=== PATIENT | female | born 1955 | race Caucasian/White ===

== ENCOUNTER → 2017-06-26 15:21 | Outpatient (CLI) | payer OTHER, SELFPAY ==
--- NOTE | 2017-06-26 15:24 | HPBI_ITS ---
MAMMOGRAPHY - BILATERAL SCREENING REASON FOR EXAM: Female, 61 years old. Routine annual screening examination. PERTINENT HISTORY: Non-contributory. TECHNIQUE: Digital bilateral breast jacklyn (3D mammographic acquisition) in the CC and MLO projections. 2-D mediolateral oblique (MLO) and craniocaudad (CC) views of both breasts were obtained. CAD: Full Field Digital Mammography with Computer Added Detection was performed. COMPARISON: Comparison is made with prior study dated June 08, 2016 and May 19, 2015. FINDINGS: Breast Composition: There are scattered areas of fibroglandular density. There are no dominant masses or suspicious calcifications. No other significant abnormalities are identified. There has been no significant change since the prior study. HPBI/SCREENING MAMM (CAD), BILAT IMPRESSION: Stable bilateral screening mammogram. Yearly follow-up mammogram recommended. (A) ASSESSMENT CATEGORY: BIRADS Category 1: Negative. A letter regarding these results will be sent to the patient by the facility within 30 days. Approximately 10% of breast cancers are not detected by mammography. A normal mammogram should not delay biopsy of a clinically suspicious abnormality. [id number] Electronically Signed: Jalen Montgomery MD at 8:07 EST Tel [phone], Service support ,
== END ==
PROVIDERS: Visit Provider Obstetrics & Gynecology
DX: Z12.31 Encounter for screening mammogram for malignant neoplasm of breast (principal)
CPT/HCPCS: 77063; 77067

== ENCOUNTER → 2017-06-29 11:59 | Outpatient (CLI) | payer OTHER, SELFPAY ==
--- NOTE | 2017-06-29 12:02 | RAD_ITS ---
STUDY: X-RAY - UNILATERAL RIBS ( RIGHT ) WITH CHEST REASON FOR EXAM: Female, 61 years old. Right lower anterior rib pain following a fall. TECHNIQUE - RIBS: 4 view(s) of the ribs. TECHNIQUE - CHEST: Single PA view of the chest. COMPARISON: Comparison is made with prior chest radiograph dated October 31, 2014. FINDINGS - RIBS: Normal visualized ribs without a demonstrated fracture. FINDINGS - CHEST: The lungs are clear and expanded. There is no demonstrated pleural abnormality. Normal size heart. Normal mediastinum and lizzy. Normal visualized pulmonary arteries. Normal visualized aortic arch and descending thoracic aorta. Normal visualized thoracic spine. Normal visualized ribs, clavicles, and shoulders. There is no demonstrated abnormality of the visualized soft tissue structures of the upper abdomen. RAD/Ribs Uni Min 3V w/PA Chest IMPRESSION: RIBS: Normal x-ray examination of the ribs. CHEST: Normal x-ray examination of the chest. Electronically Signed: Jalen Montgomery MD at 12:41 EST Tel [phone], Service support ,
--- NOTE | 2017-06-29 12:02 | RAD_ITS ---
STUDY: X-RAY - LEFT TIBIA AND FIBULA REASON FOR EXAM: Female, 61 years old. Pain following a fall. TECHNIQUE: AP and lateral view(s) of the tibia and fibula were obtained. COMPARISON: None. FINDINGS: Normal visualized tibia. Normal visualized fibula. The soft tissue structures are unremarkable. RAD/Tibia & Fibula 2 Views IMPRESSION: Normal x-ray examination of the tibia and fibula. Electronically Signed: Jalen Montgomery MD at 12:40 EST Tel [phone], Service support ,
--- NOTE | 2017-06-29 12:02 | RAD_ITS ---
STUDY: X-RAY - LEFT KNEE REASON FOR EXAM: Female, 61 years old. Pain following a fall. TECHNIQUE: 3 view(s) of the knee. COMPARISON: None. FINDINGS: Normal visualized distal femur. Normal visualized proximal tibia and fibula. Normal proximal tibiofibular articulation. Normal medial femorotibial compartment. Normal lateral femorotibial compartment. Normal patellofemoral articulation. The soft tissue structures are unremarkable. RAD/Knee 3 Views IMPRESSION: Normal x-ray examination of the knee. Electronically Signed: Jalen Montgomery MD at 12:39 EST Tel [phone], Service support ,
== END ==
PROVIDERS: Visit Provider Physician Assistant
DX: S80.02XA Contusion of left knee, initial encounter (principal); S20.211A Contusion of right front wall of thorax, initial encounter; S80.12XA Contusion of left lower leg, initial encounter
CPT/HCPCS: 71101; 73562; 73590

== ENCOUNTER 2017-07-06 06:38 | Emergency (ER) | payer OTHER, SELFPAY ==
[2017-07-06 06:38] VITALS: BP 161/110; PULSE 78; RESP 20; TEMP 36.6; O2SAT 96; BMI 28.0
[2017-07-06] MEDS: Ondansetron 4 MG/2 ML Vial IV (06:57)
--- NOTE | 2017-07-06 06:57 | ED.DCSUM_ITS ---
- ER Visit Summary Date of Service: 07/06/17 Chief Complaint: Pain that she localizes to the right costal margin near the epigastrium that awoke her from sleep at 0100 History of Present Illness: The patient is a 61 F who presents with pain that is localized to the right upper quadrant. It somewhat radiates to the back. She apparently had pork chops last evening. The pain awoke her at 0100. She states that took her breath away. She has no history of PE or DVT. She has no risk factors. She denies any leg pain, swelling discoloration. She does complain of nausea without vomiting diarrhea. She denies fever or chills. She denies cough or dyspnea on exertion. On June 29Monday, she fell forward landing on her outstretched upper extremities and abdomen. This occurred at work. [facility] and had x-rays, which she was told were negative for fracture or any abnormality. She was told every 10 minutes she should rest and she did that for 2 days. She continued to have pain. She now presents because acute severe pain that awoke her from sleep. There is no history of any recent or recurrent trauma. Past medical history of GERD, hypercholesterolemia and depression based on review of records. Past surgical history is remarkable for back ?3 in carpal tunnel. Physical Examination: Patient appears uncomfortable. Blood pressure is 161/ 110. The remainder of her vital signs are markable. She is afebrile. HEENT exam is unremarkable. Heart is regular without murmur, gallop or rub. S1 and S2 are normal. Lungs are clear to auscultation with good movement of air bilaterally. There is no crepitus or subcutaneous air noted. There is no discomfort with AP pressure to the sternum. There is significant tenderness in right upper quadrant with a clinical Stewart sign. There is no CVA tenderness noted. There is no outward signs of trauma i.e. contusion, hematoma, ecchymosis. Nose abdominal surgical scars were noted. There is no asymmetry, swelling, discoloration, leg vein distention, palpable cords or tenderness along the distribution of the deep venous system. Test Results: Pending at the time of this dictation Emergency Department Course and Treatment: IV was established and she was medicated with 4 mg of morphine and 4 mg of Zofran IV push. With history of having pork chops etc. for dinner and the fact that she was awakened at 0100 with severe right upper quadrant pain with radiation towards her back concerned this may represent biliary colic/cholecystitis. Clinically there is no evidence of rib fracture. I.e. crepitus discomfort with AP pressure sternum subcutaneous air etc. Furthermore there is no point rib tenderness to palpation. Will obtain an ultrasound of the right upper quadrant which can evaluate for hepatic injury i.e. laceration hematoma and cholelithiasis. Recent ultrasound was chosen accuracy for cholelithiasis is 95% versus CAT scan which is 75%. And is as accurate/sensitive for hepatic injury. Treatment Plan: The results of laboratory bodies and ultrasound right upper quadrant Disposition: To be determined by oncoming physician, Dr. Justino Tapia Impression: 1. Acute right upper quadrant abdominal pain 2. Recent history of fall and blunt trauma This note was generated with [employer] dictation software. It may contain incorrect words, spelling, and punctuation that were not noted in review of the chart prior to signing ED Disposition - Plan for ED Patient: Chief Complaint: Fall Referrals: Dennis Alvarenga [Primary Care Provider] -
--- NOTE | 2017-07-06 07:01 | US_ITS ---
STUDY: ABDOMINAL ULTRASOUND - RIGHT UPPER QUADRANT REASON FOR VISIT: Female, 61 years old. Right upper quadrant pain. TECHNIQUE: Ultrasound evaluation of the right upper quadrant was performed with real-time and static benítez-scale imaging. TECHNICAL QUALITY: Adequate. COMPARISON: Comparison is made with prior ultrasound of the abdomen dated May 30, 2013. FINDINGS: Liver: The liver measures 16.2 cm. There is increased echogenicity consistent with fatty infiltration. The bile ducts are within normal limits. There is hepatic color flow. The direction of portal flow is hepatopetal. There is no demonstrated mass lesion. Gallbladder: Normal distended gallbladder. The gallbladder wall measures 2.4 mm. There is a negative sonographic Stewart's sign. There is no pericholecystic fluid. There are no gallstones. Common Bile Duct (C.B.D.): The common bile duct is moderately dilated and measures 7.7 mm. Pancreas: Normal size of the head, body of the pancreas. The tail portion is obscured due to overlying bowel gas. There is normal echogenicity of the pancreas. There is no demonstrated pancreatic mass or cyst. Right Kidney: Normal size of the right kidney. The right kidney measures 9.7 cm x 4.9 cm x 6.2 cm. Normal renal cortex. The right cortex measures 1.7 cm. There is no demonstrated renal mass or cyst. There is no right hydronephrosis. US/Gallbladder IMPRESSION: Fatty infiltration of the liver. Minimally dilated common bile duct. Electronically Signed: Jalen Montgomery MD at 8:40 EST Tel [phone], Service support ,
[2017-07-06 07:02] LABS: Absolute Lymphocyte Count 1.77 X10^3/ul (0.83-4.51); Absolute Neutrophil Count 4.3 X10^3/uL (2.0-7.7); Basophil# 0.03 X10^3/uL; Basophil% 0.4 % (0-1); Eosinophil# 0.35 X10^3/uL; Eosinophils% 5.1 % (0-5); Hemoglobin 12.6 g/dl (12.0-15.0); Lymphocyte # 1.77 X10^3/ul (4.0); Lymphocyte % 25.7 % (19-41); Mean Corp Hgb Conc 32.3 g/gl (32-36); Mean Corpuscular Hgb 29.8 pg (27.0-32.0); Mean Corpuscular Volume 92.2 fL (81-99); Monocyte# 0.45 X10^3/uL; Monocyte% 6.5 % (0-10); Neutrophil # 4.29 X10^3/uL (2.7-7.7); Neutrophil % 62.2 % (47-70); Platelet Count 292 K/mm3 (150-450); RBC Distribution Width SD 43.5 fl (35.1-43.9); Red Blood Count 4.23 M/mm3 (4.2-5.4); White Blood Count 6.9 K/mm3 (4.4-11.0)
[2017-07-06 07:03] LABS: POSITIVE COUNT NO; POSITIVE DIFFERENTIAL NO; POSITIVE MORPHOLOGY NO
[2017-07-06 07:18] LABS: AST(SGOT) 21 U/L (15-37); Alanine Aminotransfer ALT/SGPT 21 U/L (13-56); Albumin, Serum 3.3 g/dL (3.2-5.0); Alkaline Phosphatase 119 U/L (45-117); Anion Gap 9 (5-15); BUN 16 mg/dL (7-18); BUN/Creat Ratio 23.3 RATIO (10-20); Bilirubin, Direct 0.11 mg/dL (0.00-0.30); Calcium,Total 8.3 mg/dL (8.5-10.1); Chloride 105 mmol/L (98-107); Creatinine, Serum 0.69 mg/dL (0.55-1.02); EST Glomerular Filtration Rate 92 mL/min (>60); Est Glom Filt Rate - Afr Amer 112 mL/min (>60); Estimated Creatinine Clearance 80.15 ml/min; Glucose 98 mg/dL (74-106); Lipase 176 U/L (73-393); Protein, Total 7.3 g/dL (6.4-8.2); Sodium Level 141 mmol/L (136-145)
[2017-07-06 08:21] VITALS: BP 126/76; PULSE 70; RESP 18; O2SAT 98
--- NOTE | 2017-07-06 08:56 | CT_ITS ---
STUDY: CTA CHEST REASON FOR EXAM: Female, 61 years old. Right-sided chest pain following a recent fall. RADIATION DOSAGE (If Supplied By Facility): CTDIvol = ( 15.35 ) mGy, DLP = ( 851.58 ) mGycm TECHNIQUE: The examination was performed with the intravenous administration of 75CC ml of Isovue 370 contrast material. Post-processing of the angiographic images was performed, with multiplanar reformation and 3D reconstruction. Individualized dose optimization techniques were used for this CT. COMPARISON: None. FINDINGS: Normal enhancement of the main pulmonary artery and right and left pulmonary arteries. Normal enhancement of the bilateral peripheral pulmonary arteries. There is no demonstrated pulmonary embolism. Normal thoracic aorta and visualized great vessels. There is no demonstrated aortic dissection. Normal heart and pericardium. Normal mediastinum. Normal hilar regions. Normal visualized trachea and bronchi. The lungs are well expanded. There is evidence of diffuse emphysematous changes with multiple bullous formation in both lungs. There is evidence of increased markings at the lung bases with evidence of bibasilar coalescence as well as in the posterior aspect of the lingular segment of the left upper lobe suggestive of atelectasis. There is a 5.5 mm noncalcified nodule in the peripheral aspect of the right middle lobe. This is seen on axial image #55. Normal pleura. Normal chest wall structures. There are degenerative changes of thoracic spine. Normal visualized upper abdomen. CT/CTA Chest W/WO Contrast IMPRESSION: Bibasilar atelectasis. Emphysematous changes. 5.5 mm noncalcified nodule in the peripheral aspect of the right middle lobe. Electronically Signed: Jalen Montgomery MD at 9:48 EST Tel [phone], Service support ,
[2017-07-06 08:58] VITALS: O2SAT 96
--- NOTE | 2017-07-06 10:07 | ED.VISSUMM ---
- ER Visit Summary Date of Service: 07/06/17 Chief Complaint: [Addendum to initial dictation by Dr. Flores] History of Present Illness: The patient is a 61 F whose care was turned over to me in the morning awaiting lab results and gallbladder ultrasound results. Patient apparently woke up at 1 AM with discomfort in the upper abdomen and pain that radiated through to her back. Patient tells me that her pain seemed to be worse with breathing and did not hurt as bad if she took small shallow breaths. She denied any nausea or vomiting to me and she denied any fevers. Patient states that she did eat pork chops yesterday for dinner. She is never had problems with her gallbladder. Patient denies any urinary symptoms. She denies recent travel or surgery. Patient does give a history of a fall about a week ago landing on her right ribs. Patient was evaluated with x-rays of her chest and ribs as well as her knees which were unremarkable at that time.] Physical Examination: [HEENT-PERRLA, EOMI. Cranial nerves II through XII grossly intact. TMs clear. Mucous membranes moist. No adenopathy. Cardiovascular-regular rate and rhythm without murmur or ectopy Lungs-clear to auscultation, chest wall stable without crepitus or subcu emphysema. Patient did have some tenderness over the right lower anterior chest wall into the mid axillary line that seems to reproduce most of her pain. Abdomen-normoactive bowel sounds. Patient has minimal tenderness to the right upper quadrant or epigastric area. There is no rebound, rigidity, or perineal signs. Extremities-intact ?4, normal range of motion, normal pulses, atraumatic] Test Results: [CBC with differential was normal. Chemistries unremarkable. LFTs were normal. Lipase was normal. Gallbladder ultrasound showed no evidence of kidney stones she had a minimally dilated common bile duct a 7.7 mm.] CT chest obtained showed no evidence of PE, showed emphysematous changes, nothing else acute. Patient was also incidentally noted to have a 5 mm right middle lobe nodule which patient was made aware of and advised to have it followed up with primary care physician. Emergency Department Course and Treatment: [Patient initially was medicated for pain with by Dr. Flores and on repeat exam her pain is now only about a 2 out of 10.] Treatment Plan: [This point patient will be given a prescription for [place] for pain and advised to follow-up with her primary care physician within the next 3-5 days.] Disposition: [Discharged to home in stable condition] Impression: [Abdominal pain-etiology uncertain Chest wall pain] This note was generated with [employer] dictation software. It may contain incorrect words, spelling, and punctuation that were not noted in review of the chart prior to signing ED Disposition - Plan for ED Patient: Chief Complaint: Fall Referrals: Dennis Alvarenga [Primary Care Provider] -
--- NOTE | 2017-07-06 10:11 | ED.DCSUM_ITS ---
- ER Visit Summary Date of Service: 07/06/17 Chief Complaint: [Addendum to initial dictation by Dr. Flores] History of Present Illness: The patient is a 61 F whose care was turned over to me in the morning awaiting lab results and gallbladder ultrasound results. Patient apparently woke up at 1 AM with discomfort in the upper abdomen and pain that radiated through to her back. Patient tells me that her pain seemed to be worse with breathing and did not hurt as bad if she took small shallow breaths. She denied any nausea or vomiting to me and she denied any fevers. Patient states that she did eat pork chops yesterday for dinner. She is never had problems with her gallbladder. Patient denies any urinary symptoms. She denies recent travel or surgery. Patient does give a history of a fall about a week ago landing on her right ribs. Patient was evaluated with x-rays of her chest and ribs as well as her knees which were unremarkable at that time.] Physical Examination: [HEENT-PERRLA, EOMI. Cranial nerves II through XII grossly intact. TMs clear. Mucous membranes moist. No adenopathy. Cardiovascular-regular rate and rhythm without murmur or ectopy Lungs-clear to auscultation, chest wall stable without crepitus or subcu emphysema. Patient did have some tenderness over the right lower anterior chest wall into the mid axillary line that seems to reproduce most of her pain. Abdomen-normoactive bowel sounds. Patient has minimal tenderness to the right upper quadrant or epigastric area. There is no rebound, rigidity, or perineal signs. Extremities-intact ?4, normal range of motion, normal pulses, atraumatic] Test Results: [CBC with differential was normal. Chemistries unremarkable. LFTs were normal. Lipase was normal. Gallbladder ultrasound showed no evidence of kidney stones she had a minimally dilated common bile duct a 7.7 mm. ] CT chest obtained showed no evidence of PE, showed emphysematous changes, nothing else acute. Patient was also incidentally noted to have a 5 mm right middle lobe nodule which patient was made aware of and advised to have it followed up with primary care physician. Emergency Department Course and Treatment: [Patient initially was medicated for pain with by Dr. Flores and on repeat exam her pain is now only about a 2 out of 10.] Treatment Plan: [This point patient will be given a prescription for [place] for pain and advised to follow-up with her primary care physician within the next 3- 5 days.] Disposition: [Discharged to home in stable condition] Impression: [Abdominal pain-etiology uncertain Chest wall pain] This note was generated with [employer] dictation software. It may contain incorrect words, spelling, and punctuation that were not noted in review of the chart prior to signing ED Disposition - Plan for ED Patient: Chief Complaint: Fall Referrals: Dennis Alvarenga [Primary Care Provider] -
--- NOTE | 2017-07-06 10:11 | ED.DEP ---
ED Disposition - Plan for ED Patient: Chief Complaint: Fall Instructions: ED Abdominal Pain Unkn Cause, ED Chest Pain Costochondritis Prescriptions: Hydrocodone Bitart/Apap 5-325 [[place] 5/325] 1 - 2 tab PO Q4H PRN PRN 3 Days #12 tab PRN Reason: Pain Referrals: Dennis Alvarenga [Primary Care Provider] - 3-5 Days
--- NOTE | 2017-07-06 10:14 | DCINST.ED_ITS ---
ED Disposition - Plan for ED Patient: Chief Complaint: Fall Instructions: ED Abdominal Pain Unkn Cause, ED Chest Pain Costochondritis Prescriptions: Hydrocodone Bitart/Apap 5-325 [[place] 5/325] 1 - 2 tab PO Q4H PRN PRN 3 Days #12 tab PRN Reason: Pain Referrals: Dennis Alvarenga [Primary Care Provider] - 3-5 Days
[2017-07-06 10:16] VITALS: BP 126/85; PULSE 67; RESP 20; O2SAT 97
== END 2017-07-06 10:29 | disposition home or self-care (01) ==
PROVIDERS: Emergency Provider Emergency Medicine
DX: R10.9 Unspecified abdominal pain (principal); R07.89 Other chest pain; R11.0 Nausea; K21.9 Gastro-esophageal reflux disease without esophagitis; E78.00 Pure hypercholesterolemia, unspecified; R91.1 Solitary pulmonary nodule; F32.9 Major depressive disorder, single episode, unspecified; Z87.891 Personal history of nicotine dependence
CPT/HCPCS: 71275; 76705; 80048; 80076; 83690; 85025; 96374; 96375; 99285; Q9967; A4216; J2405

== ENCOUNTER → 2017-08-10 15:46 | Outpatient (CLI) | payer OTHER, SELFPAY ==
--- NOTE | 2017-08-10 15:47 | BD_ITS ---
STUDY: DUAL ENERGY X-RAY ABSORPTIOMETRY / DXA REASON FOR EXAM: Female, 61 years old. Early menopause. Loss of height. TECHNIQUE: Bone Mineral Density (BMD) measurements of lumbar spine and bilateral hips were obtained. COMPARISON: Comparison is made with prior study dated May 19, 2015. FINDINGS: Lumbar Spine (L1-L4): g/cm2 (1.033) / T-score (-1.4) / Z-score (-0.1) Findings are suggestive of osteopenia with a moderate fracture risk. Left Femur Total: g/cm2 (0.842) / T-score (-1.3) / Z-score (-0.3) Left Femoral Neck: g/cm2 (0.814) / T-score (-1.6) / Z-score (-0.3) Right Femur Total: g/cm2 (0.741) / T-score (-2.1) / Z-score (-1.1) Right Femoral Neck: g/cm2 (0.722) / T-score (-2.3) / Z-score (-1.0) The T-Scores on the most recent prior examination were: Lumbar Spine (L1-L4): There has been improvement of bone density since the previous examination. Left Femur Total: which represents an improvement of 3.6%. Right Femur Total: which represents a worsening of 1.1%. BD/Dexa Bone Density Study IMPRESSION: The patient is considered osteopenic as outlined below according to World Naldo Organization (WHO) criteria with a moderate fracture risk. There has been improvement of bone density since the previous examination. Reference Information: The T-score is the number of standard deviations above or below the standard which is normal for young adults at their peak bone mineral density. The World Health Organization (WHO) interprets the T-scores as follows: Above -1 Normal bone density Between -1 and -2.5 Osteopenia Equal to / or below -2.5 Osteoporosis As a practical clinical guideline, osteopenia may be graded as follows: Mild -1 through -1.5 Moderate -1.6 through -2.0 Severe -2.1 through -2.4 The Z-score is the number of standard deviations above or below age-matched controls. A Z-score of less than -1.5 would be considered abnormal. References: 1. NIH Osteoporosis and Related Bone Diseases http://www.osteo.org 2. International Society for Clinical Densitometry http://www.iscd.org 3. National Osteoporosis Foundation http://www.nof.org Electronically Signed: Jalen Montgomery MD at 14:39 EDT Tel [phone], Service support ,
== END ==
DX: M81.0 Age-related osteoporosis without current pathological fracture (principal)
CPT/HCPCS: 77080

== ENCOUNTER → 2017-10-19 07:25 | Outpatient (CLI) | payer OTHER, SELFPAY ==
[2017-10-19 10:32] LABS: ALB/GLOB Ratio 0.8 RATIO (0.9-2.4); AST(SGOT) 20 U/L (15-37); Alanine Aminotransfer ALT/SGPT 28 U/L (13-56); Albumin, Serum 3.4 g/dL (3.2-5.0); Alkaline Phosphatase 111 U/L (45-117); Anion Gap 5 (5-15); BUN 13 mg/dL (7-18); BUN/Creat Ratio 21.1 RATIO (10-20); Calcium,Total 8.6 mg/dL (8.5-10.1); Chloride 107 mmol/L (98-107); Cholesterol 161 mg/dL (200); Creatinine, Serum 0.62 mg/dL (0.55-1.02); EST Glomerular Filtration Rate 104 mL/min (>60); Est Glom Filt Rate - Afr Amer 126 mL/min (>60); Globulin 4.1 g/dL (2.2-4.2); Glucose 83 mg/dL (74-106); High Density Lipoprotein 49 mg/dL; Potassium 3.9 mmol/L (3.5-5.1); Protein, Total 7.5 g/dL (6.4-8.2); Sodium Level 143 mmol/L (136-145); Triglycerides 119 mg/dL; Very Low Density Lipoprotein 24 mg/dL (5-40)
[2017-10-20 08:22] LABS: Vitamin D,25 Hydroxy 70.6 ng/mL (29.95-100.01)
== END ==
PROVIDERS: Visit Provider Family Medicine
DX: E78.00 Pure hypercholesterolemia, unspecified (principal); K21.9 Gastro-esophageal reflux disease without esophagitis; E55.9 Vitamin D deficiency, unspecified
CPT/HCPCS: 36415; 80053; 80061; 82306

== ENCOUNTER → 2018-01-09 13:41 | Outpatient (CLI) | payer OTHER, SELFPAY | PROVIDERS: Visit Provider Internal Medicine Pulmonary Disease | DX: R91.1 Solitary pulmonary nodule (principal) | CPT/HCPCS: 71250 ==

== ENCOUNTER → 2018-05-22 15:20 | Outpatient (CLI) | payer OTHER, SELFPAY ==
[2018-05-25 09:41] LABS: HPV Reflexed? NOT INDICATED
== END ==
PROVIDERS: Visit Provider Obstetrics & Gynecology
DX: Z12.4 Encounter for screening for malignant neoplasm of cervix (principal)
CPT/HCPCS: 88175; G0145

== ENCOUNTER 2018-10-30 10:07 | Emergency (ER) | payer OTHER, SELFPAY ==
[2018-10-30 09:54] VITALS: BMI 28.0
[2018-10-30 10:08] VITALS: BP 136/90; PULSE 93; RESP 16; TEMP 36.5; O2SAT 98; BMI 30.4
[2018-10-30] MEDS: Ondansetron 4 MG/2 ML Vial IV (10:40)
[2018-10-30] MEDS: 0.9% Normal Saline 1,000 ML 150 ML IV (10:40)
[2018-10-30] MEDS: Morphine 4 MG/ML Syringe IV (10:40)
[2018-10-30 10:42] VITALS: BP 150/93; PULSE 72; RESP 16; TEMP 36.8; O2SAT 95
[2018-10-30 10:59] LABS: Absolute Lymphocyte Count 1.74 X10^3/ul (0.83-4.51); Absolute Neutrophil Count 4.6 X10^3/uL (2.0-7.7); Basophil# 0.01 X10^3/uL; Basophil% 0.1 % (0-1); Eosinophil# 0.32 X10^3/uL; Eosinophils% 4.5 % (0-5); Hematocrit 41.4 % (37-47); Hemoglobin 13.7 g/dl (12.0-15.0); Lymphocyte # 1.74 X10^3/ul (4.0); Lymphocyte % 24.5 % (19-41); Mean Corp Hgb Conc 33.1 g/gl (32-36); Mean Corpuscular Hgb 29.7 pg (27.0-32.0); Mean Corpuscular Volume 89.6 fL (81-99); Monocyte# 0.39 X10^3/uL; Monocyte% 5.5 % (0-10); Neutrophil # 4.64 X10^3/uL (2.7-7.7); Neutrophil % 65.3 % (47-70); Platelet Count 280 K/mm3 (150-450); RBC Distribution Width CV 13.7 % (11.6-14.6); Red Blood Count 4.62 M/mm3 (4.2-5.4); White Blood Count 7.1 K/mm3 (4.4-11.0)
[2018-10-30 11:00] LABS: POSITIVE COUNT NO; POSITIVE DIFFERENTIAL NO; POSITIVE MORPHOLOGY NO
[2018-10-30 11:14] LABS: AST(SGOT) 19 U/L (15-37); Alanine Aminotransfer ALT/SGPT 24 U/L (13-56); Albumin, Serum 3.4 g/dL (3.2-5.0); Alkaline Phosphatase 120 U/L (45-117); Anion Gap 5 (5-15); BUN 9 mg/dL (7-18); BUN/Creat Ratio 13.2 RATIO (10-20); Bilirubin, Direct 0.11 mg/dL (0.00-0.30); Calcium,Total 9.5 mg/dL (8.5-10.1); Chloride 106 mmol/L (98-107); Creatinine, Serum 0.68 mg/dL (0.55-1.02); EST Glomerular Filtration Rate 93 mL/min (>60); Est Glom Filt Rate - Afr Amer 112 mL/min (>60); Estimated Creatinine Clearance 79.27 ml/min; Glucose 98 mg/dL (74-106); Lipase 82 U/L (73-393); Potassium 3.5 mmol/L (3.5-5.1); Protein, Total 7.4 g/dL (6.4-8.2); Sodium Level 141 mmol/L (136-145)
[2018-10-30 11:24] LABS: Lactic Acid 0.6 mmol/L (0.4-2.0)
[2018-10-30 12:35] LABS: Mucous, Urine 0 SEEN /hpf (<or=2+); Red Blood Cells-Urine 0 SEEN /hpf (0-5)
[2018-10-30 12:39] LABS: Color, Urine Yellow (Yellow); Glucose, Dipstick Normal (Normal); Ketone-Dipstick Negative (Negative); Leukocyte Esterase-Dipstick 500 /ul (Negative); Nitrite-Dipstick Negative (Negative); Occult Blood-Urine Negative /ul (Negative); Protein-Dipstick Negative (Negative); Urine Bilirubin Dipstick Negative (Negative); Urine Clarity Sl. Cloudy (Clear); Urine Urobilinogen Normal (Normal)
[2018-10-30 12:51] LABS: Bacteria RARE /hpf (None Seen); Squamous Epithelial Cells - UA 0-5 SEEN /hpf (5-10); White Blood Cells 0-5 SEEN /hpf (0-5)
--- NOTE | 2018-10-30 12:53 | CT_ITS ---
STUDY: CT ABDOMEN AND PELVIS WITH CONTRAST REASON FOR EXAM: Female, 63 years old. Diffuse abdominal pain RADIATION DOSAGE (If Supplied By Facility): CTDIvol = ( 16.49 ) mGy, DLP = ( 992.28 ) mGycm TECHNIQUE: Transaxial images were obtained from the dome of the diaphragm to the symphysis pubis without oral contrast. 100mL IV/Oral Isovue 300 was administered. Sagittal and coronal images were reconstructed. Individualized dose optimization techniques were used for this CT. COMPARISON: Chest CTA 07/06/2017. FINDINGS: 4 mm right middle lobe nodule on series 2 image 10, unchanged since July 2017. The visualized portions of the heart are within normal limits. Normal liver. Normal gallbladder and extrahepatic biliary system. There is mild splenomegaly measuring up to 13 cm. Normal pancreas. There is an indeterminate 1.5 cm left adrenal gland nodule in the lateral and a indeterminate 1.7 x 1.3 cm medial limb nodule. Normal right adrenal gland. There are bilateral renal hypodense lesions too small to characterize. No hydronephrosis. Normal visualized stomach. Normal small intestine. There is wall thickening and mild pericolonic stranding of the mid and distal descending colon and proximal sigmoid colon. Remaining bowel loops are unremarkable. No bowel obstruction.. There is non-visualization of the appendix. There is diffuse atherosclerotic calcification of the abdominal aorta, without a demonstrated aneurysm. Normal inferior vena cava. Normal retroperitoneum. There are a few shotty mesenteric lymph nodes and mild mesenteric stranding, likely reactive. The urinary bladder is underdistended. Normal abdominal wall. There is posterior fusion of the L4 and L5 vertebral bodies. Grade 1 anterolisthesis of L4 on L5. There is mild collapse of the T12 superior endplate of uncertain chronicity. Multilevel degenerative disc disease. Thoracolumbar scoliosis. CT/Abdomen/Pelvis WITH Contrast IMPRESSION: 1. Wall thickening and mild pericolonic stranding of the mid and distal descending colon and proximal sigmoid colon in keeping with colitis. No bowel obstruction. 2. Few shotty mesenteric lymph nodes are likely reactive. 3. There are indeterminate left adrenal gland nodules. Multiphase CT or MRI with adrenal protocol can be obtained for further characterization. 4. Stable 4 mm right middle lobe nodule. If High risk for developing pulmonary malignancy continued annual chest CT is recommended. If low risk, no follow-up is recommended. 5. There is mild collapse of the T12 superior endplate of uncertain chronicity. 6. Remaining chronic findings are described above. Electronically Signed: Beba Daniels, at 13:32 EDT Tel , Service support ,
[2018-10-30 13:20] VITALS: BP 133/89; PULSE 65; RESP 16; O2SAT 98
[2018-10-30 13:23] VITALS: TEMP 36.5
--- NOTE | 2018-10-30 14:48 | ED.DCSUM_ITS ---
- ER Visit Summary Date of Service: 10/30/18 Chief Complaint: Abdominal pain History of Present Illness: The patient is a 63 F whose had intermittent sharp abdominal pain for the past 2 days. She reports having diarrhea once on the . She passed some blood and mucus yesterday. She denies fever. She does report a history of IBS but has very rare flareups. Physical Examination: Vital signs unremarkable. She is afebrile. Patient is in no acute distress and is nontoxic appearing. Head and neck examination is normal. Heart is regular rate and rhythm. Palpable pulses are noted throughout. Lungs are clear with good air movement throughout. Abdomen is soft with mid abdominal tenderness. No guarding or rebound. Hypoactive bowel sounds are noted. Extremity examination is unremarkable with full range of motion. Neurologic examination reveals no focal deficits. Test Results: CBC and chemistry studies normal. Urinalysis shows no acute infection. LFTs revealed alk phos of [address] abdomen pelvis with contrast reveals wall thickening and mild pericolonic stranding of the mid to distal descending and sigmoid colon. Emergency Department Course and Treatment: Patient was initially given morphine and Zofran for pain along with IV fluids. Test results were discussed with the patient. She will be treated with a course of Cipro and Flagyl. Treatment Plan: [] Disposition: Discharge Impression: Colitis This note was generated with [employer]PT. dictation software. It may contain incorrect words, spelling, and punctuation that were not noted in review of the chart prior to signing ED Disposition - Plan for ED Patient: Disposition: Home or Assisted Living Prescriptions: Ciprofloxacin [Cipro] 500 mg PO BID #14 tablet metroNIDAZOLE [Flagyl] 500 mg PO Q6H #40 tablet Referrals: Dennis Alvarenga MD [Primary Care Provider] - 1 Week Additional Instructions: Your CT scan reveals signs of colitis, or inflammation and swelling of the intestine. Complete the full course of antibiotics. Return for worsening pain, fever, or if you have any other concerns.
[2018-10-30] MEDS: metroNIDAZOLE 500 MG Tablet PO (14:53)
[2018-10-30] MEDS: Ciprofloxacin 500 MG Tablet PO (14:53)
[2018-10-30 14:59] VITALS: BP 121/74; PULSE 62; RESP 15; O2SAT 98
== END 2018-10-30 15:00 | disposition home or self-care (01) ==
PROVIDERS: Emergency Provider Emergency Medicine; Family Provider Family Medicine; PCP Family Medicine
DX: K52.9 Noninfective gastroenteritis and colitis, unspecified (principal); Z87.891 Personal history of nicotine dependence
CPT/HCPCS: 74177; 80048; 80076; 81001; 83605; 83690; 85025; 96361; 96374; 96375; 99284; J7030; Q9967; A4216; J2405

== ENCOUNTER → 2018-11-16 14:15 | Outpatient (CLI) | payer OTHER, SELFPAY ==
[2018-10-30 10:08] VITALS: BMI 30.4
--- NOTE | 2018-11-16 14:19 | RAD_ITS ---
STUDY: X-RAY - PELVIS REASON FOR EXAM: Female, 63 years old. Polyarthropathy TECHNIQUE: One view of the pelvis was obtained. COMPARISON: None. FINDINGS: There is a non-specific bowel gas pattern. Normal visualized soft tissue structures. There is a spinal fusion at L4-L5 with laminectomy. Normal bilateral iliac wings, sacroiliac joints and visualized sacrum. Normal visualized bilateral superior and inferior pubic rami. There are degenerative changes of the pubic symphysis with articular narrowing and sclerosis. Normal ischial tuberosities. Normal visualized right femoral head. Normal right acetabulum. Normal right hip joint. Normal visualized left femoral head. Normal left acetabulum. Normal left hip joint. There is minimal calcific density at the level of the greater trochanter suggesting ligamentous calcification. RAD/Pelvis 1 or 2 Views IMPRESSION: Spinal fusion L4-L5 laminectomy. Minimal degenerative change. Electronically Signed: Katrina Hedrick MD at 17:27 EDT Tel , Service support ,
[2018-11-16 15:47] LABS: Absolute Lymphocyte Count 2.08 X10^3/ul (0.83-4.51); Basophil# 0.03 X10^3/uL; Basophil% 0.4 % (0-1); Eosinophil# 0.39 X10^3/uL; Eosinophils% 5.6 % (0-5); Hemoglobin 12.9 g/dl (12.0-15.0); Lymphocyte # 2.08 X10^3/ul (4.0); Lymphocyte % 29.7 % (19-41); Mean Corp Hgb Conc 32.3 g/gl (32-36); Mean Corpuscular Volume 89.9 fL (81-99); Mean Platelet Vol. 10.5 fl (6.2-12.0); Monocyte# 0.47 X10^3/uL; Monocyte% 6.7 % (0-10); Neutrophil # 4.02 X10^3/uL (2.7-7.7); Neutrophil % 57.5 % (47-70); Platelet Count 310 K/mm3 (150-450); RBC Distribution Width CV 13.8 % (11.6-14.6); Red Blood Count 4.45 M/mm3 (4.2-5.4)
[2018-11-16 15:53] LABS: POSITIVE COUNT NO; POSITIVE DIFFERENTIAL NO; POSITIVE MORPHOLOGY NO
[2018-11-16 16:13] LABS: ALB/GLOB Ratio 0.8 RATIO (0.9-2.4); AST(SGOT) 18 U/L (15-37); Alanine Aminotransfer ALT/SGPT 24 U/L (13-56); Albumin, Serum 3.4 g/dL (3.2-5.0); Alkaline Phosphatase 114 U/L (45-117); Anion Gap 5 (5-15); BUN 14 mg/dL (7-18); BUN/Creat Ratio 21.1 RATIO (10-20); CRP 8.35 mg/L (0.0-3.0); Calcium,Total 8.9 mg/dL (8.5-10.1); Chloride 106 mmol/L (98-107); Creatinine, Serum 0.66 mg/dL (0.55-1.02); EST Glomerular Filtration Rate 96 mL/min (>60); Est Glom Filt Rate - Afr Amer 116 mL/min (>60); Globulin 4.3 g/dL (2.2-4.2); Glucose 80 mg/dL (74-106); Protein, Total 7.7 g/dL (6.4-8.2); Rheumatoid Factor < 10.0 IU/mL (<15); Sodium Level 141 mmol/L (136-145)
[2018-11-16 16:18] LABS: Erythrocyte Sedimentation Rate 12 mm/hr (0-30)
[2018-11-19 09:51] LABS: Hepatitis B Surface Antibody Non-Reactive; Hepatitis B Surface Antigen Non-Reactive (Nonreactive); Hepatitis C Antibody Non-Reactive (Nonreactive)
[2018-11-20 12:20] LABS: ANTINUCLEAR ANTIBODIES DIRECT Negative (Negative)
[2018-11-22 11:32] LABS: CCP IgG Antibodies 7 units (0-19); HLA B27 Negative (.); Hepatitis B Core AB IgM Negative (Negative)
== END ==
PROVIDERS: Family Provider Family Medicine; PCP Family Medicine; Referring Provider Internal Medicine Rheumatology; Visit Provider Internal Medicine Rheumatology
DX: M06.4 Inflammatory polyarthropathy (principal); M15.9 Polyosteoarthritis, unspecified; K21.9 Gastro-esophageal reflux disease without esophagitis; J44.9 Chronic obstructive pulmonary disease, unspecified; M81.0 Age-related osteoporosis without current pathological fracture; K52.839 Microscopic colitis, unspecified; E78.5 Hyperlipidemia, unspecified
CPT/HCPCS: 36415; 72170; 80053; 81374; 85025; 85652; 86038; 86140; 86200; 86431; 86705; 86706; 86803; 87340

== ENCOUNTER → 2019-01-09 12:46 | Outpatient (CLI) | payer OTHER, SELFPAY ==
[2019-01-03 15:06] VITALS: BMI 30.4
--- NOTE | 2019-01-09 12:54 | CT_ITS ---
STUDY: CT CHEST/THORAX WITHOUT CONTRAST REASON FOR EXAM: Female, 63 years old. Lung nodule. RADIATION DOSAGE (If Supplied By Facility): CTDIvol = ( 13.17 ) mGy, DLP = ( 371.92 ) mGycm TECHNIQUE: Transaxial imaging was performed without the administration of intravenous contrast material. Multiplanar coronal and sagittal images were reformatted. Individualized dose optimization techniques were used for this CT. COMPARISON: CT chest without contrast January 09, 2018. FINDINGS: 4.5 mm noncalcified nodule in the inferolateral periphery of the right middle lobe on series 4 image 64, series 602 image 114 is unchanged. Intralobular emphysematous changes again seen predominantly in the apices. Stable calcified granuloma or perivascular calcification in the anterior inferolateral left lower lobe on series 4 image 67, series 602 image 127. No new infiltrate. There is no demonstrated pleural abnormality. Normal heart and pericardium. 1.75 x 1.3 x 1.15 cm right precarinal lymph node is increased in size, but also roughly maintains a fatty hilum, suggesting this is reactive. There is a stable 1 cm lymph node in the posterior aorticopulmonary window. No new adenopathy Normal hilar regions. Normal unenhanced pulmonary arteries. Stable calcification of the aortic valve annulus. There is stable mild atherosclerotic calcification of the aortic arch. There are stable multi-level degenerative changes of the thoracic spine. There is stable mild left lateral wedging at T9 and a 22 degree dextroscoliosis at that level. Stable fracture deformity at the superior T12 vertebral endplate, including a well-corticated, rounded right-sided endplate invagination that may be a benign Schmorl's node. There are stable degenerative changes at the bilateral glenohumeral articulations. There is stable 1.95 x 1.2 cm ovoid fullness of the posterior limb of the left adrenal gland, possibly an adenoma CT/Chest without Contrast IMPRESSION: 1. Stable sub-6 mm mm noncalcified nodule in the right middle lobe. Per Fleischner criteria, this does not require any further radiographic follow-up. 2. Emphysematous changes again seen as well. 3. 1.75 cm right precarinal lymph node is increased in size, but maintains some benign character and may be reactive. No other new adenopathy. 4. Stable left lateral wedging of T9 and patient's scoliosis at that level. There is also stable fracture deformity of the superior T12 vertebral endplate. Degenerative changes of the glenohumeral joint also again noted. 5. Stable 1.95 cm fullness of the posterior limb of the left adrenal gland. Electronically Signed: Bernard Castro MD at 16:38 EDT , Service support ,
== END ==
PROVIDERS: Family Provider Family Medicine; PCP Family Medicine; Referring Provider Internal Medicine Pulmonary Disease; Visit Provider Internal Medicine Pulmonary Disease
DX: R91.1 Solitary pulmonary nodule (principal)
CPT/HCPCS: 71250

== ENCOUNTER → 2019-02-05 15:26 | Outpatient (CLI) | payer OTHER, SELFPAY ==
[2019-01-03 15:06] VITALS: BMI 30.4
[2019-02-05 17:53] LABS: Absolute Lymphocyte Count 2.99 X10^3/uL (0.83-4.51); Basophil# 0.04 X10^3/uL; Basophil% 0.4 % (0-1); Eosinophil# 0.17 X10^3/uL; Eosinophils% 1.8 % (0-5); Hematocrit 41.8 % (37-47); Hemoglobin 13.2 g/dL (12.0-15.0); Lymphocyte # 2.99 X10^3/ul (4.0); Lymphocyte % 30.8 % (19-41); Mean Corp Hgb Conc 31.6 g/dL (32-36); Mean Corpuscular Hgb 29.7 pg (27.0-32.0); Mean Corpuscular Volume 94.1 fL (81-99); Mean Platelet Vol. 10.3 fl (6.2-12.0); Monocyte# 0.47 X10^3/uL; Monocyte% 4.8 % (0-10); NRBC Flagged by Analyzer 0 % (0-5); Neutrophil # 5.98 X10^3/uL (2.7-7.7); Neutrophil % 61.7 % (47-70); Platelet Count 301 K/mm3 (150-450); RBC Distribution Width CV 14.6 % (11.6-14.6); Red Blood Count 4.44 M/mm3 (4.2-5.4); White Blood Count 9.7 K/mm3 (4.4-11.0)
[2019-02-05 17:57] LABS: AST(SGOT) 14 U/L (15-37); Alanine Aminotransfer ALT/SGPT 26 U/L (13-56); Albumin, Serum 3.6 g/dL (3.2-5.0); Alkaline Phosphatase 94 U/L (45-117); Anion Gap 9 (5-15); BUN 26 mg/dL (7-18); BUN/Creat Ratio 31.3 RATIO (10-20); Calcium,Total 9.4 mg/dL (8.5-10.1); Chloride 101 mmol/L (98-107); Creatinine, Serum 0.83 mg/dL (0.55-1.02); EST Glomerular Filtration Rate 74 mL/min (>60); Est Glom Filt Rate - Afr Amer 89 mL/min (>60); Globulin 3.6 g/dL (2.2-4.2); Glucose 96 mg/dL (74-106); Potassium 4.3 mmol/L (3.5-5.1); Protein, Total 7.2 g/dL (6.4-8.2); Sodium Level 140 mmol/L (136-145)
== END ==
PROVIDERS: Family Provider Family Medicine; PCP Family Medicine; Referring Provider Internal Medicine Rheumatology; Visit Provider Internal Medicine Rheumatology
DX: M06.4 Inflammatory polyarthropathy (principal); Z79.899 Other long term (current) drug therapy; K21.9 Gastro-esophageal reflux disease without esophagitis; M15.9 Polyosteoarthritis, unspecified; J44.9 Chronic obstructive pulmonary disease, unspecified; M81.0 Age-related osteoporosis without current pathological fracture; K52.839 Microscopic colitis, unspecified; E78.5 Hyperlipidemia, unspecified
CPT/HCPCS: 36415; 80053; 85025

== ENCOUNTER → 2019-03-18 15:30 | Outpatient (CLI) | payer OTHER, SELFPAY ==
[2019-01-03 15:06] VITALS: BMI 30.4
--- NOTE | 2019-03-18 15:32 | BI_ITS ---
MAMMOGRAPHY - BILATERAL SCREENING REASON FOR EXAM: Female, 63 years old. Routine annual screening examination. PERTINENT HISTORY: Non-contributory. TECHNIQUE: Digital bilateral breast obie (3D mammographic acquisition) in the CC and MLO projections. 2-D mediolateral oblique (MLO) and craniocaudad (CC) views of both breasts were obtained. CAD: Full Field Digital Mammography with Computer Added Detection was performed. COMPARISON: Comparison is made with prior examination dated June 26, 2017 and June 08, 2016. FINDINGS: Breast Composition: There are scattered areas of fibroglandular density. There are no dominant masses or suspicious calcifications. Stable small benign-appearing bilateral axillary lymph nodes. No other significant abnormalities are identified. There has been no significant change since the prior study. BI/SCREEN MAMM (CAD) W/OBIE BILAT IMPRESSION: Stable bilateral screening mammogram. Yearly follow-up mammogram recommended. (A) ASSESSMENT CATEGORY: BIRADS Category 2: Benign. A letter regarding these results will be sent to the patient by the facility within 30 days. Approximately 10% of breast cancers are not detected by mammography. A normal mammogram should not delay biopsy of a clinically suspicious abnormality. [id number] Electronically Signed: Jalen Montgomery, at 8:30 EST , Service support ,
== END ==
PROVIDERS: Family Provider Family Medicine; PCP Family Medicine; Referring Provider Obstetrics & Gynecology; Visit Provider Obstetrics & Gynecology
DX: Z12.31 Encounter for screening mammogram for malignant neoplasm of breast (principal)
CPT/HCPCS: 77063; 77067

== ENCOUNTER → 2019-04-24 16:53 | Outpatient (CLI) | payer OTHER, SELFPAY ==
[2019-01-03 15:06] VITALS: BMI 30.4
--- NOTE | 2019-04-24 16:59 | CT_ITS ---
STUDY: CT BRAIN WITHOUT CONTRAST REASON FOR EXAM: Female, 63 years old. Right facial palsy RADIATION DOSAGE (If Supplied By Facility): CTDIvol = ( 60.81 ) mGy, DLP = ( 998.67 ) mGycm TECHNIQUE: Transaxial CT imaging of the brain was performed without administration of intravenous contrast material. Individualized dose optimization techniques were used for this CT. COMPARISON: No relevant priors. FINDINGS: Normal soft tissue structures. Normal calvarium. Normal size ventricles and extra-axial spaces for the patient''s age. Mild periventricular white matter ischemic changes. Normal basal ganglia and thalami. Normal brainstem. Normal cerebellum. There is no intracranial hemorrhage. There are no findings of an acute ischemic infarction. Normal visualized paranasal sinuses. CT/Brain/Head without Contrast IMPRESSION: Mild periventricular white matter ischemic changes. No evidence for acute bleed. If concern for acute infarct MRI recommended Electronically Signed: Sohan Cope MD at 20:04 EST , Service support ,
== END ==
PROVIDERS: Family Provider Family Medicine; PCP Family Medicine; Referring Provider Family Medicine; Visit Provider Family Medicine
DX: G51.0 Bell's palsy (principal)
CPT/HCPCS: 70450

== ENCOUNTER → 2019-05-06 15:23 | Outpatient (CLI) | payer OTHER, SELFPAY ==
[2019-04-30 12:30] VITALS: BMI 30.4
[2019-05-06 18:04] LABS: Absolute Lymphocyte Count 2.42 X10^3/uL (0.83-4.51); Absolute Neutrophil Count 3.8 X10^3/uL (2.0-7.7); Basophil# 0.04 X10^3/uL; Basophil% 0.6 % (0-1); Eosinophil# 0.27 X10^3/uL; Eosinophils% 3.9 % (0-5); Hematocrit 39.3 % (37-47); Hemoglobin 12.7 g/dL (12.0-15.0); Lymphocyte # 2.42 X10^3/ul (4.0); Lymphocyte % 34.6 % (19-41); Mean Corp Hgb Conc 32.3 g/dL (32-36); Mean Corpuscular Hgb 30.1 pg (27.0-32.0); Mean Corpuscular Volume 93.1 fL (81-99); Mean Platelet Vol. 10.1 fl (6.2-12.0); Monocyte# 0.47 X10^3/uL; Monocyte% 6.7 % (0-10); NRBC Flagged by Analyzer 0 % (0-5); Neutrophil # 3.75 X10^3/uL (2.7-7.7); Neutrophil % 53.6 % (47-70); Platelet Count 330 K/mm3 (150-450); RBC Distribution Width CV 13.9 % (11.6-14.6); RBC Distribution Width SD 47.5 fl (35.1-43.9); Red Blood Count 4.22 M/mm3 (4.2-5.4)
[2019-05-06 18:12] LABS: AST(SGOT) 14 U/L (15-37); Alanine Aminotransfer ALT/SGPT 25 U/L (13-56); Albumin, Serum 3.8 g/dL (3.2-5.0); Alkaline Phosphatase 118 U/L (45-117); Anion Gap 6 (5-15); BUN 16 mg/dL (7-18); Calcium,Total 9.1 mg/dL (8.5-10.1); Chloride 104 mmol/L (98-107); Creatinine, Serum 0.76 mg/dL (0.55-1.02); EST Glomerular Filtration Rate 81 mL/min (>60); Est Glom Filt Rate - Afr Amer 98 mL/min (>60); Globulin 3.7 g/dL (2.2-4.2); Glucose 78 mg/dL (74-106); Potassium 3.8 mmol/L (3.5-5.1); Protein, Total 7.5 g/dL (6.4-8.2); Sodium Level 139 mmol/L (136-145)
== END ==
PROVIDERS: Family Provider Family Medicine; PCP Family Medicine; Referring Provider Internal Medicine Rheumatology; Visit Provider Internal Medicine Rheumatology
DX: M06.4 Inflammatory polyarthropathy (principal); M15.9 Polyosteoarthritis, unspecified; K21.9 Gastro-esophageal reflux disease without esophagitis; J44.9 Chronic obstructive pulmonary disease, unspecified; M81.0 Age-related osteoporosis without current pathological fracture; K52.839 Microscopic colitis, unspecified; E78.5 Hyperlipidemia, unspecified; Z79.899 Other long term (current) drug therapy
CPT/HCPCS: 36415; 80053; 85025

== ENCOUNTER → 2019-06-21 08:22 | Outpatient (CLI) | payer OTHER, SELFPAY ==
[2019-04-30 12:30] VITALS: BMI 30.4
[2019-06-21 10:06] LABS: Absolute Neutrophil Count 2.8 X10^3/uL (2.0-7.7); Basophil# 0.04 X10^3/uL; Basophil% 0.7 % (0-1); Eosinophil# 0.42 X10^3/uL; Eosinophils% 7.7 % (0-5); Hematocrit 43.1 % (37-47); Hemoglobin 13.3 g/dL (12.0-15.0); Lymphocyte % 32.8 % (19-41); Mean Corp Hgb Conc 30.9 g/dL (32-36); Mean Corpuscular Hgb 28.9 pg (27.0-32.0); Mean Corpuscular Volume 93.5 fL (81-99); Mean Platelet Vol. 10.5 fl (6.2-12.0); Monocyte# 0.41 X10^3/uL; Monocyte% 7.5 % (0-10); NRBC Flagged by Analyzer 0 % (0-5); Neutrophil % 51.1 % (47-70); Platelet Count 313 K/mm3 (150-450); RBC Distribution Width CV 13.9 % (11.6-14.6); RBC Distribution Width SD 47.6 fl (35.1-43.9); Red Blood Count 4.61 M/mm3 (4.2-5.4); White Blood Count 5.5 K/mm3 (4.4-11.0)
[2019-06-21 10:13] LABS: Color, Urine Yellow (Yellow); Glucose, Dipstick Normal (Normal); Ketone-Dipstick Negative (Negative); Leukocyte Esterase-Dipstick 500 /ul (Negative); Nitrite-Dipstick Negative (Negative); Occult Blood-Urine Negative /ul (Negative); Protein-Dipstick Negative (Negative); Specific Gravity, Urine 1.005 (1.002-1.030); Urine Bilirubin Dipstick Negative (Negative); Urine Clarity Clear (Clear); Urine Urobilinogen Normal (Normal)
[2019-06-21 10:26] LABS: ALB/GLOB Ratio 0.8 RATIO (0.9-2.4); AST(SGOT) 22 U/L (15-37); Alanine Aminotransfer ALT/SGPT 26 U/L (13-56); Albumin, Serum 3.6 g/dL (3.2-5.0); Alkaline Phosphatase 106 U/L (45-117); Anion Gap 5 (5-15); BUN 11 mg/dL (7-18); BUN/Creat Ratio 16.9 RATIO (10-20); Calcium,Total 9.3 mg/dL (8.5-10.1); Chloride 106 mmol/L (98-107); Cholesterol 175 mg/dL (200); Creatinine, Serum 0.65 mg/dL (0.55-1.02); EST Glomerular Filtration Rate 98 mL/min (>60); Est Glom Filt Rate - Afr Amer 118 mL/min (>60); Globulin 4.3 g/dL (2.2-4.2); Glucose 89 mg/dL (74-106); High Density Lipoprotein 55 mg/dL; Potassium 4.1 mmol/L (3.5-5.1); Protein, Total 7.9 g/dL (6.4-8.2); Sodium Level 140 mmol/L (136-145); Triglycerides 127 mg/dL; Very Low Density Lipoprotein 25 mg/dL (5-40)
[2019-06-21 10:31] LABS: Vitamin D,25 Hydroxy 33.4 ng/mL (29.95-100.01)
== END ==
PROVIDERS: PCP Family Medicine; Referring Provider Family Medicine; Visit Provider Family Medicine
DX: Z00.00 Encounter for general adult medical examination without abnormal findings (principal); E78.00 Pure hypercholesterolemia, unspecified; E55.9 Vitamin D deficiency, unspecified
CPT/HCPCS: 36415; 80053; 80061; 81002; 82306; 85025

== ENCOUNTER → 2019-10-25 | Outpatient (CLI) | payer OTHER, SELFPAY ==
[2019-04-30 12:30] VITALS: BMI 30.4
[2019-10-25 10:41] LABS: AST(SGOT) 19 U/L (15-37); Alanine Aminotransfer ALT/SGPT 22 U/L (13-56); Albumin, Serum 3.6 g/dL (3.2-5.0); Alkaline Phosphatase 128 U/L (45-117); Bilirubin, Direct 0.13 mg/dL (0.00-0.30); Cholesterol 174 mg/dL (200); Globulin 4.3 g/dL (2.2-4.2); High Density Lipoprotein 56 mg/dL; Protein, Total 7.9 g/dL (6.4-8.2); Triglycerides 130 mg/dL; Very Low Density Lipoprotein 26 mg/dL (5-40)
== END | disposition home or self-care (01) ==
LOC: MTLAB 08:42
PROVIDERS: PCP Family Medicine; Referring Provider Family Medicine; Visit Provider Family Medicine
DX: E78.00 Pure hypercholesterolemia, unspecified (principal)
CPT/HCPCS: 36415; 80061; 80076

== ENCOUNTER → 2020-01-10 12:52 | Outpatient (CLI) | payer OTHER, SELFPAY ==
[2019-04-30 12:30] VITALS: BMI 30.4
--- NOTE | 2020-01-10 12:57 | CT_ITS ---
STUDY: CT CHEST WITHOUT CONTRAST REASON FOR EXAM: Female, 64 years old. NODULE F/U. RADIATION DOSAGE (If Supplied By Facility): CTDIvol = ( 11.85 ) mGy, DLP = ( 376.08 ) mGycm TECHNIQUE: Transaxial imaging was performed without the administration of intravenous contrast material. Multiplanar coronal and sagittal images were reformatted. Individualized dose optimization techniques were used for this CT. COMPARISON: Comparison is made with prior study dated 01/09/2019. FINDINGS: Stable 7.6 mm calcified nodule in the midportion of the right lobe of the thyroid. Stable small benign-appearing bilateral axillary lymph nodes. Mild degree of emphysematous changes in both upper lobes. There is a new 1.1 cm nodule in the peripheral lateral aspect of the right lower lobe adjacent to the pleural surface and anterior aspect of the right lobe of the liver. This is seen on axial image #62. There is no demonstrated pleural abnormality. There are calcifications of the coronary arteries. There is a 1.8 cm lymph node in the right precarinal space. This is unchanged. Stable 1 cm lymph node in the posterior aspect of the aortopulmonary window. Normal hilar regions. Normal unenhanced pulmonary arteries. There is atherosclerotic calcification of the aortic arch . There are degenerative changes of the thoracic spine. Stable 1.2 cm x 1.9 cm left adrenal adenoma. CT/Chest without Contrast IMPRESSION: There is a new 1.1 cm nodule in the lateral aspect of the right lower lobe adjacent to the anterior aspect of the right lobe of the liver as seen on axial image #62. Correlation with a PET scan is recommended. Electronically Signed: Jalen Montgomery, at 13:45 EDT , Service support ,
== END ==
PROVIDERS: Family Provider Family Medicine; PCP Family Medicine; Referring Provider Internal Medicine Pulmonary Disease; Visit Provider Internal Medicine Pulmonary Disease
DX: R91.1 Solitary pulmonary nodule (principal)
CPT/HCPCS: 71250

== ENCOUNTER → 2020-02-04 15:32 | Outpatient (CLI) | payer OTHER, SELFPAY ==
[2019-04-30 12:30] VITALS: BMI 30.4
--- NOTE | 2020-02-04 15:30 | PET_ITS ---
EXAMINATION: FDG PET CT INDICATIONS: A 64-year-old female with reported history of pulmonary nodularity. COMPARISON EXAMINATION: CT of the chest report dated 01/10/20. INDEX LESION SIZE SUV INTERPRETATION Right lower lateral lung-right lower lobe 14.2 mm (frame 148) 2.9 Fulfills quantitative criteria for viable neoplasm, histopathologic analysis recommended Mediastinum, right thoracic perihilum 20.7 mm largest (frame 173) 3.2 (max) Fulfills borderline quantitative criteria for viable neoplasm TECHNIQUE: Following the intravenous administration of 13.9 mCi of F-18 deoxyglucose via the left antecubital fossa, multiplanar image acquisitions of the neck, chest, abdomen and pelvis to level of mid thigh, obtained at one hour post radiopharmaceutical administration contemporaneously interpreted with the current CT of the neck, chest, abdomen and pelvis to level of mid thigh, dated 01/26/[address] of the chest report dated 01/10/20 reveal: SERUM GLUCOSE LEVEL: 84 mg/dl. HEIGHT: 64 inches. WEIGHT: 197 lbs. FINDINGS: 1. Focal increased glucose metabolism is defined in the right lower lateral lung-right lower lobe rendering a calculated maximum standard uptake value of 2.9. The maximal axial diameter of corresponding parenchymal density on review of CT of the chest dated 02/04/20 is 14.2 mm (AP). 2. Multifocal increased glucose metabolism extends from the superior to carinal level mediastinum-right thoracic perihilum registering a calculated maximum standard uptake value of 3.2. The maximal axial diameter of the largest individual metabolic, morphologic abnormality is 20.7 mm. 3. Normal physiologic distribution of the radiopharmaceutical is apparent in the hepatic (3.2) and splenic parenchyma, both renal units, bladder and visualized intestinal tract. Diffuse intestinal tract activity is noted throughout all four quadrants of the abdominal-pelvic retroperitoneum and mesentery consistent with normal physiologic distribution of the radiopharmaceutical. Pertinent CT findings are as follows. CHEST: Atherosclerotic calcification is defined in the thoracic aorta without evidence of dilatation, aneurysm formation. Bilateral axillary soft tissue densities with fatty hilus are non-glucose avid. There are no additional parenchymal densities-nodules defined in the right and left hemithorax with discernible increased FDG concentration. ABDOMEN AND PELVIS: Atherosclerotic calcification is defined in the abdominal aorta without evidence of dilatation, aneurysm formation. Pelvic arterial calcification is demonstrated. Right and left inguinal soft tissue densities with fatty hilus are ametabolic. A small fat-containing periumbilical hernia is noted. Calcifications are defined in the bilateral lower hemipelvis. SKELETAL: Orthopedic hardware placement is defined in the lower lumbar spine commensurate with spinal fusion operative intervention. Degenerative changes defined in the cervical, thoracic and lumbar spine demonstrate no evidence of glucose hypermetabolism. Diffuse demineralization is defined. PET/PET/CT Tumor Base -Thigh Init IMPRESSION: 1. Increased FDG distribution identified in the right lower lateral lung-right lower lobe fulfills quantitative criteria for viable neoplasm. Histopathologic analysis is recommended. (Rojo et al, Annals of Internal Medicine, 138:724, 2003). 2. The mediastinal and right thoracic perihilar increase in tracer uptake fulfills borderline quantitative criteria for malignant transformation. Histopathologic analysis may be indicated. 3. No other quantitatively significant hypermetabolic abnormalities are noted. There is no definitive scintigraphic evidence of distant metastatic disease. Electronic Signature Justino Calhoun D.O. Accurate Quantification of SUVs for this report are calculated using the exclusive [employer]. Exclusive [place]. Patent [employer]? Technology ([place].S. Patent No. [phone] [id number]). Electronically Signed: Justino Calhoun DO at 23:22 EDT Tel , Service support ,
== END ==
PROVIDERS: PCP Family Medicine; Referring Provider Nurse Practitioner Family; Visit Provider Nurse Practitioner Family
DX: R91.1 Solitary pulmonary nodule (principal)
CPT/HCPCS: 78815; A9552

== ENCOUNTER → 2020-02-20 11:51 | Outpatient (CLI) | payer OTHER, SELFPAY ==
[2019-04-30 12:30] VITALS: BMI 30.4
[2020-02-23 03:06] LABS: QNTFERON TB Mitogen Value > 10.00 IU/mL (.); QNTFERON TB Nil Value 0.03 IU/mL (.); QNTFERON TB1+ Ag Value 0.03 IU/mL (.); QNTFERON TB2+ Ag Value 0.03 IU/mL (.)
[2020-02-24 11:32] LABS: QNTIFERON TB Positive Criteria Negative (Negative)
== END ==
PROVIDERS: PCP Family Medicine; Referring Provider Internal Medicine Pulmonary Disease; Visit Provider Internal Medicine Pulmonary Disease
DX: R91.1 Solitary pulmonary nodule (principal)
CPT/HCPCS: 36415; 86480

== ENCOUNTER 2020-05-25 17:02 | Inpatient (IN) | payer OTHER, SELFPAY ==
[2019-04-30 12:30] VITALS: BMI 30.4
[2020-05-25 17:02] VITALS: BP 109/68; PULSE 92; RESP 20; TEMP 36.8; O2SAT 100; BMI 29.0
--- NOTE | 2020-05-25 17:41 | EKG12_ITS ---
Test Reason : Blood Pressure : / mmHG Vent. Rate : 098 BPM Atrial Rate : 098 BPM P-R Int : 194 ms QRS Dur : 076 ms QT Int : 346 ms P-R-T Axes : 046 014 042 degrees QTc Int : 441 ms Normal sinus rhythm Normal ECG Confirmed by HEMANTH DE LOS SANTOS, ANATOLY ([id number]), photo editor JANETH HOLDER ([id number]) on 05/27/2020 7:55:57 AM Referred By: CRISTINA Confirmed By:ANATOLY SAXENA MD
--- NOTE | 2020-05-25 17:43 | ED.DCSUM_ITS ---
History of Present Illness Chief Complaint: Shortness of Breath Detail of Chief Complaint: Palpitations, shortness of breath Informant: Patient Onset: Weeks Context: Gradual Onset Current Severity: Mild Maximum Severity: Mild Narrative: Patient presents Dr. Sandoval's office secondary to new onset atrial fibrillation. Patient is currently undergoing chemotherapy and radiation for non-small cell lung cancer. Patient states she just finished a cycle of chemo and radiation and is awaiting repeat imaging. She reports shortness of breath since the onset of her treatment. Over the past week she has had palpitations. She denies chest pain. In Dr. Sandoval's office patient's heart rate was noted to be between 130 and 150 with atrial fibrillation. Patient denies history of cardiac disease. No known history of arrhythmia. - Past Medical History (1) Non-small cell lung cancer Status: Chronic (2) High cholesterol Status: Chronic Past Medical History - Allergies and Home Meds Allergies/Adverse Reactions: Allergies No Known Allergies Allergy (Verified 05/25/20 17:04) Primary Care Physician: Dennis Alvarenga MD [Primary Care Provider] - Prior records reviewed: Yes Smoking Status: Former smoker Review of Systems General: Denies: Chills, Fever Eyes: Denies: Visual changes - bilaterally ENT: Denies: Bilateral ear pain Cardiovascular: Reports: Palpitations, Heart racing. Denies: Chest pain Respiratory: Reports: Dyspnea Gastrointestinal: Denies: Abdominal pain, Vomiting, Diarrhea Musculoskeletal: Denies: Swelling, Extremity Pain Skin: Denies: Rash Hematologic: Denies: Easy bruising, Easy bleeding Allergy: Denies: Uticaria Physical Exam Vital Signs/Narrative: Vital Signs Temp Pulse Resp BP Pulse Ox 05/25/20 17:02 98.3 F 92 20 H 109/68 100 Inital Vital Signs reviewed: Yes General: Well nourished, Well developed Head: Normocephalic Neck: Supple Cardiovascular: Irregular, Tachycardia Respiratory: No distress, CTA bilaterally Abdomen: Soft, Nontender, Normal bowel sounds Extremities: Nontender Skin: Pallor Neurological: Alert, Oriented x3 Psychological: Normal affect Diagnostic/Tx/Re-eval Chest X-Ray - ED: 1 View, Read by ED Physician, Normal, Heart, Lungs, Mediastinum - EKG Initial EKG Interpretation: Sinus Rhythm - Sinus at 98 with no acute ischemia. - Medical Decision Making Present in the room examining the patient heart rate was between 130 and 157 with atrial fibrillation. By the time EKG was performed patient had converted back to a sinus rhythm. She has remained in sinus rhythm during her ED stay. Blood work is significant for pancytopenia in light of her recent chemotherapy. Troponin and TSH are normal. I did speak with Dr. Gibbs, for cardiology. He stated that the patient would need to be evaluated to determine if she needs to be on a rate controlling agent and what her blood pressure could tolerate. He also felt the patient should be discussed with oncology prior to initiation of any anticoagulants to determine where her masses are and if she is at risk for bleeding. At this time patient would feel more comfort with observation overnight. I do feel this is appropriate to see if she is flipping back and forth from sinus to A. fib as she has had ongoing symptoms for the past week. I will speak with hospitalist for admission. ED Disposition - Plan for ED Patient: Disposition: Acute Care [facility] Diagnosis: Atrial fibrillation Referrals: Dennis Alvarenga MD [Primary Care Provider] -
[2020-05-25] MEDS: 0.9% Normal Saline 1,000 ML 150 ML IV (18:14)
[2020-05-25 18:16] VITALS: PULSE 96; RESP 19; O2SAT 100
--- NOTE | 2020-05-25 18:18 | RAD_ITS ---
STUDY: X-RAY CHEST REASON FOR EXAM: Female, 64 years old. Worsening shortness of breath x1 week TECHNIQUE: Single AP portable view of the chest. COMPARISON: 2017 FINDINGS: EKG leads overlie the chest The lungs are clear and expanded. There is no demonstrated pleural abnormality. Normal size heart. Normal mediastinum and lizzy. Normal visualized pulmonary arteries. Normal visualized aortic arch and descending thoracic aorta. There is a dextroscoliosis of the thoracic spine. Normal visualized ribs, clavicles, and shoulders. There is no demonstrated abnormality of the visualized soft tissue structures of the upper abdomen. RAD/Chest 1 View (Portable) IMPRESSION: No acute pulmonary process Electronically Signed: Bernard Steven MD at 18:42 EST , Service support ,
[2020-05-25 18:26] LABS: Anion Gap 6 (5-15); BUN 22 mg/dL (7-18); BUN/Creat Ratio 15.7 RATIO (10-20); Calcium,Total 8.9 mg/dL (8.5-10.1); Chloride 102 mmol/L (98-107); EST Glomerular Filtration Rate 40 mL/min (>60); Est Glom Filt Rate - Afr Amer 49 mL/min (>60); Glucose 82 mg/dL (74-106); Potassium 3.8 mmol/L (3.5-5.1); Prothrombin Time (Protime)PT. 12.5 SECONDS (11.7-14.9); Sodium Level 138 mmol/L (136-145)
[2020-05-25 18:27] LABS: Partial Thromboplast Time 25.3 Seconds (24.1-36.2)
[2020-05-25 18:45] LABS: Absolute Lymphocyte Count 0.67 X10^3/uL (0.83-4.51); Absolute Neutrophil Count 0.6 X10^3/uL (2.0-7.7); Differential Indicated SCAN CRITERIA MET; Eosinophil# 0.04 X10^3/uL; Eosinophils% 2.2 % (0-5); Hematocrit 21.3 % (37-47); Hemoglobin 7.5 g/dL (12.0-15.0); Lymphocyte # 0.67 X10^3/ul (4.0); Lymphocyte % 37.6 % (19-41); Mean Corp Hgb Conc 35.2 g/dL (32-36); Mean Corpuscular Hgb 29.8 pg (27.0-32.0); Mean Corpuscular Volume 84.5 fL (81-99); Mean Platelet Vol. 9.6 fl (6.2-12.0); Monocyte# 0.42 X10^3/uL; Monocyte% 23.6 % (0-10); NRBC Flagged by Analyzer 1.1 % (0-5); Neutrophil # 0.58 X10^3/uL (2.7-7.7); Neutrophil % 32.7 % (47-70); POSITIVE COUNT YES; POSITIVE DIFFERENTIAL YES; Platelet Count 72 K/mm3 (150-450); RBC Distribution Width CV 11.8 % (11.6-14.6); RBC Distribution Width SD 35.9 fl (35.1-43.9); Red Blood Count 2.52 M/mm3 (4.2-5.4); White Blood Count 1.8 K/mm3 (4.4-11.0)
--- NOTE | 2020-05-25 20:04 | PCM.HP.STD ---
Problem List (1) Non-small cell lung cancer Status: Chronic (2) High cholesterol Status: Chronic (3) Atrial fibrillation Status: Acute History of Present Illness Date of Admission: 05/25/20 Chief Complaint: rapid heart rate The patient is a 64 year old female patient with a past medical history of non-small cell carcinoma of the lung for which she is currently undergoing chemotherapy and planned resection in June. The patient presented to outpatient curriculum and instruction specialist who diagnosed her with atrial fibrillation and rapid ventricular response. The patient had been experiencing symptoms of rapid heart rate since her last chemotherapy dose over the past week. She denies chest pain shortness of breath or lightheadedness at present. She will be admitted for further observation of her atrial fibrillation and management of heart rate. She did spontaneously convert to sinus rhythm just prior to my evaluation without medication in the emergency room. Cardiology was notified and wanted the patient observed and will decide upon anticoagulation after discussing with oncology in the morning. Past Medical History Past Medical History (Chronic Problems): Chronic Problems (Last Reviewed 04/30/19 @ 12:30 by Jericho Kee) Non-small cell lung cancer (Chronic) High cholesterol (Chronic) Medical History: Medical History (Last Reviewed 04/30/19 @ 12:30 by Jericho Kee) Back pain M54.9 Difficulty balancing R29.818 Hemorrhoid K64.9 Allergies No Known Allergies Allergy (Verified 05/25/20 17:04) Home Medications: Ambulatory Orders Medication Instructions Recorded Simvastatin [Zocor] 20 mg PO QHS 01/26/14 traMADol [Ultram (G)] 50 mg PO Q6H PRN PRN #20 tab 01/26/14 denosumab 60 mg/mL subcutaneous 60 mg SC 10/30/18 syringe duloxetine 30 mg capsule,delayed 60 mg PO DAILY 10/30/18 release meloxicam 15 mg tablet 15 mg PO DAILY 10/30/18 Calcium (Elemental) [Os-Marlo 500] 500 mg PO DAILY@0800 05/25/20 Magnesium Oxide [Magnesium] 400 mg PO DAILY 05/25/20 Pantoprazole Sodium [Protonix] 40 mg PO DAILY 05/25/20 Potassium Chloride [Klor-Con M20] 20 meq PO DAILY 05/25/20 Surgical History: Surgical History (Last Reviewed 04/30/19 @ 12:30 by Jericho Kee) History of back surgery Z98.890 History of carpal tunnel repair Z98.890 History of foot surgery Z98.890 Smoking Status: Former smoker Review of Systems Constitutional: Denies: Chills, Fever, Weight Change HEENT: Denies: Head Aches, Sinus Congestion, Sinus Drainage Cardiovascular: Reports: Palpitations. Denies: Chest Pain Respiratory: Denies: Cough, Shortness of breath at rest, Sputum production Gastrointestinal: Denies: Abdominal Pain, Nausea, Vomiting Genitourinary: Denies: Dysuria Musculoskeletal: Denies: Joint Pain, Joint Tenderness Skin: Denies: Rash, Wounds Neurological: Denies: Numbness, Tingling, Focal weakness Psychiatric: Denies: Anxiety, Depression, Homicidal Ideations, Suicidal Ideations Hematologic/ Lymphatic: Denies: Easy Bruising, Easy Bleeding VTE Information - Inpt Only VTE Present on Admission: No VTE Mechan Device Prophylaxis: SCD's VTE Pharm Prophylaxis ordered?: No Patient Problems: Active and Suspected Problems (Last Reviewed 04/30/19 @ 12:30 by Jericho Kee) Atrial fibrillation (Acute) - Physical Exam Vitals/I&O's: Vital Signs Temp Pulse Resp BP Pulse Ox 98.3 F 96 19 H 109/68 100 05/25/20 17:02 05/25/20 18:16 05/25/20 18:16 05/25/20 17:02 05/25/20 18:16 Oxygen Delivery Method Room Air Weight: 180 lb Body Mass Index (BMI) 29.0 General: Alert, Oriented x3, Cooperative HEENT: Atraumatic, Normocephalic Neck: Supple Lungs: Clear to auscultation, Normal air movement Cardiovascular: Regular rate, Normal S1, Normal S2, No murmurs, Tachycardic Abdomen: Bowel Sounds Present, Soft, Non Tender Extremities: No edema Skin: No rashes Musculoskeletal: No Tenderness to Palpation of Joints or Extremities Neurological: Neuro grossly intact Psych/Mental Status: Normal Affect, Appropriate Laboratory Results 05/25/20 17:50: WBC 1.8 L, RBC 2.52 L, Hgb 7.5 L, Hct 21.3 L, MCV 84.5, MCH 29.8, MCHC 35.2, RDW Std Deviation 35.9, RDW Coeff of Sancho 11.8, Plt Count 72 L, MPV 9.6, Immature Gran % (Auto) 3.900 H, Neut % (Auto) 32.7 L, Lymph % (Auto) 37.6, [place] % (Auto) 23.6 H, Eos % (Auto) 2.2, Baso % (Auto) 0.0, Absolute Neuts (auto) 0.6 L, Absolute Lymphs (auto) 0.67 L, Nucleated RBC % 1.1 05/25/20 17:50: PT 12.5, INR 1.0, APTT 25.3 05/25/20 17:50: Sodium 138, Potassium 3.8, Chloride 102, Carbon Dioxide 30.0, Anion Gap 6, BUN 22 H, Creatinine 1.40 H, Estim Creat Clear Calc 38.00, Est GFR (MDRD) Af Amer 49 L, Est GFR (MDRD) Non-Af 40 L, BUN/Creatinine Ratio 15.7, Glucose 82, Calcium 8.9, Troponin I < 0.015, TSH 1.00 Current Medications Sodium Chloride () 1,000 mls @ 150 mls/hr IV .[id number] ZHANNA Last Admin: 05/25/20 18:14 Dose: 150 mls/hr Documented by: Assessment/Plan All Active Problems (Last Reviewed 04/30/19 @ 12:30 by Jericho Kee) Atrial fibrillation (Acute) Acute bronchitis (Acute) Sinusitis (Acute) Abdominal pain (Acute) Hematochezia (Acute) Contusion of left knee and lower leg (Acute) Contusion of right chest wall (Acute) Chronic Problems (Last Reviewed 04/30/19 @ 12:30 by Jericho Kee) Non-small cell lung cancer (Chronic) High cholesterol (Chronic) Plan 1. Atrial fibrillation with RVR that is paroxysmal?admit patient to progressive care unit continue cardiac monitoring. Consult Dr. Gibbs for a.m. evaluation to decide upon anticoagulation after he discusses the case with her oncologist. 2. Non-small cell cancer?patient is status post chemotherapy dose and has ongoing evaluation for possible resection in June. 3. Hyperlipidemia?continue statin medication 4. DVT prophylaxis?will use SCDs for now due to concern of risk if the metastatic lung lesions pose any risk to bleeding
[2020-05-25 20:22] VITALS: BP 114/100; PULSE 79; PULSE 84; RESP 20; TEMP 36.6; O2SAT 100; O2SAT 99
[2020-05-25 20:47] VITALS: PULSE 87; BMI 28.5; BMI 28.6
[2020-05-25 20:55] VITALS: BP 107/63; PULSE 86; RESP 16; TEMP 36.8; O2SAT 100
[2020-05-25] MEDS: 0.9% Normal Saline 1,000 ML 75 ML IV (22:30)
[2020-05-25] MEDS: Atorvastatin Calcium 10 MG Tablet PO (22:32)
[2020-05-25 22:42] VITALS: O2SAT 100
[2020-05-26] VITALS (14 sets, daily range): BP systolic 95–154; BP diastolic 57–94; PULSE 77–97; RESP 14–16; TEMP 36.7–37.1; O2SAT 96–100; BMI 28.5
[2020-05-26 06:38] LABS: Absolute Lymphocyte Count 0.52 X10^3/uL (0.83-4.51); Absolute Neutrophil Count 0.6 X10^3/uL (2.0-7.7); Basophil# 0.01 X10^3/uL; Basophil% 0.7 % (0-1); Eosinophil# 0.03 X10^3/uL; Eosinophils% 2.1 % (0-5); Hematocrit 19.8 % (37-47); Hemoglobin 6.6 g/dL (12.0-15.0); Lymphocyte # 0.52 X10^3/ul (4.0); Lymphocyte % 36.4 % (19-41); Mean Corp Hgb Conc 33.3 g/dL (32-36); Mean Corpuscular Hgb 28.9 pg (27.0-32.0); Mean Corpuscular Volume 86.8 fL (81-99); Mean Platelet Vol. 9.3 fl (6.2-12.0); Monocyte# 0.27 X10^3/uL; Monocyte% 18.9 % (0-10); NRBC Flagged by Analyzer 0 % (0-5); Neutrophil # 0.55 X10^3/uL (2.7-7.7); Neutrophil % 38.4 % (47-70); POSITIVE COUNT YES; POSITIVE DIFFERENTIAL YES; Platelet Count 69 K/mm3 (150-450); RBC Distribution Width CV 11.9 % (11.6-14.6); RBC Distribution Width SD 36.6 fl (35.1-43.9); Red Blood Count 2.28 M/mm3 (4.2-5.4)
[2020-05-26 06:41] LABS: Differential Indicated SCAN CRITERIA MET
[2020-05-26 06:42] LABS: White Blood Count 1.4 K/mm3 (4.4-11.0)
[2020-05-26 06:58] LABS: Anion Gap 6 (5-15); BUN 17 mg/dL (7-18); BUN/Creat Ratio 14.8 RATIO (10-20); Calcium,Total 8.4 mg/dL (8.5-10.1); Chloride 108 mmol/L (98-107); Creatinine, Serum 1.15 mg/dL (0.55-1.02); EST Glomerular Filtration Rate 50 mL/min (>60); Est Glom Filt Rate - Afr Amer 61 mL/min (>60); Estimated Creatinine Clearance 46.27 ml/min; Glucose 82 mg/dL (74-106); Sodium Level 142 mmol/L (136-145)
--- NOTE | 2020-05-26 07:23 | ECHOD_ITS ---
Reason For Study: Afib/Flutter Procedure This was a 2D Doppler, Color Flow transthoracic echocardiogram. Myocardial strain analysis was performed in this exam to aid in the assessment of cardiac function. The exam was of adequate technical quality. Exam performed portable in patient room. Left Ventricle Normal LV size. Left ventricular systolic function is normal. The estimated ejection fraction is 65 %. The global longitudinal strain = -22 % (normal). No evidence for diastolic dysfunction. No regional wall motion abnormalities noted. Right Ventricle Normal RV size. Normal systolic function. Atria The left atrium is mildly enlarged. Normal right atrium. No doppler evidence for ASD. Mitral Valve There is no mitral annular calcification. Mild diffuse mitral valve thickening. Trivial mitral valve insufficiency. Tricuspid Valve Normal tricuspid valve. Mild tricuspid valve insufficiency. Right ventricular systolic pressure estimated to be 24 mmHg. Aortic Valve Trisinus/trileaflet aortic valve. Normal aortic valve. Pulmonic Valve The pulmonic valve is not well visualized. Trivial pulmonic valve insufficiency. Great Vessels Normal sized aortic root. Pericardium/Pleural No pericardial effusion. MMode/2D Measurements & Calculations LVIDd: 4.1 cm IVSd: 1.4 cm Ao root diam: 3.4 cm LVIDs: 2.8 cm LVPWd: 1.0 cm LA dimension: 3.7 cm RVDd: 3.6 cm FS: 31.6 % LAV(MOD-bp): 48.7 ml LA A4 area: 20.3 cm2 RA A4 area: 14.7 cm2 LAV(MOD-bp) Indexed: 25.6 ml/m2 LAV(MOD-sp2): 38.6 ml LAV(MOD-sp4): 57.7 ml Time Measurements MV dec time: 0.25 sec Doppler Measurements & Calculations MV E max bogdan: 71.2 cm/sec Lat Peak E' Bogdan: 10.8 cm/sec Med Peak E' Bogdan: 7.3 cm/sec MV A max bogdan: 96.7 cm/sec E/E' lat: 6.6 E/E' med: 9.8 MV E/A: 0.74 MV V2 max: 105.2 cm/sec MV P1/2t max bogdan: 78.2 cm/sec Ao V2 max: 143.8 cm/sec MV max P.4 mmHg MV P1/2t: 88.7 msec Ao max P.3 mmHg MV V2 mean: 60.0 cm/sec MV dec slope: 258.2 cm/sec2 MV mean P.7 mmHg MVA(P1/2t): 2.5 cm2 MV V2 VTI: 22.9 cm LV V1 max: 97.4 cm/sec PA V2 max: 116.5 cm/sec TR max bogdan: 229.9 cm/sec LV V1 max P.8 mmHg TR max P.1 mmHg Interpretation Summary Left ventricular systolic function is normal. The estimated ejection fraction is 65 %. The global longitudinal strain = -22 % (normal). The left atrium is mildly enlarged. Mild diffuse mitral valve thickening. Trivial mitral valve insufficiency. Mild tricuspid valve insufficiency. Trivial pulmonic valve insufficiency. Right ventricular systolic pressure estimated to be 24 mmHg. No evidence for diastolic dysfunction. Ordering Physician: Adrianne Whitney Referring Physician: Dennis Alvarenga Performed By: Jaya Franco RCS
--- NOTE | 2020-05-26 08:18 | PCM.PROGNOTE ---
Patient Problems: Active and Suspected Problems (Last Reviewed 04/30/19 @ 12:30 by Jericho Kee) Pancytopenia (Acute) New onset A. fib with RVR (Acute) Subjective: Chief complaint: Follow-up after admission for new onset A. fib with RVR and pancytopenia. Patient seen and examined. No acute events overnight. Today, she feels better, denies any complaints. Denied palpitation, dizziness or lightheadedness. Denied chest pain or shortness of breath. Denied cough or sputum production. Denied fever or chills. She converted back to sinus rhythm, vital signs has been stable. - Physical Exam Vitals/I&O's: Vital Signs Temp Pulse Resp BP Pulse Ox 98.3 F 95 16 95/62 96 05/26/20 06:15 05/26/20 07:00 05/26/20 06:15 05/26/20 06:15 05/26/20 07:26 Oxygen Delivery Method Room Air Weight: 177 lb 4.026 oz Body Mass Index (BMI) 28.5 Intake and Output for Last 24 Hours 05/24/20 05/25/20 05/26/20 23:59 23:59 23:59 Intake Total 476.25 / 716.25 480 / 480 Balance 476.25 / 716.25 480 / 480 General: Alert, Oriented x3, Cooperative, No apparent distress HEENT: Atraumatic, PERRLA, EOMI, Normocephalic Oral: Moist Mucosa, No Gingival or Mucosal Lesions/ Ulcerations Neck: Supple, No JVD, Negative Carotid Bruits, Trachea Midline, Thyroid Normal Size and Texture Lungs: Clear to auscultation, Normal air movement, No rhonchi, No wheeze, No rales Cardiovascular: Regular rate, Regular Rhythm, Normal S1, Normal S2, PMI Normal Abdomen: Bowel Sounds Present, Soft, Non Tender, Non-Distended, No Hepato-splenomegaly Extremities: No clubbing, No cyanosis, No edema Skin: No rashes, No breakdown Lymphatic: No Cervical, Supraclavicular, or Inguinal Adenopathy Neurological: Cranial nerves II-XII grossly intact, Motor Exam 5/5 strength throughout Psych/Mental Status: Normal Affect, Appropriate, Alert and oriented to time, place, person, mood and affect Laboratory Results 05/25/20 17:50: WBC 1.8 L, RBC 2.52 L, Hgb 7.5 L, Hct 21.3 L, MCV 84.5, MCH 29.8, MCHC 35.2, RDW Std Deviation 35.9, RDW Coeff of Sancho 11.8, Plt Count 72 L, MPV 9.6, Immature Gran % (Auto) 3.900 H, Neut % (Auto) 32.7 L, Lymph % (Auto) 37.6, [place] % (Auto) 23.6 H, Eos % (Auto) 2.2, Baso % (Auto) 0.0, Absolute Neuts (auto) 0.6 L, Absolute Lymphs (auto) 0.67 L, Nucleated RBC % 1.1 05/25/20 17:50: PT 12.5, INR 1.0, APTT 25.3 05/25/20 17:50: Sodium 138, Potassium 3.8, Chloride 102, Carbon Dioxide 30.0, Anion Gap 6, BUN 22 H, Creatinine 1.40 H, Estim Creat Clear Calc 38.00, Est GFR (MDRD) Af Amer 49 L, Est GFR (MDRD) Non-Af 40 L, BUN/Creatinine Ratio 15.7, Glucose 82, Calcium 8.9, Troponin I < 0.015, TSH 1.00 05/25/20 21:20: Troponin I < 0.015 05/26/20 00:10: Troponin I < 0.015 05/26/20 06:10: WBC 1.4 L*, RBC 2.28 L, Hgb 6.6 L, Hct 19.8 L, MCV 86.8, MCH 28.9, MCHC 33.3 D, RDW Std Deviation 36.6, RDW Coeff of Sancho 11.9, Plt Count 69 L, MPV 9.3, Immature Gran % (Auto) 3.500 H, Neut % (Auto) 38.4 L, Lymph % (Auto) 36.4, [place] % (Auto) 18.9 H, Eos % (Auto) 2.1, Baso % (Auto) 0.7, Absolute Neuts (auto) 0.6 L, Absolute Lymphs (auto) 0.52 L, Nucleated RBC % 0, Diff Path Review September05/26/20 06:10: Sodium 142, Potassium 4.0, Chloride 108 H, Carbon Dioxide 28.0, Anion Gap 6, BUN 17, Creatinine 1.15 H, Estim Creat Clear Calc 46.27, Est GFR (MDRD) Af Amer 61, Est GFR (MDRD) Non-Af 50 L, BUN/Creatinine Ratio 14.8, Glucose 82, Calcium 8.4 L Current Medications Atorvastatin Calcium (Atorvastatin Calcium 10 Mg Tablet) 10 mg PO QHS ZHANNA Last Admin: 05/25/20 22:32 Dose: 10 mg Documented by: Duloxetine HCl (Duloxetine Hcl 60 Mg Capsule) 60 mg PO DAILY ZHANNA Sodium Chloride () 1,000 mls @ 75 mls/hr IV .[id number] ZHANNA Last Infusion: 05/25/20 23:59 Dose: 75 mls/hr Documented by: Sodium Chloride () 250 mls @ 15 mls/hr IV .[id number] PRN PRN Reason: Saline Flush Sodium Chloride () 250 mls @ 15 mls/hr IV .[id number] PRN PRN Reason: Additional IVPB Infusion Meloxicam (Meloxicam 15 Mg Tablet) 15 mg PO DAILY ZHANNA Ondansetron HCl (Ondansetron 4 Mg/2 Ml Vial) 4 mg IV Q8H PRN PRN PRN Reason: NAUSEA/VOMITING Pantoprazole Sodium (Pantoprazole Sodium 40 Mg Tablet) 40 mg PO DAILY ZHANNA Potassium Chloride (Potassium Chloride 20 Meq Tablet) 20 meq PO DAILYCM ZHANNA Sodium Chloride (0.9% Saline Lock 10 Ml Syringe) 10 - 40 ml IV UD PRN PRN Reason: SALINE FLUSH Tramadol HCl (Tramadol 50 Mg Tablet) 50 mg PO Q6H PRN PRN PRN Reason: Pain Score 1-10 Medical Necessity - Tobacco Use Smoking Status: Former smoker Assessment/Plan All Active Problems (Last Reviewed 04/30/19 @ 12:30 by Jericho Kee) Pancytopenia (Acute) New onset A. fib with RVR (Acute) This is a 64 years old female patient was sent from Dr. Sandoval's office because of new onset atrial fibrillation, found to have pancytopenia and she was admitted for evaluation and treatment. #1 new onset paroxysmal atrial fibrillation with RVR: Converted back to sinus rhythm in the ED yesterday before admission. She has been in sinus rhythm since then.. EKG reviewed, revealed normal sinus rhythm, no acute segment changes. Troponin was negative x3. Serum potassium as well as TSH is normal. Magnesium is low. 2D echocardiogram done, awaiting the report. Cardiology consulted and she was started on p.o. amiodarone. At this time, I do not think she is a candidate for anticoagulation because of severe thrombocytopenia and anemia. Plan: Continue same treatment, repeat CBC and BMP tomorrow morning, replace magnesium. #2 pancytopenia/neutropenia without fever: Secondary to chemotherapy. Patient is leukopenic, anemic and thrombocytopenic and she does have neutropenia. Absolute neutrophil count is 600, no fever. Hemoglobin is 6.6 g/dL. No active bleeding. Platelet count is 69,000, pro time and INR were normal.. Plan: Start Granix injections, neutropenic precautions, transfused unit of packed RBCs, repeat CBC tomorrow morning. #3 elevated D-dimer: Patient is not tachycardic, not hypoxic but she is a cancer patient. Plan to do CTA chest to rule out PE. #4 acute kidney injury: Probably secondary to dehydration and poor oral intake, chemotherapy. Baseline kidney function is normal. She has been on IV fluids. Admission creatinine was 1.4, came down to 1.15 today. Improving. Continue IV fluids, repeat BMP tomorrow morning. #5 non-small cell lung cancer: Currently on chemotherapy and radiation, last chemotherapy received was on May 12, 2020. #6 hyperlipidemia: Continue statins. #7 depression: Continue Cymbalta. #8 DVT prophylaxis: SCDs, no chemical prophylaxis because of thrombocytopenia. This note was generated with [employer] dictation software. It may contain incorrect words, spelling, and punctuation that were not noted in checking the note before signing. Inpatient E&M: [id number] Subs Hosp L2
[2020-05-26 08:45] LABS: Magnesium 1.2 mg/dL (1.6-2.6)
--- NOTE | 2020-05-26 09:17 | PCM.CONS.C ---
Problem List (1) New onset A. fib with RVR Status: Acute (2) Hyperlipidemia Status: Chronic (3) Non-small cell lung cancer Status: Chronic (4) Pancytopenia Status: Acute Reason for Consult Date of Consultation: 05/26/20 History of Present Illness: The patient is a 64 year old white female who presents for evaluation of atrial fibrillation with RVR superimposed upon a history of hyperlipidemia, non-small cell lung carcinoma, and pancytopenia. The patient was being evaluated by her wood barker yesterday for concerns of underlying reactive airway disease when she was noted to have a fast irregular heart rhythm. She was recommended to present to the [facility] ED for further evaluation. She did and she was found to be in atrial fibrillation with RVR. She was noted to subsequently spontaneously returned to sinus rhythm. She states when her heart rate was fast she could tell the difference. She states she does not believe it has recurred since she was noted to have return to sinus rhythm. She does not recall having any other associated chest discomfort. She does have chronic shortness of breath and dyspnea. There has been no orthopnea or PND or peripheral pitting edema. There has been no near syncope or syncope. She states she did have a cardiovascular evaluation at the [facility] [place] in the fall 2019 prior to underlying pulmonary procedures/mediastinoscopy. She believes this included a stress nuclear imaging study which was apparently unremarkable as she stated she required no further cardiac evaluation. She states she has underlying non-small cell lung carcinoma. She notes that involves, to the best of her knowledge, both lungs and her lymph nodes. She states she has been undergoing chemotherapy and radiation therapy in the hopes of shrinking her carcinoma. She states based upon upcoming noninvasive studies such as repeat CT scans she may be a candidate for some form of surgical resection next month. [] Past Medical History Allergies/Adverse Reactions: Allergies No Known Allergies Allergy (Verified 05/25/20 17:04) Home Medications: Ambulatory Orders Medication Instructions Recorded Simvastatin [Zocor] 20 mg PO QHS 01/26/14 traMADol [Ultram (G)] 50 mg PO Q6H PRN PRN #20 tab 01/26/14 denosumab 60 mg/mL subcutaneous 60 mg SC .[id number] 10/30/18 syringe duloxetine 30 mg capsule,delayed 60 mg PO DAILY 10/30/18 release meloxicam 15 mg tablet 15 mg PO DAILY 10/30/18 Calcium (Elemental) [Os-Marlo 500] 500 mg PO DAILY@0800 05/25/20 Magnesium Oxide [Magnesium] 400 mg PO DAILY 05/25/20 Pantoprazole Sodium [Protonix] 40 mg PO DAILY 05/25/20 Potassium Chloride [Klor-Con M20] 20 meq PO DAILY 05/25/20 Past Medical History (Chronic Problems): Chronic Problems (Last Reviewed 04/30/19 @ 12:30 by Jericho Kee) Hyperlipidemia (Chronic) Non-small cell lung cancer (Chronic) Smoking Status: Former smoker Alcohol: None Drugs: None Review of Systems - Review of Systems General: Denies: Fever, Night Sweats, Fatigue Cardiovascular: Reports: Shortness of Breath, Palpitations. Denies: Chest Discomfort, Orthopnea, PND, Peripheral Edema, Lightheadedness, Dizziness, Near Syncope, Syncope Respiratory: Reports: Shortness of Breath. Denies: Cough, Sputum Production, Hemoptysis Gastrointestinal: Denies: Hematemesis, Hematochezia, Melena Genitourinary: Denies: Dysuria, Hematuria Skin: Denies: Rash Subjectve: This is a 64-year-old white female who appears to be resting comfortably at the moment in no acute distress. Objective: Vital Signs Temp Pulse Resp BP Pulse Ox 98.3 F 95 16 95/62 96 05/26/20 06:15 05/26/20 07:00 05/26/20 06:15 05/26/20 06:15 05/26/20 07:26 Oxygen Delivery Method Room Air Weight: 177 lb 4.026 oz Body Mass Index (BMI) 28.5 Intake and Output for Last 24 Hours 05/24/20 05/25/20 05/26/20 23:59 23:59 23:59 Intake Total 476.25 / 716.25 480 / 480 Balance 476.25 / 716.25 480 / 480 General: Awake, Alert, Oriented x 3, Cooperative, No Acute Distress HEENT: Atraumatic, Normocephalic, PERRL, EOMI, Sclera Non Icteric Neck: Supple, Good ROM, No JVD Lungs: Clear to auscultation Cardiovascular: Regular Rhythm, Normal S1, Normal S2 Vascular: No Carotid Bruits Abdomen: Bowel Sounds Present, Soft Extremities: No edema Neurological: No Focal Motor or Sensory Deficit Psych/Mental Status: Appropriate 05/25/20 17:50: WBC 1.8 L, RBC 2.52 L, Hgb 7.5 L, Hct 21.3 L, MCV 84.5, MCH 29.8, MCHC 35.2, Plt Count 72 L, MPV 9.6, Immature Gran % (Auto) 3.900 H, Neut % (Auto) 32.7 L, Lymph % (Auto) 37.6, [place] % (Auto) 23.6 H, Eos % (Auto) 2.2, Baso % (Auto) 0.0, Absolute Neuts (auto) 0.6 L, Nucleated RBC % 1.1 05/25/20 17:50: PT 12.5, INR 1.0, APTT 25.3 05/25/20 17:50: Sodium 138, Potassium 3.8, Chloride 102, Carbon Dioxide 30.0, Anion Gap 6, BUN 22 H, Creatinine 1.40 H, Est GFR (MDRD) Af Amer 49 L, Est GFR (MDRD) Non-Af 40 L, BUN/Creatinine Ratio 15.7, Glucose 82, Calcium 8.9, Troponin I < 0.015 05/25/20 21:20: Troponin I < 0.015 05/26/20 00:10: Troponin I < 0.015 05/26/20 06:10: WBC 1.4 L*, RBC 2.28 L, Hgb 6.6 L, Hct 19.8 L, MCV 86.8, MCH 28.9, MCHC 33.3 D, Plt Count 69 L, MPV 9.3, Immature Gran % (Auto) 3.500 H, Neut % (Auto) 38.4 L, Lymph % (Auto) 36.4, [place] % (Auto) 18.9 H, Eos % (Auto) 2.1, Baso % (Auto) 0.7, Absolute Neuts (auto) 0.6 L, Nucleated RBC % 0 05/26/20 06:10: Sodium 142, Potassium 4.0, Chloride 108 H, Carbon Dioxide 28.0, Anion Gap 6, BUN 17, Creatinine 1.15 H, Est GFR (MDRD) Af Amer 61, Est GFR (MDRD) Non-Af 50 L, BUN/Creatinine Ratio 14.8, Glucose 82, Calcium 8.4 L 05/26/20 06:10: Magnesium 1.2 L Rhythm: Sinus rhythm EKG: Sinus rhythm ECHO: Pending Stress Test: [facility]: Unavailable for review CXR: Reported by radiology as no acute cardiopulmonary disease process: Please see official report Assessment/Plan 1. Atrial fibrillation with RVR: Paroxysmal The patient appears to have a had an episode of paroxysmal atrial fibrillation with RVR. The etiology may be a combination of factors including her age, her underlying pulmonary condition, etc. She is not known to have other cardiovascular concerns. She has not been known to have other issues, secondary to her carcinoma, such as thromboembolic disease although this could be a concern. She is not known to have other metabolic related issues. It would not be unreasonable to further evaluate her for any obvious thromboembolic disease. This could include a D-dimer and potentially a chest CT scan. In the interim she is being monitored. Based upon concerns of her lower blood pressure agents such as beta-blockers and calcium channel antagonist have been on hold at this time. She may need rate control therapy, depending upon her blood pressure, with agents such as digitalis. In the interim it may not be unreasonable to place her on amiodarone therapy in attempt to assist with rate and rhythm control. Ideally she may be a candidate for anticoagulant therapy however there is concern about pancytopenia with anemia requiring PRBCs. Thus anticoagulant therapy would have to be assessed by her global mobility specialist oncologist as to whether she is a candidate for such. 2. Hyperlipidemia She should continue lipid-lowering therapy. 3. Non-small cell lung carcinoma She continues evaluation care per [facility] hematology/oncology. 4. Pancytopenia She does have evidence of pancytopenia. This may be secondary to her chemotherapy, etc. According to the [facility] nursing staff she is being considered for PRBC transfusion. As noted above input from her global mobility specialist/oncologist would be beneficial with respect whether or not she is a candidate for any form of anticoagulant therapy going forward if need be. Comment: The patient's case has been discussed and reviewed with patient and previously with Dr. Polanco of the [facility] emergency department staff. This note was generated using a voice recognition system and there may be incorrect words, spelling or punctuation that were not noted when reviewing the office note prior to saving.
[2020-05-26 10:14] LABS: D-Dimer Quantitative (DVT/PE) 3.01 FEU/ug/m (0.27-0.49)
--- NOTE | 2020-05-26 10:19 | CT_ITS ---
STUDY: CTA CHEST REASON FOR EXAM: Female, 64 years old. NEW ONSET A-FIB, H/O LUNG CA- ON CHEMO AND RAD. ELEVATED D-DIMER RADIATION DOSAGE (If Supplied By Facility): CTDIvol = ( 10.415 ) mGy, DLP = ( 445.62 ) mGycm TECHNIQUE: The examination was performed with the intravenous administration of IV 100mL Isovue-370. Post-processing of the angiographic images was performed, with multiplanar reformation and 3D reconstruction. Individualized dose optimization techniques were used for this CT. COMPARISON: 01/09/2019 FINDINGS: Normal enhancement of the main pulmonary artery and right and left pulmonary arteries. Normal enhancement of the bilateral peripheral pulmonary arteries. There is no demonstrated pulmonary embolism. Normal thoracic aorta and visualized great vessels. There is no demonstrated aortic dissection. Normal heart and pericardium. Normal mediastinum. Normal hilar regions. Normal visualized trachea and bronchi. The lungs are well expanded. There is underlying emphysema with bleb formation throughout both lung tarango. A previously described nodule in the right middle lobe has increased in size since the previous study. On the previous study measured approximately 3.7 mm, on current study has approximately doubled in size at 7.4 mm. Normal pleura. Normal chest wall structures. There are degenerative changes of thoracic spine. Normal visualized upper abdomen. CT/CTA Chest W/WO Contrast IMPRESSION: No demonstrated PE, or thoracic aortic aneurysm or dissection Previously described right middle lobe nodule has doubled in size since the previous study, on the previous study measured approximately 3.7 mm, on current study it measures 7.4 mm No superimposed infiltrate or groundglass opacifications Degenerative bony changes Electronically Signed: Bernard Steven MD at 11:51 EST , Service support ,
[2020-05-26] MEDS: DULoxetine Hcl 60 MG Capsule PO (10:35)
[2020-05-26] MEDS: Meloxicam 15 MG Tablet PO (10:35)
[2020-05-26] MEDS: Pantoprazole Sodium 40 MG Tablet PO (10:36)
[2020-05-26] MEDS: Amiodarone 200 MG Tablet PO ×3 (10:37→20:26)
[2020-05-26] MEDS: TBO-FILGRASTIM 300 MCG/0.5 ML ML SC (10:38)
[2020-05-26 14:21] LABS: Pathologist Review Reviewed
--- NOTE | 2020-05-26 14:45 | CASEMGMT ---
VANDANA PATEL assessment: Face to Face with patient for initial transition planning/care coordination assessment. RN AMANDA introduced self and role at [facility], pt voices understanding and consents to assessment at this time. Pt is sitting up on side of bed in no distress at this time. Pt is A/Ox4 at this time and answers all questions appropriately at this time. Care providers, pharmacy, and demographics verified at this time. Presentation: SOB x1week, elev HR since she had chemo/radiation Admitting dx: Afib RVR PCP: Lyle Specialists: NATALIE Toscano surgeon; didier Sandoval; Janette and Rubin, oncologist/radiation Preferred Pharmacy: [facility] Insurance: MMO Prescription Benefit: MMO Living Will/HPOA: Pt states is in the process of completing LW/HPOA and states 'We just need to get it back to the solutions developer to finalize.' LNOK: Ryan Moreau Jr; Living Arrangements: Pt states lives with in 1 story home and states no concerns at home at this time. Pt states is independent with ADL's. Transportation: Pt states drives self and states no transportation concerns at this time. DME/HHC: Pt states no current DME or need for any at this time. Pt states no hx of HHC but has been to [facility] in the past s/p back surgery. Pt states no concerns with going home at time of discharge. 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 Pt states does not smoke cigarettes or drink ETOH. Pt states no further concerns/needs at this time. CM to follow for any further discharge planning/needs. Advised pt to ask for CM if any further questions/concerns/needs arise, voices understanding. Pt Goal: Home Plan: [place] VANDANA PATEL
[2020-05-26] MEDS: 0.9% Normal Saline 1,000 ML 75 ML IV (15:01)
[2020-05-26] MEDS: Magnesium Sulfate 4gm/100mL 4 GM/100 ML IV.SOLN. IV (15:02)
[2020-05-26] MEDS: traMADol 50 MG Tablet PO (15:05)
--- NOTE | 2020-05-26 15:13 | NT.THERAPY_ITS ---
Nutrition Therapy Report - History Nutrition Services has been consulted to:: Manage nutrient details of diet order Current diet / nutrition support order:: regular - Anthropometric Measurements Height:: 5 ft 6 in Weight:: 80.4 kg Body Mass Index (BMI):: 28.5 - Relevant Labs Relevant Labs:: WBC 1.4 K/mm3 (4.4-11.0) L* 05/26/20 06:10 RBC 2.28 M/mm3 (4.2-5.4) L 05/26/20 06:10 Hgb 6.6 g/dL (12.0-15.0) L 05/26/20 06:10 Hct 19.8 % (37-47) L 05/26/20 06:10 Plt Count 69 K/mm3 (150-450) L 05/26/20 06:10 Immature Gran % (Auto) 3.500 % (0.0-0.9) H 05/26/20 06:10 Neut % (Auto) 38.4 % (47-70) L 05/26/20 06:10 Rowan % (Auto) 18.9 % (0-10) H 05/26/20 06:10 Absolute Neuts (auto) 0.6 X10^3/uL (2.0-7.7) L 05/26/20 06:10 Absolute Lymphs (auto) 0.52 X10^3/uL (0.83-4.51) L 05/26/20 06:10 D-Dimer Quant (PE/DVT) 3.01 FEU/ug/m (0.27-0.49) H* 05/26/20 09:44 Chloride 108 mmol/L (98-107) H 05/26/20 06:10 BUN 22 mg/dL (7-18) H 05/25/20 17:50 Creatinine 1.15 mg/dL (0.55-1.02) H 05/26/20 06:10 Est GFR (MDRD) Af Amer 49 mL/min (>60) L 05/25/20 17:50 Est GFR (MDRD) Non-Af 50 mL/min (>60) L 05/26/20 06:10 Calcium 8.4 mg/dL (8.5-10.1) L 05/26/20 06:10 Magnesium 1.2 mg/dL (1.6-2.6) L 05/26/20 06:10 - Assessment Food / Nutrition-Related History:: 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 States food does not taste good. Currently undergoing chemotherapy. Believes wt 1 month ago was 189#. CBW 177.4#-11.6#/6.1% wt loss x 1 month, significant for malnutrition. Denies chewing issues, states sometimes it feels like she has a lump in her throat but it is not r/t swallowing. Describes lump as irritating. - Nutrition Diagnosis Problem / Etiology / Signs & Symptoms (PES):: Pt w/ chronic, severe malnutrition related to increased energy needs w/ lung cancer as evidenced by wt loss of 11.6#/6.1% x 1 month, estimated PO intake meeting less than 75% of estimated nutritional needs >1 month. Evidence of Malnutrition Exists:: Yes Severe PCM:: Chronic Illness - Nutrition Intervention Nutrition Prescription:: 3440-9308 calories, 80-100 g protein/day - Food / Nutrient Delivery Interventions Summary of nutrition intervention:: Discussed ONS w/ pt- pt states she has not tried previously. Agreeable to trying ensure enlive w/ medpass. Nutrition support ordered as / adjusted to:: regular diet; 120mL ensure enlive 4x/day Nutrition education provided?: Yes - MNT Monitoring Further MNT monitoring and evaluation required?: Yes MNT Follow-up in:: 3-5 days
[2020-05-26] MEDS: Zolpidem Tartrate 5 MG Tablet PO (20:26)
[2020-05-26] MEDS: Atorvastatin Calcium 10 MG Tablet PO (20:27)
[2020-05-26] MEDS: Acetylcysteine (Mucomyst Oral) 20% SOLN 1200 MG PO (20:27)
[2020-05-27] VITALS (8 sets, daily range): BP systolic 101–112; BP diastolic 56–70; PULSE 72–91; RESP 16–18; TEMP 36.7–36.8; O2SAT 93–100
[2020-05-27] MEDS: 0.9% Normal Saline 1,000 ML 75 ML IV (05:37)
[2020-05-27] MEDS: Amiodarone 200 MG Tablet PO (05:40)
[2020-05-27 05:55] LABS: Absolute Neutrophil Count 3.8 X10^3/uL (2.0-7.7); Basophil# 0.02 X10^3/uL; Basophil% 0.4 % (0-1); Eosinophil# 0.04 X10^3/uL; Eosinophils% 0.8 % (0-5); Hematocrit 21.6 % (37-47); Hemoglobin 7.6 g/dL (12.0-15.0); Lymphocyte % 12.1 % (19-41); Mean Corp Hgb Conc 35.2 g/dL (32-36); Mean Corpuscular Hgb 29.7 pg (27.0-32.0); Mean Corpuscular Volume 84.4 fL (81-99); Mean Platelet Vol. 9.1 fl (6.2-12.0); Monocyte# 0.44 X10^3/uL; Monocyte% 8.9 % (0-10); NRBC Flagged by Analyzer 0.4 % (0-5); Neutrophil % 76.4 % (47-70); POSITIVE COUNT YES; POSITIVE DIFFERENTIAL YES; POSITIVE MORPHOLOGY YES; Platelet Count 83 K/mm3 (150-450); RBC Distribution Width SD 36.3 fl (35.1-43.9); Red Blood Count 2.56 M/mm3 (4.2-5.4)
[2020-05-27 05:57] LABS: Differential Indicated SCAN CRITERIA MET
[2020-05-27 06:11] LABS: Anion Gap 4 (5-15); BUN 14 mg/dL (7-18); BUN/Creat Ratio 12.3 RATIO (10-20); Calcium,Total 8.5 mg/dL (8.5-10.1); Chloride 107 mmol/L (98-107); Creatinine, Serum 1.14 mg/dL (0.55-1.02); EST Glomerular Filtration Rate 51 mL/min (>60); Est Glom Filt Rate - Afr Amer 62 mL/min (>60); Estimated Creatinine Clearance 46.67 ml/min; Glucose 82 mg/dL (74-106); Sodium Level 139 mmol/L (136-145)
[2020-05-27 06:33] LABS: Differential Comment SCANNED
[2020-05-27 06:34] LABS: Platelet Estimate MOD DEC (ADEQ)
--- NOTE | 2020-05-27 06:58 | PCS.PANDOC ---
PANDEMIC DOCUMENTATION INITIATED: Date: 05/25/2020 Time: 2039
[2020-05-27] MEDS: DULoxetine Hcl 60 MG Capsule PO (08:57)
[2020-05-27] MEDS: Acetylcysteine (Mucomyst Oral) 20% SOLN 1200 MG PO (08:57)
[2020-05-27] MEDS: TBO-FILGRASTIM 300 MCG/0.5 ML ML SC (08:57)
[2020-05-27] MEDS: Pantoprazole Sodium 40 MG Tablet PO (08:57)
[2020-05-27] MEDS: Meloxicam 15 MG Tablet PO (08:57)
--- NOTE | 2020-05-27 09:10 | PCM.PN.CARD ---
Subjectve: The patient is awake and alert. She has had no recurrence of her symptoms of palpitations or heart rate. She has had no other concerning chest discomfort or acute shortness of breath/dyspnea. Objective: Vital Signs Temp Pulse Resp BP Pulse Ox 98.1 F 91 18 112/70 98 05/27/20 09:05 05/27/20 09:05 05/27/20 09:05 05/27/20 09:05 05/27/20 09:05 Oxygen Delivery Method Room Air Weight: 177 lb 4.026 oz Body Mass Index (BMI) 28.5 Intake and Output for Last 24 Hours 05/25/20 05/26/20 05/27/20 23:59 23:59 23:59 Intake Total 476.25 / 716.25 1382.5 / 1502.5 1320 / 1320 Balance 476.25 / 716.25 1382.5 / 1502.5 1320 / 1320 General: Awake, Alert, Oriented x 3, Cooperative, No Acute Distress HEENT: Atraumatic, Normocephalic, PERRL, EOMI, Sclera Non Icteric Neck: Supple, Good ROM, No JVD Lungs: Clear to auscultation Cardiovascular: Regular Rhythm, Normal S1, Normal S2 Vascular: No Carotid Bruits Abdomen: Bowel Sounds Present, Soft Extremities: No edema Neurological: No Focal Motor or Sensory Deficit Psych/Mental Status: Appropriate 05/26/20 09:44: D-Dimer Quant (PE/DVT) 3.01 H* 05/27/20 05:38: WBC 5.0, RBC 2.56 L, Hgb 7.6 L, Hct 21.6 L, MCV 84.4, MCH 29.7, MCHC 35.2 D, Plt Count 83 L, MPV 9.1, Immature Gran % (Auto) 1.400 H, Neut % (Auto) 76.4 H, Lymph % (Auto) 12.1 L, [place] % (Auto) 8.9, Eos % (Auto) 0.8, Baso % (Auto) 0.4, Absolute Neuts (auto) 3.8, Nucleated RBC % 0.4 05/27/20 05:38: Sodium 139, Potassium 4.0, Chloride 107, Carbon Dioxide 28.0, Anion Gap 4 L, BUN 14, Creatinine 1.14 H, Est GFR (MDRD) Af Amer 62, Est GFR (MDRD) Non-Af 51 L, BUN/Creatinine Ratio 12.3, Glucose 82, Calcium 8.5 Rhythm: Sinus rhythm Medical Necessity - Tobacco Use Smoking Status: Former smoker Assessment/Plan 1. Atrial fibrillation with RVR: Paroxysmal The patient appears to have a had an episode of paroxysmal atrial fibrillation with RVR. The etiology may be a combination of factors including her age, her underlying pulmonary condition, etc. She is not known to have other cardiovascular concerns. She did undergo evaluation with a D-dimer. It was elevated. She had a chest CT scan performed. There was no evidence of pulmonary emboli or great vessel disease. It did raise concerns about progression of her underlying carcinoma which will need to be reviewed by her special events director oncologist. She was not immediately placed on rate control therapy secondary to concerns of her hypotension. As her blood pressure improves it may be reasonable to attempt additional medical therapy such as a low-dose beta-babak. In the meantime she continues on amiodarone with a subsequent amiodarone taper. Ideally she may be a candidate for anticoagulant therapy however there is concern about pancytopenia with anemia requiring PRBCs. Thus anticoagulant therapy would have to be assessed by her special events director oncologist as to whether she is a candidate for such. 2. Hyperlipidemia She should continue lipid-lowering therapy. 3. Non-small cell lung carcinoma She continues evaluation care per [facility] hematology/oncology. Given her CT scan does raise some concerns about an increase in size of her tumor burden. This will need to be reviewed by hematology/oncology. 4. Pancytopenia She does have evidence of pancytopenia. This may be secondary to her chemotherapy, etc. Did receive PRBCs. As noted above input from her special events director/oncologist would be beneficial with respect whether or not she is a candidate for any form of anticoagulant therapy going forward if need be. Overall from a cardiac standpoint she will continue medical therapy with rate control therapy as tolerated, antiarrhythmic therapy, and if able from a hematology/oncology standpoint consideration for anticoagulant therapy. She will be asked to have future outpatient cardiovascular follow-up. This note was generated using a voice recognition system and there may be incorrect words, spelling or punctuation that were not noted when reviewing the office note prior to saving.
[2020-05-27] MEDS: Metoprolol Tartrate 25 MG Tablet 12.5 MG PO (09:59)
--- NOTE | 2020-05-27 10:02 | DCINST_ITS ---
- Discharge Diagnoses Current Active Problems: Current Active and Chronic Problems (Last Reviewed 04/30/19 @ 12:30 by Jericho Kee) Pancytopenia (Acute) New onset A. fib with RVR (Acute) Hyperlipidemia (Chronic) Non-small cell lung cancer (Chronic) You will use the following diet at home:: Regular Your food should be the consistency of: Regular Discharge Activity: Return to Normal Activity Weight Bearing Status: Weight bearing as tolerated Call your doctor if you observe: Fever of 101 or Higher, Shortness of breath, Dizziness, Fainting spells, Chest pain, Increased palpitations (irregular heartbeat), Uncontrolled pain Allergies/Adverse Reactions: Allergies No Known Allergies Allergy (Verified 05/25/20 17:04) Medications to take at Discharge Simvastatin [Zocor] 20 mg PO QHS 01/26/14 traMADol [Ultram] 50 mg PO Q6H PRN PRN #20 tab 01/26/14 denosumab 60 mg/mL subcutaneous syringe 60 mg SC .[id number] 10/30/18 duloxetine 30 mg capsule,delayed release 60 mg PO DAILY 10/30/18 meloxicam 15 mg tablet 15 mg PO DAILY 10/30/18 Calcium (Elemental) [Os-Marlo 500] 500 mg PO DAILY@0800 05/25/20 Magnesium Oxide [Magnesium] 400 mg PO DAILY 05/25/20 Pantoprazole Sodium [Protonix] 40 mg PO DAILY 05/25/20 Potassium Chloride [Klor-Con M20] 20 meq PO DAILY 05/25/20 Amiodarone HCl [Cordarone] 200 mg PO TID #90 tab 05/27/20 Metoprolol Tartrate [Lopressor (beta babak)] 12.5 mg PO BID #90 tab 05/27/20 The following prescriptions were given: Amiodarone HCl [Cordarone] 200 mg PO TID #90 tab Transmission Status: Pending to [id number] Metoprolol Tartrate [Lopressor (beta babak)] 12.5 mg PO BID #90 tab Transmission Status: Pending to [id number] Primary Care Physician: Dennis Alvarenga MD [Primary Care Provider] - Please follow up with your Primary Care Physician in: 2 weeks. Test Results: Test results from this visit will be discussed in further detail at your follow- up appointment, if applicable. Please Follow Up With: Eric Savage MD When: as scheduled. Please Follow Up With: Adrian Gibbs MD When: 2-3 weeks.
--- NOTE | 2020-05-27 10:34 | PHA.DC.MC ---
Pharmacy Service has performed discharge medication reconciliation and counseling for this patient. 1. AMIODARONE 200MG PO TID X 1 WEEK (THRU 06/01), THEN 200MG PO BID (06/02-06/15), THEN 200MG PO DAILY THEREAFTER 2. METOPROLOL TARTRATE 12.5MG PO BID Per Cardiology note, pt will discuss anticoagulation with oncologist. The patient's discharge medication list was reviewed for discrepancies and discrepancies were resolved. Home Medications Simvastatin [Zocor] 20 mg PO QHS 01/26/14 traMADol [Ultram] 50 mg PO Q6H PRN PRN #20 tab 01/26/14 denosumab 60 mg/mL subcutaneous syringe 60 mg SC .[id number] 10/30/18 duloxetine 30 mg capsule,delayed release 60 mg PO DAILY 10/30/18 meloxicam 15 mg tablet 15 mg PO DAILY 10/30/18 Calcium (Elemental) [Os-Marlo 500] 500 mg PO DAILY@0800 05/25/20 Magnesium Oxide [Magnesium] 400 mg PO DAILY 05/25/20 Pantoprazole Sodium [Protonix] 40 mg PO DAILY 05/25/20 Potassium Chloride [Klor-Con M20] 20 meq PO DAILY 05/25/20 Amiodarone HCl [Cordarone] 200 mg PO TID #90 tab 05/27/20 Metoprolol Tartrate [Lopressor (beta babak)] 12.5 mg PO BID #90 tab 05/27/20 The patient was counseled on the following discharge medications and changes in medications for homegoing were reviewed. The Reason for Use, instructions for use, and potential side effects were reviewed for all new medications. The patient's questions regarding all of their medications were answered. The patient was able to verbally demonstrate an understanding of their discharge medications. Patient counseled by pharmacy informatics managerBen.
--- NOTE | 2020-05-27 10:58 | PCM.DC.SUM ---
Discharge Date and Diagnosis - Problem List Patient Problems: Active and Suspected Problems (Last Reviewed 04/30/19 @ 12:30 by Jericho Kee) Pancytopenia (Acute) New onset A. fib with RVR (Acute) Date of Admission: 05/25/20 Date of Discharge: 05/27/20 - Primary Discharge Diagnosis Acute Problems: Active Problems (Last Reviewed 04/30/19 @ 12:30 by Jericho Kee) #1 new onset paroxysmal atrial fibrillation with RVR. #2 pancytopenia/neutropenia without fever. #3 acute anemia, due to chemotherapy . No evidence of blood loss. - Secondary Discharge Diagnosis Chronic Problems: Chronic Problems (Last Reviewed 04/30/19 @ 12:30 by Jericho Kee) Hyperlipidemia (Chronic) Non-small cell lung cancer (Chronic) Hospital Course and Treatment Imaging Results: Clinical Impression(s) from Imaging Studies Chest X-Ray 05/25/20 18:18 IMPRESSION: No acute pulmonary process Electronically Signed: Bernard Steven MD at 18:42 EST , Service support , Chest CTA 05/26/20 10:19 IMPRESSION: No demonstrated PE, or thoracic aortic aneurysm or dissection Previously described right middle lobe nodule has doubled in size since the previous study, on the previous study measured approximately 3.7 mm, on current study it measures 7.4 mm No superimposed infiltrate or groundglass opacifications Degenerative bony changes Electronically Signed: Bernard Steven MD at 11:51 EST , Service support , Dr. Gibbs, cardiology. Operations: None Procedures: 2-D Echocardiogram, Blood transfusion, EKG Summary of Care Provided: Patient seen and examined on the day of discharge and appeared to be stable to be discharged home. She has no complaints. Her vital signs were stable. She remained in sinus rhythm and heart rate has been controlled. This is a 64 years old female patient was sent from Dr. Sandoval's office because of new onset atrial fibrillation, found to have pancytopenia and acute anemia and she was admitted for evaluation and treatment. #1 new onset paroxysmal atrial fibrillation with RVR: Patient converted back to sinus rhythm in the ED and she remained in sinus rhythm throughout admission. EKG reviewed, revealed normal sinus rhythm, no acute segment changes. Troponin was negative x3. Serum potassium as well as TSH is normal. Magnesium is low which was replaced and corrected. 2D echocardiogram revealed normal LV size and function, ejection fraction was 65%, RVSP of 24. Cardiology consulted and patient was started on tapering amiodarone as well as metoprolol. Patient was not a candidate for anticoagulation because of thrombocytopenia and anemia. Patient was discharged on metoprolol and amiodarone for rate control, no anticoagulation prescribed upon discharge. #2 pancytopenia/neutropenia without fever: Secondary to chemotherapy. She was started on Granix injections and also received blood transfusion. WBC was 1400 which improved to 5000, platelet count improved from 69,000 up to 82,000 and hemoglobin went up from 6.6 g/dL to 7.6 g/dL after transfusion 1 unit of packed RBCs. There was no evidence of active bleeding. All 3 cell lines improved after Granix and blood transfusion, absolute neutrophil count returned back to normal, it was 3800 upon discharge which is normal. Patient had no fever throughout admission. #3 elevated D-dimer: CTA chest showed no PE or dissection. No infiltrate or consolidation. #4 acute kidney injury: Probably secondary to dehydration and poor oral intake, chemotherapy. Treated with IV fluids. Admission creatinine was 1.4, came down to 1.14 upon discharge. #5 non-small cell lung cancer: Currently on chemotherapy and radiation, last chemotherapy received was on May 12, 2020. Plan to follow-up with oncology as outpatient. Patient discharged home in a stable medical condition, discharged on amiodarone 200 mg p.o. 3 times daily for 1 week then 200 mg p.o. twice daily for 2 weeks and then 200 mg p.o. daily, discharged on metoprolol 12.5 mg p.o. twice daily, no anticoagulation given upon discharge, continued on her other previous home medications without any changes, plan to follow-up with cardiology in 2 to 3 weeks, follow-up with oncology as scheduled and recommended follow-up with PCP in 2 weeks. This note was generated with [employer]ation software. It may contain incorrect words, spelling, and punctuation that were not noted in checking the note before signing. Patient Problems: Active and Suspected Problems (Last Reviewed 04/30/19 @ 12:30 by Jericho Kee) Pancytopenia (Acute) New onset A. fib with RVR (Acute) - Physical Exam Vitals/I&O's: Vital Signs Temp Pulse Resp BP Pulse Ox 98.1 F 91 18 112/70 98 05/27/20 09:05 05/27/20 09:59 05/27/20 09:05 05/27/20 09:59 05/27/20 09:05 Oxygen Delivery Method Room Air Weight: 177 lb 4.026 oz Body Mass Index (BMI) 28.5 Intake and Output for Last 24 Hours 05/25/20 05/26/20 05/27/20 23:59 23:59 23:59 Intake Total 476.25 / 716.25 1382.5 / 1502.5 1320 / 1320 Balance 476.25 / 716.25 1382.5 / 1502.5 1320 / 1320 General: Alert, Oriented x3, Cooperative, No apparent distress HEENT: Atraumatic, PERRLA, EOMI, Normocephalic Oral: Moist Mucosa, No Gingival or Mucosal Lesions/ Ulcerations Neck: Supple, No JVD, Negative Carotid Bruits, Trachea Midline, Thyroid Normal Size and Texture Lungs: Clear to auscultation, Normal air movement, No rhonchi, No wheeze, No rales Cardiovascular: Regular rate, Regular Rhythm, Normal S1, Normal S2, PMI Normal Abdomen: Bowel Sounds Present, Soft, Non Tender, Non-Distended, No Hepato-splenomegaly Extremities: No clubbing, No cyanosis, No edema Skin: No rashes, No breakdown Lymphatic: No Cervical, Supraclavicular, or Inguinal Adenopathy Neurological: Cranial nerves II-XII grossly intact, Neuro grossly intact Psych/Mental Status: Normal Affect, Appropriate Laboratory Results 05/26/20 06:10: Diff Path Review Reviewed 05/26/20 08:30: Blood Type O POSITIVE, Antibody Screen NEGATIVE, Crossmatch See Detail 05/27/20 05:38: WBC 5.0, RBC 2.56 L, Hgb 7.6 L, Hct 21.6 L, MCV 84.4, MCH 29.7, MCHC 35.2 D, RDW Std Deviation 36.3, RDW Coeff of Sancho 12.0, Plt Count 83 L, MPV 9.1, Immature Gran % (Auto) 1.400 H, Neut % (Auto) 76.4 H, Lymph % (Auto) 12.1 L, [place] % (Auto) 8.9, Eos % (Auto) 0.8, Baso % (Auto) 0.4, Absolute Neuts (auto) 3.8, Absolute Lymphs (auto) 0.60 L, Nucleated RBC % 0.4, Differential Comment SCANNED, Platelet Estimate MOD 05/27/20 05:38: Sodium 139, Potassium 4.0, Chloride 107, Carbon Dioxide 28.0, Anion Gap 4 L, BUN 14, Creatinine 1.14 H, Estim Creat Clear Calc 46.67, Est GFR (MDRD) Af Amer 62, Est GFR (MDRD) Non-Af 51 L, BUN/Creatinine Ratio 12.3, Glucose 82, Calcium 8.5 Current Medications Acetylcysteine (Acetylcysteine (Mucomyst Oral) 20% Soln) 1,200 mg PO BID [facility] Last Admin: 05/27/20 08:57 Dose: 1,200 mg Documented by: Amiodarone HCl (Amiodarone 200 Mg Tablet) 200 mg PO TID [facility] Stop: 06/01/20 22:01 Last Admin: 05/27/20 05:40 Dose: 200 mg Documented by: Amiodarone HCl (Amiodarone 200 Mg Tablet) 200 mg PO BID [facility] Stop: 06/15/20 22:01 Amiodarone HCl (Amiodarone 200 Mg Tablet) 200 mg PO DAILY [facility] Atorvastatin Calcium (Atorvastatin Calcium 10 Mg Tablet) 10 mg PO QHS [facility] Last Admin: 05/26/20 20:27 Dose: 10 mg Documented by: Duloxetine HCl (Duloxetine Hcl 60 Mg Capsule) 60 mg PO DAILY [facility] Last Admin: 05/27/20 08:57 Dose: 60 mg Documented by: Sodium Chloride () 1,000 mls @ 75 mls/hr IV .[id number] [facility] Last Admin: 05/27/20 05:37 Dose: 75 mls/hr Documented by: Sodium Chloride () 250 mls @ 15 mls/hr IV .[id number] PRN PRN Reason: Saline Flush Sodium Chloride () 250 mls @ 15 mls/hr IV .[id number] PRN PRN Reason: Additional IVPB Infusion Meloxicam (Meloxicam 15 Mg Tablet) 15 mg PO DAILY [facility] Last Admin: 05/27/20 08:57 Dose: 15 mg Documented by: Metoprolol Tartrate (Metoprolol Tartrate 25 Mg Tablet) 12.5 mg PO BID [facility] Last Admin: 05/27/20 09:59 Dose: 12.5 mg Documented by: Nutritional Formula (Lactose Free) (Ensure Enlive 120 Ml Liquid) 120 ml PO 4X/DAY [facility] Last Admin: 05/27/20 08:57 Dose: Not Given Documented by: Ondansetron HCl (Ondansetron 4 Mg/2 Ml Vial) 4 mg IV Q8H PRN PRN PRN Reason: NAUSEA/VOMITING Pantoprazole Sodium (Pantoprazole Sodium 40 Mg Tablet) 40 mg PO DAILY [facility] Last Admin: 05/27/20 08:57 Dose: 40 mg Documented by: Potassium Chloride (Potassium Chloride 20 Meq Tablet) 20 meq PO DAILYCM [facility] Last Admin: 05/27/20 08:57 Dose: 20 meq Documented by: Sodium Chloride (0.9% Saline Lock 10 Ml Syringe) 10 - 40 ml IV UD PRN PRN Reason: SALINE FLUSH Tbo-Filgrastim (Tbo-Filgrastim 300 Mcg/0.5 Ml Ml) 300 mcg SC DAILY [facility] Last Admin: 05/27/20 08:57 Dose: 300 mcg Documented by: Tramadol HCl (Tramadol 50 Mg Tablet) 50 mg PO Q6H PRN PRN PRN Reason: Pain Score 1-10 Last Admin: 05/26/20 15:05 Dose: 50 mg Documented by: Zolpidem Tartrate (Zolpidem Tartrate 5 Mg Tablet) 5 mg PO QHS PRN PRN PRN Reason: SLEEP Last Admin: 05/26/20 20:26 Dose: 5 mg Documented by: Discharge Activity: Return to Normal Activity Weight Bearing Status: Weight bearing as tolerated Call your doctor if you observe: Fever of 101 or Higher, Shortness of breath, Dizziness, Fainting spells, Chest pain, Increased palpitations (irregular heartbeat), Uncontrolled pain Home Medications: Medications to take at Discharge Simvastatin [Zocor] 20 mg PO QHS 01/26/14 traMADol [Ultram] 50 mg PO Q6H PRN PRN #20 tab 09/21/14 denosumab 60 mg/mL subcutaneous syringe 60 mg SC .[id number] 10/30/18 duloxetine 30 mg capsule,delayed release 60 mg PO DAILY 10/30/18 meloxicam 15 mg tablet 15 mg PO DAILY 10/30/18 Calcium (Elemental) [Os-Marlo 500] 500 mg PO DAILY@0800 05/25/20 Magnesium Oxide [Magnesium] 400 mg PO DAILY 05/25/20 Pantoprazole Sodium [Protonix] 40 mg PO DAILY 05/25/20 Potassium Chloride [Klor-Con M20] 20 meq PO DAILY 05/25/20 Amiodarone HCl [Cordarone] 200 mg PO TID #90 tab 05/27/20 Metoprolol Tartrate [Lopressor (beta babak)] 12.5 mg PO BID #90 tab 05/27/20 Following Prescriptions Were Given to Patient: Amiodarone HCl [Cordarone] 200 mg PO TID #90 tab Transmission Status: Received by [id number] Metoprolol Tartrate [Lopressor (beta babak)] 12.5 mg PO BID #90 tab Transmission Status: Received by [id number] Primary Care Physician: Dennis Alvarenga MD [Primary Care Provider] - Please follow up with your Primary Care Physician in: 2 weeks. Please Follow Up With: Eric Savage MD When: as scheduled. Please Follow Up With: Adrian Gibbs MD When: 2-3 weeks. Disposition: Home Minutes spent on discharge:: 32 Patient Condition:: Stable Medical Necessity - Tobacco Use Smoking Status: Former smoker Meaningful Use Info Meaningful Use Diagnoses (Choose all that apply): None applicable Inpatient E&M: [id number] [facility]
== END 2020-05-27 12:40 | disposition home or self-care (01) | DRG 309 ==
LOC: ED 19:39 → PCU 20:31
PROVIDERS: Internal Medicine Cardiovascular Disease; Admitting Provider Family Medicine; Emergency Provider Emergency Medicine; PCP Family Medicine; Visit Provider Hospitalist
DX: I48.0 Paroxysmal atrial fibrillation (principal); C34.90 Malignant neoplasm of unspecified part of unspecified bronchus or lung; D61.818 Other pancytopenia; N17.9 Acute kidney failure, unspecified; E78.00 Pure hypercholesterolemia, unspecified; D64.81 Anemia due to antineoplastic chemotherapy; T45.1X5A Adverse effect of antineoplastic and immunosuppressive drugs, initial encounter; E86.0 Dehydration; E78.5 Hyperlipidemia, unspecified; F32.9 Major depressive disorder, single episode, unspecified; Z87.891 Personal history of nicotine dependence; Z85.118 Personal history of other malignant neoplasm of bronchus and lung
CPT/HCPCS: 36415; 71045; 71275; 80048; 83735; 84443; 84484; 85025; 85379; 85610; 85730; 86850; 86900; 86901; 86920; 86922; 93005; 93306; 97802; 99284; J7030; J7040; P9040; Q9957; Q9967; A4216; J1447

== ENCOUNTER → 2020-09-02 08:00 | Outpatient (CLI) | payer OTHER, SELFPAY ==
[2020-09-02 10:28] LABS: Absolute Lymphocyte Count 0.81 X10^3/uL (0.83-4.51); Absolute Neutrophil Count 3.2 X10^3/uL (2.0-7.7); Basophil# 0.03 X10^3/uL; Basophil% 0.6 % (0-1); Eosinophil# 0.27 X10^3/uL; Eosinophils% 5.8 % (0-5); Hematocrit 35.7 % (37-47); Hemoglobin 11.1 g/dL (12.0-15.0); Lymphocyte # 0.81 X10^3/ul (0.83-4.51); Lymphocyte % 17.5 % (19-41); Mean Corp Hgb Conc 31.1 g/dL (32-36); Mean Corpuscular Hgb 30.8 pg (27.0-32.0); Mean Corpuscular Volume 99.2 fL (81-99); Mean Platelet Vol. 9.5 fl (6.2-12.0); Monocyte# 0.31 X10^3/uL; Monocyte% 6.7 % (0-10); NRBC Flagged by Analyzer 0 % (0-5); Neutrophil # 3.19 X10^3/uL (2.7-7.7); Platelet Count 252 K/mm3 (150-450); RBC Distribution Width CV 11.9 % (11.6-14.6); RBC Distribution Width SD 43.2 fl (35.1-43.9); White Blood Count 4.6 K/mm3 (4.4-11.0)
[2020-09-02 10:40] LABS: Vitamin D,25 Hydroxy 35.7 ng/mL
[2020-09-02 10:41] LABS: ALB/GLOB Ratio 0.8 RATIO (0.9-2.4); AST(SGOT) 22 U/L (15-37); Alanine Aminotransfer ALT/SGPT 25 U/L (13-56); Albumin, Serum 3.4 g/dL (3.2-5.0); Alkaline Phosphatase 176 U/L (45-117); Anion Gap 2 (5-15); BUN 17 mg/dL (7-18); BUN/Creat Ratio 14.3 RATIO (10-20); Calcium,Total 8.7 mg/dL (8.5-10.1); Chloride 108 mmol/L (98-107); Cholesterol 189 mg/dL (200); Creatinine, Serum 1.19 mg/dL (0.55-1.02); EST Glomerular Filtration Rate 48 mL/min (>60); Est Glom Filt Rate - Afr Amer 59 mL/min (>60); Globulin 4.2 g/dL (2.2-4.2); Glucose 77 mg/dL (74-106); High Density Lipoprotein 57 mg/dL; Potassium 3.8 mmol/L (3.5-5.1); Protein, Total 7.6 g/dL (6.4-8.2); Sodium Level 140 mmol/L (136-145); Triglycerides 133 mg/dL; Very Low Density Lipoprotein 27 mg/dL (5-40)
== END ==
PROVIDERS: PCP Family Medicine; Referring Provider Family Medicine; Visit Provider Family Medicine
DX: Z00.00 Encounter for general adult medical examination without abnormal findings (principal); I48.91 Unspecified atrial fibrillation; E78.00 Pure hypercholesterolemia, unspecified; E55.9 Vitamin D deficiency, unspecified
CPT/HCPCS: 36415; 80053; 80061; 82306; 85025

== ENCOUNTER 2020-09-14 12:57 | Emergency (ER) | payer OTHER, SELFPAY ==
[2020-09-14 12:57] VITALS: BP 157/90; BP 89/69; PULSE 80; PULSE 82; RESP 18; RESP 20; TEMP 36.6; O2SAT 93
--- NOTE | 2020-09-14 13:13 | EKG12_ITS ---
Test Reason : SOB Blood Pressure : / mmHG Vent. Rate : 080 BPM Atrial Rate : 080 BPM P-R Int : 238 ms QRS Dur : 094 ms QT Int : 400 ms P-R-T Axes : 050 007 042 degrees QTc Int : 461 ms Sinus rhythm with 1st degree A-V block Possible Left atrial enlargement Borderline ECG Confirmed by HEMANTH DE LOS SANTOS, ANATOLY ([id number]), map editor ZAHIRA JANE ([id number]) on 09/16/2020 8:23:43 AM Referred By: Confirmed By:ANATOLY SAXENA MD
--- NOTE | 2020-09-14 13:19 | ED.RN ---
dr mendoza dc'ed covid precautions
[2020-09-14 13:28] VITALS: O2SAT 94
--- NOTE | 2020-09-14 13:30 | RAD_ITS ---
STUDY: X-RAY CHEST REASON FOR EXAM: Female, 64 years old. Dyspnea, dyspnea on exertion, Hx COPD and lung CA TECHNIQUE: PA and lateral views of the chest. COMPARISON: Comparison is made with prior study of May 2020. FINDINGS: EKG electrodes are seen. Since prior study, the patient underwent partial right lung resection with radiation therapy. There now is evidence of elevation of the right hemidiaphragm with increased markings in the right thyroid hilar region suggestive of postradiation fibrosis and/or pneumonitis. The left lung is clear. Normal size heart. Normal mediastinum and lizzy. Normal visualized pulmonary arteries. Normal visualized aortic arch and descending thoracic aorta. There is a mild dextroscoliosis of the thoracic spine. Prior fusion in the upper lumbar spine. There is no demonstrated abnormality of the visualized soft tissue structures of the upper abdomen. RAD/Chest PA and Lateral IMPRESSION: Status post right lung surgery with the increased markings in the right perihilar region suggestive of postradiation fibrosis and/or pneumonitis. Electronically Signed: Jalen Montgomery MD at 13:58 EDT , Service support ,
[2020-09-14 13:39] LABS: Absolute Lymphocyte Count 1.05 X10^3/uL (0.83-4.51); Absolute Neutrophil Count 4.1 X10^3/uL (2.0-7.7); Basophil# 0.02 X10^3/uL; Basophil% 0.3 % (0-1); Eosinophil# 0.27 X10^3/uL; Eosinophils% 4.6 % (0-5); Hemoglobin 12.3 g/dL (12.0-15.0); Lymphocyte # 1.05 X10^3/ul (0.83-4.51); Lymphocyte % 17.9 % (19-41); Mean Corp Hgb Conc 33.2 g/dL (32-36); Mean Corpuscular Hgb 31.9 pg (27.0-32.0); Mean Corpuscular Volume 95.9 fL (81-99); Monocyte# 0.41 X10^3/uL; NRBC Flagged by Analyzer 0 % (0-5); Neutrophil # 4.08 X10^3/uL (2.7-7.7); Neutrophil % 69.7 % (47-70); Platelet Count 257 K/mm3 (150-450); RBC Distribution Width CV 12.2 % (11.6-14.6); RBC Distribution Width SD 42.4 fl (35.1-43.9); Red Blood Count 3.86 M/mm3 (4.2-5.4); White Blood Count 5.9 K/mm3 (4.4-11.0)
[2020-09-14 13:52] LABS: Anion Gap 4 (5-15); BUN 23 mg/dL (7-18); BUN/Creat Ratio 16.7 RATIO (10-20); Calcium,Total 8.9 mg/dL (8.5-10.1); Chloride 106 mmol/L (98-107); Creatinine, Serum 1.38 mg/dL (0.55-1.02); EST Glomerular Filtration Rate 41 mL/min (>60); Est Glom Filt Rate - Afr Amer 49 mL/min (>60); Estimated Creatinine Clearance 38.55 ml/min; Glucose 117 mg/dL (74-106); Potassium 4.9 mmol/L (3.5-5.1); Sodium Level 135 mmol/L (136-145)
--- NOTE | 2020-09-14 13:54 | EDS_ITS ---
HPI History of Present Illness Chief Complaint: Shortness of Breath Informant: patient Onset/Context/Timing Onset: Days Context: gradual, activity on onset, rest and light activity Timing: Continuous and Waxes and wanes Quality: Positive for Dyspnea on exertion; Negative for Orthopnea, PND and Wheezing Current Severity: Mild Maximum Severity: Severe Worsened by: Exertion Relieved by: Nothing Associated Symptoms cough and sweats; Negative for rhinorrhea, post nasal drip, ear pain, fever, sore throat, subjective, chills, clear sputum, white sputum, yellow sputum or green sputum Chest Pain: Positive for None Narrative Narrative: Patient is a 64-year-old woman with stage III lung cancer diagnosed l year. Last radiation treatment May of this year last chemo end of August. She is status post resection on the right. She also has had back surgery. She contacted her oncologist. Dr. Adrian Ann was electronics technician apprentice for Dr. Savage. He recommended she come to the emergency department. She denies any contact with anyone that is been ill. She denies any infectious symptoms. She denies history of PE or DVT. She denies leg pain, swelling discoloration. She denies GI or symptoms. She has no other complaints. PE Risk Factors: Positive for Cancer Prior similar symptoms: No Recent Illness/Hospitalization: Yes [facility] Medical History (Updated 09/14/20 @ 14:[address] Lukasz Flores MD) Back pain Difficulty balancing Hemorrhoid Hyperlipidemia Non-small cell lung cancer PAF (paroxysmal atrial fibrillation) Home Medications simvastatin 20 mg PO QHS 01/26/14 [History Last Taken 05/24/20] tramadol 50 mg PO Q6H PRN PRN #20 tab 01/26/14 [Rx Last Taken Unknown] denosumab 60 mg/mL subcutaneous syringe 60 mg SC .[id number] 10/30/18 [History Last Taken 7 Months Ago ~10/24/19] duloxetine 30 mg capsule,delayed release 60 mg PO DAILY 10/30/18 [History Last Taken 05/24/20] meloxicam 15 mg tablet 15 mg PO DAILY 10/30/18 [History Last Taken 05/25/20] calcium carbonate 500 mg PO DAILY@0800 05/25/20 [History Last Taken 05/25/20] magnesium oxide 400 mg PO DAILY 05/25/20 [History Last Taken 05/24/20] pantoprazole 40 mg PO DAILY 05/25/20 [History Last Taken 05/25/20] potassium chloride 20 meq PO DAILY 05/25/20 [History Last Taken 05/24/20] amiodarone 200 mg tablet 200 mg PO DAILY #90 tab 07/03/20 [Rx Last Taken Unknown] metoprolol tartrate 25 mg tablet 12.5 mg PO BID #90 tab 07/03/20 [Rx Last Taken Unknown] Allergy/AdvReac Type Severity Reaction Status Date / Time No Known Allergies Allergy Verified 09/14/20 12:59 Family History Other Cancer Heart disease Surgical History History of back surgery History of carpal tunnel repair History of foot surgery Social History (Updated 09/14/20 @ 13:[address] Lukasz Flores MD) Smoking Status: Former smoker alcohol intake: never substance use type: does not use ROS ROS ED Constitutional Constitutional ED: Reports sweats and weight loss; Denies chills or fever(s) Eyes Eyes: Denies blurry vision or change in vision ENT ENT ED: Denies ear pain, rhinorrhea or sore throat Cardiovascular Cardiovascular: Denies chest pain, orthopnea, palpitations, paroxysmal nocturnal dyspnea or racing heartbeat Respiratory/Chest Respiratory/Chest: Reports cough, dyspnea and dyspnea on exertion; Denies orthopnea, paroxysmal nocturnal dyspnea or sputum Gastrointestinal Gastrointestinal: Denies abdominal pain, constipation, diarrhea, melena, nausea, vomiting or other Genitourinary Genitourinary ED: Denies dysuria, hematuria or urinary frequency Musculoskeletal Musculoskeletal: Denies arthralgias, back pain, myalgias or neck pain Integumentary Denies rash Neurologic Neurologic: Denies headache(s) or weakness Psychiatric Psychiatric: Denies depression Endocrine Endocrinology: Denies polydipsia, polyphagia or polyuria EXAM Physical Exam Const Vital Signs: 09/14/20 12:57 09/14/20 13:28 09/14/20 14:31 Temperature 97.9 F Temperature Source Temporal Pulse Rate 80 68 Respiratory Rate 18 18 Respiratory Effort Normal Respiratory Depth Normal Respiratory Pattern Normal Blood Pressure 89/69 L 125/70 H Blood Pressure Mean 75 88 Pulse Ox 93 96 Oxygen Delivery Method Room Air Room Air Room Air Positive well nourished, well developed and obese General Appearance ED: well developed and other Patient does appear tachypneic. Nutritional Appearance: obese HEENT Reports TM's clear and moist mucous membranes atraumatic Tympanic Membrane ED: Yes TM's clear Eyes PERRL and EOMs intact bilaterally General Eye ED: Yes pale conjunctiva; Negative for scleral icterus Neck no lymphadenopathy, supple, no meningeal signs and no JVD Neck Narrative: Trachea is midline. There is no inspiratory expiratory stridor. General: Negative for tenderness Resp normal respiratory effort and clear to auscultation bilaterally Auscultation: diminished lung sounds right lower Cardio regular rate, regular rhythm, S1 normal heart sound, S2 normal heart sound and no murmurs GI non-tender, non-distended and no masses Auscultation: normoactive bowel sounds Palpation: soft Back/Spine no CVA tenderness and normal to inspection Extremity normal to inspection Extremity Narrative: There is no asymmetry, swelling, discoloration, leg vein distention, palpable cords or tenderness along the distribution of the deep venous system. General Extremety ED: Negative for tenderness Neuro oriented x3, CN's II-XII intact bilaterally and no sensory deficits noted Sensorium / Orientation: alert and oriented to person Motor Exam: strength 5/5 throughout Psych mental status grossly normal Thought Process: normal thought process Skin no wounds Lesions: no lesions Rashes: no rashes MDM MDM Lab Data Attestation: I reviewed the patient's lab results. Lab results narrative: With history of cancer, dyspnea and slight cough will obtain chest x-ray to assess for pleural effusion since she has decreased breath sounds, pneumonia. If chest x-ray does not explain patient's symptoms will obtain CTA to evaluate for pulmonary embolus since she is at high risk. CBC was obtained to assess white count H&H to rule out anemia and elevated white count. Patient mental panel to assess renal function in the event that a CTA as needed. Since Dr. Ann inform me that her pulse ox dropped to 80% at home with ambulation amatory pulse ox was obtained. She went from 99 to 98%. Plan is discharged home. Patient was made aware of results. Labs: Laboratory Results - last 24 hr 09/14/20 09/14/20 13:23 13:23 WBC 5.9 RBC 3.86 L Hgb 12.3 Hct 37.0 MCV 95.9 MCH 31.9 MCHC 33.2 RDW Std Deviation 42.4 RDW Coeff of Sancho 12.2 Plt Count 257 MPV 9.0 Immature Gran % (Auto) 0.500 Neut % (Auto) 69.7 Lymph % (Auto) 17.9 L Clare % (Auto) 7.0 Eos % (Auto) 4.6 Baso % (Auto) 0.3 Absolute Neuts (auto) 4.1 Absolute Lymphs (auto) 1.05 Nucleated RBC % 0 Sodium 135 L Potassium 4.9 Chloride 106 Carbon Dioxide 25.0 Anion Gap 4 L BUN 23 H Creatinine 1.38 H Estim Creat Clear Calc 38.55 Est GFR (MDRD) Af Amer 49 L Est GFR (MDRD) Non-Af 41 L BUN/Creatinine Ratio 16.7 Glucose 117 H Calcium 8.9 Radiography Chest X-Ray - ED: 2 View, Read by ED Physician, Heart, Bony Structures and - (There is volume loss on the right side with elevation of the right hemidiaphragm. The right hilum is abnormal. This was compared to x-ray obtained May 25, 2020. These changes are new and significant.) Diagnostic Testing: Radiology Impression Chest X-Ray 09/14/20 13:30 IMPRESSION: Status post right lung surgery with the increased markings in the right perihilar region suggestive of postradiation fibrosis and/or pneumonitis. Electronically Signed: Jalen Montgomery MD at 13:58 EDT , Service support , Chest CTA 09/14/20 14:02 IMPRESSION: Status post resection of the nodular density in the peripheral lateral aspect of the right middle lobe with the resultant postoperative changes and volume loss in the right hemithorax. Findings suggestive of a postradiation pneumonitis/fibrosis involving the medial aspect of the right upper and right lower lobes. Stable 1.9 cm well-defined hypodense nodule in the left adrenal gland. Electronically Signed: Jalen Montgomery MD at 14:33 EDT , Service support , Reviewed CTA and read radiologist interpretation. Suspect patient's dyspnea which has been gradual over the past several months is due to radiation pneumonitis/fibrosis. Plan is to discharge to home to follow-up with oncologist. EKG Initial EKG: Attestation: I personally reviewed and interpreted this EKG as follows: Interpretation: Sinus Rhythm Comments: Sinus rhythm with a ventricular rate of 80 and first-degree AV block. DC interval 238 ms. Castration 94 ms. QT duration 400 ms. [place] is normal. There is significant artifact noted in the precordial leads. 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, Chronic renal insufficiency, stage II (mild) Instructions: ED Dyspnea Prescriptions: No Action amiodarone 200 mg tablet 200 mg PO DAILY Qty: 90 RF: 3 metoprolol tartrate 25 mg tablet 12.5 mg PO BID Qty: 90 RF: 3 simvastatin 20 MG tablet 20 mg PO QHS RF: 0 tramadol 50 MG tablet 50 mg PO Q6H PRN PRN (Reason: Pain) Qty: 20 RF: 0 duloxetine 30 mg capsule,delayed release(DR/EC) 60 mg PO DAILY RF: 0 meloxicam 15 mg tablet 15 mg PO DAILY RF: 0 denosumab 60 mg/mL syringe 60 mg SC .[id number] RF: 0 potassium chloride 20 MEQ tablet,ER particles/crystals 20 meq PO DAILY RF: 0 calcium carbonate 500 MG tablet 500 mg PO DAILY@0800 RF: 0 pantoprazole 40 MG tablet 40 mg PO DAILY RF: 0 magnesium oxide 400 MG tablet 400 mg PO DAILY RF: 0 Primary Care Provider: Dennis Alvarenga Referrals: Eric Savage MD [STAFF PHYSICIAN] - Dennis Alvarenga MD [Primary Care Provider] - Disposition Disposition: Home, self care
--- NOTE | 2020-09-14 14:02 | CT_ITS ---
STUDY: CTA CHEST REASON FOR EXAM: Female, 64 years old. Dyspnea, dyspnea on exertion stage III lung cancer. Comparison is made with prior examination dated 11/23/2020. RADIATION DOSAGE (If Supplied By Facility): CTDIvol = ( 13.16 ) mGy, DLP = ( 391.88 ) mGycm TECHNIQUE: The examination was performed with the intravenous administration of IV 100mL Isovue-370. Post-processing of the angiographic images was performed, with multiplanar reformation and 3D reconstruction. Individualized dose optimization techniques were used for this CT. COMPARISON: None. FINDINGS: Normal enhancement of the main pulmonary artery and right and left pulmonary arteries. Normal enhancement of the bilateral peripheral pulmonary arteries. There is no demonstrated pulmonary embolism. Normal thoracic aorta and visualized great vessels. There is no demonstrated aortic dissection. Normal heart and pericardium. Normal mediastinum. Normal hilar regions. Since prior study, the patient underwent partial resection of the right lung and resection of the peripheral based nodule in the lateral aspect of the right middle lobe abutting the major fissure. There now is evidence of volume loss in the right hemithorax with evidence of bronchiectasis and air bronchograms in the medial aspect of the right upper lobe and right lower lobes. 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 There is evidence of thickening of the right major fissure. Increased markings are also seen in the right lower lobe. Normal pleura. Normal chest wall structures. There are degenerative changes of thoracic spine. There is a 1.6 cm well-defined hypodense nodule in the left adrenal gland. This is essentially unchanged and most likely represents an adenoma. Increased densities are seen along the dependent portion of the gallbladder suggestive of either small gallstones are sludge. CT/CTA Chest W/WO Contrast IMPRESSION: Status post resection of the nodular density in the peripheral lateral aspect of the right middle lobe with the resultant postoperative changes and volume loss in the right hemithorax. Findings suggestive of a postradiation pneumonitis/fibrosis involving the medial aspect of the right upper and right lower lobes. Stable 1.9 cm well-defined hypodense nodule in the left adrenal gland. Electronically Signed: Jalen Montgomery MD at 14:33 EDT , Service support ,
[2020-09-14 14:31] VITALS: BP 125/70; PULSE 68; RESP 18; O2SAT 96
[2020-09-14 15:09] VITALS: O2SAT 99
[2020-09-14 15:21] VITALS: BP 122/78; PULSE 87; RESP 18; O2SAT 96
== END 2020-09-14 15:22 | disposition home or self-care (01) ==
PROVIDERS: Emergency Provider Emergency Medicine; PCP Family Medicine
DX: J70.0 Acute pulmonary manifestations due to radiation (principal); I95.9 Hypotension, unspecified; C34.90 Malignant neoplasm of unspecified part of unspecified bronchus or lung; N18.2 Chronic kidney disease, stage 2 (mild); Z87.891 Personal history of nicotine dependence
CPT/HCPCS: 71046; 71275; 80048; 85025; 93005; 99284; J7030; Q9967; A4216

== ENCOUNTER → 2020-09-14 15:48 | Outpatient (CLI) | payer OTHER, SELFPAY ==
--- NOTE | 2020-09-14 15:52 | BI_ITS ---
MAMMOGRAPHY - BILATERAL SCREENING REASON FOR EXAM: Female, 64 years old. Routine annual screening examination. PERTINENT HISTORY: Non-contributory. History of lung cancer with chemotherapy and radiation therapy and surgery. TECHNIQUE: Digital bilateral breast obie (3D mammographic acquisition) in the CC and MLO projections. 2-D mediolateral oblique (MLO) and craniocaudad (CC) views of both breasts were obtained. CAD: Full Field Digital Mammography with Computer Added Detection was performed. COMPARISON: Comparison is made with prior study dated 03/18/2019 and 06/26/2017. FINDINGS: Breast Composition: There are scattered areas of fibroglandular density. There are no dominant masses or suspicious calcifications. Stable small benign appearing bilateral axillary lymph nodes. No other significant abnormalities are identified. There has been no significant change since the prior study. BI/SCRN MAMM (CAD)W/OBIE BILAT IMPRESSION: Stable bilateral screening mammogram. Yearly follow-up mammogram recommended. (A) ASSESSMENT CATEGORY: BIRADS Category 2: Benign. A letter regarding these results will be sent to the patient by the facility within 30 days. Approximately 10% of breast cancers are not detected by mammography. A normal mammogram should not delay biopsy of a clinically suspicious abnormality. [id number] Electronically Signed: Jalen Montgomery MD at 8:21 EDT , Service support ,
== END ==
PROVIDERS: PCP Family Medicine; Referring Provider Family Medicine; Visit Provider Family Medicine
DX: Z12.31 Encounter for screening mammogram for malignant neoplasm of breast (principal)
CPT/HCPCS: 77063; 77067

== ENCOUNTER 2020-11-12 14:20 | Emergency (ER) | payer OTHER, SELFPAY ==
[2020-09-25 14:59] VITALS: BMI 29.9
[2020-11-12 14:21] VITALS: BP 159/85; PULSE 99; RESP 16; TEMP 36.3; O2SAT 97; BMI 29.8
--- NOTE | 2020-11-12 14:49 | EX.ED.DYSGE1 ---
HPI History of Present Illness Chief Complaint: Diarrhea Informant: patient Narrative Narrative: Patient is a 65-year-old female with a past medical history of lung cancer currently undergoing immunotherapy who presents to the emergency department for diarrhea. She states that over the past 5 days she is been having this diarrhea. She typically gets after a treatment. She is supposed to be getting treatments every 2 weeks. She was sent in because they oncologist thought she was becoming dehydrated. She denies any nausea or vomiting. No fevers or chills. No significant abdominal pain. No blood in the stool. No urinary symptoms. She has been taking Imodium which has not been giving her significant relief. She denies any history of C. difficile in the past. She has been having around 4 episodes per day. [facility] Medical History (Updated 11/12/20 @ 16:[address] Shahzad Guzman DO) Back pain Difficulty balancing Hemorrhoid Hyperlipidemia Non-small cell lung cancer PAF (paroxysmal atrial fibrillation) Home Medications simvastatin 20 mg PO QHS 01/26/14 [History Last Taken 05/24/20] tramadol 50 mg PO Q6H PRN PRN #20 tab 01/26/14 [Rx Last Taken Unknown] denosumab 60 mg/mL subcutaneous syringe 60 mg SC .[id number] 10/30/18 [History Last Taken 7 Months Ago ~10/24/19] duloxetine 30 mg capsule,delayed release 60 mg PO DAILY 10/30/18 [History Last Taken 05/24/20] calcium carbonate 500 mg PO DAILY@0800 05/25/20 [History Last Taken 05/25/20] pantoprazole 40 mg PO DAILY 05/25/20 [History Last Taken 05/25/20] amiodarone 200 mg tablet 200 mg PO DAILY #90 tab 11/10/20 [Rx Last Taken Unknown] umeclidinium-vilanterol [Anoro Ellipta] 1 inh INHALATION DAILY 11/12/20 [History Last Taken Unknown] Allergy/AdvReac Type Severity Reaction Status Date / Time No Known Allergies Allergy Verified 11/12/20 14:24 Family History Other Cancer Heart disease Surgical History History of back surgery History of carpal tunnel repair History of foot surgery Social History Smoking Status: Former smoker alcohol intake: never substance use type: does not use ROS ROS ED Constitutional Constitutional ED: Denies chills or fever(s) Eyes Eyes: Denies change in vision ENT ENT ED: Denies epistaxis or rhinorrhea Cardiovascular Cardiovascular: Denies chest pain or palpitations Respiratory/Chest Respiratory/Chest: Denies cough, dyspnea or dyspnea on exertion Gastrointestinal Gastrointestinal: Reports diarrhea; Denies abdominal pain, melena, nausea or vomiting Genitourinary Genitourinary ED: Denies dysuria, hematuria or urinary frequency Musculoskeletal Musculoskeletal: Denies back pain or neck pain Integumentary Denies rash Neurologic Neurologic: Denies dizziness, headache(s) or weakness EXAM Physical Exam Const Vital Signs: 11/12/20 14:21 11/12/20 16:32 Temperature 97.3 F L Temperature Source Temporal Pulse Rate 99 78 Respiratory Rate 16 16 Blood Pressure 159/85 H 115/54 L Blood Pressure Mean 109 74 Pulse Ox 97 94 Oxygen Delivery Method Room Air Room Air Positive well nourished and well developed General Appearance ED: well developed and NAD HEENT Reports normocephalic, head/scalp atraumatic and dry mucous membranes Mouth ED: Yes dry mucous membranes Mouth: dry mucous membranes Eyes PERRL and EOMs intact bilaterally Neck supple Resp normal respiratory effort and clear to auscultation bilaterally Auscultation: Negative for rales, rhonchi or wheezes Cardio regular rate, regular rhythm and no murmurs GI normal to inspection, nondistended, normoactive bowel sounds and non-tender Palpation: soft; Negative for guarding or rebound tenderness present Back/Spine no CVA tenderness Extremity normal to inspection General Extremety ED: Negative for edema or tenderness General Extremity: Negative for edema Neuro CN's II-XII intact bilaterally and no sensory deficits noted Sensorium / Orientation: alert Motor Exam: strength 5/5 throughout Psych mental status grossly normal Skin no rashes or lesions noted MDM MDM MDM Narrative Medical decision making narrative: Patient presents to the emergency department for diarrhea after immunotherapy for lung cancer. On arrival she is borderline tachycardic but otherwise normal vital signs. She is not hypotensive. She does have dry mucous membranes. Will check basic lab work to evaluate electrolyte status and start IV fluids. She otherwise has a benign physical exam without any abdominal tenderness. Patient's lab work showed a mild leukopenia. She is mildly anemic at 10.2. Her electrolytes showed her to be mildly hypokalemic which will be replaced orally. Her creatinine is 1.41 which is only slightly up from previous lab draws. Patient is feeling better after IV fluids. She does feel comfortable going home. She is given diet precautions for diarrhea. She is to follow-up with her oncologist. Return precautions for which to come back to the ED are reviewed including any worsening symptoms, significant pain, bloody diarrhea or fevers. She understands and is agreeable with plan. Discharged home in stable condition. All questions were answered. Lab Data Labs: Laboratory Results - last 24 hr 11/12/20 11/12/20 15:00 15:00 WBC 3.6 L RBC 3.30 L Hgb 10.2 L Hct 30.9 L MCV 93.6 MCH 30.9 MCHC 33.0 RDW Std Deviation 49.6 H RDW Coeff of Sancho 14.5 Plt Count 237 MPV 8.9 Immature Gran % (Auto) 0.800 Neut % (Auto) 62.3 Lymph % (Auto) 22.5 [place] % (Auto) 11.9 H Eos % (Auto) 1.9 Baso % (Auto) 0.6 Absolute Neuts (auto) 2.2 Absolute Lymphs (auto) 0.81 L Nucleated RBC % 0 Sodium 134 L Potassium 3.2 L Chloride 104 Carbon Dioxide 23.0 Anion Gap 7 BUN 18 Creatinine 1.41 H Estim Creat Clear Calc 37.24 Est GFR (MDRD) Af Amer 48 L Est GFR (MDRD) Non-Af 40 L BUN/Creatinine Ratio 12.8 Glucose 88 Calcium 8.5 Total Bilirubin 0.40 AST 17 ALT 17 Alkaline Phosphatase 111 Total Protein 7.0 Albumin 3.3 Globulin 3.7 Albumin/Globulin Ratio 0.9 Discharge Plan Triage Chief Complaint: Diarrhea ED Provider: Shahzad Guzman Dx/Rx/DC Orders Clinical Impression: Diarrhea Instructions: Treating Diarrhea Prescriptions: No Action simvastatin 20 MG tablet 20 mg PO QHS RF: 0 tramadol 50 MG tablet 50 mg PO Q6H PRN PRN (Reason: Pain) Qty: 20 RF: 0 duloxetine 30 mg capsule,delayed release(DR/EC) 60 mg PO DAILY RF: 0 denosumab 60 mg/mL syringe 60 mg SC .[id number] RF: 0 calcium carbonate 500 MG tablet 500 mg PO DAILY@0800 RF: 0 pantoprazole 40 MG tablet 40 mg PO DAILY RF: 0 Anoro Ellipta 62.5-25 mcg/actuation blister with device 1 inh INHALATION DAILY RF: 0 amiodarone 200 mg tablet 200 mg PO DAILY Qty: 90 RF: 3 Primary Care Provider: Dennis Alvarenga Referrals: Dennis Alvarenga MD [Primary Care Provider] - 3-5 Days if not improving Disposition Disposition: Home, Self Care
[2020-11-12 15:19] LABS: Absolute Lymphocyte Count 0.81 X10^3/uL (0.83-4.51); Absolute Neutrophil Count 2.2 X10^3/uL (2.0-7.7); Basophil# 0.02 X10^3/uL; Basophil% 0.6 % (0-1); Eosinophil# 0.07 X10^3/uL; Eosinophils% 1.9 % (0-5); Hematocrit 30.9 % (37-47); Hemoglobin 10.2 g/dL (12.0-15.0); Lymphocyte # 0.81 X10^3/ul (0.83-4.51); Lymphocyte % 22.5 % (19-41); Mean Corpuscular Hgb 30.9 pg (27.0-32.0); Mean Corpuscular Volume 93.6 fL (81-99); Mean Platelet Vol. 8.9 fl (6.2-12.0); Monocyte# 0.43 X10^3/uL; Monocyte% 11.9 % (0-10); NRBC Flagged by Analyzer 0 % (0-5); Neutrophil # 2.24 X10^3/uL (2.7-7.7); Neutrophil % 62.3 % (47-70); Platelet Count 237 K/mm3 (150-450); RBC Distribution Width CV 14.5 % (11.6-14.6); RBC Distribution Width SD 49.6 fl (35.1-43.9); White Blood Count 3.6 K/mm3 (4.4-11.0)
[2020-11-12 15:37] LABS: ALB/GLOB Ratio 0.9 RATIO (0.9-2.4); AST(SGOT) 17 U/L (15-37); Alanine Aminotransfer ALT/SGPT 17 U/L (13-56); Albumin, Serum 3.3 g/dL (3.2-5.0); Alkaline Phosphatase 111 U/L (45-117); Anion Gap 7 (5-15); BUN 18 mg/dL (7-18); BUN/Creat Ratio 12.8 RATIO (10-20); Calcium,Total 8.5 mg/dL (8.5-10.1); Chloride 104 mmol/L (98-107); Creatinine, Serum 1.41 mg/dL (0.55-1.02); EST Glomerular Filtration Rate 40 mL/min (>60); Est Glom Filt Rate - Afr Amer 48 mL/min (>60); Estimated Creatinine Clearance 37.24 ml/min; Globulin 3.7 g/dL (2.2-4.2); Glucose 88 mg/dL (74-106); Potassium 3.2 mmol/L (3.5-5.1); Sodium Level 134 mmol/L (136-145)
[2020-11-12 16:32] VITALS: BP 115/54; PULSE 78; RESP 16; O2SAT 94
[2020-11-12] MEDS: Potassium Chloride Oral Tablet 20 MEQ 40 MEQ PO (16:35)
== END 2020-11-12 16:57 | disposition home or self-care (01) ==
PROVIDERS: Emergency Provider Emergency Medicine; PCP Family Medicine
DX: R19.7 Diarrhea, unspecified (principal); E78.5 Hyperlipidemia, unspecified; Z87.891 Personal history of nicotine dependence
CPT/HCPCS: 80053; 85025; 99284; J7030; A4216

== ENCOUNTER → 2021-02-09 15:51 | Outpatient (CLI) | payer OTHER, SELFPAY ==
[2021-02-12 21:12] LABS: HPV APTIMA, High Risk Negative (Negative)
== END ==
PROVIDERS: PCP Family Medicine; Visit Provider Student in an Organized Health Care Education/Training Program
DX: Z12.4 Encounter for screening for malignant neoplasm of cervix (principal)
CPT/HCPCS: 87624; 88175; G0145

== ENCOUNTER → 2021-03-02 08:36 | Outpatient (CLI) | payer OTHER, SELFPAY ==
[2021-03-02 10:05] LABS: AST(SGOT) 15 U/L (15-37); Alanine Aminotransfer ALT/SGPT 25 U/L (13-56); Albumin, Serum 3.2 g/dL (3.2-5.0); Alkaline Phosphatase 122 U/L (45-117); Bilirubin, Direct 0.11 mg/dL (0.00-0.30); Cholesterol 225 mg/dL (200); Globulin 4.1 g/dL (2.2-4.2); High Density Lipoprotein 72 mg/dL; Protein, Total 7.3 g/dL (6.4-8.2); Triglycerides 162 mg/dL; Very Low Density Lipoprotein 32 mg/dL (5-40)
[2021-03-02 10:20] LABS: Vitamin D,25 Hydroxy 26.7 ng/mL
== END ==
PROVIDERS: PCP Family Medicine; Referring Provider Family Medicine; Visit Provider Family Medicine
DX: I48.91 Unspecified atrial fibrillation (principal); E78.00 Pure hypercholesterolemia, unspecified; E55.9 Vitamin D deficiency, unspecified
CPT/HCPCS: 36415; 80061; 80076; 82306

== ENCOUNTER → 2021-04-20 16:29 | Outpatient (CLI) | payer OTHER, SELFPAY ==
[2021-04-20 18:17] LABS: T4 Free Direct 1.22 ng/dL (0.76-1.46); Thyroid Stim Hormone (TSH) 3.48 uIU/mL (0.358-3.74)
== END ==
PROVIDERS: PCP Family Medicine; Referring Provider Nurse Practitioner Gerontology; Visit Provider Nurse Practitioner Gerontology
DX: I48.0 Paroxysmal atrial fibrillation (principal)
CPT/HCPCS: 36415; 84439; 84443

== ENCOUNTER → 2021-10-07 | Outpatient (CLI) | payer MEDICARE, OTHER, SELFPAY | END | disposition home or self-care (01) | LOC: LAB.FUTURE 08:51 | PROVIDERS: PCP Family Medicine; Visit Provider Family Medicine | DX: Z00.00 Encounter for general adult medical examination without abnormal findings (principal); I48.91 Unspecified atrial fibrillation; E55.9 Vitamin D deficiency, unspecified; E78.00 Pure hypercholesterolemia, unspecified ==

== ENCOUNTER → 2022-08-30 | Outpatient (CLI) | payer MEDICARE, OTHER, SELFPAY ==
--- NOTE | 2022-08-30 | EMB_PTH ---
PATIENT: BELLA SERRANO LOC: [facility] U#:[id number] AGE/SX: 66/F ROOM: RE08/30/[address]: Dr. Marcelina Hernandez DO : 1955 BED: DIS: 08/30/2022 SPEC #: [id number] RECD: 08/30/22 14:04 STATUS: MICHELLE RELisa #: [id number] AUDIE: 08/30/22 00:[address]: Marcelina Hernandez DEPT: SURGICAL PATHOLOGY RECD BY: Kemi Almeida ENTERED: 08/31/22 08:14 SP TYPE: ENDOM BX/C MARYLOU DR: Dr. Dennis Alvarenga MD Tissues: Endometrium, NOS Procedures: Surgery Specimen Level IV HEADER OPERATION: Endometrial biopsy PRE-OP DIAGNOSIS: Postmenopausal bleeding TISSUE SUBMITTED: Endometrial biopsy MICROSCOPIC DIAGNOSIS Endometrium, biopsy: Scant strips of benign superficial glandular mucosa. AM:alivia 09/01/2022 MICROSCOPIC DESCRIPTION Slides are reviewed. GROSS DESCRIPTION Received in fixative is one container labeled with the patient's name and designated endometrial biopsy. The specimen consists of multiple minute fragments of light naranjo soft tissue that in aggregate measure 1.0 x 0.5 x <0.1 cm. The specimen is totally submitted in one cassette. / AM:alivia 08/31/2022 TC:5 CPT: 97085
== END | disposition home or self-care (01) ==
LOC: LABSPEC 13:44
PROVIDERS: PCP Family Medicine; Visit Provider Student in an Organized Health Care Education/Training Program
DX: N95.0 Postmenopausal bleeding (principal)
CPT/HCPCS: 88305

== ENCOUNTER → 2022-11-09 | Outpatient (CLI) | payer MEDICARE, OTHER, SELFPAY ==
[2022-11-09 13:00] LABS: Absolute Lymphocyte Count 1.11 X10^3/uL (0.83-4.51); Absolute Neutrophil Count 3.2 X10^3/uL (2.0-7.7); Basophil# 0.02 X10^3/uL; Basophil% 0.4 % (0-1); Eosinophil# 0.26 X10^3/uL; Eosinophils% 5.3 % (0-5); Hematocrit 36.6 % (37-47); Hemoglobin 11.5 g/dL (12.0-15.0); Lymphocyte # 1.11 X10^3/ul (0.83-4.51); Lymphocyte % 22.5 % (19-41); Mean Corp Hgb Conc 31.4 g/dL (32-36); Mean Corpuscular Hgb 29.8 pg (27.0-32.0); Mean Corpuscular Volume 94.8 fL (81-99); Mean Platelet Vol. 10.1 fl (6.2-12.0); Monocyte# 0.38 X10^3/uL; Monocyte% 7.7 % (0-10); NRBC Flagged by Analyzer 0 % (0-5); Neutrophil # 3.15 X10^3/uL (2.7-7.7); Neutrophil % 63.9 % (47-70); Platelet Count 316 K/mm3 (150-450); RBC Distribution Width CV 13.6 % (11.6-14.6); RBC Distribution Width SD 47.3 fl (35.1-43.9); Red Blood Count 3.86 M/mm3 (4.2-5.4); White Blood Count 4.9 K/mm3 (4.4-11.0)
[2022-11-09 13:21] LABS: ALB/GLOB Ratio 0.7 RATIO (0.9-2.4); AST(SGOT) 19 U/L (15-37); Alanine Aminotransfer ALT/SGPT 19 U/L (13-56); Albumin, Serum 3.4 g/dL (3.2-5.0); Alkaline Phosphatase 158 U/L (45-117); Anion Gap 5 (5-15); BUN 18 mg/dL (7-18); BUN/Creat Ratio 12.9 RATIO (10-20); Calcium,Total 9.5 mg/dL (8.5-10.1); Chloride 106 mmol/L (98-107); EST Glomerular Filtration Rate 40 mL/min (>60); Est Glom Filt Rate - Afr Amer 48 mL/min (>60); Globulin 4.7 g/dL (2.2-4.2); Glucose 77 mg/dL (74-106); Potassium 3.7 mmol/L (3.5-5.1); Protein, Total 8.1 g/dL (6.4-8.2); Sodium Level 139 mmol/L (136-145)
== END | disposition home or self-care (01) ==
PROVIDERS: PCP Family Medicine; Referring Provider Internal Medicine Rheumatology; Visit Provider Internal Medicine Rheumatology
DX: M06.4 Inflammatory polyarthropathy (principal)
CPT/HCPCS: 36415; 80053; 85025

== ENCOUNTER → 2023-06-08 | Outpatient (CLI) | payer MEDICARE, OTHER, SELFPAY ==
[2023-06-08 12:14] LABS: Absolute Lymphocyte Count 1.31 X10^3/uL (0.83-4.51); Absolute Neutrophil Count 3.7 X10^3/uL (2.0-7.7); Basophil# 0.05 X10^3/uL; Basophil% 0.9 % (0-1); Eosinophil# 0.19 X10^3/uL; Eosinophils% 3.3 % (0-5); Hematocrit 33.1 % (37-47); Hemoglobin 10.5 g/dL (12.0-15.0); Lymphocyte # 1.31 X10^3/ul (0.83-4.51); Lymphocyte % 23.1 % (19-41); Mean Corp Hgb Conc 31.7 g/dL (32-36); Mean Corpuscular Hgb 29.2 pg (27.0-32.0); Mean Corpuscular Volume 92.2 fL (81-99); Mean Platelet Vol. 9.8 fl (6.2-12.0); Monocyte# 0.43 X10^3/uL; Monocyte% 7.6 % (0-10); NRBC Flagged by Analyzer 0 % (0-5); Neutrophil # 3.68 X10^3/uL (2.7-7.7); Neutrophil % 64.7 % (47-70); Platelet Count 330 K/mm3 (150-450); RBC Distribution Width CV 12.5 % (11.6-14.6); RBC Distribution Width SD 42.4 fl (35.1-43.9); Red Blood Count 3.59 M/mm3 (4.2-5.4); White Blood Count 5.7 K/mm3 (4.4-11.0)
[2023-06-08 12:25] LABS: ALB/GLOB Ratio 0.6 RATIO (0.9-2.4); AST(SGOT) 19 U/L (15-37); Alanine Aminotransfer ALT/SGPT 22 U/L (13-56); Albumin, Serum 3.1 g/dL (3.2-5.0); Alkaline Phosphatase 169 U/L (45-117); Anion Gap 5 (5-15); BUN 17 mg/dL (7-18); BUN/Creat Ratio 13.4 RATIO (10-20); Calcium,Total 9.6 mg/dL (8.5-10.1); Chloride 106 mmol/L (98-107); Creatinine, Serum 1.27 mg/dL (0.55-1.02); EST Glomerular Filtration Rate 45 mL/min (>60); Est Glom Filt Rate - Afr Amer 54 mL/min (>60); Globulin 4.8 g/dL (2.2-4.2); Glucose 89 mg/dL (74-106); Potassium 3.8 mmol/L (3.5-5.1); Protein, Total 7.9 g/dL (6.4-8.2); Sodium Level 137 mmol/L (136-145)
== END | disposition home or self-care (01) ==
LOC: MTLAB 09:42
PROVIDERS: PCP Family Medicine; Referring Provider Internal Medicine Rheumatology; Visit Provider Internal Medicine Rheumatology
DX: M06.4 Inflammatory polyarthropathy (principal); M79.7 Fibromyalgia; Z79.899 Other long term (current) drug therapy
CPT/HCPCS: 36415; 80053; 85025

== ENCOUNTER → 2023-10-17 | Outpatient (CLI) | payer MEDICARE, OTHER, SELFPAY ==
[2023-10-17 10:01] LABS: Absolute Lymphocyte Count 1.34 X10^3/uL (0.83-4.51); Absolute Neutrophil Count 3.2 X10^3/uL (2.0-7.7); Basophil# 0.03 X10^3/uL; Basophil% 0.6 % (0-1); Eosinophil# 0.21 X10^3/uL; Eosinophils% 4.1 % (0-5); Hematocrit 37.5 % (37-47); Hemoglobin 11.9 g/dL (12.0-15.0); Lymphocyte # 1.34 X10^3/ul (0.83-4.51); Lymphocyte % 25.9 % (19-41); Mean Corp Hgb Conc 31.7 g/dL (32-36); Mean Corpuscular Hgb 30.4 pg (27.0-32.0); Mean Corpuscular Volume 95.7 fL (81-99); Monocyte# 0.38 X10^3/uL; Monocyte% 7.3 % (0-10); NRBC Flagged by Analyzer 0 % (0-5); Neutrophil % 61.7 % (47-70); Platelet Count 252 K/mm3 (150-450); RBC Distribution Width CV 13.2 % (11.6-14.6); RBC Distribution Width SD 46.9 fl (35.1-43.9); Red Blood Count 3.92 M/mm3 (4.2-5.4); White Blood Count 5.2 K/mm3 (4.4-11.0)
[2023-10-17 10:44] LABS: ALB/GLOB Ratio 0.8 RATIO (0.9-2.4); AST(SGOT) 20 U/L (15-37); Alanine Aminotransfer ALT/SGPT 18 U/L (13-56); Albumin, Serum 3.4 g/dL (3.2-5.0); Alkaline Phosphatase 109 U/L (45-117); Anion Gap 3 (5-15); BUN 18 mg/dL (7-18); BUN/Creat Ratio 14.8 RATIO (10-20); Calcium,Total 9.4 mg/dL (8.5-10.1); Chloride 108 mmol/L (98-107); Creatinine, Serum 1.22 mg/dL (0.55-1.02); EST Glomerular Filtration Rate 47 mL/min (>60); Est Glom Filt Rate - Afr Amer 56 mL/min (>60); Glucose 86 mg/dL (74-106); Potassium 3.8 mmol/L (3.5-5.1); Protein, Total 7.4 g/dL (6.4-8.2); Sodium Level 139 mmol/L (136-145)
== END | disposition home or self-care (01) ==
LOC: MTLAB 07:35
PROVIDERS: PCP Family Medicine; Referring Provider Internal Medicine Rheumatology; Visit Provider Internal Medicine Rheumatology
DX: M06.4 Inflammatory polyarthropathy (principal); Z79.899 Other long term (current) drug therapy; M79.7 Fibromyalgia; M19.041 Primary osteoarthritis, right hand
CPT/HCPCS: 36415; 80053; 85025

== ENCOUNTER → 2023-12-19 | Outpatient (CLI) | payer MEDICARE, OTHER, SELFPAY ==
--- NOTE | 2023-12-19 13:26 | RAD_ITS ---
STUDY: X-RAY CHEST REASON FOR EXAM: Female, 68 years old. BURROWS, Wheeze TECHNIQUE: PA and lateral views of the chest. COMPARISON: 09/14/2020 FINDINGS: The lungs are clear and expanded. Elevated right hemidiaphragm which is unchanged. Normal size heart. Normal mediastinum and lizzy. Normal visualized pulmonary arteries. Normal visualized aortic arch and descending thoracic aorta. There is a dextroscoliosis of the thoracic spine. Normal visualized ribs, clavicles, and shoulders. There is no demonstrated abnormality of the visualized soft tissue structures of the upper abdomen. RAD/Chest PA and Lateral IMPRESSION: No change from 09/14/2020. Electronically Signed: Justino Bullock MD at 11:19 EDT ,
[2023-12-19 14:39] LABS: Absolute Lymphocyte Count 1.24 X10^3/uL (0.83-4.51); Absolute Neutrophil Count 2.9 X10^3/uL (2.0-7.7); Basophil# 0.03 X10^3/uL; Basophil% 0.6 % (0-1); Eosinophils% 4.3 % (0-5); Hematocrit 36.8 % (37-47); Hemoglobin 11.5 g/dL (12.0-15.0); Lymphocyte # 1.24 X10^3/ul (0.83-4.51); Lymphocyte % 26.5 % (19-41); Mean Corp Hgb Conc 31.3 g/dL (32-36); Mean Corpuscular Hgb 30.2 pg (27.0-32.0); Mean Corpuscular Volume 96.6 fL (81-99); Mean Platelet Vol. 9.6 fl (6.2-12.0); Monocyte# 0.32 X10^3/uL; Monocyte% 6.8 % (0-10); NRBC Flagged by Analyzer 0 % (0-5); Neutrophil # 2.87 X10^3/uL (2.7-7.7); Neutrophil % 61.4 % (47-70); Platelet Count 240 K/mm3 (150-450); RBC Distribution Width CV 13.1 % (11.6-14.6); RBC Distribution Width SD 46.7 fl (35.1-43.9); Red Blood Count 3.81 M/mm3 (4.2-5.4); White Blood Count 4.7 K/mm3 (4.4-11.0)
[2023-12-19 14:49] LABS: Anion Gap 3 (5-15); BUN 22 mg/dL (7-18); BUN/Creat Ratio 17.2 RATIO (10-20); Calcium,Total 9.5 mg/dL (8.5-10.1); Chloride 106 mmol/L (98-107); Creatinine, Serum 1.28 mg/dL (0.55-1.02); EST Glomerular Filtration Rate 44 mL/min (>60); Est Glom Filt Rate - Afr Amer 53 mL/min (>60); Glucose 105 mg/dL (74-106); Potassium 3.9 mmol/L (3.5-5.1); Sodium Level 139 mmol/L (136-145)
== END | disposition home or self-care (01) ==
PROVIDERS: PCP Family Medicine; Referring Provider Nurse Practitioner Gerontology; Visit Provider Nurse Practitioner Gerontology
DX: R06.00 Dyspnea, unspecified (principal); R53.83 Other fatigue
CPT/HCPCS: 36415; 71046; 80048; 84443; 85025

== ENCOUNTER → 2024-05-13 | Outpatient (CLI) | payer MEDICARE, OTHER, SELFPAY ==
[2024-05-13 10:48] LABS: Absolute Lymphocyte Count 1.13 X10^3/uL (0.83-4.51); Absolute Neutrophil Count 5.3 X10^3/uL (2.0-7.7); Basophil# 0.02 X10^3/uL; Basophil% 0.3 % (0-1); Eosinophil# 0.02 X10^3/uL; Eosinophils% 0.3 % (0-5); Hematocrit 37.1 % (37-47); Hemoglobin 11.5 g/dL (12.0-15.0); Lymphocyte # 1.13 X10^3/ul (0.83-4.51); Lymphocyte % 16.5 % (19-41); Mean Corpuscular Hgb 30.1 pg (27.0-32.0); Mean Corpuscular Volume 97.1 fL (81-99); Mean Platelet Vol. 9.9 fl (6.2-12.0); Monocyte# 0.35 X10^3/uL; Monocyte% 5.1 % (0-10); NRBC Flagged by Analyzer 0 % (0-5); Neutrophil # 5.28 X10^3/uL (2.7-7.7); Neutrophil % 77.2 % (47-70); Platelet Count 283 K/mm3 (150-450); RBC Distribution Width CV 13.6 % (11.6-14.6); RBC Distribution Width SD 48.4 fl (35.1-43.9); Red Blood Count 3.82 M/mm3 (4.2-5.4); White Blood Count 6.8 K/mm3 (4.4-11.0)
[2024-05-13 11:42] LABS: ALB/GLOB Ratio 0.9 RATIO (0.9-2.4); AST(SGOT) 14 U/L (15-37); Alanine Aminotransfer ALT/SGPT 19 U/L (13-56); Albumin, Serum 3.4 g/dL (3.2-5.0); Alkaline Phosphatase 126 U/L (45-117); Anion Gap 2 (5-15); BUN 20 mg/dL (7-18); BUN/Creat Ratio 15.9 RATIO (10-20); Calcium,Total 9.4 mg/dL (8.5-10.1); Chloride 106 mmol/L (98-107); Creatinine, Serum 1.26 mg/dL (0.55-1.02); EST Glomerular Filtration Rate 45 mL/min (>60); Est Glom Filt Rate - Afr Amer 54 mL/min (>60); Globulin 3.8 g/dL (2.2-4.2); Glucose 86 mg/dL (74-106); Protein, Total 7.2 g/dL (6.4-8.2); Sodium Level 139 mmol/L (136-145)
== END | disposition home or self-care (01) ==
LOC: MTLAB 07:17
PROVIDERS: PCP Family Medicine; Referring Provider Internal Medicine Rheumatology; Visit Provider Internal Medicine Rheumatology
DX: M06.4 Inflammatory polyarthropathy (principal); M79.7 Fibromyalgia; Z79.899 Other long term (current) drug therapy
CPT/HCPCS: 36415; 80053; 85025

== ENCOUNTER 2024-06-08 15:09 | Emergency (ER) | payer MEDICARE, OTHER, SELFPAY ==
[2024-06-08 15:10] VITALS: BP 118/72; PULSE 79; RESP 18; TEMP 36.2; O2SAT 100; BMI 32.1
--- NOTE | 2024-06-08 15:13 | ED.RN ---
PT HAS R FACIAL DROOP, AND PT STATED THIS IS NORMAL AND NOT FOR REASON FOR VISIT. DENIES NUMBNESS/ TINGLING. NIH 0. TRIAGED FOR SHOULDER PAIN. PRIMARY RN Ana POLLARD NOTIFIED OF PT FACIAL DROOP BEING BASELINE.
[2024-06-08] MEDS: morphine 8 MG/ML Syringe 6 MG IM (16:06)
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
[2024-06-08] MEDS: oxyCODONE 5 MG Tablet PO (17:39)
[2024-06-08] MEDS: predniSONE 20 MG Tablet 60 MG PO (17:39)
[2024-06-08 17:42] VITALS: BP 110/74; PULSE 71; RESP 16; TEMP 36.6; O2SAT 99
== END 2024-06-08 17:44 | disposition home or self-care (01) ==
PROVIDERS: Emergency Provider Emergency Medicine; PCP Family Medicine; Visit Provider Emergency Medicine
DX: M25.511 Pain in right shoulder (principal); I48.0 Paroxysmal atrial fibrillation; Z87.891 Personal history of nicotine dependence; G89.29 Other chronic pain; E78.5 Hyperlipidemia, unspecified; Z79.891 Long term (current) use of opiate analgesic; M54.9 Dorsalgia, unspecified; Z79.01 Long term (current) use of anticoagulants; R20.2 Paresthesia of skin
CPT/HCPCS: 96372; 99283

== ENCOUNTER → 2024-07-22 | Outpatient (CLI) | payer MEDICARE, OTHER, SELFPAY ==
[2024-07-22 10:49] LABS: Absolute Lymphocyte Count 2.13 X10^3/uL (0.83-4.51); Absolute Neutrophil Count 3.8 X10^3/uL (2.0-7.7); Basophil# 0.02 X10^3/uL; Basophil% 0.3 % (0-1); Eosinophil# 0.12 X10^3/uL; Eosinophils% 1.8 % (0-5); Hematocrit 33.6 % (37-47); Hemoglobin 10.7 g/dL (12.0-15.0); Lymphocyte # 2.13 X10^3/ul (0.83-4.51); Lymphocyte % 32.4 % (19-41); Mean Corp Hgb Conc 31.8 g/dL (32-36); Mean Corpuscular Hgb 30.4 pg (27.0-32.0); Mean Corpuscular Volume 95.5 fL (81-99); Monocyte# 0.53 X10^3/uL; Monocyte% 8.1 % (0-10); NRBC Flagged by Analyzer 0 % (0-5); Neutrophil # 3.75 X10^3/uL (2.7-7.7); Neutrophil % 56.9 % (47-70); Platelet Count 296 K/mm3 (150-450); RBC Distribution Width CV 13.6 % (11.6-14.6); RBC Distribution Width SD 47.4 fl (35.1-43.9); Red Blood Count 3.52 M/mm3 (4.2-5.4); White Blood Count 6.6 K/mm3 (4.4-11.0)
[2024-07-22 12:55] LABS: Albumin, Serum 3.7 g/dL (3.4-4.8); BUN 29 mg/dL (4-19); BUN/Creat Ratio 21.9 RATIO (10-20); Creatinine, Serum 1.32 mg/dL (0.70-1.20); EST Glomerular Filtration Rate 44 (>60); Glucose 73 mg/dL (70-99); Protein, Total 6.7 g/dL (5.9-8.4)
[2024-07-22 12:56] LABS: ALB/GLOB Ratio 1.3 RATIO (0.9-2.4); AST(SGOT) 18 U/L (<=31); Alanine Aminotransfer ALT/SGPT 13 U/L (<=34); Alkaline Phosphatase 98 U/L (35-104); Anion Gap 10 (5-15); Calcium,Total 9.6 mg/dL (7.6-11.0); Carbon Dioxide 25.9 mmol/L (21.0-32.0); Chloride 104 mmol/L (98-108); Globulin 2.9 g/dL (2.2-4.2); Potassium 3.7 mmol/L (3.3-5.1); Sodium Level 140 mmol/L (133-145); Total Bilirubin 0.18 mg/dL (0.00-1.30)
== END | disposition home or self-care (01) ==
LOC: MTLAB 07:07
PROVIDERS: PCP Family Medicine; Referring Provider Internal Medicine Rheumatology; Visit Provider Internal Medicine Rheumatology
DX: M06.4 Inflammatory polyarthropathy (principal); Z79.899 Other long term (current) drug therapy; M79.7 Fibromyalgia; M19.041 Primary osteoarthritis, right hand
CPT/HCPCS: 36415; 80053; 85025

== ENCOUNTER → 2024-08-29 | Outpatient (CLI) | payer MEDICARE, OTHER, SELFPAY ==
[2024-08-29 12:49] LABS: Absolute Lymphocyte Count 0.81 X10^3/uL (0.83-4.51); Absolute Neutrophil Count 2.8 X10^3/uL (2.0-7.7); Basophil# 0.04 X10^3/uL; Basophil% 0.9 % (0-1); Eosinophils% 4.6 % (0-5); Hematocrit 34.7 % (37-47); Hemoglobin 11.1 g/dL (12.0-15.0); Lymphocyte # 0.81 X10^3/ul (0.83-4.51); Lymphocyte % 18.7 % (19-41); Mean Corpuscular Hgb 30.8 pg (27.0-32.0); Mean Corpuscular Volume 96.4 fL (81-99); Monocyte# 0.43 X10^3/uL; Monocyte% 9.9 % (0-10); NRBC Flagged by Analyzer 0 % (0-5); Neutrophil # 2.84 X10^3/uL (2.7-7.7); Neutrophil % 65.4 % (47-70); Platelet Count 273 K/mm3 (150-450); RBC Distribution Width CV 13.9 % (11.6-14.6); White Blood Count 4.3 K/mm3 (4.4-11.0)
[2024-08-29 13:26] LABS: ALB/GLOB Ratio 1.2 RATIO (0.9-2.4); AST(SGOT) 25 U/L (<=31); Alanine Aminotransfer ALT/SGPT 15 U/L (<=34); Albumin, Serum 3.9 g/dL (3.4-4.8); Alkaline Phosphatase 110 U/L (35-104); Anion Gap 11 (5-15); BUN 16 mg/dL (4-19); BUN/Creat Ratio 13.3 RATIO (10-20); Calcium,Total 9.5 mg/dL (7.6-11.0); Carbon Dioxide 25.6 mmol/L (21.0-32.0); Chloride 104 mmol/L (98-108); Creatinine, Serum 1.22 mg/dL (0.70-1.20); EST Glomerular Filtration Rate 48 (>60); Globulin 3.2 g/dL (2.2-4.2); Glucose 84 mg/dL (70-99); Protein, Total 7.1 g/dL (5.9-8.4); Sodium Level 141 mmol/L (133-145); Total Bilirubin 0.34 mg/dL (0.00-1.30)
== END | disposition home or self-care (01) ==
LOC: MTLAB 09:08
PROVIDERS: PCP Family Medicine; Referring Provider Internal Medicine Rheumatology; Visit Provider Internal Medicine Rheumatology
DX: M06.4 Inflammatory polyarthropathy (principal); M79.7 Fibromyalgia; Z79.899 Other long term (current) drug therapy
CPT/HCPCS: 36415; 80053; 85025

== ENCOUNTER → 2024-10-21 | Outpatient (CLI) | payer MEDICARE, OTHER, SELFPAY ==
--- OUTSIDE RECORDS SUMMARY | 2024-10-21 07:16 | XMS RPT_ITS | CCD ---
Author Organization [facility] Inform ion Partnership [facility] Care Team Providers Care Quality Technician Fiberglass Name Role Phone Dennis Marcial MD Primary Care Provider Iftikhar Nieto Unavailable Rubin DE LOS SANTOS MD, Natacha Unavailable Anjel RN, Ira Unavailable Unavailable Uli ROSS, Charley Unavailable Fast DO, Nikki A Unavailable Knapic DO , Dr. Jacky Feliz S Unavailab le Romeo DE LOS SANTOS, Gene Nelson Unavailable [phone] Fast DO, Nikki A Unavailable Terry DE LOS SANTOS, Rene Griffith Unavailable Lesley Fritz Unavailable Unavailable Unavailable Unavailable Charley Mcnally RN Unavailable Dr. Dennis Marcial Primary Care Provider Dr. Dennis Marcial Referring Provider Tacho OCC THERAPY ASST, RAGHU Jeffery Attending Provider Augusta Quinones Unavailable Unavailable Augusta Roberts RN Unavailable Unavailable Dennis Marcial MD Primary Care Provider Iftikhar Nieto Unavailable Rubin DE LOS SANTOS MD, Natacha Unavailable Charley Mcnally RN Unavailable Carolina Lambert MD Unavailable Dennis Marcial MD Primary Care Provider Charley Mcnally RN Unavailable Dennis Marcial MD Primary Care Provider Dennis Marcial MD Primary Care Provider Iftikhar Nieto Unavailable Rubin DE LOS SANTOS MD, Natacha Unavailable Uli ROSS, Charley Unavailable Armando ROSS, Augusta Unavailable Unavailable Carolina Lambert MD Unavailable Carolina Lambert MD Unavailable Dr. Dennis Marcial Primary Care Provider Dr. Dennis Marcial Referring Provider Tacho OCC THERAPY ASST, RAGHU Jeffery Attending Provider Dennis Marcial MD Primary Care Provider Shane Steward MD Unavailable Shane Steward MD Unavailable Uli ROSS, Charley Unavailable Kenney Holder Unavailable Alexandra Baker Unavailable Oscar Mireles MD Unavailable Leyla BALES, Lesley L Unavailable Armando ROSS, Augusta Unavailable Unavailable Shane Steward MD Unavailable Dennis Marcial MD Primary Care Provider Carolina Lambert MD Unavailable Rubin DE LOS SANTOS, Natacha Unavailable Hunter Posadas Attending Unavailable JAYNE WOODS Referring Unavailable DENNIS MARCIAL Primary Care Unavailab Dennis Espinoza MD Primary Care Provider DENNIS MARCIAL Attending Unavailab DENNIS Espinoza Primary Care Unavailab DENNIS Espinoza Attending Unavailab DENNIS Espinoza Primary Care Unavailab DENNIS Espinoza Referring Unavailab DENNIS Espinoza Primary Care Unavailab le AGGIEDENNIS Attending Unavailab le AGGIE, DENNIS REY Primary Care Unavailab le AGGIEDENNIS Attending Unavailab le AGGIE, DENNIS KRISSY Primary Care Unavailab le AGGIE, DENNIS REY Attending Unavailab le AGGIE, DENNIS KRISSY Primary Care Unavailab le Aggie , Dr. Collins Primary Care Provider Samuel DE LOS SANTOS, Dr. Morris Attending Provider Samuel DE LOS SANTOS, Dr. Morris Referring Provider Dr. Indu Anderson DO Attending Provider [phone] Dr. Indu Anderson DO Emergency Provider Tacho OCC THERAPY ASST, Latia Attending Unavailable Tacho OCC THERAPY ASST, Latia Referring Unavailable Aggie, Dennis Primary Care Unavailable Tacho OCC THERAPY ASST, Latia Attending Unavailable Aggie, Dennis Primary Care Unavailable Aggie, Dennis Referring Unavailable Jacky Garcias Attending Unavailable Aggie, Dennis Primary Care Unavailable Aggie, Dennis Referring Unavailable Aggie, Dennis Referring Unavailable Aggie, Dennis Primary Care Unavailable Iwona Maza Attending Unavailable Tacho OCC THERAPY ASST, Latia Attending Unavailable Aggie, Dennis Referring Unavailable Aggie, Dennis Primary Care Unavailable Samuel, Alexandra Referring Unavailable Aggie, Dennis Primary Care Unavailable Alexandra Baker Attending Unavailable Aggie, Dennis Primary Care Unavailable Alexandra Baker Attending Unavailable Samuel, Alexandra Referring Unavailable Alexandra Baker Attending Unavailable Aggie, Dennis Primary Care Unavailable Samuel, Alexandra Referring Unavailable Aggie, Dennis Primary Care Unavailable Indu Anderson Attending Unavailable Bogdanlanki, Alexandra Referring Unavailable Aggie, Dennis Primary Care Unavailable Alexandra Baker Attending Unavailable AGGIE, DENNIS KRISSY Primary Care Unavailab le AGGIE, DENNIS KRISSY Primary Care Unavailab le AGGIE, DENNIS REY Referring Unavailab le AGGIE, DENNIS KRISSY Primary Care Unavailab le AGGIE, DENNISWELLINGTON YOUNGBL[facility]ODORY Referring Unavailab le AGGIE, DENNIS KRISSY Primary Care Unavailab SHANE Bonilla Referring Unavailable RONALD GARRIDO Attending Unavailable AGGIE, DENNIS KRISSY Primary Care Unavailab SHANE Bonilla Referring Unavailable AGGIE, DENNIS KRISSY Primary Care Unavailab le CLICK, RONALD Nelson Referring Unavailable CLICK, RONALD Nelson Attending Unavailable AGGIE, DENNIS REY Primary Care Unavailab le CLICK, RONALD Nelson Referring Unavailable AGGIE, DENNIS REY Primary Care Unavailab le CLICK, RONALD Nelson Referring Unavailable AGGIE, DENNIS REY Primary Care Unavailab le AGGIE, DENNIS REY Primary Care Unavailab le RENE, TIMA Referring Unavailable RADHA SAGASTUME Attending Unavailable AGGIE, DENNIS REY Primary Care Unavailab le AGGIE, DENNIS REY Referring Unavailab le AGGIE, DENNIS REY Primary Care Unavailab le CLICK, RONALD Nelson Attending Unavailable AGGIE, DENNIS REY Primary Care Unavailab le AGGIE, DENNIS REY Primary Care Unavailab le ABRAMOVICHSHANE Referring Unavailable AGGIE, DENNIS REY Primary Care Unavailab le AGGIE, DENNIS REY Referring Unavailab le AGGIE, DENNIS REY Primary Care Unavailab le RENE, TIMA Referring Unavailable AGGIE, DENNIS REY Primary Care Unavailab le CLICK, RONALD Nelson Referring Unavailable AGGIE, DENNIS REY Primary Care Unavailab le AGGIE, DENNIS REY Primary Care Unavailab le AGGIE, DENNIS REY Primary Care Unavailab OSCAR Ruiz Attending Unavailable AGGIE, DENNIS REY Primary Care Unavailab le ABRAMOVICH, SHANE Referring Unavailable ROYER FORD Attending Unavailable AGGIE, DENNIS REY Primary Care Unavailab le MICHAEL BABIN Referring Unavailable AGGIE, DENNIS REY Primary Care Unavailab le ABRAMOVICH, SHANE Referring Unavailable ABRAMOVICH, SHANE Attending Unavailable AGGIE, DENNIS REY Primary Care Unavailab le ABRAMOVICH, SHANE Referring Unavailable Allergies Allergy Classification Reported Allergen(s) Allergy Type Date of Onset Reaction(s) Facility (1 source) Raloxifene; Translations: [[facility] *ENDOCRINE AND METABOLIC AGENTS - [facility]] Drug Allergy [facility] Work Phone: Comment on above: Vomiting Medications Current Medications Medication Drug Class(es) Dates Sig (Normalized) Sig (Original) acetaminophen 325 mg / oxyCODONE hydrochloride 5 mg oral tablet (1 source) Opioid Agonist Start: 06-08-2024 take 1 tablet by mouth every six hours as needed for pain Oxycodone-Acetami nophen 5-325 mg tablet Active 1 {tbl} PO EVERY 6 HOURS NEEDED as needed for Pain 12 3 June 08, 2024 [id number] 200 actuat albuterol 0.09 mg/actuat metered dose inhaler (20 sources) beta2-Adrenergic Agonist Start: 11-11-2022 Albuterol Sulfate 90 mcg/actuation HFA aerosol inhaler Active 2 NMA INHALATION EVERY 6 HOURS as needed November 11, 2022 12:00am Start: 11-11-2022 take 1 puff(s) by in halation every six hours Albuterol Sulfate Active 2 PUFF INHALATION EVERY 6 HOURS November 10, 2022 11:00pm Start: 05-27-2021 End: 11-24-2022 take 2 puff(s) by inhalation every four hours as needed for wheezing albuterol HFA (PROVENTIL HFA, VENTOLIN HFA) 90 mcg/actuation inhaler Inhale 2 Puffs as instructed every 4 hours as needed for wheezing/shortness of breath. 1 Each 3 11/24/2022 Active Comment on above: Inhale 2 Puffs as in structed every 4 hours as needed for wheezing/shortness of breath. alendronic acid 70 mg oral tablet (20 sources) Bisphosphonate Start: 023 End: 025 take 1 tablet by mouth every week in the morning alendronate (FOSAMAX) 70 mg tablet Take 1 tablet by mouth one time a week. In am with glass of water, on a empty stomach, nothing by mouth or lying down for 30 minutes 12 tablet 3 02/12/2024 02/11/2025 Active Comment on above: Take 1 tablet by bradley th one time a week. In am with glass of water, on a empty stomach, nothing by mouth or lying down for 30 minutes amitriptyline hydrochloride 50 mg oral tablet (20 sources) Tricyclic Antidepressant Start: 021 End: 024 take 1 tablet by mouth once daily at bedtime amitriptyline (ELAVIL) 50 mg tablet Take 1 tablet by mouth daily at bedtime. 90 tablet 3 02/12/2024 Active Comment on above: Take 50 mg by mouth daily at bedtime. Take 1 tablet by bradley th daily at bedtime. amoxicillin 875 mg / clavulanate 125 mg oral tablet (2 sources) Penicillin-class Antibacterial Start: 025 End: take 1 tablet by mouth twice daily amoxicillin-clavula kyle potassium (AUGMENTIN) 875-125 mg per tablet Take 1 tablet by mouth two times a day for 5 days. 10 tablet 06/20/2024 06/25/2024 Active Start: 06-07-2010 End: 06-17-2010 take 1 tablet by mouth twice daily AUGMENTIN, 875-125MG (Oral Tablet) 1 (one) Tablet BID for 10 days Quantity: 20 {Tablet} Refills: 0 Ordered: 07-Jun-2010 Fast DO, Nikki A Fast DO, Nikki A Start : 07-Jun-2010 End : 17-Jun-2010 Inactive calcium carbonate 1250 mg oral tablet (5 sources) Start: 05-25-2020 take 1 tablet by mouth once daily Calcium Carbonate 500 MG tablet Active 500 mg PO DAILY@0800 May 25, 2020 1:00am cephalexin 500 mg oral capsule (9 sources) Cephalosporin Antibacterial Start: 01-20-2024 End: 01-27-2024 take 1 capsule by mouth three times daily cephALEXin (KEFLEX) 500 mg capsule Indications: Acute cystitis with hematuria Take 1 capsule by mouth three times a day for 7 days. 21 capsule 01/20/2024 01/27/2024 Active Start: 04-30-2019 End: 05-10-2019 take 1 capsule by mouth every twelve hours Cephalexin 500 mg capsule Discontinued 500 mg PO Q12H 20 April 30, 2019 1:00am May 09, 2019 1:00am May 10, 2019 1:08am cholecalciferol 0.05 mg oral capsule (5 sources) Vitamin D Start: 12-19-2023 take 1 capsule by mouth twice daily Cholecalciferol (Vitamin D3) 50 mcg (2,000 unit) capsule Active 50 ug PO TWICE A DAY December 19, 2023 1:14pm Start: 01-31-2022 End: 12-19-2023 take 1 capsule by mouth once daily Cholecalciferol (Vitamin D3) 50 mcg (2,000 unit) capsule Discontinued 50 ug PO DAILY January 31, 2022 12:00am December 19, 2023 1:15pm cholecalciferol, vitamin D3, (VITAMIN D3 ORAL) (20 sources) take 1 tablet by mouth once daily cholecalciferol, vitamin D3, (VITAMIN D3 ORAL) Take 1 tablet by mouth once daily. Active take 1 tablet by mouth once floyd y cholecalciferol, vitamin D3, (VITAMIN D3 ORAL) Take 1 tablet by mouth once daily. 0 Active Comment on above: Take 1 tablet by bradley once daily. dicyclomine hydrochloride 10 mg oral capsule (20 sources) Anticholinergic Start: 01-03-20 End: 07-24-19 24 take 1 capsule by mouth at bedtime dicyclomine (BENTYL) 10 mg capsule TAKE 1 CAPSULE BY MOUTH BEFORE MEALS AND AT BEDTIME. 120 capsule 5 01/25/2023 07/24/2023 Active Comment on above: Take 1 capsule by mo [facility] before meals and at bedtime. doxycycline hyclate 100 mg oral capsule (6 sources) Tetracycline-class Drug Start: 07-18-19 End: 07-28-19 take 1 capsule by mouth twice daily doxycycline hyclate (VIBRAMYCIN) 100 mg capsule Take 1 capsule by mouth two times a day for 10 days. 20 capsule 07/17/2024 07/27/2024 Active Start: 06-26-2024 End: 07-01-2024 take 1 capsule by mouth twice daily doxycycline hyclate (VIBRAMYCIN) 100 mg capsule Take 1 capsule by mouth two times a day for 5 days. 10 capsule 06/26/2024 07/01/2024 Active Start: 06-20-2024 End: 06-25-2024 take 1 tablet by mouth twice daily doxycycline monohydrate 100 mg tablet Take 1 tablet by mouth two times a day for 5 days. 10 tablet 06/20/2024 06/25/2024 Active hydroxychloroquine sulfate 200 mg oral tablet (20 sources) Antimalarial, Antirheumatic Agent Start: 12-19-2023 take 1 tablet by mouth twice daily Hydroxychloroquine (Plaquenil) 200 mg tablet Active 200 mg PO TWICE A DAY December 19, 2023 1:14pm Start: 12-19-2023 End: 12-19-2023 take 1 tablet by mouth once daily Hydroxychloroquine (Plaquenil) 200 mg tablet Discontinued 200 mg PO DAILY December 19, 2023 12:00am December 19, 2023 1:15pm Comment on above: Take 200 mg by mouth twice daily. Lactobacillus acidophilus (20 sources) take 1 tablet by mouth once daily Lactobacillus acidophilus (PROBIOTIC ORAL) Take 1 tablet by mouth once daily. Active take 1 tablet by mouth once floyd y Lactobacillus acidophilus (PROBIOTIC ORAL) Take 1 tablet by mouth once daily. 0 Active Comment on above: Take 1 tablet by bradley once daily. leflunomide 10 mg oral tablet (2 sources) Antirheumatic Agent Start: 2024 take 0.5 tablet by mouth once daily leflunomide (ARAVA) 10 mg tablet Take 0.5 tablets by mouth once daily. 07/31/2024 Active methylPREDNISolone (1 source) Corticosteroid Start: 2024 End: 2024 methylPREDNISolone (MEDROL, STARR,) 4 mg Dose-Pack Take as directed 21 tablet 05/10/2024 05/16/2024 Active metoprolol tartrate 25 mg oral tablet (20 sources) beta-Adrenergic Myah Start: 2022 End: 2023 take 0.5 tablet by mouth twice daily metoprolol tartrate, short acting, (LOPRESSOR) 25 mg tablet Take 0.5 tablets by mouth two times a day. 90 tablet 3 02/12/2024 Active Start: 07-28-2021 End: 01-31-2022 Metoprolol Tartrate 25 mg ta blet Discontinued 0 .ROUTE .COMPLEX November 22, 2021 4:37pm January 31, 2022 9:46am TAKE ONE-HALF (1/2) TABLET TWICE A DAY Start: 02-17-2021 End: 12-05-2022 Metoprolol Tartrate 25 mg ta blet Active 12.5 mg PO TWICE A DAY December 05, 2022 9:18am Start: 02-17-2021 End: 12-05-2022 take 12.5 mg by mouth twice daily Metoprolol Tartrate Active 12.5 MG PO TWICE A DAY December 05, 2022 8:18am Start: 02-17-2021 End: 02-17-2021 take 1 tablet by mouth twice daily Metoprolol Tartrate 25 mg tablet Discontinued 25 mg PO TWICE A DAY February 17, 2021 12:00am February 17, 2021 4:05pm Start: 05-27-2020 End: 07-03-2020 Metoprolol Tartrate 25 MG ta blet Discontinued 12.5 mg PO TWICE A DAY May 27, 2020 1:00am July 03, 2020 12:53pm Start: 05-27-2020 End: 07-03-2020 take 12.5 mg by mouth twice daily Metoprolol Tartrate Discontinued 12.5 MG PO TWICE A DAY May 27, 2020 12:00am July 03, 2020 11:53am Comment on above: Take 12.5 mg by mout h twice daily. Take 0.5 tablets by mouth twice daily. miconazole nitrate 40 mg/ml vaginal cream (2 sources) Azole Antifungal Start: End: Miconazole Nitrate (MONISTAT 3) 200 mg/5 gram (4 %) crea Indications: Vaginal itching Use 1 Applicator vaginally once daily for 3 days. 25 g 0 01/25/2023 01/28/2023 Active Comment on above: Use 1 Applicator vag inally once daily for 3 days. 24 hr mirabegron 50 mg extended release oral tablet (20 sources) beta3-Adrenergic Agonist Start: take 50 mg by mouth once daily MYRBETRIQ 50 mg Tb24 Take 50 mg by mouth once daily. 01/29/2024 Active molnupiravir 200 mg capsule (3 sources) Start: End: take 4 capsules by mouth twice daily molnupiravir 200 mg capsule Take 4 capsules by mouth twice daily for 5 days. 40 capsule 0 10/20/2021 10/25/2021 Active Comment on above: Take 4 capsules by m outh twice daily for 5 days. nitrofurantoin, macrocrystals 25 mg / nitrofurantoin, monohydrate 75 mg oral capsule (2 sources) Nitrofuran Antibacterial Start: 023 End: take 1 capsule by mouth twice daily nitrofurantoin monohydrate and macrocrystal (MACROBID) 100 mg capsule Indications: Burning with urination Take 1 capsule by mouth twice daily for 5 days. 10 capsule 0 01/25/2023 01/30/2023 Active Comment on above: Take 1 capsule by [facility] twice daily for 5 days. OXYGEN, HOME THERAPY, (20 sources) OXYGEN, HOME THE RAPY, Inhale 3 L/min as instructed as directed. Active OXYGEN, HOME THE RAPY, Inhale as instructed as directed. Active OXYGEN, HOME THE RAPY, Inhale as instructed as directed. 0 Active Comment on above: Inhale as instructed as directed. pantoprazole 40 mg delayed release oral tablet (20 sources) Proton Pump Inhibitor Start: 05-25-19 End: 02-12-20 take 1 tablet by mouth once daily pantoprazole DR (PROTONIX) 40 mg tablet Indications: Gastroesophageal reflux disease, unspecified whether esophagitis present Take 1 tablet by mouth once daily. 90 tablet 3 02/12/2024 Active Start: 01-26-2014 End: 2018 take 1 tablet by mouth once daily Pantoprazole 40 MG tablet Discontinued 40 mg PO DAILY January 26, 2014 12:00am 2018 9:53am Comment on above: Take 1 tablet by [facility] once daily. generic ok predniSONE 20 mg oral tablet (20 sources) Start: 07-17-2024 take 3 tablets by mouth once daily, then take 2 tablets by mouth once daily, then take 1 tablet by mouth once daily, then take 0.5 tablet by mouth once daily predniSONE (DELTASONE) 20 mg tablet Take 3 tablets by mouth once daily. X3d then 2 po every day, x3d,then 1 po every day x3d, then 1/2 po every day x4d. 21 tablet 07/17/2024 Active Start: 06-08-2024 take 2 tablets by [facility] once daily Prednisone 20 mg tablet Active 40 mg PO DAILY June 08, 2024 1:00am Start: 12-26-2023 End: 02-12-2024 predniSONE (DELTASONE) 20 mg tablet Take two daily for 5 days. 10 tablet 12/26/2023 02/12/2024 Discontinued Start: 11-25-2023 End: 12-04-2023 predniSONE (DELTASONE) 10 mg tablet Indications: Rash Take 4 tabs daily for 3 days, then 2 tabs daily for 3 days, then 1 tab daily for 3 days with food. 21 tablet 0 11/25/2023 12/04/2023 Active Start: 12-09-2022 End: 01-02-2023 predniSONE (DELTASONE) 10 mg tablet Take 4 daily for three days, then 3 daily for three days, then 2 daily for three days, then one daily for three days. 30 tablet 0 12/09/2022 01/02/2023 Discontinued End: 01-02-2023 predniSONE (DELTASONE) 1 mg tablet Take 10 mg by mouth as needed. Take for 3-5 for flare up 0 01/02/2023 Discontinued take 1 tablet by bradley th once daily predniSONE (DELTASONE) 1 mg tablet Take by mouth once daily. Patient unsure of dose 0 Active Comment on above: Take by mouth once d aily. Patient unsure of dose Take 10 mg by mouth as needed. Take for 3-5 for flare up Take 4 daily for thr ee days, then 3 daily for three days, then 2 daily for three days, then one daily for three days. rivaroxaban 20 mg oral tablet (20 sources) Factor Xa Inhibitor Start: 04-28-2021 End: 04-22-2024 take 1 tablet by mouth once daily XARELTO 20 mg tablet Take 1 tablet by mouth once daily. 11/12/2023 Active Comment on above: Take 20 mg by mouth once daily. Take 1 tablet by bradley once daily. rOPINIRole 1 mg oral tablet (20 sources) Nonergot Dopamine Agonist Start: 02-12-2024 End: 03-27-2025 take 1 tablet by mouth once daily at bedtime rOPINIRole (REQUIP) 1 mg tablet Take 1 tablet by mouth daily at bedtime. 90 tablet 3 04/01/2024 03/27/2025 Active sertraline 100 mg oral tablet (20 sources) Serotonin Reuptake Inhibitor Start: 12-19-2023 take 1 tablet by mouth twice daily Sertraline (Zoloft) 50 mg tablet Active 50 mg PO TWICE A DAY December 19, 2023 1:15pm Start: 12-19-2023 End: 12-19-2023 take 1 tablet by mouth once daily Sertraline (Zoloft) 50 mg tablet Discontinued 50 mg PO DAILY December 19, 2023 12:00am December 19, 2023 1:15pm Start: 08-23-2023 End: 04-22-2025 take 1 tablet by mouth once daily sertraline (ZOLOFT) 100 mg tablet Take 1 tablet by mouth once daily. 90 tablet 3 04/22/2024 04/22/2025 Active Start: 12-05-2022 End: 08-23-2023 take 1 tablet by mouth twice daily sertraline (ZOLOFT) 50 mg tablet Take 1 tablet by mouth two times a day. 180 tablet 3 08/23/2023 08/23/2023 Discontinued Start: 06-07-2010 End: 11-19-2010 take 2 tablets by mouth once daily ZOLOFT, 50MG (Oral Tablet) 2 (two) Tablet QD for 0 days Quantity: 60 {Tablet} Refills: 3 Ordered: 10-Aug-2010 Maranda Roberts RN Start : 07-Jun-2010 End : 19-Nov-2010 Discontinued Comment on above: Take 1 tablet by bradley th twice daily. Take 1 tablet by bradley th once daily. Take 1 tablet by bradley th two times a day. simvastatin 20 mg oral tablet (20 sources) HMG-CoA Reductase Inhibitor Start: 4 End: take 1 tablet by mouth once daily at bedtime simvastatin (ZOCOR) 20 mg tablet Indications: Pure hypercholesterolemi a, unspecified Take 1 tablet by mouth daily at bedtime. 90 tablet 3 09/05/2023 Active Comment on above: Take 20 mg by mouth daily at bedtime. Take 1 tablet by bradley th daily at bedtime. 30 actuat umeclidinium 0.0625 mg/actuat / vilanterol 0.025 mg/actuat dry powder inhaler (20 sources) Anticholinergic, beta2-Adrenergic Agonist Start: 2 End: take 1 dose by inhalation once daily umeclidinium-vilant debby (ANORO ELLIPTA) 62.5-25 mcg/actuation inhaler Inhale 1 Inhalation as instructed once daily. 3 Each 3 02/12/2024 Active Start: 11-12-2020 Umeclidinium-V ilanterol (Anoro Ellipta) 62.5-25 mcg/actuation blister with device Active 1 NMA INHALATION DAILY November 12, 2020 12:00am Start: 11-12-2020 Umeclidinium-V ilanterol (Anoro Ellipta) 62.5-25 mcg/actuation blister with device Active 1 INH INHALATION DAILY November 11, 2020 11:00pm Start: 09-30-2020 take 1 dose by inhal ation once daily umeclidinium-vilanterol (ANORO ELLIPTA) 62.5-25 mcg/actuation inhaler Inhale 1 Inhalation as instructed once daily. 1 Each 2 09/30/2020 Active Comment on above: Inhale 1 Inhalation as instructed once daily. Completed/Discontinued Medications Medication Drug Class(es) Dates Sig (Normalized) Sig (Original) acetaminophen 325 mg / HYDROcodone bitartrate 5 mg oral tablet (7 sources) Opioid Agonist Start: 07-06-2017 End: 2018 Hydrocodone-Acetami nophen 1 TABLET tablet Discontinued 1 - 2 {tbl} PO EVERY 4 HOURS NEEDED as needed for Pain 12 3 July 06, 2017 1:00am 2018 9:53am Start: 07-06-2017 End: 2018 take 1 tablet by mouth every four hours as needed Hydrocodone-Acetaminophen Discontinued 1 - 2 TABLET PO EVERY 4 HOURS NEEDED 12 3 July 06, 2017 12:00am 2018 8:53am Start: 01-19-2009 End: 03-17-2010 take 1 tablet by mouth once daily at lunch VICODIN, 5-500MG (Oral Tablet) 1 Tablet qd for 0 days Refills: 0 Ordered: 17-Mar-2010 Lesley Fritz Start : 19-Jan-2009 End : 17-Mar-2010 Inactive Comments: 750mg TID per pt. prescribed by Dr. perrin End: 07-17-2013 take 1 tablet by mouth three times daily as needed VICODIN ES, 750-7.5MG (PO Tab) 1 tab tid , prn for 0 days Refills: 0 Ordered: 17-Jul-2013 Lesley Fritz End : 17-Jul-2013 Discontinued Comments: This order discontinued per [facility]. Comment on above: 750mg TID per pt. pr escribed by Dr. perrin This order discontin ued per [facility]. albuterol 0.833 mg/ml / ipratropium bromide 0.167 mg/ml inhalation solution (4 sources) Anticholinergic, beta2-Adrenergic Agonist Start: 06-20-2024 End: 06-20-2024 ipratropium-albuterol 3 mL nebulizer solution (DUONEB) Start: 06-20-2024 End: 06-20-2024 take 1 dose by inhalation once 3 mL, INHALATION, ONCE, 1 dose, On [facility] 06/20/24 at 1230, PROTECT FROM LIGHT. The unit-dose vial should remain stored in the protective foil pouch until time of use. ALPRAZolam 0.25 mg oral tablet (1 source) Benzodiazepine Start: 03-20-2013 End: 03-20-2013 take 1 tablet by mouth twice daily as needed XANAX, 0.25MG (Oral Tablet) 1 (one) Tablet bid prn for 30 days Quantity: 60 {Tablet} Refills: 1 Ordered: 20-Mar-2013 Fast DO, Nikki A Fast DO, Nikki A Start : 20-Mar-2013 End : 20-Mar-2013 Discontinued Comments: sixty Comment on above: sixty amiodarone hydrochloride 200 mg oral tablet (20 sources) Antiarrhythmic Start: 07-03-2020 End: 04-28-2021 take 1 tablet by mouth once daily Amiodarone 200 mg tablet Discontinued 200 mg PO DAILY November 10, 2020 11:48am April 28, 2021 1:55pm Start: 05-27-2020 End: 07-03-2020 take 1 tablet by mouth three times daily, then take 1 tablet by mouth twice daily, then take 1 tablet by mouth once daily Amiodarone 200 MG tablet Discontinued 200 mg PO THREE TIMES A DAY May 27, 2020 1:00am July 03, 2020 12:53pm Take 200 mg 3 times a day for 1 week, then take 200 mg twice a day for 2 weeks, then take 200 mg daily and stay on this dose. amoxicillin 500 mg oral capsule (5 sources) Penicillin-class Antibacterial Start: 12-17-2018 End: 12-29-2018 take 2 capsules by mouth twice daily Amoxicillin 500 mg capsule Discontinued 1000 mg PO TWICE A DAY 40 December 17, 2018 12:00am December 26, 2018 12:00am December 29, 2018 12:08am Start: 12-17-2018 End: 12-29-2018 take 1000 mg by mouth twice daily Amoxicillin Discontinued 1000 MG PO TWICE A DAY 40 December 16, 2018 11:00pm December 28, 2018 11:08pm apixaban 5 mg oral tablet (17 sources) Factor Xa Inhibitor End: 02-12-2024 take 1 tablet by mouth twice daily apixaban (ELIQUIS) 5 mg tab(s) Take 5 mg by mouth two times a day. 02/12/2024 Discontinued Comment on above: Take 5 mg by mouth t wo times a day. 24 hr budesonide 9 mg extended release oral tablet (11 sources) Corticosteroid Start: 04-20-2021 End: 01-31-2022 take 1 tablet by mouth once daily Budesonide (Uceris) 9 mg tablet,delayed and ext.release Discontinued 9 mg PO DAILY April 20, 2021 1:00am January 31, 2022 9:39am End: 10-12-2021 take 1 capsule by mouth once daily, then take 1 capsule by mouth every twenty-four hours budesonide, enteric coated (ENTOCORT EC) 3 mg 24 hr capsule Take 3 mg by mouth once daily. 0 10/12/2021 Discontinued Comment on above: Take 3 mg by mouth o nce daily. 24 hr buPROPion hydrochloride 150 mg extended release oral tablet (1 source) Aminoketone End: take 1 tablet by mouth twice daily WELLBUTRIN XL, 150MG (Oral Tablet Extended Release 24 Hour) 1 bid for 0 days Refills: 0 Ordered: 19-Jan-2009 Radhika Dooley End : 19-Jan-2009 Inactive Calcium Carbonate / vitamin D3 (20 sources) End: take 1 tablet by mouth once daily calcium carbonate/vitamin D3 (OS-TESSY 500 + D3 ORAL) Take 1 tablet by mouth once daily. 06/26/2024 Discontinued take 1 tablet by mouth once floyd y calcium carbonate/vitamin D3 (OS-TESSY 500 + D3 ORAL) Take 1 tablet by mouth once daily. Active take 1 tablet by mouth once floyd y calcium carbonate/vitamin D3 (OS-TESSY 500 + D3 ORAL) Take 1 tablet by mouth once daily. 0 Active Comment on above: Take 1 tablet by bradley th once daily. calcium phosphate dibas/vit D3 (VITAMIN D, WITH CALCIUM, ORAL) (20 sources) End: 03-06-2023 take 250 mg by mouth once daily calcium phosphate dibas/vit D3 (VITAMIN D, WITH CALCIUM, ORAL) Take 250 mg by mouth once daily. 03/06/2023 Discontinued End: 03-06-2023 take 250 mg by mouth once daily calcium phosphate dibas/vit D3 (VITAMIN D, WITH CALCIUM, ORAL) Take 250 mg by mouth once daily. 0 03/06/2023 Discontinued take 250 mg by mouth once daily calcium phosphate dibas/vit D3 (VITAMIN D, WITH CALCIUM, ORAL) Take 250 mg by mouth once daily. 0 Active Comment on above: Take 250 mg by mouth once daily. cefadroxil 500 mg oral capsule (1 source) Cephalosporin Antibacterial Start: 01-01-20 14 End: 01-08-20 14 take 2 capsules by mouth every twelve hours at mealtime CEFADROXIL, 500MG (Oral Capsule) 2 (two) Capsule q12 hrs for 7 days Quantity: 28 {Capsule} Refills: 0 Ordered: 31-Dec-2013 Yudelka Hale Start : 31-Dec-2013 End : 07-Jan-2014 Inactive Comments: with food Comment on above: with food ciprofloxacin 500 mg oral tablet (6 sources) Quinolone Antimicrobial Start: 10-31-19 19 End: 04-30-20 19 take 1 tablet by mouth twice daily Ciprofloxacin Hcl 500 MG tablet Discontinued 500 mg PO TWICE A DAY 2018 12:00am April 30, 2019 2:18pm Start: 02-27-2013 End: 03-06-2013 take 1 tablet by mouth twice daily CIPRO, 500MG (Oral Tablet) 1 Tablet bid for 7 days Quantity: 14 {Tablet} Refills: 0 Ordered: 27-Feb-2013 Yudelka Hale Start : 27-Feb-2013 End : 06-Mar-2013 Inactive clonazePAM 0.5 mg oral tablet (20 sources) Benzodiazepine Start: 11-28-2022 End: 08-23-2023 take 1 tablet by mouth every twelve hours as needed for anxiety and anxiety clonazePAM (KLONOPIN) 0.5 mg tablet Indications: Anxiety Take 1 tablet by mouth twice daily as needed for up to 90 days. 60 tablet 2 01/02/2023 08/23/2023 Discontinued Comment on above: Take 1 tablet by bradley th twice daily as needed for up to 30 days. Take 1 tablet by bradley th twice daily as needed for up to 90 days. clotrimazole 10 mg oral lozenge (5 sources) Azole Antifungal Start: 12-21-2020 End: 01-04-2021 Clotrimazole 10 mg lauri Discontinued 10 mg MUCOUS MEM THREE TIMES A DAY 42 14 December 21, 2020 12:00am January 03, 2021 12:00am January 04, 2021 12:01am cyclobenzaprine hydrochloride 10 mg oral tablet (1 source) Muscle Relaxant Start: 03-04-2008 End: 10-14-2008 take 1 tablet by mouth three times daily as needed FLEXERIL, 10MG (Oral Tablet) 1 (one) Tablet tid prn for 0 days Quantity: 30 {Tablet} Refills: 0 Ordered: 04-Mar-2008 Lesley Fritz Start : 04-Mar-2008 End : 14-Oct-2008 Inactive 1 ml denosumab 60 mg/ml prefilled syringe (20 sources) RANK Ligand Inhibitor Start: 02-09-2022 End: 02-09-2022 denosumab 60 mg injection (PROLIA) Start: 2018 End: 11-11-2022 Denosumab Discontinued 60 MG SC [id number] 2018 8:52am November 11, 2022 9:21am twice a year Start: 07-06-2017 End: 11-11-2022 denosumab (PROLIA) 60 mg/mL Inject 1 mL subcutaneously once every 6 months. 1 mL 1 02/09/2022 02/09/2022 Discontinued (Course of therapy completed) Start: 07-06-2017 End: 2018 Denosumab Discontinued 60 MG SQ July 06, 2017 12:00am 2018 8:53am End: 02-09-2022 DENOSUMAB (PROLIA SUBCUTANEO US) Inject subcutaneously once every 6 months. 0 02/09/2022 Discontinued PROLIA, 60MG/ML (Subcutaneous Solution) q 6mo (60 MG/ML) Active DENOSUMAB (PROLI A SUBCUTANEOUS) Inject subcutaneously once every 6 months. 0 Active Comment on above: Inject subcutaneousl y once every 6 months. Inject 1 mL subcutan eously once every 6 months. desloratadine 5 mg oral tablet (1 source) Histamine-1 Receptor Antagonist Start: 09-29-19 End: 10-15-19 take 1 tablet by mouth once daily CLARINEX, 5MG (Oral Tablet) Tablet Daily for 0 days Refills: 0 Ordered: 28-Sep-2006 Lesley Fritz Start : 28-Sep-2006 End : 14-Oct-2008 Inactive desoximetasone 2.5 mg/ml topical cream (1 source) Corticosteroid Start: 10-15-19 09 End: 03-17-20 10 TOPICORT, 0.25% (External Cream) 1 (one) Cream bid prn for 0 days Quantity: 60 {Cream} Refills: 1 Ordered: 17-Mar-2010 Lesley Fritz Start : 14-Oct-2008 End : 17-Mar-2010 Inactive DULoxetine 60 mg delayed release oral capsule (20 sources) Serotonin and Norepinephrine Reuptake Inhibitor Start: 12-06-19 End: 03-06-20 23 DULoxetine (CYMBALTA) 60 mg capsule TAKE 1 CAPSULE ONCE DAILY. 90 capsule 3 12/06/2021 11/08/2022 Discontinued Start: 04-27-2015 CYMBALTA, 60MG (Oral Capsule Delayed Release Particles) 1 (one) Capsule DR Part qd for 90 days Quantity: 90 {Capsule} Refills: 3 Ordered: 27-Apr-2015 Fast DO, Nikki A Fast DO, Nikki A Start : 27-Apr-2015 Active Start: 01-26-2014 End: 12-19-2023 take 2 capsules by mouth once daily Duloxetine 30 mg capsule,delayed release(DR/EC) Discontinued 60 mg PO DAILY 2018 9:52am December 19, 2023 1:00pm Start: 01-26-2014 End: 2018 take 60 mg by mouth once daily Duloxetine Active 60 MG PO DAILY 2018 8:52am End: 12-03-2021 take 1 capsule by mouth once daily DULoxetine (CYMBALTA) 60 mg capsule Take 60 mg by mouth once daily. 0 12/03/2021 Discontinued Comment on above: Take 60 mg by mouth once daily. Take 1 capsule by [facility] once daily. TAKE 1 CAPSULE ONCE DAILY. TAKE 1 CAPSULE ONCE DAILY ergocalciferol 1.25 mg oral capsule (2 sources) Provitamin D2 Compound Start: 6 take 1 capsule by mouth every week VITAMIN D (ERGOCALCIFEROL) , [id number] (Oral Capsule) 1 (one) Capsule once a week for 90 days Quantity: 12 {Capsule} Refills: 0 Ordered: 02-Sep-2015 Fast DO, Nikki A Fast DO, Nikki A Start : 02-Sep-2015 Active Start: 11-19-2008 End: 03-17-2010 take 1 capsule by mouth every week ERGOCALCIFEROL, [id number] (Oral Capsule) 1 (one) Capsule qweek for 0 days Quantity: 12 {Capsule} Refills: 0 Ordered: 17-Mar-2010 Alyssia Fritznifer Start : 19-Nov-2008 End : 17-Mar-2010 Inactive 72 hr fentaNYL 0.025 mg/hr transdermal system (1 source) Opioid Agonist End: 02-03-2014 FENTANYL, 25MCG/HR (Transdermal Patch 72 Hour) 1 patch q 72hrs (25 MCG/HR) End : 03-Feb-2014 Discontinued ferrous sulfate 325 mg delayed release oral tablet (20 sources) Start: 01-31-2022 End: 12-19-2023 take 1 tablet by mouth once daily Ferrous Sulfate 325 mg (65 mg iron) tablet,delayed release (DR/EC) Discontinued 325 mg PO DAILY January 31, 2022 12:00am December 19, 2023 1:00pm End: 06-26-2024 take 2 tablets by mouth once daily ferrous sulfate (IRON ORAL) Take 2 tablets by mouth once daily. 06/26/2024 Discontinued take 2 tablets by mo uth once daily ferrous sulfate (IRON ORAL) Take 2 tablets by mouth once daily. Active take 65 mg by mouth once daily f errous sulfate (IRON ORAL) Take 65 mg by mouth once daily. 0 Active take 65 mg by mouth twice daily ferrous sulfate (IRON ORAL) Take 65 mg by mouth twice daily. 0 Active ferrous sulfate (IRON ORAL) Take 65 mg by mouth. 0 Active Comment on above: Take 65 mg by mouth. Take 65 mg by mouth twice daily. Take 65 mg by mouth once daily. ibandronic acid 150 mg oral tablet (1 source) Bisphosphonate Start: End: take 1 tablet by mouth every month BONIVA, 150MG (Oral Tablet) 1 Tablet monthly for 30 days Quantity: 1 {Tablet} Refills: 6 Ordered: 04-Sep-2012 Fast DO, Nikki A Fast DO, Nikki A Start : 04-Sep-2012 End : 04-Sep-2012 Discontinued Comments: Called to BMT at 1pm, 03/25/2011 Comment on above: Called to BMT at 1pm , 03/25/2011 ibuprofen 400 mg oral tablet (5 sources) Nonsteroidal Anti-inflammatory Drug Start: 014 End: take 1 tablet by mouth every six hours as needed for pain Ibuprofen 400 MG tablet Discontinued 400 mg PO EVERY 6 HOURS as needed for Pain January 26, 2014 10:36am June 29, 2017 12:50pm LORazepam 0.5 mg oral tablet (1 source) Benzodiazepine Start: 015 End: take 1 tablet by mouth once at bedtime as needed LORAZEPAM, 0.5MG (Oral Tablet) 1 (one) Tablet Tablet q hs, prn for 10 days Quantity: 10 {Tablet} Refills: 0 Ordered: 31-Oct-2014 Misty Gonzales LPN Start : 29-May-2014 End : 31-Oct-2014 Discontinued magnesium oxide 400 mg oral tablet (5 sources) Start: 021 End: take 1 tablet by mouth once daily Magnesium Oxide 400 MG tablet Discontinued 400 mg PO DAILY May 25, 2020 1:00am September 25, 2020 3:01pm meloxicam 15 mg oral tablet (20 sources) Nonsteroidal Anti-inflammatory Drug Start: 014 End: 023 take 1 tablet by mouth once daily Meloxicam 15 mg tablet Discontinued 15 mg PO DAILY January 31, 2022 12:00am November 11, 2022 10:21am Comment on above: Take 15 mg by mouth once daily. mesalamine 1200 mg delayed release oral tablet (1 source) Aminosalicylate Start: 013 End: take 2 tablets by mouth once daily LIALDA, 1.2GM (Oral Tablet Delayed Release) 2 (two) Tablet DR daily for 999 days Quantity: 60 {Tablet_DR} Refills: 6 Ordered: 04-Sep-2012 Fast DO, Nikki A Fast DO, Nikki A Start : 04-Sep-2012 End : 04-Sep-2012 Discontinued nabumetone 500 mg oral tablet (1 source) Nonsteroidal Anti-inflammatory Drug Start: 009 End: 010 NABUMETONE, 500MG (Oral Tablet) 1 tab Tablet bid, prn for 0 days Refills: 0 Ordered: 17-Mar-2010 Lesley Fritz Start : 19-Jan-2009 End : 17-Mar-2010 Inactive omeprazole 20 mg delayed release oral capsule (1 source) Proton Pump Inhibitor Start: End: OMEPRAZOLE, 20MG (Oral Capsule Delayed Release) [address] qd for 0 days Quantity: 30 {Capsule_DR} Refills: 5 Ordered: 04-Sep-2012 Fast DO, Nikki A Fast DO, Nikki A Start : 04-Sep-2012 End : 04-Sep-2012 Discontinued Comments: doesnt work as well as the protonix Comment on above: doesnt work as well as the protonix microencapsulated potassium chloride 20 meq extended release oral tablet (5 sources) Start: End: take 1 tablet by mouth once daily Potassium Chloride 20 MEQ tablet,ER particles/crystals Discontinued 20 meq PO DAILY May 25, 2020 1:00am September 25, 2020 3:01pm pramipexole dihydrochloride 0.125 mg oral tablet (1 source) Nonergot Dopamine Agonist Start: 014 End: 015 take 1-2 tablets by mouth once daily at bedtime as needed PRAMIPEXOLE DIHYDROCHLORIDE, 0.125MG (Oral Tablet) 1-2 Tablet Tablet qhs prn for 0 days Quantity: 60 {Tablet} Refills: 0 Ordered: 31-Oct-2014 Misty Gonzales LPN Start : 04-Dec-2013 End : 31-Oct-2014 Discontinued Risedronate (13 sources) Start: 023 End: 024 take 4 [oz_av] by mouth every week in the morning Risedronate 35 mg tablet,delayed release (DR/EC) Discontinued 35 mg PO EVERY WEEK November 11, 2022 12:00am December 19, 2023 1:01pm administer in the morning immediately following breakfast with at least 4 oz of plain water Start: 11-11-2022 take 4 [oz_av] by mo ut every week in the morning Risedronate Active 35 MG PO EVERY WEEK November 10, 2022 11:00pm administer in the morning immediately following breakfast with at least 4 oz of plain water Start: 08-29-2022 End: 08-29-2023 take 1 tablet by mouth every week in the morning risedronate (ACTONEL) 35 mg tablet TAKE 1 TABLET BY MOUTH ONCE WEEKLY, IN THE AM WITH A GLASS OF WATER, ON AN EMPTY STOMACH, NOTHING BY MOUTH OR LYING DOWN FOR 30 MINUTES 4 tablet 11 09/19/2022 10/12/2022 Discontinued (Side Effects) Start: 03-03-2011 End: 03-03-2011 take 1 tablet by mouth every week ATELVIA, 35MG (Oral Tablet Delayed Release) [address] q week for 0 days Quantity: 12 {Tablet_DR} Refills: 3 Ordered: 03-Mar-2011 ADELAIDA Carey LPN Start : 03-Mar-2011 End : 03-Mar-2011 Inactive Comments: diarrhea, joint pains Comment on above: diarrhea, joint pain s Take 1 tablet by bradley th one time a week. In am with glass of water, on a empty stomach, nothing by mouth or lying down for 30 minutes TAKE 1 TABLET BY BRADLEY TH ONCE WEEKLY, IN THE AM WITH A GLASS OF WATER, ON AN EMPTY STOMACH, NOTHING BY MOUTH OR LYING DOWN FOR 30 MINUTES tinidazole 500 mg oral tablet (13 sources) Nitroimidazole Antimicrobial Start: 01-04-20 End: 03-06-20 take 4 tablets by mouth once daily at breakfast tinidazole (TINDAMAX) 500 mg tablet Take 4 tablets by mouth daily with breakfast. 4 tablet 0 01/03/2023 03/06/2023 Discontinued Comment on above: Take 4 tablets by mo [facility] daily with breakfast. tiZANidine 2 mg oral capsule (20 sources) Central alpha-2 Adrenergic Agonist Start: 02-01-20 End: 11-12-19 take 1 capsule by mouth twice daily Tizanidine 2 mg capsule Discontinued 2 mg PO TWICE A DAY January 31, 2022 12:00am November 11, 2022 10:21am Start: 11-05-2021 End: 11-28-2022 take 1 tablet by mouth twice daily tiZANidine (ZANAFLEX) 2 mg tablet Take 1 tablet by mouth twice daily. 90 tablet 1 11/05/2021 11/28/2022 Discontinued Start: 09-28-2021 End: 11-03-2021 tiZANidine (ZANAFLEX) 2 mg t ablet 1 tablet twice daily. 0 09/28/2021 11/03/2021 Discontinued Comment on above: 1 tablet twice daily . Take 1 tablet by bradley th twice daily. 24 hr tolterodine tartrate 4 mg extended release oral capsule (1 source) Cholinergic Muscarinic Antagonist Start: 01-20-20 09 End: 03-17-20 10 take 1 capsule by mouth once daily DETROL LA, 4MG (Oral Capsule Extended Release 24 Hour) 1 (one) Capsule ER 24HR daily for 0 days Refills: 0 Ordered: 17-Mar-2010 Lesley Fritz Start : 19-Jan-2009 End : 17-Mar-2010 Inactive traMADol hydrochloride 50 mg oral tablet (20 sources) Opioid Agonist Start: 07-12-19 End: 09-22-19 24 take 1 tablet by mouth every eight hours as needed for pain traMADol (ULTRAM) 50 mg tablet Indications: Degeneration of lumbar or lumbosacral intervertebral disc Take 1 tablet by mouth every 8 hours as needed for pain for up to 30 days. 90 tablet 0 08/23/2023 09/22/2023 Active Start: 08-31-2015 take 1 tablet by bradley th three times daily TRAMADOL HCL, 50MG (Oral Tablet) 1 (one) Tablet tid for 30 days Quantity: 90 {Tablet} Refills: 1 Ordered: 31-Aug-2015 Fast DO, Nikki A Fast DO, Nikki A Start : 31-Aug-2015 Active Comments: Ninety Start: 01-26-2014 End: 12-07-2024 take 1 tablet by mouth every six hours as needed for pain traMADol (ULTRAM) 50 mg tablet Indications: Primary cancer of right lower lobe of lung (HCC) Take 1 tablet by mouth every 6 hours as needed for pain for up to 90 days. 90 tablet 06/13/2024 09/06/2024 Discontinued Comment on above: Take 50 mg by mouth every 6 hours as needed. Ninety Take 1 tablet by bradley th every 6 hours as needed. TAKE 1 TABLET BY BRADLEY TH EVERY 6 HOURS NEEDED Take 1 tablet by bradley th every 8 hours as needed for pain for up to 30 days. Take 50 mg by mouth every 6 hours as needed for pain. Take 1 tablet by bradley th every 6 hours as needed for pain for up to 90 days. Take 50 mg by mouth every 8 hours as needed for pain. vancomycin 125 mg oral capsule (19 sources) Glycopeptide Antibacterial Start: 02-20-2023 End: 06-21-2023 vancomycin (VANCOCIN) 125 mg capsule take 1 capsule by mouth three times a day for 10 days then 1 caps... (REFER TO PRESCRIPTION NOTES). 0 02/20/2023 06/21/2023 Discontinued (Course of therapy completed) Start: 02-09-2023 End: 02-19-2023 take 1 capsule by mouth four times daily vancomycin (VANCOCIN) 125 mg capsule Indications: C. difficile diarrhea Take 1 capsule by mouth four times daily for 10 days. 40 capsule 0 02/09/2023 02/19/2023 Active Start: 01-15-2023 End: 01-29-2023 take 1 capsule by mouth four times daily vancomycin (VANCOCIN) 125 mg capsule Indications: C. difficile diarrhea Take 1 capsule by mouth four times daily for 14 days. 56 capsule 0 01/15/2023 01/29/2023 Active Comment on above: Take 1 capsule by mo uth four times daily for 14 days. Take 1 capsule by mo uth four times daily for 10 days. take 1 capsule by mo uth three times a day for 10 days then 1 caps... (REFER TO PRESCRIPTION NOTES). vitamin B12 (1 source) Vitamin B12 take 500 mg under the tongue once daily Vitamin B12 500mg qd Active Comments: sublingual Comment on above: sublingual zinc acetate 50 mg oral capsule (3 sources) Start: 3 End: 4 take 1 capsule by mouth once daily Zinc Acetate 50 mg (zinc) capsule Discontinued 50 mg PO DAILY November 11, 2022 12:00am December 19, 2023 1:01pm Problems Active Problems Problem Classification Problem Date Documented Da te Episodic/Chronic Abdominal pain (5 sources) Abdominal pain; Translations: [Unspecified abdominal pain] 05-26-2020 Episodic Adjustment disorders (1 source) Grief finding; Translations: [Grieving] 08-31-2015 Chronic Comment on above: doesnt want to alvarez e meds Allergic reactions (2 sources) Dermatitis Resolved: 9 11-19-2008 Episodic Anxiety disorders (1 source) Anxiety; Translations: [Anxiety disorder, unspecified] 01-02-2023 Chronic Cancer of bronchus; lung (20 sources) Malignant neoplasm of middle lobe, bronchus or lung; Translations: [Malignant neoplasm of middle lobe, bronchus or lung] Onset: 0 Resolved: 3 Chronic Cancer; other respiratory and intrathoracic (1 source) Malignant neoplasm of lower respiratory tract 06-27-2024 Chronic Cardiac dysrhythmias (20 sources) Paroxysmal atrial fibrillation; Translations: [Paroxysmal atrial fibrillation] Onset: 1 06-27-2020 Chronic Chronic kidney disease (20 sources) Chronic kidney disease stage 2; Translations: [Chronic kidney disease, stage 2 (mild)] 10-12-2021 Chronic Chronic kidney disease (3 sources) Chronic kidney disease; Translations: [Stage 3 chronic kidney disease, unspecified whether stage 3a or 3b CKD (HCC)] Onset: 3 Chronic obstructive pulmonary disease and bronchiectasis (20 sources) Centriacinar emphysema; Translations: [Centrilobular emphysema] Onset: 2 Chronic Chronic obstructive pulmonary disease and bronchiectasis (2 sources) Bronchitis; Translations: [Bronchitis, not specified as acute or chronic] Onset: 5 07-17-2024 Episodic Conditions associated with dizziness or vertigo (3 sources) Vertigo; Translations: [Vertigo] Onset: 1 08-31-2015 Episodic Comment on above: will take calritin, do vertigo exercises, sleep inrecliner, use bonine, clean inner ear. told to call if diplopia, bad headache, syncope, unilateral weakness or paresthesia, gait or speech change. not molly next week call. check ortho Deficiency and other anemia (2 sources) Anemia of chronic disease; Translations: [Anemia in other chronic diseases classified elsewhere] Chronic Deficiency and other anemia (20 sources) Pancytopenia; Translations: [Other pancytopenia] Onset: 3 07-08-2022 Chronic Deficiency and other anemia (1 source) Other pancytopenia; Translations: [Pancytopenia (HCC)] Onset: 3 Chronic Disorders of lipid metabolism (20 sources) Mixed hyperlipidemia; Translations: [Mixed hyperlipidemia] Onset: 1 08-31-2015 Chronic Comment on above: improved Esophageal disorders (20 sources) Gastroesophageal reflux disease; Translations: [Gastro-esophageal reflux disease without esophagitis] Onset: 6 05-31-2005 Chronic Comment on above: chronic stable-syeda nue present regimen Esophageal disorders (2 sources) Esophageal disorders Essential hypertension (20 sources) Essential hypertension; Translations: [Essential (primary) hypertension] Onset: 2 Chronic Fracture of upper limb (1 source) Fracture of distal end of radius; Translations: [Distal radius fracture, left] 08-31-2015 Episodic Gastrointestinal hemorrhage (7 sources) Hematochezia; Translations: [Melena] Episodic Genitourinary symptoms and ill-defined conditions (4 sources) Increased frequency of urination; Translations: [Urinary frequency] Resolved: 0 02-10-2015 Episodic Immunizations and screening for infectious disease (2 sources) Needs influenza immunization; Translations: [Need for prophylactic vaccination and inoculation against influenza] Resolved: 2 02-10-2015 Episodic Intestinal obstruction without hernia (2 sources) Intussusception of intestine; Translations: [Intussusception] Episodic Lung disease due to external agents (4 sources) 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; 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] Onset: 5 12-26-2023 Chronic Malaise and fatigue (20 sources) Malaise and fatigue; Translations: [Other malaise] Onset: 4 05-31-2005 Episodic Menopausal disorders (2 sources) Menopausal and postmenopausal disorders; Translations: [Unspecified menopausal and perimenopausal disorder] Resolved: 0 04-17-2015 Chronic Mood disorders (20 sources) Recurrent major depression in remission; Translations: [Major depressive disorder, recurrent, in remission, unspecified] Onset: 7 06-27-2020 Chronic Comment on above: try changing it to h s andif not better and mood stillissue will achange meds and she dosnt wish to do counseling Mycoses (5 sources) Candidiasis of mouth; Translations: [Candidal stomatitis] 12-21-2020 Episodic Noninfectious gastroenteritis (20 sources) Microscopic colitis; Translations: [Microscopic colitis, unspecified] 04-22-2010 Chronic Nonspecific chest pain (20 sources) Chest pain; Translations: [Chest pain, unspecified] Resolved: 0 05-31-2005 Episodic Nutritional deficiencies (20 sources) Vitamin D deficiency; Translations: [Vitamin D deficiency, unspecified] Onset: 7 08-31-2015 Chronic Osteoarthritis (20 sources) Osteoarthritis; Translations: [Unspecified osteoarthritis, unspecified site] Onset: 7 07-08-2022 Chronic Osteoporosis (20 sources) Osteoporosis; Translations: [Osteoporosis] Onset: 7 08-31-2015 Chronic Other aftercare (5 sources) Drug therapy finding; Translations: [Other mcc (current) drug therapy] 07-11-2021 Episodic Other aftercare (1 source) History of malignant neoplasm of thoracic cavity structure; Translations: [Encounter for follow-up examination after completed treatment for malignant neoplasm] 06-27-2024 Episodic Other connective tissue disease (2 sources) Foot pain; Translations: [Foot pain] Resolved: 0 03-17-2010 Episodic Other connective tissue disease (2 sources) Swelling of limb; Translations: [Swelling of limb] Resolved: 1 08-10-2010 Episodic Comment on above: watch salt and suppo rt hose-has varicose veins Other connective tissue disease (1 source) Pain in right foot; Translations: [Pain in right foot] 05-10-2024 Episodic Other connective tissue disease (1 source) Pain in right arm; Translations: [Pain in right arm] 06-08-2024 Episodic Other connective tissue disease (1 source) Swelling of lower limb; Translations: [Other specified soft tissue disorders] 07-10-2024 Episodic Other diseases of kidney and ureters (1 source) Renal impairment; Translations: [Disorder of kidney and ureter, unspecified] Episodic Other ear and sense organ disorders (6 sources) Impacted cerumen; Translations: [Cerumen impaction] Resolved: 1 02-10-2015 Episodic Other endocrine disorders (20 sources) Adrenal cortical hypofunction; Translations: [Unspecified adrenocortical insufficiency] Onset: 3 Chronic Other endocrine disorders (1 source) Unspecified adrenocortical insufficiency; Translations: [ACI (adrenal cortical insufficiency) (HCC)] Onset: 3 Chronic Other female genital disorders (1 source) Pruritus of vagina; Translations: [Other specified noninflammatory disorders of vagina] 01-25-2023 Episodic Other fractures (3 sources) Fracture of rib; Translations: [Fracture of rib] 08-31-2015 Episodic Comment on above: better Other gastrointestinal disorders (20 sources) Irritable bowel syndrome; Translations: [Irritable bowel syndrome]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 Office Visit (PULMWS ) KATRINA SERRANO ([id number]) 1955 F Date Time Provider Department 08/07/24 10:30 AM RONALD GARRIDO PULMWS During your visit today, we recorded the following information about you: Pulse Respiration Blood pressure Weight 68/minute 18/minute 108/68 89.4 kg Ronald Garrido APRN.[employer] 08/07/2024 12:32 PM Signed Pulmonary Medicine Patients name: Katrina Henson PCP: Dennis Marcial MD CC: follow-up COPD HPI: Katrina Serrano is a 68 year old female former [id number] smoker, quitting in 1999 with PMH significant for COPD, nocturnal oxygen need, GERD, AF, CKD, history of lung cancer and radiation fibrosis. 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 Was on Durvalumab for 4 doses but discontinued due to severe colitis. 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 Current inhaled therapy consists of Anoro Ellipta with as needed albuterol. She presents today for testing and follow-up. [facility] 06/28/[address] suggesting Pneumonia. Was treated by her PCP with Augmentin and Doxycycline with the doxycycline coarse extended at her [place]. Follow-up chest xray with no new concerns. She was seen by her PCP on 07/17 and required another course of Doxycycline and Prednisone taper for sinus and chest congestion with a productive cough. Finished treatment last week and overall feeling well. Today, patient reports cough, occasionally productive with white sputum. No hemoptysis. Denies wheezing, chest tightness or shortness of breath. No fevers, chills, or night sweats. 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 If you have any questions, ask your nurse or doctor. CONTINUE taking these medications albuterol HFA 90 mcg/actuation inhaler Commonly known as: PROVENTIL HFA, VENTOLIN HFA Inhale 2 Puffs as instructed every 4 hours as needed for wheezing/shortness of breath. alendronate 70 mg tablet Commonly known as: FOSAMAX Take 1 tablet by mouth one time a week. In am with glass of water, on a empty stomach, nothing by mouth or lying down for 30 minutes amitriptyline 50 mg tablet Commonly known as: ELAVIL Take 1 tablet by mouth daily at bedtime. ANORO ELLIPTA 62.5-25 mcg/actuation inhaler Generic drug: umeclidinium-vilantero l Inhale 1 Inhalation as instructed once daily. hydrOXYchloroQUINE 200 mg tablet Commonly known as: PLAQUENIL metoprolol tartrate (short acting) 25 mg tablet Commonly known as: LOPRESSOR Take 0.5 tablets by mouth two times a day. MYRBETRIQ 50 mg Tb24 Generic drug: mirabegron OXYGEN (HOME THERAPY) pantoprazole DR 40 mg tablet Commonly known as: PROTONIX Take 1 tablet by mouth once daily. predniSONE 20 mg tablet Commonly known as: DELTASONE Take 3 tablets by mouth once daily. X3d then 2 po every day, x3d,then 1 po every day x3d, then 1/2 po every day x4d. PROBIOTIC ORAL rOPINIRole 1 mg tablet Commonly known as: REQUIP Take 1 tablet by mouth daily at bedtime. sertraline 100 mg tablet Commonly known as: ZOLOFT Take 1 tablet by mouth once daily. simvastatin 20 mg tablet Commonly known as: ZOCOR Take 1 tablet by mouth daily at bedtime. traMADol 50 mg tablet Commonly known as: ULTRAM Take 1 tablet by mouth every 6 hours as needed for pain for up to 90 days. VITAMIN D3 ORAL XARELTO 20 mg tablet Generic drug: rivaroxaban DATA: I personally reviewed and analyzed all labs, radiographs and available pulmonary function testing PFT: 08/07/202404/2021 Spirometry shows no obstruction.The reduced FVC suggests restriction. Lung volumes indicate restriction The presence of a reduced lung diffusion capacity - that normalizes when measured independent of alveolar volume (kCO) is consistent with a nonparenchymal disorder but does not rule out parenchymal or pulmonary vascular disorder. CXR: Last XR Chest - Impression Only XR CHEST 2V FRONTAL/LAT Exam End: 07/05/2024 1 (more content not included)... 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 No contraindications or sensitivities were noted. Meds taken: Anoro 1 hours before testing. Current ATS/ERS acceptability and repeatability standards for spirometry met. Start of test and EOFE criteria met. Current ATS/ERS acceptability and repeatability standards for lung volumes met. Current ATS/ERS acceptability and repeatability standards for DLCO met with 2 acceptable maneuvers. DLCO is hemoglobin corrected. Hemoglobin obtained from [facility] on 07-22-24. IMPRESSION: Spirometry indicates no obstruction. The reduced FVC could indicate restriction, recommend lung volumes for definitive determination. Decrease in TLC indicates restriction. The diffusing capacity (corrected for hemoglobin) is reduced. The reduced kCO (DLCO/VA) reflects an alteration of the normal transfer/diffusion of CO from the alveolar regions to the blood. Clinical correlation recommended. Electronically Signed On 08-08-2024 16:12:32 EDT by Oscar Mireles MD ID: [id number] Name: KATRINA SERRANO Race: White Ht: 64.53 in Wt: 197.00 lbs Age: 68 Gender: Female : 1955 Dx: Chronic obstructive pulmonary disease, unspecified Smoking Hx: Non-smoker Doctor: RONALD GARRIDO Test Date: 08/07/2024 Site: Tech: Dee Dee Escoto PRE-BRONCH POST-BRONCH Dave LLN Pred ULN %Pred ZScore Dave %Pred %Chg ZScore SPIROMETRY FVC 2.25 2.02 2.84 3.69 79 -1.18 FEV1 1.74 1.55 2.21 2.84 78 -1.20 FEV1/FVC 0.77 0.66 0.79 0.89 98 -0.21 FEFMax 6.48 4.08 5.82 7.56 111 0.63 FEF50 2.32 1.57 3.17 4.78 73 -0.87 FIF50 2.49 FEF50/FIF50 0.93 90-100 FIVC 2.20 CIS52-55 1.50 0.91 1.94 3.39 77 -0.62 ExpiredTime 7.14 TimeToFEFMax 0.08 RACHEL 0.10 VolExtrap% 4 LUNG VOLUMES FRC(Pleth) 1.57 2.07 2.93 3.79 53 -2.61 ERV 0.39 0.95 40 RV(Pleth) 1.23 1.56 2.19 2.82 56 -2.51 SVC 2.34 2.02 2.84 3.69 82 -0.99 IC 1.90 1.89 100 TLC(Pleth) 3.45 4.25 5.13 6.01 67 -3.14 RV/TLC(Pleth) 36 34 43 52 83 -1.31 LUNG DIFFUSION DLCOunc 10.40 14.70 20.87 27.04 49 -2.79 DLCOStdPB 10.20 14.70 20.87 27.04 48 -2.85 DLCORefHb 10.20 18.90 53 VA 3.38 4.05 5.15 6.25 65 -2.65 Kco 3.02 3.16 4.13 5.23 73 -1.90 Hgb 10.70 12-18 Comments: Medications and Allergies were reviewed for possible drug interactions per policy. No contraindications or sensitivities were noted. Meds taken: Anoro 1 hours before testing. Current ATS/ERS acceptability and repeatability standards for spirometry met. Start of test and EOFE criteria met. Current ATS/ERS acceptability and repeatability standards for lung volumes met. Current ATS/ERS acceptability and repeatability standards for DLCO met with 2 acceptable maneuvers. DLCO is hemoglobin corrected. Hemoglobin obtained from [facility] on 07-22-24. Normal [facility] LUNG VOLUMESon 08-07-2024 LUNG VOLUMES [facility] [address] [facility], [place] [address] Test Date: 2024-08-07 Pat Name: KATRINA SERRANO Department: Room: Gender: Female Strip Polisher: : 1955 Requested By: Order Number: [id number] Reading MD: Oscar Mireles MD Interpretive Statements Medications and Allergies were reviewed for possible drug interactions per policy. No contraindications or sensitivities were noted. Meds taken: Anoro 1 hours before testing. Current ATS/ERS acceptability and repeatability standards for spirometry met. Start of test and EOFE criteria met. Current ATS/ERS acceptability and repeatability standards for lung volumes met. Current ATS/ERS acceptability and repeatability standards for DLCO met with 2 acceptable maneuvers. DLCO is hemoglobin corrected. Hemoglobin obtained from [facility] on 07-22-24. IMPRESSION: Spirometry indicates no obstruction. The reduced FVC could indicate restriction, recommend lung volumes for definitive determination. Decrease in TLC indicates restriction. The diffusing capacity (corrected for hemoglobin) is reduced. The reduced kCO (DLCO/VA) reflects an alteration of the normal transfer/diffusion of CO from the alveolar regions to the blood. Clinical correlation recommended. Electronically Signed On 08-08-2024 16:12:32 EDT by Oscar Mireles MD ID: [id number] Name: KATRINA SERRANO Race: White Ht: 64.53 in Wt: 197.00 lbs Age: 68 Gender: Female : 1955 Dx: Chronic obstructive pulmonary disease, unspecified Smoking Hx: Non-smoker Doctor: RONALD GARRIDO Test Date: 08/07/2024 Site: B[facility] Tech: Dee Dee Escoto PRE-BRONCH POST-BRONCH Dave LLN Pred ULN %Pred ZScore Dave %Pred %Chg ZScore SPIROMETRY FVC 2.25 2.02 2.84 3.69 79 -1.18 FEV1 1.74 1.55 2.21 2.84 78 -1.20 FEV1/FVC 0.77 0.66 0.79 0.89 98 -0.21 FEFMax 6.48 4.08 5.82 7.56 111 0.63 FEF50 2.32 1.57 3.17 4.78 73 -0.87 FIF50 2.49 FEF50/FIF50 0.93 90-100 FIVC 2.20 PGB26-16 1.50 0.91 1.94 3.39 77 -0.62 ExpiredTime 7.14 TimeToFEFMax 0.08 RACHEL 0.10 VolExtrap% 4 LUNG VOLUMES FRC(Pleth) 1.57 2.07 2.93 3.79 53 -2.61 ERV 0.39 0.95 40 RV(Pleth) 1.23 1.56 2.19 2.82 56 -2.51 SVC 2.34 2.02 2.84 3.69 82 -0.99 IC 1.90 1.89 100 TLC(Pleth) 3.45 4.25 5.13 6.01 67 -3.14 RV/TLC(Pleth) 36 34 43 52 83 -1.31 LUNG DIFFUSION DLCOunc 10.40 14.70 20.87 27.04 49 -2.79 DLCOStdPB 10.20 14.70 20.87 27.04 48 -2.85 DLCORefHb 10.20 18.90 53 VA 3.38 4.05 5.15 6.25 65 -2.65 Kco 3.02 3.16 4.13 5.23 73 -1.90 Hgb 10.70 12-18 Comments: Medications and Allergies were reviewed for possible drug interactions per policy. No contraindications or sensitivities were noted. Meds taken: Anoro 1 hours before testing. Current ATS/ERS acceptability and repeatability standards for spirometry met. Start of test and EOFE criteria met. Current ATS/ERS acceptability and repeatability standards for lung volumes met. Current ATS/ERS acceptability and repeatability standards for DLCO met with 2 acceptable maneuvers. DLCO is hemoglobin corrected. Hemoglobin obtained from [facility] on 07-22-24. Normal [facility] SPIROMETRY WITH DILATOR IF O BSTRUCTEDon 08-07-2024 SPIROMETRY WITH DILATOR IF OBSTRUCTED [place] [id number] [facility] [place] [address] Test Date: 2024-08-07 Pat Name: KATRINA SERRANO Department: Room: Gender: Female Strip Polisher: : 1955 Requested By: Order Number: [id number] Reading MD: Oscar Mireles MD Interpretive Statements Medications and Allergies were reviewed for possible drug interactions per policy. No contraindications or sensitivities were noted. Meds taken: Anoro 1 hours before testing. Current ATS/ERS acceptability and repeatability standards for spirometry met. Start of test and EOFE criteria met. Current ATS/ERS acceptability and repeatability standards for lung volumes met. Current ATS/ERS acceptability and repeatability standards for DLCO met with 2 acceptable maneuvers. DLCO is hemoglobin corrected. Hemoglobin obtained from [facility] on 07-22-24. IMPRESSION: Spirometry indicates no obstruction. The reduced FVC could indicate restriction, recommend lung volumes for definitive determination. Decrease in TLC indicates restriction. The diffusing capacity (corrected for hemoglobin) is reduced. The reduced kCO (DLCO/VA) reflects an alteration of the normal transfer/diffusion of CO from the alveolar regions to the blood. Clinical correlation recommended. Electronically Signed On 08-08-2024 16:12:32 EDT by Oscar Mireles MD ID: [id number] Name: KATRINA SERRANO Race: White Ht: 64.53 in Wt: 197.00 lbs Age: 68 Gender: Female : 1955 Dx: Chronic obstructive pulmonary disease, unspecified Smoking Hx: Non-smoker Doctor: RONALD GARRIDO Test Date: 08/07/2024 Site: Tech: Dee Dee Escoto PRE-BRONCH POST-BRONCH Dave LLN Pred ULN %Pred ZScore Dave %Pred %Chg ZScore SPIROMETRY FVC 2.25 2.02 2.84 3.69 79 -1.18 FEV1 1.74 1.55 2.21 2.84 78 -1.20 FEV1/FVC 0.77 0.66 0.79 0.89 98 -0.21 FEFMax 6.48 4.08 5.82 7.56 111 0.63 FEF50 2.32 1.57 3.17 4.78 73 -0.87 FIF50 2.49 FEF50/FIF50 0.93 90-100 FIVC 2.20 NKM84-23 1.50 0.91 1.94 3.39 77 -0.62 ExpiredTime 7.14 TimeToFEFMax 0.08 RACHEL 0.10 VolExtrap% 4 LUNG VOLUMES FRC(Pleth) 1.57 2.07 2.93 3.79 53 -2.61 ERV 0.39 0.95 40 RV(Pleth) 1.23 1.56 2.19 2.82 56 -2.51 SVC 2.34 2.02 2.84 3.69 82 -0.99 IC 1.90 1.89 100 TLC(Pleth) 3.45 4.25 5.13 6.01 67 -3.14 RV/TLC(Pleth) 36 34 43 52 83 -1.31 LUNG DIFFUSION DLCOunc 10.40 14.70 20.87 27.04 49 -2.79 DLCOStdPB 10.20 14.70 20.87 27.04 48 -2.85 DLCORefHb 10.20 18.90 53 VA 3.38 4.05 5.15 6.25 65 -2.65 Kco 3.02 3.16 4.13 5.23 73 -1.90 Hgb 10.70 12-18 Comments: Medications and Allergies were reviewed for possible drug interactions per policy. No contraindications or sensitivities were noted. Meds taken: Anoro 1 hours before testing. Current ATS/ERS acceptability and repeatability standards for spirometry met. Start of test and EOFE criteria met. Current ATS/ERS acceptability and repeatability standards for lung volumes met. Current ATS/ERS acceptability and repeatability standards for DLCO met with 2 acceptable maneuvers. DLCO is hemoglobin corrected. Hemoglobin obtained from [facility] on 07-22-24. FVC_PRE (L) : 2.25 L FVC_PRED (L) : 2.84 L FVC_LLN (L) : 2.02 L FVC_ULN (L) : 3.69 L FEV1_PRE (L) : 1.74 L FEV1_PRED (L) : 2.21 L FEV1_LLN (L) : 1.55 L FEV1_ULN (L) : 2.84 L FEV1/FVC_PRE (%) : 77 % FEV1/FVC_PRED (%) : 79 % FEV1/FVC_LLN (%) : 66 % PSJ11_KWC (L/S) : 6.37 L/S IHD61_HDB (L/S) : 0.38 L/S LKG75_CKLG (L/S) : 0.49 L/S TTT66_TNF (L/S) : 0.18 L/S XXD55_ENC (L/S) : 1.26 L/S ZPN00-66%_PRE (L/S) : 1.50 L/S JUU26-06%_PRED (L/S) : 1.94 L/S YBF98-14%_LLN (L/S) : 0.91 L/S PEF_PRE (L/S) : 6.48 L/S PEFMAX_LLN (L/S) : 4.08 L/S PEFMAX_ULN (L/S) : 7.56 L/S VC BOX (L) : 2.34 L SVC_PRED (L) : 2.84 L/S SVC_LLN (L) : 2.02 L/S SVC_ULN (L/S) : 3.69 L/S IC BOX (L) : 1.90 L IC_PRED (L) : 1.89 L/S ERV BOX (L) : 0.39 L ERV_PREDICTED (L) : 0.95 L/S DLCO (ML/MIN/MMHG) : 10.40 ml/min/mmHg DLCO_PRED (ML/MIN/MMHG) : 20.87 ml/min/mmHg DLCO_LLN(ML/MIN/MMHG) : 14.70 ml/min/mmHg DLCO_ULN (ML/MIN/MMHG) : 27.04 ml/min/mmHg FET_PRE (S) : 7.14 S FRC BOX (L) : 1.57 L RV BOX (L) : 1.19 L RV_PLETH_PRED (L) : 2.19 L TLC BOX (L) : 3.47 L TLC_PLETH_PRED (L) : 5.13 L RV/TLC BOX (%) : 34 % RV_TLC_PLETH_PRED (%) : 43 % VA (L) : 3.38 L VA_PRD (L) : 5.15 L DLCO/VA (ML/MIN/MMHG/L) : 0.03 ml/min/mmHg/L DLCO_VA_PRED (L) : 0.04 ml/min/mmHg/L DLCOCOR (ML/MIN/MMHG) : 10.20 ml/min/mmHg DLCOCOR_PRED (ML/MIN/MMHG) : 18.90 ml/min/mmHg DLCO/VACOR (ML/MIN/MMHG/L) : 0.03 ml/min/mmHg/L Normal [facility] Absolute lymphocyte counton 07-22-2024 Lymphocytes (Bld) [#/Vol] 2.13 10*3/uL 0.83-4.51 [facility] Absolute neutrophil countOrd ered By: Alexandra Baker on 07-22-2024 Neutrophils (Bld) [#/Vol] 3.8 10*3/uL 2.0-7.7 [facility] Anion gap in Serum or Plasma Ordered By: Alexandra Baker on 07-22-2024 Anion gap [Moles/Vol] 10 mmol/L 5-15 [facility] Automated blood erythrocyte counton 07-22-2024 RBC (Bld) [#/Vol] 3.52 10*6/uL Low 4.2-5.4 [facility] Comment on above: Performed By: #### L 100.0100, L500.4050 #### [facility] [address] [place], [address] Automated blood hematocrit ( percentage)on 07-22-2024 Hematocrit (Bld) [Volume fraction] 33.6 % Low 37-47 [facility] Comment on above: Performed By: #### L 100.0100, L500.4050 #### [facility] [address] [place], [address] Automated lymphocyte count a s percentage of total leukocyteson 07-22-2024 Lymphocytes/100 WBC (Bld) 32.4 % Normal 19-41 [facility] Comment on above: Performed By: #### L 100.0100, L500.4050 #### [facility] [address] [place], [address] BUN/creatinine ratioon 07-22 Urea nitrogen/Creatinine [Mass ratio] 21.9 mg/mg High 10-20 [facility] Basophil percentageon 2024 Basophils/100 WBC (Bld) 0.3 % Normal 0-1 [facility] Comment on above: Performed By: #### L 100.0100, L500.4050 #### [facility] [address] [place], [address] Bilirubin, totalOrdered By: Alexandra Baker on 07-22-2024 Bilirubin [Mass/Vol] 0.18 mg/dL 0.00-1.30 [facility] CBC W Auto Differential pane l (Bld)on 07-22-2024 Immature Gran % 0.5 % [facility] MCHC 31.8 % Abnormal 32 - 36 % [facility] NEUT ABS 3.8 K/uL 1.9 - 8 K/uL [facility] Platelet mean volume (Bld) [Entitic vol] 10 % 7.3 - 11.1 % [facility] RDW-SD 47.4 [facility] Scanned in chart fro m outside source [facility] CBC W/Diff, Automatedon 07-06 Absolute Lymph 2.13 X10 3/uL Normal 0.83-4.51 [facility] Comment on above: Performed By: #### L 100.0100, L500.4050 #### [facility] [address] [place], [address] Absolute Neut 3.8 X10 3/uL Normal 2.0-7.7 [facility] Comment on above: Performed By: #### L 100.0100, L500.4050 #### [facility] [address] [place], [address] IG% 0.500 Normal 0.0-0.9 [facility] Comment on above: Result Comment: IG% - Immature Granulocytes (promyelocytes, myelocytes and metamyelocytes) > 1% indicates that a LEFT SHIFT is Present. Performed By: #### L 100.0100, L500.4050 #### [facility] [address] [place], [address] MCHC (RBC) [Mass/Vol] 31.8 g/dL Low 32-36 [facility] Comment on above: Performed By: #### L 100.0100, L500.4050 #### [facility] [address] [place], [address] Nucleated RBC (Bld) [#/Vol] 0 10*3/uL Normal 0-5 [facility] Comment on above: Performed By: #### L 100.0100, L500.4050 #### [facility] [address] [place], [address] Platelet mean volume (Bld) [Entitic vol] 10.0 fL Normal 6.2-12.0 [facility] Comment on above: Performed By: #### L 100.0100, L500.4050 #### [facility] [address] [place], [address] RDW SD 47.4 fl High 35.1-43.9 [facility] Comment on above: Performed By: #### L 100.0100, L500.4050 #### [facility] [address] [place], [address] CMP (EXTERNAL)on 07-22-2024 Alk Phos Total 98 U/L 45 - 117 U/L [facility] Bili Total 0.18 mg/dL Abnormal 0.2 - 1 mg/dL [facility] GFR 44 mL/MIN [facility] Scanned into chart from outside source [facility] Carbon dioxide, total [Moles /volume] in Central venous bloodon 07-22-2024 CO2 [Moles/Vol] 25.9 mmol/L Normal 21.0-32.0 [facility] Comment on above: Performed By: #### L 100.0100, L500.4050 #### [facility] [address] [place], [address] Chloride assayon 07-22-2024 Chloride [Moles/Vol] 104 mmol/L Normal 98-108 [facility] Comment on above: Performed By: #### L 100.0100, L500.4050 #### [facility] [address] [place], [address] Comprehensive Metabolic Prof ilon 07-22-2024 ALK PHOS 98 U/L Normal 35-104 [facility] Comment on above: Performed By: #### L 100.0100, L500.4050 #### [facility] [address] [place], [address] Bilirubin [Mass/Vol] 0.18 mg/dL Normal 0.00-1.30 [facility] Comment on above: Performed By: #### L 100.0100, L500.4050 #### [facility] [address] [place], [address] GAP 10 Normal 5-15 [facility] Comment on above: Performed By: #### L 100.0100, L500.4050 #### [facility] [address] [place], [address] Globulin (S) [Mass/Vol] 2.9 g/dL Normal 2.2-4.2 [facility] Comment on above: Performed By: #### L 100.0100, L500.4050 #### [facility] [address] [place], [address] BUN/CRE 21.9 RATIO High 10-20 [facility] Comment on above: Performed By: #### L 100.0100, L500.4050 #### [facility] [address] [place], [address] GFR/1.73 sq M.predicted among non-blacks MDRD (S/P/Bld) [Vol rate/Area] 44 mL/min/{1.73_m2} Low >60 [facility] Comment on above: Result Comment: mL/m in/1.73m2 CKD-EPI Creatinine Equation (2020) Performed By: #### L 100.0100, L500.4050 #### [facility] [address] [place], [address] T PROT 6.7 g/dL Normal 5.9-8.4 [facility] Comment on above: Performed By: #### L 100.0100, L500.4050 #### [facility] [address] [place], [address] AST [Catalytic activity/Vol] 18 U/L Normal <=31 [facility] Comment on above: Performed By: #### L 100.0100, L500.4050 #### [facility] [address] [place], [address] Eosinophil percentageon 07-06 Eosinophils/100 WBC (Bld) 1.8 % Normal 0-5 [facility] Comment on above: Performed By: #### L 100.0100, L500.4050 #### [facility] [address] [place], [address] Erythrocyte distribution wid th ratioon 07-22-2024 Erythrocyte distribution width (RBC) [Ratio] 13.6 % Normal 11.6-14.6 [facility] Comment on above: Performed By: #### L 100.0100, L500.4050 #### [facility] [address] [place], [address] Erythrocyte distribution wid th standard deviationOrdered By: Alexandra Baker on 07-22-2024 Erythrocyte distribution width (RBC) [Entitic vol] 47.4 fL High 35.1-43.9 [facility] GFR/1.73 sq M.predicted maria luisa g non-blacks MDRD (S/P/Bld) [Vol rate/Area]Ordered By: Alexandra Baker on 07-22-2024 Estimated GFR (MDRD) Non-Af Amer 44 Low >60 [facility] Comment on above: mL/min/1.73m2 CKD-EP I Creatinine Equation (2020) Hemoglobin measurementon Hemoglobin (Bld) [Mass/Vol] 10.7 g/dL Low 12.0-15.0 [facility] Comment on above: Performed By: #### L 100.0100, L500.4050 #### [facility] [address] [place], [address] Immature granulocytes/100 WB C Auto (Bld)Ordered By: Alexandra Baker on 07-22-2024 Immature granulocytes/100 WBC (Bld) 0.500 % 0.0-0.9 [facility] Comment on above: IG% - Immature Granu locytes (promyelocytes, myelocytes and metamyelocytes) > 1% indicates that a LEFT SHIFT is Present. MCV (mean corpuscular volume ) determinationon 07-22-2024 MCV (RBC) [Entitic vol] 95.5 fL Normal 81-99 [facility] Comment on above: Performed By: #### L 100.0100, L500.4050 #### [facility] [address] [place], [address] Mean corpuscular hemoglobin (MCH) determinationon 07-22-2024 MCH (RBC) [Entitic mass] 30.4 pG Normal 27.0-32.0 [facility] Comment on above: Performed By: #### L 100.0100, L500.4050 #### [facility] [address] [place], [address] Mean corpuscular hemoglobin concentration (MCHC) determinationOrdered By: Alexandra Baker on 07-22-2024 MCHC (RBC) [Mass/Vol] 31.8 g/dL Low 32-36 [facility] Mean platelet volume determi nationOrdered By: Alexandra Baker on 07-22-2024 Platelet mean volume (Bld) [Entitic vol] 10.0 fL 6.2-12.0 [facility] Monocyte percentageon 2024 Monocytes/100 WBC (Bld) 8.1 % Normal 0-10 [facility] Comment on above: Performed By: #### L 100.0100, L500.4050 #### [facility] [address] [place], [address] Neutrophil percentageon 07-06 Neutrophils/100 WBC (Bld) 56.9 % Normal 47-70 [facility] Comment on above: Performed By: #### L 100.0100, L500.4050 #### [facility] [address] [place], [address] No Panel Informationon 07-22 Interpretation and review of laboratory results Abnormal [facility] Nucleated red blood cell per centageOrdered By: Alexandra Baker on 07-22-2024 Nucleated RBC/100 WBC (Bld) [Ratio] 0 % 0-5 [facility] Platelet counton 07-22-2024 Platelets (Bld) [#/Vol] 296 10*3/uL Normal 150-450 [facility] Comment on above: Performed By: #### L 100.0100, L500.4050 #### [facility] [address] [place], [address] Potassium measurement (mass/ volume)on 07-22-2024 Potassium [Moles/Vol] 3.7 mmol/L Normal 3.3-5.1 [facility] Comment on above: Performed By: #### L 100.0100, L500.4050 #### [facility] [address] [place], [address] Serum creatinine measurement (mass/volume)on 07-22-2024 Creatinine [Mass/Vol] 1.32 mg/dL High 0.70-1.20 [facility] Comment on above: Performed By: #### L 100.0100, L500.4050 #### [facility] [address] [place], [address] Serum globulin measurementOr dered By: Alexandra Baker on 07-22-2024 Globulin (S) [Mass/Vol] 2.9 g/dL 2.2-4.2 [facility] Serum glucose measurement (m ass/volume)on 07-22-2024 Glucose [Mass/Vol] 73 mg/dL Normal 70-99 [facility] Comment on above: Performed By: #### L 100.0100, L500.4050 #### [facility] [address] [place], [address] Serum or plasma alanine coffey otransferase (ALT) measurementon 07-22-2024 ALT [Catalytic activity/Vol] 13 U/L Normal <=34 [facility] Comment on above: Performed By: #### L 100.0100, L500.4050 #### [facility] [address] [place], [address] Serum or plasma albumin dave urement (mass/volume)on 07-22-2024 Albumin [Mass/Vol] 3.7 g/dL Normal 3.4-4.8 [facility] Comment on above: Performed By: #### L 100.0100, L500.4050 #### [facility] [address] [place], [address] Serum or plasma albumin/glob ulin mass ratioon 07-22-2024 Albumin/Globulin [Mass ratio] 1.3 {ratio} Normal 0.9-2.4 [facility] Comment on above: Performed By: #### L 100.0100, L500.4050 #### [facility] [address] [place], [address] Serum or plasma alkaline tim sphatase measurementOrdered By: Alexandra Baker on 07-22-2024 ALP [Catalytic activity/Vol] 98 U/L 35-104 [facility] Serum or plasma calcium dave urement (mass/volume)on 07-22-2024 Calcium [Mass/Vol] 9.6 mg/dL Normal 7.6-11.0 [facility] Comment on above: Performed By: #### L 100.0100, L500.4050 #### [facility] [address] [place], [address] Serum or plasma urea nitroge n measurement (mass/volume)on 07-22-2024 Urea nitrogen [Mass/Vol] 29 mg/dL High 4-19 [facility] Comment on above: Performed By: #### L 100.0100, L500.4050 #### [facility] [address] [place], [address] Sodium levelon 07-22-2024 Sodium [Moles/Vol] 140 mmol/L Normal 133-145 [facility] Comment on above: Performed By: #### L 100.0100, L500.4050 #### [facility] [address] [place], [address] Total proteinon 07-22-2024 Protein [Mass/Vol] 6.7 g/dL 5.9-8.4 [facility] White blood cell (WBC) count on 07-22-2024 WBC (Bld) [#/Vol] 6.6 10*3/uL Normal 4.4-11.0 [facility] Comment on above: Performed By: #### L 100.0100, L500.4050 #### [facility] [address] [place], [address] CNOVon 07-17-2024 CNOV Office Visit (FAMMAS ) MAGGIEKATRINA Sanket ([id number]) 1955 F Date Time Provider Department 07/17/24 3:30 PM DENNIS MARCIAL During your visit today, we recorded the following information about you: Temperature Pulse Respiration Blood pressure 97.6 degrees 66/minute 18/minute 110/84 Weight Height 88 kg 1.676 m Elvira Mcintosh LPN 07/17/2024 4:51 PM Signed Patient is in office with complaint of sinus congestion and productive cough. Patient states that symptoms started about 3 days ago. Patient is experiencing cold chills and sweats as well. No refills needed Elvira Mcintosh LPN July 17, 2024 3:26 PM Dennis Marcial MD 07/17/2024 4:51 PM Signed Subjective Katrina Sanket Maggie is a 68 year old female. Patient is in office with complaint of sinus congestion and productive cough. Patient states that symptoms started about 3 days ago. Patient is experiencing cold chills and sweats as well. Review of Systems Constitutional: Negative. HENT: Negative. Eyes: Negative. Respiratory: Negative. Cardiovascular: Negative. Gastrointestinal: Negative. Endocrine: Negative. Genitourinary: Negative. Musculoskeletal: Negative. Skin: Negative. Allergic/Immunologic: Negative. Neurological: Negative. Hematological: Negative. Psychiatric/Behavioral : Negative. PAST SURGICAL HISTORY Procedure Laterality Date BACK SURGERY HX x 3 COLONOSCOPY FLX DX W/COLLJ SPEC WHEN PFRMD 02/04/2021 COLSC FLX W/RMVL OF TUMOR POLYP LESION SNARE TQ 08/07/2008 EGD TRANSORAL BIOPSY SINGLE/MULTIPLE 06/16/2010 EGD W/O BRSH SPEC VARICIES INJ 11/17/2021 EXC NEUROMA HAND/FOOT XCP DIGITAL NERVE HERNIA REPAIR HX NEUROPLASTY AND/TRANSPOS MEDIAN NRV CARPAL TUNNE Bilateral Carpal tunnel decomp PAST SURGICAL HISTORY OF 03/13/2020 MEDIASTINOSCOPY W/LYMPH NODE BIOPSY REPR DURAL/CSF LEAK W LAMINECTOMY RMVL LUNG OTHER THAN PNEUMONECTOMY 1 LOBE LOBECT Right 06/22/2020 Thoracotomy, right middle lobectomy, mediastinal lymph node dissection for lung cancer SIGMOIDOSCOPY FLX DX W/COLLJ SPEC BR/WA IF PFRMD 1998 Sigmoidoscopy TONSILLECTOMY PRIMARY/SECONDARY Tonsillectomy 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 Microscopic colitis Other malaise and fatigue Paroxysmal atrial fibrillation (HCC) Shortness of breath Unspecified constipation FAMILY HISTORY Problem Relation Age of Onset other (throat cancer) Mother Heart Father Skin Cancer Brother COPD Brother Skin Cancer Brother Diabetes Son Colon Cancer No Family History Social History Tobacco Use Smoking status: Former Current packs/day: 0.00 Average packs/day: 1 pack/day for 30.0 years (30.0 ttl pk-yrs) Types: Cigarettes Start date: 03/24/1970 Quit date: 03/24/2000 Years since quittin.3 Smokeless tobacco: Never Vaping Use Vaping status: Never Used Substance Use Topics Alcohol use: No Drug use: Never ALLERGIES No Known Allergies MEDICATIONS: traMADol (ULTRAM) 50 mg tablet Take 1 tablet by mouth every 6 hours as needed for pain for up to 90 days. sertraline (ZOLOFT) 100 mg tablet Take 1 tablet by mouth once daily. rOPINIRole (REQUIP) 1 mg tablet Take 1 tablet by mouth daily at bedtime. MYRBETRIQ 50 mg Tb24 Take 50 mg by mouth once daily. alendronate (FOSAMAX) 70 mg tablet Take 1 tablet by mouth one time a week. In am with glass of water, on a empty stomach, nothing by mouth or lying down for 30 minutes metoprolol tartrate, short acting, (LOPRESSOR) 25 mg tablet Take 0.5 tablets by mouth two times a day. pantoprazole DR (PROTONIX) 40 mg tablet Take 1 tablet by mouth once daily. umeclidinium-vilantero l (ANORO ELLIPTA) 62.5-25 mcg/actuation inhaler Inhale 1 Inhalation as instructed once daily. amitriptyline (ELAVIL) 50 mg tablet Take 1 tablet by mouth daily at bedtime. XARELTO 20 mg tablet Take 1 tablet by mouth once daily. simvastatin (ZOCOR) 20 mg tablet Take 1 tablet by mouth daily at bedtime. OXYGEN, HOME THERAPY, Inhale 3 L/min as instructed as directed. hydrOXYchloroQUINE (PLAQUENIL) 200 mg tablet Take 200 mg by mouth twice daily. albuterol HFA (PROVENTIL HFA, VENTOLIN HFA) 90 mcg/actuation inhaler Inhale 2 Puffs as instructed every 4 hours as needed for wheezing/shortness of breath. Lactobacillus acidophilus (PROBIOTIC ORAL) Take 1 tablet by mouth once daily. cholecalciferol, vitamin D3, (VITAMI (more content not included)... [facility] JOSEFAOVon 07-10-2024 [facility] Office Visit (UCWSTR ) MAGGIEKATRINA ([id number]) 1955 F Date Time Provider Department 07/10/24 4:45 PM KAEL NUNEZ During your visit today, we recorded the following information about you: Kael Nunez APRN.AMAIRANI 07/10/2024 5:40 PM Signed Patient triaged at [facility]. Here today with new bilat lower leg swelling. Denies cp/sob/leg pain. I will refer to pcp, will make appointment jonathan. Urgent f/u for worsening or severe s/s. Allergies As of Date: 07/10/2024 (No Known Allergies) Date Reviewed: 06/28/2024 Reviewed by: Ronald Garrido APRN.AMAIRANI - Fully Assessed Primary Visit Diagnosis:Leg swelling [M79.89] Prescriptions as of 07/10/2024 - traMADol (ULTRAM) 50 mg tablet Take 1 tablet by mouth every 6 hours as needed for pain for up to 90 days. - sertraline (ZOLOFT) 100 mg tablet Take 1 tablet by mouth once daily. - rOPINIRole (REQUIP) 1 mg tablet Take 1 tablet by mouth daily at bedtime. - MYRBETRIQ 50 mg Tb24 Take 50 mg by mouth once daily. - alendronate (FOSAMAX) 70 mg tablet Take 1 tablet by mouth one time a week. In am with glass of water, on a empty stomach, nothing by mouth or lying down for 30 minutes - metoprolol tartrate, short acting, (LOPRESSOR) 25 mg tablet Take 0.5 tablets by mouth two times a day. - pantoprazole DR (PROTONIX) 40 mg tablet Take 1 tablet by mouth once daily. - umeclidinium-vilantero l (ANORO ELLIPTA) 62.5-25 mcg/actuation inhaler Inhale 1 Inhalation as instructed once daily. - amitriptyline (ELAVIL) 50 mg tablet Take 1 tablet by mouth daily at bedtime. - XARELTO 20 mg tablet Take 1 tablet by mouth once daily. - simvastatin (ZOCOR) 20 mg tablet Take 1 tablet by mouth daily at bedtime. - OXYGEN, HOME THERAPY, Inhale 3 L/min as instructed as directed. - hydrOXYchloroQUINE (PLAQUENIL) 200 mg tablet Take 200 mg by mouth twice daily. - albuterol HFA (PROVENTIL HFA, VENTOLIN HFA) 90 mcg/actuation inhaler Inhale 2 Puffs as instructed every 4 hours as needed for wheezing/shortness of breath. - Lactobacillus acidophilus (PROBIOTIC ORAL) Take 1 tablet by mouth once daily. - cholecalciferol, vitamin D3, (VITAMIN D3 ORAL) Take 1 tablet by mouth once daily. Problem List As Of Date 07/10/2024 Noted Resolved Dysphagia [R13.10] CHEST PAIN NOS [R07.9] SHORTNESS OF BREATH [R06.02] MALAISE AND FATIGUE NEC [R53.81, R53.83] Tobacco use disorder [F17.200] 09/12/2022 Recurrent major depressive disorder, in remissi* LUMB/LUMBOSAC DISC DEGEN [M51.379] ESOPHAGEAL REFLUX [K21.9] LUMBAGO [M54.50] BENIGN NEOPLASM LG BOWEL [D12.6] 08/07/2008 CONSTIPATION NOS [K59.00] 08/07/2008 Diarrhea [R19.7] 04/06/2009 02/04/2021 Microscopic colitis [K52.839] Acute gastritis without mention of hemorrhage [*06/16/2010 Lung nodule [R91.1] 03/13/2020 Lymphadenopathy, mediastinal [R59.0] 03/13/2020 Former smoker [Z87.891] 03/13/2020 Primary cancer of right lower lobe of lung (HCC*03/24/2020 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 Hypomagnesemia [E83.42] 05/11/2020 Paroxysmal atrial fibrillation (HCC) [I48.0] 06/22/2020 Pain, postoperative, acute [G89.18] 06/22/2020 Discharge planning issues [Z75.8] 06/22/2020 NSCLC of right lung (HCC) [C34.91] 06/22/2020 SERENA (acute kidney injury) (HCC) [N17.9] 06/23/2020 Infected tooth [K04.7] 06/23/2020 Malignant neoplasm of unspecified part of unspe*08/21/2020 09/10/2021 Centrilobular emphysema (HCC) [J43.2] 09/10/2021 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] 09/10/2021 Iron deficiency anemia secondary to inadequate *10/12/2021 Stage 3b chronic kidney disease (HCC) [N18.32] Malignant neoplasm of lung (HCC) [C34.90] 05/25/2020 09/12/2022 Osteoarthrosis [M19.90] 03/08/2017 Osteoporosis [M81.0] 03/08/2017 Irritable bowel syndrome [K58.9] 07/08/2022 Insomnia [G47.00] 05/25/2020 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] 04/16/2019 Hypertension, essential [I10] 02/02/2022 Depression [F32.A] 03/08/2017 Degeneration of intervertebral disc [FYK0981] 07/08/2022 Contusion of knee and lower leg [S80.00XA, S80.*07/08/2022 Atherosclerosis of aorta (HCC) [I70.0] 07/08/2022 Restless leg syndrome [G25.81] 07/08/2022 Steatosis of liver [K76.0] 07/08/2022 Pancytopenia (HCC) [D61.818] 07/08/2022 Pure hypercholesterolemia, unspecified [E78.00] 03/30/2021 Radiation pneumonitis (HCC) [J70.0] 07/08/2022 Rib pain [R07.81] 07/08/2022 Sinusitis [J32.9] 07/08/2022 Stage III squamous cell carcinoma of lung (HCC)*07/08/2022 Transient hypotension [I95.9] 07/08/2022 Vitamin D deficiency [E55.9] 03/08/2017 ACI (adrenal cortical insufficiency) (HCC) [E27*08/29/2022 Polyarthritis [M13.0] 08/29/2022 detention current use of anticoagulant therapy *05/14/2023 Preop examination [Z01.818] 06/19/2023 C. difficile diarrhea [A04.72] 06/19/2023 Elevated fecal calprotectin [R19.5] 06/19/2023 Iron deficiency anemia [D50.9] 06/19/2023 (more content not included)... Normal [facility] XR CHEST 2V FRONTAL/LATon XR CHEST 2V FRONTAL/LAT * * *Final Report* * * DATE OF EXAM: Jul 05 2024 11:05AM [id number] - XR CHEST 2V FRONTAL/LAT / PROCEDURE REASON: Bacterial pneumonia * * * * Physician Interpretation * * * * EXAMINATION: CHEST RADIOGRAPH (2 VIEW FRONTAL and LATERAL) CLINICAL HISTORY: Bacterial pneumonia . Lung carcinoma MQ: XC2_6 EXAM DATE/TIME: 07/05/2024 11:05 AM COMPARISON: 06/20/2024 CT 06/20/2024 RESULT: Lines, tubes, and devices: None. Lungs and pleura: Stable posttreatment appearance of the right lung. Right suprahilar traction bronchiectasis and consolidation. No new consolidation. No lung mass. No pleural effusion. No pneumothorax. Partial eventration of the right hemidiaphragm Cardiomediastinal silhouette: Normal cardiomediastinal silhouette. Bones and soft tissues: Multilevel degenerative change and scoliosis. IMPRESSION: Stable chest. No developing abnormality Executive Vp: [facility] Transcribe Date/Time: Jul 05 2024 4:24P Dictated by : ZOE PISANO MD This examination was interpreted and the report reviewed and electronically signed by: ZOE PISANO MD on Jul 05 2024 4:28PM EST [id number] Normal [facility] XR Chest PA and Lateralon IMPRESSION: Stable chest. No developing abnormality Executive Vp: [facility] Transcribe Date/Time: Jul 05 2024 4:24P Dictated by : ZOE PISANO MD This examination was interpreted and the report reviewed and electronically signed by: ZOE PISANO MD on Jul 05 2024 4:28PM EST DIVISION OF RADIOLOGY * * *Final Report* * * DATE OF EXAM: Jul 05 2024 11:05AM [id number] - XR CHEST 2V FRONTAL/LAT / PROCEDURE REASON: Bacterial pneumonia * * * * Physician Interpretation * * * * EXAMINATION: CHEST RADIOGRAPH (2 VIEW FRONTAL & LATERAL) CLINICAL HISTORY: Bacterial pneumonia . Lung carcinoma MQ: XC2_6 EXAM DATE/TIME: 07/05/2024 11:05 AM COMPARISON: 06/20/2024 CT 06/20/2024 RESULT: Lines, tubes, and devices: None. Lungs and pleura: Stable posttreatment appearance of the right lung. Right suprahilar traction bronchiectasis and consolidation. No new consolidation. No lung mass. No pleural effusion. No pneumothorax. Partial eventration of the right hemidiaphragm Cardiomediastinal silhouette: Normal cardiomediastinal silhouette. Bones and soft tissues: Multilevel degenerative change and scoliosis. DIVISION OF RADIOLOGY Provider, Kan B[place] [facility] - 07/05/2024 * * *Final Report* * * DATE OF EXAM: Jul 05 2024 11:05AM [id number] - XR CHEST 2V FRONTAL/LAT / PROCEDURE REASON: Bacterial pneumonia * * * * Physician Interpretation * * * * EXAMINATION: CHEST RADIOGRAPH (2 VIEW FRONTAL & LATERAL) CLINICAL HISTORY: Bacterial pneumonia . Lung carcinoma MQ: XC2_6 EXAM DATE/TIME: 07/05/2024 11:05 AM COMPARISON: 06/20/2024 CT 06/20/2024 RESULT: Lines, tubes, and devices: None. Lungs and pleura: Stable posttreatment appearance of the right lung. Right suprahilar traction bronchiectasis and consolidation. No new consolidation. No lung mass. No pleural effusion. No pneumothorax. Partial eventration of the right hemidiaphragm Cardiomediastinal silhouette: Normal cardiomediastinal silhouette. Bones and soft tissues: Multilevel degenerative change and scoliosis. IMPRESSION IMPRESSION: Stable chest. No developing abnormality Executive Vp: [facility] Transcribe Date/Time: Jul 05 2024 4:24P Dictated by : ZOE PISANO MD This examination was interpreted and the report reviewed and electronically signed by: ZOE PISANO MD on Jul 05 2024 4:28PM EST [facility] Radiology Study observation (narrative) [facility] XR Chest PA and LateralOrder ed By: [facility] Provider on 07-05-2024 [facility] CNOVon 06-28-2024 CNOV Office Visit (PULMWS ) KATRINA SERRANO ([id number]) 1955 F Date Time Provider Department 06/28/24 10:30 AM RONALD GARRIDO PULMWS During your visit today, we recorded the following information about you: Pulse Respiration Blood pressure Weight 68/minute 18/minute 106/72 90.3 kg Ronald Garrido APRN.[employer] 06/28/2024 5:20 PM Signed Pulmonary Medicine Patients name: Katrina Henson PCP: Dennis Marcial MD CC: follow-up HPI: Katrina Serrano is a 68 year old female former [id number] smoker, quitting in 1999 with PMH significant for COPD, nocturnal oxygen need, GERD, AF, CKD, history of lung cancer and radiation fibrosis. 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 Was on Durvalumab for 4 doses but discontinued due to severe colitis. 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 Current inhaled therapy consists of Anoro Ellipta with as needed albuterol. She presents today for follow-up. CASTILLO 12/2023. Was treated for acute bronchitis with persistent productive cough. Overall has felt worsening exertional dyspnea since her last visit which interferes with her daily tasks. Also has hx of Afib and sees [facility]. Does not recall when she was last seen or when her last echo was. She was seen by [facility] 06/20 with head cold symptoms x5 days. Worsened with cough and fever. FLU/COVID/RSV negative. Chest xray with patchy airspace opacities in the left lung. Subsequently had chest CT scheduled that day which did suggest Pneumonia. Treated with Augmentin and doxycycline. Had follow-up with her PCP on 06/26 and given additional course of Doxycycline with plan for repeat chest xray later next week. Today, patient reports fatigue. Occasional cough with white sputum (was green at the start). No wheezing. No dyspnea at rest. No current fevers or chills. Denies nocturnal symptoms. Albuterol use is rare. DME: Sharron 3L nocturnal O2 Modified [employer] Solomon Dyspnea Scale (MMRC) I stop for breath after walking about 100 yards or after a few minutes on level ground 3 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 If you have any questions, ask your nurse or doctor. CONTINUE taking these medications albuterol HFA 90 mcg/actuation inhaler Commonly known as: PROVENTIL HFA, VENTOLIN HFA Inhale 2 Puffs as instructed every 4 hours as needed for wheezing/shortness of breath. alendronate 70 mg tablet Commonly known as: FOSAMAX Take 1 tablet by mouth one time a week. In am with glass of water, on a empty stomach, nothing by mouth or lying down for 30 minutes amitriptyline 50 mg tablet Commonly known as: ELAVIL Take 1 tablet by mouth daily at bedtime. ANORO ELLIPTA 62.5-25 mcg/actuation inhaler Generic drug: umeclidinium-vilantero l Inhale 1 Inhalation as instructed once daily. hydrOXYchloroQUINE 200 mg tablet Commonly known as: PLAQUENIL IRON ORAL metoprolol tartrate (short acting) 25 mg tablet Commonly known as: LOPRESSOR Take 0.5 tablets by mouth two times a day. MYRBETRIQ 50 mg Tb24 Generic drug: mirabegron OS-TESSY 500 + D3 ORAL OXYGEN (HOME THERAPY) pantoprazole DR 40 mg tablet Commonly known as: PROTONIX Take 1 tablet by mouth once daily. PROBIOTIC ORAL rOPINIRole 1 mg tablet Commonly known as: REQUIP Take 1 tablet by mouth daily at bedtime. sertraline 100 mg tablet Commonly known as: ZOLOFT Take 1 tablet by mouth once daily. simvastatin 20 mg tablet Commonly known as: ZOCOR Take 1 tablet by mouth daily at bedtime. traMADol 50 mg tablet Commonly known as: ULTRAM Take 1 tablet by mouth every 6 hours as needed for pain for up to 90 days. VITAMIN D3 ORAL XARELTO 20 mg tablet Generic drug: rivaroxaban DATA: I personally reviewed and analyzed all labs, radiographs and available pulmonary function testing PFT: 04/2021 Spirometry shows no obstruction.The reduced FVC suggests restriction. Lung volumes indicate re (more content not included)... Normal [facility] CNOVSPon 06-27-2024 CNOVSP Visit (SP) Office ([place]) KATRINA SERRANO ([id number]) 1955 F Date Time Provider Department 06/27/24 10:00 AM ROYER FORD During your visit today, we recorded the following information about you: Temperature Pulse Blood pressure Weight 97.8 degrees 77/minute 105/71 90.3 kg Royer Ford 06/27/2024 12:15 PM Signed Katrina Serrano 1955 06/27/2024 HISTORY OF PRESENT ILLNESS: Katrina Serrano is a 67 year old female here for follow up. 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 She had a PET CT scan for evaluation of lung nodule on 02/04/2020. PET scan showed increased activity in the lateral right lower lobe lesion SUV 2.9. There was also increased activity in the precarinal level, mediastinum right thoracic prehilum area. SUV 3.2. No other evidence of metastatic disease. She saw Dr. Kira Toscano on 03/12/2020 for mediastinoscopy on 03/13/20 and possible robotic right lower lobe resection Her pathology unfortunately revealed metastatic adenocarcinoma at level 2 mediastinal lymph node. Treatment history: Neoadjuvant 4500 cGy in 25 fractions treating to the 00JXN76.4% isodose line with 6 MV and 7 tarango. IGRT with daily CBCTs. Concurrent chemotherapy with Cisplatin/Etoposide x 2 cycles ( 04/06/20 to 05/12/20 ) SURGICAL HX: 03/13/2020: Mediastinoscopy positive LN, PDL positive 100% 06/22/2020: Right thoracotomy, right middle lobectomy with mediastinal and hilar lymph node dissection, and vascularized pedicle tissue buttress of bronchial stump. [id number] Previous treatment: Durvalumab maintenance x 4 doses ( 09/03/20 - 11/05/20); discontinued because of colitis and diarrhea. Took months to resolve. Doing well. Reviewed anemia, she has renal insufficiency. Reviewed surveillance scan. Interval Hx: Ms. Serrano presents today for follow up and CT review. Unfortunately, CT read pending. Reviewed with Dr. Steward, appears stable but will await final read. Pt notes URI over the last week or so. Symptoms are improving. No fevers, chills. Productive cough, improving. Started on doxy last night. No constipation or diarrhea. Appetite is good. No unintentional weight loss. Denies SOB, CP, palpitations. No bleeding or bruising. CLINICAL IMPRESSION: History of adenocarcinoma lung neoadjuvant chemoRT, resection, then durvalumab x 2, DIMITRIS RECOMMENDATION/PLAN: 1. Follow expectantly, re scan in 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 Microscopic colitis Other malaise and fatigue Paroxysmal atrial fibrillation (HCC) Shortness of breath Unspecified constipation PAST SURGICAL HISTORY Procedure Laterality Date BACK SURGERY HX x 3 COLONOSCOPY FLX DX W/COLLJ SPEC WHEN PFRMD 02/04/2021 COLSC FLX W/RMVL OF TUMOR POLYP LESION SNARE TQ 08/07/2008 EGD TRANSORAL BIOPSY SINGLE/MULTIPLE 06/16/2010 EGD W/O BRSH SPEC VARICIES INJ 11/17/2021 EXC NEUROMA HAND/FOOT XCP DIGITAL NERVE HERNIA REPAIR HX NEUROPLASTY AND/TRANSPOS MEDIAN NRV CARPAL TUNNE Bilateral Carpal tunnel decomp PAST SURGICAL HISTORY OF 03/13/2020 MEDIASTINOSCOPY W/LYMPH NODE BIOPSY REPR DURAL/CSF LEAK W LAMINECTOMY RMVL LUNG OTHER THAN PNEUMONECTOMY 1 LOBE LOBECT Right 06/22/2020 Thoracotomy, right middle lobectomy, mediastinal lymph node dissection for lung cancer SIGMOIDOSCOPY FLX DX W/COLLJ SPEC BR/WA IF PFRMD 1998 Sigmoidoscopy TONSILLECTOMY PRIMARY/SECONDARY Tonsillectomy FAMILY HISTORY Problem Relation Age of Onset other (throat cancer) Mother Heart Father Skin Cancer Brother COPD Brother Skin Cancer Brother Diabetes Son Colon Cancer No Family History Social History Tobacco Use Smoking status: Former Current packs/day: 0.00 Average packs/day: 1 pack/day for 30.0 years (30.0 ttl pk-yrs) Types: Cigarettes Start date: 03/24/1970 Quit date: 03/24/2000 Years since quittin.2 Smokeless tobacco: Never Vaping Use Vaping status: Never Used Substance Use Topics Alcohol use: No Drug use: Never ALLERGIES: ALLERGIES No (more content not included)... Normal [facility] CNOVon 06-26-2024 CNOV Office Visit ([place] ) KATRINA SERRANO ([id number]) 1955 F Date Time Provider Department 06/26/24 4:20 PM DENNIS MARCIAL During your visit today, we recorded the following information about you: Temperature Pulse Respiration Blood pressure 96.9 degrees 70/minute 18/minute 122/82 Weight Height 89.4 kg 1.676 m Elvira Mcintosh LPN 06/29/2024 2:43 PM Signed Patient is in office for Urgent Care follow up for pneumonia. Patient was evaluated and treated at Urgent Care on 06-21-2024. ASSESSMENT/PLAN: 1. Acute cough - ICD9: 786.2, ICD10: R05.1 (primary diagnosis) 2. Centrilobular emphysema (HCC) - ICD9: 492.8, ICD10: J43.2 3. Community acquired pneumonia of left lung, unspecified part of lung - ICD9: 486, ICD10: J18.9 - XR CHEST 2V FRONTAL/LAT IMPRESSION: Patchy airspace opacities of the left lung better appreciated on same-day CT and compatible with an infectious/inflammator y process. Stable posttreatment volume loss of the right lung. - IPRATROPIUM 0.5 MG-ALBUTEROL 3 MG (2.5 MG BASE)/3 ML NEBULIZATION SOLN - INFLUENZA AANDB MOLECULAR (POC) - negative. - COVID AND INFLUENZA A/B AND RSV PCR, ROUTINE - probably beyond the therapeutic window for antiviral. - suspect viral URI, differential includes COVID-19. Dual antibiotic therapy with doxycycline and augmentin for comorbidities. Patient states she continues to feel tired. No refills needed Elvira Mcintosh LPN June 26, 2024 4:03 PM Dennis Marcial MD 06/29/2024 2:43 PM Signed Subjective Katrina Serrano is a 68 year old female. Patient is in office for Urgent Care follow up for pneumonia. Patient was evaluated and treated at Urgent Care on 06-21-2024. ASSESSMENT/PLAN: 1. Acute cough - ICD9: 786.2, ICD10: R05.1 (primary diagnosis) 2. Centrilobular emphysema (HCC) - ICD9: 492.8, ICD10: J43.2 3. Community acquired pneumonia of left lung, unspecified part of lung - ICD9: 486, ICD10: J18.9 - XR CHEST 2V FRONTAL/LAT IMPRESSION: Patchy airspace opacities of the left lung better appreciated on same-day CT and compatible with an infectious/inflammator y process. Stable posttreatment volume loss of the right lung. - IPRATROPIUM 0.5 MG-ALBUTEROL 3 MG (2.5 MG BASE)/3 ML NEBULIZATION SOLN - INFLUENZA AANDB MOLECULAR (POC) - negative. - COVID AND INFLUENZA A/B AND RSV PCR, ROUTINE - probably beyond the therapeutic window for antiviral. - suspect viral URI, differential includes COVID-19. Dual antibiotic therapy with doxycycline and augmentin for comorbidities. Patient states she continues to feel tired. Review of Systems Constitutional: Negative. HENT: Negative. Eyes: Negative. Respiratory: Negative. Cardiovascular: Negative. Gastrointestinal: Negative. Endocrine: Negative. Genitourinary: Negative. Musculoskeletal: Negative. Skin: Negative. Allergic/Immunologic: Negative. Neurological: Negative. Hematological: Negative. Psychiatric/Behavioral : Negative. PAST SURGICAL HISTORY Procedure Laterality Date BACK SURGERY HX x 3 COLONOSCOPY FLX DX W/COLLJ SPEC WHEN PFRMD 02/04/2021 COLSC FLX W/RMVL OF TUMOR POLYP LESION SNARE TQ 08/07/2008 EGD TRANSORAL BIOPSY SINGLE/MULTIPLE 06/16/2010 EGD W/O BRSH SPEC VARICIES INJ 11/17/2021 EXC NEUROMA HAND/FOOT XCP DIGITAL NERVE HERNIA REPAIR HX NEUROPLASTY AND/TRANSPOS MEDIAN NRV CARPAL TUNNE Bilateral Carpal tunnel decomp PAST SURGICAL HISTORY OF 03/13/2020 MEDIASTINOSCOPY W/LYMPH NODE BIOPSY REPR DURAL/CSF LEAK W LAMINECTOMY RMVL LUNG OTHER THAN PNEUMONECTOMY 1 LOBE LOBECT Right 06/22/2020 Thoracotomy, right middle lobectomy, mediastinal lymph node dissection for lung cancer SIGMOIDOSCOPY FLX DX W/COLLJ SPEC BR/WA IF PFRMD 1998 Sigmoidoscopy TONSILLECTOMY PRIMARY/SECONDARY Tonsillectomy 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 Normal [facility] CBC W Auto Differential pane l (Bld)on 06-20-2024 Basophils (Bld) [#/Vol] 10*3/uL Normal <0.11 [facility] Comment on above: Order Comment: Speci men Type: BLOOD SPECIMENOrdering Facility: [facility] Address: [address] [place] [address] Performed By: #### 5 7021-8 ####[facility] [id number] [place] [address] [place] Basophils/100 WBC (Bld) 0.3 % Normal [facility] Comment on above: Order Comment: Speci men Type: BLOOD SPECIMENOrdering Facility: [facility] Address: [address] [place] [address] Performed By: #### 5 7021-8 ####[facility] [id number] [place] [address] [place] Differential cell count method Nom (Bld) Auto Normal [facility] Comment on above: Order Comment: Speci men Type: BLOOD SPECIMENOrdering Facility: [facility] Address: [address] [place] [address] Performed By: #### 5 7021-8 ####[facility] [id number] [place] [address] [place] Eosinophils (Bld) [#/Vol] 0.23 10*3/uL Normal <0.46 [facility] Comment on above: Order Comment: Speci men Type: BLOOD SPECIMENOrdering Facility: [facility] Address: [address] [place] [address] Performed By: #### 5 7021-8 ####[facility] MILLWNCLIA [id number] [place] [address] [place] Eosinophils/100 WBC (Bld) 3.6 % Normal [facility] Comment on above: Order Comment: Speci men Type: BLOOD SPECIMENOrdering Facility: [facility] Address: [address] [place] [address] Performed By: #### 5 7021-8 ####[facility] ERLASHAUNLIA [id number] [place] [address] [place] Erythrocyte distribution width (RBC) [Ratio] 13.3 % Normal 11.5-15.0 [facility] Comment on above: Order Comment: Speci men Type: BLOOD SPECIMENOrdering Facility: [facility] Address: [address] [place] [address] Performed By: #### 5 7021-8 ####[facility] ERWILLIAMSA [id number] [place] [address] [place] Hematocrit (Bld) [Volume fraction] 37.9 % Normal 36.0-46.0 [facility] Comment on above: Order Comment: Speci men Type: BLOOD SPECIMENOrdering Facility: [facility] Address: [address] [place] [address] Performed By: #### 5 7021-8 ####[facility] ERLASHAUNLIA [id number] [place] [address] [place] Hemoglobin (Bld) [Mass/Vol] 12.1 g/dL Normal 11.5-15.5 [facility] Comment on above: Order Comment: Speci men Type: BLOOD SPECIMENOrdering Facility: [facility] Address: [address] [place], [place] [address] Performed By: #### 5 7021-8 ####[facility] ERNCLIA [id number] [place] [address] [place] Immature granulocytes (Bld) [#/Vol] 0.05 10*3/uL Normal <0.10 [facility] Comment on above: Order Comment: Speci men Type: BLOOD SPECIMENOrdering Facility: [facility] Address: [address] [place] [address] Performed By: #### 5 7021-8 ####[facility] [id number] [place] [address] [place] Immature granulocytes/100 WBC (Bld) 0.8 % Normal [facility] Comment on above: Order Comment: Speci men Type: BLOOD SPECIMENOrdering Facility: [facility] Address: [address] [place] [address] Performed By: #### 5 7021-8 ####[facility] ERNCCENTR[facility] [id number] [place] [address] [place] Lymphocytes (Bld) [#/Vol] 1.35 10*3/uL Normal 1.00-4.00 [facility] Comment on above: Order Comment: Speci men Type: BLOOD SPECIMENOrdering Facility: [facility] Address: [address] [place] [address] Performed By: #### 5 7021-8 ####[facility] [id number] [place] [address] [place] Lymphocytes/100 WBC (Bld) 20.9 % Normal [facility] Comment on above: Order Comment: Speci men Type: BLOOD SPECIMENOrdering Facility: [facility] Address: [address] [place] [address] Performed By: #### 5 7021-8 ####[facility] [id number] [place] [address] [place] MCH (RBC) [Entitic mass] 30.3 pg Normal 26.0-34.0 [facility] Comment on above: Order Comment: Speci men Type: BLOOD SPECIMENOrdering Facility: [facility] Address: [address] [place] [address] Performed By: #### 5 7021-8 ####[facility] HECTORWILLIAMSAmara [id number] [place] [address] [place] MCHC (RBC) [Mass/Vol] 31.9 g/dL Normal 30.5-36.0 [facility] Comment on above: Order Comment: Speci men Type: BLOOD SPECIMENOrdering Facility: [facility] Address: [address] [place] [address] Performed By: #### 5 7021-8 ####[facility] ERANGÉLICA [id number] [place] [address] [place] MCV (RBC) [Entitic vol] 95.0 fL Normal 80.0-100.0 [facility] Comment on above: Order Comment: Speci men Type: BLOOD SPECIMENOrdering Facility: [facility] Address: [address] [place] [address] Performed By: #### 5 7021-8 ####[facility] ERANGÉLICA [id number] [place] [address] [place] Monocytes (Bld) [#/Vol] 0.46 10*3/uL Normal <0.87 [facility] Comment on above: Order Comment: Speci men Type: BLOOD SPECIMENOrdering Facility: [facility] Address: [address] [place] [address] Performed By: #### 5 7021-8 ####[facility] ERANGÉLICA [id number] [place] [address] [place] Monocytes/100 WBC (Bld) 7.1 % Normal [facility] Comment on above: Order Comment: Speci men Type: BLOOD SPECIMENOrdering Facility: [facility] Address: [address] [place] [address] Performed By: #### 5 7021-8 ####[facility] MILLWNCLIA [id number] [place] [address] [place] Neutrophils (Bld) [#/Vol] 4.35 10*3/uL Normal 1.45-7.50 [facility] Comment on above: Order Comment: Speci men Type: BLOOD SPECIMENOrdering Facility: [facility] Address: [address] [place] [address] Performed By: #### 5 7021-8 ####[facility] HOSPITALLIA [id number] [place] [address] [place] Neutrophils/100 WBC (Bld) 67.3 % Normal [facility] Comment on above: Order Comment: Speci men Type: BLOOD SPECIMENOrdering Facility: [facility] Address: [address] [place] [address] Performed By: #### 5 7021-8 ####[facility] HOSPITALL[facility] [id number] [place] [address] [place] Nucleated RBC (Bld) [#/Vol] 10*3/uL Normal <0.01 [facility] Comment on above: Order Comment: Speci men Type: BLOOD SPECIMENOrdering Facility: [facility] Address: [address] [place] [address] Performed By: #### 5 7021-8 ####[facility] HOS[facility]IT[facility] [id number] [place] [address] [place] Nucleated RBC/100 WBC (Bld) [Ratio] 0.0 /100 WBC Normal [facility] Comment on above: Order Comment: Speci men Type: BLOOD SPECIMENOrdering Facility: [facility] Address: [address] [place] [address] Performed By: #### 5 7021-8 ####[facility] ERNCLIA [id number] [place] [address] [place] Platelet mean volume (Bld) [Entitic vol] 9.0 fL Normal 9.0-12.7 [facility] Comment on above: Order Comment: Speci men Type: BLOOD SPECIMENOrdering Facility: [facility] Address: [address] [place] [address] Performed By: #### 5 7021-8 ####[facility] ERNCJESSICAA [id number] [place] [address] [place] Platelets (Bld) [#/Vol] 201 10*3/uL Normal 150-400 [facility] Comment on above: Order Comment: Speci men Type: BLOOD SPECIMENOrdering Facility: [facility] Address: [address] [place] [address] Performed By: #### 5 7021-8 ####[facility]NCCENTR[facility] [id number] [place] [address] [place] RBC (Bld) [#/Vol] 3.99 10*6/uL Normal 3.90-5.20 [facility] Comment on above: Order Comment: Speci men Type: BLOOD SPECIMENOrdering Facility: [facility] Address: [address] [place] [address] Performed By: #### 5 7021-8 ####[facility] ERNCLIA [id number] [place] [address] [place] WBC (Bld) [#/Vol] 6.46 10*3/uL Normal 3.70-11.00 [facility] Comment on above: Order Comment: Speci men Type: BLOOD SPECIMENOrdering Facility: [facility] Address: [address] [place] [address] Performed By: #### 5 7021-8 ####[facility] ERNCLIA [id number] [place] [address] [place] CNOVon 06-20-2024 [facility] KATRINA SERRANO ([id number]) 1955 F Date Time Provider Department 06/20/24 11:45 AM MICHAEL BABIN [facility] During your visit today, we recorded the following information about you: Temperature Pulse Respiration Blood pressure 99.9 degrees 87/minute 24/minute 117/80 Weight 88 kg Michael Babin MD 06/20/2024 2:12 PM Signed Patient presents with: Cough: Chest congestion, tightness, burning in chest, Wheeze, SOB, fever, fatigue, body aches x 36 hours HPI: Feeling sick with head cold symptoms 5 days ago. She was feeling better 2 days ago. 1 1/2 days ago she developed cough and fever. Positive symptoms: Cough, Shortness of breath, Wheezing, Chest tightness, Fever, Body Aches, Fatigue, Improved: Sore throat, Sinus pressure, Nasal Congestion, Rhinorrhea, Post nasal drainage, Negative symptoms: Nausea, Vomiting, Diarrhea, OTC: Mucinex, Tylenol MEDICATIONS: Current Outpatient Medications Medication Sig traMADol (ULTRAM) 50 mg tablet Take 1 tablet by mouth every 6 hours as needed for pain for up to 90 days. sertraline (ZOLOFT) 100 mg tablet Take 1 tablet by mouth once daily. rOPINIRole (REQUIP) 1 mg tablet Take 1 tablet by mouth daily at bedtime. MYRBETRIQ 50 mg Tb24 Take 50 mg by mouth once daily. alendronate (FOSAMAX) 70 mg tablet Take 1 tablet by mouth one time a week. In am with glass of water, on a empty stomach, nothing by mouth or lying down for 30 minutes metoprolol tartrate, short acting, (LOPRESSOR) 25 mg tablet Take 0.5 tablets by mouth two times a day. pantoprazole DR (PROTONIX) 40 mg tablet Take 1 tablet by mouth once daily. umeclidinium-vilantero l (ANORO ELLIPTA) 62.5-25 mcg/actuation inhaler Inhale 1 Inhalation as instructed once daily. amitriptyline (ELAVIL) 50 mg tablet Take 1 tablet by mouth daily at bedtime. XARELTO 20 mg tablet Take 1 tablet by mouth once daily. simvastatin (ZOCOR) 20 mg tablet Take 1 tablet by mouth daily at bedtime. OXYGEN, HOME THERAPY, Inhale 3 L/min as instructed as directed. hydrOXYchloroQUINE (PLAQUENIL) 200 mg tablet Take 200 mg by mouth twice daily. albuterol HFA (PROVENTIL HFA, VENTOLIN HFA) 90 mcg/actuation inhaler Inhale 2 Puffs as instructed every 4 hours as needed for wheezing/shortness of breath. ferrous sulfate (IRON ORAL) Take 2 tablets by mouth once daily. Lactobacillus acidophilus (PROBIOTIC ORAL) Take 1 tablet by mouth once daily. cholecalciferol, vitamin D3, (VITAMIN D3 ORAL) Take 1 tablet by mouth once daily. calcium carbonate/vitamin D3 (OS-TESSY 500 + D3 ORAL) Take 1 tablet by mouth once daily. No current facility-administered medications for this visit. ALLERGIES: ALLERGIES No Known Allergies VITALS: BP 117/80 Pulse 87 Temp 37.7 ?C (99.9 ?F) Resp 24 Wt 88 kg (194 lb 0.1 oz) SpO2 94% BMI 31.31 kg/m? PHYSICAL EXAM: GEN: mildly ill appearing HEENT: PERRL, EOMI, conjunctiva clear Ears: TMs without erythema, bulge, or effusion Sinuses: non-tender frontal sinus, non-tender maxillary sinuses Throat: moist mucous membranes, mild erythema, no exudate Neck: supple, no thyromegaly, no lymphadenopathy HEART: regular rate, regular rhythm, no murmurs LUNGS: bilateral coarse wheezes and crackles, no increased WOB ASSESSMENT/PLAN: 1. Acute cough - ICD9: 786.2, ICD10: R05.1 (primary diagnosis) 2. Centrilobular emphysema (HCC) - ICD9: 492.8, ICD10: J43.2 3. Community acquired pneumonia of left lung, unspecified part of lung - ICD9: 486, ICD10: J18.9 - XR CHEST 2V FRONTAL/LAT IMPRESSION: Patchy airspace opacities of the left lung better appreciated on same-day CT and compatible with an infectious/inflammator y process. Stable posttreatment volume loss of the right lung. - IPRATROPIUM 0.5 MG-ALBUTEROL 3 MG (2.5 MG BASE)/3 ML NEBULIZATION SOLN - INFLUENZA AANDB MOLECULAR (POC) - negative. - COVID AND INFLUENZA A/B AND RSV PCR, ROUTINE - probably beyond the therapeutic window for antiviral. - suspect viral URI, differential includes COVID-19. Dual antibiotic therapy with doxycycline and augmentin for comorbidities. - Discussed supportive care treatment with rest, cold medicine, and analgesia. - Red flags to seek further treatment include chest pain, shortness of breath, and lethargy; in the ER if severe. Follow up with PCP next week. MD Dk Burger Brandi, LPN 06/20/2024 2:12 PM Signed 2.5 solution aerosol treatment given per provider's orders. Prior to treatment O2 sat is 94%. Treatment completed. O2 sat is 94%. Tolerated well. Nereida Cisneros LPN Referring Provider: SHANE STEWARD [[id number]] Allergies As of Date: 06/20/2024 (No Known Allergies) Date Reviewed: 06/20/2024 Reviewed by: Nereida Cisneros LPN - Fully Assessed Reason for Visit: Cough [28] Cmt: Chest congestion, tightness, burning in chest, Wheeze, SOB, fever, fatigue, body aches x 36 hours Pr (more content not included)... Normal [facility] CT CHEST WO IVCONon 06-20-[address] CHEST WO IVCON * * *Final Report* * * DATE OF EXAM: Jun 20 2024 10:09AM [id number] IV[facility] / PROCEDURE REASON: Malignant neoplasm of unspecified part of unspecified bronchus or lung (HCC) * * * * Physician Interpretation * * * * EXAMINATION: CHEST CT WITHOUT CONTRAST CLINICAL HISTORY: Neoplasm Technique: Spiral CT acquisition of the chest from the thoracic inlet to the upper abdomen without contrast. MQ: [id number] CT Radiation dose: Integrated Dose-length product (DLP) for this visit = 214 mGy*cm CT Dose Reduction Employed: Automated exposure control(AEC) and iterative recon Comparison: CT chest on 12/18/2023 RESULT: Limitations: None. Lines, tubes, and devices: None. Lung parenchyma and airways: Status post right middle lobectomy. Otherwise the central airways are patent. Postradiation changes including opacities and traction bronchiectasis/bronchi olectasis again noted in the medial right lung. A few parenchymal bands seen in the right lung, presumably representing atelectases/scarring. There are multiple new centrilobular nodules in the left upper lobe/lingula and left lower lobes. A triangular density visualized in the lingula, presumably representing atelectasis. Pleural space: No pleural effusions or pneumothorax. Lower neck, lymph nodes, and mediastinum: There is a focal calcification in the right thyroid lobe. No supraclavicular or axillary lymphadenopathy. Right paratracheal lymphadenopathy versus fluid collection is again demonstrated. No hilar lymphadenopathy on this noncontrast exam. Heart, pericardium, and thoracic vessels: Stable cardiac chambers, thoracic aorta and central pulmonary arteries. There is common origin of the brachiocephalic and left common carotid arteries, a normal anatomic variant. No pericardial effusion/thickening. Bones and soft tissues: The spine shows degenerative changes. T12 vertebral body compression deformities/wedge shaped deformity is noted however unchanged. No destructive bone lesion. Stable chest wall soft tissue. Upper abdomen: Limited study through the upper abdomen demonstrates no interval changes. Left adrenal nodule is again demonstrated. Localizer images: No additional findings. IMPRESSION: Status post right middle lobectomy. Postradiation changes/fibrosis/pneum onitis again noted in the medial right lung. Interval development of numerous centrilobular nodules in the left lung, presumably representing inflammatory/infectiou s process. Consider follow-up to document resolution. Stable right paratracheal lymphadenopathy versus fluid collection. [facility] Transcribe Date/Time: Jun 27 2024 8:54A Dictated by : KEYLA SOLIS MD This examination was interpreted and the report reviewed and electronically signed by: KEYLA SOLIS MD on Jun 28 2024 1:54PM EST [id number] Normal [facility] Comprehensive metabolic 2000 panelon 06-20-2024 Albumin [Mass/Vol] 4.2 g/dL Normal 3.9-4.9 [facility] Comment on above: Order Comment: Speci men Type: BLOOD SPECIMENOrdering Facility: [facility] Address: [address] [place] [address] [place] [address] Performed By: #### 2 4323-8 ####[facility] MILLTOWNCLIA [id number] [place] [address] [place] ALP [Catalytic activity/Vol] 157 U/L High 34-123 [facility] Comment on above: Order Comment: Speci men Type: BLOOD SPECIMENOrdering Facility: [facility] Address: [address] [place] [address] Performed By: #### 2 4323-8 ####[facility]ITALWNCLIA [id number] [place] [address] [place] ALT [Catalytic activity/Vol] 19 U/L Normal 7-38 [facility] Comment on above: Order Comment: Speci men Type: BLOOD SPECIMENOrdering Facility: [facility] Address: [address] [place] [address] Performed By: #### 2 4323-8 ####[facility] HOSPITALLIA [id number] [place] [address] [place] Anion gap [Moles/Vol] 9 mmol/L Normal 8-15 [facility] Comment on above: Order Comment: Speci men Type: BLOOD SPECIMENOrdering Facility: [facility] Address: [address] [place] [address] Performed By: #### 2 4323-8 ####[facility] HOS[facility]ITALWNCLIA [id number] [place] [address] [place] AST [Catalytic activity/Vol] 26 U/L Normal 13-35 [facility] Comment on above: Order Comment: Speci men Type: BLOOD SPECIMENOrdering Facility: [facility] Address: [address] [place] [address] Performed By: #### 2 4323-8 ####[facility] ERNCLIA [id number] [place] [address] [place] Bilirubin [Mass/Vol] 0.3 mg/dL Normal 0.2-1.3 [facility] Comment on above: Order Comment: Speci men Type: BLOOD SPECIMENOrdering Facility: [facility] Address: [address] [place] [address] Performed By: #### 2 4323-8 ####[facility] ERNCCEN[facility] [id number] [place] [address] [place] Calcium [Mass/Vol] 9.9 mg/dL Normal 8.5-10.2 [facility] Comment on above: Order Comment: Speci men Type: BLOOD SPECIMENOrdering Facility: [facility] Address: [address] [place] [address] Performed By: #### 2 4323-8 ####[facility] [id number] [place] [address] [place] Chloride [Moles/Vol] 101 mmol/L Normal 98-107 [facility] Comment on above: Order Comment: Speci men Type: BLOOD SPECIMENOrdering Facility: [facility] Address: [address] [place] [address] Performed By: #### 2 4323-8 ####[facility] [id number] [place] [address] [place] CO2 [Moles/Vol] 29 mmol/L Normal 22-30 [facility] Comment on above: Order Comment: Speci men Type: BLOOD SPECIMENOrdering Facility: [facility] Address: [address] [place] [address] Performed By: #### 2 4323-8 ####[facility] [id number] [place] [address] [place] Creatinine [Mass/Vol] 1.28 mg/dL High 0.58-0.96 [facility] Comment on above: Order Comment: Speci men Type: BLOOD SPECIMENOrdering Facility: [facility] Address: [address] [place] [address] Performed By: #### 2 4323-8 ####[facility] [id number] [place] [address] [place] Creatinine and Glomerular filtration rate.predicted panel (S/P/Bld) 46 mL/min/1.73m??? Low >=60 [facility] Comment on above: Order Comment: Suma cho Type: BLOOD SPECIMENOrdering Facility: [facility] Address: [address] [place] [address] Result Comment: Gracia mated Glomerular Filtration Rate (eGFR) is calculated using the 2020 CKD-EPI creatinine equation. This equation utilizes serum creatinine, sex, and age as parameters. The creatinine assay has traceable calibration to isotope dilution-mass spectrometry. Refer to KDIGO guidelines for clinical interpretation. In patients with unstable renal function, e.g. those with acute kidney injury, the eGFR may not accurately reflect actual GFR. Performed By: #### 2 4323-8 ####[facility] [id number] [place] [address] [place] Glucose [Mass/Vol] 87 mg/dL Normal 74-99 [facility] Comment on above: Order Comment: Suma cho Type: BLOOD SPECIMENOrdering Facility: [facility] Address: [address] [place] [address] Result Comment: The [place] Diabetes Association (ADA) provides guidance for cutoff values for fasting glucose and random glucose. The ADA defines fasting as no caloric intake for at least 8 hours. Fasting plasma glucose results between 100 to 125 mg/dL indicate increased risk for diabetes (prediabetes). Fasting plasma glucose results greater than or equal to 126 mg/dL meet the criteria for diagnosis of diabetes. In the absence of unequivocal hyperglycemia, results should be confirmed by repeat testing. In a patient with classic symptoms of hyperglycemia or hyperglycemic crisis, random plasma glucose results greater than or equal to 200 mg/dL meet the criteria for diagnosis of diabetes. Reference: Standards of Medical Care in Diabetes 2016, [place] Diabetes Association. Diabetes Care. 2016.39(Suppl 1). Performed By: #### 2 4323-8 ####[facility] MILLTOWNCLIA [id number] [place] [address] [place] Potassium [Moles/Vol] 3.8 mmol/L Normal 3.7-5.1 [facility] Comment on above: Order Comment: Speci men Type: BLOOD SPECIMENOrdering Facility: [facility] Address: [address] [place] [address] Performed By: #### 2 4323-8 ####[facility] MILLTOWNCLIA [id number] [place] [address] [place] Protein [Mass/Vol] 7.4 g/dL Normal 6.3-8.0 [facility] Comment on above: Order Comment: Speci men Type: BLOOD SPECIMENOrdering Facility: [facility] Address: [address] [place] [address] Performed By: #### 2 4323-8 ####[facility] ERNCLIA [id number] [place] [address] [place] Sodium [Moles/Vol] 139 mmol/L Normal 136-144 [facility] Comment on above: Order Comment: Speci men Type: BLOOD SPECIMENOrdering Facility: [facility] Address: [address] [place] [address] Performed By: #### 2 4323-8 ####[facility] MILLWNCLIA [id number] [place] [address] [place] Urea nitrogen [Mass/Vol] 23 mg/dL High 7-21 [facility] Comment on above: Order Comment: Speci men Type: BLOOD SPECIMENOrdering Facility: [facility] Address: [address] [place] [address] Performed By: #### 2 4323-8 ####[facility] ERNCLIA [id number] [place] [address] [place] Ferritin SerPl-mCncon 2024 Ferritin [Mass/Vol] 94.4 ng/mL Normal 14.7-205.1 [facility] Comment on above: Order Comment: Speci men Type: BLOOD SPECIMENOrdering Facility: [facility] Address: [address] [place] [address] Performed By: #### 2 276-4, 83014-2 ####[facility]ATORYCLIA [id number] [address] STATES [place]#### 13625-6 ####[facility] LABORATORYCLIA [id number] [place] [id number] [place] STATES OF [facility] [id number] [address] [place] INFLUENZA A&B MOLECULAR (POC )on 06-20-2024 Flu A (POCT) Negative Negative [facility] Flu B (POCT) Negative Negative [facility] Procedural Control Valid [facility] Location:[address], [address] [place] [address] POINT OF CARE [facility] Iron and Iron binding capaci ty panelon 06-20-2024 Iron [Mass/Vol] 70 ug/dL Normal 41-186 [facility] Comment on above: Order Comment: Speci men Type: BLOOD SPECIMENOrdering Facility: [facility] Address: [address] [place] [address] Performed By: #### 2 276-4, 00092-0 ####[facility]ORATORYCLIA [id number] [place] [address] [place]#### 56879-6 ####[facility]ORATORYCLIA [id number] [place] [address] [place] [facility]ICAN[facility] [id number] [place] [address] [place] Iron binding capacity [Mass/Vol] 285 ug/dL Normal 232-386 [facility] Comment on above: Order Comment: Speci men Type: BLOOD SPECIMENOrdering Facility: [facility] Address: [address] [place], [place] [address] Performed By: #### 2 276-4, 68148-3 ####[facility]ATORYCLIA [id number] [address] [place]#### 59164-2 ####[facility]ORATORYCLIA [id number] [address] [id number] [place] [address] Iron saturation [Mass fraction] 24.6 % Normal 15.0-57.0 [facility] Comment on above: Order Comment: Speci men Type: BLOOD SPECIMENOrdering Facility: [facility] Address: [address] [place] [address] Performed By: #### 2 276-4, 91280-5 ####[facility]ORATORYCLIA [id number] [address] OF [place]#### 27128-6 ####[facility]ORATORYCLIA [id number] [place] [id number] [place] [address] Lipid 1996 panelon 5 Cholesterol [Mass/Vol] 176 mg/dL Normal <200 [facility] Comment on above: Order Comment: Speci men Type: BLOOD SPECIMENOrdering Facility: [facility] Address: [address] [place] [address] Result Comment: <200 mg/dL, Desirable 200-239 mg/dL, Borderline high >239 mg/dL, High Performed By: #### 2 276-4, 81992-9 ####[facility] [facility]ATORYCLIA [id number] [address] [place]#### 54872-8 ####[facility] [facility]ATORYCLIA [id number] [address] OF [facility] [id number] [place] [address] [place] Cholesterol in HDL [Mass/Vol] 48 mg/dL Normal >39 [facility] Comment on above: Order Comment: Speci men Type: BLOOD SPECIMENOrdering Facility: [facility] Address: [address] [place] [address] Result Comment: 40-5 9 mg/dL, Acceptable >59 mg/dL, High: Negative risk factor for coronary heart disease <40 mg/dL, Low: Positive risk factor for coronary heart disease Performed By: #### 2 276-4, 56787-5 ####[facility] [facility]ATORYCLIA [id number] [address] [place]#### 06773-6 ####[facility]ORATORYCLIA [id number] [address] [id number] [place] [address] STATES [facility] Cholesterol in LDL [Mass/Vol] 100 mg/dL High <100 [facility] Comment on above: Order Comment: Speci men Type: BLOOD SPECIMENOrdering Facility: [facility] Address: [address] [place] [address] Result Comment: <100 mg/dL, Optimal 100-129 mg/dL, Near optimal/above optimal 130-159 mg/dL, Borderline high 160-189 mg/dL, High >189 mg/dL, Very high Secondary prevention optimal LDL Cholesterol levels are recommended to be < 70 mg/dL Performed By: #### 2 276-4, 49221-6 ####[facility] [facility]ATORYCLIA [id number] [address] [place]#### 01548-8 ####[facility]ORATORYCLIA [id number] [address] STATES OF [facility] [id number] [address] [place] Cholesterol in LDL/Cholesterol in HDL [Mass ratio] 2.08 {ratio} Normal <2.54 [facility] Comment on above: Order Comment: Speci men Type: BLOOD SPECIMENOrdering Facility: [facility] Address: [address] [place] [address] Result Comment: Kyler kam: 1. National Cholesterol Education Program ATP III Guideline At-A-Glance Quick Desk Reference: National Heart, Lung, and Blood [place]. National Institutes of Health. 2001: NIH Publication No. 01-3305. 2. An International Atherosclerosis Society position paper: global recommendations for the management of dyslipidemia: executive summary, Atherosclerosis. 2014: 232(2):410-413. Performed By: #### 2 276-4, 19347-2 ####[facility] [facility]ATORYCLIA [id number] [address]#### 58277-6 ####[facility]ORATORYCLIA [id number] [address] [id number] [place] [address] [place] Cholesterol in VLDL [Mass/Vol] 28 mg/dL Normal <30 [facility] Comment on above: Order Comment: Speci men Type: BLOOD SPECIMENOrdering Facility: [facility] Address: [address] [place] [address] Performed By: #### 2 276-4, 45590-1 ####[facility] [facility]ORATORYCLIA [id number] [address]#### 35262-9 ####[facility]ORATORYCLIA [id number] [address] [id number] [address] Cholesterol non HDL [Mass/Vol] 128 mg/dL Normal <130 [facility] Comment on above: Order Comment: Speci men Type: BLOOD SPECIMENOrdering Facility: [facility] Address: [address], [place] [address] Result Comment: <130 mg/dL, Optimal 130-159 mg/dL, Near optimal/above optimal 160-189 mg/dL, Borderline high 190-219 mg/dL, High >219 mg/dL, Very high Secondary prevention optimal non HDL Cholesterol levels are recommended to be <100 mg/dL Performed By: #### 2 276-4, 35498-7 ####[facility]ORATORYCLIA [id number] [address] OF [place]#### 27655-7 ####[facility]ORATORYCLIA [id number] [place] [id number] [place] [address] Cholesterol.total/Chol esterol in HDL [Mass ratio] 3.67 {ratio} Normal <5.10 [facility] Comment on above: Order Comment: Speci men Type: BLOOD SPECIMENOrdering Facility: [facility] Address: [address] [place] [address] Performed By: #### 2 276-, ####[facility]ORATORYCLIA [id number] [address] OF [place]#### 82668-3 ####[facility]ORATORYCLIA [id number] [place] [id number] [place] [address] FASTING TIME 12 hrs Normal [facility] Comment on above: Order Comment: Speci men Type: BLOOD SPECIMENOrdering Facility: [facility] Address: [address] [place] [address] Performed By: #### 2 276-4, ####[facility] [facility]ATORYCLIA [id number] [address] OF [place]#### 15791-4 ####[facility] [facility]ORATORYCLIA [id number] [place] [address] [facility]ITALNCC[facility] [id number] [address] Triglyceride [Mass/Vol] 140 mg/dL Normal <150 [facility] Comment on above: Order Comment: Speci men Type: BLOOD SPECIMENOrdering Facility: [facility] Address: [address] [place] [address] Result Comment: <150 mg/dL, Normal 150-199 mg/dL, Borderline high 200-499 mg/dL, High >499 mg/dL, Very high Performed By: #### 2 276-4, 68365-2 ####[facility] LABORATORYCLIA [id number] [address]#### 00031-6 ####[facility] LABORATORYCLIA [id number] [address] [id number] [address] OF [facility] XR CHEST 2V FRONTAL/LATon XR CHEST 2V FRONTAL/LAT * * *Final Report* * * DATE OF EXAM: Jun 20 2024 12:27PM WOX [id number] - XR CHEST 2V FRONTAL/LAT / PROCEDURE REASON: multiple diagnoses * * * * Physician Interpretation * * * * EXAMINATION: CHEST RADIOGRAPH (2 VIEW FRONTAL and LATERAL) CLINICAL HISTORY: Acute cough Centrilobular emphysema (HCC) MQ: XC2_6 EXAM DATE/TIME: 06/20/2024 12:27 PM COMPARISON: Radiograph 04/26/2022. Same day CT RESULT: Lines, tubes, and devices: None. Lungs and pleura: Similar scarring in the medial right lung with associated elevation right hemidiaphragm. Patchy tree-in-bud opacities in the left lung are better appreciated on the same day CT. Cardiomediastinal silhouette: Normal cardiomediastinal silhouette. Bones and soft tissues: Degenerative changes are present within the thoracic spine. Widening of the right acromioclavicular interval, possibly positional. IMPRESSION: Patchy airspace opacities of the left lung better appreciated on same-day CT and compatible with an infectious/inflammator y process. Stable posttreatment volume loss of the right lung. Executive Vp: PSCDior Transcribe Date/Time: Jun 20 2024 12:34P Dictated by : JADA ENGLISH MD This examination was interpreted and the report reviewed and electronically signed by: JADA ENGLISH MD on Jun 20 2024 12:37PM EST [id number] Normal [facility] XR Chest PA and Lateralon IMPRESSION: Patchy airspace opacities of the left lung better appreciated on same-day CT and compatible with an infectious/inflammator y process. Stable posttreatment volume loss of the right lung. Executive Vp: PSCDior Transcribe Date/Time: Jun 20 2024 12:34P Dictated by : JADA ENGLISH MD This examination was interpreted and the report reviewed and electronically signed by: JADA ENGLISH MD on Jun 20 2024 12:37PM EST DIVISION OF RADIOLOGY * * *Final Report* * * DATE OF EXAM: Jun 20 2024 12:27PM WOX 5291 - XR CHEST 2V FRONTAL/LAT / PROCEDURE REASON: multiple diagnoses * * * * Physician Interpretation * * * * EXAMINATION: CHEST RADIOGRAPH (2 VIEW FRONTAL & LATERAL) CLINICAL HISTORY: Acute cough Centrilobular emphysema (HCC) MQ: XC2_6 EXAM DATE/TIME: 06/20/2024 12:27 PM COMPARISON: Radiograph 04/26/2022. Same day CT RESULT: Lines, tubes, and devices: None. Lungs and pleura: Similar scarring in the medial right lung with associated elevation right hemidiaphragm. Patchy tree-in-bud opacities in the left lung are better appreciated on the same day CT. Cardiomediastinal silhouette: Normal cardiomediastinal silhouette. Bones and soft tissues: Degenerative changes are present within the thoracic spine. Widening of the right acromioclavicular interval, possibly positional. DIVISION OF RADIOLOGY [facility], [facility] * * *Final Report* * * DATE OF EXAM: Jun 20 2024 12:27PM WOX 5291 - XR CHEST 2V FRONTAL/LAT / PROCEDURE REASON: multiple diagnoses * * * * Physician Interpretation * * * * EXAMINATION: CHEST RADIOGRAPH (2 VIEW FRONTAL & LATERAL) CLINICAL HISTORY: Acute cough Centrilobular emphysema (HCC) MQ: XC2_6 EXAM DATE/TIME: 06/20/2024 12:27 PM COMPARISON: Radiograph 04/26/2022. Same day CT RESULT: Lines, tubes, and devices: None. Lungs and pleura: Similar scarring in the medial right lung with associated elevation right hemidiaphragm. Patchy tree-in-bud opacities in the left lung are better appreciated on the same day CT. Cardiomediastinal silhouette: Normal cardiomediastinal silhouette. Bones and soft tissues: Degenerative changes are present within the thoracic spine. Widening of the right acromioclavicular interval, possibly positional. IMPRESSION IMPRESSION: Patchy airspace opacities of the left lung better appreciated on same-day CT and compatible with an infectious/inflammator y process. Stable posttreatment volume loss of the right lung. Executive Vp: PSCDior Transcribe Date/Time: Jun 20 2024 12:34P Dictated by : JADA ENGLISH MD This examination was interpreted and the report reviewed and electronically signed by: JADA ENGLISH MD on Jun 20 2024 12:37PM EST [facility] Radiology Study observation (narrative) [facility] XR Chest PA and LateralOrder ed By: [facility] Provider on 06-20-2024 [facility] BD DXA - AXIAL SKELETONon BD DXA - AXIAL SKELETON * * *Final Report* * * DATE OF EXAM: Jun 13 2024 12:41PM [facility] 0804 - BD DXA - AXIAL SKELETON / PROCEDURE REASON: * * * * Physician Interpretation * * * * EXAMINATION: DXA BONE DENSITOMETRY BD DXA - AXIAL SKELETON PATIENT DEMOGRAPHICS: Age: 68 years, Gender: Female SCANNER INFORMATION: DXA Model: [employer] C 28906 Date Scanned: 06/13/2024 12:41 PM CLINICAL HISTORY: DIAGNOSTIC . RISK FACTORS FOR OSTEOPOROSIS AND ASSOCIATED FRACTURES REPORTED BY THIS PATIENT: Please refer to Bone Health Questionnaire in the EMR CURRENT THERAPY: Please refer to Bone Health Questionnaire in the EMR TECHNICAL LIMITATIONS: spine surgery RESULTS: Right Femoral Neck: 0.571 g/cm2, T-score -2.5, Z-score -0.8 Right Femoral Neck: 2020: 0.653 g/cm2 Statistically significant decrease Right Total Hip: 0.706 g/cm2, T-score -1.9, Z-score -0.5 Right Total Hip: 2020: 0.762 g/cm2 Statistically significant decrease Left Femoral Neck: 0.647 g/cm2, T-score -1.8, Z-score -0.1 Left Femoral Neck: 2020: 0.702 g/cm2 Statistically significant decrease Left Total Hip: 0.793 g/cm2, T-score -1.2, Z-score 0.2 Left Total Hip: 2020: 0.841 g/cm2 Statistically significant decrease CHANGE IS STATISTICALLY SIGNIFICANT IN THE SPINE OR HIP IF GREATER THAN OR EQUAL TO 0.04 g/cm2 IMPRESSION: THE LOWEST T-SCORE IS -2.5 IN THE RIGHT HIP 1) DIAGNOSIS (based on BMD alone): OSTEOPOROSIS Caution: Medical conditions other than osteoporosis may cause low bone density, such as osteomalacia or renal osteodystrophy. Clinical correlation is necessary. 2) FRACTURE RISK (based on FRAX): 10-year absolute fracture risk: - major osteoporotic fracture = 13 % - hip fracture = 2.9 % - A diagnosis of Osteoporosis, a 10 year probability of hip fracture greater than or equal to 3% or a 10 year probability of any major osteoporosis-related fracture greater than or equal to 20% should be considered for treatment. - DXA scanner generated FRAX calculations may slightly differ from online FRAX calculations due to differences in software versions. - All recommendations and calculations are to be considered as guidelines and should not replace sound clinical judgement - Caution: Fracture risk may be increased independent of BMD in patients with corticosteroid use, age greater than 65 years, or a history of prior fragility fracture. RECOMMENDATIONS: Follow-up in 2 years or as clinically indicated. Patients that are taking corticosteroids, are transplant recipients or have hyperparathyroidism should have annual follow-up. Follow-up scans should always be done on the same machine for accurate comparison. FOR MORE INFORMATION ABOUT DIAGNOSIS AND TREATMENT: [facility]:? www.ccf.org/arthritis/ osteo National Osteoporosis Foundation:? www.nof.org International Society of Clinical Densitometry www.iscd.org Executive Vp: LISA Transcribe Date/Time: Jun 17 2024 5:49A Dictated by : MICHAEL SHANE MD This examination was interpreted and the report reviewed and electronically signed by: MICHAEL SHANE MD on Jun 17 2024 5:52AM EST [id number] -2.5 Normal [facility] DBT Breast - bilateral karstene shin 06-13-2024 IMPRESSION: There is no mammographic evidence of malignancy in either breast. Routine screening mammogram is recommended. Annual mammogram will be due in 1 year. BI-RADS Category 1: Negative RISK: Based on the Tyrer-Cuzick (TC) risk assessment model, this patient has a 4.3% lifetime risk of developing breast cancer, meaning they are at average risk for developing breast cancer. However, this is only an estimate based on available history provided on the patient's questionnaire. We encourage all patients to talk with their providers about these results, further recommendations for managing breast health, and appropriate supplemental screening options if the patient has dense breast tissue. Interpreting Radiologist: Elvira Holder M.D. Electronically signed on: 06/13/2024 Executive Vp: TIAGO Transcribe Date/Time: Jun 13 2024 12:39P Dictated by: ELVIRA HOLDER MD This examination was interpreted and the report reviewed and electronically signed by: ELVIRA HOLDER MD on Jun 13 2024 2:09PM [facility] DIVISION OF RADIOLOGY * * *Final Report* * * DATE OF EXAM: Jun 13 2024 12:49PM [facility] 0582 - JERALD SCREENING W OBIE / PROCEDURE REASON: Encounter for screening mammogram for breast cancer * * * * Physician Interpretation * * * * RESULT: [place] [address] #[id number] - [facility] SCREENING W OBIE HISTORY: 68 year-old patient seen for screening and is asymptomatic in both breasts. Patient states no personal history of breast cancer. Patient states no personal history of other cancers. COMPARISON STUDIES: The present examination has been compared to prior imaging studies dated 09/14/2020 (mammogram) and 10/14/2021 (mammogram). MAMMOGRAM TECHNIQUE: The study was acquired using full field digital technology and interpreted from soft copy. Digital Breast Tomosynthesis (DBT) images were obtained and used to assist in the interpretation of this examination. MAMMOGRAM FINDINGS: The breasts are almost entirely fatty. No suspicious masses, calcifications or other abnormalities are seen in either breast. There are no significant interval changes. DIVISION OF RADIOLOGY Provider, [facility] * * *Final Report* * * DATE OF EXAM: Jun 13 2024 12:49PM [facility] 0582 - [facility] SCREENING W OBIE / PROCEDURE REASON: Encounter for screening mammogram for breast cancer * * * * Physician Interpretation * * * * RESULT: [address] [address] [place] [address] #[id number] - [facility] SCREENING W OIBE HISTORY: 68 year-old patient seen for screening and is asymptomatic in both breasts. Patient states no personal history of breast cancer. Patient states no personal history of other cancers. COMPARISON STUDIES: The present examination has been compared to prior imaging studies dated 09/14/2020 (mammogram) and 10/14/2021 (mammogram). MAMMOGRAM TECHNIQUE: The study was acquired using full field digital technology and interpreted from soft copy. Digital Breast Tomosynthesis (DBT) images were obtained and used to assist in the interpretation of this examination. MAMMOGRAM FINDINGS: The breasts are almost entirely fatty. No suspicious masses, calcifications or other abnormalities are seen in either breast. There are no significant interval changes. IMPRESSION IMPRESSION: There is no mammographic evidence of malignancy in either breast. Routine screening mammogram is recommended. Annual mammogram will be due in 1 year. BI-RADS Category 1: Negative RISK: Based on the Tyrer-Cuzick (TC) risk assessment model, this patient has a 4.3% lifetime risk of developing breast cancer, meaning they are at average risk for developing breast cancer. However, this is only an estimate based on available history provided on the patient's questionnaire. We encourage all patients to talk with their providers about these results, further recommendations for managing breast health, and appropriate supplemental screening options if the patient has dense breast tissue. Interpreting Radiologist: Elvira Holder M.D. Electronically signed on: 06/13/2024 Executive Vp: TIAGO Transcribe Date/Time: Jun 13 2024 12:39P Dictated by: ELVIRA HOLDER MD This examination was interpreted and the report reviewed and electronically signed by: ELVIRA HOLDER MD on Jun 13 2024 2:09PM EST [facility] Radiology Study observation (narrative) [facility] DBT Breast - bilateral scree ningOrdered By: [facility] Provider on 06-13-2024 [facility] JERALD SCREENING W TOMOon 06-13 JERALD SCREENING W OBIE * * *Final Report* * * DATE OF EXAM: Jun 13 2024 12:49PM [facility] 0582 - JERALD SCREENING W OBIE / PROCEDURE REASON: Encounter for screening mammogram for breast cancer * * * * Physician Interpretation * * * * RESULT: [place] [address] #[id number] - JERALD SCREENING W OBIE HISTORY: 68 year-old patient seen for screening and is asymptomatic in both breasts. Patient states no personal history of breast cancer. Patient states no personal history of other cancers. COMPARISON STUDIES: The present examination has been compared to prior imaging studies dated 09/14/2020 (mammogram) and 10/14/2021 (mammogram). MAMMOGRAM TECHNIQUE: The study was acquired using full field digital technology and interpreted from soft copy. Digital Breast Tomosynthesis (DBT) images were obtained and used to assist in the interpretation of this examination. MAMMOGRAM FINDINGS: The breasts are almost entirely fatty. No suspicious masses, calcifications or other abnormalities are seen in either breast. There are no significant interval changes. IMPRESSION: There is no mammographic evidence of malignancy in either breast. Routine screening mammogram is recommended. Annual mammogram will be due in 1 year. BI-RADS Category 1: Negative RISK: Based on the Tyrer-Cuzick (TC) risk assessment model, this patient has a 4.3% lifetime risk of developing breast cancer, meaning they are at average risk for developing breast cancer. However, this is only an estimate based on available history provided on the patient's questionnaire. We encourage all patients to talk with their providers about these results, further recommendations for managing breast health, and appropriate supplemental screening options if the patient has dense breast tissue. Interpreting Radiologist: Elvira Holder M.D. Electronically signed on: 06/13/2024 Executive Vp: TIAGO Espinozarikaylee Date/Time: Jun 13 2024 12:39P Dictated by: ELVIRA HOLDER MD This examination was interpreted and the report reviewed and electronically signed by: ELVIRA HOLDER MD on Jun 13 2024 2:09PM EST [id number] Normal [facility] CNOVon 06-08-2024 CNOV Office Visit (UCWSTR ) KATRINA SERRANO ([id number]) 1955 F Date Time Provider Department 06/08/24 3:00 PM MICHAEL BABIN [facility] During your visit today, we recorded the following information about you: Michael Babin MD 06/08/2024 3:07 PM Signed Express Care Triage Note: Patient presents to the express care with complaint of severe right arm pain that started today; no known injury. She has had this pain previously and gotten injections. She feels the pain all the way down to her fingers and her fingers feel cold. She is uncomfortable holding her arm down at her side. She would like to cancel her appointment here since we do not provide shoulder injections and plans to go to the ER with imaging and pain medicine are available. Allergies As of Date: 06/08/2024 (No Known Allergies) Date Reviewed: 05/10/2024 Reviewed by: Nimco Galindo LPN - Fully Assessed Primary Visit Diagnosis:Right arm pain [M79.601] Prescriptions as of 06/08/2024 - sertraline (ZOLOFT) 100 mg tablet Take 1 tablet by mouth once daily. - traMADol (ULTRAM) 50 mg tablet Take 1 tablet by mouth every 6 hours as needed for pain for up to 90 days. - rOPINIRole (REQUIP) 1 mg tablet Take 1 tablet by mouth daily at bedtime. - MYRBETRIQ 50 mg Tb24 Take 50 mg by mouth once daily. - alendronate (FOSAMAX) 70 mg tablet Take 1 tablet by mouth one time a week. In am with glass of water, on a empty stomach, nothing by mouth or lying down for 30 minutes - metoprolol tartrate, short acting, (LOPRESSOR) 25 mg tablet Take 0.5 tablets by mouth two times a day. - pantoprazole DR (PROTONIX) 40 mg tablet Take 1 tablet by mouth once daily. - umeclidinium-vilantero l (ANORO ELLIPTA) 62.5-25 mcg/actuation inhaler Inhale 1 Inhalation as instructed once daily. - amitriptyline (ELAVIL) 50 mg tablet Take 1 tablet by mouth daily at bedtime. - XARELTO 20 mg tablet Take 1 tablet by mouth once daily. - simvastatin (ZOCOR) 20 mg tablet Take 1 tablet by mouth daily at bedtime. - OXYGEN, HOME THERAPY, Inhale 3 L/min as instructed as directed. - hydrOXYchloroQUINE (PLAQUENIL) 200 mg tablet Take 200 mg by mouth twice daily. - albuterol HFA (PROVENTIL HFA, VENTOLIN HFA) 90 mcg/actuation inhaler Inhale 2 Puffs as instructed every 4 hours as needed for wheezing/shortness of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 decomp PAST SURGICAL HISTORY OF 03/13/2020 MEDIASTINOSCOPY W/LYMPH NODE BIOPSY REPR DURAL/CSF LEAK W LAMINECTOMY RMVL LUNG OTHER THAN PNEUMONECTOMY 1 LOBE LOBECT Right 06/22/2020 Thoracotomy, right middle lobectomy, mediastinal lymph node dissection for lung cancer SIGMOIDOSCOPY FLX (more content not included)... Normal [facility] CNOVon 05-09-2024 CNOV Office Visit (UCWSTR ) KATRINA SERRANO ([id number]) 1955 F Date Time Provider Department 05/09/24 10:45 AM TIMA LÓPEZ [facility] During your visit today, we recorded the following information about you: Temperature Pulse Respiration Blood pressure 97.2 degrees 75/minute 22/minute 98/64 Weight 88.3 kg Tima López, SANJAY[employer] 05/09/2024 11:44 AM Signed Subjective Female with complaints of a weeklong of right foot pain. Patient says it hurts to the bottom onto the top. Patient does not recall any injuries but does have a history of osteoporosis. Patient says it does not seem to be getting any better. Patient says that walking on it makes it hurt worse and bending it inward makes it hurt worse. Tingling numbness. The history is provided by the patient. No math tutor was used. Pain (foot) Review of Systems Constitutional: Negative. Skin: Negative. Objective Physical Exam Constitutional: Appearance: Normal appearance. Pulmonary: Effort: Pulmonary effort is normal. Musculoskeletal: Feet: Feet: Comments: Patient is having pain in the area marked above. Does not create pain when palpating. No signs of swelling or discoloration. Circulation intact. Sensation intact. Strength intact. Range of motion intact. Neurological: Mental Status: She is alert. 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 Microscopic colitis Other malaise and fatigue Paroxysmal atrial fibrillation (HCC) Shortness of breath Unspecified constipation PAST SURGICAL HISTORY Procedure Laterality Date BACK SURGERY HX x 3 COLONOSCOPY FLX DX W/COLLJ SPEC WHEN PFRMD 02/04/2021 COLSC FLX W/RMVL OF TUMOR POLYP LESION SNARE TQ 08/07/2008 EGD TRANSORAL BIOPSY SINGLE/MULTIPLE 06/16/2010 EGD W/O [facility] SPEC VARICIES INJ 11/17/2021 EXC NEUROMA HAND/FOOT XCP DIGITAL NERVE HERNIA REPAIR HX NEUROPLASTY AND/TRANSPOS MEDIAN NRV CARPAL TUNNE Bilateral Carpal tunnel decomp PAST SURGICAL HISTORY OF 03/13/2020 MEDIASTINOSCOPY W/LYMPH NODE BIOPSY REPR DURAL/CSF LEAK W LAMINECTOMY RMVL LUNG OTHER THAN PNEUMONECTOMY 1 LOBE LOBECT Right 06/22/2020 Thoracotomy, right middle lobectomy, mediastinal lymph node dissection for lung cancer SIGMOIDOSCOPY FLX DX W/COLLJ SPEC BR/WA IF PFRMD 1998 Sigmoidoscopy TONSILLECTOMY PRIMARY/SECONDARY Tonsillectomy ALLERGIES Patient has no known allergies. MEDICATIONS sertraline (ZOLOFT) 100 mg tablet Take 1 tablet by mouth once daily. traMADol (ULTRAM) 50 mg tablet Take 1 tablet by mouth every 6 hours as needed for pain for up to 90 days. rOPINIRole (REQUIP) 1 mg tablet Take 1 tablet by mouth daily at bedtime. MYRBETRIQ 50 mg Tb24 Take 50 mg by mouth once daily. alendronate (FOSAMAX) 70 mg tablet Take 1 tablet by mouth one time a week. In am with glass of water, on a empty stomach, nothing by mouth or lying down for 30 minutes metoprolol tartrate, short acting, (LOPRESSOR) 25 mg tablet Take 0.5 tablets by mouth two times a day. pantoprazole DR (PROTONIX) 40 mg tablet Take 1 tablet by mouth once daily. umeclidinium-vilantero l (ANORO ELLIPTA) 62.5-25 mcg/actuation inhaler Inhale 1 Inhalation as instructed once daily. amitriptyline (ELAVIL) 50 mg tablet Take 1 tablet by mouth daily at bedtime. XARELTO 20 mg tablet Take 1 tablet by mouth once daily. simvastatin (ZOCOR) 20 mg tablet Take 1 tablet by mouth daily at bedtime. OXYGEN, HOME THERAPY, Inhale 3 L/min as instructed as directed. hydrOXYchloroQUINE (PLAQUENIL) 200 mg tablet Take 200 mg by mouth twice daily. albuterol HFA (PROVENTIL HFA, VENTOLIN HFA) 90 mcg/actuation inhaler Inhale 2 Puffs as instructed every 4 hours as needed for wheezing/shortness of breath. ferrous sulfate (IRON ORAL) Take 2 tablets by mouth once daily. Lactobacillus acidophilus (PROBIOTIC ORAL) Take 1 tablet by mouth once daily. cholecalciferol, vitamin D3, (VITAMIN D3 ORAL) Take 1 tablet by mouth once daily. calcium carbonate/vitamin D3 (OS-TESSY 500 + D3 ORAL) Take 1 tablet by mouth once daily. FAMILY HISTORY Problem Relation Age of Onset other (throat cancer) Mother Heart Father Skin Cancer Brother COPD Brother Skin Cancer Brother Diabetes Son Colon Cancer No Family History Social History Tobacco Use Smoking status: Former Current packs/day: 0.00 Average packs/day: 1 pack/day for 30.0 years (30.0 ttl pk-yrs) Type (more content not included)... Normal [facility] XR FOOT 3V AP/LAT/OBL RTon 0 05-09-2024 XR FOOT 3V AP/LAT/OBL RT * * *Final Report* * * DATE OF EXAM: May 09 2024 11:09AM WOX [id number] - XR FOOT 3V AP/LAT/OBL RT / PROCEDURE REASON: Pain * * * * Physician Interpretation * * * * EXAM: XR FOOT 3V AP/LAT/OBL RT PATIENT HISTORY: Pain around dorsal lateral forefoot for one week TECHNIQUE: AP, oblique, and lateral radiograph of the right foot COMPARISON: No relevant prior available FINDINGS: No acute fracture or dislocation. Lisfranc joint appears grossly intact. No soft tissue swelling. No radiopaque foreign body. IMPRESSION: Negative for acute fracture or malalignment of the right foot. Executive Vp: LISA Transcribe Date/Time: May 09 2024 11:22A Dictated by : JADA ENGLISH MD This examination was interpreted and the report reviewed and electronically signed by: JADA ENGLISH MD on May 09 2024 11:24AM EST [id number] Normal [facility] XR Foot - right AP and Later al and obliqueon 05-09-2024 IMPRESSION: Negative for acute fracture or malalignment of the right foot. Executive Vp: LISA Transcribe Date/Time: May 09 2024 11:22A Dictated by : JADA ENGLISH MD This examination was interpreted and the report reviewed and electronically signed by: JADA ENGLISH MD on May 09 2024 11:24AM EST DIVISION OF RADIOLOGY * * *Final Report* * * DATE OF EXAM: May 09 2024 11:09AM WOX [id number] - XR FOOT 3V AP/LAT/OBL RT / PROCEDURE REASON: Pain * * * * Physician Interpretation * * * * EXAM: XR FOOT 3V AP/LAT/OBL RT PATIENT HISTORY: Pain around dorsal lateral forefoot for one week TECHNIQUE: AP, oblique, and lateral radiograph of the right foot COMPARISON: No relevant prior available FINDINGS: No acute fracture or dislocation. Lisfranc joint appears grossly intact. No soft tissue swelling. No radiopaque foreign body. DIVISION OF RADIOLOGY Provider, [facility] - 05/09/2024 * * *Final Report* * * DATE OF EXAM: May 09 2024 11:09AM WOX [id number] - XR FOOT 3V AP/LAT/OBL RT / PROCEDURE REASON: Pain * * * * Physician Interpretation * * * * EXAM: XR FOOT 3V AP/LAT/OBL RT PATIENT HISTORY: Pain around dorsal lateral forefoot for one week TECHNIQUE: AP, oblique, and lateral radiograph of the right foot COMPARISON: No relevant prior available FINDINGS: No acute fracture or dislocation. Lisfranc joint appears grossly intact. No soft tissue swelling. No radiopaque foreign body. IMPRESSION IMPRESSION: Negative for acute fracture or malalignment of the right foot. Executive Vp: LISA Transcribe Date/Time: May 09 2024 11:22A Dictated by : JADA ENGLISH MD This examination was interpreted and the report reviewed and electronically signed by: JADA ENGLISH MD on May 09 2024 11:24AM EST [facility] Radiology Study observation (narrative) [facility] XR Foot - right AP and Later al and obliqueOrdered By: [facility] Provider on 05-09-2024 [facility] CNOVon 04-17-2024 CNOV Office Visit (FAMMAS ) KATRINA SERRANO ([id number]) 1955 F Date Time Provider Department 04/17/24 3:50 PM DENNIS MARCIAL During your visit today, we recorded the following information about you: Temperature Pulse Respiration Blood pressure 98 degrees 76/minute 18/minute 124/78 Weight Height 87.1 kg 1.676 m Stephane Ibrahim LPN 04/17/2024 4:15 PM Signed Due health maintenance DTaP,Tdap,Td Vaccine(1 - Tdap) declined Alpha-1 Antitrypsin Deficiency Screening declined Mammogram Screening ordered Bone Density Screening ordered Need presurgical clearance for surgery. Patient has no current complaints or concerns. Declined sensitive Stephane Ibrahim LPN April 17, 2024 3:17 PM Dennis Marcial MD 04/17/2024 4:15 PM Signed Subjective Katrina Serrano is a 68 year old female. Katrina presents today for her Medicare wellness visit. Additionally she follows up for multiple medical problems. See list. Her chronic medical problems are stable. She is followed by oncology for her history of lung cancer. This has been stable as well per patient. Blood pressure is under good control on her current regimen. She denies any racing heart rates associated with her history of A-fib. Cholesterols been well-controlled on current medication. She continues to take iron for treatment of her deficiency anemia. Most recent iron level has been normal. Continues to require tramadol for treatment of her low back pain. Review of Systems PAST SURGICAL HISTORY Procedure Laterality Date BACK SURGERY HX x 3 COLONOSCOPY FLX DX W/COLLJ SPEC WHEN PFRMD 02/04/2021 COLSC FLX W/RMVL OF TUMOR POLYP LESION SNARE TQ 08/07/2008 EGD TRANSORAL BIOPSY SINGLE/MULTIPLE 06/16/2010 EGD W/O [facility] SPEC VARICIES INJ 11/17/2021 EXC NEUROMA HAND/FOOT XCP DIGITAL NERVE HERNIA REPAIR HX NEUROPLASTY AND/TRANSPOS MEDIAN NRV CARPAL TUNNE Bilateral Carpal tunnel decomp PAST SURGICAL HISTORY OF 03/13/2020 MEDIASTINOSCOPY W/LYMPH NODE BIOPSY REPR DURAL/CSF LEAK W LAMINECTOMY RMVL LUNG OTHER THAN PNEUMONECTOMY 1 LOBE LOBECT Right 06/22/2020 Thoracotomy, right middle lobectomy, mediastinal lymph node dissection for lung cancer SIGMOIDOSCOPY FLX DX W/COLLJ SPEC BR/WA IF PFRMD 1998 Sigmoidoscopy TONSILLECTOMY PRIMARY/SECONDARY Tonsillectomy 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 Microscopic colitis Other malaise and fatigue Paroxysmal atrial fibrillation (HCC) Shortness of breath Unspecified constipation FAMILY HISTORY Problem Relation Age of Onset other (throat cancer) Mother Heart Father Skin Cancer Brother COPD Brother Skin Cancer Brother Diabetes Son Colon Cancer No Family History Social History Tobacco Use Smoking status: Former Current packs/day: 0.00 Average packs/day: 1 pack/day for 30.0 years (30.0 ttl pk-yrs) Types: Cigarettes Start date: 03/24/1970 Quit date: 03/24/2000 Years since quittin.0 Smokeless tobacco: Never Vaping Use Vaping status: Never Used Substance Use Topics Alcohol use: No Drug use: Never ALLERGIES No Known Allergies MEDICATIONS: rOPINIRole (REQUIP) 1 mg tablet Take 1 tablet by mouth daily at bedtime. MYRBETRIQ 50 mg Tb24 Take 50 mg by mouth once daily. alendronate (FOSAMAX) 70 mg tablet Take 1 tablet by mouth one time a week. In am with glass of water, on a empty stomach, nothing by mouth or lying down for 30 minutes metoprolol tartrate, short acting, (LOPRESSOR) 25 mg tablet Take 0.5 tablets by mouth two times a day. pantoprazole DR (PROTONIX) 40 mg tablet Take 1 tablet by mouth once daily. umeclidinium-vilantero l (ANORO ELLIPTA) 62.5-25 mcg/actuation inhaler Inhale 1 Inhalation as instructed once daily. amitriptyline (ELAVIL) 50 mg tablet Take 1 tablet by mouth daily at bedtime. sertraline (ZOLOFT) 100 mg tablet Take 1 tablet by mouth once daily. XARELTO 20 mg tablet Take 1 tablet by mouth once daily. simvastatin (ZOCOR) 20 mg tablet Take 1 tablet by mouth daily at bedtime. OXYGEN, HOME THERAPY, Inhale 3 L/min as instructed as directed. hydrOXYchloroQUINE (PLAQUENIL) 200 mg tablet Take 200 mg by mouth twice daily. albuterol HFA (PROVENTIL HFA, VENTOLIN HFA) 90 mcg/actuation inhaler Inhale 2 Puffs as instructed every 4 hours as needed for wheezing/shortness of breath. ferrous sulfate (IRON ORAL) Take 2 tablets by mouth (more content not included)... [facility] 02-13-2024 [facility] Telephone (MARCOTXS) KATRINA SERRANO ([id number]) 1955 F Date Time Provider Department 02/13/24 DENNIS MARCIAL During your visit today, we recorded the following information about you: Ana Soto LPN 02/13/2024 9:[address] Marcial regarding patient's recent test results: CBC and iron much improved. I attempted to call patient Piotr. No answer. I left a voice mail message for patient to return call to office. Ana Soto LPN February 13, 2024 9:13 AM Ana Soto LPN 02/14/2024 11:45 AM Signed I attempted to call patient Piotr. No answer. I left a voice mail message for patient to return call to office. Ana Soto LPN February 14, 2024 11:45 AM Ana Soto LPN 02/22/2024 1:34 PM Signed I spoke to patient Piotr and advised her per Dr Marcial's notes. Patient did voice understanding and she is very thankful. Ana Soto LPN February 22, 2024 1:34 PM Allergies As of Date: 02/13/2024 (No Known Allergies) Date Reviewed: 02/12/2024 Reviewed by: Elvira Mcintosh LPN - Fully Assessed Reason for Visit: Results [95] Prescriptions as of 02/22/2024 - MYRBETRIQ 50 mg Tb24 Take 50 mg by mouth once daily. - alendronate (FOSAMAX) 70 mg tablet Take 1 tablet by mouth one time a week. In am with glass of water, on a empty stomach, nothing by mouth or lying down for 30 minutes - metoprolol tartrate, short acting, (LOPRESSOR) 25 mg tablet Take 0.5 tablets by mouth two times a day. - pantoprazole DR (PROTONIX) 40 mg tablet Take 1 tablet by mouth once daily. - umeclidinium-vilantero l (ANORO ELLIPTA) 62.5-25 mcg/actuation inhaler Inhale 1 Inhalation as instructed once daily. - rOPINIRole (REQUIP) 1 mg tablet Take 1 tablet by mouth daily at bedtime. - amitriptyline (ELAVIL) 50 mg tablet Take 1 tablet by mouth daily at bedtime. - sertraline (ZOLOFT) 100 mg tablet Take 1 tablet by mouth once daily. - XARELTO 20 mg tablet Take 1 tablet by mouth once daily. - traMADol (ULTRAM) 50 mg tablet Take 1 tablet by mouth every 6 hours as needed for pain for up to 90 days. - simvastatin (ZOCOR) 20 mg tablet Take 1 tablet by mouth daily at bedtime. - OXYGEN, HOME THERAPY, Inhale 3 L/min as instructed as directed. - hydrOXYchloroQUINE (PLAQUENIL) 200 mg tablet Take 200 mg by mouth twice daily. - albuterol HFA (PROVENTIL HFA, VENTOLIN HFA) 90 mcg/actuation inhaler Inhale 2 Puffs as instructed every 4 hours as needed for wheezing/shortness of breath. - ferrous sulfate (IRON ORAL) Take 2 tablets by mouth once daily. - Lactobacillus acidophilus (PROBIOTIC ORAL) Take 1 tablet by mouth once daily. - cholecalciferol, vitamin D3, (VITAMIN D3 ORAL) Take 1 tablet by mouth once daily. - calcium carbonate/vitamin D3 (OS-TESSY 500 + D3 ORAL) Take 1 tablet by mouth once daily. Problem List As Of Date 02/13/2024 Noted Resolved Dysphagia [R13.10] CHEST PAIN NOS [R07.9] SHORTNESS OF BREATH [R06.02] MALAISE AND FATIGUE NEC [R53.81, R53.83] Tobacco use disorder [F17.200] 09/12/2022 Recurrent major depressive disorder, in remissi* LUMB/LUMBOSAC DISC DEGEN [M51.379] ESOPHAGEAL REFLUX [K21.9] LUMBAGO [M54.50] BENIGN NEOPLASM LG BOWEL [D12.6] 08/07/2008 CONSTIPATION NOS [K59.00] 08/07/2008 Diarrhea [R19.7] 04/06/2009 02/04/2021 Microscopic colitis [K52.839] Acute gastritis without mention of hemorrhage [*06/16/2010 Lung nodule [R91.1] 03/13/2020 Lymphadenopathy, mediastinal [R59.0] 03/13/2020 Former smoker [Z87.891] 03/13/2020 Primary cancer of right lower lobe of lung (HCC*03/24/2020 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 Hypomagnesemia [E83.42] 05/11/2020 Paroxysmal atrial fibrillation (HCC) [I48.0] 06/22/2020 Pain, postoperative, acute [G89.18] 06/22/2020 Discharge planning issues [Z75.8] 06/22/2020 NSCLC of right lung (HCC) [C34.91] 06/22/2020 SERENA (acute kidney injury) (HCC) [N17.9] 06/23/2020 Infected tooth [K04.7] 06/23/2020 Malignant neoplasm of unspecified part of unspe*08/21/2020 09/10/2021 Centrilobular emphysema (HCC) [J43.2] 09/10/2021 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] 09/10/2021 Iron deficiency anemia secondary to inadequate *10/12/2021 Stage 3b chronic kidney disease (HCC) [N18.32] Malignant neoplasm of lung (HCC) [C34.90] 05/25/2020 09/12/2022 Osteoarthrosis [M19.90] 03/08/2017 Osteoporosis [M81.0] 03/08/2017 Irritable bowel syndrome [K58.9] 07/08/2022 Insomnia [G47.00] 05/25/2020 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 Normal [facility] CBC W Auto Differential pane l (Bld)Ordered By: Oly Bonds on 02-12-2024 Basophils (Bld) [#/Vol] 0.03 10*3/uL [facility] Basophils/100 WBC (Bld) 0.7 % [facility] Differential cell count method Nom (Bld) Auto [facility] Eosinophils (Bld) [#/Vol] 0.20 10*3/uL [facility] Eosinophils/100 WBC (Bld) 4.9 % [facility] Erythrocyte distribution width (RBC) [Ratio] 13.9 % 11.5 - 15.0 % [facility] Hematocrit (Bld) [Volume fraction] 36.0 % 36.0 - 46.0 % [facility] Hemoglobin (Bld) [Mass/Vol] 11.3 g/dL Low 11.5 - 15.5 g/dL [facility] Immature granulocytes (Bld) [#/Vol] NINF [facility] Immature granulocytes/100 WBC (Bld) 0.0 % [facility] Interpretation and review of laboratory results Abnormal [facility] Lymphocytes (Bld) [#/Vol] 1.22 10*3/uL [facility] Lymphocytes/100 WBC (Bld) 29.8 % [facility] MCH (RBC) [Entitic mass] 30.5 pg 26.0 - 34.0 pg [facility] MCHC (RBC) [Mass/Vol] 31.4 g/dL 30.5 - 36.0 g/dL [facility] MCV (RBC) [Entitic vol] 97.0 fL 80.0 - 100.0 fL [facility] Monocytes (Bld) [#/Vol] 0.39 10*3/uL [facility] Monocytes/100 WBC (Bld) 9.5 % [facility] Neutrophils (Bld) [#/Vol] 2.26 10*3/uL [facility] Neutrophils/100 WBC (Bld) 55.1 % [facility] Platelet mean volume (Bld) [Entitic vol] 9.4 fL 9.0 - 12.7 fL [facility] Platelets (Bld) [#/Vol] 236 10*3/uL [facility] RBC (Bld) [#/Vol] 3.71 10*6/uL Low 3.90 - 5.2 0 m/uL [facility] WBC (Bld) [#/Vol] 4.10 10*3/uL [facility] CBC W Auto Differential pane l (Bld)on 02-12-2024 Basophils (Bld) [#/Vol] 0.03 10*3/uL Normal <0.11 [facility] Comment on above: Order Comment: Speci men Type: BLOOD SPECIMEN Ordering Facility: [facility] Address: [address] [place] [address] Performed By: #### 5 7021-8 #### [facility] CLIA [id number] [address] [place] [address] [place] Basophils/100 WBC (Bld) 0.7 % Normal [facility] Comment on above: Order Comment: Speci men Type: BLOOD SPECIMEN Ordering Facility: [facility] Address: [address] [place] [address] Performed By: #### 5 7021-8 #### [facility] CLIA [id number] [address] [place] [address] [place] Differential cell count method Nom (Bld) Auto Normal [facility] Comment on above: Order Comment: Speci men Type: BLOOD SPECIMEN Ordering Facility: [facility] Address: [address] [place] [address] Performed By: #### 5 7021-8 #### [facility] CLIA [id number] [address] [place] [address] [place] Eosinophils (Bld) [#/Vol] 0.20 10*3/uL Normal <0.46 [facility] Comment on above: Order Comment: Speci men Type: BLOOD SPECIMEN Ordering Facility: [facility] Address: [address] [place] [address] Performed By: #### 5 7021-8 #### [facility] CLIA [id number] [address] [place] [address] Eosinophils/100 WBC (Bld) 4.9 % Normal [facility] Comment on above: Order Comment: Speci men Type: BLOOD SPECIMEN Ordering Facility: [facility] Address: [address] [place] [address] Performed By: #### 5 7021-8 #### [facility] CLIA [id number] [address] [place] [address] [place] Erythrocyte distribution width (RBC) [Ratio] 13.9 % Normal 11.5-15.0 [facility] Comment on above: Order Comment: Speci men Type: BLOOD SPECIMEN Ordering Facility: [facility] Address: [address] [place] [address] Performed By: #### 5 7021-8 #### [facility] CLIA [id number] [address] [place] [address] [place] Hematocrit (Bld) [Volume fraction] 36.0 % Normal 36.0-46.0 [facility] Comment on above: Order Comment: Speci men Type: BLOOD SPECIMEN Ordering Facility: [facility] Address: [address] [place] [address] Performed By: #### 5 7021-8 #### [facility] CLIA [id number] [address] [place] [address] [place] Hemoglobin (Bld) [Mass/Vol] 11.3 g/dL Low 11.5-15.5 [facility] Comment on above: Order Comment: Speci men Type: BLOOD SPECIMEN Ordering Facility: [facility] Address: [address] [place] [address] Performed By: #### 5 7021-8 #### [facility] CLIA [id number] [address] [place] [address] [place] Immature granulocytes (Bld) [#/Vol] 10*3/uL Normal <0.10 [facility] Comment on above: Order Comment: Speci men Type: BLOOD SPECIMEN Ordering Facility: [facility] Address: [address] [place] [address] Performed By: #### 5 7021-8 #### [facility] CLIA [id number] [address] [place] [address] [place] Immature granulocytes/100 WBC (Bld) 0.0 % Normal [facility] Comment on above: Order Comment: Speci men Type: BLOOD SPECIMEN Ordering Facility: [facility] Address: [address] [place] [address] Performed By: #### 5 7021-8 #### [facility] CLIA [id number] [address] [place], [place] [address] [place] Lymphocytes (Bld) [#/Vol] 1.22 10*3/uL Normal 1.00-4.00 [facility] Comment on above: Order Comment: Speci men Type: BLOOD SPECIMEN Ordering Facility: [facility] Address: [address] [place] [address] Performed By: #### 5 7021-8 #### [facility] CLIA [id number] [address] [place], [place] [address] [place] [facility] Lymphocytes/100 WBC (Bld) 29.8 % Normal [facility] Comment on above: Order Comment: Speci men Type: BLOOD SPECIMEN Ordering Facility: [facility] Address: [address] [place] [address] Performed By: #### 5 7021-8 #### [facility] CLIA [id number] [address] [place], [place] [address] [facility] MCH (RBC) [Entitic mass] 30.5 pg Normal 26.0-34.0 [facility] Comment on above: Order Comment: Speci men Type: BLOOD SPECIMEN Ordering Facility: [facility] Address: [address] [place] [address] Performed By: #### 5 7021-8 #### [facility] CLIA [id number] [address] [place] [address] OF [facility] MCHC (RBC) [Mass/Vol] 31.4 g/dL Normal 30.5-36.0 [facility] Comment on above: Order Comment: Speci men Type: BLOOD SPECIMEN Ordering Facility: [facility] Address: [address] [place] [address] Performed By: #### 5 7021-8 #### [facility] CLIA [id number] [address] [place] [address] [place] MCV (RBC) [Entitic vol] 97.0 fL Normal 80.0-100.0 [facility] Comment on above: Order Comment: Speci men Type: BLOOD SPECIMEN Ordering Facility: [facility] Address: [address] [place] [address] Performed By: #### 5 7021-8 #### [facility] CLIA [id number] [address] [place], [place] [address] [facility] Monocytes (Bld) [#/Vol] 0.39 10*3/uL Normal <0.87 [facility] Comment on above: Order Comment: Speci men Type: BLOOD SPECIMEN Ordering Facility: [facility] Address: [address] [place] [address] Performed By: #### 5 7021-8 #### [facility] CLIA [id number] [address] [place] [address] [place] Monocytes/100 WBC (Bld) 9.5 % Normal [facility] Comment on above: Order Comment: Speci men Type: BLOOD SPECIMEN Ordering Facility: [facility] Address: [address] [place] [address] Performed By: #### 5 7021-8 #### [facility] CLIA [id number] [address] [place] [address] [place] Neutrophils (Bld) [#/Vol] 2.26 10*3/uL Normal 1.45-7.50 [facility] Comment on above: Order Comment: Speci men Type: BLOOD SPECIMEN Ordering Facility: [facility] Address: [address] [place] [address] Performed By: #### 5 7021-8 #### [facility] CLIA [id number] [address] [place], [place] [address] [place] Neutrophils/100 WBC (Bld) 55.1 % Normal [facility] Comment on above: Order Comment: Speci men Type: BLOOD SPECIMEN Ordering Facility: [facility] Address: [address] [place] [address] Performed By: #### 5 7021-8 #### [facility] CLIA [id number] [address] [place] [address] [place] Platelet mean volume (Bld) [Entitic vol] 9.4 fL Normal 9.0-12.7 [facility] Comment on above: Order Comment: Speci men Type: BLOOD SPECIMEN Ordering Facility: [facility] Address: [address] [place] [address] Performed By: #### 5 7021-8 #### [facility] CLIA [id number] [address] [place] [address] [place] Platelets (Bld) [#/Vol] 236 10*3/uL Normal 150-400 [facility] Comment on above: Order Comment: Speci men Type: BLOOD SPECIMEN Ordering Facility: [facility] Address: [address] [place] [address] Performed By: #### 5 7021-8 #### [facility] CLIA [id number] [address] [place] [address] [facility] [place] RBC (Bld) [#/Vol] 3.71 10*6/uL Low 3.90-5.20 [facility] Comment on above: Order Comment: Speci men Type: BLOOD SPECIMEN Ordering Facility: [facility] Address: [address] [place] [address] Performed By: #### 5 7021-8 #### [facility] CLIA [id number] [address] [place] [address] [facility] WBC (Bld) [#/Vol] 4.10 10*3/uL Normal 3.70-11.00 [facility] Comment on above: Order Comment: Speci men Type: BLOOD SPECIMEN Ordering Facility: [facility] Address: [address] [place] [address] Performed By: #### 5 7021-8 #### [facility] CLIA [id number] [address] [place], [place] [address] [facility] CNOVon 02-12-2024 CNOV Office Visit (FAMMAS ) KATRINA SERRANO ([id number]) 1955 F Date Time Provider Department 02/12/24 11:10 AM DENNIS MARCIAL During your visit today, we recorded the following information about you: Temperature Pulse Respiration Blood pressure 97 degrees 86/minute 18/minute 112/74 Weight Height 87.5 kg 1.676 m Elvira Mcintosh LPN 02/12/2024 1:00 PM Signed Patient is in office for follow up for chronic medical conditions Patient is suffering from restless leg syndrome, and also states her Amitriptyline is no long effective for sleep Elvira Mcintosh LPN February 12, 2024 11:22 AM Dennis Marcial MD 02/12/2024 1:00 PM Signed Subjective Katrina Serrano is a 68 year old female.The patient presents today for follow-up for multiple medical problems. See list. Her chronic medical problems have been stable. Her blood pressure is under good control. She has been having increased restless leg syndrome symptoms. She has been taking amitriptyline for sleep this has been somewhat helpful for sleep but not for her RLS symptoms. Review of Systems Constitutional: Negative. HENT: Negative. Eyes: Negative. Respiratory: Negative. Cardiovascular: Negative. Gastrointestinal: Negative. Endocrine: Negative. Genitourinary: Negative. Musculoskeletal: Negative. Skin: Negative. Allergic/Immunologic: Negative. Neurological: Negative. Hematological: Negative. Psychiatric/Behavioral : Negative. PAST SURGICAL HISTORY Procedure Laterality Date BACK SURGERY HX x 3 COLONOSCOPY FLX DX W/COLLJ SPEC WHEN PFRMD 02/04/2021 COLSC FLX W/RMVL OF TUMOR POLYP LESION SNARE TQ 08/07/2008 EGD TRANSORAL BIOPSY SINGLE/MULTIPLE 06/16/2010 EGD W/O BRSH SPEC VARICIES INJ 11/17/2021 EXC NEUROMA HAND/FOOT XCP DIGITAL NERVE HERNIA REPAIR HX NEUROPLASTY AND/TRANSPOS MEDIAN NRV CARPAL TUNNE Bilateral Carpal tunnel decomp PAST SURGICAL HISTORY OF 03/13/2020 MEDIASTINOSCOPY W/LYMPH NODE BIOPSY REPR DURAL/CSF LEAK W LAMINECTOMY RMVL LUNG OTHER THAN PNEUMONECTOMY 1 LOBE LOBECT Right 06/22/2020 Thoracotomy, right middle lobectomy, mediastinal lymph node dissection for lung cancer SIGMOIDOSCOPY FLX DX W/COLLJ SPEC BR/WA IF PFRMD 1998 Sigmoidoscopy TONSILLECTOMY PRIMARY/SECONDARY Tonsillectomy 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 Microscopic colitis Other malaise and fatigue Paroxysmal atrial fibrillation (HCC) Shortness of breath Unspecified constipation FAMILY HISTORY Problem Relation Age of Onset other (throat cancer) Mother Heart Father Skin Cancer Brother COPD Brother Skin Cancer Brother Diabetes Son Colon Cancer No Family History Social History Tobacco Use Smoking status: Former Current packs/day: 0.00 Average packs/day: 1 pack/day for 30.0 years (30.0 ttl pk-yrs) Types: Cigarettes Start date: 03/24/1970 Quit date: 03/24/2000 Years since quittin.9 Smokeless tobacco: Never Vaping Use Vaping status: Never Used Substance Use Topics Alcohol use: No Drug use: Never ALLERGIES No Known Allergies MEDICATIONS: MYRBETRIQ 50 mg Tb24 Take 50 mg by mouth once daily. sertraline (ZOLOFT) 100 mg tablet Take 1 tablet by mouth once daily. XARELTO 20 mg tablet Take 1 tablet by mouth once daily. traMADol (ULTRAM) 50 mg tablet Take 1 tablet by mouth every 6 hours as needed for pain for up to 90 days. simvastatin (ZOCOR) 20 mg tablet Take 1 tablet by mouth daily at bedtime. OXYGEN, HOME THERAPY, Inhale 3 L/min as instructed as directed. hydrOXYchloroQUINE (PLAQUENIL) 200 mg tablet Take 200 mg by mouth twice daily. albuterol HFA (PROVENTIL HFA, VENTOLIN HFA) 90 mcg/actuation inhaler Inhale 2 Puffs as instructed every 4 hours as needed for wheezing/shortness of breath. ferrous sulfate (IRON ORAL) Take 2 tablets by mouth once daily. Lactobacillus acidophilus (PROBIOTIC ORAL) Take 1 tablet by mouth once daily. cholecalciferol, vitamin D3, (VITAMIN D3 ORAL) Take 1 tablet by mouth once daily. calcium carbonate/vitamin D3 (OS-TESSY 500 + D3 ORAL) Take 1 tablet by mouth once daily. alendronate (FOSAMAX) 70 mg tablet Take 1 tablet by mouth one time a week. In am with glass of water, on a empty stomach, nothing by mouth or lying down for 30 minutes metoprolol tartrate, short acting, (LOPRESSOR) 25 mg tablet Take 0.5 tablets by mouth two times a day. pantopra (more content not included)... Normal [facility] Iron and Iron binding capaci ty panelon 02-12-2024 Iron [Mass/Vol] 87 ug/dL 50 - 170 ug/dL [facility] Comment on above: Patients treated wit h metal-binding drugs (e.g.deferoxamine) may have depressed iron values, as chelated iron may not properly react in the Siemens iron assay. Iron binding capacity [Mass/Vol] 304 ug/dL 221 - 481 ug/dL [facility] Iron/TIBC [Molar ratio] 28.6 % 22.0 - 44.0 % [facility] Iron [Mass/Vol] 87 ug/dL Normal 50-170 [facility] Comment on above: Order Comment: Suma cho Type: BLOOD SPECIMENOrdering Facility: [facility] Address: [address] [place] [address] Result Comment: Rose ents treated with metal-binding drugs (e.g.deferoxamine) may have depressed iron values, as chelated iron may not properly react in the Siemens iron assay. Performed By: #### 1 9123-9, 53316-8 ####[facility] LABORATORYCLIA [id number] [place] [address] [place] Iron binding capacity [Mass/Vol] 304 ug/dL Normal 221-481 [facility] Comment on above: Order Comment: Suma cho Type: BLOOD SPECIMENOrdering Facility: [facility] Address: [address] [place] [address] Performed By: #### 1 9123-9, 28117-4 ####[facility] LABORATORYCLIA [id number] [address] STATES OF [facility] Iron/TIBC [Molar ratio] 28.6 % Normal 22.0-44.0 [facility] Comment on above: Order Comment: Suma cho Type: BLOOD SPECIMENOrdering Facility: [facility] Address: [address] [facility] [address] Performed By: #### 1 9123-9, 85339-9 ####[facility] LABORATORYCLIA [id number] [place] [address] [place] MAGNESIUMon 02-12-2024 Magnesium [Mass/Vol] 1.8 mg/dL 1.6 - 2 .6 mg/dL [facility] Magnesium SerPl-mCncon 02-11 Magnesium [Mass/Vol] 1.8 mg/dL Normal 1.6-2.6 [facility] Comment on above: Order Comment: Speci men Type: BLOOD SPECIMENOrdering Facility: [facility] Address: [address] [place], [place] [address] [address] Performed By: #### 1 9123-9, 38175-4 ####[facility] LABORATORYCLIA [id number] [place] [address] [place] No Panel Informationon 02-11 Interpretation and review of laboratory results Normal [facility] CNPNon 02-08-2024 CNPN Telephone (PULMWS) KATRINA SERRANO ([id number]) 1955 F Date Time Provider Department 02/08/24 OSCAR MIRELES PULMWS During your visit today, we recorded the following information about you: Eden Juan MA 02/08/2024 11:52 AM Signed Pt calling to inquire about getting pulmonary surgical clearance for insertion of stimulator implant for pain. [facility]. Does pt need appt to be cleared? Any additional testing? CASTILLO 12/2023 Last Oximetry with ambulation 12/2022 Please review and advise. NEYDA Matta Kathleen, LPN 02/08/2024 12:07 PM Signed Surgical clearance form from [facility] currently in provider's mailbox for review. SKYE Garcia Kathleen, LPN 02/12/2024 9:59 AM Signed Faxed Maki Mackay LPN Allergies As of Date: 02/08/2024 (No Known Allergies) Date Reviewed: 01/20/2024 Reviewed by: Marycarmen Yates MA - Fully Assessed Reason for Visit: Patient Question [1477] Prescriptions as of 02/12/2024 - sertraline (ZOLOFT) 100 mg tablet Take 1 tablet by mouth once daily. - XARELTO 20 mg tablet Take 1 tablet by mouth once daily. - traMADol (ULTRAM) 50 mg tablet Take 1 tablet by mouth every 6 hours as needed for pain for up to 90 days. - traMADol (ULTRAM) 50 mg tablet Take 50 mg by mouth every 6 hours as needed for pain. - predniSONE (DELTASONE) 20 mg tablet Take two daily for 5 days. - simvastatin (ZOCOR) 20 mg tablet Take 1 tablet by mouth daily at bedtime. - apixaban (ELIQUIS) 5 mg tab(s) Take 5 mg by mouth two times a day. - umeclidinium-vilantero l (ANORO ELLIPTA) 62.5-25 mcg/actuation inhaler Inhale 1 Inhalation as instructed once daily. - OXYGEN, HOME THERAPY, Inhale 3 L/min as instructed as directed. - alendronate (FOSAMAX) 70 mg tablet Take 1 tablet by mouth one time a week. In am with glass of water, on a empty stomach, nothing by mouth or lying down for 30 minutes - pantoprazole DR (PROTONIX) 40 mg tablet Take 1 tablet by mouth once daily. - hydrOXYchloroQUINE (PLAQUENIL) 200 mg tablet Take 200 mg by mouth twice daily. - amitriptyline (ELAVIL) 50 mg tablet Take 1 tablet by mouth daily at bedtime. - metoprolol tartrate, short acting, (LOPRESSOR) 25 mg tablet Take 0.5 tablets by mouth twice daily. - albuterol HFA (PROVENTIL HFA, VENTOLIN HFA) 90 mcg/actuation inhaler Inhale 2 Puffs as instructed every 4 hours as needed for wheezing/shortness of breath. - ferrous sulfate (IRON ORAL) Take 2 tablets by mouth once daily. - Lactobacillus acidophilus (PROBIOTIC ORAL) Take 1 tablet by mouth once daily. - cholecalciferol, vitamin D3, (VITAMIN D3 ORAL) Take 1 tablet by mouth once daily. - calcium carbonate/vitamin D3 (OS-TESSY 500 + D3 ORAL) Take 1 tablet by mouth once daily. Problem List As Of Date 02/08/2024 Noted Resolved Dysphagia [R13.10] CHEST PAIN NOS [R07.9] SHORTNESS OF BREATH [R06.02] MALAISE AND FATIGUE NEC [R53.81, R53.83] Tobacco use disorder [F17.200] 09/12/2022 Recurrent major depressive disorder, in remissi* LUMB/LUMBOSAC DISC DEGEN [M51.379] ESOPHAGEAL REFLUX [K21.9] LUMBAGO [M54.50] BENIGN NEOPLASM LG BOWEL [D12.6] 08/07/2008 CONSTIPATION NOS [K59.00] 08/07/2008 Diarrhea [R19.7] 04/06/2009 02/04/2021 Microscopic colitis [K52.839] Acute gastritis without mention of hemorrhage [*06/16/2010 Lung nodule [R91.1] 03/13/2020 Lymphadenopathy, mediastinal [R59.0] 03/13/2020 Former smoker [Z87.891] 03/13/2020 Primary cancer of right lower lobe of lung (HCC*03/24/2020 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 Hypomagnesemia [E83.42] 05/11/2020 Paroxysmal atrial fibrillation (HCC) [I48.0] 06/22/2020 Pain, postoperative, acute [G89.18] 06/22/2020 Discharge planning issues [Z75.8] 06/22/2020 NSCLC of right lung (HCC) [C34.91] 06/22/2020 SERENA (acute kidney injury) (HCC) [N17.9] 06/23/2020 Infected tooth [K04.7] 06/23/2020 Malignant neoplasm of unspecified part of unspe*08/21/2020 09/10/2021 Centrilobular emphysema (HCC) [J43.2] 09/10/2021 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] 09/10/2021 Iron deficiency anemia secondary to inadequate *10/12/2021 Stage 3b chronic kidney disease (HCC) [N18.32] Malignant neoplasm of lung (HCC) [C34.90] 05/25/2020 09/12/2022 Osteoarthrosis [M19.90] 03/08/2017 Osteoporosis [M81.0] 03/08/2017 Irritable bowel syndrome [K58.9] 07/08/2022 Insomnia [G47.00] 05/25/2020 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 Normal [facility] KATR[facility] SERR[facility]O ([id number]) 1955 F Date Time Provider Department 01/25/24 DENNIS MARCIAL During your visit today, we recorded the following information about you: Nayla Barber 01/25/2024 3:24 PM Signed Patient is requesting a return call regarding her Zoloft, states it was not sent in correctly to [facility] and she is about to run out. Elvira Mcintosh LPN 01/26/2024 9:11 AM Signed Patient phoned office again in regards to a problem with her Zoloft. Patient states that medication was increased at last visit and now she does not have enough medication In last chart note it is stated that patient went from taking 50 mg BID to 100 mg daily. Patient stated that she has been taking 100 mg BID and has now run out of medication Patient then asked if she should stop taking medication, this nurse advised patient not to stop medication, to wait to see what Dr. Marcial would like her to do. Please advise on dosage patient should be taking Elvira Mcintosh LPN January 26, 2024 9:09 AM Elvira Mcintosh LPN 01/29/2024 4:55 PM Signed Patient notified Elvira Mcintosh LPN January 29, 2024 4:55 PM Allergies As of Date: 01/25/2024 (No Known Allergies) Date Reviewed: 01/20/2024 Reviewed by: Marycarmen Yates MA - Fully Assessed Reason for Visit: Medication Problem [65] Order(s):sertraline (ZOLOFT) 100 mg tabletTake 1 tablet by mouth once daily.Disp: 90 tabletRfl: 3 Prescriptions as of 01/29/2024 - sertraline (ZOLOFT) 100 mg tablet Take 1 tablet by mouth once daily. - XARELTO 20 mg tablet Take 1 tablet by mouth once daily. - traMADol (ULTRAM) 50 mg tablet Take 1 tablet by mouth every 6 hours as needed for pain for up to 90 days. - traMADol (ULTRAM) 50 mg tablet Take 50 mg by mouth every 6 hours as needed for pain. - predniSONE (DELTASONE) 20 mg tablet Take two daily for 5 days. - simvastatin (ZOCOR) 20 mg tablet Take 1 tablet by mouth daily at bedtime. - apixaban (ELIQUIS) 5 mg tab(s) Take 5 mg by mouth two times a day. - umeclidinium-vilantero l (ANORO ELLIPTA) 62.5-25 mcg/actuation inhaler Inhale 1 Inhalation as instructed once daily. - OXYGEN, HOME THERAPY, Inhale 3 L/min as instructed as directed. - alendronate (FOSAMAX) 70 mg tablet Take 1 tablet by mouth one time a week. In am with glass of water, on a empty stomach, nothing by mouth or lying down for 30 minutes - pantoprazole DR (PROTONIX) 40 mg tablet Take 1 tablet by mouth once daily. - hydrOXYchloroQUINE (PLAQUENIL) 200 mg tablet Take 200 mg by mouth twice daily. - amitriptyline (ELAVIL) 50 mg tablet Take 1 tablet by mouth daily at bedtime. - metoprolol tartrate, short acting, (LOPRESSOR) 25 mg tablet Take 0.5 tablets by mouth twice daily. - albuterol HFA (PROVENTIL HFA, VENTOLIN HFA) 90 mcg/actuation inhaler Inhale 2 Puffs as instructed every 4 hours as needed for wheezing/shortness of breath. - ferrous sulfate (IRON ORAL) Take 2 tablets by mouth once daily. - Lactobacillus acidophilus (PROBIOTIC ORAL) Take 1 tablet by mouth once daily. - cholecalciferol, vitamin D3, (VITAMIN D3 ORAL) Take 1 tablet by mouth once daily. - calcium carbonate/vitamin D3 (OS-TESSY 500 + D3 ORAL) Take 1 tablet by mouth once daily. Problem List As Of Date 01/25/2024 Noted Resolved Dysphagia [R13.10] CHEST PAIN NOS [R07.9] SHORTNESS OF BREATH [R06.02] MALAISE AND FATIGUE NEC [R53.81, R53.83] Tobacco use disorder [F17.200] 09/12/2022 Recurrent major depressive disorder, in remissi* LUMB/LUMBOSAC DISC DEGEN [M51.37] ESOPHAGEAL REFLUX [K21.9] LUMBAGO [M54.50] BENIGN NEOPLASM LG BOWEL [D12.6] 08/07/2008 CONSTIPATION NOS [K59.00] 08/07/2008 Diarrhea [R19.7] 04/06/2009 02/04/2021 Microscopic colitis [K52.839] Acute gastritis without mention of hemorrhage [*06/16/2010 Lung nodule [R91.1] 03/13/2020 Lymphadenopathy, mediastinal [R59.0] 03/13/2020 Former smoker [Z87.891] 03/13/2020 Primary cancer of right lower lobe of lung (HCC*03/24/2020 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 Hypomagnesemia [E83.42] 05/11/2020 Paroxysmal atrial fibrillation (HCC) [I48.0] 06/22/2020 Pain, postoperative, acute [G89.18] 06/22/2020 Discharge planning issues [Z75.8] 06/22/2020 NSCLC of right lung (HCC) [C34.91] 06/22/2020 SERENA (acute kidney injury) (HCC) [N17.9] 06/23/2020 Infected tooth [K04.7] 06/23/2020 Malignant neoplasm of unspecified part of unspe*08/21/2020 09/10/2021 Centrilobular emphysema (HCC) [J43.2] 09/10/2021 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 [facility] CNPN Telephone (INTMWS) KATRINA SERRANO ([id number]) 1955 F Date Time Provider Department 01/25/24 DENNIS MARCIAL INTMWS During your visit today, we recorded the following information about you: Omar Cruz, VANDANA 01/25/2024 10:11 AM Signed Patient phoned for urine cx results and given to patient. Patient was prescribed cephalexin AB and reports her s/s have improved. Allergies As of Date: 01/25/2024 (No Known Allergies) Date Reviewed: 01/20/2024 Reviewed by: Marycarmen Yates MA - Fully Assessed Reason for Visit: Results [95] Prescriptions as of 01/25/2024 - XARELTO 20 mg tablet Take 1 tablet by mouth once daily. - cephALEXin (KEFLEX) 500 mg capsule Take 1 capsule by mouth three times a day for 7 days. - traMADol (ULTRAM) 50 mg tablet Take 1 tablet by mouth every 6 hours as needed for pain for up to 90 days. - traMADol (ULTRAM) 50 mg tablet Take 50 mg by mouth every 6 hours as needed for pain. - predniSONE (DELTASONE) 20 mg tablet Take two daily for 5 days. - simvastatin (ZOCOR) 20 mg tablet Take 1 tablet by mouth daily at bedtime. - apixaban (ELIQUIS) 5 mg tab(s) Take 5 mg by mouth two times a day. - sertraline (ZOLOFT) 100 mg tablet Take 1 tablet by mouth once daily. - umeclidinium-vilantero l (ANORO ELLIPTA) 62.5-25 mcg/actuation inhaler Inhale 1 Inhalation as instructed once daily. - OXYGEN, HOME THERAPY, Inhale 3 L/min as instructed as directed. - alendronate (FOSAMAX) 70 mg tablet Take 1 tablet by mouth one time a week. In am with glass of water, on a empty stomach, nothing by mouth or lying down for 30 minutes - pantoprazole DR (PROTONIX) 40 mg tablet Take 1 tablet by mouth once daily. - hydrOXYchloroQUINE (PLAQUENIL) 200 mg tablet Take 200 mg by mouth twice daily. - amitriptyline (ELAVIL) 50 mg tablet Take 1 tablet by mouth daily at bedtime. - metoprolol tartrate, short acting, (LOPRESSOR) 25 mg tablet Take 0.5 tablets by mouth twice daily. - albuterol HFA (PROVENTIL HFA, VENTOLIN HFA) 90 mcg/actuation inhaler Inhale 2 Puffs as instructed every 4 hours as needed for wheezing/shortness of breath. - ferrous sulfate (IRON ORAL) Take 2 tablets by mouth once daily. - Lactobacillus acidophilus (PROBIOTIC ORAL) Take 1 tablet by mouth once daily. - cholecalciferol, vitamin D3, (VITAMIN D3 ORAL) Take 1 tablet by mouth once daily. - calcium carbonate/vitamin D3 (OS-TESSY 500 + D3 ORAL) Take 1 tablet by mouth once daily. Problem List As Of Date 01/25/2024 Noted Resolved Dysphagia [R13.10] CHEST PAIN NOS [R07.9] SHORTNESS OF BREATH [R06.02] MALAISE AND FATIGUE NEC [R53.81, R53.83] Tobacco use disorder [F17.200] 09/12/2022 Recurrent major depressive disorder, in remissi* LUMB/LUMBOSAC DISC DEGEN [M51.37] ESOPHAGEAL REFLUX [K21.9] LUMBAGO [M54.50] BENIGN NEOPLASM LG BOWEL [D12.6] 08/07/2008 CONSTIPATION NOS [K59.00] 08/07/2008 Diarrhea [R19.7] 04/06/2009 02/04/2021 Microscopic colitis [K52.839] Acute gastritis without mention of hemorrhage [*06/16/2010 Lung nodule [R91.1] 03/13/2020 Lymphadenopathy, mediastinal [R59.0] 03/13/2020 Former smoker [Z87.891] 03/13/2020 Primary cancer of right lower lobe of lung (HCC*03/24/2020 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 Hypomagnesemia [E83.42] 05/11/2020 Paroxysmal atrial fibrillation (HCC) [I48.0] 06/22/2020 Pain, postoperative, acute [G89.18] 06/22/2020 Discharge planning issues [Z75.8] 06/22/2020 NSCLC of right lung (HCC) [C34.91] 06/22/2020 SERENA (acute kidney injury) (HCC) [N17.9] 06/23/2020 Infected tooth [K04.7] 06/23/2020 Malignant neoplasm of unspecified part of unspe*08/21/2020 09/10/2021 Centrilobular emphysema (HCC) [J43.2] 09/10/2021 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] 09/10/2021 Iron deficiency anemia secondary to inadequate *10/12/2021 Stage 3b chronic kidney disease (HCC) [N18.32] Malignant neoplasm of lung (HCC) [C34.90] 05/25/2020 09/12/2022 Osteoarthrosis [M19.90] 03/08/2017 Osteoporosis [M81.0] 03/08/2017 Irritable bowel syndrome [K58.9] 07/08/2022 Insomnia [G47.00] 05/25/2020 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] 04/16/2019 Hypertension, essential [I10] 02/02/2022 Depression [F32.A] 03/08/2017 Degeneration of intervertebral disc [BUS0159] 07/08/2022 Contusion of knee and lower leg [S80.00XA, S80.*07/08/2022 Atherosclerosis of aorta (HCC) [I70.0] 07/08/2022 Restless leg syndrome [G25.81] 07/08/2022 Steatosis of liver [K76.0] 07/08/2022 Pancytopenia (HCC) [D61.818] 07/08/2022 Pure hypercholesterolemia, unspecified [E78.00] 03/30/2021 Radiation pneumonitis (HCC) [J70.0] 07/08/2022 Rib pain [R07.81] 07/08/2022 Sinusitis [J32.9] 07/08/2022 Stage III squamous cell carcinoma of lung (HCC)*07/08/2022 Transient hypotension [I95.9] 07/08/2022 Vitamin D deficiency [E55.9] 03/08/2017 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 [facility] KATRINA SERRANO ([id number]) 1955 F Date Time Provider Department 01/22/24 DENNIS MARCIAL During your visit today, we recorded the following information about you: Lamar Olivera LPN 01/22/2024 6:18 PM Signed Attempted to contact to verify Zoloft dose but I could not hear because she was in the car wash. Patient was agreeable to me calling her tomorrow at 330pm. Call ended. Lamar OliveraSKYE January 22, 2024 6:17 PM Allergies As of Date: 01/22/2024 (No Known Allergies) Date Reviewed: 01/20/2024 Reviewed by: Marycarmen Yates MA - Fully Assessed Reason for Visit: Orders [681] Cmt: Zoloft Clarification Prescriptions as of 01/22/2024 - XARELTO 20 mg tablet Take 1 tablet by mouth once daily. - cephALEXin (KEFLEX) 500 mg capsule Take 1 capsule by mouth three times a day for 7 days. - traMADol (ULTRAM) 50 mg tablet Take 1 tablet by mouth every 6 hours as needed for pain for up to 90 days. - traMADol (ULTRAM) 50 mg tablet Take 50 mg by mouth every 6 hours as needed for pain. - predniSONE (DELTASONE) 20 mg tablet Take two daily for 5 days. - simvastatin (ZOCOR) 20 mg tablet Take 1 tablet by mouth daily at bedtime. - apixaban (ELIQUIS) 5 mg tab(s) Take 5 mg by mouth two times a day. - sertraline (ZOLOFT) 100 mg tablet Take 1 tablet by mouth once daily. - umeclidinium-vilantero l (ANORO ELLIPTA) 62.5-25 mcg/actuation inhaler Inhale 1 Inhalation as instructed once daily. - OXYGEN, HOME THERAPY, Inhale 3 L/min as instructed as directed. - alendronate (FOSAMAX) 70 mg tablet Take 1 tablet by mouth one time a week. In am with glass of water, on a empty stomach, nothing by mouth or lying down for 30 minutes - pantoprazole DR (PROTONIX) 40 mg tablet Take 1 tablet by mouth once daily. - hydrOXYchloroQUINE (PLAQUENIL) 200 mg tablet Take 200 mg by mouth twice daily. - amitriptyline (ELAVIL) 50 mg tablet Take 1 tablet by mouth daily at bedtime. - metoprolol tartrate, short acting, (LOPRESSOR) 25 mg tablet Take 0.5 tablets by mouth twice daily. - albuterol HFA (PROVENTIL HFA, VENTOLIN HFA) 90 mcg/actuation inhaler Inhale 2 Puffs as instructed every 4 hours as needed for wheezing/shortness of breath. - ferrous sulfate (IRON ORAL) Take 2 tablets by mouth once daily. - Lactobacillus acidophilus (PROBIOTIC ORAL) Take 1 tablet by mouth once daily. - cholecalciferol, vitamin D3, (VITAMIN D3 ORAL) Take 1 tablet by mouth once daily. - calcium carbonate/vitamin D3 (OS-TESSY 500 + D3 ORAL) Take 1 tablet by mouth once daily. Problem List As Of Date 01/22/2024 Noted Resolved Dysphagia [R13.10] CHEST PAIN NOS [R07.9] SHORTNESS OF BREATH [R06.02] MALAISE AND FATIGUE NEC [R53.81, R53.83] Tobacco use disorder [F17.200] 09/12/2022 Recurrent major depressive disorder, in remissi* LUMB/LUMBOSAC DISC DEGEN [M51.37] ESOPHAGEAL REFLUX [K21.9] LUMBAGO [M54.50] BENIGN NEOPLASM LG BOWEL [D12.6] 08/07/2008 CONSTIPATION NOS [K59.00] 08/07/2008 Diarrhea [R19.7] 04/06/2009 02/04/2021 Microscopic colitis [K52.839] Acute gastritis without mention of hemorrhage [*06/16/2010 Lung nodule [R91.1] 03/13/2020 Lymphadenopathy, mediastinal [R59.0] 03/13/2020 Former smoker [Z87.891] 03/13/2020 Primary cancer of right lower lobe of lung (HCC*03/24/2020 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 Hypomagnesemia [E83.42] 05/11/2020 Paroxysmal atrial fibrillation (HCC) [I48.0] 06/22/2020 Pain, postoperative, acute [G89.18] 06/22/2020 Discharge planning issues [Z75.8] 06/22/2020 NSCLC of right lung (HCC) [C34.91] 06/22/2020 SERENA (acute kidney injury) (HCC) [N17.9] 06/23/2020 Infected tooth [K04.7] 06/23/2020 Malignant neoplasm of unspecified part of unspe*08/21/2020 09/10/2021 Centrilobular emphysema (HCC) [J43.2] 09/10/2021 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] 09/10/2021 Iron deficiency anemia secondary to inadequate *10/12/2021 Stage 3b chronic kidney disease (HCC) [N18.32] Malignant neoplasm of lung (HCC) [C34.90] 05/25/2020 09/12/2022 Osteoarthrosis [M19.90] 03/08/2017 Osteoporosis [M81.0] 03/08/2017 Irritable bowel syndrome [K58.9] 07/08/2022 Insomnia [G47.00] 05/25/2020 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] 04/16/2019 Hypertension, essential [I10] 02/02/2022 Depression [F32.A] 03/08/2017 Degeneration of intervertebral disc [LZQ4833] 07/08/2022 Contusion of knee and lower leg [S80.00XA, S80.*07/08/2022 Atherosclerosis of aorta (HCC) [I70.0] 07/08/2022 Restless leg syndrome [G25.81] 07/08/2022 Steatosis of liver [K76.0] 07/08/2022 Pancytopenia (HCC) [D61.818] 07/08/2022 Pure hypercholesterolemia, unspecified [E78.00] 03/30/2021 Radiation pneumonitis (HCC) [J70.0] 07/08/2022 Rib pain [R07.81] 07/08/2022 Sinusitis [J32.9] 07/08/2022 Stage III squamous cell carcinoma of lung (HCC)*07/08/2022 Transient hypotension [I95.9] 07/08/2022 Vitamin (more content not included)... Normal [facility] Bacteria Ur Culton 4 Bacteria identified Cx Nom (U) CULTURE, URINE: Mixed microbiota, including predominantly: ORGANISM ID: 1 50,000-<100,000 CFU/ml Escherichia coli ORGANISM ID: 1 (ESCHERICHIA COLI) -- ANTIBIOTIC INTERPRETATION JEANMARIE STATUS REFERENCE RANGE -- Ampicillin S 4 F Susceptible <=8 , Intermediate >8 , Resistant >16 Cefazolin S <=4 F Susceptible 0-16 , Intermediate <0 or >16 , Resistant >16 For uncomplicated urinary tract infections, cefazolin results can be used to predict susceptibility or resistance to cephalexin. Ceftriaxone S <=1 F Susceptible <=1 , Intermediate >1 , Resistant >=4 Cefepime S <=1 F Susceptible <=2 , Susceptible-Dose Dependent >2 , Resistant >=16 Ertapenem S <=0.5 F Susceptible <=0.5 , Intermediate >.5 , Resistant >1 Meropenem S <=0.25 F Susceptible <=1 , Intermediate >1 , Resistant >2 Ampicillin/Sulbact S <=2 F Susceptible <=8 , Intermediate >8 , Resistant >16 Piperacillin/Tazobac S <=4 F Susceptible <16 , Susceptible-Dose Dependent >=16 , Resistant >=32 Gentamicin S <=1 F Susceptible <=2 , Intermediate >2 , Resistant >=8 Tobramycin S <=1 F Susceptible <4 , Intermediate >=4 , Resistant >=8 Trimeth sulfameth S <=20 F Susceptible <=40 , Resistant >40 Ciprofloxacin S <=0.25 F Susceptible <0.5 , Intermediate >=.5 , Resistant >=1 Nitrofurantoin S <=16 F Susceptible <=32 , Intermediate >32 , Resistant >64 Abnormal [facility] Comment on above: Performed By: #### 6 30-[address] ####[facility] [id number] [address] [place] CNOVon 01-20-2024 CNOV Office Visit (UCWSTR ) KATRINA SERRANO ([id number]) 1955 F Date Time Provider Department 01/20/24 10:00 AM JASPREET CURTIS [facility] During your visit today, we recorded the following information about you: Temperature Pulse Respiration Blood pressure 96.6 degrees 78/minute 16/minute 112/64 Weight 87.2 kg Jaspreet Curtis, [email or web address] 01/20/2024 10:50 AM Signed Subjective HPI Katrinajoni Serrano is a 68 year old female who presents with bladder pressure and urgency for the past 3 days. She states it feels like she has to urinate then nothing comes out. She was able to urinate overnight. She denies fever, chills, nausea or vomiting. She complains of pelvic pressure. She has not taken any medication for her symptoms today. Review of Systems Constitutional: Negative for chills and fever. Respiratory: Negative. Cardiovascular: Negative. Gastrointestinal: Positive for abdominal pain (pelvic pressure). Negative for nausea and vomiting. Genitourinary: Positive for dysuria, frequency and urgency. Negative for hematuria. Musculoskeletal: Negative for back pain. BP 112/64 Pulse 78 Temp (!) 35.9 ?C (96.6 ?F) (Left Tympanic) Resp 16 Wt 87.2 kg (192 lb 3.9 oz) SpO2 96% BMI 31.03 kg/m? 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 Microscopic colitis Other malaise and fatigue Paroxysmal atrial fibrillation (HCC) Shortness of breath Unspecified constipation PAST SURGICAL HISTORY Procedure Laterality Date BACK SURGERY HX x 3 COLONOSCOPY FLX DX W/COLLJ SPEC WHEN PFRMD 02/04/2021 COLSC FLX W/RMVL OF TUMOR POLYP LESION SNARE TQ 08/07/2008 EGD TRANSORAL BIOPSY SINGLE/MULTIPLE 06/16/2010 EGD W/O BRSH SPEC VARICIES INJ 11/17/2021 EXC NEUROMA HAND/FOOT XCP DIGITAL NERVE HERNIA REPAIR HX NEUROPLASTY AND/TRANSPOS MEDIAN NRV CARPAL TUNNE Bilateral Carpal tunnel decomp PAST SURGICAL HISTORY OF 03/13/2020 MEDIASTINOSCOPY W/LYMPH NODE BIOPSY REPR DURAL/CSF LEAK W LAMINECTOMY RMVL LUNG OTHER THAN PNEUMONECTOMY 1 LOBE LOBECT Right 06/22/2020 Thoracotomy, right middle lobectomy, mediastinal lymph node dissection for lung cancer SIGMOIDOSCOPY FLX DX W/COLLJ SPEC BR/WA IF PFRMD 1998 Sigmoidoscopy TONSILLECTOMY PRIMARY/SECONDARY Tonsillectomy ALLERGIES Patient has no known allergies. MEDICATIONS XARELTO 20 mg tablet Take 1 tablet by mouth once daily. traMADol (ULTRAM) 50 mg tablet Take 1 tablet by mouth every 6 hours as needed for pain for up to 90 days. predniSONE (DELTASONE) 20 mg tablet Take two daily for 5 days. simvastatin (ZOCOR) 20 mg tablet Take 1 tablet by mouth daily at bedtime. sertraline (ZOLOFT) 100 mg tablet Take 1 tablet by mouth once daily. umeclidinium-vilantero l (ANORO ELLIPTA) 62.5-25 mcg/actuation inhaler Inhale 1 Inhalation as instructed once daily. OXYGEN, HOME THERAPY, Inhale 3 L/min as instructed as directed. alendronate (FOSAMAX) 70 mg tablet Take 1 tablet by mouth one time a week. In am with glass of water, on a empty stomach, nothing by mouth or lying down for [address] (PROTONIX) 40 mg tablet Take 1 tablet by mouth once daily. hydrOXYchloroQUINE (PLAQUENIL) 200 mg tablet Take 200 mg by mouth twice daily. amitriptyline (ELAVIL) 50 mg tablet Take 1 tablet by mouth daily at bedtime. metoprolol tartrate, short acting, (LOPRESSOR) 25 mg tablet Take 0.5 tablets by mouth twice daily. albuterol HFA (PROVENTIL HFA, VENTOLIN HFA) 90 mcg/actuation inhaler Inhale 2 Puffs as instructed every 4 hours as needed for wheezing/shortness of breath. ferrous sulfate (IRON ORAL) Take 2 tablets by mouth once daily. Lactobacillus acidophilus (PROBIOTIC ORAL) Take 1 tablet by mouth once daily. cholecalciferol, vitamin D3, (VITAMIN D3 ORAL) Take 1 tablet by mouth once daily. calcium carbonate/vitamin D3 (OS-TESSY 500 + D3 ORAL) Take 1 tablet by mouth once daily. cephALEXin (KEFLEX) 500 mg capsule Take 1 capsule by mouth three times a day for 7 days. traMADol (ULTRAM) 50 mg tablet Take 50 mg by mouth every 6 hours as needed for pain. apixaban (ELIQUIS) 5 mg tab(s) Take 5 mg by mouth two times a day. (Patient not taking: Reported on 01/20/2024) FAMILY HISTORY Problem Relation Age of Onset other (throat cancer) Mother Heart Father Skin Cancer Brother COPD Brother Skin Cancer Brother Diabetes Son Colon Cancer No Family History Socia (more content not included)... Normal [facility] UA DIP B/Oon 01-20-2024 Bilirubin Ql (U) Negative Neg [facility] Color/Appearance Yellow/Clear comment: [facility] Glucose Ql (U) Negative Neg mg/dL [facility] Hemoglobin Ql (U) Large Abnormal Neg [facility] Interpretation and review of laboratory results Abnormal [facility] Ketones Ql (U) Negative Neg [facility] Leukocytes Moderate Abnormal Neg [facility] Nitrite Ql (U) Negative Neg [facility] pH (U) 6.0 [pH] 4.5 - 8.0 [facility] Protein.monoclonal (U) [Mass/Vol] Negative Neg mg/dL [facility] Specific [place], Ur 1.0 Abnormal 1.005 - 1.030 [facility] Urobilinogen, Urine Negative Normal (<1.1) EU [facility] CNOVon 12-26-2023 CNOV Office Visit (PULMWS ) KATRINA SERRANO ([id number]) 1955 F Date Time Provider Department 12/26/23 10:30 AM OSCAR MIRELES PULMWS During your visit today, we recorded the following information about you: Pulse Respiration Blood pressure Weight 73/minute 16/minute 107/68 89.4 kg Maki Mackay LPN 12/26/2023 10:18 AM Signed Intake information documented in the prior visit with Dr. Steward today. Oscar Mireles MD 12/26/2023 1:32 PM Signed . Respiratory [place] Note Patient name: Katrina Serrano PCP: Dennis Marcial MD CC: cough/follow-up COPD HPI: Katrina Serrano 68 year old female former [id number] smoker, quitting in 1999 with PMH significant for COPD, nocturnal oxygen need, GERD, AF, CKD, and history of lung cancer. 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 Was on Durvalumab for 4 doses but discontinued due to severe colitis. Unfortunately surgery complicated by paralysis of right hemidiaphragm, required 3 L oxygen at night. Current inhaled therapy consists of Anoro Ellipta with as needed albuterol. Most recent chest CT shows radiation fibrosis and no evidence of cancer recurrence. Since CASTILLO she has had recent bronchitis with cough productive of large volumes of yellow phlegm and wheezing. No fevers, chills, chest pain or hemoptysis. She did not seek medical care and took efkh-cfw-oxrmrub Mucinex with some improvement in her symptoms however she has persistent coughing. Cough does not interfere with her sleep. Some persistent sputum production but not as severe as it was several weeks ago. DME: [employer] 3 L nocturnal DATA: Labs: Component Ref Range AND Units 2 mo ago (10/17/23) WBC 3.9 - 11 K/uL 5.2 RBC 4 - 6 M/uL 3.92 Abnormal HGB 14 - 16.5 g/dL 11.9 Abnormal HCT 39 - 55 % 37.5 Abnormal MCV 79 - 98 fL 95.7 MCH 25.4 - 34.6 pg 30.4 MCHC 30 - 36 g/dL 31.7 PLT 140 - 440 K/uL 252 MPV 7.4 - 10.4 fL 10.0 NEUT % 40 - 74 % 61.7 LYMPH % 20 - 30 % 25.9 MONO % 2 - 8 % 7.3 EOS % 1 - 3 % 4.1 Abnormal BASO % 0 - 1.5 % 0.6 NEUT ABS 1.9 - 8 K/uL 3.2 LYMPH ABS 1.2 - 4 K/uL 1.34 RDW-CV 11.7 - 15.0 % 13.2 RDW-SD 46.9 Immature Gran % % 0.400 Imaging / Diagnostic Studies: DATE OF EXAM: Dec 18 2023 10:55AM [facility] 0541 - CT CHEST WO IVCON / 1. Unchanged postsurgical and postradiation changes detailed above. No new or suspicious pulmonary nodules. No lymphadenopathy. I personally reviewed images which shows stable radiation fibrosis and no suspicious lesions PAST MEDICAL HISTORY No date: Acute gastritis without mention of hemorrhage No date: Arthritis No date: Benign neoplasm of colon No date: Centrilobular emphysema (HCC) No date: Chest pain, unspecified No date: CKD (chronic kidney disease) 10/20/2021: COVID No date: Degeneration of lumbar or lumbosacral intervertebral disc No date: Depression No date: Diaphragm paralysis No date: Dysphagia No date: Esophageal reflux No date: History of transfusion No date: Hypercholesterolemia 05/11/2020: Hypomagnesemia No date: Irritable bowel syndrome No date: Lumbago 03/24/2020: Metastasis to mediastinal lymph node (HCC) No date: Microscopic colitis No date: Other malaise and fatigue No date: Paroxysmal atrial fibrillation (HCC) 03/24/2020: Primary cancer of right lower lobe of lung (HCC) No date: Shortness of breath No date: Unspecified constipation ALLERGIES No Known Allergies traMADol (ULTRAM) 50 mg tablet Take 50 mg by mouth every 6 hours as needed for pain. predniSONE (DELTASONE) 20 mg tablet Take two daily for 5 days. simvastatin (ZOCOR) 20 mg tablet Take 1 tablet by mouth daily at bedtime. apixaban (ELIQUIS) 5 mg tab(s) Take 5 mg by mouth two times a day. sertraline (ZOLOFT) 100 mg tablet Take 1 tablet by mouth once daily. umeclidinium-vilantero l (ANORO ELLIPTA) 62.5-25 mcg/actuation inhaler Inhale 1 Inhalation as instructed once daily. OXYGEN, HOME THERAPY, Inhale as instructed as directed. alendronate (FOSAMAX) 70 mg tablet Take 1 tablet by mouth one time a week. In am with glass of water, on a empty stomach, nothing by mouth or lying down for [address] (PROTONIX) 40 mg tablet Take 1 tablet by mouth once daily. hydrOXYchloroQUINE (PLAQUENIL) 200 mg tablet Take 200 mg by mouth twice daily. amitriptyline (ELAVIL) 50 mg tablet Take 1 tablet by mouth daily at bedtime. metoprolol tartrate, short acting, (LOPRESSOR) 25 mg tablet Take 0.5 tablets by mouth twice daily. albuterol HFA (PROVENTIL HFA, VENTOLIN HFA) 90 mcg/actuation inhaler Inhale 2 Puffs as instructed every 4 hours as needed for wheezing/shortness of breath. ferrous sulfate (more content not included)... Normal [facility] CNOVSPon 12-26-2023 OVS Visit (SP) Office ([place]) KATRINA SERRANO ([id number]) 1955 F Date Time Provider Department 12/26/23 10:00 AM SHANE STEWARD During your visit today, we recorded the following information about you: Temperature Pulse Blood pressure Weight 97.6 degrees 73/minute 107/68 89.4 kg Shane Steward MD 12/26/2023 10:29 AM Signed (Elements copied from my note datedFebruary 2023 , have been reviewed and updated where appropriate, and all reflect current assessment and medical decision making from today's encounter, December 26, 2023) HISTORY OF PRESENT ILLNESS: Katrina Serrano is a 67 year old female here for follow up. 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 She had a PET CT scan for evaluation of lung nodule on 02/04/2020. PET scan showed increased activity in the lateral right lower lobe lesion SUV 2.9. There was also increased activity in the precarinal level, mediastinum right thoracic prehilum area. SUV 3.2. No other evidence of metastatic disease. She saw Dr. Kira Toscano on 03/12/2020 for mediastinoscopy on 03/13/20 and possible robotic right lower lobe resection Her pathology unfortunately revealed metastatic adenocarcinoma at level 2 mediastinal lymph node. Treatment history: Neoadjuvant 4500 cGy in 25 fractions treating to the 44SBX21.4% isodose line with 6 MV and 7 tarango. IGRT with daily CBCTs. Concurrent chemotherapy with Cisplatin/Etoposide x 2 cycles ( 04/06/20 to 05/12/20 ) SURGICAL HX: 03/13/2020: Mediastinoscopy positive LN, PDL positive 100% 06/22/2020: Right thoracotomy, right middle lobectomy with mediastinal and hilar lymph node dissection, and vascularized pedicle tissue buttress of bronchial stump. [id number] Previous treatment: Durvalumab maintenance x 4 doses ( 09/03/20 - 11/05/20 ); discontinued because of colitis and diarrhea. Took months to resolve. Doing well. Reviewed anemia, she has renal insufficiency. Reviewed surveillance scan. CLINICAL IMPRESSION: History of adenocarcinoma lung neoadjuvant chemoRT, resection, then durvalumab x 2, DIMITRIS RECOMMENDATION/PLAN: 1. Follow expectantly, re scan in [address] chest every 6 months through Jun 2025, then yearly, or as clinically indicated Written and verbal health teaching given to patient, patient verbalizes understanding and agrees with treatment plan. PAST MEDICAL HISTORY No date: Acute gastritis without mention of hemorrhage No date: Arthritis No date: Benign neoplasm of colon No date: Centrilobular emphysema (HCC) No date: Chest pain, unspecified No date: CKD (chronic kidney disease) 10/20/2021: COVID No date: Degeneration of lumbar or lumbosacral intervertebral disc No date: Depression No date: Diaphragm paralysis No date: Dysphagia No date: Esophageal reflux No date: History of transfusion No date: Hypercholesterolemia 05/11/2020: Hypomagnesemia No date: Irritable bowel syndrome No date: Lumbago 03/24/2020: Metastasis to mediastinal lymph node (HCC) No date: Microscopic colitis No date: Other malaise and fatigue No date: Paroxysmal atrial fibrillation (HCC) 03/24/2020: Primary cancer of right lower lobe of lung (HCC) No date: Shortness of breath No date: Unspecified constipation PAST SURGICAL HISTORY No date: BACK SURGERY HX Comment: x 3 02/04/2021: COLONOSCOPY FLX DX W/COLLJ SPEC WHEN PFRMD 08/07/2008: COLSC FLX W/RMVL OF TUMOR POLYP LESION SNARE TQ 06/16/2010: EGD TRANSORAL BIOPSY SINGLE/MULTIPLE 11/17/2021: EGD W/O BRSH SPEC VARICIES INJ No date: EXC NEUROMA HAND/FOOT XCP DIGITAL NERVE No date: HERNIA REPAIR HX No date: NEUROPLASTY AND/TRANSPOS MEDIAN NRV CARPAL TUNNE; Bilateral Comment: Carpal tunnel decomp 03/13/2020: PAST SURGICAL HISTORY OF Comment: MEDIASTINOSCOPY W/LYMPH NODE BIOPSY No date: REPR DURAL/CSF LEAK W LAMINECTOMY 06/22/2020: RMVL LUNG OTHER THAN PNEUMONECTOMY 1 LOBE LOBECT; Right Comment: Thoracotomy, right middle lobectomy, mediastinal lymph node dissection for lung cancer 1998: SIGMOIDOSCOPY FLX DX W/COLLJ SPEC BR/WA IF PFRMD Comment: Sigmoidoscopy No date: TONSILLECTOMY HX No date: TONSILLECTOMY PRIMARY/SECONDARY Comment: Tonsillectomy FAMILY HISTORY Problem Relation Age of Onset other (throat cancer) Mother Heart Father Skin Cancer Brother COPD Brother Skin Cancer Brother Diabetes Son Colon Cancer No Family History Social History Tobacco Use Smoking status: Former Current packs/day: 0.00 Average packs/day: 1 pack/day for 30.0 years (30.0 ttl pk-yrs) Types: Cigarettes Start date: 03/24/1970 Quit date: 03/24/2000 Years since quittin.7 S (more content not included)... Normal [facility] Basic Metabolic Profile (BMP )on 12-19-2023 BUN/CRE 17.2 RATIO Normal 10-20 [facility] Comment on above: Performed By: #### L 100.0100, L500.4050 #### [facility] [address] [place], [address] CA,Total 9.5 mg/dL Normal 8.5-10.1 [facility] Comment on above: Performed By: #### L 100.0100, L500.4050 #### [facility] [address] [place], [address] Chloride [Moles/Vol] 106 mmol/L Normal 98-107 [facility] Comment on above: Performed By: #### L 100.0100, L500.4050 #### [facility] [address] [place], [address] CO2 [Moles/Vol] 30.0 mmol/L Normal 21.0-32.0 [facility] Comment on above: Performed By: #### L 100.0100, L500.4050 #### [facility] [address] [place], [address] Creatinine [Mass/Vol] 1.28 mg/dL High 0.55-1.02 [facility] Comment on above: Result Comment: The validity of the calculated GFR GFRAA in patients over 70 years has not been determined. Clinical correlation is essential. Performed By: #### L 100.0100, L500.4050 #### [facility] [address] [place], [address] EST GFR - AA 53 mL/min Low >60 [facility] Comment on above: Result Comment: Afri can [place] GFR Calc Performed By: #### L 100.0100, L500.4050 #### [facility] [address] [place], [address] GAP 3 Low 5-15 [facility] Comment on above: Performed By: #### L 100.0100, L500.4050 #### [facility] [address] [place], [address] GFR/1.73 sq M.predicted among non-blacks MDRD (S/P/Bld) [Vol rate/Area] 44 mL/min/{1.73_m2} Low >60 [facility] Comment on above: Result Comment: Non- GFR Calc Performed By: #### L 100.0100, L500.4050 #### [facility] [address] [place], [address] Glucose [Mass/Vol] 105 mg/dL Normal 74-106 [facility] Comment on above: Result Comment: Fast ing Glucose result from 100 to 125 mg/dL suggests IMPAIRED HOMEOSTASIS per A.D.A. criteria. Performed By: #### L 100.0100, L500.4050 #### [facility] [address] [place], [address] Potassium [Moles/Vol] 3.9 mmol/L Normal 3.5-5.1 [facility] Comment on above: Performed By: #### L 100.0100, L500.4050 #### [facility] [address] [place], [address] Sodium [Moles/Vol] 139 mmol/L Normal 136-145 [facility] Comment on above: Performed By: #### L 100.0100, L500.4050 #### [facility] [address] [place], [address] Urea nitrogen [Mass/Vol] 22 mg/dL High 7-18 [facility] Comment on above: Performed By: #### L 100.0100, L500.4050 #### [facility] [address] [place], [address] CBC W/Diff, Automatedon 12-06 Absolute Lymph 1.24 X10 3/uL Normal 0.83-4.51 [facility] Comment on above: Performed By: #### L 100.0100, L500.2500, L501.9520 #### [facility] [address] [place], [address] Absolute Neut 2.9 X10 3/uL Normal 2.0-7.7 [facility] Comment on above: Performed By: #### L 100.0100, L500.2500, L501.9520 #### [facility] [address] [place], [address] Basophils/100 WBC (Bld) 0.6 % Normal 0-1 [facility] Comment on above: Performed By: #### L 100.0100, L500.2500, L501.9520 #### [facility] [address] [place], [address] Eosinophils/100 WBC (Bld) 4.3 % Normal 0-5 [facility] Comment on above: Performed By: #### L 100.0100, L500.2500, L501.9520 #### [facility] [address] [place], [address] Erythrocyte distribution width (RBC) [Ratio] 13.1 % Normal 11.6-14.6 [facility] Comment on above: Performed By: #### L 100.0100, L500.2500, L501.9520 #### [facility] [address] [place], [address] Hematocrit (Bld) [Volume fraction] 36.8 % Low 37-47 [facility] Comment on above: Performed By: #### L 100.0100, L500.2500, L501.9520 #### [facility] [address] [place], [address] Hemoglobin (Bld) [Mass/Vol] 11.5 g/dL Low 12.0-15.0 [facility] Comment on above: Performed By: #### L 100.0100, L500.2500, L501.9520 #### [facility] [address] [place], [address] IG% 0.400 Normal 0.0-0.9 [facility] Comment on above: Result Comment: IG% - Immature Granulocytes (promyelocytes, myelocytes and metamyelocytes) > 1% indicates that a LEFT SHIFT is Present. Performed By: #### L 100.0100, L500.2500, L501.9520 #### [facility] [address] [place], [address] Lymphocytes/100 WBC (Bld) 26.5 % Normal 19-41 [facility] Comment on above: Performed By: #### L 100.0100, L500.2500, L501.9520 #### [facility] [address] [place], [address] MCH (RBC) [Entitic mass] 30.2 pg Normal 27.0-32.0 [facility] Comment on above: Performed By: #### L 100.0100, L500.2500, L501.9520 #### [facility] [address] [place], [address] MCHC (RBC) [Mass/Vol] 31.3 g/dL Low 32-36 [facility] Comment on above: Performed By: #### L 100.0100, L500.2500, L501.9520 #### [facility] [address] [place], [address] MCV (RBC) [Entitic vol] 96.6 fL Normal 81-99 [facility] Comment on above: Performed By: #### L 100.0100, L500.2500, L501.9520 #### [facility] [address] [place], [address] Monocytes/100 WBC (Bld) 6.8 % Normal 0-10 [facility] Comment on above: Performed By: #### L 100.0100, L500.2500, L501.9520 #### [facility] [address] [place], [address] Neutrophils/100 WBC (Bld) 61.4 % Normal 47-70 [facility] Comment on above: Performed By: #### L 100.0100, L500.2500, L501.9520 ####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 PAIN NOS [R07.9] SHORTNESS OF BREATH [R06.02] MALAISE AND FATIGUE NEC [R53.81, R53.83] Tobacco use disorder [F17.200] 09/12/2022 Recurrent major depressive disorder, in remissi* LUMB/LUMBOSAC DISC DEGEN [M51.37] ESOPHAGEAL REFLUX [K21.9] LUMBAGO [M54.50] BENIGN NEOPLASM LG BOWEL [D12.6] 08/07/2008 CONSTIPATION NOS [K59.00] 08/07/2008 Diarrhea [R19.7] 04/06/2009 02/04/2021 Microscopic colitis [K52.839] Acute gastritis without mention of hemorrhage [*06/16/2010 Lung nodule [R91.1] 03/13/2020 Lymphadenopathy, mediastinal [R59.0] 03/13/2020 Former smoker [Z87.891] 03/13/2020 Primary cancer of right lower lobe of lung (HCC*03/24/2020 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 Hypomagnesemia [E83.42] 05/11/2020 Paroxysmal atrial fibrillation (HCC) [I48.0] 06/22/2020 Pain, postoperative, acute [G89.18] 06/22/2020 Discharge planning issues [Z75.8] 06/22/2020 NSCLC of right lung (HCC) [C34.91] 06/22/2020 SERENA (acute kidney injury) (HCC) [N17.9] 06/23/2020 Infected tooth [K04.7] 06/23/2020 Malignant neoplasm of unspecified part of unspe*08/21/2020 09/10/2021 Centrilobular emphysema (HCC) [J43.2] 09/10/2021 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] 09/10/2021 Iron deficiency anemia secondary to inadequate *10/12/2021 Stage 3b chronic kidney disease (HCC) [N18.32] Malignant neoplasm of lung (HCC) [C34.90] 05/25/2020 09/12/2022 Osteoarthrosis [M19.90] 03/08/2017 Osteoporosis [M81.0] 03/08/2017 Irritable bowel syndrome [K58.9] 07/08/2022 Insomnia [G47.00] 05/25/2020 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 [facility] CNOVon 08-23-2023 CNOV Office Visit (FAMMAS ) KATRINA SERRANO ([id number]) 1955 F Date Time Provider Department 08/23/23 10:30 AM DENNIS MARCIAL During your visit today, we recorded the following information about you: Temperature Pulse Respiration Blood pressure 98 degrees 82/minute 18/minute 128/84 Weight Height 87.5 kg 1.676 m Elvira Mcintosh LPN 08/23/2023 1:07 PM Signed Patient is in office for 6 month exam. Patient has been experiencing increased short term memory loss for approximately 4 months. Folstein: (Result scanned into chart) Elvira Mcintosh LPN August 23, 2023 11:02 AM Dennis Marcial MD 08/23/2023 1:07 PM Signed This note was created using [employer]. Subjective Katrina Serrano is a 67 year old female.The patient presents today for follow-up for multiple medical problems. See list. Her chronic medical problems have been stable. Her blood pressure is under good control. She is feeling increased stress. She is more anxious. She would like to increase her Zoloft. Still having some occasional irritable bowel symptoms.. She continues to have pain in her lower back. Review of Systems Constitutional: Negative. HENT: Negative. Eyes: Negative. Respiratory: Negative. Cardiovascular: Negative. Gastrointestinal: Negative. Endocrine: Negative. Genitourinary: Negative. Musculoskeletal: Negative. Skin: Negative. Allergic/Immunologic: Negative. Neurological: Negative. Hematological: Negative. Psychiatric/Behavioral : Negative. Objective BP 128/84 (BP Site: Left Arm, BP Position: Sitting, BP Cuff Size: Regular Adult) Pulse 82 Temp 36.7 ?C (98 ?F) (Temporal) Resp 18 Ht 167.6 cm (5' 6) Wt 87.5 kg (192 lb 12.8 oz) SpO2 96% BMI 31.12 kg/m? Physical Exam Vitals reviewed. Constitutional: Appearance: Normal appearance. HENT: Head: Normocephalic and atraumatic. Nose: Nose normal. Eyes: Extraocular Movements: Extraocular movements intact. Pupils: Pupils are equal, round, and reactive to light. Cardiovascular: Rate and Rhythm: Normal rate and regular rhythm. Pulmonary: Effort: Pulmonary effort is normal. Breath sounds: Normal breath sounds. Abdominal: General: Bowel sounds are normal. Palpations: Abdomen is soft. Musculoskeletal: General: Normal range of motion. Cervical back: Normal range of motion and neck supple. Skin: General: Skin is warm and dry. Capillary Refill: Capillary refill takes less than 2 seconds. Neurological: General: No focal deficit present. Mental Status: She is alert and oriented to person, place, and time. Mental status is at baseline. Psychiatric: Mood and Affect: Mood normal. Behavior: Behavior normal. Assessment and Plan Encounter Diagnosis ICD-10-CM 1. Hypertension, essential I10 COMPREHENSIVE METABOLIC PANEL 2. Degeneration of lumbar or lumbosacral intervertebral disc M51.37 traMADol (ULTRAM) 50 mg tablet 3. Pure hypercholesterolemia E78.00 LIPID PANEL BASIC COMPREHENSIVE METABOLIC PANEL 4. 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 Pancytopenia ([facility]) D61.818 6. Recurrent major depressive disorder, in remission ([facility]) F33.40 7. Paroxysmal atrial fibrillation ([facility]) I48.0 8. Atherosclerosis of aorta ([facility]) I70.0 9. ACI (adrenal cortical insufficiency) ([facility]) E27.40 10. Stage 3b chronic kidney disease ([facility]) N18.32 11. Stage 3 chronic kidney disease, unspecified whether stage 3a or 3b CKD ([facility]) N18.30 12. Iron deficiency anemia, unspecified iron deficiency anemia type D50.9 IRON AND TIBC COMPLETE BLOOD COUNT AND DIFFERENTIAL 13. Pure hypercholesterolemia, unspecified E78.00 14. Irritable bowel syndrome with diarrhea K58.0 Continue present medications. Check labs as above. Monitor blood pressure regularly. Exercise as tolerated. Maintain good diet. Follow-up in 6 months. 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] Pancytopenia (HCC) [D61.818] Recurrent major depressive disorder, in remission (HCC) [F33.40] Paroxysmal atrial fibrillation (HCC) [I48.0] Atherosclerosis of aorta (HCC) [I70.0] ACI (adrenal cortical insufficiency) (HCC) [E27.40] Stage 3b chronic kidney disease (HCC) [N18.32] Stage 3 chronic kidney disease, unspecified whether stage 3a or 3b CKD (HCC) [N18.30] Iron deficiency anemia, unspecified iron deficiency anemia type [D50.9] Pure hypercholesterolemia, unspecified [E78.00] Irritable bowel syndrome with diarrhea [K58.0] Order(s):traMADol (ULTRAM) 50 mg tabletTake 1 tablet (more content not included)... Normal [facility] CBC W Auto Differential pane l (Bld)on 06-21-2023 Basophils (Bld) [#/Vol] 0.05 10*3/uL <0.11 k/uL [facility] Basophils/100 WBC (Bld) 0.7 % [facility] Differential cell count method Nom (Bld) Auto [facility] Eosinophils (Bld) [#/Vol] 0.14 10*3/uL <0.46 k/uL [facility] Eosinophils/100 WBC (Bld) 2.0 % [facility] Erythrocyte distribution width (RBC) [Ratio] 12.7 % 11.5 - 15.0 % [facility] Hematocrit (Bld) [Volume fraction] 36.9 % 36.0 - 46.0 % [facility] Hemoglobin (Bld) [Mass/Vol] 12.0 g/dL 11.5 - 15.5 g/dL [facility] Immature granulocytes (Bld) [#/Vol] <0.10 k/uL [facility] Immature granulocytes/100 WBC (Bld) 0.3 % [facility] Lymphocytes (Bld) [#/Vol] 1.45 10*3/uL 1.00 - 4.00 k/uL [facility] Lymphocytes/100 WBC (Bld) 21.0 % [facility] MCH (RBC) [Entitic mass] 29.9 pg 26.0 - 34.0 pg [facility] MCHC (RBC) [Mass/Vol] 32.5 g/dL 30.5 - 36.0 g/dL [facility] MCV (RBC) [Entitic vol] 91.8 fL 80.0 - 100.0 fL [facility] Monocytes (Bld) [#/Vol] 0.57 10*3/uL <0.87 k/uL [facility] Monocytes/100 WBC (Bld) 8.2 % [facility] Neutrophils (Bld) [#/Vol] 4.69 10*3/uL 1.45 - 7.50 k/uL [facility] Neutrophils/100 WBC (Bld) 67.8 % [facility] Nucleated RBC (Bld) [#/Vol] <0.01 k/uL [facility] Nucleated RBC/100 WBC (Bld) [Ratio] 0.0 /100 WBC [facility] Platelet mean volume (Bld) [Entitic vol] 9.7 fL 9.0 - 12.7 fL [facility] Platelets (Bld) [#/Vol] 290 10*3/uL 150 - 400 k/uL [facility] RBC (Bld) [#/Vol] 4.02 10*6/uL 3.90 - 5.2 0 m/uL [facility] WBC (Bld) [#/Vol] 6.92 10*3/uL 3.70 - 11.00 k/uL [facility] FERRITIN BLDon 06-21-2023 Ferritin [Mass/Vol] 48.7 ng/mL 14.7 - 205.1 ng/mL [facility] Iron and Iron binding capaci ty panelon 06-21-2023 Iron [Mass/Vol] 104 ug/dL 41 - 186 ug/dL [facility] Iron binding capacity [Mass/Vol] 347 ug/dL 232 - 386 ug/dL [facility] Iron/TIBC [Molar ratio] 30.0 % 15.0 - 57.0 % [facility] VITAMIN B12 BLOODon 06-21-19 Cobalamin (Vitamin B12) [Mass/Vol] 293 pg/mL 232 - 1,245 pg/mL [facility] ANES POSTPROC EVALon 024 ANES POSTPROC EVAL HNO ID: [id number] Author: PHANI HOLDRE DO Service: Anesthesiology Author Type: Physician Type: Anesthesia Postprocedure Evaluation Filed: 06/19/2023 11:45 Note Text: POST ANESTHESIA EVALUATION NOTE : 1955 Procedure Summary Date: 06/19/23 Room / Location: [facility] Anesthesia Start: 957 Anesthesia Stop: 1022 Procedure: COLONOSCOPY DIAGNOSTIC Diagnosis: C. difficile diarrhea Iron deficiency anemia, unspecified iron deficiency anemia type Elevated fecal calprotectin (Chronic diarrhea) Scheduled Providers: Hunter Posadas MD Responsible Provider: Phani Holder DO Anesthesia Type: MAC ASA Status: 3 Anesthesia Type: MAC Last Vitals Vitals Value Taken Time BP 102/70 06/19/23 1116 Temp 36.7 ?C (98 ?F) 06/19/23 1023 Pulse 68 06/19/23 1116 Resp 14 06/19/23 1116 SpO2 98 % 06/19/23 1116 Post Anesthesia Patient Status Anticipated Disposition: phase 2 then home. Neurological Status: aware and responsive. Pulmonary Status: breathing comfortably on room air Airway Control: returned to baseline unsupported. Cardiovascular Status: stable. Pain Management: clinically adequate - multimodal analgesia pain management approach Postoperative Hydration: acceptable. Intraoperative Events: no significant anesthesia events Post Operative Nausea/Vomiting Status: no significant post operative nausea or vomiting Recommendation: continue current plan of care. Anesthesia Observations No Documentation SIGNATURE: Phani Holder DO PATIENT NAME: Katrina Serrano DATE: June 19, 2023 TIME: 11:45 AM CSN: [id number] [facility] ANES PRE-OPon 06-19-2023 ANES PRE-OP HNO ID: [id number] Author: PHANI HOLDER DO Service: Anesthesiology Author Type: Physician Type: Anesthesia Preprocedure Evaluation Filed: 06/19/2023 09:55 Note Text: ANESTHESIOLOGY DAY OF SURGERY NOTE : 1955 Procedure Information Date/Time: 06/19/23 0945 Scheduled providers: Hunter Posadas MD Procedure: COLONOSCOPY DIAGNOSTIC Location: [facility] Estimated body mass index is 29.86 kg/m? as calculated from the following: Height as of this encounter: 167.6 cm (5' 6). Weight as of this encounter: 83.9 kg (185 lb). Most recent hematocrit and potassium results: Hematocrit 37.2 01/30/2023 Potassium 4.2 01/30/2023 Relevant Problems CARDIO (+) Atherosclerosis of aorta (HCC) (+) Hypertension, essential (+) Paroxysmal atrial fibrillation (HCC) GI (+) Esophageal reflux -RENAL (+) SERENA (acute kidney injury) (HCC) (+) Stage 3 chronic kidney disease (HCC) (+) Steatosis of liver PULMONARY (+) Centrilobular emphysema (HCC) (+) NSCLC of right lung (HCC) (+) Shortness of breath Other (+) Lymphadenopathy, mediastinal (+) Metastasis to mediastinal lymph node (HCC) I - PHYSICAL EVALUATION AIRWAY Patient intubated: No. Tracheostomy tube not present Mallampati: II. TM distance: >3 FB. Neck ROM: full ROM without neurological symptoms. Mouth opening: adequate. Short neck: no. Thick neck: no DENTAL Dental findings: teeth intact. Additional exam findings: yes. CARDIOVASCULAR Normal cardiovascular observations. PULMONARY Normal pulmonary observations. II - ANESTHESIA PLAN ASA Score: 3 Anesthetic Plan: MAC NPO Status: adequate Anesthetic plan additional comments: randi held since 06/14. Beta Myah Monitoring Plan Monitoring plan: standard ASA. Post Procedure Analgesic Plan Postoperative analgesic plan: multimodal analgesia. Informed Consent Anesthetic risks, benefits, alternatives, personnel and consent discussed: yes. Patient / Responsible Libertarian agrees to proceed: yes Patient / Surrogate agrees to blood products: blood products not planned Significant changes in the patient condition since the History and Physical, not otherwise documented in primary service progress note: no. Vitals Value Taken Time BP 103/91 06/19/23 0849 Pulse 65 06/19/23 0849 Resp 16 06/19/23 0849 Temp 36.3 ?C (97.3 ?F) 06/19/23 0849 SpO2 94 % 06/19/23 0849 Outpatient Medications as of 06/19/2023 Medication Sig - traMADol (ULTRAM) 50 mg tablet Take 1 tablet by mouth every 6 hours as needed for pain for up to 90 days. - simvastatin (ZOCOR) 20 mg tablet Take 1 tablet by mouth daily at bedtime. - umeclidinium-vilantero l (ANORO ELLIPTA) 62.5-25 mcg/actuation inhaler Inhale 1 Inhalation as instructed once daily. - OXYGEN, HOME THERAPY, Inhale as instructed as directed. - alendronate (FOSAMAX) 70 mg tablet Take 1 tablet by mouth one time a week. In am with glass of water, on a empty stomach, nothing by mouth or lying down for 30 minutes - clonazePAM (KLONOPIN) 0.5 mg tablet Take 1 tablet by mouth twice daily as needed for up to 90 days. - pantoprazole DR (PROTONIX) 40 mg tablet Take 1 tablet by mouth once daily. - sertraline (ZOLOFT) 50 mg tablet Take 1 tablet by mouth twice daily. - hydrOXYchloroQUINE (PLAQUENIL) 200 mg tablet Take 200 mg by mouth twice daily. - metoprolol tartrate, short acting, (LOPRESSOR) 25 mg tablet Take 0.5 tablets by mouth twice daily. - albuterol HFA (PROVENTIL HFA, VENTOLIN HFA) 90 mcg/actuation inhaler Inhale 2 Puffs as instructed every 4 hours as needed for wheezing/shortness of breath. - ferrous sulfate (IRON ORAL) Take 65 mg by mouth once daily. - Lactobacillus acidophilus (PROBIOTIC ORAL) Take 1 tablet by mouth once daily. - cholecalciferol, vitamin D3, (VITAMIN D3 ORAL) Take 1 tablet by mouth once daily. - calcium carbonate/vitamin D3 (OS-TESSY 500 + D3 ORAL) Take 1 tablet by mouth once daily. - vancomycin (VANCOCIN) 125 mg capsule take 1 capsule by mouth three times a day for 10 days then 1 caps... (REFER TO PRESCRIPTION NOTES). (Patient not taking: Reported on 06/19/2023) - dicyclomine (BENTYL) 10 mg capsule TAKE 1 CAPSULE BY MOUTH BEFORE MEALS AND AT BEDTIME. (Patient not taking: Reported on 06/19/2023) - rivaroxaban (XARELTO) 20 mg tablet Take 1 tablet by mouth once daily. - amitriptyline (ELAVIL) 50 mg tablet Take 1 tablet by mouth daily at bedtime. Facility-Administered Medications as of 06/19/2023 Medication Dose Route Frequency - lactated ringers iv infusion 5-30 mL/hr INTRAVENOUS CONTINUOUS I have interviewed and examined the patient. I have reviewed the medical record and/or the pre-anesthesia evaluation, pertinent labs, and test results. This contains updated information obtained within 48 hours of Surgery/Procedure. SIGNATURE: Phani Holder DO PATIENT NAME: Katrina Serrano DATE: June 19, 2023 TIME: 9:53 AM CSN: [id number] [facility] Colonoscopyon 06-19-2023 Colonoscopy [facility] Gastrointestinal Endoscopy Patient Name: Katrina Serrano Procedure Date: 06/19/2023 9:52 AM Date of : 1955 Admit Type: Outpatient Room: [place] [address] Gender: Female Note Status: Finalized Attending MD: Hunter Posadas MD, [id number] Procedure: Colonoscopy Indications: Chronic diarrhea Providers: Hunter Posadas MD Patient Profile: Refer to note in patient chart for documentation of history and physical. Last Colonoscopy: 2020. Referring Physician: Jayne Mello (Referring MD) Medicines: Monitored Anesthesia Care Complications: No immediate complications. Procedure: Pre-Anesthesia Assessment: - Prior to the procedure, a History and Physical was performed, and patient medications and allergies were reviewed. The patient's tolerance of previous anesthesia was also reviewed. The risks and benefits of the procedure and the sedation options and risks were discussed with the patient. All questions were answered, and informed consent was obtained. Prior Anticoagulants: The patient has taken no anticoagulant or antiplatelet agents. ASA Grade Assessment: See anesthesia record. After reviewing the risks and benefits, the patient was deemed in satisfactory condition to undergo the procedure. After I obtained informed consent, the scope was passed under direct vision. Throughout the procedure, the patient's blood pressure, pulse, and oxygen saturations were monitored continuously. The Colonoscope was introduced through the anus and advanced to the cecum, identified by appendiceal orifice and ileocecal valve. I was present and participated during the entire procedure, including non-melgar portions, and during the administration and monitoring of Moderate Sedation. The colonoscopy was performed without difficulty. The patient tolerated the procedure well. The quality of the bowel preparation was good. The ileocecal valve, appendiceal orifice, and rectum were photographed. Scope Withdrawal Time: 0 hours 7 minutes 7 seconds Moderate Sedation: Exam was performed under monitored anesthesia care (MAC) Findings: The perianal and digital rectal examinations were normal. A single small angioectasia without bleeding was found in the ascending colon. Non-bleeding internal hemorrhoids were found during retroflexion. The hemorrhoids were small. The exam was otherwise normal throughout the examined colon. Estimated Blood Loss: Estimated blood loss: none. Impression: - Non-bleeding internal hemorrhoids. - No specimens collected. Recommendation: - Patient has a contact number available for emergencies. The signs and symptoms of potential delayed complications were discussed with the patient. Return to normal activities tomorrow. Written discharge instructions were provided to the patient. - Resume previous diet. - Continue present medications. - Repeat colonoscopy in 10 years for screening purposes. - Return to referring physician as previously scheduled. - Resume anticoagulant medication at prior dose today. Procedure Code(s): --- Professional --- 97089, Colonoscopy, flexible; diagnostic, including collection of specimen(s) by brushing or washing, when performed (separate procedure) --- Technical --- 95882, Colonoscopy, flexible; diagnostic, including collection of specimen(s) by brushing or washing, when performed (separate procedure) Diagnosis Code(s): --- Professional --- K64.8, Other hemorrhoids K52.9, Noninfective gastroenteritis and colitis, unspecified --- Technical --- K64.8, Other hemorrhoids K52.9, Noninfective gastroenteritis and colitis, unspecified CPT copyright 2020 [employer]. All rights reserved. The codes documented in this report are preliminary and upon soil specialist review may be revised to meet current compliance requirements. Attending Participation: I personally performed the entire procedure. Scope In: 10:04:03 AM Scope Out: 10:16:07 AM MD Hunter Sweet MD 06/19/2023 10:19:32 AM This report has been signed electronically by Hunter Posadas MD Number of Addenda: 0 Note Initiated On: 06/19/2023 9:52 AM [facility] Flexible sigmoidoscopy study on 06-19-2023 [facility] HISTORY PHYSICALon HISTORY PHYSICAL HNO ID: [id number] Author: HUNTER POSADAS MD Service: Gastroenterology Author Type: Physician Type: H&P Filed: 06/19/2023 09:54 Note Text: Endoscopy pre-operative HANDP HANDP completed prior to the start time of the procedure. IMPRESSION AND PLAN HPI: This is a 67 year old female. For colonoscopy for chronic diarrhea, C diff was +ve then treated, tested negative. Diarrhea is now resolved.. Pertinent Review of Systems: GI: See HPI All other reviewed and negative other than HPI. 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 Microscopic colitis Other malaise and fatigue Paroxysmal atrial fibrillation (HCC) Primary cancer of right lower lobe of lung (HCC) 03/24/2020 Shortness of breath Unspecified constipation PAST SURGICAL HISTORY: PAST SURGICAL HISTORY Procedure Laterality Date BACK SURGERY HX x 3 COLONOSCOPY FLX DX W/COLLJ SPEC WHEN PFRMD 02/04/2021 COLSC FLX W/RMVL OF TUMOR POLYP LESION SNARE TQ 08/07/2008 EGD TRANSORAL BIOPSY SINGLE/MULTIPLE 06/16/2010 EGD W/O [facility] SPEC VARICIES INJ 11/17/2021 EXC NEUROMA HAND/FOOT XCP DIGITAL NERVE HERNIA REPAIR HX NEUROPLASTY AND/TRANSPOS MEDIAN NRV CARPAL TUNNE Bilateral Carpal tunnel decomp PAST SURGICAL HISTORY OF 03/13/2020 MEDIASTINOSCOPY W/LYMPH NODE BIOPSY REPR DURAL/CSF LEAK W LAMINECTOMY RMVL LUNG OTHER THAN PNEUMONECTOMY 1 LOBE LOBECT Right 06/22/2020 Thoracotomy, right middle lobectomy, mediastinal lymph node dissection for lung cancer SIGMOIDOSCOPY FLX DX W/COLLJ SPEC BR/WA IF PFRMD 1998 Sigmoidoscopy TONSILLECTOMY HX TONSILLECTOMY PRIMARY/SECONDARY Tonsillectomy OBJECTIVE: PHYSICAL EXAM: VITALS: BP 103/91 Pulse 65 Temp 36.3 ?C (97.3 ?F) (Temporal) Resp 16 Ht 167.6 cm (5' 6) Wt 83.9 kg (185 lb) SpO2 94% BMI 29.86 kg/m? General appearance: AANDOx3 Respiratory: Normal chest expansion. No audible wheezes. CVS: No shortness of breath, no extremity edema. Regular pulse. Plan: OK to proceed with endoscopy. SIGNATURE: Huntre Posadas MD PATIENT NAME: Katrina Serrano [facility] HISTORY PHYSICAL HNO ID: [id number] Author: ANAMIKA RICHARDSON APRN.[employer] WORK[employer] Service: ? Author Type: Nurse Practitioner Type: H&P Filed: 06/19/2023 09:09 Note Text: HISTORY AND PHYSICAL EXAMINATION SERVICE DATE: 06/19/2023 SERVICE TIME: 8:38 AM PRIMARY CARE PHYSICIAN: Dennis Marcial MD REASON FOR VISIT: Katrina Serrano is a 67 year old female who is scheduled for colonoscopy at the request of Dr. Posadas for routine HANDP. The reason for this visit is to perform a comprehensive review of the patient's past medical history, assess their current health status and obtain any additional testing required based on anesthesia guidelines. We will also identify any potential anesthesia problems or contraindications to the planned procedure. The patient has the following: ACTIVE PROBLEM LIST Dysphagia Chest Pain, Unspecified Shortness of Breath Other Malaise and Fatigue Recurrent Major Depressive Disorder, in Remission (Hcc) Degeneration of Lumbar Or Lumbosacral Intervertebral Disc Esophageal Reflux Lumbago Benign Neoplasm of Colon Unspecified Constipation Microscopic Colitis Acute Gastritis Without Mention of Hemorrhage Lung Nodule Lymphadenopathy, Mediastinal Former Smoker Primary Cancer of Right Lower Lobe of Lung (Hcc) Metastasis to Mediastinal Lymph Node (Hcc) Hypomagnesemia Paroxysmal Atrial Fibrillation (Hcc) Pain, Postoperative, Acute Discharge Planning Issues Nsclc of Right Lung (Hcc) Serena (Acute Kidney Injury) (Hcc) Infected Tooth Centrilobular Emphysema (Hcc) Paralyzed Hemidiaphragm Iron Deficiency Anemia Secondary to Inadequate Dietary Iron Intake Stage 3 Chronic Kidney Disease (Hcc) Osteoarthrosis Osteoporosis Irritable Bowel Syndrome Insomnia Facial Nerve Palsy Hypertension, Essential Depression Degeneration of Intervertebral Disc Contusion of Knee and Lower Leg Atherosclerosis of Aorta (Hcc) Restless Leg Syndrome Steatosis of Liver Pancytopenia (Hcc) Pure Hypercholesterolemia, Unspecified Radiation Pneumonitis (Hcc) Rib Pain Sinusitis Stage Iii Squamous Cell Carcinoma of Lung (Hcc) Transient Hypotension Vitamin D Deficiency Aci (Adrenal Cortical Insufficiency) (Hcc) Polyarthritis 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 difficile diarrhea Iron deficiency anemia, unspecified iron deficiency anemia type Elevated fecal calprotectin HPI: Patient is a 67 year old female who presents to endo for the above procedure. Pt has been treated for C diff 4 months ago. She also has ONESIMO. Denies abdominal pain, Nausea, vomiting, constipation, hemtochezia at this time. Patient agrees to proceed with procedure. 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 Microscopic colitis Other malaise and fatigue Paroxysmal atrial fibrillation (HCC) Primary cancer of right lower lobe of lung (HCC) 03/24/2020 Shortness of breath Unspecified constipation PAST SURGICAL HISTORY Procedure Laterality Date BACK SURGERY HX x 3 COLONOSCOPY FLX DX W/COLLJ SPEC WHEN PFRMD 02/04/2021 COLSC FLX W/RMVL OF TUMOR POLYP LESION SNARE TQ 08/07/2008 EGD TRANSORAL BIOPSY SINGLE/MULTIPLE 06/16/2010 EGD W/O [facility] SPEC VARICIES INJ 11/17/2021 EXC NEUROMA HAND/FOOT XCP DIGITAL NERVE HERNIA REPAIR HX NEUROPLASTY AND/TRANSPOS MEDIAN NRV CARPAL TUNNE Bilateral Carpal tunnel decomp PAST SURGICAL HISTORY OF 03/13/2020 MEDIASTINOSCOPY W/LYMPH NODE BIOPSY REPR DURAL/CSF LEAK W LAMINECTOMY RMVL LUNG OTHER THAN PNEUMONECTOMY 1 LOBE LOBECT Right 06/22/2020 Thoracotomy, right middle lobectomy, mediastinal lymph node dissection for lung cancer SIGMOIDOSCOPY FLX DX W/COLLJ SPEC BR/WA IF PFRMD 1998 Sigmoidoscopy TONSILLECTOMY HX TONSILLECTOMY PRIMARY/SECONDARY Tonsillectomy FAMILY HISTORY Problem Relation Age of Onset other (throat cancer) Mother Heart Father Skin Cancer Brother COPD Brother Skin Cancer Brother Diabetes Son Colon Cancer No Family History SOCIAL HISTORY: Social History Tobacco Use Smoking status: Former Packs/day: 1.00 Years: 30.00 Additional pack years: 0.00 Total pack years: 30.00 Types: Cigarettes Quit date: 03/24/2000 Years since quittin.2 Smokeless tobacco: Never Vaping Use Vaping Use: Never used Substance Use Topics Alcohol use: No Drug use: Never Prior to Admission medications as of 05/10/23 1626 Medication Sig Last Dose Taking traMADol (ULTRAM) 50 mg tablet Take 1 (more content not included)... [facility] NURSING PROGon 06-19-2023 NURSING PROG HNO ID: [id number] Author: LAURA HELM RN Service: Nursing Author Type: Registered Nurse Type: Nursing Progress Note Filed: 06/19/2023 11:53 Note Text: Patient continues to have intermittent cramping abdominal pain, but states she feels well enough to go home. States pain has lessened since she first came out of procedure. [facility] CT CHEST WO IVCONon 06-12-19 [facility] Absolute lymphocyte countOrd ered By: Alexandra Baker on 06-08-2023 Lymphocytes Auto (Unsp spec) [#/Vol] 1.31 10*3/uL 0.83-4.51 [facility] Automated lymphocyte count a s percentage of total leukocytesOrdered By: Alexandra Baker on 06-08-2023 Lymphocytes/100 WBC Auto (Unsp spec) 23.1 % 19-41 [facility] Basophil percentageOrdered B y: Alexandra Baker on 06-08-2023 Basophils/100 WBC (Bld) 0.9 % 0-1 [facility] Bilirubin [Mass/Vol] 0.30 mg/dL 0.20-1.00 [facility] Comment on above: For patients on eltr ombopag therapy, use of Dimension [place] TBIL is not recommended. Chloride [Moles/Vol] 106 mmol/L 98-107 [facility] Eosinophils/100 WBC (Bld) 3.3 % 0-5 [facility] Glucose [Mass/Vol] 89 mg/dL 74-106 [facility] Hemoglobin (Bld) [Mass/Vol] 10.5 g/dL 12.0-15.0 [facility] Monocytes/100 WBC (Bld) 7.6 % 0-10 [facility] Neutrophils (Bld) [#/Vol] 3.7 10*3/uL 2.0-7.7 [facility] Neutrophils/100 WBC (Bld) 64.7 % 47-70 [facility] Potassium [Moles/Vol] 3.8 mmol/L 3.5-5.1 [facility] Comment on above: Slight Hemolysis, Re sult may be falsely increased. Protein [Mass/Vol] 7.9 g/dL 6.4-8.2 [facility] Sodium [Moles/Vol] 137 mmol/L 136-145 [facility] WBC (Bld) [#/Vol] 5.7 10*3/uL 4.4-11.0 [facility] Determination of erythrocyte mean corpuscular volume (MCV)Ordered By: Alexandra Baker on 06-08-2023 MCV (RBC) [Entitic vol] 92.2 fL 81-99 [facility] Erythrocyte distribution wid th ratioOrdered By: [facility] Erythrocyte distribution width (RBC) [Ratio] 12.5 % 11.6-14.6 [facility] Erythrocyte distribution wid th standard deviationOrdered By: [facility] on 06-08-2023 Erythrocyte distribution width (RBC) [Entitic vol] 42.4 fL 35.1-43.9 [facility] Hematocrit Auto (Bld) [Volum e fraction]Ordered By: [facility] Samuel on 06-08-2023 Hematocrit (Bld) [Volume fraction] 33.1 % 37-47 [facility] Immature granulocytes/100 WB C Auto (Bld)Ordered By: Alexandra Baker on 06-08-2023 Immature granulocytes/100 WBC (Bld) 0.400 % 0.0-0.9 [facility] Comment on above: IG% - Immature Granu locytes (promyelocytes, myelocytes and metamyelocytes) > 1% indicates that a LEFT SHIFT is Present. Laboratory - Chemistry and C hemistry - challengeOrdered By: Alexandra Baker on 06-08-2023 Albumin/Globulin [Mass ratio] 0.6 {ratio} 0.9-2.4 [facility] ALP [Catalytic activity/Vol] 169 U/L 45-117 [facility] ALT [Catalytic activity/Vol] 22 U/L 13-56 [facility] CO2 [Moles/Vol] 26.0 mmol/L 21.0-32.0 [facility] Globulin (S) [Mass/Vol] 4.8 g/dL 2.2-4.2 [facility] Urea nitrogen/Creatinine [Mass ratio] 13.4 mg/mg 10-20 [facility] Laboratory - Hematology and Cell countsOrdered By: Alexandra Baker on 06-08-2023 MCH (RBC) [Entitic mass] 29.2 pg 27.0-32.0 [facility] MCHC (RBC) [Mass/Vol] 31.7 g/dL 32-36 [facility] Nucleated RBC/100 WBC (Bld) [Ratio] 0 % 0-5 [facility] Platelets (Bld) [#/Vol] 330 10*3/uL 150-450 [facility] No Panel InformationOrdered By: Alexandra Baker on 06-08-2023 Estimated GFR (MDRD) Amer 54 mL/min >60 [facility] Comment on above: GFR Calc Estimated GFR (MDRD) Non-Af Amer 45 mL/min >60 [facility] Comment on above: Non- GFR Calc Platelet mean volume Sunil-Ec ker (Bld) [Entitic vol]Ordered By: Alexandra Baker on 06-08-2023 Platelet mean volume (Bld) [Entitic vol] 9.8 fL 6.2-12.0 [facility] RBC Auto (Bld) [#/Vol]Ordere d By: Alexandra Baker on 06-08-2023 RBC (Bld) [#/Vol] 3.59 10*6/uL 4.2-5.4 [facility] Serum or plasma calcium dave urement (mass/volume)Ordered By: Alexandra Baker on 06-08-2023 Calcium [Mass/Vol] 9.6 mg/dL 8.5-10.1 [facility] Serum or plasma creatinine m easurement (mass/volume)Ordered By: Alexandra Baker on 06-08-2023 Creatinine [Mass/Vol] 1.27 mg/dL 0.55-1.02 [facility] Comment on above: The validity of the calculated GFR & GFRAA in patients over 70 years has not been determined. Clinical correlation is essential. Serum or plasma urea nitroge n measurement (mass/volume)Ordered By: Alexandra Baker on 06-08-2023 Urea nitrogen [Mass/Vol] 17 mg/dL 7-18 [facility] Thin prep Papanicolaou smear with manual screeningOrdered By: Alexandra Baker on 06-08-2023 Thin prep Papanicolaou smear with manual screening 3.1 g/dL 3.2-5.0 [facility] Thin prep Papanicolaou smear with manual screening 19 U/L 15-37 [facility] Comment on above: Slight Hemolysis, Re sult may be falsely increased. Thin prep Papanicolaou smear with manual screening 5 5-15 [facility] UA DIP, URINE (POC)on 2022 BILIRUBIN UA (POCT) Negative Negative [facility] CLARITY UA (POCT) Clear [facility] COLOR UA (POCT) Yellow [facility] GLUCOSE UA (POCT) Negative Negative mg/dL [facility] Hemoglobin Ql (U) Negative Negative [facility] KETONE UA (POCT) Negative Negative mg/dL [facility] LEUKOCYTES UA (POCT) Small Abnormal Negative [facility] NITRITE UA (POCT) Negative Negative [facility] PH UA (POCT) 7.0 4.5 - 8.0 [facility] Protein Ql (U) 100 mg/dL Abnormal Negative mg/dL [facility] SPECIFIC GRAVITY UA (POCT) 1.025 1.005 - 1.030 [facility] UROBILINOGEN UA (POCT) 0.2 E.U./dL Shaneka l E.U./dL [facility] No Panel Informationon 12-07 [facility] Absolute lymphocyte countOrd ered By: Alexandra Baker on 11-09-2022 Lymphocytes Auto (Unsp spec) [#/Vol] 1.11 10*3/uL 0.83-4.51 [facility] Basophil percentageOrdered B y: Alexandra Baker on 11-09-2022 Basophils/100 WBC (Bld) 0.4 % 0-1 [facility] Bilirubin [Mass/Vol] 0.30 mg/dL 0.20-1.00 [facility] Comment on above: For patients on eltr ombopag therapy, use of Dimension [place] TBIL is not recommended. Chloride [Moles/Vol] 106 mmol/L 98-107 [facility] Eosinophils/100 WBC (Bld) 5.3 % 0-5 [facility] Glucose [Mass/Vol] 77 mg/dL 74-106 [facility] Neutrophils (Bld) [#/Vol] 3.2 10*3/uL 2.0-7.7 [facility] Neutrophils/100 WBC (Bld) 63.9 % 47-70 [facility] Potassium [Moles/Vol] 3.7 mmol/L 3.5-5.1 [facility] Protein [Mass/Vol] 8.1 g/dL 6.4-8.2 [facility] Sodium [Moles/Vol] 139 mmol/L 136-145 [facility] WBC (Bld) [#/Vol] 4.9 10*3/uL 4.4-11.0 [facility] Blood erythrocytes count (nu mber/volume)Ordered By: Alexandra Baker on 11-09-2022 RBC (Bld) [#/Vol] 3.86 10*6/uL 4.2-5.4 [facility] Blood hemoglobin measurement (mass/volume)Ordered By: Alexandra Baker on 11-09-2022 Hemoglobin (Bld) [Mass/Vol] 11.5 g/dL 12.0-15.0 [facility] Blood lymphocytes/100 leukoc ytesOrdered By: Alexandra Baker on 11-09-2022 Lymphocytes/100 WBC (Bld) 22.5 % 19-41 [facility] Blood monocytes/100 leukocyt esOrdered By: Alexandra Baker on 11-09-2022 Monocytes/100 WBC (Bld) 7.7 % 0-10 [facility] Blood platelet mean volumeOr dered By: Alexandra Baker on 11-09-2022 Platelet mean volume (Bld) [Entitic vol] 10.1 fL 6.2-12.0 [facility] Determination of erythrocyte mean corpuscular volume (MCV)Ordered By: Alexandra Baker on 11-09-2022 MCV (RBC) [Entitic vol] 94.8 fL 81-99 [facility] Hematocrit Auto (Bld) [Volum e fraction]Ordered By: Alexandra Baker on 11-09-2022 Hematocrit (Bld) [Volume fraction] 36.6 % 37-47 [facility] Laboratory - Chemistry and C hemistry - challengeOrdered By: Alexandra Baker on 11-09-2022 ALP [Catalytic activity/Vol] 158 U/L 45-117 [facility] ALT [Catalytic activity/Vol] 19 U/L 13-56 [facility] CO2 [Moles/Vol] 28.0 mmol/L 21.0-32.0 [facility] Globulin (S) [Mass/Vol] 4.7 g/dL 2.2-4.2 [facility] Urea nitrogen/Creatinine [Mass ratio] 12.9 mg/mg 10-20 [facility] Laboratory - Hematology and Cell countsOrdered By: Alexandra Baker on 11-09-2022 Erythrocyte distribution width (RBC) [Entitic vol] 47.3 fL 35.1-43.9 [facility] Erythrocyte distribution width (RBC) [Ratio] 13.6 % 11.6-14.6 [facility] Immature granulocytes/100 WBC (Bld) 0.200 % 0.0-0.9 [facility] Comment on above: IG% - Immature Granu locytes (promyelocytes, myelocytes and metamyelocytes) > 1% indicates that a LEFT SHIFT is Present. MCH (RBC) [Entitic mass] 29.8 pg 27.0-32.0 [facility] Nucleated RBC/100 WBC (Bld) [Ratio] 0 % 0-5 [facility] MCHC Auto (RBC) [Mass/Vol]Or dered By: Alexandra Baker on 11-09-2022 MCHC (RBC) [Mass/Vol] 31.4 g/dL 32-36 [facility] No Panel InformationOrdered By: Alexandra Baker on 11-09-2022 Estimated GFR (MDRD) Amer 48 mL/min >60 [facility] Comment on above: GFR Calc Estimated GFR (MDRD) Non-Af Amer 40 mL/min >60 [facility] Comment on above: Non- GFR Calc Platelets bldOrdered By: Daniel Baker on 11-09-2022 Platelets (Bld) [#/Vol] 316 10*3/uL 150-450 [facility] Serum or plasma albumin dave urement (mass/volume)Ordered By: Alexandra Baker on 11-09-2022 Albumin [Mass/Vol] 3.4 g/dL 3.2-5.0 [facility] Serum or plasma albumin/glob ulin mass ratioOrdered By: Alexandra Baker on 11-09-2022 Albumin/Globulin [Mass ratio] 0.7 {ratio} 0.9-2.4 [facility] Serum or plasma calcium dave urement (mass/volume)Ordered By: Alexandra Baker on 11-09-2022 Calcium [Mass/Vol] 9.5 mg/dL 8.5-10.1 [facility] Serum or plasma creatinine m easurement (mass/volume)Ordered By: Alexandra Baker on 11-09-2022 Creatinine [Mass/Vol] 1.40 mg/dL 0.55-1.02 [facility] Comment on above: The validity of the calculated GFR & GFRAA in patients over 70 years has not been determined. Clinical correlation is essential. Serum or plasma urea nitroge n measurement (mass/volume)Ordered By: Alexandra Baker on 11-09-2022 Urea nitrogen [Mass/Vol] 18 mg/dL 7-18 [facility] Thin prep Papanicolaou smear with manual screeningOrdered By: Alexandra Baker on 11-09-2022 Thin prep Papanicolaou smear with manual screening 19 U/L 15-37 [facility] Thin prep Papanicolaou smear with manual screening 5 5-15 [facility] XR Pelvis APon 10-13-2022 IMPRESSION: No acute osseous abnormality Executive Vp: PSCB Transcribe Date/Time: Oct 13 2022 2:40P Dictated by : DESTINI FLOREZ MD This examination was interpreted and the report reviewed and electronically signed by: DESTINI FLOREZ MD on Oct 13 2022 2:42PM [facility] DIVISION OF RADIOLOGY * * *Final Report* * * DATE OF EXAM: Oct 07 2022 11:07AM WOX 5239 - XR PELVIS 1V AP / PROCEDURE REASON: M06.4 M79.7 M81.0 * * * * Physician Interpretation * * * * EXAMINATION: XR PELVIS 1V AP CLINICAL HISTORY: Joint pain Technique: XR PELVIS 1V AP -- NOT APPLICABLE with 1 views on 1 images Comparison: None RESULT: No acute fracture or dislocation. Joint spaces are maintained. No periarticular erosions. Hardware in the lower lumbar spine. DIVISION OF RADIOLOGY Provider, [facility] - 10/13/2022 * * *Final Report* * * DATE OF EXAM: Oct 07 2022 11:07AM WOX 5239 - XR PELVIS 1V AP / PROCEDURE REASON: M06.4 M79.7 M81.0 * * * * Physician Interpretation * * * * EXAMINATION: XR PELVIS 1V AP CLINICAL HISTORY: Joint pain Technique: XR PELVIS 1V AP -- NOT APPLICABLE with 1 views on 1 images Comparison: None RESULT: No acute fracture or dislocation. Joint spaces are maintained. No periarticular erosions. Hardware in the lower lumbar spine. IMPRESSION IMPRESSION: No acute osseous abnormality Executive Vp: [facility] Transcribe Date/Time: Oct 13 2022 2:40P Dictated by : DESTINI FLOREZ MD This examination was interpreted and the report reviewed and electronically signed by: DESTINI FLOREZ MD on Oct 13 2022 2:42PM EST [facility] XR Pelvis APOrdered By: [facility] Provider on 10-13-[address] [facility] [address] CHEST WO IVCONon 10-11-19 [facility] XR Pelvis APon 10-07-2022 Radiology Study observation (narrative) [facility] CBC W Auto Differential pane l (Bld)on 08-23-2022 Basophils (Bld) [#/Vol] <0.11 k/uL [facility] Basophils/100 WBC (Bld) 0.4 % [facility] Differential cell count method Nom (Bld) Auto [facility] Eosinophils (Bld) [#/Vol] 0.27 10*3/uL <0.46 k/uL [facility] Eosinophils/100 WBC (Bld) 4.9 % [facility] Erythrocyte distribution width (RBC) [Ratio] 13.3 % 11.5 - 15.0 % [facility] Hematocrit (Bld) [Volume fraction] 34.5 % Low 36.0 - 46.0 % [facility] Hemoglobin (Bld) [Mass/Vol] 11.2 g/dL Low 11.5 - 15.5 g/dL [facility] Immature granulocytes (Bld) [#/Vol] <0.10 k/uL [facility] Immature granulocytes/100 WBC (Bld) 0.4 % [facility] Lymphocytes (Bld) [#/Vol] 1.43 10*3/uL 1.00 - 4.00 k/uL [facility] Lymphocytes/100 WBC (Bld) 26.0 % [facility] MCH (RBC) [Entitic mass] 30.4 pg 26.0 - 34.0 pg [facility] MCHC (RBC) [Mass/Vol] 32.5 g/dL 30.5 - 36.0 g/dL [facility] MCV (RBC) [Entitic vol] 93.8 fL 80.0 - 100.0 fL [facility] Monocytes (Bld) [#/Vol] 0.50 10*3/uL <0.87 k/uL [facility] Monocytes/100 WBC (Bld) 9.1 % [facility] Neutrophils (Bld) [#/Vol] 3.27 10*3/uL 1.45 - 7.50 k/uL [facility] Neutrophils/100 WBC (Bld) 59.2 % [facility] Nucleated RBC (Bld) [#/Vol] <0.01 k/uL [facility] Nucleated RBC/100 WBC (Bld) [Ratio] 0.0 /100 WBC [facility] Platelet mean volume (Bld) [Entitic vol] 9.6 fL 9.0 - 12.7 fL [facility] Platelets (Bld) [#/Vol] 243 10*3/uL 150 - 400 k/uL [facility] RBC (Bld) [#/Vol] 3.68 10*6/uL Low 3.90 - 5.2 0 m/uL [facility] WBC (Bld) [#/Vol] 5.51 10*3/uL 3.70 - 11.00 k/uL [facility] FERRITIN BLDon 08-23-2022 Ferritin [Mass/Vol] 113.0 ng/mL 14.7 - 205.1 ng/mL [facility] Iron and Iron binding capaci ty panelon 08-23-2022 Iron [Mass/Vol] 58 ug/dL 41 - 186 ug/dL [facility] Iron binding capacity [Mass/Vol] [facility] Iron/TIBC [Molar ratio] [facility] XR Chest PA and Lateralon IMPRESSION: Stable radiographic appearance of the chest Executive Vp: LISA Transcribe Date/Time: Apr 27 2022 4:37P Dictated by : MICHAEL SHANE MD This examination was interpreted and the report reviewed and electronically signed by: MICHAEL SHANE MD on Apr 27 2022 4:39PM [facility] DIVISION OF RADIOLOGY * * *Final Report* * * DATE OF EXAM: Apr 26 2022 10:15AM WOX 5291 - XR CHEST 2V FRONTAL/LAT / PROCEDURE REASON: NSCLC of right lung (HCC) * * * * Physician Interpretation * * * * EXAMINATION: CHEST RADIOGRAPH (2 VIEW FRONTAL & LATERAL) CLINICAL HISTORY: NSCLC of right lung (HCC) MQ: XC2_6 EXAM DATE/TIME: 04/26/2022 10:15 AM COMPARISON: Chest x-ray dated March 01, 2021 RESULT: Lines, tubes, and devices: None. Lungs and pleura: Stable volume loss in the right hemithorax related to prior right lobectomy and stable postradiation treatment related changes in the right perihilar region. Stable elevation of the right hemidiaphragm. No radiographic evidence of new airspace consolidation. No discernible pleural effusion or pneumothorax. Cardiomediastinal silhouette: Stable cardiomediastinal silhouette. Bones and soft tissues: Stable mild superior endplate compression deformity of T12. Postsurgical changes in the lumbar spine. [facility] DIVISION OF RADIOLOGY Provider, Destiney Zachery [facility] - 04/27/2022 * * *Final Report* * * DATE OF EXAM: Apr 26 2022 10:15AM WOX 5291 - XR CHEST 2V FRONTAL/LAT / PROCEDURE REASON: NSCLC of right lung (HCC) * * * * Physician Interpretation * * * * EXAMINATION: CHEST RADIOGRAPH (2 VIEW FRONTAL & LATERAL) CLINICAL HISTORY: NSCLC of right lung (HCC) MQ: XC2_6 EXAM DATE/TIME: 04/26/2022 10:15 AM COMPARISON: Chest x-ray dated March 01, 2021 RESULT: Lines, tubes, and devices: None. Lungs and pleura: Stable volume loss in the right hemithorax related to prior right lobectomy and stable postradiation treatment related changes in the right perihilar region. Stable elevation of the right hemidiaphragm. No radiographic evidence of new airspace consolidation. No discernible pleural effusion or pneumothorax. Cardiomediastinal silhouette: Stable cardiomediastinal silhouette. Bones and soft tissues: Stable mild superior endplate compression deformity of T12. Postsurgical changes in the lumbar spine. The visualized IMPRESSION IMPRESSION: Stable radiographic appearance of the chest Executive Vp: PSCDior Transcribe Date/Time: Apr 27 2022 4:37P Dictated by : MICHAEL SHANE MD This examination was interpreted and the report reviewed and electronically signed by: MICHAEL SHANE MD on Apr 27 2022 4:39PM EST [facility] XR Chest PA and LateralOrder ed By: [facility] Provider on 04-27-2022 [facility] XR Chest PA and Lateralon Radiology Study observation (narrative) [facility] ANES POSTPROC EVALon 022 ANES POSTPROC EVAL HNO ID: [id number] Author: Jose Cruz Mendes MD Service: Anesthesiology Author Type: Anesthesiologist Type: Anesthesia Postprocedure Evaluation Filed: 11/17/2021 1:28 PM Note Text: POST ANESTHESIA EVALUATION NOTE : 1955 Procedure Summary Date: 11/17/21 Room / Location: [facility] Anesthesia Start: 1046 Anesthesia Stop: 1105 Procedure: EGD DIAGNOSTIC Diagnosis: Other iron deficiency anemia (Suspected upper GI bleeding) Scheduled Providers: Johnathan Guillermo MD; Mena Vargas APRN.[employer]BLE [employer]TER HELPER Responsible Provider: Minnie Brady MD Anesthesia Type: MAC ASA Status: 3 Anesthesia Type: MAC Last Vitals Vitals Value Taken Time BP 95/56 11/17/21 1115 Temp 36.1 ?C (97 ?F) 11/17/21 1105 Pulse 57 11/17/21 1127 Resp 11 11/17/21 1127 SpO2 96 % 11/17/21 1127 Vitals shown include unvalidated device data. Post Anesthesia Patient Status Patient Evaluation: bedside. Anticipated Disposition: phase 2 then home. Neurological Status: aware and responsive. Pulmonary Status: breathing comfortably on room air Airway Control: returned to baseline unsupported. Cardiovascular Status: stable. Pain Management: clinically adequate Postoperative Hydration: acceptable. Intraoperative Events: no significant anesthesia events Post Operative Nausea/Vomiting Status: no significant post operative nausea or vomiting Anesthetic Observations: Recommendation: continue current plan of care. Anesthesia Observations No Documentation SIGNATURE: Jose Cruz Mendes MD PATIENT NAME: Katrina Serrano DATE: November 17, 2021 TIME: 1:28 PM CSN: [id number] Normal [facility] ANES PRE-OPon 11-17-2021 ANES PRE-OP HNO ID: [id number] Author: Minnie Brady MD Service: Anesthesiology Author Type: Anesthesiologist Type: Anesthesia Preprocedure Evaluation Filed: 11/17/2021 10:29 AM Note Text: ANESTHESIOLOGY DAY OF SURGERY NOTE : 1955 Procedure Information Date/Time: 11/17/21 1130 Scheduled providers: Johnathan Guillermo MD; Mena Vargas APRN.[employer] Procedure: EGD DIAGNOSTIC Location: [facility] Estimated body mass index is 32.95 kg/m? as calculated from the following: Height as of this encounter: 165.1 cm (5' 5). Weight as of this encounter: 89.8 kg (198 lb). Most recent hematocrit and potassium results: Hematocrit 27.8 10/14/2021 Potassium 4.2 10/08/2021 Relevant Problems CARDIO (+) Paroxysmal atrial fibrillation (HCC) GI (+) Esophageal reflux -RENAL (+) SERENA (acute kidney injury) (HCC) (+) CKD (chronic kidney disease) PULMONARY (+) Centrilobular emphysema (HCC) (+) Shortness of breath Other (+) Lymphadenopathy, mediastinal (+) Metastasis to mediastinal lymph node (HCC) I - PHYSICAL EVALUATION AIRWAY Patient intubated: No. Tracheostomy tube not present Mallampati: II. TM distance: >3 FB. Neck ROM: full ROM without neurological symptoms. Mouth opening: adequate. Short neck: no. Thick neck: no DENTAL Dental findings: poor dentition. Additional exam findings: no II - ANESTHESIA PLAN ASA Score: 3 Anesthetic Plan: MAC The patient is not a current smoker. Monitoring plan: standard ASA. Postoperative analgesic plan: multimodal analgesia. Patient / Surrogate agrees to blood products: blood products not planned DNR status not reviewed with patient and/or family prior to surgery. Significant changes in the patient condition since the History and Physical, not otherwise documented in primary service progress note: no. Potential Anesthesia issues that may suggest increased risk of complications or contraindication to planned procedure: none. Vitals Value Taken Time BP 106/56 11/17/21 1019 Pulse Resp 16 11/17/21 1019 Temp 36.2 ?C (97.2 ?F) 11/17/21 1019 SpO2 98 % 11/17/21 1019 Outpatient Medications as of 11/17/2021 Medication Sig - traMADol (ULTRAM) 50 mg tablet Take 1 tablet by mouth every 6 hours as needed. - simvastatin (ZOCOR) 20 mg tablet Take 1 tablet by mouth daily at bedtime. - tiZANidine (ZANAFLEX) 2 mg tablet Take 1 tablet by mouth twice daily. - ferrous sulfate (IRON ORAL) Take 65 mg by mouth. - Lactobacillus acidophilus (PROBIOTIC ORAL) Take 1 tablet by mouth once daily. - cholecalciferol, vitamin D3, (VITAMIN D3 ORAL) Take 1 tablet by mouth once daily. - calcium phosphate dibas/vit D3 (VITAMIN D, WITH CALCIUM, ORAL) Take 250 mg by mouth once daily. - rivaroxaban (XARELTO) 20 mg tablet Take 20 mg by mouth once daily. - albuterol HFA (PROVENTIL HFA, VENTOLIN HFA) 90 mcg/actuation inhaler Inhale 2 Puffs as instructed every 4 hours as needed for wheezing/shortness of breath. - meloxicam (MOBIC) 15 mg tablet Take 15 mg by mouth once daily. - DULoxetine (CYMBALTA) 60 mg capsule Take 60 mg by mouth once daily. - pantoprazole DR (PROTONIX) 40 mg tablet Take 1 tablet by mouth once daily. - umeclidinium-vilantero l (ANORO ELLIPTA) 62.5-25 mcg/actuation inhaler Inhale 1 Inhalation as instructed once daily. - calcium carbonate/vitamin D3 (OS-TESSY 500 + D3 ORAL) Take 1 tablet by mouth once daily. - metoprolol tartrate, short acting, (LOPRESSOR) 25 mg tablet Take 12.5 mg by mouth twice daily. - amitriptyline (ELAVIL) 50 mg tablet Take 50 mg by mouth daily at bedtime. - DENOSUMAB (PROLIA SUBCUTANEOUS) Inject subcutaneously once every 6 months. Facility-Administered Medications as of 11/17/2021 Medication Dose Route Frequency - lactated ringers iv infusion 30 mL/hr INTRAVENOUS CONTINUOUS I have interviewed and examined the patient. I have reviewed the medical record and/or the pre-anesthesia evaluation, pertinent labs, and test results. This contains updated information obtained within 48 hours of Surgery/Procedure. SIGNATURE: Minnie Brady MD PATIENT NAME: Katrina Serrano DATE: November 17, 2021 TIME: 10:28 AM CSN: [id number] Normal [facility] EGD DIAGNOSTICon 11-17-2021 [facility] HISTORY PHYSICALon HISTORY PHYSICAL HNO ID: [id number] Author: Johnathan Guillermo MD Service: General Surgery Author Type: Physician Type: HANDP Filed: 11/17/2021 10:43 AM Note Text: HISTORY AND PHYSICAL ? Katrina Coles Maggie 1955 ? REFERRING PHYSICIAN: Carolina Lambert MD ? CHIEF COMPLAINT: Consult (EGD) ? HPI: The patient is a 66 year old female referred for endoscopy. Patient was actually recently seen in gastroenterology on 10/12/21, notes reviewed. Patient had been referred to GI by hem/onc for evaluation of anemia. She had a recent EGD in January 2021 without concerning findings. ? Katrina notes no colon complaints. Patient denies any change in bowel habits, weight changes, blood in stools, black tarry stools or abdominal pain. ? The patient notes a long-term history of acid reflux for which she is maintained on Protonix. Has not had prior EGD. ? Patient's past medical history is significant for NSCLC of right lung, atrial fibrillation, emphysema, chronic kidney disease, diaphragm paralysis. In the interim since her GI visit, patient also had COVID. She states those symptoms have fully resolved. ? Patient was initially scheduled to have EGD with Dr. Reyna, but due to her pulmonary issues was felt not to be a candidate for that facility. She is now referred to have this performed in [place] by one of the general surgeons. ? ? PAST MEDICAL HISTORY PAST MEDICAL HISTORY Diagnosis Date - Acute gastritis without mention of hemorrhage ? - Arthritis ? - Benign neoplasm of colon ? - Centrilobular emphysema (HCC) ? - Chest pain, unspecified ? - CKD (chronic kidney disease) ? - COVID 10/20/2021 - Degeneration of lumbar or lumbosacral intervertebral disc ? - Depression ? - Diaphragm paralysis ? - Dysphagia ? - Esophageal reflux ? - History of transfusion ? - Hypercholesterolemia ? - Hypomagnesemia 05/11/2020 - Irritable bowel syndrome ? - Lumbago ? 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 - Other malaise and fatigue ? - Paroxysmal atrial fibrillation (HCC) ? - Primary cancer of right lower lobe of lung (HCC) 03/24/2020 - Shortness of breath ? - Unspecified constipation ? ? ? PAST SURGICAL HISTORY PAST SURGICAL HISTORY Procedure Laterality Date - BACK SURGERY HX ? ? ? x 3 - COLONOSCOPY FLX DX W/COLLJ SPEC WHEN PFRMD ? 02/04/2021 - COLSC FLX W/RMVL OF TUMOR POLYP LESION SNARE TQ ? 08/07/2008 - EGD TRANSORAL BIOPSY SINGLE/MULTIPLE ? 06/16/2010 - EXC NEUROMA HAND/FOOT XCP DIGITAL NERVE ? ? - HERNIA REPAIR HX ? ? - NEUROPLASTY AND/TRANSPOS MEDIAN NRV CARPAL TUNNE Bilateral ? ? Carpal tunnel decomp - PAST SURGICAL HISTORY OF ? 03/13/2020 ? MEDIASTINOSCOPY W/LYMPH NODE BIOPSY - REPR DURAL/CSF LEAK W LAMINECTOMY ? ? - RMVL LUNG OTHER THAN PNEUMONECTOMY 1 LOBE LOBECT Right 06/22/2020 ? Thoracotomy, right middle lobectomy, mediastinal lymph node dissection for lung cancer - SIGMOIDOSCOPY FLX DX W/COLLJ SPEC BR/WA IF PFRMD ? 1998 ? Sigmoidoscopy - TONSILLECTOMY HX ? ? - TONSILLECTOMY PRIMARY/SECONDARY ? Tonsillectomy ? ? ? CURRENT MEDICATIONS Current Outpatient Medications Medication Sig - ferrous sulfate (IRON ORAL) Take 65 mg by mouth. - tiZANidine (ZANAFLEX) 2 mg tablet 1 tablet twice daily. - Lactobacillus acidophilus (PROBIOTIC ORAL) Take 1 tablet by mouth once daily. - cholecalciferol, vitamin D3, (VITAMIN D3 ORAL) Take 1 tablet by mouth once daily. - calcium phosphate dibas/vit D3 (VITAMIN D, WITH CALCIUM, ORAL) Take 250 mg by mouth once daily. - rivaroxaban (XARELTO) 20 mg tablet Take 20 mg by mouth once daily. - albuterol HFA (PROVENTIL HFA, VENTOLIN HFA) 90 mcg/actuation inhaler Inhale 2 Puffs as instructed every 4 hours as needed for wheezing/shortness of breath. - meloxicam (MOBIC) 15 mg tablet Take 15 mg by mouth once daily. - DULoxetine (CYMBALTA) 60 mg capsule Take 60 mg by mouth once daily. - pantoprazole DR (PROTONIX) 40 mg tablet Take 1 tablet by mouth once daily. - simvastatin (ZOCOR) 20 mg tablet Take 20 mg by mouth daily at bedtime. ? - umeclidinium-vilantero l (ANORO ELLIPTA) 62.5-25 mcg/actuation inhaler Inhale 1 Inhalation as instructed once daily. - amitriptyline (ELAVIL) 50 mg tablet Take 50 mg by mouth daily at bedtime. - traMADol (ULTRAM) 50 mg tablet Take 50 mg by mouth every 6 hours as needed. - calcium carbonate/vitamin D3 (OS-TESSY 500 + D3 ORAL) Take 1 tablet by mouth once daily. - metoprolol tartrate, short acting, (LOPRESSOR) 25 mg tablet Take 12.5 mg by mouth twice daily. ? - DENOSUMAB (PROLIA SUBCUTANEOUS) Inject subcutaneously once every 6 months. ? No current facility-administered medications for this visit. ? ? ALLERGIES: Patient has no known allergies. ? PERSONAL HISTORY: SOCIAL HISTORY Social History ? Tobacco Use - Smoking status: Former Smoker ? ? Packs/day: 1.00 ? ? Years: 30.00 ? ? Pack years: 30.00 ? ? (more content not included)... Normal [facility] SURGICAL PATHOLOGYon 022 CASE REPORT [facility] Comment on above: Order Comment: Speci men Type: TISSUE SPECIMEN Ordering Facility: [facility] Address: [address] [place] [id number] Result Comment: Surg [facility] Pathology Report Case: [id number] Authorizing Provider: Johnathan Guillermo MD Collected: 11/17/2021 10:56 AM Ordering Location: [facility] Endoscopy Received: 11/17/2021 01:09 PM Pathologist: Johnathan Titus MD Specimens: A) - STOMACH BIOPSY, Gastritis; R/O H. Pylori B) - ESOPHAGUS LOWER BIOPSY, R/O Chang's Performed By: #### S #### [facility] CLIA [id number] [address] [place] [address] FINAL DIAGNOSIS [facility] Comment on above: Order Comment: Speci men Type: TISSUE SPECIMEN Ordering Facility: [facility] Address: [address] [place] [address] Result Comment: A. S tomach, biopsy: - Gastric mucosa with no significant pathologic abnormality. B. Distal esophagus, biopsy: - Squamous mucosa with no significant pathologic abnormality. Performed By: #### S #### [facility] CLIA [id number] [address] [place] [address] FINAL PERFORMING LAB Normal [facility] Comment on above: Order Comment: Speci men Type: TISSUE SPECIMEN Ordering Facility: [facility] Address: [address] [place] [address] Result Comment: Diag nostic interpretation performed at [facility], [address] [place] [address] CLIA# [id number] Electroplater Helper: Jared Casillas M.D. Performed By: #### S #### [facility] CLIA [id number] [address] [place] [address] GROSS DESCRIPTION Normal [facility] Comment on above: Order Comment: Speci men Type: TISSUE SPECIMEN Ordering Facility: [facility] Address: [address] [place] [address] Result Comment: A. S TOMACH BIOPSY. Received in formalin is one piece of naranjo, soft tissue measuring 0.4 x 0.3 x 0.2 cm. Totally submitted in one cassette. B. ESOPHAGUS LOWER BIOPSY. Received in formalin is one piece of naranjo, soft tissue measuring 0.4 x 0.2 x 0.2 cm. Totally submitted in one cassette. Gross examination performed at [facility], [address] [place] [address] FFS 11/17/2021 8:14 PM Performed By: #### S #### [facility] CLIA [id number] [address] [place] [address] [place] Upper GI endoscopyon 11-17-2 022 Upper GI endoscopy [facility] Gastrointestinal Endoscopy Patient Name: Katrina Serrano Procedure Date: 11/17/2021 10:40 AM Date of : 1955 Admit Type: Outpatient Age: 66 Room: [facility] Gender: Female Note Status: Finalized Attending MD: Johnathan Guillermo MD Procedure: Upper GI endoscopy Indications: Suspected upper gastrointestinal bleeding Providers: Johnathan Guillermo MD Patient Profile: This is a 66 year old female. Refer to note in patient chart for documentation of history and physical. Referring Physician: Jhonathan Reyna MD (Referring MD) Medicines: See the Anesthesia note for documentation of the administered medications Complications: No immediate complications. Estimated blood loss: Minimal. Requesting Provider: Procedure: Pre-Anesthesia Assessment: - Prior to the procedure, a History and Physical was performed, and patient medications and allergies were reviewed. The patient's tolerance of previous anesthesia was also reviewed. The risks and benefits of the procedure and the sedation options and risks were discussed with the patient. All questions were answered, and informed consent was obtained. Prior Anticoagulants: The patient has taken Xarelto (rivaroxaban), last dose was 1 day prior to procedure. ASA Grade Assessment: III - A patient with severe systemic disease. After reviewing the risks and benefits, the patient was deemed in satisfactory condition to undergo the procedure. After obtaining informed consent, the endoscope was passed under direct vision. Throughout the procedure, the patient's blood pressure, pulse, and oxygen saturations were monitored continuously. The Endoscope was introduced through the mouth, and advanced to the second part of duodenum. The upper GI endoscopy was accomplished without difficulty. The patient tolerated the procedure well. Moderate Sedation: MAC anesthesia was administered by the anesthesia team. Total Procedure Duration: 0 hours 4 minutes 45 seconds Findings: The examined esophagus was normal. Biopsies were taken with a cold forceps for histology. The Z-line was regular and was found 38 cm from the incisors. Localized minimal inflammation characterized by erythema was found in the prepyloric region of the stomach. Biopsies were taken with a cold forceps for Helicobacter pylori testing. The examined duodenum was normal. No biopsies or other specimens were collected for this exam. Impression: - Normal esophagus. Biopsied. - Z-line regular, 38 cm from the incisors. - Gastritis. Biopsied. - Normal examined duodenum. No specimens collected. Recommendation: - Patient has a contact number available for emergencies. The signs and symptoms of potential delayed complications were discussed with the patient. Return to normal activities tomorrow. Written discharge instructions were provided to the patient. - Resume previous diet. - Continue present medications. - Await pathology results. - Repeat upper endoscopy PRN for surveillance. - Return to physician microbiology lab assistant in 1 week. Procedure Code(s): --- Professional --- 60887, Esophagogastroduodenos copy, flexible, transoral; with biopsy, single or multiple Diagnosis Code(s): --- Professional --- K29.70, Gastritis, unspecified, without bleeding CPT copyright 2019 [employer]. All rights reserved. The codes documented in this report are preliminary and upon soil specialist review may be revised to meet current compliance requirements. Attending Participation: I personally performed the entire procedure. Scope In: 10:55:06 AM Scope Out: 10:59:51 AM MD Johnathan Suggs MD 11/17/2021 11:03:11 AM This report has been signed electronically by Johnathan Guillermo MD Number of Addenda: 0 Note Initiated On: 11/17/2021 10:40 AM Estimated Blood Loss: Estimated blood loss was minimal. Normal [facility] JERALD SCREENINGon 10-14-[address] [facility] [address] CHEST WO IVCONon 10-09-19 [facility] RETIC COUNTon 10-08-2021 Reticulocytes (Bld) [#/Vol] 0.32484 10*3/uL 0.018 - 0.100 M/uL [facility] Reticulocytes (Bld) [#/Vol]o n 10-08-2021 Reticulocytes/100 RBC (Bld) 1.9 % 0.4 - 2.0 % [facility] GI FLUORO CHEST SNIFF TESTon 04-28-2021 GI FLUORO CHEST SNIFF TEST * * *Final Report* * * DATE OF EXAM: Apr 28 2021 11:35AM MDX 5536 - GI FLUORO CHEST SNIFF TEST / PROCEDURE REASON: J98.6-Elevated diaphragm * * * * Physician Interpretation * * * * GI FLUORO CHEST SNIFF TEST HISTORY: Indication: Elevated diaphragm SHORTNESS OF BREATH, POSSIBLE PARALYZED DIAPHRAGM TECHNIQUE: Fluoroscopic Radiation Summary: Plane A, Air Kerma: 30.2 mGy Dose Area Product (DAP): 0.0 mGy*cm^2 Fluoro time: 1:20 min:sec Images obtained: Spot film images/cine fluoroscopy images under fluoroscopic guidance. Images were stored in a permanent archive. Comparison: Chest x-ray 04/07/2021 RESULT: Findings: The LEFT hemidiaphragm is in a normal fashion radiation and expiration. RIGHT hemidiaphragm is elevated and shows very little if any motion on inspiration. Also shows some paradoxical motion with inspiration See procedural note in Epic for further discussion. IMPRESSION: RIGHT hemidiaphragm is elevated and does not appear to show normal movement as discussed. Executive Vp: LISA Transcribe Date/Time: Apr 28 2021 11:38A Dictated by : ALFREDO JUAN DO This examination was interpreted and the report reviewed and electronically signed by: ALFREDO JUAN DO on Apr 28 2021 11:56AM EST [id number] Normal [facility] [id number] (821 05)Ordered By: Certified Orthotist Practice Manager on 06-11-2015 AFP.tumor marker [Mass/Vol] 4.2 ng/mL Normal 0.0-8.3 [facility]; [facility] Work Phone: Comment on above: Christina ECLIA methodol ogy PATIENT WAS FASTINGP ERFORMED BY: [employer]6370 [facility] [id number] CBC W/AUTO DIFF WBC (02075)O rdered By: Certified Orthotist Practice Manager on 06-11-2015 Basophils (Bld) [#/Vol] 0.0 10*3/uL Normal 0.0-0.2 [facility]; [facility] Work Phone: Comment on above: PATIENT WAS FASTINGP ERFORMED BY: Curious Senselin6370 [facility] [id number] Information: [id number] Basophils/100 WBC (Bld) 1 % Normal [facility]; [facility] Work Phone: Comment on above: PATIENT WAS FASTINGP ERFORMED BY: [place] [id number] [facility] [id number] Information: [id number] Eosinophils (Bld) [#/Vol] 0.4 10*3/uL Normal 0.0-0.4 [facility]; [facility] Work Phone: Comment on above: PATIENT WAS FASTINGP ERFORMED BY: [address] [id number] Information: [id number] Eosinophils/100 WBC (Bld) 8 % Normal [facility]; [facility] Work Phone: Comment on above: PATIENT WAS FASTINGP ERFORMED BY: [address] [id number] Information: [id number],[id number] Erythrocyte distribution width (RBC) [Ratio] 14.8 % Normal 12.3-15.4 [facility]; [facility] Work Phone: Comment on above: PATIENT WAS FASTINGP ERFORMED BY: [address] [id number] Information: [id number],[id number] Hematocrit (Bld) [Volume fraction] 41.6 % Normal 34.0-46.6 [facility]; [facility] Work Phone: Comment on above: PATIENT WAS FASTINGP ERFORMED BY: [address] [id number] Information: [id number] Hemoglobin (Bld) [Mass/Vol] 13.5 g/dL Normal 11.1-15.9 [facility]; [facility] Work Phone: Comment on above: PATIENT WAS FASTINGP ERFORMED BY: [place] [id number] [facility] [id number] Information: [id number] Immature granulocytes (Bld) [#/Vol] 0.0 10*3/uL Normal 0.0-0.1 [facility]; [facility] Work Phone: Comment on above: PATIENT WAS FASTINGP ERFORMED BY: [facility] Tristan6370 [facility] [id number] Information: 199510,M11838 Immature granulocytes/100 WBC (Bld) 0 % Normal [facility]; [facility] Work Phone: Comment on above: PATIENT WAS FASTINGP ERFORMED BY: [address] [id number] Information: [id number],[id number] Lymphocytes (Bld) [#/Vol] 1.7 10*3/uL Normal 0.7-3.1 [facility]; [facility] Work Phone: Comment on above: PATIENT WAS FASTINGP ERFORMED BY: [facility] Capo[address] [id number] Information: [id number],[id number] Lymphocytes/100 WBC (Bld) 35 % Normal [facility]; [facility] Work Phone: Comment on above: PATIENT WAS FASTINGP ERFORMED BY: [facility] Vinayak Uyfbzp[address] [id number] Information: [id number],[id number] MCH (RBC) [Entitic mass] 29.2 pg Normal 26.6-33.0 [facility]; [facility] Work Phone: Comment on above: PATIENT WAS FASTINGP ERFORMED BY: [address] [id number] Information: 311373,[id number] MCHC (RBC) [Mass/Vol] 32.5 g/dL Normal 31.5-35.7 [facility] prehensive Internal Medicine; [facility] Work Phone: Comment on above: PATIENT WAS FASTINGP ERFORMED BY: [address] [id number] Information: 443601,S02365 MCV (RBC) [Entitic vol] 90 fL Normal 79-97 [facility]; [facility] Work Phone: Comment on above: PATIENT WAS FASTINGP ERFORMED BY: [facility] Tristan6370 [facility] [id number] Information: [id number],[id number] Monocytes (Bld) [#/Vol] 0.3 10*3/uL Normal 0.1-0.9 [facility]; [facility] Work Phone: Comment on above: PATIENT WAS FASTINGP ERFORMED BY: [facility] Fknuqj2884 [facility] [id number] Information: 009908,C24530 Monocytes/100 WBC (Bld) 6 % Normal [facility]; [facility] Work Phone: Comment on above: PATIENT WAS FASTINGP ERFORMED BY: [facility] Jjbmye5312 [facility] [id number] Information: [id number] Neutrophils (Bld) [#/Vol] 2.4 10*3/uL Normal 1.4-7.0 [facility]; [facility] Work Phone: Comment on above: PATIENT WAS FASTINGP ERFORMED BY: [facility] Vinayak Uyauag4300 [facility] [id number] Information: [id number],[id number] Neutrophils/100 WBC (Bld) 50 % Normal [facility]; [facility] Work Phone: Comment on above: PATIENT WAS FASTINGP ERFORMED BY: [facility] Ghppfr4141 [facility] [id number] Information: [id number] Platelets (Bld) [#/Vol] 265 10*3/uL Normal 150-379 [facility]; [facility] Work Phone: Comment on above: PATIENT WAS FASTINGP ERFORMED BY: [facility] Pgglwt1674 [facility] [id number] Information: [id number] RBC (Bld) [#/Vol] 4.62 10*6/uL Normal 3.77-5.28 [facility] Internal [facility]; [facility] Work Phone: Comment on above: PATIENT WAS FASTINGP ERFORMED BY: [facility] Tristan6370 [place] [id number] Information: [id number] WBC (Bld) [#/Vol] 4.8 10*3/uL Normal 3.4-10.8 [facility]; [facility] Work Phone: Comment on above: PATIENT WAS FASTINGP ERFORMED BY: [facility] Tristan6[address] [place] [facility] [id number] Information: [id number] LIPID PANEL ([id number])Ordered B y: Certified Orthotist Practice Manager on 06-11-2015 Cholesterol [Mass/Vol] 129 mg/dL Normal 100-199 [facility] Internal [facility]; [facility] Work Phone: Comment on above: PATIENT WAS FASTINGP ERFORMED BY: [facility] Tristan6370 [facility] [place] [id number] Cholesterol in HDL [Mass/Vol] 46 mg/dL Normal [facility]; [facility] Work Phone: Comment on above: According to ATP-III Guidelines, HDL-C >59 mg/dL is considered anegative risk factor for CHD. PATIENT WAS FASTINGP ERFORMED BY: [facility] LabTriny VazquezHkawka7082 [facility] [place] [id number] Cholesterol in LDL [Mass/Vol] 68 mg/dL Normal 0-99 [facility]; [facility] Work Phone: Comment on above: PATIENT WAS FASTINGP ERFORMED BY: [facility] LabTriny VazquezUclsrl6534 [facility] [place] [id number] Cholesterol in LDL/Cholesterol in HDL [Mass ratio] 1.5 {ratio_units} Normal 0.0-3.2 [facility]; [facility] Work Phone: Comment on above: LDL/HDL Ratio Men Wo men 1/2 Avg.Risk 1.0 1.5 Avg.Risk 3.6 3.2 2X Avg.Risk 6.2 5.0 3X Avg.Risk 8.0 6.1 PATIENT WAS FASTINGP ERFORMED BY: [facility] LabDoloressourav Hybyrc5951 [facility] [id number] Cholesterol in VLDL [Mass/Vol] 15 mg/dL Normal 5-40 [facility]; [facility] Work Phone: Comment on above: PATIENT WAS FASTINGP ERFORMED BY: [facility] Fwcmey6805 [facility] [id number] Triglyceride [Mass/Vol] 75 mg/dL Normal 0-149 [facility]; [facility] Work Phone: Comment on above: PATIENT WAS FASTINGP ERFORMED BY: [facility] Pyofjb1919 [facility] [id number] METABOLIC PANEL, COMPREHENSI VE ([id number])Ordered By: Certified Orthotist Practice Manager on 06-11-2015 Albumin [Mass/Vol] 4.1 g/dL Normal 3.5-5.5 [facility]; [facility] Work Phone: Comment on above: PATIENT WAS FASTINGP ERFORMED BY: [facility] Nzzyip7884 [facility] [id number] Albumin/Globulin [Mass ratio] 1.6 {ratio} Normal 1.1-2.5 [facility]; [facility] Work Phone: Comment on above: PATIENT WAS FASTINGP ERFORMED BY: [facility] Tuvbus5923 [facility] [id number] ALP [Catalytic activity/Vol] 62 U/L Normal 39-117 [facility]; [facility] Work Phone: Comment on above: PATIENT WAS FASTINGP ERFORMED BY: [facility] Ibzuss3988 [facility] [id number] ALT [Catalytic activity/Vol] 17 U/L Normal 0-32 [facility]; [facility] Work Phone: Comment on above: PATIENT WAS FASTINGP ERFORMED BY: [facility] Licea Qrbyvj7333 [address] [facility] [place] [id number] AST [Catalytic activity/Vol] 24 U/L Normal 0-40 [facility]; [facility] Work Phone: Comment on above: PATIENT WAS FASTINGP ERFORMED BY: [facility] Tristan6[address] [place] [facility] [place] [id number] Bilirubin [Mass/Vol] 0.4 mg/dL Normal 0.0-1.2 [facility] rehensive Internal Medicine; [facility] Work Phone: Comment on above: PATIENT WAS FASTINGP ERFORMED BY: [facility] Licea Smvjxw9104 [place] [facility] [id number] Calcium [Mass/Vol] 9.0 mg/dL Normal 8.7-10.2 [facility]; [facility] Work Phone: Comment on above: PATIENT WAS FASTINGP ERFORMED BY: Vinayak Kljmfg2014 [place] [facility] [id number] Chloride [Moles/Vol] 104 mmol/L Normal 97-108 Comp rehensive Internal Medicine; [facility] Work Phone: Comment on above: PATIENT WAS FASTINGP ERFORMED BY: [facility] Licea Nyijro3840 [place] [facility] [id number] CO2 [Moles/Vol] 23 mmol/L Normal 18-29 [facility]; [facility] Work Phone: Comment on above: PATIENT WAS FASTINGP ERFORMED BY: LabDolores Pkmgey2328 [place] [facility] [id number] Creatinine [Mass/Vol] 0.66 mg/dL Normal 0.57-1.00 [facility]; [facility] Work Phone: Comment on above: PATIENT WAS FASTINGP ERFORMED BY: [facility] LabDolores Kwngtl6274 [place] [facility] [id number] GFR/1.73 sq M.predicted among blacks CKD-EPI (S/P/Bld) [Vol rate/Area] 112 mL/min/1.73 Normal [facility]; [facility] Work Phone: Comment on above: PATIENT WAS FASTINGP ERFORMED BY: [facility] LabCo Stugma0789 [address] RoadDublin [place] [id number] GFR/1.73 sq M.predicted among non-blacks CKD-EPI (S/P/Bld) [Vol rate/Area] 97 mL/min/1.73 Normal [facility]; [facility] Work Phone: Comment on above: PATIENT WAS FASTINGP ERFORMED BY: [facility] LabCo Ruyaof6134 [address] RoadDublin [place] [id number] Globulin (S) [Mass/Vol] 2.5 g/dL Normal 1.5-4.5 [facility]; [facility] Work Phone: Comment on above: PATIENT WAS FASTINGP ERFORMED BY: [facility] LabCo Qtdxdk3723 [address] RoadDublin [place] [id number] Glucose [Mass/Vol] 78 mg/dL Normal 65-99 [facility] Internal Medicine; Comprehensive Internal Medicine Work Phone: Comment on above: PATIENT WAS FASTINGP ERFORMED BY: [facility] Lab[facility] Rhlkmd8846 Ga RoadDublin [place] [id number] Potassium [Moles/Vol] 4.7 mmol/L Normal 3.5-5.2 [facility] prehensive Internal Medicine; [facility] Work Phone: Comment on above: PATIENT WAS FASTINGP ERFORMED BY: [facility] Hfbxgt9728 Ga RoadDublin [place] [id number] Protein [Mass/Vol] 6.6 g/dL Normal 6.0-8.5 [facility] Internal Medicine; [facility] Work Phone: Comment on above: PATIENT WAS FASTINGP ERFORMED BY: CB [facility] Ebrxug9928 Ga RoadDublin [place] [id number] Sodium [Moles/Vol] 141 mmol/L Normal 134-144 [facility] Internal Medicine; [facility] Work Phone: Comment on above: PATIENT WAS FASTINGP ERFORMED BY: [facility] Ywwqxb6411 Ga RoadDublin [place] [id number] Urea nitrogen [Mass/Vol] 7 mg/dL Normal 6-24 [facility]; [facility] Work Phone: Comment on above: PATIENT WAS FASTINGP ERFORMED BY: [facility] Tristan[address] RoadStevenblin [place] [id number] Urea nitrogen/Creatinine [Mass ratio] 11 mg/mg Normal 9-23 [facility]; [facility] Work Phone: Comment on above: PATIENT WAS FASTINGP ERFORMED BY: CB [facility] Dqicon6150 [address] RoadDublin [place] [id number] VITAMIN B-12 (CYANOCOBALAMIN ) (66229)Ordered By: Certified Orthotist Practice Manager on 06-11-2015 Cobalamin (Vitamin B12) [Mass/Vol] 699 pg/mL Normal 211-946 [facility]; [facility] Work Phone: Comment on above: PATIENT WAS FASTINGP ERFORMED BY: [facility] Sbkfdl4131 Ga [facility] AlpenaDublin [place] [id number] Vitamin D Hydroxy (17353)Ord ered By: Certified Orthotist Practice Manager on 06-11-2015 25-hydroxyvitamin D [Mass/Vol] 62.4 ng/mL Normal 30.0-100.0 [facility]; [facility] Work Phone: Comment on above: Vitamin D deficiency has been defined by the [place] of[place] and an Endocrine Society practice guideline as alevel of serum 25-OH vitamin D less than 20 ng/mL (1,2).The Endocrine Society went on to further define vitamin Dinsufficiency as a level between 21 and 29 ng/mL (2).1. IOM ([place] of Medicine). 2010. Dietary reference intakes for calcium and D. [place]: The National Academies Press.2. Marcos MF, Hemalatha [place], Amado GUTIERREZ, et al. Evaluation, treatment, and prevention of vitamin D deficiency: an Endocrine Society clinical practice guideline. JCEM. 2010; 96(7):1911-30. PATIENT WAS FASTINGP ERFORMED BY: CB [facility] Chchau2536 Ga RoadDublin [place] [id number] HEPATIC FUNCTION PANEL (8007 6)Ordered By: Certified Orthotist Practice Manager on 12-04-2013 Albumin [Mass/Vol] 4.0 g/dL Normal 3.5-5.5 [facility] Internal Medicine; [facility] Work Phone: Comment on above: PATIENT NOT FASTINGP ERFORMED BY: [facility] Tristna[address] RoadDublin [place] [id number] Information: [id number] ALP [Catalytic activity/Vol] 132 U/L Abnormal 39-117 [facility]; [facility] Work Phone: Comment on above: PATIENT NOT FASTINGP ERFORMED BY: CB [facility] Ryyclx8817 [address] RoadDublin [place] [id number] Information: [id number] ALT [Catalytic activity/Vol] 14 U/L Normal 0-32 [facility]; [facility] Work Phone: Comment on above: PATIENT NOT FASTINGP ERFORMED BY: CB [facility] Mcktyt6358 Ga RoadCrawley Memorial Hospitalin [place] [id number] Information: [id number] AST [Catalytic activity/Vol] 20 U/L Normal 0-40 [facility]; [facility] Work Phone: Comment on above: PATIENT NOT FASTINGP ERFORMED BY: [facility] LabCosourav Wpalzo5993 Ga [facility] Centerbl[facility] [place] [id number] Information: [id number] Bilirubin [Mass/Vol] 0.2 mg/dL Normal 0.0-1.2 [facility] Internal Medicine; [facility] Work Phone: Comment on above: PATIENT NOT FASTINGP ERFORMED BY: CB [facility] Zkxglo5257 Ga RoadCrawley Memorial Hospitalin [place] [id number] Information: [id number],S89137 Bilirubin.direct [Mass/Vol] 0.07 mg/dL Normal 0.00-0.40 [facility]; [facility] Work Phone: Comment on above: PATIENT NOT FASTINGP ERFORMED BY: CB [facility] Pnnrmi0419 Ga Roadblin [place] [id number] Information: [id number] Protein [Mass/Vol] 6.4 g/dL Normal 6.0-8.5 [facility] Internal Medicine; [facility] Work Phone: Comment on above: PATIENT NOT FASTINGP ERFORMED BY: [facility] LabCosourav VazquezUtracz9389 Ga RoadCrawley Memorial Hospitalin [place] [id number] Information: [id number] HEPATIC FUNCTION PANEL (8007 6)Ordered By: Certified Orthotist Practice Manager on 07-22-2013 Albumin [Mass/Vol] 4.3 g/dL Normal 3.5-5.5 [facility] Internal Medicine; [facility] Work Phone: Comment on above: PATIENT NOT FASTINGP ERFORMED BY: [facility] Gzffhn1778 Ga [facility] [id number] Information: [id number], [id number] ALP [Catalytic activity/Vol] 122 U/L Abnormal 39-117 [facility]; [facility] Work Phone: Comment on above: PATIENT NOT FASTINGP ERFORMED BY: CB [facility] Htbpqj5084 [address] [facility] [id number] Information: [id number], [id number] ALT [Catalytic activity/Vol] 17 U/L Normal 0-32 [facility]; [facility] Work Phone: Comment on above: PATIENT NOT FASTINGP ERFORMED BY: [facility] Kqqdnr6883 [address] [facility] [id number] Information: [id number], [id number] AST [Catalytic activity/Vol] 20 U/L Normal 0-40 [facility]; [facility] Work Phone: Comment on above: PATIENT NOT FASTINGP ERFORMED BY: CB [facility] Fkyqdp9246 Ga [facility] [place] [id number] Information: [id number], [id number] Bilirubin [Mass/Vol] 0.3 mg/dL Normal 0.0-1.2 [facility] Internal Medicine; [facility] Work Phone: Comment on above: PATIENT NOT FASTINGP ERFORMED BY: CB [facility] Wonomy9423 [facility] [id number] Information: [id number], [id number] Bilirubin.direct [Mass/Vol] 0.10 mg/dL Normal 0.00-0.40 [facility]; [facility] Work Phone: Comment on above: PATIENT NOT FASTINGP ERFORMED BY: [facility] Sfufbi8639 [facility] [id number] Information: [id number], 138529 Protein [Mass/Vol] 6.9 g/dL Normal 6.0-8.5 [facility] Internal Medicine; [facility] Work Phone: Comment on above: PATIENT NOT FASTINGP ERFORMED BY: [facility] Licea Kuostu3003 [facility] [id number] Information: [id number], 073108 Vitamin D Hydroxy (89442)Ord ered By: Certified Orthotist Practice Manager on 07-22-2013 25-hydroxyvitamin D [Mass/Vol] 44.0 ng/mL Normal 30.0-100.0 [facility]; [facility] Work Phone: Comment on above: Vitamin D deficiency has been defined by the [place] of[place] and an Endocrine Society practice guideline as alevel of serum 25-OH vitamin D less than 20 ng/mL (1,2).The Endocrine Society went on to further define vitamin Dinsufficiency as a level between 21 and 29 ng/mL (2).1. IOM ([place] of [place]). 2010. Dietary reference intakes for calcium and D. [place]: The National Academies Press.2. Marcos MF, Hemalatha WILKS, Amado GUTIERREZ, et al. Evaluation, treatment, and prevention of vitamin D deficiency: an Endocrine Society clinical practice guideline. JCEM. 2010; 96(7):1911-30. PATIENT NOT FASTINGP ERFORMED BY: [facility] ScanlonN[facility] Cmalsl0610 [facility] [id number] ALKALINE PHOSPHATASE (05027) Ordered By: Certified Orthotist Practice Manager on 05-15-2013 ALP [Catalytic activity/Vol] 126 U/L Abnormal 39-117 [facility]; [facility] Work Phone: Comment on above: PATIENT NOT FASTINGP ERFORMED BY: [facility] Ejjgre4196 [address] [facility]in [place] [id number] Information: 570753,V68179 Alkaline Phosphatase (02930) Ordered By: Certified Orthotist Practice Manager on 03-20-2013 ALP [Catalytic activity/Vol] 125 U/L Abnormal 39-117 [facility]; [facility] Work Phone: Comment on above: PATIENT NOT FASTINGP ERFORMED BY: CB [facility] Cfcpac7889 Ga Roadblin [place] [id number] Information: [id number] GGT (Gamma Glutamyl Transfer ase) (52709)Ordered By: Certified Orthotist Practice Manager on 03-20-2013 Gamma glutamyl transferase [Catalytic activity/Vol] 34 U/L Normal 0-60 [facility]; [facility] Work Phone: Comment on above: PATIENT NOT FASTINGP ERFORMED BY: [facility] Weypqz[address] [facility] [id number] URINE LIMA CULTURE-TRAY COL C OUNT (96353)Ordered By: Certified Orthotist Practice Manager on 02-28-2013 Bacteria identified Cx Nom (U) Final report Normal [facility]; [facility] Work Phone: Comment on above: PATIENT NOT FASTINGP ERFORMED BY: [facility] Cqptgn4012 [address] [facility]in [place] [id number] Information: SRC:UR [id number] Bacteria identified Cx Nom (U) Escherichia coli Normal [facility]; [facility] Work Phone: Comment on above: Greater than 100,000 colony forming units per mL PATIENT NOT FASTINGP ERFORMED BY: CB [facility] Dbcgno0358 Ga [facility]in [place] [id number] Information: SRC:UR G04863 Other Antibiotic [Susc] MIHEAD Normal [facility]; [facility] Work Phone: Comment on above: S = Susceptibl e; I = Intermediate; R = Resistant P = Positive; N = Negative MICS are expressed in micrograms per mL Antibiotic RSLT#1 RSLT#2 RSLT#3 RSLT#4Amoxicillin/Clavulanic Acid SAmpicillin SCefepime SCeftriaxone SCefuroxime SCephalothin ICiprofloxacin SErtapenem SGentamicin SImipenem SLevofloxacin SNitrofurantoin SPiperacillin STetracycline STobramycin STrimethoprim/Sulfa S PATIENT NOT FASTINGP ERFORMED BY: [facility] Jmpucx1613 Ga RoadWakeMed [facility] [id number] Information: SRC:UR O65014 Urinalysis, Office (22696)Or dered By: Dee Dee Jimenez on 02-27-2013 Bilirubin Ql (U) Negative Normal Comprehe nsive Internal Medicine; [facility] Work Phone: Glucose Test strip (U) [Mass/Vol] Negative Normal [facility]; [facility] Work Phone: Hemoglobin Ql (U) Non Hemolyzed Moderate Normal [facility]; [facility] Work Phone: Ketones Ql (U) Negative Normal [facility] [place] Internal Medicine; [facility] Work Phone: Leukocyte esterase Test strip Ql (U) Moderate Normal [facility]; [facility] Work Phone: Nitrite Ql (U) Negative Normal [facility] [facility]; [facility] Work Phone: pH (U) 6.0 [pH] Normal [facility]; [facility] Work Phone: Protein Ql (U) 30 mg/dL Normal Comprehens [facility] Internal [facility]; [facility] Work Phone: Specific gravity (U) [Rel density] 1.025 1 Normal [facility]; [facility] Work Phone: Urobilinogen (24H U) [Mass/Time] Normal Normal [facility]; [facility] Work Phone: CBC WITH MANUAL DIFF (69996) Ordered By: Certified Orthotist Practice Manager on 02-07-2013 Basophils (Bld) [#/Vol] 0.0 10*3/uL Normal 0.0-0.2 [facility]; [facility] Work Phone: Comment on above: PATIENT WAS FASTINGP ERFORMED BY: [facility] Coykws9246 [facility] [id number] Information: [id number],P44770 Basophils/100 WBC (Bld) 1 % Normal 0-3 [facility]; [facility] Work Phone: Comment on above: PATIENT WAS FASTINGP ERFORMED BY: [place] 7385270 [facility] [id number] Information: 776094,[id number] Eosinophils (Bld) [#/Vol] 0.3 10*3/uL Normal 0.0-0.4 [facility]; [facility] Work Phone: Comment on above: PATIENT WAS FASTINGP ERFORMED BY: [place] 7385270 [facility] [id number] Information: 712718,L87523 Eosinophils/100 WBC (Bld) 5 % Normal 0-5 [facility]; [facility] Work Phone: Comment on above: PATIENT WAS FASTINGP ERFORMED BY: [address] [id number] Information: 664625,D03349 Erythrocyte distribution width (RBC) [Ratio] 14.3 % Normal 12.3-15.4 [facility]; [facility] Work Phone: Comment on above: PATIENT WAS FASTINGP ERFORMED BY: [place] 7385270 [facility] [id number] Information: 582160,L05919 Hematocrit (Bld) [Volume fraction] 39.4 % Normal 34.0-46.6 [facility]; [facility] Work Phone: Comment on above: PATIENT WAS FASTINGP ERFORMED BY: [facility]6370 [facility] [id number] Information: 593934,L87417 Hemoglobin (Bld) [Mass/Vol] 12.9 g/dL Normal 11.1-15.9 [facility]; [facility] Work Phone: Comment on above: PATIENT WAS FASTINGP ERFORMED BY: [facility] Tristan6370 [facility] [id number] Information: 472976,P28547 Immature granulocytes (Bld) [#/Vol] 0.0 10*3/uL Normal 0.0-0.1 [facility]; [facility] Work Phone: Comment on above: PATIENT WAS FASTINGP ERFORMED BY: [facility] Scanlon[address] [id number] Information: [id number],Y71285 Immature granulocytes/100 WBC (Bld) 0 % Normal 0-2 [facility]; [facility] Work Phone: Comment on above: PATIENT WAS FASTINGP ERFORMED BY: [facility] Tlxohr[address] [id number] Information: 158290,I35954 Lymphocytes (Bld) [#/Vol] 2.0 10*3/uL Normal 0.7-3.1 [facility]; [facility] Work Phone: Comment on above: PATIENT WAS FASTINGP ERFORMED BY: [facility] Licea Vnekiv4857 [facility] [id number] Information: 149868,X73736 Lymphocytes/100 WBC (Bld) 35 % Normal 14-46 [facility]; [facility] Work Phone: Comment on above: PATIENT WAS FASTINGP ERFORMED BY: [place] [id number] [facility] [id number] Information: [id number],Q18850 MCH (RBC) [Entitic mass] 30.3 pg Normal 26.6-33.0 [facility]; [facility] Work Phone: Comment on above: PATIENT WAS FASTINGP ERFORMED BY: [place] 7385270 [facility] [id number] Information: 463950,[id number] MCHC (RBC) [Mass/Vol] 32.7 g/dL Normal 31.5-35.7 [facility] prehensive Internal Medicine; [facility] Work Phone: Comment on above: PATIENT WAS FASTINGP ERFORMED BY: [facility] Tristan6370 [facility] [id number] Information: 676132,I02819 MCV (RBC) [Entitic vol] 93 fL Normal 79-97 [facility]; [facility] Work Phone: Comment on above: PATIENT WAS FASTINGP ERFORMED BY: [facility] ScanlonN[facility] Mbxysr4123 [facility] [id number] Information: [id number] Monocytes (Bld) [#/Vol] 0.4 10*3/uL Normal 0.1-0.9 [facility]; [facility] Work Phone: Comment on above: PATIENT WAS FASTINGP ERFORMED BY: [facility] Licea Ucxpuh[address] [id number] Information: [id number],J31677 Monocytes/100 WBC (Bld) 6 % Normal 4-12 [facility]; [facility] Work Phone: Comment on above: PATIENT WAS FASTINGP ERFORMED BY: [facility] Vazquezlin6370 [facility] [id number] Information: 620080,M20131 Neutrophils (Bld) [#/Vol] 3.1 10*3/uL Normal 1.4-7.0 [facility]; [facility] Work Phone: Comment on above: PATIENT WAS FASTINGP ERFORMED BY: [facility] LabH[facility]6370 [facility] [id number] Information: [id number],H13430 Neutrophils/100 WBC (Bld) 53 % Normal 40-74 [facility]; [facility] Work Phone: Comment on above: PATIENT WAS FASTINGP ERFORMED BY: [place] 7385270 [facility] [id number] Information: [id number],Z65723 Platelets (Bld) [#/Vol] 292 10*3/uL Normal 155-379 [facility]; [facility] Work Phone: Comment on above: PATIENT WAS FASTINGP ERFORMED BY: [facility] Jessica Tristan6370 [facility] [id number] Information: 127169,G65848 RBC (Bld) [#/Vol] 4.26 10*6/uL Normal 3.77-5.28 [facility] Internal Medicine; [facility] Work Phone: Comment on above: PATIENT WAS FASTINGP ERFORMED BY: [facility] Hmdywh5663 [facility] [id number] Information: [id number] WBC (Bld) [#/Vol] 5.8 10*3/uL Normal 3.4-10.8 [facility] Internal Medicine; [facility] Work Phone: Comment on above: PATIENT WAS FASTINGP ERFORMED BY: [facility] Wqgaco3415 [facility] [id number] Information: [id number],[id number] LIPID PANEL (63110)Ordered B y: Certified Orthotist Practice Manager on 02-07-2013 Cholesterol [Mass/Vol] 170 mg/dL Normal 100-199 [facility] Internal Medicine; [facility] Work Phone: Comment on above: PATIENT WAS FASTINGP ERFORMED BY: [facility] Dprdhd1899 [facility] [id number] Cholesterol in HDL [Mass/Vol] 48 mg/dL Normal [facility]; [facility] Work Phone: Comment on above: According to ATP-III Guidelines, HDL-C >59 mg/dL is considered anegative risk factor for CHD. PATIENT WAS FASTINGP ERFORMED BY: [facility] LabN[facility] Gapbem7648 [facility] [id number] Cholesterol in LDL [Mass/Vol] 101 mg/dL Abnormal 0-99 [facility]; [facility] Work Phone: Comment on above: PATIENT WAS FASTINGP ERFORMED BY: CB [facility] Jshioc9111 [address] RoadDublin [place] [id number] Cholesterol in LDL/Cholesterol in HDL [Mass ratio] 2.1 {ratio_units} Normal 0.0-3.2 [facility]; [facility] Work Phone: Comment on above: PATIENT WAS FASTINGP ERFORMED BY: CB [facility] Jndsfg3438 [address] RoadDublin [place] [id number] Cholesterol in VLDL [Mass/Vol] 21 mg/dL Normal 5-40 [facility]; [facility] Work Phone: Comment on above: PATIENT WAS FASTINGP ERFORMED BY: CB [facility] Ngktmu1715 [address] RoadDublin [place] [id number] Triglyceride [Mass/Vol] 103 mg/dL Normal 0-149 [facility]; [facility] Work Phone: Comment on above: PATIENT WAS FASTINGP ERFORMED BY: CB [facility] Mmsiud3693 [address] RoadDublin [place] [id number] METABOLIC PANEL, COMPREHENSI VE (05507)Ordered By: Certified Orthotist Practice Manager on 02-07-2013 Albumin [Mass/Vol] 4.2 g/dL Normal 3.5-5.5 [facility] Internal Medicine; [facility] Work Phone: Comment on above: PATIENT WAS FASTINGP ERFORMED BY: [facility] Gniuna9541 [address] RoadDublin [place] [id number] Albumin/Globulin [Mass ratio] 1.6 {ratio} Normal 1.1-2.5 [facility]; [facility] Work Phone: Comment on above: PATIENT WAS FASTINGP ERFORMED BY: [facility] Klohpb0115 [address] RoadDublin [place] [id number] ALP [Catalytic activity/Vol] 130 U/L Abnormal 42-107 [facility]; [facility] Work Phone: Comment on above: PATIENT WAS FASTINGP ERFORMED BY: CB [facility] Sqrapv5279 [address] RoadDublin [place] [id number] ALT [Catalytic activity/Vol] 19 U/L Normal 0-32 [facility]; [facility] Work Phone: Comment on above: PATIENT WAS FASTINGP ERFORMED BY: CB [facility] Mbzgxa9702 [address] RoadDublin [place] [id number] AST [Catalytic activity/Vol] 21 U/L Normal 0-40 [facility]; [facility] Work Phone: Comment on above: PATIENT WAS FASTINGP ERFORMED BY: CB [facility] Ofymts5961 [address] RoadDublin [place] [id number] Bilirubin [Mass/Vol] 0.3 mg/dL Normal 0.0-1.2 Comp rehensive Internal Medicine; [facility] Work Phone: Comment on above: PATIENT WAS FASTINGP ERFORMED BY: [facility] Ltdkrq4975 Ga RoadDublin [place] [id number] Calcium [Mass/Vol] 9.7 mg/dL Normal 8.7-10.2 [facility] Internal Medicine; [facility] Work Phone: Comment on above: PATIENT WAS FASTINGP ERFORMED BY: CB [facility] Nkayou5211 [address] RoadDublin [place] [id number] Chloride [Moles/Vol] 107 mmol/L Normal 97-108 Comp rehensive Internal Medicine; [facility] Work Phone: Comment on above: PATIENT WAS FASTINGP ERFORMED BY: CB [facility] Fchpis9042 [address] RoadDublin [place] [id number] CO2 [Moles/Vol] 24 mmol/L Normal 19-28 [facility] Internal Medicine; [facility] Work Phone: Comment on above: PATIENT WAS FASTINGP ERFORMED BY: CB [facility] Tlszrr1887 [address] RoadDublin [place] [id number] Creatinine [Mass/Vol] 0.62 mg/dL Normal 0.57-1.00 [facility]; [facility] Work Phone: Comment on above: PATIENT WAS FASTINGP ERFORMED BY: CB [facility] Dqkkvw0101 [address] RoadDublin [place] [id number] GFR/1.73 sq M.predicted among blacks CKD-EPI (S/P/Bld) [Vol rate/Area] 116 mL/min/1.73 Normal [facility]; [facility] Work Phone: Comment on above: PATIENT WAS FASTINGP ERFORMED BY: [facility] Ygcgwe3042 [address] [facility]bl[facility] [place] [id number] GFR/1.73 sq M.predicted among non-blacks CKD-EPI (S/P/Bld) [Vol rate/Area] 100 mL/min/1.73 Normal [facility]; [facility] Work Phone: Comment on above: PATIENT WAS FASTINGP ERFORMED BY: [facility]6370 [facility] [place] [id number] Globulin (S) [Mass/Vol] 2.6 g/dL Normal 1.5-4.5 [facility]; [facility] Work Phone: Comment on above: PATIENT WAS FASTINGP ERFORMED BY: [facility]6370 [facility] [id number] Glucose [Mass/Vol] 95 mg/dL Normal 65-99 [facility] healthive Internal [facility]; [facility] Work Phone: Comment on above: PATIENT WAS FASTINGP ERFORMED BY: [facility]6370 [facility] [id number] Potassium [Moles/Vol] 4.5 mmol/L Normal 3.5-5.2 [facility] prehensive Internal Medicine; [facility] Work Phone: Comment on above: PATIENT WAS FASTINGP ERFORMED BY: [facility] Zgbuem9316 [facility] [id number] Protein [Mass/Vol] 6.8 g/dL Normal 6.0-8.5 [facility]; [facility] Work Phone: Comment on above: PATIENT WAS FASTINGP ERFORMED BY: [facility] [id number] [facility] [place] [id number] Sodium [Moles/Vol] 144 mmol/L Normal 134-144 [facility]; [facility] Work Phone: Comment on above: PATIENT WAS FASTINGP ERFORMED BY: CB [facility] [id number] RoadDublin [place] [id number] Urea nitrogen [Mass/Vol] 10 mg/dL Normal 6-24 [facility]; [facility] Work Phone: Comment on above: PATIENT WAS FASTINGP ERFORMED BY: CB [facility] [id number] RoadDublin [place] [id number] Urea nitrogen/Creatinine [Mass ratio] 16 mg/mg Normal 9-23 [facility]; [facility] Work Phone: Comment on above: PATIENT WAS FASTINGP ERFORMED BY: CB [facility] [id number] RoadDublin [place] [id number] TSH ([id number])Ordered By: Syste m Radial Drill Press Operator on 02-07-2013 TSH Qn 0.660 {uIU/mL} Normal 0.450-4.500 [facility] Internal Medicine; [facility] Work Phone: Comment on above: PATIENT WAS FASTINGP ERFORMED BY: CB [facility] [id number]Dublin [place] [id number] Vitamin D Hydroxy ([id number])Ord ered By: Certified Orthotist Practice Manager on 02-07-2013 25-hydroxyvitamin D [Mass/Vol] 55.8 ng/mL Normal 30.0-100.0 [facility]; [facility] Work Phone: Comment on above: Vitamin D deficiency has been defined by the [place] [employer] and an Endocrine Society practice guideline as alevel of serum 25-OH vitamin D less than 20 ng/mL (1,2).The Endocrine Society went on to further define vitamin Dinsufficiency as a level between 21 and 29 ng/mL (2).1. IOM ([place] of [employer]). 2010. Dietary reference intakes for calcium and D. [place]: The National Academies Press.2. Marcos MF, Hemalatha WILKS, Amado GUTIERREZ, et al. Evaluation, treatment, and prevention of vitamin D deficiency: an Endocrine Society clinical practice guideline. JCEM. 2010; 96(7):1911-30. PATIENT WAS FASTINGP ERFORMED BY: CB [facility] [id number] RoadDublin [place] [id number] URINE LIMA CULTURE-TRAY COL C OUNT ([id number])Ordered By: Yudelka Hale on 01-20-2009 Bacteria identified Cx Nom (U) Final report Normal [facility]; [facility] Work Phone: Comment on above: PATIENT NOT FASTINGC linical Information: SRC:UR ADD [id number] PERFORMED BY: [employer] [facility]per6[address] [employer].comformerly [facility] [id number] Bacteria identified Cx Nom (U) NG36 Normal [facility]; [facility] Work Phone: Comment on above: No growth in 36 - 48 hours. PATIENT NOT FASTINGC linical Information: SRC:UR ADD [id number] PERFORMED BY: [employer] [facility] [facility] [id number] Urinalysis, Office ([id number])Or dered By: Radhika Dooley on 01-19-2009 Bilirubin Ql (U) Negative Normal Comprehe nsive Internal Medicine; [facility] Work Phone: Glucose Test strip (U) [Mass/Vol] Negative Normal [facility]; [facility] Work Phone: Hemoglobin Ql (U) Negative Normal Compreh ensive Internal Medicine; [facility] Work Phone: Ketones Ql (U) Negative Normal [facility] [place] [facility]; [facility] Work Phone: Leukocyte esterase Test strip Ql (U) Trace Normal [facility]; [facility] Work Phone: Nitrite Ql (U) Negative Normal [facility] [place] [facility]; [facility] Work Phone: pH (U) 6.0 [pH] Normal [facility]; [facility] Work Phone: Protein Ql (U) Negative Normal [facility]; [facility] Work Phone: Specific gravity (U) [Rel density] 1.005 1 Normal [facility]; [facility] Work Phone: Urobilinogen (24H U) [Mass/Time] 2 mg/dL Normal [facility]; [facility] Work Phone: Vital Signs Date Time Vital Sign Value Performing Clinician Facility 08-07-2024 10:11-0400 Body mass index (BMI) [Ratio] 33.26 kg/m2 Ronald Click MACHINIST JOB SETTER.DRY YARD WORKER Work Phone: [facility] 08-07-2024 10:11-0400 Body weight 89.36 kg Ronald Click MACHINIST JOB SETTER.DRY YARD WORKER Work Phone: [facility] 08-07-2024 10:11-0400 Diastolic blood pressure 68 mm[Hg] Ronald Click MACHINIST JOB SETTER.DRY YARD WORKER Work Phone: [facility] 08-07-2024 10:11-0400 Heart rate 68 /min Ronald Click MACHINIST JOB SETTER.DRY YARD WORKER Work Phone: [facility] 08-07-2024 10:11-0400 Respiratory rate 18 /min Ronald Click MACHINIST JOB SETTER.DRY YARD WORKER Work Phone: [facility] 08-07-2024 10:11-0400 SaO2% (BldA) [Mass fraction] 97 % Ronald Click MACHINIST JOB SETTER.DRY YARD WORKER Work Phone: [facility] 08-07-2024 10:11-0400 Systolic blood pressure 108 mm[Hg] Ronald Click MACHINIST JOB SETTER.DRY YARD WORKER Work Phone: [facility] 08-07-2024 10:04-0400 Body height 163.9 cm Pulm Wstr Work Phone: [facility] 08-07-2024 10:04-0400 Body mass index (BMI) [Ratio] 33.26 kg/m2 Pulm Wstr Work Phone: [facility] 08-07-2024 10:04-0400 Body weight 89.36 kg Pulm Wstr Work Phone: [facility] 08-07-2024 10:04-0400 Respiratory rate 18 /min Pulm Wstr Work Phone: [facility] 07-17-2024 15:26-0400 Body height 167.6 cm Dennis Marcial MD Work Phone: [facility] 07-17-2024 15:26-0400 Body mass index (BMI) [Ratio] 31.31 kg/m2 Dennis Marcial MD Work Phone: [facility] 07-17-2024 15:26-0400 Body temperature 97.59 [degF] Dennis Marcial MD Work Phone: [facility] 07-17-2024 15:26-0400 Body weight 88 kg Dennis Marcial MD Work Phone: [facility] 07-17-2024 15:26-0400 Diastolic blood pressure 84 mm[Hg] Dennis Marcial MD Work Phone: [facility] 07-17-2024 15:26-0400 Heart rate 66 /min Dennis Marcial MD Work Phone: [facility] 07-17-2024 15:26-0400 Respiratory rate 18 /min Dennis Marcial MD Work Phone: [facility] 07-17-2024 15:26-0400 SaO2% (BldA) [Mass fraction] 97 % Dennis Marcial MD Work Phone: [facility] 07-17-2024 15:26-0400 Systolic blood pressure 110 mm[Hg] Dennis Marcial MD Work Phone: [facility] 06-28-2024 10:14-0500 Body mass index (BMI) [Ratio] 32.12 kg/m2 Ronald Click MACHINIST JOB SETTER.DRY YARD WORKER Work Phone: [facility] 06-28-2024 10:14-0500 Body weight 90.27 kg Ronald Click MACHINIST JOB SETTER.DRY YARD WORKER Work Phone: [facility] 06-28-2024 10:14-0500 Diastolic blood pressure 72 mm[Hg] Ronald Click MACHINIST JOB SETTER.DRY YARD WORKER Work Phone: [facility] 06-28-2024 10:14-0500 Heart rate 68 /min Ronald Click MACHINIST JOB SETTER.DRY YARD WORKER Work Phone: [facility] 06-28-2024 10:14-0500 Respiratory rate 18 /min Ronald Click MACHINIST JOB SETTER.DRY YARD WORKER Work Phone: [facility] 06-28-2024 10:14-0500 SaO2% (BldA) [Mass fraction] 93 % Ronald Click MACHINIST JOB SETTER.DRY YARD WORKER Work Phone: [facility] 06-28-2024 10:14-0500 Systolic blood pressure 106 mm[Hg] Ronald Click MACHINIST JOB SETTER.DRY YARD WORKER Work Phone: [facility] 06-27-2024 09:36-0500 Body mass index (BMI) [Ratio] 32.12 kg/m2 Royer Ford Work Phone: [facility] 06-27-2024 09:36-0500 Body temperature 97.81 [degF] Royer Ford Work Phone: [facility] 06-27-2024 09:36-0500 Body weight 90.27 kg Royer Ford Work Phone: [facility] 06-27-2024 09:36-0500 Diastolic blood pressure 71 mm[Hg] Royer Ford Work Phone: [facility] 06-27-2024 09:36-0500 Heart rate 77 /min Royer Ford Work Phone: [facility] 06-27-2024 09:36-0500 SaO2% (BldA) [Mass fraction] 100 % Royer Ford Work Phone: [facility] 06-27-2024 09:36-0500 Systolic blood pressure 105 mm[Hg] Royer Ford Work Phone: [facility] 06-26-2024 16:03-0500 Body height 167.6 cm Dennsi Marcial MD Work Phone: [facility] 06-26-2024 16:03-0500 Body mass index (BMI) [Ratio] 31.8 kg/m2 Dennis Marcial MD Work Phone: [facility] 06-26-2024 16:03-0500 Body temperature 96.91 [degF] Dennis Marcial MD Work Phone: [facility] 06-26-2024 16:03-0500 Body weight 89.36 kg Dennis Marcial MD Work Phone: [facility] 06-26-2024 16:03-0500 Diastolic blood pressure 82 mm[Hg] Dennis Marcial MD Work Phone: [facility] 06-26-2024 16:03-0500 Heart rate 70 /min Dennis Marcial MD Work Phone: [facility] 06-26-2024 16:03-0500 Respiratory rate 18 /min Dennis Marcial MD Work Phone: [facility] 06-26-2024 16:03-0500 SaO2% (BldA) [Mass fraction] 95 % Dennis Marcial MD Work Phone: [facility] 06-26-2024 16:03-0500 Systolic blood pressure 122 mm[Hg] Dennis Marcial MD Work Phone: [facility] 06-20-2024 11:54-0500 Body mass index (BMI) [Ratio] 31.31 kg/m2 Michael Babin MD Work Phone: [facility] 06-20-2024 11:54-0500 Body temperature 99.9 [degF] Michael Babin MD Work Phone: [facility] 06-20-2024 11:54-0500 Body weight 88 kg Michael Babin MD Work Phone: [facility] 06-20-2024 11:54-0500 Diastolic blood pressure 80 mm[Hg] Michael Babin MD Work Phone: [facility] 06-20-2024 11:54-0500 Heart rate 87 /min Michael Babin MD Work Phone: [facility] 06-20-2024 11:54-0500 Respiratory rate 24 /min Michael Babin MD Work Phone: [facility] 06-20-2024 11:54-0500 SaO2% (BldA) [Mass fraction] 94 % Michael Babin MD Work Phone: [facility] 06-20-2024 11:54-0500 Systolic blood pressure 117 mm[Hg] Michael Babin MD Work Phone: [facility] 06-08-2024 17:42-0500 Body temperature 97.9 [degF] Dr. Dennis Marcial MD Work Phone: [facility] 06-08-2024 17:42-0500 Diastolic blood pressure 74 mm[Hg] Dr. Dennis Marcial MD Work Phone: [facility] 06-08-2024 17:42-0500 Heart rate 71 /min Dr. Dennis Marcial MD Work Phone: [facility] 06-08-2024 17:42-0500 Respiratory rate 16 /min Dr. Dennis Marcial MD Work Phone: [facility] 06-08-2024 17:42-0500 SaO2% (BldA) [Mass fraction] 99 % Dr. Dennis Marcial MD Work Phone: [facility] 06-08-2024 17:42-0500 Systolic blood pressure 110 mm[Hg] Dr. Dennis Marcial MD Work Phone: [facility] 06-08-2024 15:10-0500 Body height 167.[address] Dennis Marcial MD Work Phone: [facility] 06-08-2024 15:10-0500 Body mass index (BMI) [Ratio] 32.1 kg/m2 Dr. Dennis Marcial MD Work Phone: [facility] 06-08-2024 15:10-0500 Body weight 90.[address] Dennis Marcial MD Work Phone: [facility] 05-09-2024 10:41-0500 Body mass index (BMI) [Ratio] 31.42 kg/m2 Tima López APRN.CNP Work Phone: [facility] 05-09-2024 10:41-0500 Body temperature 97.2 [degF] Tima López APRN.DRY YARD WORKER Work Phone: [facility] 05-09-2024 10:41-0500 Body weight 88.3 kg Tima López APRN.DRY YARD WORKER Work Phone: [facility] 05-09-2024 10:41-0500 Diastolic blood pressure 64 mm[Hg] Tima López APRN.DRY YARD WORKER Work Phone: [facility] 05-09-2024 10:41-0500 Heart rate 75 /min Tima López APRN.DRY YARD WORKER Work Phone: [facility] 05-09-2024 10:41-0500 Respiratory rate 22 /min Tima López APRN.DRY YARD WORKER Work Phone: [facility] 05-09-2024 10:41-0500 SaO2% (BldA) [Mass fraction] 96 % Tima López APRN.DRY YARD WORKER Work Phone: [facility] 05-09-2024 10:41-0500 Systolic blood pressure 98 mm[Hg] Tima López APRN.DRY YARD WORKER Work Phone: [facility] 04-17-2024 15:12-0500 Body height 167.6 cm Dennis Marcial MD Work Phone: [facility] 04-17-2024 15:12-0500 Body mass index (BMI) [Ratio] 30.99 kg/m2 Dennis Marcial MD Work Phone: [facility] 04-17-2024 15:12-0500 Body temperature 98.01 [degF] Dennis Marcial MD Work Phone: [facility] 04-17-2024 15:12-0500 Body weight 87.09 kg Dennis Marcial MD Work Phone: [facility] 04-17-2024 15:12-0500 Diastolic blood pressure 78 mm[Hg] Dennis Marcial MD Work Phone: [facility] 04-17-2024 15:12-0500 Heart rate 76 /min Dennis Marcial MD Work Phone: [facility] 04-17-2024 15:12-0500 Respiratory rate 18 /min Dennis Marcial MD Work Phone: [facility] 04-17-2024 15:12-0500 SaO2% (BldA) [Mass fraction] 94 % Dennis Marcial MD Work Phone: [facility] 04-17-2024 15:12-0500 Systolic blood pressure 124 mm[Hg] Dennis Marcial MD Work Phone: [facility] 02-12-2024 11:20-0400 Body height 167.6 cm Dennis Marcial MD Work Phone: [facility] 02-12-2024 11:20-0400 Body mass index (BMI) [Ratio] 31.15 kg/m2 Dennis Marcial MD Work Phone: [facility] 02-12-2024 11:20-0400 Body temperature 97 [degF] Dennis Marcial MD Work Phone: [facility] 02-12-2024 11:20-0400 Body weight 87.54 kg Dennis Marcial MD Work Phone: [facility] 02-12-2024 11:20-0400 Diastolic blood pressure 74 mm[Hg] Dennis Marcial MD Work Phone: [facility] 02-12-2024 11:20-0400 Heart rate 86 /min Dennis Marcial MD Work Phone: [facility] 02-12-2024 11:20-0400 Respiratory rate 18 /min Dennis Marcial MD Work Phone: [facility] 02-12-2024 11:20-0400 SaO2% (BldA) [Mass fraction] 96 % Dennis Marcial MD Work Phone: [facility] 02-12-2024 11:20-0400 Systolic blood pressure 112 mm[Hg] Dennis Marcial MD Work Phone: [facility] 01-20-2024 10:07-0400 Body mass index (BMI) [Ratio] 31.03 kg/m2 Jaspreet Praisler-Wood MACHINIST JOB SETTER.DRY YARD WORKER Work Phone: [facility] 01-20-2024 10:07-0400 Body temperature 96.6 [degF] Jaspreet Praisler-Wood MACHINIST JOB SETTER.DRY YARD WORKER Work Phone: [facility] 01-20-2024 10:07-0400 Body weight 87.2 kg Jaspreet Praisler-Wood MACHINIST JOB SETTER.DRY YARD WORKER Work Phone: [facility] 01-20-2024 10:07-0400 Diastolic blood pressure 64 mm[Hg] Jaspreet Praisler-Wood MACHINIST JOB SETTER.DRY YARD WORKER Work Phone: [facility] 01-20-2024 10:07-0400 Heart rate 78 /min Jaspreet Praisler-Wood MACHINIST JOB SETTER.DRY YARD WORKER Work Phone: [facility] 01-20-2024 10:07-0400 Respiratory rate 16 /min Jaspreet Praisler-Wood MACHINIST JOB SETTER.DRY YARD WORKER Work Phone: [facility] 01-20-2024 10:07-0400 SaO2% (BldA) [Mass fraction] 96 % Jaspreet Praisler-Wood MACHINIST JOB SETTER.DRY YARD WORKER Work Phone: [facility] 01-20-2024 10:07-0400 Systolic blood pressure 112 mm[Hg] Jsapreet Praisler-Wood MACHINIST JOB SETTER.DRY YARD WORKER Work Phone: [facility] 12-26-2023 10:17-0400 Body mass index (BMI) [Ratio] 31.8 kg/m2 Oscar Mireles MD Work Phone: [facility] 12-26-2023 10:17-0400 Body weight 89.36 kg Oscar Mireles MD Work Phone: [facility] 12-26-2023 10:17-0400 Diastolic blood pressure 68 mm[Hg] Oscar Mireles MD Work Phone: [facility] 08-20-2024 10:17-0400 Heart rate 73 /min Oscar Mireles MD Work Phone: [facility] 12-26-2023 10:17-0400 Respiratory rate 16 /min Oscar Mireles MD Work Phone: [facility] 12-26-2023 10:17-0400 SaO2% (BldA) [Mass fraction] 95 % Oscar Mireles MD Work Phone: [facility] 12-26-2023 10:17-0400 Systolic blood pressure 107 mm[Hg] Oscar Mireles MD Work Phone: [facility] 12-26-2023 10:08-0400 Body mass index (BMI) [Ratio] 31.8 kg/m2 Shane Steward MD Work Phone: [facility] 12-26-2023 10:08-0400 Body temperature 97.59 [degF] Shane Steward MD Work Phone: [facility] 12-26-2023 10:08-0400 Body weight 89.36 kg Shane Steward MD Work Phone: [facility] 12-26-2023 10:08-0400 Diastolic blood pressure 68 mm[Hg] Shane Steward MD Work Phone: [facility] 12-26-2023 10:08-0400 Heart rate 73 /min Shane Steward MD Work Phone: [facility] 12-26-2023 10:08-0400 SaO2% (BldA) [Mass fraction] 95 % Shane Steward MD Work Phone: [facility] 12-26-2023 10:08-0400 Systolic blood pressure 107 mm[Hg] Shane Steward MD Work Phone: [facility] 11-25-2023 10:14-0400 Body mass index (BMI) [Ratio] 31.35 kg/m2 Tima López APRN.CNP Work Phone: [facility] 11-25-2023 10:14-0400 Body temperature 97 [degF] Tima López APRN.DRY YARD WORKER Work Phone: [facility] 11-25-2023 10:140400 Body weight 88.1 kg Tima López APRN.DRY YARD WORKER Work Phone: [facility] 11-25-2023 10:14-0400 Diastolic blood pressure 68 mm[Hg] Tima López APRN.DRY YARD WORKER Work Phone: [facility] 11-25-2023 10:14-0400 Heart rate 78 /min Tima López APRN.DRY YARD WORKER Work Phone: [facility] 11-25-2023 10:140400 Respiratory rate 16 /min Tima López APRN.DRY YARD WORKER Work Phone: [facility] 11-25-2023 10:14-0400 SaO2% (BldA) [Mass fraction] 97 % Tima López APRN.DRY YARD WORKER Work Phone: [facility] 11-25-2023 10:14-0400 Systolic blood pressure 124 mm[Hg] Tima López APRN.DRY YARD WORKER Work Phone: [facility] 08-23-2023 11:03-0400 Body height 167.6 cm Dennis Marcial MD Work Phone: [facility] 08-23-2023 11:03-0400 Body temperature 98.01 [degF] Dennis Marcial MD Work Phone: [facility] 08-23-2023 11:03-0400 Body weight 87.45 kg Dennis Marcial MD Work Phone: [facility] 08-23-2023 11:03-0400 Diastolic blood pressure 84 mm[Hg] Dennis Marcial MD Work Phone: [facility] 08-23-2023 11:03-0400 Heart rate 82 /min Dennis Marcial MD Work Phone: [facility] 08-23-2023 11:03-0400 Respiratory rate 18 /min Dennis Marcial MD Work Phone: [facility] 08-23-2023 11:03-0400 SaO2% (BldA) [Mass fraction] 96 % Dennis Marcial MD Work Phone: [facility] 08-23-2023 11:03-0400 Systolic blood pressure 128 mm[Hg] Dennis Marcial MD Work Phone: [facility] 06-21-2023 08:27-0500 Body temperature 97.11 [degF] Shane Steward MD Work Phone: [facility] 06-21-2023 08:27-0500 Body weight 83.69 kg Shane Steward MD Work Phone: [facility] 06-21-2023 08:27-0500 Diastolic blood pressure 67 mm[Hg] Shane Steward MD Work Phone: [facility] 06-21-2023 08:27-0500 Heart rate 77 /min Shane Steward MD Work Phone: [facility] 06-21-2023 08:27-0500 SaO2% (BldA) [Mass fraction] 99 % Shane Steward MD Work Phone: [facility] 06-21-2023 08:27-0500 Systolic blood pressure 107 mm[Hg] Shane Steward MD Work Phone: [facility] 06-19-2023 11:50-0500 Diastolic blood pressure 65 mm[Hg] Hunter Posadas MD Work Phone: [facility] 06-19-2023 11:50-0500 Heart rate 72 /min Hunter Posadas MD Work Phone: [facility] 06-19-2023 11:50-0500 Respiratory rate 18 /min Hunter Posadas MD Work Phone: [facility] 06-19-2023 11:50-0500 SaO2% (BldA) [Mass fraction] 98 % Hunter Posadas MD Work Phone: [facility] 06-19-2023 11:50-0500 Systolic blood pressure 108 mm[Hg] Hunter Posadas MD Work Phone: [facility] 06-19-2023 10:23-0500 Body temperature 98.01 [degF] Hunter Posadas MD Work Phone: [facility] 06-19-2023 08:49-0500 Body height 167.6 cm Hunter Posadas MD Work Phone: [facility] 06-19-2023 08:49-0500 Body weight 83.92 kg Hunter Posadas MD Work Phone: [facility] 05-10-2023 16:26-0500 Body height 162.6 cm Dennis Marcial MD Work Phone: [facility] 05-10-2023 16:26-0500 Body temperature 97.81 [degF] Dennis Marcial MD Work Phone: [facility] 05-10-2023 16:26-0500 Body weight 84.94 kg Dennis Marcial MD Work Phone: [facility] 05-10-2023 16:26-0500 Diastolic blood pressure 74 mm[Hg] Dennis Marcial MD Work Phone: [facility] 05-10-2023 16:26-0500 Heart rate 81 /min Dennis Marcial MD Work Phone: [facility] 05-10-2023 16:26-0500 Respiratory rate 16 /min Dennis Marcial MD Work Phone: [facility] 05-10-2023 16:26-0500 Systolic blood pressure 110 mm[Hg] Dennis Marcial MD Work Phone: [facility] 03-06-2023 08:23-0400 Body height 162.6 cm Jayne Woods PA-C Work Phone: [facility] 03-06-2023 08:23-0400 Body weight 85.32 kg Jayne Woods PA-C Work Phone: [facility] 03-06-2023 08:23-0400 Diastolic blood pressure 70 mm[Hg] Jayne Crawleyon PA-C Work Phone: [facility] 03-06-2023 08:23-0400 Heart rate 71 /min Jayne Crawleyon PA-C Work Phone: [facility] 03-06-2023 08:23-0400 Systolic blood pressure 108 mm[Hg] Jayne Crawleyon PA-C Work Phone: [facility] 02-09-2023 09:14-0400 Body temperature 97.3 [degF] Kael Enrique MACHINIST JOB SETTER.DRY YARD WORKER Work Phone: [facility] 02-09-2023 09:14-0400 Body weight 87.09 kg Kael Nunez MACHINIST JOB SETTER.DRY YARD WORKER Work Phone: [facility] 02-09-2023 09:14-0400 Diastolic blood pressure 67 mm[Hg] Kael Enrique MACHINIST JOB SETTER.DRY YARD WORKER Work Phone: [facility] 02-09-2023 09:14-0400 Heart rate 73 /min Kael Enrique MACHINIST JOB SETTER.DRY YARD WORKER Work Phone: [facility] 02-09-2023 09:14-0400 Respiratory rate 20 /min Kael Enrique MACHINIST JOB SETTER.DRY YARD WORKER Work Phone: [facility] 02-09-2023 09:14-0400 SaO2% (BldA) [Mass fraction] 97 % Kael Nunez MACHINIST JOB SETTER.DRY YARD WORKER Work Phone: [facility] 02-09-2023 09:14-0400 Systolic blood pressure 96 mm[Hg] Kael Nunez MACHINIST JOB SETTER.DRY YARD WORKER Work Phone: [facility] 01-25-2023 11:57-0400 Body temperature 97.9 [degF] Tima López MACHINIST JOB SETTER.DRY YARD WORKER Work Phone: [facility] 01-25-2023 11:57-0400 Body weight 87.54 kg Tima López MACHINIST JOB SETTER.DRY YARD WORKER Work Phone: [facility] 01-25-2023 11:57-0400 Diastolic blood pressure 82 mm[Hg] Tima López MACHINIST JOB SETTER.DRY YARD WORKER Work Phone: [facility] 01-25-2023 11:57-0400 Heart rate 81 /min Tima López MACHINIST JOB SETTER.DRY YARD WORKER Work Phone: [facility] 01-25-2023 11:57-0400 Respiratory rate 22 /min Tima López MACHINIST JOB SETTER.DRY YARD WORKER Work Phone: [facility] 01-25-2023 11:57-0400 SaO2% (BldA) [Mass fraction] 96 % Tima López MACHINIST JOB SETTER.DRY YARD WORKER Work Phone: [facility] 01-25-2023 11:57-0400 Systolic blood pressure 116 mm[Hg] Tima Rene MACHINIST JOB SETTER.DRY YARD WORKER Work Phone: [facility] 01-07-2023 12:03-0400 Body temperature 97.81 [degF] Jaspreet Praisler-Wood MACHINIST JOB SETTER.DRY YARD WORKER Work Phone: [facility] 01-07-2023 12:03-0400 Body weight 88.63 kg Jaspreet Praisler-Wood MACHINIST JOB SETTER.DRY YARD WORKER Work Phone: [facility] 01-07-2023 12:03-0400 Diastolic blood pressure 66 mm[Hg] Jaspreet Praisler-Wood MACHINIST JOB SETTER.DRY YARD WORKER Work Phone: [facility] 01-07-2023 12:03-0400 Heart rate 85 /min Jaspreet Praisler-Wood MACHINIST JOB SETTER.DRY YARD WORKER Work Phone: [facility] 01-07-2023 12:03-0400 Respiratory rate 18 /min Jaspreet Praisler-Wood MACHINIST JOB SETTER.DRY YARD WORKER Work Phone: [facility] 01-07-2023 12:03-0400 SaO2% (BldA) [Mass fraction] 96 % Jaspreet Praisler-Wood MACHINIST JOB SETTER.DRY YARD WORKER Work Phone: [facility] 01-07-2023 12:03-0400 Systolic blood pressure 128 mm[Hg] Jaspreet Praisler-Wood MACHINIST JOB SETTER.DRY YARD WORKER Work Phone: [facility] 01-02-2023 10:45-0400 Body height 162.6 cm Dennis Marcial MD Work Phone: [facility] 01-02-2023 10:45-0400 Body temperature 97 [degF] Dennis Marcial MD Work Phone: [facility] 01-02-2023 10:45-0400 Body weight 86.73 kg Dennis Marcial MD Work Phone: [facility] 01-02-2023 10:45-0400 Diastolic blood pressure 72 mm[Hg] Dennis Marcial MD Work Phone: [facility] 01-02-2023 10:45-0400 Heart rate 74 /min Dennis Marcial MD Work Phone: [facility] 01-02-2023 10:45-0400 Respiratory rate 18 /min Dennis Marcial MD Work Phone: [facility] 01-02-2023 10:45-0400 SaO2% (BldA) [Mass fraction] 97 % Dennis Marcial MD Work Phone: [facility] 01-02-2023 10:45-0400 Systolic blood pressure 138 mm[Hg] Dennis Marcial MD Work Phone: [facility] 12-27-2022 13:33-0400 Body temperature 98.2 [degF] Tima López APRN.DRY YARD WORKER Work Phone: [facility] 12-27-2022 13:33-0400 Body weight 87.09 kg Tima López APRN.DRY YARD WORKER Work Phone: [facility] 12-27-2022 13:33-0400 Diastolic blood pressure 70 mm[Hg] Tima López APRN.DRY YARD WORKER Work Phone: [facility] 12-27-2022 13:33-0400 Heart rate 72 /min Tima López APRN.DRY YARD WORKER Work Phone: [facility] 12-27-2022 13:33-0400 Respiratory rate 20 /min Tima López APRN.DRY YARD WORKER Work Phone: [facility] 12-27-2022 13:33-0400 SaO2% (BldA) [Mass fraction] 99 % Timairon López APRN.DRY YARD WORKER Work Phone: [facility] 12-27-2022 13:33-0400 Systolic blood pressure 110 mm[Hg] Tima López APRN.DRY YARD WORKER Work Phone: [facility] 12-09-2022 14:38-0400 Body weight 88 kg Oscar Mireles MD Work Phone: [facility] 12-07-2022 13:50-0400 Body weight 88 kg Pulomar Wstr Work Phone: [facility] 12-07-2022 12:59-0400 Body height 163 cm Shane Steward MD Work Phone: [facility] 12-07-2022 12:59-0400 Body temperature 98.01 [degF] Shane Steward MD Work Phone: [facility] 12-07-2022 12:59-0400 Body weight 87.77 kg Shane Steward MD Work Phone: [facility] 12-07-2022 12:59-0400 Diastolic blood pressure 80 mm[Hg] Shane Steward MD Work Phone: [facility] 12-07-2022 12:59-0400 Heart rate 77 /min Shane Steward MD Work Phone: [facility] 12-07-2022 12:59-0400 SaO2% (BldA) [Mass fraction] 96 % Shane Steward MD Work Phone: [facility] 12-07-2022 12:59-0400 Systolic blood pressure 119 mm[Hg] Shane Steward MD Work Phone: [facility] 11-11-2022 10:23-0400 Body height 167.[address] Dennis Marcial Work Phone: [facility] 11-11-2022 10:23-0400 Body mass index (BMI) [Ratio] 30.8 kg/m2 Dr. Dennis Marcial Work Phone: [facility] 11-11-2022 10:23-0400 Body weight 86.[address] Dennis Marcial Work Phone: [facility] 11-11-2022 10:23-0400 Diastolic blood pressure 75 mm[Hg] Dr. Dennis Marcial Work Phone: [facility] 11-11-2022 10:23-0400 Heart rate 80 /min Dr. Dennis Marcial Work Phone: [facility] 11-11-2022 10:23-0400 Respiratory rate 16 /min Dr. Dennis Marcial Work Phone: [facility] 11-11-2022 10:23-0400 SaO2% (BldA) [Mass fraction] 94 % Dr. Dennis Marcial Work Phone: [facility] 11-11-2022 10:23-0400 Systolic blood pressure 111 mm[Hg] Dr. Dennis Marcial Work Phone: [facility] 09-12-2022 14:00-0400 Body weight 89.36 kg Oscar Mireles MD Work Phone: [facility] 08-29-2022 08:11-0400 Body height 167.6 cm Dennis Marcial MD Work Phone: [facility] 08-29-2022 08:11-0400 Body temperature 97.7 [degF] Dennis Marcial MD Work Phone: [facility] 08-29-2022 08:11-0400 Body weight 88 kg Dennis Marcial MD Work Phone: [facility] 08-29-2022 08:11-0400 Diastolic blood pressure 78 mm[Hg] Dennis Marcial MD Work Phone: [facility] 04-24-2023 08:11-0400 Heart rate 76 /min Dennis Marcial MD Work Phone: [facility] 08-29-2022 08:11-0400 Respiratory rate 18 /min Dennis Marcial MD Work Phone: [facility] 08-29-2022 08:11-0400 SaO2% (BldA) [Mass fraction] 99 % Dennis Marcial MD Work Phone: [facility] 08-29-2022 08:11-0400 Systolic blood pressure 108 mm[Hg] Dennis Marcial MD Work Phone: [facility] 02-02-2022 09:50-0400 Body height 167.6 cm Dennis Marcial MD Work Phone: [facility] 02-02-2022 09:50-0400 Body temperature 96.8 [degF] Dennis Marcial MD Work Phone: [facility] 02-02-2022 09:50-0400 Body weight 89.81 kg Dennis Marcial MD Work Phone: [facility] 02-02-2022 09:50-0400 Diastolic blood pressure 62 mm[Hg] Dennis Marcial MD Work Phone: [facility] 02-02-2022 09:50-0400 Respiratory rate 16 /min Dennis Marcial MD Work Phone: [facility] 02-02-2022 09:50-0400 SaO2% (BldA) [Mass fraction] 95 % Dennis Marcial MD Work Phone: [facility] 02-02-2022 09:50-0400 Systolic blood pressure 106 mm[Hg] Dennis Marcial MD Work Phone: [facility] 01-04-2022 10:42-0400 Body temperature 97.3 [degF] Carolina Lambert MD Work Phone: [facility] 01-04-2022 10:42-0400 Body weight 89.13 kg Carolina Lambert MD Work Phone: [facility] 01-04-2022 10:42-0400 Diastolic blood pressure 68 mm[Hg] Carolina Lambert MD Work Phone: [facility] 01-04-2022 10:42-0400 Heart rate 80 /min Carolina Lambert MD Work Phone: [facility] 01-04-2022 10:42-0400 SaO2% (BldA) [Mass fraction] 99 % Carolina Lambert MD Work Phone: [facility] 01-04-2022 10:42-0400 Systolic blood pressure 108 mm[Hg] Carolina Lambert MD Work Phone: [facility] 11-26-2021 08:00-0400 Body temperature 98.71 [degF] Johnathan Guillermo MD Work Phone: [facility] 11-26-2021 08:00-0400 Body weight 89.99 kg Johnathan Guillermo MD Work Phone: [facility] 11-26-2021 08:00-0400 Heart rate 89 /min Johnathan Guillermo MD Work Phone: [facility] 11-26-2021 08:00-0400 SaO2% (BldA) [Mass fraction] 98 % Johnathan Guillermo MD Work Phone: [facility] 11-17-2021 11:15-0400 Diastolic blood pressure 56 mm[Hg] Johnathan Guillermo MD Work Phone: [facility] 11-17-2021 11:15-0400 Heart rate 58 /min Johnathan Guillermo MD Work Phone: [facility] 11-17-2021 11:15-0400 Respiratory rate 13 /min Johnathan Guillermo MD Work Phone: [facility] 11-17-2021 11:15-0400 SaO2% (BldA) [Mass fraction] 100 % Johnathan Guillermo MD Work Phone: [facility] 11-17-2021 11:15-0400 Systolic blood pressure 95 mm[Hg] Johnathan Guillermo MD Work Phone: [facility] 11-17-2021 11:05-0400 Body temperature 97 [degF] Johnathan Guillermo MD Work Phone: [facility] 11-17-2021 10:19-0400 Body height 165.1 cm Johnathan Guillermo MD Work Phone: [facility] 11-17-2021 10:19-0400 Body weight 89.81 kg Johnathan Guillermo MD Work Phone: [facility] 11-15-2021 09:59-0400 Body temperature 97.3 [degF] Treatment Wstr Work Phone: [facility] 11-15-2021 09:59-0400 Diastolic blood pressure 77 mm[Hg] Treatment Wstr Work Phone: [facility] 11-15-2021 09:59-0400 Heart rate 60 /min Treatment Wstr Work Phone: [facility] 11-15-2021 09:59-0400 Systolic blood pressure 118 mm[Hg] Treatment Wstr Work Phone: [facility] 11-12-2021 09:18-0400 Body temperature 98.29 [degF] Treatment Wstr Work Phone: [facility] 11-12-2021 09:18-0400 Diastolic blood pressure 73 mm[Hg] Treatment Wstr Work Phone: [facility] 11-12-2021 09:18-0400 Heart rate 74 /min Treatment Wstr Work Phone: [facility] 11-12-2021 09:18-0400 Systolic blood pressure 119 mm[Hg] Treatment Wstr Work Phone: [facility] 11-10-2021 09:25-0400 Body temperature 97.59 [degF] Treatment Wstr Work Phone: [facility] 11-10-2021 09:25-0400 Diastolic blood pressure 70 mm[Hg] Treatment Wstr Work Phone: [facility] 11-10-2021 09:25-0400 Heart rate 85 /min Treatment Wstr Work Phone: [facility] 11-10-2021 09:25-0400 Systolic blood pressure 115 mm[Hg] Treatment Wstr Work Phone: [facility] 11-02-2021 15:35-0400 Body temperature 97.7 [degF] Treatment Wstr Work Phone: [facility] 11-02-2021 15:35-0400 Diastolic blood pressure 49 mm[Hg] Treatment Wstr Work Phone: [facility] 11-02-2021 15:35-0400 Heart rate 79 /min Treatment Wstr Work Phone: [facility] 11-02-2021 15:35-0400 Systolic blood pressure 121 mm[Hg] Treatment Wstr Work Phone: [facility] 11-02-2021 09:07-0400 Body height 165.1 cm Kamilla [facility] PA-C Work Phone: [facility] 11-02-2021 09:07-0400 Body temperature 98.2 [degF] Kamilla Kirk PA-C Work Phone: [facility] 11-02-2021 09:07-0400 Body weight 90.17 kg Kamilla Kirk PA-C Work Phone: [facility] 11-02-2021 09:07-0400 Diastolic blood pressure 72 mm[Hg] Kamilla Kirk PA-C Work Phone: [facility] 11-02-2021 09:07-0400 Heart rate 89 /min [facility] PA-C Work Phone: [facility] 11-02-2021 09:07-0400 SaO2% (BldA) [Mass fraction] 95 % Kamilla Kirk PA-C Work Phone: [facility] 11-02-2021 09:07-0400 Systolic blood pressure 110 mm[Hg] Kamilla Kirk PA-C Work Phone: [facility] 10-14-2021 13:39-0400 Body temperature 97.81 [degF] Treatment Wstr Work Phone: [facility] 10-14-2021 13:39-0400 Body weight 90.72 kg Treatment Wstr Work Phone: [facility] 10-14-2021 13:39-0400 Diastolic blood pressure 79 mm[Hg] Treatment Wstr Work Phone: [facility] 10-14-2021 13:39-0400 Heart rate 55 /min Treatment Wstr Work Phone: [facility] 10-14-2021 13:39-0400 SaO2% (BldA) [Mass fraction] 98 % Treatment Wstr Work Phone: [facility] 10-14-2021 13:39-0400 Systolic blood pressure 100 mm[Hg] Treatment Wstr Work Phone: [facility] 10-12-2021 10:10-0400 Body height 165.1 cm Jhonathan Reyna MD Work Phone: [facility] 10-12-2021 10:10-0400 Body weight 90.72 kg Jhonathan Reyna MD Work Phone: [facility] 10-12-2021 10:10-0400 Diastolic blood pressure 70 mm[Hg] Jhonathan Reyna MD Work Phone: [facility] 10-12-2021 10:10-0400 Heart rate 70 /min Jhonathan Reyna MD Work Phone: [facility] 10-12-2021 10:10-0400 Systolic blood pressure 100 mm[Hg] Jhonathan Reyna MD Work Phone: [facility] 10-11-2021 09:08-0400 Body temperature 97.2 [degF] Carolina Lambert MD Work Phone: [facility] 10-11-2021 09:08-0400 Body weight 90.72 kg Carolina Lambert MD Work Phone: [facility] 10-11-2021 09:08-0400 Diastolic blood pressure 66 mm[Hg] Carolina Lambert MD Work Phone: [facility] 10-11-2021 09:08-0400 Heart rate 77 /min Carolina Lambert MD Work Phone: [facility] 10-11-2021 09:08-0400 SaO2% (BldA) [Mass fraction] 95 % Carolina Lambert MD Work Phone: [facility] 10-11-2021 09:08-0400 Systolic blood pressure 106 mm[Hg] Carolina Lambert MD Work Phone: [facility] 09-10-2021 09:37-0400 Body weight 89.81 kg Oscar Mireles MD Work Phone: [facility] 09-10-2021 09:37-0400 Diastolic blood pressure 78 mm[Hg] Oscar Mireles MD Work Phone: [facility] 09-10-2021 09:37-0400 Heart rate 93 /min Oscar Mireles MD Work Phone: [facility] 09-10-2021 09:37-0400 Respiratory rate 16 /min Oscar Mireles MD Work Phone: [facility] 09-10-2021 09:37-0400 SaO2% (BldA) [Mass fraction] 96 % Oscar Mireles MD Work Phone: [facility] 09-10-2021 09:37-0400 Systolic blood pressure 114 mm[Hg] Oscar Mireles MD Work Phone: [facility] 07-09-2021 11:51-0500 Body height 167.[address] Dennis Marcial Work Phone: [facility] Work Phone: 07-09-2021 11:51-0500 Body weight 91.[address] Dennis Marcial Work Phone: [facility] Work Phone: 07-09-2021 11:51-0500 Diastolic blood pressure 75 mm[Hg] Dr. Dennis Marcial Work Phone: [facility] Work Phone: 07-09-2021 11:51-0500 Heart rate 83 /min Dr. Dennis Marcial Work Phone: [facility] Work Phone: 07-09-2021 11:51-0500 Respiratory rate 20 /min Dr. Dennis Marcial Work Phone: [facility] Work Phone: 07-09-2021 11:51-0500 SaO2% (BldA) [Mass fraction] 96 % Dr. Dennis Marcial Work Phone: [facility] Work Phone: 07-09-2021 11:51-0500 Systolic blood pressure 108 mm[Hg] Dr. Dennis Marcial Work Phone: [facility] Work Phone: 09-25-2020 14:59-0400 Body mass index (BMI) [Ratio] 29.9 kg/m2 Dr. Dennis Marcial Work Phone: [facility] Work Phone: 08-31-2015 16:19-0400 Body height 164.47 cm Lesley Pe[facility]; [facility] Work Phone: 08-31-2015 16:19-0400 Body mass index (BMI) [Ratio] 30.69 kg/m2 Lesley [facility]; [facility] Work Phone: 08-31-2015 16:19-0400 Body surface area Derived from formula 1.9 m2 Lesley [facility]; [facility] Work Phone: 08-31-2015 16:19-0400 Body temperature 97.4 [degF] Lesley Pe[facility]; [facility] Work Phone: Comment on above: Method: Temporal 08-31-2015 16:19-0400 Body weight 83.01 kg Lesley Catrina Pe[facility]; [facility] Work Phone: 08-31-2015 16:19-0400 Diastolic blood pressure 70 mm[Hg] Lesley Friendjo ann [facility]; [facility] Work Phone: Comment on above: Patient Position: Sitting; Cuff Location : Left Arm; Cuff Size: Standard 08-31-2015 16:19-0400 Heart rate 74 /min Lesley Catrina [facility]; [facility] Work Phone: Comment on above: Pattern: Regular 08-31-2015 16:19-0400 Respiratory rate 15 /min Lesley Catrina [facility]; [facility] Work Phone: Comment on above: Pattern: Unlabored 08-31-2015 16:19-0400 Systolic blood pressure 102 mm[Hg] Lesley Friendjo ann [facility]; [facility] Work Phone: Comment on above: Patient Position: Sitting; Cuff Location : Left Arm; Cuff Size: Standard 04-27-2015 17:34-0500 Body height 164.47 cm Lesley Friendjo ann Pe[facility]; [facility] Work Phone: 04-27-2015 17:34-0500 Body mass index (BMI) [Ratio] 32.87 kg/m2 Lesley Catrina [facility]; [facility] Work Phone: 04-27-2015 17:34-0500 Body surface area Derived from formula 1.96 m2 Lesley Fritz [facility]; [facility] Work Phone: 04-27-2015 17:34-0500 Body temperature 98 [degF] Lesley Catrina [facility]; [facility] Work Phone: Comment on above: Method: Temporal 04-27-2015 17:34-0500 Body weight 88.91 kg Lesley Friendjo ann [facility]; [facility] Work Phone: 04-27-2015 17:34-0500 Diastolic blood pressure 70 mm[Hg] Lesley Fritz [facility]; [facility] Work Phone: Comment on above: Patient Position: Sitting; Cuff Location : Left Arm; Cuff Size: Standard 04-27-2015 17:34-0500 Heart rate 72 /min Lesley Peña [facility]; [facility] Work Phone: Comment on above: Pattern: Regular 04-27-2015 17:34-0500 Respiratory rate 17 /min Lesley Pe[facility]; [facility] Work Phone: Comment on above: Pattern: Unlabored 04-27-2015 17:34-0500 SaO2% (BldA) [Mass fraction] 95 % Lesley Peña [facility]; [facility] Work Phone: Comment on above: Room air 04-27-2015 17:34-0500 Systolic blood pressure 92 mm[Hg] Lesley Fritz [facility]; [facility] Work Phone: Comment on above: Patient Position: Sitting; Cuff Location : Left Arm; Cuff Size: Standard 12-15-2014 16:05-0400 Body height 164.47 cm Lesley Peña [facility]; [facility] Work Phone: 12-15-2014 16:05-0400 Body mass index (BMI) [Ratio] 32.2 kg/m2 Lesley Pe[facility]; [facility] Work Phone: 12-15-2014 16:05-0400 Body surface area Derived from formula 1.94 m2 Lesley Peña [facility]; [facility] Work Phone: 12-15-2014 16:05-0400 Body temperature 97.8 [degF] Lesley Fritz [facility]; [facility] Work Phone: Comment on above: Method: Oral 12-15-2014 16:05-0400 Body weight 87.09 kg Lesley Peña [facility]; [facility] Work Phone: 12-15-2014 16:05-0400 Diastolic blood pressure 66 mm[Hg] Lesley Peña [facility]; [facility] Work Phone: Comment on above: Patient Position: Sitting; Cuff Location : Left Arm; Cuff Size: Large 12-15-2014 16:05-0400 Heart rate 74 /min Lesley Catrina [facility]; [facility] Work Phone: Comment on above: Pattern: Regular 12-15-2014 16:05-0400 Respiratory rate 16 /min Lesley Catrina [facility]; [facility] Work Phone: Comment on above: Pattern: Unlabored 12-15-2014 16:05-0400 Systolic blood pressure 94 mm[Hg] Lesley Catrina [facility]; [facility] Work Phone: Comment on above: Patient Position: Sitting; Cuff Location : Left Arm; Cuff Size: Large 10-31-2014 11:01-0400 Body height 164.47 cm Misty Gonzales LPN [facility]; [facility] Work Phone: 10-31-2014 11:01-0400 Body mass index (BMI) [Ratio] 32.07 kg/m2 Misty Slarb SKYE [facility]; [facility] Work Phone: 10-31-2014 11:01-0400 Body surface area Derived from formula 1.94 m2 Misty Slarb SALES RECEPTIONIST [facility]; [facility] Work Phone: 10-31-2014 11:01-0400 Body temperature 97.3 [degF] Misty Slarb SALES RECEPTIONIST [facility]; [facility] Work Phone: 10-31-2014 11:01-0400 Body weight 86.75 kg Misty Slarb SALES RECEPTIONIST [facility]; [facility] Work Phone: 10-31-2014 11:01-0400 Diastolic blood pressure 70 mm[Hg] Misty Slarb SALES RECEPTIONIST [facility]; [facility] Work Phone: Comment on above: Patient Position: Sitting; Cuff Location : Left Arm; Cuff Size: Standard 10-31-2014 11:01-0400 Heart rate 74 /min Misty Slarb SALES RECEPTIONIST [facility]; [facility] Work Phone: Comment on above: Pattern: Regular 10-31-2014 11:01-0400 Respiratory rate 18 /min Mistyamara Gonzales SKYE [facility]; [facility] Work Phone: Comment on above: Pattern: Unlabored 10-31-2014 11:01-0400 SaO2% (BldA) [Mass fraction] 97 % Misty Gonzales SALES RECEPTIONIST [facility]; [facility] Work Phone: Comment on above: Room air 10-31-2014 11:01-0400 Systolic blood pressure 116 mm[Hg] Misty Gonzales SALES RECEPTIONIST [facility]; [facility] Work Phone: Comment on above: Patient Position: Sitting; Cuff Location : Left Arm; Cuff Size: Standard 08-11-2014 15:44-0400 Body height 164.47 cm Lesley Fritz [facility]; [facility] Work Phone: 08-11-2014 15:44-0400 Body mass index (BMI) [Ratio] 30.69 kg/m2 Lesley Fritz [facility]; [facility] Work Phone: 08-11-2014 15:44-0400 Body surface area Derived from formula 1.9 m2 Lesley Fritz [facility]; [facility] Work Phone: 08-11-2014 15:44-0400 Body temperature 97.2 [degF] Lesley Fritz [facility]; [facility] Work Phone: 08-11-2014 15:44-0400 Body weight 83.01 kg Lesley Fritz [facility]; [facility] Work Phone: 08-11-2014 15:44-0400 Diastolic blood pressure 72 mm[Hg] Lesley Fritz [facility]; [facility] Work Phone: Comment on above: Patient Position: Sitting; Cuff Location : Left Arm; Cuff Size: Large 08-11-2014 15:44-0400 Heart rate 76 /min Lesley Fritz [facility]; [facility] Work Phone: Comment on above: Pattern: Regular 08-11-2014 15:44-0400 Respiratory rate 16 /min Lesley Friendjo ann [facility]; [facility] Work Phone: Comment on above: Pattern: Unlabored 08-11-2014 15:44-0400 Systolic blood pressure 102 mm[Hg] Lesley Friendjo ann [facility]; [facility] Work Phone: Comment on above: Patient Position: Sitting; Cuff Location : Left Arm; Cuff Size: Large 06-16-2014 16:05-0500 Body height 164.47 cm Dee Dee [employer] [facility] Work Phone: 06-16-2014 16:05-0500 Body mass index (BMI) [Ratio] 29.51 kg/m2 Dee Dee [employer] [facility] Work Phone: 06-16-2014 16:05-0500 Body surface area Derived from formula 1.87 m2 Dee Dee [employer] [facility] Work Phone: 06-16-2014 16:05-0500 Body temperature 99.1 [degF] Dee Dee [employer] [facility] Work Phone: Comment on above: Method: Oral 06-16-2014 16:05-0500 Body weight 79.83 kg Dee Dee [employer] [facility] Work Phone: 06-16-2014 16:05-0500 Diastolic blood pressure 68 mm[Hg] Dee Dee [employer] [facility] Work Phone: Comment on above: Patient Position: Sitting; Cuff Location : Left Arm; Cuff Size: Standard 06-16-2014 16:05-0500 Heart rate 85 /min Dee Dee [employer] [facility] Work Phone: Comment on above: Pattern: Regular 06-16-2014 16:05-0500 Respiratory rate 16 /min Dee Dee [employer] [facility] Work Phone: Comment on above: Pattern: Unlabored 06-16-2014 16:05-0500 Systolic blood pressure 102 mm[Hg] Dee Dee Jimenez MARYCRUZ [facility]; [facility] Work Phone: Comment on above: Patient Position: Sitting; Cuff Location : Left Arm; Cuff Size: Standard 05-23-2014 09:31-0500 Body height 164.47 cm Lesley Fritz [facility]; [facility] Work Phone: 05-23-2014 09:31-0500 Body mass index (BMI) [Ratio] 29.85 kg/m2 Lesley Fritz [facility]; [facility] Work Phone: 05-23-2014 09:31-0500 Body surface area Derived from formula 1.88 m2 Lesley Fritz [facility]; [facility] Work Phone: 05-23-2014 09:31-0500 Body temperature 97.6 [degF] Lesley Fritz [facility]; [facility] Work Phone: 05-23-2014 09:31-0500 Body weight 80.74 kg Lesley Fritz [facility]; [facility] Work Phone: 05-23-2014 09:31-0500 Diastolic blood pressure 70 mm[Hg] Lesley Fritz [facility]; [facility] Work Phone: Comment on above: Patient Position: Sitting; Cuff Location : Left Arm; Cuff Size: Large 05-23-2014 09:31-0500 Heart rate 125 /min Lesley Fritz [facility]; [facility] Work Phone: Comment on above: Pattern: Regular 05-23-2014 09:31-0500 Respiratory rate 18 /min Lesley Fritz [facility]; [facility] Work Phone: Comment on above: Pattern: Unlabored 05-23-2014 09:31-0500 Systolic blood pressure 108 mm[Hg] Lesley Fritz [facility]; [facility] Work Phone: Comment on above: Patient Position: Sitting; Cuff Location : Left Arm; Cuff Size: Large 02-03-2014 08:58-0400 Body height 164.47 cm Lesley Fritz [facility]; [facility] Work Phone: 02-03-2014 08:58-0400 Body mass index (BMI) [Ratio] 29.85 kg/m2 Lesley Fritz [facility]; [facility] Work Phone: 02-03-2014 08:58-0400 Body surface area Derived from formula 1.88 m2 Lesley Fritz [facility]; [facility] Work Phone: 02-03-2014 08:58-0400 Body temperature 98.1 [degF] Lesley Fritz [facility]; [facility] Work Phone: 02-03-2014 08:58-0400 Body weight 80.74 kg Lesley Fritz [facility]; [facility] Work Phone: 02-03-2014 08:58-0400 Diastolic blood pressure 70 mm[Hg] Lesley Fritz [facility]; [facility] Work Phone: Comment on above: Patient Position: Sitting; Cuff Location : Right Arm; Cuff Size: Large 02-03-2014 08:58-0400 Heart rate 78 /min Lesley Fritz [facility]; [facility] Work Phone: Comment on above: Pattern: Regular 02-03-2014 08:58-0400 Respiratory rate 16 /min Lesley Fritz [facility]; [facility] Work Phone: Comment on above: Pattern: Unlabored 02-03-2014 08:58-0400 Systolic blood pressure 92 mm[Hg] Lesley Fritz [facility]; [facility] Work Phone: Comment on above: Patient Position: Sitting; Cuff Location : Right Arm; Cuff Size: Large 12-31-2013 11:58-0400 Body height 164.47 cm Karen Grimm LPN [facility]; [facility] Work Phone: 12-31-2013 11:58-0400 Body mass index (BMI) [Ratio] 31.86 kg/m2 Karen Grimm LPN [facility]; [facility] Work Phone: 12-31-2013 11:58-0400 Body surface area Derived from formula 1.93 m2 Karen Grimm LPN [facility]; [facility] Work Phone: 12-31-2013 11:58-0400 Body temperature 97.9 [degF] Karen Grimm LPN [facility]; [facility] Work Phone: Comment on above: Method: Oral 12-31-2013 11:58-0400 Body weight 86.18 kg Karen Grimm LPN [facility]; [facility] Work Phone: 12-31-2013 11:58-0400 Diastolic blood pressure 68 mm[Hg] Karen Grimm SKYE [facility]; [facility] Work Phone: Comment on above: Patient Position: Sitting; Cuff Location : Left Arm; Cuff Size: Standard 12-31-2013 11:58-0400 Heart rate 94 /min Karen Grimm SKYE [facility]; [facility] Work Phone: Comment on above: Pattern: Regular 12-31-2013 11:58-0400 Respiratory rate 16 /min Karen Grimm LPN [facility]; [facility] Work Phone: 12-31-2013 11:58-0400 SaO2% (BldA) [Mass fraction] 98 % Karen Grimm LPN [facility]; [facility] Work Phone: Comment on above: Room air 12-31-2013 11:58-0400 Systolic blood pressure 102 mm[Hg] Karen Grimm LPN [facility]; [facility] Work Phone: Comment on above: Patient Position: Sitting; Cuff Location : Left Arm; Cuff Size: Standard 12-04-2013 15:16-0400 Body height 164.47 cm Lesley Fritz [facility]; [facility] Work Phone: 12-04-2013 15:16-0400 Body mass index (BMI) [Ratio] 31.86 kg/m2 Lesley Friendjo ann [facility]; [facility] Work Phone: 12-04-2013 15:16-0400 Body surface area Derived from formula 1.93 m2 Lesley Friendjo ann [facility]; [facility] Work Phone: 12-04-2013 15:16-0400 Body temperature 97.5 [degF] Lesley Friendjo ann [facility]; [facility] Work Phone: 12-04-2013 15:16-0400 Body weight 86.18 kg Lesley Friendjo ann [facility]; [facility] Work Phone: 12-04-2013 15:16-0400 Diastolic blood pressure 72 mm[Hg] Lesley Friendjo ann [facility]; [facility] Work Phone: Comment on above: Patient Position: Sitting; Cuff Location : Left Arm; Cuff Size: Large 12-04-2013 15:16-0400 Heart rate 68 /min Lesley Friendjo ann [facility]; [facility] Work Phone: Comment on above: Pattern: Regular 12-04-2013 15:16-0400 Respiratory rate 16 /min Lesley Friendjo ann [facility]; [facility] Work Phone: Comment on above: Pattern: Unlabored 12-04-2013 15:16-0400 Systolic blood pressure 106 mm[Hg] Lesley Friendjo ann [facility]; [facility] Work Phone: Comment on above: Patient Position: Sitting; Cuff Location : Left Arm; Cuff Size: Large 07-17-2013 15:44-0400 Body height 164.47 cm Lesley Friendjo ann [facility]; [facility] Work Phone: 07-17-2013 15:44-0400 Body mass index (BMI) [Ratio] 32.37 kg/m2 Lesley Catrina [facility]; [facility] Work Phone: 07-17-2013 15:44-0400 Body surface area Derived from formula 1.94 m2 Lesley Catrina [facility]; [facility] Work Phone: 07-17-2013 15:44-0400 Body temperature 98.2 [degF] Lesely Catrina [facility]; [facility] Work Phone: 07-17-2013 15:44-0400 Body weight 87.54 kg Lesley Catrina [facility]; [facility] Work Phone: 07-17-2013 15:44-0400 Diastolic blood pressure 70 mm[Hg] Lesley Catrina [facility]; [facility] Work Phone: Comment on above: Patient Position: Sitting; Cuff Location : Left Arm; Cuff Size: Large 07-17-2013 15:44-0400 Heart rate 68 /min Lesley Catrina [facility]; [facility] Work Phone: Comment on above: Pattern: Regular 07-17-2013 15:44-0400 Respiratory rate 16 /min Lesley Catrina [facility]; [facility] Work Phone: Comment on above: Pattern: Unlabored 07-17-2013 15:44-0400 Systolic blood pressure 106 mm[Hg] Lesley Catrina [facility]; [facility] Work Phone: Comment on above: Patient Position: Sitting; Cuff Location : Left Arm; Cuff Size: Large 03-20-2013 15:29-0500 Body height 164.47 cm Lesley Fritz [facility]; [facility] Work Phone: 03-20-2013 15:29-0500 Body mass index (BMI) [Ratio] 31.86 kg/m2 Lesley Fritz [facility]; [facility] Work Phone: 03-20-2013 15:29-0500 Body surface area Derived from formula 1.93 m2 Lesley Fritz [facility]; [facility] Work Phone: 03-20-2013 15:29-0500 Body temperature 98.4 [degF] Lesley Fritz [facility]; [facility] Work Phone: 03-20-2013 15:29-0500 Body weight 86.18 kg Lesley Fritz [facility]; [facility] Work Phone: 03-20-2013 15:29-0500 Diastolic blood pressure 70 mm[Hg] Lesley Fritz [facility]; [facility] Work Phone: Comment on above: Patient Position: Sitting; Cuff Location : Left Arm; Cuff Size: Large 03-20-2013 15:29-0500 Heart rate 96 /min Lesley Friendjo ann [facility]; [facility] Work Phone: Comment on above: Pattern: Regular 03-20-2013 15:29-0500 Respiratory rate 18 /min Lesley Friendjo ann [facility]; [facility] Work Phone: Comment on above: Pattern: Unlabored 03-20-2013 15:29-0500 Systolic blood pressure 100 mm[Hg] Lesley Freedamado [facility]; [facility] Work Phone: Comment on above: Patient Position: Sitting; Cuff Location : Left Arm; Cuff Size: Large 02-27-2013 14:49-0400 Body height 164.47 cm Karen Grimm LPN [facility]; [facility] Work Phone: 02-27-2013 14:49-0400 Body mass index (BMI) [Ratio] 30.69 kg/m2 Karen Grimm LPN [facility]; [facility] Work Phone: 02-27-2013 14:49-0400 Body surface area Derived from formula 1.9 m2 Karen Grimm LPN [facility]; [facility] Work Phone: 02-27-2013 14:49-0400 Body temperature 98.7 [degF] Karen Grimm LPN [facility]; [facility] Work Phone: Comment on above: Method: Oral 02-27-2013 14:49-0400 Body weight 83.01 kg Karen Grimm LPN [facility]; [facility] Work Phone: 02-27-2013 14:49-0400 Diastolic blood pressure 74 mm[Hg] Karen Grimm LPN [facility]; [facility] Work Phone: Comment on above: Patient Position: Sitting; Cuff Location : Left Arm; Cuff Size: Standard 02-27-2013 14:49-0400 Heart rate 76 /min Karen Grimm LPN [facility]; [facility] Work Phone: Comment on above: Pattern: Regular 02-27-2013 14:49-0400 Respiratory rate 16 /min Karen Grimm LPN [facility]; [facility] Work Phone: 02-27-2013 14:49-0400 SaO2% (BldA) [Mass fraction] 98 % Karen Grimm LPN [facility]; [facility] Work Phone: Comment on above: Room air 02-27-2013 14:49-0400 Systolic blood pressure 112 mm[Hg] Karen Grimm LPN [facility]; [facility] Work Phone: Comment on above: Patient Position: Sitting; Cuff Location : Left Arm; Cuff Size: Standard 09-04-2012 15:44-0400 Body height 164.47 cm Lesley Fritz [facility]; [facility] Work Phone: 09-04-2012 15:44-0400 Body mass index (BMI) [Ratio] 30.69 kg/m2 Lesley Fritz [facility]; [facility] Work Phone: 09-04-2012 15:44-0400 Body surface area Derived from formula 1.9 m2 Lesley Fritz [facility]; [facility] Work Phone: 09-04-2012 15:44-0400 Body temperature 98.5 [degF] Lesley Fritz [facility]; [facility] Work Phone: 09-04-2012 15:44-0400 Body weight 83.01 kg Lesley Peña [facility]; [facility] Work Phone: 09-04-2012 15:44-0400 Diastolic blood pressure 70 mm[Hg] Lesley Friendjo ann [facility]; [facility] Work Phone: Comment on above: Patient Position: Sitting; Cuff Location : Left Arm; Cuff Size: Standard 09-04-2012 15:44-0400 Heart rate 64 /min Lesley Catrina [facility]; [facility] Work Phone: Comment on above: Pattern: Regular 09-04-2012 15:44-0400 Respiratory rate 16 /min Lesley Friendjo ann [facility]; [facility] Work Phone: Comment on above: Pattern: Unlabored 09-04-2012 15:44-0400 Systolic blood pressure 104 mm[Hg] Lesley Friendjo ann [facility]; [facility] Work Phone: Comment on above: Patient Position: Sitting; Cuff Location : Left Arm; Cuff Size: Standard 08-02-2011 16:01-0400 Body height 164.47 cm Lesley Catrina [facility]; [facility] Work Phone: 08-02-2011 16:01-0400 Body mass index (BMI) [Ratio] 30.18 kg/m2 Lesley Catrina [facility]; [facility] Work Phone: 08-02-2011 16:01-0400 Body surface area Derived from formula 1.89 m2 Lesley Fritz [facility]; [facility] Work Phone: 08-02-2011 16:01-0400 Body temperature 97.7 [degF] Lesley Catrina [facility]; [facility] Work Phone: 08-02-2011 16:01-0400 Body weight 81.65 kg Lesley Catrina [facility]; [facility] Work Phone: 08-02-2011 16:01-0400 Diastolic blood pressure 70 mm[Hg] Lesley Fritz [facility]; [facility] Work Phone: Comment on above: Patient Position: Sitting; Cuff Location : Left Arm; Cuff Size: Large 08-02-2011 16:01-0400 Heart rate 76 /min Lesley Catrina [facility]; [facility] Work Phone: Comment on above: Pattern: Regular 08-02-2011 16:01-0400 Respiratory rate 16 /min Lesley Friendjo ann [facility]; [facility] Work Phone: Comment on above: Pattern: Unlabored 08-02-2011 16:01-0400 Systolic blood pressure 110 mm[Hg] Lesley Catrina [facility]; [facility] Work Phone: Comment on above: Patient Position: Sitting; Cuff Location : Left Arm; Cuff Size: Large 01-31-2011 15:24-0400 Body height 164.47 cm Lesley Catrina [facility]; [facility] Work Phone: 01-31-2011 15:24-0400 Body mass index (BMI) [Ratio] 30.18 kg/m2 Lesley Catrina [facility]; [facility] Work Phone: 01-31-2011 15:24-0400 Body surface area Derived from formula 1.89 m2 Lesley Catrina [facility]; [facility] Work Phone: 01-31-2011 15:24-0400 Body temperature 98.1 [degF] Lesley Catrina [facility]; [facility] Work Phone: 01-31-2011 15:24-0400 Body weight 81.65 kg Lesley Catrina [facility]; [facility] Work Phone: 01-31-2011 15:24-0400 Diastolic blood pressure 82 mm[Hg] Lesley Catrina [facility]; [facility] Work Phone: Comment on above: Patient Position: Sitting; Cuff Location : Left Arm; Cuff Size: Large 01-31-2011 15:24-0400 Heart rate 68 /min Lesley Catrina [facility]; [facility] Work Phone: Comment on above: Pattern: Regular 01-31-2011 15:24-0400 Respiratory rate 16 /min Lesley Fritz [facility]; [facility] Work Phone: Comment on above: Pattern: Unlabored 01-31-2011 15:24-0400 Systolic blood pressure 114 mm[Hg] Lesley Catrina [facility]; [facility] Work Phone: Comment on above: Patient Position: Sitting; Cuff Location : Left Arm; Cuff Size: Large 11-19-2010 07:43-0400 Diastolic blood pressure 60 mm[Hg] Maranda Roberts RN [facility]; [facility] Work Phone: Comment on above: Patient Position: Standing; Cuff Locatio n: Left Arm; Cuff Size: Large 11-19-2010 07:43-0400 Heart rate 74 /min Maranda Roberts RN [facility]; [facility] Work Phone: Comment on above: Pattern: Regular 11-19-2010 07:43-0400 Systolic blood pressure 110 mm[Hg] Maranda Roberts RN [facility]; [facility] Work Phone: Comment on above: Patient Position: Standing; Cuff Locatio n: Left Arm; Cuff Size: Large 11-19-2010 07:40-0400 Diastolic blood pressure 62 mm[Hg] Maranda Mast RN [facility]; [facility] Work Phone: Comment on above: Patient Position: Sitting; Cuff Location : Left Arm; Cuff Size: Large 11-19-2010 07:40-0400 Heart rate 72 /min Maranda Roberts RN [facility]; [facility] Work Phone: Comment on above: Pattern: Regular 11-19-2010 07:40-0400 Systolic blood pressure 112 mm[Hg] Maranda Mast RN [facility]; [facility] Work Phone: Comment on above: Patient Position: Sitting; Cuff Location : Left Arm; Cuff Size: Large 11-19-2010 07:34-0400 Diastolic blood pressure 60 mm[Hg] Maranda Mast RN [facility]; [facility] Work Phone: Comment on above: Patient Position: Supine; Cuff Location: Left Arm; Cuff Size: Large 11-19-2010 07:34-0400 Heart rate 60 /min Maranda Roberts RN [facility]; [facility] Work Phone: Comment on above: Pattern: Regular 11-19-2010 07:34-0400 Systolic blood pressure 120 mm[Hg] Maranda Roberts RN [facility]; [facility] Work Phone: Comment on above: Patient Position: Supine; Cuff Location: Left Arm; Cuff Size: Large 11-19-2010 07:10-0400 Body height 165.1 cm Maranda Roberts RN [facility]; [facility] Work Phone: 11-19-2010 07:10-0400 Body mass index (BMI) [Ratio] 29.12 kg/m2 Maranda Roberts RN [facility]; [facility] Work Phone: 11-19-2010 07:10-0400 Body surface area Derived from formula 1.87 m2 Maranda Roberts RN [facility]; [facility] Work Phone: 11-19-2010 07:10-0400 Body temperature 98 [degF] Maranda Roberts RN [facility]; [facility] Work Phone: Comment on above: Method: Oral 11-19-2010 07:10-0400 Body weight 79.38 kg Maranda Roberts RN [facility]; [facility] Work Phone: 11-19-2010 07:10-0400 Diastolic blood pressure 60 mm[Hg] Maranda Roberts RN [facility]; [facility] Work Phone: Comment on above: Patient Position: Sitting; Cuff Location : Left Arm; Cuff Size: Large 11-19-2010 07:10-0400 Heart rate 68 /min Maranda Roberts RN [facility]; [facility] Work Phone: Comment on above: Pattern: Regular 11-19-2010 07:10-0400 Respiratory rate 16 /min Maranda Roberts RN [facility]; [facility] Work Phone: Comment on above: Pattern: Unlabored 11-19-2010 07:10-0400 Systolic blood pressure 120 mm[Hg] Maranda Roberts RN [facility]; [facility] Work Phone: Comment on above: Patient Position: Sitting; Cuff Location : Left Arm; Cuff Size: Large 08-10-2010 15:50-0400 Body height 165.1 cm Lesley Catrina [facility]; [facility] Work Phone: 08-10-2010 15:50-0400 Body mass index (BMI) [Ratio] 30.29 kg/m2 Lesley Fritz [facility]; [facility] Work Phone: 08-10-2010 15:50-0400 Body surface area Derived from formula 1.9 m2 Lesley Fritz [facility]; [facility] Work Phone: 08-10-2010 15:50-0400 Body temperature 97.7 [degF] Lesley Fritz [facility]; [facility] Work Phone: 08-10-2010 15:50-0400 Body weight 82.56 kg Lesley Fritz [facility]; [facility] Work Phone: 08-10-2010 15:50-0400 Diastolic blood pressure 70 mm[Hg] Lesley Fritz [facility]; [facility] Work Phone: Comment on above: Patient Position: Sitting; Cuff Location : Left Arm; Cuff Size: Standard 08-10-2010 15:50-0400 Heart rate 76 /min Lesley Fritz [facility]; [facility] Work Phone: Comment on above: Pattern: Regular 08-10-2010 15:50-0400 Respiratory rate 16 /min Lesley Fritz [facility]; [facility] Work Phone: Comment on above: Pattern: Unlabored 08-10-2010 15:50-0400 Systolic blood pressure 94 mm[Hg] Lesley Fritz [facility]; [facility] Work Phone: Comment on above: Patient Position: Sitting; Cuff Location : Left Arm; Cuff Size: Standard 06-07-2010 15:31-0500 Body temperature 98.2 [degF] Lesley Fritz [facility]; [facility] Work Phone: 06-07-2010 15:31-0500 Body weight 86.18 kg Lesley Catrina [facility]; [facility] Work Phone: 06-07-2010 15:31-0500 Diastolic blood pressure 72 mm[Hg] Lesley Catrina [facility]; [facility] Work Phone: Comment on above: Patient Position: Sitting; Cuff Location : Left Arm; Cuff Size: Large 06-07-2010 15:31-0500 Heart rate 76 /min Lesley Catrina [facility]; [facility] Work Phone: Comment on above: Pattern: Regular 06-07-2010 15:31-0500 Respiratory rate 16 /min Lesley Catrina [facility]; [facility] Work Phone: Comment on above: Pattern: Unlabored 06-07-2010 15:31-0500 Systolic blood pressure 110 mm[Hg] Lesley Catrina [facility]; [facility] Work Phone: Comment on above: Patient Position: Sitting; Cuff Location : Left Arm; Cuff Size: Large 03-17-2010 16:02-0500 Body height 164.47 cm Lesley Catrina [facility]; [facility] Work Phone: 03-17-2010 16:02-0500 Body mass index (BMI) [Ratio] 31.19 kg/m2 Lesley Fritz [facility]; [facility] Work Phone: 03-17-2010 16:02-0500 Body surface area Derived from formula 1.91 m2 Lesley Fritz [facility]; [facility] Work Phone: 03-17-2010 16:02-0500 Body temperature 98.2 [degF] Lesley Fritz [facility]; [facility] Work Phone: 03-17-2010 16:02-0500 Body weight 84.37 kg Lesley Fritz [facility]; [facility] Work Phone: 03-17-2010 16:02-0500 Diastolic blood pressure 62 mm[Hg] Lesley Catrina [facility]; [facility] Work Phone: Comment on above: Patient Position: Sitting; Cuff Location : Left Arm; Cuff Size: Standard 03-17-2010 16:02-0500 Heart rate 72 /min Lesley Friendjo ann [facility]; [facility] Work Phone: Comment on above: Pattern: Regular 03-17-2010 16:02-0500 Respiratory rate 18 /min Lesley Catrina [facility]; [facility] Work Phone: Comment on above: Pattern: Unlabored 03-17-2010 16:02-0500 Systolic blood pressure 96 mm[Hg] Lesley Catrina [facility]; [facility] Work Phone: Comment on above: Patient Position: Sitting; Cuff Location : Left Arm; Cuff Size: Standard 03-17-2009 14:50-0500 Body height 0 cm Lesley Fritz [facility]; [facility] Work Phone: 03-17-2009 14:50-0500 Body temperature 98.6 [degF] Lesley Catrina [facility]; [facility] Work Phone: Comment on above: Method: Undefined 03-17-2009 14:50-0500 Body weight 0 kg Lesley Catrina [facility]; [facility] Work Phone: 03-17-2009 14:50-0500 Diastolic blood pressure 66 mm[Hg] Lesley Catrina [facility]; [facility] Work Phone: Comment on above: Patient Position: Sitting; Cuff Location : Left Arm; Cuff Size: Large 03-17-2009 14:50-0500 Head Occipital-frontal circumference 0 cm Lesley Fritz [facility]; [facility] Work Phone: 03-17-2009 14:50-0500 Heart rate 76 /min Lesley Fritz [facility]; [facility] Work Phone: Comment on above: Pattern: Regular 03-17-2009 14:50-0500 Respiratory rate 16 /min Lesley Fritz [facility]; [facility] Work Phone: Comment on above: Pattern: Undefined 03-17-2009 14:50-0500 Systolic blood pressure 100 mm[Hg] Lesley Fritz [facility]; [facility] Work Phone: Comment on above: Patient Position: Sitting; Cuff Location : Left Arm; Cuff Size: Large 02-16-2009 13:54-0400 Body height 0 cm Lesley Fritz [facility]; [facility] Work Phone: 02-16-2009 13:54-0400 Body temperature 98.1 [degF] Lesley Fritz [facility]; [facility] Work Phone: Comment on above: Method: Undefined 02-16-2009 13:54-0400 Body weight 0 kg Lesley Fritz [facility]; [facility] Work Phone: 02-16-2009 13:54-0400 Diastolic blood pressure 72 mm[Hg] Lesley Fritz [facility]; [facility] Work Phone: Comment on above: Patient Position: Sitting; Cuff Location : Left Arm; Cuff Size: Standard 02-16-2009 13:54-0400 Head Occipital-frontal circumference 0 cm Lesley Fritz [facility]; [facility] Work Phone: 02-16-2009 13:54-0400 Heart rate 76 /min Lesley Fritz [facility]; [facility] Work Phone: Comment on above: Pattern: Regular 02-16-2009 13:54-0400 Respiratory rate 18 /min Lesley Fritz [facility]; [facility] Work Phone: Comment on above: Pattern: Undefined 02-16-2009 13:54-0400 Systolic blood pressure 104 mm[Hg] Lesley Fritz [facility]; [facility] Work Phone: Comment on above: Patient Position: Sitting; Cuff Location : Left Arm; Cuff Size: Standard 01-19-2009 15:48-0400 Body height 165.1 cm Radhika Dooley [facility]; [facility] Work Phone: 01-19-2009 15:48-0400 Body mass index (BMI) [Ratio] 31.62 kg/m2 Radhika Dooley [facility]; [facility] Work Phone: 01-19-2009 15:48-0400 Body surface area Derived from formula 1.94 m2 Radhika Dooley [facility]; [facility] Work Phone: 01-19-2009 15:48-0400 Body temperature 98 [degF] Radhika Dooley [facility]; [facility] Work Phone: Comment on above: Method: Oral 01-19-2009 15:48-0400 Body weight 86.18 kg Radhika Dooley [facility]; [facility] Work Phone: 01-19-2009 15:48-0400 Diastolic blood pressure 70 mm[Hg] Radhika Dooley [facility]; [facility] Work Phone: Comment on above: Patient Position: Supine; Cuff Location: Left Arm; Cuff Size: Large 01-19-2009 15:48-0400 Head Occipital-frontal circumference 0 cm Radhika Dooley [facility]; [facility] Work Phone: 01-19-2009 15:48-0400 Heart rate 71 /min Radhika Dooley [facility]; [facility] Work Phone: Comment on above: Pattern: Regular 01-19-2009 15:48-0400 Respiratory rate 16 /min Radhika Dooley [facility]; [facility] Work Phone: Comment on above: Pattern: Unlabored 01-19-2009 15:48-0400 SaO2% (BldA) [Mass fraction] 96 % Radhika Dooley [facility]; [facility] Work Phone: Comment on above: Room air 01-19-2009 15:48-0400 Systolic blood pressure 100 mm[Hg] Radhika Dooley [facility]; [facility] Work Phone: Comment on above: Patient Position: Supine; Cuff Location: Left Arm; Cuff Size: Large 11-19-2008 15:57-0400 Body height 165.1 cm Radhika Dooley [facility]; [facility] Work Phone: 11-19-2008 15:57-0400 Body mass index (BMI) [Ratio] 31.78 kg/m2 Radhika Dooley [facility]; [facility] Work Phone: 11-19-2008 15:57-0400 Body surface area Derived from formula 1.94 m2 Radhika Dooley [facility]; [facility] Work Phone: 11-19-2008 15:57-0400 Body weight 86.64 kg Radhika Dooley [facility]; [facility] Work Phone: 11-19-2008 15:57-0400 Diastolic blood pressure 70 mm[Hg] Radhika Dooley [facility]; [facility] Work Phone: Comment on above: Patient Position: Supine; Cuff Location: Left Arm; Cuff Size: Standard 11-19-2008 15:57-0400 Head Occipital-frontal circumference 0 cm Radhika Dooley [facility]; [facility] Work Phone: 11-19-2008 15:57-0400 Heart rate 72 /min Radhika Dooley [facility]; [facility] Work Phone: Comment on above: Pattern: Regular 11-19-2008 15:57-0400 Respiratory rate 16 /min Radhika Dooley [facility]; [facility] Work Phone: Comment on above: Pattern: Unlabored 11-19-2008 15:57-0400 Systolic blood pressure 108 mm[Hg] Radhika Dooley [facility]; [facility] Work Phone: Comment on above: Patient Position: Supine; Cuff Location: Left Arm; Cuff Size: Standard 10-14-2008 15:37-0400 Body height 165.1 cm Lesley Fritz [facility]; [facility] Work Phone: 10-14-2008 15:37-0400 Body mass index (BMI) [Ratio] 31.78 kg/m2 Lesley Fritz [facility]; [facility] Work Phone: 10-14-2008 15:37-0400 Body surface area Derived from formula 1.94 m2 Lesley Fritz [facility]; [facility] Work Phone: 10-14-2008 15:37-0400 Body temperature 98.2 [degF] Lesley Fritz [facility]; [facility] Work Phone: Comment on above: Method: Undefined 10-14-2008 15:37-0400 Body weight 86.64 kg Lesley Fritz [facility]; [facility] Work Phone: 10-14-2008 15:37-0400 Diastolic blood pressure 68 mm[Hg] Lesley Fritz [facility]; [facility] Work Phone: Comment on above: Patient Position: Sitting; Cuff Location : Right Arm; Cuff Size: Standard 10-14-2008 15:37-0400 Head Occipital-frontal circumference 0 cm Lesley Friendcharlesamado [facility]; [facility] Work Phone: 10-14-2008 15:37-0400 Heart rate 68 /min Lesley Fritz [facility]; [facility] Work Phone: Comment on above: Pattern: Regular 10-14-2008 15:37-0400 Respiratory rate 18 /min Lesley Fritz [facility]; [facility] Work Phone: Comment on above: Pattern: Undefined 10-14-2008 15:37-0400 Systolic blood pressure 100 mm[Hg] Lesley Fritz [facility]; [facility] Work Phone: Comment on above: Patient Position: Sitting; Cuff Location : Right Arm; Cuff Size: Standard 03-04-2008 16:30-0400 Body height 0 cm Lesley Friendcharlesamado [facility]; [facility] Work Phone: 03-04-2008 16:30-0400 Body temperature 97 [degF] Lesley Fritz [facility]; [facility] Work Phone: Comment on above: Method: Undefined 03-04-2008 16:30-0400 Body weight 0 kg Lesley Friendjo ann [facility]; [facility] Work Phone: 03-04-2008 16:30-0400 Diastolic blood pressure 70 mm[Hg] Lesley Friendcharlesamado [facility]; [facility] Work Phone: Comment on above: Patient Position: Sitting; Cuff Location : Right Arm; Cuff Size: Standard 03-04-2008 16:30-0400 Head Occipital-frontal circumference 0 cm Lesley Catrina [facility]; [facility] Work Phone: 03-04-2008 16:30-0400 Heart rate 72 /min Lesley Friendjo ann [facility]; [facility] Work Phone: Comment on above: Pattern: Regular 03-04-2008 16:30-0400 Respiratory rate 18 /min Lesley Friendjo ann [facility]; [facility] Work Phone: Comment on above: Pattern: Undefined 03-04-2008 16:30-0400 Systolic blood pressure 102 mm[Hg] Lesley Friendjo ann [facility]; [facility] Work Phone: Comment on above: Patient Position: Sitting; Cuff Location : Right Arm; Cuff Size: Standard 07-20-2007 11:55-0400 Body height 0 cm ADELAIDA Carey LPN [facility]; [facility] Work Phone: 07-20-2007 11:55-0400 Body weight 0 kg ADELAIDA Carey LPN [facility]; [facility] Work Phone: 07-20-2007 11:55-0400 Diastolic blood pressure 78 mm[Hg] ADELAIDA Carey LPN [facility]; [facility] Work Phone: Comment on above: Patient Position: Standing; Cuff Locatio n: Left Arm; Cuff Size: Standard 07-20-2007 11:55-0400 Head Occipital-frontal circumference 0 cm ADELAIDA Carey LPN [facility]; [facility] Work Phone: 07-20-2007 11:55-0400 Heart rate 84 /min ADELAIDA Carey LPN [facility]; [facility] Work Phone: Comment on above: Pattern: Regular 07-20-2007 11:55-0400 Systolic blood pressure 102 mm[Hg] ADELAIDA Carey SALES RECEPTIONIST [facility]; [facility] Work Phone: Comment on above: Patient Position: Standing; Cuff Locatio n: Left Arm; Cuff Size: Standard 07-20-2007 11:54-0400 Body height 0 cm ADELAIDA Carey SKYE [facility]; [facility] Work Phone: 07-20-2007 11:54-0400 Body weight 0 kg ADELAIDA Carey SALES RECEPTIONIST [facility]; [facility] Work Phone: 07-20-2007 11:54-0400 Diastolic blood pressure 80 mm[Hg] ADELAIDA Carey SALES RECEPTIONIST [facility]; [facility] Work Phone: Comment on above: Patient Position: Sitting; Cuff Location : Left Arm; Cuff Size: Standard 07-20-2007 11:54-0400 Head Occipital-frontal circumference 0 cm ADELAIDA Carey SKYE [facility]; [facility] Work Phone: 07-20-2007 11:54-0400 Heart rate 80 /min ADELAIDA Carey SALES RECEPTIONIST [facility]; [facility] Work Phone: Comment on above: Pattern: Regular 07-20-2007 11:54-0400 Systolic blood pressure 106 mm[Hg] ADELAIDA Carey SALES RECEPTIONIST [facility]; [facility] Work Phone: Comment on above: Patient Position: Sitting; Cuff Location : Left Arm; Cuff Size: Standard 07-20-2007 11:52-0400 Body height 0 cm ADELAIDA Carey SALES RECEPTIONIST [facility]; [facility] Work Phone: 07-20-2007 11:52-0400 Body temperature 97.6 [degF] ADELAIDA Carey SALES RECEPTIONIST [facility]; [facility] Work Phone: Comment on above: Method: Oral 07-20-2007 11:52-0400 Body weight 0 kg ADELAIDA Carey SKYE [facility]; [facility] Work Phone: 07-20-2007 11:52-0400 Diastolic blood pressure 74 mm[Hg] ADELAIDA Carey SKYE [facility]; [facility] Work Phone: Comment on above: Patient Position: Supine; Cuff Location: Left Arm; Cuff Size: Standard 07-20-2007 11:52-0400 Head Occipital-frontal circumference 0 cm ADELAIDA Carey SALES RECEPTIONIST [facility]; [facility] Work Phone: 07-20-2007 11:52-0400 Heart rate 78 /min ADELAIDA Carey SKYE [facility]; [facility] Work Phone: Comment on above: Pattern: Regular 07-20-2007 11:52-0400 Respiratory rate 18 /min ADELAIDA Carey SALES RECEPTIONIST [facility]; [facility] Work Phone: Comment on above: Pattern: Unlabored 07-20-2007 11:52-0400 Systolic blood pressure 104 mm[Hg] ADELAIDA Carey SKYE [facility]; [facility] Work Phone: Comment on above: Patient Position: Supine; Cuff Location: Left Arm; Cuff Size: Standard 09-28-2006 08:09-0400 Body height 0 cm Nikki Fast DO Work Phone: [facility]; [facility] Work Phone: 09-28-2006 08:09-0400 Body temperature 98.6 [degF] Nikki Fast DO Work Phone: [facility]; [facility] Work Phone: Comment on above: Method: Oral 09-28-2006 08:09-0400 Body weight 0 kg Nikki Fast DO Work Phone: [facility]; [facility] Work Phone: 09-28-2006 08:09-0400 Diastolic blood pressure 80 mm[Hg] Nikki Fast DO Work Phone: [facility]; [facility] Work Phone: Comment on above: Patient Position: Sitting; Cuff Location : Left Arm; Cuff Size: Standard 09-28-2006 08:09-0400 Head Occipital-frontal circumference 0 cm Nikki Fast DO Work Phone: [facility]; [facility] Work Phone: 09-28-2006 08:09-0400 Heart rate 78 /min Nikki Fast DO Work Phone: [facility]; [facility] Work Phone: Comment on above: Pattern: Regular 09-28-2006 08:09-0400 Respiratory rate 16 /min Nikki Fast DO Work Phone: [facility]; [facility] Work Phone: Comment on above: Pattern: Unlabored 09-28-2006 08:09-0400 Systolic blood pressure 110 mm[Hg] Nikki Fast DO Work Phone: [facility]; [facility] Work Phone: Comment on above: Patient Position: Sitting; Cuff Location : Left Arm; Cuff Size: Standard Encounters Encounter Date Encounter Type Care Provider Facility Start: 10-08-2024 End: 10-08-2024 ambulatory DENNIS MARCIAL Facility:[facility] Start: 09-06-2024 End: 09-08-2024 Refill Dennis Marcial MD Work Phone: [facility] [place] Comment on above: Refill Request Start: 08-29-2024 End: 08-29-2024 [facility] Facility[facility] Start: 08-07-2024 End: 08-07-2024 Office outpatient visit 10 minutes Ronald Garrido APRN.CNP Work Phone: Pulmonary Medicine Comment on above: 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); Nocturnal hypoxemia; 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); Radiation fibrosis of lung (HCC) Start: 08-07-2024 End: 08-07-2024 ambulatory [facility] Work Phone: [facility] Comment on above: Spirometry Start: 08-07-2024 End: 08-07-2024 Patient encounter procedure [facility] Work Phone: [facility] Start: 07-25-2024 End: 07-25-2024 Chart abstracting Dennis Marcial MD Work Phone: [facility] Start: 07-22-2024 End: 07-22-[address] Dennis Marcial MD Work Phone: [facility] Work Phone: Start: 07-22-2024 End: 07-22-[address] Alexandra Baker MD -Laboratory, [place] Work Phone: Start: 07-22-2024 End: 07-22-2024 ambulatory Dennis Marcial Facility:[facility] Start: 07-17-2024 End: 07-17-2024 Office outpatient visit 15 minutes [facility] Comment on above: Bronchitis (Primary Dx) Start: 07-17-2024 End: 07-17-2024 ambulatory DENNIS MARCIAL Facility:[id number] Start: 07-10-2024 End: 07-10-2024 Patient encounter procedure Kael Nunez APRN.DRY YARD WORKER Work Phone: [facility] Comment on above: Leg swelling (Primar y Dx) Start: 07-10-2024 End: 07-10-2024 ambulatory DENNIS KRISSY MARCIAL Facility:[facility] Start: 07-08-2024 End: 07-08-2024 Follow-up encounter Stephane Ibrahim LPN [facility] Start: 07-05-2024 End: 07-05-2024 ambulatory DENNIS MARCIAL Facility:[facility] Start: 07-05-2024 End: 07-05-2024 Subsequent hospital visit by physician Xr [facility] Work Phone: Radiology Comment on above: Bacterial pneumonia [J15.9] Start: 06-28-2024 End: 06-28-2024 ambulatory DENNIS MARCIAL Facility:[facility] Start: 06-28-2024 End: 06-28-2024 Office outpatient visit 25 minutes Ronald M Click MACHINIST JOB SETTER.[employer] YARD WORKER Work Phone: Pulmonary Medicine Comment on above: 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); Bacterial pneumonia; 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); Radiation fibrosis of lung (HCC); Exertional dyspnea Start: 06-27-2024 End: 06-27-2024 ambulatory DENNIS MARCIAL Facility:[facility] Start: 06-27-2024 End: 06-27-2024 Follow-up encounter Royer Ford Work Phone: Hematology/Oncology Comment on above: Encounter for follow -up surveillance of lung cancer (Primary Dx); Malignant neoplasm of unspecified part of unspecified bronchus or lung (HCC) Start: 06-27-2024 End: 06-27-2024 Patient encounter procedure Royer Ford Work Phone: Hematology/Oncology Start: 06-26-2024 End: 06-26-2024 Office outpatient visit 15 minutes Dennis Marcial MD Work Phone: [facility] [place] Comment on above: Bacterial pneumonia (Primary Dx) Start: 06-26-2024 End: 06-26-2024 ambulatory DENNIS MARCIAL Facility:[id number] Start: 06-21-2024 End: 08-21-2024 Follow-up encounter Rocky Gonzales APRN.CNP Work Phone: [facility] Start: 06-20-2024 End: 06-20-2024 Subsequent hospital visit by physician [facility] Work Phone: Radiology Comment on above: Acute cough [R05.1] Start: 06-20-2024 End: 06-20-2024 ambulatory DENNIS MARCIAL Facility:[facility] Start: 06-20-2024 End: 06-20-2024 Patient encounter procedure Michael Babin MD Work Phone: [facility] Comment on above: Acute cough (Primary Dx); Centrilobular emphysema (HCC); Community acquired pneumonia of left lung, unspecified part of lung Start: 06-20-2024 End: 06-20-2024 ambulatory DENNIS MARCIAL Facility:[facility] Start: 06-20-2024 End: 06-20-2024 Subsequent hospital visit by physician Xena [facility] ([facility]) Work Phone: Cat Scan Comment on above: Malignant neoplasm o f unspecified part of unspecified bronchus or lung (HCC) [C34.90] Start: 06-17-2024 End: 06-17-2024 Follow-up encounter Stephane Ibrahim LPN [facility] Start: 06-13-2024 End: 06-13-2024 Refill Dennis Marcial MD Work Phone: [facility] Comment on above: Refill Request Encounter for screen ing mammogram for breast cancer [Z12.31] Start: 06-08-2024 End: 06-08-2024 Emergency department patient visit Dr. Indu Anderson DO -Emergency Department Work Phone: Start: 06-08-2024 End: 06-08-2024 ambulatory DENNIS MARCIAL Facility:[facility] Start: 06-08-2024 End: 06-10-2024 Patient encounter procedure Michael Babin MD Work Phone: [facility] Comment on above: Right arm pain (Prim anthony Dx) Start: 06-03-2024 End: 06-03-2024 Refill Dennis Marcial MD Work Phone: [facility] Comment on above: Refill Request Start: 05-13-2024 End: 05-13-[address] Alexandra Baker MD -Laboratory, [place] Work Phone: Start: 05-13-2024 End: 05-13-2024 ambulatory Alexandra Baker Facility:[facility] Start: 05-10-2024 End: 05-10-2024 ambulatory DENNIS MARCIAL Facility:[facility] Start: 05-10-2024 End: 05-10-2024 Patient encounter procedure Radha Sagastume Work Phone: Podiatry Comment on above: Right foot pain (Kaitlynn yudelka Dx); Pain Start: 05-09-2024 End: 05-09-2024 Subsequent hospital visit by physician Sheela [facility] Work Phone: Radiology Comment on above: Pain [R52] Start: 05-09-2024 End: 05-09-2024 ambulatory DENNIS MARCIAL Facility:[facility] Start: 05-09-2024 End: 05-09-2024 Patient encounter procedure Tima López SANJAY.DRY YARD WORKER Work Phone: [facility] Comment on above: Pain (Primary Dx) Start: 04-22-2024 End: 04-22-2024 Refill Dennis Marcial MD Work Phone: [facility] Comment on above: Refill Request Start: 04-17-2024 End: 04-17-2024 Patient encounter procedure Dennis Marcial MD Work Phone: [facility] Comment on above: Hypertension, essent ial (Primary Dx); Encounter for screening examination for other mental health and behavioral disorders; Encounter for screening mammogram for breast cancer; Primary cancer of right lower lobe of lung (HCC); Paroxysmal atrial fibrillation (HCC); Pure hypercholesterolemia, unspecified; Iron deficiency anemia, unspecified iron deficiency anemia type; Centrilobular emphysema (HCC); Former smoker; Medicare annual wellness visit, subsequent Start: 04-17-2024 End: 04-17-2024 ambulatory DENNIS MARCIAL Facility:[id number] Start: 04-01-2024 End: 04-01-2024 Refill Dennis Marcial MD Work Phone: [facility] Comment on above: Refill Request Start: 02-13-2024 End: 02-22-2024 Telephone encounter Dennis Marcial MD Work Phone: [facility] Comment on above: Results Start: 02-12-2024 End: 02-12-2024 ambulatory DENNIS BRANTLEYON Facility:[id number] Start: 02-12-2024 End: 02-12-2024 Office outpatient visit 15 minutes Dennis Marcial MD Work Phone: [facility] Comment on above: RLS (restless legs s yndrome) (Primary Dx); Gastroesophageal reflux disease, unspecified whether esophagitis present; Iron deficiency anemia, unspecified iron deficiency anemia type; Paroxysmal atrial fibrillation (HCC) Start: 02-08-2024 End: 02-12-2024 Telephone encounter Oscar Mireles MD Work Phone: Pulmonary Medicine Comment on above: Patient Question Start: 01-29-2024 End: 01-30-2024 Patient encounter procedure [facility] Provider [facility] Start: 01-25-2024 End: 01-27-2024 Telephone encounter Dennis Marcial MD Work Phone: [facility] Comment on above: Results Medication Problem Start: 01-22-2024 End: 01-22-2024 Telephone encounter Dennis Marcial MD Work Phone: [facility] Comment on above: Orders (Zoloft Rosalinda fication) Start: 01-20-2024 End: 01-20-2024 ambulatory DENNIS MARCIAL Facility:[facility] Start: 01-20-2024 End: 01-20-2024 Patient encounter procedure Jaspreet Curtis APRN.CNP [facility] Comment on above: Dysuria (Primary Dx) ; Acute cystitis with hematuria Start: 01-10-2024 End: 01-11-2024 Refill Dennis Marcial MD Work Phone: [facility] Comment on above: Refill Request Start: 12-26-2023 End: 12-26-2023 ambulatory Shane Steward MD Work Phone: Hematology/Oncology Comment on above: Malignant neoplasm o f unspecified part of unspecified bronchus or lung (HCC) (Primary Dx) Start: 12-26-2023 End: 12-26-2023 Patient encounter procedure Shane Steward MD Work Phone: Hematology/Oncology Comment on above: Other cough (Primary Dx); Moderate COPD (chronic obstructive pulmonary disease) (HCC); Radiation fibrosis of lung (HCC); 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); Former cigarette smoker Start: 12-20-2023 ambulatory Dennis Marcial Facility: [facility] Start: 12-19-2023 End: 12-19-2023 ambulatory Latia Titus NP Facility:[facility] Start: 12-18-2023 End: 12-19-2023 ambulatory Latia Titus NP Facility:[facility] Start: 12-18-2023 End: 12-18-2023 Subsequent hospital visit by physician [facility] (I-Stat) Work Phone: Cat Scan Comment on above: Malignant neoplasm o f unspecified part of unspecified bronchus or lung (HCC) [C34.90] Start: 11-25-2023 End: 11-25-2023 ambulatory DENNIS MARCIAL Facility:[facility] Start: 11-25-2023 End: 11-25-2023 Patient encounter procedure Tima Rene QUINTANADRY YARD WORKER Work Phone: [facility] Comment on above: Rash (Primary Dx); Itching Start: 10-27-2023 Chart abstracting Dennis Marcial MD Work Phone: [facility] Start: 10-23-2023 ambulatory Latia Titus NP Facili ty:[facility] Start: 10-16-2023 End: 10-17-20[facility] Start: 09-11-2023 Telephone encounter Dennis Marcial MD Work Phone: [facility] Comment on above: Results Start: 09-05-2023 Refill Dennis Meek MD Work Phone: [facility] Comment on above: Refill Request Start: 09-02-2023 Refill Dennis Meek MD Work Phone: [facility] Comment on above: Refill Request Start: 08-23-2023 End: 08-23-2023 Office outpatient visit 25 minutes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 September 27, 2010. FINDINGS: Breast Composition: The breasts are almost entirely fatty. There are no dominant masses or suspicious calcifications. Stable well-defined 4 mm nodule in the axillary region of the right breast most likely representing a small lymph node. No other significant abnormalities are identified. There has been no significant change since the prior study. IMPRESSION: Stable bilateral screening mammogram. Yearly follow-up mammogram recommended. (A) ASSESSMENT CATEGORY: BIRADS Category 2: Benign. A letter regarding these results will be sent to the patient by the facility within 30 days. Approximately 10% of breast cancers are not detected by mammography. A normal mammogram should not delay biopsy of a clinically suspicious abnormality. [id number] Electronically Signed: Jalen Montgomery MD at 7:50 EST Tel [phone], Service support [phone], CC: Nikki Hall DO Executive Vp: Signed Nikki Hall DO Work Phone: Start: 05-19-2015 End: 05-19-2015 Dexa Bone Density Study (HP) Comments: See Note; NOTES: [facility] Imaging Services [address] [place] [address] Verdana 4d Dexa Bone Density Study (HP) MR#: [id number] Acct: [id number] Name: PIOTR SERRANO Rep #: [id number] : 1955 F 59 From: Jalen Montgomery MD PCP: Nikki Hall DO Status: [facility] CLI Study: Dexa Bone Density Study (HP) Date of Exam: 05/19/15 Exam# [id number] Ordering Dr: Nikki Hall DO STUDY: DUAL ENERGY X-RAY ABSORPTIOMETRY / DXA REASON FOR EXAM: Female, 59 years old. Early menopause. Loss of height. TECHNIQUE: Bone Mineral Density (BMD) measurements of lumbar spine and bilateral hips were obtained. COMPARISON: Comparison is made with prior study dated April 16, 2013. FINDINGS: Lumbar Spine (L1-L4): g/cm2 (0.928) / T-score (-2.1) / Z-score (-1.0) Findings are suggestive of osteopenia with a moderate fracture risk. Left Femur Total: g/cm2 (0.813) / T-score (-1.5) / Z-score (-0.7) Left Femoral Neck: g/cm2 (0.819) / T-score (-1.6) / Z-score (-0.4) Right Femur Total: g/cm2 (0.749) / T-score (-2.1) / Z-score (-1.2) Right Femoral Neck: g/cm2 (0.752) / T-score (-2.1) / Z-score (-0.8) The T-Scores on the most recent prior examination were: Lumbar Spine (L1-L4): There has been worsening of bone density since the previous examination. Left Femur Total: which represents an improvement of 2.7%. Right Femur Total: which represents an improvement of 6.2%. IMPRESSION: The patient is considered osteopenic as outlined below according to World Stephane Organization (WHO) criteria with a moderate fracture risk. There has been improvement of bone density since the previous examination. Reference Information: The T-score is the number of standard deviations above or below the standard which is normal for young adults at their peak bone mineral density. The World Health Organization (WHO) interprets the T-scores as follows: Above -1 Normal bone density Between -1 and -2.5 Osteopenia Equal to / or below -2.5 Osteoporosis As a practical clinical guideline, osteopenia may be graded as follows: Mild -1 through -1.5 Moderate -1.6 through -2.0 Severe -2.1 through -2.4 The Z-score is the number of standard deviations above or below age-matched controls. A Z-score of less than -1.5 would be considered abnormal. References: 1. NIH Osteoporosis and Related Bone Diseases http://www.osteo.org 2. International Society for Clinical Densitometry http://www.iscd.org 3. National Osteoporosis Foundation http://www.nof.org Electronically Signed: Jalen Montgomery MD at 15:41 EST Tel [phone], Service support [phone], CC: Nikki Hall DO Executive Vp: Signed Nikki Hall DO Work Phone: Start: 10-31-2014 End: 10-31-2014 Chest PA and Lateral Comments: See Note; NOTES: [facility] Imaging Services [address] [place] [address] Radiology Report MR#: [id number] Acct: [id number] Name: PIOTR SERRANO Rep #: [id number] : 1955 F 59 From: Jalen Montgomery MD PCP: Nikki Hall DO Status: REG CLI Study: Chest PA and Lateral Date of Exam: 10/31/14 Exam# [id number] Ordering Dr: Yudelka Hale STUDY: X-RAY CHEST REASON FOR EXAM: Female, 59 years old. Left anterior chest pain. History of rib fracture. TECHNIQUE: PA and lateral views of the chest. COMPARISON: None. FINDINGS: Mild degree of increased linear markings at the lung bases suggestive of a linear bibasilar atelectasis. There is no demonstrated pleural abnormality. Normal size heart. Normal mediastinum and lizzy. Normal visualized pulmonary arteries. There is atherosclerotic tortuosity of the aortic arch and descending thoracic aorta. There is a dextroscoliosis of the thoracic spine. Normal visualized ribs, clavicles, and shoulders. There is no demonstrated abnormality of the visualized soft tissue structures of the upper abdomen. IMPRESSION: Findings in keeping with mild degree of linear bibasilar atelectasis. Electronically Signed: Jalen Montgomery MD at 11:55 EDT Tel [phone], Service support [phone], RAD/Chest PA and Lateral IMPRESSION: Findings in keeping with mild degree of linear bibasilar atelectasis. Electronically Signed: Jalen Montgomery MD at 11:55 EDT Tel [phone], Service support [phone], CC: Yudelka Hale; Nikki Hall DO Executive Vp: Signed Yudelka Hale Work Phone: Start: 02-03-2014 End: 02-03-2014 Forearm 2 Views Comments: See Note; NOTES: [facility] Imaging Services [address] [place] [address] Radiology Report MR#: [id number] Acct: [id number] Name: PIOTR SERRANO Rep #: [id number] : 1955 F 58 From: Jalen Montgomery MD PCP: Nikki Hall DO Status: REG CLI Study: Forearm 2 Views Date of Exam: 02/03/14 Exam# [id number] Ordering Dr: Nikki Hall DO STUDY: X-RAY - LEFT RADIUS AND ULNA REASON FOR EXAM: Female, 58 years old. Followup for fracture. TECHNIQUE: 2 view(s) of the forearm were obtained in a cast. COMPARISON: Comparison is made with prior study dated January 26, 2014. FINDINGS: There is no demonstrated soft tissue swelling. No definite distal radial fracture is seen. Normal visualized ulna. IMPRESSION: No definite distal radial fracture is seen. Electronically Signed: Jalen Montgomery MD at 11:06 EDT Tel [phone], Service support [phone], CC: Nikki Hall DO Executive Vp: Signed Nikki Hall DO Work Phone: Start: 12-06-2013 End: 12-09-2013 Aorta Comments: See Note; NOTES: [facility] Imaging Services [address] [place] [address] Ultrasound Report MR#: [id number] Acct: [id number] Name: PIOTR SERRANO Rep #: [id number] : 1955 F 58 From: Jalen Montgomery MD PCP: Status: REG CLI Study: Aorta Date of Exam: 12/06/13 Exam# [id number] Ordering Dr: Nikki Hall DO PROCEDURES: ULTRASOUND AORTA REASON FOR EXAM: Female, 58 years old. Screening for abdominal aortic aneurysm. TECHNIQUE: Ultrasound evaluation of the aorta was performed with real-time and static benítez-scale imaging. COMPARISON: None. FINDINGS: There is atherosclerotic plaque formation of the abdominal aorta. Aorta measures: Proximal 2.6 cm. Middle 1.7 cm. Distal 3.4 cm. Aorta measure transversely: Proximal 1.7 cm. Middle 2.1 cm. Distal 1.6 cm. Right iliac artery measures: 0.8 cm. Right iliac artery measure transversely: 1.1 cm. Left iliac artery measures: 0.9 cm. Left iliac artery measure transversely: 1.3 cm. There is no demonstrated aneurysm.. IMPRESSION: There is no evidence of abdominal aortic aneurysm. There is evidence of atherosclerotic plaque. Electronically Signed: Jalen Montgomery MD at 9:09 EDT Tel [phone], Service support [phone], CC: Nikki Hall DO Executive Vp: Signed Nikki Hall DO Work Phone: Start: 05-30-2013 End: 05-30-2013 Liver Comments: See Note; NOTES: [facility] Imaging Services [address] [place] [address] Ultrasound Report MR#: [id number] Acct: [id number] Name: PIOTR SERRANO Rep #: [id number] : 1955 F 57 From: Jalen Montgomery MD PCP: Status: REG CLI Study: Liver Date of Exam: 05/30/13 Exam# [id number] Ordering Dr: Nikki Hall DO STUDY: ABDOMINAL ULTRASOUND - RIGHT UPPER QUADRANT REASON FOR VISIT: Female, 57 years old. Elevated liver enzymes. TECHNIQUE: Ultrasound evaluation of the right upper quadrant was performed with real-time and static benítez-scale imaging. TECHNICAL QUALITY: Adequate. COMPARISON: None. FINDINGS: Liver: The liver measures 15.3 cm. There is increased echogenicity consistent with fatty infiltration. The bile ducts are within normal limits. There is hepatic color flow. The direction of portal flow is hepatopetal. There is no demonstrated mass lesion. Gallbladder: Normal distended gallbladder. The gallbladder wall measures 2.3 mm. There is a negative sonographic Stewart's sign. There is no pericholecystic fluid. There are no gallstones. Common Bile Duct (C.B.D.): The common bile duct measures 5.4 mm. Pancreas: There is nonvisualization of the pancreas. Right Kidney: Normal size of the right kidney. The right kidney measures 10.0 cm. Normal renal cortex. The right cortex measures 0.9 cm. There is no demonstrated renal mass or cyst. There is no right hydronephrosis. IMPRESSION: Fatty infiltration of the liver. Electronically Signed: Jalen Montgomery M.D. at 10:31 EST , Service support [phone], CC: Nikki Hall DO Executive Vp: Signed Nikki Hall DO Work Phone: Start: 04-16-2013 End: 04-17-2013 Dexa Bone Density Study (HP) Comments: See Note; NOTES: [facility] Imaging Services [address] [place] [address] Bone Density Report MR#: [id number] Acct: [id number] Name: PIOTR SERRANO Rep #: [id number] : 1955 F 57 From: Jalen Montgomery MD PCP: Status: [facility] CLI Study: Dexa Bone Density Study (HP) Date of Exam: 04/16/13 Exam# [id number] Ordering Dr: Nikki Hall DO STUDY: DUAL ENERGY X-RAY ABSORPTIOMETRY / DXA REASON FOR EXAM: Female, 57 years old. Early menopause. TECHNIQUE: Bone Mineral Density (BMD) measurements of lumbar spine and bilateral hips were obtained. COMPARISON: Comparison is made with prior examination dated December 02, 2010. FINDINGS: Lumbar Spine (L1-L4): g/cm2 (0.935) / T-score (-2.0) / Z-score (-1.1) Findings are suggestive of osteopenia with a moderate fracture risk. Left Femur Total: g/cm2 (.792) / T-score (-1.7) / Z-score (-0.9) Left Femoral Neck: g/cm2 (0.728) / T-score (-2.2) / Z-score (-1.1) Right Femur Total: g/cm2 (0.705) / T-score (-2.4) / Z-score (-1.8) Right Femoral Neck: g/cm2 (0.683) / T-score (-2.6) / Z-score (-1.4) The T-Scores on the most recent prior examination were: Lumbar Spine (L1-L4): There has been improvement of bone density since the previous examination. Left Femur Total: which represents a worsening of 7.7%. Right Femur Total: which represents a worsening of 6.6%. IMPRESSION: The patient is considered osteopenic as outlined below according to World Stephane Organization (WHO) criteria with a moderate fracture risk. There has been worsening of bone density since the previous examination. Reference Information: The T-score is the number of standard deviations above or below the standard which is normal for young adults at their peak bone mineral density. The World Health Organization (WHO) interprets the T-scores as follows: Above -1 Normal bone density Between -1 and -2.5 Osteopenia Equal to / or below -2.5 Osteoporosis As a practical clinical guideline, osteopenia may be graded as follows: Mild -1 through -1.5 Moderate -1.6 through -2.0 Severe -2.1 through -2.4 The Z-score is the number of standard deviations above or below age-matched controls. A Z-score of less than -1.5 would be considered abnormal. References: 1. NIH Osteoporosis and Related Bone Diseases http://www.osteo.org 2. International Society for Clinical Densitometry http://www.iscd.org 3. National Osteoporosis Foundation http://www.nof.org Electronically Signed: Jalen Montgomery M.D. at 10:56 EST , Service support [phone], CC: Nikki Hall DO Executive Vp: Signed Nikki Hall DO Work Phone: End: 08-10-2010 Tonsillectomy Tonsillectomy Lesley Fritz Plan of Treatment Date Care Activity Detail Author Start: 06-19-2033 Screening for malignant neoplasm of colon [facility] Start: 11-09-2032 Colonoscopy Colonoscopy [facility] Start: 11-09-2032 Colorectal Cancer Screening Colorectal Cancer Screening [facility] Start: 11-09-2032 Screening for malignant neoplasm of colon [facility] Start: 02-04-2031 Colonoscopy COLONOSCOPY [facility] Start: 02-04-2031 COLORECTAL CANCER SCREENING COLORECTAL CANCER SCREENING [facility] Start: 02-04-2031 Screening for malignant neoplasm of colon [facility] Start: 06-20-2029 Lipid panel Lipid Screening [facility] Start: 09-04-2028 Lipid panel Lipid Screening [facility] Start: 01-31-2028 Lipid 1996 panel - Serum or Plasma Lipid Screening [facility] Start: 01-31-2028 Lipid panel Lipid Screening [facility] Start: 08-31-2027 Lipid 1996 panel - Serum or Plasma Lipid Screening [facility] Start: 08-31-2027 LIPID SCREEN LIPID SCREEN [facility] Start: 07-23-2027 Diabetes Screening Diabetes Screening [facility] Start: 06-20-2027 Diabetes Screening Diabetes Screening [facility] Start: 02-04-2027 LIPID SCREEN LIPID SCREEN [facility] Start: 10-14-2026 LIPID SCREEN LIPID SCREEN [facility] Start: 09-04-2026 Diabetes Screening Diabetes Screening [facility] Start: 06-13-2026 Screening for osteoporosis Bone Density Screening [facility] Start: 01-30-2026 Diabetes Screening Diabetes Screening [facility] Start: 10-07-2025 DIABETES SCREEN DIABETES SCREEN [facility] Start: 10-07-2025 Diabetes Screening Diabetes Screening [facility] Start: 08-30-2025 DIABETES SCREEN DIABETES SCREEN [facility] Start: 08-07-2025 BP Controlled (<130/80) BP Controlled (<130/80) [facility] Start: 07-22-2025 Complete blood count Hemoglobin/Hematocrit [facility] Start: 07-17-2025 Annual PCP Team Chronic Disease Visit Annual PCP Team Chronic Disease Visit [facility] Start: 07-13-2025 DIABETES SCREEN DIABETES SCREEN [facility] Start: 06-28-2025 BP Controlled (<130/80) BP Controlled (<130/80) [facility] Start: 06-27-2025 BP Controlled (<130/80) BP Controlled (<130/80) [facility] Start: 06-26-2025 Annual PCP Team Chronic Disease Visit Annual PCP Team Chronic Disease Visit [facility] Start: 06-20-2025 Complete blood count Hemoglobin/Hematocrit [facility] Start: 06-20-2025 Creatinine measurement Serum Creatinine [facility] Start: 06-13-2025 Screening for malignant neoplasm of breast Mammogram Screening [facility] Start: 05-09-2025 BP Controlled (<130/80) BP Controlled (<130/80) [facility] Start: 04-26-2025 DIABETES SCREEN DIABETES SCREEN [facility] Start: 04-17-2025 Annual PCP Team Chronic Disease Visit Annual PCP Team Chronic Disease Visit [facility] Start: 04-17-2025 Anxiety Screening Anxiety Screening [facility] Start: 04-17-2025 BP Controlled (<130/80) BP Controlled (<130/80) [facility] Start: 02-11-2025 Annual PCP Team Chronic Disease Visit Annual PCP Team Chronic Disease Visit [facility] Start: 02-11-2025 BP Controlled (<130/80) BP Controlled (<130/80) [facility] Start: 02-11-2025 Complete blood count Hemoglobin/Hematocrit [facility] Start: 02-04-2025 DIABETES SCREEN DIABETES SCREEN [facility] Start: 01-19-2025 BP Controlled (<130/80) BP Controlled (<130/80) [facility] Start: 01-02-2025 End: 01-02-2025 ambulatory 01/02/2025 9:00 AM EDT Visit (SP) Office Hematology/Oncology [address] [place] [id number] [place] [address] [place] [address] OV/LAB & CT 12/26* Hematology/Oncology Comment on above: OV/LAB & CT 12/26* Start: 12-26-2024 End: 12-26-2024 Patient encounter procedure 12/26/2024 9:00 AM EDT Appointment Cat Scan [address] [place] [address] Dx: Malignant neoplasm of unspecified part of unspecified bronchus or lung (HCC) [C34.90] Cat Scan Comment on above: Dx: Malignant neoplasm of unspecified pa rt of unspecified bronchus or lung (HCC) [C34.90] Start: 12-26-2024 End: 12-26-2024 ambulatory 12/26/2024 8:45 AM EDT Results Only [facility] [address] [place] [address] LABS [facility] Comment on above: LABS Start: 12-25-2024 BP Controlled (<130/80) BP Controlled (<130/80) [facility] in Start: 12-25-2024 End: 07-27-2025 CT Chest WO contrast CT CHEST WO IVCON Radiology Routine Malignant neoplasm of unspecified part of unspecified bronchus or lung (HCC) Expected: 12/25/2024 (Approximate), Expires: 07/27/2025 [facility] Work Phone: Comment on above: Expected: 12/25/2024 (Approximate), Expi res: 07/27/2025 Start: 11-24-2024 BP Controlled (<130/80) BP Controlled (<130/80) [facility] Start: 10-21-2024 End: 10-21-2024 Patient encounter procedure 10/21/2024 10:00 AM EDT [facility] [address] [place] [phone] Dennis Marcial MD [address] [place] [address] 6 Month Follow Up [facility] Comment on above: 6 Month Follow Up Start: 10-16-2024 Complete blood count Hemoglobin/Hematocrit [facility] Start: 10-08-2024 DIABETES SCREEN DIABETES SCREEN [facility] Start: 09-04-2024 Complete blood count Hemoglobin/Hematocrit [facility] Start: 09-04-2024 Creatinine measurement Serum Creatinine [facility] Start: 08-22-2024 Annual PCP Team Chronic Disease Visit Annual PCP Team Chronic Disease Visit [facility] Start: 08-07-2024 End: 08-07-2024 Patient encounter procedure 08/07/2024 10:30 AM EDT Office Visit Pulmonary Medicine [address] [place] [address] Ronald Garrido APRN.DRY YARD WORKER [address] [place] [address] 6 wk f/u Pulmonary Medicine Comment on above: 6 wk f/u Start: 08-07-2024 End: 08-07-2024 ambulatory PULM LAB [facility] Comment on above: Moderate COPD (chronic obstructive pulmo nary disease) ([facility]) [J44.9] Start: 07-17-2024 End: 07-17-2024 Patient encounter procedure 07/17/2024 3:30 PM EDT Office Visit [facility] [address] [place] [phone] Dennis Marcial MD [address] [place] [address] Bilateral ankle swelling X 2 days [facility] Comment on above: Bilateral ankle swelling X 2 days Start: 07-06-2024 Covid-19 Vaccine ( season) Covid-19 Vaccine ( season) [facility] Start: 07-06-2024 Covid-19 Vaccine (7 - Pfizer risk season) Covid-19 Vaccine (7 - Pfizer risk ) [facility] Start: 07-05-2024 DIABETES SCREEN DIABETES SCREEN [facility] Start: 06-28-2024 End: 06-28-2024 Patient encounter procedure 06/28/2024 10:30 AM EST Office Visit Pulmonary Medicine [address] [place] [address] Ronald Garrido APRN.DRY YARD WORKER [address] [place] [address] 6 mo follow up Pulmonary Medicine Comment on above: 6 mo follow up Start: 06-27-2024 End: 06-27-2024 Patient encounter procedure 06/27/2024 10:30 AM EST Office Visit Pulmonary Medicine [address] [place] [address] Oscar Mireles MD [address] [place] [address] 6 mo follow up Pulmonary Medicine Comment on above: 6 mo follow up Start: 06-27-2024 End: 06-27-2024 ambulatory 06/27/2024 10:00 AM EST Visit (SP) Office Hematology/Oncology [address] [place], [place] [phone] [place] [address] [place] [address] 6 MO OV/CT 06/20* Hematology/Oncology Comment on above: 6 MO OV/CT 06/20* Start: 06-26-2024 End: 06-26-2024 Patient encounter procedure 06/26/2024 4:20 PM EST Office Visit [facility] [address] [place] [phone] Dennis Marcial MD [address] [place], [place] [address] Urgent Care Follow Up- Pneumonia [facility] Comment on above: Urgent Care Follow Up- Pneumonia Start: 06-21-2024 BP Controlled (<130/80) BP Controlled (<130/80) [facility] [facility] Start: 06-21-2024 Complete blood count Hemoglobin/Hematocrit [facility] Start: 06-20-2024 End: 06-20-2024 Patient encounter procedure 06/20/2024 10:00 AM EST Appointment Cat Scan [address] [place], [place] [id number] Malignant neoplasm of unspecified part of unspecified bronchus or lung (HCC) [C34.90] Cat Scan Comment on above: Malignant neoplasm of unspecified part o f unspecified bronchus or lung (HCC) [C34.90] Start: 06-20-2024 End: 06-20-2024 ambulatory 06/20/2024 9:30 AM EST Results Only [facility] Draw Station [address] [place] [address] Labs [facility] Draw Station Comment on above: Labs Start: 06-13-2024 End: 06-13-2024 Patient encounter procedure Radiology Comment on above: DXA-AXIAL SKELETON Encounter for screen ing mammogram for breast cancer Start: 06-13-2024 End: 06-13-2024 Patient encounter procedure 06/13/2024 10:15 AM EST Office Visit Podiatry [address] [place] [address] Radha Sagastume [address] [id number] Right foot follow up Podiatry Comment on above: Right foot follow up Start: 06-08-2024 [facility] Start: 05-10-2024 Annual PCP Team Chronic Disease Visit Annual PCP Team Chronic Disease Visit [facility] Start: 05-10-2024 BP Controlled (<130/80) BP Controlled (<130/80) [facility] Start: 05-10-2024 End: 05-10-2024 Patient encounter procedure 05/10/2024 9:00 AM EST Office Visit Podiatry [address] [place] [address] Radha Sagastume [address] [id number] Pain [R52] Podiatry Comment on above: Pain [R52] Start: 05-08-2024 Advance Directive Discussion Advance Directive Discussion [facility] Start: 04-17-2024 End: 04-17-2024 Patient encounter procedure 04/17/2024 3:50 PM EST [facility] [address] [place] [phone] Dennis Marcial MD [address] [place] [address] medicare wellness [facility] Comment on above: medicare wellness Start: 04-17-2024 End: 07-17-2024 CBC W Auto Differential panel - Blood COMPLETE BLOOD COUNT AND DIFFERENTIAL Lab Routine Iron deficiency anemia, unspecified iron deficiency anemia type Expected: 04/17/2024, Expires: 07/17/2024 [facility] Comment on above: Expected: 04/17/2024, Expires: Start: 04-17-2024 End: 07-17-2024 Comprehensive metabolic 2000 panel - Serum or Plasma COMPREHENSIVE METABOLIC PANEL Lab Routine Hypertension, essential Pure hypercholesterolemia, unspecified Expected: 04/17/2024, Expires: 07/17/2024 [facility] Comment on above: Expected: 04/17/2024, Expires: Start: 04-17-2024 End: 07-17-2024 Ferritin [Mass/volume] in Serum or Plasma FERRITIN Lab Routine Iron deficiency anemia, unspecified iron deficiency anemia type Expected: 04/17/2024, Expires: 07/17/2024 [facility] Comment on above: Expected: 04/17/2024, Expires: Start: 04-17-2024 End: 07-17-2024 Iron and Iron binding capacity panel - Serum or Plasma IRON AND TIBC Lab Routine Iron deficiency anemia, unspecified iron deficiency anemia type Expected: 04/17/2024, Expires: 07/17/2024 [facility] Comment on above: Expected: 04/17/2024, Expires: Start: 04-17-2024 End: 07-17-2024 Lipid 1996 panel - Serum or Plasma LIPID PANEL BASIC Lab Routine Pure hypercholesterolemia, unspecified Expected: 04/17/2024, Expires: 07/17/2024 [facility] Comment on above: Expected: 04/17/2024, Expires: Start: 03-06-2024 BP Controlled (<130/80) BP Controlled (<130/80) [facility] Start: 02-28-2024 End: 02-28-2024 Patient encounter procedure 02/28/2024 8:50 AM EDT Office Visit [facility] [address] [place] [phone] Dennis Marcial MD [address] [place] [address] Annual Medicare Wellness Exam [facility] Comment on above: Annual Medicare Wellness Exam Start: 02-10-2024 BP Controlled (<130/80) BP Controlled (<130/80) [facility] Start: 01-31-2024 Annual PCP Team Chronic Disease Visit Annual PCP Team Chronic Disease Visit [facility] Start: 01-31-2024 Complete blood count Hemoglobin/Hematocrit [facility] Start: 01-31-2024 Creatinine measurement Serum Creatinine [facility] Start: 01-31-2024 Hemoglobin/Hematocrit Hemoglobin/Hematocrit [facility] Start: 01-31-2024 Serum Creatinine Serum Creatinine [facility] Start: 01-08-2024 BP CONTROLLED (<130/80) BP CONTROLLED (<130/80) [facility] Start: 01-07-2024 Covid-19 Vaccine ( season) Covid-19 Vaccine ( season) [facility] Start: 01-07-2024 Influenza vaccination [facility] Start: 01-03-2024 ANNUAL PCP TEAM CHRONIC DISEASE VISIT ANNUAL PCP TEAM CHRONIC DISEASE VISIT [facility] Start: 12-28-2023 BP CONTROLLED (<130/80) BP CONTROLLED (<130/80) [facility] Start: 12-26-2023 End: 12-26-2023 Patient encounter procedure 12/26/2023 10:30 AM EDT Office Visit Pulmonary Medicine [address] [place] [address] Oscar Mireles MD [address] [place] [address] 6 month follow up Pulmonary Medicine Comment on above: 6 month follow up Start: 12-26-2023 End: 12-26-2023 ambulatory 12/26/2023 10:00 AM EDT Visit (SP) Office Hematology/Oncology [address] [place] [address] [place] [address] [place] [address] 6 MO OV/CT 12/18/23* Hematology/Oncology Comment on above: 6 MO OV/CT 12/18/23* Start: 12-18-2023 End: 12-18-2023 Patient encounter procedure 12/18/2023 10:00 AM EDT Appointment Cat Scan [address] [place] [address] Cat Scan Comment on above: chest ct Start: 11-29-2023 ANNUAL PCP TEAM CHRONIC DISEASE VISIT ANNUAL PCP TEAM CHRONIC DISEASE VISIT [facility] Start: 11-29-2023 BP CONTROLLED (<130/80) BP CONTROLLED (<130/80) [facility] Start: 11-14-2023 End: 11-14-2023 Patient encounter procedure 11/14/2023 3:00 PM EDT Office Visit Podiatry [address] [place] [address] Radha Sagastume [address] [place] [address] left foot ingrown toenail 2nd toe Podiatry Comment on above: left foot ingrown toenail 2nd toe Start: 10-08-2023 HEMOGLOBIN/HEMATOCRIT HEMOGLOBIN/HEMATOCRIT [facility] Start: 10-08-2023 SERUM CREATININE SERUM CREATININE [facility] Start: 09-13-2023 BP CONTROLLED (<130/80) BP CONTROLLED (<130/80) [facility] Start: 08-31-2023 SERUM CREATININE SERUM CREATININE [facility] Start: 08-30-2023 ANNUAL PCP TEAM CHRONIC DISEASE VISIT ANNUAL PCP TEAM CHRONIC DISEASE VISIT [facility] Start: 08-30-2023 BP CONTROLLED (<130/80) BP CONTROLLED (<130/80) [facility] Start: 08-24-2023 HEMOGLOBIN/HEMATOCRIT HEMOGLOBIN/HEMATOCRIT [facility] Start: 08-23-2023 End: 11-22-2023 CBC W Auto Differential panel - Blood COMPLETE BLOOD COUNT AND DIFFERENTIAL Lab Routine Iron deficiency anemia, unspecified iron deficiency anemia type Expected: 08/23/2023, Expires: 11/22/2023 [facility] Work Phone: Comment on above: Expected: 08/23/2023, Expires: Start: 08-23-2023 End: 11-22-2023 Comprehensive metabolic 2000 panel - Serum or Plasma COMPREHENSIVE METABOLIC PANEL Lab Routine Hypertension, essential Pure hypercholesterolemia Expected: 08/23/2023, Expires: 11/22/2023 [facility] Work Phone: Comment on above: Expected: 08/23/2023, Expires: Start: 08-23-2023 End: 11-22-2023 Iron and Iron binding capacity panel - Serum or Plasma IRON AND TIBC Lab Routine Iron deficiency anemia, unspecified iron deficiency anemia type Expected: 08/23/2023, Expires: 11/22/2023 [facility] Work Phone: Comment on above: Expected: 08/23/2023, Expires: Start: 08-23-2023 End: 11-22-2023 Lipid 1996 panel - Serum or Plasma LIPID PANEL BASIC Lab Routine Pure hypercholesterolemia Expected: 08/23/2023, Expires: 11/22/2023 [facility] Work Phone: Comment on above: Expected: 08/23/2023, Expires: Start: 07-28-2023 Covid-19 Vaccine () Covid-19 Vaccine () [facility] Start: 07-14-2023 SERUM CREATININE SERUM CREATININE [facility] Start: 06-02-2023 End: 01-06-2024 Ct thorax w/o contrast material CT CHEST WO IVCON Radiology Routine Malignant neoplasm of unspecified part of unspecified bronchus or lung (HCC) Expected: 06/02/2023, Expires: 01/06/2024 [facility] Work Phone: Comment on above: Expected: 06/02/2023, Expires: Start: 05-08-2023 Advance Directive Discussion Advance Directive Discussion [facility] Start: 04-26-2023 HEMOGLOBIN/HEMATOCRIT HEMOGLOBIN/HEMATOCRIT [facility] Start: 04-26-2023 SERUM CREATININE SERUM CREATININE [facility] Start: 04-19-2023 Screening for osteoporosis Bone Density Screening [facility] Start: 02-04-2023 SERUM CREATININE SERUM CREATININE [facility] Start: 02-02-2023 ANNUAL PCP TEAM CHRONIC DISEASE VISIT ANNUAL PCP TEAM CHRONIC DISEASE VISIT [facility] Start: 02-02-2023 BP CONTROLLED (<130/80) BP CONTROLLED (<130/80) [facility] Start: 01-06-2023 Covid-19 Vaccine () Covid-19 Vaccine () [facility] Start: 01-06-2023 Influenza vaccination [facility] Start: 01-04-2023 HEMOGLOBIN/HEMATOCRIT HEMOGLOBIN/HEMATOCRIT [facility] Start: 10-14-2022 HEMOGLOBIN/HEMATOCRIT HEMOGLOBIN/HEMATOCRIT [facility] Start: 10-14-2022 Mammography [facility] Start: 10-14-2022 Screening for malignant neoplasm of breast Mammogram Screening [facility] Start: 10-08-2022 HEMOGLOBIN/HEMATOCRIT HEMOGLOBIN/HEMATOCRIT [facility] Start: 10-08-2022 SERUM CREATININE SERUM CREATININE [facility] Start: 08-29-2022 End: 10-29-2022 Comprehensive metabolic 2000 panel - Serum or Plasma COMP METABOLIC PANEL Lab Routine Pure hypercholesterolemia Hypertension, essential Expected: 08/29/2022, Expires: 10/29/2022 [facility] Work Phone: Comment on above: Expected: 08/29/2022, Expires: 3 Start: 08-29-2022 End: 10-29-2022 Erythrocyte sedimentation rate SED RATE WESTERGREN Lab Routine Polyarthritis Expected: 08/29/2022, Expires: 10/29/2022 [facility] Work Phone: Comment on above: Expected: 08/29/2022, Expires: 3 Start: 08-29-2022 End: 10-29-2022 Lipid 1996 panel - Serum or Plasma LIPID PANEL BASIC Lab Routine Pure hypercholesterolemia Expected: 08/29/2022, Expires: 10/29/2022 [facility] Work Phone: Comment on above: Expected: 08/29/2022, Expires: 3 Start: 08-29-2022 End: 10-29-2022 Nuclear Ab [Presence] in Serum by Immunoassay STAN BLOOD Lab Routine Polyarthritis Expected: 08/29/2022, Expires: 10/29/2022 [facility] Work Phone: Comment on above: Expected: 08/29/2022, Expires: 3 Start: 08-29-2022 End: 10-29-2022 Rheumatoid factor [Units/volume] in Serum or Plasma RHEUMATOID FACTOR BL Lab Routine Polyarthritis Expected: 08/29/2022, Expires: 10/29/2022 [facility] Work Phone: Comment on above: Expected: 08/29/2022, Expires: 3 Start: 08-26-2022 End: 10-26-2022 Iron and Iron binding capacity panel - Serum or Plasma IRON + TIBC Lab Routine Iron deficiency anemia secondary to inadequate dietary iron intake Expected: 08/26/2022, Expires: 10/26/2022 [facility] Work Phone: Comment on above: Expected: 08/26/2022, Expires: 3 Start: 06-05-2022 COVID-19 VACCINE (5 - Pfizer series) COVID-19 VACCINE (5 - Pfizer series) [facility] Start: 05-08-2022 ADVANCE DIRECTIVE DISCUSSION ADVANCE DIRECTIVE DISCUSSION [facility] Start: 04-06-2022 End: 02-03-2023 Ct thorax w/o contrast material CT CHEST WO IVCON Radiology Routine Malignant neoplasm of unspecified part of unspecified bronchus or lung (HCC) Expected: 04/06/2022, Expires: 02/03/2023 [facility] Work Phone: Comment on above: Expected: 04/06/2022, Expires: 3 Start: 03-21-2022 End: 05-21-2022 CBC W Auto Differential panel - Blood CBC + DIFF Lab Routine NSCLC of right lung (HCC) Iron deficiency anemia secondary to inadequate dietary iron intake Expected: 03/21/2022, Expires: 05/21/2022 [facility] Work Phone: Comment on above: Expected: 03/21/2022, Expires: 3 Start: 03-21-2022 End: 05-21-2022 Comprehensive metabolic 2000 panel - Serum or Plasma COMP METABOLIC PANEL Lab Routine NSCLC of right lung (HCC) Iron deficiency anemia secondary to inadequate dietary iron intake Expected: 03/21/2022, Expires: 05/21/2022 [facility] Work Phone: Comment on above: Expected: 03/21/2022, Expires: 3 Start: 03-21-2022 End: 05-21-2022 Ferritin [Mass/volume] in Serum or Plasma FERRITIN BLD Lab Routine NSCLC of right lung (HCC) Iron deficiency anemia secondary to inadequate dietary iron intake Expected: 03/21/2022, Expires: 05/21/2022 [facility] Work Phone: Comment on above: Expected: 03/21/2022, Expires: 3 Start: 03-21-2022 End: 05-21-2022 Iron and Iron binding capacity panel - Serum or Plasma IRON + TIBC Lab Routine NSCLC of right lung (HCC) Iron deficiency anemia secondary to inadequate dietary iron intake Expected: 03/21/2022, Expires: 05/21/2022 [facility] Work Phone: Comment on above: Expected: 03/21/2022, Expires: 3 Start: 03-08-2022 PNEUMOCOCCAL: 65+ (2 - PPSV23 if available, else PCV20) PNEUMOCOCCAL: 65+ (2 - PPSV23 if available, else PCV20) [facility] Start: 03-08-2022 PNEUMOCOCCAL: 65+ (2 - PPSV23 or PCV20) PNEUMOCOCCAL: 65+ (2 - PPSV23 or PCV20) [facility] Start: 02-02-2022 End: 04-04-2022 Comprehensive metabolic 2000 panel - Serum or Plasma COMP METABOLIC PANEL Lab Routine Primary hypertension Pure hypercholesterolemia Expected: 02/02/2022, Expires: 04/04/2022 [facility] Work Phone: Comment on above: Expected: 02/02/2022, Expires: 2 Start: 02-02-2022 End: 04-04-2022 Lipid 1996 panel - Serum or Plasma LIPID PANEL BASIC Lab Routine Pure hypercholesterolemia Expected: 02/02/2022, Expires: 04/04/2022 [facility] Work Phone: Comment on above: Expected: 02/02/2022, Expires: 2 Start: 01-06-2022 Influenza vaccination INFLUENZA (#1) [facility] Start: 10-27-2021 End: 12-27-2021 OCCULT BLD EXAM-DIAG OCCULT BLD EXAM-DIAG Microbiology Routine Anemia in other chronic diseases classified elsewhere Expected: 10/27/2021, Expires: 12/27/2021 [facility] Work Phone: Comment on above: Expected: 10/27/2021, Expires: 2 Start: 10-26-2021 End: 12-26-2021 OCCULT BLD EXAM-DIAG OCCULT BLD EXAM-DIAG Microbiology Routine Anemia in other chronic diseases classified elsewhere Expected: 10/26/2021, Expires: 12/26/2021 [facility] Work Phone: Comment on above: Expected: 10/26/2021, Expires: 2 Start: 10-25-2021 End: 12-25-2021 OCCULT BLD EXAM-DIAG OCCULT BLD EXAM-DIAG Microbiology Routine Anemia in other chronic diseases classified elsewhere Expected: 10/25/2021, Expires: 12/25/2021 [facility] Work Phone: Comment on above: Expected: 10/25/2021, Expires: 2 Start: 10-19-2021 End: 11-02-2021 Influenza virus A and B RNA and SARS-CoV-2 (COVID-19) N gene panel - Respiratory specimen by STEVE with probe detection [facility] Work Phone: Comment on above: Expected: 10/19/2021, Expires: 2 Start: 10-19-2021 End: 11-02-2021 SARS-CoV-2 (COVID-19) RNA [Presence] in Respiratory specimen by STEVE with probe detection 2019 CORONAVIRUS Microbiology Routine NSCLC of right lung (HCC) Shortness of breath Centrilobular emphysema (HCC) Paralyzed hemidiaphragm Expected: 10/19/2021, Expires: 11/02/2021 [facility] Work Phone: Comment on above: Expected: 10/19/2021, Expires: 2 Start: 10-08-2021 End: 12-08-2021 FERRITIN BLD [facility] Work Phone: Comment on above: Expected: 10/08/2021, Expires: 2 Start: 10-08-2021 End: 12-08-2021 Folate [Mass/volume] in Serum or Plasma [facility] Work Phone: Comment on above: Expected: 10/08/2021, Expires: 2 Start: 10-08-2021 End: 12-08-2021 IRON + TIBC [facility] Work Phone: Comment on above: Expected: 10/08/2021, Expires: 2 Start: 10-08-2021 End: 12-08-2021 VITAMIN B12 BLOOD [facility] Work Phone: Comment on above: Expected: 10/08/2021, Expires: 2 Start: 07-06-2021 COVID-19 VACCINE (4 - Booster for Pfizer series) COVID-19 VACCINE (4 - Booster for Pfizer series) [facility] Start: 05-08-2021 ADVANCE DIRECTIVE DISCUSSION ADVANCE DIRECTIVE DISCUSSION [facility] Start: 05-03-2021 COVID-19 VACCINE (4 - Booster for Pfizer series) COVID-19 VACCINE (4 - Booster for Pfizer series) [facility] Start: 05-03-2021 PNEUMOCOCCAL: 65+ (2 - PPSV23 if available, else PCV20) PNEUMOCOCCAL: 65+ (2 - PPSV23 if available, else PCV20) [facility] Start: 05-03-2021 PNEUMOCOCCAL: 65+ (2 - PPSV23 or PCV20) PNEUMOCOCCAL: 65+ (2 - PPSV23 or PCV20) [facility] Start: 04-16-2021 LIPID SCREEN LIPID SCREEN [facility] Start: 10-29-2020 PNEUMOVAX AGE 65 AND OVER WITH 5YR LOOKBACK (#1) PNEUMOVAX AGE 65 AND OVER WITH 5YR LOOKBACK (#1) [facility] Start: 2015 RSV Vaccine (1 - 1-dose 60+ series) RSV Vaccine (1 - 1-dose 60+ series) [facility] Start: 08-31-2015 Blood count complete auto&auto difrntl wbc CBC W/AUTO DIFF WBC (92481) [facility] Work Phone: Start: 08-31-2015 Assay of thyroid stimulating hormone tsh TSH (54759) [facility]; [facility] Work Phone: Start: 08-31-2015 Comprehensive metabolic panel METABOLIC PANEL, COMPREHENSIVE (00059) [facility]; [facility] Work Phone: Start: 08-31-2015 Lipid panel LIPID PANEL (28443) [facility]; [facility] Work Phone: Start: 08-31-2015 25 hydroxy includes fractions if performed Vitamin D Hydroxy (09050) [facility]; [facility] Work Phone: Start: 08-31-2015 Alpha-fetoprotein serum [id number] (64715) [facility]; [facility] Work Phone: Start: 08-31-2015 Procedure Education Eprescribed prescriptions (G8553) [facility]; [facility] Work Phone: Start: 04-27-2015 Procedure Education Eprescribed prescriptions (G8553) [facility]; [facility] Work Phone: Start: 12-22-2014 Cyanocobalamin vitamin b-12 VITAMIN B-12 (CYANOCOBALAMIN) (33326) [facility]; [facility] Work Phone: Comment on above: recheck in 6 weeks Start: 12-15-2014 Lipid panel LIPID PANEL (24599) [facility]; [facility] Work Phone: Start: 12-15-2014 Alpha-fetoprotein serum [id number] (12858) [facility]; [facility] Work Phone: Start: 12-15-2014 Cyanocobalamin vitamin b-12 VITAMIN B-12 (CYANOCOBALAMIN) (56287) [facility]; [facility] Work Phone: Start: 12-15-2014 Blood count complete auto&auto difrntl wbc CBC W/AUTO DIFF WBC (63983) [facility]; [facility] Work Phone: Start: 12-15-2014 Urnls dip stick/tablet reagent auto microscopy URINALYSIS, W/ MICRO (42543) [facility]; [facility] Work Phone: Start: 12-15-2014 Comprehensive metabolic panel METABOLIC PANEL, COMPREHENSIVE (64029) [facility]; [facility] Work Phone: Start: 12-15-2014 Assay of thyroid stimulating hormone tsh TSH (66360) [facility]; [facility] Work Phone: Start: 12-15-2014 25 hydroxy includes fractions if performed Vitamin D Hydroxy (15497) [facility]; [facility] Work Phone: Start: 12-15-2014 Procedure Education Eprescribed prescriptions (G8553) [facility]; [facility] Work Phone: Start: 10-31-2014 Provider Instructions for Treatment Follow up if no improvement or if symptoms worsen [facility]; [facility] Work Phone: Start: 08-11-2014 25 hydroxy includes fractions if performed Vitamin D Hydroxy (04066) [facility]; [facility] Work Phone: Start: 08-11-2014 Comprehensive metabolic panel METABOLIC PANEL, COMPREHENSIVE (85543) [facility]; [facility] Work Phone: Start: 08-11-2014 Lipid panel LIPID PANEL (93999) [facility]; [facility] Work Phone: Start: 08-11-2014 Procedure Education Eprescribed prescriptions (G8553) [facility]; [facility] Work Phone: Start: 06-16-2014 Blood count manual cell count each CBC with auto diff (31208) [facility]; [facility] Work Phone: Start: 06-16-2014 Alpha-fetoprotein serum [id number] (33805) [facility]; [facility] Work Phone: Start: 06-16-2014 Comprehensive metabolic panel METABOLIC PANEL, COMPREHENSIVE (08573) [facility]; [facility] Work Phone: Start: 06-16-2014 Lipid panel LIPID PANEL (06425) [facility]; [facility] Work Phone: Start: 06-16-2014 25 hydroxy includes fractions if performed Vitamin D Hydroxy (24798) [facility]; [facility] Work Phone: Start: 06-16-2014 Assay of phosphorus inorganic PHOSPHORUS (11248) [facility]; [facility] Work Phone: Start: 06-16-2014 Assay of parathormone PARATHORMONE (29063) [facility]; [facility] Work Phone: Start: 06-16-2014 Protein electrophoretic fractj&quantj serum [facility]; [facility] Work Phone: Start: 06-16-2014 Assay of thyroid stimulating hormone tsh TSH (80630) [facility]; [facility] Work Phone: Start: 06-16-2014 Calcium urine quantitative timed specimen URINE CALCIUM TRAY TIMED 24 Hour (75751) [facility]; [facility] Work Phone: Start: 06-16-2014 Procedure Education Eprescribed prescriptions (G8553) [facility]; [facility] Work Phone: Start: 05-23-2014 Procedure Education Eprescribed prescriptions (G8553) [facility]; [facility] Work Phone: Start: 12-31-2013 Cul bact xcpt urine blood/stool aerobic isol LIMA CULTURE-OTHER (77377) [facility]; [facility] Work Phone: Comment on above: back incision Start: 12-31-2013 Iadna s aureus methicillin resist amp probe tq MRSA Culture (87254) [facility]; [facility] Work Phone: Comment on above: nose Start: 12-06-2013 Thromboplastin time partial plasma/whole blood PTT (Activated Partial Thromboplastin Time) (15722) [facility]; [facility] Work Phone: Start: 12-06-2013 Alpha-fetoprotein serum [id number] (24267) [facility]; [facility] Work Phone: Start: 12-06-2013 Prothrombin time PT (Prothrobim Time) (84420) [facility]; [facility] Work Phone: Start: 12-06-2013 Comprehensive metabolic panel METABOLIC PANEL, COMPREHENSIVE (53985) [facility]; [facility] Work Phone: Start: 12-06-2013 Comprehensive metabolic panel METABOLIC PANEL, COMPREHENSIVE (74153) [facility]; [facility] Work Phone: Start: 12-06-2013 Lipid panel LIPID PANEL (60725) [facility] Work Phone: Start: 12-04-2013 Procedure Education Eprescribed prescriptions (G8553) [facility] Work Phone: Start: 11-05-2013 Lipid panel LIPID PANEL (94212) [facility] Work Phone: Start: 07-06-2013 Lipid panel LIPID PANEL (04629) [facility] Work Phone: Start: 07-06-2013 Comprehensive metabolic panel METABOLIC PANEL, COMPREHENSIVE (96475) [facility] Work Phone: Start: 07-06-2013 25 hydroxy includes fractions if performed Vitamin D Hydroxy (20849) [facility] Work Phone: Start: 03-20-2013 Provider Instructions for Treatment Diet, Exercise, and Wt loss [facility] Work Phone: Start: 02-27-2013 Patient Education Water in diet, brief version [facility]; [facility] Work Phone: Start: 02-27-2013 Provider Instructions for Treatment [facility] Work Phone: Start: 09-04-2012 Provider Instructions for Treatment *Cholesterol - Medication Side Effects [facility] Work Phone: Start: 08-02-2011 Blood count manual cell count each CBC WITH MANUAL DIFF (31223) [facility]; [facility] Work Phone: Start: 08-02-2011 Comprehensive metabolic panel METABOLIC PANEL, COMPREHENSIVE (42175) [facility]; [facility] Work Phone: Start: 08-02-2011 Assay of thyroid stimulating hormone tsh TSH (45616) [facility]; [facility] Work Phone: Start: 08-02-2011 Lipid panel LIPID PANEL (71598) [facility]; [facility] Work Phone: Start: 08-02-2011 25 hydroxy includes fractions if performed Vitamin D Hydroxy (83490) [facility]; [facility] Work Phone: Start: 08-02-2011 Provider Instructions for Treatment *Bisphosphonate Education [facility]; [facility] Work Phone: Start: 01-31-2011 Blood count manual cell count each CBC WITH MANUAL DIFF (34468) [facility]; [facility] Work Phone: Start: 01-31-2011 Comprehensive metabolic panel METABOLIC PANEL, COMPREHENSIVE (44841) [facility]; [facility] Work Phone: Start: 01-31-2011 Assay of parathormone PARATHORMONE (50996) [facility]; [facility] Work Phone: Start: 01-31-2011 25 hydroxy includes fractions if performed Vitamin D Hydroxy (56064) [facility]; [facility] Work Phone: Start: 01-31-2011 Lipid panel LIPID PANEL (85628) [facility]; [facility] Work Phone: Start: 01-31-2011 Provider Instructions for Treatment *Bisphosphonate Education [facility]; [facility] Work Phone: Start: 08-10-2010 Comprehensive metabolic panel METABOLIC PANEL, COMPREHENSIVE (32676) [facility]; [facility] Work Phone: Start: 08-10-2010 Lipid panel LIPID PANEL (74312) [facility]; [facility] Work Phone: Start: 08-10-2010 1 25 dihydroxy includes fractions if performed VITAMIN D, 1, 25-DIHYDROXY (82828) [facility]; [facility] Work Phone: Start: 08-10-2010 Provider Instructions for Treatment Diet, Exercise, and Wt loss [facility]; [facility] Work Phone: Start: 06-07-2010 25 hydroxy includes fractions if performed Vitamin D Hydroxy (39796) [facility]; [facility] Work Phone: Start: 06-07-2010 Provider Instructions for Treatment *Antibiotic Usage Education - Female [facility]; [facility] Work Phone: Start: 03-17-2010 Lipid panel LIPID PANEL (79356) [facility]; [facility] Work Phone: Start: 03-17-2010 Comprehensive metabolic panel METABOLIC PANEL, COMPREHENSIVE (73430) [facility]; [facility] Work Phone: Start: 03-17-2010 Blood count manual cell count each CBC WITH MANUAL DIFF (50345) [facility]; [facility] Work Phone: Start: 03-17-2010 25 hydroxy includes fractions if performed Vitamin D Hydroxy (41370) [facility]; [facility] Work Phone: Start: 03-17-2010 Assay of thyroid stimulating hormone tsh TSH (32461) [facility]; [facility] Work Phone: Start: 03-17-2009 Assay of thyroid stimulating hormone tsh TSH (45188) [facility]; [facility] Work Phone: Start: 03-17-2009 Sedimentation rate rbc non-automated SED RATE ERYTHROCYTE (70655) [facility]; [facility] Work Phone: Start: 03-17-2009 C-reactive protein C-REACTIVE PROTEIN (75712) [facility]; [facility] Work Phone: Start: 03-17-2009 Comprehensive metabolic panel METABOLIC PANEL, COMPREHENSIVE (13138) [facility]; [facility] Work Phone: Start: 03-17-2009 Blood count manual cell count each CBC WITH MANUAL DIFF (28122) [facility]; [facility] Work Phone: Start: 03-17-2009 Blood occult peroxidase actv qual feces 1 deter OCCULT BLOOD FECES SCREEN (15169) [facility]; [facility] Work Phone: Start: 03-17-2009 Culture bacterial any source anaerobic iso&id C-DIFFICILE, STOOL (97406) [facility]; [facility] Work Phone: Start: 03-17-2009 Leukocyte assmt fecal qual/semiquantitative LEUKOCYTE COUNT, FECAL (91952) [facility]; [facility] Work Phone: Start: 03-17-2009 Ova&parasites direct smears concentration & id OVA & PARASITE DIR SMEAR (59453) [facility]; [facility] Work Phone: Start: 03-17-2009 Cul bact stool aerobic isol salmonella&shigell LIMA CULTURE-STOOL (91050) [facility]; [facility] Work Phone: Start: 03-17-2009 Provider Instructions for Treatment [facility]; [facility] Work Phone: Start: 01-19-2009 Provider Instructions for Treatment FOLLOW UP IN 3 WEEKS [facility]; [facility] Work Phone: Start: 11-19-2008 25 hydroxy includes fractions if performed Vitamin D Hydroxy (53598) [facility]; [facility] Work Phone: Start: 10-14-2008 25 hydroxy includes fractions if performed Vitamin D Hydroxy (63960) [facility]; [facility] Work Phone: Start: 10-14-2008 Cyanocobalamin vitamin b-12 VITAMIN B-12 (CYANOCOBALAMIN) (25760) [facility]; [facility] Work Phone: Start: 07-20-2007 Provider Instructions for Treatment FOLLOW UP IN 2 WEEKS [facility]; [facility] Work Phone: Start: 09-28-2006 Provider Instructions for Treatment URI treament [facility]; [facility] Work Phone: Start: 09-28-2006 Iaadiadoo streptococcus group a Rapid Strep Test, Office (22976) [facility]; [facility] Work Phone: Start: 09-28-2006 Cul bact xcpt urine blood/stool aerobic isol LIMA CULTURE-OTHER (36943) [facility]; [facility] Work Phone: Start: 09-28-2006 Culture bacterial any source anaerobic iso&id BACT CULTURE ANY-ANAEROBIC (52410) [facility]; [facility] Work Phone: Start: 10-29-2005 SHINGRIX VACCINE (1 of 2) SHINGRIX VACCINE (1 of 2) [facility] Start: 10-29-2000 COLOGUARD (FIT-DNA) COLOGUARD (FIT-DNA) [facility] Start: 10-29-[address] COLONOGRAPHY [facility] Start: 10-29-2000 FECAL OCCULT BLOOD FECAL OCCULT BLOOD [facility] Start: 10-29-2000 Screening for malignant neoplasm of colon [facility] Start: 10-29-2000 SIGMOIDOSCOPY SIGMOIDOSCOPY [facility] Start: 1995 Mammography MAMMOGRAM [facility] Start: 10-29-1985 Zoledronic acid therapy ALPHA-1 ANTITRYPSIN DEFICIENCY SCREENING [facility] Start: 10-29-1974 SHINGRIX VACCINE (1 of 2) SHINGRIX VACCINE (1 of 2) [facility] Start: 10-29-1974 Urine microalbumin profile [facility] Start: 10-29-1973 ANNUAL PCP TEAM CHRONIC DISEASE VISIT ANNUAL PCP TEAM CHRONIC DISEASE VISIT [facility] Start: 10-29-1973 Anxiety Screening Anxiety Screening [facility] Start: 10-29-1973 BP CONTROLLED (<130/80) BP CONTROLLED (<130/80) [facility] Start: 10-29-1973 HEPATITIS C SCREENING HEPATITIS C SCREENING [facility] Start: 10-29-1973 HIV SCREENING HIV SCREENING [facility] Start: 10-29-1966 Screening for malignant neoplasm of cervix Cervical Cancer Screening [facility] Bacteria identified in Urine by Culture URINE CULTURE Microbiology Routine Burning with urination 01/25/2023 12:31 PM EDT [facility] Work Phone: Bacteria identified in Urine by Culture URINE CULTURE Microbiology Routine Dysuria Ordered: 01/20/2024 [facility] Comment on above: Ordered: 01/20/2024 Calprotectin [Mass/mass] in Stool CALPROTECTIN,FECAL Lab Routine C. difficile diarrhea Ordered: 03/06/2023 [facility] Work Phone: Comment on above: Ordered: 03/06/2023 Clostridioides difficile toxin genes [Presence] in Stool by STEVE with probe detection C. DIFFICILE PCR Lab Routine Diarrhea, unspecified type Ordered: 12/27/2022 [facility] Work Phone: Comment on above: Ordered: 12/27/2022 Clostridioides difficile toxin genes [Presence] in Stool by STEVE with probe detection C. DIFFICILE PCR Lab Routine Diarrhea, unspecified type Ordered: 01/07/2023 [facility] Work Phone: Comment on above: Ordered: 01/07/2023 Clostridioides difficile toxin genes [Presence] in Stool by STEVE with probe detection C. DIFFICILE PCR Lab Routine C. difficile diarrhea Ordered: 03/06/2023 [facility] Work Phone: Comment on above: Ordered: 03/06/2023 COVID & INFLUENZA A/ B & RSV PCR, ROUTINE COVID & INFLUENZA A/B & RSV PCR, ROUTINE Microbiology Routine Acute cough 06/20/2024 1:03 PM EST [facility] Work Phone: End: 07-20-2024 CT Chest WO contrast CT CHEST WO IVCON Radiology Routine Malignant neoplasm of unspecified part of unspecified bronchus or lung (HCC) 1 Occurrences starting 06/21/2023 until 07/20/2024 [facility] Work Phone: Comment on above: 1 Occurrences starting 06/21/2023 until 07/20/2024 CT Chest WO contrast CT CHEST WO IVCON Radiology Routine Malignant neoplasm of unspecified part of unspecified bronchus or lung (HCC) 12/18/2023 10:55 AM EDT [facility] Work Phone: End: 01-24-2025 CT Chest WO contrast CT CHEST WO IVCON Radiology Routine Malignant neoplasm of unspecified part of unspecified bronchus or lung (HCC) 1 Occurrences starting 12/26/2023 until 01/24/2025 [facility] Work Phone: Comment on above: 1 Occurrences starting 12/26/2023 until 01/24/2025 CT Chest WO contrast CT CHEST WO IVCON Radiology Routine Malignant neoplasm of unspecified part of unspecified bronchus or lung (HCC) 06/20/2024 10:09 AM EST [facility] Work Phone: End: 05-17-2025 DBT Breast - bilateral screening JERALD SCREENING W OBIE Radiology Routine Encounter for screening mammogram for breast cancer 1 Occurrences starting 04/17/2024 until 05/17/2025 [facility] Work Phone: Comment on above: 1 Occurrences starting 04/17/2024 until 05/17/2025 End: 05-17-2025 DXA Skeletal system.axial Views for bone density DXA-AXIAL SKELETON Radiology Routine 1 Occurrences starting 04/17/2024 until 05/17/2025 [facility] Comment on above: 1 Occurrences starting 04/17/2024 until 05/17/2025 DXA Skeletal system.axial Views for bone density DXA-AXIAL SKELETON Radiology Routine 06/13/2024 12:41 PM EST [facility] Work Phone: End: 10-12-2022 EGD DIAGNOSTIC EGD DIAGNOSTIC Endoscopy Routine Other iron deficiency anemia 1 Occurrences starting 10/12/2021 until 10/12/2022 [facility] Work Phone: Comment on above: 1 Occurrences starting 10/12/2021 until 10/12/2022 End: 10-18-2022 EGD DIAGNOSTIC EGD DIAGNOSTIC Endoscopy Routine Other iron deficiency anemia 1 Occurrences starting 10/18/2021 until 10/18/2022 [facility] Work Phone: Comment on above: 1 Occurrences starting 10/18/2021 until 10/18/2022 ENTERIC BACTERIAL PA VIKRAM BY PCR ENTERIC BACTERIAL PANEL BY PCR Lab Routine Diarrhea, unspecified type Ordered: 12/27/2022 [facility] Work Phone: Comment on above: Ordered: 12/27/2022 ENTERIC BACTERIAL PA VIKRAM BY PCR ENTERIC BACTERIAL PANEL BY PCR Lab Routine Diarrhea, unspecified type Ordered: 01/07/2023 [facility] Work Phone: Comment on above: Ordered: 01/07/2023 End: 11-29-2022 Gi imag intraluminal esophagus-ileum w/i&r CAPSULE ENDOSCOPY SMALL BOWEL Endoscopy Routine Gastrointestinal hemorrhage, unspecified gastrointestinal hemorrhage type Intussusception (HCC) 1 Occurrences starting 11/29/2021 until 11/29/2022 [facility] Work Phone: Comment on above: 1 Occurrences starting 11/29/2021 until 11/29/2022 Lipid 1996 panel - Serum or Plasma [facility] End: 07-28-2025 LUNG DIFFUSION CAPACITY (DLCO) LUNG DIFFUSION CAPACITY (DLCO) PFT Routine Moderate COPD (chronic obstructive pulmonary disease) (HCC) 1 Occurrences starting 06/28/2024 until 07/28/2025 [facility] Comment on above: 1 Occurrences starting 06/28/2024 until 07/28/2025 LUNG DIFFUSION CAPAC ITY (DLCO) LUNG DIFFUSION CAPACITY (DLCO) PFT Routine Moderate COPD (chronic obstructive pulmonary disease) (HCC) 08/07/2024 9:36 AM EDT [facility] Work Phone: End: 07-28-2025 LUNG VOLUMES LUNG VOLUMES PFT Routine Moderate COPD (chronic obstructive pulmonary disease) (HCC) 1 Occurrences starting 06/28/2024 until 07/28/2025 [facility] Comment on above: 1 Occurrences starting 06/28/2024 until 07/28/2025 LUNG VOLUMES LUNG VOLUMES PFT Routine Moderate COPD (chronic obstructive pulmonary disease) (HCC) 08/07/2024 9:36 AM EDT [facility] Work Phone: Ova and parasites identified in Unspecified specimen by Light microscopy OVA + PARA MICROSCOPIC Microbiology Routine Diarrhea, unspecified type Ordered: 12/27/2022 [facility] Work Phone: Comment on above: Ordered: 12/27/2022 Ova and parasites identified in Unspecified specimen by Light microscopy OVA + PARA MICROSCOPIC Microbiology Routine Diarrhea, unspecified type Ordered: 01/07/2023 [facility] Work Phone: Comment on above: Ordered: 01/07/2023 OXIMETRY - NOCTURNAL OXIMETRY - NOCTURNAL Procedures Routine Centrilobular emphysema (HCC) Ordered: 09/10/2021 [facility] Work Phone: Comment on above: Ordered: 09/10/2021 OXIMETRY - NOCTURNAL OXIMETRY - NOCTURNAL Procedures Routine Malignant neoplasm of right lung, unspecified part of lung (HCC) Moderate COPD (chronic obstructive pulmonary disease) (HCC) Ordered: 09/12/2022 [facility] Work Phone: Comment on above: Ordered: 09/12/2022 Patient Education ED Shoulder Pa in, Uncertain Cause [facility] Work Phone: Patient referral [facility] Work Phone: End: 04-20-2023 Radiologic exam chest 2 views XR CHEST 2V FRONTAL/LAT Radiology Routine NSCLC of right lung (HCC) 1 Occurrences starting 03/21/2022 until 04/20/2023 [facility] Work Phone: Comment on above: 1 Occurrences starting 03/21/2022 until 04/20/2023 End: 07-28-2025 SPIROMETRY WITH DILATOR IF OBSTRUCTED SPIROMETRY WITH DILATOR IF OBSTRUCTED PFT Routine Moderate COPD (chronic obstructive pulmonary disease) (HCC) 1 Occurrences starting 06/28/2024 until 07/28/2025 [facility] Work Phone: Comment on above: 1 Occurrences starting 06/28/2024 until 07/28/2025 SPIROMETRY WITH DILA TOR IF OBSTRUCTED SPIROMETRY WITH DILATOR IF OBSTRUCTED PFT Routine Moderate COPD (chronic obstructive pulmonary disease) (HCC) 08/07/2024 9:36 AM EDT [facility] Work Phone: SURGICAL PATHOLOGY [facility] Work Phone: Comment on above: Release Upon Ordering for 1 Occurrences starting 11/17/2021, 1 completed UA DIP, URINE (POC) UA DIP, URIN E (POC) Lab Routine Dysuria Ordered: 01/20/2024 [facility] Work Phone: Comment on above: Ordered: 01/20/2024 End: 07-26-2025 XR Chest PA and Lateral XR CHEST 2V FRONTAL/LAT Radiology Routine Bacterial pneumonia 1 Occurrences starting 06/26/2024 until 07/26/2025 [facility] Work Phone: Comment on above: 1 Occurrences starting 06/26/2024 until 07/26/2025 [facility] Work Phone: [facility] Work Phone: [facility] Work Phone: [facility] Work Phone: [facility] Work Phone: [facility] Work Phone: [facility] Work Phone: [facility] Work Phone: [facility] Work Phone: [facility] Work Phone: [facility] Work Phone: [facility] Work Phone: [facility] Work Phone: [facility] Work Phone: [facility] Work Phone: [facility] Work Phone: [facility] Work Phone: [facility] Work Phone: [facility] Work Phone: [facility] Work Phone: [facility] Work Phone: [facility] Work Phone: [facility] Immunizations Immunization Date Immunization Notes Care Provider [facility] 01-07-2024 influenza, high dose seasonal, preservative-free Dennis Marcial MD Work Phone: [facility] 05-11-2023 respiratory syncytia l virus (RSV) vaccine, adjuvanted (AREXVY) Shane Steward MD Work Phone: [facility] Work Phone: 03-29-2023 influenza (aIIV4) vaccine, age 65+ yr, quadrivalent, PF (FLUAD QUAD) Shane Steward MD Work Phone: [facility] Work Phone: 03-29-2023 influenza virus vaccine, unspecified formulation Tima López APRN.[facility] Work Phone: [facility] 08-09-2022 zoster vaccine recombinant Dennis Marcial MD Work Phone: [facility] 05-14-2022 pneumococcal (PCV20) vaccine, 20 valent (PREVNAR 20) Dennis Marcial MD Work Phone: [facility] 05-14-2022 zoster vaccine recombinant Dennis Marcial MD Work Phone: [facility] 02-09-2022 influenza, high-dose , quadrivalent vaccine (FLUZONE HIGH DOSE QUADRIVALENT) Oscar Mireles MD Work Phone: [facility] 02-09-2022 influenza virus vaccine, unspecified formulation Dennis Marcial MD Work Phone: [facility] 03-22-2021 influenza nasal, unspecified formulation Dennis Marcial MD Work Phone: [facility] 03-08-2021 COVID-19 vaccine, ag e 12+ yr (PFIZER-BIONTECH - PURPLE TOP) Oscar Mireles MD Work Phone: [facility] 03-08-2021 pneumococcal conjuga te vaccine, 13 valent Oscar Mireles MD Work Phone: [facility] 02-10-2021 influenza (aIIV4) vaccine, age 65+ yr, quadrivalent, PF (FLUAD QUADRIVALENT) Dennis Marcial MD Work Phone: [facility] 08-16-2020 COVID-19 vaccine, ag e 12+ yr (PFIZER-BIONTECH - PURPLE TOP) Oscar Mireles MD Work Phone: [facility] 07-26-2020 COVID-19 vaccine, ag e 12+ yr (PFIZER-BIONTECH - PURPLE TOP) Oscar Mireles MD Work Phone: [facility] 02-20-2020 influenza, injectabl e, quadrivalent, preservative free [facility] 02-20-2020 influenza, seasonal, injectable Dr. Dennis Marcial Work Phone: [facility] 02-07-2020 Seasonal, quadrivalent, recombinant, injectable influenza vaccine, preservative free Dennis Marcial MD Work Phone: [facility] 02-14-2019 Influenza, injectabl e, Madin Darlene Canine Kidney, preservative free, quadrivalent Dennis Marcial MD Work Phone: [facility] 02-14-2018 influenza nasal, unspecified formulation Dennis Marcial MD Work Phone: [facility] 02-11-2018 influenza, injectabl e, quadrivalent, preservative free Dennis Marcial MD Work Phone: [facility] Payers Date Payer Category Payer Self-pay [id number] 2021 Medicare [id number] 2021 Private Health Insurance [facility] AARP SUPPLEMENT [id number] 2021-Present [phone] [address] [place] [address] Indemnity [id number] 2021 Private Health Insurance [id number] 2021 Unknown [id number] 2021 Medicare [id number] 2020 Medicare [id number] 2015 Unknown [id number] Unknown [facility] Unknown [id number] Unknown [id number] Unknown [id number] Unknown [id number] Unknown [id number] Unknown [id number] Unknown [id number] Unknown [id number] Unknown [id number] Unknown [id number] Social History Date Type Detail Facility Start: 03-24-2020 End: 01-20-2024 Tobacco smoking status NVIS Ex-smoker [facility] Work Phone: Start: 03-24-1970 End: 03-24-2000 History of tobacco use Current smoker [facility] Work Phone: Start: 03-24-1970 End: 03-24-2000 History of tobacco use Cigarette Smoker [facility] Work Phone: Start: 09-10-2021 End: 08-07-2024 Alcohol intake Current non-drinker of alcohol (finding) [facility] Start: 1955 Sex Assigned At Female [facility] Start: 08-31-2021 End: 02-09-2022 Exposure to SARS-CoV-2 (event) Not sure [facility] Work Phone: Start: 03-24-2020 End: 09-12-2022 Alcohol Use Alcohol Use [facility] [facility]; [facility] Work Phone: Comment on above: Occasional alcohol u se 4 Glasses per day Full-time, [employer] In[employer] , Lives with spouse 1 pack for 30 years, Recently quit tobacco use Tobacco use: Tobacco use: [facility]; [facility] Work Phone: Start: 07-09-2021 End: 11-11-2022 Tobacco smoking status NHIS Unknown if ever smoked [facility] Start: 05-26-2020 None [facility] Start: 09-14-2020 Non-smoker [facility] Start: 10-12-2021 End: 10-22-2021 Exposure to SARS-CoV-2 (event) Yes [facility] Start: 03-24-2020 End: 01-20-2024 Tobacco use and exposure Smokeless tobacco non-user [facility] Start: 02-02-2022 History SDOH Alcohol Frequency 1 [facility] Start: 02-02-2022 History SDOH Alcohol Std Drinks 0 [facility] Start: 02-02-2022 History SDOH Social Connections Phone 2 [facility] Start: 02-02-2022 History SDOH Social Connections Living 3 [facility] Start: 02-02-2022 History SDOH Financial 5 [facility] Start: 02-02-2022 End: 09-12-2022 Social connection and isolation panel [facility] Do you belong to any clubs or organizations such as hinduism groups, unions, fraternal or athletic groups, or school groups? No [facility] Are you now , , , , never or living with a partner? [facility] How often to you hav e a drink containing alcohol? Never [facility] How many standard drinks containing alcohol do you have on a typical day? Patient does not drink [facility] Do you feel stress - tense, restless, nervous, or anxious, or unable to sleep at night because your mind is troubled all the time - these days [OSQ] Only a little [facility] (I/We) worried wheth er (my/our) food would run out before (I/we) got money to buy more. Never true [facility] Start: 03-30-2020 Gender identity Identifies as female gender (finding) [facility] Start: 03-30-2020 Sexual orientation Heterosexual (audrey tapia) [facility] Start: 07-31-2024 Sex Female (finding) [facility] Functional Status Date Assessment Result Facility 06-27-2020 Are you deaf, or do you have serious difficulty hearing No 06/27/2020 1:34 PM Bentley Rodríguez RN No [facility] 06-27-2020 Are you blind, or do you have serious difficulty seeing, even when wearing glasses No 06/27/2020 1:34 PM Bentley Rodríguez, VANDANA No [facility] 06-27-2020 Do you have serious difficulty walking or climbing stairs No 06/27/2020 1:34 PM Bentley Rodríguez RN No [facility] 06-27-2020 Do you have difficul ty dressing or bathing No 06/27/2020 1:34 PM Bentley Rodríguez RN No [facility] 06-27-2020 Because of a physica l, mental, or emotional condition, do you have difficulty doing errands alone such as visiting a physician's office or shopping No 06/27/2020 1:34 PM Bentley Rodríguez RN No [facility] Mental Status Date Assessment Result Facility 06-27-2020 Because of a physica l, mental, or emotional condition, do you have serious difficulty concentrating, remembering, or making decisions No 06/27/2020 1:34 PM Bentley Rodríguez RN No [facility] Clinical Notes 08-21-2020 to 10-08-2024 Telephone Encounter - Elvira Mcintosh LPN - 09/06/2024 11:14 AM EDTTelephone Encounter - Elvira Mcintosh LPN - 09/06/2024 11:14 AM Ronald Perdomo APRN.CNP - 08/07/2024 10:30 AM EDT Note Date & Type Note Facility 10-08-2024 Note HNO ID: [id number] Author: RONALD GARRIDO APRN.CNP Service: ? Author Type: Nurse Practitioner Type: Progress Notes Filed: 10/08/2024 14:55 Note Text: Pulmonary Medicine Patients name: Katrina Henson PCP: Dennis Marcial MD Recording using [employer] software for draft documentation of the visit was discussed with the patient/authorized publications sales representative; all questions welcomed and answered. Patient/authorized publications sales representative agreed to proceed CC: cough HPI: Katrina Serrano is a 68 year old female former [id number] smoker, quitting in 1999 with PMH significant for COPD, nocturnal oxygen need, GERD, AF, CKD, history of lung cancer and radiation fibrosis. 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 Was on Durvalumab for 4 doses but discontinued due to severe colitis. 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 Current inhaled therapy consists of Anoro Ellipta with as needed albuterol. She presents today for persistent cough. She reports a persistent cough since June, following a diagnosis of pneumonia. She was evaluated in early August, at which time the cough was mild and improving. However, the cough has persisted without significant improvement and is described as a sensation in the chest with minimal production of yellowish sputum. She denies wheezing, chest tightness, or worsening dyspnea. She has not experienced fevers, myalgias, or other sick symptoms. Compliant with Anoro. She has not tried an inhaled steroid. She recently completed a course of Doxycycline for skin cancer, which did not affect the cough. She reports possible postnasal drainage but denies significant allergy symptoms. She has not used Mucinex or nasal sprays like Flonase. The cough does not vary with time of day or position. She denies dizziness or lightheadedness. 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 If you have any questions, ask your nurse or doctor. CONTINUE taking these medications albuterol HFA 90 mcg/actuation inhaler Commonly known as: PROVENTIL HFA, VENTOLIN HFA Inhale 2 Puffs as instructed every 4 hours as needed for wheezing/shortness of breath. alendronate 70 mg tablet Commonly known as: FOSAMAX Take 1 tablet by mouth one time a week. In am with glass of water, on a empty stomach, nothing by mouth or lying down for 30 minutes amitriptyline 50 mg tablet Commonly known as: ELAVIL Take 1 tablet by mouth daily at bedtime. ANORO ELLIPTA 62.5-25 mcg/actuation inhaler Generic drug: umeclidinium-vilanterol Inhale 1 Inhalation as instructed once daily. hydrOXYchloroQUINE 200 mg tablet Commonly known as: PLAQUENIL leflunomide 10 mg tablet Commonly known as: ARAVA metoprolol tartrate (short acting) 25 mg tablet Commonly known as: LOPRESSOR Take 0.5 tablets by mouth two times a day. MYRBETRIQ 50 mg Tb24 Generic drug: mirabegron OXYGEN (HOME THERAPY) pantoprazole DR 40 mg tablet Commonly known as: PROTONIX Take 1 tablet by mouth once daily. predniSONE 20 mg tablet Commonly known as: DELTASONE Take 3 tablets by mouth once daily. X3d then 2 po every day, x3d,then 1 po every day x3d, then 1/2 po every day x4d. PROBIOTIC ORAL rOPINIRole 1 mg tablet Commonly known as: REQUIP Take 1 tablet by mouth daily at bedtime. sertraline 100 mg tablet Commonly known as: ZOLOFT Take 1 tablet by mouth once daily. simvastatin 20 mg tablet Commonly known as: ZOCOR Take 1 tablet by mouth daily at bedtime. traMADol 50 mg tablet Commonly known as: ULTRAM Take 1 tablet by mouth every 6 hours as needed for pain for up to 90 days. VITAMIN D3 ORAL XARELTO 20 mg tablet Generic drug: rivaroxaban DATA: I personally reviewed and analyzed all labs, radiographs and available pulmonary function testing PFT: 08/07/2024 Spirometry indicates no obstruction. The reduced FVC could indicate restriction. Decrease in TLC indicates restriction. The diffusing capacity (corrected for hemoglobin) is reduced. CXR: (more content not included)... [facility] 09-06-2024 Telephone encounter Note Last Office Visit: 07-17-2024 Next Scheduled Office Visit: 10-21-2024 Requested Prescriptions Pending Prescriptions Disp Refills traMADol (ULTRAM) 50 mg tablet 90 tablet 0 Sig: Take 1 tablet by mouth every 6 hours as needed for pain for up to 90 days. Elvira Mcintosh LPN September 06, 2024 11:17 AM [facility] 09-06-2024 Miscellaneous Notes Last Office Visit: 07-17-2024 Next Scheduled Office Visit: 10-21-2024 Requested Prescriptions Pending Prescriptions Disp Refills traMADol (ULTRAM) 50 mg tablet 90 tablet 0 Sig: Take 1 tablet by mouth every 6 hours as needed for pain for up to 90 days. Elvira Mcintosh LPN September 06, 2024 11:17 AM documented in this encounter [facility] 08-07-2024 History of Present illness Narrative Images from the original note were not included. Pulmonary Medicine Patients name: Katrina Henson PCP: Dennis Marcial MD CC: follow-up COPD HPI: Katrina Serrano is a 68 year old female former [id number] smoker, quitting in 1999 with PMH significant for COPD, nocturnal oxygen need, GERD, AF, CKD, history of lung cancer and radiation fibrosis. 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 Was on Durvalumab for 4 doses but discontinued due to severe colitis. 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 Current inhaled therapy consists of Anoro Ellipta with as needed albuterol. She presents today for testing and follow-up. [facility] 06/28/[address] suggesting Pneumonia. Was treated by her PCP with Augmentin and Doxycycline with the doxycycline coarse extended at her [facility]. Follow-up chest xray with no new concerns. She was seen by her PCP on 07/17 and required another course of Doxycycline and Prednisone taper for sinus and chest congestion with a productive cough. Finished treatment last week and overall feeling well. Today, patient reports cough, occasionally productive with white sputum. No hemoptysis. Denies wheezing, chest tightness or shortness of breath. No fevers, chills, or night sweats. 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 If you have any questions, ask your nurse or doctor. CONTINUE taking these medications albuterol HFA 90 mcg/actuation inhaler Commonly known as: PROVENTIL HFA, VENTOLIN HFA Inhale 2 Puffs as instructed every 4 hours as needed for wheezing/shortness of breath. alendronate 70 mg tablet Commonly known as: FOSAMAX Take 1 tablet by mouth one time a week. In am with glass of water, on a empty stomach, nothing by mouth or lying down for 30 minutes amitriptyline 50 mg tablet Commonly known as: ELAVIL Take 1 tablet by mouth daily at bedtime. ANORO ELLIPTA 62.5-25 mcg/actuation inhaler Generic drug: umeclidinium-vilanterol Inhale 1 Inhalation as instructed once daily. hydrOXYchloroQUINE 200 mg tablet Commonly known as: PLAQUENIL metoprolol tartrate (short acting) 25 mg tablet Commonly known as: LOPRESSOR Take 0.5 tablets by mouth two times a day. MYRBETRIQ 50 mg Tb24 Generic drug: mirabegron OXYGEN (HOME THERAPY) pantoprazole DR 40 mg tablet Commonly known as: PROTONIX Take 1 tablet by mouth once daily. predniSONE 20 mg tablet Commonly known as: DELTASONE Take 3 tablets by mouth once daily. X3d then 2 po every day, x3d,then 1 po every day x3d, then 1/2 po every day x4d. PROBIOTIC ORAL rOPINIRole 1 mg tablet Commonly known as: REQUIP Take 1 tablet by mouth daily at bedtime. sertraline 100 mg tablet Commonly known as: ZOLOFT Take 1 tablet by mouth once daily. simvastatin 20 mg tablet Commonly known as: ZOCOR Take 1 tablet by mouth daily at bedtime. traMADol 50 mg tablet Commonly known as: ULTRAM Take 1 tablet by mouth every 6 hours as needed for pain for up to 90 days. VITAMIN D3 ORAL XARELTO 20 mg tablet Generic drug: rivaroxaban DATA: I personally reviewed and analyzed all labs, radiographs and available pulmonary function testing PFT: 08/07/202404/2021 Spirometry shows no obstruction.The reduced FVC suggests restriction. Lung volumes indicate restriction The presence of a reduced lung diffusion capacity - that normalizes when measured independent of alveolar volume (kCO) is consistent with a nonparenchymal disorder but does not rule out parenchymal or pulmonary vascular disorder. CXR: Last XR Chest - Impression Only XR CHEST 2V FRONTAL/LAT Exam End: 07/05/2024 11:05 AM (Final result) Impression: IMPRESSION: Stable chest. No developing abnormality ... CT Chest: 06/2024 IMPRESSION: Status post right middle lobectomy. Postradiation changes/fibrosis/pneumonitis again noted in the medial right lung. Interval development of numerous centrilobular nodules in the left lung, presumably representing inflammatory/infectious process. Consider follow-up to document resolution. Stable right paratracheal lymphadenopathy versus fluid collection. Executive Vp: LISA Transcribe Date/Time: Jun 27 2024 8:54A Dictated by : KEYLA SOLIS MD This examination was interpreted and the report reviewed and electronically signed by: KEYLA SOLIS MD on Jun 28 2024 1:54PM EST Results-Findings * * *Final Report* * * DATE OF EXAM: Jun 20 2024 10:09AM [facility] [id number] - CT CHEST WO IVCON / PROCEDURE REASON: Malignant neoplasm of unspecified part of unspecified bronchus or lung (HCC) * * * * Physician Interpretation * * * * EXAMINATION: CHEST CT WITHOUT CONTRAST CLINICAL HISTORY: Neoplasm Technique: Spiral CT acquisition of the chest from the thoracic inlet to the upper abdomen without contrast. MQ: [id number] CT Radiation dose: Integrated Dose-length product (DLP) for this visit = 214 mGy*cm CT Dose Reduction Employed: Automated exposure control(AEC) and iterative recon Comparison: CT chest on 12/18/2023 RESULT: Limitations: None. Lines, tubes, and devices: None. Lung parenchyma and airways: Status post right middle lobectomy. Otherwise the central airways are patent. Postradiation changes including opacities and traction bronchiectasis/bronchiolectasis again noted in the medial right lung. A few parenchymal bands seen in the right lung, presumably representing atelectases/scarring. There are multiple new centrilobular nodules in the left upper lobe/lingula and left lower lobes. A triangular density visualized in the lingula, presumably representing atelectasis. Pleural space: No pleural effusions or pneumothorax. Lower neck, lymph nodes, and mediastinum: There is a focal calcification in the right thyroid lobe. No supraclavicular or axillary lymphadenopathy. Right paratracheal lymphadenopathy versus fluid collection is again demonstrated. No hilar lymphadenopathy on this noncontrast exam. Heart, pericardium, and thoracic vessels: Stable cardiac chambers, thoracic aorta and central pulmonary arteries. There is common origin of the brachiocephalic and left common carotid arteries, a normal anatomic variant. No pericardial effusion/thickening. Bones and soft tissues: The spine shows degenerative changes. T12 vertebral body compression deformities/wedge shaped deformity is noted however unchanged. No destructive bone lesion. Stable chest wall soft tissue. Upper abdomen: Limited study through the upper abdomen demonstrates no interval changes. Left adrenal nodule is again demonstrated. Localizer images: No additional findings. IMMUNIZATIONS Prevnar - xx Pneumovax 23 - xx Influenza - xx COVID-19 - xx RSV- xx Review of Systems Constitutional: Negative for activity change, appetite change, fatigue and unexpected weight change. HENT: Negative for congestion, mouth sores, postnasal drip and sinus pain. Respiratory: Positive for cough. Negative for chest tightness, shortness of breath and wheezing. Cardiovascular: Negative for chest pain, palpitations and leg swelling. Neurological: Negative for dizziness, weakness and light-headedness. BP 108/68 Pulse 68 Resp 18 Wt 89.4 kg (197 lb) SpO2 97% BMI 33.26 kg/m Physical Exam Vitals reviewed. Constitutional: General: She is not in acute distress. Appearance: Normal appearance. She is not ill-appearing. HENT: Head: Normocephalic. Nose: No rhinorrhea. Mouth/Throat: Mouth: Mucous membranes are moist. Pharynx: No oropharyngeal exudate. Cardiovascular: Rate and Rhythm: Normal rate and regular rhythm. Heart sounds: Normal heart sounds. Pulmonary: Effort: Pulmonary effort is normal. No respiratory distress. Breath sounds: No wheezing or rhonchi. Musculoskeletal: Right lower leg: No edema. Left lower leg: No edema. Skin: General: Skin is warm and dry. Capillary Refill: Capillary refill takes less than 2 seconds. Neurological: General: No focal deficit present. Mental Status: She is alert. ASSESSMENT/PLAN: 1. Moderate COPD (chronic obstructive pulmonary disease) (HCC) - ICD9: 496, ICD10: J44.9 (primary diagnosis) - currently with controlled symptoms s/p doxycycline and prednisone for acute bronchitis nearly 3 weeks ago. Feels Anoro is providing good control of COPD symptoms, rarely requires Albuterol. - PFT today without worsening obstruction. - Continue Anoro and PRN Albuterol 2. Nocturnal hypoxemia - ICD9: 327.24, ICD10: G47.34 - continues to benefit and be compliant with supplemental O2 3. 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) - ICD9: 162.4, ICD10: C34.2 - follows with oncology 4. Radiation fibrosis of lung (HCC) - ICD9: 508.1, E926.9, ICD10: J70.1 - stable on 06/2024 CT F/u 6 months Portions of this documentation were copied and pasted from previous office visit notes in order to provide a cohesive continuity of the history. The note has been reviewed and edited and updated as necessary. Ronald Garrido APRN.CNP I spent a total of 18 minutes on the date of the service which included preparing to see the patient, [id number] patient care, completing clinical documentation, performing a medically appropriate examination, and counseling and educating the patient/family/caregiver. documented in this encounter [facility] 08-07-2024 Note HNO ID: [id number] Author: RONALD GARRIDO APRN.CNP Service: ? Author Type: Nurse Practitioner Type: Progress Notes Filed: 08/07/2024 12:32 Note Text: Pulmonary Medicine Patients name: Katrina Henson PCP: Dennis Marcial MD CC: follow-up COPD HPI: Katrina Serrano is a 68 year old female former [id number]-zvou smoker, quitting in 1999 with PMH significant for COPD, nocturnal oxygen need, GERD, AF, CKD, history of lung cancer and radiation fibrosis. 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 Was on Durvalumab for 4 doses but discontinued due to severe colitis. 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 Current inhaled therapy consists of Anoro Ellipta with as needed albuterol. She presents today for testing and follow-up. [facility] 06/28/[address] suggesting Pneumonia. Was treated by her PCP with Augmentin and Doxycycline with the doxycycline coarse extended at her [facility]. Follow-up chest xray with no new concerns. She was seen by her PCP on 07/17 and required another course of Doxycycline and Prednisone taper for sinus and chest congestion with a productive cough. Finished treatment last week and overall feeling well. Today, patient reports cough, occasionally productive with white sputum. No hemoptysis. Denies wheezing, chest tightness or shortness of breath. No fevers, chills, or night sweats. 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 If you have any questions, ask your nurse or doctor. CONTINUE taking these medications albuterol HFA 90 mcg/actuation inhaler Commonly known as: PROVENTIL HFA, VENTOLIN HFA Inhale 2 Puffs as instructed every 4 hours as needed for wheezing/shortness of breath. alendronate 70 mg tablet Commonly known as: FOSAMAX Take 1 tablet by mouth one time a week. In am with glass of water, on a empty stomach, nothing by mouth or lying down for 30 minutes amitriptyline 50 mg tablet Commonly known as: ELAVIL Take 1 tablet by mouth daily at bedtime. ANORO ELLIPTA 62.5-25 mcg/actuation inhaler Generic drug: umeclidinium-vilanterol Inhale 1 Inhalation as instructed once daily. hydrOXYchloroQUINE 200 mg tablet Commonly known as: PLAQUENIL metoprolol tartrate (short acting) 25 mg tablet Commonly known as: LOPRESSOR Take 0.5 tablets by mouth two times a day. MYRBETRIQ 50 mg Tb24 Generic drug: mirabegron OXYGEN (HOME THERAPY) pantoprazole DR 40 mg tablet Commonly known as: PROTONIX Take 1 tablet by mouth once daily. predniSONE 20 mg tablet Commonly known as: DELTASONE Take 3 tablets by mouth once daily. X3d then 2 po every day, x3d,then 1 po every day x3d, then 1/2 po every day x4d. PROBIOTIC ORAL rOPINIRole 1 mg tablet Commonly known as: REQUIP Take 1 tablet by mouth daily at bedtime. sertraline 100 mg tablet Commonly known as: ZOLOFT Take 1 tablet by mouth once daily. simvastatin 20 mg tablet Commonly known as: ZOCOR Take 1 tablet by mouth daily at bedtime. traMADol 50 mg tablet Commonly known as: ULTRAM Take 1 tablet by mouth every 6 hours as needed for pain for up to 90 days. VITAMIN D3 ORAL XARELTO 20 mg tablet Generic drug: rivaroxaban DATA: I personally reviewed and analyzed all labs, radiographs and available pulmonary function testing PFT: 08/07/202404/2021 Spirometry shows no obstruction.The reduced FVC suggests restriction. Lung volumes indicate restriction The presence of a reduced lung diffusion capacity - that normalizes when measured independent of alveolar volume (kCO) is consistent with a nonparenchymal disorder but does not rule out parenchymal or pulmonary vascular disorder. CXR: Last XR Chest - Impression Only XR CHEST 2V FRONTAL/LAT Exam End: 07/05/2024 11:05 AM (Final result) Impression: IMPRESSION: Stable chest. No developing abnormality ... CT Chest: 06/2024 IMPRESSION: Status post right middle lobectomy. Postradiation changes/fibrosis/pneumonitis again noted in the medial right lung. Interval deve (more content not included)... [facility] 07-17-2024 Note HNO ID: [id number] Author: DENNIS MARCIAL MD Service: ? Author Type: Physician Type: Progress Notes Filed: 07/17/2024 16:51 Note Text: Subjective Katrina Serrano is a 68 year old female. Patient is in office with complaint of sinus congestion and productive cough. Patient states that symptoms started about 3 days ago. Patient is experiencing cold chills and sweats as well. Review of Systems Constitutional: Negative. HENT: Negative. Eyes: Negative. Respiratory: Negative. Cardiovascular: Negative. Gastrointestinal: Negative. Endocrine: Negative. Genitourinary: Negative. Musculoskeletal: Negative. Skin: Negative. Allergic/Immunologic: Negative. Neurological: Negative. Hematological: Negative. Psychiatric/Behavioral: Negative. PAST SURGICAL HISTORY Procedure Laterality Date BACK SURGERY HX x 3 COLONOSCOPY FLX DX W/COLLJ SPEC WHEN PFRMD 02/04/2021 COLSC FLX W/RMVL OF TUMOR POLYP LESION SNARE TQ 08/07/2008 EGD TRANSORAL BIOPSY SINGLE/MULTIPLE 06/16/2010 EGD W/O [facility] SPEC VARICIES INJ 11/17/2021 EXC NEUROMA HAND/FOOT XCP DIGITAL NERVE HERNIA REPAIR HX NEUROPLASTY AND/TRANSPOS MEDIAN NRV CARPAL TUNNE Bilateral Carpal tunnel decomp PAST SURGICAL HISTORY OF 03/13/2020 MEDIASTINOSCOPY W/LYMPH NODE BIOPSY REPR DURAL/CSF LEAK W LAMINECTOMY RMVL LUNG OTHER THAN PNEUMONECTOMY 1 LOBE LOBECT Right 06/22/2020 Thoracotomy, right middle lobectomy, mediastinal lymph node dissection for lung cancer SIGMOIDOSCOPY FLX DX W/COLLJ SPEC BR/WA IF PFRMD 1998 Sigmoidoscopy TONSILLECTOMY PRIMARY/SECONDARY Tonsillectomy 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 Microscopic colitis Other malaise and fatigue Paroxysmal atrial fibrillation (HCC) Shortness of breath Unspecified constipation FAMILY HISTORY Problem Relation Age of Onset other (throat cancer) Mother Heart Father Skin Cancer Brother COPD Brother Skin Cancer Brother Diabetes Son Colon Cancer No Family History Social History Tobacco Use Smoking status: Former Current packs/day: 0.00 Average packs/day: 1 pack/day for 30.0 years (30.0 ttl pk-yrs) Types: Cigarettes Start date: 03/24/1970 Quit date: 03/24/2000 Years since quittin.3 Smokeless tobacco: Never Vaping Use Vaping status: Never Used Substance Use Topics Alcohol use: No Drug use: Never ALLERGIES No Known Allergies MEDICATIONS: traMADol (ULTRAM) 50 mg tablet Take 1 tablet by mouth every 6 hours as needed for pain for up to 90 days. sertraline (ZOLOFT) 100 mg tablet Take 1 tablet by mouth once daily. rOPINIRole (REQUIP) 1 mg tablet Take 1 tablet by mouth daily at bedtime. MYRBETRIQ 50 mg Tb24 Take 50 mg by mouth once daily. alendronate (FOSAMAX) 70 mg tablet Take 1 tablet by mouth one time a week. In am with glass of water, on a empty stomach, nothing by mouth or lying down for 30 minutes metoprolol tartrate, short acting, (LOPRESSOR) 25 mg tablet Take 0.5 tablets by mouth two times a day. pantoprazole DR (PROTONIX) 40 mg tablet Take 1 tablet by mouth once daily. umeclidinium-vilanterol (ANORO ELLIPTA) 62.5-25 mcg/actuation inhaler Inhale 1 Inhalation as instructed once daily. amitriptyline (ELAVIL) 50 mg tablet Take 1 tablet by mouth daily at bedtime. XARELTO 20 mg tablet Take 1 tablet by mouth once daily. simvastatin (ZOCOR) 20 mg tablet Take 1 tablet by mouth daily at bedtime. OXYGEN, HOME THERAPY, Inhale 3 L/min as instructed as directed. hydrOXYchloroQUINE (PLAQUENIL) 200 mg tablet Take 200 mg by mouth twice daily. albuterol HFA (PROVENTIL HFA, VENTOLIN HFA) 90 mcg/actuation inhaler Inhale 2 Puffs as instructed every 4 hours as needed for wheezing/shortness of breath. Lactobacillus acidophilus (PROBIOTIC ORAL) Take 1 tablet by mouth once daily. cholecalciferol, vitamin D3, (VITAMIN D3 ORAL) Take 1 tablet by mouth once daily. predniSONE (DELTASONE) 20 mg tablet Take 3 tablets by mouth once daily. X3d then 2 po every day, x3d,then 1 po every day x3d, then 1/2 po every day x4d. doxycycline hyclate (VIBRAMYCIN) 100 mg capsule Take 1 capsule by mouth two times a day for 10 days. Allergies, past surgical history, family history and past medical history were reviewed per this encounter. Medications were reviewed and verified. 06/28/2024 07/17/2024 INTAKE PAIN ASSESSMENT Are you having pain associated with your visit today? No No If pain assessment is 0, no action needed. If pain asses (more content not included)... [facility] 07-17-2024 History of Present illness Narrative Subjective Katrina Serrano is a 68 year old female. Patient is in office with complaint of sinus congestion and productive cough. Patient states that symptoms started about 3 days ago. Patient is experiencing cold chills and sweats as well. Review of Systems Constitutional: Negative. HENT: Negative. Eyes: Negative. Respiratory: Negative. Cardiovascular: Negative. Gastrointestinal: Negative. Endocrine: Negative. Genitourinary: Negative. Musculoskeletal: Negative. Skin: Negative. Allergic/Immunologic: Negative. Neurological: Negative. Hematological: Negative. Psychiatric/Behavioral: Negative. PAST SURGICAL HISTORY Procedure Laterality Date BACK SURGERY HX x 3 COLONOSCOPY FLX DX W/COLLJ SPEC WHEN PFRMD 02/04/2021 COLSC FLX W/RMVL OF TUMOR POLYP LESION SNARE TQ 08/07/2008 EGD TRANSORAL BIOPSY SINGLE/MULTIPLE 06/16/2010 EGD W/O [facility] SPEC VARICIES INJ 11/17/2021 EXC NEUROMA HAND/FOOT XCP DIGITAL NERVE HERNIA REPAIR HX NEUROPLASTY &/TRANSPOS MEDIAN NRV CARPAL TUNNE Bilateral Carpal tunnel decomp PAST SURGICAL HISTORY OF 03/13/2020 MEDIASTINOSCOPY W/LYMPH NODE BIOPSY REPR DURAL/CSF LEAK W LAMINECTOMY RMVL LUNG OTHER THAN PNEUMONECTOMY 1 LOBE LOBECT Right 06/22/2020 Thoracotomy, right middle lobectomy, mediastinal lymph node dissection for lung cancer SIGMOIDOSCOPY FLX DX W/COLLJ SPEC BR/WA IF PFRMD 1998 Sigmoidoscopy TONSILLECTOMY PRIMARY/SECONDARY <AGE 12 Tonsillectomy 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 Microscopic colitis Other malaise and fatigue Paroxysmal atrial fibrillation (HCC) Shortness of breath Unspecified constipation FAMILY HISTORY Problem Relation Age of Onset other (throat cancer) Mother Heart Father Skin Cancer Brother COPD Brother Skin Cancer Brother Diabetes Son Colon Cancer No Family History Social History Tobacco Use Smoking status: Former Current packs/day: 0.00 Average packs/day: 1 pack/day for 30.0 years (30.0 ttl pk-yrs) Types: Cigarettes Start date: 03/24/1970 Quit date: 03/24/2000 Years since quittin.3 Smokeless tobacco: Never Vaping Use Vaping status: Never Used Substance Use Topics Alcohol use: No Drug use: Never ALLERGIES No Known Allergies MEDICATIONS: traMADol (ULTRAM) 50 mg tablet Take 1 tablet by mouth every 6 hours as needed for pain for up to 90 days. sertraline (ZOLOFT) 100 mg tablet Take 1 tablet by mouth once daily. rOPINIRole (REQUIP) 1 mg tablet Take 1 tablet by mouth daily at bedtime. MYRBETRIQ 50 mg Tb24 Take 50 mg by mouth once daily. alendronate (FOSAMAX) 70 mg tablet Take 1 tablet by mouth one time a week. In am with glass of water, on a empty stomach, nothing by mouth or lying down for 30 minutes metoprolol tartrate, short acting, (LOPRESSOR) 25 mg tablet Take 0.5 tablets by mouth two times a day. pantoprazole DR (PROTONIX) 40 mg tablet Take 1 tablet by mouth once daily. umeclidinium-vilanterol (ANORO ELLIPTA) 62.5-25 mcg/actuation inhaler Inhale 1 Inhalation as instructed once daily. amitriptyline (ELAVIL) 50 mg tablet Take 1 tablet by mouth daily at bedtime. XARELTO 20 mg tablet Take 1 tablet by mouth once daily. simvastatin (ZOCOR) 20 mg tablet Take 1 tablet by mouth daily at bedtime. OXYGEN, HOME THERAPY, Inhale 3 L/min as instructed as directed. hydrOXYchloroQUINE (PLAQUENIL) 200 mg tablet Take 200 mg by mouth twice daily. albuterol HFA (PROVENTIL HFA, VENTOLIN HFA) 90 mcg/actuation inhaler Inhale 2 Puffs as instructed every 4 hours as needed for wheezing/shortness of breath. Lactobacillus acidophilus (PROBIOTIC ORAL) Take 1 tablet by mouth once daily. cholecalciferol, vitamin D3, (VITAMIN D3 ORAL) Take 1 tablet by mouth once daily. predniSONE (DELTASONE) 20 mg tablet Take 3 tablets by mouth once daily. X3d then 2 po every day, x3d,then 1 po every day x3d, then 1/2 po every day x4d. doxycycline hyclate (VIBRAMYCIN) 100 mg capsule Take 1 capsule by mouth two times a day for 10 days. Allergies, past surgical history, family history and past medical history were reviewed per this encounter. Medications were reviewed and verified. 06/28/2024 07/17/2024 INTAKE PAIN ASSESSMENT Are you having pain associated with your visit today? No No If pain assessment is 0, no action needed. If pain assessment is positive, please see assessment and plain. Objective BP 110/84 (BP Site: Left Arm, BP Position: Sitting, BP Cuff Size: Regular Adult) Pulse 66 Temp 36.4 C (97.6 F) (Temporal) Resp 18 Ht 167.6 cm (5' 6) Wt 88 kg (194 lb) SpO2 97% BMI 31.31 kg/m Physical Exam Vitals reviewed. Constitutional: Appearance: Normal appearance. HENT: Head: Normocephalic and atraumatic. Nose: Nose normal. Eyes: Extraocular Movements: Extraocular movements intact. Pupils: Pupils are equal, round, and reactive to light. Cardiovascular: Rate and Rhythm: Normal rate and regular rhythm. Pulmonary: Effort: Pulmonary effort is normal. Breath sounds: Normal breath sounds. Abdominal: General: Bowel sounds are normal. Palpations: Abdomen is soft. Musculoskeletal: General: Normal range of motion. Cervical back: Normal range of motion and neck supple. Skin: General: Skin is warm and dry. Capillary Refill: Capillary refill takes less than 2 seconds. Neurological: General: No focal deficit present. Mental Status: She is alert and oriented to person, place, and time. Mental status is at baseline. Psychiatric: Mood and Affect: Mood normal. Behavior: Behavior normal. Procedures Assessment and Plan Encounter Diagnosis ICD-10-CM 1. Bronchitis J40 Treat with doxycycline and prednisone taper. Continue inhalers. To ER if symptoms worsen. Rest. Push fluids. Dennis Marcial MD July 17, 2024 07/17/2024 Patient is in office with complaint of sinus congestion and productive cough. Patient states that symptoms started about 3 days ago. Patient is experiencing cold chills and sweats as well. No refills needed Elvira Mcintosh LPN July 17, 2024 3:26 PM documented in this encounter [facility] 07-17-2024 Note HNO ID: [id number] Author: ELVIRA MCINTOSH LPN Service: ? Author Type: LICENSED NURSE Type: Progress Notes Filed: 07/17/2024 16:51 Note Text: Patient is in office with complaint of sinus congestion and productive cough. Patient states that symptoms started about 3 days ago. Patient is experiencing cold chills and sweats as well. No refills needed Elvira Mcintosh LPN July 17, 2024 3:26 PM [facility] 07-10-2024 Note HNO ID: [id number] Author: KAEL NUNEZ APRN.[employer] Service: ? Author Type: Nurse Practitioner Type: Progress Notes Filed: 07/10/2024 17:40 Note Text: Patient triaged at [facility]. Here today with new bilat lower leg swelling. Denies cp/sob/leg pain. I will refer to pcp, will make appointment jonathan. Urgent f/u for worsening or severe s/s. [facility] 07-10-2024 History of Present illness Narrative Patient triaged at [facility]. Here today with new bilat lower leg swelling. Denies cp/sob/leg pain. I will refer to pcp, will make appointment jonathan. Urgent f/u for worsening or severe s/s. documented in this encounter [facility] 07-08-2024 Telephone encounter Note Message left for patient to phone office at earliest convenience in regards to results. Stephane Ibrahim LPN July 08, 2024 10:17 AM [facility] 07-08-2024 Telephone encounter Note ----- Message from Dennis Marcial MD sent at 07/07/2024 4:06 PM EST ----- Stable chest. No new abnormality [facility] 07-08-2024 Miscellaneous Notes Message left for patient to phone office at earliest convenience in regards to results. Stephane Ibrahim LPN July 08, 2024 10:17 AM ----- Message from Dennis Marcial MD sent at 07/07/2024 4:06 PM EST ----- Stable chest. No new abnormality documented in this encounter [facility] 07-05-2024 History of Present illness Narrative Radiology Service Progress Note PATIENT NAME: Katrina Serrano DATE OF SERVICE: July 05, 2024 TIME: 10:58 AM PATIENT IDENTITY VERIFICATION COMPLETED USING TWO (2) IDENTIFIERS: Name and Date of confirmed by patient verbally. FALL SCREENING: Has the patient had 2 falls in the last year or 1 fall with injury or currently using an Ambulatory Assistive Device (Walker, Cane, Wheelchair, Crutches, etc.)? No PATIENT GENDER DATA: Assigned female at . status: : No status: NO. PATIENT RELEVANT IMPLANT DATA REVIEWED: Yes PATIENT PRESENTS WITH AN IMPLANTABLE OR ATTACHED PLANT SCIENCES PROFESSOR: No RADIOLOGY DEPARTMENT: General X-ray: Exam(s) Completed: Chest X-Ray PERIPHERAL IV DATA: Not applicable SIGNED BY: RT Stef(R) July 05, 2024 10:58 AM documented in this encounter [facility] 07-05-2024 Note HNO ID: [id number] Author: SONDRA RICHARDS RT(R) Service: ? Author Type: Strip Polisher Type: Progress Notes Filed: 07/05/2024 11:05 Note Text: Radiology Service Progress Note PATIENT NAME: Katrina Serrano DATE OF SERVICE: July 05, 2024 TIME: 10:58 AM PATIENT IDENTITY VERIFICATION COMPLETED USING TWO (2) IDENTIFIERS: Name and Date of confirmed by patient verbally. FALL SCREENING: Has the patient had 2 falls in the last year or 1 fall with injury or currently using an Ambulatory Assistive Device (Walker, Cane, Wheelchair, Crutches, etc.)? No PATIENT GENDER DATA: Assigned female at . status: : No status: NO. PATIENT RELEVANT IMPLANT DATA REVIEWED: Yes PATIENT PRESENTS WITH AN IMPLANTABLE OR ATTACHED PLANT SCIENCES PROFESSOR: No RADIOLOGY DEPARTMENT: General X-ray: Exam(s) Completed: Chest X-Ray PERIPHERAL IV DATA: Not applicable SIGNED BY: RT Stef(R) July 05, 2024 10:58 AM [facility] 06-29-2024 Note HNO ID: [id number] Author: DENNIS MARCIAL MD Service: ? Author Type: Physician Type: Progress Notes Filed: 06/29/2024 14:43 Note Text: Subjective Katrina Serrano is a 68 year old female. Patient is in office for Urgent Care follow up for pneumonia. Patient was evaluated and treated at Urgent Care on 06-21-2024. ASSESSMENT/PLAN: 1. Acute cough - ICD9: 786.2, ICD10: R05.1 (primary diagnosis) 2. Centrilobular emphysema (HCC) - ICD9: 492.8, ICD10: J43.2 3. Community acquired pneumonia of left lung, unspecified part of lung - ICD9: 486, ICD10: J18.9 - XR CHEST 2V FRONTAL/LAT IMPRESSION: Patchy airspace opacities of the left lung better appreciated on same-day CT and compatible with an infectious/inflammatory process. Stable posttreatment volume loss of the right lung. - IPRATROPIUM 0.5 MG-ALBUTEROL 3 MG (2.5 MG BASE)/3 ML NEBULIZATION SOLN - INFLUENZA AANDB MOLECULAR (POC) - negative. - COVID AND INFLUENZA A/B AND RSV PCR, ROUTINE - probably beyond the therapeutic window for antiviral. - suspect viral URI, differential includes COVID-19. Dual antibiotic therapy with doxycycline and augmentin for comorbidities. Patient states she continues to feel tired. Review of Systems Constitutional: Negative. HENT: Negative. Eyes: Negative. Respiratory: Negative. Cardiovascular: Negative. Gastrointestinal: Negative. Endocrine: Negative. Genitourinary: Negative. Musculoskeletal: Negative. Skin: Negative. Allergic/Immunologic: Negative. Neurological: Negative. Hematological: Negative. Psychiatric/Behavioral: Negative. PAST SURGICAL HISTORY Procedure Laterality Date BACK SURGERY HX x 3 COLONOSCOPY FLX DX W/COLLJ SPEC WHEN PFRMD 02/04/2021 COLSC FLX W/RMVL OF TUMOR POLYP LESION SNARE TQ 08/07/2008 EGD TRANSORAL BIOPSY SINGLE/MULTIPLE 06/16/2010 EGD W/O [facility] SPEC VARICIES INJ 11/17/2021 EXC NEUROMA HAND/FOOT XCP DIGITAL NERVE HERNIA REPAIR HX NEUROPLASTY AND/TRANSPOS MEDIAN NRV CARPAL TUNNE Bilateral Carpal tunnel decomp PAST SURGICAL HISTORY OF 03/13/2020 MEDIASTINOSCOPY W/LYMPH NODE BIOPSY REPR DURAL/CSF LEAK W LAMINECTOMY RMVL LUNG OTHER THAN PNEUMONECTOMY 1 LOBE LOBECT Right 06/22/2020 Thoracotomy, right middle lobectomy, mediastinal lymph node dissection for lung cancer SIGMOIDOSCOPY FLX DX W/COLLJ SPEC BR/WA IF PFRMD 1998 Sigmoidoscopy TONSILLECTOMY PRIMARY/SECONDARY Tonsillectomy 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 Microscopic colitis Other malaise and fatigue Paroxysmal atrial fibrillation (HCC) Shortness of breath Unspecified constipation FAMILY HISTORY Problem Relation Age of Onset other (throat cancer) Mother Heart Father Skin Cancer Brother COPD Brother Skin Cancer Brother Diabetes Son Colon Cancer No Family History Social History Tobacco Use Smoking status: Former Current packs/day: 0.00 Average packs/day: 1 pack/day for 30.0 years (30.0 ttl pk-yrs) Types: Cigarettes Start date: 03/24/1970 Quit date: 03/24/2000 Years since quittin.2 Smokeless tobacco: Never Vaping Use Vaping status: Never Used Substance Use Topics Alcohol use: No Drug use: Never ALLERGIES No Known Allergies MEDICATIONS: traMADol (ULTRAM) 50 mg tablet Take 1 tablet by mouth every 6 hours as needed for pain for up to 90 days. sertraline (ZOLOFT) 100 mg tablet Take 1 tablet by mouth once daily. rOPINIRole (REQUIP) 1 mg tablet Take 1 tablet by mouth daily at bedtime. MYRBETRIQ 50 mg Tb24 Take 50 mg by mouth once daily. alendronate (FOSAMAX) 70 mg tablet Take 1 tablet by mouth one time a week. In am with glass of water, on a empty stomach, nothing by mouth or lying down for 30 minutes metoprolol tartrate, short acting, (LOPRESSOR) 25 mg tablet Take 0.5 tablets by mouth two times a day. pantoprazole DR (PROTONIX) 40 mg tablet Take 1 tablet by mouth once daily. umeclidinium-vilanterol (ANORO ELLIPTA) 62.5-25 mcg/actuation inhaler Inhale 1 Inhalation as instructed once daily. amitriptyline (ELAVIL) 50 mg tablet Take 1 tablet by mouth daily at bedtime. XARELTO 20 mg tablet Take 1 tablet by mouth once daily. simvastatin (ZOCOR) 20 mg tablet Take 1 tablet by mouth daily at bedtime. OXYGEN, HOME THERAPY, Inhale 3 L/min as instructed as directed. hydrOXYchloroQUINE (PLAQUENIL) 200 mg tablet Take 200 mg by mouth twice daily. albuterol HFA (PROVENTIL HFA, VENTOLIN HFA) 90 mcg/actuation inhaler Inhale 2 Puffs a (more content not included)... [facility] 06-29-2024 History of Present illness Narrative Sherry Serrano is a 68 year old female. Patient is in office for Urgent Care follow up for pneumonia. Patient was evaluated and treated at Urgent Care on 06-21-2024. ASSESSMENT/PLAN: 1. Acute cough - ICD9: 786.2, ICD10: R05.1 (primary diagnosis) 2. Centrilobular emphysema (HCC) - ICD9: 492.8, ICD10: J43.2 3. Community acquired pneumonia of left lung, unspecified part of lung - ICD9: 486, ICD10: J18.9 - XR CHEST 2V FRONTAL/LAT IMPRESSION: Patchy airspace opacities of the left lung better appreciated on same-day CT and compatible with an infectious/inflammatory process. Stable posttreatment volume loss of the right lung. - IPRATROPIUM 0.5 MG-ALBUTEROL 3 MG (2.5 MG BASE)/3 ML NEBULIZATION SOLN - INFLUENZA A&B MOLECULAR (POC) - negative. - COVID & INFLUENZA A/B & RSV PCR, ROUTINE - probably beyond the therapeutic window for antiviral. - suspect viral URI, differential includes COVID-19. Dual antibiotic therapy with doxycycline and augmentin for comorbidities. Patient states she continues to feel tired. Review of Systems Constitutional: Negative. HENT: Negative. Eyes: Negative. Respiratory: Negative. Cardiovascular: Negative. Gastrointestinal: Negative. Endocrine: Negative. Genitourinary: Negative. Musculoskeletal: Negative. Skin: Negative. Allergic/Immunologic: Negative. Neurological: Negative. Hematological: Negative. Psychiatric/Behavioral: Negative. PAST SURGICAL HISTORY Procedure Laterality Date BACK SURGERY HX x 3 COLONOSCOPY FLX DX W/COLLJ SPEC WHEN PFRMD 02/04/2021 COLSC FLX W/RMVL OF TUMOR POLYP LESION SNARE TQ 08/07/2008 EGD TRANSORAL BIOPSY SINGLE/MULTIPLE 06/16/2010 EGD W/O [facility] SPEC VARICIES INJ 11/17/2021 EXC NEUROMA HAND/FOOT XCP DIGITAL NERVE HERNIA REPAIR HX NEUROPLASTY &/TRANSPOS MEDIAN NRV CARPAL TUNNE Bilateral Carpal tunnel decomp PAST SURGICAL HISTORY OF 03/13/2020 MEDIASTINOSCOPY W/LYMPH NODE BIOPSY REPR DURAL/CSF LEAK W LAMINECTOMY RMVL LUNG OTHER THAN PNEUMONECTOMY 1 LOBE LOBECT Right 06/22/2020 Thoracotomy, right middle lobectomy, mediastinal lymph node dissection for lung cancer SIGMOIDOSCOPY FLX DX W/COLLJ SPEC BR/WA IF PFRMD 1998 Sigmoidoscopy TONSILLECTOMY PRIMARY/SECONDARY <AGE 12 Tonsillectomy 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 Microscopic colitis Other malaise and fatigue Paroxysmal atrial fibrillation (HCC) Shortness of breath Unspecified constipation FAMILY HISTORY Problem Relation Age of Onset other (throat cancer) Mother Heart Father Skin Cancer Brother COPD Brother Skin Cancer Brother Diabetes Son Colon Cancer No Family History Social History Tobacco Use Smoking status: Former Current packs/day: 0.00 Average packs/day: 1 pack/day for 30.0 years (30.0 ttl pk-yrs) Types: Cigarettes Start date: 03/24/1970 Quit date: 03/24/2000 Years since quittin.2 Smokeless tobacco: Never Vaping Use Vaping status: Never Used Substance Use Topics Alcohol use: No Drug use: Never ALLERGIES No Known Allergies MEDICATIONS: traMADol (ULTRAM) 50 mg tablet Take 1 tablet by mouth every 6 hours as needed for pain for up to 90 days. sertraline (ZOLOFT) 100 mg tablet Take 1 tablet by mouth once daily. rOPINIRole (REQUIP) 1 mg tablet Take 1 tablet by mouth daily at bedtime. MYRBETRIQ 50 mg Tb24 Take 50 mg by mouth once daily. alendronate (FOSAMAX) 70 mg tablet Take 1 tablet by mouth one time a week. In am with glass of water, on a empty stomach, nothing by mouth or lying down for 30 minutes metoprolol tartrate, short acting, (LOPRESSOR) 25 mg tablet Take 0.5 tablets by mouth two times a day. pantoprazole DR (PROTONIX) 40 mg tablet Take 1 tablet by mouth once daily. umeclidinium-vilanterol (ANORO ELLIPTA) 62.5-25 mcg/actuation inhaler Inhale 1 Inhalation as instructed once daily. amitriptyline (ELAVIL) 50 mg tablet Take 1 tablet by mouth daily at bedtime. XARELTO 20 mg tablet Take 1 tablet by mouth once daily. simvastatin (ZOCOR) 20 mg tablet Take 1 tablet by mouth daily at bedtime. OXYGEN, HOME THERAPY, Inhale 3 L/min as instructed as directed. hydrOXYchloroQUINE (PLAQUENIL) 200 mg tablet Take 200 mg by mouth twice daily. albuterol HFA (PROVENTIL HFA, VENTOLIN HFA) 90 mcg/actuation inhaler Inhale 2 Puffs as instructed every 4 hours as needed for wheezing/shortness of breath. Lactobacillus acidophilus (PROBIOTIC ORAL) Take 1 tablet by mouth once daily. cholecalciferol, vitamin D3, (VITAMIN D3 ORAL) Take 1 tablet by mouth once daily. doxycycline hyclate (VIBRAMYCIN) 100 mg capsule Take 1 capsule by mouth two times a day for 5 days. Allergies, past surgical history, family history and past medical history were reviewed per this encounter. Medications were reviewed and verified. 06/27/2024 06/28/2024 INTAKE PAIN ASSESSMENT Are you having pain associated with your visit today? No No If pain assessment is 0, no action needed. If pain assessment is positive, please see assessment and plain. Objective BP 122/82 (BP Site: Left Arm, BP Position: Sitting, BP Cuff Size: Regular Adult) Pulse 70 Temp 36.1 C (96.9 F) (Temporal) Resp 18 Ht 167.6 cm (5' 6) Wt 89.4 kg (197 lb) SpO2 95% BMI 31.80 kg/m Physical Exam Vitals reviewed. Constitutional: Appearance: Normal appearance. HENT: Head: Normocephalic and atraumatic. Nose: Nose normal. Eyes: Extraocular Movements: Extraocular movements intact. Pupils: Pupils are equal, round, and reactive to light. Cardiovascular: Rate and Rhythm: Normal rate and regular rhythm. Pulmonary: Effort: Pulmonary effort is normal. Breath sounds: Normal breath sounds. Abdominal: General: Bowel sounds are normal. Palpations: Abdomen is soft. Musculoskeletal: General: Normal range of motion. Cervical back: Normal range of motion and neck supple. Skin: General: Skin is warm and dry. Capillary Refill: Capillary refill takes less than 2 seconds. Neurological: General: No focal deficit present. Mental Status: She is alert and oriented to person, place, and time. Mental status is at baseline. Psychiatric: Mood and Affect: Mood normal. Behavior: Behavior normal. Procedures Assessment and Plan Encounter Diagnosis ICD-10-CM 1. Bacterial pneumonia J15.9 XR CHEST 2V FRONTAL/LAT She was only treated for 5 days with doxycycline. She is having some continued symptoms. Treat for an additional 5 days with doxycycline. Repeat chest x-ray and 2 weeks. Follow-up as needed. She may continue [id number] cold medicines Dennis Marcial MD June 29, 2024 06/26/2024 Patient is in office for Urgent Care follow up for pneumonia. Patient was evaluated and treated at Urgent Care on 06-21-2024. ASSESSMENT/PLAN: 1. Acute cough - ICD9: 786.2, ICD10: R05.1 (primary diagnosis) 2. Centrilobular emphysema (HCC) - ICD9: 492.8, ICD10: J43.2 3. Community acquired pneumonia of left lung, unspecified part of lung - ICD9: 486, ICD10: J18.9 - XR CHEST 2V FRONTAL/LAT IMPRESSION: Patchy airspace opacities of the left lung better appreciated on same-day CT and compatible with an infectious/inflammatory process. Stable posttreatment volume loss of the right lung. - IPRATROPIUM 0.5 MG-ALBUTEROL 3 MG (2.5 MG BASE)/3 ML NEBULIZATION SOLN - INFLUENZA A&B MOLECULAR (POC) - negative. - COVID & INFLUENZA A/B & RSV PCR, ROUTINE - probably beyond the therapeutic window for antiviral. - suspect viral URI, differential includes COVID-19. Dual antibiotic therapy with doxycycline and augmentin for comorbidities. Patient states she continues to feel tired. No refills needed Elvira Mcintosh LPN June 26, 2024 4:03 PM documented in this encounter [facility] 06-28-2024 Instructions Ronald Garrido APRN.AMAIRANI - 06/28/2024 10:59 AM EST Continue Anoro and Albuterol as needed. Finish course of Doxycycline prescribed by Dr. Marcial. Agree with chest xray later next week to make sure the Pneumonia has resolved. If you notice symptoms start to worsen after coming off the antibiotics, please reach out to either Dr Marcial or myself. Plan for lung function testing and follow-up in 4-6 weeks. Make sure your symptoms have resolved before undergoing lung function testing. Follow-up with your kidney trimmer in regards to worsening shortness of breath as well. documented in this encounter [facility] 06-28-2024 History of Present illness Narrative Images from the original note were not included. Pulmonary Medicine Patients name: Katrina Henson PCP: Dennis Marcial MD CC: follow-up HPI: Katrina Serrano is a 68 year old female former [id number] smoker, quitting in 1999 with PMH significant for COPD, nocturnal oxygen need, GERD, AF, CKD, history of lung cancer and radiation fibrosis. 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 Was on Durvalumab for 4 doses but discontinued due to severe colitis. 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 Current inhaled therapy consists of Anoro Ellipta with as needed albuterol. She presents today for follow-up. [facility] 12/2023. Was treated for acute bronchitis with persistent productive cough. Overall has felt worsening exertional dyspnea since her last visit which interferes with her daily tasks. Also has hx of Afib and sees [facility]. Does not recall when she was last seen or when her last echo was. She was seen by [facility] 06/20 with head cold symptoms x5 days. Worsened with cough and fever. FLU/COVID/RSV negative. Chest xray with patchy airspace opacities in the left lung. Subsequently had chest CT scheduled that day which did suggest Pneumonia. Treated with Augmentin and doxycycline. Had follow-up with her PCP on 06/26 and given additional course of Doxycycline with plan for repeat chest xray later next week. Today, patient reports fatigue. Occasional cough with white sputum (was green at the start). No wheezing. No dyspnea at rest. No current fevers or chills. Denies nocturnal symptoms. Albuterol use is rare. DME: [facility] 3L nocturnal O2 Modified Medical [employer] Solomon Dyspnea Scale (MMRC) I stop for breath after walking about 100 yards or after a few minutes on level ground 3 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 If you have any questions, ask your nurse or doctor. CONTINUE taking these medications albuterol HFA 90 mcg/actuation inhaler Commonly known as: PROVENTIL HFA, VENTOLIN HFA Inhale 2 Puffs as instructed every 4 hours as needed for wheezing/shortness of breath. alendronate 70 mg tablet Commonly known as: FOSAMAX Take 1 tablet by mouth one time a week. In am with glass of water, on a empty stomach, nothing by mouth or lying down for 30 minutes amitriptyline 50 mg tablet Commonly known as: ELAVIL Take 1 tablet by mouth daily at bedtime. ANORO ELLIPTA 62.5-25 mcg/actuation inhaler Generic drug: umeclidinium-vilanterol Inhale 1 Inhalation as instructed once daily. hydrOXYchloroQUINE 200 mg tablet Commonly known as: PLAQUENIL IRON ORAL metoprolol tartrate (short acting) 25 mg tablet Commonly known as: LOPRESSOR Take 0.5 tablets by mouth two times a day. MYRBETRIQ 50 mg Tb24 Generic drug: mirabegron OS-TESSY 500 + D3 ORAL OXYGEN (HOME THERAPY) pantoprazole DR 40 mg tablet Commonly known as: PROTONIX Take 1 tablet by mouth once daily. PROBIOTIC ORAL rOPINIRole 1 mg tablet Commonly known as: REQUIP Take 1 tablet by mouth daily at bedtime. sertraline 100 mg tablet Commonly known as: ZOLOFT Take 1 tablet by mouth once daily. simvastatin 20 mg tablet Commonly known as: ZOCOR Take 1 tablet by mouth daily at bedtime. traMADol 50 mg tablet Commonly known as: ULTRAM Take 1 tablet by mouth every 6 hours as needed for pain for up to 90 days. VITAMIN D3 ORAL XARELTO 20 mg tablet Generic drug: rivaroxaban DATA: I personally reviewed and analyzed all labs, radiographs and available pulmonary function testing PFT: 04/2021 Spirometry shows no obstruction.The reduced FVC suggests restriction. Lung volumes indicate restriction The presence of a reduced lung diffusion capacity - that normalizes when measured independent of alveolar volume (kCO) is consistent with a nonparenchymal disorder but does not rule out parenchymal or pulmonary vascular disorder. CXR: Last XR Chest - Impression Only XR CHEST 2V FRONTAL/LAT Exam End: 06/20/2024 12:27 PM (Final result) Impression: IMPRESSION: Patchy airspace opacities of the left lung better appreciated on same-day CT and compatible with an infectious/inflammatory process. Stable posttreatment volume loss of the right lung. ... CT Chest: pending from 06/20/2024 at time of visit 12/2023 IMPRESSION: 1. Unchanged postsurgical and postradiation changes detailed above. No new or suspicious pulmonary nodules. No lymphadenopathy. Executive Vp: PSCB Transcribe Date/Time: Dec 21 2023 5:17P Dictated by : YEYO PENA MD This examination was interpreted and the report reviewed and electronically signed by: YEYO PENA MD on Dec 21 2023 5:20PM EST Results-Findings * * *Final Report* * * DATE OF EXAM: Dec 18 2023 10:55AM [facility] [id number] - CT CHEST WO IVCON / PROCEDURE REASON: Malignant neoplasm of unspecified part of unspecified bronchus or lung (HCC) * * * * Physician Interpretation * * * * EXAMINATION: CHEST CT WITHOUT CONTRAST CLINICAL HISTORY: History of lung cancer with chemotherapy and radiation and RIGHT lower lobectomy. Technique: Spiral CT acquisition of the chest from the thoracic inlet to the upper abdomen without contrast. MQ: [id number] CT Radiation dose: Integrated Dose-length product (DLP) for this visit = 207 mGy*cm CT Dose Reduction Employed: Automated exposure control(AEC) and iterative recon Comparison: 06/12/2023 RESULT: Limitations: None. Lines, tubes, and devices: None. Lung parenchyma and airways: Postsurgical changes of RIGHT lower lobectomy. Stable bronchiectasis with bandlike consolidation and volume loss in the perihilar RIGHT upper lobe favoring prior radiation therapy. No new or suspicious pulmonary nodules. Mild centrilobular emphysema. Pleural space: No pleural effusion. No pleural thickening. Lower neck, lymph nodes, and mediastinum: Small calcified RIGHT thyroid nodule is unchanged. No lymphadenopathy in the supraclavicular, axillary, mediastinal, or hilar regions. Fluid attenuating structure adjacent the RIGHT trachea on series 5 image 34 is unchanged from multiple prior exams and favored to be a superior pericardial recess. Heart, pericardium, and thoracic vessels: The thoracic aorta and main pulmonary artery are normal in caliber. The cardiac chambers are normal in size. No coronary artery atherosclerotic calcifications are noted, although the study is not optimized for coronary assessment. No pericardial effusion or thickening. Bones and soft tissues: No destructive bone lesion. Chronic T12 compression fracture. Upper abdomen: No abnormality in the imaged upper abdomen. Localizer images: No additional findings. Labs: WBC Date Value 06/20/2024 6.46 k/uL 10/17/2023 5.2 K/uL 04/07/2021 5.39 k/uL RBC Date Value 06/20/2024 3.99 m/uL 10/17/2023 3.92 M/uL 04/07/2021 3.48 m/uL Hemoglobin (g/dL) Date Value 06/20/2024 12.1 04/07/2021 11.3 Hematocrit (%) Date Value 06/20/2024 37.9 04/07/2021 34.5 HCT (%) Date Value 10/17/2023 37.5 Platelet Count (k/uL) Date Value 06/20/2024 201 04/07/2021 296 PLT (K/uL) Date Value 10/17/2023 252 MPV (fL) Date Value 06/20/2024 9.0 10/17/2023 10.0 04/07/2021 9.2 Neut% (%) Date Value 04/07/2021 67.9 Neutrophils % (%) Date Value 06/20/2024 67.3 Eosin% (%) Date Value 04/07/2021 3.0 Eosinophils % (%) Date Value 06/20/2024 3.6 Baso% (%) Date Value 04/07/2021 0.9 Basophils % (%) Date Value 06/20/2024 0.3 Abs Neut (ANC) (k/uL) Date Value 04/07/2021 3.64 Abs Neut (k/uL) Date Value 06/20/2024 4.35 Abs [place] (k/uL) Date Value 06/20/2024 0.46 04/07/2021 0.50 Abs Eosin (k/uL) Date Value 06/20/2024 0.23 04/07/2021 0.16 Abs Baso (k/uL) Date Value 06/20/2024 <0.03 04/07/2021 0.05 Review of Systems Constitutional: Positive for fatigue. Negative for activity change, appetite change, fever and unexpected weight change. HENT: Positive for congestion and postnasal drip. Negative for mouth sores and sinus pressure. Respiratory: Positive for cough and shortness of breath. Negative for chest tightness and wheezing. Cardiovascular: Negative for chest pain, palpitations and leg swelling. Neurological: Negative for dizziness, weakness and light-headedness. BP 106/72 Pulse 68 Resp 18 Wt 90.3 kg (199 lb) SpO2 93% BMI 32.12 kg/m Physical Exam Vitals reviewed. Constitutional: General: She is not in acute distress. Appearance: Normal appearance. She is not ill-appearing. HENT: Head: Normocephalic. Nose: No congestion. Cardiovascular: Rate and Rhythm: Normal rate and regular rhythm. Heart sounds: Normal heart sounds. Pulmonary: Effort: Pulmonary effort is normal. No respiratory distress. Breath sounds: No wheezing. Comments: LLL crackles Musculoskeletal: Right lower leg: No edema. Left lower leg: No edema. Lymphadenopathy: Cervical: No cervical adenopathy. Skin: General: Skin is warm and dry. Capillary Refill: Capillary refill takes less than 2 seconds. Neurological: General: No focal deficit present. Mental Status: She is alert. ASSESSMENT/PLAN: 1. Moderate COPD (chronic obstructive pulmonary disease) (HCC) - ICD9: 496, ICD10: J44.9 (primary diagnosis) - see #5 - continue Anoro and PRN Albuterol until follow-up with updated PFT - may benefit from triple therapy - SPIROMETRY WITH DILATOR IF OBSTRUCTED - LUNG DIFFUSION CAPACITY (DLCO) - LUNG VOLUMES 2. Bacterial pneumonia - ICD9: 482.9, ICD10: J15.9 - s/p course of Doxycycline and Augmentin with continued symptoms - currently on extended course of Doxycycline per PCP with improvement in symptoms. - repeat chest xray next week per PCP 3. 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) - ICD9: 162.4, ICD10: C34.2 - follows with oncology 4. Radiation fibrosis of lung (HCC) - ICD9: 508.1, E926.9, ICD10: J70.1 - previously stable on December CT - CT pending from 06/20 5. Exertional dyspnea - ICD9: 786.09, ICD10: R06.09 - dyspnea proceeded current illness - awaiting updated chest CT - plan for updated PFT after acute illness - needs to follow-up with cardiology, make sure echo is up to date. F/u 6 weeks with PFT Portions of this documentation were copied and pasted from previous office visit notes in order to provide a cohesive continuity of the history. The note has been reviewed and edited and updated as necessary. Ronald Garrido APRN.AMAIRANI I spent a total of 31 minutes on the date of the service which included preparing to see the patient, [id number] patient care, completing clinical documentation, performing a medically appropriate examination, counseling and educating the patient/family/caregiver, and ordering medications, tests, or procedures. documented in this encounter [facility] 06-28-2024 Note HNO ID: [id number] Author: RONALD GARRIDO APRN.DR[employer]ARD WORKER Service: ? Author Type: Nurse Practitioner Type: Progress Notes Filed: 06/28/2024 17:20 Note Text: Pulmonary Medicine Patients name: Katrina Henson PCP: Dennis Marcial MD CC: follow-up HPI: Katrina Serrano is a 68 year old female former [id number] smoker, quitting in 1999 with PMH significant for COPD, nocturnal oxygen need, GERD, AF, CKD, history of lung cancer and radiation fibrosis. 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 Was on Durvalumab for 4 doses but discontinued due to severe colitis. 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 Current inhaled therapy consists of Anoro Ellipta with as needed albuterol. She presents today for follow-up. [facility] 12/2023. Was treated for acute bronchitis with persistent productive cough. Overall has felt worsening exertional dyspnea since her last visit which interferes with her daily tasks. Also has hx of Afib and sees [facility]. Does not recall when she was last seen or when her last echo was. She was seen by [facility] 06/20 with head cold symptoms x5 days. Worsened with cough and fever. FLU/COVID/RSV negative. Chest xray with patchy airspace opacities in the left lung. Subsequently had chest CT scheduled that day which did suggest Pneumonia. Treated with Augmentin and doxycycline. Had follow-up with her PCP on 06/26 and given additional course of Doxycycline with plan for repeat chest xray later next week. Today, patient reports fatigue. Occasional cough with white sputum (was green at the start). No wheezing. No dyspnea at rest. No current fevers or chills. Denies nocturnal symptoms. Albuterol use is rare. DME: [employer] 3L nocturnal O2 Modified Medical [employer] Solomon Dyspnea Scale (MMRC) I stop for breath after walking about 100 yards or after a few minutes on level ground 3 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 If you have any questions, ask your nurse or doctor. CONTINUE taking these medications albuterol HFA 90 mcg/actuation inhaler Commonly known as: PROVENTIL HFA, VENTOLIN HFA Inhale 2 Puffs as instructed every 4 hours as needed for wheezing/shortness of breath. alendronate 70 mg tablet Commonly known as: FOSAMAX Take 1 tablet by mouth one time a week. In am with glass of water, on a empty stomach, nothing by mouth or lying down for 30 minutes amitriptyline 50 mg tablet Commonly known as: ELAVIL Take 1 tablet by mouth daily at bedtime. ANORO ELLIPTA 62.5-25 mcg/actuation inhaler Generic drug: umeclidinium-vilanterol Inhale 1 Inhalation as instructed once daily. hydrOXYchloroQUINE 200 mg tablet Commonly known as: PLAQUENIL IRON ORAL metoprolol tartrate (short acting) 25 mg tablet Commonly known as: LOPRESSOR Take 0.5 tablets by mouth two times a day. MYRBETRIQ 50 mg Tb24 Generic drug: mirabegron OS-TESSY 500 + D3 ORAL OXYGEN (HOME THERAPY) pantoprazole DR 40 mg tablet Commonly known as: PROTONIX Take 1 tablet by mouth once daily. PROBIOTIC ORAL rOPINIRole 1 mg tablet Commonly known as: REQUIP Take 1 tablet by mouth daily at bedtime. sertraline 100 mg tablet Commonly known as: ZOLOFT Take 1 tablet by mouth once daily. simvastatin 20 mg tablet Commonly known as: ZOCOR Take 1 tablet by mouth daily at bedtime. traMADol 50 mg tablet Commonly known as: ULTRAM Take 1 tablet by mouth every 6 hours as needed for pain for up to 90 days. VITAMIN D3 ORAL XARELTO 20 mg tablet Generic drug: rivaroxaban DATA: I personally reviewed and analyzed all labs, radiographs and available pulmonary function testing PFT: 04/2021 Spirometry shows no obstruction.The reduced FVC suggests restriction. Lung volumes indicate restriction The presence of a reduced lung diffusion capacity - that normalizes when measured independent of alveolar volume (kCO) is consistent with a nonparenchymal disorder but does not rule out parenchymal or pulmonary vascular disorder. CXR: Last XR Ch (more content not included)... [facility] 06-27-2024 Note HNO ID: [id number] Author: ROYER FORD, ? Service: ? Author Type: Nurse Practitioner Type: Progress Notes Filed: 06/27/2024 12:15 Note Text: Katrina Serrano 1955 06/27/2024 HISTORY OF PRESENT ILLNESS: Katrina Serrano is a 67 year old female here for follow up. Per Dr Lambert: DIAGNOSIS: Lung cancer (cT1-2, N2M0) [id number]/ stage IIIA adenocarcinoma of the right middle lobe of lung -Iron deficiency anemia HPI: 66-year-old lady with history of 30 pounds pack smoking quit 20 years ago, hypertension, osteopenia who presented with stage III lung cancer last year. She had a PET CT scan for evaluation of lung nodule on 02/04/2020. PET scan showed increased activity in the lateral right lower lobe lesion SUV 2.9. There was also increased activity in the precarinal level, mediastinum right thoracic prehilum area. SUV 3.2. No other evidence of metastatic disease. She saw Dr. Kiar Toscano on 03/12/2020 for mediastinoscopy on 03/13/20 and possible robotic right lower lobe resection Her pathology unfortunately revealed metastatic adenocarcinoma at level 2 mediastinal lymph node. Treatment history: Neoadjuvant 4500 cGy in 25 fractions treating to the 40KHO18.4% isodose line with 6 MV and 7 tarango. IGRT with daily CBCTs. Concurrent chemotherapy with Cisplatin/Etoposide x 2 cycles ( 04/06/20 to 05/12/20 ) SURGICAL HX: 03/13/2020: Mediastinoscopy positive LN, PDL positive 100% 06/22/2020: Right thoracotomy, right middle lobectomy with mediastinal and hilar lymph node dissection, and vascularized pedicle tissue buttress of bronchial stump. [id number] Previous treatment: Durvalumab maintenance x 4 doses ( 09/03/20 - 07/1/21); discontinued because of colitis and diarrhea. Took months to resolve. Doing well. Reviewed anemia, she has renal insufficiency. Reviewed surveillance scan. Interval Hx: Ms. Serrano presents today for follow up and CT review. Unfortunately, CT read pending. Reviewed with Dr. Steward, appears stable but will await final read. Pt notes URI over the last week or so. Symptoms are improving. No fevers, chills. Productive cough, improving. Started on doxy last night. No constipation or diarrhea. Appetite is good. No unintentional weight loss. Denies SOB, CP, palpitations. No bleeding or bruising. CLINICAL IMPRESSION: History of adenocarcinoma lung neoadjuvant chemoRT, resection, then durvalumab x 2, DIMITRIS RECOMMENDATION/PLAN: 1. Follow expectantly, re scan in 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 Microscopic colitis Other malaise and fatigue Paroxysmal atrial fibrillation (HCC) Shortness of breath Unspecified constipation PAST SURGICAL HISTORY Procedure Laterality Date BACK SURGERY HX x 3 COLONOSCOPY FLX DX W/COLLJ SPEC WHEN PFRMD 02/04/2021 COLSC FLX W/RMVL OF TUMOR POLYP LESION SNARE TQ 08/07/2008 EGD TRANSORAL BIOPSY SINGLE/MULTIPLE 06/16/2010 EGD W/O BRSH SPEC VARICIES INJ 11/17/2021 EXC NEUROMA HAND/FOOT XCP DIGITAL NERVE HERNIA REPAIR HX NEUROPLASTY AND/TRANSPOS MEDIAN NRV CARPAL TUNNE Bilateral Carpal tunnel decomp PAST SURGICAL HISTORY OF 03/13/2020 MEDIASTINOSCOPY W/LYMPH NODE BIOPSY REPR DURAL/CSF [facility]AK W LAMINECTOMY RMVL LUNG OTHER THAN PNEUMONECTOMY 1 LOBE LOBECT Right 06/22/2020 Thoracotomy, right middle lobectomy, mediastinal lymph node dissection for lung cancer SIGMOIDOSCOPY FLX DX W/COLLJ SPEC BR/WA IF PFRMD 1998 Sigmoidoscopy TONSILLECTOMY PRIMARY/SECONDARY Tonsillectomy FAMILY HISTORY Problem Relation Age of Onset other (throat cancer) Mother Heart Father Skin Cancer Brother COPD Brother Skin Cancer Brother Diabetes Son Colon Cancer No Family History Social History Tobacco Use Smoking status: Former Current packs/day: 0.00 Average packs/day: 1 pack/day for 30.0 years (30.0 ttl pk-yrs) Types: Cigarettes Start date: 03/24/1970 Quit date: 03/24/2000 Years since quittin.2 Smokeless tobacco: Never Vaping Use Vaping status: Never Used Substance Use Topics Alcohol use: No Drug use: Never ALLERGIES: ALLERGIES No Known Allergies CURRENT OUTPATIENT MEDICATIONS: doxycycline hyclate (VIBRAMYCIN) 100 mg capsule Take 1 capsule by mouth two times a day for 5 days. traMADol (ULTRAM) 50 mg tablet Take 1 tablet by mouth every 6 hours as needed for pain for up to 90 days. sertr (more content not included)... [facility] 06-27-2024 History of Present illness Narrative Katrina Serrano 1955 06/27/2024 HISTORY OF PRESENT ILLNESS: Katrina Serrano is a 67 year old female here for follow up. 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 She had a PET CT scan for evaluation of lung nodule on 02/04/2020. PET scan showed increased activity in the lateral right lower lobe lesion SUV 2.9. There was also increased activity in the precarinal level, mediastinum right thoracic prehilum area. SUV 3.2. No other evidence of metastatic disease. She saw Dr. Kira Toscano on 03/12/2020 for mediastinoscopy on 03/13/20 and possible robotic right lower lobe resection Her pathology unfortunately revealed metastatic adenocarcinoma at level 2 mediastinal lymph node. Treatment history: Neoadjuvant 4500 cGy in 25 fractions treating to the 97&99.4% isodose line with 6 MV and 7 tarango. IGRT with daily CBCTs. Concurrent chemotherapy with Cisplatin/Etoposide x 2 cycles ( 04/06/20 to 05/12/20 ) SURGICAL HX: 03/13/2020: Mediastinoscopy positive LN, PDL positive 100% 06/22/2020: Right thoracotomy, right middle lobectomy with mediastinal and hilar lymph node dissection, and vascularized pedicle tissue buttress of bronchial stump. [id number] Previous treatment: Durvalumab maintenance x 4 doses ( 09/03/20 - 11/05/20); discontinued because of colitis and diarrhea. Took months to resolve. Doing well. Reviewed anemia, she has renal insufficiency. Reviewed surveillance scan. Interval Hx: Ms. Serrano presents today for follow up and CT review. Unfortunately, CT read pending. Reviewed with Dr. Steward, appears stable but will await final read. Pt notes URI over the last week or so. Symptoms are improving. No fevers, chills. Productive cough, improving. Started on doxy last night. No constipation or diarrhea. Appetite is good. No unintentional weight loss. Denies SOB, CP, palpitations. No bleeding or bruising. CLINICAL IMPRESSION: History of adenocarcinoma lung neoadjuvant chemoRT, resection, then durvalumab x 2, DIMITRIS RECOMMENDATION/PLAN: 1. Follow expectantly, re scan in 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 Microscopic colitis Other malaise and fatigue Paroxysmal atrial fibrillation (HCC) Shortness of breath Unspecified constipation PAST SURGICAL HISTORY Procedure Laterality Date BACK SURGERY HX x 3 COLONOSCOPY FLX DX W/COLLJ SPEC WHEN PFRMD 02/04/2021 COLSC FLX W/RMVL OF TUMOR POLYP LESION SNARE TQ 08/07/2008 EGD TRANSORAL BIOPSY SINGLE/MULTIPLE 06/16/2010 EGD W/O BRSH SPEC VARICIES INJ 11/17/2021 EXC NEUROMA HAND/FOOT XCP DIGITAL NERVE HERNIA REPAIR HX NEUROPLASTY &/TRANSPOS MEDIAN NRV CARPAL TUNNE Bilateral Carpal tunnel decomp PAST SURGICAL HISTORY OF 03/13/2020 MEDIASTINOSCOPY W/LYMPH NODE BIOPSY REPR DURAL/CSF LEAK W LAMINECTOMY RMVL LUNG OTHER THAN PNEUMONECTOMY 1 LOBE LOBECT Right 06/22/2020 Thoracotomy, right middle lobectomy, mediastinal lymph node dissection for lung cancer SIGMOIDOSCOPY FLX DX W/COLLJ SPEC BR/WA IF PFRMD 1998 Sigmoidoscopy TONSILLECTOMY PRIMARY/SECONDARY <AGE 12 Tonsillectomy FAMILY HISTORY Problem Relation Age of Onset other (throat cancer) Mother Heart Father Skin Cancer Brother COPD Brother Skin Cancer Brother Diabetes Son Colon Cancer No Family History Social History Tobacco Use Smoking status: Former Current packs/day: 0.00 Average packs/day: 1 pack/day for 30.0 years (30.0 ttl pk-yrs) Types: Cigarettes Start date: 03/24/1970 Quit date: 03/24/2000 Years since quittin.2 Smokeless tobacco: Never Vaping Use Vaping status: Never Used Substance Use Topics Alcohol use: No Drug use: Never ALLERGIES: ALLERGIES No Known Allergies CURRENT OUTPATIENT MEDICATIONS: doxycycline hyclate (VIBRAMYCIN) 100 mg capsule Take 1 capsule by mouth two times a day for 5 days. traMADol (ULTRAM) 50 mg tablet Take 1 tablet by mouth every 6 hours as needed for pain for up to 90 days. sertraline (ZOLOFT) 100 mg tablet Take 1 tablet by mouth once daily. rOPINIRole (REQUIP) 1 mg tablet Take 1 tablet by mouth daily at bedtime. MYRBETRIQ 50 mg Tb24 Take 50 mg by mouth once daily. alendronate (FOSAMAX) 70 mg tablet Take 1 tablet by mouth one time a week. In am with glass of water, on a empty stomach, nothing by mouth or lying down for 30 minutes metoprolol tartrate, short acting, (LOPRESSOR) 25 mg tablet Take 0.5 tablets by mouth two times a day. pantoprazole DR (PROTONIX) 40 mg tablet Take 1 tablet by mouth once daily. umeclidinium-vilanterol (ANORO ELLIPTA) 62.5-25 mcg/actuation inhaler Inhale 1 Inhalation as instructed once daily. amitriptyline (ELAVIL) 50 mg tablet Take 1 tablet by mouth daily at bedtime. XARELTO 20 mg tablet Take 1 tablet by mouth once daily. simvastatin (ZOCOR) 20 mg tablet Take 1 tablet by mouth daily at bedtime. OXYGEN, HOME THERAPY, Inhale 3 L/min as instructed as directed. hydrOXYchloroQUINE (PLAQUENIL) 200 mg tablet Take 200 mg by mouth twice daily. albuterol HFA (PROVENTIL HFA, VENTOLIN HFA) 90 mcg/actuation inhaler Inhale 2 Puffs as instructed every 4 hours as needed for wheezing/shortness of breath. Lactobacillus acidophilus (PROBIOTIC ORAL) Take 1 tablet by mouth once daily. cholecalciferol, vitamin D3, (VITAMIN D3 ORAL) Take 1 tablet by mouth once daily. REVIEW OF SYSTEMS: GENERAL: No fever, night sweats, weight loss or malaise. All other reviewed and negative other than HPI. All systems reviewed on 06/27/2024 with pertinent positives and negatives as outlined in the interval history. PHYSICAL EXAMINATION: VITAL SIGNS: BP 105/71 Pulse 77 Temp (Src) 97.8 (Temporal) Wt 199 lb (90.3kg) SpO2 100% GENERAL APPEARANCE: Well appearing, in no acute distress, alert and oriented x3, well-hydrated, well nourished. HEENT: Normocephalic, no sclera icterus, external ears normal Neck: Supple, no JVD. Chest: Clear bilaterally, no wheezes, not labored. Heart: Normal S1 and S2, no abnormal sounds Abdomen: Soft, nontender, nondistended Extremities: No edema Neurological: Grossly intact Skin: Warm and dry with no rashes or ulcerations. Hematologic: no bruising or petechiae. I have performed the physical exam today (06/27/2024) and have edited the note to correlate with current findings. Royer Ford APRN.[employer] I spent a total of 20 minutes on the date of the service which included preparing to see the patient, [id number] patient care, completing clinical documentation, obtaining and/or reviewing separately obtained history, and counseling and educating the patient/family/caregiver. Portions of this note including HPI, ROS, impression/plan may have been copied forward as to provide important historical information essential in contributing to medical decision making. Documentation has been reviewed and edited as necessary to support clinical decision making for today's visit and to reflect my own independent evaluation of this patient. documented in this encounter [facility] 06-26-2024 Note HNO ID: [id number] Author: ELVIRA MCINTOSH LPN Service: ? Author Type: LICENSED NURSE Type: Progress Notes Filed: 06/29/2024 14:43 Note Text: Patient is in office for Urgent Care follow up for pneumonia. Patient was evaluated and treated at Urgent Care on 06-21-2024. ASSESSMENT/PLAN: 1. Acute cough - ICD9: 786.2, ICD10: R05.1 (primary diagnosis) 2. Centrilobular emphysema (HCC) - ICD9: 492.8, ICD10: J43.2 3. Community acquired pneumonia of left lung, unspecified part of lung - ICD9: 486, ICD10: J18.9 - XR CHEST 2V FRONTAL/LAT IMPRESSION: Patchy airspace opacities of the left lung better appreciated on same-day CT and compatible with an infectious/inflammatory process. Stable posttreatment volume loss of the right lung. - IPRATROPIUM 0.5 MG-ALBUTEROL 3 MG (2.5 MG BASE)/3 ML NEBULIZATION SOLN - INFLUENZA AANDB MOLECULAR (POC) - negative. - COVID AND INFLUENZA A/B AND RSV PCR, ROUTINE - probably beyond the therapeutic window for antiviral. - suspect viral URI, differential includes COVID-19. Dual antibiotic therapy with doxycycline and augmentin for comorbidities. Patient states she continues to feel tired. No refills needed Elvira Mcintosh LPN June 26, 2024 4:03 PM [facility] 06-20-2024 Note HNO ID: [id number] Author: NEREIDA CISNEROS LPN Service: ? Author Type: LICENSED NURSE Type: Progress Notes Filed: 06/20/2024 14:12 Note Text: 2.5 solution aerosol treatment given per provider's orders. Prior to treatment O2 sat is 94%. Treatment completed. O2 sat is 94%. Tolerated well. Nereida Cisneros LPN [facility] 06-20-2024 History of Present illness Narrative 2.5 solution aerosol treatment given per provider's orders. Prior to treatment O2 sat is 94%. Treatment completed. O2 sat is 94%. Tolerated well. Nereida Cisneros LPN Patient presents with: Cough: Chest congestion, tightness, burning in chest, Wheeze, SOB, fever, fatigue, body aches x 36 hours HPI: Feeling sick with head cold symptoms 5 days ago. She was feeling better 2 days ago. 1 1/2 days ago she developed cough and fever. Positive symptoms: Cough, Shortness of breath, Wheezing, Chest tightness, Fever, Body Aches, Fatigue, Improved: Sore throat, Sinus pressure, Nasal Congestion, Rhinorrhea, Post nasal drainage, Negative symptoms: Nausea, Vomiting, Diarrhea, OTC: Mucinex, Tylenol MEDICATIONS: Current Outpatient Medications Medication Sig traMADol (ULTRAM) 50 mg tablet Take 1 tablet by mouth every 6 hours as needed for pain for up to 90 days. sertraline (ZOLOFT) 100 mg tablet Take 1 tablet by mouth once daily. rOPINIRole (REQUIP) 1 mg tablet Take 1 tablet by mouth daily at bedtime. MYRBETRIQ 50 mg Tb24 Take 50 mg by mouth once daily. alendronate (FOSAMAX) 70 mg tablet Take 1 tablet by mouth one time a week. In am with glass of water, on a empty stomach, nothing by mouth or lying down for 30 minutes metoprolol tartrate, short acting, (LOPRESSOR) 25 mg tablet Take 0.5 tablets by mouth two times a day. pantoprazole DR (PROTONIX) 40 mg tablet Take 1 tablet by mouth once daily. umeclidinium-vilanterol (ANORO ELLIPTA) 62.5-25 mcg/actuation inhaler Inhale 1 Inhalation as instructed once daily. amitriptyline (ELAVIL) 50 mg tablet Take 1 tablet by mouth daily at bedtime. XARELTO 20 mg tablet Take 1 tablet by mouth once daily. simvastatin (ZOCOR) 20 mg tablet Take 1 tablet by mouth daily at bedtime. OXYGEN, HOME THERAPY, Inhale 3 L/min as instructed as directed. hydrOXYchloroQUINE (PLAQUENIL) 200 mg tablet Take 200 mg by mouth twice daily. albuterol HFA (PROVENTIL HFA, VENTOLIN HFA) 90 mcg/actuation inhaler Inhale 2 Puffs as instructed every 4 hours as needed for wheezing/shortness of breath. ferrous sulfate (IRON ORAL) Take 2 tablets by mouth once daily. Lactobacillus acidophilus (PROBIOTIC ORAL) Take 1 tablet by mouth once daily. cholecalciferol, vitamin D3, (VITAMIN D3 ORAL) Take 1 tablet by mouth once daily. calcium carbonate/vitamin D3 (OS-TESSY 500 + D3 ORAL) Take 1 tablet by mouth once daily. No current facility-administered medications for this visit. ALLERGIES: ALLERGIES No Known Allergies VITALS: BP 117/80 Pulse 87 Temp 37.7 C (99.9 F) Resp 24 Wt 88 kg (194 lb 0.1 oz) SpO2 94% BMI 31.31 kg/m PHYSICAL EXAM: GEN: mildly ill appearing HEENT: PERRL, EOMI, conjunctiva clear Ears: TMs without erythema, bulge, or effusion Sinuses: non-tender frontal sinus, non-tender maxillary sinuses Throat: moist mucous membranes, mild erythema, no exudate Neck: supple, no thyromegaly, no lymphadenopathy HEART: regular rate, regular rhythm, no murmurs LUNGS: bilateral coarse wheezes and crackles, no increased WOB ASSESSMENT/PLAN: 1. Acute cough - ICD9: 786.2, ICD10: R05.1 (primary diagnosis) 2. Centrilobular emphysema (HCC) - ICD9: 492.8, ICD10: J43.2 3. Community acquired pneumonia of left lung, unspecified part of lung - ICD9: 486, ICD10: J18.9 - XR CHEST 2V FRONTAL/LAT IMPRESSION: Patchy airspace opacities of the left lung better appreciated on same-day CT and compatible with an infectious/inflammatory process. Stable posttreatment volume loss of the right lung. - IPRATROPIUM 0.5 MG-ALBUTEROL 3 MG (2.5 MG BASE)/3 ML NEBULIZATION SOLN - INFLUENZA A&B MOLECULAR (POC) - negative. - COVID & INFLUENZA A/B & RSV PCR, ROUTINE - probably beyond the therapeutic window for antiviral. - suspect viral URI, differential includes COVID-19. Dual antibiotic therapy with doxycycline and augmentin for comorbidities. - Discussed supportive care treatment with rest, cold medicine, and analgesia. - Red flags to seek further treatment include chest pain, shortness of breath, and lethargy; in the ER if severe. Follow up with PCP next week. Michael Babin MD documented in this encounter [facility] 06-20-2024 Note SARS-COV-2 (AGENT OF COVID-19) RNA: Not detected INFLUENZA A RNA: Not detected INFLUENZA B RNA: Not detected RESPIRATORY SYNCYTIAL VIRUS (RSV) RNA: Not detected [facility] Comment on above: Performed By: #### [id number] ####[facility] [id number] [address] 06-20-2024 History of Present illness Narrative Radiology Service Progress Note PATIENT NAME: Katrina Serrano DATE OF SERVICE: June 20, 2024 TIME: 12:20 PM PATIENT IDENTITY VERIFICATION COMPLETED USING TWO (2) IDENTIFIERS: Name and Date of confirmed by patient verbally. FALL SCREENING: Has the patient had 2 falls in the last year or 1 fall with injury or currently using an Ambulatory Assistive Device (Walker, Cane, Wheelchair, Crutches, etc.)? No PATIENT GENDER DATA: Assigned female at . status: : No status: NO. PATIENT RELEVANT IMPLANT DATA REVIEWED: Yes PATIENT PRESENTS WITH AN IMPLANTABLE OR ATTACHED PLANT SCIENCES PROFESSOR: No RADIOLOGY DEPARTMENT: General X-ray: Exam(s) Completed: Chest X-Ray PERIPHERAL IV DATA: Not applicable SIGNED BY: RT Stef(R) June 20, 2024 12:20 PM documented in this encounter [facility] 06-20-2024 Note HNO ID: [id number] Author: SONDRA RICHARDS RT(Henri) Service: ? Author Type: Strip Polisher Type: Progress Notes Filed: 06/20/2024 12:26 Note Text: Radiology Service Progress Note PATIENT NAME: Katrina Serrano DATE OF SERVICE: June 20, 2024 TIME: 12:20 PM PATIENT IDENTITY VERIFICATION COMPLETED USING TWO (2) IDENTIFIERS: Name and Date of confirmed by patient verbally. FALL SCREENING: Has the patient had 2 falls in the last year or 1 fall with injury or currently using an Ambulatory Assistive Device (Walker, Cane, Wheelchair, Crutches, etc.)? No PATIENT GENDER DATA: Assigned female at . status: : No status: NO. PATIENT RELEVANT IMPLANT DATA REVIEWED: Yes PATIENT PRESENTS WITH AN IMPLANTABLE OR ATTACHED PLANT SCIENCES PROFESSOR: No RADIOLOGY DEPARTMENT: General X-ray: Exam(s) Completed: Chest X-Ray PERIPHERAL IV DATA: Not applicable SIGNED BY: Sondra Richards, (R) June 20, 2024 12:20 PM [facility] 06-20-2024 Note HNO ID: [id number] Author: MICHAEL BABIN MD Service: ? Author Type: Physician Type: Progress Notes Filed: 06/20/2024 14:12 Note Text: Patient presents with: Cough: Chest congestion, tightness, burning in chest, Wheeze, SOB, fever, fatigue, body aches x 36 hours HPI: Feeling sick with head cold symptoms 5 days ago. She was feeling better 2 days ago. 1 1/2 days ago she developed cough and fever. Positive symptoms: Cough, Shortness of breath, Wheezing, Chest tightness, Fever, Body Aches, Fatigue, Improved: Sore throat, Sinus pressure, Nasal Congestion, Rhinorrhea, Post nasal drainage, Negative symptoms: Nausea, Vomiting, Diarrhea, OTC: Mucinex, Tylenol MEDICATIONS: Current Outpatient Medications Medication Sig traMADol (ULTRAM) 50 mg tablet Take 1 tablet by mouth every 6 hours as needed for pain for up to 90 days. sertraline (ZOLOFT) 100 mg tablet Take 1 tablet by mouth once daily. rOPINIRole (REQUIP) 1 mg tablet Take 1 tablet by mouth daily at bedtime. MYRBETRIQ 50 mg Tb24 Take 50 mg by mouth once daily. alendronate (FOSAMAX) 70 mg tablet Take 1 tablet by mouth one time a week. In am with glass of water, on a empty stomach, nothing by mouth or lying down for 30 minutes metoprolol tartrate, short acting, (LOPRESSOR) 25 mg tablet Take 0.5 tablets by mouth two times a day. pantoprazole DR (PROTONIX) 40 mg tablet Take 1 tablet by mouth once daily. umeclidinium-vilanterol (ANORO ELLIPTA) 62.5-25 mcg/actuation inhaler Inhale 1 Inhalation as instructed once daily. amitriptyline (ELAVIL) 50 mg tablet Take 1 tablet by mouth daily at bedtime. XARELTO 20 mg tablet Take 1 tablet by mouth once daily. simvastatin (ZOCOR) 20 mg tablet Take 1 tablet by mouth daily at bedtime. OXYGEN, HOME THERAPY, Inhale 3 L/min as instructed as directed. hydrOXYchloroQUINE (PLAQUENIL) 200 mg tablet Take 200 mg by mouth twice daily. albuterol HFA (PROVENTIL HFA, VENTOLIN HFA) 90 mcg/actuation inhaler Inhale 2 Puffs as instructed every 4 hours as needed for wheezing/shortness of breath. ferrous sulfate (IRON ORAL) Take 2 tablets by mouth once daily. Lactobacillus acidophilus (PROBIOTIC ORAL) Take 1 tablet by mouth once daily. cholecalciferol, vitamin D3, (VITAMIN D3 ORAL) Take 1 tablet by mouth once daily. calcium carbonate/vitamin D3 (OS-TESSY 500 + D3 ORAL) Take 1 tablet by mouth once daily. No current facility-administered medications for this visit. ALLERGIES: ALLERGIES No Known Allergies VITALS: BP 117/80 Pulse 87 Temp 37.7 ?C (99.9 ?F) Resp 24 Wt 88 kg (194 lb 0.1 oz) SpO2 94% BMI 31.31 kg/m? PHYSICAL EXAM: GEN: mildly ill appearing HEENT: PERRL, EOMI, conjunctiva clear Ears: TMs without erythema, bulge, or effusion Sinuses: non-tender frontal sinus, non-tender maxillary sinuses Throat: moist mucous membranes, mild erythema, no exudate Neck: supple, no thyromegaly, no lymphadenopathy HEART: regular rate, regular rhythm, no murmurs LUNGS: bilateral coarse wheezes and crackles, no increased WOB ASSESSMENT/PLAN: 1. Acute cough - ICD9: 786.2, ICD10: R05.1 (primary diagnosis) 2. Centrilobular emphysema (HCC) - ICD9: 492.8, ICD10: J43.2 3. Community acquired pneumonia of left lung, unspecified part of lung - ICD9: 486, ICD10: J18.9 - XR CHEST 2V FRONTAL/LAT IMPRESSION: Patchy airspace opacities of the left lung better appreciated on same-day CT and compatible with an infectious/inflammatory process. Stable posttreatment volume loss of the right lung. - IPRATROPIUM 0.5 MG-ALBUTEROL 3 MG (2.5 MG BASE)/3 ML NEBULIZATION SOLN - INFLUENZA AANDB MOLECULAR (POC) - negative. - COVID AND INFLUENZA A/B AND RSV PCR, ROUTINE - probably beyond the therapeutic window for antiviral. - suspect viral URI, differential includes COVID-19. Dual antibiotic therapy with doxycycline and augmentin for comorbidities. - Discussed supportive care treatment with rest, cold medicine, and analgesia. - Red flags to seek further treatment include chest pain, shortness of breath, and lethargy; in the ER if severe. Follow up with PCP next week. Michael Babin MD [facility] 06-20-2024 History of Present illness Narrative Radiology Service Progress Note PATIENT NAME: Katrina Serrano DATE OF SERVICE: June 20, 2024 TIME: 12:45 PM PATIENT IDENTITY VERIFICATION COMPLETED USING TWO (2) IDENTIFIERS: Name and Date of confirmed by patient verbally. FALL SCREENING: Has the patient had 2 falls in the last year or 1 fall with injury or currently using an Ambulatory Assistive Device (Walker, Cane, Wheelchair, Crutches, etc.)? No PATIENT GENDER DATA: Assigned female at . status: : No status: NO. PATIENT RELEVANT IMPLANT DATA REVIEWED: Yes PATIENT PRESENTS WITH AN IMPLANTABLE OR ATTACHED PLANT SCIENCES PROFESSOR: No RADIOLOGY DEPARTMENT: CT; Exam(s) Completed: Chest PERIPHERAL IV DATA: Not applicable SIGNED BY: RT Mili(Henri) June 20, 2024 12:45 PM documented in this encounter [facility] 06-20-2024 Note HNO ID: [id number] Author: OLY MALONE RT(R) Service: ? Author Type: Strip Polisher Type: Progress Notes Filed: 06/20/2024 12:46 Note Text: Radiology Service Progress Note PATIENT NAME: Katrina Serrano DATE OF SERVICE: June 20, 2024 TIME: 12:45 PM PATIENT IDENTITY VERIFICATION COMPLETED USING TWO (2) IDENTIFIERS: Name and Date of confirmed by patient verbally. FALL SCREENING: Has the patient had 2 falls in the last year or 1 fall with injury or currently using an Ambulatory Assistive Device (Walker, Cane, Wheelchair, Crutches, etc.)? No PATIENT GENDER DATA: Assigned female at . status: : No status: NO. PATIENT RELEVANT IMPLANT DATA REVIEWED: Yes PATIENT PRESENTS WITH AN IMPLANTABLE OR ATTACHED PLANT SCIENCES PROFESSOR: No RADIOLOGY DEPARTMENT: CT; Exam(s) Completed: Chest PERIPHERAL IV DATA: Not applicable SIGNED BY: RT Mili(R) June 20, 2024 12:45 PM [facility] 06-17-2024 Telephone encounter Note Patient notified of information, verbalized understanding. No questions, comments, or concerns at this time. Stephane Ibrahim LPN June 17, 2024 8:40 AM [facility] 06-17-2024 Telephone encounter Note ----- Message from Dennis Marcial MD sent at 06/17/2024 8:20 AM EST ----- Osteoporosis. Continue fosamax.. [facility] 06-17-2024 Miscellaneous Notes Patient notified of information, verbalized understanding. No questions, comments, or concerns at this time. Stephane Ibrahim LPN June 17, 2024 8:40 AM ----- Message from Dennis Marcial MD sent at 06/17/2024 8:20 AM EST ----- Osteoporosis. Continue fosamax.. documented in this encounter [facility] 06-13-2024 Telephone encounter Note Patient called requesting the following refill. Requested Prescriptions Pending Prescriptions Disp Refills traMADol (ULTRAM) 50 mg tablet 90 tablet 0 Sig: Take 1 tablet by mouth every 6 hours as needed for pain for up to 90 days. Patient last appointment: 04/17/2024 Next appointment 10/21/2024 Patient Phone numbers: [phone] (home) Request is for script(s) to be escript to mail order [facility]. Ana Soto LPN [facility] 06-13-2024 Miscellaneous Notes Patient called requesting the following refill. Requested Prescriptions Pending Prescriptions Disp Refills traMADol (ULTRAM) 50 mg tablet 90 tablet 0 Sig: Take 1 tablet by mouth every 6 hours as needed for pain for up to 90 days. Patient last appointment: 04/17/2024 Next appointment 10/21/2024 Patient Phone numbers: [phone] (home) Request is for script(s) to be escript to mail order [facility]. Ana Soto LPN documented in this encounter [facility] [facility] 06-13-2024 History of Present illness Narrative Radiology Service Progress Note PATIENT NAME: Katrina Serrano DATE OF SERVICE: June 13, 2024 TIME: 1:02 PM PATIENT IDENTITY VERIFICATION COMPLETED USING TWO (2) IDENTIFIERS: Name and Date of confirmed by patient verbally. FALL SCREENING: Has the patient had 2 falls in the last year or 1 fall with injury or currently using an Ambulatory Assistive Device (Walker, Cane, Wheelchair, Crutches, etc.)? No PATIENT GENDER DATA: Assigned female at . status: : No status: NO. PATIENT RELEVANT IMPLANT DATA REVIEWED: Not Applicable PATIENT PRESENTS WITH AN IMPLANTABLE OR ATTACHED PLANT SCIENCES PROFESSOR: No RADIOLOGY DEPARTMENT: Mammography PERIPHERAL IV DATA: Not applicable SIGNED BY: Trent Delvalle Billy June 13, 2024 1:02 PM documented in this encounter [facility] 06-13-2024 Miscellaneous Notes Encounter addended by: Daniela Parks Mammo Billy on: 06/13/2024 1:02 PM Actions taken: Clinical Note Signed documented in this encounter [facility] 06-13-2024 Note Encounter addended b y: Daniela Parks Mammo Billy on: 06/13/2024 1:02 PM Actions taken: Clinical Note Signed [facility] 06-13-2024 Note HNO ID: [id number] Author: DANIELA PARKS Mammo Tech Service: ? Author Type: Strip Polisher Type: Progress Notes Filed: 06/13/2024 13:02 Note Text: Radiology Service Progress Note PATIENT NAME: Katrina Serrano DATE OF SERVICE: June 13, 2024 TIME: 1:02 PM PATIENT IDENTITY VERIFICATION COMPLETED USING TWO (2) IDENTIFIERS: Name and Date of confirmed by patient verbally. FALL SCREENING: Has the patient had 2 falls in the last year or 1 fall with injury or currently using an Ambulatory Assistive Device (Walker, Cane, Wheelchair, Crutches, etc.)? No PATIENT GENDER DATA: Assigned female at . status: : No status: NO. PATIENT RELEVANT IMPLANT DATA REVIEWED: Not Applicable PATIENT PRESENTS WITH AN IMPLANTABLE OR ATTACHED PLANT SCIENCES PROFESSOR: No RADIOLOGY DEPARTMENT: Mammography PERIPHERAL IV DATA: Not applicable SIGNED BY: Trent Delvalle June 13, 2024 1:02 PM [facility] 06-13-2024 History of Present illness Narrative Radiology Service Progress Note PATIENT NAME: Katrina Serrano DATE OF SERVICE: June 13, 2024 TIME: 12:24 PM PATIENT IDENTITY VERIFICATION COMPLETED USING TWO (2) IDENTIFIERS: Name and Date of confirmed by patient verbally. FALL SCREENING: Has the patient had 2 falls in the last year or 1 fall with injury or currently using an Ambulatory Assistive Device (Walker, Cane, Wheelchair, Crutches, etc.)? No PATIENT GENDER DATA: Assigned female at . status: : No status: NO. PATIENT RELEVANT IMPLANT DATA REVIEWED: Not Applicable PATIENT PRESENTS WITH AN IMPLANTABLE OR ATTACHED PLANT SCIENCES PROFESSOR: No RADIOLOGY DEPARTMENT: Bone Density PERIPHERAL IV DATA: Not applicable SIGNED BY: ESTEPHANIA Gardner) June 13, 2024 12:24 PM documented in this encounter [facility] 06-13-2024 Note HNO ID: [id number] Author: BALDEMAR HERNDON RT(R) Service: ? Author Type: Technologist Type: Progress Notes Filed: 06/13/2024 12:41 Note Text: Radiology Service Progress Note PATIENT NAME: Katrina Serrano DATE OF SERVICE: June 13, 2024 TIME: 12:24 PM PATIENT IDENTITY VERIFICATION COMPLETED USING TWO (2) IDENTIFIERS: Name and Date of confirmed by patient verbally. FALL SCREENING: Has the patient had 2 falls in the last year or 1 fall with injury or currently using an Ambulatory Assistive Device (Walker, Cane, Wheelchair, Crutches, etc.)? No PATIENT GENDER DATA: Assigned female at . status: : No status: NO. PATIENT RELEVANT IMPLANT DATA REVIEWED: Not Applicable PATIENT PRESENTS WITH AN IMPLANTABLE OR ATTACHED PLANT SCIENCES PROFESSOR: No RADIOLOGY DEPARTMENT: Bone Density PERIPHERAL IV DATA: Not applicable SIGNED BY: RT Jj(R) June 13, 2024 12:24 PM [facility] 06-08-2024 Note HNO ID: [id number] Author: MICHAEL BABIN MD Service: ? Author Type: Physician Type: Progress Notes Filed: 06/08/2024 15:07 Note Text: Express Care Triage Note: Patient presents to the express care with complaint of severe right arm pain that started today; no known injury. She has had this pain previously and gotten injections. She feels the pain all the way down to her fingers and her fingers feel cold. She is uncomfortable holding her arm down at her side. She would like to cancel her appointment here since we do not provide shoulder injections and plans to go to the ER with imaging and pain medicine are available. [facility] 06-08-2024 History of Present illness Narrative [facility] Triage Note: Patient presents to the [facility] with complaint of severe right arm pain that started today; no known injury. She has had this pain previously and gotten injections. She feels the pain all the way down to her fingers and her fingers feel cold. She is uncomfortable holding her arm down at her side. She would like to cancel her appointment here since we do not provide shoulder injections and plans to go to the ER with imaging and pain medicine are available. documented in this encounter [facility] 05-10-2024 Note HNO ID: [id number] Author: NIMCO GALINDO LPN Service: ? Author Type: LICENSED NURSE Type: Progress Notes Filed: 05/10/2024 09:24 Note Text: Per Katrina Goode was provided with powerstep gel inserts, size 10, and instructed/educated in its application, wear, and care. All questions were answered, and patient was able to demonstrate competence with the necessary skills to utilize the above equipment. Nimco Galindo LPN [facility] 05-10-2024 History of Present illness Narrative Per Katrina Goode was provided with powerstep gel inserts, size 10, and instructed/educated in its application, wear, and care. All questions were answered, and patient was able to demonstrate competence with the necessary skills to utilize the above equipment. Nimco Galindo LPN Consultation requested by Dr. López for an opinion regarding right foot pain. My final recommendations will be communicated back to the requesting physician by way of shared Medical record or letter to requesting physician via US mail. Initial Podiatric Office Visit: Chief Complaint: This 68 year old female who presents with chief complaint:right foot pain x 1.5 weeks HPI Patient presents to clinic for evaluation of right foot. Complains of pain to the dorsal lateral aspect of right foot x 1.5 weeks. She states when she walks and goes to step off her foot, she experiences pain along the base of the 4th and 5th metatarsal. She presented to the urgent care yesterday and was subsequently referred here. Patient takes tylenol for the pain but that does not help. PAIN EVALUATION 05/10/2024 0852 Pain Level: 8 Pain Location: Foot-Right Description: Sore Duration Amount of Time: 1 Duration Units: Weeks Frequency: Intermittent Intervention/Comfort measure: Reposition;Relaxation No results found for: HBA1C PCP: Dennis Mracial MD 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 traMADol (ULTRAM) 50 mg tablet Take 1 tablet by mouth every 6 hours as needed for pain for up to 90 days. rOPINIRole (REQUIP) 1 mg tablet Take 1 tablet by mouth daily at bedtime. MYRBETRIQ 50 mg Tb24 Take 50 mg by mouth once daily. alendronate (FOSAMAX) 70 mg tablet Take 1 tablet by mouth one time a week. In am with glass of water, on a empty stomach, nothing by mouth or lying down for 30 minutes metoprolol tartrate, short acting, (LOPRESSOR) 25 mg tablet Take 0.5 tablets by mouth two times a day. pantoprazole DR (PROTONIX) 40 mg tablet Take 1 tablet by mouth once daily. umeclidinium-vilanterol (ANORO ELLIPTA) 62.5-25 mcg/actuation inhaler Inhale 1 Inhalation as instructed once daily. amitriptyline (ELAVIL) 50 mg tablet Take 1 tablet by mouth daily at bedtime. XARELTO 20 mg tablet Take 1 tablet by mouth once daily. simvastatin (ZOCOR) 20 mg tablet Take 1 tablet by mouth daily at bedtime. OXYGEN, HOME THERAPY, Inhale 3 L/min as instructed as directed. hydrOXYchloroQUINE (PLAQUENIL) 200 mg tablet Take 200 mg by mouth twice daily. albuterol HFA (PROVENTIL HFA, VENTOLIN HFA) 90 mcg/actuation inhaler Inhale 2 Puffs as instructed every 4 hours as needed for wheezing/shortness of breath. ferrous sulfate (IRON ORAL) Take 2 tablets by mouth once daily. Lactobacillus acidophilus (PROBIOTIC ORAL) Take 1 tablet by mouth once daily. cholecalciferol, vitamin D3, (VITAMIN D3 ORAL) Take 1 tablet by mouth once daily. calcium carbonate/vitamin D3 (OS-TESSY 500 + D3 ORAL) Take 1 tablet by mouth once daily. No current facility-administered medications for this visit. ALLERGIES No Known Allergies PAST SURGICAL HISTORY Procedure Laterality Date BACK SURGERY HX x 3 COLONOSCOPY FLX DX W/COLLJ SPEC WHEN PFRMD 02/04/2021 COLSC FLX W/RMVL OF TUMOR POLYP LESION SNARE TQ 08/07/2008 EGD TRANSORAL BIOPSY SINGLE/MULTIPLE 06/16/2010 EGD W/O [facility] SPEC VARICIES INJ 11/17/2021 EXC NEUROMA HAND/FOOT XCP DIGITAL NERVE HERNIA REPAIR HX NEUROPLASTY &/TRANSPOS MEDIAN NRV CARPAL TUNNE Bilateral Carpal tunnel decomp PAST SURGICAL HISTORY OF 03/13/2020 MEDIASTINOSCOPY W/LYMPH NODE BIOPSY REPR DURAL/CSF LEAK W LAMINECTOMY RMVL LUNG OTHER THAN PNEUMONECTOMY 1 LOBE LOBECT Right 06/22/2020 Thoracotomy, right middle lobectomy, mediastinal lymph node dissection for lung cancer SIGMOIDOSCOPY FLX DX W/COLLJ SPEC BR/WA IF PFRMD 1998 Sigmoidoscopy TONSILLECTOMY PRIMARY/SECONDARY <AGE 12 Tonsillectomy FAMILY HISTORY Problem Relation Age of Onset other (throat cancer) Mother Heart Father Skin Cancer Brother COPD Brother Skin Cancer Brother Diabetes Son Colon Cancer No Family History Social History Tobacco Use Smoking status: Former Current packs/day: 0.00 Average packs/day: 1 pack/day for 30.0 years (30.0 ttl pk-yrs) Types: Cigarettes Start date: 03/24/1970 Quit date: 03/24/2000 Years since quittin.1 Smokeless tobacco: Never Vaping Use Vaping status: Never Used Substance Use Topics Alcohol use: No Drug use: Never REVIEW OF SYSTEMS GENERAL: Negative for Malaise, significant weight loss, fever RESPIRATORY: Negative for cough, wheezing and shortness of breath CARDIOVASCULAR: Negative for chest pain, leg swelling and palpitations GI: Negative for abdominal discomfort, blood in stools or black stools and change in bowel habits : Negative for dysuria, frequency and incontinence MUSCULOSKELETAL: Negative for joint pain or swelling, back pain, and muscle pain. SKIN: Negative for lesions, rash, and itching. HEMATOLOGY/LYMPHOLOGY Negative for prolonged bleeding, bruising easily, and swollen nodes. ENDOCRINE: Negative for cold or heat intolerance, polyuria, polydipsia and goiter. NEURO: negative Physical Exam: Constitutional: Pt is a well developed 68 year old female who is alert, oriented and cooperative Eyes: Following during examination. No redness or drainage. Respiratory: RR normal and nonlabored. Even breathing. No evidence of distress or shortness of breath. Psychology: Patient is engaged during conversation. Normal affect and mood. Does not appear depressed or anxious during encounter. Vascular: Dorsalis pedis and posterior tibial pulses palpable right Capillary Fill time < 5 seconds to digits 1-5 right Skin temperature warm to warm proximal to distal right Hair growth present to digits Neurological: intact light touch/epicritic sensation intact protective sensation no significant neurological deficits Dermatological: Nails 1-5 right appear normal. Webspaces clean and dry 1-4 right. Skin appears well hydrated and supple. good color, texture, turgor. No open lesions present. No callosities present. Musculoskeletal/Orthopaedic: Patient has pain to palpation of right 4th and 5th tarsal metatarsal joint Foot type is neutral structurally AJ ROM is full with knee extended and flexed 1st MPJ is full when loaded and no pain or crepitus are noted with ROM. MTJ, STJ are full and free of pain and crepitus. +5/5 muscle strength dorsiflexion, plantarflexion, inversion, eversion b/l Radiographs: 3 views right foot reviewed May 10, 2024: I have personally reviewed and interpreted these XR myself: no acute fracture ASSESSMENT: (M79.671) Right foot pain (primary encounter diagnosis) (R52) Pain PLAN: 1. History and physical examination performed. 2. XR reviewed with patient and interpreted today 3. Discussed right foot pain. Will provide patient with powerstep gel insert. Will order oral steroid. 4. If pain fails to improve, call for follow-up and perhaps will place patient in pneumatic boot Radha Sagastume DPM Podiatry [address] [facility] [address] Dept: [phone] Dept AMB ROOMING INTAKE FLOWSHEET DATA Pain Pain Level: 8 Pain Location: Foot-Right Description: Sore Duration Amount of Time: 1 Duration Units: Weeks Frequency: Intermittent Intervention/Comfort measure: Reposition, Relaxation Patient presents with: Right Foot - Numbness, New, Pain Nimco Galindo LPN documented in this encounter [facility] 05-10-2024 Instructions Radha Sagastume - 05/10/2024 9:19 AM EST Powerstep Original Full length. Can purchase at [employer] and boots,shoes and more here in [place], [employer] in [place] or [place]. Also can find in [place] in [facility]. Powersteps can also be purchased online, starting around $45.00 If you have a metatarsal or dancer pad for your feet apply the pad directly to the insole so you can interchange between your shoes. Find a shoe with a removable insole and take this out and replace with your powerstep insole. Always bring powersteps with you when shopping for shoes so that you can make sure that everything fits well together documented in this encounter [facility] 05-10-2024 Note HNO ID: [id number] Author: RADHA SAGASTUME, ? Service: ? Author Type: Physician Type: Progress Notes Filed: 05/10/2024 09:24 Note Text: Consultation requested by Dr. López for an opinion regarding right foot pain. My final recommendations will be communicated back to the requesting physician by way of shared Medical record or letter to requesting physician via [place] mail. Initial Podiatric Office Visit: Chief Complaint: This 68 year old female who presents with chief complaint:right foot pain x 1.5 weeks HPI Patient presents to clinic for evaluation of right foot. Complains of pain to the dorsal lateral aspect of right foot x 1.5 weeks. She states when she walks and goes to step off her foot, she experiences pain along the base of the 4th and 5th metatarsal. She presented to the urgent care yesterday and was subsequently referred here. Patient takes tylenol for the pain but that does not help. PAIN EVALUATION 05/10/2024 0852 Pain Level: 8 Pain Location: Foot-Right Description: Sore Duration Amount of Time: 1 Duration Units: Weeks Frequency: Intermittent Intervention/Comfort measure: Reposition;Relaxation No results found for: HBA1C PCP: Dennis Marcial MD 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 traMADol (ULTRAM) 50 mg tablet Take 1 tablet by mouth every 6 hours as needed for pain for up to 90 days. rOPINIRole (REQUIP) 1 mg tablet Take 1 tablet by mouth daily at bedtime. MYRBETRIQ 50 mg Tb24 Take 50 mg by mouth once daily. alendronate (FOSAMAX) 70 mg tablet Take 1 tablet by mouth one time a week. In am with glass of water, on a empty stomach, nothing by mouth or lying down for 30 minutes metoprolol tartrate, short acting, (LOPRESSOR) 25 mg tablet Take 0.5 tablets by mouth two times a day. pantoprazole DR (PROTONIX) 40 mg tablet Take 1 tablet by mouth once daily. umeclidinium-vilanterol (ANORO ELLIPTA) 62.5-25 mcg/actuation inhaler Inhale 1 Inhalation as instructed once daily. amitriptyline (ELAVIL) 50 mg tablet Take 1 tablet by mouth daily at bedtime. XARELTO 20 mg tablet Take 1 tablet by mouth once daily. simvastatin (ZOCOR) 20 mg tablet Take 1 tablet by mouth daily at bedtime. OXYGEN, HOME THERAPY, Inhale 3 L/min as instructed as directed. hydrOXYchloroQUINE (PLAQUENIL) 200 mg tablet Take 200 mg by mouth twice daily. albuterol HFA (PROVENTIL HFA, VENTOLIN HFA) 90 mcg/actuation inhaler Inhale 2 Puffs as instructed every 4 hours as needed for wheezing/shortness of breath. ferrous sulfate (IRON ORAL) Take 2 tablets by mouth once daily. Lactobacillus acidophilus (PROBIOTIC ORAL) Take 1 tablet by mouth once daily. cholecalciferol, vitamin D3, (VITAMIN D3 ORAL) Take 1 tablet by mouth once daily. calcium carbonate/vitamin D3 (OS-TESSY 500 + D3 ORAL) Take 1 tablet by mouth once daily. No current facility-administered medications for this visit. ALLERGIES No Known Allergies PAST SURGICAL HISTORY Procedure Laterality Date BACK SURGERY HX x 3 COLONOSCOPY FLX DX W/COLLJ SPEC WHEN PFRMD 02/04/2021 COLSC FLX W/RMVL OF TUMOR POLYP LESION SNARE TQ 08/07/2008 EGD TRANSORAL BIOPSY SINGLE/MULTIPLE 06/16/2010 EGD W/O [facility] SPEC VARICIES INJ 11/17/2021 EXC NEUROMA HAND/FOOT XCP DIGITAL NERVE HERNIA REPAIR HX NEUROPLASTY AND/TRANSPOS MEDIAN NRV CARPAL TUNNE Bilateral Carpal tunnel decomp PAST SURGICAL HISTORY OF 03/13/2020 MEDIASTINOSCOPY W/LYMPH NODE BIOPSY REPR DURAL/CSF LEAK W LAMINECTOMY RMVL LUNG OTHER THAN PNEUMONECTOMY 1 LOBE LOBECT Right 06/22/2020 Thoracotomy, right middle lobectomy, mediastinal lymph node dissection for lung cancer SIGMOIDOSCOPY FLX DX W/COLLJ SPEC BR/WA IF PFRMD 1998 Sigmoidoscopy TONSILLECTOMY PRIMARY/SECONDARY Tonsillectomy FAMILY HISTORY Problem Relation Age of Onset other (throat cancer) Mother Heart Father Skin Cancer Brother COPD Brother Skin Cancer Brother Diabetes Son Colon Cancer No Family History Social History Tobacco Use Smoking status: Former Current packs/day: 0.00 Average packs/day: 1 pack/day for 30.0 years (30.0 ttl pk-yrs) Types: Cigarettes Start date: 03/24/1970 Quit date: 03/24/2000 Years since quittin.1 Smoke (more content not included)... [facility] 05-10-2024 Note HNO ID: [id number] Author: NIMCO GALINDO LPN Service: ? Author Type: LICENSED NURSE Type: Progress Notes Filed: 05/10/2024 09:24 Note Text: AMB ROOMING INTAKE FLOWSHEET DATA Pain Pain Level: 8 Pain Location: Foot-Right Description: Sore Duration Amount of Time: 1 Duration Units: Weeks Frequency: Intermittent Intervention/Comfort measure: Reposition, Relaxation Patient presents with: Right Foot - Numbness, New, Pain Nimco Galindo LPN [facility] 05-09-2024 History of Present illness Narrative Radiology Service Progress Note PATIENT NAME: Katrina Serrano DATE OF SERVICE: May 09, 2024 TIME: 11:02 AM PATIENT IDENTITY VERIFICATION COMPLETED USING TWO (2) IDENTIFIERS: Name and Date of confirmed by patient verbally. FALL SCREENING: Has the patient had 2 falls in the last year or 1 fall with injury or currently using an Ambulatory Assistive Device (Walker, Cane, Wheelchair, Crutches, etc.)? No PATIENT GENDER DATA: Female. status: : No status: NO. PATIENT RELEVANT IMPLANT DATA REVIEWED: Not Applicable PATIENT PRESENTS WITH AN IMPLANTABLE OR ATTACHED PLANT SCIENCES PROFESSOR: No RADIOLOGY DEPARTMENT: General X-ray: Exam(s) Completed: Lower Extremity X-Ray(s): Foot, Right and Wt. Bearing PERIPHERAL IV DATA: Not applicable SIGNED BY: RT Quique(R) May 09, 2024 11:02 AM documented in this encounter [facility] 05-09-2024 Note HNO ID: [id number] Author: MG PENA RT(R) Service: Radiology Author Type: Technologist Type: Progress Notes Filed: 05/09/2024 11:09 Note Text: Radiology Service Progress Note PATIENT NAME: Katrina Serrano DATE OF SERVICE: May 09, 2024 TIME: 11:02 AM PATIENT IDENTITY VERIFICATION COMPLETED USING TWO (2) IDENTIFIERS: Name and Date of confirmed by patient verbally. FALL SCREENING: Has the patient had 2 falls in the last year or 1 fall with injury or currently using an Ambulatory Assistive Device (Walker, Cane, Wheelchair, Crutches, etc.)? No PATIENT GENDER DATA: Female. status: : No status: NO. PATIENT RELEVANT IMPLANT DATA REVIEWED: Not Applicable PATIENT PRESENTS WITH AN IMPLANTABLE OR ATTACHED PLANT SCIENCES PROFESSOR: No RADIOLOGY DEPARTMENT: General X-ray: Exam(s) Completed: Lower Extremity X-Ray(s): Foot, Right and Wt. Bearing PERIPHERAL IV DATA: Not applicable SIGNED BY: RT Quique(R) May 09, 2024 11:02 AM [facility] 05-09-2024 Note HNO ID: [id number] Author: TIMA LÓPEZ APRN.[employer] WORK[employer] Service: ? Author Type: Nurse Practitioner Type: Progress Notes Filed: 05/09/2024 11:44 Note Text: Subjective Female with complaints of a weeklong of right foot pain. Patient says it hurts to the bottom onto the top. Patient does not recall any injuries but does have a history of osteoporosis. Patient says it does not seem to be getting any better. Patient says that walking on it makes it hurt worse and bending it inward makes it hurt worse. Tingling numbness. The history is provided by the patient. No math tutor was used. Pain (foot) Review of Systems Constitutional: Negative. Skin: Negative. Objective Physical Exam Constitutional: Appearance: Normal appearance. Pulmonary: Effort: Pulmonary effort is normal. Musculoskeletal: Feet: Feet: Comments: Patient is having pain in the area marked above. Does not create pain when palpating. No signs of swelling or discoloration. Circulation intact. Sensation intact. Strength intact. Range of motion intact. Neurological: Mental Status: She is alert. 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 Microscopic colitis Other malaise and fatigue Paroxysmal atrial fibrillation (HCC) Shortness of breath Unspecified constipation PAST SURGICAL HISTORY Procedure Laterality Date BACK SURGERY HX x 3 COLONOSCOPY FLX DX W/COLLJ SPEC WHEN PFRMD 02/04/2021 COLSC FLX W/RMVL OF TUMOR POLYP LESION SNARE TQ 08/07/2008 EGD TRANSORAL BIOPSY SINGLE/MULTIPLE 06/16/2010 EGD W/O [facility] SPEC VARICIES INJ 11/17/2021 EXC NEUROMA HAND/FOOT XCP DIGITAL NERVE HERNIA REPAIR HX NEUROPLASTY AND/TRANSPOS MEDIAN NRV CARPAL TUNNE Bilateral Carpal tunnel decomp PAST SURGICAL HISTORY OF 03/13/2020 MEDIASTINOSCOPY W/LYMPH NODE BIOPSY REPR DURAL/CSF LEAK W LAMINECTOMY RMVL LUNG OTHER THAN PNEUMONECTOMY 1 LOBE LOBECT Right 06/22/2020 Thoracotomy, right middle lobectomy, mediastinal lymph node dissection for lung cancer SIGMOIDOSCOPY FLX DX W/COLLJ SPEC BR/WA IF PFRMD 1998 Sigmoidoscopy TONSILLECTOMY PRIMARY/SECONDARY Tonsillectomy ALLERGIES Patient has no known allergies. MEDICATIONS sertraline (ZOLOFT) 100 mg tablet Take 1 tablet by mouth once daily. traMADol (ULTRAM) 50 mg tablet Take 1 tablet by mouth every 6 hours as needed for pain for up to 90 days. rOPINIRole (REQUIP) 1 mg tablet Take 1 tablet by mouth daily at bedtime. MYRBETRIQ 50 mg Tb24 Take 50 mg by mouth once daily. alendronate (FOSAMAX) 70 mg tablet Take 1 tablet by mouth one time a week. In am with glass of water, on a empty stomach, nothing by mouth or lying down for 30 minutes metoprolol tartrate, short acting, (LOPRESSOR) 25 mg tablet Take 0.5 tablets by mouth two times a day. pantoprazole DR (PROTONIX) 40 mg tablet Take 1 tablet by mouth once daily. umeclidinium-vilanterol (ANORO ELLIPTA) 62.5-25 mcg/actuation inhaler Inhale 1 Inhalation as instructed once daily. amitriptyline (ELAVIL) 50 mg tablet Take 1 tablet by mouth daily at bedtime. XARELTO 20 mg tablet Take 1 tablet by mouth once daily. simvastatin (ZOCOR) 20 mg tablet Take 1 tablet by mouth daily at bedtime. OXYGEN, HOME THERAPY, Inhale 3 L/min as instructed as directed. hydrOXYchloroQUINE (PLAQUENIL) 200 mg tablet Take 200 mg by mouth twice daily. albuterol HFA (PROVENTIL HFA, VENTOLIN HFA) 90 mcg/actuation inhaler Inhale 2 Puffs as instructed every 4 hours as needed for wheezing/shortness of breath. ferrous sulfate (IRON ORAL) Take 2 tablets by mouth once daily. Lactobacillus acidophilus (PROBIOTIC ORAL) Take 1 tablet by mouth once daily. cholecalciferol, vitamin D3, (VITAMIN D3 ORAL) Take 1 tablet by mouth once daily. calcium carbonate/vitamin D3 (OS-TESSY 500 + D3 ORAL) Take 1 tablet by mouth once daily. FAMILY HISTORY Problem Relation Age of Onset other (throat cancer) Mother Heart Father Skin Cancer Brother COPD Brother Skin Cancer Brother Diabetes Son Colon Cancer No Family History Social History Tobacco Use Smoking status: Former Current packs/day: 0.00 Average packs/day: 1 pack/day for 30.0 years (30.0 ttl pk-yrs) Types: Cigarettes Start date: 03/24/1970 Quit date: 03/24/2000 Years since quittin.1 Smokeless tobacco: Never Vaping Use Vaping status: Never Used Substance Use Topics Alcohol use: No Drug use: Never ASSESSMENT/PLAN: 1. Pain - ICD9: 780.96, ICD10: R52 - XR FOOT GENER (more content not included)... [facility] 05-09-2024 History of Present illness Narrative Images from the original note were not included. Subjective Female with complaints of a weeklong of right foot pain. Patient says it hurts to the bottom onto the top. Patient does not recall any injuries but does have a history of osteoporosis. Patient says it does not seem to be getting any better. Patient says that walking on it makes it hurt worse and bending it inward makes it hurt worse. Tingling numbness. The history is provided by the patient. No math tutor was used. Pain (foot) Review of Systems Constitutional: Negative. Skin: Negative. Objective Physical Exam Constitutional: Appearance: Normal appearance. Pulmonary: Effort: Pulmonary effort is normal. Musculoskeletal: Feet: Feet: Comments: Patient is having pain in the area marked above. Does not create pain when palpating. No signs of swelling or discoloration. Circulation intact. Sensation intact. Strength intact. Range of motion intact. Neurological: Mental Status: She is alert. 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 Microscopic colitis Other malaise and fatigue Paroxysmal atrial fibrillation (HCC) Shortness of breath Unspecified constipation PAST SURGICAL HISTORY Procedure Laterality Date BACK SURGERY HX x 3 COLONOSCOPY FLX DX W/COLLJ SPEC WHEN PFRMD 02/04/2021 COLSC FLX W/RMVL OF TUMOR POLYP LESION SNARE TQ 08/07/2008 EGD TRANSORAL BIOPSY SINGLE/MULTIPLE 06/16/2010 EGD W/O [facility] SPEC VARICIES INJ 11/17/2021 EXC NEUROMA HAND/FOOT XCP DIGITAL NERVE HERNIA REPAIR HX NEUROPLASTY &/TRANSPOS MEDIAN NRV CARPAL TUNNE Bilateral Carpal tunnel decomp PAST SURGICAL HISTORY OF 03/13/2020 MEDIASTINOSCOPY W/LYMPH NODE BIOPSY REPR DURAL/CSF LEAK W LAMINECTOMY RMVL LUNG OTHER THAN PNEUMONECTOMY 1 LOBE LOBECT Right 06/22/2020 Thoracotomy, right middle lobectomy, mediastinal lymph node dissection for lung cancer SIGMOIDOSCOPY FLX DX W/COLLJ SPEC BR/WA IF PFRMD 1998 Sigmoidoscopy TONSILLECTOMY PRIMARY/SECONDARY <AGE 12 Tonsillectomy ALLERGIES Patient has no known allergies. MEDICATIONS sertraline (ZOLOFT) 100 mg tablet Take 1 tablet by mouth once daily. traMADol (ULTRAM) 50 mg tablet Take 1 tablet by mouth every 6 hours as needed for pain for up to 90 days. rOPINIRole (REQUIP) 1 mg tablet Take 1 tablet by mouth daily at bedtime. MYRBETRIQ 50 mg Tb24 Take 50 mg by mouth once daily. alendronate (FOSAMAX) 70 mg tablet Take 1 tablet by mouth one time a week. In am with glass of water, on a empty stomach, nothing by mouth or lying down for 30 minutes metoprolol tartrate, short acting, (LOPRESSOR) 25 mg tablet Take 0.5 tablets by mouth two times a day. pantoprazole DR (PROTONIX) 40 mg tablet Take 1 tablet by mouth once daily. umeclidinium-vilanterol (ANORO ELLIPTA) 62.5-25 mcg/actuation inhaler Inhale 1 Inhalation as instructed once daily. amitriptyline (ELAVIL) 50 mg tablet Take 1 tablet by mouth daily at bedtime. XARELTO 20 mg tablet Take 1 tablet by mouth once daily. simvastatin (ZOCOR) 20 mg tablet Take 1 tablet by mouth daily at bedtime. OXYGEN, HOME THERAPY, Inhale 3 L/min as instructed as directed. hydrOXYchloroQUINE (PLAQUENIL) 200 mg tablet Take 200 mg by mouth twice daily. albuterol HFA (PROVENTIL HFA, VENTOLIN HFA) 90 mcg/actuation inhaler Inhale 2 Puffs as instructed every 4 hours as needed for wheezing/shortness of breath. ferrous sulfate (IRON ORAL) Take 2 tablets by mouth once daily. Lactobacillus acidophilus (PROBIOTIC ORAL) Take 1 tablet by mouth once daily. cholecalciferol, vitamin D3, (VITAMIN D3 ORAL) Take 1 tablet by mouth once daily. calcium carbonate/vitamin D3 (OS-TESSY 500 + D3 ORAL) Take 1 tablet by mouth once daily. FAMILY HISTORY Problem Relation Age of Onset other (throat cancer) Mother Heart Father Skin Cancer Brother COPD Brother Skin Cancer Brother Diabetes Son Colon Cancer No Family History Social History Tobacco Use Smoking status: Former Current packs/day: 0.00 Average packs/day: 1 pack/day for 30.0 years (30.0 ttl pk-yrs) Types: Cigarettes Start date: 03/24/1970 Quit date: 03/24/2000 Years since quittin.1 Smokeless tobacco: Never Vaping Use Vaping status: Never Used Substance Use Topics Alcohol use: No Drug use: Never ASSESSMENT/PLAN: 1. Pain - ICD9: 780.96, ICD10: R52 - XR FOOT GENERAL 3V AP/LAT/OBL RIGHT * * * * Physician Interpretation * * * * EXAM: XR FOOT 3V AP/LAT/OBL RT PATIENT HISTORY: Pain around dorsal lateral forefoot for one week TECHNIQUE: AP, oblique, and lateral radiograph of the right foot COMPARISON: No relevant prior available FINDINGS: No acute fracture or dislocation. Lisfranc joint appears grossly intact. No soft tissue swelling. No radiopaque foreign body. IMPRESSION IMPRESSION: Negative for acute fracture or malalignment of the right foot. Executive Vp: LISA Transcribe Date/Time: May 09 2024 11:22A Dictated by : JADA ENGLISH MD - CONSULT TO PODIATRY - patient to make appt before leaving today. Instructed to take tylenol and ice and rest for a few days. Will see podiatry if pain persists for further testing. Strain vs contusion. Patient agreeable with this care plan. Tima López APRN.[employer] documented in this encounter [facility] 04-22-2024 Telephone encounter Note Patient called requesting the following refill. Requested Prescriptions Pending Prescriptions Disp Refills sertraline (ZOLOFT) 100 mg tablet 90 tablet 3 Sig: Take 1 tablet by mouth once daily. Patient last appointment: 04/17/2024 Next appointment 10/21/2024 Patient Phone numbers: [phone] (home) Request is for script(s) to be escript to mail order [facility]. Ana Soto LPN [facility] 04-22-2024 Miscellaneous Notes Patient called requesting the following refill. Requested Prescriptions Pending Prescriptions Disp Refills sertraline (ZOLOFT) 100 mg tablet 90 tablet 3 Sig: Take 1 tablet by mouth once daily. Patient last appointment: 04/17/2024 Next appointment 10/21/2024 Patient Phone numbers: [phone] (home) Request is for script(s) to be escript to mail order [facility]. Ana oSto LPN documented in this encounter [facility] 04-17-2024 Instructions Dennis Marcial MD - 04/17/2024 4:14 PM EST Screening schedule The following prevention plan is recommended: DTaP,Tdap,Td Vaccine(1 - Tdap) Never done Alpha-1 Antitrypsin Deficiency Screening Never done Mammogram Screening due on 10/14/2022 Bone Density Screening due on 04/19/2023 WHAT YOU CAN DO TO PREVENT FALLS Many falls can be prevented. By making some changes, you can lower your chances of falling. Four things YOU can do to prevent falls for you* and your caregiver 1. Begin a regular exercise program Exercise is one of the most important ways to lower your chances of falling. It makes you stronger and helps you feel better. Exercises that improve balance and coordination (like Joo Chi) are the most helpful. Lack of exercise leads to weakness and increases your chances of falling. Ask your doctor or health care provider about the best type of exercise program for you. 2. Have your health care provider review your medicines Have your doctor or pharmacist review all the medicines you take, even [id number] medicines. As you get older, the way medicines work in your body can change. Some medicines, or combinations of medicines, can make you sleepy or dizzy and can cause you to fall. 3. Have your vision checked Have your eyes checked by an eye doctor at least once a year. You may be wearing the wrong glasses or have a condition like glaucoma or cataracts that limits your vision. Poor vision can increase your chances of falling. 4. Make your home safer About half of all falls happen at home. To make your home safer: Remove things you can trip over (like papers, books, clothes, and shoes) from stairs and places where you walk. Remove small throw rugs or use double-sided tape to keep the rugs from slipping. Keep items you use often in cabinets you can reach easily without using a step stool. Have grab bars put in next to your toilet and in the tub or shower. Use non-slip mats in the bathtub and on shower floors. Improve the lighting in your home. As you get older, you need brighter lights to see well. Hang light-weight curtains or shades to reduce glare. Have handrails and lights put in on all staircases. Wear shoes both inside and outside the house. Avoid going barefoot or wearing slippers. For more information, contact: Centers for Disease Control and Prevention www.cdc.gov/injury * This information may not apply if you have certain medical conditions. documented in this encounter [facility] 04-17-2024 Note HNO ID: [id number] Author: DENNIS MARCIAL MD Service: ? Author Type: Physician Type: Progress Notes Filed: 04/17/2024 16:15 Note Text: Subjective Katrina Serrano is a 68 year old female. Katrina presents today for her Medicare wellness visit. Additionally she follows up for multiple medical problems. See list. Her chronic medical problems are stable. She is followed by oncology for her history of lung cancer. This has been stable as well per patient. Blood pressure is under good control on her current regimen. She denies any racing heart rates associated with her history of A-fib. Cholesterols been well-controlled on current medication. She continues to take iron for treatment of her deficiency anemia. Most recent iron level has been normal. Continues to require tramadol for treatment of her low back pain. Review of Systems PAST SURGICAL HISTORY Procedure Laterality Date BACK SURGERY HX x 3 COLONOSCOPY FLX DX W/COLLJ SPEC WHEN PFRMD 02/04/2021 COLSC FLX W/RMVL OF TUMOR POLYP LESION SNARE TQ 08/07/2008 EGD TRANSORAL BIOPSY SINGLE/MULTIPLE 06/16/2010 EGD W/O [facility] SPEC VARICIES INJ 11/17/2021 EXC NEUROMA HAND/FOOT XCP DIGITAL NERVE HERNIA REPAIR HX NEUROPLASTY AND/TRANSPOS MEDIAN NRV CARPAL TUNNE Bilateral Carpal tunnel decomp PAST SURGICAL HISTORY OF 03/13/2020 MEDIASTINOSCOPY W/LYMPH NODE BIOPSY REPR DURAL/CSF LEAK W LAMINECTOMY RMVL LUNG OTHER THAN PNEUMONECTOMY 1 LOBE LOBECT Right 06/22/2020 Thoracotomy, right middle lobectomy, mediastinal lymph node dissection for lung cancer SIGMOIDOSCOPY FLX DX W/COLLJ SPEC BR/WA IF PFRMD 1998 Sigmoidoscopy TONSILLECTOMY PRIMARY/SECONDARY Tonsillectomy 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 Microscopic colitis Other malaise and fatigue Paroxysmal atrial fibrillation (HCC) Shortness of breath Unspecified constipation FAMILY HISTORY Problem Relation Age of Onset other (throat cancer) Mother Heart Father Skin Cancer Brother COPD Brother Skin Cancer Brother Diabetes Son Colon Cancer No Family History Social History Tobacco Use Smoking status: Former Current packs/day: 0.00 Average packs/day: 1 pack/day for 30.0 years (30.0 ttl pk-yrs) Types: Cigarettes Start date: 03/24/1970 Quit date: 03/24/2000 Years since quittin.0 Smokeless tobacco: Never Vaping Use Vaping status: Never Used Substance Use Topics Alcohol use: No Drug use: Never ALLERGIES No Known Allergies MEDICATIONS: rOPINIRole (REQUIP) 1 mg tablet Take 1 tablet by mouth daily at bedtime. MYRBETRIQ 50 mg Tb24 Take 50 mg by mouth once daily. alendronate (FOSAMAX) 70 mg tablet Take 1 tablet by mouth one time a week. In am with glass of water, on a empty stomach, nothing by mouth or lying down for 30 minutes metoprolol tartrate, short acting, (LOPRESSOR) 25 mg tablet Take 0.5 tablets by mouth two times a day. pantoprazole DR (PROTONIX) 40 mg tablet Take 1 tablet by mouth once daily. umeclidinium-vilanterol (ANORO ELLIPTA) 62.5-25 mcg/actuation inhaler Inhale 1 Inhalation as instructed once daily. amitriptyline (ELAVIL) 50 mg tablet Take 1 tablet by mouth daily at bedtime. sertraline (ZOLOFT) 100 mg tablet Take 1 tablet by mouth once daily. XARELTO 20 mg tablet Take 1 tablet by mouth once daily. simvastatin (ZOCOR) 20 mg tablet Take 1 tablet by mouth daily at bedtime. OXYGEN, HOME THERAPY, Inhale 3 L/min as instructed as directed. hydrOXYchloroQUINE (PLAQUENIL) 200 mg tablet Take 200 mg by mouth twice daily. albuterol HFA (PROVENTIL HFA, VENTOLIN HFA) 90 mcg/actuation inhaler Inhale 2 Puffs as instructed every 4 hours as needed for wheezing/shortness of breath. ferrous sulfate (IRON ORAL) Take 2 tablets by mouth once daily. Lactobacillus acidophilus (PROBIOTIC ORAL) Take 1 tablet by mouth once daily. cholecalciferol, vitamin D3, (VITAMIN D3 ORAL) Take 1 tablet by mouth once daily. calcium carbonate/vitamin D3 (OS-TESSY 500 + D3 ORAL) Take 1 tablet by mouth once daily. traMADol (ULTRAM) 50 mg tablet Take 1 tablet by mouth every 6 hours as needed for pain for up to 90 days. Allergies, past surgical history, family history and past medical history were reviewed per this encounter. Medications were reviewed and verified. 02/12/2024 04/17/2024 INTAKE PAIN ASSESSMENT Are you having pain associated with your visit today? No No If pain assessment is 0, no action needed. If pain assessment is positive, (more content not included)... [facility] 04-17-2024 History of Present illness Narrative Images from the original note were not included. Subjective Katrina Serrano is a 68 year old female. Katrina presents today for her Medicare wellness visit. Additionally she follows up for multiple medical problems. See list. Her chronic medical problems are stable. She is followed by oncology for her history of lung cancer. This has been stable as well per patient. Blood pressure is under good control on her current regimen. She denies any racing heart rates associated with her history of A-fib. Cholesterols been well-controlled on current medication. She continues to take iron for treatment of her deficiency anemia. Most recent iron level has been normal. Continues to require tramadol for treatment of her low back pain. Review of Systems PAST SURGICAL HISTORY Procedure Laterality Date BACK SURGERY HX x 3 COLONOSCOPY FLX DX W/COLLJ SPEC WHEN PFRMD 02/04/2021 COLSC FLX W/RMVL OF TUMOR POLYP LESION SNARE TQ 08/07/2008 EGD TRANSORAL BIOPSY SINGLE/MULTIPLE 06/16/2010 EGD W/O [facility] SPEC VARICIES INJ 11/17/2021 EXC NEUROMA HAND/FOOT XCP DIGITAL NERVE HERNIA REPAIR HX NEUROPLASTY &/TRANSPOS MEDIAN NRV CARPAL TUNNE Bilateral Carpal tunnel decomp PAST SURGICAL HISTORY OF 03/13/2020 MEDIASTINOSCOPY W/LYMPH NODE BIOPSY REPR DURAL/CSF LEAK W LAMINECTOMY RMVL LUNG OTHER THAN PNEUMONECTOMY 1 LOBE LOBECT Right 06/22/2020 Thoracotomy, right middle lobectomy, mediastinal lymph node dissection for lung cancer SIGMOIDOSCOPY FLX DX W/COLLJ SPEC BR/WA IF PFRMD 1998 Sigmoidoscopy TONSILLECTOMY PRIMARY/SECONDARY <AGE 12 Tonsillectomy 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 Microscopic colitis Other malaise and fatigue Paroxysmal atrial fibrillation (HCC) Shortness of breath Unspecified constipation FAMILY HISTORY Problem Relation Age of Onset other (throat cancer) Mother Heart Father Skin Cancer Brother COPD Brother Skin Cancer Brother Diabetes Son Colon Cancer No Family History Social History Tobacco Use Smoking status: Former Current packs/day: 0.00 Average packs/day: 1 pack/day for 30.0 years (30.0 ttl pk-yrs) Types: Cigarettes Start date: 03/24/1970 Quit date: 03/24/2000 Years since quittin.0 Smokeless tobacco: Never Vaping Use Vaping status: Never Used Substance Use Topics Alcohol use: No Drug use: Never ALLERGIES No Known Allergies MEDICATIONS: rOPINIRole (REQUIP) 1 mg tablet Take 1 tablet by mouth daily at bedtime. MYRBETRIQ 50 mg Tb24 Take 50 mg by mouth once daily. alendronate (FOSAMAX) 70 mg tablet Take 1 tablet by mouth one time a week. In am with glass of water, on a empty stomach, nothing by mouth or lying down for 30 minutes metoprolol tartrate, short acting, (LOPRESSOR) 25 mg tablet Take 0.5 tablets by mouth two times a day. pantoprazole DR (PROTONIX) 40 mg tablet Take 1 tablet by mouth once daily. umeclidinium-vilanterol (ANORO ELLIPTA) 62.5-25 mcg/actuation inhaler Inhale 1 Inhalation as instructed once daily. amitriptyline (ELAVIL) 50 mg tablet Take 1 tablet by mouth daily at bedtime. sertraline (ZOLOFT) 100 mg tablet Take 1 tablet by mouth once daily. XARELTO 20 mg tablet Take 1 tablet by mouth once daily. simvastatin (ZOCOR) 20 mg tablet Take 1 tablet by mouth daily at bedtime. OXYGEN, HOME THERAPY, Inhale 3 L/min as instructed as directed. hydrOXYchloroQUINE (PLAQUENIL) 200 mg tablet Take 200 mg by mouth twice daily. albuterol HFA (PROVENTIL HFA, VENTOLIN HFA) 90 mcg/actuation inhaler Inhale 2 Puffs as instructed every 4 hours as needed for wheezing/shortness of breath. ferrous sulfate (IRON ORAL) Take 2 tablets by mouth once daily. Lactobacillus acidophilus (PROBIOTIC ORAL) Take 1 tablet by mouth once daily. cholecalciferol, vitamin D3, (VITAMIN D3 ORAL) Take 1 tablet by mouth once daily. calcium carbonate/vitamin D3 (OS-TESSY 500 + D3 ORAL) Take 1 tablet by mouth once daily. traMADol (ULTRAM) 50 mg tablet Take 1 tablet by mouth every 6 hours as needed for pain for up to 90 days. Allergies, past surgical history, family history and past medical history were reviewed per this encounter. Medications were reviewed and verified. 02/12/2024 04/17/2024 INTAKE PAIN ASSESSMENT Are you having pain associated with your visit today? No No If pain assessment is 0, no action needed. If pain assessment is positive, please see assessment and plain. Objective BP 124/78 (BP Site: Left Arm, BP Position: Sitting, BP Cuff Size: Large Adult) Pulse 76 Temp 36.7 C (98 F) (Temporal) Resp 18 Ht 167.6 cm (5' 6) Wt 87.1 kg (192 lb) SpO2 94% BMI 30.99 kg/m Physical Exam Procedures Assessment and Plan Encounter Diagnosis ICD-10-CM 1. Hypertension, essential I10 COMPREHENSIVE METABOLIC PANEL Well-controlled on current medication 2. Encounter for screening examination for other mental health and behavioral disorders Z13.39 ANXIETY SCREENING 3. Encounter for screening mammogram for breast cancer Z12.31 JERALD SCREENING W OBIE 4. Primary cancer of right lower lobe of lung (HCC) C34.31 traMADol (ULTRAM) 50 mg tablet Stable. Followed by oncology 5. Paroxysmal atrial fibrillation (HCC) I48.0 Stable without RVR 6. Pure hypercholesterolemia, unspecified E78.00 COMPREHENSIVE METABOLIC PANEL LIPID PANEL BASIC Improved on current medication 7. Iron deficiency anemia, unspecified iron deficiency anemia type D50.9 COMPLETE BLOOD COUNT AND DIFFERENTIAL IRON AND TIBC FERRITIN Recheck CBC and iron levels. Currently taking 2 iron tablets daily. 8. Centrilobular emphysema (HCC) J43.2 Stable 9. Former smoker Z87.891 Stable Continue present medications. Check labs as above. Monitor blood pressure regularly. Exercise as tolerated. Maintain good diet. Follow-up in 6 months. Medicare Health Risk Assessment General Health Very good Exercise: Minutes/Day 0 min Exercise: Days/Week 0 days Alcohol: Daily Use Never Alcohol: Drinks/Day Patient does not drink Alcohol: 6 or more drinks Never Feel off balance No Concerns: Teeth/Dentures No Concerns: Sexual function No Troubled by feelings None of the above Frequency: Eating healthy diet Several days ADLs requiring help Safety precautions in home/vehicle No Smoke, vape, chews tobacco No Difficulty hearing No Difficulty seeing No Current Providers Specialists: I have reviewed specialist-related care of the patient in the medical record. Medical/Family history review Reviewed and updated problem list, medical/surgical/family/social history, medications, and allergies. Opioid use review Opioid Medications (last 90 days) 02/12/2024 23:59 Opioid Medications tramadol HCl 50 mg q 6 H PRN ORAL (50 mg tab) -Discontinued tramadol HCl 50 mg q 6 H PRN ORAL Details Outpatient prescription Patient-reported medication Prescribed tramadol HCl (last 90 days) Does patient have risk factors for opioid abuse? No Pain overview Current pain concerns and treatment plan reviewed. Patient stable on current treatment plan. Anxiety/Depression screening PHQ-2 Score: 0 (Lower risk for depression) JUAN DIEGO-2 Score: 0 (Lower risk for anxiety) Recommendation: no further intervention at this time Cognitive screening Mini Cog Score: 4 Cognitive screening reviewed and No further action needed (score 3-5). Functional Observation Was the patient's Timed Up & Go test unsteady or >= 12 seconds? No Advance Care Planning Surrogate decision maker documented and/or advance directives scanned in chart Measurements BP 124/78 (BP Site: Left Arm, BP Position: Sitting, BP Cuff Size: Large Adult) Pulse 76 Temp 36.7 C (98 F) (Temporal) Resp 18 Ht 167.6 cm (5' 6) Wt 87.1 kg (192 lb) SpO2 94% BMI 30.99 kg/m Vision Screening: Follows with optometry/ophthalmology Assessment/Plan Medicare annual wellness visit, subsequent (Z00.00) - Counseled on healthy diet and regular exercise - Fall avoidance information provided Due health maintenance DTaP,Tdap,Td Vaccine(1 - Tdap) declined Alpha-1 Antitrypsin Deficiency Screening declined Mammogram Screening ordered Bone Density Screening ordered Need presurgical clearance for surgery. Patient has no current complaints or concerns. Declined sensitive Stephane Ibrahim LPN April 17, 2024 3:17 PM documented in this encounter [facility] 04-17-2024 Note HNO ID: [id number] Author: STEPHANE IBRAHIM LPN Service: ? Author Type: LICENSED NURSE Type: Progress Notes Filed: 04/17/2024 16:15 Note Text: Due health maintenance DTaP,Tdap,Td Vaccine(1 - Tdap) declined Alpha-1 Antitrypsin Deficiency Screening declined Mammogram Screening ordered Bone Density Screening ordered Need presurgical clearance for surgery. Patient has no current complaints or concerns. Declined sensitive Stephane Ibrahim LPN April 17, 2024 3:17 PM [facility] 04-01-2024 Telephone encounter Note Patient called requesting the following refill. Requested Prescriptions Pending Prescriptions Disp Refills rOPINIRole (REQUIP) 1 mg tablet 90 tablet 3 Sig: Take 1 tablet by mouth daily at bedtime. Patient last appointment: 02/12/2024 Next appointment 04/17/2024 Patient Phone numbers: [phone] (home) Request is for script(s) to be escript to mail order [facility]. Ana Soto LPN [facility] 04-01-2024 Miscellaneous Notes Patient called requesting the following refill. Requested Prescriptions Pending Prescriptions Disp Refills rOPINIRole (REQUIP) 1 mg tablet 90 tablet 3 Sig: Take 1 tablet by mouth daily at bedtime. Patient last appointment: 02/12/2024 Next appointment 04/17/2024 Patient Phone numbers: [phone] (home) Request is for script(s) to be escript to mail order [facility]. Ana Soto LPN documented in this encounter [facility] 02-22-2024 Telephone encounter Note I spoke to patient Piotr and advised her per Dr Marcial's notes. Patient did voice understanding and she is very thankful. Ana Soto LPN February 22, 2024 1:34 PM [facility] 02-22-2024 Miscellaneous Notes I spoke to patient Piotr and advised her per Dr Marcial's notes. Patient did voice understanding and she is very thankful. Ana Soto LPN February 22, 2024 1:34 PM I attempted to call patient Piotr. No answer. I left a voice mail message for patient to return call to office. Ana Soto LPN February 14, 2024 11:[address] Marcial regarding patient's recent test results: CBC and iron much improved. I attempted to call patient Piotr. No answer. I left a voice mail message for patient to return call to office. Ana Soto LPN February 13, 2024 9:13 AM documented in this encounter [facility] 02-14-2024 Telephone encounter Note I attempted to call patient Piotr. No answer. I left a voice mail message for patient to return call to office. Ana Soto LPN February 14, 2024 11:45 AM [facility] 02-13-2024 Telephone encounter Note Per Dr Marcial regarding patient's recent test results: CBC and iron much improved. I attempted to call patient Piotr. No answer. I left a voice mail message for patient to return call to office. Ana Soto LPN February 13, 2024 9:13 AM [facility] 02-12-2024 Note HNO ID: [id number] Author: DENNIS MARCIAL MD Service: ? Author Type: Physician Type: Progress Notes Filed: 02/12/2024 13:00 Note Text: Sherry Serrano is a 68 year old female.The patient presents today for follow-up for multiple medical problems. See list. Her chronic medical problems have been stable. Her blood pressure is under good control. She has been having increased restless leg syndrome symptoms. She has been taking amitriptyline for sleep this has been somewhat helpful for sleep but not for her RLS symptoms. Review of Systems Constitutional: Negative. HENT: Negative. Eyes: Negative. Respiratory: Negative. Cardiovascular: Negative. Gastrointestinal: Negative. Endocrine: Negative. Genitourinary: Negative. Musculoskeletal: Negative. Skin: Negative. Allergic/Immunologic: Negative. Neurological: Negative. Hematological: Negative. Psychiatric/Behavioral: Negative. PAST SURGICAL HISTORY Procedure Laterality Date BACK SURGERY HX x 3 COLONOSCOPY FLX DX W/COLLJ SPEC WHEN PFRMD 02/04/2021 COLSC FLX W/RMVL OF TUMOR POLYP LESION SNARE TQ 08/07/2008 EGD TRANSORAL BIOPSY SINGLE/MULTIPLE 06/16/2010 EGD W/O [facility] SPEC VARICIES INJ 11/17/2021 EXC NEUROMA HAND/FOOT XCP DIGITAL NERVE HERNIA REPAIR HX NEUROPLASTY AND/TRANSPOS MEDIAN NRV CARPAL TUNNE Bilateral Carpal tunnel decomp PAST SURGICAL HISTORY OF 03/13/2020 MEDIASTINOSCOPY W/LYMPH NODE BIOPSY REPR DURAL/CSF LEAK W LAMINECTOMY RMVL LUNG OTHER THAN PNEUMONECTOMY 1 LOBE LOBECT Right 06/22/2020 Thoracotomy, right middle lobectomy, mediastinal lymph node dissection for lung cancer SIGMOIDOSCOPY FLX DX W/COLLJ SPEC BR/WA IF PFRMD 1998 Sigmoidoscopy TONSILLECTOMY PRIMARY/SECONDARY Tonsillectomy 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 Microscopic colitis Other malaise and fatigue Paroxysmal atrial fibrillation (HCC) Shortness of breath Unspecified constipation FAMILY HISTORY Problem Relation Age of Onset other (throat cancer) Mother Heart Father Skin Cancer Brother COPD Brother Skin Cancer Brother Diabetes Son Colon Cancer No Family History Social History Tobacco Use Smoking status: Former Current packs/day: 0.00 Average packs/day: 1 pack/day for 30.0 years (30.0 ttl pk-yrs) Types: Cigarettes Start date: 03/24/1970 Quit date: 03/24/2000 Years since quittin.9 Smokeless tobacco: Never Vaping Use Vaping status: Never Used Substance Use Topics Alcohol use: No Drug use: Never ALLERGIES No Known Allergies MEDICATIONS: MYRBETRIQ 50 mg Tb24 Take 50 mg by mouth once daily. sertraline (ZOLOFT) 100 mg tablet Take 1 tablet by mouth once daily. XARELTO 20 mg tablet Take 1 tablet by mouth once daily. traMADol (ULTRAM) 50 mg tablet Take 1 tablet by mouth every 6 hours as needed for pain for up to 90 days. simvastatin (ZOCOR) 20 mg tablet Take 1 tablet by mouth daily at bedtime. OXYGEN, HOME THERAPY, Inhale 3 L/min as instructed as directed. hydrOXYchloroQUINE (PLAQUENIL) 200 mg tablet Take 200 mg by mouth twice daily. albuterol HFA (PROVENTIL HFA, VENTOLIN HFA) 90 mcg/actuation inhaler Inhale 2 Puffs as instructed every 4 hours as needed for wheezing/shortness of breath. ferrous sulfate (IRON ORAL) Take 2 tablets by mouth once daily. Lactobacillus acidophilus (PROBIOTIC ORAL) Take 1 tablet by mouth once daily. cholecalciferol, vitamin D3, (VITAMIN D3 ORAL) Take 1 tablet by mouth once daily. calcium carbonate/vitamin D3 (OS-TESSY 500 + D3 ORAL) Take 1 tablet by mouth once daily. alendronate (FOSAMAX) 70 mg tablet Take 1 tablet by mouth one time a week. In am with glass of water, on a empty stomach, nothing by mouth or lying down for 30 minutes metoprolol tartrate, short acting, (LOPRESSOR) 25 mg tablet Take 0.5 tablets by mouth two times a day. pantoprazole DR (PROTONIX) 40 mg tablet Take 1 tablet by mouth once daily. umeclidinium-vilanterol (ANORO ELLIPTA) 62.5-25 mcg/actuation inhaler Inhale 1 Inhalation as instructed once daily. rOPINIRole (REQUIP) 1 mg tablet Take 1 tablet by mouth daily at bedtime. amitriptyline (ELAVIL) 50 mg tablet Take 1 tablet by mouth daily at bedtime. Allergies, past surgical history, family history and past medical history were reviewed per this encounter. Medications were reviewed and verified. 01/20/2024 02/12/2024 INTAKE PAIN ASSESSMENT Are you having pain associated with your visit today? Yes, Provid (more content not included)... [facility] 02-12-2024 History of Present illness Narrative Subjective Katrina Serrano is a 68 year old female.The patient presents today for follow-up for multiple medical problems. See list. Her chronic medical problems have been stable. Her blood pressure is under good control. She has been having increased restless leg syndrome symptoms. She has been taking amitriptyline for sleep this has been somewhat helpful for sleep but not for her RLS symptoms. Review of Systems Constitutional: Negative. HENT: Negative. Eyes: Negative. Respiratory: Negative. Cardiovascular: Negative. Gastrointestinal: Negative. Endocrine: Negative. Genitourinary: Negative. Musculoskeletal: Negative. Skin: Negative. Allergic/Immunologic: Negative. Neurological: Negative. Hematological: Negative. Psychiatric/Behavioral: Negative. PAST SURGICAL HISTORY Procedure Laterality Date BACK SURGERY HX x 3 COLONOSCOPY FLX DX W/COLLJ SPEC WHEN PFRMD 02/04/2021 COLSC FLX W/RMVL OF TUMOR POLYP LESION SNARE TQ 08/07/2008 EGD TRANSORAL BIOPSY SINGLE/MULTIPLE 06/16/2010 EGD W/O [facility] SPEC VARICIES INJ 11/17/2021 EXC NEUROMA HAND/FOOT XCP DIGITAL NERVE HERNIA REPAIR HX NEUROPLASTY &/TRANSPOS MEDIAN NRV CARPAL TUNNE Bilateral Carpal tunnel decomp PAST SURGICAL HISTORY OF 03/13/2020 MEDIASTINOSCOPY W/LYMPH NODE BIOPSY REPR DURAL/CSF LEAK W LAMINECTOMY RMVL LUNG OTHER THAN PNEUMONECTOMY 1 LOBE LOBECT Right 06/22/2020 Thoracotomy, right middle lobectomy, mediastinal lymph node dissection for lung cancer SIGMOIDOSCOPY FLX DX W/COLLJ SPEC BR/WA IF PFRMD 1998 Sigmoidoscopy TONSILLECTOMY PRIMARY/SECONDARY <AGE 12 Tonsillectomy 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 Microscopic colitis Other malaise and fatigue Paroxysmal atrial fibrillation (HCC) Shortness of breath Unspecified constipation FAMILY HISTORY Problem Relation Age of Onset other (throat cancer) Mother Heart Father Skin Cancer Brother COPD Brother Skin Cancer Brother Diabetes Son Colon Cancer No Family History Social History Tobacco Use Smoking status: Former Current packs/day: 0.00 Average packs/day: 1 pack/day for 30.0 years (30.0 ttl pk-yrs) Types: Cigarettes Start date: 03/24/1970 Quit date: 03/24/2000 Years since quittin.9 Smokeless tobacco: Never Vaping Use Vaping status: Never Used Substance Use Topics Alcohol use: No Drug use: Never ALLERGIES No Known Allergies MEDICATIONS: MYRBETRIQ 50 mg Tb24 Take 50 mg by mouth once daily. sertraline (ZOLOFT) 100 mg tablet Take 1 tablet by mouth once daily. XARELTO 20 mg tablet Take 1 tablet by mouth once daily. traMADol (ULTRAM) 50 mg tablet Take 1 tablet by mouth every 6 hours as needed for pain for up to 90 days. simvastatin (ZOCOR) 20 mg tablet Take 1 tablet by mouth daily at bedtime. OXYGEN, HOME THERAPY, Inhale 3 L/min as instructed as directed. hydrOXYchloroQUINE (PLAQUENIL) 200 mg tablet Take 200 mg by mouth twice daily. albuterol HFA (PROVENTIL HFA, VENTOLIN HFA) 90 mcg/actuation inhaler Inhale 2 Puffs as instructed every 4 hours as needed for wheezing/shortness of breath. ferrous sulfate (IRON ORAL) Take 2 tablets by mouth once daily. Lactobacillus acidophilus (PROBIOTIC ORAL) Take 1 tablet by mouth once daily. cholecalciferol, vitamin D3, (VITAMIN D3 ORAL) Take 1 tablet by mouth once daily. calcium carbonate/vitamin D3 (OS-TESSY 500 + D3 ORAL) Take 1 tablet by mouth once daily. alendronate (FOSAMAX) 70 mg tablet Take 1 tablet by mouth one time a week. In am with glass of water, on a empty stomach, nothing by mouth or lying down for 30 minutes metoprolol tartrate, short acting, (LOPRESSOR) 25 mg tablet Take 0.5 tablets by mouth two times a day. pantoprazole DR (PROTONIX) 40 mg tablet Take 1 tablet by mouth once daily. umeclidinium-vilanterol (ANORO ELLIPTA) 62.5-25 mcg/actuation inhaler Inhale 1 Inhalation as instructed once daily. rOPINIRole (REQUIP) 1 mg tablet Take 1 tablet by mouth daily at bedtime. amitriptyline (ELAVIL) 50 mg tablet Take 1 tablet by mouth daily at bedtime. Allergies, past surgical history, family history and past medical history were reviewed per this encounter. Medications were reviewed and verified. 01/20/2024 02/12/2024 INTAKE PAIN ASSESSMENT Are you having pain associated with your visit today? Yes, Provider notified No Pain Scales Verbal (Numeric Rating or Visual Analog Scale) Pain Location Abdomen-Mid Lower Description Pressure Duration Amount of Time 3 Duration Units Days Frequency Continuous Intervention/Comfort measure Declined If pain assessment is 0, no action needed. If pain assessment is positive, please see assessment and plain. Objective BP 112/74 (BP Site: Left Arm, BP Position: Sitting, BP Cuff Size: Regular Adult) Pulse 86 Temp 36.1 C (97 F) (Temporal) Resp 18 Ht 167.6 cm (5' 6) Wt 87.5 kg (193 lb) SpO2 96% BMI 31.15 kg/m Physical Exam Vitals reviewed. Constitutional: Appearance: Normal appearance. HENT: Head: Normocephalic and atraumatic. Nose: Nose normal. Eyes: Extraocular Movements: Extraocular movements intact. Pupils: Pupils are equal, round, and reactive to light. Cardiovascular: Rate and Rhythm: Normal rate and regular rhythm. Pulmonary: Effort: Pulmonary effort is normal. Breath sounds: Normal breath sounds. Abdominal: General: Bowel sounds are normal. Palpations: Abdomen is soft. Musculoskeletal: General: Normal range of motion. Cervical back: Normal range of motion and neck supple. Skin: General: Skin is warm and dry. Capillary Refill: Capillary refill takes less than 2 seconds. Neurological: General: No focal deficit present. Mental Status: She is alert and oriented to person, place, and time. Mental status is at baseline. Psychiatric: Mood and Affect: Mood normal. Behavior: Behavior normal. Assessment and Plan Encounter Diagnosis ICD-10-CM 1. RLS (restless legs syndrome) G25.81 MAGNESIUM Symptoms increased. Add Requip 1 mg at bedtime. Monitor for improvement of symptoms. 2. Gastroesophageal reflux disease, unspecified whether esophagitis present K21.[address] (PROTONIX) 40 mg tablet Stable on current medication 3. Iron deficiency anemia, unspecified iron deficiency anemia type D50.9 COMPLETE BLOOD COUNT AND DIFFERENTIAL IRON AND TIBC Recheck CBC and iron. Continue iron supplement. 4. Paroxysmal atrial fibrillation (HCC) I48.0 Stable on current medication. Add Requip 1 mg at bedtime. Otherwise continue present medications. Monitor blood pressure regularly. Exercise as tolerated. Maintain good diet. Follow-up in 6 months. Dennis Marcial MD February 12, 2024 February 12, 2024 Patient is in office for follow up for chronic medical conditions Patient is suffering from restless leg syndrome, and also states her Amitriptyline is no long effective for sleep Elvira Mcintosh LPN February 12, 2024 11:22 AM documented in this encounter [facility] 02-12-2024 Note HNO ID: [id number] Author: ELVIRA MCINTOSH LPN Service: ? Author Type: LICENSED NURSE Type: Progress Notes Filed: 02/12/2024 13:00 Note Text: Patient is in office for follow up for chronic medical conditions Patient is suffering from restless leg syndrome, and also states her Amitriptyline is no long effective for sleep Elvira Mcintosh LPN February 12, 2024 11:22 AM [facility] 02-12-2024 Telephone encounter Note Faxed Maki Mackay LPN [facility] 02-12-2024 Miscellaneous Notes Faxed Maki Mackay LPN Surgical clearance form from [facility] currently in provider's mailbox for review. Maki Mackay LPN Pt calling to inquire about getting pulmonary surgical clearance for insertion of stimulator implant for pain. [facility]. Does pt need appt to be cleared? Any additional testing? [place] 12/2023 Last Oximetry with ambulation 12/2022 Please review and advise. Eden Juan MA documented in this encounter [facility] 02-08-2024 Telephone encounter Note Surgical clearance form from [facility] currently in provider's mailbox for review. Maki Mackay LPN [facility] 02-08-2024 Telephone encounter Note Pt calling to inquire about getting pulmonary surgical clearance for insertion of stimulator implant for pain. [facility]. Does pt need appt to be cleared? Any additional testing? [place]O 12/2023 Last Oximetry with ambulation 12/2022 Please review and advise. Eden Juan MA [facility] 01-26-2024 Telephone encounter Note Patient phoned office again in regards to a problem with her Zoloft. Patient states that medication was increased at last visit and now she does not have enough medication In last chart note it is stated that patient went from taking 50 mg BID to 100 mg daily. Patient stated that she has been taking 100 mg BID and has now run out of medication Patient then asked if she should stop taking medication, this nurse advised patient not to stop medication, to wait to see what Dr. Marcial would like her to do. Please advise on dosage patient should be taking Elvira Mcintosh LPN January 26, 2024 9:09 AM [facility] 01-26-2024 Miscellaneous Notes Patient phoned office again in regards to a problem with her Zoloft. Patient states that medication was increased at last visit and now she does not have enough medication In last chart note it is stated that patient went from taking 50 mg BID to 100 mg daily. Patient stated that she has been taking 100 mg BID and has now run out of medication Patient then asked if she should stop taking medication, this nurse advised patient not to stop medication, to wait to see what Dr. Marcial would like her to do. Please advise on dosage patient should be taking Elvira Mcintosh LPN January 26, 2024 9:09 AM Summary: Regarding Zoloft Patient is requesting a return call regarding her Zoloft, states it was not sent in correctly to [facility] and she is about to run out. documented in this encounter [facility] 01-25-2024 Telephone encounter Note Summary: Regarding Zoloft Patient is requesting a return call regarding her Zoloft, states it was not sent in correctly to [facility] and she is about to run out. [facility] 01-25-2024 Telephone encounter Note Patient phoned for urine cx results and given to patient. Patient was prescribed cephalexin AB and reports her s/s have improved. [facility] 01-25-2024 Miscellaneous Notes Patient phoned for urine cx results and given to patient. Patient was prescribed cephalexin AB and reports her s/s have improved. documented in this encounter [facility] 01-22-2024 Telephone encounter Note Attempted to contact to verify Zoloft dose but I could not hear because she was in the car wash. Patient was agreeable to me calling her tomorrow at 330pm. Call ended. Lamar Olivera LPN January 22, 2024 6:17 PM [facility] 01-22-2024 Miscellaneous Notes Attempted to contact to verify Zoloft dose but I could not hear because she was in the car wash. Patient was agreeable to me calling her tomorrow at 330pm. Call ended. Lamar Olivera LPN January 22, 2024 6:17 PM documented in this encounter [facility] 01-20-2024 Instructions Jaspreet Curtis APRN.[employer] - 01/20/2024 10:46 AM EDT ASSESSMENT/PLAN: 1. Dysuria - ICD9: 788.1, ICD10: R30.0 (primary diagnosis) acute - UA positive for raul esterase and hematuria - Send urine for culture - Begin treatment with cephalexin for 7 days - UA DIP, URINE (POC) - URINE CULTURE 2. Acute cystitis with hematuria - ICD9: 595.0, ICD10: N30.01 - CEPHALEXIN 500 MG CAPSULE - Follow-up with your PCP in 3-5 days if symptoms have not improved or sooner if symptoms worsen - Discussed red flags and need for immediate medical evaluation if any occur. - Discussed supportive care treatment with fluids, rest and analgesia. - Discussed expected course of illness Jaspreet Curtis APRN.[employer] [facility] PATIENT INFO BLADDER INFECTION OVERVIEW Bladder infections are one of the most common infections, causing symptoms of burning with urination and needing to urinate frequently. A bladder infection is a type of urinary tract infection (UTI). Bladder infections are more common is women than men. Most women have an uncomplicated bladder infection that is easily treated with a short course of antibiotics. In men, bladder infections may also affect the prostate gland, and a longer course of treatment may be needed. BLADDER INFECTION CAUSES The urinary tract includes the kidneys (which filter urine), ureters (the tube that carries urine from the kidneys to the bladder), the bladder (which stores urine), and urethra (the tube that carries urine out of the bladder). Bacteria do not normally live in these areas. However, bacteria normally live close to the urethra in women and men who are not circumcised. Bladder infections occur when bacteria travel up the urethra into the bladder. Factors that increase the risk of developing a bladder infection include: Vaginal sex Use of spermicides History of past bladder infections Diabetes In men, not being circumcised or having anal sex increase the risk of bladder infections. BLADDER INFECTION SYMPTOMS The typical symptoms of a bladder infection include: Pain or burning when urinating Frequent need to urinate Urgent need to urinate Blood in the urine Fever, back pain, nausea, or vomiting are not common symptoms of a bladder infection, but can occur in people with a kidney infection (pyelonephritis). If you have these symptoms, you should call your doctor or nurse immediately. Is it a bladder infection or something else? -- Burning with urination can also occur in people with vaginitis (eg, yeast infection) or urethritis (inflammation of the urethra). For this reason, it is important to call your healthcare provider before assuming you have a bladder infection. BLADDER INFECTION DIAGNOSIS Simple bladder infections are usually diagnosed based upon your symptoms alone. However, most patients, especially those who have bladder infection symptoms for the first time, should see a healthcare provider for urine testing. Urine culture -- A urine culture is a test that uses a sample of urine to try and grow bacteria in a laboratory. It usually requires about 48 hours to get results. However, a urine culture is not always required to diagnose a bladder infection. Urine culture is often recommended if: You have never had a bladder infection before You have symptoms that are not typical for bladder infection You have had resistant bladder infections before You have frequent bladder infections You do not begin to feel better within 24 to 48 hours after starting antibiotics You are BLADDER INFECTION TREATMENT Bladder infection -- In young, healthy adolescents and adults with a bladder infection, the usual treatment includes a three to seven day course of antibiotics. The typical drugs chosen are: trimethoprim-sulfamethoxazole (Bactrim ), nitrofurantoin (Macrobid ), ciprofloxacin (Cipro ) or levofloxacin (Levaquin ). In men, the infection may involve your prostate gland and treatment is usually given for at least 7 days. Your symptoms should begin to resolve within one day after starting treatment. It is important to take the full course of antibiotics to completely eliminate the infection. If your symptoms persist for more than two or three days after starting treatment, call your healthcare provider. If needed, you can take a prescription medication that numbs the bladder and urethra (phenazopyridine [Pyridium ]) to reduce the burning pain of some UTIs. A similar medication is available without a prescription (eg, Uristat). Both medications change the color of the urine (usually blue or orange) and can interfere with laboratory testing. You should not take these medications for more than 48 hours due to the risk of side effects. These medications do not treat the infection and must be taken along with an antibiotic. Some providers recommend drinking more fluids while treating bladder infections to help flush bacteria from the bladder. Others believe that drinking more fluids may dilute the antibiotic in the bladder and make the medication less effective. No studies have been performed to address this issue. There are also no good studies on the effectiveness of cranberry juice for treating a bladder infection; we do not recommend using cranberry juice to treat bladder infections. Follow-up care -- Follow-up testing is not needed in healthy, young men or women with a bladder infection if symptoms resolve. women are usually asked to have a repeat urine culture one to two weeks after treatment has ended to make sure the bacteria are no longer in the urine. RECURRENT BLADDER INFECTIONS Bladder infections versus other causes -- Some adults, especially women, develop bladder infections frequently. In this case, it is important to confirm that your symptoms (eg, pain or burning, frequency, and urgency) are caused by a bladder infection. Symptoms are usually similar from one infection to another. The best way to confirm an infection is to have a urine culture. If your urine culture is negative for infection, other causes of pain, burning, and frequency should be investigated. There is no reason to take antibiotics if your urine culture is negative. Need for further testing -- If you continue to develop bladder infections, you may require further testing. If you continue to notice blood in your urine after your bladder infection has cleared, you should have further testing. Preventing recurrent UTIs -- Women with recurrent urinary tract infections may be advised to take steps to prevent bladder infections, including one or more of the following: Changes in control -- Women who develop frequent bladder infections and use spermicides, particularly those who also use a diaphragm, may be encouraged to use an alternate method of control. Cranberry products -- Taking cranberry juice or cranberry tablets has been promoted as one way to help prevent frequent bladder infections. However, this has not been proven. Drinking more fluid and urinating after intercourse -- Although studies have not proven that drinking more fluids or urinating soon after intercourse can prevent infection, some healthcare providers recommend these measures since they are not harmful. Drinking more fluid may help to wash out bacteria that enter the bladder. Postmenopausal women -- Postmenopausal women who develop recurrent bladder infections may benefit from using vaginal estrogen. Vaginal estrogen is available in a flexible ring that is worn in the vagina for three months (eg, Estring ), a small tablet (Vagifem ), or a cream (eg, Premarin or Estrace ). Vaginal estrogen is discussed in more detail in a separate topic review. Antibiotics -- A preventive antibiotic treatment may be recommended if you repeatedly develop bladder infections and have not responded to other preventive measures. Antibiotics are highly effective in preventing recurrent bladder infections and can be taken in several different ways. Preventive antibiotic -- You can take a low dose of an antibiotic once per day or three times per week for six months to several years. Antibiotics following intercourse -- In women who develop urinary tract infections after sex, taking a single low dose antibiotic after intercourse can help to prevent bladder infections. Self-treatment -- A plan to begin antibiotics at the first sign of a bladder infection may be recommended in some situations. Before starting this regimen, it is important that you have had testing (urine cultures) to confirm that your symptoms are caused by a bladder infection; some people have symptoms of a bladder infection but do not actually have an infection. documented in this encounter [facility] 01-20-2024 Note HNO ID: [id number] Author: JASPREET CURTIS APRN.[employer] Service: ? Author Type: Nurse Practitioner Type: Progress Notes Filed: 01/20/2024 10:50 Note Text: Subjective HPI Katrina Serrano is a 68 year old female who presents with bladder pressure and urgency for the past 3 days. She states it feels like she has to urinate then nothing comes out. She was able to urinate overnight. She denies fever, chills, nausea or vomiting. She complains of pelvic pressure. She has not taken any medication for her symptoms today. Review of Systems Constitutional: Negative for chills and fever. Respiratory: Negative. Cardiovascular: Negative. Gastrointestinal: Positive for abdominal pain (pelvic pressure). Negative for nausea and vomiting. Genitourinary: Positive for dysuria, frequency and urgency. Negative for hematuria. Musculoskeletal: Negative for back pain. BP 112/64 Pulse 78 Temp (!) 35.9 ?C (96.6 ?F) (Left Tympanic) Resp 16 Wt 87.2 kg (192 lb 3.9 oz) SpO2 96% BMI 31.03 kg/m? 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 Microscopic colitis Other malaise and fatigue Paroxysmal atrial fibrillation (HCC) Shortness of breath Unspecified constipation PAST SURGICAL HISTORY Procedure Laterality Date BACK SURGERY HX x 3 COLONOSCOPY FLX DX W/COLLJ SPEC WHEN PFRMD 02/04/2021 COLSC FLX W/RMVL OF TUMOR POLYP LESION SNARE TQ 08/07/2008 EGD TRANSORAL BIOPSY SINGLE/MULTIPLE 06/16/2010 EGD W/O [facility] SPEC VARICIES INJ 11/17/2021 EXC NEUROMA HAND/FOOT XCP DIGITAL NERVE HERNIA REPAIR HX NEUROPLASTY AND/TRANSPOS MEDIAN NRV CARPAL TUNNE Bilateral Carpal tunnel decomp PAST SURGICAL HISTORY OF 03/13/2020 MEDIASTINOSCOPY W/LYMPH NODE BIOPSY REPR DURAL/CSF LEAK W LAMINECTOMY RMVL LUNG OTHER THAN PNEUMONECTOMY 1 LOBE LOBECT Right 06/22/2020 Thoracotomy, right middle lobectomy, mediastinal lymph node dissection for lung cancer SIGMOIDOSCOPY FLX DX W/COLLJ SPEC BR/WA IF PFRMD 1998 Sigmoidoscopy TONSILLECTOMY PRIMARY/SECONDARY Tonsillectomy ALLERGIES Patient has no known allergies. MEDICATIONS XARELTO 20 mg tablet Take 1 tablet by mouth once daily. traMADol (ULTRAM) 50 mg tablet Take 1 tablet by mouth every 6 hours as needed for pain for up to 90 days. predniSONE (DELTASONE) 20 mg tablet Take two daily for 5 days. simvastatin (ZOCOR) 20 mg tablet Take 1 tablet by mouth daily at bedtime. sertraline (ZOLOFT) 100 mg tablet Take 1 tablet by mouth once daily. umeclidinium-vilanterol (ANORO ELLIPTA) 62.5-25 mcg/actuation inhaler Inhale 1 Inhalation as instructed once daily. OXYGEN, HOME THERAPY, Inhale 3 L/min as instructed as directed. alendronate (FOSAMAX) 70 mg tablet Take 1 tablet by mouth one time a week. In am with glass of water, on a empty stomach, nothing by mouth or lying down for [address] (PROTONIX) 40 mg tablet Take 1 tablet by mouth once daily. hydrOXYchloroQUINE (PLAQUENIL) 200 mg tablet Take 200 mg by mouth twice daily. amitriptyline (ELAVIL) 50 mg tablet Take 1 tablet by mouth daily at bedtime. metoprolol tartrate, short acting, (LOPRESSOR) 25 mg tablet Take 0.5 tablets by mouth twice daily. albuterol HFA (PROVENTIL HFA, VENTOLIN HFA) 90 mcg/actuation inhaler Inhale 2 Puffs as instructed every 4 hours as needed for wheezing/shortness of breath. ferrous sulfate (IRON ORAL) Take 2 tablets by mouth once daily. Lactobacillus acidophilus (PROBIOTIC ORAL) Take 1 tablet by mouth once daily. cholecalciferol, vitamin D3, (VITAMIN D3 ORAL) Take 1 tablet by mouth once daily. calcium carbonate/vitamin D3 (OS-TESSY 500 + D3 ORAL) Take 1 tablet by mouth once daily. cephALEXin (KEFLEX) 500 mg capsule Take 1 capsule by mouth three times a day for 7 days. traMADol (ULTRAM) 50 mg tablet Take 50 mg by mouth every 6 hours as needed for pain. apixaban (ELIQUIS) 5 mg tab(s) Take 5 mg by mouth two times a day. (Patient not taking: Reported on 01/20/2024) FAMILY HISTORY Problem Relation Age of Onset other (throat cancer) Mother Heart Father Skin Cancer Brother COPD Brother Skin Cancer Brother Diabetes Son Colon Cancer No Family History Social History Tobacco Use Smoking status: Former Current packs/day: 0.00 Average packs/day: 1 pack/day for 30.0 years (30.0 ttl pk-yrs) Types: Cigarettes Start date: 03/24/1970 Quit date: 03/24/2000 Years since quittin.8 Smokeless tobacco: Never Vaping Use Vaping status: Sue (more content not included)... [facility] 01-20-2024 History of Present illness Narrative Subjective HPI Katrina Serrano is a 68 year old female who presents with bladder pressure and urgency for the past 3 days. She states it feels like she has to urinate then nothing comes out. She was able to urinate overnight. She denies fever, chills, nausea or vomiting. She complains of pelvic pressure. She has not taken any medication for her symptoms today. Review of Systems Constitutional: Negative for chills and fever. Respiratory: Negative. Cardiovascular: Negative. Gastrointestinal: Positive for abdominal pain (pelvic pressure). Negative for nausea and vomiting. Genitourinary: Positive for dysuria, frequency and urgency. Negative for hematuria. Musculoskeletal: Negative for back pain. 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 Microscopic colitis Other malaise and fatigue Paroxysmal atrial fibrillation (HCC) Shortness of breath Unspecified constipation PAST SURGICAL HISTORY Procedure Laterality Date BACK SURGERY HX x 3 COLONOSCOPY FLX DX W/COLLJ SPEC WHEN PFRMD 02/04/2021 COLSC FLX W/RMVL OF TUMOR POLYP LESION SNARE TQ 08/07/2008 EGD TRANSORAL BIOPSY SINGLE/MULTIPLE 06/16/2010 EGD W/O [facility] SPEC VARICIES INJ 11/17/2021 EXC NEUROMA HAND/FOOT XCP DIGITAL NERVE HERNIA REPAIR HX NEUROPLASTY &/TRANSPOS MEDIAN NRV CARPAL TUNNE Bilateral Carpal tunnel decomp PAST SURGICAL HISTORY OF 03/13/2020 MEDIASTINOSCOPY W/LYMPH NODE BIOPSY REPR DURAL/CSF LEAK W LAMINECTOMY RMVL LUNG OTHER THAN PNEUMONECTOMY 1 LOBE LOBECT Right 06/22/2020 Thoracotomy, right middle lobectomy, mediastinal lymph node dissection for lung cancer SIGMOIDOSCOPY FLX DX W/COLLJ SPEC BR/WA IF PFRMD 1998 Sigmoidoscopy TONSILLECTOMY PRIMARY/SECONDARY <AGE 12 Tonsillectomy ALLERGIES Patient has no known allergies. MEDICATIONS XARELTO 20 mg tablet Take 1 tablet by mouth once daily. traMADol (ULTRAM) 50 mg tablet Take 1 tablet by mouth every 6 hours as needed for pain for up to 90 days. predniSONE (DELTASONE) 20 mg tablet Take two daily for 5 days. simvastatin (ZOCOR) 20 mg tablet Take 1 tablet by mouth daily at bedtime. sertraline (ZOLOFT) 100 mg tablet Take 1 tablet by mouth once daily. umeclidinium-vilanterol (ANORO ELLIPTA) 62.5-25 mcg/actuation inhaler Inhale 1 Inhalation as instructed once daily. OXYGEN, HOME THERAPY, Inhale 3 L/min as instructed as directed. alendronate (FOSAMAX) 70 mg tablet Take 1 tablet by mouth one time a week. In am with glass of water, on a empty stomach, nothing by mouth or lying down for [address] (PROTONIX) 40 mg tablet Take 1 tablet by mouth once daily. hydrOXYchloroQUINE (PLAQUENIL) 200 mg tablet Take 200 mg by mouth twice daily. amitriptyline (ELAVIL) 50 mg tablet Take 1 tablet by mouth daily at bedtime. metoprolol tartrate, short acting, (LOPRESSOR) 25 mg tablet Take 0.5 tablets by mouth twice daily. albuterol HFA (PROVENTIL HFA, VENTOLIN HFA) 90 mcg/actuation inhaler Inhale 2 Puffs as instructed every 4 hours as needed for wheezing/shortness of breath. ferrous sulfate (IRON ORAL) Take 2 tablets by mouth once daily. Lactobacillus acidophilus (PROBIOTIC ORAL) Take 1 tablet by mouth once daily. cholecalciferol, vitamin D3, (VITAMIN D3 ORAL) Take 1 tablet by mouth once daily. calcium carbonate/vitamin D3 (OS-TESSY 500 + D3 ORAL) Take 1 tablet by mouth once daily. cephALEXin (KEFLEX) 500 mg capsule Take 1 capsule by mouth three times a day for 7 days. traMADol (ULTRAM) 50 mg tablet Take 50 mg by mouth every 6 hours as needed for pain. apixaban (ELIQUIS) 5 mg tab(s) Take 5 mg by mouth two times a day. (Patient not taking: Reported on 01/20/2024) FAMILY HISTORY Problem Relation Age of Onset other (throat cancer) Mother Heart Father Skin Cancer Brother COPD Brother Skin Cancer Brother Diabetes Son Colon Cancer No Family History Social History Tobacco Use Smoking status: Former Current packs/day: 0.00 Average packs/day: 1 pack/day for 30.0 years (30.0 ttl pk-yrs) Types: Cigarettes Start date: 03/24/1970 Quit date: 03/24/2000 Years since quittin.8 Smokeless tobacco: Never Vaping Use Vaping status: Never Used Substance Use Topics Alcohol use: No Drug use: Never Objective Physical Exam Vitals and nursing note reviewed. Constitutional: General: She is not in acute distress. Appearance: Normal appearance. She is not ill-appearing. Cardiovascular: Rate and Rhythm: Normal rate and regular rhythm. Heart sounds: Normal heart sounds. Pulmonary: Effort: Pulmonary effort is normal. No respiratory distress. Breath sounds: Normal breath sounds. No wheezing or rales. Abdominal: General: There is no distension. Palpations: Abdomen is soft. There is no mass. Tenderness: There is abdominal tenderness in the suprapubic area. There is no right CVA tenderness, left CVA tenderness or guarding. Skin: General: Skin is warm and dry. Neurological: Mental Status: She is alert. Last labs for kidney function: Latest Ref Rng 09/05/2023 Protein, Total 6.3 - 8.0 g/dL 7.0 Albumin 3.9 - 4.9 g/dL 3.9 Calcium 8.5 - 10.2 mg/dL 9.7 Bilirubin, Total 0.2 - 1.3 mg/dL 0.2 Alkaline Phosphatase 34 - 123 U/L 101 AST 13 - 35 U/L 21 ALT 7 - 38 U/L 13 Glucose 74 - 99 mg/dL 79 BUN 7 - 21 mg/dL 17 Creatinine 0.58 - 0.96 mg/dL 1.29 (H) Sodium 136 - 144 mmol/L 143 Potassium 3.7 - 5.1 mmol/L 4.1 Chloride 97 - 105 mmol/L 106 (H) CO2 22 - 30 mmol/L 26 Anion Gap 9 - 18 mmol/L 11 eGFR >=60 mL/min/1.73m 46 (L) Legend: (H) High (L) Low Creatinine clearance calculated at 57 mL/min ASSESSMENT/PLAN: 1. Dysuria - ICD9: 788.1, ICD10: R30.0 (primary diagnosis) acute - UA positive for raul esterase and hematuria - Send urine for culture - Begin treatment with cephalexin for 7 days - UA DIP, URINE (POC) - URINE CULTURE 2. Acute cystitis with hematuria - ICD9: 595.0, ICD10: N30.01 - CEPHALEXIN 500 MG CAPSULE - Follow-up with your PCP in 3-5 days if symptoms have not improved or sooner if symptoms worsen - Discussed red flags and need for immediate medical evaluation if any occur. - Discussed supportive care treatment with fluids, rest and analgesia. - Discussed expected course of illness Jaspreet Curtis APRN.[employer] documented in this encounter [facility] 01-11-2024 Telephone encounter Note No , can not do that for narcotic. [facility] 01-11-2024 Miscellaneous Notes No , can not do that for narcotic. Patient called requesting the following refill. Requested Prescriptions Pending Prescriptions Disp Refills traMADol (ULTRAM) 50 mg tablet 270 tablet 0 Sig: Take 1 tablet by mouth every 6 hours as needed for pain for up to 90 days. Patient last appointment: 08/23/2023 Next appointment 02/28/2024 Patient is asking for a 90 day supply like she use to get so she doesn't have to call as often and less trips to the pharmacy Patient Phone numbers: [phone] (home) Request is for script(s) to be escript to [facility] pharmacy. Aan Soto LPN documented in this encounter [facility] 01-10-2024 Telephone encounter Note Patient called requesting the following refill. Requested Prescriptions Pending Prescriptions Disp Refills traMADol (ULTRAM) 50 mg tablet 270 tablet 0 Sig: Take 1 tablet by mouth every 6 hours as needed for pain for up to 90 days. Patient last appointment: 08/23/2023 Next appointment 02/28/2024 Patient is asking for a 90 day supply like she use to get so she doesn't have to call as often and less trips to the pharmacy Patient Phone numbers: [phone] (home) Request is for script(s) to be escript to [facility] pharmacy. Ana Soto LPN [facility] 12-26-2023 History of Present illness Narrative Images from the original note were not included. . [facility] [place] Note Patient name: Katrina Serrano PCP: Dennis Marcial MD CC: cough/follow-up COPD HPI: Katrina Serrano 68 year old female former [id number] smoker, quitting in 1999 with PMH significant for COPD, nocturnal oxygen need, GERD, AF, CKD, and history of lung cancer. 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 Was on Durvalumab for 4 doses but discontinued due to severe colitis. Unfortunately surgery complicated by paralysis of right hemidiaphragm, required 3 L oxygen at night. Current inhaled therapy consists of Anoro Ellipta with as needed albuterol. Most recent chest CT shows radiation fibrosis and no evidence of cancer recurrence. Since [place] she has had recent bronchitis with cough productive of large volumes of yellow phlegm and wheezing. No fevers, chills, chest pain or hemoptysis. She did not seek medical care and took [id number] Mucinex with some improvement in her symptoms however she has persistent coughing. Cough does not interfere with her sleep. Some persistent sputum production but not as severe as it was several weeks ago. DME: [employer] 3 L nocturnal DATA: Labs: Component Ref Range & Units 2 mo ago (10/17/23) WBC 3.9 - 11 K/uL 5.2 RBC 4 - 6 M/uL 3.92 Abnormal HGB 14 - 16.5 g/dL 11.9 Abnormal HCT 39 - 55 % 37.5 Abnormal MCV 79 - 98 fL 95.7 MCH 25.4 - 34.6 pg 30.4 MCHC 30 - 36 g/dL 31.7 PLT 140 - 440 K/uL 252 MPV 7.4 - 10.4 fL 10.0 NEUT % 40 - 74 % 61.7 LYMPH % 20 - 30 % 25.9 MONO % 2 - 8 % 7.3 EOS % 1 - 3 % 4.1 Abnormal BASO % 0 - 1.5 % 0.6 NEUT ABS 1.9 - 8 K/uL 3.2 LYMPH ABS 1.2 - 4 K/uL 1.34 RDW-CV 11.7 - 15.0 % 13.2 RDW-SD 46.9 Immature Gran % % 0.400 Imaging / Diagnostic Studies: DATE OF EXAM: Dec 18 2023 10:55AM [facility] [id number] - CT CHEST WO IVCON / 1. Unchanged postsurgical and postradiation changes detailed above. No new or suspicious pulmonary nodules. No lymphadenopathy. I personally reviewed images which shows stable radiation fibrosis and no suspicious lesions PAST MEDICAL HISTORY No date: Acute gastritis without mention of hemorrhage No date: Arthritis No date: Benign neoplasm of colon No date: Centrilobular emphysema (HCC) No date: Chest pain, unspecified No date: CKD (chronic kidney disease) 10/20/2021: COVID No date: Degeneration of lumbar or lumbosacral intervertebral disc No date: Depression No date: Diaphragm paralysis No date: Dysphagia No date: Esophageal reflux No date: History of transfusion No date: Hypercholesterolemia 05/11/2020: Hypomagnesemia No date: Irritable bowel syndrome No date: Lumbago 03/24/2020: Metastasis to mediastinal lymph node (HCC) No date: Microscopic colitis No date: Other malaise and fatigue No date: Paroxysmal atrial fibrillation (HCC) 03/24/2020: Primary cancer of right lower lobe of lung (HCC) No date: Shortness of breath No date: Unspecified constipation ALLERGIES No Known Allergies traMADol (ULTRAM) 50 mg tablet Take 50 mg by mouth every 6 hours as needed for pain. predniSONE (DELTASONE) 20 mg tablet Take two daily for 5 days. simvastatin (ZOCOR) 20 mg tablet Take 1 tablet by mouth daily at bedtime. apixaban (ELIQUIS) 5 mg tab(s) Take 5 mg by mouth two times a day. sertraline (ZOLOFT) 100 mg tablet Take 1 tablet by mouth once daily. umeclidinium-vilanterol (ANORO ELLIPTA) 62.5-25 mcg/actuation inhaler Inhale 1 Inhalation as instructed once daily. OXYGEN, HOME THERAPY, Inhale as instructed as directed. alendronate (FOSAMAX) 70 mg tablet Take 1 tablet by mouth one time a week. In am with glass of water, on a empty stomach, nothing by mouth or lying down for [address] (PROTONIX) 40 mg tablet Take 1 tablet by mouth once daily. hydrOXYchloroQUINE (PLAQUENIL) 200 mg tablet Take 200 mg by mouth twice daily. amitriptyline (ELAVIL) 50 mg tablet Take 1 tablet by mouth daily at bedtime. metoprolol tartrate, short acting, (LOPRESSOR) 25 mg tablet Take 0.5 tablets by mouth twice daily. albuterol HFA (PROVENTIL HFA, VENTOLIN HFA) 90 mcg/actuation inhaler Inhale 2 Puffs as instructed every 4 hours as needed for wheezing/shortness of breath. ferrous sulfate (IRON ORAL) Take 2 tablets by mouth once daily. Lactobacillus acidophilus (PROBIOTIC ORAL) Take 1 tablet by mouth once daily. cholecalciferol, vitamin D3, (VITAMIN D3 ORAL) Take 1 tablet by mouth once daily. calcium carbonate/vitamin D3 (OS-TESSY 500 + D3 ORAL) Take 1 tablet by mouth once daily. Social History Tobacco Use Smoking status: Former Current packs/day: 0.00 Average packs/day: 1 pack/day for 30.0 years (30.0 ttl pk-yrs) Types: Cigarettes Start date: 03/24/1970 Quit date: 03/24/2000 Years since quittin.7 Smokeless tobacco: Never Vaping Use Vaping status: Never Used Substance Use Topics Alcohol use: No Drug use: Never FAMILY HISTORY Problem Relation Age of Onset other (throat cancer) Mother Heart Father Skin Cancer Brother COPD Brother Skin Cancer Brother Diabetes Son Colon Cancer No Family History PAST SURGICAL HISTORY No date: BACK SURGERY HX Comment: x 3 02/04/2021: COLONOSCOPY FLX DX W/COLLJ SPEC WHEN PFRMD 08/07/2008: COLSC FLX W/RMVL OF TUMOR POLYP LESION SNARE TQ 06/16/2010: EGD TRANSORAL BIOPSY SINGLE/MULTIPLE 11/17/2021: EGD W/O [facility] SPEC VARICIES INJ No date: EXC NEUROMA HAND/FOOT XCP DIGITAL NERVE No date: HERNIA REPAIR HX No date: NEUROPLASTY &/TRANSPOS MEDIAN NRV CARPAL TUNNE; Bilateral Comment: Carpal tunnel decomp 03/13/2020: PAST SURGICAL HISTORY OF Comment: MEDIASTINOSCOPY W/LYMPH NODE BIOPSY No date: REPR DURAL/CSF LEAK W LAMINECTOMY 06/22/2020: RMVL LUNG OTHER THAN PNEUMONECTOMY 1 LOBE LOBECT; Right Comment: Thoracotomy, right middle lobectomy, mediastinal lymph node dissection for lung cancer 1998: SIGMOIDOSCOPY FLX DX W/COLLJ SPEC BR/WA IF PFRMD Comment: Sigmoidoscopy No date: TONSILLECTOMY HX No date: TONSILLECTOMY PRIMARY/SECONDARY <AGE 12 Comment: Tonsillectomy PMH, Social history, family history and surgical history reviewed and updated in EMR REVIEW OF SYSTEMS: CONSTITUTIONAL: No fevers, chills, nightsweats, unintended weight loss HEENT: Denies nasal congestion/sinus symptoms, postnasal drip CARDIOVASCULAR: No chest pain, dyspnea, palpitations, edema. PULM: See HPI GI: No dysphagia/odynophagia, problematic reflux NEURO: No new balance problems, peripheral weakness/paresthesias or numbness of concern. INTEGUMENTARY: No new skin changes PHYSICAL EXAMINATION: BP 107/68 Pulse 73 Resp 16 Wt 197 lb (89.4kg) SpO2 95% General Appearance: Age-appropriate female, NAD. Skin: Skin color, texture, turgor normal, no suspicious rashes or lesions. Head: Normocephalic, no masses, lesions, tenderness or abnormalities. Eyes: Sclera, conjunctiva normal. Oropharynx: No oral lesions, no thrush. Neck: No JVD no adenopathy. Lungs: Not labored, normal to percussion, few crackles on left, no rhonchi or wheezing. Heart: Regular rate rhythm, no murmurs or gallops. Extremities: No edema or clubbing. Assessment/Plan: 1. Postinfectious cough -Clinical history most consistent with postinfectious cough -Sent in prescription for oral course of prednisone 2. Moderate COPD -COPD is clinically stable. She will continue on current inhaled therapy 3. Radiation fibrosis of the lung -Stable radiation fibrosis -No intervention required 4. Malignant neoplasm right middle lobe/lung cancer -No current evidence of disease -Follows with oncology 5. Former cigarette smoker -Former smoker with sequelae of COPD and lung cancer -Continue abstinence Oscar Mireles MD [facility] [place] documented in this encounter [facility] 12-26-2023 Note HNO ID: [id number] Author: OSCAR MIRELES MD Service: ? Author Type: Physician Type: Progress Notes Filed: 12/26/2023 13:32 Note Text: . [facility] [place] Note Patient name: Katrina Serrano PCP: Dennis Marcial MD CC: cough/follow-up COPD HPI: Katrina Serrano 68 year old female former [id number] smoker, quitting in 1999 with PMH significant for COPD, nocturnal oxygen need, GERD, AF, CKD, and history of lung cancer. 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 Was on Durvalumab for 4 doses but discontinued due to severe colitis. Unfortunately surgery complicated by paralysis of right hemidiaphragm, required 3 L oxygen at night. Current inhaled therapy consists of Anoro Ellipta with as needed albuterol. Most recent chest CT shows radiation fibrosis and no evidence of cancer recurrence. Since [place] she has had recent bronchitis with cough productive of large volumes of yellow phlegm and wheezing. No fevers, chills, chest pain or hemoptysis. She did not seek medical care and took [id number] Mucinex with some improvement in her symptoms however she has persistent coughing. Cough does not interfere with her sleep. Some persistent sputum production but not as severe as it was several weeks ago. DME: [employer] 3 L nocturnal DATA: Labs: Component Ref Range AND Units 2 mo ago (10/17/23) WBC 3.9 - 11 K/uL 5.2 RBC 4 - 6 M/uL 3.92 Abnormal HGB 14 - 16.5 g/dL 11.9 Abnormal HCT 39 - 55 % 37.5 Abnormal MCV 79 - 98 fL 95.7 MCH 25.4 - 34.6 pg 30.4 MCHC 30 - 36 g/dL 31.7 PLT 140 - 440 K/uL 252 MPV 7.4 - 10.4 fL 10.0 NEUT % 40 - 74 % 61.7 LYMPH % 20 - 30 % 25.9 MONO % 2 - 8 % 7.3 EOS % 1 - 3 % 4.1 Abnormal BASO % 0 - 1.5 % 0.6 NEUT ABS 1.9 - 8 K/uL 3.2 LYMPH ABS 1.2 - 4 K/uL 1.34 RDW-CV 11.7 - 15.0 % 13.2 RDW-SD 46.9 Immature Gran % % 0.400 Imaging / Diagnostic Studies: DATE OF EXAM: Dec 18 2023 10:55AM [facility] 0541 - CT CHEST WO IVCON / 1. Unchanged postsurgical and postradiation changes detailed above. No new or suspicious pulmonary nodules. No lymphadenopathy. I personally reviewed images which shows stable radiation fibrosis and no suspicious lesions PAST MEDICAL HISTORY No date: Acute gastritis without mention of hemorrhage No date: Arthritis No date: Benign neoplasm of colon No date: Centrilobular emphysema (HCC) No date: Chest pain, unspecified No date: CKD (chronic kidney disease) 10/20/2021: COVID No date: Degeneration of lumbar or lumbosacral intervertebral disc No date: Depression No date: Diaphragm paralysis No date: Dysphagia No date: Esophageal reflux No date: History of transfusion No date: Hypercholesterolemia 05/11/2020: Hypomagnesemia No date: Irritable bowel syndrome No date: Lumbago 03/24/2020: Metastasis to mediastinal lymph node (HCC) No date: Microscopic colitis No date: Other malaise and fatigue No date: Paroxysmal atrial fibrillation (HCC) 03/24/2020: Primary cancer of right lower lobe of lung (HCC) No date: Shortness of breath No date: Unspecified constipation ALLERGIES No Known Allergies traMADol (ULTRAM) 50 mg tablet Take 50 mg by mouth every 6 hours as needed for pain. predniSONE (DELTASONE) 20 mg tablet Take two daily for 5 days. simvastatin (ZOCOR) 20 mg tablet Take 1 tablet by mouth daily at bedtime. apixaban (ELIQUIS) 5 mg tab(s) Take 5 mg by mouth two times a day. sertraline (ZOLOFT) 100 mg tablet Take 1 tablet by mouth once daily. umeclidinium-vilanterol (ANORO ELLIPTA) 62.5-25 mcg/actuation inhaler Inhale 1 Inhalation as instructed once daily. OXYGEN, HOME THERAPY, Inhale as instructed as directed. alendronate (FOSAMAX) 70 mg tablet Take 1 tablet by mouth one time a week. In am with glass of water, on a empty stomach, nothing by mouth or lying down for [address] (PROTONIX) 40 mg tablet Take 1 tablet by mouth once daily. hydrOXYchloroQUINE (PLAQUENIL) 200 mg tablet Take 200 mg by mouth twice daily. amitriptyline (ELAVIL) 50 mg tablet Take 1 tablet by mouth daily at bedtime. metoprolol tartrate, short acting, (LOPRESSOR) 25 mg tablet Take 0.5 tablets by mouth twice daily. albuterol HFA (PROVENTIL HFA, VENTOLIN HFA) 90 mcg/actuation inhaler Inhale 2 Puffs as instructed every 4 hours as needed for wheezing/shortness of breath. ferrous sulfate (IRON ORAL) Take 2 tablets by mouth once daily. Lactobacillus acidophilus (PROBIOTIC ORAL) Take 1 tablet by mouth once daily. cholecalciferol, vitamin D3, (VITAMIN D3 ORAL) Take 1 tablet by mouth once daily. calcium carbonate/vitamin D3 (OS-TESSY 500 + D3 ORAL) Take 1 tablet by mouth once daily. Social History Tobacco Use Smoking status: Former Current packs/day: 0.00 Average packs/day: 1 p (more content not included)... [facility] 12-26-2023 Nurse Note Intake information documented in the prior visit with Dr. Steward today. [facility] 12-26-2023 Nurse Note Intake information documented in the prior visit with Dr. Steward today. documented in this encounter [facility] 12-26-2023 Note HNO ID: [id number] Author: SHANE STEWARD MD Service: ? Author Type: Physician Type: Progress Notes Filed: 12/26/2023 10:29 Note Text: (Elements copied from my note datedFebruary 2023 , have been reviewed and updated where appropriate, and all reflect current assessment and medical decision making from today's encounter, December 26, 2023) HISTORY OF PRESENT ILLNESS: Katrina Serrano is a 67 year old female here for follow up. Per Dr Lambert: DIAGNOSIS: Lung cancer (cT1-2, N2M0) [id number]/ stage IIIA adenocarcinoma of the right middle lobe of lung -Iron deficiency anemia HPI: 66-year-old lady with history of 30 pounds pack smoking quit 20 years ago, hypertension, osteopenia who presented with stage III lung cancer last year. She had a PET CT scan for evaluation of lung nodule on 02/04/2020. PET scan showed increased activity in the lateral right lower lobe lesion SUV 2.9. There was also increased activity in the precarinal level, mediastinum right thoracic prehilum area. SUV 3.2. No other evidence of metastatic disease. She saw Dr. Kira Toscano on 03/12/2020 for mediastinoscopy on 03/13/20 and possible robotic right lower lobe resection Her pathology unfortunately revealed metastatic adenocarcinoma at level 2 mediastinal lymph node. Treatment history: Neoadjuvant 4500 cGy in 25 fractions treating to the 49KGC48.4% isodose line with 6 MV and 7 tarango. IGRT with daily CBCTs. Concurrent chemotherapy with Cisplatin/Etoposide x 2 cycles ( 04/06/20 to 05/12/20 ) SURGICAL HX: 03/13/2020: Mediastinoscopy positive LN, PDL positive 100% 06/22/2020: Right thoracotomy, right middle lobectomy with mediastinal and hilar lymph node dissection, and vascularized pedicle tissue buttress of bronchial stump. [id number] Previous treatment: Durvalumab maintenance x 4 doses ( 09/03/20 - 11/05/20 ); discontinued because of colitis and diarrhea. Took months to resolve. Doing well. Reviewed anemia, she has renal insufficiency. Reviewed surveillance scan. CLINICAL IMPRESSION: History of adenocarcinoma lung neoadjuvant chemoRT, resection, then durvalumab x 2, DIMITRIS RECOMMENDATION/PLAN: 1. Follow expectantly, re scan in [address] chest every 6 months through Jun 2025, then yearly, or as clinically indicated Written and verbal health teaching given to patient, patient verbalizes understanding and agrees with treatment plan. PAST MEDICAL HISTORY No date: Acute gastritis without mention of hemorrhage No date: Arthritis No date: Benign neoplasm of colon No date: Centrilobular emphysema (HCC) No date: Chest pain, unspecified No date: CKD (chronic kidney disease) 10/20/2021: COVID No date: Degeneration of lumbar or lumbosacral intervertebral disc No date: Depression No date: Diaphragm paralysis No date: Dysphagia No date: Esophageal reflux No date: History of transfusion No date: Hypercholesterolemia 05/11/2020: Hypomagnesemia No date: Irritable bowel syndrome No date: Lumbago 03/24/2020: Metastasis to mediastinal lymph node (HCC) No date: Microscopic colitis No date: Other malaise and fatigue No date: Paroxysmal atrial fibrillation (HCC) 03/24/2020: Primary cancer of right lower lobe of lung (HCC) No date: Shortness of breath No date: Unspecified constipation PAST SURGICAL HISTORY No date: BACK SURGERY HX Comment: x 3 02/04/2021: COLONOSCOPY FLX DX W/COLLJ SPEC WHEN PFRMD 08/07/2008: COLSC FLX W/RMVL OF TUMOR POLYP LESION SNARE TQ 06/16/2010: EGD TRANSORAL BIOPSY SINGLE/MULTIPLE 11/17/2021: EGD W/O [facility] SPEC VARICIES INJ No date: EXC NEUROMA HAND/FOOT XCP DIGITAL NERVE No date: HERNIA REPAIR HX No date: NEUROPLASTY AND/TRANSPOS MEDIAN NRV CARPAL TUNNE; Bilateral Comment: Carpal tunnel decomp 03/13/2020: PAST SURGICAL HISTORY OF Comment: MEDIASTINOSCOPY W/LYMPH NODE BIOPSY No date: REPR DURAL/CSF LEAK W LAMINECTOMY 06/22/2020: RMVL LUNG OTHER THAN PNEUMONECTOMY 1 LOBE LOBECT; Right Comment: Thoracotomy, right middle lobectomy, mediastinal lymph node dissection for lung cancer 1998: SIGMOIDOSCOPY FLX DX W/COLLJ SPEC BR/WA IF PFRMD Comment: Sigmoidoscopy No date: TONSILLECTOMY HX No date: TONSILLECTOMY PRIMARY/SECONDARY Comment: Tonsillectomy FAMILY HISTORY Problem Relation Age of Onset other (throat cancer) Mother Heart Father Skin Cancer Brother COPD Brother Skin Cancer Brother Diabetes Son Colon Cancer No Family History Social History Tobacco Use Smoking status: Former Current packs/day: 0.00 Average packs/day: 1 pack/day for 30.0 years (30.0 ttl pk-yrs) Types: Cigarettes Start date: 03/24/1970 Quit date: 03/24/2000 Years since quittin.7 Smokeless tobacco: Never Vaping Use Vaping status: Never Used Substance Use Topics Alcohol use: No Drug use: Never ALLERGIES: ALLERGIES No Known Allergies CURRENT OUTPATIENT MEDICATIONS: traMADol (ULTRAM) 50 mg tablet Take 50 mg by mouth every 6 hours as needed fo (more content not included)... [facility] 12-26-2023 History of Present illness Narrative (Elements copied from my note datedFebruary 2023 , have been reviewed and updated where appropriate, and all reflect current assessment and medical decision making from today's encounter, December 26, 2023) HISTORY OF PRESENT ILLNESS: Katrina Serrano is a 67 year old female here for follow up. Per Dr Lambert: DIAGNOSIS: Lung cancer (cT1-2, N2M0) [id number]/ stage IIIA adenocarcinoma of the right middle lobe of lung -Iron deficiency anemia HPI: 66-year-old lady with history of 30 pounds pack smoking quit 20 years ago, hypertension, osteopenia who presented with stage III lung cancer last year. She had a PET CT scan for evaluation of lung nodule on 02/04/2020. PET scan showed increased activity in the lateral right lower lobe lesion SUV 2.9. There was also increased activity in the precarinal level, mediastinum right thoracic prehilum area. SUV 3.2. No other evidence of metastatic disease. She saw Dr. Kira Toscano on 03/12/2020 for mediastinoscopy on 03/13/20 and possible robotic right lower lobe resection Her pathology unfortunately revealed metastatic adenocarcinoma at level 2 mediastinal lymph node. Treatment history: Neoadjuvant 4500 cGy in 25 fractions treating to the 97&99.4% isodose line with 6 MV and 7 tarango. IGRT with daily CBCTs. Concurrent chemotherapy with Cisplatin/Etoposide x 2 cycles ( 04/06/20 to 05/12/20 ) SURGICAL HX: 03/13/2020: Mediastinoscopy positive LN, PDL positive 100% 06/22/2020: Right thoracotomy, right middle lobectomy with mediastinal and hilar lymph node dissection, and vascularized pedicle tissue buttress of bronchial stump. [id number] Previous treatment: Durvalumab maintenance x 4 doses ( 09/03/20 - 11/05/20 ); discontinued because of colitis and diarrhea. Took months to resolve. Doing well. Reviewed anemia, she has renal insufficiency. Reviewed surveillance scan. CLINICAL IMPRESSION: History of adenocarcinoma lung neoadjuvant chemoRT, resection, then durvalumab x 2, DIMITRIS RECOMMENDATION/PLAN: 1. Follow expectantly, re scan in [address] chest every 6 months through Jun 2025, then yearly, or as clinically indicated Written and verbal health teaching given to patient, patient verbalizes understanding and agrees with treatment plan. PAST MEDICAL HISTORY No date: Acute gastritis without mention of hemorrhage No date: Arthritis No date: Benign neoplasm of colon No date: Centrilobular emphysema (HCC) No date: Chest pain, unspecified No date: CKD (chronic kidney disease) 10/20/2021: COVID No date: Degeneration of lumbar or lumbosacral intervertebral disc No date: Depression No date: Diaphragm paralysis No date: Dysphagia No date: Esophageal reflux No date: History of transfusion No date: Hypercholesterolemia 05/11/2020: Hypomagnesemia No date: Irritable bowel syndrome No date: Lumbago 03/24/2020: Metastasis to mediastinal lymph node (HCC) No date: Microscopic colitis No date: Other malaise and fatigue No date: Paroxysmal atrial fibrillation (HCC) 03/24/2020: Primary cancer of right lower lobe of lung (HCC) No date: Shortness of breath No date: Unspecified constipation PAST SURGICAL HISTORY No date: BACK SURGERY HX Comment: x 3 02/04/2021: COLONOSCOPY FLX DX W/COLLJ SPEC WHEN PFRMD 08/07/2008: COLSC FLX W/RMVL OF TUMOR POLYP LESION SNARE TQ 06/16/2010: EGD TRANSORAL BIOPSY SINGLE/MULTIPLE 11/17/2021: EGD W/O [facility] SPEC VARICIES INJ No date: EXC NEUROMA HAND/FOOT XCP DIGITAL NERVE No date: HERNIA REPAIR HX No date: NEUROPLASTY &/TRANSPOS MEDIAN NRV CARPAL TUNNE; Bilateral Comment: Carpal tunnel decomp 03/13/2020: PAST SURGICAL HISTORY OF Comment: MEDIASTINOSCOPY W/LYMPH NODE BIOPSY No date: REPR DURAL/CSF LEAK W LAMINECTOMY 06/22/2020: RMVL LUNG OTHER THAN PNEUMONECTOMY 1 LOBE LOBECT; Right Comment: Thoracotomy, right middle lobectomy, mediastinal lymph node dissection for lung cancer 1998: SIGMOIDOSCOPY FLX DX W/COLLJ SPEC BR/WA IF PFRMD Comment: Sigmoidoscopy No date: TONSILLECTOMY HX No date: TONSILLECTOMY PRIMARY/SECONDARY <AGE 12 Comment: Tonsillectomy FAMILY HISTORY Problem Relation Age of Onset other (throat cancer) Mother Heart Father Skin Cancer Brother COPD Brother Skin Cancer Brother Diabetes Son Colon Cancer No Family History Social History Tobacco Use Smoking status: Former Current packs/day: 0.00 Average packs/day: 1 pack/day for 30.0 years (30.0 ttl pk-yrs) Types: Cigarettes Start date: 03/24/1970 Quit date: 03/24/2000 Years since quittin.7 Smokeless tobacco: Never Vaping Use Vaping status: Never Used Substance Use Topics Alcohol use: No Drug use: Never ALLERGIES: ALLERGIES No Known Allergies CURRENT OUTPATIENT MEDICATIONS: traMADol (ULTRAM) 50 mg tablet Take 50 mg by mouth every 6 hours as needed for pain. simvastatin (ZOCOR) 20 mg tablet Take 1 tablet by mouth daily at bedtime. apixaban (ELIQUIS) 5 mg tab(s) Take 5 mg by mouth two times a day. sertraline (ZOLOFT) 100 mg tablet Take 1 tablet by mouth once daily. umeclidinium-vilanterol (ANORO ELLIPTA) 62.5-25 mcg/actuation inhaler Inhale 1 Inhalation as instructed once daily. OXYGEN, HOME THERAPY, Inhale as instructed as directed. alendronate (FOSAMAX) 70 mg tablet Take 1 tablet by mouth one time a week. In am with glass of water, on a empty stomach, nothing by mouth or lying down for [address] (PROTONIX) 40 mg tablet Take 1 tablet by mouth once daily. hydrOXYchloroQUINE (PLAQUENIL) 200 mg tablet Take 200 mg by mouth twice daily. amitriptyline (ELAVIL) 50 mg tablet Take 1 tablet by mouth daily at bedtime. metoprolol tartrate, short acting, (LOPRESSOR) 25 mg tablet Take 0.5 tablets by mouth twice daily. albuterol HFA (PROVENTIL HFA, VENTOLIN HFA) 90 mcg/actuation inhaler Inhale 2 Puffs as instructed every 4 hours as needed for wheezing/shortness of breath. ferrous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 simvastatin (ZOCOR) 20 mg tablet Take 1 tablet by mouth daily at bedtime. umeclidinium-vilanterol (ANORO ELLIPTA) 62.5-25 mcg/actuation inhaler Inhale 1 Inhalation as instructed once daily. vancomycin (VANCOCIN) 125 mg capsule take 1 capsule by mouth three times a day for 10 days then 1 caps... (REFER TO PRESCRIPTION NOTES). (Patient not taking: Reported on 06/21/2023) OXYGEN, HOME THERAPY, Inhale as instructed as directed. alendronate (FOSAMAX) 70 mg tablet Take 1 tablet by mouth one time a week. In am with glass of water, on a empty stomach, nothing by mouth or lying down for 30 minutes dicyclomine (BENTYL) 10 mg capsule TAKE 1 CAPSULE BY MOUTH BEFORE MEALS AND AT BEDTIME. clonazePAM (KLONOPIN) 0.5 mg tablet Take 1 tablet by mouth twice daily as needed for up to [address] (PROTONIX) 40 mg tablet Take 1 tablet by mouth once daily. sertraline (ZOLOFT) 50 mg tablet Take 1 tablet by mouth twice daily. hydrOXYchloroQUINE (PLAQUENIL) 200 mg tablet Take 200 mg by mouth twice daily. rivaroxaban (XARELTO) 20 mg tablet Take 1 tablet by mouth once daily. amitriptyline (ELAVIL) 50 mg tablet Take 1 tablet by mouth daily at bedtime. metoprolol tartrate, short acting, (LOPRESSOR) 25 mg tablet Take 0.5 tablets by mouth twice daily. albuterol HFA (PROVENTIL HFA, VENTOLIN HFA) 90 mcg/actuation inhaler Inhale 2 Puffs as instructed every 4 hours as needed for wheezing/shortness of breath. ferrous sulfate (IRON ORAL) Take 65 mg by mouth once daily. Lactobacillus acidophilus (PROBIOTIC ORAL) Take 1 tablet by mouth once daily. cholecalciferol, vitamin D3, (VITAMIN D3 ORAL) Take 1 tablet by mouth once daily. calcium carbonate/vitamin D3 (OS-TESSY 500 + D3 ORAL) Take 1 tablet by mouth once daily. Social History Tobacco Use Smoking status: Former Packs/day: 1.00 Years: 30.00 Additional pack years: 0.00 Total pack years: 30.00 Types: Cigarettes Quit date: 03/24/2000 Years since quittin.2 Smokeless tobacco: Never Vaping Use Vaping Use: Never used Substance Use Topics Alcohol use: No Drug use: Never Family History Problem Relation Age of Onset other (throat cancer) Mother Heart Father Skin Cancer Brother COPD Brother Skin Cancer Brother Diabetes Son Colon Cancer No Family History PAST SURGICAL HISTORY Procedure Laterality Date BACK SURGERY HX x 3 COLONOSCOPY FLX DX W/COLLJ SPEC WHEN PFRMD 02/04/2021 COLSC FLX W/RMVL OF TUMOR POLYP LESION SNARE TQ 08/07/2008 EGD TRANSORAL BIOPSY SINGLE/MULTIPLE 06/16/2010 EGD W/O BRSH SPEC VARICIES INJ 11/17/2021 EXC NEUROMA HAND/FOOT XCP DIGITAL NERVE HERNIA REPAIR HX NEUROPLASTY &/TRANSPOS MEDIAN NRV CARPAL TUNNE Bilateral Carpal tunnel decomp PAST SURGICAL HISTORY OF 03/13/2020 MEDIASTINOSCOPY W/LYMPH NODE BIOPSY REPR DURAL/CSF LEAK W LAMINECTOMY RMVL LUNG OTHER THAN PNEUMONECTOMY 1 LOBE LOBECT Right 06/22/2020 Thoracotomy, right middle lobectomy, mediastinal lymph node dissection for lung cancer SIGMOIDOSCOPY FLX DX W/COLLJ SPEC BR/WA IF PFRMD 1998 Sigmoidoscopy TONSILLECTOMY HX TONSILLECTOMY PRIMARY/SECONDARY <AGE 12 Tonsillectomy I reviewed the past medical history, family history, social history and surgical history with changes noted above and updated in EMR. IMMUNIZATIONS Prevnar - 2022 Pneumovax 23 - xx Influenza - 2022 COVID-19 - most recent 03/2023 RSV - 2023 ROS: General: No fevers, chills or night sweats. No unintended weight loss. Fatigue. Eyes, Ears, nose, throat: No post nasal drip, rhinorrhea, purulent nasal discharge, epistaxis. No hoarseness. Vision stable. Cardiac: No angina, edema, orthopnea, chest pain, palpitations. Resp: See HPI. GI: No heartburn, dysphagia. Musculoskeletal: Chronic back pain. Neuro: No headache, focal weakness, tremor. Skin: No skin changes or rash. Otherwise negative. PHYSICAL EXAMINATION: BP (P) 107/67 Pulse (P) 77 Wt (P) 83.5 kg (184 lb) SpO2 (P) 99% BMI (P) 29.70 kg/m Gen: No acute distress. Cooperative with examination. HEENT: Normocephalic. Sclera, conjunctiva clear. Oral hygeine and dentition good. No thrush. Resp: No stridor, accessory respiratory muscle use, supra-sternal or intercostal retractions. No wheezes, crackles. CV: Regular rythm. Heart tones normal. Radial pulses normal. MSK: No kyphoscoliosis. Ext: Warm and well perfused. No clubbing, cyanosis, edema. Skin: No rash, ecchymoses. Neuro: Mental status normal. Affect normal. No tremor. DATA: CT chest, 06/12/2023 IMPRESSION: No CT evidence of acute abnormality. No new suspicious pulmonary nodules. No thoracic lymphadenopathy. Comparison: CT chest 10/10/2022 RESULT: Limitations: None. Lines, tubes, and devices: None. Lung parenchyma and airways: Postoperative changes from a right lower lobectomy. Stable consolidation with fibrosis and bronchiectasis in the right perihilar region consistent with prior radiation therapy. No new suspicious pulmonary nodule. The central airways are patent. Pleural space: No pleural effusion. No pleural thickening. Lower neck, lymph nodes, and mediastinum: The imaged thyroid gland is normal. No lymphadenopathy in the supraclavicular, axillary, mediastinal, or hilar regions. Heart, pericardium, and thoracic vessels: The thoracic aorta and main pulmonary artery are normal in caliber. The cardiac chambers are normal in size. Mild coronary artery atherosclerotic calcifications are noted, although the study is not optimized for coronary assessment. No pericardial effusion or thickening. Bones and soft tissues: No destructive bone lesion. Degenerative disease of the thoracic spine. Stable compression fracture of the vertebral body of T12. Chest wall is unremarkable. Upper abdomen: No abnormality in the imaged upper abdomen. Electro Mechanical Technologist (topogram) images: No additional findings. ASSESSMENT/PLAN: 1. Moderate COPD (chronic obstructive pulmonary disease) (HCC) - ICD9: 496, ICD10: J44.9 (primary diagnosis) Continue Anoro with as needed Albuterol. Up to date on annual influenza, pneumococcal, RSV, and Covid 19 vaccines. 2. Paralyzed hemidiaphragm - ICD9: 519.4, ICD10: J98.6 3. Nocturnal hypoxemia - ICD9: 327.24, ICD10: G47.34 Patient is compliant and benefits from supplemental oxygen. 4. Malignant neoplasm of right lung, unspecified part of lung (HCC) - ICD9: 162.9, ICD10: C34.91 No sign of recurrence. Next CT chest in December 2023. Follow up with oncology as directed. 5. Former cigarette smoker - ICD9: V15.82, ICD10: Z87.891 Continued abstinence. Portions of this documentation were copied and pasted from previous office visit notes in order to provide a cohesive continuity of the history. The note has been reviewed and edited and updated as necessary. Lesley Boucher PA-C documented in this encounter [facility] 06-21-2023 Nurse Note Intake information documente.d in the prior visit with Dr. Steward today. documented in this encounter [facility] 06-21-2023 History of Present illness Narrative HISTORY OF PRESENT ILLNESS: Katrina Serrano is a 67 year old female here for follow up. 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 She had a PET CT scan for evaluation of lung nodule on 02/04/2020. PET scan showed increased activity in the lateral right lower lobe lesion SUV 2.9. There was also increased activity in the precarinal level, mediastinum right thoracic prehilum area. SUV 3.2. No other evidence of metastatic disease. She saw Dr. Kira Toscano on 03/12/2020 for mediastinoscopy on 03/13/20 and possible robotic right lower lobe resection Her pathology unfortunately revealed metastatic adenocarcinoma at level 2 mediastinal lymph node. Treatment history: Neoadjuvant 4500 cGy in 25 fractions treating to the 97&99.4% isodose line with 6 MV and 7 tarango. IGRT with daily CBCTs. Concurrent chemotherapy with Cisplatin/Etoposide x 2 cycles ( 04/06/20 to 05/12/20 ) SURGICAL HX: 03/13/2020: Mediastinoscopy positive LN, PDL positive 100% 06/22/2020: Right thoracotomy, right middle lobectomy with mediastinal and hilar lymph node dissection, and vascularized pedicle tissue buttress of bronchial stump. [id number] Previous treatment: Durvalumab maintenance x 4 doses ( 09/03/20 - 11/05/20 ); discontinued because of colitis and diarrhea. Took months to resolve. Doing well. Reviewed anemia, she has renal insufficiency. Reviewed surveillance scan. CLINICAL IMPRESSION: History of adenocarcinoma lung as above, DIMITRIS RECOMMENDATION/PLAN: 1. Follow expectantly, re scan in [address] chest every 6 months through Jun 2025, then yearly, or as clinically indicated Written and verbal health teaching given to patient, patient verbalizes understanding and agrees with treatment plan. 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 Microscopic colitis Other malaise and fatigue Paroxysmal atrial fibrillation (HCC) Primary cancer of right lower lobe of lung (HCC) 03/24/2020 Shortness of breath Unspecified constipation PAST SURGICAL HISTORY Procedure Laterality Date BACK SURGERY HX x 3 COLONOSCOPY FLX DX W/COLLJ SPEC WHEN PFRMD 02/04/2021 COLSC FLX W/RMVL OF TUMOR POLYP LESION SNARE TQ 08/07/2008 EGD TRANSORAL BIOPSY SINGLE/MULTIPLE 06/16/2010 EGD W/O BRSH SPEC VARICIES INJ 11/17/2021 EXC NEUROMA HAND/FOOT XCP DIGITAL NERVE HERNIA REPAIR HX NEUROPLASTY &/TRANSPOS MEDIAN NRV CARPAL TUNNE Bilateral Carpal tunnel decomp PAST SURGICAL HISTORY OF 03/13/2020 MEDIASTINOSCOPY W/LYMPH NODE BIOPSY REPR DURAL/CSF LEAK W LAMINECTOMY RMVL LUNG OTHER THAN PNEUMONECTOMY 1 LOBE LOBECT Right 06/22/2020 Thoracotomy, right middle lobectomy, mediastinal lymph node dissection for lung cancer SIGMOIDOSCOPY FLX DX W/COLLJ SPEC BR/WA IF PFRMD 1998 Sigmoidoscopy TONSILLECTOMY HX TONSILLECTOMY PRIMARY/SECONDARY <AGE 12 Tonsillectomy FAMILY HISTORY Problem Relation Age of Onset other (throat cancer) Mother Heart Father Skin Cancer Brother COPD Brother Skin Cancer Brother Diabetes Son Colon Cancer No Family History Social History Tobacco Use Smoking status: Former Packs/day: 1.00 Years: 30.00 Additional pack years: 0.00 Total pack years: 30.00 Types: Cigarettes Quit date: 03/24/2000 Years since quittin.2 Smokeless tobacco: Never Vaping Use Vaping Use: Never used Substance Use Topics Alcohol use: No Drug use: Never ALLERGIES: ALLERGIES No Known Allergies CURRENT OUTPATIENT MEDICATIONS: traMADol (ULTRAM) 50 mg tablet Take 1 tablet by mouth every 6 hours as needed for pain for up to 90 days. simvastatin (ZOCOR) 20 mg tablet Take 1 tablet by mouth daily at bedtime. umeclidinium-vilanterol (ANORO ELLIPTA) 62.5-25 mcg/actuation inhaler Inhale 1 Inhalation as instructed once daily. OXYGEN, HOME THERAPY, Inhale as instructed as directed. alendronate (FOSAMAX) 70 mg tablet Take 1 tablet by mouth one time a week. In am with glass of water, on a empty stomach, nothing by mouth or lying down for 30 minutes dicyclomine (BENTYL) 10 mg capsule TAKE 1 CAPSULE BY MOUTH BEFORE MEALS AND AT BEDTIME. clonazePAM (KLONOPIN) 0.5 mg tablet Take 1 tablet by mouth twice daily as needed for up to [address] (PROTONIX) 40 mg tablet Take 1 tablet by mouth once daily. sertraline (ZOLOFT) 50 mg tablet Take 1 tablet by mouth twice daily. hydrOXYchloroQUINE (PLAQUENIL) 200 mg tablet Take 200 mg by mouth twice daily. rivaroxaban (XARELTO) 20 mg tablet Take 1 tablet by mouth once daily. amitriptyline (ELAVIL) 50 mg tablet Take 1 tablet by mouth daily at bedtime. metoprolol tartrate, short acting, (LOPRESSOR) 25 mg tablet Take 0.5 tablets by mouth twice daily. albuterol HFA (PROVENTIL HFA, VENTOLIN HFA) 90 mcg/actuation inhaler Inhale 2 Puffs as instructed every 4 hours as needed for wheezing/shortness of breath. ferrous sulfate (IRON ORAL) Take 65 mg by mouth once daily. Lactobacillus acidophilus (PROBIOTIC ORAL) Take 1 tablet by mouth once daily. cholecalciferol, vitamin D3, (VITAMIN D3 ORAL) Take 1 tablet by mouth once daily. calcium carbonate/vitamin D3 (OS-TESSY 500 + D3 ORAL) Take 1 tablet by mouth once daily. vancomycin (VANCOCIN) 125 mg capsule take 1 capsule by mouth three times a day for 10 days then 1 caps... (REFER TO PRESCRIPTION NOTES). (Patient not taking: Reported on 06/21/2023) REVIEW OF SYSTEMS: GENERAL: No fever, night sweats, weight loss or malaise. All other reviewed and negative other than HPI. PHYSICAL EXAMINATION: VITAL SIGNS: BP 107/67 Pulse 77 Temp (Src) 97.1 (Temporal) Wt 184 lb 8 oz (83.7kg) SpO2 99% GENERAL APPEARANCE: Well appearing, in no acute distress, alert and oriented x3, well-hydrated, well nourished. I spent a total of 30 minutes on the date of the service which included preparing to see the patient, [id number] patient care, completing clinical documentation, obtaining and/or reviewing separately obtained history, counseling and educating the patient/family/caregiver, ordering medications, tests, or procedures, independently interpreting results (not separately reported), and communicating results to the patient/family/caregiver. Electronically Signed: Shane Steward MD June 21, 2023 documented in this encounter [facility] 06-19-2023 Nurse Note Patient continues to have intermittent cramping abdominal pain, but states she feels well enough to go home. States pain has lessened since she first came out of procedure. documented in this encounter [facility] 06-19-2023 History and physical note HISTORY AND PHYSICAL EXAMINATION SERVICE DATE: 06/19/2023 SERVICE TIME: 8:38 AM PRIMARY CARE PHYSICIAN: Dennis Marcial MD REASON FOR VISIT: Katrina Serrano is a 67 year old female who is scheduled for colonoscopy at the request of Dr. Posadas for routine H&P. The reason for this visit is to perform a comprehensive review of the patient's past medical history, assess their current health status and obtain any additional testing required based on anesthesia guidelines. We will also identify any potential anesthesia problems or contraindications to the planned procedure. The patient has the following: ACTIVE PROBLEM LIST Dysphagia Chest Pain, Unspecified Shortness of Breath Other Malaise and Fatigue Recurrent Major Depressive Disorder, in Remission (Hcc) Degeneration of Lumbar Or Lumbosacral Intervertebral Disc Esophageal Reflux Lumbago Benign Neoplasm of Colon Unspecified Constipation Microscopic Colitis Acute Gastritis Without Mention of Hemorrhage Lung Nodule Lymphadenopathy, Mediastinal Former Smoker Primary Cancer of Right Lower Lobe of Lung (Hcc) Metastasis to Mediastinal Lymph Node (Hcc) Hypomagnesemia Paroxysmal Atrial Fibrillation (Hcc) Pain, Postoperative, Acute Discharge Planning Issues Nsclc of Right Lung (Hcc) Serena (Acute Kidney Injury) (Hcc) Infected Tooth Centrilobular Emphysema (Hcc) Paralyzed Hemidiaphragm Iron Deficiency Anemia Secondary to Inadequate Dietary Iron Intake Stage 3 Chronic Kidney Disease (Hcc) Osteoarthrosis Osteoporosis Irritable Bowel Syndrome Insomnia Facial Nerve Palsy Hypertension, Essential Depression Degeneration of Intervertebral Disc Contusion of Knee and Lower Leg Atherosclerosis of Aorta (Hcc) Restless Leg Syndrome Steatosis of Liver Pancytopenia (Hcc) Pure Hypercholesterolemia, Unspecified Radiation Pneumonitis (Hcc) Rib Pain Sinusitis Stage Iii Squamous Cell Carcinoma of Lung (Hcc) Transient Hypotension Vitamin D Deficiency Aci (Adrenal Cortical Insufficiency) (Hcc) Polyarthritis 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 difficile diarrhea Iron deficiency anemia, unspecified iron deficiency anemia type Elevated fecal calprotectin HPI: Patient is a 67 year old female who presents to endo for the above procedure. Pt has been treated for C diff 4 months ago. She also has ONESIMO. Denies abdominal pain, Nausea, vomiting, constipation, hemtochezia at this time. Patient agrees to proceed with procedure. 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 Microscopic colitis Other malaise and fatigue Paroxysmal atrial fibrillation (HCC) Primary cancer of right lower lobe of lung (HCC) 03/24/2020 Shortness of breath Unspecified constipation PAST SURGICAL HISTORY Procedure Laterality Date BACK SURGERY HX x 3 COLONOSCOPY FLX DX W/COLLJ SPEC WHEN PFRMD 02/04/2021 COLSC FLX W/RMVL OF TUMOR POLYP LESION SNARE TQ 08/07/2008 EGD TRANSORAL BIOPSY SINGLE/MULTIPLE 06/16/2010 EGD W/O BRSH SPEC VARICIES INJ 11/17/2021 EXC NEUROMA HAND/FOOT XCP DIGITAL NERVE HERNIA REPAIR HX NEUROPLASTY &/TRANSPOS MEDIAN NRV CARPAL TUNNE Bilateral Carpal tunnel decomp PAST SURGICAL HISTORY OF 03/13/2020 MEDIASTINOSCOPY W/LYMPH NODE BIOPSY REPR DURAL/CSF LEAK W LAMINECTOMY RMVL LUNG OTHER THAN PNEUMONECTOMY 1 LOBE LOBECT Right 06/22/2020 Thoracotomy, right middle lobectomy, mediastinal lymph node dissection for lung cancer SIGMOIDOSCOPY FLX DX W/COLLJ SPEC BR/WA IF PFRMD 1998 Sigmoidoscopy TONSILLECTOMY HX TONSILLECTOMY PRIMARY/SECONDARY <AGE 12 Tonsillectomy FAMILY HISTORY Problem Relation Age of Onset other (throat cancer) Mother Heart Father Skin Cancer Brother COPD Brother Skin Cancer Brother Diabetes Son Colon Cancer No Family History SOCIAL HISTORY: Social History Tobacco Use Smoking status: Former Packs/day: 1.00 Years: 30.00 Additional pack years: 0.00 Total pack years: 30.00 Types: Cigarettes Quit date: 03/24/2000 Years since quittin.2 Smokeless tobacco: Never Vaping Use Vaping Use: Never used Substance Use Topics Alcohol use: No Drug use: Never Prior to Admission medications as of 05/10/23 1626 Medication Sig Last Dose Taking traMADol (ULTRAM) 50 mg tablet Take 1 tablet by mouth every 6 hours as needed for pain for up to 90 days. 06/18/2023 Yes simvastatin (ZOCOR) 20 mg tablet Take 1 tablet by mouth daily at bedtime. 06/19/2023 Yes umeclidinium-vilanterol (ANORO ELLIPTA) 62.5-25 mcg/actuation inhaler Inhale 1 Inhalation as instructed once daily. 06/19/2023 Yes OXYGEN, HOME THERAPY, Inhale as instructed as directed. 06/18/2023 Yes alendronate (FOSAMAX) 70 mg tablet Take 1 tablet by mouth one time a week. In am with glass of water, on a empty stomach, nothing by mouth or lying down for 30 minutes Past Week Yes clonazePAM (KLONOPIN) 0.5 mg tablet Take 1 tablet by mouth twice daily as needed for up to 90 days. 06/18/[address] (PROTONIX) 40 mg tablet Take 1 tablet by mouth once daily. 06/19/2023 Yes sertraline (ZOLOFT) 50 mg tablet Take 1 tablet by mouth twice daily. 06/18/2023 Yes hydrOXYchloroQUINE (PLAQUENIL) 200 mg tablet Take 200 mg by mouth twice daily. 06/18/2023 Yes metoprolol tartrate, short acting, (LOPRESSOR) 25 mg tablet Take 0.5 tablets by mouth twice daily. 06/19/2023 Yes albuterol HFA (PROVENTIL HFA, VENTOLIN HFA) 90 mcg/actuation inhaler Inhale 2 Puffs as instructed every 4 hours as needed for wheezing/shortness of breath. Past Week Yes ferrous sulfate (IRON ORAL) Take 65 mg by mouth once daily. Past Week Yes Lactobacillus acidophilus (PROBIOTIC ORAL) Take 1 tablet by mouth once daily. 06/18/2023 Yes cholecalciferol, vitamin D3, (VITAMIN D3 ORAL) Take 1 tablet by mouth once daily. 06/18/2023 Yes calcium carbonate/vitamin D3 (OS-TESSY 500 + D3 ORAL) Take 1 tablet by mouth once daily. 06/18/2023 Yes vancomycin (VANCOCIN) 125 mg capsule take 1 capsule by mouth three times a day for 10 days then 1 caps... (REFER TO PRESCRIPTION NOTES). Patient not taking: Reported on 06/19/2023 Not Taking dicyclomine (BENTYL) 10 mg capsule TAKE 1 CAPSULE BY MOUTH BEFORE MEALS AND AT BEDTIME. Patient not taking: Reported on 06/19/2023 Not Taking rivaroxaban (XARELTO) 20 mg tablet Take 1 tablet by mouth once daily. 06/14/2023 amitriptyline (ELAVIL) 50 mg tablet Take 1 tablet by mouth daily at bedtime. Unknown No medication comments found. ALLERGIES No Known Allergies REVIEW OF SYSTEMS: PAIN ASSESSMENT: Pain Pain Level: 0 Pain Assessment: Assessment Tool: Verbal (Numeric Rating or Visual Analog Scale) General: Denies fever, chills, and unexpected weight change. Neuro: Denies dizziness and headaches. Respiratory: Denies SOB or productive cough. +COPD Cardiovascular: Denies CP and palpitations. +HLD, +Afib, +HTN GI: see HPI : Denies dysuria. +CKD Endocrine: No history of diabetes or thyroid conditions. Hematology: Denies history of bleeding or clotting disorder. No known autoimmune disorders +anemia Musculoskeletal: +fibromyalgia Skin: Denies open sores and rashes. Objective PHYSICAL EXAM: VITALS: BP 103/91 Pulse 65 Temp (Src) 97.3 (Temporal) Resp 16 Ht 5' 6 (1.68m) Wt 185 lb (83.9kg) SpO2 94% BMI 29.87 kg/(m^2). O2 Therapy: Room Air General: NAD. Cooperative. Skin: Skin is warm, no rashes, and no open sores. HEENT: Normocephalic. Cardiovascular: Normal S1 & S2. RRR, No murmur. Lungs: CTA Bilaterally. No respiratory distress. Abdomen: Soft, nontender, non-distended. Bowel sounds normal in all four quadrants. Extremities: No edema. Neurological: Alert and oriented to person, place, and time. Pulses: radial pulses +2 Diagnostic tests reviewed for today's visit: Lab Value Units Date High Low HB 11.8 g/dL 01/30/2023 15.5 11.5 HCT 37.2 % 01/30/2023 46.0 36.0 WBC 6.80 k/uL 01/30/2023 11.00 3.70 PLT 315 k/uL 01/30/2023 400 150 NA 140 mmol/L 01/30/2023 145 136 K 4.2 mmol/L 01/30/2023 5.1 3.5 GLUC 88 mg/dL 01/30/2023 100 70 BUN 17 mg/dL 01/30/2023 26 7 CREAT 1.56 mg/dL 01/30/2023 0.95 0.51 PTSEC No results within date range. INR No results within date range. APTT No results within date range. ALT 13 U/L 01/30/2023 61 13 AST 24 U/L 01/30/2023 34 8 TBILI 0.3 mg/dL 01/30/2023 1.0 0.2 TSH No results within date range. Lab Value Units Date High Low HCGQT No results within date range. UHCG No results within date range. HCG, BODY* No results within date range. Lab Value Units Date High Low ABORHD No results within date range. ABSCREEN No results within date range. Assessment/Plan ANESTHESIA FINDINGS: Significant Anesthesia Considerations: None Patient has the following medical conditions which may affect trcai-operative course Problem List Items Addressed This Visit Cardiovascular Paroxysmal atrial fibrillation (HCC) Overview History: During evaluation with pulmonology 05/25/20, found to have fast, irregular heart rhythm, prompted to go to local ED for evaluation, found to be new atrial fibrillation with RVR, spontaneously converted to SR. Ultimately admitted to [facility] 05/26/20 where cardiology evaluated her added amiodarone. Anticoagulation deferred due to thrombocytopenia and anemia. Prior to admission was on amiodarone 400 mg daily and metoprolol 12.5 mg daily. Assessment: SR rate in the 80s Plan: -Rate control: continue home amiodarone 400 mg daily and metoprolol 12.5 mg BID -Monitor cardiac rhythm -Correct electrolytes to keep K over 4 and MG over 2 Current Assessment & Plan Rate controlled with metoprolol Anticoagulated with xarelto Hypertension, essential Current Assessment & Plan Controlled with metoprolol Pure hypercholesterolemia, unspecified Overview Comment on above: improved Current Assessment & Plan Statin, continue as prescribed Pulmonary Centrilobular emphysema (HCC) Current Assessment & Plan Controlled with Anoro and albuterol. Uses rescue inhaler rarely. Managed by pulm. Denies hospitalization or pneumonia in the last 6 months Gastrointestinal Esophageal reflux Current Assessment & Plan Controlled with pantoprazole Nephrology Stage 3 chronic kidney disease (HCC) Current Assessment & Plan Creatinine Date Value Ref Range Status 01/30/2023 1.56 (H) 0.51 - 0.95 mg/dL Final Comment: Patients receiving either N-Acetylcysteine (NAC) or Metamizole prior to venipuncture, may have falsely depressed results. 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 Other Visit Diagnoses C. difficile diarrhea Relevant Orders COLONOSCOPY DIAGNOSTIC Iron deficiency anemia, unspecified iron deficiency anemia type Relevant Orders COLONOSCOPY DIAGNOSTIC Elevated fecal calprotectin Relevant Orders COLONOSCOPY DIAGNOSTIC PLAN Procedure Diagnosis: C. difficile diarrhea [A04.72] Iron deficiency anemia, unspecified iron deficiency anemia type [D50.9] Elevated fecal calprotectin [R19.5] Planned Procedure: colonoscopy Planned Anesthetic: JAMIL I spent a total of 20 minutes on the date of the service which included preparing to see the patient, [id number] patient care, completing clinical documentation, obtaining and/or reviewing separately obtained history, and performing a medically appropriate examination. SIGNATURE: Anamika Richardson APRN.CNP PATIENT NAME: Katrina Serrano DATE: June 19, 2023 TIME: 8:38 AM PAGER/CONTACT #: Endoscopy pre-operative H&P H&P completed prior to the start time of the procedure. IMPRESSION AND PLAN HPI: This is a 67 year old female. For colonoscopy for chronic diarrhea, C diff was +ve then treated, tested negative. Diarrhea is now resolved.. Pertinent Review of Systems: GI: See HPI All other reviewed and negative other than HPI. 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 Microscopic colitis Other malaise and fatigue Paroxysmal atrial fibrillation (HCC) Primary cancer of right lower lobe of lung (HCC) 03/24/2020 Shortness of breath Unspecified constipation PAST SURGICAL HISTORY: PAST SURGICAL HISTORY Procedure Laterality Date BACK SURGERY HX x 3 COLONOSCOPY FLX DX W/COLLJ SPEC WHEN PFRMD 02/04/2021 COLSC FLX W/RMVL OF TUMOR POLYP LESION SNARE TQ 08/07/2008 EGD TRANSORAL BIOPSY SINGLE/MULTIPLE 06/16/2010 EGD W/O BRSH SPEC VARICIES INJ 11/17/2021 EXC NEUROMA HAND/FOOT XCP DIGITAL NERVE HERNIA REPAIR HX NEUROPLASTY &/TRANSPOS MEDIAN NRV CARPAL TUNNE Bilateral Carpal tunnel decomp PAST SURGICAL HISTORY OF 03/13/2020 MEDIASTINOSCOPY W/LYMPH NODE BIOPSY REPR DURAL/CSF LEAK W LAMINECTOMY RMVL LUNG OTHER THAN PNEUMONECTOMY 1 LOBE LOBECT Right 06/22/2020 Thoracotomy, right middle lobectomy, mediastinal lymph node dissection for lung cancer SIGMOIDOSCOPY FLX DX W/COLLJ SPEC BR/WA IF PFRMD 1998 Sigmoidoscopy TONSILLECTOMY HX TONSILLECTOMY PRIMARY/SECONDARY <AGE 12 Tonsillectomy OBJECTIVE: PHYSICAL EXAM: VITALS: BP 103/91 Pulse 65 Temp 36.3 C (97.3 F) (Temporal) Resp 16 Ht 167.6 cm (5' 6) Wt 83.9 kg (185 lb) SpO2 94% BMI 29.86 kg/m General appearance: A&Ox3 Respiratory: Normal chest expansion. No audible wheezes. CVS: No shortness of breath, no extremity edema. Regular pulse. Plan: OK to proceed with endoscopy. SIGNATURE: Hunter Posadas MD PATIENT NAME: Katrina Serrano documented in this encounter [facility] 06-12-2023 History of Present illness Narrative Radiology Service Progress Note PATIENT NAME: Katrina Serrano DATE OF SERVICE: June 12, 2023 TIME: 3:20 PM PATIENT IDENTITY VERIFICATION COMPLETED USING TWO (2) IDENTIFIERS: Name and Date of confirmed by patient verbally. FALL SCREENING: Has the patient had 2 falls in the last year or 1 fall with injury or currently using an Ambulatory Assistive Device (Walker, Cane, Wheelchair, Crutches, etc.)? No PATIENT GENDER DATA: Female. status: : No status: NO. PATIENT RELEVANT IMPLANT DATA REVIEWED: Yes PATIENT PRESENTS WITH AN IMPLANTABLE OR ATTACHED PLANT SCIENCES PROFESSOR: No RADIOLOGY DEPARTMENT: CT; Exam(s) Completed: Chest PERIPHERAL IV DATA: Not applicable SIGNED BY: RT Mili(R) June 12, 2023 3:20 PM documented in this encounter [facility] 05-14-2023 History of Present illness Narrative This note was created using Archiver's. Subjective Katrina Serrano is a 67 year old female. Patient presents today for in regards to upcoming injection. She was on anticoagulation. She needs clearance for injection. Review of Systems Constitutional: Negative. HENT: Negative. Eyes: Negative. Respiratory: Negative. Cardiovascular: Negative. Gastrointestinal: Negative. Endocrine: Negative. Genitourinary: Negative. Musculoskeletal: Negative. Skin: Negative. Allergic/Immunologic: Negative. Neurological: Negative. Hematological: Negative. Psychiatric/Behavioral: Negative. Objective BP 110/74 (BP Site: Left Arm, BP Position: Sitting, BP Cuff Size: Large Adult) Pulse 81 Temp 36.6 C (97.8 F) (Temporal) Resp 16 Ht 162.6 cm (5' 4) Wt 84.9 kg (187 lb 4 oz) BMI 32.14 kg/m Physical Exam Vitals reviewed. Constitutional: Appearance: Normal appearance. HENT: Head: Normocephalic and atraumatic. Nose: Nose normal. Eyes: Extraocular Movements: Extraocular movements intact. Pupils: Pupils are equal, round, and reactive to light. Cardiovascular: Rate and Rhythm: Normal rate and regular rhythm. Pulmonary: Effort: Pulmonary effort is normal. Breath sounds: Normal breath sounds. Abdominal: General: Bowel sounds are normal. Palpations: Abdomen is soft. Musculoskeletal: General: Normal range of motion. Cervical back: Normal range of motion and neck supple. Skin: General: Skin is warm and dry. Capillary Refill: Capillary refill takes less than 2 seconds. Neurological: General: No focal deficit present. Mental Status: She is alert and oriented to person, place, and time. Mental status is at baseline. Psychiatric: Mood and Affect: Mood normal. Behavior: Behavior normal. Assessment and Plan Encounter Diagnosis ICD-10-CM 1. detention current use of anticoagulant therapy Z79.01 2. Degeneration of lumbar or lumbosacral intervertebral disc M51.37 3. Primary cancer of right lower lobe of lung (HCC) C34.31 traMADol (ULTRAM) 50 mg tablet 4. Rib pain R07.81 traMADol (ULTRAM) 50 mg tablet Hold Xarelto for 5 days prior to injection. Begin next day after injection. She is cleared for procedure. Dennis Marcial MD Patient is in office for pre procedure clearance for upcoming cortisone injection. Form in office and once completed will fax back to Trini Orantes. Patient denies any concerns with upcoming procedure. Refill entered. Lamar Olivera LPN May 10, 2023 4:30 PM documented in this encounter [facility] 04-25-2023 Miscellaneous Notes Airway checked in office by Paula Peralta. Patient must be scoped at a hospital setting. documented in this encounter [facility] 04-13-2023 Miscellaneous Notes Patient phones requesting refills as follows: Requested Prescriptions Pending Prescriptions Disp Refills umeclidinium-vilanterol (ANORO ELLIPTA) 62.5-25 mcg/actuation inhaler 3 Each 3 Sig: Inhale 1 Inhalation as instructed once daily. Please review and advise. Ladonna Lebron RN documented in this encounter [facility] 03-06-2023 Miscellaneous Notes Pt states her ID is Shahla Milner [phone] Valentine Edgar Ma documented in this encounter [facility] 03-06-2023 History of Present illness Narrative CHIEF COMPLAINT: Patient presents with: Diarrhea: Stomach pain/cramping HPI Katrina Serrano is a 67 year old female here today for Diarrhea (Stomach pain/cramping ) Patient wit C diff, seeing infectious disease. Currently on Vancomycin taper by Infectious disease. Notes that she is supposed to finish this in the middle of the month. Notes that she is supposed to get an infusion after treatment. Notes diarrhea is still ongoing, has already went three times a day. No form. Getting some cramping prior to a BM. Notes her stool is dark, no rectal bleeding. Seems gritty in nature. Component Latest Ref Rng & Units 01/13/2023 C. difficile PCR Negative for C. difficile toxin by PCR Positive for C. difficile toxin by PCR (A) Component Latest Ref Rng & Units 01/30/2023 WBC 3.70 - 11.00 k/uL 6.80 RBC 3.90 - 5.20 m/uL 4.01 Hemoglobin 11.5 - 15.5 g/dL 11.8 Hematocrit 36.0 - 46.0 % 37.2 MCV 80.0 - 100.0 fL 92.8 MCH 26.0 - 34.0 pg 29.4 MCHC 30.5 - 36.0 g/dL 31.7 RDW-CV 11.5 - 15.0 % 13.0 Platelet Count 150 - 400 k/uL 315 MPV 9.0 - 12.7 fL 9.7 Neut% % 70.9 Abs Neut (ANC) 1.45 - 7.50 k/uL 4.82 Lymph% % 17.6 Abs Lymph 1.00 - 4.00 k/uL 1.20 [place]% % 8.4 Abs [place] <0.87 k/uL 0.57 Eosin% % 2.4 Abs Eosin <0.46 k/uL 0.16 Baso% % 0.4 Abs Baso <0.11 k/uL 0.03 Immature Gran % % 0.3 IMMATURE GRANS (ABS) <0.10 k/uL <0.03 NRBC /100 WBC 0.0 Absolute nRBC <0.01 k/uL <0.01 DTYPE Auto Protein, Total 6.0 - 8.5 g/dL 7.6 Albumin 3.2 - 5.0 g/dL 4.0 Calcium 8.5 - 10.5 mg/dL 10.4 Bilirubin, Total 0.2 - 1.0 mg/dL 0.3 Alkaline Phosphatase 45 - 117 U/L 119 (H) AST 8 - 34 U/L 24 ALT 13 - 61 U/L 13 Glucose 70 - 100 mg/dL 88 BUN 7 - 26 mg/dL 17 Creatinine 0.51 - 0.95 mg/dL 1.56 (H) Sodium 136 - 145 mmol/L 140 Potassium 3.5 - 5.1 mmol/L 4.2 Chloride 98 - 107 mmol/L 104 CO2 21 - 32 mmol/L 30 Anion Gap 5 - 16 mmol/L 6 eGFR >=60 mL/min/1.73m 36 (L) Cholesterol, Total 0 - 199 mg/dL 166 Triglyceride 30 - 149 mg/dL 186 (H) HDL Cholesterol >40 mg/dL 46 Non HDL Cholesterol <130 mg/dL 120 Fasting Time hrs 3 VLDL Cholesterol <30 mg/dL 37 (H) TC:HDL Ratio <5.10 3.61 LDL Cholesterol 0 - 129 mg/dL 83 LDL:HDL Ratio <2.54 1.80 Iron 50 - 170 ug/dL 50 TIBC 221 - 481 ug/dL 372 Transferrin Saturation 22.0 - 44.0 % 13.4 (L) Vitamin D 25 Hydroxy 30.0 - 100.0 ng/mL 82.3 Current Outpatient Medications Medication Sig vancomycin (VANCOCIN) 125 mg capsule take 1 capsule by mouth three times a day for 10 days then 1 caps... (REFER TO PRESCRIPTION NOTES). OXYGEN, HOME THERAPY, Inhale as instructed as directed. dicyclomine (BENTYL) 10 mg capsule TAKE 1 CAPSULE BY MOUTH BEFORE MEALS AND AT BEDTIME. pantoprazole DR (PROTONIX) 40 mg tablet Take 1 tablet by mouth once daily. sertraline (ZOLOFT) 50 mg tablet Take 1 tablet by mouth twice daily. hydrOXYchloroQUINE (PLAQUENIL) 200 mg tablet Take 200 mg by mouth twice daily. simvastatin (ZOCOR) 20 mg tablet Take 1 tablet by mouth daily at bedtime. rivaroxaban (XARELTO) 20 mg tablet Take 1 tablet by mouth once daily. metoprolol tartrate, short acting, (LOPRESSOR) 25 mg tablet Take 0.5 tablets by mouth twice daily. umeclidinium-vilanterol (ANORO ELLIPTA) 62.5-25 mcg/actuation inhaler Inhale 1 Inhalation as instructed once daily. albuterol HFA (PROVENTIL HFA, VENTOLIN HFA) 90 mcg/actuation inhaler Inhale 2 Puffs as instructed every 4 hours as needed for wheezing/shortness of breath. ferrous sulfate (IRON ORAL) Take 65 mg by mouth once daily. Lactobacillus acidophilus (PROBIOTIC ORAL) Take 1 tablet by mouth once daily. cholecalciferol, vitamin D3, (VITAMIN D3 ORAL) Take 1 tablet by mouth once daily. calcium carbonate/vitamin D3 (OS-TESSY 500 + D3 ORAL) Take 1 tablet by mouth once daily. alendronate (FOSAMAX) 70 mg tablet Take 1 tablet by mouth one time a week. In am with glass of water, on a empty stomach, nothing by mouth or lying down for 30 minutes (Patient not taking: Reported on 03/06/2023) clonazePAM (KLONOPIN) 0.5 mg tablet Take 1 tablet by mouth twice daily as needed for up to 90 days. (Patient not taking: Reported on 03/06/2023) amitriptyline (ELAVIL) 50 mg tablet Take 1 tablet by mouth daily at bedtime. (Patient not taking: Reported on 03/06/2023) No current facility-administered medications for this visit. ALLERGIES No Known Allergies Social History Tobacco Use Smoking status: Former Packs/day: 1.00 Years: 30.00 Additional pack years: 0.00 Total pack years: 30.00 Types: Cigarettes Quit date: 03/24/2000 Years since quittin.9 Smokeless tobacco: Never Vaping Use Vaping Use: Never used Substance Use Topics Alcohol use: No Drug use: Never 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 Microscopic colitis Other malaise and fatigue Paroxysmal atrial fibrillation (HCC) Primary cancer of right lower lobe of lung (HCC) 03/24/2020 Shortness of breath Unspecified constipation PAST SURGICAL HISTORY Procedure Laterality Date BACK SURGERY HX x 3 COLONOSCOPY FLX DX W/COLLJ SPEC WHEN PFRMD 02/04/2021 COLSC FLX W/RMVL OF TUMOR POLYP LESION SNARE TQ 08/07/2008 EGD TRANSORAL BIOPSY SINGLE/MULTIPLE 06/16/2010 EGD W/O BRSH SPEC VARICIES INJ 11/17/2021 EXC NEUROMA HAND/FOOT XCP DIGITAL NERVE HERNIA REPAIR HX NEUROPLASTY &/TRANSPOS MEDIAN NRV CARPAL TUNNE Bilateral Carpal tunnel decomp PAST SURGICAL HISTORY OF 03/13/2020 MEDIASTINOSCOPY W/LYMPH NODE BIOPSY REPR DURAL/CSF LEAK W LAMINECTOMY RMVL LUNG OTHER THAN PNEUMONECTOMY 1 LOBE LOBECT Right 06/22/2020 Thoracotomy, right middle lobectomy, mediastinal lymph node dissection for lung cancer SIGMOIDOSCOPY FLX DX W/COLLJ SPEC BR/WA IF PFRMD 1998 Sigmoidoscopy TONSILLECTOMY HX TONSILLECTOMY PRIMARY/SECONDARY <AGE 12 Tonsillectomy FAMILY HISTORY Problem Relation Age of Onset other (throat cancer) Mother Heart Father Skin Cancer Brother COPD Brother Skin Cancer Brother Diabetes Son Colon Cancer No Family History REVIEW OF SYSTEMS Review of Systems Constitutional: Positive for fatigue. Gastrointestinal: Positive for diarrhea. Gas All other systems reviewed and are negative. PHYSICAL EXAM BP 108/70 Pulse 71 Ht 5' 4 (1.63m) Wt 188 lb 1.6 oz (85.3kg) BMI 32.27 kg/(m^2). Physical Exam Constitutional: Appearance: Normal appearance. HENT: Head: Normocephalic and atraumatic. Eyes: General: No scleral icterus. Extraocular Movements: Extraocular movements intact. Conjunctiva/sclera: Conjunctivae normal. Pupils: Pupils are equal, round, and reactive to light. Cardiovascular: Rate and Rhythm: Normal rate and regular rhythm. Pulses: Normal pulses. Heart sounds: Normal heart sounds. Pulmonary: Effort: Pulmonary effort is normal. Breath sounds: Normal breath sounds. Abdominal: General: Abdomen is flat. Bowel sounds are normal. Palpations: Abdomen is soft. Tenderness: There is no abdominal tenderness. Musculoskeletal: General: Normal range of motion. Cervical back: Normal range of motion and neck supple. Skin: General: Skin is warm and dry. Neurological: General: No focal deficit present. Mental Status: She is alert and oriented to person, place, and time. Psychiatric: Mood and Affect: Mood normal. Behavior: Behavior normal. Thought Content: Thought content normal. Judgment: Judgment normal. Assessment/Plan (A04.72) C. difficile diarrhea (primary encounter diagnosis) 1. C. difficile diarrhea -- Patient with suspected C diff diarrhea, going numerous times a day. Currently on Vanco taper by ID. She is unsure who her ID is but will call back with an update. -- Will check C diff stool test and calprotectin - C. DIFFICILE PCR - CALPROTECTIN,FECAL Follow up in office PRN. Recommended to please call office/go to ER if fever, chills, chest pain, SOB, diarrhea, nausea, emesis, worsening abdominal pain, dehydration occurs I spent a total of 20 minutes on the date of the service which included preparing to see the patient, [id number] patient care, completing clinical documentation, obtaining and/or reviewing separately obtained history, performing a medically appropriate examination, counseling and educating the patient/family/caregiver, and ordering medications, tests, or procedures. Jayne Woods PA-C March 06, 2023 8:52 AM documented in this encounter [facility] 02-09-2023 History of Present illness Narrative Subjective HPI HPI Katrina Serrano is a 67 year old female who presents today for CC of diarrhea. Diagnosed 01/07 with [facility] with vanco for 14 days, s/s improved during that time but did not fully resolve, now worsening. Denies abdominal pain. Has f/u with ID and GI scheduled. 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 Microscopic colitis Other malaise and fatigue Paroxysmal atrial fibrillation (HCC) Primary cancer of right lower lobe of lung (HCC) 03/24/2020 Shortness of breath Unspecified constipation PAST SURGICAL HISTORY Procedure Laterality Date BACK SURGERY HX x 3 COLONOSCOPY FLX DX W/COLLJ SPEC WHEN PFRMD 02/04/2021 COLSC FLX W/RMVL OF TUMOR POLYP LESION SNARE TQ 08/07/2008 EGD TRANSORAL BIOPSY SINGLE/MULTIPLE 06/16/2010 EGD W/O BRSH SPEC VARICIES INJ 11/17/2021 EXC NEUROMA HAND/FOOT XCP DIGITAL NERVE HERNIA REPAIR HX NEUROPLASTY &/TRANSPOS MEDIAN NRV CARPAL TUNNE Bilateral Carpal tunnel decomp PAST SURGICAL HISTORY OF 03/13/2020 MEDIASTINOSCOPY W/LYMPH NODE BIOPSY REPR DURAL/CSF LEAK W LAMINECTOMY RMVL LUNG OTHER THAN PNEUMONECTOMY 1 LOBE LOBECT Right 06/22/2020 Thoracotomy, right middle lobectomy, mediastinal lymph node dissection for lung cancer SIGMOIDOSCOPY FLX DX W/COLLJ SPEC BR/WA IF PFRMD 1998 Sigmoidoscopy TONSILLECTOMY HX TONSILLECTOMY PRIMARY/SECONDARY <AGE 12 Tonsillectomy ALLERGIES Patient has no known allergies. MEDICATIONS alendronate (FOSAMAX) 70 mg tablet Take 1 tablet by mouth one time a week. In am with glass of water, on a empty stomach, nothing by mouth or lying down for 30 minutes dicyclomine (BENTYL) 10 mg capsule TAKE 1 CAPSULE BY MOUTH BEFORE MEALS AND AT BEDTIME. tinidazole (TINDAMAX) 500 mg tablet Take 4 tablets by mouth daily with breakfast. clonazePAM (KLONOPIN) 0.5 mg tablet Take 1 tablet by mouth twice daily as needed for up to [address] (PROTONIX) 40 mg tablet Take 1 tablet by mouth once daily. sertraline (ZOLOFT) 50 mg tablet Take 1 tablet by mouth twice daily. hydrOXYchloroQUINE (PLAQUENIL) 200 mg tablet Take 200 mg by mouth twice daily. simvastatin (ZOCOR) 20 mg tablet Take 1 tablet by mouth daily at bedtime. rivaroxaban (XARELTO) 20 mg tablet Take 1 tablet by mouth once daily. amitriptyline (ELAVIL) 50 mg tablet Take 1 tablet by mouth daily at bedtime. metoprolol tartrate, short acting, (LOPRESSOR) 25 mg tablet Take 0.5 tablets by mouth twice daily. traMADol (ULTRAM) 50 mg tablet Take 1 tablet by mouth every 6 hours as needed for pain for up to 90 days. umeclidinium-vilanterol (ANORO ELLIPTA) 62.5-25 mcg/actuation inhaler Inhale 1 Inhalation as instructed once daily. albuterol HFA (PROVENTIL HFA, VENTOLIN HFA) 90 mcg/actuation inhaler Inhale 2 Puffs as instructed every 4 hours as needed for wheezing/shortness of breath. ferrous sulfate (IRON ORAL) Take 65 mg by mouth once daily. cholecalciferol, vitamin D3, (VITAMIN D3 ORAL) Take 1 tablet by mouth once daily. calcium phosphate dibas/vit D3 (VITAMIN D, WITH CALCIUM, ORAL) Take 250 mg by mouth once daily. calcium carbonate/vitamin D3 (OS-TESSY 500 + D3 ORAL) Take 1 tablet by mouth once daily. vancomycin (VANCOCIN) 125 mg capsule Take 1 capsule by mouth four times daily for 10 days. DULoxetine (CYMBALTA) 60 mg capsule Take 1 capsule by mouth once daily. (Patient not taking: Reported on 02/09/2023) Lactobacillus acidophilus (PROBIOTIC ORAL) Take 1 tablet by mouth once daily. (Patient not taking: Reported on 02/09/2023) FAMILY HISTORY Problem Relation Age of Onset other (throat cancer) Mother Heart Father Skin Cancer Brother COPD Brother Skin Cancer Brother Diabetes Son Colon Cancer No Family History Social History Tobacco Use Smoking status: Former Packs/day: 1.00 Years: 30.00 Additional pack years: 0.00 Total pack years: 30.00 Types: Cigarettes Quit date: 03/24/2000 Years since quittin.8 Smokeless tobacco: Never Vaping Use Vaping Use: Never used Substance Use Topics Alcohol use: No Drug use: Never ROS Objective Blood pressure 96/67, pulse 73, temperature 36.3 C (97.3 F), resp. rate 20, weight 87.1 kg (192 lb), SpO2 97 %. Physical Exam Constitutional: General: She is not in acute distress. Appearance: Normal appearance. She is not toxic-appearing. Cardiovascular: Rate and Rhythm: Normal rate and regular rhythm. Heart sounds: Normal heart sounds. Pulmonary: Effort: Pulmonary effort is normal. Breath sounds: Normal breath sounds. Abdominal: General: Bowel sounds are normal. Palpations: Abdomen is soft. Tenderness: There is no abdominal tenderness. Skin: General: Skin is warm and dry. ASSESSMENT/PLAN: 1. C. difficile diarrhea - ICD9: 008.45, ICD10: A04.72 -use medication as prescribed -follow up if symptoms persist, worsen, change Keep ID appointment next week. - VANCOMYCIN 125 MG CAPSULE Kael Nunez APRN.[employer] documented in this encounter [facility] 01-27-2023 Miscellaneous Notes Patient notified of results, verbalized understanding of instructions given. Crystal Lorenz MA Unable to reach patient. Number incorrect. Please try again later. Nereida Cisneros LPN Urine culture did not show a clear infection. Finish antibiotic and follow up with PCP, urology, or [employer] if symptoms persist. documented in this encounter [facility] 01-25-2023 History of Present illness Narrative CC: Patient presents with: Urinary Problem: Itching burning x 1 day HPI Katrina Serrano is a 67 year old female who presents with complaint of possible UTI. These symptoms have been present for 1 days. Associated symptoms: burning, frequency, and vaginal itching Denies: fever, chills, sweats, abdominal pain, and flank pain Treatments: nothing The ROS was otherwise negative. PMH, Medications, labs, allergies, and recent past visits with PCP were reviewed and updated as able. PHYSICAL EXAM: Wt 87.5 kg (193 lb) BMI 33.13 kg/m General: Well appearing and alert CV: Regular rate and rhythm without obvious murmur Lungs: clear to auscultation bilaterally Back: straight and symmetric Abdomen: soft, nontender, nondistended 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 Microscopic colitis Other malaise and fatigue Paroxysmal atrial fibrillation (HCC) Primary cancer of right lower lobe of lung (HCC) 03/24/2020 Shortness of breath Unspecified constipation PAST SURGICAL HISTORY Procedure Laterality Date BACK SURGERY HX x 3 COLONOSCOPY FLX DX W/COLLJ SPEC WHEN PFRMD 02/04/2021 COLSC FLX W/RMVL OF TUMOR POLYP LESION SNARE TQ 08/07/2008 EGD TRANSORAL BIOPSY SINGLE/MULTIPLE 06/16/2010 EGD W/O BRSH SPEC VARICIES INJ 11/17/2021 EXC NEUROMA HAND/FOOT XCP DIGITAL NERVE HERNIA REPAIR HX NEUROPLASTY &/TRANSPOS MEDIAN NRV CARPAL TUNNE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 consolidation. No discernible pleural effusion or pneumothorax. Cardiomediastinal silhouette: Stable cardiomediastinal silhouette. Bones and soft tissues: Stable mild superior endplate compression deformity of T12. Postsurgical changes in the lumbar spine. 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 risedronate (ACTONEL) 35 mg tablet Take 1 tablet by mouth one time a week. In am with glass of water, on a empty stomach, nothing by mouth or lying down for 30 minutes DULoxetine (CYMBALTA) 60 mg capsule TAKE 1 CAPSULE ONCE DAILY. umeclidinium-vilanterol (ANORO ELLIPTA) 62.5-25 mcg/actuation inhaler Inhale 1 Inhalation as instructed once daily. simvastatin (ZOCOR) 20 mg tablet Take 1 tablet by mouth daily at bedtime. tiZANidine (ZANAFLEX) 2 mg tablet Take 1 tablet by mouth twice daily. ferrous sulfate (IRON ORAL) Take 65 mg by mouth twice daily. Lactobacillus acidophilus (PROBIOTIC ORAL) Take 1 tablet by mouth once daily. cholecalciferol, vitamin D3, (VITAMIN D3 ORAL) Take 1 tablet by mouth once daily. calcium phosphate dibas/vit D3 (VITAMIN D, WITH CALCIUM, ORAL) Take 250 mg by mouth once daily. rivaroxaban (XARELTO) 20 mg tablet Take 20 mg by mouth once daily. albuterol HFA (PROVENTIL HFA, VENTOLIN HFA) 90 mcg/actuation inhaler Inhale 2 Puffs as instructed every 4 hours as needed for wheezing/shortness of breath. (Patient not taking: Reported on 09/12/2022) amitriptyline (ELAVIL) 50 mg tablet Take 50 mg by mouth daily at bedtime. calcium carbonate/vitamin D3 (OS-TESSY 500 + D3 ORAL) Take 1 tablet by mouth once daily. metoprolol tartrate, short acting, (LOPRESSOR) 25 mg tablet Take 12.5 mg by mouth twice daily. Social History Tobacco Use Smoking status: Former Packs/day: 1.00 Years: 30.00 Pack years: 30.00 Types: Cigarettes Quit date: 03/24/2000 Years since quittin.4 Smokeless tobacco: Never Vaping Use Vaping Use: Never used Substance Use Topics Alcohol use: No Drug use: Never PMH, Social history, family history and surgical history reviewed and updated in EMR REVIEW OF SYSTEMS: CONSTITUTIONAL: No fevers, chills, nightsweats, unintended weight loss. Extreme fatigue HEENT: Denies frequent or severe heaches, nasal congestion/sinus symptoms, problematic allergy problems. EYES: No diplopia or blurry vision. CARDIOVASCULAR: No chest pain, dyspnea, palpitations, orthopnea, PND, edema. PULM: See HPI NEURO: No new balance problems, peripheral weakness/paresthesias or numbness of concern. MUSC-SKEL: No new joint pain, swelling, or erythema. PSY: No concerns regarding depression, anxiety INTEGUMENTARY: No new skin changes or rashes PHYSICAL EXAMINATION: Wt 197 lb (89.4kg) 96/62, RR 83, RR 17, Sat 98% General Appearance: Age appropriate, NAD. Skin: Skin color, texture, turgor normal, no suspicious rashes or lesions. Head: Normocephalic, no masses, lesions, tenderness or abnormalities. Eyes: Sclera, conjunctiva normal Oropharynx: No oral lesions or thrush Neck: No JVD, no masses, no adenopathy. Lungs: Not labored, dullness to percussion in right base, no wheezes or crackles. Heart: RRR, no murmur. 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 Fax confirmation received Elvira Mcintosh LPN September 06, 2022 1:59 PM ----- Message from Dennis Marcial MD sent at 09/02/2022 4:25 PM EDT ----- Sed rate is elevated. STAN and rheumatoid factor are negative. Copy to rheumatology in advance of her consult. documented in this encounter [facility] 09-02-2022 Miscellaneous Notes Letter sent to patient to inform her of referral being sent to: [facility] [address] [place] [address] [phone] Fax confirmation received Elvira Mcintosh LPN September 02, 2022 11:30 AM documented in this encounter [facility] 09-02-2022 Miscellaneous Notes Relayed message to patient. Can let her know iron is normal. [place] Ann DO documented in this encounter [facility] 08-29-2022 History of Present illness Narrative This note was created using [employer]. Subjective Katrina Serrano is a 66 year old female. W presents today for follow-up for multiple medical problems. See list. Her chronic medical problems been stable. She is followed by oncology for her lung cancer. She reports she has been doing okay with this. Additionally mood and anxiety are improved with the Cymbalta. Breathing is improved with Anoro. She continues to take simvastatin for her cholesterol. Blood pressure is well controlled. She would like something instead of Prolia as it is costing her $700 per injection. Previously she took was fosamax but did not tolerate it. She had vomiting with it Review of Systems Constitutional: Negative. HENT: Negative. Eyes: Negative. Respiratory: Negative. Cardiovascular: Negative. Gastrointestinal: Negative. Endocrine: Negative. Genitourinary: Negative. Musculoskeletal: Negative. Skin: Negative. Allergic/Immunologic: Negative. Neurological: Negative. Hematological: Negative. Psychiatric/Behavioral: Negative. Objective BP 108/78 (BP Site: Left Arm, BP Position: Sitting, BP Cuff Size: Regular Adult) Pulse 76 Temp 36.5 C (97.7 F) (Temporal) Resp 18 Ht 167.6 cm (5' 6) Wt 88 kg (194 lb) SpO2 99% BMI 31.31 kg/m Physical Exam Vitals reviewed. Constitutional: Appearance: Normal appearance. HENT: Head: Normocephalic and atraumatic. Nose: Nose normal. Eyes: Extraocular Movements: Extraocular movements intact. Pupils: Pupils are equal, round, and reactive to light. Cardiovascular: Rate and Rhythm: Normal rate and regular rhythm. Pulmonary: Effort: Pulmonary effort is normal. Breath sounds: Normal breath sounds. Abdominal: General: Bowel sounds are normal. Palpations: Abdomen is soft. Musculoskeletal: General: Normal range of motion. Cervical back: Normal range of motion and neck supple. Skin: General: Skin is warm and dry. Capillary Refill: Capillary refill takes less than 2 seconds. Neurological: General: No focal deficit present. Mental Status: She is alert and oriented to person, place, and time. Mental status is at baseline. Psychiatric: Mood and Affect: Mood normal. Behavior: Behavior normal. Assessment and Plan Encounter Diagnosis ICD-10-CM 1. Polyarthritis M13.0 CONSULT TO RHEUM/IMMUN DISEASE STAN BLOOD SED RATE WESTERGREN RHEUMATOID FACTOR BL 2. Esophageal dysphagia R13.[address] (PROTONIX) 40 mg tablet 3. Primary cancer of right lower lobe of lung (HCC) C34.[address] (PROTONIX) 40 mg tablet 4. Metastasis to mediastinal lymph node (HCC) C77.[address] (PROTONIX) 40 mg tablet 5. Pure hypercholesterolemia E78.00 LIPID PANEL BASIC COMP METABOLIC PANEL 6. Hypertension, essential I10 COMP METABOLIC PANEL 7. Atherosclerosis of aorta ([facility]) I70.0 8. Centrilobular emphysema ([facility]) J43.2 9. Stage 3 chronic kidney disease, unspecified whether stage 3a or 3b CKD ([facility]) N18.30 10. ACI (adrenal cortical insufficiency) ([facility]) E27.40 11. Pancytopenia ([facility]) D61.818 12. Recurrent major depressive disorder, in remission ([facility]) F33.40 13. Paroxysmal atrial fibrillation ([facility]) I48.0 Begin trial of Actonel. Use explained to the patient. Continue other medications. Follow-up in 6 months. Dennis Marcial MD Patient is in office today for 6 month exam. 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 Elvira Mcintosh LPN August 29, 2022 8:09 AM documented in this encounter [facility] 07-11-2022 Miscellaneous Notes Received form from patient's dentist in [place] asking for instructions on holding Xarelto for procedure. We do not prescribe this medication. Patient takes Xarelto for Afib and this is prescribed by her kidney trimmer. I faxed the for to Latia Titus CNP, of [facility]. Patient notified. Regina Cook LPN Pt called wanting to speak to nurse. Would not disclose why. Please call pt when able. documented in this encounter [facility] 07-08-2022 Miscellaneous Notes I called [facility] ph#[phone] and ordered patient's next refill for her Prolia Injection. She gets this injection every 6 months for Osteoporosis and she is due for her next injection in August. This was her last refill so, next time she will need a new Rx for this medication. [facility] will contact the patient for her co-pay payment (over $700) and approval to ship the medication to this office. Ana Soto LPN July 08, 2022 1:19 PM documented in this encounter [facility] 07-08-2022 Miscellaneous Notes Patient called requesting the following refill. Requested Prescriptions Pending Prescriptions Disp Refills traMADol (ULTRAM) 50 mg tablet 90 tablet 0 Sig: Take 1 tablet by mouth every 8 hours as needed for pain for up to 30 days. Patient last appointment: 02/02/2022 I spoke with Piotr. She is in [place] right now. She will be returning to [place] mid August. She said she will call and schedule an appointment with Dr Marcial for August, and she will be due for her Prolia shot at that time. I will contact her specialty pharmacy [facility] about Prolia. Thank you! Patient Phone numbers: [phone] (home) Request is for script(s) to be escript to [facility]. Ana Soot LPN documented in this encounter [facility] 04-26-2022 History of Present illness Narrative Radiology Service Progress Note PATIENT NAME: Katrina Serrano DATE OF SERVICE: April 26, 2022 TIME: 10:12 AM PATIENT IDENTITY VERIFICATION COMPLETED USING TWO (2) IDENTIFIERS: Name and Date of confirmed by patient verbally. FALL SCREENING: Has the patient had 2 falls in the last year or 1 fall with injury or currently using an Ambulatory Assistive Device (Walker, Cane, Wheelchair, Crutches, etc.)? No PATIENT GENDER DATA: Female. status: : No status: NO. PATIENT RELEVANT IMPLANT DATA REVIEWED: Not Applicable RADIOLOGY DEPARTMENT: General X-ray: Exam(s) Completed: Chest X-Ray PERIPHERAL IV DATA: Not applicable SIGNED BY: RT Quique(R) April 26, 2022 10:12 AM documented in this encounter [facility] 04-05-2022 Miscellaneous Notes Patient called requesting the following refill. Requested Prescriptions Pending Prescriptions Disp Refills traMADol (ULTRAM) 50 mg tablet 90 tablet 0 Sig: Take 1 tablet by mouth every 6 hours as needed. Patient last appointment: 02/09/2022 Patient Phone numbers: [phone] (home) Request is for script(s) to be escript to [facility] pharmacy. Ana Soto LPN documented in this encounter [facility] 03-21-2022 Miscellaneous Notes Pt scheduled as directed below at [facility] location Thank you! Griselda Ospina Spoke with pt. , PSS please put on schedule for labs and Chest x-ray 04/26@ 10 am. Orders are in and pt. Is aware. Danita Braga LPN Get labs and CXR in April Carolina Lambert MD please advise Last OV 01/04/22 PLAN: -Portable oxygen 2 liters continuous with activity for dyspnea. -She is leaving for [place] in February 2022 until August 2022. 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 Patient will be in [place] from 04/22 to 05/07. Patient is asking about lab draw and an office visit while she is in town. Please advise and call patient. documented in this encounter [facility] 02-09-2022 Miscellaneous Notes Spoke with [facility], they will coordinate transfer. Patient notified re: same. Maki Mackay LPN Patient called stating she is leaving for [place] tomorrow. Uses [facility] in [place] and in [place]. Needs CMN for current year to verify still on Oxygen. Fax number . Requested cell number to be primary- changed. Oly Rivera LPN documented in this encounter [facility] 02-09-2022 Nurse Note Pt is here today for a flu vaccine and a prolia inj documented in this encounter [facility] 02-07-2022 Miscellaneous Notes Referral to nephrology Patient stated they do not see nephrology Elvira Mcintosh LPN February 07, 2022 1:56 PM ----- Message from Dennis Marcial MD sent at 02/06/2022 8:57 PM EDT ----- Copy to nephrology documented in this encounter [facility] 02-02-2022 History of Present illness Narrative This note was created using Archiver's. Subjective Katrina Serrano is a 66 year old female. Patient presents today for follow-up for multiple medical problems. See list. Her chronic medical problems are improved and stable. Blood pressure is under good control on her current regimen. She is due for her Prolia shot. However, medication is not in clinic. Breathing has been stable on Anoro. Mood and anxiety improved. She has no new complaints today. Review of Systems Constitutional: Negative. HENT: Negative. Eyes: Negative. Respiratory: Negative. Cardiovascular: Negative. Gastrointestinal: Negative. Endocrine: Negative. Genitourinary: Negative. Musculoskeletal: Negative. Skin: Negative. Allergic/Immunologic: Negative. Neurological: Negative. Hematological: Negative. Psychiatric/Behavioral: Negative. Objective BP 106/62 (BP Site: Right Arm, BP Cuff Size: Large Adult) Temp 36 C (96.8 F) (Temporal) Resp 16 Ht 167.6 cm (5' 6) Wt 89.8 kg (198 lb) SpO2 95% BMI 31.96 kg/m Physical Exam Vitals reviewed. Constitutional: Appearance: Normal appearance. HENT: Head: Normocephalic and atraumatic. Nose: Nose normal. Eyes: Extraocular Movements: Extraocular movements intact. Pupils: Pupils are equal, round, and reactive to light. Cardiovascular: Rate and Rhythm: Normal rate and regular rhythm. Pulmonary: Effort: Pulmonary effort is normal. Breath sounds: Normal breath sounds. Abdominal: General: Bowel sounds are normal. Palpations: Abdomen is soft. Musculoskeletal: General: Normal range of motion. Cervical back: Normal range of motion and neck supple. Skin: General: Skin is warm and dry. Capillary Refill: Capillary refill takes less than 2 seconds. Neurological: General: No focal deficit present. Mental Status: She is alert and oriented to person, place, and time. Mental status is at baseline. Psychiatric: Mood and Affect: Mood normal. Behavior: Behavior normal. Assessment and Plan Katrina was seen today for 6 month exam. Diagnoses and all orders for this visit: Primary hypertension - COMP METABOLIC PANEL; Future Pure hypercholesterolemia - COMP METABOLIC PANEL; Future - LIPID PANEL BASIC; Future documented in this encounter [facility] 02-02-2022 Nurse Note Pt has complaints of productive cough with yellowish/greenish phlegm x 2 weeks denies fever has had fatigue documented in this encounter [facility] 01-17-2022 Miscellaneous Notes Summary: Regarding Prolia Patient said she has called twice regarding her appointment at the end of the month for her Prolia Injection, She is asking if she needs to order it, or has it already been ordered? documented in this encounter [facility] 01-04-2022 History of Present illness Narrative PATIENT NAME: Katrina Serrano. CLINIC NO: [id number]. ATTENDING PHYSICIAN: Carolina Lambert MD. DATE OF SERVICE: 01/04/2022. 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 She had a PET CT scan for evaluation of lung nodule on 02/04/2020. PET scan showed increased activity in the lateral right lower lobe lesion SUV 2.9. There was also increased activity in the precarinal level, mediastinum right thoracic prehilum area. SUV 3.2. No other evidence of metastatic disease. She saw Dr. Kira Toscano on 03/12/2020 for mediastinoscopy on 03/13/20 and possible robotic right lower lobe resection Her pathology unfortunately revealed metastatic adenocarcinoma at level 2 mediastinal lymph node. Treatment history: Neoadjuvant 4500 cGy in 25 fractions treating to the 97&99.4% isodose line with 6 MV and 7 tarango. IGRT with daily CBCTs. Concurrent chemotherapy with Cisplatin/Etoposide x 2 cycles ( 04/06/20 to 05/12/20 ) SURGICAL HX: 03/13/2020: Mediastinoscopy 06/22/2020: Right thoracotomy, right middle lobectomy with mediastinal and hilar lymph node dissection, and vascularized pedicle tissue buttress of bronchial stump. Surgical Pathology: FINAL DIAGNOSIS 03/13/2020 1. Lymph node, right level 3, right level 2, excision (A, D) - Metastatic adenocarcinoma. 2. Lymph nodes, level 7, level 4 left area, excision (B-C) - Lymph nodes; negative for neoplasm. FINAL DIAGNOSIS 06/22/2020 1. Lung, right middle lobe, lobectomy (A) - Adenocarcinoma (1 cm), solid predominant (90%) with additional acinar pattern (10%), with focal fibrosis consistent with prior chemoradiation (See synoptic template). - Greater than 90% tumor is viable. - Lymphatic invasion present. - Visceral pleural invasion present. - Margins negative. 2. Lymph node, level 11R, excision (B) - Negative for tumor (0/1). 3. Lymph node, level 10R, excision (C) - Metastatic adenocarcinoma (1/1). - Extranodal extension present. 4. Lymph nodes, levels 7 and 8 subcarinal, excision (D) - Two lymph nodes, negative for tumor (0/2). 5. Lymph node, level 4R, excision (E) - Metastatic adenocarcinoma (1/1). - Extranodal extension present. 6. Lymph nodes, levels 2R and 4R, excision (F) - Metastatic adenocarcinoma involving eight of ten lymph nodes (8/10), and fibrosis consistent with prior chemoradiation. - Extranodal extension present. SM/RB/whit 06/24/2020 SYNOPTIC REPORT OF MELGAR PATHOLOGIC FINDINGS RIGHT MIDDLE LOBE LUNG: LUNG RESECTION WORKSHEET Procedure: Lobectomy Specimen Laterality: Right Tumor Site: Middle lobe Tumor Size: Total tumor size (size of entire tumor) Greatest dimension: 1 cm Additional dimensions: 0.5 cm Additional dimensions: 0.5 cm Tumor Focality: Single focus Histologic Type: Invasive adenocarcinoma, solid predominant Other Subtypes Present (specify subtype(s), may also include percentages): acinar Histologic Grade: G3: Poorly differentiated Visceral Pleura Invasion: Present Direct Invasion of Adjacent Structures: No adjacent structures present Margins: All margins uninvolved by tumor Margins examined (specify): Bronchial,Vascular,Parenchymal Distance of invasive carcinoma from closest margin: 50 mm Specify closest margin: Parenchymal, vascular and bronchial Bronchial Margin: Uninvolved by invasive carcinoma Vascular Margin: Uninvolved by invasive carcinoma Parenchymal Margin: Uninvolved by invasive carcinoma Treatment Effect: Greater than 10% residual viable tumor Lymph-Vascular Invasion: Present Lymphatic Extranodal Extension: Present Pathologic Stage Classification (pTNM, AJCC 8th ed) TNM Descriptors: y (post-treatment) Primary Tumor (pT): pT2a: Tumor >3 cm but <=4 cm or <=3 cm having any of the following features: Involves the main bronchus regardless of distance to the ginger, but without involvement of the ginger; Invades visceral pleura (PL1 or PL2); or Associated with atelectasis or obstructive pneumonitis that extends to the hilar region, involving part or all of the lung. 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 She has no chest pain, cough or shortness of breath. She denies abdominal pain or jaundice. No nausea or vomiting or diarrhea. She is doing well on oxygen at home. She denies frequent headaches, dizziness or lightheadedness. She had EGD and capsule endoscopy study for evaluation of iron deficiency anemia since her last visit. Both EGD and small bowel capsule endoscopy were normal active bleeding or lesion with bleeding potential. FINAL DIAGNOSIS A. Stomach, biopsy: - Gastric mucosa with no significant pathologic abnormality. B. Distal esophagus, biopsy: - Squamous mucosa with no significant pathologic abnormality All medications & allergies updated and reviewed by me. REVIEW OF SYSTEMS: CONSTITUTIONAL: No fevers, chills, nightsweats, unintended weight loss HEENT: Denies frequent or severe heaches, nasal congestion/sinus symptoms, problematic allergy problems. EYES: No diplopia or blurry vision. CARDIOVASCULAR: No chest pain, dyspnea, palpitations, orthopnea, PND, ankle edema. PULM: No dyspnea, unexplained cough. GI: no problematic reflux, constipation, diarrhea, changes in stool habits, hematochezia, melena. : No new urinary complaints, including dysuria, gross hematuria or pyuria. NEURO: No new balance problems, peripheral weakness/paresthesias or numbness of concern. MUSC-SKEL: No new joint pain, swelling, or erythema. PSY: No concerns regarding depression, anxiety or panic. INTEGUMENTARY: No new skin changes (rash, new or changing mole, new growth) PHYSICAL EXAMINATION: 66-year-old well-nourished well-developed female in no acute distress Performance status 80% BP 108/68 Pulse 80 Temp (Src) 97.3 (Temporal) Wt 196 lb 8 oz (89.1kg) SpO2 99% HEENT: Head is normocephalic, atraumatic. Sclerae white, conjunctivae pink. PEERL. EOMs are intact. Oropharynx is benign. LYMPHATICS: There is no palpable adenopathy in the neck, supraclavicular region, axillae, or groin. LUNGS: Lungs are clear to percussion and auscultation. HEART: Heart is normal without murmurs, gallops, or rubs. ABDOMEN: Soft and nontender without organomegaly. No masses can be palpated. EXTREMITIES: Are without edema. NEUROLOGIC: Exam is physiologic LABORATORY DATA Component Latest Ref Rng & Units 01/04/2022 WBC 3.70 - 11.00 k/uL 4.86 RBC 3.90 - 5.20 m/uL 3.66 (L) Hemoglobin 11.5 - 15.5 g/dL 11.3 (L) Hematocrit 36.0 - 46.0 % 34.2 (L) MCV 80.0 - 100.0 fL 93.4 MCH 26.0 - 34.0 pg 30.9 MCHC 30.5 - 36.0 g/dL 33.0 RDW-CV 11.5 - 15.0 % 14.7 Platelet Count 150 - 400 k/uL 224 MPV 9.0 - 12.7 fL 9.4 Neut% % 63.0 Abs Neut (ANC) 1.45 - 7.50 k/uL 3.06 Lymph% % 22.8 Abs Lymph 1.00 - 4.00 k/uL 1.11 Bon[place]ville% % 7.2 Abs [place] <0.87 k/uL 0.35 Eosin% % 5.8 Abs Eosin <0.46 k/uL 0.28 Baso% % 0.8 Abs Baso <0.11 k/uL 0.04 Immature Gran % % 0.4 IMMATURE GRANS (ABS) <0.10 k/uL <0.03 NRBC /100 WBC 0.0 Absolute nRBC <0.01 k/uL <0.01 DTYPE Auto Component Latest Ref Rng & Units 01/04/2022 Iron 41 - 186 ug/dL 68 TIBC 232 - 386 ug/dL 287 Transferrin Saturation 15.0 - 57.0 % 23.7 Ferritin 14.7 - 205.1 ng/mL 176.0 ASSESSMENT: 65 year-old lady with history of tobacco use who presented with a stage 3A, T2, N2 M0, non-small cell lung cancer, adenocarcinoma right lower lobe. (PD-L1 expression 100%). No targetable mutations on lung panel. Completed trimodality therapy about 1 year ago. 1) lung cancer -Status post Right thoracotomy, right middle lobectomy with mediastinal and hilar lymph node dissection. DIMITRIS - completed trimodality therapy 18 months ago. -Dyspnea secondary to combination of mild COPD and restrictive lung disease from radiation therapy and surgery. -Stable on oxygen supplement 2) anemia secondary to stage 3a chronic renal failure -Iron deficiency with a modest drop in her hemoglobin -EGD and capsule endoscopy were negative for pathology or active bleeding. PLAN: -Portable oxygen 2 liters continuous with activity for dyspnea. -She is leaving for [place] in February 2022 until August 2022. 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 Portions of this documentation were copied and pasted from previous office visit notes in order to provide a cohesive continuity of the history. The note has been reviewed and edited and updated as necessary. Carolina Lambert MD Cc: MD Dr. Natacha Cyr Dr. documented in this encounter [facility] 12-10-2021 Miscellaneous Notes Patient notified re: Stiolto. She will check with insurance and let us know. She no longer needs portability for O2, she owns her own POC and recently had it repaired. Maki Mackay LPN Images from the original note were not included. MD Oly Owen LPN 20 hours ago (4:16 PM) She can check on harris of [employer] which is the alternative. If she wants to change oxygen companies, she will likely need ambulation oximetry testing. Left message for patient to call. If she needs oxygen with exertion- she will need to complete an oximetry with ambulation test with [employer] to prove need to insurance as it has been greater than 30 days since she was last tested. Provider will need to place order. Maki Mackay LPN Patient called. Verified name and date of . Patient requesting O2 for portability with [facility]. She would also like to let Dr. Mireles know that she did not burr picker the Anora at [facility] due to cost of $110 a month and is asking if anything else more affordable can be ordered? Please review and advise. Oly Rivera LPN documented in this encounter [facility] 12-09-2021 Instructions Shannan Brown MA - 12/09/2021 8:12 AM EDT Capsule Endoscopy Post Ingestion Patient Information Do not eat or drink for two (2) hours after you have swallowed the capsule endoscope. Two (2) hours after you have swallowed the capsule endoscope you may drink clear liquids like coffee and tea (without cream), cola drinks, apple juice, broth, and eat Jell-O or popsicles. Please do not consume anything red in color. You may also return to taking your routine medications. Four (4) hours after you have swallowed the capsule endoscope, you may return to your usual diet. You may return to your normal activities after ingesting the capsule. Please avoid vigorous exercise. You may operate electrical equipment while undergoing your capsule endoscopy. It is not likely that any household or office equipment will interfere with this examination. You may use cell phones, computers, remote TV appliances, microwaves, Neutral [employer] players and digital cameras. Because the capsule endoscopy equipment is somewhat ominous in appearance, we recommend you avoid the airport, bank and [employer] buildings. Many [employer] use a similar technology for security, it is best to avoid these environments. Avoid other patients also undergoing capsule endoscopy. Although the transmission distance is limited, it is possible that your capsule images could be altered. You may not have an MRI (a test similar to an x-ray that uses magnets in the imaging process) while the capsule endoscope remains in your body. Do not schedule a capsule endoscope and an MRI for the same day. Should you require an MRI in the future and you have not seen the capsule evacuated in your stool, discuss this with your physician. An x-ray of your abdomen can show if the capsule has been evacuated. Remove your capsule endoscopy equipment at the time indicated by your procedure nurse. 1. Loosen the Velcro Belt (if you have adhesive patches on your abdomen-remove them). 2. The equipment will come off in one piece. 3. There is nothing to turn off or take apart. 4. Place all equipment in the bag provided. 5. Your nurse may ask you to return the equipment directly to the office. The capsule endoscope will pass naturally in your stool. It is not necessary to retrieve or return the capsule. The images are stored in the equipment you have worn on your belt. You may flush the used capsule down the bathroom toilet for disposal. In some instances, patients have passed the capsule endoscope during stooling while the capsule is still actively blinking . Do not be alarmed if this happens to you. You may dispose of the capsule in the same manner. If you stopped taking your oral Iron for this examination, you may resume taking it the day after your capsule examination. . Seek medical assistance if you develop extreme abdominal pain, bloating, fever, nausea and vomiting. These may be signs of obstruction and require medical intervention. During routine business hours you may call: After Business hours: [phone] have answering service contact your physician documented in this encounter [facility] 12-09-2021 History of Present illness Narrative Patient had a capsule endoscopy. Patient swallowed the capsule without any difficulty. Referring Provider: Reason for Capsule: Patient was given discharge instructions. Ingested capsule endoscope without difficulty at 8:11 AM on 12/09/2021. documented in this encounter [facility] 12-06-2021 Miscellaneous Notes Pharmacy faxed requesting the following refill. Pending Prescriptions Disp Refills DULOXETINE 60 MG CAPSULE,DELAYED RELEASE 90 capsule 3 Sig: TAKE 1 CAPSULE ONCE DAILY. BISHOP: Yes Patient last appointment: 12/03/2021 Patient Phone numbers: [phone] (home) Request is for script(s) to be escript to pharmacy. Serenity Schroeder LPN documented in this encounter [facility] 12-03-2021 Miscellaneous Notes Pending Prescriptions Disp Refills DULOXETINE 60 MG CAPSULE,DELAYED RELEASE 90 capsule 3 Sig: Take 1 capsule by mouth once daily. BISHOP: No Elvira Mcintosh LPN December 03, 2021 8:29 AM documented in this encounter [facility] 11-26-2021 Miscellaneous Notes Ankush Guillermo is recommending the capsule since her egd was nml Can I please get an order? Thank you so much Alyssia documented in this encounter [facility] 11-26-2021 History of Present illness Narrative Patient is status post an EGD performed on 11/17/2021. Biopsies of the stomach showed no abnormalities within the stomach biopsy or the distal esophagus. Patient states that she still occasionally feels like something gets stuck in her upper esophagus. Her EGD showed no signs of malignancy or ulcers or any source of GI bleeding. Objective:Pulse 89, temperature 37.1 C (98.7 F), weight 90 kg (198 lb 6.4 oz), SpO2 98 %. Abdomen is soft and nontender Assessment:Iron deficiency anemia, unspecified iron deficiency anemia type (primary encounter diagnosis) Plan: We are going to get her back to see . He stated that he would like her to have capsule endoscopy after her EGD. Since her EGD was negative capsule endoscopy would be appropriate for further evaluation of her anemia. If she has further symptoms of dysphagia then more than likely esophageal manometry should be obtained. documented in this encounter [facility] 11-17-2021 History and physical note Images from the original note were not included. HISTORY AND PHYSICAL Katrina Serrano 1955 REFERRING PHYSICIAN: Carolina Lambert MD CHIEF COMPLAINT: Consult (EGD) HPI: The patient is a 66 year old female referred for endoscopy. Patient was actually recently seen in gastroenterology on 10/12/21, notes reviewed. Patient had been referred to GI by hem/onc for evaluation of anemia. She had a recent EGD in January 2021 without concerning findings. Katrina notes no colon complaints. Patient denies any change in bowel habits, weight changes, blood in stools, black tarry stools or abdominal pain. The patient notes a long-term history of acid reflux for which she is maintained on Protonix. Has not had prior EGD. Patient's past medical history is significant for NSCLC of right lung, atrial fibrillation, emphysema, chronic kidney disease, diaphragm paralysis. In the interim since her GI visit, patient also had COVID. She states those symptoms have fully resolved. Patient was initially scheduled to have EGD with Dr. Reyna, but due to her pulmonary issues was felt not to be a candidate for that facility. She is now referred to have this performed in [place] by one of the general surgeons. 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 Microscopic colitis Other malaise and fatigue Paroxysmal atrial fibrillation (HCC) Primary cancer of right lower lobe of lung (HCC) 03/24/2020 Shortness of breath Unspecified constipation PAST SURGICAL HISTORY PAST SURGICAL HISTORY Procedure Laterality Date BACK SURGERY HX x 3 COLONOSCOPY FLX DX W/COLLJ SPEC WHEN PFRMD 02/04/2021 COLSC FLX W/RMVL OF TUMOR POLYP LESION SNARE TQ 08/07/2008 EGD TRANSORAL BIOPSY SINGLE/MULTIPLE 06/16/2010 EXC NEUROMA HAND/FOOT XCP DIGITAL NERVE HERNIA REPAIR HX NEUROPLASTY &/TRANSPOS MEDIAN NRV CARPAL TUNNE Bilateral Carpal tunnel decomp PAST SURGICAL HISTORY OF 03/13/2020 MEDIASTINOSCOPY W/LYMPH NODE BIOPSY REPR DURAL/CSF LEAK W LAMINECTOMY RMVL LUNG OTHER THAN PNEUMONECTOMY 1 LOBE LOBECT Right 06/22/2020 Thoracotomy, right middle lobectomy, mediastinal lymph node dissection for lung cancer SIGMOIDOSCOPY FLX DX W/COLLJ SPEC BR/WA IF PFRMD 1998 Sigmoidoscopy TONSILLECTOMY HX TONSILLECTOMY PRIMARY/SECONDARY <AGE 12 Tonsillectomy CURRENT MEDICATIONS Current Outpatient Medications Medication Sig ferrous sulfate (IRON ORAL) Take 65 mg by mouth. tiZANidine (ZANAFLEX) 2 mg tablet 1 tablet twice daily. Lactobacillus acidophilus (PROBIOTIC ORAL) Take 1 tablet by mouth once daily. cholecalciferol, vitamin D3, (VITAMIN D3 ORAL) Take 1 tablet by mouth once daily. calcium phosphate dibas/vit D3 (VITAMIN D, WITH CALCIUM, ORAL) Take 250 mg by mouth once daily. rivaroxaban (XARELTO) 20 mg tablet Take 20 mg by mouth once daily. albuterol HFA (PROVENTIL HFA, VENTOLIN HFA) 90 mcg/actuation inhaler Inhale 2 Puffs as instructed every 4 hours as needed for wheezing/shortness of breath. meloxicam (MOBIC) 15 mg tablet Take 15 mg by mouth once daily. DULoxetine (CYMBALTA) 60 mg capsule Take 60 mg by mouth once daily. pantoprazole DR (PROTONIX) 40 mg tablet Take 1 tablet by mouth once daily. simvastatin (ZOCOR) 20 mg tablet Take 20 mg by mouth daily at bedtime. umeclidinium-vilanterol (ANORO ELLIPTA) 62.5-25 mcg/actuation inhaler Inhale 1 Inhalation as instructed once daily. amitriptyline (ELAVIL) 50 mg tablet Take 50 mg by mouth daily at bedtime. traMADol (ULTRAM) 50 mg tablet Take 50 mg by mouth every 6 hours as needed. calcium carbonate/vitamin D3 (OS-TESSY 500 + D3 ORAL) Take 1 tablet by mouth once daily. metoprolol tartrate, short acting, (LOPRESSOR) 25 mg tablet Take 12.5 mg by mouth twice daily. DENOSUMAB (PROLIA SUBCUTANEOUS) Inject subcutaneously once every 6 months. No current facility-administered medications for this visit. ALLERGIES: Patient has no known allergies. PERSONAL HISTORY: SOCIAL HISTORY Social History Tobacco Use Smoking status: Former Smoker Packs/day: 1.00 Years: 30.00 Pack years: 30.00 Types: Cigarettes Quit date: 03/24/2000 Years since quittin.6 Smokeless tobacco: Never Used Vaping Use Vaping Use: Never used Substance Use Topics Alcohol use: No Drug use: Never FAMILY HISTORY: FAMILY HISTORY FAMILY HISTORY Problem Relation Age of Onset other (throat cancer) Mother Heart Father Skin Cancer Brother COPD Brother Skin Cancer Brother Diabetes Son Colon Cancer No Family History REVIEW OF SYMPTOMS: The review of systems data was entered by the nurse and reviewed by mt Nursing Notes: Makayla Emmanuel RN 11/02/2021 9:08 AM Signed REVIEW OF SYSTEMS: General: The patient NOTES fatigue, denies weight loss, denies weight gain, denies feeling hot, and denies feelings of cold. Eyes: The patient denies glaucoma, denies eye injury/surgery, wears glasses or contacts. Ear/Nose/Throat: The patient denies allergies, denies hayfever, denies ear infections, and denies bloody noses. Cardiovascular: The patient denies chest pain, denies heart disease, NOTES high blood pressure,denies cardiac stent, denies prior heart attack, NOTES irregular heart beat, NOTES high cholesterol, denies poor circulation, denies heart failure, other cardiac issues, denies claudication, denies cold feet, denies peripheral arterial stent. Respiratory: The patient denies tuberculosis, denies pneumonia, NOTES frequent cough, denies pulmonary embolism, NOTES shortness of breath, and denies coughing up blood. Gastrointestinal: The patient NOTES difficulty swallowing, NOTES acid reflux, denies ulcers, denies vomiting, denies jaundice/hepatitis, denies gallbladder problems, denies black or tarry stools, NOTES hemorrhoids, denies bleeding from rectum, NOTES diverticulitis, denies constipation, NOTES diarrhea, denies loss of stool control, and NOTES hernias. Kidney/Bladder: The patient denies kidney stones, denies urine infections, and denies bloody urine. Skin: The patient denies a history of skin cancer, denies bleeding/changing moles, and denies a history of skin rash. Neurologic: The patient denies a history of epilepsy/convulsions, NOTES headaches, denies head/spinal injuries, and denies stroke/TIA. Psychiatric: The patient denies psychiatric medications, denies depression, and denies voices, denies substance abuse. Endocrine: The patient denies thyroid disorders, denies diabetes, and denies hormonal problems. Hematologic: The patient denies a history of bruising, denies bleeding, and NOTES anemia, denies blood clots. Infections: The patient denies a history of measles and mumps, denies rheumatic fever, and denies sexually transmitted diseases. Musculoskeletal: The patient NOTES back pain/injury, NOTES back problems, denies sciatica, denies knee/foot trouble, NOTES arthritis, or denies gout. When was patient's last Mammogram screening? 2021 Last Colonoscopy: 2020 Makayla Emmanuel RN I have confirmed and edited as necessary, the PFSH and ROS obtained by others. Kamilla Bradley PA-C PHYSICAL EXAMINATION: General: The patient is 66 year old female, well nourished, well hydrated in no acute distress. The patient is oriented to time, place, and person. VITALS: Blood pressure 110/72, pulse 89, temperature 36.8 C (98.2 F), height 165.1 cm (5' 5), weight 90.2 kg (198 lb 12.8 oz), SpO2 95 %. Body mass index is 33.08 kg/m . HEENT: Normal cephalic, ataumatic, pupils are equally round, sclera are anicteric, mucous membranes are moist, oropharynx is clear. Neck has no masses, asymmetry or lymphadenopathy. Respiratory: Clear to auscultation and percussion. Normal respiratory excursion and pattern. Cardiac: Examination is regular rate and rhythm. Normal S1/S2 Abdominal exam: Soft, nontender, with no palpable masses. No hepatosplenomegaly. No palpable hernias. Extremities: no clubbing, cyanosis or edema. No adenopathy. LABORATORY VALUES: As Noted RADIOLOGIC STUDIES: As Noted Assessment IMPRESSION: anemia, GERD. NSCLC PLAN: I have reviewed my findings with Dr. Guillermo. Will plan for upper endoscopy. We discussed the risks and benefits of the planned endoscopy. I have informed the patient that complications can occur including failure to complete the endoscopy and perforation. The patient had the opportunity to ask questions concerning the planned endoscopy. My staff has also explained the procedure to the patient in understandable terms and has given the patient printed material concerning the procedure. The patient freely consents to surgery. The patient was offered a surgery/procedure at a [facility] facility. I have counseled the patient regarding the risk of exposure to and/or potential harm posed by the COVID-19 virus with having a surgery/procedure at this time versus the risk of delaying the surgery/procedure. It is not possible to know either the risk of delaying the surgery or procedure or chance of getting an infection with perfect accuracy, but a joint decision was made between the patient and myself to proceed at this time with endoscopy. The patient has medical comorbidities for which we will plan for the procedure to be performed under [facility]. Patient will require PACC review and clearance prior to endoscopy Diagnoses: (D50.9) Iron deficiency anemia, unspecified iron deficiency anemia type (primary encounter diagnosis) (R13.10) Dysphagia, unspecified type (K21.9) Gastroesophageal reflux disease, unspecified whether esophagitis present Consultation requested by Dr. Lambert for an opinion regarding . My final recommendations will be communicated back to the requesting physician by way of shared Medical record or letter to requesting physician via US mail. Kamilla Bradley PA-C UPDATED HISTORY AND PHYSICAL EXAMINATION SERVICE DATE: 11/17/2021 SERVICE TIME: 10:43 AM PHYSICAL EXAM MUST BE COMPLETED ON ADMISSION The History and Physical (completed in the past 30 days) has been reviewed and the patient has been examined. The contents accurately reflect the patient's condition with the following additions or revisions since the H&P was completed. Examination indicates no changes. This H&P can be found in the attached. SIGNATURE: Johnathan Guillermo III, MD PATIENT NAME: Katrina Serrano DATE: November 17, 2021 TIME: 10:42 AM documented in this encounter [facility] 11-12-2021 Miscellaneous Notes Patient has been identified by name and date of : Yes Pending Prescriptions Disp Refills TRAMADOL 50 MG TABLET 90 tablet 1 Sig: Take 1 tablet by mouth every 6 hours as needed. MICKI Class: C-IV BISHOP: No RX INSTRUCTIONS: Patient aware RX will be sent to pharmacy. No need to nofity patient. Controlled medication - must be call in. Kiera Ford LPN documented in this encounter [facility] 11-11-2021 Miscellaneous Notes Images from the original note were not included. MD Jericho Owen She is cleared. Please note that she has a paralyzed diaphragm and wears oxygen at night so she is likely to desaturate under anesthesia Patient scheduled with [facility] in [place] with [facility] 11/17. Per Kamilla wants this done with 2 weeks. As well as pulmonary clearance from Dr. Mireles within [facility]. Can we please get the clearance to proceed for EGD on 11/17 with [facility] in [place] Thank you Henrietta documented in this encounter [facility] 11-03-2021 Miscellaneous Notes Patient has been identified by name and date of : Yes Pending Prescriptions Disp Refills SIMVASTATIN 20 MG TABLET 90 tablet 3 Sig: Take 1 tablet by mouth daily at bedtime. BISHOP: No TIZANIDINE 2 MG TABLET 90 tablet 1 Sig: Take 1 tablet by mouth twice daily. BISHOP: No RX INSTRUCTIONS: Patient aware RX will be sent to pharmacy. No need to nofity patient. Controlled medication - must be call in. Kiera Ford LPN documented in this encounter [facility] 11-02-2021 Miscellaneous Notes Patient scheduled with [facility] in [place] [facility] 11/17. Per Kamilla mcdonald this done with 2 weeks. As well as pulmonary clearance from Dr. Mireles within [facility]. Can we please get the clearance to proceed for EGD on 11/17 with [facility] in [place] Thank you Henrietta EGD cancelled for right now Henrietta Spoke to patient, will come in for a consult with Kamilla Bradley on 11/02/21 regarding EGD with [facility]. Please cancel EGD scheduled for 11/04/21 in the [facility] with [facility]. Patient called concerned that has a EGD scheduled for 11/04/21 at the [facility] with Dr Guillermo, Patient states was to have done at hospital d/t health history and lung issues. No consults noted with General Surgery. Telephone note from 10/13/21 from Ronald ALBERTO asking for order to have procedure done at [facility]. Please advise. documented in this encounter [facility] 11-02-2021 History of Present illness Narrative HISTORY AND PHYSICAL Katrina Coles Maggie 1955 REFERRING PHYSICIAN: Carolina Lambert MD CHIEF COMPLAINT: Consult (EGD) HPI: The patient is a 66 year old female referred for endoscopy. Patient was actually recently seen in gastroenterology on 10/12/21, notes reviewed. Patient had been referred to GI by hem/onc for evaluation of anemia. She had a recent EGD in January 2021 without concerning findings. Katrina notes no colon complaints. Patient denies any change in bowel habits, weight changes, blood in stools, black tarry stools or abdominal pain. The patient notes a long-term history of acid reflux for which she is maintained on Protonix. Has not had prior EGD. Patient's past medical history is significant for NSCLC of right lung, atrial fibrillation, emphysema, chronic kidney disease, diaphragm paralysis. In the interim since her GI visit, patient also had COVID. She states those symptoms have fully resolved. Patient was initially scheduled to have EGD with Dr. Reyna, but due to her pulmonary issues was felt not to be a candidate for that facility. She is now referred to have this performed in [place] by one of the general surgeons. 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 Microscopic colitis Other malaise and fatigue Paroxysmal atrial fibrillation (HCC) Primary cancer of right lower lobe of lung (HCC) 03/24/2020 Shortness of breath Unspecified constipation PAST SURGICAL HISTORY Procedure Laterality Date BACK SURGERY HX x 3 COLONOSCOPY FLX DX W/COLLJ SPEC WHEN PFRMD 02/04/2021 COLSC FLX W/RMVL OF TUMOR POLYP LESION SNARE TQ 08/07/2008 EGD TRANSORAL BIOPSY SINGLE/MULTIPLE 06/16/2010 EXC NEUROMA HAND/FOOT XCP DIGITAL NERVE HERNIA REPAIR HX NEUROPLASTY &/TRANSPOS MEDIAN NRV CARPAL TUNNE Bilateral Carpal tunnel decomp PAST SURGICAL HISTORY OF 03/13/2020 MEDIASTINOSCOPY W/LYMPH NODE BIOPSY REPR DURAL/CSF LEAK W LAMINECTOMY RMVL LUNG OTHER THAN PNEUMONECTOMY 1 LOBE LOBECT Right 06/22/2020 Thoracotomy, right middle lobectomy, mediastinal lymph node dissection for lung cancer SIGMOIDOSCOPY FLX DX W/COLLJ SPEC BR/WA IF PFRMD 1998 Sigmoidoscopy TONSILLECTOMY HX TONSILLECTOMY PRIMARY/SECONDARY <AGE 12 Tonsillectomy Current Outpatient Medications Medication Sig ferrous sulfate (IRON ORAL) Take 65 mg by mouth. tiZANidine (ZANAFLEX) 2 mg tablet 1 tablet twice daily. Lactobacillus acidophilus (PROBIOTIC ORAL) Take 1 tablet by mouth once daily. cholecalciferol, vitamin D3, (VITAMIN D3 ORAL) Take 1 tablet by mouth once daily. calcium phosphate dibas/vit D3 (VITAMIN D, WITH CALCIUM, ORAL) Take 250 mg by mouth once daily. rivaroxaban (XARELTO) 20 mg tablet Take 20 mg by mouth once daily. albuterol HFA (PROVENTIL HFA, VENTOLIN HFA) 90 mcg/actuation inhaler Inhale 2 Puffs as instructed every 4 hours as needed for wheezing/shortness of breath. meloxicam (MOBIC) 15 mg tablet Take 15 mg by mouth once daily. DULoxetine (CYMBALTA) 60 mg capsule Take 60 mg by mouth once daily. pantoprazole DR (PROTONIX) 40 mg tablet Take 1 tablet by mouth once daily. simvastatin (ZOCOR) 20 mg tablet Take 20 mg by mouth daily at bedtime. umeclidinium-vilanterol (ANORO ELLIPTA) 62.5-25 mcg/actuation inhaler Inhale 1 Inhalation as instructed once daily. amitriptyline (ELAVIL) 50 mg tablet Take 50 mg by mouth daily at bedtime. traMADol (ULTRAM) 50 mg tablet Take 50 mg by mouth every 6 hours as needed. calcium carbonate/vitamin D3 (OS-TESSY 500 + D3 ORAL) Take 1 tablet by mouth once daily. metoprolol tartrate, short acting, (LOPRESSOR) 25 mg tablet Take 12.5 mg by mouth twice daily. DENOSUMAB (PROLIA SUBCUTANEOUS) Inject subcutaneously once every 6 months. No current facility-administered medications for this visit. ALLERGIES: Patient has no known allergies. PERSONAL HISTORY: Social History Tobacco Use Smoking status: Former Smoker Packs/day: 1.00 Years: 30.00 Pack years: 30.00 Types: Cigarettes Quit date: 03/24/2000 Years since quittin.6 Smokeless tobacco: Never Used Vaping Use Vaping Use: Never used Substance Use Topics Alcohol use: No Drug use: Never FAMILY HISTORY: FAMILY HISTORY Problem Relation Age of Onset other (throat cancer) Mother Heart Father Skin Cancer Brother COPD Brother Skin Cancer Brother Diabetes Son Colon Cancer No Family History REVIEW OF SYMPTOMS: The review of systems data was entered by the nurse and reviewed by mt Nursing Notes: Makayla Emmanuel RN 11/02/2021 9:08 AM Signed REVIEW OF SYSTEMS: General: The patient NOTES fatigue, denies weight loss, denies weight gain, denies feeling hot, and denies feelings of cold. Eyes: The patient denies glaucoma, denies eye injury/surgery, wears glasses or contacts. Ear/Nose/Throat: The patient denies allergies, denies hayfever, denies ear infections, and denies bloody noses. Cardiovascular: The patient denies chest pain, denies heart disease, NOTES high blood pressure,denies cardiac stent, denies prior heart attack, NOTES irregular heart beat, NOTES high cholesterol, denies poor circulation, denies heart failure, other cardiac issues, denies claudication, denies cold feet, denies peripheral arterial stent. Respiratory: The patient denies tuberculosis, denies pneumonia, NOTES frequent cough, denies pulmonary embolism, NOTES shortness of breath, and denies coughing up blood. Gastrointestinal: The patient NOTES difficulty swallowing, NOTES acid reflux, denies ulcers, denies vomiting, denies jaundice/hepatitis, denies gallbladder problems, denies black or tarry stools, NOTES hemorrhoids, denies bleeding from rectum, NOTES diverticulitis, denies constipation, NOTES diarrhea, denies loss of stool control, and NOTES hernias. Kidney/Bladder: The patient denies kidney stones, denies urine infections, and denies bloody urine. Skin: The patient denies a history of skin cancer, denies bleeding/changing moles, and denies a history of skin rash. Neurologic: The patient denies a history of epilepsy/convulsions, NOTES headaches, denies head/spinal injuries, and denies stroke/TIA. Psychiatric: The patient denies psychiatric medications, denies depression, and denies voices, denies substance abuse. Endocrine: The patient denies thyroid disorders, denies diabetes, and denies hormonal problems. Hematologic: The patient denies a history of bruising, denies bleeding, and NOTES anemia, denies blood clots. Infections: The patient denies a history of measles and mumps, denies rheumatic fever, and denies sexually transmitted diseases. Musculoskeletal: The patient NOTES back pain/injury, NOTES back problems, denies sciatica, denies knee/foot trouble, NOTES arthritis, or denies gout. When was patient's last Mammogram screening? 2021 Last Colonoscopy: 2020 Makayla Emmanuel RN I have confirmed and edited as necessary, the PFSH and ROS obtained by others. Kamilla Bradley PA-C PHYSICAL EXAMINATION: General: The patient is 66 year old female, well nourished, well hydrated in no acute distress. The patient is oriented to time, place, and person. VITALS: Blood pressure 110/72, pulse 89, temperature 36.8 C (98.2 F), height 165.1 cm (5' 5), weight 90.2 kg (198 lb 12.8 oz), SpO2 95 %. Body mass index is 33.08 kg/m . HEENT: Normal cephalic, ataumatic, pupils are equally round, sclera are anicteric, mucous membranes are moist, oropharynx is clear. Neck has no masses, asymmetry or lymphadenopathy. Respiratory: Clear to auscultation and percussion. Normal respiratory excursion and pattern. Cardiac: Examination is regular rate and rhythm. Normal S1/S2 Abdominal exam: Soft, nontender, with no palpable masses. No hepatosplenomegaly. No palpable hernias. Extremities: no clubbing, cyanosis or edema. No adenopathy. LABORATORY VALUES: As Noted RADIOLOGIC STUDIES: As Noted Assessment IMPRESSION: anemia, GERD. NSCLC PLAN: I have reviewed my findings with Dr. Guillermo. Will plan for upper endoscopy. We discussed the risks and benefits of the planned endoscopy. I have informed the patient that complications can occur including failure to complete the endoscopy and perforation. The patient had the opportunity to ask questions concerning the planned endoscopy. My staff has also explained the procedure to the patient in understandable terms and has given the patient printed material concerning the procedure. The patient freely consents to surgery. The patient was offered a surgery/procedure at a [facility] facility. I have counseled the patient regarding the risk of exposure to and/or potential harm posed by the COVID-19 virus with having a surgery/procedure at this time versus the risk of delaying the surgery/procedure. It is not possible to know either the risk of delaying the surgery or procedure or chance of getting an infection with perfect accuracy, but a joint decision was made between the patient and myself to proceed at this time with endoscopy. The patient has medical comorbidities for which we will plan for the procedure to be performed under [facility]. Patient will require PACC review and clearance prior to endoscopy Diagnoses: (D50.9) Iron deficiency anemia, unspecified iron deficiency anemia type (primary encounter diagnosis) (R13.10) Dysphagia, unspecified type (K21.9) Gastroesophageal reflux disease, unspecified whether esophagitis present Consultation requested by Dr. Lambert for an opinion regarding . My final recommendations will be communicated back to the requesting physician by way of shared Medical record or letter to requesting physician via US mail. Kamilla Bradley PA-C documented in this encounter [facility] 11-02-2021 Nurse Note REVIEW OF SYSTEMS: General: The patient NOTES fatigue, denies weight loss, denies weight gain, denies feeling hot, and denies feelings of cold. Eyes: The patient denies glaucoma, denies eye injury/surgery, wears glasses or contacts. Ear/Nose/Throat: The patient denies allergies, denies hayfever, denies ear infections, and denies bloody noses. Cardiovascular: The patient denies chest pain, denies heart disease, NOTES high blood pressure,denies cardiac stent, denies prior heart attack, NOTES irregular heart beat, NOTES high cholesterol, denies poor circulation, denies heart failure, other cardiac issues, denies claudication, denies cold feet, denies peripheral arterial stent. Respiratory: The patient denies tuberculosis, denies pneumonia, NOTES frequent cough, denies pulmonary embolism, NOTES shortness of breath, and denies coughing up blood. Gastrointestinal: The patient NOTES difficulty swallowing, NOTES acid reflux, denies ulcers, denies vomiting, denies jaundice/hepatitis, denies gallbladder problems, denies black or tarry stools, NOTES hemorrhoids, denies bleeding from rectum, NOTES diverticulitis, denies constipation, NOTES diarrhea, denies loss of stool control, and NOTES hernias. Kidney/Bladder: The patient denies kidney stones, denies urine infections, and denies bloody urine. Skin: The patient denies a history of skin cancer, denies bleeding/changing moles, and denies a history of skin rash. Neurologic: The patient denies a history of epilepsy/convulsions, NOTES headaches, denies head/spinal injuries, and denies stroke/TIA. Psychiatric: The patient denies psychiatric medications, denies depression, and denies voices, denies substance abuse. Endocrine: The patient denies thyroid disorders, denies diabetes, and denies hormonal problems. Hematologic: The patient denies a history of bruising, denies bleeding, and NOTES anemia, denies blood clots. Infections: The patient denies a history of measles and mumps, denies rheumatic fever, and denies sexually transmitted diseases. Musculoskeletal: The patient NOTES back pain/injury, NOTES back problems, denies sciatica, denies knee/foot trouble, NOTES arthritis, or denies gout. When was patient's last Mammogram screening? 2021 Last Colonoscopy: 2020 Makayla Emmanuel RN documented in this encounter [facility] 11-01-2021 Miscellaneous Notes Nocturnal Oximetry, 2L, 10/13/2021. Recording interval: 6:09:08 High pulse: 145 Low pulse: 66 Highest spO2: 97% Lowest spO2: 82% Time with spO2 < 88%: 2.5 minutes Recommendation: It appears that the current liter flow is not meeting patients needs. Recommend increasing to 3 LPM. I have received and reviewed the outside records noted above. Lesley Boucher PA-C [facility] [place] documented in this encounter [facility] 10-22-2021 Miscellaneous Notes Patient aware of instructions, listed below. Prema Gilmore Patient tested positive for Covid 10/18 at home and 10/19 at [facility]. She can come in next week to burr picker stool cards. Pr is to hold oral iron until stool cards are completed and returned. Regina Cook LPN Please file orders. Regina Cook LPN documented in this encounter [facility] 10-22-2021 Miscellaneous Notes Patient is rescheduled, aware of time and date, pt also aware of instructions below. Prema Gilmore Patient is to hold oral iron until she returns her stool test cards. Once completed, she may resume oral iron. Please reschedule iron infusion instead of EGD. Regina Cook LPN Could her iron infusion be moved? I feel like that might be easier than moving the EGD. Aydee Poole LPN Patient calling stating her EGD and her Iron treatment fall on same day, 11/04. Patient asking which should she attend? Also asking if she is to hold iron 7 days prior to treatments? Please advise and call patient. documented in this encounter [facility] 10-20-2021 Miscellaneous Notes Patient notified of all information and given medication and quarantine instructions. Patient verbalized understanding. Regina Cook LPN Her COVID test was positive confirmed by PCR. Start molnupiravir x 5 days and monitor oxygen saturation and temperature and follow-up with PCP. She should be quarantine for 1 week. Signed Prescriptions Disp Refills molnupiravir 200 mg capsule 40 capsule 0 Sig: Take 4 capsules by mouth twice daily for 5 days. BISHOP: No Authorizing Provider: CAROLINA LAMBERT Order entered - please phone pharmacy and notify patient. Carolina Lambert MD Molnupiravir Eligibility and Patient Discussion [facility] Formulary Restriction Criteria: Adult outpatients 18 years and older with ALL of the following: [x] Patient has positive SARS-COV-2 viral test (PCR or antigen test) during current illness [x] Patient has symptoms for 5 days or less [x] Not requiring hospitalization at any time for management of COVID-19 [x] Not requiring supplemental oxygen or a change in baseline supplemental oxygen[x] Not utilized for pre-exposure or post-exposure prophylaxis for prevention of COVID-19 [x] Patient is not or lactating [x] Meeting patient criteria as below: [x] Older age (age >/= 65 years) OR [] 18 years and older with at least one of the following: [] Obesity or being overweight (BMI > 30) [] Chronic kidney diseases (Stage 4 and 5) [] Diabetes [] Cardiovascular disease including hypertension [x] COPD/other chronic respiratory disease [] Sickle cell disease [] Neurodevelopmental disorder (e.g. cerebral palsy) or other conditions that confer medical complexity (e.g. genetic or metabolic syndromes and severe congenital abnormalities) [] Medical related technological dependence (e.g. tracheostomy, gastrostomy, or positive pressure ventilation (not related to COVID-19)) OR [] 18 years and older with immunosuppressive disease or immunosuppressive therapy defined as: [] Immune-mediated inflammatory disease (rheumatoid arthritis, psoriatic arthritis, ankylosing spondylitis, psoriasis, systemic lupus erythematous, idiopathic inflammatory myositis, systemic sclerosis, primary systemic vasculitis, Sjogren s syndrome, inflammatory bowel disease) AND receiving at least one of the following [] Prednisone (equivalent of > 10 mg daily at time of infusion) [] Rituximab [] 5-ASA derivatives (e.g., sulfasalazine, mesalamine) [] Solid Organ Transplant recipients [] Post-transplant AND on immunosuppression [] Cancer center patients AND at least one of the following: [] On treatment with anti-B cell monoclonal antibodies (e.g., Rituximab, Obinutuzumab, Ofatumumab) [] On treatment with high-intensity chemotherapy regimen [] Myeloablative hematopoietic stem cell transplant recipients within 6 months of transplant or on systemic therapy for amfkt-ifucsy-uhzj disease [] CAR T-cell/other cellular therapy recipients within 6 months of infusion [] Hypogammaglobulinemia due to cancer/hematologic disease or its treatment [] Primary immunodeficiency disorder (including common variable immunodeficiency disorder and selective antibody deficiency disorder) Criteria above are met: Yes Date of Positive Test: 10/19/2021 Date of Symptom Onset: 10/21/2021 Patient received COVID vaccine: Yes -Date(s) of vaccine: 03/08/2021 / status reviewed: Females: [x] Patient is not currently and there is no possibility the patient could be (select one of the following): [] test does not need to be confirmed in patients who have undergone permanent sterilization, are currently using an intrauterine system or contraceptive implant, or in whom is not possible. [] Patients not meeting conditions above: assess whether the patient is based on the first day of the last menstrual period in individuals who have regular menstrual cycles, is using reliable method of contraception correctly and consistently or have had a negative test [] A test is recommended if the individual has irregular menstrual cycles, is unsure of the first day of the last menstrual period or is not using effective contraception correctly and consistently [] Patient is not currently . is not recommended during treatment and for four days after final dose of molnupiravir. [] Females have been advised to use a reliable method of contraception correctly and consistently for the duration of treatment and for four days after the last dose of molnupiravir Males: [] Sexually active male with partner(s) of childbearing potential has been advised to use a reliable method of contraception correctly and consistently for intercourse for the duration of treatment and for three months after the last dose of molnupiravir I have discussed the use of the investigational therapeutic, molnupiravir, for the treatment of mild to moderate COVID-19 and its use under Emergency Use Authorization with the patient. The patient was informed that molnupiravir is not an FDA approved drug and that it is authorized for use under this Emergency Use Authorization. The patient was also informed of the significant known benefits and potential risks of molnupiravir, and the extent to which such potential risks and benefits are unknown. The patient was informed that there is mandatory reporting of all medication errors and serious adverse events potentially related to molnupiravir treatment within 7 calendar days from the onset of the event and that events up to 28 days after completion of therapy need to be reported. The discussion included alternatives to receiving molnupiravir, including clinical trials, and potential the risks and benefits of those alternatives. The patient was provided electronically with the Fact Sheet for Patients, Parents and Caregivers. The patient was also instructed that in addition to the treatment with molnupiravir, he/she should continue to self-isolate and use infection control measures (e.g., wear mask, isolate, social distance, avoid sharing personal items, clean and disinfect high touch surfaces, and frequent handwashing) according to CDC guidelines. The patient stated understanding and gave verbal consent to proceeding with molnupiravir treatment. Carolina Lambert MD October 20, 2021 7:40 AM documented in this encounter [facility] 10-20-2021 Instructions Carolina Lambert MD - 10/20/2021 7:45 AM EDT Fact Sheet for Patients And Caregivers Emergency Use Authorization (EUA) Of Molnupiravir For Coronavirus Disease 2019 (COVID-19) What is the most important information I should know about molnupiravir? Molnupiravir may cause serious side effects, including: Molnupiravir may cause harm to your unborn baby. It is not known if molnupiravir will harm your baby if you take molnupiravir during . Molnupiravir is not recommended for use in . Molnupiravir has not been studied in . Molnupiravir was studied in animals only. When molnupiravir was given to animals, molnupiravir caused harm to their unborn babies. You and your healthcare provider may decide that you should take molnupiravir during if there are no other COVID-19 treatment options authorized by the FDA that are accessible or clinically appropriate for you. If you and your healthcare provider decide that you should take molnupiravir during , you and your healthcare provider should discuss the known and potential benefits and the potential risks of taking molnupiravir during . For individuals who are able to become : You should use a reliable method of control (contraception) consistently and correctly during treatment with molnupiravir and for 4 days after the last dose of molnupiravir. Talk to your healthcare provider about reliable control methods. Before starting treatment with molnupiravir your healthcare provider may do a test to see if you are before starting treatment with molnupiravir. Tell your healthcare provider right away if you become or think you may be during treatment with molnupiravir. Surveillance Program: There is a surveillance program for individuals who take molnupiravir during . The purpose of this program is to collect information about the health of you and your baby. Talk to your healthcare provider about how to take part in this program. If you take molnupiravir during and you agree to participate in the surveillance program and allow your healthcare provider to share your information with [employer], then your healthcare provider will report your use of molnupiravir during to [employer]. by calling or [email or web address]. For individuals who are sexually active with partners who are able to become : It is not known if molnupiravir can affect sperm. While the risk is regarded as low, animal studies to fully assess the potential for molnupiravir to affect the babies of males treated with molnupiravir have not been completed. A reliable method of control (contraception) should be used consistently and correctly during treatment with molnupiravir and for at least 3 months after the last dose. The risk to sperm beyond 3 months is not known. Studies to understand the risk to sperm beyond 3 months are ongoing. Talk to your healthcare provider about reliable control methods. Talk to your healthcare provider if you have questions or concerns about how molnupiravir may affect sperm. You are being given this fact sheet because your healthcare provider believes it is necessary to provide you with molnupiravir for the treatment of adults with fare-zu-cfqezfgv coronavirus disease 2019 (COVID-19) with positive results of direct SARS-CoV-2 viral testing, and who are at high risk for progressing to severe COVID-19 including hospitalization or , and for whom other COVID-19 treatment options authorized by the FDA are not accessible or clinically appropriate. The [place].S. Food and Drug Administration (FDA) has issued an Emergency Use Authorization (EUA) to make molnupiravir available during the COVID-19 pandemic (for more details about an EUA please see What is an Emergency Use Authorization? at the end of this document). Molnupiravir is not an FDA-approved medicine in the [place]. Read this Fact Sheet for information about molnupiravir. Talk to your healthcare provider about your options if you have any questions. It is your choice to take molnupiravir. What is COVID-19? COVID-19 is caused by a virus called a coronavirus. You can get COVID-19 through close contact with another person who has the virus. COVID-19 illnesses have ranged from very uifu-jm-rnpwjs, including illness resulting in . While information so far suggests that most COVID-19 illness is mild, serious illness can happen and may cause some of your other medical conditions to become worse. Older people and people of all ages with severe, long lasting (chronic) medical conditions like heart disease, lung disease and diabetes, for example seem to be at higher risk of being hospitalized for COVID-19. What is molnupiravir? Molnupiravir is an investigational medicine used to treat ugqe-cw-emzojmdt COVID-19 in adults: with positive results of direct SARS-CoV-2 viral testing, and who are at high risk for progressing to severe COVID-19 including hospitalization or , and for whom other COVID-19 treatment options authorized by the FDA are not accessible or clinically appropriate. The FDA has authorized the emergency use of molnupiravir for the treatment of mild-tomoderate COVID-19 in adults under an EUA. For more information on EUA, see the What is an Emergency Use Authorization (EUA)? section at the end of this Fact Sheet. Molnupiravir is not authorized: for use in people less than 18 years of age. for prevention of COVID-19. for people needing hospitalization for COVID-19. for use for longer than 5 consecutive days. What should I tell my healthcare provider before I take molnupiravir? Tell your healthcare provider if you: Have any allergies Are or plan to breastfeed Have any serious illnesses Are taking any medicines (prescription, ahhs-igr-bwjcnpr, vitamins, or herbal products). How do I take molnupiravir? Take molnupiravir exactly as your healthcare provider tells you to take it. Take 4 capsules of molnupiravir every 12 hours (for example, at 8 am and at 8 pm) Take molnupiravir for 5 days. It is important that you complete the full 5 days of treatment with molnupiravir. Do not stop taking molnupiravir before you complete the full 5 days of treatment, even if you feel better. Take molnupiravir with or without food. You should stay in isolation for as long as your healthcare provider tells you to. Talk to your healthcare provider if you are not sure about how to properly isolate while you have COVID-19. Swallow molnupiravir capsules whole. Do not open, break, or crush the capsules. If you cannot swallow capsules whole, tell your healthcare provider. What to do if you miss a dose: If it has been less than 10 hours since the missed dose, take it as soon as you remember If it has been more than 10 hours since the missed dose, skip the missed dose and take your dose at the next scheduled time. Do not double the dose of molnupiravir to make up for a missed dose. What are the important possible side effects of molnupiravir? Possible side effects of molnupiravir are: See, What is the most important information I should know about molnupiravir? diarrhea nausea dizziness These are not all the possible side effects of molnupiravir. Not many people have taken molnupiravir. Serious and unexpected side effects may happen. This medicine is still being studied, so it is possible that all of the risks are not known at this time. What other treatment choices are there? Like molnupiravir, FDA may allow for the emergency use of other medicines to treat people with COVID-19. Go to https://www.fda.gov/emergency-prepa wawhmtl-tuk-oubvzwxx/mcm-legalregul bpguh-ehd-wfxsot-framework/emergenc c-nap-wmrdgbmstefxk for more information. It is your choice to be treated or not to be treated with molnupiravir. Should you decide not to take it, it will not change your standard medical care. What if I am ? is not recommended during treatment with molnupiravir and for 4 days after the last dose of molnupiravir. If you are or plan to breastfeed, talk to your healthcare provider about your options and specific situation before taking molnupiravir. How do I report side effects with molnupiravir? Contact your healthcare provider if you have any side effects that bother you or do not go away. Report side effects to FDA MedWatch at www.fda.gov/medwatch or call 9-366-ZMX-2662 ( ). How should I store molnupiravir? Store molnupiravir capsules at room temperature between 68 F to 77 F (20 C to 25 C). Keep molnupiravir and all medicines out of the reach of children and pets. How can I learn more about COVID-19? Ask your healthcare provider. Visit www.cdc.gov/COVID19 Contact your local or state public health department. Call [employer] at (toll free in the [place] Visit www.[email or web address] What Is an Emergency Use Authorization (EUA)? [facility] FDA has made molnupiravir available under an emergency access mechanism called an Emergency Use Authorization (EUA) The EUA is supported by a Yarding Supervisor of Health and Human Service (HHS) declaration that circumstances exist to justify emergency use of drugs and biological products during the COVID-19 pandemic. Molnupiravir for the treatment of eqmh-om-xknkovhj COVID-19 in adults with positive results of direct SARS-CoV-2 viral testing, who are at high risk for progression to severe COVID-19, including hospitalization or , and for whom alternative COVID-19 treatment options authorized by FDA are not accessible or clinically appropriate, has not undergone the same type of review as an FDA-approved product. In issuing an EUA under the COVID-19 public health emergency, the FDA has determined, among other things, that based on the total amount of scientific evidence available including data from adequate and well-controlled clinical trials, if available, it is reasonable to believe that the product may be effective for diagnosing, treating, or preventing COVID-19, or a serious or life-threatening disease or condition caused by COVID19; that the known and potential benefits of the product, when used to diagnose, treat, or prevent such disease or condition, outweigh the known and potential risks of such product; and that there are no adequate, approved, and available alternatives. All of these criteria must be met to allow for the product to be used in the treatment of patients during the COVID-19 pandemic. The EUA for molnupiravir is in effect for the duration of the COVID-19 declaration justifying emergency use of molnupiravir, unless terminated or revoked (after which molnupiravir may no longer be used under the EUA). For patent information: www.[employer].Figma/research/patent Copyright 2020 [employer] [place], [place] and its affiliates. All rights reserved. [id number] Issued: 04/29/2021 documented in this encounter [facility] 10-19-2021 Miscellaneous Notes Schedule updated, spouse notified of canceled appts. COVID and FLU tests in EPIC Carolina Lambert MD She probably should be on Monlupiavir instead because of Xarelto interacts with Paxlovid. Carolina Lambert MD Patient is coming in for a COVID test today at [facility]. Patient has a call into her PCP regarding Paxlovid. PSR'-s please contact patient to reschedule iron 10 days out, her symptoms started yesterday, 10/18/2021. Regina Cook LPN Patient called yesterday and she was tested positive for COVID 19 (HOME TEST) She presented with symptoms yesterday and was exposed to COVID 2 days ago. She probably should not come in this week for iron sucrose. Possibly starting her on antiviral, Monlupiravir because of her lung disease and lung cancer? However, she would have to have a positive PCR test at [facility] before we could prescribe treatment. Please update her PCP regarding follow-up. Carolina Lambert MD documented in this encounter [facility] 10-18-2021 Miscellaneous Notes October 18, 2021 PID: [id number] Katrina Serrano [address] [place] [address] Dear Ms. Serrano, Your prior imaging studies have arrived and been compared to your current study. We are pleased to inform you that the results of your recent breast imaging exam on 10/14/2021 are normal. Early detection of cancer is very important. We also understand recommendations regarding breast cancer screening are controversial. Please discuss with your primary care provider which strategy is best for you and whether a mammogram is right for you. Your imaging studies and report will be kept on file at [facility] as part of your permanent medical record and are available for your continuing care. Thank you for allowing us to help in meeting your health care needs. Sincerely, Dr. Duran Interpreting Radiologist [facility] (Normal Old [employer] compared) documented in this encounter [facility] 10-14-2021 Miscellaneous Notes October 14, 2021 PID: [id number] Katrina Serrano [facility] [place] [address] Dear Ms. Serrano, Your breast imaging exam 10/14/2021 showed a possible finding that may require additional imaging studies for a complete evaluation. However, we recognize you have prior imaging studies at facilities other than [facility], and would like the opportunity to compare your recent imaging with those studies to evaluate for any change. At this time, we have requested your prior studies. If/when your prior studies arrive, a final report will be sent to your healthcare provider and/or you. In addition, you will receive a new result letter and or phone call If you need additional imaging. If we do not receive prior studies within 30 days of your exam, you will receive a reminder letter and or phone call to schedule your diagnostic imaging. Your imaging studies and reports are kept on file at [facility] as part of your permanent medical record, and are available for your continuing care. If you have any questions or concerns, please call [phone]. Thank you for choosing [facility] for your imaging needs. Sincerely, Dr. Duran Interpreting Radiologist [facility] ([employer]) documented in this encounter [facility] 10-14-2021 History of Present illness Narrative Radiology Service Progress Note PATIENT NAME: Katrina Serrano DATE OF SERVICE: October 14, 2021 TIME: 11:34 AM PATIENT IDENTITY VERIFICATION COMPLETED USING TWO (2) IDENTIFIERS: Name and Date of confirmed by patient verbally. FALL SCREENING: Has the patient had 2 falls in the last year or 1 fall with injury or currently using an Ambulatory Assistive Device (Walker, Cane, Wheelchair, Crutches, etc.)? No PATIENT GENDER DATA: Female. status: : No status: NO. 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 Labs 10/08/21 This consult was requested by Carolina Lambert MD for an opinion regarding anemia. My final recommendations will be communicated to the requesting health care provider by way of the shared medical record for internal providers or letter via the [employer] for external providers. HPI: Katrina Serrano is a 65 year old female who presents for Anemia (H/O colitis. Labs 10/08/21). The patient denies any melena or hematochezia; colonoscopy was done 01/2021; was normal. Never had EGD; has had acid reflux for many years; taking Protonix. Going to receive intravenous iron infusion in near future. Record Review: [facility] / Outside records reviewed. 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 Microscopic colitis Other malaise and fatigue Paroxysmal atrial fibrillation (HCC) Primary cancer of right lower lobe of lung (HCC) 03/24/2020 Shortness of breath Unspecified constipation PAST SURGICAL HISTORY Procedure Laterality Date BACK SURGERY HX x 3 COLONOSCOPY FLX DX W/COLLJ SPEC WHEN PFRMD 02/04/2021 COLSC FLX W/RMVL OF TUMOR POLYP LESION SNARE TQ 08/07/2008 EGD TRANSORAL BIOPSY SINGLE/MULTIPLE 06/16/2010 EXC NEUROMA HAND/FOOT XCP DIGITAL NERVE HERNIA REPAIR HX NEUROPLASTY &/TRANSPOS MEDIAN NRV CARPAL TUNNE Bilateral Carpal tunnel decomp PAST SURGICAL HISTORY OF 03/13/2020 MEDIASTINOSCOPY W/LYMPH NODE BIOPSY REPR DURAL/CSF LEAK W LAMINECTOMY RMVL LUNG OTHER THAN PNEUMONECTOMY 1 LOBE LOBECT Right 06/22/2020 Thoracotomy, right middle lobectomy, mediastinal lymph node dissection for lung cancer SIGMOIDOSCOPY FLX DX W/COLLJ SPEC BR/WA IF PFRMD 1998 Sigmoidoscopy TONSILLECTOMY HX TONSILLECTOMY PRIMARY/SECONDARY <AGE 12 Tonsillectomy Allergies: ALLERGIES No Known Allergies Medications: tiZANidine (ZANAFLEX) 2 mg tablet 1 tablet twice daily. Lactobacillus acidophilus (PROBIOTIC ORAL) Take 1 tablet by mouth once daily. cholecalciferol, vitamin D3, (VITAMIN D3 ORAL) Take 1 tablet by mouth once daily. calcium phosphate dibas/vit D3 (VITAMIN D, WITH CALCIUM, ORAL) Take 250 mg by mouth once daily. rivaroxaban (XARELTO) 20 mg tablet Take 20 mg by mouth once daily. albuterol HFA (PROVENTIL HFA, VENTOLIN HFA) 90 mcg/actuation inhaler Inhale 2 Puffs as instructed every 4 hours as needed for wheezing/shortness of breath. meloxicam (MOBIC) 15 mg tablet Take 15 mg by mouth once daily. DULoxetine (CYMBALTA) 60 mg capsule Take 60 mg by mouth once daily. pantoprazole DR (PROTONIX) 40 mg tablet Take 1 tablet by mouth once daily. simvastatin (ZOCOR) 20 mg tablet Take 20 mg by mouth daily at bedtime. umeclidinium-vilanterol (ANORO ELLIPTA) 62.5-25 mcg/actuation inhaler Inhale 1 Inhalation as instructed once daily. amitriptyline (ELAVIL) 50 mg tablet Take 50 mg by mouth daily at bedtime. traMADol (ULTRAM) 50 mg tablet Take 50 mg by mouth every 6 hours as needed. calcium carbonate/vitamin D3 (OS-TESSY 500 + D3 ORAL) Take 1 tablet by mouth once daily. metoprolol tartrate, short acting, (LOPRESSOR) 25 mg tablet Take 12.5 mg by mouth twice daily. DENOSUMAB (PROLIA SUBCUTANEOUS) Inject subcutaneously once every 6 months. FAMILY HISTORY Problem Relation Age of Onset other (throat cancer) Mother Heart Father Skin Cancer Brother COPD Brother Skin Cancer Brother Diabetes Son Colon Cancer No Family History Employer And Job Title: [employer] (No job title specified); [employer] ([employer]) Years Of Education Completed: Not specified Marital Status: to Ryan with 1 child Social History Tobacco Use Smoking status: Former Smoker Packs/day: 1.00 Years: 30.00 Pack years: 30.00 Types: Cigarettes Quit date: 03/24/2000 Years since quittin.5 Smokeless tobacco: Never Used Vaping Use Vaping Use: Never used Substance Use Topics Alcohol use: No Drug use: Never Review of Systems: Review of Systems Constitutional: Positive for fatigue. HENT: Positive for mouth sores. Respiratory: Positive for cough and shortness of breath. All other systems reviewed and are negative. Are you taking any blood thinners? No Physical Examination: BP 100/70 Pulse 70 Ht 5' 5 (1.65m) Wt 200 lb (90.7kg) BMI 33.28 kg/(m^2). Physical Exam Vitals reviewed. Constitutional: Appearance: She is well-developed. HENT: Head: Normocephalic. Eyes: Conjunctiva/sclera: Conjunctivae normal. Pupils: Pupils are equal, round, and reactive to light. Cardiovascular: Rate and Rhythm: Normal rate and regular rhythm. Heart sounds: Normal heart sounds. Pulmonary: Effort: Pulmonary effort is normal. Breath sounds: Normal breath sounds. Abdominal: General: Bowel sounds are normal. Palpations: Abdomen is soft. Musculoskeletal: General: Normal range of motion. Cervical back: Normal range of motion and neck supple. Skin: General: Skin is warm and dry. Neurological: Mental Status: She is alert and oriented to person, place, and time. Deep Tendon Reflexes: Reflexes are normal and symmetric. Psychiatric: Behavior: Behavior normal. Thought Content: Thought content normal. Judgment: Judgment normal. ASSESSMENT: Other iron deficiency anemia PLAN: Office Visit on 10/12/21 EGD DIAGNOSTIC Capsule endoscopy if above test is negative I have confirmed and edited as necessary, the PFSH and ROS obtained by others. Return in about 3 months (around 01/12/2022). Jhonathan Reyna MD DATE: 10/12/21 TIME: 10:16 AM documented in this encounter [facility] 10-12-2021 Miscellaneous Notes SOCIAL WORK FOLLOW UP NOTE: [facility] Date of service: October 12, 2021 Katrina Serrano is being seen for a follow up social work visit. Today's visit includes: patient not present TOPICS ADDRESSED: Coping/support; SW called patient regarding distress assessment score and (+) #9. Patient unavailable, so SW left a message with direct call back number. SW will attempt to call again this afternoon if patient has not called back. PLAN: Continue follow up as needed F/U APPOINTMENT: PRN Assigned SW listed in Care Team tab: Yes JEANETTE Duran Unable To Reach Patient documented in this encounter [facility] 10-11-2021 Instructions Carolina Lambert MD - 10/11/2021 9:19 AM EDT After GI evaluation; you can take OTC iron supplement Slow FE 65 mg twice daily. documented in this encounter [facility] 10-11-2021 Nurse Note Est. Pt, discuss recent labs and CT results. Danita Braga LPN documented in this encounter [facility] 10-11-2021 History of Present illness Narrative PATIENT NAME: Katrina Serrano. CLINIC NO: [id number]. ATTENDING PHYSICIAN: Carolina Lambert MD. DATE OF SERVICE: 10/11/2021. 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 HPI: 65-year-old lady with history of 30 pounds pack smoking quit 20 years ago, hypertension, osteopenia who presented with stage III lung cancer last year. She had a PET CT scan for evaluation of lung nodule on 02/04/2020. PET scan showed increased activity in the lateral right lower lobe lesion SUV 2.9. There was also increased activity in the precarinal level, mediastinum right thoracic prehilum area. SUV 3.2. No other evidence of metastatic disease. She saw Dr. Kira Toscano on 03/12/2020 for mediastinoscopy on 03/13/20 and possible robotic right lower lobe resection Her pathology unfortunately revealed metastatic adenocarcinoma at level 2 mediastinal lymph node. Treatment history: Neoadjuvant 4500 cGy in 25 fractions treating to the 97&99.4% isodose line with 6 MV and 7 tarango. IGRT with daily CBCTs. Concurrent chemotherapy with Cisplatin/Etoposide x 2 cycles ( 04/06/20 to 05/12/20 ) SURGICAL HX: 03/13/2020: Mediastinoscopy 06/22/2020: Right thoracotomy, right middle lobectomy with mediastinal and hilar lymph node dissection, and vascularized pedicle tissue buttress of bronchial stump. Surgical Pathology: FINAL DIAGNOSIS 03/13/2020 1. Lymph node, right level 3, right level 2, excision (A, D) - Metastatic adenocarcinoma. 2. Lymph nodes, level 7, level 4 left area, excision (B-C) - Lymph nodes; negative for neoplasm. FINAL DIAGNOSIS 06/22/2020 1. Lung, right middle lobe, lobectomy (A) - Adenocarcinoma (1 cm), solid predominant (90%) with additional acinar pattern (10%), with focal fibrosis consistent with prior chemoradiation (See synoptic template). - Greater than 90% tumor is viable. - Lymphatic invasion present. - Visceral pleural invasion present. - Margins negative. 2. Lymph node, level 11R, excision (B) - Negative for tumor (0/1). 3. Lymph node, level 10R, excision (C) - Metastatic adenocarcinoma (1/1). - Extranodal extension present. 4. Lymph nodes, levels 7 and 8 subcarinal, excision (D) - Two lymph nodes, negative for tumor (0/2). 5. Lymph node, level 4R, excision (E) - Metastatic adenocarcinoma (1/). - Extranodal extension present. 6. Lymph nodes, levels 2R and 4R, excision (F) - Metastatic adenocarcinoma involving eight of ten lymph nodes (8/10), and fibrosis consistent with prior chemoradiation. - Extranodal extension present. Patric 06/24/2020 SYNOPTIC REPORT OF MELGAR PATHOLOGIC FINDINGS RIGHT MIDDLE LOBE LUNG: LUNG RESECTION WORKSHEET Procedure: Lobectomy Specimen Laterality: Right Tumor Site: Middle lobe Tumor Size: Total tumor size (size of entire tumor) Greatest dimension: 1 cm Additional dimensions: 0.5 cm Additional dimensions: 0.5 cm Tumor Focality: Single focus Histologic Type: Invasive adenocarcinoma, solid predominant Other Subtypes Present (specify subtype(s), may also include percentages): acinar Histologic Grade: G3: Poorly differentiated Visceral Pleura Invasion: Present Direct Invasion of Adjacent Structures: No adjacent structures present Margins: All margins uninvolved by tumor Margins examined (specify): Bronchial,Vascular,Parenchymal Distance of invasive carcinoma from closest margin: 50 mm Specify closest margin: Parenchymal, vascular and bronchial Bronchial Margin: Uninvolved by invasive carcinoma Vascular Margin: Uninvolved by invasive carcinoma Parenchymal Margin: Uninvolved by invasive carcinoma Treatment Effect: Greater than 10% residual viable tumor Lymph-Vascular Invasion: Present Lymphatic Extranodal Extension: Present Pathologic Stage Classification (pTNM, AJCC 8th ed) TNM Descriptors: y (post-treatment) Primary Tumor (pT): pT2a: Tumor >3 cm but <=4 cm or <=3 cm having any of the following features: Involves the main bronchus regardless of distance to the ginger, but without involvement of the ginger; Invades visceral pleura (PL1 or PL2); or Associated with atelectasis or obstructive pneumonitis that extends to the hilar region, involving part or all of the lung. 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 She currently has no diarrhea. She denied blood in her stool or black tarry stool. She denies abdominal pain or jaundice. No nausea or vomiting. She is doing well on oxygen at home. She did not use her required oxygen when she was down in [place]. She has no cough or shortness of breath. She denies frequent headaches, dizziness or lightheadedness. Although she complained of restless leg and pica. All medications & allergies updated and reviewed by me. REVIEW OF SYSTEMS: CONSTITUTIONAL: No fevers, chills, nightsweats, unintended weight loss HEENT: Denies frequent or severe heaches, nasal congestion/sinus symptoms, problematic allergy problems. EYES: No diplopia or blurry vision. CARDIOVASCULAR: No chest pain, dyspnea, palpitations, orthopnea, PND, ankle edema. PULM: No dyspnea, unexplained cough. GI: no problematic reflux, constipation, diarrhea, changes in stool habits, hematochezia, melena. : No new urinary complaints, including dysuria, gross hematuria or pyuria. NEURO: No new balance problems, peripheral weakness/paresthesias or numbness of concern. MUSC-SKEL: No new joint pain, swelling, or erythema. PSY: No concerns regarding depression, anxiety or panic. INTEGUMENTARY: No new skin changes (rash, new or changing mole, new growth) PHYSICAL EXAMINATION: 65-year-old well-nourished well-developed female in no acute distress Performance status 80% BP 106/66 Pulse 77 Temp 97.2 Wt 200 lb (90.7kg) SpO2 95[Oxygen @ 2 L/M]% HEENT: Head is normocephalic, atraumatic. Sclerae white, conjunctivae pink. PEERL. EOMs are intact. Oropharynx is benign. +pallor LYMPHATICS: There is no palpable adenopathy in the neck, supraclavicular region, axillae, or groin. LUNGS: Lungs are clear to percussion and auscultation. HEART: Heart is normal without murmurs, gallops, or rubs. ABDOMEN: Soft and nontender without organomegaly. No masses can be palpated. EXTREMITIES: Are without edema. NEUROLOGIC: Exam is physiologic LABORATORY DATA: Component Latest Ref Rng & Units 10/08/2021 WBC 3.70 - 11.00 k/uL 5.29 RBC 3.90 - 5.20 m/uL 3.17 (L) Hemoglobin 11.5 - 15.5 g/dL 9.1 (L) Hematocrit 36.0 - 46.0 % 28.9 (L) MCV 80.0 - 100.0 fL 91.2 MCH 26.0 - 34.0 pg 28.7 MCHC 30.5 - 36.0 g/dL 31.5 RDW-CV 11.5 - 15.0 % 14.0 Platelet Count 150 - 400 k/uL 286 MPV 9.0 - 12.7 fL 9.2 Neut% % 68.9 Abs Neut (ANC) 1.45 - 7.50 k/uL 3.65 Lymph% % 18.5 Abs Lymph 1.00 - 4.00 k/uL 0.98 (L) [place]% % 5.9 Abs [place] <0.87 k/uL 0.31 Eosin% % 5.3 Abs Eosin <0.46 k/uL 0.28 Baso% % 0.8 Abs Baso <0.11 k/uL 0.04 Immature Gran % % 0.6 IMMATURE GRANS (ABS) <0.10 k/uL 0.03 NRBC /100 WBC 0.0 Absolute nRBC <0.01 k/uL <0.01 DTYPE Auto Component Latest Ref Rng & Units 10/08/2021 Iron 41 - 186 ug/dL 31 (L) TIBC 232 - 386 ug/dL 379 Transferrin Saturation 15 - 57 % 8 (L) Retic % 0.4 - 2.0 % 1.9 Abs Retic 0.018 - 0.100 M/uL 0.060 Folate >4.7 ng/mL 14.2 Vitamin B12 232-1,245 pg/mL 290 Ferritin 14.7 - 205.1 ng/mL 11.3 (L) Component Latest Ref Rng & Units 10/08/2021 Protein, Total 6.3 - 8.0 g/dL 7.2 Albumin 3.9 - 4.9 g/dL 3.8 (L) Calcium 8.5 - 10.2 mg/dL 9.8 Bilirubin, Total 0.2 - 1.3 mg/dL 0.2 Alkaline Phosphatase 34 - 123 U/L 123 AST 13 - 35 U/L 17 ALT 7 - 38 U/L 9 Glucose 74 - 99 mg/dL 89 BUN 7 - 21 mg/dL 17 Creatinine 0.58 - 0.96 mg/dL 1.58 (H) Sodium 136 - 144 mmol/L 139 Potassium 3.7 - 5.1 mmol/L 4.2 Chloride 97 - 105 mmol/L 104 CO2 22 - 30 mmol/L 27 Anion Gap 9 - 18 mmol/L 8 (L) eGFR >=60 mL/min/1.73m 36 (L) CT CHEST:COMPARISON: Comparison is made to prior CT chest study dated June, 03/01/2021, 15 August 2020 and 24 August 2020. IMPRESSION: Stable CT scan of the chest. Postsurgical and post radiation treatment changes of the right lung with volume loss and right hilar/paramediastinal scarring and bronchiectasis. No interval developing suspicious pulmonary nodules or masses. ASSESSMENT: 65 year-old lady with history of tobacco use who presented with a stage 3A, T2, N2 M0, non-small cell lung cancer, adenocarcinoma right lower lobe. (PD-L1 expression 100%). No targetable mutations on lung panel. Completed trimodality therapy about 1 year ago. 1) lung cancer -Status post Right thoracotomy, right middle lobectomy with mediastinal and hilar lymph node dissection. DIMITRIS - completed trimodality therapy 16 months ago. -Dyspnea secondary to combination of mild COPD and restrictive lung disease from radiation therapy and surgery. -Stable on oxygen supplement 2) anemia secondary to stage 3a chronic renal failure -Iron deficiency with a modest drop in her hemoglobin since last year. 3) history of collagenous colitis and diarrhea secondary to duravalumab versus other causes. -Resolved after immunotherapy was discontinued. PLAN: -Portable oxygen 2 liters continuous with activity for dyspnea. -Replace iron sucrose 200 mg IV x 5. We discussed possibility of erythropoietin injection for treatment of anemia if this get worse or if she has symptomatic. -Follow up with GI for evaluation for iron deficiency anemia. -Repeat CBC & iron study and CXR OV in 3 months -CT chest without contrast in 6 months. I spent 30 minutes in the visit, with more than 50% of the total [id number] time of the visit in counseling / coordination of care. Portions of this documentation were copied and pasted from previous office visit notes in order to provide a cohesive continuity of the history. The note has been reviewed and edited and updated as necessary. Cc: MD Maylin Cyr, DRY YARD WORKER Dr. Oscar Mireles documented in this encounter [facility] 10-08-2021 Miscellaneous Notes Completed. Regina Cook LPN Add additional labs for anemia. documented in this encounter [facility] 10-08-2021 History of Present illness Narrative Radiology Service Progress Note PATIENT NAME: Katrina Serrano DATE OF SERVICE: October 08, 2021 TIME: 3:16 PM PATIENT IDENTITY VERIFICATION COMPLETED USING TWO (2) IDENTIFIERS: Name and Date of confirmed by patient verbally. FALL SCREENING: Has the patient had 2 falls in the last year or 1 fall with injury or currently using an Ambulatory Assistive Device (Walker, Cane, Wheelchair, Crutches, etc.)? No PATIENT GENDER DATA: Female. status: : No status: NO. PATIENT RELEVANT IMPLANT DATA REVIEWED: Not Applicable RADIOLOGY DEPARTMENT: CT; Exam(s) Completed: Chest PERIPHERAL IV DATA: Not applicable SIGNED BY: RT Mili(R) October 08, 2021 3:16 PM documented in this encounter [facility] 09-10-2021 Instructions Oscar Mireles MD - 09/10/2021 10:08 AM EDT Oxygen [employer] will send you an oximeter for testing Obtain nasal saline for moisture documented in this encounter [facility] 09-10-2021 History of Present illness Narrative Images from the original note were not included. . Respiratory [place] Note Patient name: Katrina Serrano PCP: Dennis Marcial MD Oncology: Carolina Lambert MD CC: Shortness of breath Note: Part of following note copied forward from [facility] 04/20/2021 HPI: Katrina Serrano 65 year old female former [id number] smoker with PMH significant for emphysema/COPD on oxygen, GERD, AF, CKD and lung cancer recently seen for evaluation of shortness of breath. Cancer history dates back to Jan 2020 when she presented with a PET avid right lung nodule. S/p mediastinoscopy with possible robotic lobectomy, found to have positive LN. Treatment consisted of neoadjuvant XRT/cisplatin/etoposide. Subsequent RML lobectomy and LN dissection 06/2020. 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 PFT showed restriction (TLC 3.37 L 64%) and chest CT is pertinent for markedly elevated right hemidiaphragm. 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 She has been on an oral Ellipta for her underlying COPD. She has been using 1 to 2 L of oxygen during the day. At the time of discharge from the hospital she had qualified for oxygen but did not like using her oxygen concentrator so she sent her equipment back. Her current oxygen is an [employer] POC that she purchased directly. Uses her oxygen as needed during the day for dyspnea. Most recent CT of her chest did not show any evidence of recurrence of her lung cancer. She has complaints mainly of persistent fatigue. She states that she does not sleep well and does not feel rested in the morning upon awakening. She feels some intermittent chest congestion but unable to expectorate any phlegm. No wheezing or chest pain. Last upper respiratory infection was in April when she traveled to [place]. Treated with antibiotics and steroids. She states that she felt so much better on oral steroids. DATA: Labs: Component Ref Range & Units 2 mo ago WBC 3.70 - 11.00 k/uL 4.56 RBC 3.90 - 5.20 m/uL 3.18 Low Hemoglobin 11.5 - 15.5 g/dL 9.7 Low Hematocrit 36.0 - 46.0 % 30.7 Low MCV 80.0 - 100.0 fL 96.5 MCH 26.0 - 34.0 pg 30.5 MCHC 30.5 - 36.0 g/dL 31.6 RDW-CV 11.5 - 15.0 % 14.7 Platelet Count 150 - 400 k/uL 227 MPV 9.0 - 12.7 fL 9.3 Neut% % 61.0 Abs Neut 1.45 - 7.50 k/uL 2.78 Lymph% % 23.7 Abs Lymph 1.00 - 4.00 k/uL 1.08 Bonneville% % 10.1 Abs [place] <0.87 k/uL 0.46 Eosin% % 4.4 Abs Eosin <0.46 k/uL 0.20 Baso% % 0.4 Abs Baso <0.11 k/uL <0.03 Immature Gran % % 0.4 Abs Immature Gran <0.10 k/uL <0.03 NRBC /100 WBC 0.0 Absolute nRBC <0.01 k/uL <0.01 Diff Type Auto Imaging / Diagnostic Studies: DATE OF EXAM: Jul 05 2021 12:19PM [facility] [id number] - CT CHEST WO IVCON / EXAMINATION: CHEST CT WITHOUT CONTRAST Comparison: CT chest dated March 01, 2021 RESULT: Limitations: None. Lines, tubes, and devices: None. Lung parenchyma and airways: Status post right middle lobectomy with stable postradiation/treatment related changes in the right hilar/paramediastinal region with bandlike opacity with associated traction bronchiectasis. Stable mild scarring at the right lung base. No new or enlarging pulmonary nodule identified. Pleural space: No pleural effusion. No pleural thickening. Lower neck, lymph nodes, and mediastinum: The imaged thyroid gland demonstrates a stable densely calcified right thyroid nodule.. No lymphadenopathy in the supraclavicular, axillary, mediastinal, or hilar regions. Heart, pericardium, and thoracic vessels: The thoracic aorta and main pulmonary artery are normal in caliber. The cardiac chambers are normal in size. No coronary artery atherosclerotic calcifications are noted, although the study is not optimized for coronary assessment. No pericardial effusion or thickening. Bones and soft tissues: Degenerative changes in the spine. Stable mild superior endplate compression deformity of T12. Upper abdomen: Stable 1.5 cm left adrenal nodule and stable left adrenal thickening. Electro Mechanical Technologist (topogram) images: Status post fusion of the lower lumbar spine. IMPRESSION: 1. Stable appearance of the chest with stable postsurgical/treatment related changes. 2. Stable left adrenal nodule. DATE OF EXAM: Apr 28 2021 11:35AM MDX [id number] - GI FLUORO CHEST SNIFF TEST / RESULT: Findings: The LEFT hemidiaphragm is in a normal fashion radiation and expiration. RIGHT hemidiaphragm is elevated and shows very little if any motion on inspiration. Also shows some paradoxical motion with inspiration IMPRESSION: RIGHT hemidiaphragm is elevated and does not appear to show normal movement as discussed. 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 umeclidinium-vilanterol (ANORO ELLIPTA) 62.5-25 mcg/actuation inhaler Inhale 1 Inhalation as instructed once daily. Lactobacillus acidophilus (PROBIOTIC ORAL) Take 1 tablet by mouth once daily. cholecalciferol, vitamin D3, (VITAMIN D3 ORAL) Take 1 tablet by mouth once daily. calcium phosphate dibas/vit D3 (VITAMIN D, WITH CALCIUM, ORAL) Take 250 mg by mouth once daily. rivaroxaban (XARELTO) 20 mg tablet Take 20 mg by mouth once daily. budesonide, enteric coated (ENTOCORT EC) 3 mg 24 hr capsule Take 3 mg by mouth once daily. meloxicam (MOBIC) 15 mg tablet Take 15 mg by mouth once daily. DULoxetine (CYMBALTA) 60 mg capsule Take 60 mg by mouth once daily. pantoprazole DR (PROTONIX) 40 mg tablet Take 1 tablet by mouth once daily. simvastatin (ZOCOR) 20 mg tablet Take 20 mg by mouth daily at bedtime. amitriptyline (ELAVIL) 50 mg tablet Take 50 mg by mouth daily at bedtime. traMADol (ULTRAM) 50 mg tablet Take 50 mg by mouth every 6 hours as needed. calcium carbonate/vitamin D3 (OS-TESSY 500 + D3 ORAL) Take 1 tablet by mouth once daily. metoprolol tartrate, short acting, (LOPRESSOR) 25 mg tablet Take 12.5 mg by mouth twice daily. DENOSUMAB (PROLIA SUBCUTANEOUS) Inject subcutaneously once every 6 months. Social History Tobacco Use Smoking status: Former Smoker Packs/day: 1.00 Years: 30.00 Pack years: 30.00 Types: Cigarettes Quit date: 03/24/2000 Years since quittin.4 Smokeless tobacco: Never Used Vaping Use Vaping Use: Never used Substance Use Topics Alcohol use: No Drug use: Never PMH, Social history, family history and surgical history reviewed and updated in EMR REVIEW OF SYSTEMS: CONSTITUTIONAL: No fevers, chills, nightsweats, unintended weight loss. Persistent fatigue, poor sleep HEENT: Denies headaches. Nasal dryness with occasional blood EYES: No diplopia or blurry vision. CARDIOVASCULAR: No chest pain, palpitations, orthopnea, PND, edema. PULM: See HPI GI: No dysphagia/odynophagia, problematic reflux, constipation. Intermittent diarrhea : No new urinary complaints, including dysuria, gross hematuria or pyuria. NEURO: No new balance problems, peripheral weakness/paresthesias or numbness of concern. MUSC-SKEL: No new joint pain, swelling, or erythema. PSY: No concerns regarding depression, anxiety. Some mood adjustment disorder. Having trouble excepting her diagnoses INTEGUMENTARY: No new skin changes or rash PHYSICAL EXAMINATION: BP 114/78 Pulse 93 Resp 16 Wt 198 lb (89.8kg) SpO2 96[2L]% General Appearance: Obese female no acute distress Skin: Skin color, texture, turgor normal, no suspicious rashes or lesions. Head: Normocephalic, no masses, lesions, tenderness or abnormalities. Eyes: Sclera, conjunctiva normal Oropharynx: Normal oral mucosa, no dryness, no oral lesions or thrush Neck: No jugular venous distention, no masses, palpable left anterior cervical lymph node Lungs: Not labored, dullness to percussion right base, no wheezes or crackles Heart: Regular rate and rhythm, no murmurs or gallops Extremities: No edema or clubbing Assessment/Plan: 1. Paralyzed hemidiaphragm -Persistent fatigue may be related to nocturnal hypoxemia in light of her underlying emphysema and her paralyzed hemidiaphragm -If no improvement after 4 years, changes will be permanent -Agreeable to repeat overnight oximetry testing and oxygen concentrator if needed 2. Centrilobular emphysema -Continue Anoro Ellipta with as needed albuterol 3. Lung cancer, right lower lobe -On current treatment plan per oncology -No evidence of recurrence on last CT 06/2021 4. Former cigarette smoker -Former 30-gjjh-hdfd smoker having quit in 1999 with sequelae of lung cancer and emphysema -Continued tobacco free state Oscar Mireles MD Res[facility] [place] documented in this encounter [facility] 04-28-2021 Note HNO ID: [id number] Author: XENA Lucero Service: Radiology Author Type: Technologist Type: Progress Notes Filed: 04/28/2021 11:55 AM Note Text: Radiology Service Progress Note PATIENT NAME: Katrina Serrano DATE OF SERVICE: April 28, 2021 TIME: 11:55 AM PATIENT IDENTITY VERIFICATION COMPLETED USING TWO (2) IDENTIFIERS: Name and Date of confirmed by patient verbally. FALL SCREENING: Has the patient had 2 falls in the last year or 1 fall with injury or currently using an Ambulatory Assistive Device (Walker, Cane, Wheelchair, Crutches, etc.)? No PATIENT GENDER DATA: Female. status: : No status: NO. PATIENT RELEVANT IMPLANT DATA REVIEWED: Not Applicable RADIOLOGY DEPARTMENT: General X-ray: Exam(s) Completed: GI/ Procedure(s): Chest airway fluoro PERIPHERAL IV DATA: Not applicable SIGNED BY: XENA Lucero April 28, 2021 11:55 AM [facility] 08-21-2020 History of Past i llness Narrative Problem Noted Date Resolved Date Malignant neoplasm of unspec ified part of unspecified bronchus or lung 08/21/2020 09/10/2021 Diarrhea 04/06/2009 02/04/2021 documented as of this encounter (statuses as of 09/10/2021) [address] History of Past illness Narrative* Problem Noted Date Resolved Date Malignant neoplasm of unspec ified part of unspecified bronchus or lung 08/21/2020 09/10/2021 Diarrhea 04/06/2009 02/04/2021 documented as of this encounter (statuses as of 10/08/2021) [address] History of Past illness Narrative* Problem Noted Date Resolved Date Malignant neoplasm of unspec ified part of unspecified bronchus or lung 08/21/2020 09/10/2021 Diarrhea 04/06/2009 02/04/2021 documented as of this encounter (statuses as of 10/09/2021) [address] History of Past illness Narrative* Problem Noted Date Resolved Date Malignant neoplasm of unspec ified part of unspecified bronchus or lung 08/21/2020 09/10/2021 Diarrhea 04/06/2009 02/04/2021 documented as of this encounter (statuses as of 10/12/2021) [address] History of Past illness Narrative* Problem Noted Date Resolved Date Malignant neoplasm of unspec ified part of unspecified bronchus or lung 08/21/2020 09/10/2021 Diarrhea 04/06/2009 02/04/2021 documented as of this encounter (statuses as of 10/12/2021) [address] History of Past illness Narrative* Problem Noted Date Resolved Date Malignant neoplasm of unspec ified part of unspecified bronchus or lung 08/21/2020 09/10/2021 Diarrhea 04/06/2009 02/04/2021 documented as of this encounter (statuses as of 10/12/2021) [address] History of Past illness Narrative* Problem Noted Date Resolved Date Malignant neoplasm of unspec ified part of unspecified bronchus or lung 08/21/2020 09/10/2021 Diarrhea 04/06/2009 02/04/2021 documented as of this encounter (statuses as of 10/14/2021) [place] [id number] History of Past illness Narrative* Problem Noted Date Resolved Date Malignant neoplasm of unspec ified part of unspecified bronchus or lung 08/21/2020 09/10/2021 Diarrhea 04/06/2009 02/04/2021 documented as of this encounter (statuses as of 10/15/2021) [address]21 History of Past illness Narrative* Problem Noted Date Resolved Date Malignant neoplasm of unspec ified part of unspecified bronchus or lung 08/21/2020 09/10/2021 Diarrhea 04/06/2009 02/04/2021 documented as of this encounter (statuses as of 10/16/2021) [address] History of Past illness Narrative* Problem Noted Date Resolved Date Malignant neoplasm of unspec ified part of unspecified bronchus or lung 08/21/2020 09/10/2021 Diarrhea 04/06/2009 02/04/2021 documented as of this encounter (statuses as of 10/18/2021) [address] History of Past illness Narrative* Problem Noted Date Resolved Date Malignant neoplasm of unspec ified part of unspecified bronchus or lung 08/21/2020 09/10/2021 Diarrhea 04/06/2009 02/04/2021 documented as of this encounter (statuses as of 10/19/2021) [address]21 History of Past illness Narrative* Problem Noted Date Resolved Date Malignant neoplasm of unspec ified part of unspecified bronchus or lung 08/21/2020 09/10/2021 Diarrhea 04/06/2009 02/04/2021 documented as of this encounter (statuses as of 10/20/2021) [address] History of Past illness Narrative* Problem Noted Date Resolved Date Malignant neoplasm of unspec ified part of unspecified bronchus or lung 08/21/2020 09/10/2021 Diarrhea 04/06/2009 02/04/2021 documented as of this encounter (statuses as of 10/20/2021) [address] History of Past illness Narrative* Problem Noted Date Resolved Date Malignant neoplasm of unspec ified part of unspecified bronchus or lung 08/21/2020 09/10/2021 Diarrhea 04/06/2009 02/04/2021 documented as of this encounter (statuses as of 10/22/2021) [address]21 History of Past illness Narrative* Problem Noted Date Resolved Date Malignant neoplasm of unspec ified part of unspecified bronchus or lung 08/21/2020 09/10/2021 Diarrhea 04/06/2009 02/04/2021 documented as of this encounter (statuses as of 11/01/2021) [address]21 History of Past illness Narrative* Problem Noted Date Resolved Date Malignant neoplasm of unspec ified part of unspecified bronchus or lung 08/21/2020 09/10/2021 Diarrhea 04/06/2009 02/04/2021 documented as of this encounter (statuses as of 11/02/2021) [address]21 History of Past illness Narrative* Problem Noted Date Resolved Date Malignant neoplasm of unspec ified part of unspecified bronchus or lung 08/21/2020 09/10/2021 Diarrhea 04/06/2009 02/04/2021 documented as of this encounter (statuses as of 11/02/2021) [address]21 History of Past illness Narrative* Problem Noted Date Resolved Date Malignant neoplasm of unspec ified part of unspecified bronchus or lung 08/21/2020 09/10/2021 Diarrhea 04/06/2009 02/04/2021 documented as of this encounter (statuses as of 11/05/2021) [address]21 History of Past illness Narrative* Problem Noted Date Resolved Date Malignant neoplasm of unspec ified part of unspecified bronchus or lung 08/21/2020 09/10/2021 Diarrhea 04/06/2009 02/04/2021 documented as of this encounter (statuses as of 11/09/2021) [address]21 History of Past illness Narrative* Problem Noted Date Resolved Date Malignant neoplasm of unspec ified part of unspecified bronchus or lung 08/21/2020 09/10/2021 Diarrhea 04/06/2009 02/04/2021 documented as of this encounter (statuses as of 11/10/2021) [address]21 History of Past illness Narrative* Problem Noted Date Resolved Date Malignant neoplasm of unspec ified part of unspecified bronchus or lung 08/21/2020 09/10/2021 Diarrhea 04/06/2009 02/04/2021 documented as of this encounter (statuses as of 11/12/2021) [address] History of Past illness Narrative* Problem Noted Date Resolved Date Malignant neoplasm of unspec ified part of unspecified bronchus or lung 08/21/2020 09/10/2021 Diarrhea 04/06/2009 02/04/2021 documented as of this encounter (statuses as of 11/12/2021) [address] History of Past illness Narrative* Problem Noted Date Resolved Date Malignant neoplasm of unspec ified part of unspecified bronchus or lung 08/21/2020 09/10/2021 Diarrhea 04/06/2009 02/04/2021 documented as of this encounter (statuses as of 11/15/2021) [address]21 History of Past illness Narrative* Problem Noted Date Resolved Date Malignant neoplasm of unspec ified part of unspecified bronchus or lung 08/21/2020 09/10/2021 Diarrhea 04/06/2009 02/04/2021 documented as of this encounter (statuses as of 11/18/2021) [address]21 History of Past illness Narrative* Problem Noted Date Resolved Date Malignant neoplasm of unspec ified part of unspecified bronchus or lung 08/21/2020 09/10/2021 Diarrhea 04/06/2009 02/04/2021 documented as of this encounter (statuses as of 11/26/2021) [address] History of Past illness Narrative* Problem Noted Date Resolved Date Malignant neoplasm of unspec ified part of unspecified bronchus or lung 08/21/2020 09/10/2021 Diarrhea 04/06/2009 02/04/2021 documented as of this encounter (statuses as of 11/29/2021) [address] History of Past illness Narrative* Problem Noted Date Resolved Date Malignant neoplasm of unspec ified part of unspecified bronchus or lung 08/21/2020 09/10/2021 Diarrhea 04/06/2009 02/04/2021 documented as of this encounter (statuses as of 11/29/2021) [place] [id number] History of Past illness Narrative* Problem Noted Date Resolved Date Malignant neoplasm of unspec ified part of unspecified bronchus or lung 08/21/2020 09/10/2021 Diarrhea 04/06/2009 02/04/2021 documented as of this encounter (statuses as of 12/05/2021) [address]21 History of Past illness Narrative* Problem Noted Date Resolved Date Malignant neoplasm of unspec ified part of unspecified bronchus or lung 08/21/2020 09/10/2021 Diarrhea 04/06/2009 02/04/2021 documented as of this encounter (statuses as of 12/06/2021) [address] History of Past illness Narrative* Problem Noted Date Resolved Date Malignant neoplasm of unspec ified part of unspecified bronchus or lung 08/21/2020 09/10/2021 Diarrhea 04/06/2009 02/04/2021 documented as of this encounter (statuses as of 12/09/2021) [address] History of Past illness Narrative* Problem Noted Date Resolved Date Malignant neoplasm of unspec ified part of unspecified bronchus or lung 08/21/2020 09/10/2021 Diarrhea 04/06/2009 02/04/2021 documented as of this encounter (statuses as of 12/09/2021) [address]21 History of Past illness Narrative* Problem Noted Date Resolved Date Malignant neoplasm of unspec ified part of unspecified bronchus or lung 08/21/2020 09/10/2021 Diarrhea 04/06/2009 02/04/2021 documented as of this encounter (statuses as of 12/10/2021) [address] History of Past illness Narrative* Problem Noted Date Resolved Date Malignant neoplasm of unspec ified part of unspecified bronchus or lung 08/21/2020 09/10/2021 Diarrhea 04/06/2009 02/04/2021 documented as of this encounter (statuses as of 12/13/2021) [address] History of Past illness Narrative* Problem Noted Date Resolved Date Malignant neoplasm of unspec ified part of unspecified bronchus or lung 08/21/2020 09/10/2021 Diarrhea 04/06/2009 02/04/2021 documented as of this encounter (statuses as of 01/05/2022) [address]21 History of Past illness Narrative* Problem Noted Date Resolved Date Malignant neoplasm of unspec ified part of unspecified bronchus or lung 08/21/2020 09/10/2021 Diarrhea 04/06/2009 02/04/2021 documented as of this encounter (statuses as of 01/24/2022) [address]21 History of Past illness Narrative* Problem Noted Date Resolved Date Malignant neoplasm of unspec ified part of unspecified bronchus or lung 08/21/2020 09/10/2021 Diarrhea 04/06/2009 02/04/2021 documented as of this encounter (statuses as of 02/02/2022) [address]21 History of Past illness Narrative* Problem Noted Date Resolved Date Malignant neoplasm of unspec ified part of unspecified bronchus or lung 08/21/2020 09/10/2021 Diarrhea 04/06/2009 02/04/2021 documented as of this encounter (statuses as of 02/07/2022) [address]21 History of Past illness Narrative* Problem Noted Date Resolved Date Malignant neoplasm of unspec ified part of unspecified bronchus or lung 08/21/2020 09/10/2021 Diarrhea 04/06/2009 02/04/2021 documented as of this encounter (statuses as of 02/09/2022) [address]21 History of Past illness Narrative* Problem Noted Date Resolved Date Malignant neoplasm of unspec ified part of unspecified bronchus or lung 08/21/2020 09/10/2021 Diarrhea 04/06/2009 02/04/2021 documented as of this encounter (statuses as of 02/18/2022) [address]21 History of Past illness Narrative* Problem Noted Date Resolved Date Malignant neoplasm of unspec ified part of unspecified bronchus or lung 08/21/2020 09/10/2021 Diarrhea 04/06/2009 02/04/2021 documented as of this encounter (statuses as of 04/11/2022) [address]21 History of Past illness Narrative* Problem Noted Date Resolved Date Malignant neoplasm of unspec ified part of unspecified bronchus or lung 08/21/2020 09/10/2021 Diarrhea 04/06/2009 02/04/2021 documented as of this encounter (statuses as of 04/19/2022) [address]21 History of Past illness Narrative* Problem Noted Date Resolved Date Malignant neoplasm of unspec ified part of unspecified bronchus or lung 08/21/2020 09/10/2021 Diarrhea 04/06/2009 02/04/2021 documented as of this encounter (statuses as of 06/07/2022) [address]21 History of Past illness Narrative* Problem Noted Date Resolved Date Malignant neoplasm of unspec ified part of unspecified bronchus or lung 08/21/2020 09/10/2021 Diarrhea 04/06/2009 02/04/2021 documented as of this encounter (statuses as of 07/08/2022) [address]21 History of Past illness Narrative* Problem Noted Date Resolved Date Malignant neoplasm of unspec ified part of unspecified bronchus or lung 08/21/2020 09/10/2021 Diarrhea 04/06/2009 02/04/2021 documented as of this encounter (statuses as of 07/11/2022) [address]21 History of Past illness Narrative* Problem Noted Date Resolved Date Malignant neoplasm of unspec ified part of unspecified bronchus or lung 08/21/2020 09/10/2021 Diarrhea 04/06/2009 02/04/2021 documented as of this encounter (statuses as of 07/11/2022) [address]21 History of Past illness Narrative* Problem Noted Date Resolved Date Malignant neoplasm of unspec ified part of unspecified bronchus or lung 08/21/2020 09/10/2021 Diarrhea 04/06/2009 02/04/2021 documented as of this encounter (statuses as of 08/26/2022) [address]21 History of Past illness Narrative* Problem Noted Date Resolved Date Malignant neoplasm of unspec ified part of unspecified bronchus or lung 08/21/2020 09/10/2021 Diarrhea 04/06/2009 02/04/2021 documented as of this encounter (statuses as of 08/29/2022) [address]-2021 History of Past illness Narrative* Problem Noted Date Resolved Date Malignant neoplasm of unspec ified part of unspecified bronchus or lung 08/21/2020 09/10/2021 Diarrhea 04/06/2009 02/04/2021 documented as of this encounter (statuses as of 09/02/2022) [address]-2021 History of Past illness Narrative* Problem Noted Date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 Pure hypercholesterolemia 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 Pancytopenia (HCC) Other pancytopenia Recurrent major depressive disorder, in remission (HCC) Paroxysmal atrial fibrillation (HCC) Atrial fibrillation Atherosclerosis of aorta (HCC) Atherosclerosis of aorta ACI (adrenal cortical insufficiency) (HCC) Glucocorticoid deficiency Stage 3b chronic kidney disease (HCC) Stage 3 chronic kidney disease, unspecified whether stage 3a or 3b CKD (HCC) Iron deficiency anemia, unspecified iron deficiency anemia type Pure hypercholesterolemia, unspecified Irritable bowel syndrome with diarrhea Irritable bowel syndrome [facility] Diagnosis Pure hypercholesterolemia, unspecified documented in this encounter [facility] note* Diagnosis Pure hypercholesterolemia, unspecified documented in this encounter [facility] note* Diagnosis Rash- Primary Rash and other nonspecific skin eruption Itching Unspecified pruritic disorder documented in this encounter [facility] note* Diagnosis Malignant neoplasm of unspecified part of unspecified bronchus or lung (HCC) [facility]* Diagnosis C. difficile diarrhea Intestinal infection due to clostridium difficile Iron deficiency anemia, unspecified iron deficiency anemia type Elevated fecal calprotectin Paroxysmal atrial fibrillation (HCC) Atrial fibrillation Gastroesophageal reflux disease without esophagitis Esophageal reflux Centrilobular emphysema (HCC) Other emphysema Iron deficiency anemia secondary to inadequate dietary iron intake Stage 3 chronic kidney disease, unspecified whether stage 3a or 3b CKD (HCC) Hypertension, essential Unspecified essential hypertension Pure hypercholesterolemia, unspecified Preop examination Preoperative examination, unspecified Malignant neoplasm of unspecified part of unspecified bronchus or lung (HCC)- Primary [facility]* Diagnosis C. difficile diarrhea Intestinal infection due to clostridium difficile Iron deficiency anemia, unspecified iron deficiency anemia type Elevated fecal calprotectin Paroxysmal atrial fibrillation (HCC) Atrial fibrillation Gastroesophageal reflux disease without esophagitis Esophageal reflux Centrilobular emphysema (HCC) Other emphysema Iron deficiency anemia secondary to inadequate dietary iron intake Stage 3 chronic kidney disease, unspecified whether stage 3a or 3b CKD (HCC) Hypertension, essential Unspecified essential hypertension Pure hypercholesterolemia, unspecified Preop examination Preoperative examination, unspecified Other cough- Primary Moderate COPD (chronic obstructive pulmonary disease) (HCC) Chronic airway obstruction, not elsewhere classified Radiation fibrosis of lung (HCC) Chronic and other pulmonary manifestations due to radiation 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) Former cigarette smoker Personal history of tobacco use, presenting hazards to health [facility]* Diagnosis C. difficile diarrhea Intestinal infection due to clostridium difficile Iron deficiency anemia, unspecified iron deficiency anemia type Elevated fecal calprotectin Paroxysmal atrial fibrillation (HCC) Atrial fibrillation Gastroesophageal reflux disease without esophagitis Esophageal reflux Centrilobular emphysema (HCC) Other emphysema Iron deficiency anemia secondary to inadequate dietary iron intake Stage 3 chronic kidney disease, unspecified whether stage 3a or 3b CKD (HCC) Hypertension, essential Unspecified essential hypertension Pure hypercholesterolemia, unspecified Preop examination Preoperative examination, unspecified Primary cancer of right lower lobe of lung (HCC) Rib pain Chest pain, unspecified [facility]* Diagnosis C. difficile diarrhea Intestinal infection due to clostridium difficile Iron deficiency anemia, unspecified iron deficiency anemia type Elevated fecal calprotectin Paroxysmal atrial fibrillation (HCC) Atrial fibrillation Gastroesophageal reflux disease without esophagitis Esophageal reflux Centrilobular emphysema (HCC) Other emphysema Iron deficiency anemia secondary to inadequate dietary iron intake Stage 3 chronic kidney disease, unspecified whether stage 3a or 3b CKD (HCC) Hypertension, essential Unspecified essential hypertension Pure hypercholesterolemia, unspecified Preop examination Preoperative examination, unspecified Dysuria- Primary Acute cystitis with hematuria Acute cystitis documented in this encounter [facility] note* Diagnosis NSCLC of right lung (HCC) C. difficile diarrhea Intestinal infection due to clostridium difficile Iron deficiency anemia, unspecified iron deficiency anemia type Elevated fecal calprotectin Paroxysmal atrial fibrillation (HCC) Atrial fibrillation Gastroesophageal reflux disease without esophagitis Esophageal reflux Centrilobular emphysema (HCC) Other emphysema Iron deficiency anemia secondary to inadequate dietary iron intake Stage 3 chronic kidney disease, unspecified whether stage 3a or 3b CKD (HCC) Hypertension, essential Unspecified essential hypertension Pure hypercholesterolemia, unspecified Preop examination Preoperative examination, unspecified [facility]* Diagnosis C. difficile diarrhea Intestinal infection due to clostridium difficile Iron deficiency anemia, unspecified iron deficiency anemia type Elevated fecal calprotectin Paroxysmal atrial fibrillation (HCC) Atrial fibrillation Gastroesophageal reflux disease without esophagitis Esophageal reflux Centrilobular emphysema (HCC) Other emphysema Iron deficiency anemia secondary to inadequate dietary iron intake Stage 3 chronic kidney disease, unspecified whether stage 3a or 3b CKD (HCC) Hypertension, essential Unspecified essential hypertension Pure hypercholesterolemia, unspecified Preop examination Preoperative examination, unspecified RLS (restless legs syndrome)- Primary Restless legs syndrome (RLS) Gastroesophageal reflux disease, unspecified whether esophagitis present Iron deficiency anemia, unspecified iron deficiency anemia type Paroxysmal atrial fibrillation (HCC) Atrial fibrillation documented in this encounter [facility] note* Diagnosis C. difficile diarrhea Intestinal infection due to clostridium difficile Iron deficiency anemia, unspecified iron deficiency anemia type Elevated fecal calprotectin Paroxysmal atrial fibrillation (HCC) Atrial fibrillation Gastroesophageal reflux disease without esophagitis Esophageal reflux Centrilobular emphysema (HCC) Other emphysema Iron deficiency anemia secondary to inadequate dietary iron intake Stage 3 chronic kidney disease, unspecified whether stage 3a or 3b CKD (HCC) Hypertension, essential Unspecified essential hypertension Pure hypercholesterolemia, unspecified Preop examination Preoperative examination, unspecified Hypertension, essential- Primary Unspecified essential hypertension Encounter for screening examination for other mental health and behavioral disorders Encounter for screening mammogram for breast cancer Primary cancer of right lower lobe of lung (HCC) Paroxysmal atrial fibrillation (HCC) Atrial fibrillation Pure hypercholesterolemia, unspecified Iron deficiency anemia, unspecified iron deficiency anemia type Centrilobular emphysema (HCC) Other emphysema Former smoker Personal history of tobacco use, presenting hazards to health Medicare annual wellness visit, subsequent Routine general medical examination at a health care facility [facility] Diagnosis C. difficile diarrhea Intestinal infection due to clostridium difficile Iron deficiency anemia, unspecified iron deficiency anemia type Elevated fecal calprotectin Paroxysmal atrial fibrillation (HCC) Atrial fibrillation Gastroesophageal reflux disease without esophagitis Esophageal reflux Centrilobular emphysema (HCC) Other emphysema Iron deficiency anemia secondary to inadequate dietary iron intake Stage 3 chronic kidney disease, unspecified whether stage 3a or 3b CKD (HCC) Hypertension, essential Unspecified essential hypertension Pure hypercholesterolemia, unspecified Preop examination Preoperative examination, unspecified Pain- Primary Generalized pain Pain Generalized pain [facility]* Diagnosis C. difficile diarrhea Intestinal infection due to clostridium difficile Iron deficiency anemia, unspecified iron deficiency anemia type Elevated fecal calprotectin Paroxysmal atrial fibrillation (HCC) Atrial fibrillation Gastroesophageal reflux disease without esophagitis Esophageal reflux Centrilobular emphysema (HCC) Other emphysema Iron deficiency anemia secondary to inadequate dietary iron intake Stage 3 chronic kidney disease, unspecified whether stage 3a or 3b CKD (HCC) Hypertension, essential Unspecified essential hypertension Pure hypercholesterolemia, unspecified Preop examination Preoperative examination, unspecified Pain Generalized pain [facility] Diagnosis C. difficile diarrhea Intestinal infection due to clostridium difficile Iron deficiency anemia, unspecified iron deficiency anemia type Elevated fecal calprotectin Paroxysmal atrial fibrillation (HCC) Atrial fibrillation Gastroesophageal reflux disease without esophagitis Esophageal reflux Centrilobular emphysema (HCC) Other emphysema Iron deficiency anemia secondary to inadequate dietary iron intake Stage 3 chronic kidney disease, unspecified whether stage 3a or 3b CKD (HCC) Hypertension, essential Unspecified essential hypertension Pure hypercholesterolemia, unspecified Preop examination Preoperative examination, unspecified Right foot pain- Primary Pain in limb Pain Generalized pain [facility]* Diagnosis C. difficile diarrhea Intestinal infection due to clostridium difficile Iron deficiency anemia, unspecified iron deficiency anemia type Elevated fecal calprotectin Paroxysmal atrial fibrillation (HCC) Atrial fibrillation Gastroesophageal reflux disease without esophagitis Esophageal reflux Centrilobular emphysema (HCC) Other emphysema Iron deficiency anemia secondary to inadequate dietary iron intake Stage 3 chronic kidney disease, unspecified whether stage 3a or 3b CKD (HCC) Hypertension, essential Unspecified essential hypertension Pure hypercholesterolemia, unspecified Preop examination Preoperative examination, unspecified Primary cancer of right lower lobe of lung (HCC) documented in this encounter [facility] note* Diagnosis C. difficile diarrhea Intestinal infection due to clostridium difficile Iron deficiency anemia, unspecified iron deficiency anemia type Elevated fecal calprotectin Paroxysmal atrial fibrillation (HCC) Atrial fibrillation Gastroesophageal reflux disease without esophagitis Esophageal reflux Centrilobular emphysema (HCC) Other emphysema Iron deficiency anemia secondary to inadequate dietary iron intake Stage 3 chronic kidney disease, unspecified whether stage 3a or 3b CKD (HCC) Hypertension, essential Unspecified essential hypertension Pure hypercholesterolemia, unspecified Preop examination Preoperative examination, unspecified Right arm pain- Primary Pain in limb documented in this encounter [facility] note* Diagnosis C. difficile diarrhea Intestinal infection due to clostridium difficile Iron deficiency anemia, unspecified iron deficiency anemia type Elevated fecal calprotectin Paroxysmal atrial fibrillation (HCC) Atrial fibrillation Gastroesophageal reflux disease without esophagitis Esophageal reflux Centrilobular emphysema (HCC) Other emphysema Iron deficiency anemia secondary to inadequate dietary iron intake Stage 3 chronic kidney disease, unspecified whether stage 3a or 3b CKD (HCC) Hypertension, essential Unspecified essential hypertension Pure hypercholesterolemia, unspecified Preop examination Preoperative examination, unspecified Primary cancer of right lower lobe of lung (HCC) [facility]* Diagnosis C. difficile diarrhea Intestinal infection due to clostridium difficile Iron deficiency anemia, unspecified iron deficiency anemia type Elevated fecal calprotectin Paroxysmal atrial fibrillation (HCC) Atrial fibrillation Gastroesophageal reflux disease without esophagitis Esophageal reflux Centrilobular emphysema (HCC) Other emphysema Iron deficiency anemia secondary to inadequate dietary iron intake Stage 3 chronic kidney disease, unspecified whether stage 3a or 3b CKD (HCC) Hypertension, essential Unspecified essential hypertension Pure hypercholesterolemia, unspecified Preop examination Preoperative examination, unspecified Encounter for screening mammogram for breast cancer documented [facility]* Diagnosis C. difficile diarrhea Intestinal infection due to clostridium difficile Iron deficiency anemia, unspecified iron deficiency anemia type Elevated fecal calprotectin Paroxysmal atrial fibrillation (HCC) Atrial fibrillation Gastroesophageal reflux disease without esophagitis Esophageal reflux Centrilobular emphysema (HCC) Other emphysema Iron deficiency anemia secondary to inadequate dietary iron intake Stage 3 chronic kidney disease, unspecified whether stage 3a or 3b CKD (HCC) Hypertension, essential Unspecified essential hypertension Pure hypercholesterolemia, unspecified Preop examination Preoperative examination, unspecified Acute cough- Primary Centrilobular emphysema (HCC) Other emphysema Community acquired pneumonia of left lung, unspecified part of lung Acute cough Centrilobular emphysema (HCC) Other emphysema [facility]* Diagnosis C. difficile diarrhea Intestinal infection due to clostridium difficile Iron deficiency anemia, unspecified iron deficiency anemia type Elevated fecal calprotectin Paroxysmal atrial fibrillation (HCC) Atrial fibrillation Gastroesophageal reflux disease without esophagitis Esophageal reflux Centrilobular emphysema (HCC) Other emphysema Iron deficiency anemia secondary to inadequate dietary iron intake Stage 3 chronic kidney disease, unspecified whether stage 3a or 3b CKD (HCC) Hypertension, essential Unspecified essential hypertension Pure hypercholesterolemia, unspecified Preop examination Preoperative examination, unspecified Malignant neoplasm of unspecified part of unspecified bronchus or lung (HCC) [facility]* Diagnosis C. difficile diarrhea Intestinal infection due to clostridium difficile Iron deficiency anemia, unspecified iron deficiency anemia type Elevated fecal calprotectin Paroxysmal atrial fibrillation (HCC) Atrial fibrillation Gastroesophageal reflux disease without esophagitis Esophageal reflux Centrilobular emphysema (HCC) Other emphysema Iron deficiency anemia secondary to inadequate dietary iron intake Stage 3 chronic kidney disease, unspecified whether stage 3a or 3b CKD (HCC) Hypertension, essential Unspecified essential hypertension Pure hypercholesterolemia, unspecified Preop examination Preoperative examination, unspecified Acute cough Centrilobular emphysema (HCC) Other emphysema [facility]* Diagnosis C. difficile diarrhea Intestinal infection due to clostridium difficile Iron deficiency anemia, unspecified iron deficiency anemia type Elevated fecal calprotectin Paroxysmal atrial fibrillation (HCC) Atrial fibrillation Gastroesophageal reflux disease without esophagitis Esophageal reflux Centrilobular emphysema (HCC) Other emphysema Iron deficiency anemia secondary to inadequate dietary iron intake Stage 3 chronic kidney disease, unspecified whether stage 3a or 3b CKD (HCC) Hypertension, essential Unspecified essential hypertension Pure hypercholesterolemia, unspecified Preop examination Preoperative examination, unspecified Encounter for follow-up surveillance of lung cancer- Primary Unspecified follow-up examination Malignant neoplasm of unspecified part of unspecified bronchus or lung (HCC) documented in this encounter [facility] note* Diagnosis C. difficile diarrhea Intestinal infection due to clostridium difficile Iron deficiency anemia, unspecified iron deficiency anemia type Elevated fecal calprotectin Paroxysmal atrial fibrillation (HCC) Atrial fibrillation Gastroesophageal reflux disease without esophagitis Esophageal reflux Centrilobular emphysema (HCC) Other emphysema Iron deficiency anemia secondary to inadequate dietary iron intake Stage 3 chronic kidney disease, unspecified whether stage 3a or 3b CKD (HCC) Hypertension, essential Unspecified essential hypertension Pure hypercholesterolemia, unspecified Preop examination Preoperative examination, unspecified Moderate COPD (chronic obstructive pulmonary disease) (HCC)- Primary Chronic airway obstruction, not elsewhere classified Bacterial pneumonia Bacterial pneumonia, unspecified 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) Radiation fibrosis of lung (HCC) Chronic and other pulmonary manifestations due to radiation Exertional dyspnea Other dyspnea and respiratory abnormality documented in this encounter [facility] note* Diagnosis C. difficile diarrhea Intestinal infection due to clostridium difficile Iron deficiency anemia, unspecified iron deficiency anemia type Elevated fecal calprotectin Paroxysmal atrial fibrillation (HCC) Atrial fibrillation Gastroesophageal reflux disease without esophagitis Esophageal reflux Centrilobular emphysema (HCC) Other emphysema Iron deficiency anemia secondary to inadequate dietary iron intake Stage 3 chronic kidney disease, unspecified whether stage 3a or 3b CKD (HCC) Hypertension, essential Unspecified essential hypertension Pure hypercholesterolemia, unspecified Preop examination Preoperative examination, unspecified Bacterial pneumonia- Primary Bacterial pneumonia, unspecified documented in this encounter [facility] note* Diagnosis C. difficile diarrhea Intestinal infection due to clostridium difficile Iron deficiency anemia, unspecified iron deficiency anemia type Elevated fecal calprotectin Paroxysmal atrial fibrillation (HCC) Atrial fibrillation Gastroesophageal reflux disease without esophagitis Esophageal reflux Centrilobular emphysema (HCC) Other emphysema Iron deficiency anemia secondary to inadequate dietary iron intake Stage 3 chronic kidney disease, unspecified whether stage 3a or 3b CKD (HCC) Hypertension, essential Unspecified essential hypertension Pure hypercholesterolemia, unspecified Preop examination Preoperative examination, unspecified Bacterial pneumonia Bacterial pneumonia, unspecified documented in this encounter [facility] note* Diagnosis C. difficile diarrhea Intestinal infection due to clostridium difficile Iron deficiency anemia, unspecified iron deficiency anemia type Elevated fecal calprotectin Paroxysmal atrial fibrillation (HCC) Atrial fibrillation Gastroesophageal reflux disease without esophagitis Esophageal reflux Centrilobular emphysema (HCC) Other emphysema Iron deficiency anemia secondary to inadequate dietary iron intake Stage 3 chronic kidney disease, unspecified whether stage 3a or 3b CKD (HCC) Hypertension, essential Unspecified essential hypertension Pure hypercholesterolemia, unspecified Preop examination Preoperative examination, unspecified Leg swelling- Primary Swelling of limb documented in this encounter [facility] note* Diagnosis C. difficile diarrhea Intestinal infection due to clostridium difficile Iron deficiency anemia, unspecified iron deficiency anemia type Elevated fecal calprotectin Paroxysmal atrial fibrillation (HCC) Atrial fibrillation Gastroesophageal reflux disease without esophagitis Esophageal reflux Centrilobular emphysema (HCC) Other emphysema Iron deficiency anemia secondary to inadequate dietary iron intake Stage 3 chronic kidney disease, unspecified whether stage 3a or 3b CKD (HCC) Hypertension, essential Unspecified essential hypertension Pure hypercholesterolemia, unspecified Preop examination Preoperative examination, unspecified Bronchitis- Primary Bronchitis, not specified as acute or chronic documented in this encounter [facility] note* Diagnosis C. difficile diarrhea Intestinal infection due to clostridium difficile Iron deficiency anemia, unspecified iron deficiency anemia type Elevated fecal calprotectin Paroxysmal atrial fibrillation (HCC) Atrial fibrillation Gastroesophageal reflux disease without esophagitis Esophageal reflux Centrilobular emphysema (HCC) Other emphysema Iron deficiency anemia secondary to inadequate dietary iron intake Stage 3 chronic kidney disease, unspecified whether stage 3a or 3b CKD (HCC) Hypertension, essential Unspecified essential hypertension Pure hypercholesterolemia, unspecified Preop examination Preoperative examination, unspecified Moderate COPD (chronic obstructive pulmonary disease) (HCC) Chronic airway obstruction, not elsewhere classified documented in this encounter [facility] note* Diagnosis C. difficile diarrhea Intestinal infection due to clostridium difficile Iron deficiency anemia, unspecified iron deficiency anemia type Elevated fecal calprotectin Paroxysmal atrial fibrillation (HCC) Atrial fibrillation Gastroesophageal reflux disease without esophagitis Esophageal reflux Centrilobular emphysema (HCC) Other emphysema Iron deficiency anemia secondary to inadequate dietary iron intake Stage 3 chronic kidney disease, unspecified whether stage 3a or 3b CKD (HCC) Hypertension, essential Unspecified essential hypertension Pure hypercholesterolemia, unspecified Preop examination Preoperative examination, unspecified Moderate COPD (chronic obstructive pulmonary disease) (HCC) Chronic airway obstruction, not elsewhere classified documented in this encounter [facility] note* Diagnosis C. difficile diarrhea Intestinal infection due to clostridium difficile Iron deficiency anemia, unspecified iron deficiency anemia type Elevated fecal calprotectin Paroxysmal atrial fibrillation (HCC) Atrial fibrillation Gastroesophageal reflux disease without esophagitis Esophageal reflux Centrilobular emphysema (HCC) Other emphysema Iron deficiency anemia secondary to inadequate dietary iron intake Stage 3 chronic kidney disease, unspecified whether stage 3a or 3b CKD (HCC) Hypertension, essential Unspecified essential hypertension Pure hypercholesterolemia, unspecified Preop examination Preoperative examination, unspecified Moderate COPD (chronic obstructive pulmonary disease) (HCC)- Primary Chronic airway obstruction, not elsewhere classified Nocturnal hypoxemia Hypoxemia 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) Radiation fibrosis of lung (HCC) Chronic and other pulmonary manifestations due to radiation [facility] Diagnosis C. difficile diarrhea Intestinal infection due to clostridium difficile Iron deficiency anemia, unspecified iron deficiency anemia type Elevated fecal calprotectin Paroxysmal atrial fibrillation (HCC) Atrial fibrillation Gastroesophageal reflux disease without esophagitis Esophageal reflux Centrilobular emphysema (HCC) Other emphysema Iron deficiency anemia secondary to inadequate dietary iron intake Stage 3 chronic kidney disease, unspecified whether stage 3a or 3b CKD (HCC) Hypertension, essential Unspecified essential hypertension Pure hypercholesterolemia, unspecified Preop examination Preoperative examination, unspecified Primary cancer of right lower lobe of lung (HCC) [facility] Name Dates Details How to access health informa tion online Indication:Mixed hyperlipidemia Start:31-Aug-2015 Instruction Type:Patient Education How to access health informa tion online - Detail Indication:Mixed hyperlipidemia Start:31-Aug-2015 Instruction Type:Patient Education Patient Instructions Indication:Mixed hyperlipidemia Start:31-Aug-2015 Instruction Type:Provider Instructions for Treatment How to access health informa tion online Indication:Mixed hyperlipidemia Start:27-Apr-2015 Instruction Type:Patient Education How to access health informa tion online - Detail Indication:Mixed hyperlipidemia Start:27-Apr-2015 Instruction Type:Patient Education Patient Instructions Indication:Mixed hyperlipidemia Start:27-Apr-2015 Instruction Type:Provider Instructions for Treatment How to access health informa tion online Indication:Fatigue Start:15-Dec-2014 Instruction Type:Patient Education How to access health informa tion online - Detail Indication:Fatigue Start:15-Dec-2014 Instruction Type:Patient Education Patient Instructions Indication:Fatigue Start:15-Dec-2014 Instruction Type:Provider Instructions for Treatment Patient Instructions Indication:Fracture of rib Start:31-Oct-2014 Instruction Type:Provider Instructions for Treatment Patient Instructions Indication:Dysthymic Start:11-Aug-2014 Instruction Type:Provider Instructions for Treatment How to access health informa tion online Indication:Grieving Start:16-Jun-2014 Instruction Type:Patient Education How to access health informa tion online - Detail Indication:Grieving Start:16-Jun-2014 Instruction Type:Patient Education Patient Instructions Indication:Grieving Start:16-Jun-2014 Instruction Type:Provider Instructions for Treatment Patient Instructions Indication:Grieving Start:23-May-2014 Instruction Type:Provider Instructions for Treatment Patient Instructions Indication:Distal radius fracture, left Start:03-Feb-2014 Instruction Type:Provider Instructions for Treatment How to access health informa tion online Indication:Elevated liver enzymes Start:04-Dec-2013 Instruction Type:Patient Education How to access health informa tion online - Detail Indication:Elevated liver enzymes Start:04-Dec-2013 Instruction Type:Patient Education Patient Instructions Indication:Pre-operative examination Start:04-Dec-2013 Instruction Type:Provider Instructions for Treatment Patient Instructions Indication:Mixed hyperlipidemia Start:17-Jul-2013 Instruction Type:Provider Instructions for Treatment Patient Instructions Indication:Mixed hyperlipidemia Start:20-Mar-2013 Instruction Type:Provider Instructions for Treatment Patient Instructions Indication:Gastroesophageal reflux disease without esophagitis Start:04-Sep-2012 Instruction Type:Provider Instructions for Treatment Sore throat: diagnosis and treatment Indication:Chronic pharyngitis Start:28-Sep-2006 Instruction Type:Patient Education [facility] Work Phone: reason for referral (narrative)* Outpatient Procedure (Routine) - Authorized Specialty Diagnoses / Procedures Referred By Lelia t Referred To [facility] Diagnoses Other iron deficiency anemia Procedures EGD DIAGNOSTIC ESOPHAGOGASTRODUODENOS COPY TRANSORAL DIAGNOSTIC Jhonathan Reyna MD [address] [place] [address] [facility] [address] [place] [address] Referral ID Status Reason Start Date Expiration Date Visits Requested Visits Authorized [id number] Authorized Auto-Generat ed Referral 10/12/2021 10/12/2022 1 1 [facility] for referral (narrative)* Outpatient Procedure (Routine) - Pending Review Specialty Diagnoses / Procedures Referred By Conttashia t Referred To Contact [facility] Diagnoses Other iron deficiency anemia Procedures EGD DIAGNOSTIC ESOPHAGOGASTRODUODENOS COPY TRANSORAL DIAGNOSTIC Jhonathan Reyna MD [address] [facility] [place] [address] [address] Referral ID Status Reason Start Date Expiration Date Visits Requested Visits Authorized [id number] Pending Review Auto-Generat ed Referral 10/18/2021 10/18/2022 1 1 [facility] for referral (narrative)* Outpatient Procedure (Routine) - Closed Specialty Diagnoses / Procedures Referred By Lelia weiss Referred To Contact [facility] Diagnoses Other iron deficiency anemia Procedures EGD DIAGNOSTIC ESOPHAGOGASTRODUODENOS COPY TRANSORAL DIAGNOSTIC Jhonathan Reyna MD [address] [facility] [place] [address] [address] Referral ID Status Reason Start Date Expiration Date V isits Requested Visits Authorized [id number] Closed Auto-Generate d Referral 10/18/2021 10/18/2022 1 1 [facility] for referral (narrative)* Outpatient Procedure (Routine) - Authorized Specialty Diagnoses / Procedures Referred By Contac t Referred To Contact [facility] Diagnoses Gastrointestinal hemorrhage, unspecified gastrointestinal hemorrhage type Intussusception (HCC) Procedures CAPSULE ENDOSCOPY SMALL BOWEL GI TRC IMG INTRALUMINAL ESOPHAGUS-ILEUM W/I&R Jhonathan Reyna MD [address] [place] [address] [address] Referral ID Status Reason Start Date Expiration Date Visits Requested Visits Authorized [id number] Authorized Auto-Generat ed Referral 11/29/2021 11/29/2022 1 1 [facility] for referral (narrative)* Outpatient Procedure (Routine) - Closed Specialty Diagnoses / Procedures Referred By Contac t Ref[facility] Diagnoses Moderate COPD (chronic obstructive pulmonary disease) (HCC) Diaphragm paralysis Procedures OXIMETRY WITH AMBULATION NONINVASIVE EAR/[place] [address] [place] [address] [facility] [address] [place] [address] Referral ID Status Reason Start Date Expiration Date V isits Requested Visits Authorized [id number] Closed Auto-Generate d Referral 12/06/2022 01/05/2024 1 1 [facility] for referral (narrative)* Outpatient Procedure (Routine) - Closed Specialty Diagnoses / Procedures Referred By Contac t Referred [facility] Diagnoses C. difficile diarrhea Iron deficiency anemia, unspecified iron deficiency anemia type Elevated fecal calprotectin Procedures COLONOSCOPY DIAGNOSTIC COLONOSCOPY DIAGNOSTIC COLONOSCOPY FLX DX W/COLLJ SPEC WHEN PFRMD Jayne Woods PA-C [address] [place] [address] [facility] [address] [place] [address] Referral ID Status Reason Start Date Expiration Date V isits Requested Visits Authorized [id number] Closed Auto-Generate d Referral 04/21/2023 04/21/2024 1 1 [facility] for referral (narrative)* Diagnostic Procedure Only (Routine) - New Request Specialty Diagnoses / Procedures Referred By Contac t Referred To Contact [facility] Diagnoses Asymptomatic menopause Procedures DXA-AXIAL SKELETON DXA BONE DENSITY STUDY / SITES AXIAL Dennis Bradford MD [address] [place] [address] [place] [address] Referral ID Status Reason Start Date Expiration Date Visits Requested Visits Authorized [id number] New Request Auto-Generat ed Referral 4 05/17/2025 1 1 * Diagnostic Procedure Only (Routine) - New Request Specialty Diagnoses / Procedures Referred By Contac t Referred To Contact [facility] Diagnoses Encounter for screening mammogram for breast cancer Procedures JERALD SCREENING W OBIE SCREENING DIGITAL BREAST TOMOSYNTHESIS BI SCREENING MAMMOGRAPHY BI 2-VIEW BREAST INC Dennis Hoang MD [address] [place] [address] [facility] [address] [place] [address] Referral ID Status Reason Start Date Expiration Date Visits Requested Visits Authorized [id number] New Request Auto-Generat ed Referral 4 05/17/2025 1 1 [facility] for referral (narrative)* Diagnostic Procedure Only (Urgent) - Closed Specialty Diagnoses / Procedures Referred By Contac t Referred To Contact [facility] Diagnoses Pain Procedures XR FOOT GENERAL 3V AP/LAT/OBL RIGHT RADEX FOOT COMPLETE MINIMUM 3 VIEWS Tima López APRN.CNP [address] [place] [address] [place] [address] Referral ID Status Reason Start Date Expiration Date V isits Requested Visits Authorized [id number] Closed Auto-Generate d Referral 05/09/2024 06/08/2025 1 1 [facility] for referral (narrative)* Diagnostic Procedure Only (Routine) - Closed Specialty Diagnoses / Procedures Referred By Lelia t Referred To Contact [facility] Diagnoses Encounter for screening mammogram for breast cancer Procedures JERALD SCREENING W OBIE SCREENING DIGITAL BREAST TOMOSYNTHESIS BI SCREENING MAMMOGRAPHY BI 2-VIEW BREAST INC Dennis Hoang MD [address] [place] [address] [facility] [address] [place] [address] Referral ID Status Reason Start Date Expiration Date V isits Requested Visits Authorized [id number] Closed Auto-Generate d Referral 04/17/2024 05/17/2025 1 1 [facility] for referral (narrative)No reason for referral information [facility] Work Phone: Reason for visit Narrative* Outpatient Procedure (Routine) - Closed Specialty Diagnoses / Procedures Referred By Contac t Referred [facility] Diagnoses Other iron deficiency anemia Procedures EGD DIAGNOSTIC ESOPHAGOGASTRODUODENOS COPY TRANSORAL DIAGNOSTIC Jhonathan Reyna MD [address] [place] [address] [facility] [address] [place] [address] Referral ID Status Reason Start Date Expiration Date V isits Requested Visits Authorized [id number] Closed Auto-Generate d Referral 10/18/2021 10/18/2022 1 1 [facility] for visit Narrative* Outpatient Procedure (Routine) - Closed Specialty Diagnoses / Procedures Referred By Contac t Referred [facility] Diagnoses C. difficile diarrhea Iron deficiency anemia, unspecified iron deficiency anemia type Elevated fecal calprotectin Procedures COLONOSCOPY DIAGNOSTIC COLONOSCOPY DIAGNOSTIC COLONOSCOPY FLX DX W/COLLJ SPEC WHEN PFRMD Jayne Woods PA-C [address] [place] [address] [facility] [address] [place] [address] Referral ID Status Reason Start Date Expiration Date V isits Requested Visits Authorized [id number] Closed Auto-Generate d Referral 04/21/2023 04/21/2024 1 1 [facility] for visit Narrative* Diagnostic Procedure Only (Urgent) - Closed Specialty Diagnoses / Procedures Referred By Contac t Referred To Contact [facility] Diagnoses Pain Procedures XR FOOT GENERAL 3V AP/LAT/OBL RIGHT RADEX FOOT COMPLETE MINIMUM 3 VIEWS Tima López APRN.DRY YARD WORKER [address] [place] [address] [place] [address] Referral ID Status Reason Start Date Expiration Date V isits Requested Visits Authorized [id number] Closed Auto-Generate d Referral 05/09/2024 06/08/2025 1 1 [facility] for visit Narrative* Diagnostic Procedure Only (Routine) - Closed Specialty Diagnoses / Procedures Referred By Contac t Referred To Contact [facility] Diagnoses Encounter for screening mammogram for breast cancer Procedures JERALD SCREENING W OBIE SCREENING DIGITAL BREAST TOMOSYNTHESIS BI SCREENING MAMMOGRAPHY BI 2-VIEW BREAST INC CAD Dennis Marcial MD [address] [place] [address] [facility] [address] [place] [address] Referral ID Status Reason Start Date Expiration Date V isits Requested Visits Authorized [id number] Closed Auto-Generate d Referral 04/17/2024 05/17/2025 1 1 [facility] for visit Narrative* Diagnostic Procedure Only (Routine) - Closed Specialty Diagnoses / Procedures Referred By Contac t Referred To Contact [facility] Diagnoses Asymptomatic menopause Procedures DXA-AXIAL SKELETON DXA BONE DENSITY STUDY / SITES AXIAL SKEL Dennis Marcial MD [address] [place] [address] [place] [address] Referral ID Status Reason Start Date Expiration Date V isits Requested Visits Authorized [id number] Closed Auto-Generate d Referral 04/17/2024 05/17/2025 1 1 [facility] Advance Directives No Advanced Directives Records FoundDocuments on File Type Date Recorded 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 Advance Directive(s) 02/04/2021 7:50 AM Advance Directive(s) 01/20/2021 10:03 AM Advance Directive(s) 06/18/2020 7:00 PM Advance Directive(s) 03/12/2020 10:57 AM Documents on File Type Date Recorded 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 Advance Directive(s) 02/04/2021 7:50 AM Advance Directive(s) 01/20/2021 10:03 AM Advance Directive(s) 06/18/2020 7:00 PM Advance Directive(s) 03/12/2020 10:57 AM Advance Directive Response Recorded Date/ Time Living Will Yes November 12, 2020 3 :06pm Power of Digital Forensics Examiner Yes November 12, 2020 3:06pm Documents on File Type Date Recorded 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 Advance Directive(s) 11/03/2021 10:13 AM Advance Directive(s) 02/04/2021 7:50 AM Advance Directive(s) 01/20/2021 10:03 AM Advance Directive(s) 06/18/2020 7:00 PM Advance Directive(s) 03/12/2020 10:57 AM Documents on File Type Date Recorded 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 Advance Directive(s) 11/17/2021 9:09 AM Advance Directive(s) 11/17/2021 9:54 AM Advance Directive(s) 11/03/2021 10:13 AM Advance Directive(s) 02/04/2021 7:50 AM Advance Directive(s) 01/20/2021 10:03 AM Advance Directive(s) 06/18/2020 7:00 PM Advance Directive(s) 03/12/2020 10:57 AM Documents on File Type Date Recorded 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 Yes June 08, 2024 4:10pm Name of Medical Power of Digital Forensics Examiner . June 08, 2024 4:10pm Reason for Referral Specialty Diagnoses / Procedures Referred By Lelia t Referred To Contact CT [facility] Diagnoses Malignant neoplasm of unspecified part of unspecified bronchus or lung (HCC) Procedures CT CHEST WO IVCON DIAGNOSTIC COMPUTED TOMOGRAPHY THORAX W/O CNTRST Carolina Lambert MD [address] [place] [address] Ct Imaging Referral ID Status Reason Start Date Expiration Date V isits Requested Visits Authorized [id number] Closed Auto-Generate d Referral 10/08/2021 08/07/2022 1 1 Referral ID Status Reason Start Date Expiration Date Visits Requested Visits Authorized [id number] Authorized Auto-Generat ed Referral 02/03/2023 1 1 Specialty Diagnoses / Procedures Referred By Lelia t Referred To Contact Nephrology Diagnoses Renal insufficiency Procedures CONSULT TO KIDNEY MEDICINE Dennis Marcial MD [address] [place] [address] [address] Referral ID Status Reason Start Date Expiration Date Visits Requested Visits Authorized [id number] Ref Not Required PCP Requested Referral 02/07/2022 02/07/2023 1 1 Specialty Diagnoses / Procedures Referred By Joanac t Referred To Contact Rheumatology Diagnoses Polyarthritis Procedures CONSULT TO RHEUM/IMMUN DISEASE OFFICE/OUTPATIENT [facility] 60-74 MINUTES Dennis Marcial MD [address] [place] [address] Referral ID Status Reason Start Date Expiration Date Visits Requested Visits Authorized [id number] Authorized PCP Requested Referral 08/29/2022 08/29/2023 1 1 Specialty Diagnoses / Procedures Referred By Contac t Referred To Contact Diagnoses Primary cancer of right lower lobe of lung (HCC) Rib pain Other chest pain Dennis Marcial MD [address] [place] [address] Referral ID Status Reason Start Date Expiration Date Visits Re quested Visits Authorized [id number] Closed 1 1 Specialty Diagnoses / Procedures Referred By Joanac t Referred To Contact CT IM[facility] Diagnoses Malignant neoplasm of unspecified part of unspecified bronchus or lung (HCC) Procedures CT CHEST WO IVCON DIAGNOSTIC COMPUTED TOMOGRAPHY THORAX W/[place] [address] [place] [address] Ct Imaging Referral ID Status Reason Start Date Expiration Date Visits Requested Visits Authorized [id number] Authorized Auto-Generat ed Referral 06/02/2022 01/06/2024 1 1 Specialty Diagnoses / Procedures Referred By Contac t Referred To Contact Gastroenterology Diagnoses Diarrhea, unspecified type Procedures CONSULT TO GASTROENTEROLOGY OFFICE/OUTPATIENT [facility] 60-74 MINUTES Jaspreet Curtis, SANJAY.DRY YARD WORKER [address] [place] [address] Referral ID Status Reason Start Date Expiration Date Visits Requested Visits Authorized [id number] Authorized PCP Requested Referral 01/07/2023 01/07/2024 1 1 Specialty Diagnoses / Procedures Referred By Contac t Referred To Contact CT IM[facility] Diagnoses Malignant neoplasm of unspecified part of unspecified bronchus or lung (HCC) Procedures CT CHEST WO IVCON DIAGNOSTIC COMPUTED TOMOGRAPHY THORAX W/O CNTRST Carolina Lambert MD [address] [place] [address] [place] [address] Referral ID Status Reason Start Date Expiration Date V isits Requested Visits Authorized [id number] Closed Auto-Generate d Referral 04/06/2022 02/03/2023 1 1 Specialty Diagnoses / Procedures Referred By Contac t Referred To Contact CT [facility] Diagnoses Malignant neoplasm of unspecified part of unspecified bronchus or lung (HCC) Procedures CT CHEST WO IVCON DIAGNOSTIC COMPUTED TOMOGRAPHY THORAX W/[place] [address] [place] [address] [place] [address] Referral ID Status Reason Start Date Expiration Date V isits Requested Visits Authorized [id number] Closed Auto-Generate d Referral 06/02/2022 01/06/2024 1 1 Referral ID Status Reason Start Date Expiration Date Visits Requested Visits Authorized [id number] Authorized Auto-Generat ed Referral 06/21/2023 07/20/2024 1 1 Referral ID Status Reason Start Date Expiration Date Visits Requested Visits Authorized [id number] Authorized Auto-Generat ed Referral 12/26/2023 01/24/2025 1 1 Specialty Diagnoses / Procedures Referred By Contac t Referred To Contact Podiatry Diagnoses Pain Procedures CONSULT TO PODIATRY OFFICE/OUTPATIENT [facility] MDM 60 MINUTES Tima López, SANJAY.DRY YARD WORKER [address] [place] [address] Referral ID Status Reason Start Date Expiration Date Visits Requested Visits Authorized [id number] Authorized PCP Requested Referral 05/09/2024 05/09/2025 1 1 Specialty Diagnoses / Procedures Referred By Contac t Referred To Contact XR IMAGING Diagnoses Pain Procedures XR FOOT GENERAL 3V AP/LAT/OBL RIGHT RADEX FOOT COMPLETE MINIMUM 3 VIEWS Tima López APRN.DRY YARD WORKER [address] [place] [address] [place] [address] Referral ID Status Reason Start Date Expiration Date V isits Requested Visits Authorized [id number] Closed Auto-Generate d Referral 05/09/2024 06/08/2025 1 1 Chief Complaint and Reason for Visit Chief Complaint 10M FU Reason for Visit Hyperlipidemia PAF (paroxysmal atrial fibrillation) Chief Complaint 1 Y FU Reason for Visit Hyperlipidemia PAF (paroxysmal atrial fibrillation) Chief Complaint PAIN- COPY PCP Chief Complaint Admit Date PAIN- COPY PCP May 13, 2024 7: 16am R [facility] PA[facility] June 08, 2024 3 :09pm PAIN- COPY PCP July 22, 2024 7:0 5am Family History No Family History Records Found Relationship Condition Age at Onset Recorded Date/T denise Not Specified Cardiac disease Unknown Malignant neoplasm Unknown Medications Administered Section Inactive Administered Medications - up to 3 most recent administrations Medication Order MAR Action Action Date Dose Rate Site iron sucrose 200 mg in NaCl 0.9% 100ml (VENOFER) 200 mg, INTRAVENOUS, at 400 mL/hr, Administer over 15 Minutes, ONCE, 1 dose, On Marilyn 10/14/21 at 1400, Please conduct a 30 minute post dose observation. New Bag/Syringe/Bottle 10/14/2021 1:55 PM EDT 200 mg 400 mL/hr Inactive Administered Medications - up to 3 most recent administrations Medication Order MAR Action Action Date Dose Rate Site iron sucrose 200 mg in NaCl 0.9% 100ml (VENOFER) 200 mg, INTRAVENOUS, at 400 mL/hr, Administer over 15 Minutes, ONCE, 1 dose, On Mon11/02/21 at 1530, Please conduct a 30 minute post dose observation. New Bag/Syringe/Bottle 11/02/2021 3:43 PM EDT 200 mg 400 mL/hr Inactive Administered Medications - up to 3 most recent administrations Medication Order MAR Action Action Date Dose Rate Site iron sucrose 200 mg in NaCl 0.9% 100ml (VENOFER) 200 mg, INTRAVENOUS, at 400 mL/hr, Administer over 15 Minutes, ONCE, 1 dose, On Mon11/10/21 at 0930, Please conduct a 30 minute post dose observation. New Bag/Syringe/Bottle 11/10/2021 9:39 AM EDT 200 mg 400 mL/hr Inactive Administered Medications - up to 3 most recent administrations Medication Order MAR Action Action Date Dose Rate Site iron sucrose 200 mg in NaCl 0.9% 100ml (VENOFER) 200 mg, INTRAVENOUS, at 400 mL/hr, Administer over 15 Minutes, ONCE, 1 dose, On Mon11/12/21 at 0930, Please conduct a 30 minute post dose observation. New Bag/Syringe/Bottle 11/12/2021 9:30 AM EDT 200 mg 400 mL/hr Inactive Administered Medications - up to 3 most recent administrations Medication Order MAR Action Action Date Dose Rate Site iron sucrose 200 mg in NaCl 0.9% 100ml (VENOFER) 200 mg, INTRAVENOUS, at 400 mL/hr, Administer over 15 Minutes, ONCE, 1 dose, On Mon11/15/21 at 1000, Please conduct a 30 minute post dose observation. New Bag/Syringe/Bottle 11/15/2021 10:07 AM EDT 200 mg 400 mL/hr Inactive Administered Medications - up to 3 most recent administrations Medication Order MAR Action Action Date Dose Rate Site benzocaine 20% 2 [place] (TOPEX) 2 [place], TOPICAL, ONCE, 1 dose, On Mon11/17/21 at 1100, Per LIP prior to start of procedure - Pharmaceutical Waste: Aerosol -, Preprocedure Given 11/17/2021 10:59 AM EDT 2 Sprays lactated ringers iv infusion 30 mL/hr, INTRAVENOUS, CONTINUOUS, Starting on Mon11/17/21 at 1030, Until Mon11/17/21 at 1105, Preprocedure New Bag/Syringe/Bottle 11/17/2021 10:30 AM EDT 30 mL/hr 30 mL/hr Inactive Administered Medications - up to 3 most recent administrations Medication Order MAR Action Action Date Dose Rate Site denosumab 60 mg injection (PROLIA) 60 mg, SUBCUTANEOUS, ONCE (UP TO 30 DAYS AMB), 1 dose, On Mon02/09/22 at 1000, Allow To Come To Room Temperature Before Administration. REFRIGERATE Given 02/09/2022 9:46 AM EDT 60 mg Arm, Right Health Concerns Infection Onset Date Last Indicated Resolved Time COVID-19 Rule-Out 10/19/2021 10/19/2021 Infection Onset Date Last Indicated Resolved Time COVID-19 Rule-Out 10/19/2021 10/19/2021 10/19/2021 10:19 PM EDT COVID-19 Confirmed 10/19/2021 10/19/2021 Infection Onset Date Last Indicated Resolved Time COVID-19 Confirmed 10/19/2021 10/19/2021 Infection Onset Date Last Indicated Resolved Time COVID-19 Confirmed 10/19/2021 10/19/2021 2 8:51 PM EDT Infection Onset Date Last Indicated Resolved Time COVID-19 Confirmed 10/19/2021 10/19/2021 2 8:51 PM EDT Infection Onset Date Last Indicated Resolved Time C. difficile 01/13/2023 01/13/2023 Infection Onset Date Last Indicated Resolved Time C. difficile 01/13/2023 01/13/2023 02/12/2023 8:51 PM EDT Summary Purpose Additional Source Comments Source Comments (unrecognize d section and content) In the event this informatio n is protected by the Federal Confidentiality of Alcohol and Drug Abuse Patient Records regulations: The Federal rules restrict any use of the information to criminally investigate or prosecute any alcohol or drug abuse patient.[facility] the event this information is protected by the Federal Confidentiality of Alcohol and Drug Abuse Patient Records regulations: The Federal rules restrict any use of the information to criminally investigate or prosecute any alcohol or drug abuse patient.[facility] the event this information is protected by the Federal Confidentiality of Alcohol and Drug Abuse Patient Records regulations: The Federal rules restrict any use of the information to criminally investigate or prosecute any alcohol or drug abuse patient.[facility] the event this information is protected by the Federal Confidentiality of Alcohol and Drug Abuse Patient Records regulations: The Federal rules restrict any use of the information to criminally investigate or prosecute any alcohol or drug abuse patient.[facility]In the event this information is protected by the Federal Confidentiality of Alcohol and Drug Abuse Patient Records regulations: The Federal rules restrict any use of the information to criminally investigate or prosecute any alcohol or drug abuse patient.[facility]In the event this information is protected by the Federal Confidentiality of Alcohol and Drug Abuse Patient Records regulations: The Federal rules restrict any use of the information to criminally investigate or prosecute any alcohol or drug abuse patient.[facility]In the event this information is protected by the Federal Confidentiality of Alcohol and Drug Abuse Patient Records regulations: The Federal rules restrict any use of the information to criminally investigate or prosecute any alcohol or drug abuse patient.[facility] HospitalIn the event this information is protected by the Federal Confidentiality of Alcohol and Drug Abuse Patient Records regulations: The Federal rules restrict any use of the information to criminally investigate or prosecute any alcohol or drug abuse patient.[facility]In the event this information is protected by the Federal Confidentiality of Alcohol and Drug Abuse Patient Records regulations: The Federal rules restrict any use of the information to criminally investigate or prosecute any alcohol or drug abuse patient.[facility]In the event this information is protected by the Federal Confidentiality of Alcohol and Drug Abuse Patient Records regulations: The Federal rules restrict any use of the information to criminally investigate or prosecute any alcohol or drug abuse patient.[facility] HospitalIn the event this information is protected by the Federal Confidentiality of Alcohol and Drug Abuse Patient Records regulations: The Federal rules restrict any use of the information to criminally investigate or prosecute any alcohol or drug abuse patient.[facility]In the event this information is protected by the Federal Confidentiality of Alcohol and Drug Abuse Patient Records regulations: The Federal rules restrict any use of the information to criminally investigate or prosecute any alcohol or drug abuse patient.[facility] HospitalIn the event this information is protected by the Federal Confidentiality of Alcohol and Drug Abuse Patient Records regulations: The Federal rules restrict any use of the information to criminally investigate or prosecute any alcohol or drug abuse patient.[facility] HospitalIn the event this information is protected by the Federal Confidentiality of Alcohol and Drug Abuse Patient Records regulations: The Federal rules restrict any use of the information to criminally investigate or prosecute any alcohol or drug abuse patient.[facility] HospitalIn the event this information is protected by the Federal Confidentiality of Alcohol and Drug Abuse Patient Records regulations: The Federal rules restrict any use of the information to criminally investigate or prosecute any alcohol or drug abuse patient.[facility] HospitalIn the event this information is protected by the Federal Confidentiality of Alcohol and Drug Abuse Patient Records regulations: The Federal rules restrict any use of the information to criminally investigate or prosecute any alcohol or drug abuse patient.[facility] HospitalIn the event this information is protected by the Federal Confidentiality of Alcohol and Drug Abuse Patient Records regulations: The Federal rules restrict any use of the information to criminally investigate or prosecute any alcohol or drug abuse patient.[facility] the event this information is protected by the Federal Confidentiality of Alcohol and Drug Abuse Patient Records regulations: The Federal rules restrict any use of the information to criminally investigate or prosecute any alcohol or drug abuse patient.[facility]In the event this information is protected by the Federal Confidentiality of Alcohol and Drug Abuse Patient Records regulations: The Federal rules restrict any use of the information to criminally investigate or prosecute any alcohol or drug abuse patient.[facility] HospitalIn the event this information is protected by the Federal Confidentiality of Alcohol and Drug Abuse Patient Records regulations: The Federal rules restrict any use of the information to criminally investigate or prosecute any alcohol or drug abuse patient.[facility] HospitalIn the event this information is protected by the Federal Confidentiality of Alcohol and Drug Abuse Patient Records regulations: The Federal rules restrict any use of the information to criminally investigate or prosecute any alcohol or drug abuse patient.[facility] HospitalIn the event this information is protected by the Federal Confidentiality of Alcohol and Drug Abuse Patient Records regulations: The Federal rules restrict any use of the information to criminally investigate or prosecute any alcohol or drug abuse patient.[facility] HospitalIn the event this information is protected by the Federal Confidentiality of Alcohol and Drug Abuse Patient Records regulations: The Federal rules restrict any use of the information to criminally investigate or prosecute any alcohol or drug abuse patient.[facility] HospitalIn the event this information is protected by the Federal Confidentiality of Alcohol and Drug Abuse Patient Records regulations: The Federal rules restrict any use of the information to criminally investigate or prosecute any alcohol or drug abuse patient.[facility]In the event this information is protected by the Federal Confidentiality of Alcohol and Drug Abuse Patient Records regulations: The Federal rules restrict any use of the information to criminally investigate or prosecute any alcohol or drug abuse patient.[facility] HospitalIn the event this information is protected by the Federal Confidentiality of Alcohol and Drug Abuse Patient Records regulations: The Federal rules restrict any use of the information to criminally investigate or prosecute any alcohol or drug abuse patient.[facility] HospitalIn the event this information is protected by the Federal Confidentiality of Alcohol and Drug Abuse Patient Records regulations: The Federal rules restrict any use of the information to criminally investigate or prosecute any alcohol or drug abuse patient.[facility] HospitalIn the event this information is protected by the Federal Confidentiality of Alcohol and Drug Abuse Patient Records regulations: The Federal rules restrict any use of the information to criminally investigate or prosecute any alcohol or drug abuse patient.[facility] HospitalIn the event this information is protected by the Federal Confidentiality of Alcohol and Drug Abuse Patient Records regulations: The Federal rules restrict any use of the information to criminally investigate or prosecute any alcohol or drug abuse patient.[facility]In the event this information is protected by the Federal Confidentiality of Alcohol and Drug Abuse Patient Records regulations: The Federal rules restrict any use of the information to criminally investigate or prosecute any alcohol or drug abuse patient.[facility] HospitalIn the event this information is protected by the Federal Confidentiality of Alcohol and Drug Abuse Patient Records regulations: The Federal rules restrict any use of the information to criminally investigate or prosecute any alcohol or drug abuse patient.[facility] HospitalIn the event this information is protected by the Federal Confidentiality of Alcohol and Drug Abuse Patient Records regulations: The Federal rules restrict any use of the information to criminally investigate or prosecute any alcohol or drug abuse patient.[facility] HospitalIn the event this information is protected by the Federal Confidentiality of Alcohol and Drug Abuse Patient Records regulations: The Federal rules restrict any use of the information to criminally investigate or prosecute any alcohol or drug abuse patient.[facility] HospitalIn the event this information is protected by the Federal Confidentiality of Alcohol and Drug Abuse Patient Records regulations: The Federal rules restrict any use of the information to criminally investigate or prosecute any alcohol or drug abuse patient.[facility]In the event this information is protected by the Federal Confidentiality of Alcohol and Drug Abuse Patient Records regulations: The Federal rules restrict any use of the information to criminally investigate or prosecute any alcohol or drug abuse patient.[facility]In the event this information is protected by the Federal Confidentiality of Alcohol and Drug Abuse Patient Records regulations: The Federal rules restrict any use of the information to criminally investigate or prosecute any alcohol or drug abuse patient.[facility]In the event this information is protected by the Federal Confidentiality of Alcohol and Drug Abuse Patient Records regulations: The Federal rules restrict any use of the information to criminally investigate or prosecute any alcohol or drug abuse patient.[facility]In the event this information is protected by the Federal Confidentiality of Alcohol and Drug Abuse Patient Records regulations: The Federal rules restrict any use of the information to criminally investigate or prosecute any alcohol or drug abuse patient.[facility] HospitalIn the event this information is protected by the Federal Confidentiality of Alcohol and Drug Abuse Patient Records regulations: The Federal rules restrict any use of the information to criminally investigate or prosecute any alcohol or drug abuse patient.[facility]In the event this information is protected by the Federal Confidentiality of Alcohol and Drug Abuse Patient Records regulations: The Federal rules restrict any use of the information to criminally investigate or prosecute any alcohol or drug abuse patient.[facility] HospitalIn the event this information is protected by the Federal Confidentiality of Alcohol and Drug Abuse Patient Records regulations: The Federal rules restrict any use of the information to criminally investigate or prosecute any alcohol or drug abuse patient.[facility]In the event this information is protected by the Federal Confidentiality of Alcohol and Drug Abuse Patient Records regulations: The Federal rules restrict any use of the information to criminally investigate or prosecute any alcohol or drug abuse patient.[facility]In the event this information is protected by the Federal Confidentiality of Alcohol and Drug Abuse Patient Records regulations: The Federal rules restrict any use of the information to criminally investigate or prosecute any alcohol or drug abuse patient.[facility]In the event this information is protected by the Federal Confidentiality of Alcohol and Drug Abuse Patient Records regulations: The Federal rules restrict any use of the information to criminally investigate or prosecute any alcohol or drug abuse patient.[facility] HospitalIn the event this information is protected by the Federal Confidentiality of Alcohol and Drug Abuse Patient Records regulations: The Federal rules restrict any use of the information to criminally investigate or prosecute any alcohol or drug abuse patient.[facility] HospitalIn the event this information is protected by the Federal Confidentiality of Alcohol and Drug Abuse Patient Records regulations: The Federal rules restrict any use of the information to criminally investigate or prosecute any alcohol or drug abuse patient.[facility]In the event this information is protected by the Federal Confidentiality of Alcohol and Drug Abuse Patient Records regulations: The Federal rules restrict any use of the information to criminally investigate or prosecute any alcohol or drug abuse patient.[facility]In the event this information is protected by the Federal Confidentiality of Alcohol and Drug Abuse Patient Records regulations: The Federal rules restrict any use of the information to criminally investigate or prosecute any alcohol or drug abuse patient.[facility]In the event this information is protected by the Federal Confidentiality of Alcohol and Drug Abuse Patient Records regulations: The Federal rules restrict any use of the information to criminally investigate or prosecute any alcohol or drug abuse patient.[facility]In the event this information is protected by the Federal Confidentiality of Alcohol and Drug Abuse Patient Records regulations: The Federal rules restrict any use of the information to criminally investigate or prosecute any alcohol or drug abuse patient.[facility]In the event this information is protected by the Federal Confidentiality of Alcohol and Drug Abuse Patient Records regulations: The Federal rules restrict any use of the information to criminally investigate or prosecute any alcohol or drug abuse patient.[facility]In the event this information is protected by the Federal Confidentiality of Alcohol and Drug Abuse Patient Records regulations: The Federal rules restrict any use of the information to criminally investigate or prosecute any alcohol or drug abuse patient.[facility]In the event this information is protected by the Federal Confidentiality of Alcohol and Drug Abuse Patient Records regulations: The Federal rules restrict any use of the information to criminally investigate or prosecute any alcohol or drug abuse patient.[facility]In the event this information is protected by the Federal Confidentiality of Alcohol and Drug Abuse Patient Records regulations: The Federal rules restrict any use of the information to criminally investigate or prosecute any alcohol or drug abuse patient.[facility]In the event this information is protected by the Federal Confidentiality of Alcohol and Drug Abuse Patient Records regulations: The Federal rules restrict any use of the information to criminally investigate or prosecute any alcohol or drug abuse patient.[facility]In the event this information is protected by the Federal Confidentiality of Alcohol and Drug Abuse Patient Records regulations: The Federal rules restrict any use of the information to criminally investigate or prosecute any alcohol or drug abuse patient.[facility]In the event this information is protected by the Federal Confidentiality of Alcohol and Drug Abuse Patient Records regulations: The Federal rules restrict any use of the information to criminally investigate or prosecute any alcohol or drug abuse patient.[facility]In the event this information is protected by the Federal Confidentiality of Alcohol and Drug Abuse Patient Records regulations: The Federal rules restrict any use of the information to criminally investigate or prosecute any alcohol or drug abuse patient.[facility]In the event this information is protected by the Federal Confidentiality of Alcohol and Drug Abuse Patient Records regulations: The Federal rules restrict any use of the information to criminally investigate or prosecute any alcohol or drug abuse patient.[facility]In the event this information is protected by the Federal Confidentiality of Alcohol and Drug Abuse Patient Records regulations: The Federal rules restrict any use of the information to criminally investigate or prosecute any alcohol or drug abuse patient.[facility]In the event this information is protected by the Federal Confidentiality of Alcohol and Drug Abuse Patient Records regulations: The Federal rules restrict any use of the information to criminally investigate or prosecute any alcohol or drug abuse patient.[facility]In the event this information is protected by the Federal Confidentiality of Alcohol and Drug Abuse Patient Records regulations: The Federal rules restrict any use of the information to criminally investigate or prosecute any alcohol or drug abuse patient.[facility]In the event this information is protected by the Federal Confidentiality of Alcohol and Drug Abuse Patient Records regulations: The Federal rules restrict any use of the information to criminally investigate or prosecute any alcohol or drug abuse patient.[facility]In the event this information is protected by the Federal Confidentiality of Alcohol and Drug Abuse Patient Records regulations: The Federal rules restrict any use of the information to criminally investigate or prosecute any alcohol or drug abuse patient.[facility]In the event this information is protected by the Federal Confidentiality of Alcohol and Drug Abuse Patient Records regulations: The Federal rules restrict any use of the information to criminally investigate or prosecute any alcohol or drug abuse patient.[facility]In the event this information is protected by the Federal Confidentiality of Alcohol and Drug Abuse Patient Records regulations: The Federal rules restrict any use of the information to criminally investigate or prosecute any alcohol or drug abuse patient.[facility] HospitalIn the event this information is protected by the Federal Confidentiality of Alcohol and Drug Abuse Patient Records regulations: The Federal rules restrict any use of the information to criminally investigate or prosecute any alcohol or drug abuse patient.[facility] the event this information is protected by the Federal Confidentiality of Alcohol and Drug Abuse Patient Records regulations: The Federal rules restrict any use of the information to criminally investigate or prosecute any alcohol or drug abuse patient.[facility]In the event this information is protected by the Federal Confidentiality of Alcohol and Drug Abuse Patient Records regulations: The Federal rules restrict any use of the information to criminally investigate or prosecute any alcohol or drug abuse patient.[facility]In the event this information is protected by the Federal Confidentiality of Alcohol and Drug Abuse Patient Records regulations: The Federal rules restrict any use of the information to criminally investigate or prosecute any alcohol or drug abuse patient.[facility]In the event this information is protected by the Federal Confidentiality of Alcohol and Drug Abuse Patient Records regulations: The Federal rules restrict any use of the information to criminally investigate or prosecute any alcohol or drug abuse patient.[facility] HospitalIn the event this information is protected by the Federal Confidentiality of Alcohol and Drug Abuse Patient Records regulations: The Federal rules restrict any use of the information to criminally investigate or prosecute any alcohol or drug abuse patient.[facility]In the event this information is protected by the Federal Confidentiality of Alcohol and Drug Abuse Patient Records regulations: The Federal rules restrict any use of the information to criminally investigate or prosecute any alcohol or drug abuse patient.[facility]In the event this information is protected by the Federal Confidentiality of Alcohol and Drug Abuse Patient Records regulations: The Federal rules restrict any use of the information to criminally investigate or prosecute any alcohol or drug abuse patient.[facility]In the event this information is protected by the Federal Confidentiality of Alcohol and Drug Abuse Patient Records regulations: The Federal rules restrict any use of the information to criminally investigate or prosecute any alcohol or drug abuse patient.[facility]In the event this information is protected by the Federal Confidentiality of Alcohol and Drug Abuse Patient Records regulations: The Federal rules restrict any use of the information to criminally investigate or prosecute any alcohol or drug abuse patient.[facility]In the event this information is protected by the Federal Confidentiality of Alcohol and Drug Abuse Patient Records regulations: The Federal rules restrict any use of the information to criminally investigate or prosecute any alcohol or drug abuse patient.[facility]In the event this information is protected by the Federal Confidentiality of Alcohol and Drug Abuse Patient Records regulations: The Federal rules restrict any use of the information to criminally investigate or prosecute any alcohol or drug abuse patient.[facility]In the event this information is protected by the Federal Confidentiality of Alcohol and Drug Abuse Patient Records regulations: The Federal rules restrict any use of the information to criminally investigate or prosecute any alcohol or drug abuse patient.[facility]In the event this information is protected by the Federal Confidentiality of Alcohol and Drug Abuse Patient Records regulations: The Federal rules restrict any use of the information to criminally investigate or prosecute any alcohol or drug abuse patient.[facility]In the event this information is protected by the Federal Confidentiality of Alcohol and Drug Abuse Patient Records regulations: The Federal rules restrict any use of the information to criminally investigate or prosecute any alcohol or drug abuse patient.[facility]In the event this information is protected by the Federal Confidentiality of Alcohol and Drug Abuse Patient Records regulations: The Federal rules restrict any use of the information to criminally investigate or prosecute any alcohol or drug abuse patient.[facility]In the event this information is protected by the Federal Confidentiality of Alcohol and Drug Abuse Patient Records regulations: The Federal rules restrict any use of the information to criminally investigate or prosecute any alcohol or drug abuse patient.[facility]In the event this information is protected by the Federal Confidentiality of Alcohol and Drug Abuse Patient Records regulations: The Federal rules restrict any use of the information to criminally investigate or prosecute any alcohol or drug abuse patient.[facility]In the event this information is protected by the Federal Confidentiality of Alcohol and Drug Abuse Patient Records regulations: The Federal rules restrict any use of the information to criminally investigate or prosecute any alcohol or drug abuse patient.[facility]In the event this information is protected by the Federal Confidentiality of Alcohol and Drug Abuse Patient Records regulations: The Federal rules restrict any use of the information to criminally investigate or prosecute any alcohol or drug abuse patient.[facility]In the event this information is protected by the Federal Confidentiality of Alcohol and Drug Abuse Patient Records regulations: The Federal rules restrict any use of the information to criminally investigate or prosecute any alcohol or drug abuse patient.[facility]In the event this information is protected by the Federal Confidentiality of Alcohol and Drug Abuse Patient Records regulations: The Federal rules restrict any use of the information to criminally investigate or prosecute any alcohol or drug abuse patient.[facility] HospitalIn the event this information is protected by the Federal Confidentiality of Alcohol and Drug Abuse Patient Records regulations: The Federal rules restrict any use of the information to criminally investigate or prosecute any alcohol or drug abuse patient.[facility] HospitalIn the event this information is protected by the Federal Confidentiality of Alcohol and Drug Abuse Patient Records regulations: The Federal rules restrict any use of the information to criminally investigate or prosecute any alcohol or drug abuse patient.[facility] HospitalIn the event this information is protected by the Federal Confidentiality of Alcohol and Drug Abuse Patient Records regulations: The Federal rules restrict any use of the information to criminally investigate or prosecute any alcohol or drug abuse patient.[facility] HospitalIn the event this information is protected by the Federal Confidentiality of Alcohol and Drug Abuse Patient Records regulations: The Federal rules restrict any use of the information to criminally investigate or prosecute any alcohol or drug abuse patient.[facility] HospitalIn the event this information is protected by the Federal Confidentiality of Alcohol and Drug Abuse Patient Records regulations: The Federal rules restrict any use of the information to criminally investigate or prosecute any alcohol or drug abuse patient.[facility] HospitalIn the event this information is protected by the Federal Confidentiality of Alcohol and Drug Abuse Patient Records regulations: The Federal rules restrict any use of the information to criminally investigate or prosecute any alcohol or drug abuse patient.[facility] HospitalIn the event this information is protected by the Federal Confidentiality of Alcohol and Drug Abuse Patient Records regulations: The Federal rules restrict any use of the information to criminally investigate or prosecute any alcohol or drug abuse patient.[facility] HospitalIn the event this information is protected by the Federal Confidentiality of Alcohol and Drug Abuse Patient Records regulations: The Federal rules restrict any use of the information to criminally investigate or prosecute any alcohol or drug abuse patient.[facility] HospitalIn the event this information is protected by the Federal Confidentiality of Alcohol and Drug Abuse Patient Records regulations: The Federal rules restrict any use of the information to criminally investigate or prosecute any alcohol or drug abuse patient.[facility] HospitalIn the event this information is protected by the Federal Confidentiality of Alcohol and Drug Abuse Patient Records regulations: The Federal rules restrict any use of the information to criminally investigate or prosecute any alcohol or drug abuse patient.[facility] HospitalIn the event this information is protected by the Federal Confidentiality of Alcohol and Drug Abuse Patient Records regulations: The Federal rules restrict any use of the information to criminally investigate or prosecute any alcohol or drug abuse patient.[facility] HospitalIn the event this information is protected by the Federal Confidentiality of Alcohol and Drug Abuse Patient Records regulations: The Federal rules restrict any use of the information to criminally investigate or prosecute any alcohol or drug abuse patient.[facility] HospitalIn the event this information is protected by the Federal Confidentiality of Alcohol and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 [address] [facility] [place] [address] PCP - General Family Practice 08/29/18 Iftikhar Sandoval V [address] [place] [address] Referring Internal Medicine 02/14/20 Natacha Conklin MD, [address] [place] [address] Physician Radiation Oncology 03/23/20 Charley Mcnally RN [address] [place] [address] Specialty Credit Rating Checker Hematology/Oncology 07/08/21 Augusta Roberts LISW Roller Embosser 10/12/21 Quality Technician Fiberglass Relationship Specialty Start Date End Date Dennis Marcial MD [address] [facility] [place] [address] PCP - General Family Practice 08/29/18 Iftikhar Sandoval V [address] [place] [address] Referring Internal Medicine 02/14/20 Natacha Conklin MD, [address] [place] [address] Physician Radiation Oncology 03/23/20 Charley Mcnally, VANDANA [address] [place] [address] Specialty Credit Rating Checker Hematology/Oncology 07/08/21 Augusta Roberts LISW Roller Embosser 10/12/21 Quality Technician Fiberglass Relationship Specialty Start Date End Date Dennis Marcial MD [address] [facility] [place] [address] PCP - General Family Practice 08/29/18 Iftikhar Sandoval V [address] [place] [address] Referring Internal Medicine 02/14/20 Natacha Conklin MD, [address] [place] [address] Physician Radiation Oncology 03/23/20 Charley Mcnally RN [address] [place] [address] Specialty Credit Rating Checker Hematology/Oncology 07/08/21 Augusta Roberts LISW Roller Embosser 10/12/21 Quality Technician Fiberglass Relationship Specialty Start Date End Date Dennis Marcial MD [address] [facility] [place] [address] PCP - General Family Practice 08/29/18 Iftikhar Sandoval V [address] [place] [address] Referring Internal Medicine 02/14/20 Natacha Conklin MD, [address] [place] [address] Physician Radiation Oncology 03/23/20 Charley Mcnally RN [address] [place] [address] Specialty Credit Rating Checker Hematology/Oncology 07/08/21 Augusta Roberts LISW Roller Embosser 10/12/21 Quality Technician Fiberglass Relationship Specialty Start Date End Date Dennis Marcial MD [address] [facility] [place] [address] PCP - General Family Practice 08/29/18 Iftikhar Sandoval, V [address] [place] [address] Referring Internal Medicine 02/14/20 Natacha Conklin MD, [address] [place] [address] Physician Radiation Oncology 03/23/20 Charley Mcnally, VANDANA [address] [place] [address] Specialty Credit Rating Checker Hematology/Oncology 07/08/21 Augusta Roberts LISW Roller Embosser 10/12/21 Quality Technician Fiberglass Relationship Specialty Start Date End Date Dennis Marcial MD [address] [facility] [place] [address] PCP - General Family Practice 08/29/18 Iftikhar Sandoval, V [address] [place] [address] Referring Internal Medicine 02/14/20 Natacha Conklin MD, [address] [place] [address] Physician Radiation Oncology 03/23/20 Charley Mcnally, VANDANA [address] [place] [address] Specialty Credit Rating Checker Hematology/Oncology 07/08/21 Augusta Roberts LISW Roller Embosser 10/12/21 Quality Technician Fiberglass Relationship Specialty Start Date End Date Dennis Marcial MD [address] [facility] [address] PCP - General Family Practice 08/29/18 Iftikhar Sandoval V [address] [place] [address] Referring Internal Medicine 02/14/20 Natacha Conklin MD, [address] [place] [address] Physician Radiation Oncology 03/23/20 Charley Mcnally, RN [address] [place] [address] Specialty Credit Rating Checker Hematology/Oncology 07/08/21 Augusta Roberts LISW Roller Embosser 10/12/21 Quality Technician Fiberglass Relationship Specialty Start Date End Date Dennis Marcial MD [address] [facility] [place] [address] PCP - General Family Practice 08/29/18 Iftikhar Sandoval V [address] [place] [address] Referring Internal Medicine 02/14/20 Natacha Conklin MD, [address] [place] [address] Physician Radiation Oncology 03/23/20 Charley Mcnally, RN [address] [place] [address] Specialty Credit Rating Checker Hematology/Oncology 07/08/21 Augusta Roberts LISW Roller Embosser 10/12/21 Quality Technician Fiberglass Relationship Specialty Start Date End Date Dennis Marcial MD [address] [facility] [place] [address] PCP - General Family Practice 08/29/18 Iftikhar Sandoval V [address] [place] [address] Referring Internal Medicine 02/14/20 Natacha Conklin MD, [address] [place] [address] Physician Radiation Oncology 03/23/20 Charley Mcnally, VANDANA [address] [place] [address] Specialty Credit Rating Checker Hematology/Oncology 07/08/21 Augusta Roberts LISW Roller Embosser 10/12/21 Quality Technician Fiberglass Relationship Specialty Start Date End Date Dennis Marcial MD [address] [facility] [place] [address] PCP - General Family Practice 08/29/18 Iftikhar Sandoval V [address] [place] [address] Referring Internal Medicine 02/14/20 Natacha Conklin MD, [address] [place] [address] Physician Radiation Oncology 03/23/20 Charley Mcnally, VANDANA [address] [place] [address] Specialty Credit Rating Checker Hematology/Oncology 07/08/21 Augusta Roberts LISW Roller Embosser 10/12/21 Quality Technician Fiberglass Relationship Specialty Start Date End Date Dennis Marcial MD [address] [facility] [place] [address] PCP - General Family Practice 08/29/18 Iftikhar Sandoval V [address] [place] [address] Referring Internal Medicine 02/14/20 Natacha Conklin MD, [address] [place] [address] Physician Radiation Oncology 03/23/20 Charley Mcnally, VANDANA [address] [place] [address] Specialty Credit Rating Checker Hematology/Oncology 07/08/21 Augusta Roberts LISW Roller Embosser 10/12/21 Quality Technician Fiberglass Relationship Specialty Start Date End Date Dennis Marcial MD [address] [facility] [place] [address] PCP - General Family Practice 08/29/18 Iftikhar Sandoval V [address] [place] [address] Referring Internal Medicine 02/14/20 Natacha Conklin MD, [address] [place] [address] Physician Radiation Oncology 03/23/20 Charley Mcnally, VANDANA [address] [place] [address] Specialty Credit Rating Checker Hematology/Oncology 07/08/21 Augusta Roberts LISW Roller Embosser 10/12/21 Quality Technician Fiberglass Relationship Specialty Start Date End Date Dennis Mracial MD [address] [facility] [place] [address] PCP - General Family Practice 08/29/18 Iftikhar Sandoval V [address] [place] [address] Referring Internal Medicine 02/14/20 Natacha Conklin MD, [address] [place] [address] Physician Radiation Oncology 03/23/20 Charley Mcnally, VANDANA [address] [place] [address] Specialty Credit Rating Checker Hematology/Oncology 07/08/21 Augusta Roberts LISW Roller Embosser 10/12/21 Quality Technician Fiberglass Relationship Specialty Start Date End Date Dennis Marcial MD [address] [facility] [place] [address] PCP - General Family Practice 08/29/18 Iftikhar Sandoval V [address] [place] [address] Referring Internal Medicine 02/14/20 Natacha Conklin MD, [address] [place] [address] Physician Radiation Oncology 03/23/20 Charley Mcnally, VANDANA [address] [place] [address] Specialty Credit Rating Checker Hematology/Oncology 07/08/21 Augusta Roberts LISW Roller Embosser 10/12/21 Quality Technician Fiberglass Relationship Specialty Start Date End Date Dennis Marcial MD [address] [place] [address] PCP - General Family Practice 08/29/18 Iftikhar Sandoval V [address] [place] [address] Referring Internal Medicine 02/14/20 Natacha Conklin MD, [address] [place] [address] Physician Radiation Oncology 03/23/20 Charley Mcnally RN [address] [place] [address] Specialty Credit Rating Checker Hematology/Oncology 07/08/21 Augusta Roberts LISW Roller Embosser 10/12/21 Quality Technician Fiberglass Relationship Specialty Start Date End Date Dennis Marcial MD [address] [facility] [place] [address] PCP - General Family Practice 08/29/18 Iftikhar Sandoval V [address] [place] [address] Referring Internal Medicine 02/14/20 Natacha Conklin MD, [address] [place] [address] Physician Radiation Oncology 03/23/20 Charley Mcnally, VANDANA [address] [place] [address] Specialty Credit Rating Checker Hematology/Oncology 07/08/21 Augusta Roberts RN Roller Embosser 10/12/21 Quality Technician Fiberglass Relationship Specialty Start Date End Date Dennis Marcial MD [address] [facility] [place] [address] PCP - General Family Practice 08/29/18 Iftikhar Sandoval V [address] [place] [address] Referring Internal Medicine 02/14/20 Natacha Conklin MD, [address] [place] [address] Physician Radiation Oncology 03/23/20 Charley Mcnally RN [address] [place] [address] Specialty Credit Rating Checker Hematology/Oncology 07/08/21 Augusta Roberts, RN Roller Embosser 10/12/21 Quality Technician Fiberglass Relationship Specialty Start Date End Date Dennis Marcial MD [address] [place] [address] PCP - General Family Practice 08/29/18 Iftikhar Sandoval V [address] [place] [address] Referring Internal Medicine 02/14/20 Natacha Conklin MD, [address] [place] [address] Physician Radiation Oncology 03/23/20 Charley Mcnally, VANDANA [address] [place] [address] Specialty Credit Rating Checker Hematology/Oncology 07/08/21 Augusta Roberts RN Roller Embosser 10/12/21 Quality Technician Fiberglass Relationship Specialty Start Date End Date Dennis Marcial MD [address] [place] [address] PCP - General Family Practice 08/29/18 Iftikhar Sandoval V [address] [place] [address] Referring Internal Medicine 02/14/20 Natacha Conklin MD, [address] [place] [address] Physician Radiation Oncology 03/23/20 Charley Mcnally, VANDANA [address] [place] [address] Specialty Credit Rating Checker Hematology/Oncology 07/08/21 Augusta Roberts RN Roller Embosser 10/12/21 Quality Technician Fiberglass Relationship Specialty Start Date End Date Dennis Marcial MD [address] [facility] [place] [address] PCP - General Family Practice 08/29/18 Iftikhar Sandoval, V [address] [place] [address] Referring Internal Medicine 02/14/20 Natacha Conklin MD, [address] [place] [address] Physician Radiation Oncology 03/23/20 Charley Mcnally, VANDANA [address] [place] [address] Specialty Credit Rating Checker Hematology/Oncology 07/08/21 Augusta Roberts RN Roller Embosser 10/12/21 Quality Technician Fiberglass Relationship Specialty Start Date End Date Dennis Marcial MD [address] [facility] [place] [address] PCP - General Family Practice 08/29/18 Iftikhar Sandoval, V [address] [place] [address] Referring Internal Medicine 02/14/20 Natacha Conklin MD, [address] [place] [address] Physician Radiation Oncology 03/23/20 Charley Mcnally, VANDANA [address] [place] [address] Specialty Credit Rating Checker Hematology/Oncology 07/08/21 Augusta Roberts, VANDANA Roller Embosser 10/12/21 Carolina Lambert MD [address] [place] [address] Hematology/Oncology 01/04/22 Quality Technician Fiberglass Relationship Specialty Start Date End Date Dennis Marcial MD [address] [place] [address] PCP - General Family Practice 08/29/18 Iftikhar Sandoval V [address] [place] [address] Referring Internal Medicine 02/14/20 Natacha Conklin MD, [address] [place] [address] Physician Radiation Oncology 03/23/20 Charley Mcnally, RN [address] [place] [address] Specialty Credit Rating Checker Hematology/Oncology 07/08/21 Augusta Roberts, RN Roller Embosser 10/12/21 Carolina Lambert MD [address] [place] [address] Hematology/Oncology 01/04/22 Quality Technician Fiberglass Relationship Specialty Start Date End Date Dennis Marcial MD [address] [facility] [place] [address] PCP - General Family Medicine 08/29/18 Iftikhar Sandoval V [address] [place] [address] Referring Internal Medicine 02/14/20 Natacha Conklin MD, [address] [place] [address] Physician Radiation Oncology 03/23/20 Charley Mcnally, RN [address] [place] [address] Specialty Credit Rating Checker Hematology/Oncology 07/08/21 Augusta Roberts, RN Roller Embosser 10/12/21 Carolina Lambert MD [address] [place] [address] Hematology/Oncology 01/04/22 Quality Technician Fiberglass Relationship Specialty Start Date End Date Dennis Marcial MD [address] [facility] [place] [address] PCP - General Family Medicine 08/29/18 Iftikhar Sandoval V [address] [place] [address] Referring Internal Medicine 02/14/20 Natacha Conklin MD, [address] [place] [address] Physician Radiation Oncology 03/23/20 Charley Mcnally, VANDANA [address] [place] [address] Specialty Credit Rating Checker Hematology/Oncology 07/08/21 Augusta Roberts, RN Roller Embosser 10/12/21 Carolina Lambert MD [address] [place] [address] Hematology/Oncology 01/04/22 Quality Technician Fiberglass Relationship Specialty Start Date End Date Dennis Marcial MD [address] [facility] [place] [address] PCP - General Family Medicine 08/29/18 Iftikhar Sandoval V [address] [place] [address] Referring Internal Medicine 02/14/20 Natacha Conlkin MD, [address] [place] [address] Physician Radiation Oncology 03/23/20 Charley Mcnally, VANDANA [address] [place] [address] Specialty Credit Rating Checker Hematology/Oncology 07/08/21 Augusta Roberts, RN Roller Embosser 10/12/21 Carolina Lambert MD [address] [place] [address] Hematology/Oncology 01/04/22 Quality Technician Fiberglass Relationship Specialty Start Date End Date Dennis Marcial MD [address] [facility] [place] [address] PCP - General Family Medicine 08/29/18 Iftikhar Sandoval V [address] [place] [place] [address] Referring Internal Medicine 02/14/20 Natacha Conklin MD, [address] [place] [address] Physician Radiation Oncology 03/23/20 Charley Mcnally, VANDANA [address] [place] [address] Specialty Credit Rating Checker Hematology/Oncology 07/08/21 Augusta Roberts, RN Roller Embosser 10/12/21 Carolina Lambert MD [address] [place] [address] Hematology/Oncology 01/04/22 Quality Technician Fiberglass Relationship Specialty Start Date End Date Dennis Marcial MD [address] [facility] [place] [address] PCP - General Family Medicine 08/29/18 Iftikhar Sandoval V [address] [place] [address] Referring Internal Medicine 02/14/20 Natacha Conklin MD, [address] [place] [address] Physician Radiation Oncology 03/23/20 Charley Mcnally RN [address] [place] [address] Specialty Credit Rating Checker Hematology/Oncology 07/08/21 Augusta Roberts, RN Roller Embosser 10/12/21 Carolina Lambert MD [address] [place] [address] Hematology/Oncology 01/04/22 Quality Technician Fiberglass Relationship Specialty Start Date End Date Dennis Marcial MD [address] [facility] [place] [address] PCP - General Family Medicine 08/29/18 Iftikhar Sandoval V [address] [place] [address] Referring Internal Medicine 02/14/20 Natacha Conklin MD, [address] [place] [address] Physician Radiation Oncology 03/23/20 Charley Mcnally RN [address] [place] [address] Specialty Credit Rating Checker Hematology/Oncology 07/08/21 Augusta Roberts, RN Roller Embosser 10/12/21 Carolina Lambert MD [address] [place] [address] Hematology/Oncology 01/04/22 Quality Technician Fiberglass Relationship Specialty Start Date End Date Dennis Marcial MD [address] [facility] [place] [address] PCP - General Family Medicine 08/29/18 Iftikhar Sandoval V [address] [place] [address] Referring Internal Medicine 02/14/20 Natacha Conklin MD, [address] [place] [address] Physician Radiation Oncology 03/23/20 Charley Mcnally, VANDANA [address] [place] [address] Specialty Credit Rating Checker Hematology/Oncology 07/08/21 Augusta Roberts, RN Roller Embosser 10/12/21 Carolina Lambert MD [address] [place] [address] Hematology/Oncology 01/04/22 Quality Technician Fiberglass Relationship Specialty Start Date End Date Dennis Marcial MD [address] [place] [address] PCP - General Family Medicine 08/29/18 Iftikhar Sandoval V [address] [place] [address] Referring Internal Medicine 02/14/20 Natacha Conklin MD, [address] [place] [address] Physician Radiation Oncology 03/23/20 Charley Mcnally, VANDANA [address] [place] [address] Specialty Credit Rating Checker Hematology/Oncology 07/08/21 Augusta Roberts, RN Roller Embosser 10/12/21 Carolina Lambert MD [address] [place] [address] Hematology/Oncology 01/04/22 Quality Technician Fiberglass Relationship Specialty Start Date End Date Dennis Marcial MD [address] [facility] [place] [address] PCP - General Family Medicine 08/29/18 Iftikhar Sandoval V [address] [place] [address] Referring Internal Medicine 02/14/20 Natacha Conklin MD, [address] [place] [address] Physician Radiation Oncology 03/23/20 Charley Mcnally, VANDANA [address] [place] [address] Specialty Credit Rating Checker Hematology/Oncology 07/08/21 Augusta Roberts, RN Roller Embosser 10/12/21 Carolina Lambert MD [address] [place] [address] Hematology/Oncology 01/04/22 Quality Technician Fiberglass Relationship Specialty Start Date End Date Dennis Marcial MD [address] [place] [address] PCP - General Family Medicine 08/29/18 Iftikhar Sandoval V [address] [place] [address] Referring Internal Medicine 02/14/20 Natacha Conklin MD, [address] [place] [address] Physician Radiation Oncology 03/23/20 Charley Mcnally, VANDANA [address] [place] [address] Specialty Credit Rating Checker Hematology/Oncology 07/08/21 Augusta Roberts, RN Roller Embosser 10/12/21 Carolina Lambert MD [address] [place] [address] Hematology/Oncology 01/04/22 Quality Technician Fiberglass Relationship Specialty Start Date End Date Dennis Marcial MD [address] [facility] [place] [address] PCP - General Family Medicine 08/29/18 Iftikhar Sandoval V [address] [place] [address] Referring Internal Medicine 02/14/20 Natacha Conklin MD, [address] [place] [address] Physician Radiation Oncology 03/23/20 Charley Mcnally RN [address] [place] [address] Specialty Credit Rating Checker Hematology/Oncology 07/08/21 Augusta Roberts, RN Roller Embosser 10/12/21 Carolina Lambert MD [address] [place] [address] Hematology/Oncology 01/04/22 Team Status: Active Member Role Status Dates Dr. Dennis Marcial MD Family Provider Active Dr. Dennis Marcial MD Primary Care Provider Active Team Status: Inactive Member Role Status Dates Dr. Dennis Marcial MD Primary Care Provider Active Dr. Marcelina Holder DO Attending Provider Active Quality Technician Fiberglass Relationship Specialty Start Date End Date Dennis Marcial MD [address] [facility] [place] [address] PCP - General Family Medicine 08/29/18 Iftikhar Sandoval V [address] [place] [address] Referring Internal Medicine 02/14/20 Natacha Conklin MD, [address] [place] [address] Physician Radiation Oncology 03/23/20 Charley Mcnally RN [address] [place] [address] Specialty Credit Rating Checker Hematology/Oncology 07/08/21 Augusta Roberts, RN Roller Embosser 10/12/21 Carolina Lambert MD [address] [place] [address] Hematology/Oncology 01/04/22 Quality Technician Fiberglass Relationship Specialty Start Date End Date Dennis Marcial MD [address] [place] [address] PCP - General Family Medicine 08/29/18 Iftikhar Sandoval V [address] [place] [address] Referring Internal Medicine 02/14/20 Natacha Conklin MD, [address] [place] [address] Physician Radiation Oncology 03/23/20 Charley Mcnally RN [address] [place] [address] Specialty Credit Rating Checker Hematology/Oncology 07/08/21 Augusta Roberts, RN Roller Embosser 10/12/21 Carolina Lambert MD Hematology/Oncology 01/04/22 Quality Technician Fiberglass Relationship Specialty Start Date End Date Dennis Marcial MD [address] [place] [address] PCP - General Family Medicine 08/29/18 Iftikhar Sandoval V [address] [place] [address] Referring Internal Medicine 02/14/20 Natacha Conklin MD, [address] [place] [address] Physician Radiation Oncology 03/23/20 Charley Mcnally, VANDANA [address] [place] [address] Specialty Credit Rating Checker Hematology/Oncology 07/08/21 Augusta Roberts, RN Roller Embosser 10/12/21 Carolina Lambert MD Hematology/Oncology 01/04/22 Quality Technician Fiberglass Relationship Specialty Start Date End Date Dennis Marcial MD [address] [place] [address] PCP - General Family Medicine 08/29/18 Iftikhar Sandoval V [address] [place] [address] Referring Internal Medicine 02/14/20 Natacha Conklin MD, [address] [place] [address] Physician Radiation Oncology 03/23/20 Charley Mcnally RN [address] [place] [address] Specialty Credit Rating Checker Hematology/Oncology 07/08/21 Augusta Roberts, RN Roller Embosser 10/12/21 Carolina Lambert MD Hematology/Oncology 01/04/22 Quality Technician Fiberglass Relationship Specialty Start Date End Date Dennis Marcial MD [address] [place], [place] [address] PCP - General Family Medicine 08/29/18 Iftikhar Sandoval V [address] [place] [address] Referring Internal Medicine 02/14/20 Natacha Conklin MD, [address] [place] [address] Physician Radiation Oncology 03/23/20 Charley Mcnally, VANDANA [address] [place] [address] Specialty Credit Rating Checker Hematology/Oncology 07/08/21 Augusta Roberts, VANDANA Roller Embosser 10/12/21 Carolina Lambret MD Hematology/Oncology 01/04/22 Team Status: Inactive Member Role Status Dates Dr. Dennis Marcial MD Primary Care Provider, Referrin g Provider Active Latia Titus NP, OCC THERAPY ASST-C Attending Provider Active Team Status: Inactive Member Role Status Dates Dr. Dennis Marcial MD Primary Care Provider Active Dr. Alexandra Baker MD Attending Provider, Referring Provider Active Quality Technician Fiberglass Relationship Specialty Start Date End Date Dennis Marcial MD [address] [facility] [place] [address] PCP - General Family Medicine 08/29/18 Iftikhar Sandoval V [address] [place] [address] Referring Internal Medicine 02/14/20 Natacha Conklin MD, [address] [place] [address] Physician Radiation Oncology 03/23/20 Charley Mcnally, VANDANA [address] [place] [address] Specialty Credit Rating Checker Hematology/Oncology 07/08/21 Augusta Roberts, RN Roller Embosser 10/12/21 [place] [address] [place] [address] Hematology/Oncology 11/15/22 Quality Technician Fiberglass Relationship Specialty Start Date End Date Dennis Marcial MD [address] [place] [address] PCP - General Family Medicine 08/29/18 Iftikhar Sandoval V [address] [place] [address] Referring Internal Medicine 02/14/20 Natacha Conklin MD, [address] [place] [address] Physician Radiation Oncology 03/23/20 Charley Mcnally, VANDANA [address] [place] [address] Specialty Credit Rating Checker Hematology/Oncology 07/08/21 Augusta Roberts, RN Roller Embosser 10/12/21 [place] [address] [place] [address] Hematology/Oncology 11/15/22 Quality Technician Fiberglass Relationship Specialty Start Date End Date Dennis Marcial MD [address] [place], [place] [address]54646 PCP - General Family Medicine 08/29/18 Iftikhar Sandoval V [address] [place] [address] Referring Internal Medicine 02/14/20 Natacha Conklin MD, [address] [place] [address] Physician Radiation Oncology 03/23/20 Charley Mcnally, VANDANA [address] [place] [address] Specialty Credit Rating Checker Hematology/Oncology 07/08/21 Augusta Roberts, RN Roller Embosser 10/12/21 [place] [address] [place], [place] [phone] Hematology/Oncology 11/15/22 Quality Technician Fiberglass Relationship Specialty Start Date End Date Dennis Marcial MD [address] [place] [address] PCP - General Family Medicine 08/29/18 Iftikhar Sandoval V [address] [place] [address] Referring Internal Medicine 02/14/20 Natacha Conklin MD, [address] [place] [address] Physician Radiation Oncology 03/23/20 Charley Mcnally, VANDANA [address] [place] [address] Specialty Credit Rating Checker Hematology/Oncology 07/08/21 Augusta Roberts, RN Roller Embosser 10/12/21 [place] [address] [place], [place] [address] Hematology/Oncology 11/15/22 Quality Technician Fiberglass Relationship Specialty Start Date End Date Dennis Marcial MD [address] [place], [place] 200496 PCP - General Family Medicine 08/29/18 Iftikhar Sandoval V [address] [place] [address] Referring Internal Medicine 02/14/20 Natacha Conklin MD, [address] [place] [address] Physician Radiation Oncology 03/23/20 Charley Mcnally RN [address] [place] [address] Specialty Credit Rating Checker Hematology/Oncology 07/08/21 Augusta Roberts, RN Roller Embosser 10/12/21 [place] [address] [place], [place] [phone] Hematology/Oncology 11/15/22 Quality Technician Fiberglass Relationship Specialty Start Date End Date Dennis Marcial MD [address] [place], [place] [address]3436 PCP - General Family Medicine 08/29/18 Iftikhar Sandoval V [address] [place] [address] Referring Internal Medicine 02/14/20 Natacha Conklin MD, [address] [place] [address] Physician Radiation Oncology 03/23/20 Charley Mcnally, RN [address] [place] [address] Specialty Credit Rating Checker Hematology/Oncology 07/08/21 Shane Steward MD [address] [place] [address] Hematology/Oncology 12/09/22 Quality Technician Fiberglass Relationship Specialty Start Date End Date Dennis Marcial MD [address] [facility] [place] [address] PCP - General Family Medicine 08/29/18 Iftikhar Sandoval V [address] [place] [address] Referring Internal Medicine 02/14/20 Natacha Conklin MD, [address] [place] [address] Physician Radiation Oncology 03/23/20 Charley Mcnally, VANDANA [address] [place] [address] Specialty Credit Rating Checker Hematology/Oncology 07/08/21 Shane Steward MD [address] [place] [address] Hematology/Oncology 12/09/22 Quality Technician Fiberglass Relationship Specialty Start Date End Date Dennis Marcial MD [address] [facility] [place] [address] PCP - General Family Medicine 08/29/18 Iftikhar Sandoval V [address] [place] [address] Referring Internal Medicine 02/14/20 Natacha Conklin MD, [address] [place] [address] Physician Radiation Oncology 03/23/20 Charley Mcnally, VANDANA [address] [place] [address] Specialty Credit Rating Checker Hematology/Oncology 07/08/21 Shane Steward MD [address] [place] [address] Hematology/Oncology 12/09/22 Quality Technician Fiberglass Relationship Specialty Start Date End Date Dennis Marcial MD [address] [facility] [place] [address] PCP - General Family Medicine 08/29/18 Iftikhar Sandoval V [address] [place] [address] Referring Internal Medicine 02/14/20 Natacha Conklin MD, [address] [place] [address] Physician Radiation Oncology 03/23/20 Charley Mcnally, VANDANA [address] [place] [address] Specialty Credit Rating Checker Hematology/Oncology 07/08/21 Shane Steward MD [address] [place] [address] Hematology/Oncology 12/09/22 Kenney Holder [address] [place] [address] Orthopedics 12/30/22 Alexandra Baker [address] [place] [address] Rheumatology 10/19/22 Quality Technician Fiberglass Relationship Specialty Start Date End Date Dennis Marcial MD [address] [place] [address] PCP - General Family Medicine 08/29/18 Iftikhar Sandoval V [address] [place] [address] Referring Internal Medicine 02/14/20 Natacha Conklin MD, [address] [place] [address] Physician Radiation Oncology 03/23/20 Charley Mcnally, VANDANA [address] [place] [address] Specialty Credit Rating Checker Hematology/Oncology 07/08/21 Shane Steward MD [address] [place] [address] Hematology/Oncology 12/09/22 Kenney Holder [address] [place] [address] Orthopedics 12/30/22 Alexandra Baker [address] [place] [address] Rheumatology 10/19/22 Quality Technician Fiberglass Relationship Specialty Start Date End Date Dennis Marcial MD [address] [place] [address] PCP - General Family Medicine 08/29/18 Iftikhar Sandoval V [address] [place] [address] Referring Internal Medicine 02/14/20 Natacha Conklin MD, [address] [place] [address] Physician Radiation Oncology 03/23/20 Charley Mcnally, RN [address] [place] [address] Specialty Credit Rating Checker Hematology/Oncology 07/08/21 Shane Steward MD [address] [place] [phone] Hematology/Oncology 12/09/22 Kenney Holder [address] [place] [address] Orthopedics 12/30/22 Alexandra Baker [address] [place] [address] Rheumatology 10/19/22 Quality Technician Fiberglass Relationship Specialty Start Date End Date Dennis Marcial MD [address] [facility] [place] [address] PCP - General Family Medicine 08/29/18 Iftikhar Sandoval V [address] [place] [address] Referring Internal Medicine 02/14/20 Natacha Conklin MD, [address] [place] [address] Physician Radiation Oncology 03/23/20 Charley Mcnally, RN [address] [place] [address] Specialty Credit Rating Checker Hematology/Oncology 07/08/21 Shane Steward MD [address] [place] [address] Hematology/Oncology 12/09/22 Kenney Holder [address] [place] [address] Orthopedics 12/30/22 Alexandra Baker [address] [place] [address] Rheumatology 10/19/22 Quality Technician Fiberglass Relationship Specialty Start Date End Date Dennis Marcial MD [address] [facility] [place] [address] PCP - General Family Medicine 08/29/18 Iftikhar Sandoval V [address] [facility] [place] [address] Referring Internal Medicine 02/14/20 Natacha Conklin MD, [address] [place] [address] Physician Radiation Oncology 03/23/20 Charley Mcnally RN [address] [place] [address] Specialty Credit Rating Checker Hematology/Oncology 07/08/21 Shane Steward MD [address] [place] [address] Hematology/Oncology 12/09/22 Kenney Holder [address] [facility] [address] [place] [address] Orthopedics 12/30/22 Alexandra Baker [address] [place] [address] Rheumatology 10/19/22 Quality Technician Fiberglass Relationship Specialty Start Date End Date Dennis Marcial MD [address] [place] [address] PCP - General Family Medicine 08/29/18 Iftikhar Sandoval V [address] [place] [address] Referring Internal Medicine 02/14/20 Natacha Conklin MD, [address] [place] [address] Physician Radiation Oncology 03/23/20 Charley Mcnally RN [address] [place] [address] Specialty Credit Rating Checker Hematology/Oncology 07/08/21 Shane Steward MD [address] [place] [address] Hematology/Oncology 12/09/22 Kenney Holder [address] [place] [address] Orthopedics 12/30/22 Alexandra Baker [address] [place] [address] Rheumatology 10/19/22 Quality Technician Fiberglass Relationship Specialty Start Date End Date Dennis Marcial MD [address] [place] [address] PCP - General Family Medicine 08/29/18 Iftikhar Sandoval V [address] [place] [address] Referring Internal Medicine 02/14/20 Natacha Conklin MD, [address] [place] [address] Physician Radiation Oncology 03/23/20 Charley Mcnally, VANDANA [address] [place] [address] Specialty Credit Rating Checker Hematology/Oncology 07/08/21 Shane Steward MD [address] [place] [address] Hematology/Oncology 12/09/22 Kenney Holder [address] [place] [address] Orthopedics 12/30/22 Alexandra Baker [address] [place] [address] Rheumatology 10/19/22 Quality Technician Fiberglass Relationship Specialty Start Date End Date Dennis Marcial MD [address] [place], [place] [address]176 PCP - General Family Medicine 08/29/18 Iftikhar Sandoval V [address] [facility] [place] [address] Referring Internal Medicine 02/14/20 Natacha Conklin MD, MD [address] [place] [address] Physician Radiation Oncology 03/23/20 Charley Mcnally, RN [address] [place] [address] Specialty Credit Rating Checker Hematology/Oncology 07/08/21 Shane Steward MD [address] [place] [address] Hematology/Oncology 12/09/22 Kenney Holder [address] [place] [address] Orthopedics 12/30/22 Alexandra Baker [address] [place] [address] Rheumatology 10/19/22 Quality Technician Fiberglass Relationship Specialty Start Date End Date Dennis Marcial MD [address] [place] [address] PCP - General Family Medicine 08/29/18 Iftikhar Sandoval V [address] [place] [address] Referring Internal Medicine 02/14/20 Natacha Conklin MD, [address] [place] [address] Physician Radiation Oncology 03/23/20 Charley Mcnally, VANDANA [address] [place] [address] Specialty Credit Rating Checker Hematology/Oncology 07/08/21 Shane Steward MD [address] [place] [address] Hematology/Oncology 12/09/22 Kenney Holdre [address] [place] [address] Orthopedics 12/30/22 Alexandra Baker [address] [place] [address] Rheumatology 10/19/22 Quality Technician Fiberglass Relationship Specialty Start Date End Date Dennis Marcial MD [address] [place] [address] PCP - General Family Medicine 08/29/18 Iftikhar Sandoval V [address] [place] [address] Referring Internal Medicine 02/14/20 Natacha Conklin MD, [address] [facility] [address] [place], [place] [address] Physician Radiation Oncology 03/23/20 Charley Mcnally, VANDANA [address] [place] [address] Specialty Credit Rating Checker Hematology/Oncology 07/08/21 Shane Steward MD [address] [facility] [address] [place], [place] [address] Hematology/Oncology 12/09/22 Kenney Holder [address] [place] [address] Orthopedics 12/30/22 Alexandra Baker [address] [place] [address] Rheumatology 10/19/22 Oscar Mireles MD [address] [facility] [place] [address] Pulmonary and Critical Care Medicine 01/27/23 Lesley Mayer, DRY YARD WORKER [address] [facility] [address] [place] [address] Director Biologics Nurse Practitioner 11/09/22 Quality Technician Fiberglass Relationship Specialty Start Date End Date Dennis Marcial MD [address] [place] [address] PCP - General Family Medicine 08/29/18 Iftikhar Sandoval V [address] [facility] [place] [address] Referring Internal Medicine 02/14/20 Natacha Conklin MD, [address] [facility] [address] [place], [place] [address] Physician Radiation Oncology 03/23/20 Charley Mcnally, VANDANA [address] [place], [place] [address] Specialty Credit Rating Checker Hematology/Oncology 07/08/21 Shane Steward MD [address] [place] [address] Hematology/Oncology 12/09/22 Kenney Holder [address] [place] [address] Orthopedics 12/30/22 Alexandra Baker [address] [place] [address] Rheumatology 10/19/22 Oscar Mireles MD [address] [place] [address] Pulmonary and Critical Care Medicine 01/27/23 Lesley Mayer, DRY YARD WORKER [address] [facility] [address] [place] [address] Director Biologics Nurse Practitioner 11/09/22 Quality Technician Fiberglass Relationship Specialty Start Date End Date Dennis Marcial MD [address] [place] [address] PCP - General Family Medicine 08/29/18 Iftikhar Sandoval V [address] [place] [address] Referring Internal Medicine 02/14/20 Natacha Conklin MD, [address] [place], [place] [address]81 Physician Radiation Oncology 03/23/20 Charley Mcnally, VANDANA [address] [place] [address]04951 Specialty Credit Rating Checker Hematology/Oncology 07/08/21 Augusta Roberts, VANDANA Roller Embosser 10/12/21 12/08/22 [place] [address] [place] [address] Hematology/Oncology 11/15/22 12/08/22 Shane Steward MD [address] [place] [address]561 Hematology/Oncology 12/09/22 Kenney Holder [address] [place] [address] Orthopedics 12/30/22 Alexandra Baker [address] [place] [address] Rheumatology 10/19/22 Oscar Mireles MD [address] [place] 4[address] Pulmonary and Critical Care Medicine 01/27/23 Lesley Mayer, DRY YARD WORKER [address] [place] [address] [place] [address] Director Biologics Nurse Practitioner 11/09/22 Quality Technician Fiberglass Relationship Specialty Start Date End Date Dennis Marcial MD [address] [place] [address] PCP - General Family Medicine 08/29/18 Iftikhar Sandoval V [address] [facility] [place] [address] Referring Internal Medicine 02/14/20 Natacha Conklin MD, [address] [address] Physician Radiation Oncology 03/23/20 Charley Mcnally, VANDANA [address] [place] [address] Specialty Credit Rating Checker Hematology/Oncology 07/08/21 Shane Steward MD [address] [address] Hematology/Oncology 12/09/22 Kenney Holder [address] [place] [address] Orthopedics 12/30/22 Alexandra Baker [address] [place] [address] Rheumatology 10/19/22 Oscar Mireles MD [address] [place] [address] Pulmonary and Critical Care Medicine 01/27/23 Lesley Mayer, DRY YARD WORKER [address] [place] [address] [place] [address] Director Biologics Nurse Practitioner 11/09/22 Quality Technician Fiberglass Relationship Specialty Start Date End Date Dennis Marcial MD [address] [place] [address] PCP - General Family Medicine 08/29/18 Iftikhar Sandoval V [address] [facility] [place] [address] Referring Internal Medicine 02/14/20 Natacha Conklin MD, [address] [place] [address] Physician Radiation Oncology 03/23/20 Charley Mcnally, RN [address] [place] [address] Specialty Credit Rating Checker Hematology/Oncology 07/08/21 Shane Steward MD [address] [place] [address] Hematology/Oncology 12/09/22 Kenney Holder [address] [place] [address] Orthopedics 12/30/22 Alexandra Baker [address] [place] [address] Rheumatology 10/19/22 Oscar Mireles MD [address] [place] [address] Pulmonary and Critical Care Medicine 01/27/23 Lesley Mayer, DRY YARD WORKER [address] [facility] [address] [place] [address] Director Biologics Nurse Practitioner 11/09/22 Quality Technician Fiberglass Relationship Specialty Start Date End Date Dennis Marcial MD [address] [place] [address] PCP - General Family Medicine 08/29/18 Iftikhar Sandoval V [address] [place] [address] Referring Internal Medicine 02/14/20 Natacha Conklin MD, [address] [place] [address] Physician Radiation Oncology 03/23/20 Charley Mcanlly, VANDANA [address] [place] [address] Specialty Credit Rating Checker Hematology/Oncology 07/08/21 Augusta Roberts, VANDANA Roller Embosser 10/12/21 12/08/22 Carolina Lambert MD Hematology/Oncology 01/04/22 11/14/22 Quality Technician Fiberglass Relationship Specialty Start Date End Date Dennis Marcial MD [address] [place] [address] PCP - General Family Medicine 08/29/18 Iftikhar Sandoval V [address] [place] [address] Referring Internal Medicine 02/14/20 Natacha Conklin MD, [address] [place] [address] Physician Radiation Oncology 03/23/20 Charley Mcnally, RN [address] [place] [address] Specialty Credit Rating Checker Hematology/Oncology 07/08/21 Shane Steward MD [address] [place] [address] Hematology/Oncology 12/09/22 Kenney Holder [address] [place] [address] Orthopedics 12/30/22 Alexandra Baker [address] [place] [address] Rheumatology 10/19/22 Oscar Mireles MD [address] [place] [address] Pulmonary and Critical Care Medicine 01/27/23 Lesley Mayer, DRY YARD WORKER [address] [place] [address] [place] [address] Director Biologics Nurse Practitioner 11/09/22 Quality Technician Fiberglass Relationship Specialty Start Date End Date Dennis Marcial MD [address] [place] [address] PCP - General Family Medicine 08/29/18 Iftikhar Sandoval V [address] [facility] [place] [address] Referring Internal Medicine 02/14/20 Natacha Conklin MD, MD [address] [facility] [place], [place] [address] Physician Radiation Oncology 03/23/20 Charley Mcnally, RN [address] [place] [address] Specialty Credit Rating Checker Hematology/Oncology 07/08/21 Shane Steward MD [address] [place], [place] [address] Hematology/Oncology 12/09/22 Kenney Holder [address] [facility] [address] [place] [address] Orthopedics 12/30/22 Alexandra Baker [address] [facility] [address] [place] [address] Rheumatology 10/19/22 Oscar Mireles MD [address] [place], [place] [phone] Pulmonary and Critical Care Medicine 01/27/23 Lesley Mayer, DRY YARD WORKER [address] [facility] [address] [place] [address] Director Biologics Nurse Practitioner 11/09/22 Quality Technician Fiberglass Relationship Specialty Start Date End Date Dennis Marcial MD [address] [place] [address] PCP - General Family Medicine 08/29/18 Iftikhar Sandoval V [address] [place] [address] Referring Internal Medicine 02/14/20 Natacha Conklin MD, [address] [address] [place], [place] [address] Physician Radiation Oncology 03/23/20 Charley Mcnally, VANDANA [address] [place] [address] Specialty Credit Rating Checker Hematology/Oncology 07/08/21 Shane Steward MD [address] [facility] [facility] [place] [address] Hematology/Oncology 12/09/22 Kenney Holder [address] [place] [address] Orthopedics 12/30/22 Alexandra Baker [address] [place] [address] Rheumatology 10/19/22 Oscar Mireles MD [address] [place], [place] [address] Pulmonary and Critical Care Medicine 01/27/23 Lesley Mayer, DRY YARD WORKER [address] [facility] [address] [place] [address] Director Biologics Nurse Practitioner 11/09/22 Quality Technician Fiberglass Relationship Specialty Start Date End Date Dennis Marcial MD [address] [place] [address] PCP - General Family Medicine 08/29/18 Iftikhar Sandoval V [address] [facility] [place] [address] Referring Internal Medicine 02/14/20 Natacha Conklin MD, [address] [place], [place] [address] Physician Radiation Oncology 03/23/20 Charley Mcnally, VANDANA [address] [place] [address] Specialty Credit Rating Checker Hematology/Oncology 07/08/21 Shane Steward MD [address] [place] [address] Hematology/Oncology 12/09/22 Kenney Holder [address] [place] [address] Orthopedics 12/30/22 Alexandra Baker [address] [place] [address] Rheumatology 10/19/22 Oscar Mireles MD [address] [place] [address] Pulmonary and Critical Care Medicine 01/27/23 Lesley Mayer, DRY YARD WORKER [address] [facility] [address] [place] [address] Director Biologics Nurse Practitioner 11/09/22 Quality Technician Fiberglass Relationship Specialty Start Date End Date Dennis Marcial MD [address] [place] [address] PCP - General Family Medicine 08/29/18 Iftikhar Sandoval V [address] [place] [address] Referring Internal Medicine 02/14/20 Natacha Conklin MD [address] [place] [phone] Physician Radiation Oncology 03/23/20 Charley Mcnally, VANDANA [address] [place], [place] [id number] Specialty Credit Rating Checker Hematology/Oncology 07/08/21 Shane Steward MD [address] [place] [address] Hematology/Oncology 12/09/22 Kenney Holder [address] [place] [address] Orthopedics 12/30/22 Alexandra Baker [address] [place] [address] Rheumatology 10/19/22 Oscar Mireles MD [address] [place] [address] Pulmonary and Critical Care Medicine 01/27/23 Lesley Mayer, DRY YARD WORKER [address]7599 [facility] [address] [place] [address] Director Biologics Nurse Practitioner 11/09/22 Quality Technician Fiberglass Relationship Specialty Start Date End Date Dennis Marcial MD [address] [place] [address] PCP - General Family Medicine 08/29/18 Iftikhar Sandoval V [address] [facility] [place] [address] Referring Internal Medicine 02/14/20 Natacha Conklin MD [address] [place] [address] Physician Radiation Oncology 03/23/20 Charley Mcnally, VANDANA [address] [place], [place] [address] Specialty Credit Rating Checker Hematology/Oncology 07/08/21 Shane Steward MD [address] [place] [address] Hematology/Oncology 12/09/22 Kenney Holder [address] [place] [address] Orthopedics 12/30/22 Alexandra Baker [address] [place] [address] Rheumatology 10/19/22 Oscar Mireles MD [address] [place] [address] Pulmonary and Critical Care Medicine 01/27/23 Lesley Mayer, DRY YARD WORKER [address]898 [facility] [address] [place] [address] Director Biologics Nurse Practitioner 11/09/22 Quality Technician Fiberglass Relationship Specialty Start Date End Date Dennis Marcial MD [address] [place] [address] PCP - General Family Medicine 08/29/18 Iftikhar Sandoval V [address] [facility] [place] [address] Referring Internal Medicine 02/14/20 Natacha Conklin MD [address] [facility] [place] [address] Physician Radiation Oncology 03/23/20 Charley Mcnally, VANDANA [address] [facility] [place] [address] Specialty Credit Rating Checker Hematology/Oncology 07/08/21 Shane Steward MD [address] [place] [address] Hematology/Oncology 12/09/22 Kenney Holder [address] [place] [address]08[address] Orthopedics 12/30/22 Alexandra Baker [address] [place] [address] Rheumatology 10/19/22 Oscar Mireles MD [address] [place] [address] Pulmonary and Critical Care Medicine 01/27/23 Lesley Mayer, DRY YARD WORKER 53223 [facility] [address] [place] [address] Director Biologics Nurse Practitioner 11/09/22 Quality Technician Fiberglass Relationship Specialty Start Date End Date Dennis Marcial MD [address] [place] [address] PCP - General Family Medicine 08/29/18 Iftikhar Sandoval V [address] [facility] [place] [address] Referring Internal Medicine 02/14/20 Natacha Conklin MD [address] [place] [address] [phone] Physician Radiation Oncology 03/23/20 Charley Mcnally, VANDANA [address] [address] Specialty Credit Rating Checker Hematology/Oncology 07/08/21 Shane Steward MD [address] [address] Hematology/Oncology 12/09/22 Kenney Holder [address] [place] [address] Orthopedics 12/30/22 Alexandra Baker [address] [place] [address] Rheumatology 10/19/22 Oscar Mireles MD [address] [facility] [place] [address] Pulmonary and Critical Care Medicine 01/27/23 Lesley Mayer, DRY YARD WORKER 63719 [facility] [address] [place] [address] Director Biologics Nurse Practitioner 11/09/22 Quality Technician Fiberglass Relationship Specialty Start Date End Date Dennis Marcial MD [address] [place] [address] PCP - General Family Medicine 08/29/18 Iftikhar Sandoval V [address] [place] [address] Referring Internal Medicine 02/14/20 Natacha Conklin MD [address] [place] [address] Physician Radiation Oncology 03/23/20 Charley Mcnally, VANDANA [address] [place] [address] Specialty Credit Rating Checker Hematology/Oncology 07/08/21 Shane Steward MD [address] [place] [address] Hematology/Oncology 12/09/22 Kenney Holder [address] [place] [address] Orthopedics 12/30/22 Alexandra Baker [address] [place] [address] Rheumatology 10/19/22 Oscar Mireles MD [address] [place] [address] Pulmonary and Critical Care Medicine 01/27/23 Lesley Mayer, DRY YARD WORKER 19296 [facility] [address] [place] [address] Director Biologics Nurse Practitioner 11/09/22 Quality Technician Fiberglass Relationship Specialty Start Date End Date Dennis Marcial MD [address] [place] [address] PCP - General Family Medicine 08/29/18 Iftikhar Sandoval V [address] [facility] [place] [address] Referring Internal Medicine 02/14/20 Natacha Conklin MD [address] [address] Physician Radiation Oncology 03/23/20 Charley Mcnally, VANDANA [address] [place] [address] Specialty Credit Rating Checker Hematology/Oncology 07/08/21 Shane Steward MD [address] [place] [address] Hematology/Oncology 12/09/22 Kenney Holder [address] [place] [address] Orthopedics 12/30/22 Alexandra Baker [address] [place] [address] Rheumatology 10/19/22 Oscar Mireles MD [address] [place] [address] Pulmonary and Critical Care Medicine 01/27/23 Lesley Mayer, DRY YARD WORKER [address] [place] [address] Director Biologics Nurse Practitioner 11/09/22 Quality Technician Fiberglass Relationship Specialty Start Date End Date Dennis Marcial MD [address] [place] [address] PCP - General Family Medicine 08/29/18 Iftikhar Sandoval V [address] [facility] [place] [address] Referring Internal Medicine 02/14/20 Natacha Conklin MD [address] [place] [address] Physician Radiation Oncology 03/23/20 Charley Mcnally, VANDANA [address] [place] [address] Specialty Credit Rating Checker Hematology/Oncology 07/08/21 Shane Steward MD [address] [place] [address] Hematology/Oncology 12/09/22 Kenney Holder [address] [place] [address] Orthopedics 12/30/22 Alexandra Baker [address] [place] [address] Rheumatology 10/19/22 Oscar Mireles MD [address] [place] [address] Pulmonary and Critical Care Medicine 01/27/23 Lesley Mayer, DRY YARD WORKER [address] [place] [address] Director Biologics Nurse Practitioner 11/09/22 Quality Technician Fiberglass Relationship Specialty Start Date End Date Dennis Marcial MD [address] [place] [address] PCP - General Family Medicine 08/29/18 Iftikhar Sandoval V [address] [place] [address] Referring Internal Medicine 02/14/20 Natacha Conlkin MD [address] [place] [address] Physician Radiation Oncology 03/23/20 Charley Mcnally, VANDANA [address] [place] [address] Specialty Credit Rating Checker Hematology/Oncology 07/08/21 Shane Steward MD [address] [place] [address] Hematology/Oncology 12/09/22 Kenney Holder [address] [place] [address] Orthopedics 12/30/22 Alexandra Baker [address] [place] [address] Rheumatology 10/19/22 Oscar Mireles MD [address] [place] [address] Pulmonary and Critical Care Medicine 01/27/23 Lesley Mayer, DRY YARD WORKER [address] [place] [address] Director Biologics Nurse Practitioner 11/09/22 Quality Technician Fiberglass Relationship Specialty Start Date End Date Dennis Marcial MD [address] [place] [address] PCP - General Family Medicine 08/29/18 Iftikhar Sandoval V [address] [facility] [place] [address] Referring Internal Medicine 02/14/20 Natacha Conklin MD [address] [place] [address] Physician Radiation Oncology 03/23/20 Charley Mcnally, RN [address] [place] [address] Specialty Credit Rating Checker Hematology/Oncology 07/08/21 Shane Steward MD [address] [place] [address] Hematology/Oncology 12/09/22 eKnney Holder [address] [place] [address] Orthopedics 12/30/22 Alexandra Baker [address] [place] [address] Rheumatology 10/19/22 Oscar Mireles MD [address] [place] [address] Pulmonary and Critical Care Medicine 01/27/23 Lesley Mayer, DRY YARD WORKER [address] [facility] [address] [place] [address] Director Biologics Nurse Practitioner 11/09/22 Quality Technician Fiberglass Relationship Specialty Start Date End Date Dennis Marcial MD [address] [place] [address] PCP - General Family Medicine 08/29/18 Iftikhar Sandoval V [address] [facility] [place] [address]3674[address]1248 Referring Internal Medicine 02/14/20 Natacha Conklin MD [address] [place] [address] Physician Radiation Oncology 03/23/20 Charley Mcnally, VANDANA [address] [place] [address] Specialty Credit Rating Checker Hematology/Oncology 07/08/21 Shane Steward MD [address] [place] [address] Hematology/Oncology 12/09/22 Kenney Holder [address] [place] [address] Orthopedics 12/30/22 Alexandra Baker [address] [place] [address] Rheumatology 10/19/22 Oscar Mireles MD [address] [place] [address] Pulmonary and Critical Care Medicine 01/27/23 Lesley Mayer, DRY YARD WORKER [address] [place] [address] Director Biologics Nurse Practitioner 11/09/22 Quality Technician Fiberglass Relationship Specialty Start Date End Date Dennis Marcial MD [address] [place] [address] PCP - General Family Medicine 08/29/18 Iftikhar Sandoval V [address] [facility] [place] [address] Referring Internal Medicine 02/14/20 Natacha Conklin MD [address] [place] [address] Physician Radiation Oncology 03/23/20 Charley Mcnally, VANDANA [address] [place] [address] Specialty Credit Rating Checker Hematology/Oncology 07/08/21 Shane Steward MD [address] [place] [address] Hematology/Oncology 12/09/22 Kenney Holder [address] [place] [address] Orthopedics 12/30/22 Alexandra Baker [address] [place] [address]4422691[address] Rheumatology 10/19/22 Oscar Mireles MD [address] [place] [address] Pulmonary and Critical Care Medicine 01/27/23 Lesley Mayer, DRY YARD WORKER [address] [place] [address] Director Biologics Nurse Practitioner 11/09/22 Quality Technician Fiberglass Relationship Specialty Start Date End Date Dennis Marcial MD [address] [place], [place] [address] PCP - General Family Medicine 08/29/18 Iftikhar Sandoval V [address] [place] [place] [address]-6515691[address]1248 Referring Internal Medicine 02/14/20 Natacha Conklin MD [address] [place] [address] Physician Radiation Oncology 03/23/20 Charley Mcnally, RN [address] [place] [address] Specialty Credit Rating Checker Hematology/Oncology 07/08/21 Shane Steward MD [address] [place] [address] Hematology/Oncology 12/09/22 Kenney Holder [address] [place] [address]56[address]691[address] Orthopedics 12/30/22 Alexandra Baker [address] [place] [address] Rheumatology 10/19/22 Oscar Mireles MD [address] [place] [address] Pulmonary and Critical Care Medicine 01/27/23 Lesley Mayer, DRY YARD WORKER 74115 [facility] [address] [place] [address] Director Biologics Nurse Practitioner 11/09/22 Quality Technician Fiberglass Relationship Specialty Start Date End Date Dennis Marcial MD [address] [place] [address] PCP - General Family Medicine 08/29/18 Iftikhar Sandoval V [address] [facility] [place] [address] Referring Internal Medicine 02/14/20 Natacha Conklin MD [address] [place] [address] Physician Radiation Oncology 03/23/20 Charley Mcnally, VANDANA [address] [facility] [place] [address] Specialty Credit Rating Checker Hematology/Oncology 07/08/21 Augusta Roberts, RN Roller Embosser 10/12/21 12/08/22 Carolina Lambert MD Hematology/Oncology 01/04/22 11/14/22 Quality Technician Fiberglass Relationship Specialty Start Date End Date Dennis Marcial MD [address] [place] [address] PCP - General Family Medicine 08/29/18 Iftikhar Sandoval V [address] [facility] [place] [address] Referring Internal Medicine 02/14/20 Natacha Conklin MD [address] [facility] [address] [place] [address] Physician Radiation Oncology 03/23/20 Charley Mcnally, VANDANA [address] [place] [address] Specialty Credit Rating Checker Hematology/Oncology 07/08/21 Shane Steward MD [address] [facility] [address] Hematology/Oncology 12/09/22 Kenney Holder [address] [place] [address] Orthopedics 12/30/22 Alexandra aBker [address] [place] [address] Rheumatology 10/19/22 Oscar Mireles MD [address] [facility] [place] [address] Pulmonary and Critical Care Medicine 01/27/23 Lesley Mayer, DRY YARD WORKER 18349 [facility] [address] [place] [address] Director Biologics Nurse Practitioner 11/09/22 Quality Technician Fiberglass Relationship Specialty Start Date End Date Dennis Marcial MD [address] [place] [address] PCP - General Family Medicine 08/29/18 Iftikhar Sandoval V [address] [place] [place] [address]2338691[address]1248 Referring Internal Medicine 02/14/20 Natacha Conklin MD [address] [place], [place] [address] Physician Radiation Oncology 03/23/20 Charley Mcnally, VANDANA [address] [place], [place] [address] Specialty Credit Rating Checker Hematology/Oncology 07/08/21 Shane Steward MD [address] [place] [address] Hematology/Oncology 12/09/22 Kenney Holder [address] [place] [address] Orthopedics 12/30/22 Alexandra Baker [address] [place] [address] Rheumatology 10/19/22 Oscar Mireles MD [address] [address] Pulmonary and Critical Care Medicine 01/27/23 Lesley Mayer, DRY YARD WORKER 26613 [facility] [address] [place] [address] Director Biologics Nurse Practitioner 11/09/22 Quality Technician Fiberglass Relationship Specialty Start Date End Date Dennis Marcial MD [address] [place] [address] PCP - General Family Medicine 08/29/18 Iftkihar Sandoval V [address] [place] [address] Referring Internal Medicine 02/14/20 Natacha Conklin MD [address] [place], [place] [address] Physician Radiation Oncology 03/23/20 Charley Mcnally, VANDANA [address] [place], [place] [address] Specialty Credit Rating Checker Hematology/Oncology 07/08/21 Shane Steward MD [address] [place] [address] Hematology/Oncology 12/09/22 Kenney Holder [address] [place] [address] Orthopedics 12/30/22 Alexandra Baker [address] [place] [address] Rheumatology 10/19/22 Oscar Mireles MD [address] [place] [address] Pulmonary and Critical Care Medicine 01/27/23 Lesley Mayer, DRY YARD WORKER 86601 [facility] [address] [place] [address] Director Biologics Nurse Practitioner 11/09/22 Quality Technician Fiberglass Relationship Specialty Start Date End Date Dennis Marcial MD [address] [place] [address] PCP - General Family Medicine 08/29/18 Iftikhar Sandoval V [address] [facility] [place] [address] Referring Internal Medicine 02/14/20 Natacha Conklin MD [address] [place] [address] Physician Radiation Oncology 03/23/20 Charley Mcnally, VANDANA [address] [place] [place] [address] Specialty Credit Rating Checker Hematology/Oncology 07/08/21 Shane Steward MD [address] [place] [address] Hematology/Oncology 12/09/22 Kenney Holder [address] [place] [address]6397[address] Orthopedics 12/30/22 Alexandra Baker [address] [place] [address] Rheumatology 10/19/22 Oscar Mireles MD [address] [place] [address] Pulmonary and Critical Care Medicine 01/27/23 Lesley Mayer, DRY YARD WORKER 69569 [facility] [address] [place] [address] Director Biologics Nurse Practitioner 11/09/22 Quality Technician Fiberglass Relationship Specialty Start Date End Date Dennis Marcial MD [address] [place] [address] PCP - General Family Medicine 08/29/18 Iftikhar Sandoval V [address] [facility] [place] [address] Referring Internal Medicine 02/14/20 Natacha Conklin MD [address] [facility] [place] [address] Physician Radiation Oncology 03/23/20 Charley Mcnally, VANDANA [address] [facility] [facility] [place] [address] Specialty Credit Rating Checker Hematology/Oncology 07/08/21 Shane Steward MD [address] [place] [address] Hematology/Oncology 12/09/22 Kenney Holder [address] [place] [address]78[address] Orthopedics 12/30/22 Alexandra Baker [address] [place] [address] Rheumatology 10/19/22 Oscar Mireles MD [address] [place] [address] Pulmonary and Critical Care Medicine 01/27/23 Lesley Mayer, DRY YARD WORKER 28249 [facility] [address] [place] [address] Director Biologics Nurse Practitioner 11/09/22 Quality Technician Fiberglass Relationship Specialty Start Date End Date Dennis Marcial MD [address] [place] [address] PCP - General Family Medicine 08/29/18 Iftikhar Sandoval V [address] [facility] [place] [address] Referring Internal Medicine 02/14/20 Natacha Conklin MD [address] [place] [address] [phone] Physician Radiation Oncology 03/23/20 Charley Mcnally, VANDANA [address] [address] Specialty Credit Rating Checker Hematology/Oncology 07/08/21 Shane Steward MD [address] [address] Hematology/Oncology 12/09/22 Kenney Holder [address] [place] [address] Orthopedics 12/30/22 Alexandra Baker [address] [place] [address] Rheumatology 10/19/22 Oscar Mireles MD [address] [facility] [address] Pulmonary and Critical Care Medicine 01/27/23 Lesley Mayer, DRY YARD WORKER 87400 [facility] [address] [place] [address] Director Biologics Nurse Practitioner 11/09/22 Quality Technician Fiberglass Relationship Specialty Start Date End Date Dennis Marcial MD [address] [place] [address] PCP - General Family Medicine 08/29/18 Iftikhar Sandoval V [address] [place] [address] Referring Internal Medicine 02/14/20 Natacha Conklin MD [address] [place] [address] Physician Radiation Oncology 03/23/20 Charley Mcnally, VANDANA [address] [place] [address] Specialty Credit Rating Checker Hematology/Oncology 07/08/21 Shane Steward MD [address] [place] [address] Hematology/Oncology 12/09/22 Kenney Holder [address] [place] [address] Orthopedics 12/30/22 Alexandra Baker [address] [place] [address] Rheumatology 10/19/22 Oscar Mireles MD [address] [place] [address] Pulmonary and Critical Care Medicine 01/27/23 Lesley Mayer, DRY YARD WORKER 99736 [facility] [address] [place] [address] Director Biologics Nurse Practitioner 11/09/22 Quality Technician Fiberglass Relationship Specialty Start Date End Date Dennis Marcial MD [address] [place] [address] PCP - General Family Medicine 08/29/18 Iftikhar Sandoval V [address] [facility] [place] [address] Referring Internal Medicine 02/14/20 Natacha Conklin MD [address] [place] [address] Physician Radiation Oncology 03/23/20 Charley Mcnally, VANDANA [address] [place] [address] Specialty Credit Rating Checker Hematology/Oncology 07/08/21 Shane Steward MD [address] [place] [address] Hematology/Oncology 12/09/22 Kenney Holder [address] [place] [address] Orthopedics 12/30/22 Alexandra Baker [address] [place] [address] Rheumatology 10/19/22 Oscar Mireles MD [address] [place] [address] Pulmonary and Critical Care Medicine 01/27/23 Lesley Mayer, DRY YARD WORKER [address] [place] [address] Director Biologics Nurse Practitioner 11/09/22 Quality Technician Fiberglass Relationship Specialty Start Date End Date Dennis Marcial MD [address] [place] [address] PCP - General Family Medicine 08/29/18 Iftikhar Sandoval V [address] [facility] [place] [address] Referring Internal Medicine 02/14/20 Natacha Conklin MD [address] [place] [address] Physician Radiation Oncology 03/23/20 Charley Mcnally, VANDANA [address] [place] [address] Specialty Credit Rating Checker Hematology/Oncology 07/08/21 Shane Steward MD [address] [place] [address] Hematology/Oncology 12/09/22 Kenney Holder [address] [place] [address] Orthopedics 12/30/22 Alexandra Baker [address] [place] [address] Rheumatology 10/19/22 Oscar Mireles MD [address] [place] [address] Pulmonary and Critical Care Medicine 01/27/23 Lesley Mayer, DRY YARD WORKER [address] [place] [address] Director Biologics Nurse Practitioner 11/09/22 Quality Technician Fiberglass Relationship Specialty Start Date End Date Dennis Marcial MD [address] [place] [address] PCP - General Family Medicine 08/29/18 Iftikhar Sandoval V [address] [place] [address]13[address]691[address]12[address] Referring Internal Medicine 02/14/20 Natacha Conklin MD [address] [place] [address] Physician Radiation Oncology 03/23/20 Charley Mcnally, VANDANA [address] [place] [address] Specialty Credit Rating Checker Hematology/Oncology 07/08/21 Shane Steward MD [address] [place] [address] Hematology/Oncology 12/09/22 Kenney Holder [address] [place] [address] Orthopedics 12/30/22 Alexandra Baker [address] [place] [address] Rheumatology 10/19/22 Oscar Mireles MD [address] [place] [address] Pulmonary and Critical Care Medicine 01/27/23 Lesley Mayer, DRY YARD WORKER [address] [place] [address] Director Biologics Nurse Practitioner 11/09/22 Quality Technician Fiberglass Relationship Specialty Start Date End Date Dennis Marcial MD [address] [place] [address] PCP - General Family Medicine 08/29/18 Iftikhar Sandoval V [address] [facility] [place] [address]12[address] Referring Internal Medicine 02/14/20 Natacha Conklin MD [address] [place] [address] Physician Radiation Oncology 03/23/20 Charley Mcnally, RN [address] [place] [address] Specialty Credit Rating Checker Hematology/Oncology 07/08/21 Shane Steward MD [address] [place] [address] Hematology/Oncology 12/09/22 Kenney Holder [address] [place] [address] Orthopedics 12/30/22 Alexandra Baker [address] [place] [address] Rheumatology 10/19/22 Oscar Mireles MD [address] [place] [address] Pulmonary and Critical Care Medicine 01/27/23 Lesley Mayer, DRY YARD WORKER [address] [facility] [address] [place] [address] Director Biologics Nurse Practitioner 11/09/22 Quality Technician Fiberglass Relationship Specialty Start Date End Date Dennis Marcial MD [address] [place] [address] PCP - General Family Medicine 08/29/18 Iftikhar Sandoval V [address] [place] [phone] Referring Internal Medicine 02/14/20 Natacha Conklin MD [address] [place] [address] Physician Radiation Oncology 03/23/20 Charley Mcnally, VANDANA [address] [place] [address] Specialty Credit Rating Checker Hematology/Oncology 07/08/21 Shane Steward MD [address] [place] [address] Hematology/Oncology 12/09/22 Kenney Holder [address] [place] [phone] Orthopedics 12/30/22 Alexandra Baker [address] [place] [phone] Rheumatology 10/19/22 Oscar Mireles MD [address] [place] [address] Pulmonary and Critical Care Medicine 01/27/23 Lesley Mayer, DRY YARD WORKER [address] [place] [address] [place] [address] Director Biologics Nurse Practitioner 11/09/22 Quality Technician Fiberglass Relationship Specialty Start Date End Date Dennis Marcial MD [address] [place] [address] PCP - General Family Medicine 08/29/18 Iftikhar Sandoval V [address] [facility] [place] [phone] Referring Internal Medicine 02/14/20 Natacha Conklin MD [address] [place] [address] Physician Radiation Oncology 03/23/20 Charley Mcnally, VANDANA [address] [place] [address] Specialty Credit Rating Checker Hematology/Oncology 07/08/21 Shane Steward MD [address] [place] [address] Hematology/Oncology 12/09/22 Kenney Holder [address] [place] [phone] Orthopedics 12/30/22 Alexandra Baker [address] [place] [phone] Rheumatology 10/19/22 Oscar Mireles MD [address] [place] [address] Pulmonary and Critical Care Medicine 01/27/23 Lesley Mayer, DRY YARD WORKER [address] [place] [address] [place] [address] Director Biologics Nurse Practitioner 11/09/22 Quality Technician Fiberglass Relationship Specialty Start Date End Date Dennis Marcial MD [address] [place], [place] [id number] PCP - General Family Medicine 08/29/18 Iftikhar Sandoval V [address] [place] [place] [phone] Referring Internal Medicine 02/14/20 Natacha Conklin MD [address] [place] [address] Physician Radiation Oncology 03/23/20 Charley Mcnally, RN [address] [place] [address] Specialty Credit Rating Checker Hematology/Oncology 07/08/21 Shane Steward MD [address] [place] [address] Hematology/Oncology 12/09/22 Kenney Holder [address] [place] [phone] Orthopedics 12/30/22 Alexandra Baker [address] [place] [address] Rheumatology 10/19/22 Oscar Mireles MD [address] [place], [place] [address] Pulmonary and Critical Care Medicine 01/27/23 Lesley Mayer, DRY YARD WORKER [address] [place] [address] [place] [address] Director Biologics Nurse Practitioner 11/09/22 Quality Technician Fiberglass Relationship Specialty Start Date End Date Dennis Marcial MD [address] [place] [address] PCP - General Family Medicine 08/29/18 Iftikhar Sandoval V [address] [facility] [place] [phone] Referring Internal Medicine 02/14/20 Natacha Conklin MD [address] [place] [address] Physician Radiation Oncology 03/23/20 Charley Mcnally, VANDANA [address] [place] [address] Specialty Credit Rating Checker Hematology/Oncology 07/08/21 Shane Steward MD [address] [place] [address] Hematology/Oncology 12/09/22 Kenney Holder [address] [place] [address] Orthopedics 12/30/22 Alexandra Baker [address] [place] [phone] Rheumatology 10/19/22 Oscar Mireles MD [address] [place] [address] Pulmonary and Critical Care Medicine 01/27/23 Lesley Mayer, DRY YARD WORKER [address] [place] [address] [place] [address] Director Biologics Nurse Practitioner 11/09/22 Quality Technician Fiberglass Relationship Specialty Start Date End Date Dennis Marcial MD [address] [place] [address] PCP - General Family Medicine 08/29/18 Iftikhar Sandoval V [address] [facility] [place] [phone] Referring Internal Medicine 02/14/20 Natacha Conklin MD [address] [place] [address] Physician Radiation Oncology 03/23/20 Charley Mcnally, RN [address] [place] [address] Specialty Credit Rating Checker Hematology/Oncology 07/08/21 Shane Steward MD [address] [place] [address] Hematology/Oncology 12/09/22 Kenney Holder [address] [facility] [address] [place] [phone] Orthopedics 12/30/22 Alexandra Baker [address] [facility] [address] [place] [phone] Rheumatology 10/19/22 Oscar Mireles MD [address] [place] [address] Pulmonary and Critical Care Medicine 01/27/23 Lesley Mayer, DRY YARD WORKER [address] [place] [address] [place] [address] Director Biologics Nurse Practitioner 11/09/22 Team Status: Active Member Role Status Dates Dr. Dennis Marcial MD Primary Care Provider Active Team Status: Inactive Member Role Status Dates Dr. Dennis Marcial MD Primary Care Provider Active Start: May 13, 2024 End: May 13, 2024 Dr. Alexandra Baker MD Attending Provider Active Start: May 13, 2024 End: May 13, 2024 Dr. Alexandra Baker MD Referring Provider Active Start: May 13, 2024 End: May 13, 2024 Team Status: Inactive Member Role Status Dates Dr. Dennis Marcial MD Primary Care Provider Active Start: June 08, 2024 End: June 08, 2024 Dr. Indu Anderson DO Attending Provider Active Start: June 08, 2024 End: June 08, 2024 Dr. Indu Anderson DO Emergency Provider Active Start: June 08, 2024 End: June 08, 2024 Team Status: Inactive Member Role Status Dates Dr. Dennis Marcial MD Primary Care Provider Active Start: July 22, 2024 End: July 22, 2024 Dr. Alexandra Baker MD Attending Provider Active Start: July 22, 2024 End: July 22, 2024 Dr. Alexandra Baker MD Referring Provider Active Start: July 22, 2024 End: July 22, 2024 Quality Technician Fiberglass Relationship Specialty Start Date End Date Dennis Marcial MD [address] [place] [address] PCP - General Family Medicine 08/29/18 Iftikhar Sandoval V [address] [place] [phone] Referring Internal Medicine 02/14/20 Natacha Conklin MD [address] [place], [place] [address] Physician Radiation Oncology 03/23/20 Charley Mcnally, VANDANA [address] [place], [place] [address] Specialty Credit Rating Checker Hematology/Oncology 07/08/21 Shane Steward MD [address] [place], [place] [id number] Hematology/Oncology 12/09/22 Kenney Holder [address] [place] [phone] Orthopedics 12/30/22 Alexandra Baker [address] [place] [address] Rheumatology 10/19/22 Oscar Mireles MD [address] [place] [address] Pulmonary and Critical Care Medicine 01/27/23 Lesley Mayer, DRY YARD WORKER [address] [facility] [address] [place] [address] Director Biologics Nurse Practitioner 11/09/22 Quality Technician Fiberglass Relationship Specialty Start Date End Date Dennis Marcial MD [address] [place] [address] PCP - General Family Medicine 08/29/18 Iftikhar Sandoval V [address] [address] Referring Internal Medicine 02/14/20 Natacha Conklin MD [address] [place] [address] Physician Radiation Oncology 03/23/20 Charley Mcnally, VANDANA [address] [place] [address] Specialty Credit Rating Checker Hematology/Oncology 07/08/21 Shane Steward MD [address] [place] [address] Hematology/Oncology 12/09/22 Kenney Holder [address] [place] [phone] Orthopedics 12/30/22 Alexandra Baker [address] [place] [address] Rheumatology 10/19/22 Oscar Mireles MD [address] [place] [address] Pulmonary and Critical Care Medicine 01/27/23 Lesley Mayer, DRY YARD WORKER [address] [facility] [address] [place] [address] Director Biologics Nurse Practitioner 11/09/22 Goals (unrecognized section and content) Goals may be documented in a n alternate sectionGoals may be documented in an alternate sectionGoals may be documented in an alternate sectionGoals may be documented in an alternate sectionGoals may be documented in an alternate section INFORMATION SOURCE (unrecogn ized section and content) DATE CREATED AUTHOR 11/23/2021 [facility] DATE CREATED AUTHOR AUTHOR'S ORGANIZ ATION 06/19/2023 [facility] DATE CREATED AUTHOR AUTHOR'S ORGANIZ ATION 07/20/2024 [facility] DATE CREATED AUTHOR AUTHOR'S ORGANIZ ATION 09/04/2024 [facility] DATE CREATED AUTHOR AUTHOR'S ORGANIZ ATION 10/09/2024 [facility] Inactive Administered Medications - up to 3 most recent administrations Administered Medications (un recognized section and content) Medication Order MAR Action Action Date Dose Rate Site fentaNYL 50 mcg/mL 25 mcg injection (SUBLIMAZE) 25 mcg, INTRAVENOUS, ONCE, 1 dose, On Mon06/19/23 at 1100 Given 06/19/2023 10:54 AM EST 25 mcg lactated ringers iv infusion 5-30 mL/hr, INTRAVENOUS, CONTINUOUS, Starting on Mon06/19/23 at 0900, Until Mon06/19/23 at 1021, Preprocedure Restarted 06/19/2023 9:58 AM EST New Bag/Syringe/Bottle 06/19/2023 8:54 AM EST 30 mL/hr 3 0 mL/hr FOR RECORDS PERTAINING TO PATIENTS WHO ARE OR HAVE BEEN ENROLLED IN A CHEMICAL DEPENDENCY/SUBSTANCEABUSE PROGRAM, SOME INFORMATION MAY BE OMITTED. This clinical summary was aggregated from multiple sources. Caution should be exercised in using it in the provision of clinical care. This summary normalizes information from multiple sources, and as a consequence, information in this document may materially change the coding, format and clinical context of patient data. In addition, data may be omitted in some cases. CLINICAL DECISIONS SHOULD BE BASED ON THE PRIMARY CLINICAL RECORDS. [employer] provides no warranty or guarantee of the accuracy or completeness of information in this document.
[2024-10-21 10:52] LABS: Absolute Neutrophil Count 2.2 X10^3/uL (2.0-7.7); Basophil# 0.04 X10^3/uL; Eosinophil# 0.22 X10^3/uL; Eosinophils% 5.2 % (0-5); Hematocrit 37.5 % (37-47); Hemoglobin 12.1 g/dL (12.0-15.0); Lymphocyte % 30.9 % (19-41); Mean Corp Hgb Conc 32.3 g/dL (32-36); Mean Corpuscular Hgb 30.5 pg (27.0-32.0); Mean Corpuscular Volume 94.5 fL (81-99); Mean Platelet Vol. 10.4 fl (6.2-12.0); Monocyte% 9.5 % (0-10); NRBC Flagged by Analyzer 0 % (0-5); Neutrophil # 2.24 X10^3/uL (2.7-7.7); Neutrophil % 53.2 % (47-70); Platelet Count 211 K/mm3 (150-450); RBC Distribution Width CV 13.1 % (11.6-14.6); RBC Distribution Width SD 45.9 fl (35.1-43.9); Red Blood Count 3.97 M/mm3 (4.2-5.4); White Blood Count 4.2 K/mm3 (4.4-11.0)
[2024-10-21 18:13] LABS: ALB/GLOB Ratio 1.3 RATIO (0.9-2.4); AST(SGOT) 32 U/L (<=31); Alanine Aminotransfer ALT/SGPT 15 U/L (<=34); Alkaline Phosphatase 126 U/L (35-104); Anion Gap 13 (5-15); BUN 21 mg/dL (4-19); BUN/Creat Ratio 18.4 RATIO (10-20); Calcium,Total 9.2 mg/dL (7.6-11.0); Carbon Dioxide 22.4 mmol/L (21.0-32.0); Chloride 105 mmol/L (98-108); Creatinine, Serum 1.13 mg/dL (0.70-1.20); EST Glomerular Filtration Rate 53 (>60); Globulin 3.1 g/dL (2.2-4.2); Glucose 78 mg/dL (70-99); Potassium 3.5 mmol/L (3.3-5.1); Sodium Level 140 mmol/L (133-145)
[2024-10-22 15:57] LABS: Total Bilirubin 0.24 mg/dL (0.00-1.30)
== END | disposition home or self-care (01) ==
LOC: MTLAB 07:03
PROVIDERS: PCP Family Medicine; Referring Provider Internal Medicine Rheumatology; Visit Provider Internal Medicine Rheumatology
DX: M06.4 Inflammatory polyarthropathy (principal); M79.7 Fibromyalgia; Z79.899 Other long term (current) drug therapy
CPT/HCPCS: 36415; 80053; 85025

== ENCOUNTER → 2025-01-15 | Outpatient (CLI) | payer MEDICARE, OTHER, SELFPAY ==
--- OUTSIDE RECORDS SUMMARY | 2025-01-15 07:14 | XMS RPT_ITS | CCD ---
Author Organization [facility] Care Team Providers Care Dam Attendant Name Role Phone Dennis Marcial MD Primary Care Provider Iftikhar Nieto Unavailable Rubin DE LOS SANTOS MD, Natacha Unavailable Anjel RN, Ira Unavailable Unavailable Uli ROSS, Charley Unavailable Fast DO, Nikki A Unavailable Knapic DO , Dr. Jacky Hernandez Unavailab le Romeo DE LOS SANTOS, Gene Nelson Unavailable [phone] Fast DO, Nikki A Unavailable Terry DE LOS SANTOS, Karson Griffith Unavailable Lesley Fritz Unavailable Unavailable Unavailable Unavailable Uli ROSS, Charley Unavailable Dr. Dennis Marcial Primary Care Provider Dr. Dennis Marcial Referring Provider Tacho LENS GENERATOR, LENS GENERATOR-C Latia Attending Provider Augusta Quinones Unavailable Unavailable Augusta Roberts RN Unavailable Unavailable Dennis Marcial MD Primary Care Provider Iftikhar Nieto Unavailable Rubin DE LOS SANTOS MD, Dagabby Unavailable Uli ROSS, Charley Unavailable Carolina Lambert MD Unavailable Dennis Marcial MD Primary Care Provider Charley Mcnally RN Unavailable Dennis Marcial MD Primary Care Provider Dennis Marcial MD Primary Care Provider Iftikhar Nieto Unavailable Rubin DE LOS SANTOS MD, Natacha Unavailable Charley Mcnally RN Unavailable Augusta Roberts RN Unavailable Unavailable Carolina Lambert MD Unavailable Carolina Lambert MD Unavailable Dr. Dennis Marcial Primary Care Provider Dr. Dennis Marcial Referring Provider Tacho LENS GENERATOR, LENS GENERATORJannyC Latia Attending Provider Dennis Marcial MD Primary Care Provider Shane Steward MD Unavailable Shane Steward MD Unavailable Uli ROSS, Charley Unavailable Kenney Holder Unavailable Alexandra Baker Unavailable Oscar Mireles MD Unavailable Leyla BALES, Lesley L Unavailable Augusta Roberts RN Unavailable Unavailable Shane Steward MD Unavailable Dennis Marcial MD Primary Care Provider Carolina Lambert MD Unavailable Rubin DE LOS SANTOS, Natacha Unavailable Hunter Posadas Attending Unavailable JAYNE WOODS Referring Unavailable DENNIS MARCIAL Primary Care Unavailab Dennis Dennis MD Primary Care Provider Dr. Dennis Marcial MD Primary Care Provider Dr. Alexandra Baker MD Attending Provider Dr. Alexandra Baker MD Referring Provider Dr. Indu Anderson DO Attending Provider [phone] Dr. Indu Anderson DO Emergency Provider Aggie DE LOS SANTOS, Dr. Collins Primary Care Provider Dr. Alexandra Baker MD Attending Provider Samuel DE LOS SANTOS, Dr. Morris Referring Provider DENNIS MARCIAL Attending Unavailab le AGGIE, DENNIS REY Primary Care Unavailab le AGGIE, DENNIS REY Referring Unavailab le AGGIE, DENNIS REY Primary Care Unavailab le AGGIE, DENNIS REY Attending Unavailab le AGGIE, DENNIS REY Primary Care Unavailab le AGGIE, DENNIS REY Attending Unavailab le AGGIE, DENNIS REY Primary Care Unavailab le AGGIE, DENNIS REY Attending Unavailab le AGGIE, DENNIS REY Primary Care Unavailab le AGGIE, DENNIS REY Attending Unavailab le AGGIE, DENNIS REY Primary Care Unavailab le Aggie Dr. Dennis DE LOS SANTOS Primary Care Provider Dr. Alexandra Baker MD Attending Provider Dr. Alexandra Baker MD Referring Provider Dr. Dennis Marcial MD Referring Provider Dr. Jacky Garcias MD Attending Provider Vellanclaudia, Alexandra Referring Unavailable Aggie, Dennis Primary Care Unavailable BogdanlanAlexandra taylor Attending Unavailable BogdanlanAlexandra taylor Referring Unavailable Alexandra Baker Attending Unavailable Aggie, Dennis Primary Care Unavailable Alexandra Baker Attending Unavailable BogdanlanAlexandra taylor Referring Unavailable Aggie, Dennis Primary Care Unavailable Jacky Garcias Attending Unavailable Aggie, Dennis Referring Unavailable Aggie, Dennis Primary Care Unavailable Tacho LENS GENERATOR, Latia Attending Unavailable Aggie, Dennis Primary Care Unavailable Aggie, Dennis Referring Unavailable Iwona Maza Attending Unavailable Aggie, Dennis Primary Care Unavailable Aggie, Dennis Referring Unavailable Tacho LENS GENERATOR, Latia Attending Unavailable Tacho LENS GENERATOR, Latia Referring Unavailable Aggie, Dennis Primary Care Unavailable Vellanki, Alexandra Attending Unavailable Vellanki, Alexandra Referring Unavailable Aggie, Dennis Primary Care Unavailable Aggie, Dennis Primary Care Unavailable Indu Anderson Attending Unavailable Jacky Garcias Unavailable [phone] DENNIS MARCIAL Primary Care Unavailab le AGGIE, DENNIS REY Primary Care Unavailab le FORDROYER WALLACE Referring Unavailable TIAM LÓPEZ Referring Unavailable AGGIE, DENNIS REY Primary Care Unavailab le AGGIE, DENNIS REY Primary Care Unavailab le AGGIE, DENNIS REY Referring Unavailab le AGGIE, DENNIS REY Primary Care Unavailab le AGGIE, DENNIS REY Primary Care Unavailab le CLICKRONALD Referring Unavailable RONALD GARRIDO Referring Unavailable AGGIE, DENNIS REY Primary Care Unavailab le CLICKRONALD Referring Unavailable HEMA, RONALD Nelson Attending Unavailable DENNIS MARCIAL Primary Care Unavailab le TIMA LÓPEZ Referring Unavailable AGGIE, DENNIS REY Primary Care Unavailab RADHA Geiger Attending Unavailable AGGIE, DENNIS ERY Primary Care Unavailab le CLICKRONALD Attending Unavailable DENNIS MARCIAL Primary Care Unavailab le AGGIE, DENNIS REY Referring Unavailab le AGGIE, DENNIS REY Primary Care Unavailab le AGGIE, DENNIS REY Primary Care Unavailab le CLICKRONALD Referring Unavailable AGGIE, DENNIS REY Primary Care Unavailab le AGGIE, DENNIS REY Primary Care Unavailab le CLICKRONALD Attending Unavailable SHANE STEWARD Referring Unavailable SHANE STEWARD Referring Unavailable AGGIE, DENNIS REY Primary Care Unavailab le FORDROYER Attending Unavailable DENNIS MARCIAL Referring Unavailab le AGGIE, DENNIS REY Primary Care Unavailab MICHAEL Colmenares Referring Unavailable AGGIE, DENNIS REY Primary Care Unavailab le AGGIE, DENNIS REY Primary Care Unavailab le FORDROYER Referring Unavailable SHANE STEWARD Referring Unavailable AGGIEDENNIS Primary Care Unavailab le ABRAMOVICHSHANE Referring Unavailable AGGIE, DENNIS REY Primary Care Unavailab le AGGIE, DENNIS REY Referring Unavailab le AGGIE, DENNIS REY Primary Care Unavailab le Allergies Allergy Classification Reported Allergen(s) Allergy Type Date of Onset Reaction(s) Facility (1 source) Raloxifene; Translations: [[facility] *ENDOCRINE AND METABOLIC AGENTS - MISC.*] Drug Allergy [facility] Work Phone: Comment on above: Vomiting Medications Current Medications Medication Drug Class(es) Dates Sig (Normalized) Sig (Original) [id number] 200 actuat albuterol 0.09 mg/actuat metered dose [...] (20 sources) Tricyclic Antidepressant Start: 021 End: 025 take 1 tablet by mouth once daily at bedtime amitriptyline (ELAVIL) 50 mg tablet Take 1 tablet by mouth daily at bedtime. 90 tablet 3 02/12/2024 Active Comment on above: Take 50 mg by mouth daily at bedtime. Take 1 tablet by bradley th daily at bedtime. amoxicillin 875 mg / clavulanate 125 mg oral tablet (2 sources) Penicillin-class Antibacterial Start: 025 End: 025 take 1 tablet by mouth twice daily [...] Inactive calcium carbonate 1250 mg oral tablet (13 sources) Start: 01-26-2014 take 1 tablet by mouth once daily calcium carbonate (OS-TESSY 500) 500 mg calcium (1,250 mg) tablet Take 1 tablet by mouth once daily. 01/26/2014 Active cephalexin 500 mg oral capsule (11 sources) Cephalosporin Antibacterial Start: 01-20-2024 End: 01-27-2024 [...] capsule Discontinued 500 mg PO Q12H 20 10 0 April 30, 2019 1:00am May 09, 2019 1:00am May 10, 2019 1:08am cholecalciferol 0.05 mg oral capsule (9 sources) Vitamin D Start: 12-19-2023 take 1 [...] on above: Take [address] [facility] before meals and at bedtime. doxycycline hyclate [...] 5 days. 10 tablet 06/20/2024 06/25/2024 Active ferrous sulfate 325 mg oral tablet (20 sources) Start: 11-26-2024 take 1 tablet by mouth once daily Ferrous Sulfate 325 mg (65 mg iron) tablet Active 325 mg PO daily November 26, 2024 12:00am Start: 01-31-2022 End: 12-19-2023 take 1 tablet by mouth once daily Ferrous Sulfate 325 mg (65 mg iron) tablet,delayed release (DR/EC) Discontinued 325 mg PO DAILY January 31, 2022 12:00am December 19, 2023 1:00pm End: 06-26-2024 take 2 tablets by mouth once daily ferrous sulfate (IRON ORAL) Take 2 tablets by mouth once daily. 06/26/2024 Discontinued take [address] [facility] once daily ferrous sulfate (IRON ORAL) Take [...] Take 65 mg by mouth once daily. gabapentin 300 mg oral capsule (7 sources) Anti-epileptic Agent Start: 2024 End: 2024 take 1 capsule by mouth twice daily gabapentin (NEURONTIN) 300 mg capsule Take 1 capsule by mouth two times a day for 180 days. 180 capsule 1 10/28/2024 04/26/2025 Active hydroxychloroquine sulfate 200 mg oral tablet (20 sources) Antimalarial, Antirheumatic Agent Start: 2023 take 1 tablet by mouth twice daily [...] once daily. leflunomide 10 mg oral tablet (10 sources) Antirheumatic Agent Start: 2024 take 0.5 [...] mg ta blet Discontinued 0 .ROUTE .COMPLEX 90 3 November 22, 2021 4:37pm January 31, 2022 9:46am TAKE ONE-HALF (1/2) TABLET TWICE A DAY Start: 02-17-2021 End: 12-05-2022 Metoprolol Tartrate 25 mg ta blet Discontinued 12.5 mg PO TWICE A DAY 90 3 November 06, 2022 8:20am December 05, 2022 9:18am Start: 02-17-2021 End: 12-05-2022 take 12.5 mg by mouth twice daily Metoprolol Tartrate Active 12.5 MG PO TWICE A DAY 90 December 05, 2022 8:18am Start: 02-17-2021 End: 02-17-2021 take 1 tablet by mouth twice daily Metoprolol Tartrate 25 mg tablet Discontinued 25 mg PO TWICE A DAY February 17, 2021 12:00am February 17, 2021 4:05pm Start: 05-27-2020 End: 07-03-2020 Metoprolol Tartrate 25 MG ta blet Discontinued 12.5 mg PO TWICE A DAY 90 0 May 27, 2020 1:00am July 03, 2020 [...] Comment on above: Take 4 capsules by [facility] twice daily for 5 days. nitrofurantoin, macrocrystals 25 mg / nitrofurantoin, monohydrate 75 mg oral capsule (2 sources) Nitrofuran Antibacterial Start: End: take 1 capsule by mouth twice daily nitrofurantoin monohydrate and macrocrystal (MACROBID) 100 mg capsule Indications: Burning with urination Take 1 capsule by mouth twice daily for 5 days. 10 capsule 0 01/25/2023 01/30/2023 Active Comment on above: Take 1 capsule by sc ut twice daily for 5 days. OXYGEN, HOME [...] Take 1 tablet by bradley once daily. generic ok predniSONE 20 mg oral tablet (20 sources) Start: 07-17-2024 End: 10-28-2024 take 3 tablets by mouth once daily, [...] po every day x4d. 21 tablet 07/17/2024 10/28/2024 Discontinued Start: 06-08-2024 End: 11-26-2024 take 2 tablets by mouth once daily as needed Prednisone 20 mg tablet Active 40 mg PO DAILY as needed November 26, 2024 2:05pm Start: 12-26-2023 End: 02-12-2024 predniSONE (DELTASONE) 20 [...] tablet (20 sources) Factor Xa Inhibitor Start: 1 End: take 1 tablet by mouth once daily XARELTO 20 mg tablet Take 1 tablet by mouth once daily. 11/12/2023 Active Comment on above: Take 20 mg by mouth once daily. Take 1 tablet by bradley th once daily. sertraline 100 mg oral tablet (20 sources) Serotonin Reuptake Inhibitor Start: 4 End: 5 take 1 tablet by mouth twice daily Sertraline (Zoloft) 50 mg tablet Discontinued 50 mg PO TWICE A DAY December 19, 2023 1:15pm November 26, 2024 2:04pm Start: 12-19-2023 End: 12-19-2023 take 1 tablet [...] sources) HMG-CoA Reductase Inhibitor Start: 4 End: 5 simvastatin (ZOCOR) 20 mg tablet Indications: Pure hypercholesterolemi a, unspecified TAKE 1 TABLET DAILY AT BEDTIME 90 tablet 3 11/17/2024 Active Comment on above: Take 20 mg by mouth daily at bedtime. Take 1 tablet by bradley th daily at bedtime. 30 actuat umeclidinium 0.0625 mg/actuat / vilanterol 0.025 mg/actuat dry powder inhaler (20 sources) Anticholinergic, beta2-Adrenergic Agonist Start: 2 End: 4 take 1 dose by inhalation once daily [...] / HYDROcodone bitartrate 5 mg oral tablet (9 sources) Opioid Agonist Start: 07-06-2017 End: 2018 Hydrocodone-Acetami nophen 1 TABLET tablet Discontinued 1 - 2 {tbl} PO EVERY 4 HOURS NEEDED as needed for Pain 12 3 0 July 06, 2017 1:00am 2018 9:53am Chest wall pain Other chest pain Start: 07-06-2017 End: 2018 take 1 tablet [...] 17-Jul-2013 Discontinued Comments: This order discontinued per [facility]. Comment on above: 750mg TID per pt. pr escribed by Dr. perrin This order discontin ued per [facility]. acetaminophen 325 mg / oxyCODONE hydrochloride 5 mg oral tablet (3 sources) Opioid Agonist Start: 06-08-2024 End: 11-26-2024 Oxycodone-Acetaminophen 5-325 mg tablet Discontinued 1 {tbl} PO EVERY 6 HOURS NEEDED as needed for Pain 12 3 0 June 08, 2024 November 26, 2024 2:06pm Acute pain of right shoulder Pain in right shoulder albuterol 0.833 mg/ml / ipratropium bromide 0.167 mg/ml inhalation solution (4 sources) Anticholinergic, beta2-Adrenergic Agonist Start: 06-20-2024 End: 06-20-2024 ipratropium-albuterol 3 mL nebulizer solution (DUONEB) Start: 06-20-2024 End: 06-20-2024 take 1 dose by inhalation once 3 mL, INHALATION, ONCE, 1 dose, On Marilyn 06/20/24 at 1230, PROTECT FROM LIGHT. The [...] mg tablet Discontinued 200 mg PO DAILY 90 November 10, 2020 11:48am April 28, 2021 1:55pm Pt is OUT of med, awaiting mail in RX Start: 05-27-2020 End: 07-03-2020 take 1 tablet by mouth three times daily, then take 1 tablet by mouth twice daily, then take 1 tablet by mouth once daily Amiodarone 200 MG tablet Discontinued 200 mg PO THREE TIMES A DAY 90 May 27, 2020 1:00am July 03, 2020 12:53pm Take 200 mg 3 times a day for 1 week, then take 200 mg twice a day for 2 weeks, then take 200 mg daily and stay on this dose. amoxicillin 500 mg oral capsule (7 sources) Penicillin-class Antibacterial Start: 12-17-2018 End: 12-29-2018 take 2 capsules by mouth twice daily Amoxicillin 500 mg capsule Discontinued 1000 mg PO TWICE A DAY 40 10 December 17, 2018 12:00am December 26, 2018 [...] budesonide 9 mg extended release oral tablet (13 sources) Corticosteroid Start: 04-20-2021 End: 01-31-2022 take [...] with food ciprofloxacin 500 mg oral tablet (8 sources) Quinolone Antimicrobial Start: 10-31-19 19 End: 04-30-20 19 take 1 tablet by mouth twice daily Ciprofloxacin Hcl 500 MG tablet Discontinued 500 mg PO TWICE A DAY 14 0 2018 12:00am April 30, 2019 2:18pm Start: [...] 90 days. clotrimazole 10 mg oral lozenge (7 sources) Azole Antifungal Start: 12-21-2020 End: 01-04-2021 Clotrimazole 10 mg lauri Discontinued 10 mg MUCOUS MEM THREE TIMES A DAY 42 14 0 December 21, 2020 12:00am January 03, 2021 [...] End: 11-11-2022 Denosumab Discontinued 60 MG SC .[id number] 2018 8:52am November 11, 2022 9:21am twice a year Start: 07-06-2017 End: 11-11-2022 Denosumab 60 mg/mL syringe D iscontinued 60 mg SC .[id number] 2018 9:52am November 11, 2022 10:21am bones twice a year Start: 07-06-2017 End: 2018 Denosumab Discontinued 60 [...] (1 source) Histamine-1 Receptor Antagonist Start: 09-29-19 07 End: 10-15-19 09 take 1 tablet by mouth once daily CLARINEX, 5MG (Oral Tablet) Tablet Daily for 0 days Refills: 0 Ordered: 28-Sep-2006 Lesley Fritz Start : 28-Sep-2006 End : 14-Oct-2008 Inactive desoximetasone 2.5 mg/ml topical cream (1 source) Corticosteroid Start: 10-15-19 End: 03-17-20 10 TOPICORT, 0.25% (External Cream) [...] DAILY 2018 9:52am December 19, 2023 1:00pm depression Start: 01-26-2014 End: 2018 take 60 mg by mouth once daily Duloxetine Active 60 MG PO DAILY 2018 8:52am End: 12-03-2021 take 1 capsule by mouth once daily DULoxetine (CYMBALTA) 60 mg capsule Take 60 mg by mouth once daily. 0 12/03/2021 Discontinued Comment on above: Take 60 mg by mouth once daily. Take 1 capsule by [facility] once daily. TAKE 1 CAPSULE ONCE DAILY. TAKE 1 CAPSULE ONCE DAILY ergocalciferol 1.25 mg oral capsule (2 sources) Provitamin D2 Compound Start: 6 take 1 capsule by mouth every week VITAMIN D (ERGOCALCIFEROL) , [id number] (Oral Capsule) 1 (one) Capsule once a week for 90 days Quantity: 12 {Capsule} Refills: 0 Ordered: 02-Sep-2015 Fast DO, Nikki A Fast DO, Nikki A Start : 02-Sep-2015 Active Start: 11-19-2008 End: 03-17-2010 take 1 capsule by mouth every week ERGOCALCIFEROL, [id number] (Oral Capsule) 1 (one) Capsule qweek for 0 days Quantity: 12 {Capsule} Refills: 0 Ordered: 17-Mar-2010 Lesley Fritz Start : 19-Nov-2008 End : 17-Mar-2010 Inactive 72 hr fentaNYL 0.025 mg/hr transdermal system (1 source) Opioid Agonist End: 02-03-2014 FENTANYL, 25MCG/HR (Transdermal Patch 72 Hour) 1 patch q 72hrs (25 MCG/HR) End : 03-Feb-2014 Discontinued ibandronic acid 150 mg oral tablet (1 source) Bisphosphonate Start: 09-04-2012 End: 09-04-2012 take 1 tablet by mouth every month BONIVA, 150MG (Oral Tablet) 1 Tablet monthly for 30 days Quantity: 1 {Tablet} Refills: 6 Ordered: 04-Sep-2012 Fast DO, Nikki A Fast DO, Nikki A Start : 04-Sep-2012 End : 04-Sep-2012 Discontinued Comments: Called to BMT at 1pm, 03/25/2011 Comment on above: Called to BMT at 1pm , 03/25/2011 ibuprofen 400 mg oral tablet (7 sources) Nonsteroidal Anti-inflammatory Drug Start: 01-26-2014 End: 06-29-2017 take 1 tablet by mouth every six hours as needed for pain Ibuprofen 400 MG tablet Discontinued 400 mg PO EVERY 6 HOURS as needed for Pain 30 0 January 26, 2014 10:36am June 29, 2017 12:50pm LORazepam 0.5 mg oral tablet (1 source) Benzodiazepine Start: 05-29-2014 End: 10-31-2014 take 1 tablet by mouth once at bedtime as needed LORAZEPAM, 0.5MG (Oral Tablet) 1 (one) Tablet Tablet q hs, prn for 10 days Quantity: 10 {Tablet} Refills: 0 Ordered: 31-Oct-2014 Misty Gonzales LPN Start : 29-May-2014 End : 31-Oct-2014 Discontinued magnesium oxide 400 mg oral tablet (7 sources) Start: 05-25-2020 End: 09-25-2020 take 1 tablet by mouth once daily Magnesium Oxide 400 MG tablet Discontinued 400 mg PO DAILY May 25, 2020 1:00am September 25, 2020 3:01pm supplement meloxicam 15 mg oral tablet (20 sources) Nonsteroidal Anti-inflammatory Drug Start: 01-26-2014 End: 11-11-2022 take 1 tablet by mouth once daily Meloxicam 15 mg tablet Discontinued 15 mg PO DAILY January 31, 2022 12:00am November 11, 2022 10:21am Comment on above: Take 15 mg by mouth once daily. mesalamine 1200 mg delayed release oral tablet (1 source) Aminosalicylate Start: 09-04-2012 End: 09-04-2012 take 2 tablets by mouth once daily LIALDA, 1.2GM (Oral Tablet Delayed Release) 2 (two) Tablet DR daily for 999 days Quantity: 60 {Tablet_DR} Refills: 6 Ordered: 04-Sep-2012 Fast DO, Nikki A Fast DO, Nikki A Start : 04-Sep-2012 End : 04-Sep-2012 Discontinued nabumetone 500 mg oral tablet (1 source) Nonsteroidal Anti-inflammatory Drug Start: 01-19-2009 End: 03-17-2010 NABUMETONE, 500MG (Oral Tablet) 1 tab Tablet bid, prn for 0 days Refills: 0 Ordered: 17-Mar-2010 Lesley Fritz Start : 19-Jan-2009 End : 17-Mar-2010 Inactive omeprazole 20 mg delayed release oral capsule (1 source) Proton Pump Inhibitor Start: 09-04-2012 End: 09-04-2012 OMEPRAZOLE, 20MG (Oral Capsule Delayed Release) [address] qd for 0 days Quantity: 30 {Capsule_DR} Refills: 5 Ordered: 04-Sep-2012 Fast DO, Nikki A Fast DO, Nikki A Start : 04-Sep-2012 End : 04-Sep-2012 Discontinued Comments: doesnt work as well as the protonix Comment on above: doesnt work as well as the protonix microencapsulated potassium chloride 20 meq extended release oral tablet (7 sources) Start: 05-25-2020 End: 09-25-2020 take 1 tablet by mouth once daily Potassium Chloride 20 MEQ tablet,ER particles/dipti ls Discontinued 20 meq PO DAILY May 25, 2020 1:00am September 25, 2020 3:01pm supplement pramipexole dihydrochloride 0.125 mg oral tablet (1 source) Nonergot Dopamine Agonist Start: 12-04-2013 End: 10-31-2014 take 1-2 tablets by mouth once daily at bedtime as needed PRAMIPEXOLE DIHYDROCHLORIDE, 0.125MG (Oral Tablet) 1-2 Tablet Tablet qhs prn for 0 days Quantity: 60 {Tablet} Refills: 0 Ordered: 31-Oct-2014 Misty Gonzales LPN Start : 04-Dec-2013 End : 31-Oct-2014 Discontinued Risedronate (15 sources) Start: 11-11-2022 End: 12-19-2023 take 4 [oz_av] by mouth every week in the morning Risedronate 35 mg tablet,delayed release (DR/EC) Discontinued 35 mg PO EVERY WEEK November 11, 2022 12:00am December 19, 2023 1:01pm administer in the morning immediately following breakfast with at least 4 oz of plain water Start: 11-11-2022 take 4 [oz_av] by mo uth every week in the morning Risedronate Active [...] LYING DOWN FOR 30 MINUTES 4 tablet 09/19/2022 10/12/2022 Discontinued (Side Effects) Start: 03-03-2011 [...] MOUTH OR LYING DOWN FOR 30 MINUTES rOPINIRole 1 mg oral tablet (20 sources) Nonergot Dopamine Agonist Start: 02-12-20 End: 03-27-20 25 take 1 tablet by mouth once daily at bedtime rOPINIRole (REQUIP) 1 mg tablet Take 1 tablet by mouth daily at bedtime. 90 tablet 3 04/01/2024 10/28/2024 Discontinued tinidazole 500 mg oral tablet (13 sources) Nitroimidazole Antimicrobial Start: 01-04-20 End: 03-06-20 take 4 tablets by mouth once daily at breakfast tinidazole (TINDAMAX) 500 mg tablet Take 4 tablets by mouth daily with breakfast. 4 tablet 0 01/03/2023 03/06/2023 Discontinued Comment on above: Take [address] [facility] daily with breakfast. tiZANidine 2 mg oral [...] twice daily . Take 1 tablet by [facility] twice daily. 24 hr tolterodine tartrate 4 mg extended release oral capsule (1 source) Cholinergic Muscarinic Antagonist Start: 01-20-20 End: 03-17-20 take 1 capsule by mouth once daily [...] 31-Aug-2015 Active Comments: Ninety Start: 01-26-2014 End: 02-04-2025 take 1 tablet by mouth every six hours as needed for pain traMADol (ULTRAM) 50 mg tablet Indications: Primary cancer of right lower lobe of lung (HCC) Take 1 tablet by mouth every 6 hours as needed for pain for up to 90 days. 90 tablet 10/28/2024 12/31/2024 Discontinued Comment on above: Take 50 mg [...] on above: Take 1 capsule by mo ut four times daily for 14 days. Take [...] sublingual zinc acetate 50 mg oral capsule (5 sources) Start: 3 End: 4 take 1 capsule by mouth once daily Zinc Acetate 50 mg (zinc) capsule Discontinued 50 mg PO DAILY November 11, 2022 12:00am December 19, 2023 1:01pm Problems Active Problems Problem Classification Problem Date Documented Da te Episodic/Chronic Abdominal pain (7 sources) Abdominal pain; Translations: [Unspecified abdominal pain] [...] 2 (mild)] 10-12-2021 Chronic Chronic kidney disease (1 source) Chronic kidney disease; Translations: [Stage 3 chronic kidney disease, unspecified whether stage 3a or 3b CKD (HCC)] Onset: 3 Chronic obstructive pulmonary disease and bronchiectasis (20 sources) Centriacinar emphysema; Translations: [Centrilobular emphysema] Onset: 2 Chronic Conditions associated with dizziness or vertigo (3 [...] Translations: [Other pancytopenia] Onset: 3 07-08-2022 Chronic Disorders of lipid metabolism (20 sources) [...] radius fracture, left] 08-31-2015 Episodic Gastrointestinal hemorrhage (9 sources) Hematochezia; Translations: [Melena] Episodic Genitourinary symptoms and ill-defined conditions (4 sources) Increased frequency of urination; Translations: [Urinary frequency] Resolved: 0 02-10-2015 Episodic Immunizations and screening for infectious disease (4 sources) Needs influenza immunization; Translations: [Need for prophylactic vaccination and inoculation against influenza] Onset: 5 Resolved: 2 02-10-2015 Episodic Intestinal obstruction without [...] and perimenopausal disorder] Resolved: 0 04-17-2015 Chronic Miscellaneous mental health disorders (1 source) Primary insomnia; Translations: [Primary insomnia] 10-29-2024 Chronic Mood disorders (20 sources) Recurrent major depression in remission; Translations: [Major depressive disorder, recurrent, in remission, unspecified] Onset: 7 06-27-2020 Chronic Comment on above: try changing it to h s andif not better and mood stillissue will achange meds and she dosnt wish to do counseling Mycoses (7 sources) Candidiasis of mouth; Translations: [Candidal stomatitis] [...] (5 sources) Drug therapy finding; Translations: [Other [employer] (current) drug therapy] 07-11-2021 Episodic Other aftercare (1 source) History of malignant neoplasm of thoracic cavity structure; Translations: [Encounter for follow-up examination after completed treatment for malignant neoplasm] 06-27-2024 Episodic Other aftercare (2 sources) Long-term current use of amiodarone; Translations: [Other superintendent [employer] (current) drug therapy] 07-11-2021 Episodic Other connective tissue disease (2 sources) [...] Episodic Other ear and sense organ disorders (8 sources) Impacted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 1.0 % Normal 0-1 [facility] Comment on above: Performed By: #### L 100.0100, L500.4050 #### [facility] [address] [place], [address] Eosinophils/100 WBC (Bld) 5.2 % High 0-5 [facility] Comment on above: Performed By: #### L 100.0100, L500.4050 #### [facility] [address] [place], [address] Erythrocyte distribution width (RBC) [Ratio] 13.1 % Normal 11.6-14.6 [facility] Comment on above: Performed By: #### L 100.0100, L500.4050 #### [facility] [address] [place], [address] Hematocrit (Bld) [Volume fraction] 37.5 % Normal 37-47 [facility] Comment on above: Performed By: #### L 100.0100, L500.4050 #### [facility] [address] [place], [address] Hemoglobin (Bld) [Mass/Vol] 12.1 g/dL Normal 12.0-15.0 [facility] Comment on above: Performed By: #### L 100.0100, L500.4050 #### [facility] [address] [place], [address] IG% 0.200 Normal 0.0-0.9 [facility] Comment on above: Result Comment: IG% - Immature Granulocytes (promyelocytes, myelocytes and metamyelocytes) > 1% indicates that a LEFT SHIFT is Present. Performed By: #### L 100.0100, L500.4050 #### [facility] [address] [place], [address] Lymphocytes/100 WBC (Bld) 30.9 % Normal 19-41 [facility] Comment on above: Performed By: #### L 100.0100, L500.4050 #### [facility] [address] [place], [address] MCH (RBC) [Entitic mass] 30.5 pg Normal 27.0-32.0 [facility] Comment on above: Performed By: #### L 100.0100, L500.4050 #### [facility] [address] [place], [address] MCHC (RBC) [Mass/Vol] 32.3 g/dL Normal 32-36 [facility] Comment on above: Performed By: #### L 100.0100, L500.4050 #### [facility] [address] [place], [address] MCV (RBC) [Entitic vol] 94.5 fL Normal 81-99 [facility] Comment on above: Performed By: #### L 100.0100, L500.4050 #### [facility] [address] [place], [address] Monocytes/100 WBC (Bld) 9.5 % Normal 0-10 [facility] Comment on above: Performed By: #### L 100.0100, L500.4050 #### [facility] [address] [place], [address] Neutrophils/100 WBC (Bld) 53.2 % Normal 47-70 [facility] Comment on above: Performed By: #### L 100.0100, L500.4050 #### [facility] [address] [place], [address] Nucleated RBC (Bld) [#/Vol] 0 10*3/uL Normal 0-5 [facility] Comment on above: Performed By: #### L 100.0100, L500.4050 #### [facility] [address] [place], [address] Platelet mean volume (Bld) [Entitic vol] 10.4 fL Normal 6.2-12.0 [facility] Comment on above: Performed By: #### L 100.0100, L500.4050 #### [facility] [address] [place], [address] Platelets (Bld) [#/Vol] 211 10*3/uL Normal 150-450 [facility] Comment on above: Performed By: #### L 100.0100, L500.4050 #### [facility] [address] [place], [address] RBC (Bld) [#/Vol] 3.97 10*6/uL Low 4.2-5.4 [facility] Comment on above: Performed By: #### L 100.0100, L500.4050 #### [facility] [address] [place], [address] RDW SD 45.9 fl High 35.1-43.9 [facility] Comment on above: Performed By: #### L 100.0100, L500.4050 #### [facility] [address] [place], [address] WBC (Bld) [#/Vol] 4.2 10*3/uL Low 4.4-11.0 [facility] Comment on above: Performed By: #### L 100.0100, L500.4050 #### [facility] [address] [place], [address] CMP (EXTERNAL)on 10-21-2024 Albumin [Mass/Vol] 4 g/dL [facility] Alk Phos Total 126 U/L Abnormal 45 - 117 U/L [facility] Bili Total 0.24 mg/dL 0.2 - 1 mg/dL [facility] GFR 53 mL/MIN [facility] GLOBULIN 3.1 [facility] Interpretation and review of laboratory results Abnormal [facility] Potassium [Moles/Vol] 3.5 mmol/L 3.5 - 5.1 mmol/L [facility] Protein [Mass/Vol] 7 g/dL [facility] Scanned into chart from outside source [facility] Carbon dioxide, total [Moles /volume] in Central venous bloodOrdered By: Alexandra Baker on 10-21-2024 CO2 [Moles/Vol] 22.4 mmol/L 21.0-32.0 [facility] Chloride assayOrdered By: Ryan Baker on 10-21-2024 Chloride [Moles/Vol] 105 mmol/L 98-108 [facility] Eosinophil percentageOrdered By: Alexandra Baker on 10-21-2024 Eosinophils/100 WBC (Bld) 5.2 % High 0-5 [facility] Erythrocyte distribution wid th ratioOrdered By: Alexandra Baker on 10-21-2024 Erythrocyte distribution width (RBC) [Ratio] 13.1 % 11.6-14.6 [facility] Erythrocyte distribution wid th standard deviationOrdered By: Alexandra Baker on 10-21-2024 Erythrocyte distribution width (RBC) [Ratio] 45.9 fl High 35.1-43.9 [facility] Glomerular filtration rate ( GFR) estimation/1.73 sq m using serum, plasma, or whole bOrdered By: Alexandra Baker on 10-21-2024 GFR/1.73 sq M.predicted among non-blacks MDRD (S/P/Bld) [Vol rate/Area] 53 mL/min/{1.73_m2} Low >60 [facility] Comment on above: mL/min/1.73m2 CKD-EP I Creatinine Equation (2020) Hematocrit Auto (Bld) [Volum e fraction]Ordered By: Alexandra Baker on 10-21-2024 Hematocrit (Bld) [Volume fraction] 37.5 % 37-47 [facility] Hemoglobin measurementOrdere d By: Alexandra Baker on 10-21-2024 Hemoglobin (Bld) [Mass/Vol] 12.1 g/dL 12.0-15.0 [facility] Immature granulocytes/100 WB C Auto (Bld)Ordered By: Alexandra Baker on 10-21-2024 Immature granulocytes/100 WBC (Bld) 0.200 % 0.0-0.9 [facility] Comment on above: IG% - Immature Granu locytes (promyelocytes, myelocytes and metamyelocytes) > 1% indicates that a LEFT SHIFT is Present. Laboratory - Chemistry and C hemistry - challengeOrdered By: Alexandra Baker on 10-21-2024 AST [Catalytic activity/Vol] 32 U/L <32 [facility] MCV (mean corpuscular volume ) determinationOrdered By: Alexandra Baker on 10-21-2024 MCV (RBC) [Entitic vol] 94.5 fL 81-99 [facility] Mean corpuscular hemoglobin (MCH) determinationOrdered By: Alexandra Baker on 10-21-2024 MCH (RBC) [Entitic mass] 30.5 pg 27.0-32.0 [facility] Mean corpuscular hemoglobin concentration (MCHC) determinationOrdered By: Alexandra Baker on 10-21-2024 MCHC (RBC) [Mass/Vol] 32.3 g/dL 32-36 [facility] Mean platelet volume determi nationOrdered By: Alexandra Baker on 10-21-2024 Platelet mean volume (Bld) [Entitic vol] 10.4 fL 6.2-12.0 [facility] Monocyte percentageOrdered B y: Alexandra Baker on 10-21-2024 Monocytes/100 WBC (Bld) 9.5 % 0-10 [facility] Neutrophil percentageOrdered By: Alexandra Baker on 10-21-2024 Neutrophils/100 WBC (Bld) 53.2 % 47-70 [facility] Nucleated red blood cell per centageOrdered By: Alexandra Baker on 10-21-2024 Nucleated RBC/100 WBC (Bld) [Ratio] 0 % 0-5 [facility] Platelet countOrdered By: Ryan Baker on 10-21-2024 Platelets (Bld) [#/Vol] 211 10*3/uL 150-450 [facility] Potassium measurement (mass/ volume)Ordered By: Alexandra Baker on 10-21-2024 Potassium (Unsp spec) [Mass/Vol] 3.5 mmol/L 3.3-5.1 [facility] RBC Auto (Bld) [#/Vol]Ordere d By: Alexandra Baker on 10-21-2024 RBC (Bld) [#/Vol] 3.97 10*6/uL Low 4.2-5.4 [facility] Serum creatinine measurement (mass/volume)Ordered By: Alexandra Baker on 10-21-2024 Creatinine [Mass/Vol] 1.13 mg/dL 0.70-1.20 [facility] Serum globulin measurementOr dered By: Alexandra Baker on 10-21-2024 Globulin (S) [Mass/Vol] 3.1 g/dL 2.2-4.2 [facility] Serum glucose measurement (m ass/volume)Ordered By: Alexandra Baker on 10-21-2024 Glucose [Mass/Vol] 78 mg/dL 70-99 [facility] Serum or plasma alanine coffey otransferase (ALT) measurementOrdered By: Alexandra Baker on 10-21-2024 ALT [Catalytic activity/Vol] 15 U/L <35 [facility] Serum or plasma albumin dave urement (mass/volume)Ordered By: Alexandra Baker on 10-21-2024 Albumin [Mass/Vol] 4.0 g/dL 3.4-4.8 [facility] Serum or plasma albumin/glob ulin mass ratioOrdered By: Alexandra Baker on 10-21-2024 Albumin/Globulin [Mass ratio] 1.3 {ratio} 0.9-2.4 [facility] Serum or plasma alkaline tim sphatase measurementOrdered By: Alexandra Baker on 10-21-2024 ALP [Catalytic activity/Vol] 126 U/L High 35-104 [facility] Serum or plasma calcium dave urement (mass/volume)Ordered By: Alexandra Baker on 10-21-2024 Calcium [Mass/Vol] 9.2 mg/dL 7.6-11.0 [facility] Serum or plasma urea nitroge n measurement (mass/volume)Ordered By: Alexandra Baker on 10-21-2024 Urea nitrogen [Mass/Vol] 21 mg/dL High 4-19 [facility] Sodium levelOrdered By: Sofia Baker on 10-21-2024 Sodium [Moles/Vol] 140 mmol/L 133-145 [facility] Total proteinOrdered By: Daniel Bkaer on 10-21-2024 Protein [Mass/Vol] 7.0 g/dL 5.9-8.4 [facility] White blood cell (WBC) count Ordered By: Alexandra Baker on 10-21-2024 WBC (Bld) [#/Vol] 4.2 10*3/uL Low 4.4-11.0 [facility] CNOVon 10-08-2024 CNOV Office Visit (PULMWS ) KATRINA SERRANO ([id number]) 1955 F Date Time Provider Department 10/08/24 10:30 AM RONALD GARRIDO PULMARIA C During your visit today, we recorded the following information about you: Pulse Blood pressure Weight 76/minute 100/64 89.8 kg Ronald Garrido, FACILITY EXAMINER.QUALITY ENGINEER MEDICAL DEVICE 10/08/2024 2:55 PM Addendum Pulmonary Medicine Patients name: Katrina Henson PCP: Dennis Marcial MD Recording using ambient [employer] software for draft documentation of the visit was discussed with the patient/authorized physician representative; all questions welcomed and answered. Patient/authorized physician representative agreed to proceed CC: cough HPI: Katrina Serrano is a 68 year old female former [id number] smoker, quitting in 1999 with PMH significant [...] and av (more content not included)... [facility] Absolute lymphocyte countOrd ered By: Alexandra Baker on 08-29-2024 Lymphocytes Auto (Unsp spec) [#/Vol] 0.81 10*3/uL Low 0.83-4.51 [facility] Absolute neutrophil countOrd ered By: Alexandra Baker on 08-29-2024 Neutrophils (Bld) [#/Vol] 2.8 10*3/uL 2.0-7.7 [facility] Anion gap in Serum or Plasma Ordered By: Alexandra Baker on 08-29-2024 Anion gap [Moles/Vol] 11 mmol/L 5-15 [facility] Automated lymphocyte count a s percentage of total leukocytesOrdered By: Alexandra Baker on 08-29-2024 Lymphocytes/100 WBC Auto (Unsp spec) 18.7 % Low 19-41 [facility] BUN/creatinine ratioOrdered By: [facility] Samuel on 08-29-2024 Urea nitrogen/Creatinine [Mass ratio] 13.3 mg/mg 10-20 [facility] Basophil percentageOrdered B y: Alexandra Baker on 08-29-2024 Basophils/100 WBC (Bld) 0.9 % 0-1 [facility] Bilirubin, totalOrdered By: Alexandrabelkis Baker on 08-29-2024 Bilirubin [Mass/Vol] 0.34 mg/dL 0.00-1.30 [facility] CBC W/Diff, Automatedon 08-07 Absolute Lymph 0.81 X10 3/uL Low 0.83-4.51 [facility] Comment on above: Performed By: #### L 500.4050, L100.0100 #### [facility] [address] [place], [address] Absolute Neut 2.8 X10 3/uL Normal 2.0-7.7 [facility] Comment on above: Performed By: #### L 500.4050, L100.0100 #### [facility] [address] [facility] [place], [address] Basophils/100 WBC (Bld) 0.9 % Normal 0-1 [facility] Comment on above: Performed By: #### L 500.4050, L100.0100 #### [facility] [address] [place], [address] Eosinophils/100 WBC (Bld) 4.6 % Normal 0-5 [facility] Comment on above: Performed By: #### L 500.4050, L100.0100 #### [facility] [address] [place], [address] Erythrocyte distribution width (RBC) [Ratio] 13.9 % Normal 11.6-14.6 [facility] Comment on above: Performed By: #### L 500.4050, L100.0100 #### [facility] [address] [place], [address] Hematocrit (Bld) [Volume fraction] 34.7 % Low 37-47 [facility] Comment on above: Performed By: #### L 500.4050, L100.0100 #### [facility] [address] [place], [address] Hemoglobin (Bld) [Mass/Vol] 11.1 g/dL Low 12.0-15.0 [facility] Comment on above: Performed By: #### L 500.4050, L100.0100 #### [facility] [address] [place], [address] IG% 0.500 Normal 0.0-0.9 [facility] Comment on above: Result Comment: IG% - Immature Granulocytes (promyelocytes, myelocytes and metamyelocytes) > 1% indicates that a LEFT SHIFT is Present. Performed By: #### L 500.4050, L100.0100 #### [facility] [address] [place], [address] Lymphocytes/100 WBC (Bld) 18.7 % Low 19-41 [facility] Comment on above: Performed By: #### L 500.4050, L100.0100 #### [facility] [address] [place], [address] MCH (RBC) [Entitic mass] 30.8 pg Normal 27.0-32.0 [facility] Comment on above: Performed By: #### L 500.4050, L100.0100 #### [facility] [address] [place], [address] MCHC (RBC) [Mass/Vol] 32.0 g/dL Normal 32-36 [facility] Comment on above: Performed By: #### L 500.4050, L100.0100 #### [facility] [address] [place], [address] MCV (RBC) [Entitic vol] 96.4 fL Normal 81-99 [facility] Comment on above: Performed By: #### L 500.4050, L100.0100 #### [facility] [address] [place], [address] Monocytes/100 WBC (Bld) 9.9 % Normal 0-10 [facility] Comment on above: Performed By: #### L 500.4050, L100.0100 #### [facility] [address] [place], [address] Neutrophils/100 WBC (Bld) 65.4 % Normal 47-70 [facility] Comment on above: Performed By: #### L 500.4050, L100.0100 #### [facility] [address] [place], [address] Nucleated RBC (Bld) [#/Vol] 0 10*3/uL Normal 0-5 [facility] Comment on above: Performed By: #### L 500.4050, L100.0100 #### [facility] [address] [place], [address] Platelet mean volume (Bld) [Entitic vol] 10.0 fL Normal 6.2-12.0 [facility] Comment on above: Performed By: #### L 500.4050, L100.0100 #### [facility] [address] [place], [address] Platelets (Bld) [#/Vol] 273 10*3/uL Normal 150-450 [facility] Comment on above: Performed By: #### L 500.4050, L100.0100 #### [facility] [address] [place], [address] RBC (Bld) [#/Vol] 3.60 10*6/uL Low 4.2-5.4 [facility] Comment on above: Performed By: #### L 500.4050, L100.0100 #### [facility] [address] [place], [address] RDW SD 49.0 fl High 35.1-43.9 [facility] Comment on above: Performed By: #### L 500.4050, L100.0100 #### [facility] [address] [place], [address] WBC (Bld) [#/Vol] 4.3 10*3/uL Low 4.4-11.0 [facility] Comment on above: Performed By: #### L 500.4050, L100.0100 #### [facility] [address] [place], [address] Carbon dioxide, total [Moles /volume] in Central venous bloodOrdered By: Alexandra Baker on 08-29-2024 CO2 [Moles/Vol] 25.6 mmol/L 21.0-32.0 [facility] Chloride assayOrdered By: Ryan Baker on 08-29-2024 Chloride [Moles/Vol] 104 mmol/L 98-108 [facility] Comprehensive Metabolic Prof ilon 08-29-2024 Albumin [Mass/Vol] 3.9 g/dL Normal 3.4-4.8 [facility] Comment on above: Performed By: #### L 500.4050, L100.0100 #### [facility] [address] [place], [address] Albumin/Globulin [Mass ratio] 1.2 {ratio} Normal 0.9-2.4 [facility] Comment on above: Performed By: #### L 500.4050, L100.0100 #### [facility] [address] [place], [address] ALK PHOS 110 U/L High 35-104 [facility] Comment on above: Performed By: #### L 500.4050, L100.0100 #### [facility] [address] [place], [address] ALT [Catalytic activity/Vol] 15 U/L Normal <=34 [facility] Comment on above: Performed By: #### L 500.4050, L100.0100 #### [facility] [address] [place], [address] AST [Catalytic activity/Vol] 25 U/L Normal <=31 [facility] Comment on above: Performed By: #### L 500.4050, L100.0100 #### [facility] [address] [place], [address] Bilirubin [Mass/Vol] 0.34 mg/dL Normal 0.00-1.30 [facility] Comment on above: Performed By: #### L 500.4050, L100.0100 #### [facility] [address] [place], [address] BUN/CRE 13.3 RATIO Normal 10-20 [facility] Comment on above: Performed By: #### L 500.4050, L100.0100 #### [facility] [address] [place], [address] Calcium [Mass/Vol] 9.5 mg/dL Normal 7.6-11.0 [facility] Comment on above: Performed By: #### L 500.4050, L100.0100 #### [facility] [address] [place], [address] Chloride [Moles/Vol] 104 mmol/L Normal 98-108 [facility] Comment on above: Performed By: #### L 500.4050, L100.0100 #### [facility] [address] [place], [address] CO2 [Moles/Vol] 25.6 mmol/L Normal 21.0-32.0 [facility] Comment on above: Performed By: #### L 500.4050, L100.0100 #### [facility] [address] [place], [address] Creatinine [Mass/Vol] 1.22 mg/dL High 0.70-1.20 [facility] Comment on above: Performed By: #### L 500.4050, L100.0100 #### [facility] [address] [place], [address] GAP 11 Normal 5-15 [facility] Comment on above: Performed By: #### L 500.4050, L100.0100 #### [facility] [address] [place], [address] GFR/1.73 sq M.predicted among non-blacks MDRD (S/P/Bld) [Vol rate/Area] 48 mL/min/{1.73_m2} Low >60 [facility] Comment on above: Result Comment: mL/m in/1.73m2 CKD-EPI Creatinine Equation (2020) Performed By: #### L 500.4050, L100.0100 #### [facility] [address] [place], [address] Globulin (S) [Mass/Vol] 3.2 g/dL Normal 2.2-4.2 [facility] Comment on above: Performed By: #### L 500.4050, L100.0100 #### [facility] [address] [place], [address] Glucose [Mass/Vol] 84 mg/dL Normal 70-99 [facility] Comment on above: Performed By: #### L 500.4050, L100.0100 #### [facility] [address] [place], [address] Potassium [Moles/Vol] 4.0 mmol/L Normal 3.3-5.1 [facility] Comment on above: Performed By: #### L 500.4050, L100.0100 #### [facility] [address] [place], [address] Sodium [Moles/Vol] 141 mmol/L Normal 133-145 [facility] Comment on above: Performed By: #### L 500.4050, L100.0100 #### [facility] [address] [place], [address] T PROT 7.1 g/dL Normal 5.9-8.4 [facility] Comment on above: Performed By: #### L 500.4050, L100.0100 #### [facility] [address] [place], [address] Urea nitrogen [Mass/Vol] 16 mg/dL Normal 4-19 [facility] Comment on above: Performed By: #### L 500.4050, L100.0100 #### [facility] [address] [place], [address] Eosinophil percentageOrdered By: Alexandra Baker on 08-29-2024 Eosinophils/100 WBC (Bld) 4.6 % 0-5 [facility] Erythrocyte distribution wid th ratioOrdered By: Alexandra Baker on 08-29-2024 Erythrocyte distribution width (RBC) [Ratio] 13.9 % 11.6-14.6 [facility] Erythrocyte distribution wid th standard deviationOrdered By: Alexandra Baker on 08-29-2024 Erythrocyte distribution width (RBC) [Ratio] 49.0 fl High 35.1-43.9 [facility] Glomerular filtration rate ( GFR) estimation/1.73 sq m using serum, plasma, or whole bOrdered By: Alexandra Baker on 08-29-2024 GFR/1.73 sq M.predicted among non-blacks MDRD (S/P/Bld) [Vol rate/Area] 48 mL/min/{1.73_m2} Low >60 [facility] Comment on above: mL/min/1.73m2 CKD-EP I Creatinine Equation (2020) Hematocrit Auto (Bld) [Volum e fraction]Ordered By: Alexandra Baker on 08-29-2024 Hematocrit (Bld) [Volume fraction] 34.7 % Low 37-47 [facility] Hemoglobin measurementOrdere d By: Alexandra Baker on 08-29-2024 Hemoglobin (Bld) [Mass/Vol] 11.1 g/dL Low 12.0-15.0 [facility] Immature granulocytes/100 WB C Auto (Bld)Ordered By: Alexandra Baker on 08-29-2024 Immature granulocytes/100 WBC (Bld) 0.500 % 0.0-0.9 [facility] Comment on above: IG% - Immature Granu locytes (promyelocytes, myelocytes and metamyelocytes) > 1% indicates that a LEFT SHIFT is Present. Laboratory - Chemistry and C hemistry - challengeOrdered By: Alexandra Baker on 08-29-2024 AST [Catalytic activity/Vol] 25 U/L <32 [facility] MCV (mean corpuscular volume ) determinationOrdered By: Alexandra Baker on 08-29-2024 MCV (RBC) [Entitic vol] 96.4 fL 81-99 [facility] Mean corpuscular hemoglobin (MCH) determinationOrdered By: Alexandra Baker on 08-29-2024 MCH (RBC) [Entitic mass] 30.8 pg 27.0-32.0 [facility] Mean corpuscular hemoglobin concentration (MCHC) determinationOrdered By: Alexandra Baker on 08-29-2024 MCHC (RBC) [Mass/Vol] 32.0 g/dL 32-36 [facility] Mean platelet volume determi nationOrdered By: Alexandra Baker on 08-29-2024 Platelet mean volume (Bld) [Entitic vol] 10.0 fL 6.2-12.0 [facility] Monocyte percentageOrdered B y: Alexandra Baker on 08-29-2024 Monocytes/100 WBC (Bld) 9.9 % 0-10 [facility] Neutrophil percentageOrdered By: Alexandra Baker on 08-29-2024 Neutrophils/100 WBC (Bld) 65.4 % 47-70 [facility] Nucleated red blood cell per centageOrdered By: Alexandra Baker on 08-29-2024 Nucleated RBC/100 WBC (Bld) [Ratio] 0 % 0-5 [facility] Platelet countOrdered By: Ryan Baker on 08-29-2024 Platelets (Bld) [#/Vol] 273 10*3/uL 150-450 [facility] Potassium measurement (mass/ volume)Ordered By: Alexandra Baker on 08-29-2024 Potassium (Unsp spec) [Mass/Vol] 4.0 mmol/L 3.3-5.1 [facility] RBC Auto (Bld) [#/Vol]Ordere d By: Alexandra Baker on 08-29-2024 RBC (Bld) [#/Vol] 3.60 10*6/uL Low 4.2-5.4 [facility] Serum creatinine measurement (mass/volume)Ordered By: Alexandra Baker on 08-29-2024 Creatinine [Mass/Vol] 1.22 mg/dL High 0.70-1.20 [facility] Serum globulin measurementOr dered By: Alexandra Baker on 08-29-2024 Globulin (S) [Mass/Vol] 3.2 g/dL 2.2-4.2 [facility] Serum glucose measurement (m ass/volume)Ordered By: Alexandra Baker on 08-29-2024 Glucose [Mass/Vol] 84 mg/dL 70-99 [facility] Serum or plasma alanine coffey otransferase (ALT) measurementOrdered By: Alexandra Baker on 08-29-2024 ALT [Catalytic activity/Vol] 15 U/L <35 [facility] Serum or plasma albumin dave urement (mass/volume)Ordered By: Alexandra Baker on 08-29-2024 Albumin [Mass/Vol] 3.9 g/dL 3.4-4.8 [facility] Serum or plasma albumin/glob ulin mass ratioOrdered By: Alexandra Baker on 08-29-2024 Albumin/Globulin [Mass ratio] 1.2 {ratio} 0.9-2.4 [facility] Serum or plasma alkaline tim sphatase measurementOrdered By: Alexandra Baker on 08-29-2024 ALP [Catalytic activity/Vol] 110 U/L High 35-104 [facility] Serum or plasma calcium dave urement (mass/volume)Ordered By: Alexandra Baker on 08-29-2024 Calcium [Mass/Vol] 9.5 mg/dL 7.6-11.0 [facility] Serum or plasma urea nitroge n measurement (mass/volume)Ordered By: Alexandra Baker on 08-29-2024 Urea nitrogen [Mass/Vol] 16 mg/dL 4-19 [facility] Sodium levelOrdered By: Sofia Baker on 08-29-2024 Sodium [Moles/Vol] 141 mmol/L 133-145 [facility] Total proteinOrdered By: Daniel Baker on 08-29-2024 Protein [Mass/Vol] 7.1 g/dL 5.9-8.4 [facility] White blood cell (WBC) count Ordered By: Alexandra Baker on 08-29-2024 WBC (Bld) [#/Vol] 4.3 10*3/uL Low 4.4-11.0 [facility] CNOVon 08-07-2024 CNOV Office Visit (PULMWS ) MAGGIEKATRINA Coles ([id number]) 1955 F Date Time Provider Department 08/07/24 10:30 AM RONALD GARRIDO PULMWS During your visit today, we recorded the following information about you: Pulse Respiration Blood pressure Weight 68/minute 18/minute 108/68 89.4 kg Ronald Garrido APRN.QUALITY ENGINEER MEDICAL DEVICE 08/07/2024 12:32 PM Signed Pulmonary Medicine Patients name: Katrina Henson PCP: Dennis Marcial MD CC: follow-up COPD HPI: Katrinacolin Serrano is a 68 year old female former 21-skbe-nvvn smoker, quitting in 1999 with PMH significant [...] She presents today for testing and follow-up. [facility] 06/28/[address] suggesting Pneumonia. Was treated by her PCP with Augmentin and Doxycycline with the doxycycline coarse extended at her [facility]. Follow-up chest xray with no new [...] 07/05/2024 1 (more content not included)... Normal [facility] LUNG DIFFUSION CAPACITY (SAUD O)on 08-07-2024 LUNG DIFFUSION CAPACITY (DLCO) [facility] [address] [place] [address] Test Date: 2024-08-07 Pat Name: KATRINA SERRANO Department: Room: Gender: Female Communication Center Operator: : 1955 Requested By: Order Number: [id number] Reading MD: Oscar Mireles MD Interpretive Statements [...] 16:12:32 EDT by Oscar Mireles MD ID: [id number] Name: KATRINA SERRANO Race: White Ht: 64.53 [...] FIF50 2.49 FEF50/FIF50 0.93 90-100 FIVC 2.20 VJN02-42 1.50 0.91 1.94 3.39 77 -0.62 ExpiredTime [...] obtained from [facility] on 07-22-24. Normal [facility] LUNG VOLUMESon 08-07-2024 LUNG VOLUMES [facility] [address] [facility], [place] [address] Test Date: 2024-08-07 Pat Name: KATRINA SERRANO Department: Room: Gender: Female Communication Center Operator: : 1955 Requested By: Order Number: [id number] Reading MD: Oscar Mireles MD Interpretive Statements [...] DLCO is hemoglobin corrected. Hemoglobin obtained from [facility] on 07-22-24. IMPRESSION: Spirometry indicates no [...] 16:12:32 EDT by Oscar Mireles MD ID: [id number] Name: KATRINA SERRANO Race: White Ht: 64.53 [...] FIF50 2.49 FEF50/FIF50 0.93 90-100 FIVC 2.20 WDK75-26 1.50 0.91 1.94 3.39 77 -0.62 ExpiredTime [...] obtained from [facility] on 07-22-24. 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: : 1955 Requested By: Order Number: [id number] Reading MD: Oscar Mireles MD Interpretive Statements [...] 16:12:32 EDT by Oscar Mireles MD ID: [id number] Name: KATRINA SERRANO Race: White Ht: 64.53 [...] FIF50 2.49 FEF50/FIF50 0.93 90-100 FIVC 2.20 DWW35-56 1.50 0.91 1.94 3.39 77 -0.62 ExpiredTime [...] 79 % FEV1/FVC_LLN (%) : 66 % ZHA85_KLH (L/S) : 6.37 L/S ODF22_VJC (L/S) : 0.38 L/S YIC75_LCEX (L/S) : 0.49 L/S RZE12_INB (L/S) : 0.18 L/S NYQ00_WZV (L/S) : 1.26 L/S DDS76-08%_PRE (L/S) : 1.50 L/S HVP85-18%_PRED (L/S) : 1.94 L/S BDJ79-25%_LLN (L/S) : 0.91 L/S PEF_PRE (L/S) : [...] ml/min/mmHg DLCO/VACOR (ML/MIN/MMHG/L) : 0.03 ml/min/mmHg/L Normal [facility] Absolute lymphocyte counton 07-22-2024 Lymphocytes (Bld) [#/Vol] 2.13 10*3/uL 0.83-4.51 [facility] Absolute lymphocyte countOrd ered By: Alexandra Baker on 07-22-2024 Lymphocytes Auto (Unsp spec) [#/Vol] 2.13 10*3/uL 0.83-4.51 [facility] Absolute neutrophil countOrd ered By: Alexandra Baker on 07-22-2024 Neutrophils (Bld) [#/Vol] 3.8 10*3/uL 2.0-7.7 [facility] Anion gap in Serum or Plasma Ordered By: Alexandra Baker on 07-22-2024 Anion gap [Moles/Vol] 10 mmol/L 5-15 [facility] Automated blood erythrocyte counton 07-22-2024 RBC (Bld) [#/Vol] 3.52 10*6/uL Low 4.2-5.4 [facility] Comment on above: Performed By: #### L 100.0100, L500.4050 ####[facility] [address] [place], [address] Automated blood hematocrit ( percentage)on 07-22-2024 Hematocrit (Bld) [Volume fraction] 33.6 % Low 37-47 [facility] Comment on above: Performed By: #### L 100.0100, L500.4050 ####[facility] [address] [place], [address] Automated lymphocyte count a s percentage of total leukocyteson 07-22-2024 Lymphocytes/100 WBC (Bld) 32.4 % Normal 19-41 [facility] Comment on above: Performed By: #### L 100.0100, L500.4050 ####[facility] [address] [place], [address] Automated lymphocyte count a s percentage of total leukocytesOrdered By: Alexandra Baker on 07-22-2024 Lymphocytes/100 WBC Auto (Unsp spec) 32.4 % - [facility] BUN/creatinine ratioon 07-22 Urea nitrogen/Creatinine [Mass ratio] 21.9 mg/mg High 10-20 [facility] Basophil percentageon 2024 Basophils/100 WBC (Bld) 0.3 % Normal 0-1 [facility] Comment on above: Performed By: #### L 100.0100, L500.4050 ####[facility] [address] [place], [address] Bilirubin, totalOrdered By: Alexandra Baker on 07-22-2024 Bilirubin [Mass/Vol] 0.18 mg/dL 0.00-1.30 [facility] CBC W Auto Differential pane l (Bld)on 07-22-2024 Immature Gran % 0.5 % [facility] MCHC 31.8 % Abnormal 32 - 36 % [facility] NEUT ABS 3.8 K/uL 1.9 - 8 K/uL [facility] Platelet mean volume (Bld) [Entitic vol] 10 % 7.3 - 11.1 % [facility] RDW-SD 47.4 [facility] Scanned in chart fro m outside source [facility] CBC W/Diff, Automatedon 07-06 Absolute Lymph 2.13 X10 3/uL Normal 0.83-4.51 [facility] Comment on above: Performed By: #### L 100.0100, L500.4050 ####[facility] [address] [place], [address] Absolute Neut 3.8 X10 3/uL Normal 2.0-7.7 [facility] Comment on above: Performed By: #### L 100.0100, L500.4050 ####[facility] [address] [place], [address] IG% 0.500 Normal 0.0-0.9 [facility] Comment on above: Result Comment: IG% - Immature Granulocytes (promyelocytes, myelocytes and metamyelocytes) > 1% indicates that a LEFT SHIFT is Present. Performed By: #### L 100.0100, L500.4050 ####[facility] [address] [place], [address] MCHC (RBC) [Mass/Vol] 31.8 g/dL Low 32-36 [facility] Comment on above: Performed By: #### L 100.0100, L500.4050 ####[facility] [address] [place], [address] Nucleated RBC (Bld) [#/Vol] 0 10*3/uL Normal 0-5 [facility] Comment on above: Performed By: #### L 100.0100, L500.4050 ####[facility] [address] [place], [address] Platelet mean volume (Bld) [Entitic vol] 10.0 fL Normal 6.2-12.0 [facility] Comment on above: Performed By: #### L 100.0100, L500.4050 ####[facility] [address] [place], [address] RDW SD 47.4 fl High 35.1-43.9 [facility] Comment on above: Performed By: #### L 100.0100, L500.4050 ####[facility] [address] [place], [address] CMP (EXTERNAL)on 07-22-2024 Alk Phos Total 98 U/L 45 - 117 U/L [facility] Bili Total 0.18 mg/dL Abnormal 0.2 - 1 mg/dL [facility] GFR 44 mL/MIN [facility] Scanned into chart from outside source [facility] Carbon dioxide, total [Moles /volume] in Central venous bloodon 07-22-2024 CO2 [Moles/Vol] 25.9 mmol/L Normal 21.0-32.0 [facility] Comment on above: Performed By: #### L 100.0100, L500.4050 ####[facility] [address] [place], [address] Chloride assayon 07-22-2024 Chloride [Moles/Vol] 104 mmol/L Normal 98-108 [facility] Comment on above: Performed By: #### L 100.0100, L500.4050 ####[facility] [address] [place], [address] Comprehensive Metabolic Prof ilon 07-22-2024 ALK PHOS 98 U/L Normal 35-104 [facility] Comment on above: Performed By: #### L 100.0100, L500.4050 ####[facility] [address] [place], [address] Bilirubin [Mass/Vol] 0.18 mg/dL Normal 0.00-1.30 [facility] Comment on above: Performed By: #### L 100.0100, L500.4050 ####[facility] [address] [place], [address] GAP 10 Normal 5-15 [facility] Comment on above: Performed By: #### L 100.0100, L500.4050 ####[facility] [address] [place], [address] Globulin (S) [Mass/Vol] 2.9 g/dL Normal 2.2-4.2 [facility] Comment on above: Performed By: #### L 100.0100, L500.4050 ####[facility] [address] [place], [address] BUN/CRE 21.9 RATIO High 10-20 [facility] Comment on above: Performed By: #### L 100.0100, L500.4050 ####[facility] [address] [place], [address] GFR/1.73 sq M.predicted among non-blacks MDRD (S/P/Bld) [Vol rate/Area] 44 mL/min/{1.73_m2} Low >60 [facility] Comment on above: Result Comment: mL/m in/1.73m2 CKD-EPI Creatinine Equation (2020) Performed By: #### L 100.0100, L500.4050 ####[facility] [address] [place], [address] T PROT 6.7 g/dL Normal 5.9-8.4 [facility] Comment on above: Performed By: #### L 100.0100, L500.4050 ####[facility] [address] [place], [address] AST [Catalytic activity/Vol] 18 U/L Normal <=31 [facility] Comment on above: Performed By: #### L 100.0100, L500.4050 ####[facility] [address] [place], [address] Eosinophil percentageon 07-06 Eosinophils/100 WBC (Bld) 1.8 % Normal 0-5 [facility] Comment on above: Performed By: #### L 100.0100, L500.4050 ####[facility] [address] [place], [address] Erythrocyte distribution wid th ratioon 07-22-2024 Erythrocyte distribution width (RBC) [Ratio] 13.6 % Normal 11.6-14.6 [facility] Comment on above: Performed By: #### L 100.0100, L500.4050 ####[facility] [address] [place], [address] Erythrocyte distribution wid th standard deviationOrdered By: Alexandra Baker on 07-22-2024 Erythrocyte distribution width (RBC) [Entitic vol] 47.4 fL High 35.1-43.9 [facility] Erythrocyte distribution width (RBC) [Ratio] 47.4 fl High 35.1-43.9 [facility] GFR/1.73 sq M.predicted maria luisa g non-blacks MDRD (S/P/Bld) [Vol rate/Area]Ordered By: Alexandra Baker on 07-22-2024 Estimated GFR (MDRD) Non-Af Amer 44 Low >60 [facility] Comment on above: mL/min/1.73m2 CKD-EP I Creatinine Equation (2020) Glomerular filtration rate ( GFR) estimation/1.73 sq m using serum, plasma, or whole bOrdered By: Alexandra Baker on 07-22-2024 GFR/1.73 sq M.predicted among non-blacks MDRD (S/P/Bld) [Vol rate/Area] 44 mL/min/{1.73_m2} Low >60 [facility] Comment on above: mL/min/1.73m2 CKD-EP I Creatinine Equation (2020) Hemoglobin measurementon Hemoglobin (Bld) [Mass/Vol] 10.7 g/dL Low 12.0-15.0 [facility] Comment on above: Performed By: #### L 100.0100, L500.4050 ####[facility] [address] [place], [address] Immature granulocytes/100 WB C Auto (Bld)Ordered By: Alexandra Baker on 07-22-2024 Immature granulocytes/100 WBC (Bld) 0.500 % 0.0-0.9 [facility] Comment on above: IG% - Immature Granu locytes (promyelocytes, myelocytes and metamyelocytes) > 1% indicates that a LEFT SHIFT is Present. MCV (mean corpuscular volume ) determinationon 07-22-2024 MCV (RBC) [Entitic vol] 95.5 fL Normal 81-99 [facility] Comment on above: Performed By: #### L 100.0100, L500.4050 ####[facility] [address] [place], [address] Mean corpuscular hemoglobin (MCH) determinationon 07-22-2024 MCH (RBC) [Entitic mass] 30.4 pG Normal 27.0-32.0 [facility] Comment on above: Performed By: #### L 100.0100, L500.4050 ####[facility] [address] [place], [address] Mean corpuscular hemoglobin concentration (MCHC) determinationOrdered By: Alexandra Baker on 07-22-2024 MCHC (RBC) [Mass/Vol] 31.8 g/dL Low 32-36 [facility] Mean platelet volume determi nationOrdered By: Alexandra Baker on 07-22-2024 Platelet mean volume (Bld) [Entitic vol] 10.0 fL 6.2-12.0 [facility] Monocyte percentageon 2024 Monocytes/100 WBC (Bld) 8.1 % Normal 0-10 [facility] Comment on above: Performed By: #### L 100.0100, L500.4050 ####[facility] [address] [place], [address] Neutrophil percentageon 07-06 Neutrophils/100 WBC (Bld) 56.9 % Normal 47-70 [facility] Comment on above: Performed By: #### L 100.0100, L500.4050 ####[facility] [address] [place], [address] No Panel Informationon 07-22 Interpretation and review of laboratory results Abnormal [facility] Nucleated red blood cell per centageOrdered By: Alexandra Baker on 07-22-2024 Nucleated RBC/100 WBC (Bld) [Ratio] 0 % 0-5 [facility] Platelet counton 07-22-2024 Platelets (Bld) [#/Vol] 296 10*3/uL Normal 150-450 [facility] Comment on above: Performed By: #### L 100.0100, L500.4050 ####[facility] [address] [place], [address] Potassium measurement (mass/ volume)Ordered By: Alexandra Baker on 07-22-2024 Potassium (Unsp spec) [Mass/Vol] 3.7 mmol/L 3.3-5.1 [facility] Potassium measurement (mass/ volume)on 07-22-2024 Potassium [Moles/Vol] 3.7 mmol/L Normal 3.3-5.1 [facility] Comment on above: Performed By: #### L 100.0100, L500.4050 ####[facility] [address] [place], [address] Serum creatinine measurement (mass/volume)on 07-22-2024 Creatinine [Mass/Vol] 1.32 mg/dL High 0.70-1.20 [facility] Comment on above: Performed By: #### L 100.0100, L500.4050 ####[facility] [address] [place], [address] Serum globulin measurementOr dered By: Alexandra Baker on 07-22-2024 Globulin (S) [Mass/Vol] 2.9 g/dL 2.2-4.2 [facility] Serum glucose measurement (m ass/volume)on 07-22-2024 Glucose [Mass/Vol] 73 mg/dL Normal 70-99 [facility] Comment on above: Performed By: #### L 100.0100, L500.4050 ####[facility] [address] [place], [address] Serum or plasma alanine coffey otransferase (ALT) measurementon 07-22-2024 ALT [Catalytic activity/Vol] 13 U/L Normal <=34 [facility] Comment on above: Performed By: #### L 100.0100, L500.4050 ####[facility] [address] [place], [address] Serum or plasma albumin dave urement (mass/volume)on 07-22-2024 Albumin [Mass/Vol] 3.7 g/dL Normal 3.4-4.8 [facility] Comment on above: Performed By: #### L 100.0100, L500.4050 ####[facility] [address] [place], [address] Serum or plasma albumin/glob ulin mass ratioon 07-22-2024 Albumin/Globulin [Mass ratio] 1.3 {ratio} Normal 0.9-2.4 [facility] Comment on above: Performed By: #### L 100.0100, L500.4050 ####[facility] [address] [place], [address] Serum or plasma alkaline tim sphatase measurementOrdered By: Alexandra Baker on 07-22-2024 ALP [Catalytic activity/Vol] 98 U/L 35-104 [facility] Serum or plasma calcium dave urement (mass/volume)on 07-22-2024 Calcium [Mass/Vol] 9.6 mg/dL Normal 7.6-11.0 [facility] Comment on above: Performed By: #### L 100.0100, L500.4050 ####[facility] [address] [place], [address] Serum or plasma urea nitroge n measurement (mass/volume)on 07-22-2024 Urea nitrogen [Mass/Vol] 29 mg/dL High 4-19 [facility] Comment on above: Performed By: #### L 100.0100, L500.4050 ####[facility] [address] [place], [address] Sodium levelon 07-22-2024 Sodium [Moles/Vol] 140 mmol/L Normal 133-145 [facility] Comment on above: Performed By: #### L 100.0100, L500.4050 ####[facility] [address] [place], [place], [id number] Total proteinon 07-22-2024 Protein [Mass/Vol] 6.7 g/dL 5.9-8.4 [facility] White blood cell (WBC) count on 07-22-2024 WBC (Bld) [#/Vol] 6.6 10*3/uL Normal 4.4-11.0 [facility] Comment on above: Performed By: #### L 100.0100, L500.4050 ####[facility] [address] [place], [place], [id number] CNOVon 07-17-2024 CNOV Office Visit (FAMMAS ) KATRINA SERRANO ([id number]) 1955 F Date Time Provider Department 07/17/24 [...] MD 07/17/2024 4:51 PM Signed Subjective Katrina Serrano is a [...] EGD TRANSORAL BIOPSY SINGLE/MULTIPLE 06/16/2010 EGD W/O [facility] SPEC VARICIES INJ 11/17/2021 EXC NEUROMA HAND/FOOT [...] vitamin D3, (VITAMI (more content not included)... [facility] CNOVon 07-10-2024 CN Office Visit (UCWSTR ) KATRINA SERRANO ([id number]) 1955 F Date Time Provider Department 07/10/24 4:45 PM KAEL NUNEZ KRISTEN During your visit today, we recorded the following information about you: Kael Nunez APRN.CNP 07/10/2024 5:40 PM Signed Patient triaged at [facility]. Here today with new bilat lower leg swelling. Denies cp/sob/leg pain. I will refer to pcp, will make appointment jonathan. Urgent f/u for worsening or severe s/s. 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 difficile diarrhea [A04.72] 06/19/2023 Elevated fecal calprotectin [R19.5] 06/19/2023 Iron deficiency anemia [D50.9] 06/19/2023 (more content not included)... Normal [facility] XR CHEST 2V FRONTAL/LATon XR CHEST 2V [...] scoliosis. IMPRESSION: Stable chest. No developing abnormality Hair Cutter: LISA Transcribe Date/Time: Jul 05 2024 4:24P Dictated by : ZOE PISANO MD This examination was interpreted and the report reviewed and electronically signed by: ZOE PISAON MD on Jul 05 2024 4:28PM EST [id number] Normal [facility] XR Chest PA and Lateralon IMPRESSION: Stable chest. No developing abnormality Hair Cutter: PSCDior Transcribe Date/Time: Jul 05 2024 4:24P Dictated [...] change and scoliosis. DIVISION OF RADIOLOGY Provider, [facility] - 07/05/2024 * * *Final Report* * [...] IMPRESSION IMPRESSION: Stable chest. No developing abnormality Hair Cutter: PSCB Transcribe Date/Time: Jul 05 2024 4:24P Dictated by : ZOE PISANO MD This examination was interpreted and the report reviewed and electronically signed by: ZOE PISANO MD on Jul 05 2024 4:28PM EST [facility] Radiology Study observation (narrative) [facility] XR Chest PA and LateralOrder ed By: Ccf Provider on 07-05-2024 [facility] CNOVon 06-28-2024 CNOV Office Visit (PULMWS ) KATRINA SERRANO ([id number]) 1955 F Date Time Provider Department 06/28/24 10:30 AM RONALD GARRIDO PULMWS During your visit today, we recorded the following information about you: Pulse Respiration Blood pressure Weight 68/minute 18/minute 106/72 90.3 kg Ronald Garrido, FACILITY EXAMINER.QUALITY ENGINEER MEDICAL DEVICE 06/28/2024 5:20 PM Signed Pulmonary Medicine Patients name: Katrina Henson PCP: Dennis Marcial MD CC: follow-up HPI: Katrina Serrano is a 68 year old female former [id number] smoker, quitting in 1999 with PMH significant [...] Also has hx of Afib and sees [facility]. Does not recall when she was last seen or when her last echo was. She was seen by [facility] 06/20 with head cold symptoms x5 days. [...] [employer] 3L nocturnal O2 Modified Medical Research [place] Dyspnea Scale (MMRC) I stop for breath [...] indicate re (more content not included)... Normal [facility] CNOVSPon 06-27-2024 CNOVSP Visit (SP) Office (ROBINSON) KATRINA SERRANO ([id number]) 1955 F Date Time Provider Department 06/27/24 [...] Dr Lambert: DIAGNOSIS: Lung cancer (cT1-2, N2M0) sgL5xV2/ stage IIIA adenocarcinoma of the right middle [...] cGy in 25 fractions treating to the 62KWS28.4% isodose line with 6 MV and 7 tarango. IGRT with daily CBCTs. Concurrent chemotherapy with Cisplatin/Etoposide x 2 cycles ( 04/06/20 to 05/12/20 ) SURGICAL HX: 03/13/2020: Mediastinoscopy positive LN, PDL positive 100% 06/22/2020: Right thoracotomy, right middle lobectomy with mediastinal and hilar lymph node dissection, and vascularized pedicle tissue buttress of bronchial stump. [id number] Previous treatment: Durvalumab maintenance x 4 doses [...] EGD TRANSORAL BIOPSY SINGLE/MULTIPLE 06/16/2010 EGD W/O [facility] SPEC VARICIES INJ 11/17/2021 EXC NEUROMA HAND/FOOT [...] ALLERGIES No (more content not included)... Normal [facility] CNOVon 06-26-2024 CNOV Office Visit (FAMMAS ) KATIRNA SERRANO ([id number]) 1955 F Date Time Provider Department 06/26/24 4:20 PM DENNIS MARCIALAZDavid During your visit today, we recorded the [...] 03/24/1970 Quit (more content not included)... Normal [facility] CBC W Auto Differential pane l (Bld)on 06-20-2024 Basophils (Bld) [#/Vol] 10*3/uL Normal <0.11 [facility] Comment on above: Order Comment: Suma cho Type: BLOOD SPECIMEN Ordering Facility: [facility] Address: [address] [place] [address] Performed By: #### 5 7021-8 #### [facility] CLIA [id number] [address] [place] [address] [place] Basophils/100 WBC (Bld) 0.3 % Normal [facility] Comment on above: Order Comment: Suma cho Type: BLOOD SPECIMEN Ordering Facility: [facility] Address: [address] [place] [address] Performed By: #### 5 7021-8 #### [facility] CLIA [id number] [address] [place] [address] [place] Differential cell count method Nom (Bld) Auto Normal [facility] Comment on above: Order Comment: Speci men Type: BLOOD SPECIMEN Ordering Facility: [facility] Address: [address] [place] [address] Performed By: #### 5 7021-8 #### [facility] CLIA [id number] [address] [place] [address] [place] Eosinophils (Bld) [#/Vol] 0.23 10*3/uL Normal <0.46 [facility] Comment on above: Order Comment: Speci men Type: BLOOD SPECIMEN Ordering Facility: [facility] Address: [address] [place] [address] Performed By: #### 5 7021-8 #### [facility] CLIA [id number] [address] [place] [address] [place] Eosinophils/100 WBC (Bld) 3.6 % Normal [facility] Comment on above: Order Comment: Speci men Type: BLOOD SPECIMEN Ordering Facility: [facility] Address: [address] [place] [address] Performed By: #### 5 7021-8 #### [facility] CLIA [id number] [address] [place] [address] [place] Erythrocyte distribution width (RBC) [Ratio] 13.3 % Normal 11.5-15.0 [facility] Comment on above: Order Comment: Speci men Type: BLOOD SPECIMEN Ordering Facility: [facility] Address: [address] [place] [address] Performed By: #### 5 7021-8 #### [facility] CLIA [id number] [address] [place] [address] [place] Hematocrit (Bld) [Volume fraction] 37.9 % Normal 36.0-46.0 [facility] Comment on above: Order Comment: Speci men Type: BLOOD SPECIMEN Ordering Facility: [facility] Address: [address] [place] [address] Performed By: #### 5 7021-8 #### [facility] CLIA [id number] [address] [place] [address] [place] Hemoglobin (Bld) [Mass/Vol] 12.1 g/dL Normal 11.5-15.5 [facility] Comment on above: Order Comment: Speci men Type: BLOOD SPECIMEN Ordering Facility: [facility] Address: [address] [place] [address] Performed By: #### 5 7021-8 #### [facility] CLIA [id number] [address] [place] [address] [place] Immature granulocytes (Bld) [#/Vol] 0.05 10*3/uL Normal <0.10 [facility] Comment on above: Order Comment: Speci men Type: BLOOD SPECIMEN Ordering Facility: [facility] Address: [address] [place] [address] Performed By: #### 5 7021-8 #### [facility] CLIA [id number] [address] [place] [address] [place] Immature granulocytes/100 WBC (Bld) 0.8 % Normal [facility] Comment on above: Order Comment: Speci men Type: BLOOD SPECIMEN Ordering Facility: [facility] Address: [address] [place] [address] Performed By: #### 5 7021-8 #### [facility] CLIA [id number] [address] [place] [address] [place] Lymphocytes (Bld) [#/Vol] 1.35 10*3/uL Normal 1.00-4.00 [facility] Comment on above: Order Comment: Speci men Type: BLOOD SPECIMEN Ordering Facility: [facility] Address: [address] [place] [address] Performed By: #### 5 7021-8 #### [facility] CLIA [id number] [address] [place] [address] [place] Lymphocytes/100 WBC (Bld) 20.9 % Normal [facility] Comment on above: Order Comment: Speci men Type: BLOOD SPECIMEN Ordering Facility: [facility] Address: [address] [place] [address] Performed By: #### 5 7021-8 #### [facility] CLIA [id number] [address] [place] [address] [place] MCH (RBC) [Entitic mass] 30.3 pg Normal 26.0-34.0 [facility] Comment on above: Order Comment: Speci men Type: BLOOD SPECIMEN Ordering Facility: [facility] Address: [address] [place] [address] Performed By: #### 5 7021-8 #### [facility] CLIA [id number] [address] [place] [address] [place] MCHC (RBC) [Mass/Vol] 31.9 g/dL Normal 30.5-36.0 [facility] Comment on above: Order Comment: Speci men Type: BLOOD SPECIMEN Ordering Facility: [facility] Address: [address] [place] [address] Performed By: #### 5 7021-8 #### [facility] CLIA [id number] [address] [place] [address] [place] MCV (RBC) [Entitic vol] 95.0 fL Normal 80.0-100.0 [facility] Comment on above: Order Comment: Speci men Type: BLOOD SPECIMEN Ordering Facility: [facility] Address: [address] [place] [address] Performed By: #### 5 7021-8 #### [facility] CLIA [id number] [address] [place] [address] [place] Monocytes (Bld) [#/Vol] 0.46 10*3/uL Normal <0.87 [facility] Comment on above: Order Comment: Speci men Type: BLOOD SPECIMEN Ordering Facility: [facility] Address: [address] [place] [address] Performed By: #### 5 7021-8 #### [facility] CLIA [id number] [address] [place] [address] [place] Monocytes/100 WBC (Bld) 7.1 % Normal [facility] Comment on above: Order Comment: Speci men Type: BLOOD SPECIMEN Ordering Facility: [facility] Address: [address] [place] [address] Performed By: #### 5 7021-8 #### [facility] CLIA [id number] [address] [place] [address] [place] Neutrophils (Bld) [#/Vol] 4.35 10*3/uL Normal 1.45-7.50 [facility] Comment on above: Order Comment: Speci men Type: BLOOD SPECIMEN Ordering Facility: [facility] Address: [address] [place] [address] Performed By: #### 5 7021-8 #### [facility] CLIA [id number] [address] [place] [address] [place] Neutrophils/100 WBC (Bld) 67.3 % Normal [facility] Comment on above: Order Comment: Speci men Type: BLOOD SPECIMEN Ordering Facility: [facility] Address: [address] [place] [address] Performed By: #### 5 7021-8 #### [facility] CLIA [id number] [address] [place] [address] [place] Nucleated RBC (Bld) [#/Vol] 10*3/uL Normal <0.01 [facility] Comment on above: Order Comment: Speci men Type: BLOOD SPECIMEN Ordering Facility: [facility] Address: [address] [place] [address] Performed By: #### 5 7021-8 #### [facility] CLIA [id number] [address] [place] [address] [place] Nucleated RBC/100 WBC (Bld) [Ratio] 0.0 /100 WBC Normal [facility] Comment on above: Order Comment: Speci men Type: BLOOD SPECIMEN Ordering Facility: [facility] Address: [address] [place] [address] Performed By: #### 5 7021-8 #### [facility] CLIA [id number] [address] [place] [address] [place] Platelet mean volume (Bld) [Entitic vol] 9.0 fL Normal 9.0-12.7 [facility] Comment on above: Order Comment: Speci men Type: BLOOD SPECIMEN Ordering Facility: [facility] Address: [address] [place] [address] Performed By: #### 5 7021-8 #### [facility] CLIA [id number] [address] [place] [address] [place] Platelets (Bld) [#/Vol] 201 10*3/uL Normal 150-400 [facility] Comment on above: Order Comment: Speci men Type: BLOOD SPECIMEN Ordering Facility: [facility] Address: [address] [place] [address] Performed By: #### 5 7021-8 #### [facility] CLIA [id number] [address] [place] [address] [place] RBC (Bld) [#/Vol] 3.99 10*6/uL Normal 3.90-5.20 [facility] Comment on above: Order Comment: Speci men Type: BLOOD SPECIMEN Ordering Facility: [facility] Address: [address] [place] [address] Performed By: #### 5 7021-8 #### [facility] CLIA [id number] [address] [place] [address] [place] WBC (Bld) [#/Vol] 6.46 10*3/uL Normal 3.70-11.00 [facility] Comment on above: Order Comment: Speci men Type: BLOOD SPECIMEN Ordering Facility: [facility] Address: [address] [place] [address] Performed By: #### 5 7021-8 #### [facility] CLIA [id number] [address] OF [facility] CNOVon 06-20-2024 CNOV Office Visit (UCWSTR ) KATRINA SERRANO ([id number]) 1955 F Date Time Provider Department 06/20/24 11:45 AM MICHAEL BABIN [facility] During your visit today, we recorded [...] Nereida Cisneros LPN Referring Provider: SHANE STEWARD [[id number]] Allergies As of Date: 06/20/2024 (No Known Allergies) Date Reviewed: 06/20/2024 Reviewed by: Nereida Cisneros LPN - Fully Assessed Reason for Visit: Cough [28] Cmt: Chest congestion, tightness, burning in chest, Wheeze, SOB, fever, fatigue, body aches x 36 hours Pr (more content not included)... Normal [facility] CT CHEST WO IVCONon 06-20-[address] CHEST WO IVCON * * *Final Report* * * DATE OF EXAM: Jun 20 2024 10:09AM [facility] 0541 - CT CHEST WO IVCON [...] Stable right paratracheal lymphadenopathy versus fluid collection. Hair Cutter: LISA Transcribe Date/Time: Jun 27 2024 8:54A Dictated by : KEYLA SOLIS MD This examination was interpreted and the report reviewed and electronically signed by: KEYLA SOLIS MD on Jun 28 2024 1:54PM EST [id number] Normal [facility] Comprehensive metabolic 2000 panelon 06-20-2024 Albumin [Mass/Vol] 4.2 g/dL Normal 3.9-4.9 [facility] Comment on above: Order Comment: Suma cho Type: BLOOD SPECIMEN Ordering Facility: [facility] Address: [address] [place] [address] Performed By: #### 2 276-4, 86529-0 #### [facility] CLIA [id number] [address] #### 85817-7 #### [facility] CLIA [id number] [address] CLIA [id number] [address] [place] [address] [place] [facility] ALP [Catalytic activity/Vol] 157 U/L High 34-123 [facility] Comment on above: Order Comment: Suma cho Type: BLOOD SPECIMEN Ordering Facility: [facility] Address: [address] [place] [address] Performed By: #### 2 276-4, 77213-4 #### [facility] CLIA [id number] [address] #### 15767-9 #### [facility] CLIA [id number] [address] STATES OF [facility] CLIA [id number] [address] [place] [address] [place] ALT [Catalytic activity/Vol] 19 U/L Normal 7-38 [facility] Comment on above: Order Comment: Speci men Type: BLOOD SPECIMEN Ordering Facility: [facility] Address: [address] [place] [address] Performed By: #### 2 276-4, 96603-1 #### [facility] CLIA [id number] [address] [place] #### 93640-6 #### [facility] CLIA [id number] [address] STATES OF [facility] CLIA [id number] [address] [place] [address] [place] Anion gap [Moles/Vol] 9 mmol/L Normal 8-15 [facility] Comment on above: Order Comment: Speci men Type: BLOOD SPECIMEN Ordering Facility: [facility] Address: [address] [place] [address] Performed By: #### 2 276-4, 82417-7 #### [facility] CLIA [id number] [address] [place] #### 33258-0 #### [facility] CLIA [id number] [address] STATES OF [facility] CLIA [id number] [address] [place] [address] [place] AST [Catalytic activity/Vol] 26 U/L Normal 13-35 [facility] Comment on above: Order Comment: Speci men Type: BLOOD SPECIMEN Ordering Facility: [facility] Address: [address] [place] [id number] Performed By: #### 2 276-4, 35732-7 #### [facility] CLIA [id number] [address] [place] #### 40812-9 #### [facility] CLIA [id number] [address] [place] [facility] CLIA [id number] [address] [place] [address] [place] Bilirubin [Mass/Vol] 0.3 mg/dL Normal 0.2-1.3 [facility] Comment on above: Order Comment: Speci men Type: BLOOD SPECIMEN Ordering Facility: [facility] Address: [address] [place] [address] Performed By: #### 2 276-4, 90297-5 #### [facility] CLIA [id number] [address] #### 78382-4 #### [facility] CLIA [id number] [address] STATES OF [facility] CLIA [id number] [address] [place] [address] [place] Calcium [Mass/Vol] 9.9 mg/dL Normal 8.5-10.2 [facility] Comment on above: Order Comment: Speci men Type: BLOOD SPECIMEN Ordering Facility: [facility] Address: [address] [place] [address] Performed By: #### 2 276-4, 21987-9 #### [facility] CLIA [id number] [address] [place] #### 64511-1 #### [facility] CLIA [id number] [address] STATES OF [facility] CLIA [id number] [address] [place] [address] [place] Chloride [Moles/Vol] 101 mmol/L Normal 98-107 [facility] Comment on above: Order Comment: Speci men Type: BLOOD SPECIMEN Ordering Facility: [facility] Address: [address] [place] [id number] Performed By: #### 2 276-4, 80870-5 #### [facility] CLIA [id number] [address] [place] #### 79373-3 #### [facility] CLIA [id number] [address] OF [facility] CLIA [id number] [address] [place] [address] [place] CO2 [Moles/Vol] 29 mmol/L Normal 22-30 [facility] Comment on above: Order Comment: Speci men Type: BLOOD SPECIMEN Ordering Facility: [facility] Address: [address] [place] [address] Performed By: #### 2 276-4, 75021-3 #### [facility] CLIA [id number] [address] STATES [place] #### 34841-1 #### [facility] CLIA [id number] [address] [place] [address] [place] [facility] CLIA [id number] [address] [place] [address] [place] Creatinine [Mass/Vol] 1.28 mg/dL High 0.58-0.96 [facility] Comment on above: Order Comment: Speci men Type: BLOOD SPECIMEN Ordering Facility: [facility] Address: [address] [place] [address] Performed By: #### 2 276-4, 15130-5 #### [facility] CLIA [id number] [address] [place] #### 13560-7 #### [facility] CLIA [id number] [address] [place] [address] [place] [facility] CLIA [id number] [address] [place] [address] [place] Creatinine and Glomerular filtration rate.predicted panel (S/P/Bld) 46 mL/min/1.73m??? Low >=60 [facility] Comment on above: Order Comment: Speci men Type: BLOOD SPECIMEN Ordering Facility: [facility] Address: [address] [place] [address] Result Comment: Gracia mated Glomerular Filtration Rate (eGFR) is calculated using the 2021 CKD-EPI creatinine equation. This equation utilizes serum creatinine, sex, and age as parameters. The creatinine assay has traceable calibration to isotope dilution-mass spectrometry. Refer to KDIGO guidelines for clinical interpretation. In patients with unstable renal function, e.g. those with acute kidney injury, the eGFR may not accurately reflect actual GFR. Performed By: #### 2 276-4, 10498-6 #### [facility] CLIA [id number] [address] #### 80845-8 #### [facility] CLIA [id number] [address] CLIA [id number] [address] [place] [address] Glucose [Mass/Vol] 87 mg/dL Normal 74-99 [facility] Comment on above: Order Comment: Speci men Type: BLOOD SPECIMEN Ordering Facility: [facility] Address: [address] [place] [address] Result Comment: The [place] Diabetes Association (ADA) provides guidance for cutoff [...] Standards of Medical Care in Diabetes 2016, [place] [employer] Association. Diabetes Care. 2016.39(Suppl 1). Performed By: #### 2 276-4, 03473-5 #### [facility] CLIA [id number] [address] #### 58570-5 #### [facility] CLIA [id number] [address] STATES [facility] CLIA [id number] [address] [place] [address] [place] Potassium [Moles/Vol] 3.8 mmol/L Normal 3.7-5.1 [facility] Comment on above: Order Comment: Speci men Type: BLOOD SPECIMEN Ordering Facility: [facility] Address: [address] [place] [address] Performed By: #### 2 276-4, 89380-1 #### [facility] CLIA [id number] [address] [place] #### 41051-7 #### [facility] CLIA [id number] [address] STATES OF [facility] CLIA [id number] [address] [place] [address] [place] Protein [Mass/Vol] 7.4 g/dL Normal 6.3-8.0 [facility] Comment on above: Order Comment: Speci men Type: BLOOD SPECIMEN Ordering Facility: [facility] Address: [address] [place] [address] Performed By: #### 2 276-4, 89799-0 #### [facility] CLIA [id number] [address] STATES [place] #### 31634-2 #### [facility] CLIA [id number] [address] [place] [facility] CLIA [id number] [address] [place] [address] [place] Sodium [Moles/Vol] 139 mmol/L Normal 136-144 [facility] Comment on above: Order Comment: Speci men Type: BLOOD SPECIMEN Ordering Facility: [facility] Address: [address] [place] [address] Performed By: #### 2 276-4, 95547-8 #### [facility] CLIA [id number] [address] [place] #### 62500-3 #### [facility] CLIA [id number] [address] [place] [address] [place] [facility] CLIA [id number] [address] [place] [address] [place] Urea nitrogen [Mass/Vol] 23 mg/dL High 7-21 [facility] Comment on above: Order Comment: Speci men Type: BLOOD SPECIMEN Ordering Facility: [facility] Address: [address] [place] [address] Performed By: #### 2 276-4, 62688-2 #### [facility] CLIA [id number] [address] [place] [address] [place] #### 03302-0 #### [facility] CLIA [id number] [address] [place] [address] [place] [facility] CLIA [id number] [address] [place] [address] [place] Ferritin SerPl-mCncon 2024 Ferritin [Mass/Vol] 94.4 ng/mL Normal 14.7-205.1 [facility] Comment on above: Order Comment: Speci men Type: BLOOD SPECIMEN Ordering Facility: [facility] Address: [address] [place] [address] Performed By: #### 2 276-4, 28124-3 #### [facility] CLIA [id number] 1 [place] [address] [place] #### 13922-7 #### [facility] CLIA [id number] 1 [place] [address] [place] [facility] CLIA [id number] [address] [place] [address] [place] INFLUENZA A&B MOLECULAR (POC )on 06-20-2024 Flu A (POCT) Negative Negative [facility] Flu B (POCT) Negative Negative [facility] Procedural Control Valid [facility] Location:[address] POINT OF CARE [facility] Iron and Iron binding capaci ty panelon 06-20-2024 Iron [Mass/Vol] 70 ug/dL Normal 41-186 [facility] Comment on above: Order Comment: Speci men Type: BLOOD SPECIMEN Ordering Facility: [facility] Address: [address] [place] [address] Performed By: #### 2 276-4, 55435-6 #### [facility] CLIA [id number] [address] #### 46778-2 #### [facility] CLIA [id number] [address] CLIA [id number] [place] [address] Iron binding capacity [Mass/Vol] 285 ug/dL Normal 232-386 [facility] Comment on above: Order Comment: Speci men Type: BLOOD SPECIMEN Ordering Facility: [facility] Address: [address] [place] [address] Performed By: #### 2 276-4, 23653-9 #### [facility] CLIA [id number] [address] #### 37608-3 #### [facility] CLIA [id number] [address] CLIA [id number] [address] [place] [address] Iron saturation [Mass fraction] 24.6 % Normal 15.0-57.0 [facility] Comment on above: Order Comment: Speci men Type: BLOOD SPECIMEN Ordering Facility: [facility] Address: [facility] [place] [address] Performed By: #### 2 276-4, 95200-0 #### [facility] CLIA [id number] [address] [place] #### 68414-4 #### [facility] CLIA [id number] [address] STATES OF [facility] CLIA [id number] [address] [place] [address] [place] Lipid 1996 panelon 5 Cholesterol [Mass/Vol] 176 mg/dL Normal <200 [facility] Comment on above: Order Comment: Speci men Type: BLOOD SPECIMEN Ordering Facility: [facility] Address: [address] [place] [address] Result Comment: <200 mg/dL, Desirable 200-239 mg/dL, Borderline high >239 mg/dL, High Performed By: #### 2 276-4, 25629-5 #### [facility] CLIA [id number] [address] [place] #### 39526-7 #### [facility] CLIA [id number] [address] STATES [facility] CLIA [id number] [address] [place] [address] STATES [facility] Cholesterol in HDL [Mass/Vol] 48 mg/dL Normal >39 [facility] Comment on above: Order Comment: Speci men Type: BLOOD SPECIMEN Ordering Facility: [facility] Address: [address] [place] [address] Result Comment: 40-5 9 mg/dL, Acceptable >59 mg/dL, High: Negative risk factor for coronary heart disease <40 mg/dL, Low: Positive risk factor for coronary heart disease Performed By: #### 2 276-4, 78832-8 #### [facility] CLIA [id number] [address] STATES [place] #### 88557-3 #### [facility] CLIA [id number] 1 [place] [address] [place] [facility] CLIA [id number] [address] [place] Cholesterol in LDL [Mass/Vol] 100 mg/dL High <100 [facility] Comment on above: Order Comment: Speci men Type: BLOOD SPECIMEN Ordering Facility: [facility] Address: [address] [place] [address] Result Comment: <100 mg/dL, Optimal 100-129 mg/dL, Near optimal/above optimal 130-159 mg/dL, Borderline high 160-189 mg/dL, High >189 mg/dL, Very high Secondary prevention optimal LDL Cholesterol levels are recommended to be < 70 mg/dL Performed By: #### 2 276-4, 62757-5 #### [facility] CLIA [id number] [address] #### 38299-3 #### [facility] CLIA [id number] [address] STATES [facility] CLIA [id number] [address] [place] [address] STATES [facility] Cholesterol in LDL/Cholesterol in HDL [Mass ratio] 2.08 {ratio} Normal <2.54 [facility] Comment on above: Order Comment: Speci men Type: BLOOD SPECIMEN Ordering Facility: [facility] Address: [address] [place], [place] [address] [address] Result Comment: Kyler kam: 1. National Cholesterol Education Program ATP III Guideline At-A-Glance Quick Desk Reference: National Heart, Lung, and Blood [place]. National Institutes of Health. 2001: NIH Publication No. 01-3305. 2. An International Atherosclerosis Society position paper: global recommendations for the management of dyslipidemia: executive summary, Atherosclerosis. 2014: 232(2):410-413. Performed By: #### 2 276-4, 77107-9 #### [facility] CLIA [id number] [address] #### 76814-8 #### [facility] CLIA [id number] [address] CLIA [id number] [address] [place] [address] Cholesterol in VLDL [Mass/Vol] 28 mg/dL Normal <30 [facility] Comment on above: Order Comment: Speci men Type: BLOOD SPECIMEN Ordering Facility: [facility] Address: [address] [place] [address] Performed By: #### 2 276-4, 28899-5 #### [facility] CLIA [id number] [address] #### 96750-4 #### [facility] CLIA [id number] [address] CLIA [id number] [address] [place] [address] OF [facility] Cholesterol non HDL [Mass/Vol] 128 mg/dL Normal <130 [facility] Comment on above: Order Comment: Speci men Type: BLOOD SPECIMEN Ordering Facility: [facility] Address: [address] [place] [address] Result Comment: <130 mg/dL, Optimal 130-159 mg/dL, Near optimal/above optimal 160-189 mg/dL, Borderline high 190-219 mg/dL, High >219 mg/dL, Very high Secondary prevention optimal non HDL Cholesterol levels are recommended to be <100 mg/dL Performed By: #### 2 276-4, 61569-8 #### [facility] CLIA [id number] [address] #### 47094-7 #### [facility] CLIA [id number] [address] CLIA [id number] [address] [place] [address] Cholesterol.total/Chol esterol in HDL [Mass ratio] 3.67 {ratio} Normal <5.10 [facility] Comment on above: Order Comment: Speci men Type: BLOOD SPECIMEN Ordering Facility: [facility] Address: [address] [place] [address] Performed By: #### 2 276-4, 19763-0 #### [facility] CLIA [id number] [address] OF [place] #### 62244-3 #### [facility] CLIA [id number] [address] OF [facility] CLIA [id number] [address] [place] [address] FASTING TIME 12 hrs Normal [facility] Comment on above: Order Comment: Speci men Type: BLOOD SPECIMEN Ordering Facility: [facility] Address: [address] [place] [address] Performed By: #### 2 276-4, 80301-0 #### [facility] CLIA [id number] [address] #### 60587-5 #### [facility] CLIA [id number] [address] STATES [facility] CLIA [id number] [address] [place] [address] STATES [facility] Triglyceride [Mass/Vol] 140 mg/dL Normal <150 [facility] Comment on above: Order Comment: Speci men Type: BLOOD SPECIMEN Ordering Facility: [facility] Address: [address] [place] [address] Result Comment: <150 mg/dL, Normal 150-199 mg/dL, Borderline high 200-499 mg/dL, High >499 mg/dL, Very high Performed By: #### 2 276-4, 72811-6 #### [facility] CLIA [id number] [address] [place] #### 17158-4 #### [facility] CLIA [id number] [address] STATES [facility] CLIA [id number] [address] [place] [address] [place] XR CHEST 2V FRONTAL/LATon XR CHEST 2V [...] posttreatment volume loss of the right lung. 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 Stable posttreatment volume loss of the right lung. 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 DIVISION OF RADIOLOGY Provider, [facility] - 06/20/2024 * * *Final Report* [...] posttreatment volume loss of the right lung. Hair Cutter: LISA Transcribe Date/Time: Jun 20 2024 12:34P Dictated by : JADA ENGLISH MD This examination was interpreted and the report reviewed and electronically signed by: JADA ENGLISH MD on Jun 20 2024 12:37PM EST [facility] Radiology Study observation (narrative) [facility] XR Chest PA and LateralOrder ed By: Ccf Provider on 06-20-2024 [facility] BD DXA - AXIAL SKELETONon BD DXA - AXIAL SKELETON * * *Final Report* * * DATE OF EXAM: Jun 13 2024 12:41PM GUANAKO Claudio - BD DXA - AXIAL SKELETON / PROCEDURE REASON: * * * * Physician Interpretation * * * * EXAMINATION: DXA BONE DENSITOMETRY BD DXA - AXIAL SKELETON PATIENT DEMOGRAPHICS: Age: 68 years, Gender: Female SCANNER INFORMATION: DXA Model: [employer] - [employer] C [address]5747 Date Scanned: 06/13/2024 12:41 PM CLINICAL HISTORY: [...] FOR MORE INFORMATION ABOUT DIAGNOSIS AND TREATMENT: [facility] Disease:? www.ccf.org/arthritis/ osteo National Osteoporosis Foundation:? www.nof.org International Society of Clinical Densitometry www.iscd.org Hair Cutter: LISA Transcribe Date/Time: Jun 17 2024 5:49A Dictated by : MICHAEL SHANE MD This examination was interpreted and the report reviewed and electronically signed by: MICHAEL SHANE MD on Jun 17 2024 5:52AM EST [id number] -2.5 Normal [facility] DBT Breast - bilateral scree shin 06-13-2024 IMPRESSION: There is no mammographic [...] Elvira Holder M.D. Electronically signed on: 06/13/2024 Hair Cutter: TIAGO Transcribe Date/Time: Jun 13 2024 12:39P Dictated by: ELVIRA HOLDER MD This examination was interpreted and the report reviewed and electronically signed by: ELVIRA HOLDER MD on Jun 13 2024 2:09PM [facility] DIVISION OF RADIOLOGY * * *Final Report* * * DATE OF EXAM: Jun 13 2024 12:49PM [facility] [place] SCREENING W OBIE / PROCEDURE REASON: Encounter for screening mammogram for breast cancer * * * * Physician Interpretation * * * * RESULT: [facility] [address] [id number] #[id number] - [place] SCREENING W OBIE HISTORY: 68 year-old patient [...] significant interval changes. DIVISION OF RADIOLOGY Provider, [facility] - 06/13/2024 * * *Final Report* * * DATE OF EXAM: Jun 13 2024 12:49PM [facility] [place] [facility] SCREENING W OBIE / PROCEDURE REASON: Encounter for screening mammogram for breast cancer * * * * Physician Interpretation * * * * RESULT: [facility] [address] [place] [address] #[id number] - [place] [facility] SCREENING W OBIE HISTORY: 68 year-old patient [...] Elvira Holder M.D. Electronically signed on: 06/13/2024 Hair Cutter: TIAGO Transcribe Date/Time: Jun 13 2024 12:39P Dictated by: ELVIRA HOLDER MD This examination was interpreted and the report reviewed and electronically signed by: ELVIRA HOLDER MD on Jun 13 2024 2:09PM EST [facility] Radiology Study observation (narrative) [facility] DBT Breast - bilateral scree ningOrdered By: Ccf Provider on 06-13-2024 [facility] JERALD SCREENING W TOMOon 06-13 JERAL[facility] SCREENING W OBIE * * *Final Report* * * DATE OF EXAM: Jun 13 2024 12:49PM [facility] - [place] SCREENING W OBIE / PROCEDURE REASON: Encounter for screening mammogram for breast cancer * * * * Physician Interpretation * * * * RESULT: [facility] [address] [id number] #[id number] - [place] SCREENING W OBIE HISTORY: 68 [...] Elvira Holder M.D. Electronically signed on: 06/13/2024 Hair Cutter: TIAGO Transcribe Date/Time: Jun 13 2024 12:39P Dictated by: ELVIRA HOLDER MD This examination was interpreted and the report reviewed and electronically signed by: ELVIRA HOLDER MD on Jun 13 2024 2:09PM EST [id number] Normal [facility] CNOVon 06-08-2024 CNOV Office Visit ([facility]WSTR ) KATRINA SERRANO ([id number]) 1955 F Date Time Provider Department 06/08/24 3:00 PM MICHAEL BABIN [facility] During your visit today, we recorded the following information about you: Michael Babin MD 06/08/2024 3:07 PM Signed [facility] Care Triage Note: Patient [facility] care with complaint of severe right arm [...] Depression [F32.A] 03/08/2017 Degeneration of intervertebral disc [[id number]] 07/08/2022 Contusion of knee and lower leg [S80.00XA, S80.*07/08/2022 Atherosclerosis of aorta (HCC) [I70.0] 07/08/2022 Restless leg syndrome [G25.81] 07/08/2022 Steatosis of liver [K76.0] 07/08/2022 Pancytopenia (HCC) [D61.818] 07/08/2022 Pure hypercholesterolemia, unspecified [E78.00] 03/30/2021 Radiation pneumonitis (HCC) [J70.0] 07/08/2022 Rib pain [R07.81] 07/08/2022 Sinusitis [J32.9] 07/08/2022 Stage III squamo (more content not included)... Normal [facility] Emergency Department Summary on 06-08-2024 Emergency Department Summary [facility] Medical Records Department [address] [place] [address] Emergency Department Summary 06/08/24 MR#: [id number] Acct: [id number] Name: KATRINA SERRANO Rep #: [id number] : 1955 68 From: Indu Anderson DO [...] Patient is on Xarelto for atrial fibrillation. 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 Normal [facility] Absolute neutrophil countOrd ered By: Alexandrabelkis Baker on 05-13-2024 Neutrophils (Bld) [#/Vol] 5.3 10*3/uL 2.0-7.7 [facility] Albumin to globulin ratioOrd ered By: Alexandrabelkis Baker on 05-13-2024 Albumin/Globulin [Mass ratio] 0.9 {ratio} 0.9-2.4 [facility] Basophil percentageOrdered B y: Alexandra Baker on 05-13-2024 Basophils/100 WBC (Bld) 0.3 % 0-1 [facility] Bilirubin, totalOrdered By: [facility] Samuel on 05-13-2024 Bilirubin [Mass/Vol] 0.20 mg/dL 0.20-1.00 [facility] Comment on above: For patients on eltr ombopag therapy, use of Dimension [place] TBIL is not recommended. Blood urea nitrogen (BUN)/cr eatinine ratioOrdered By: Alexandra Baker on 05-13-2024 Urea nitrogen/Creatinine [Mass ratio] 15.9 mg/mg 10-20 [facility] CBC W/Diff, Automatedon Absolute Lymph 1.13 X10 3/uL Normal 0.83-4.51 [facility] Comment on above: Performed By: #### L 500.4050, L100.0100 #### [facility] [address] [place], [address] Absolute Neut 5.3 X10 3/uL Normal 2.0-7.7 [facility] Comment on above: Performed By: #### L 500.4050, L100.0100 #### [facility] [address] [place], [address] Basophils/100 WBC (Bld) 0.3 % Normal 0-1 [facility] Comment on above: Performed By: #### L 500.4050, L100.0100 #### [facility] [address] [place], [address] Eosinophils/100 WBC (Bld) 0.3 % Normal 0-5 [facility] Comment on above: Performed By: #### L 500.4050, L100.0100 #### [facility] [address] [place], [address] Erythrocyte distribution width (RBC) [Ratio] 13.6 % Normal 11.6-14.6 [facility] Comment on above: Performed By: #### L 500.4050, L100.0100 #### [facility] [address] [place], [address] Hematocrit (Bld) [Volume fraction] 37.1 % Normal 37-47 [facility] Comment on above: Performed By: #### L 500.4050, L100.0100 #### [facility] [address] [place], [address] Hemoglobin (Bld) [Mass/Vol] 11.5 g/dL Low 12.0-15.0 [facility] Comment on above: Performed By: #### L 500.4050, L100.0100 #### [facility] [address] [place], [address] IG% 0.600 Normal 0.0-0.9 [facility] Comment on above: Result Comment: IG% - Immature Granulocytes (promyelocytes, myelocytes and metamyelocytes) > 1% indicates that a LEFT SHIFT is Present. Performed By: #### L 500.4050, L100.0100 #### [facility] [address] [place], [address] Lymphocytes/100 WBC (Bld) 16.5 % Low 19-41 [facility] Comment on above: Performed By: #### L 500.4050, L100.0100 #### [facility] [address] [place], [address] MCH (RBC) [Entitic mass] 30.1 pg Normal 27.0-32.0 [facility] Comment on above: Performed By: #### L 500.4050, L100.0100 #### [facility] [address] [place], [address] MCHC (RBC) [Mass/Vol] 31.0 g/dL Low 32-36 [facility] Comment on above: Performed By: #### L 500.4050, L100.0100 #### [facility] [address] [place], [address] MCV (RBC) [Entitic vol] 97.1 fL Normal 81-99 [facility] Comment on above: Performed By: #### L 500.4050, L100.0100 #### [facility] [address] [place], [address] Monocytes/100 WBC (Bld) 5.1 % Normal 0-10 [facility] Comment on above: Performed By: #### L 500.4050, L100.0100 #### [facility] [address] [place], [address] Neutrophils/100 WBC (Bld) 77.2 % High 47-70 [facility] Comment on above: Performed By: #### L 500.4050, L100.0100 #### [facility] [address] [place], [address] Nucleated RBC (Bld) [#/Vol] 0 10*3/uL Normal 0-5 [facility] Comment on above: Performed By: #### L 500.4050, L100.0100 #### [facility] [address] [place], [address] Platelet mean volume (Bld) [Entitic vol] 9.9 fL Normal 6.2-12.0 [facility] Comment on above: Performed By: #### L 500.4050, L100.0100 #### [facility] [address] [place], [address] Platelets (Bld) [#/Vol] 283 10*3/uL Normal 150-450 [facility] Comment on above: Performed By: #### L 500.4050, L100.0100 #### [facility] [address] [place], [address] RBC (Bld) [#/Vol] 3.82 10*6/uL Low 4.2-5.4 [facility] Comment on above: Performed By: #### L 500.4050, L100.0100 #### [facility] [address] [place], [address] RDW SD 48.4 fl High 35.1-43.9 [facility] Comment on above: Performed By: #### L 500.4050, L100.0100 #### [facility] [address] [place], [address] WBC (Bld) [#/Vol] 6.8 10*3/uL Normal 4.4-11.0 [facility] Comment on above: Performed By: #### L 500.4050, L100.0100 #### [facility] [address] [place], [address] Carbon dioxide measurementOr dered By: Alexandra Baker on 05-13-2024 CO2 [Moles/Vol] 30.0 mmol/L 21.0-32.0 [facility] Chloride measurementOrdered By: Alexandra Baker on 05-13-2024 Chloride [Moles/Vol] 106 mmol/L 98-107 [facility] Comprehensive Metabolic Prof ilon 05-13-2024 Albumin [Mass/Vol] 3.4 g/dL Normal 3.2-5.0 [facility] Comment on above: Performed By: #### L 500.4050, L100.0100 #### [facility] [address] [place], [address] Albumin/Globulin [Mass ratio] 0.9 {ratio} Normal 0.9-2.4 [facility] Comment on above: Performed By: #### L 500.4050, L100.0100 #### [facility] [address] [place], [address] ALK P 126 U/L High 45-117 [facility] Comment on above: Performed By: #### L 500.4050, L100.0100 #### [facility] [address] [place], [address] ALT [Catalytic activity/Vol] 19 U/L Normal 13-56 [facility] Comment on above: Performed By: #### L 500.4050, L100.0100 #### [facility] [address] [place], [address] AST [Catalytic activity/Vol] 14 U/L Low 15-37 [facility] Comment on above: Performed By: #### L 500.4050, L100.0100 #### [facility] [address] [place], [address] Bilirubin [Mass/Vol] 0.20 mg/dL Normal 0.20-1.00 [facility] Comment on above: Result Comment: For patients on eltrombopag therapy, use of Dimension [place] TBIL is not recommended. Performed By: #### L 500.4050, L100.0100 #### [facility] [address] [place], [address] BUN/CRE 15.9 RATIO Normal 10-20 [facility] Comment on above: Performed By: #### L 500.4050, L100.0100 #### [facility] [address] [place], [address] CA,Total 9.4 mg/dL Normal 8.5-10.1 [facility] Comment on above: Performed By: #### L 500.4050, L100.0100 #### [facility] [address] [place], [address] Chloride [Moles/Vol] 106 mmol/L Normal 98-107 [facility] Comment on above: Performed By: #### L 500.4050, L100.0100 #### [facility] [address] [place], [address] CO2 [Moles/Vol] 30.0 mmol/L Normal 21.0-32.0 [facility] Comment on above: Performed By: #### L 500.4050, L100.0100 #### [facility] [address] [place], [address] Creatinine [Mass/Vol] 1.26 mg/dL High 0.55-1.02 [facility] Comment on above: Result Comment: The validity of the calculated GFR GFRAA in patients over 70 years has not been determined. Clinical correlation is essential. Performed By: #### L 500.4050, L100.0100 #### [facility] [address] [place], [address] EST GFR - AA 54 mL/min Low >60 [facility] Comment on above: Result Comment: Afri can Peruvian GFR Calc Performed By: #### L 500.4050, L100.0100 #### [facility] [address] [place], [address] GAP 2 Low 5-15 [facility] Comment on above: Performed By: #### L 500.4050, L100.0100 #### [facility] [address] [place], [address] GFR/1.73 sq M.predicted among non-blacks MDRD (S/P/Bld) [Vol rate/Area] 45 mL/min/{1.73_m2} Low >60 [facility] Comment on above: Result Comment: Non- GFR Calc Performed By: #### L 500.4050, L100.0100 #### [facility] [address] [place], [address] Globulin (S) [Mass/Vol] 3.8 g/dL Normal 2.2-4.2 [facility] Comment on above: Performed By: #### L 500.4050, L100.0100 #### [facility] [address] [place], [address] Glucose [Mass/Vol] 86 mg/dL Normal 74-106 [facility] Comment on above: Performed By: #### L 500.4050, L100.0100 #### [facility] [address] [place], [address] Potassium [Moles/Vol] 4.0 mmol/L Normal 3.5-5.1 [facility] Comment on above: Performed By: #### L 500.4050, L100.0100 #### [facility] [address] [place], [address] Sodium [Moles/Vol] 139 mmol/L Normal 136-145 [facility] [facility] Comment on above: Performed By: #### L 500.4050, L100.0100 #### [facility] [address] [place], [address] T PROT 7.2 g/dL Normal 6.4-8.2 [facility] Comment on above: Performed By: #### L 500.4050, L100.0100 #### [facility] [address] [place], [address] Urea nitrogen [Mass/Vol] 20 mg/dL High 7-18 [facility] Comment on above: Performed By: #### L 500.4050, L100.0100 #### [facility] [address] [place], [address] Eosinophil percentageOrdered By: Alexandra Baker on 05-13-2024 Eosinophils/100 WBC (Bld) 0.3 % 0-5 [facility] Erythrocyte distribution wid th ratioOrdered By: Alexandra Baker on 05-13-2024 Erythrocyte distribution width (RBC) [Ratio] 13.6 % 11.6-14.6 [facility] Erythrocyte distribution wid th standard deviationOrdered By: Alexandra Baker on 05-13-2024 Erythrocyte distribution width (RBC) [Entitic vol] 48.4 fL High 35.1-43.9 [facility] Estimated glomerular filtrat ion rate (GFR) AmericanOrdered By: Alexandra Baker on 05-13-2024 Estimated GFR (MDRD) Amer 54 mL/min Low >60 [facility] Comment on above: GFR Calc Glomerular filtration rate ( GFR) estimationOrdered By: Alexandra Baker on 05-13-2024 Estimated GFR (MDRD) Non-Af Amer 45 mL/min Low >60 [facility] Comment on above: Non- GFR Calc Glucose measurementOrdered B y: Alexandra Baker on 05-13-2024 Glucose [Mass/Vol] 86 mg/dL 74-106 [facility] Hematocrit Auto (Bld) [Volum e fraction]Ordered By: Alexandra Baker on 05-13-2024 Hematocrit (Bld) [Volume fraction] 37.1 % 37-47 [facility] Hemoglobin measurementOrdere d By: Alexandra Baker on 05-13-2024 Hemoglobin (Bld) [Mass/Vol] 11.5 g/dL Low 12.0-15.0 [facility] Immature granulocytes/100 WB C Auto (Bld)Ordered By: Alexandra Baker on 05-13-2024 Immature granulocytes/100 WBC (Bld) 0.600 % 0.0-0.9 [facility] Comment on above: IG% - Immature Granu locytes (promyelocytes, myelocytes and metamyelocytes) > 1% indicates that a LEFT SHIFT is Present. Laboratory - Chemistry and C hemistry - challengeOrdered By: Alexandra Baker on 05-13-2024 AST [Catalytic activity/Vol] 14 U/L Low 15-37 [facility] Lymphocytes Auto (Unsp spec) [#/Vol]Ordered By: Alexandra Baker on 05-13-2024 Lymphocytes (Bld) [#/Vol] 1.13 10*3/uL 0.83-4.51 [facility] Lymphocytes/100 WBC Auto (Un sp spec)Ordered By: Alexandra Baker on 05-13-2024 Lymphocytes/100 WBC (Bld) 16.5 % Low 19-41 [facility] MCV (mean corpuscular volume ) determinationOrdered By: Alexandra Baker on 05-13-2024 MCV (RBC) [Entitic vol] 97.1 fL 81-99 [facility] Mean corpuscular hemoglobin (MCH) determinationOrdered By: Alexandra Baker on 05-13-2024 MCH (RBC) [Entitic mass] 30.1 pg 27.0-32.0 [facility] Mean corpuscular hemoglobin concentration (MCHC) determinationOrdered By: Alexandra Baker on 05-13-2024 MCHC (RBC) [Mass/Vol] 31.0 g/dL Low 32-36 [facility] Mean platelet volume determi nationOrdered By: Alexandra Baker on 05-13-2024 Platelet mean volume (Bld) [Entitic vol] 9.9 fL 6.2-12.0 [facility] Monocyte percentageOrdered B y: Alexandra Baker on 05-13-2024 Monocytes/100 WBC (Bld) 5.1 % 0-10 [facility] Neutrophil percentageOrdered By: Alexandra Baker on 05-13-2024 Neutrophils/100 WBC (Bld) 77.2 % High 47-70 [facility] Nucleated red blood cell per centageOrdered By: Alexandra Baker on 05-13-2024 Nucleated RBC/100 WBC (Bld) [Ratio] 0 % 0-5 [facility] Platelet countOrdered By: Ryan Baker on 05-13-2024 Platelets (Bld) [#/Vol] 283 10*3/uL 150-450 [facility] Potassium measurementOrdered By: Alexandra Baker on 05-13-2024 Potassium [Moles/Vol] 4.0 mmol/L 3.5-5.1 [facility] RBC Auto (Bld) [#/Vol]Ordere d By: Alexandra Baker on 05-13-2024 RBC (Bld) [#/Vol] 3.82 10*6/uL Low 4.2-5.4 [facility] Serum anion gap measurementO rdered By: Alexandra Baker on 05-13-2024 Anion gap [Moles/Vol] 2 mmol/L Low 5-15 [facility] Serum globulin measurementOr dered By: Alexandra Baker on 05-13-2024 Globulin (S) [Mass/Vol] 3.8 g/dL 2.2-4.2 [facility] Serum or plasma alanine coffey otransferase (ALT) measurementOrdered By: Alexandra Baker on 05-13-2024 ALT [Catalytic activity/Vol] 19 U/L 13-56 [facility] Serum or plasma albumin dave urement (mass/volume)Ordered By: Alexandra Baker on 05-13-2024 Albumin [Mass/Vol] 3.4 g/dL 3.2-5.0 [facility] Serum or plasma alkaline tim sphatase measurementOrdered By: Alexandra Baker on 05-13-2024 ALP [Catalytic activity/Vol] 126 U/L High 45-117 [facility] Serum or plasma calcium dave urement (mass/volume)Ordered By: Alexandra Baker on 05-13-2024 Calcium [Mass/Vol] 9.4 mg/dL 8.5-10.1 [facility] Serum or plasma creatinine m easurement (mass/volume)Ordered By: Alexandra Baker on 05-13-2024 Creatinine [Mass/Vol] 1.26 mg/dL High 0.55-1.02 [facility] Comment on above: The validity of the calculated GFR & GFRAA in patients over 70 years has not been determined. Clinical correlation is essential. Serum or plasma urea nitroge n measurement (mass/volume)Ordered By: Alexandra Baker on 05-13-2024 Urea nitrogen [Mass/Vol] 20 mg/dL High 7-18 [facility] Sodium levelOrdered By: Sofia Baker on 05-13-2024 Sodium [Moles/Vol] 139 mmol/L 136-145 [facility] Total proteinOrdered By: Daniel Baker on 05-13-2024 Protein [Mass/Vol] 7.2 g/dL 6.4-8.2 [facility] White blood cell (WBC) count Ordered By: Alexandra Manceraclaudia on 05-13-2024 WBC (Bld) [#/Vol] 6.8 10*3/uL 4.4-11.0 [facility] CNOVon 05-10-2024 CNOV Office Visit (PODIWS ) KATRINA SERRANO ([id number]) 1955 F Date Time Provider Department 05/10/24 [...] with: Right Foot - Numbness, New, Pain SKYE Aparicio Matthew 05/10/2024 9:24 AM Signed Consultation requested by [...] EGD TRANSORAL BIOPSY SINGLE/MULTIPLE 06/16/2010 EGD W/O [facility] SPEC VARICIES INJ 11/17/2021 EXC NEUROMA HAND/FOOT [...] SIGMOIDOSCOPY FLX (more content not included)... Normal [facility] CNOVon 05-09-2024 CNOV Office Visit (UCWSTR ) KATRINA SERRANO ([id number]) 1955 F Date Time Provider Department 05/09/24 10:45 AM TIMA LÓPEZ [facility] During your visit today, we recorded the following information about you: Temperature Pulse Respiration Blood pressure 97.2 degrees 75/minute 22/minute 98/64 Weight 88.3 kg Tima López, SANJAY.QUALITY ENGINEER [employer]ICAL [employer]ICE 05/09/2024 11:44 AM Signed Subjective Female with [...] history is provided by the patient. No american sign language teacher was used. Pain (foot) Review of Systems [...] EGD TRANSORAL BIOPSY SINGLE/MULTIPLE 06/16/2010 [facility] 11/17/2021 EXC NEUROMA HAND/FOOT [...] pk-yrs) Type (more content not included)... Normal [facility] XR FOOT 3V AP/LAT/OBL RTon 0 05-09-2024 [...] fracture or malalignment of the right foot. Hair Cutter: LISA Transcribe Date/Time: May 09 2024 11:22A Dictated by : JADA ENGLISH MD This examination was interpreted and the report reviewed and electronically signed by: JADA ENGLISH MD on May 09 2024 11:24AM EST [id number] Normal [facility] XR Foot - right AP and Later al and obliqueon 05-09-2024 IMPRESSION: Negative for acute fracture or malalignment of the right foot. Hair Cutter: [facility] Transcribe Date/Time: May 09 2024 11:22A Dictated [...] radiopaque foreign body. DIVISION OF RADIOLOGY Provider, [facility] - 05/09/2024 * * *Final Report* * [...] fracture or malalignment of the right foot. Hair Cutter: PSCB Transcribe Date/Time: May 09 2024 11:22A Dictated by : JADA ENGLISH MD This examination was interpreted and the report reviewed and electronically signed by: JADA ENGLISH MD on May 09 2024 11:24AM [facility] Radiology Study observation (narrative) [facility] XR Foot - right AP and Later al and obliqueOrdered By: Ccf Provider on 05-09-2024 [facility] CNOVon 04-17-2024 CNOV Office Visit (FAMMAS ) KATRINA SERRANO ([id number]) 1955 F Date Time Provider Department 04/17/24 3:50 PM DENNIS MARCIAL FAMAZS During your visit today, we recorded the [...] current complaints or concerns. Declined sensitive Stephane Ibrahim, CARDIOVASCULAR TECH April 17, 2024 3:17 PM Dennis Marcial [...] tablets by mouth (more content not included)... [facility] 02-13-2024 AMAIRANI Telephone (CausecastS) MAGGIEKATRINA ([id number]) 1955 F Date Time Provider Department 02/13/24 DENNIS MARCIAL During your visit today, we recorded the following information about you: Ana Julian LPN 02/13/2024 9:[address] Marcial regarding patient's recent test results: CBC and iron much improved. I attempted to call patient Piotr. No answer. I left a voice mail message for patient to return call to office. Ana Julian LPN February 13, 2024 9:13 AM Ana Julian LPN 02/14/2024 11:45 AM Signed I attempted to call patient Piotr. No answer. I left a voice mail message for patient to return call to office. Ana Julian LPN February 14, 2024 11:45 AM Ana Julian LPN 02/22/2024 1:34 PM Signed I spoke to patient Piotr and advised her per Dr Marcial's notes. Patient did voice understanding and she is very thankful. Ana Julian LPN February 22, 2024 1:34 PM Allergies [...] Depression [F32.A] 03/08/2017 Degeneration of intervertebral disc [YYG8903] 07/08/2022 Contusion of knee and lower leg [S80.00XA, S80.*07/08/2022 Atherosclerosis of aorta (HCC) [I70.0] 07/08/2022 Restless leg syndrome [G25.81] 07/08/2022 Steatosis of liver [K76.0] 07/08/2022 Pancytopenia (HCC) [D61.818] 07/08/2022 Pure hypercholesterolemia, u (more content not included)... Normal [facility] CBC W Auto Differential pane l (Bld)Ordered By: Oly Bonds on 02-12-2024 Basophils (Bld) [#/Vol] 0.03 10*3/uL [facility] Basophils/100 WBC (Bld) 0.7 % [facility] Differential cell count method Nom (Bld) Auto [facility] Eosinophils (Bld) [#/Vol] 0.20 10*3/uL [facility] Eosinophils/100 WBC (Bld) 4.9 % [facility] Erythrocyte distribution width (RBC) [Ratio] 13.9 % 11.5 - 15.0 % [facility] Hematocrit (Bld) [Volume fraction] 36.0 % 36.0 - 46.0 % [facility] Hemoglobin (Bld) [Mass/Vol] 11.3 g/dL Low 11.5 - 15.5 g/dL [facility] Immature granulocytes (Bld) [#/Vol] [facility] Immature granulocytes/100 WBC (Bld) 0.0 % [facility] Interpretation and review of laboratory results Abnormal [facility] Lymphocytes (Bld) [#/Vol] 1.22 10*3/uL [facility] Lymphocytes/100 WBC (Bld) 29.8 % [facility] MCH (RBC) [Entitic mass] 30.5 pg 26.0 - 34.0 pg [facility] MCHC (RBC) [Mass/Vol] 31.4 g/dL 30.5 - 36.0 g/dL [facility] MCV (RBC) [Entitic vol] 97.0 fL 80.0 - 100.0 fL [facility] Monocytes (Bld) [#/Vol] 0.39 10*3/uL [facility] Monocytes/100 WBC (Bld) 9.5 % [facility] Neutrophils (Bld) [#/Vol] 2.26 10*3/uL [facility] Neutrophils/100 WBC (Bld) 55.1 % [facility] Platelet mean volume (Bld) [Entitic vol] 9.4 fL 9.0 - 12.7 fL [facility] Platelets (Bld) [#/Vol] 236 10*3/uL [facility] RBC (Bld) [#/Vol] 3.71 10*6/uL Low 3.90 - 5.2 0 m/uL [facility] WBC (Bld) [#/Vol] 4.10 10*3/uL [facility] CBC W Auto Differential pane l (Bld)on 02-12-2024 Basophils (Bld) [#/Vol] 0.03 10*3/uL Normal <0.11 [facility] Comment on above: Order Comment: Speci men Type: BLOOD SPECIMEN Ordering Facility: [facility] Address: [address] [place] [address] Performed By: #### 5 7021-8 #### [facility] CLIA [id number] [address] [place] [address] [place] Basophils/100 WBC (Bld) 0.7 % Normal [facility] Comment on above: Order Comment: Speci men Type: BLOOD SPECIMEN Ordering Facility: [facility] Address: [address] [place] [address] Performed By: #### 5 7021-8 #### [facility] CLIA [id number] [address] [place] [address] [place] Differential cell count method Nom (Bld) Auto Normal [facility] Comment on above: Order Comment: Speci men Type: BLOOD SPECIMEN Ordering Facility: [facility] Address: [address] [place] [address] Performed By: #### 5 7021-8 #### [facility] CLIA [id number] [address] [place] [address] [place] Eosinophils (Bld) [#/Vol] 0.20 10*3/uL Normal <0.46 [facility] Comment on above: Order Comment: Speci men Type: BLOOD SPECIMEN Ordering Facility: [facility] Address: [address] [place] [address] Performed By: #### 5 7021-8 #### [facility] CLIA [id number] [address] [place], [place] [address] [place] Eosinophils/100 WBC (Bld) 4.9 % Normal [facility] Comment on above: Order Comment: Speci men Type: BLOOD SPECIMEN Ordering Facility: [facility] Address: [address] [place] [address] Performed By: #### 5 7021-8 #### [facility] CLIA [id number] [address] [place] [address] [place] Erythrocyte distribution width (RBC) [Ratio] 13.9 % Normal 11.5-15.0 [facility] Comment on above: Order Comment: Speci men Type: BLOOD SPECIMEN Ordering Facility: [facility] Address: [address] [place] [address] Performed By: #### 5 7021-8 #### [facility] CLIA [id number] [address] [place] [address] [place] Hematocrit (Bld) [Volume fraction] 36.0 % Normal 36.0-46.0 [facility] Comment on above: Order Comment: Speci men Type: BLOOD SPECIMEN Ordering Facility: [facility] Address: [address] [place] [address] Performed By: #### 5 7021-8 #### [facility] CLIA [id number] [address] [place] [address] [place] Hemoglobin (Bld) [Mass/Vol] 11.3 g/dL Low 11.5-15.5 [facility] Comment on above: Order Comment: Speci men Type: BLOOD SPECIMEN Ordering Facility: [facility] Address: [address] [place] [address] Performed By: #### 5 7021-8 #### [facility] CLIA [id number] [address] [place] [address] [place] Immature granulocytes (Bld) [#/Vol] 10*3/uL Normal <0.10 [facility] Comment on above: Order Comment: Speci men Type: BLOOD SPECIMEN Ordering Facility: [facility] Address: [address] [place] [address] Performed By: #### 5 7021-8 #### [facility] CLIA [id number] Replaced by [facility] STATES [facility] Immature granulocytes/100 WBC (Bld) 0.0 % Normal [facility] Comment on above: Order Comment: Speci men Type: BLOOD SPECIMEN Ordering Facility: [facility] Address: [address] [place] [address] Performed By: #### 5 7021-8 #### [facility] CLIA [id number] [address] [place] [address] [place] Lymphocytes (Bld) [#/Vol] 1.22 10*3/uL Normal 1.00-4.00 [facility] Comment on above: Order Comment: Speci men Type: BLOOD SPECIMEN Ordering Facility: [facility] Address: [address] [place] [address] Performed By: #### 5 7021-8 #### [facility] CLIA [id number] [address] [place] [address] [place] [facility] Lymphocytes/100 WBC (Bld) 29.8 % Normal [facility] Comment on above: Order Comment: Speci men Type: BLOOD SPECIMEN Ordering Facility: [facility] Address: [address] [place] [address] Performed By: #### 5 7021-8 #### [facility] CLIA [id number] [address] [place] [address] [place] MCH (RBC) [Entitic mass] 30.5 pg Normal 26.0-34.0 [facility] Comment on above: Order Comment: Speci men Type: BLOOD SPECIMEN Ordering Facility: [facility] Address: [address] [place] [address] Performed By: #### 5 7021-8 #### [facility] CLIA [id number] [address] [place] [address] STATES [facility] MCHC (RBC) [Mass/Vol] 31.4 g/dL Normal 30.5-36.0 [facility] Comment on above: Order Comment: Speci men Type: BLOOD SPECIMEN Ordering Facility: [facility] Address: [address] [place] [address] Performed By: #### 5 7021-8 #### [facility] CLIA [id number] [address] [place], [place] [address] [place] MCV (RBC) [Entitic vol] 97.0 fL Normal 80.0-100.0 [facility] Comment on above: Order Comment: Speci men Type: BLOOD SPECIMEN Ordering Facility: [facility] Address: [address] [place] [address] Performed By: #### 5 7021-8 #### [facility] CLIA [id number] [address] [place] [address] [place] Monocytes (Bld) [#/Vol] 0.39 10*3/uL Normal <0.87 [facility] Comment on above: Order Comment: Speci men Type: BLOOD SPECIMEN Ordering Facility: [facility] Address: [address] [place] [address] Performed By: #### 5 7021-8 #### [facility] CLIA [id number] [address] [place] [address] [place] Monocytes/100 WBC (Bld) 9.5 % Normal [facility] Comment on above: Order Comment: Speci men Type: BLOOD SPECIMEN Ordering Facility: [facility] Address: [address] [place] [address] Performed By: #### 5 7021-8 #### [facility] CLIA [id number] [address] [place] [address] [place] Neutrophils (Bld) [#/Vol] 2.26 10*3/uL Normal 1.45-7.50 [facility] Comment on above: Order Comment: Speci men Type: BLOOD SPECIMEN Ordering Facility: [facility] Address: [address] [place] [address] Performed By: #### 5 7021-8 #### [facility] CLIA [id number] [address] [place] [address] [place] Neutrophils/100 WBC (Bld) 55.1 % Normal [facility] Comment on above: Order Comment: Speci men Type: BLOOD SPECIMEN Ordering Facility: [facility] Address: [address] [place] [address] Performed By: #### 5 7021-8 #### [facility] CLIA [id number] [address] [place], [place] [address] [place] Platelet mean volume (Bld) [Entitic vol] 9.4 fL Normal 9.0-12.7 [facility] Comment on above: Order Comment: Speci men Type: BLOOD SPECIMEN Ordering Facility: [facility] Address: [address] [place] [address] Performed By: #### 5 7021-8 #### [facility] CLIA [id number] [address] [place] [address] [place] Platelets (Bld) [#/Vol] 236 10*3/uL Normal 150-400 [facility] Comment on above: Order Comment: Speci men Type: BLOOD SPECIMEN Ordering Facility: [facility] Address: [address] [place] [address] Performed By: #### 5 7021-8 #### [facility] CLIA [id number] [address] [place], [place] [address] [place] RBC (Bld) [#/Vol] 3.71 10*6/uL Low 3.90-5.20 [facility] Comment on above: Order Comment: Speci men Type: BLOOD SPECIMEN Ordering Facility: [facility] Address: [address] [place] [address] Performed By: #### 5 7021-8 #### [facility] CLIA [id number] [address] [place] [address] [place] WBC (Bld) [#/Vol] 4.10 10*3/uL Normal 3.70-11.00 [facility] Comment on above: Order Comment: Speci men Type: BLOOD SPECIMEN Ordering Facility: [facility] Address: [address], [place] [address] Performed By: #### 5 7021-8 #### [facility] CLIA [id number] [address] [place] [address] [facility] CNOVon 02-12-2024 CNOV Office Visit (FAMMAS ) KATRINA SERRANO ([id number]) 1955 F Date Time Provider Department 02/12/24 [...] MD 02/12/2024 1:00 PM Signed Subjective Katrina Sanket Maggie is a 68 year old female.The patient [...] day. pantopra (more content not included)... Normal [facility] Iron and Iron binding capaci ty panelon 02-12-2024 Iron [Mass/Vol] 87 ug/dL 50 - 170 ug/dL [facility] Comment on above: Patients treated wit h metal-binding drugs (e.g.deferoxamine) may have depressed iron values, as chelated iron may not properly react in the Siemens iron assay. Iron binding capacity [Mass/Vol] 304 ug/dL 221 - 481 ug/dL [facility] Iron/TIBC [Molar ratio] 28.6 % 22.0 - 44.0 % [facility] Iron [Mass/Vol] 87 ug/dL Normal 50-170 [facility] Comment on above: Order Comment: Speci men Type: BLOOD SPECIMEN Ordering Facility: [facility] Address: [address] [place] [address] Result Comment: Rose ents treated with metal-binding drugs (e.g.deferoxamine) may have depressed iron values, as chelated iron may not properly react in the Siemens iron assay. Performed By: #### 5 0190-8, 74533-3 #### [facility] CLIA [id number] [address] [place] [address] Iron binding capacity [Mass/Vol] 304 ug/dL Normal 221-481 [facility] Comment on above: Order Comment: Suma cho Type: BLOOD SPECIMEN Ordering Facility: [facility] Address: [address] [place] [address] Performed By: #### 5 0190-8, #### [facility] CLIA [id number] [address] [place] [address] Iron/TIBC [Molar ratio] 28.6 % Normal 22.0-44.0 [facility] Comment on above: Order Comment: Suma cho Type: BLOOD SPECIMEN Ordering Facility: [facility] Address: [address] [place] [address] Performed By: #### 5 0190-8, #### [facility] CLIA [id number] [address] [place] [address] [place] MAGNESIUMon 02-12-2024 Magnesium [Mass/Vol] 1.8 mg/dL 1.6 - 2 .6 mg/dL [facility] Magnesium SerPl-mCncon 02-11 Magnesium [Mass/Vol] 1.8 mg/dL Normal 1.6-2.6 [facility] Comment on above: Order Comment: Suma cho Type: BLOOD SPECIMEN Ordering Facility: [facility] Address: [address] [place] [address] Performed By: #### 5 0190-8, 66613-3 #### [facility] CLIA [id number] [address] [place] [address] [place] No Panel Informationon 02-11 Interpretation and review of laboratory results Normal [facility] CNPNon 02-08-2024 CNPN Telephone ([facility]) MAGGIEKATRINA ([id number]) 1955 F Date Time Provider Department 02/08/24 OSCAR MIRELES During your visit today, we recorded the following information about you: Eden Juan MA 02/08/2024 11:52 AM Signed Pt calling to inquire about getting pulmonary surgical clearance for insertion of stimulator implant for pain. [facility]. Does pt need appt to be cleared? Any additional testing? CASTILLO 12/2023 Last Oximetry with ambulation 12/2022 Please review and advise. BELKIS Matta Kathleen, LPN 02/08/2024 12:07 PM Signed Surgical clearance form from [facility] currently in provider's mailbox for review. SKYE Garcia Kathleen, LPN 02/12/2024 9:59 AM Signed Faxed Maki Mackay LPN Allergies As of Date: 02/08/2024 (No Known Allergies) Date Reviewed: 01/20/2024 Reviewed by: Marycarmen Yates MA - Fully Assessed Reason for Visit: Patient Question [8067] Prescriptions as of 02/12/2024 - sertraline (ZOLOFT) [...] Depression [F32.A] 03/08/2017 Degeneration of intervertebral disc [KBT3530] 07/08/2022 Contusion of knee and lower leg [S80.00XA, S80.*07/08/2022 Atherosclerosis of aorta (HCC) [I70.0] 07/08/2022 Restless leg syndrome [G25.81] 07/08/2022 Steatosis of liver [K76.0] 07/08/2022 Pancytopenia (HCC) [D61.818] 07/08/2022 Pure hypercholesterolemia, unspecified [E78.00] 03/30/2021 Radia (more content not included)... [facility] KATRINA SERRANO ([id number]) 1955 F Date Time Provider Department 01/25/24 DENNIS MARCIAL [facility] During your visit today, we recorded [...] 07/08/2022 Insomnia [G47.00] (more content not included)... 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 Normal [facility] CNPNon 01-22-2024 [facility] Telephone (FAMMAS) KATRINA SERRANO ([id number]) 1955 F Date Time Provider Department 01/22/24 [...] Olivera LPN January 22, 2024 6:17 PM Allergies As [...] Depression [F32.A] 03/08/2017 Degeneration of intervertebral disc [JOG8554] 07/08/2022 Contusion of knee and lower leg [S80.00XA, S80.*07/08/2022 Atherosclerosis of aorta (HCC) [I70.0] 07/08/2022 Restless leg syndrome [G25.81] 07/08/2022 Steatosis of liver [K76.0] 07/08/2022 Pancytopenia (HCC) [D61.818] 07/08/2022 Pure hypercholesterolemia, unspecified [E78.00] 03/30/2021 Radiation pneumonitis (HCC) [J70.0] 07/08/2022 Rib pain [R07.81] 07/08/2022 Sinusitis [J32.9] 07/08/2022 Stage III squamous cell carcinoma of lung (HCC)*07/08/2022 Transient hypotension [I95.9] 07/08/2022 Vitamin (more content not included)... [facility] Bacteria Ur Culton Bacteria identified Cx Nom (U) CULTURE, URINE: [...] , Intermediate >32 , Resistant >64 Abnormal [facility] Comment on above: Performed By: #### 6 30-4 ####[facility] LABCLIA [id number] [address] OF [facility] CNOVon 01-20-2024 CNOV Office Visit (UCWSTR ) BARRETT SERRANOH Sanket ([id number]) 1955 F Date Time Provider Department 01/20/24 10:00 AM JASPREET CURTIS [facility] During your visit today, we recorded the following information about you: Temperature Pulse Respiration Blood pressure 96.6 degrees 78/minute 16/minute 112/64 Weight 87.2 kg Jaspreet Curtis APRN.QUALITY ENGINEER MEDICAL DEVICE 01/20/2024 10:50 AM Signed Subjective HPI Katrina Sanket Maggie is a 68 year old female who [...] EGD TRANSORAL BIOPSY SINGLE/MULTIPLE 06/16/2010 EGD W/O [facility] SPEC VARICIES INJ 11/17/2021 EXC NEUROMA HAND/FOOT [...] History Socia (more content not included)... Normal [facility] DIP B/Oon 01-20-2024 Bilirubin Ql (U) Negative Neg [facility] Color/Appearance Yellow/Clear comment: [facility] Glucose Ql (U) Negative Neg mg/dL [facility] Hemoglobin Ql (U) Large Abnormal Neg [facility] Interpretation and review of laboratory results Abnormal [facility] Ketones Ql (U) Negative Neg [facility] Leukocytes Moderate Abnormal Neg [facility] Nitrite Ql (U) Negative Neg [facility] pH (U) 6.0 [pH] 4.5 - 8.0 [facility] Protein.monoclonal (U) [Mass/Vol] Negative Neg mg/dL [facility] Specific [place], Ur 1.0 Abnormal 1.005 - 1.030 [facility] Urobilinogen, Urine Negative Normal (<1.1) EU [facility] Basic Metabolic Profile (BMP )on 12-19-2023 BUN/CRE 17.2 RATIO Normal 10-20 [facility] Comment on above: Performed By: #### L 500.2500, L501.9520, L100.0100 ####[facility] [address] [place], [address] CA,Total 9.5 mg/dL Normal 8.5-10.1 [facility] Comment on above: Performed By: #### L 500.2500, L501.9520, L100.0100 ####[facility] [address] [place], [address] Chloride [Moles/Vol] 106 mmol/L Normal 98-107 [facility] Comment on above: Performed By: #### L 500.2500, L501.9520, L100.0100 ####[facility] [address] [place], [address] CO2 [Moles/Vol] 30.0 mmol/L Normal 21.0-32.0 [facility] Comment on above: Performed By: #### L 500.2500, L501.9520, L100.0100 ####[facility] [address] [place], [address] Creatinine [Mass/Vol] 1.28 mg/dL High 0.55-1.02 [facility] Comment on above: Result Comment: The validity of the calculated GFR GFRAA in patients over 70 years has not been determined. Clinical correlation is essential. Performed By: #### L 500.2500, L501.9520, L100.0100 ####[facility] [address] [place], [address] EST GFR - AA 53 mL/min Low >60 [facility] Comment on above: Result Comment: Afri can [place]uvian GFR Calc Performed By: #### L 500.2500, L501.9520, L100.0100 ####[facility] [address] [place], [address] GAP 3 Low 5-15 [facility] Comment on above: Performed By: #### L 500.2500, L501.9520, L100.0100 ####[facility] [address] [place], [address] GFR/1.73 sq M.predicted among non-blacks MDRD (S/P/Bld) [Vol rate/Area] 44 mL/min/{1.73_m2} Low >60 [facility] Comment on above: Result Comment: Non- GFR Calc Performed By: #### L 500.2500, L501.9520, L100.0100 ####[facility] [address] [place], [address] Glucose [Mass/Vol] 105 mg/dL Normal 74-106 [facility] Comment on above: Result Comment: Fast ing Glucose result from 100 to 125 mg/dL suggests IMPAIRED HOMEOSTASIS per A.D.A. criteria. Performed By: #### L 500.2500, L501.9520, L100.0100 ####[facility] [address] [place], [address] Potassium [Moles/Vol] 3.9 mmol/L Normal 3.5-5.1 [facility] Comment on above: Performed By: #### L 500.2500, L501.9520, L100.0100 ####[facility] [address] [place], [address] Sodium [Moles/Vol] 139 mmol/L Normal 136-145 [facility] Comment on above: Performed By: #### L 500.2500, L501.9520, L100.0100 ####[facility] [address] [place], [address] Urea nitrogen [Mass/Vol] 22 mg/dL High 7-18 [facility] Comment on above: Performed By: #### L 500.2500, L501.9520, L100.0100 ####[facility] [address] [place], [address] CBC W/Diff, Automatedon 08-05 10-2023 Absolute Lymph 1.24 X10 3/uL Normal 0.83-4.51 [facility] Comment on above: Performed By: #### L 500.2500, L501.9520, L100.0100 ####[facility] [address] [place], [address] Absolute Neut 2.9 X10 3/uL Normal 2.0-7.7 [facility] Comment on above: Performed By: #### L 500.2500, L501.9520, L100.0100 ####[facility] [address] [place], [address] Basophils/100 WBC (Bld) 0.6 % Normal 0-1 [facility] Comment on above: Performed By: #### L 500.2500, L501.9520, L100.0100 ####[facility] [address] [place], [address] Eosinophils/100 WBC (Bld) 4.3 % Normal 0-5 [facility] Comment on above: Performed By: #### L 500.2500, L501.9520, L100.0100 ####[facility] [address] [place], [address] Erythrocyte distribution width (RBC) [Ratio] 13.1 % Normal 11.6-14.6 [facility] Comment on above: Performed By: #### L 500.2500, L501.9520, L100.0100 ####[facility] [address] [place], [address] Hematocrit (Bld) [Volume fraction] 36.8 % Low 37-47 [facility] Comment on above: Performed By: #### L 500.2500, L501.9520, L100.0100 ####[facility] [address] [place], [address] Hemoglobin (Bld) [Mass/Vol] 11.5 g/dL Low 12.0-15.0 [facility] Comment on above: Performed By: #### L 500.2500, L501.9520, L100.0100 ####[facility] [address] [place], [address] IG% 0.400 Normal 0.0-0.9 [facility] Comment on above: Result Comment: IG% - Immature Granulocytes (promyelocytes, myelocytes and metamyelocytes) > 1% indicates that a LEFT SHIFT is Present. Performed By: #### L 500.2500, L501.9520, L100.0100 ####[facility] [address] [place], [address] Lymphocytes/100 WBC (Bld) 26.5 % Normal 19-41 [facility] Comment on above: Performed By: #### L 500.2500, L501.9520, L100.0100 ####[facility] [address] [place], [address] MCH (RBC) [Entitic mass] 30.2 pg Normal 27.0-32.0 [facility] Comment on above: Performed By: #### L 500.2500, L501.9520, L100.0100 ####[facility] [address] [place], [address] MCHC (RBC) [Mass/Vol] 31.3 g/dL Low 32-36 [facility] Comment on above: Performed By: #### L 500.2500, L501.9520, L100.0100 ####[facility] [address] [place], [address] MCV (RBC) [Entitic vol] 96.6 fL Normal 81-99 [facility] Comment on above: Performed By: #### L 500.2500, L501.9520, L100.0100 ####[facility] [address] [place], [address] Monocytes/100 WBC (Bld) 6.8 % Normal 0-10 [facility] Comment on above: Performed By: #### L 500.2500, L501.9520, L100.0100 ####[facility] [address] [place], [address] Neutrophils/100 WBC (Bld) 61.4 % Normal 47-70 [facility] Comment on above: Performed By: #### L 500.2500, L501.9520, L100.0100 ####[facility] [address] [place], [address] Nucleated RBC (Bld) [#/Vol] 0 10*3/uL Normal 0-5 [facility] Comment on above: Performed By: #### L 500.2500, L501.9520, L100.0100 ####[facility] [address] [place], [address] Platelet mean volume (Bld) [Entitic vol] 9.6 fL Normal 6.2-12.0 [facility] Comment on above: Performed By: #### L 500.2500, L501.9520, L100.0100 ####[facility] [address] [place], [address] Platelets (Bld) [#/Vol] 240 10*3/uL Normal 150-450 [facility] Comment on above: Performed By: #### L 500.2500, L501.9520, L100.0100 ####[facility] [address] [place], [address] RBC (Bld) [#/Vol] 3.81 10*6/uL Low 4.2-5.4 [facility] Comment on above: Performed By: #### L 500.2500, L501.9520, L100.0100 ####[facility] [address] [place], [address] RDW SD 46.7 fl High 35.1-43.9 [facility] Comment on above: Performed By: #### L 500.2500, L501.9520, L100.0100 ####[facility] [address] [place], [address] WBC (Bld) [#/Vol] 4.7 10*3/uL Normal 4.4-11.0 [facility] Comment on above: Performed By: #### L 500.2500, L501.9520, L100.0100 ####[facility] [address] [place], [address] Cardiology Visit Reporton Cardiology Visit Report [facility] 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 Normal [facility] Chest PA and Lateralon 12-18 Chest PA and Lateral [facility] Imaging Services [address] [place] [address] Chest PA and Lateral MR#: [id number] Acct: [id number] Name: KATRINA SERRANO Rep #: [id number] : 1955 F 68 From: Justino Bullock MD PCP: Dr. Dennis Marcial MD Status: [facility] CLI Study: Chest PA and Lateral Date of Exam: 12/19/23 Exam# [id number] Ordering Dr: Latia Titus LENS GENERATOR LENS GENERATOR- C [id number] STUDY: X-RAY CHEST REASON FOR EXAM: Female, [...] CC: RAGHU Titus; Dr. 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, [address] CBCDIF (EXTERNAL)on 10-17-19 24 Basophils/100 WBC (Bld) 0.6 % 0 - 1.5 % [facility] Eosinophils/100 WBC (Bld) 4.1 % Abnormal 1 - 3 % [facility] Erythrocyte distribution width (RBC) [Ratio] 13.2 % 11.7 - 15.0 % [facility] Hematocrit (Bld) [Volume fraction] 37.5 % Abnormal 39 - 55 % [facility] Hemoglobin (Bld) [Mass/Vol] 11.9 g/dL Abnormal 14 - 16.5 g/dL [facility] Immature Gran % 0.400 % [facility] Interpretation and review of laboratory results Abnormal [facility] Lymphocytes (Bld) [#/Vol] 1.34 10*3/uL 1.2 - 4 K/uL [facility] Lymphocytes/100 WBC (Bld) 25.9 % 20 - 30 % [facility] MCH (RBC) [Entitic mass] 30.4 pg 25.4 - 34.6 pg [facility] MCHC (RBC) [Mass/Vol] 31.7 g/dL 30 - 3 6 g/dL [facility] MCV (RBC) [Entitic vol] 95.7 fL 79 - 98 fL [facility] Monocytes/100 WBC (Bld) 7.3 % 2 - 8 % [facility] NEUT ABS 3.2 K/uL 1.9 - 8 K/uL [facility] Neutrophils/100 WBC (Bld) 61.7 % 40 - 74 % [facility] Platelet mean volume (Bld) [Entitic vol] 10.0 fL 7.4 - 10.4 fL [facility] Platelets (Bld) [#/Vol] 252 10*3/uL 140 - 440 K/uL [facility] RBC (Bld) [#/Vol] 3.92 10*6/uL Abnormal [facility] RDW-SD 46.9 [facility] WBC (Bld) [#/Vol] 5.2 10*3/uL 3.9 - 11 K/uL [facility] Scanned into chart from outside source [facility] CBC W Auto Differential pane l (Bld)on 06-21-2023 Basophils (Bld) [#/Vol] 0.05 10*3/uL <0.11 k/uL [facility] Basophils/100 WBC (Bld) 0.7 % [facility] Differential cell count method Nom (Bld) Auto [facility] Eosinophils (Bld) [#/Vol] 0.14 10*3/uL <0.46 k/uL [facility] Eosinophils/100 WBC (Bld) 2.0 % [facility] Erythrocyte distribution width (RBC) [Ratio] 12.7 % 11.5 - 15.0 % [facility] Hematocrit (Bld) [Volume fraction] 36.9 % 36.0 - 46.0 % [facility] Hemoglobin (Bld) [Mass/Vol] 12.0 g/dL 11.5 - 15.5 g/dL [facility] Immature granulocytes (Bld) [#/Vol] <0.10 k/uL [facility] Immature granulocytes/100 WBC (Bld) 0.3 % [facility] Lymphocytes (Bld) [#/Vol] 1.45 10*3/uL 1.00 - 4.00 k/uL [facility] Lymphocytes/100 WBC (Bld) 21.0 % [facility] MCH (RBC) [Entitic mass] 29.9 pg 26.0 - 34.0 pg [facility] MCHC (RBC) [Mass/Vol] 32.5 g/dL 30.5 - 36.0 g/dL [facility] MCV (RBC) [Entitic vol] 91.8 fL 80.0 - 100.0 fL [facility] Monocytes (Bld) [#/Vol] 0.57 10*3/uL <0.87 k/uL [facility] Monocytes/100 WBC (Bld) 8.2 % [facility] Neutrophils (Bld) [#/Vol] 4.69 10*3/uL 1.45 - 7.50 k/uL [facility] Neutrophils/100 WBC (Bld) 67.8 % [facility] Nucleated RBC (Bld) [#/Vol] <0.01 k/uL [facility] Nucleated RBC/100 WBC (Bld) [Ratio] 0.0 /100 WBC [facility] Platelet mean volume (Bld) [Entitic vol] 9.7 fL 9.0 - 12.7 fL [facility] Platelets (Bld) [#/Vol] 290 10*3/uL 150 - 400 k/uL [facility] RBC (Bld) [#/Vol] 4.02 10*6/uL 3.90 - 5.2 0 m/uL [facility] WBC (Bld) [#/Vol] 6.92 10*3/uL 3.70 - 11.00 k/uL [facility] FERRITIN BLDon 06-21-2023 Ferritin [Mass/Vol] 48.7 ng/mL 14.7 - 205.1 ng/mL [facility] Iron and Iron binding capaci ty panelon 06-21-2023 Iron [Mass/Vol] 104 ug/dL 41 - 186 ug/dL [facility] Iron binding capacity [Mass/Vol] 347 ug/dL 232 - 386 ug/dL [facility] Iron/TIBC [Molar ratio] 30.0 % 15.0 - 57.0 % [facility] VITAMIN B12 BLOODon 06-21-19 Cobalamin (Vitamin B12) [Mass/Vol] 293 pg/mL 232 - 1,245 pg/mL [facility] ANES POSTPROC EVALon 024 ANES POSTPROC EVAL HNO ID: [id number] Author: PHANI HOLDER DO Service: Anesthesiology Author Type: Physician Type: Anesthesia Postprocedure Evaluation Filed: 06/19/2023 11:45 Note Text: POST ANESTHESIA EVALUATION NOTE : 1955 Procedure Summary Date: 06/19/23 Room / Location: [facility] Anesthesia Start: 957 Anesthesia Stop: 1022 Procedure: [...] June 19, 2023 TIME: 11:45 AM CSN: [id number] Normal [facility] ANES PRE-OPon 06-19-2023 ANES PRE-OP HNO ID: [id number] Author: PHANI HOLDER DO Service: Anesthesiology Author Type: Physician Type: Anesthesia Preprocedure Evaluation Filed: 06/19/2023 09:55 Note Text: ANESTHESIOLOGY DAY OF SURGERY NOTE : 1955 Procedure Information Date/Time: 06/19/23 0945 Scheduled providers: Hunter Posadas MD Procedure: COLONOSCOPY DIAGNOSTIC Location: [facility] Estimated body mass index is 29.86 kg/m? [...] and consent discussed: yes. Patient / Responsible Alliance Party agrees to proceed: yes Patient / Surrogate [...] June 19, 2023 TIME: 9:53 AM CSN: [id number] Normal [facility] Colonoscopyon 06-19-2023 Colonoscopy [facility] Gastrointestinal Endoscopy Patient Name: Katrina Serrano Procedure Date: 06/19/2023 9:52 AM Date of : 1955 Admit Type: Outpatient Room: [place] [address] Gender: Female Note Status: Finalized Attending MD: Hunter Posadas MD, [id number] Procedure: Colonoscopy Indications: Chronic diarrhea Providers: Hunter [...] dose today. Procedure Code(s): --- Professional --- 69233, Colonoscopy, flexible; diagnostic, including collection of specimen(s) by brushing or washing, when performed (separate procedure) --- Technical --- 29629, Colonoscopy, flexible; diagnostic, including collection of specimen(s) by brushing or washing, when performed (separate procedure) Diagnosis Code(s): --- Professional --- K64.8, Other hemorrhoids K52.9, Noninfective gastroenteritis and colitis, unspecified --- Technical --- K64.8, Other hemorrhoids K52.9, Noninfective gastroenteritis and colitis, unspecified CPT copyright 2020 [employer]. All rights reserved. The codes documented in this report are preliminary and upon icd 9 coder review may be revised to meet current compliance requirements. Attending Participation: I personally performed the entire procedure. Scope In: 10:04:03 AM Scope Out: 10:16:07 AM MD Hunter Sweet MD 06/19/2023 10:19:32 AM This report has been signed electronically by Hunter Posadas MD Number of Addenda: 0 Note Initiated On: 06/19/2023 9:52 AM Normal [facility] Flexible sigmoidoscopy study on 06-19-2023 [facility] HISTORY PHYSICALon HISTORY PHYSICAL HNO ID: [id number] Author: HUNTER POSADAS MD Service: Gastroenterology Author [...] Hunter Posadas MD PATIENT NAME: Katrina Serrano Normal [facility] HISTORY PHYSICAL HNO ID: [id number] Author: ANAMIKA RICHARDSON APRN.AMAIRANI Service: ? Author Type: Nurse Practitioner Type: [...] Deficiency Aci (Adrenal Cortical Insufficiency) (Hcc) Polyarthritis Long-Term Current Use of Anticoagulant Therapy Preop Examination [...] Take 1 (more content not included)... Normal [facility] NURSING PROGon 06-19-2023 NURSING PROG HNO ID: [id number] Author: LAURA HELM RN Service: Nursing Author Type: Registered Nurse Type: Nursing Progress Note Filed: 06/19/2023 11:53 Note Text: Patient continues to have intermittent cramping abdominal pain, but states she feels well enough to go home. States pain has lessened since she first came out of procedure. Normal [facility] CT CHEST WO IVCONon 06-12-19 [facility] Absolute lymphocyte countOrd ered By: Alexandra Baker on 06-08-2023 Lymphocytes Auto (Unsp spec) [#/Vol] 1.31 10*3/uL 0.83-4.51 [facility] Automated lymphocyte count a s percentage of total leukocytesOrdered By: Alexandra Baker on 06-08-2023 Lymphocytes/100 WBC Auto (Unsp spec) 23.1 % 19-41 [facility] Basophil percentageOrdered B y: Alexandra Baker on 06-08-2023 Basophils/100 WBC (Bld) 0.9 % 0-1 [facility] Bilirubin [Mass/Vol] 0.30 mg/dL 0.20-1.00 [facility] Comment on above: For patients on eltr ombopag therapy, use of [employer] [place] TBIL is not recommended. Chloride [Moles/Vol] 106 mmol/L 98-107 [facility] Eosinophils/100 WBC (Bld) 3.3 % 0-5 [facility] Glucose [Mass/Vol] 89 mg/dL 74-106 [facility] Hemoglobin (Bld) [Mass/Vol] 10.5 g/dL 12.0-15.0 [facility] Monocytes/100 WBC (Bld) 7.6 % 0-10 [facility] Neutrophils (Bld) [#/Vol] 3.7 10*3/uL 2.0-7.7 [facility] Neutrophils/100 WBC (Bld) 64.7 % 47-70 [facility] Potassium [Moles/Vol] 3.8 mmol/L 3.5-5.1 [facility] Comment on above: Slight Hemolysis, Re sult may be falsely increased. Protein [Mass/Vol] 7.9 g/dL 6.4-8.2 [facility] Sodium [Moles/Vol] 137 mmol/L 136-145 [facility] [facility] WBC (Bld) [#/Vol] 5.7 10*3/uL 4.4-11.0 [facility] Determination of erythrocyte mean corpuscular volume (MCV)Ordered By: Alexandra Baker on 06-08-2023 MCV (RBC) [Entitic vol] 92.2 fL 81-99 [facility] Erythrocyte distribution wid th ratioOrdered By: [facility] Samuel on 06-08-2023 Erythrocyte distribution width (RBC) [Ratio] 12.5 % 11.6-14.6 [facility] Erythrocyte distribution wid th standard deviationOrdered By: Alexandra Baker on 06-08-2023 Erythrocyte distribution width (RBC) [Entitic vol] 42.4 fL 35.1-43.9 [facility] Hematocrit Auto (Bld) [Volum e fraction]Ordered By: Alexandra Baker on 06-08-2023 Hematocrit (Bld) [Volume fraction] 33.1 % 37-47 [facility] Immature granulocytes/100 WB C Auto (Bld)Ordered By: [facility] Samuel on 06-08-2023 Immature granulocytes/100 WBC (Bld) 0.400 % 0.0-0.9 [facility] Comment on above: IG% - Immature Granu locytes (promyelocytes, myelocytes and metamyelocytes) > 1% indicates that a LEFT SHIFT is Present. Laboratory - Chemistry and C hemistry - challengeOrdered By: [facility] Samuel on 06-08-2023 Albumin/Globulin [Mass ratio] 0.6 {ratio} 0.9-2.4 [facility] ALP [Catalytic activity/Vol] 169 U/L 45-117 [facility] ALT [Catalytic activity/Vol] 22 U/L 13-56 [facility] CO2 [Moles/Vol] 26.0 mmol/L 21.0-32.0 [facility] Globulin (S) [Mass/Vol] 4.8 g/dL 2.2-4.2 [facility] Urea nitrogen/Creatinine [Mass ratio] 13.4 mg/mg 10-20 [facility] Laboratory - Hematology and Cell countsOrdered By: Alexandra Baker on 06-08-2023 MCH (RBC) [Entitic mass] 29.2 pg 27.0-32.0 [facility] MCHC (RBC) [Mass/Vol] 31.7 g/dL 32-36 [facility] Nucleated RBC/100 WBC (Bld) [Ratio] 0 % 0-5 [facility] Platelets (Bld) [#/Vol] 330 10*3/uL 150-450 [facility] No Panel InformationOrdered By: Alexandra Baker on 06-08-2023 Estimated GFR (MDRD) Amer 54 mL/min >60 [facility] Comment on above: GFR Calc Estimated GFR (MDRD) Non-Af Amer 45 mL/min >60 [facility] Comment on above: Non- GFR Calc Platelet mean volume Sunil-Ec ker (Bld) [Entitic vol]Ordered By: Alexandra Baker on 06-08-2023 Platelet mean volume (Bld) [Entitic vol] 9.8 fL 6.2-12.0 [facility] RBC Auto (Bld) [#/Vol]Ordere d By: Alexandra Baker on 06-08-2023 RBC (Bld) [#/Vol] 3.59 10*6/uL 4.2-5.4 [facility] Serum or plasma calcium dave urement (mass/volume)Ordered By: Alexandra Baker on 06-08-2023 Calcium [Mass/Vol] 9.6 mg/dL 8.5-10.1 [facility] Serum or plasma creatinine m easurement (mass/volume)Ordered By: Alexandra Baker on 06-08-2023 Creatinine [Mass/Vol] 1.27 mg/dL 0.55-1.02 [facility] Comment on above: The validity of the calculated GFR & GFRAA in patients over 70 years has not been determined. Clinical correlation is essential. Serum or plasma urea nitroge n measurement (mass/volume)Ordered By: Alexandra Baker on 06-08-2023 Urea nitrogen [Mass/Vol] 17 mg/dL 7-18 [facility] Thin prep Papanicolaou smear with manual screeningOrdered By: Alexandra Baker on 06-08-2023 Thin prep Papanicolaou smear with manual screening 3.1 g/dL 3.2-5.0 [facility] Thin prep Papanicolaou smear with manual screening 19 U/L 15-37 [facility] Comment on above: Slight Hemolysis, Re sult may be falsely increased. Thin prep Papanicolaou smear with manual screening 5 5-15 [facility] UA DIP, URINE (POC)on 2022 BILIRUBIN UA (POCT) Negative Negative [facility] CLARITY UA (POCT) Clear [facility] COLOR UA (POCT) Yellow [facility] GLUCOSE UA (POCT) Negative Negative mg/dL [facility] Hemoglobin Ql (U) Negative Negative [facility] KETONE UA (POCT) Negative Negative mg/dL [facility] LEUKOCYTES UA (POCT) Small Abnormal Negative [facility] NITRITE UA (POCT) Negative Negative [facility] PH UA (POCT) 7.0 4.5 - 8.0 [facility] Protein Ql (U) 100 mg/dL Abnormal Negative mg/dL [facility] SPECIFIC GRAVITY UA (POCT) 1.025 1.005 - 1.030 [facility] UROBILINOGEN UA (POCT) 0.2 E.U./dL Shaneka l E.U./dL [facility] No Panel Informationon 12-07 [facility] Absolute lymphocyte countOrd ered By: Alexandra Baker on 11-09-2022 Lymphocytes Auto (Unsp spec) [#/Vol] 1.11 10*3/uL 0.83-4.51 [facility] Basophil percentageOrdered B y: Alexandra Baker on 11-09-2022 Basophils/100 WBC (Bld) 0.4 % 0-1 [facility] Bilirubin [Mass/Vol] 0.30 mg/dL 0.20-1.00 [facility] Comment on above: For patients on eltr ombopag therapy, use of [employer] [place] TBIL is not recommended. Chloride [Moles/Vol] 106 mmol/L 98-107 [facility] Eosinophils/100 WBC (Bld) 5.3 % 0-5 [facility] Glucose [Mass/Vol] 77 mg/dL 74-106 [facility] Neutrophils (Bld) [#/Vol] 3.2 10*3/uL 2.0-7.7 [facility] Neutrophils/100 WBC (Bld) 63.9 % 47-70 [facility] Potassium [Moles/Vol] 3.7 mmol/L 3.5-5.1 [facility] Protein [Mass/Vol] 8.1 g/dL 6.4-8.2 [facility] Sodium [Moles/Vol] 139 mmol/L 136-145 [facility] WBC (Bld) [#/Vol] 4.9 10*3/uL 4.4-11.0 [facility] Blood erythrocytes count (nu mber/volume)Ordered By: Alexandra Baker on 11-09-2022 RBC (Bld) [#/Vol] 3.86 10*6/uL 4.2-5.4 [facility] Blood hemoglobin measurement (mass/volume)Ordered By: Alexandra Baker on 11-09-2022 Hemoglobin (Bld) [Mass/Vol] 11.5 g/dL 12.0-15.0 [facility] Blood lymphocytes/100 leukoc ytesOrdered By: Alexandra Baker on 11-09-2022 Lymphocytes/100 WBC (Bld) 22.5 % 19-41 [facility] Blood monocytes/100 leukocyt esOrdered By: Alexandra Baker on 11-09-2022 Monocytes/100 WBC (Bld) 7.7 % 0-10 [facility] Blood platelet mean volumeOr dered By: Alexandra Baker on 11-09-2022 Platelet mean volume (Bld) [Entitic vol] 10.1 fL 6.2-12.0 [facility] Determination of erythrocyte mean corpuscular volume (MCV)Ordered By: Alexandra Baker on 11-09-2022 MCV (RBC) [Entitic vol] 94.8 fL 81-99 [facility] Hematocrit Auto (Bld) [Volum e fraction]Ordered By: Alexandra Baker on 11-09-2022 Hematocrit (Bld) [Volume fraction] 36.6 % 37-47 [facility] Laboratory - Chemistry and C hemistry - challengeOrdered By: Alexandra Baker on 11-09-2022 ALP [Catalytic activity/Vol] 158 U/L 45-117 [facility] ALT [Catalytic activity/Vol] 19 U/L 13-56 [facility] CO2 [Moles/Vol] 28.0 mmol/L 21.0-32.0 [facility] Globulin (S) [Mass/Vol] 4.7 g/dL 2.2-4.2 [facility] Urea nitrogen/Creatinine [Mass ratio] 12.9 mg/mg 10-20 [facility] Laboratory - Hematology and Cell countsOrdered By: Alexandra Baker on 11-09-2022 Erythrocyte distribution width (RBC) [Entitic vol] 47.3 fL 35.1-43.9 [facility] Erythrocyte distribution width (RBC) [Ratio] 13.6 % 11.6-14.6 [facility] Immature granulocytes/100 WBC (Bld) 0.200 % 0.0-0.9 [facility] Comment on above: IG% - Immature Granu locytes (promyelocytes, myelocytes and metamyelocytes) > 1% indicates that a LEFT SHIFT is Present. MCH (RBC) [Entitic mass] 29.8 pg 27.0-32.0 [facility] Nucleated RBC/100 WBC (Bld) [Ratio] 0 % 0-5 [facility] MCHC Auto (RBC) [Mass/Vol]Or dered By: Alexandra Baker on 11-09-2022 MCHC (RBC) [Mass/Vol] 31.4 g/dL 32-36 [facility] No Panel InformationOrdered By: Alexandra Baker on 11-09-2022 Estimated GFR (MDRD) Amer 48 mL/min >60 [facility] Comment on above: GFR Calc Estimated GFR (MDRD) Non-Af Amer 40 mL/min >60 [facility] Comment on above: Non- GFR Calc Platelets bldOrdered By: Daniel Baker on 11-09-2022 Platelets (Bld) [#/Vol] 316 10*3/uL 150-450 [facility] Serum or plasma albumin dave urement (mass/volume)Ordered By: Alexandra Baker on 11-09-2022 Albumin [Mass/Vol] 3.4 g/dL 3.2-5.0 [facility] Serum or plasma albumin/glob ulin mass ratioOrdered By: Alexandra Baker on 11-09-2022 Albumin/Globulin [Mass ratio] 0.7 {ratio} 0.9-2.4 [facility] Serum or plasma calcium dave urement (mass/volume)Ordered By: Alexandra Baker on 11-09-2022 Calcium [Mass/Vol] 9.5 mg/dL 8.5-10.1 [facility] Serum or plasma creatinine m easurement (mass/volume)Ordered By: Alexandra Baker on 11-09-2022 Creatinine [Mass/Vol] 1.40 mg/dL 0.55-1.02 [facility] Comment on above: The validity of the calculated GFR & GFRAA in patients over 70 years has not been determined. Clinical correlation is essential. Serum or plasma urea nitroge n measurement (mass/volume)Ordered By: Alexandra Baker on 11-09-2022 Urea nitrogen [Mass/Vol] 18 mg/dL 7-18 [facility] Thin prep Papanicolaou smear with manual screeningOrdered By: Alexandra Baker on 11-09-2022 Thin prep Papanicolaou smear with manual screening 19 U/L 15-37 [facility] Thin prep Papanicolaou smear with manual screening 5 5-15 [facility] XR Pelvis APon 10-13-2022 IMPRESSION: No acute osseous abnormality Hair Cutter: LISA Transcribe Date/Time: Oct 13 2022 2:40P Dictated by : DESTINI FLOREZ MD This examination was interpreted and the report reviewed and electronically signed by: DESTINI FLOREZ MD on Oct 13 2022 2:42PM [facility] DIVISION OF RADIOLOGY * * *Final Report* [...] lower lumbar spine. DIVISION OF RADIOLOGY Provider, [facility] - 10/13/2022 * * *Final Report* [...] spine. IMPRESSION IMPRESSION: No acute osseous abnormality Hair Cutter: PSCB Transcribe Date/Time: Oct 13 2022 2:40P Dictated by : DESTINI FLOREZ MD This examination was interpreted and the report reviewed and electronically signed by: DESTINI FLOREZ MD on Oct 13 2022 2:42PM EST [facility] XR Pelvis APOrdered By: Ccf Provider on 10-13-2022 [facility] CT CHEST WO IVCONon 10-11-19 23 [facility] XR Pelvis APon 10-07-2022 Radiology Study observation (narrative) [facility] CBC W Auto Differential pane l (Bld)on 08-23-2022 Basophils (Bld) [#/Vol] <0.11 k/uL [facility] Basophils/100 WBC (Bld) 0.4 % [facility] Differential cell count method Nom (Bld) Auto [facility] Eosinophils (Bld) [#/Vol] 0.27 10*3/uL <0.46 k/uL [facility] Eosinophils/100 WBC (Bld) 4.9 % [facility] Erythrocyte distribution width (RBC) [Ratio] 13.3 % 11.5 - 15.0 % [facility] Hematocrit (Bld) [Volume fraction] 34.5 % Low 36.0 - 46.0 % [facility] Hemoglobin (Bld) [Mass/Vol] 11.2 g/dL Low 11.5 - 15.5 g/dL [facility] Immature granulocytes (Bld) [#/Vol] <0.10 k/uL [facility] Immature granulocytes/100 WBC (Bld) 0.4 % [facility] Lymphocytes (Bld) [#/Vol] 1.43 10*3/uL 1.00 - 4.00 k/uL [facility] Lymphocytes/100 WBC (Bld) 26.0 % [facility] MCH (RBC) [Entitic mass] 30.4 pg 26.0 - 34.0 pg [facility] MCHC (RBC) [Mass/Vol] 32.5 g/dL 30.5 - 36.0 g/dL [facility] MCV (RBC) [Entitic vol] 93.8 fL 80.0 - 100.0 fL [facility] Monocytes (Bld) [#/Vol] 0.50 10*3/uL <0.87 k/uL [facility] Monocytes/100 WBC (Bld) 9.1 % [facility] Neutrophils (Bld) [#/Vol] 3.27 10*3/uL 1.45 - 7.50 k/uL [facility] Neutrophils/100 WBC (Bld) 59.2 % [facility] Nucleated RBC (Bld) [#/Vol] <0.01 k/uL [facility] Nucleated RBC/100 WBC (Bld) [Ratio] 0.0 /100 WBC [facility] Platelet mean volume (Bld) [Entitic vol] 9.6 fL 9.0 - 12.7 fL [facility] Platelets (Bld) [#/Vol] 243 10*3/uL 150 - 400 k/uL [facility] RBC (Bld) [#/Vol] 3.68 10*6/uL Low 3.90 - 5.2 0 m/uL [facility] WBC (Bld) [#/Vol] 5.51 10*3/uL 3.70 - 11.00 k/uL [facility] FERRITIN BLDon 08-23-2022 Ferritin [Mass/Vol] 113.0 ng/mL 14.7 - 205.1 ng/mL [facility] Iron and Iron binding capaci ty panelon 08-23-2022 Iron [Mass/Vol] 58 ug/dL 41 - 186 ug/dL [facility] Iron binding capacity [Mass/Vol] [facility] Iron/TIBC [Molar ratio] [facility] XR Chest PA and Lateralon IMPRESSION: Stable radiographic appearance of the chest Hair Cutter: LISA Transcribe Date/Time: Apr 27 2022 4:37P Dictated by : MICHAEL SHANE MD This examination was interpreted and the report reviewed and electronically signed by: MICHAEL SHANE MD on Apr 27 2022 4:39PM [facility] DIVISION OF RADIOLOGY * * *Final Report* [...] changes in the lumbar spine. The visualized DIVISION OF RADIOLOGY Provider, [facility] - 04/27/2022 * * *Final Report* * [...] IMPRESSION: Stable radiographic appearance of the chest Hair Cutter: LISA Transcribe Date/Time: Apr 27 2022 4:37P Dictated by : MICHAEL SHANE MD This examination was interpreted and the report reviewed and electronically signed by: MICHAEL SHANE MD on Apr 27 2022 4:39PM EST [facility] XR Chest PA and LateralOrder ed By: Ccf Provider on 04-27-2022 [facility] XR Chest PA and Lateralon Radiology Study observation (narrative) [facility] ANES POSTPROC EVALon 022 ANES POSTPROC EVAL HNO ID: [id number] Author: Jose Cruz Mendes MD Service: Anesthesiology Author Type: Anesthesiologist Type: Anesthesia Postprocedure Evaluation Filed: 11/17/2021 1:28 PM Note Text: POST ANESTHESIA EVALUATION NOTE : 1955 Procedure Summary Date: 11/17/21 Room / Location: [facility] Anesthesia Start: 1046 Anesthesia Stop: 1105 Procedure: EGD DIAGNOSTIC Diagnosis: Other iron deficiency anemia (Suspected upper GI bleeding) Scheduled Providers: Johnathan Guillermo MD; Mena Vargas APRN.SHELL MACHINE OPERATOR Responsible Provider: Minnie Brady MD Anesthesia Type: [...] November 17, 2021 TIME: 1:28 PM CSN: [id number] Normal [facility] ANES PRE-OPon 11-17-2021 ANES PRE-OP HNO ID: [id number] Author: Minnie Brady MD Service: Anesthesiology Author Type: Anesthesiologist Type: Anesthesia Preprocedure Evaluation Filed: 11/17/2021 10:29 AM Note Text: ANESTHESIOLOGY DAY OF SURGERY NOTE : 1955 Procedure Information Date/Time: 11/17/21 1130 Scheduled providers: Johnathan Guillermo MD; Mena Vargas APRN.SHELL MACHINE OPERATOR Procedure: EGD DIAGNOSTIC Location: [facility] Estimated body mass index is 32.95 [...] November 17, 2021 TIME: 10:28 AM CSN: [id number] Normal [facility] EGD DIAGNOSTICon 11-17-2021 [facility] HISTORY PHYSICALon 2 HISTORY PHYSICAL HNO ID: [id number] Author: Johnathan Guillermo MD Service: General Surgery Author Type: Physician Type: HANDP Filed: 11/17/2021 10:43 AM Note Text: HISTORY AND PHYSICAL ? Katrina Serrano 1955 ? REFERRING PHYSICIAN: Carolina Lambert MD [...] now referred to have this performed in [place] by one of the general surgeons. ? [...] ? ? (more content not included)... Normal [facility] SURGICAL PATHOLOGYon 022 CASE REPORT Normal [facility] Comment on above: Order Comment: Speci marquis Type: TISSUE SPECIMEN Ordering Facility: [facility] Address: [address] [place], [place] [id number] Result Comment: Surg ica Pathology Report Case: [id number] Authorizing Provider: Johnathan Guillermo MD Collected: 11/17/2021 10:56 AM Ordering Location: [facility] Received: 11/17/2021 01:09 PM Pathologist: Johnathan Titus MD Specimens: A) - STOMACH BIOPSY, Gastritis; R/O H. Pylori B) - ESOPHAGUS LOWER BIOPSY, R/O Chang's Performed By: #### S #### [facility] CLIA [id number] [address] [place] [address] STATES OF [facility] FINAL DIAGNOSIS Normal [facility] spital Comment on above: Order Comment: Suma cho Type: TISSUE SPECIMEN Ordering Facility: [facility] Address: [address] [place], [place] [id number] Result Comment: A. S tomach, biopsy: - Gastric mucosa with no significant pathologic abnormality. B. Distal esophagus, biopsy: - Squamous mucosa with no significant pathologic abnormality. Performed By: #### S #### [facility] CLIA [id number] [address] [place] [address] FINAL PERFORMING LAB Normal [facility] Comment on above: Order Comment: Speci men Type: TISSUE SPECIMEN Ordering Facility: [facility] Address: [address] [place] [address] Result Comment: Diag nostic interpretation performed at [facility], [address] [place] [address] CLIA# [id number] Director Supply Chain: Jared Casillas M.D. Performed By: #### S #### [facility] CLIA [id number] [address] [place] [address] GROSS DESCRIPTION Normal [facility] Comment on above: Order Comment: Speci men Type: TISSUE SPECIMEN Ordering Facility: [facility] Address: [address] [place] [address] Result Comment: A. S TOMACH BIOPSY. Received in formalin is one piece of naranjo, soft tissue measuring 0.4 x 0.3 x 0.2 cm. Totally submitted in one cassette. B. ESOPHAGUS LOWER BIOPSY. Received in formalin is one piece of naranjo, soft tissue measuring 0.4 x 0.2 x 0.2 cm. Totally submitted in one cassette. Gross examination performed at [facility], [address] [place] [address] FFS 11/17/2021 8:14 PM Performed By: #### S #### [facility] CLIA [id number] [address] [place] [address] OF RYAN Upper GI endoscopyon 022 Upper GI endoscopy [facility] Gastrointestinal Endoscopy Patient Name: Katrina Serrano Procedure Date: 11/17/2021 10:40 AM Date of : 1955 Admit Type: Outpatient Age: 66 Room: [facility] Gender: Female Note Status: Finalized Attending MD: [...] PRN for surveillance. - Return to physician horticultural nursery assistant in 1 week. Procedure Code(s): --- Professional --- 84596, Esophagogastroduodenos copy, flexible, transoral; with biopsy, single or multiple Diagnosis Code(s): --- Professional --- K29.70, Gastritis, unspecified, without bleeding CPT copyright 2019 [employer]. All rights reserved. The codes documented in this report are preliminary and upon icd 9 coder review may be revised to meet current compliance requirements. Attending Participation: I personally performed the entire procedure. Scope In: 10:55:06 AM Scope Out: 10:59:51 AM MD Johnathan Suggs MD 11/17/2021 11:03:11 AM This report has been signed electronically by Johnathan Guillermo MD Number of Addenda: 0 Note Initiated On: 11/17/2021 10:40 AM Estimated Blood Loss: Estimated blood loss was minimal. Normal [facility] JERALD SCREENINGon 10-14-2021 [facility] CT CHEST WO IVCONon 10-09-19 [facility] RETIC COUNTon 10-08-2021 Reticulocytes (Bld) [#/Vol] 0.34747 10*3/uL 0.018 - 0.100 M/uL [facility] Reticulocytes (Bld) [#/Vol]o n 10-08-2021 Reticulocytes/100 RBC (Bld) 1.9 % 0.4 - 2.0 % [facility] GI FLUORO CHEST SNIFF TESTon 04-28-2021 GI [...] appear to show normal movement as discussed. Hair Cutter: LISA Transcribe Date/Time: Apr 28 2021 11:38A Dictated by : ALFREDO JUAN DO This examination was interpreted and the report reviewed and electronically signed by: ALFREDO JUAN DO on Apr 28 2021 11:56AM EST [id number] Normal [facility] [id number] (821 05)Ordered By: Banding Machine Operator on 06-11-2015 AFP.tumor marker [Mass/Vol] 4.2 ng/mL Normal 0.0-8.3 [facility] Work Phone: Comment on above: Christina ECLIA methodol ogy PATIENT WAS FASTINGP ERFORMED BY: [employer] [id number] [facility] [id number] CBC W/AUTO DIFF WBC (01359)O rdered By: Banding Machine Operator on 06-11-2015 Basophils (Bld) [#/Vol] 0.0 10*3/uL Normal 0.0-0.2 [facility]; [facility] Work Phone: Comment on above: PATIENT WAS FASTINGP ERFORMED BY: [employer] [id number] [facility] [id number] Information: [id number] Basophils/100 WBC (Bld) 1 % Normal [facility]; [facility] Work Phone: Comment on above: PATIENT WAS FASTINGP ERFORMED BY: [facility] RiverKtonvh9500 [facility] [id number] Information: [id number] Eosinophils (Bld) [#/Vol] 0.4 10*3/uL Normal 0.0-0.4 [facility]; [facility] Work Phone: Comment on above: PATIENT WAS FASTINGP ERFORMED BY: [facility]PointUN[facility] Ting[facility] HospitalYofxua0453 [facility] [id number] Information: [id number] Eosinophils/100 WBC (Bld) 8 % Normal [facility]; [facility] Work Phone: Comment on above: PATIENT WAS FASTINGP ERFORMED BY: [facility] Aegicu1874 [facility] [id number] Information: [id number] Erythrocyte distribution width (RBC) [Ratio] 14.8 % Normal 12.3-15.4 [facility]; [facility] Work Phone: Comment on above: PATIENT WAS FASTINGP ERFORMED BY: [address] [id number] Information: [id number] Hematocrit (Bld) [Volume fraction] 41.6 % Normal 34.0-46.6 [facility]; [facility] Work Phone: Comment on above: PATIENT WAS FASTINGP ERFORMED BY: [address] [id number] Information: [id number] Hemoglobin (Bld) [Mass/Vol] 13.5 g/dL Normal 11.1-15.9 [facility]; [facility] Work Phone: Comment on above: PATIENT WAS FASTINGP ERFORMED BY: [place] [id number] [facility] [id number] Information: [id number] Immature granulocytes (Bld) [#/Vol] 0.0 10*3/uL Normal 0.0-0.1 [facility]; [facility] Work Phone: Comment on above: PATIENT WAS FASTINGP ERFORMED BY: [place] [id number] [facility] [id number] Information: [id number] Immature granulocytes/100 WBC (Bld) 0 % Normal [facility]; [facility] Work Phone: Comment on above: PATIENT WAS FASTINGP ERFORMED BY: [address]ox RoadDublin [place] [id number] Information: [id number] Lymphocytes (Bld) [#/Vol] 1.7 10*3/uL Normal 0.7-3.1 [facility]; [facility] Work Phone: Comment on above: PATIENT WAS FASTINGP ERFORMED BY: [facility] [address] [id number] Information: [id number] Lymphocytes/100 WBC (Bld) 35 % Normal [facility]; [facility] Work Phone: Comment on above: PATIENT WAS FASTINGP ERFORMED BY: [facility] Licea Lwlihm[address] [id number] Information: [id number] MCH (RBC) [Entitic mass] 29.2 pg Normal 26.6-33.0 [facility]; [facility] Work Phone: Comment on above: PATIENT WAS FASTINGP ERFORMED BY: [facility] Jsgsbz14[address] [id number] Information: [id number],[id number] MCHC (RBC) [Mass/Vol] 32.5 g/dL Normal 31.5-35.7 [facility] prehensive Internal Medicine; [facility] Work Phone: Comment on above: PATIENT WAS FASTINGP ERFORMED BY: [facility]6370 [facility] [id number] Information: [id number],[id number] MCV (RBC) [Entitic vol] 90 fL Normal 79-97 [facility]; [facility] Work Phone: Comment on above: PATIENT WAS FASTINGP ERFORMED BY: [facility] Scanlon[address] [id number] Information: 614113,[id number] Monocytes (Bld) [#/Vol] 0.3 10*3/uL Normal 0.1-0.9 [facility]; [facility] Work Phone: Comment on above: PATIENT WAS FASTINGP ERFORMED BY: [facility] Tristan6370 [facility] [id number] Information: [id number] Monocytes/100 WBC (Bld) 6 % Normal [facility]; [facility] Work Phone: Comment on above: PATIENT WAS FASTINGP ERFORMED BY: [facility] Tristan6370 [facility] [id number] Information: 167335,[id number] Neutrophils (Bld) [#/Vol] 2.4 10*3/uL Normal 1.4-7.0 [facility]; [facility] Work Phone: Comment on above: PATIENT WAS FASTINGP ERFORMED BY: [facility] Tristan6370 [facility] [id number] Information: [id number],[id number] Neutrophils/100 WBC (Bld) 50 % Normal [facility]; [facility] Work Phone: Comment on above: PATIENT WAS FASTINGP ERFORMED BY: [facility] Jessica Tristan6370 [facility] [id number] Information: [id number] Platelets (Bld) [#/Vol] 265 10*3/uL Normal 150-379 [facility]; [facility] Work Phone: Comment on above: PATIENT WAS FASTINGP ERFORMED BY: [facility] Jessica Tristan6370 [facility] [id number] Information: 655686,[id number] RBC (Bld) [#/Vol] 4.62 10*6/uL Normal 3.77-5.28 Compr ehensive Internal Medicine; [facility] Work Phone: Comment on above: PATIENT WAS FASTINGP ERFORMED BY: [facility] Vazquezlin6370 [facility] [id number] Information: [id number] WBC (Bld) [#/Vol] 4.8 10*3/uL Normal 3.4-10.8 Compre hensive Internal Medicine; [facility] Work Phone: Comment on above: PATIENT WAS FASTINGP ERFORMED BY: [facility] Jessica Tristan[address] [facility] [place] [id number] Information: 164384,H24815 LIPID PANEL (53138)Ordered B y: Banding Machine Operator on 06-11-2015 Cholesterol [Mass/Vol] 129 mg/dL Normal 100-199 [facility] Internal Medicine; [facility] Work Phone: Comment on above: PATIENT WAS FASTINGP ERFORMED BY: [facility] Jessica Vazquezlin6370 [address] [facility] [place] [id number] Cholesterol in HDL [Mass/Vol] 46 mg/dL Normal [facility]; [facility] Work Phone: Comment on above: According to ATP-III Guidelines, HDL-C >59 mg/dL is considered anegative risk factor for CHD. PATIENT WAS FASTINGP ERFORMED BY: [facility] Jessica Tristan6[address] Relav[facility] SoftwareMission Hospital [id number] Cholesterol in LDL [Mass/Vol] 68 mg/dL Normal 0-99 [facility]; [facility] Work Phone: Comment on above: PATIENT WAS FASTINGP ERFORMED BY: [facility] Vinayaksourav Cukame2720 [facility] [id number] Cholesterol in LDL/Cholesterol in HDL [Mass ratio] 1.5 {ratio_units} Normal 0.0-3.2 [facility]; [facility] Work Phone: Comment on above: LDL/HDL Ratio Men Wo men 1/2 Avg.Risk 1.0 1.5 Avg.Risk 3.6 3.2 2X Avg.Risk 6.2 5.0 3X Avg.Risk 8.0 6.1 PATIENT WAS FASTINGP ERFORMED BY: [facility] LabTriny VazquezDbjjub3944 [facility] [id number] Cholesterol in VLDL [Mass/Vol] 15 mg/dL Normal 5-40 [facility]; [facility] Work Phone: Comment on above: PATIENT WAS FASTINGP ERFORMED BY: [facility] LabCosourav Vbwyuh5416 [facility] [id number] Triglyceride [Mass/Vol] 75 mg/dL Normal 0-149 [facility]; [facility] Work Phone: Comment on above: PATIENT WAS FASTINGP ERFORMED BY: [facility] Jessica Tristan6370 [facility] [id number] METABOLIC PANEL, COMPREHENSI VE (44387)Ordered By: Banding Machine Operator on 06-11-2015 Albumin [Mass/Vol] 4.1 g/dL Normal 3.5-5.5 [facility] Internal Medicine; [facility] Work Phone: Comment on above: PATIENT WAS FASTINGP ERFORMED BY: [facility] Mivark5691 [facility] [id number] Albumin/Globulin [Mass ratio] 1.6 {ratio} Normal 1.1-2.5 [facility]; [facility] Work Phone: Comment on above: PATIENT WAS FASTINGP ERFORMED BY: [facility] Vinayak Agcbcx2895 [facility] [id number] ALP [Catalytic activity/Vol] 62 U/L Normal 39-117 [facility]; [facility] Work Phone: Comment on above: PATIENT WAS FASTINGP ERFORMED BY: [facility] Vinayaksourav Iamndf2553 [facility] [id number] ALT [Catalytic activity/Vol] 17 U/L Normal 0-32 [facility]; [facility] Work Phone: Comment on above: PATIENT WAS FASTINGP ERFORMED BY: [facility] Vinayak Hbfpns4375 [facility] [id number] AST [Catalytic activity/Vol] 24 U/L Normal 0-40 [facility]; [facility] Work Phone: Comment on above: PATIENT WAS FASTINGP ERFORMED BY: [facility] Vinayaksourav Pmlnqq4012 [facility] [id number] Bilirubin [Mass/Vol] 0.4 mg/dL Normal 0.0-1.2 Comp [facility]; [facility] Work Phone: Comment on above: PATIENT WAS FASTINGP ERFORMED BY: CB [facility] Vrgacx3485 Ga RoadDublin [place] [id number] Calcium [Mass/Vol] 9.0 mg/dL Normal 8.7-10.2 [facility] Internal Medicine; [facility] Work Phone: Comment on above: PATIENT WAS FASTINGP ERFORMED BY: CB [facility] Uzbzdx7096 Ga RoadDublin [place] [id number] Chloride [Moles/Vol] 104 mmol/L Normal 97-108 Comp rehensive Internal Medicine; [facility] Work Phone: Comment on above: PATIENT WAS FASTINGP ERFORMED BY: CB [facility] Dvqsbv2107 Ga RoadDublin [place] [id number] CO2 [Moles/Vol] 23 mmol/L Normal 18-29 [facility] Internal Medicine; [facility] Work Phone: Comment on above: PATIENT WAS FASTINGP ERFORMED BY: CB [facility] Isdckp4967 Ga RoadDublin [place] [id number] Creatinine [Mass/Vol] 0.66 mg/dL Normal 0.57-1.00 [facility]; [facility] Work Phone: Comment on above: PATIENT WAS FASTINGP ERFORMED BY: CB [facility] Hdzvru9271 Ga RoadDublin [place] [id number] GFR/1.73 sq M.predicted among blacks CKD-EPI (S/P/Bld) [Vol rate/Area] 112 mL/min/1.73 Normal [facility]; [facility] Work Phone: Comment on above: PATIENT WAS FASTINGP ERFORMED BY: CB [facility] Cbdhax5315 [address] RoadDublin [place] [id number] GFR/1.73 sq M.predicted among non-blacks CKD-EPI (S/P/Bld) [Vol rate/Area] 97 mL/min/1.73 Normal [facility]; [facility] Work Phone: Comment on above: PATIENT WAS FASTINGP ERFORMED BY: CB [facility] Dhgfck1430 Ga RoadDublin [place] [id number] Globulin (S) [Mass/Vol] 2.5 g/dL Normal 1.5-4.5 [facility] Internal Medicine; [facility] Work Phone: Comment on above: PATIENT WAS FASTINGP ERFORMED BY: [facility] LabTriny VazquezUceqvu3270 Ga RoadDublin [place] [id number] Glucose [Mass/Vol] 78 mg/dL Normal 65-99 [facility] Internal Medicine; [facility] Work Phone: Comment on above: PATIENT WAS FASTINGP ERFORMED BY: [facility] Smmkln0592 [address] RoadDublin [place] [id number] Potassium [Moles/Vol] 4.7 mmol/L Normal 3.5-5.2 [facility] Internal Medicine; [facility] Work Phone: Comment on above: PATIENT WAS FASTINGP ERFORMED BY: [facility] LabDolores Ockybu2658 [address] RoadDublin [place] [id number] Protein [Mass/Vol] 6.6 g/dL Normal 6.0-8.5 [facility] Internal Medicine; [facility] Work Phone: Comment on above: PATIENT WAS FASTINGP ERFORMED BY: [facility] LabCo Xnzojk5590 Ga RoadDublin [place] [id number] Sodium [Moles/Vol] 141 mmol/L Normal 134-144 [facility] Internal Medicine; [facility] Work Phone: Comment on above: PATIENT WAS FASTINGP ERFORMED BY: [facility] LabCo Zoiwfm6[address] RoadDublin [place] [id number] Urea nitrogen [Mass/Vol] 7 mg/dL Normal 6-24 [facility] Internal Medicine; [facility] Work Phone: Comment on above: PATIENT WAS FASTINGP ERFORMED BY: [facility] Efsvny8395 Ga RoadDublin [place] [id number] Urea nitrogen/Creatinine [Mass ratio] 11 mg/mg Normal 9-23 [facility]; [facility] Work Phone: Comment on above: PATIENT WAS FASTINGP ERFORMED BY: [facility] Biqfov8415 [address] RoadDublin [place] [id number] VITAMIN B-12 (CYANOCOBALAMIN ) (19478)Ordered By: Banding Machine Operator on 06-11-2015 Cobalamin (Vitamin B12) [Mass/Vol] 699 pg/mL Normal 211-946 [facility]; [facility] Work Phone: Comment on above: PATIENT WAS FASTINGP ERFORMED BY: Lime[employer]ray6370 HipSwapFormerly [facility] [id number] Vitamin D Hydroxy (44580)Ord ered By: Banding Machine Operator on 06-11-2015 25-hydroxyvitamin D [Mass/Vol] 62.4 ng/mL Normal 30.0-100.0 [facility]; [facility] Work Phone: Comment on above: Vitamin D deficiency has been defined by the [place] of[place]icine and an Endocrine Society practice guideline as alevel of serum 25-OH vitamin D less than 20 ng/mL (1,2).The Endocrine Society went on to further define vitamin Dinsufficiency as a level between 21 and 29 ng/mL (2).1. IOM ([place] of Medicine). 2010. Dietary reference intakes for calcium and D. [place]: The National Academies Press.2. Marcos MF, Hemalatha [place], Amado GUTIERREZ, et al. Evaluation, treatment, and prevention of vitamin D deficiency: an Endocrine Society clinical practice guideline. JCEM. 2010; 96(7):1911-30. PATIENT WAS FASTINGP ERFORMED BY: [employer] Zefqmh0436 [facility]Miss[facility] [id number] HEPATIC FUNCTION PANEL (8007 6)Ordered By: Banding Machine Operator on 12-04-2013 Albumin [Mass/Vol] 4.0 g/dL Normal 3.5-5.5 [facility] Internal Medicine; [facility] Work Phone: Comment on above: PATIENT NOT FASTINGP ERFORMED BY: Seeo Qmdjxo4730 [facility] [id number] Information: [id number] ALP [Catalytic activity/Vol] 132 U/L Abnormal 39-117 [facility]; [facility] Work Phone: Comment on above: PATIENT NOT FASTINGP ERFORMED BY: [facility] ScanlonCosourav TristanEeizyz7020 [address] [facility]in [place] [id number] Information: [id number],Q22585 ALT [Catalytic activity/Vol] 14 U/L Normal 0-32 [facility]; [facility] Work Phone: Comment on above: PATIENT NOT FASTINGP ERFORMED BY: [facility] LabCosourav VazquezAfelsp4044 Ga [facility] Hospital [id number] Information: 768503,[id number] AST [Catalytic activity/Vol] 20 U/L Normal 0-40 [facility]; [facility] Work Phone: Comment on above: PATIENT NOT FASTINGP ERFORMED BY: [facility] LabCosourav TristanHgshfh2406 Ga [facility] [id number] Information: 621336,X50957 Bilirubin [Mass/Vol] 0.2 mg/dL Normal 0.0-1.2 Comp [facility] Internal Medicine; [facility] Work Phone: Comment on above: PATIENT NOT FASTINGP ERFORMED BY: [facility] LabCo Reivqo3304 [facility] [id number] Information: 927348,O32519 Bilirubin.direct [Mass/Vol] 0.07 mg/dL Normal 0.00-0.40 [facility]; [facility] Work Phone: Comment on above: PATIENT NOT FASTINGP ERFORMED BY: [facility] LabCo Gmtken5411 [facility] [id number] Information: 022374,Z51215 Protein [Mass/Vol] 6.4 g/dL Normal 6.0-8.5 [facility] Internal [facility]; [facility] Work Phone: Comment on above: PATIENT NOT FASTINGP ERFORMED BY: [facility] LabCosourav VazquezZygwyc8166 GaJ.W[facility] Ruby [facility] Hospitalin [place] [id number] Information: 760298,N24684 HEPATIC FUNCTION PANEL (8007 6)Ordered By: Banding Machine Operator on 07-22-2013 Albumin [Mass/Vol] 4.3 g/dL Normal 3.5-5.5 Compre hensive Internal Medicine; [facility] Work Phone: Comment on above: PATIENT NOT FASTINGP ERFORMED BY: [facility] Tristan6370 [facility] [id number] Information: [id number], 952997 ALP [Catalytic activity/Vol] 122 U/L Abnormal 39-117 [facility]; [facility] Work Phone: Comment on above: PATIENT NOT FASTINGP ERFORMED BY: [facility] Tristan6370 [facility] [id number] Information: [id number], [id number] ALT [Catalytic activity/Vol] 17 U/L Normal 0-32 [facility]; [facility] Work Phone: Comment on above: PATIENT NOT FASTINGP ERFORMED BY: [facility] Vazquezlin6370 [facility] [id number] Information: [id number], [id number] AST [Catalytic activity/Vol] 20 U/L Normal 0-40 [facility]; [facility] Work Phone: Comment on above: PATIENT NOT FASTINGP ERFORMED BY: [facility] Tristan6370 [facility] [id number] Information: A97565, 817741 Bilirubin [Mass/Vol] 0.3 mg/dL Normal 0.0-1.2 [facility]; [facility] Work Phone: Comment on above: PATIENT NOT FASTINGP ERFORMED BY: [facility] ScanlonCo Ogoxzr6995 [facility] [id number] Information: Z97318, 285403 Bilirubin.direct [Mass/Vol] 0.10 mg/dL Normal 0.00-0.40 [facility]; [facility] Work Phone: Comment on above: PATIENT NOT FASTINGP ERFORMED BY: [facility] ScanlonCo Uaucia3622 [facility] [id number] Information: P86721, 522605 Protein [Mass/Vol] 6.9 g/dL Normal 6.0-8.5 [facility] Internal Medicine; [facility] Work Phone: Comment on above: PATIENT NOT FASTINGP ERFORMED BY: [facility] Ga [facility] HealthStevenblin [place] [id number] Information: F16177, 589062 Vitamin D Hydroxy (86638)Ord ered By: Banding Machine Operator on 07-22-2013 25-hydroxyvitamin D [Mass/Vol] 44.0 ng/mL Normal 30.0-100.0 [facility]; [facility] Work Phone: Comment on above: Vitamin D deficiency has been defined by the [place] ofOhio[facility] Hospitalcine and an Endocrine Society practice guideline as alevel of serum 25-OH vitamin D less than 20 ng/mL (1,2).The Endocrine Society went on to further define vitamin Dinsufficiency as a level between 21 and 29 ng/mL (2).1. IOM ([place] of Medicine). 2010. Dietary reference intakes for calcium and D. [place]: The National Academies Press.2. Marcos MF, Hemalatha WILKS, Amado GUTIERREZ, et al. Evaluation, treatment, and prevention of vitamin D deficiency: an Endocrine Society clinical practice guideline. JCEM. 2010; 96(7):1911-30. PATIENT NOT FASTINGP ERFORMED BY: [facility] Vazquezlin6370 Ga [facility] Centerbl[facility] [place] [id number] ALKALINE PHOSPHATASE (18077) Ordered By: Banding Machine Operator on 05-15-2013 ALP [Catalytic activity/Vol] 126 U/L Abnormal 39-117 [facility]; [facility] Work Phone: Comment on above: PATIENT NOT FASTINGP ERFORMED BY: [facility] Duuobh8912 Ga [facility] Centerbl[facility] [place] [id number] Information: 981437,Z55374 Alkaline Phosphatase (99057) Ordered By: Banding Machine Operator on 03-20-2013 ALP [Catalytic activity/Vol] 125 U/L Abnormal 39-117 [facility]; [facility] Work Phone: Comment on above: PATIENT NOT FASTINGP ERFORMED BY: [facility] Urzeub0141 [address] Rel[facility] SoftwareFormerly [facility] [id number] Information: 869481,I61903 GGT (Gamma Glutamyl Transfer ase) (91366)Ordered By: Banding Machine Operator on 03-20-2013 Gamma glutamyl transferase [Catalytic activity/Vol] 34 U/L Normal 0-60 [facility]; [facility] Work Phone: Comment on above: PATIENT NOT FASTINGP ERFORMED BY: [facility] Fsfqct2604 Ga [facility] [id number] URINE LIMA CULTURE-TRAY COL C OUNT (86260)Ordered By: Banding Machine Operator on 02-28-2013 Bacteria identified Cx Nom (U) Final report Normal [facility]; [facility] Work Phone: Comment on above: PATIENT NOT FASTINGP ERFORMED BY: [facility] Ihwzom9304 [facility] [id number] Information: SRC:UR S40327 Bacteria identified Cx Nom (U) Escherichia coli Normal [facility]; [facility] Work Phone: Comment on above: Greater than 100,000 colony forming units per mL PATIENT NOT FASTINGP ERFORMED BY: [facility] Jfulit3983 [facility] [id number] Information: SRC:UR C43760 Other Antibiotic [Susc] MIHEAD Normal [facility] [...] PATIENT NOT FASTINGP ERFORMED BY: [facility] Bhoyin8400 [facility] [id number] Information: SRC:UR T63936 Urinalysis, Office (12304)Or dered By: Dee Dee Jimenez on 02-27-2013 [...] Medicine Work Phone: CBC WITH MANUAL DIFF (98436) Ordered By: Banding Machine Operator on 02-07-2013 Basophils (Bld) [#/Vol] 0.0 10*3/uL Normal 0.0-0.2 [facility]; [facility] Work Phone: Comment on above: PATIENT WAS FASTINGP ERFORMED BY: [employer] LabCoElastic Intelligence70 HipSwapFormerly [facility] [id number] Information: 076301,M34492 Basophils/100 WBC (Bld) 1 % Normal 0-3 [facility]; [facility] Work Phone: Comment on above: PATIENT WAS FASTINGP ERFORMED BY: Shopperception6370 HipSwapFormerly [facility] [id number] Information: 327059,T29515 Eosinophils (Bld) [#/Vol] 0.3 10*3/uL Normal 0.0-0.4 [facility]; [facility] Work Phone: Comment on above: PATIENT WAS FASTINGP ERFORMED BY: [facility] Licea Qqthnh7799 [facility] [id number] Information: 169560,N56755 Eosinophils/100 WBC (Bld) 5 % Normal 0-5 [facility]; [facility] Work Phone: Comment on above: PATIENT WAS FASTINGP ERFORMED BY: [address] [id number] Information: 857660,H35136 Erythrocyte distribution width (RBC) [Ratio] 14.3 % Normal 12.3-15.4 [facility]; [facility] Work Phone: Comment on above: PATIENT WAS FASTINGP ERFORMED BY: [address] [id number] Information: 648099,F36984 Hematocrit (Bld) [Volume fraction] 39.4 % Normal 34.0-46.6 [facility]; [facility] Work Phone: Comment on above: PATIENT WAS FASTINGP ERFORMED BY: [address] [id number] Information: 296913,R74062 Hemoglobin (Bld) [Mass/Vol] 12.9 g/dL Normal 11.1-15.9 [facility]; [facility] Work Phone: Comment on above: PATIENT WAS FASTINGP ERFORMED BY: [place] 0282970 [facility] [id number] Information: 933596,B93831 Immature granulocytes (Bld) [#/Vol] 0.0 10*3/uL Normal 0.0-0.1 [facility]; [facility] Work Phone: Comment on above: PATIENT WAS FASTINGP ERFORMED BY: [address] [id number] Information: 242932,G04426 Immature granulocytes/100 WBC (Bld) 0 % Normal 0-2 [facility]; [facility] Work Phone: Comment on above: PATIENT WAS FASTINGP ERFORMED BY: [facility] [address] [id number] Information: 544361,I03456 Lymphocytes (Bld) [#/Vol] 2.0 10*3/uL Normal 0.7-3.1 [facility]; [facility] Work Phone: Comment on above: PATIENT WAS FASTINGP ERFORMED BY: [address] [id number] Information: 403136,P21317 Lymphocytes/100 WBC (Bld) 35 % Normal 14-46 [facility]; [facility] Work Phone: Comment on above: PATIENT WAS FASTINGP ERFORMED BY: [facility]6370 [facility] [id number] Information: 591321,N31338 MCH (RBC) [Entitic mass] 30.3 pg Normal 26.6-33.0 [facility] Internal Medicine; [facility] Work Phone: Comment on above: PATIENT WAS FASTINGP ERFORMED BY: [place] 0282970 [facility] [id number] Information: 676430,Z93848 MCHC (RBC) [Mass/Vol] 32.7 g/dL Normal 31.5-35.7 [facility] prehensive Internal Medicine; [facility] Work Phone: Comment on above: PATIENT WAS FASTINGP ERFORMED BY: [address] [id number] Information: 732463,G85820 MCV (RBC) [Entitic vol] 93 fL Normal 79-97 [facility]; [facility] Work Phone: Comment on above: PATIENT WAS FASTINGP ERFORMED BY: [place] [address] [facility] [facility] HealthStevenFormerly [facility] [id number] Information: [id number],I46114 Monocytes (Bld) [#/Vol] 0.4 10*3/uL Normal 0.1-0.9 [facility]; [facility] Work Phone: Comment on above: PATIENT WAS FASTINGP ERFORMED BY: [facility] Tristan6370 S[facility] [id number] Information: 237617,W39625 Monocytes/100 WBC (Bld) 6 % Normal 4-12 [facility]; [facility] Work Phone: Comment on above: PATIENT WAS FASTINGP ERFORMED BY: [facility] Tristan63Josué [facility]omoM[facility] Hospital [id number] Information: 519392,I89006 Neutrophils (Bld) [#/Vol] 3.1 10*3/uL Normal 1.4-7.0 [facility]; [facility] Work Phone: Comment on above: PATIENT WAS FASTINGP ERFORMED BY: [facility] Tristan6370 [facility] [id number] Information: 228929,N66217 Neutrophils/100 WBC (Bld) 53 % Normal 40-74 [facility]; [facility] Work Phone: Comment on above: PATIENT WAS FASTINGP ERFORMED BY: [facility] Tristan6370 [facility] [id number] Information: [id number],D85770 Platelets (Bld) [#/Vol] 292 10*3/uL Normal 155-379 [facility]; [facility] Work Phone: Comment on above: PATIENT WAS FASTINGP ERFORMED BY: [facility] Tristan6370 [facility] [id number] Information: [id number] RBC (Bld) [#/Vol] 4.26 10*6/uL Normal 3.77-5.28 [facility] Internal Medicine; [facility] Work Phone: Comment on above: PATIENT WAS FASTINGP ERFORMED BY: [facility] Vazquezlin6370 [facility] [id number] Information: [id number] WBC (Bld) [#/Vol] 5.8 10*3/uL Normal 3.4-10.8 [facility] Internal Medicine; [facility] Work Phone: Comment on above: PATIENT WAS FASTINGP ERFORMED BY: [facility] Vazquezlin6370 [facility] [id number] Information: [id number] LIPID PANEL ([id number])Ordered B y: Banding Machine Operator on 02-07-2013 Cholesterol [Mass/Vol] 170 mg/dL Normal 100-199 [facility] Internal Medicine; [facility] Work Phone: Comment on above: PATIENT WAS FASTINGP ERFORMED BY: [facility]AI Licea Pkidrd7497 [facility] [id number] Cholesterol in HDL [Mass/Vol] 48 mg/dL Normal [facility]; [facility] Work Phone: Comment on above: According to ATP-III Guidelines, HDL-C >59 mg/dL is considered anegative risk factor for CHD. PATIENT WAS FASTINGP ERFORMED BY: [facility] Vazquezlin6370 [facility] [id number] Cholesterol in LDL [Mass/Vol] 101 mg/dL Abnormal 0-99 [facility]; [facility] Work Phone: Comment on above: PATIENT WAS FASTINGP ERFORMED BY: [facility] Jlzarm0910 [facility] [id number] Cholesterol in LDL/Cholesterol in HDL [Mass ratio] 2.1 {ratio_units} Normal 0.0-3.2 [facility]; [facility] Work Phone: Comment on above: PATIENT WAS FASTINGP ERFORMED BY: [facility] Gthejb6733 [facility] [id number] Cholesterol in VLDL [Mass/Vol] 21 mg/dL Normal 5-40 [facility]; [facility] Work Phone: Comment on above: PATIENT WAS FASTINGP ERFORMED BY: CB [facility] Awteug[address] [place] [id number] Triglyceride [Mass/Vol] 103 mg/dL Normal 0-149 [facility]; [facility] Work Phone: Comment on above: PATIENT WAS FASTINGP ERFORMED BY: CB [facility] Vdrirn7178 [address] Road[address] [place] [id number] METABOLIC PANEL, COMPREHENSI VE ([id number])Ordered By: Banding Machine Operator on 02-07-2013 Albumin [Mass/Vol] 4.2 g/dL Normal 3.5-5.5 [facility] Internal Medicine; [facility] Work Phone: Comment on above: PATIENT WAS FASTINGP ERFORMED BY: CB [facility] [id number] RoadD[address] [place] [id number] Albumin/Globulin [Mass ratio] 1.6 {ratio} Normal 1.1-2.5 [facility]; [facility] Work Phone: Comment on above: PATIENT WAS FASTINGP ERFORMED BY: CB [facility] Fhdikf8[address] Road[address] [place] [id number] ALP [Catalytic activity/Vol] 130 U/L Abnormal 42-107 [facility]; [facility] Work Phone: Comment on above: PATIENT WAS FASTINGP ERFORMED BY: CB [facility] Sjnczz7760 [address] RoadD[address] [place] [id number] ALT [Catalytic activity/Vol] 19 U/L Normal 0-32 [facility]; [facility] Work Phone: Comment on above: PATIENT WAS FASTINGP ERFORMED BY: CB [facility] Bnglrq8184 [address] RoadD[address] [place] [id number] AST [Catalytic activity/Vol] 21 U/L Normal 0-40 [facility]; [facility] Work Phone: Comment on above: PATIENT WAS FASTINGP ERFORMED BY: CB [facility] Ghsobu5[address] [place] [id number] Bilirubin [Mass/Vol] 0.3 mg/dL Normal 0.0-1.2 [facility]; [facility] Work Phone: Comment on above: PATIENT WAS FASTINGP ERFORMED BY: CB [facility] Azxfiy1736 [address] RoadD[address] [place] [id number] Calcium [Mass/Vol] 9.7 mg/dL Normal 8.7-10.2 [facility]; [facility] Work Phone: Comment on above: PATIENT WAS FASTINGP ERFORMED BY: CB [facility] [id number] [address] RoadD[address] [place] [id number] Chloride [Moles/Vol] 107 mmol/L Normal 97-108 [facility]; [facility] Work Phone: Comment on above: PATIENT WAS FASTINGP ERFORMED BY: CB [facility] Ovkqna86[address] [place] [id number] CO2 [Moles/Vol] 24 mmol/L Normal 19-28 [facility]; [facility] Work Phone: Comment on above: PATIENT WAS FASTINGP ERFORMED BY: [facility] Yuxcgw6117 [address]Duin [place] [id number] Creatinine [Mass/Vol] 0.62 mg/dL Normal 0.57-1.00 [facility]; [facility] Work Phone: Comment on above: PATIENT WAS FASTINGP ERFORMED BY: [facility] Kppugy74[address] RoadDuin [place] [id number] GFR/1.73 sq M.predicted among blacks CKD-EPI (S/P/Bld) [Vol rate/Area] 116 mL/min/1.73 Normal [facility]; [facility] Work Phone: Comment on above: PATIENT WAS FASTINGP ERFORMED BY: [facility] Fswefp8385 [address] RoadD[address] [place] [id number] GFR/1.73 sq M.predicted among non-blacks CKD-EPI (S/P/Bld) [Vol rate/Area] 100 mL/min/1.73 Normal [facility]; [facility] Work Phone: Comment on above: PATIENT WAS FASTINGP ERFORMED BY: [facility] Hbkrzi6904 [address] RoadD[address] [place] [id number] Globulin (S) [Mass/Vol] 2.6 g/dL Normal 1.5-4.5 [facility]; [facility] Work Phone: Comment on above: PATIENT WAS FASTINGP ERFORMED BY: [facility] Zcfrlx9073 [address] RoadD[address] [place] [id number] Glucose [Mass/Vol] 95 mg/dL Normal 65-99 [facility]; [facility] Work Phone: Comment on above: PATIENT WAS FASTINGP ERFORMED BY: CB [facility] Lquyrs1637 [address] RoadD[address] [place] [id number] Potassium [Moles/Vol] 4.5 mmol/L Normal 3.5-5.2 [facility]; [facility] Work Phone: Comment on above: PATIENT WAS FASTINGP ERFORMED BY: [facility] Ylcsvj5808 [address]bl[address] [place] [id number] Protein [Mass/Vol] 6.8 g/dL Normal 6.0-8.5 [facility] Internal Medicine; [facility] Work Phone: Comment on above: PATIENT WAS FASTINGP ERFORMED BY: [facility] Hyfemq37[address] RoadD[address] [place] [id number] Sodium [Moles/Vol] 144 mmol/L Normal 134-144 [facility] Internal Medicine; [facility] Work Phone: Comment on above: PATIENT WAS FASTINGP ERFORMED BY: [facility] Ihlttx27[address] RoadD[address] [place] [id number] Urea nitrogen [Mass/Vol] 10 mg/dL Normal 6-24 [facility] Internal Medicine; [facility] Work Phone: Comment on above: PATIENT WAS FASTINGP ERFORMED BY: [facility] Yurdcu8935 [address] RoadD[address] [place] [id number] Urea nitrogen/Creatinine [Mass ratio] 16 mg/mg Normal 9-23 [facility]; [facility] Work Phone: Comment on above: PATIENT WAS FASTINGP ERFORMED BY: [facility] Uirnnx86[address] [facility] Center[facility] [place] [id number] TSH ([id number])Ordered By: Gabe m Tellers Supervisor on 02-07-2013 TSH Qn 0.660 {uIU/mL} Normal 0.450-4.500 [facility] Internal Medicine; [facility] Work Phone: Comment on above: PATIENT WAS FASTINGP ERFORMED BY: [facility] Drfsww5976 [facility] [id number] Vitamin D Hydroxy ([id number])Ord ered By: Banding Machine Operator on 02-07-2013 25-hydroxyvitamin D [Mass/Vol] 55.8 ng/mL Normal 30.0-100.0 [facility]; [facility] Work Phone: Comment on above: Vitamin D deficiency has been defined by the [place] of[facility] and an Endocrine Society practice guideline as alevel of serum 25-OH vitamin D less than 20 ng/mL (1,2).The Endocrine Society went on to further define vitamin Dinsufficiency as a level between 21 and 29 ng/mL (2).1. IOM ([place] of Medicine). 2010. Dietary reference intakes for calcium and D. [place]: The National Academies Press.2. Marcos MF, [place], Amado GUTIERREZ, et al. Evaluation, treatment, and prevention of vitamin D deficiency: an Endocrine Society clinical practice guideline. JCEM. 2010; 96(7):1911-30. PATIENT WAS FASTINGP ERFORMED BY: [facility] Gozvgv6953 [facility] [id number] URINE LIMA CULTURE-TRAY COL C OUNT ([id number])Ordered By: Yudelka Hale on 01-20-2009 Bacteria identified Cx Nom (U) Final report Normal [facility]; [facility] Work Phone: Comment on above: PATIENT NOT FASTINGC linical Information: SRC:MERLINE ELISE [id number] PERFORMED BY: [facility] Lqzbxb3970 [facility] [id number] Bacteria identified Cx Nom (U) [id number] Normal [facility]; [facility] Work Phone: Comment on above: No growth in 36 - 48 hours. PATIENT NOT FASTINGC linical Information: SRC:UR ADD [id number] PERFORMED BY: [facility]Co[facility] RiverQynnxg3706 [facility] [id number] Urinalysis, Office ([id number])Or dered By: Radhika Dooley on 01-19-2009 Bilirubin [...] Time Vital Sign Value Performing Clinician Facility 11-26-2024 14:01-0400 Body height 167.[address] Dennis Marcial MD Work Phone: [facility] 11-26-2024 14:01-0400 Body mass index (BMI) [Ratio] 31.1 kg/m2 Dr. Dennis Marcial MD Work Phone: [facility] 11-26-2024 14:01-0400 Body weight 87.[address] Dennis Marcial MD Work Phone: [facility] 11-26-2024 14:01-0400 Diastolic blood pressure 63 mm[Hg] Dr. Dennis Marcial MD Work Phone: [facility] 11-26-2024 14:01-0400 Heart rate 78 /min Dr. Dennis Marcial MD Work Phone: [facility] 11-26-2024 14:01-0400 Respiratory rate 18 /min Dr. Dennis Marcial MD Work Phone: [facility] 11-26-2024 14:01-0400 SaO2% (BldA) [Mass fraction] 92 % Dr. Dennis Marcial MD Work Phone: [facility] 11-26-2024 14:01-0400 Systolic blood pressure 107 mm[Hg] Dr. Dennis Marcial MD Work Phone: [facility] 10-28-2024 15:35-0400 Body height 163.8 cm Dennis Marcial MD Work Phone: [facility] 10-28-2024 15:35-0400 Body mass index (BMI) [Ratio] 33.12 kg/m2 Dennis Marcial MD Work Phone: [facility] 10-28-2024 15:35-0400 Body temperature 97.5 [degF] Dennis Marcial MD Work Phone: [facility] 10-28-2024 15:35-0400 Body weight 88.91 kg Dennis Marcial MD Work Phone: [facility] 10-28-2024 15:35-0400 Diastolic blood pressure 74 mm[Hg] Dennis Marcial MD Work Phone: [facility] 10-28-2024 15:35-0400 Heart rate 97 /min Dennis Marcial MD Work Phone: [facility] 10-28-2024 15:35-0400 Respiratory rate 16 /min Dennis Marcial MD Work Phone: [facility] 10-28-2024 15:35-0400 SaO2% (BldA) [Mass fraction] 96 % Dennis Marcial MD Work Phone: [facility] 10-28-2024 15:35-0400 Systolic blood pressure 124 mm[Hg] Dennis Marcial MD Work Phone: [facility] 10-08-2024 10:26-0400 Body mass index (BMI) [Ratio] 33.43 kg/m2 Ronald Click FACILITY EXAMINER.QUALITY ENGINEER MEDICAL DEVICE Work Phone: [facility] 10-08-2024 [id number] Body weight 89.81 kg Ronald Click FACILITY EXAMINER.QUALITY ENGINEER MEDICAL DEVICE Work Phone: [facility] 10-08-2024 10:26-0400 Diastolic blood pressure 64 mm[Hg] Ronald Click FACILITY EXAMINER.QUALITY ENGINEER MEDICAL DEVICE Work Phone: [facility] 10-08-2024 10:26-0400 Heart rate 76 /min Ronald Click FACILITY EXAMINER.QUALITY ENGINEER MEDICAL DEVICE Work Phone: [facility] 10-08-2024 10:26-0400 SaO2% (BldA) [Mass fraction] 96 % Ronald Click FACILITY EXAMINER.QUALITY ENGINEER MEDICAL DEVICE Work Phone: [facility] 10-08-2024 10:26-0400 Systolic blood pressure 100 mm[Hg] Ronald Click FACILITY EXAMINER.QUALITY ENGINEER MEDICAL DEVICE Work Phone: [facility] 08-07-2024 10:11-0400 Body mass index (BMI) [Ratio] 33.26 kg/m2 Ronald Click FACILITY EXAMINER.QUALITY ENGINEER MEDICAL DEVICE Work Phone: [facility] [id number] Body weight 89.36 kg Ronald Click FACILITY EXAMINER.QUALITY ENGINEER MEDICAL DEVICE Work Phone: [facility] 08-07-2024 10:11-0400 Diastolic blood pressure 68 mm[Hg] Ronald Click FACILITY EXAMINER.QUALITY ENGINEER MEDICAL DEVICE Work Phone: [facility] 08-07-2024 10:11-0400 Heart rate 68 /min Ronald Click FACILITY EXAMINER.QUALITY ENGINEER MEDICAL DEVICE Work Phone: [facility] 08-07-2024 10:11-0400 Respiratory rate 18 /min Ronald Click FACILITY EXAMINER.QUALITY ENGINEER MEDICAL DEVICE Work Phone: [facility] 08-07-2024 10:11-0400 SaO2% (BldA) [Mass fraction] 97 % Ronald Click FACILITY EXAMINER.QUALITY ENGINEER MEDICAL DEVICE Work Phone: [facility] 08-07-2024 10:11-0400 Systolic blood pressure 108 mm[Hg] Ronald Click FACILITY EXAMINER.QUALITY ENGINEER MEDICAL DEVICE Work Phone: [facility] 08-07-2024 10:04-0400 Body height 163.9 cm Pulm Wstr Work Phone: [facility] 08-07-2024 10:04-0400 Body mass index (BMI) [Ratio] 33.26 kg/m2 Pulm Wstr Work Phone: [facility] 08-07-2024 10:04-0400 Body weight 89.36 kg Pulm Wstr Work Phone: [facility] 08-07-2024 10:04-0400 Respiratory rate 18 /min Pulm Wstr Work Phone: [facility] 07-17-2024 15:26-0400 Body height 167.6 cm Dennis Marcial MD Work Phone: [facility] 07-17-2024 15:26-0400 Body mass index (BMI) [Ratio] 31.31 kg/m2 Dennis Marcial MD Work Phone: [facility] 07-17-2024 15:26-0400 Body temperature 97.59 [degF] Dennis Marcial MD Work Phone: [facility] 07-17-2024 15:26-0400 Body weight 88 kg Dennis Marcial MD Work Phone: [facility] 07-17-2024 15:26-0400 Diastolic blood pressure 84 mm[Hg] Dennis Marcial MD Work Phone: [facility] 07-17-2024 15:26-0400 Heart rate 66 /min Dennis Marcial MD Work Phone: [facility] 07-17-2024 15:26-0400 Respiratory rate 18 /min Dennis Marcial MD Work Phone: [facility] 07-17-2024 15:26-0400 SaO2% (BldA) [Mass fraction] 97 % Dennis Marcial MD Work Phone: [facility] 07-17-2024 15:26-0400 Systolic blood pressure 110 mm[Hg] Dennis Marcial MD Work Phone: [facility] 06-28-2024 10:14-0500 Body mass index (BMI) [Ratio] 32.12 kg/m2 Ronald Click FACILITY EXAMINER.QUALITY ENGINEER MEDICAL DEVICE Work Phone: [facility] 06-28-2024 10:14-0500 Body weight 90.27 kg Ronald Click FACILITY EXAMINER.QUALITY ENGINEER MEDICAL DEVICE Work Phone: [facility] 06-28-2024 10:14-0500 Diastolic blood pressure 72 mm[Hg] Ronald Click FACILITY EXAMINER.QUALITY ENGINEER MEDICAL DEVICE Work Phone: [facility] 06-28-2024 10:14-0500 Heart rate 68 /min Ronald Click FACILITY EXAMINER.QUALITY ENGINEER MEDICAL DEVICE Work Phone: [facility] 06-28-2024 10:14-0500 Respiratory rate 18 /min Ronald Click FACILITY EXAMINER.QUALITY ENGINEER MEDICAL DEVICE Work Phone: [facility] 06-28-2024 10:14-0500 SaO2% (BldA) [Mass fraction] 93 % Ronald Click FACILITY EXAMINER.QUALITY ENGINEER MEDICAL DEVICE Work Phone: [facility] 06-28-2024 10:14-0500 Systolic blood pressure 106 mm[Hg] Ronald Click FACILITY EXAMINER.QUALITY ENGINEER MEDICAL DEVICE Work Phone: [facility] 06-27-2024 09:36-0500 Body mass index (BMI) [Ratio] 32.12 kg/m2 Royer Ford Work Phone: [facility] 06-27-2024 09:36-0500 Body temperature 97.81 [degF] Royer Ford Work Phone: [facility] 06-27-2024 09:36-0500 Body weight 90.27 kg Royer Ford Work Phone: [facility] 06-27-2024 09:36-0500 Diastolic blood pressure 71 mm[Hg] Royer Ford Work Phone: [facility] 06-27-2024 09:36-0500 Heart rate 77 /min Royer Ford Work Phone: [facility] 06-27-2024 09:36-0500 SaO2% (BldA) [Mass fraction] 100 % Royer Ford Work Phone: [facility] 06-27-2024 09:36-0500 Systolic blood pressure 105 mm[Hg] Royer Ford Work Phone: [facility] 06-26-2024 16:03-0500 Body height 167.6 cm Dennis Marcial MD Work Phone: [facility] 06-26-2024 16:03-0500 Body mass index (BMI) [Ratio] 31.8 kg/m2 Dennis Marcial MD Work Phone: [facility] 06-26-2024 16:03-0500 Body temperature 96.91 [degF] Dennis Marcial MD Work Phone: [facility] 06-26-2024 16:03-0500 Body weight 89.36 kg Dennis Marcial MD Work Phone: [facility] 06-26-2024 16:03-0500 Diastolic blood pressure 82 mm[Hg] Dennis Marcial MD Work Phone: [facility] 06-26-2024 16:03-0500 Heart rate 70 /min Dennis Marcial MD Work Phone: [facility] 06-26-2024 16:03-0500 Respiratory rate 18 /min Dennis Marcial MD Work Phone: [facility] 06-26-2024 16:03-0500 SaO2% (BldA) [Mass fraction] 95 % Dennis Marcial MD Work Phone: [facility] 06-26-2024 16:03-0500 Systolic blood pressure 122 mm[Hg] Dennis Marcial MD Work Phone: [facility] 06-20-2024 11:54-0500 Body mass index (BMI) [Ratio] 31.31 kg/m2 Michael Babin MD Work Phone: [facility] 06-20-2024 11:54-0500 Body temperature 99.9 [degF] Michael Babin MD Work Phone: [facility] 06-20-2024 11:54-0500 Body weight 88 kg Michael Babin MD Work Phone: [facility] 06-20-2024 11:54-0500 Diastolic blood pressure 80 mm[Hg] Michael Babin MD Work Phone: [facility] 06-20-2024 11:54-0500 Heart rate 87 /min Michael Babin MD Work Phone: [facility] 06-20-2024 11:54-0500 Respiratory rate 24 /min Michael Babin MD Work Phone: [facility] 06-20-2024 11:54-0500 SaO2% (BldA) [Mass fraction] 94 % Michael Babin MD Work Phone: [facility] 06-20-2024 11:54-0500 Systolic blood pressure 117 mm[Hg] Michael Babin MD Work Phone: [facility] 06-08-2024 17:42-0500 Body temperature 97.9 [degF] Dr. Dennis Marcial MD Work Phone: [facility] 06-08-2024 17:42-0500 Diastolic blood pressure 74 mm[Hg] Dr. Dennis Marcial MD Work Phone: [facility] 06-08-2024 17:42-0500 Heart rate 71 /min Dr. Dennis Marcial MD Work Phone: [facility] 06-08-2024 17:42-0500 Respiratory rate 16 /min Dr. Dennis Marcial MD Work Phone: [facility] 06-08-2024 17:42-0500 SaO2% (BldA) [Mass fraction] 99 % Dr. Dennis Marcial MD Work Phone: [facility] 06-08-2024 17:42-0500 Systolic blood pressure 110 mm[Hg] Dr. Dennis Marcial MD Work Phone: [facility] 06-08-2024 15:10-0500 Body height 167.[address] Dennis Marcial MD Work Phone: [facility] 06-08-2024 15:10-0500 Body mass index (BMI) [Ratio] 32.1 kg/m2 Dr. Dennis Marcial MD Work Phone: [facility] 06-08-2024 15:10-0500 Body weight 90.[address] Dennis Marcial MD Work Phone: [facility] 05-09-2024 10:41-0500 Body mass index (BMI) [Ratio] 31.42 kg/m2 Tima López APRN.QUALITY ENGINEER MEDICAL DEVICE Work Phone: [facility] 05-09-2024 10:41-0500 Body temperature 97.2 [degF] Tima López APRN.QUALITY ENGINEER MEDICAL DEVICE Work Phone: [facility] 05-09-2024 10:41-0500 Body weight 88.3 kg Tima López APRN.QUALITY ENGINEER MEDICAL DEVICE Work Phone: [facility] 05-09-2024 10:41-0500 Diastolic blood pressure 64 mm[Hg] Tima López APRN.QUALITY ENGINEER MEDICAL DEVICE Work Phone: [facility] 05-09-2024 10:41-0500 Heart rate 75 /min Tima Lóepz APRN.QUALITY ENGINEER MEDICAL DEVICE Work Phone: [facility] 05-09-2024 10:41-0500 Respiratory rate 22 /min Tima López APRN.QUALITY ENGINEER MEDICAL DEVICE Work Phone: [facility] 05-09-2024 10:41-0500 SaO2% (BldA) [Mass fraction] 96 % Tima López APRN.QUALITY ENGINEER MEDICAL DEVICE Work Phone: [facility] 05-09-2024 10:41-0500 Systolic blood pressure 98 mm[Hg] Tima López APRN.QUALITY ENGINEER MEDICAL DEVICE Work Phone: [facility] 04-17-2024 15:12-0500 Body height 167.6 cm Dennis Marcial MD Work Phone: [facility] 04-17-2024 15:12-0500 Body mass index (BMI) [Ratio] 30.99 kg/m2 Dennis Marcial MD Work Phone: [facility] 04-17-2024 15:12-0500 Body temperature 98.01 [degF] Dennis Marcial MD Work Phone: [facility] 04-17-2024 15:12-0500 Body weight 87.09 kg Dennis Marcial MD Work Phone: [facility] 04-17-2024 15:12-0500 Diastolic blood pressure 78 mm[Hg] Dennis Marcial MD Work Phone: [facility] 04-17-2024 15:12-0500 Heart rate 76 /min Dennis Marcial MD Work Phone: [facility] 04-17-2024 15:12-0500 Respiratory rate 18 /min Dennis Marcial MD Work Phone: [facility] 04-17-2024 15:12-0500 SaO2% (BldA) [Mass fraction] 94 % Dennis Marcial MD Work Phone: [facility] 04-17-2024 15:12-0500 Systolic blood pressure 124 mm[Hg] Dennis Marcial MD Work Phone: [facility] 02-12-2024 11:20-0400 Body height 167.6 cm Dennis Marcial MD Work Phone: [facility] 02-12-2024 11:20-0400 Body mass index (BMI) [Ratio] 31.15 kg/m2 Dennis Marical MD Work Phone: [facility] 02-12-2024 11:20-0400 Body temperature 97 [degF] Dennis Marcial MD Work Phone: [facility] 02-12-2024 11:20-0400 Body weight 87.54 kg Dennis Marcial MD Work Phone: [facility] 02-12-2024 11:20-0400 Diastolic blood pressure 74 mm[Hg] Dennis Marcial MD Work Phone: [facility] 02-12-2024 11:20-0400 Heart rate 86 /min Dennis Marcial MD Work Phone: [facility] 02-12-2024 11:20-0400 Respiratory rate 18 /min Dennis Marcial MD Work Phone: [facility] 02-12-2024 11:20-0400 SaO2% (BldA) [Mass fraction] 96 % Dennis Marcial MD [facility] Phone: [facility] [facility] 02-12-2024 11:20-0400 Systolic blood pressure 112 mm[Hg] Dennis Marcial MD Work Phone: [facility] 01-20-2024 10:07-0400 Body mass index (BMI) [Ratio] 31.03 kg/m2 Jaspreet Praisler-Wood FACILITY EXAMINER.QUALITY ENGINEER MEDICAL DEVICE Work Phone: [facility] 01-20-2024 10:07-0400 Body temperature 96.6 [degF] Jaspreet Praisler-Wood FACILITY EXAMINER.QUALITY ENGINEER MEDICAL DEVICE Work Phone: [facility] 01-20-2024 10:07-0400 Body weight 87.2 kg Jaspreet Praisler-Wood FACILITY EXAMINER.QUALITY ENGINEER MEDICAL DEVICE Work Phone: [facility] 01-20-2024 10:07-0400 Diastolic blood pressure 64 mm[Hg] Jaspreet Praisler-Wood FACILITY EXAMINER.QUALITY ENGINEER MEDICAL DEVICE Work Phone: [facility] 01-20-2024 10:07-0400 Heart rate 78 /min Jaspreet Praisler-Wood FACILITY EXAMINER.QUALITY ENGINEER MEDICAL DEVICE Work Phone: [facility] 01-20-2024 10:07-0400 Respiratory rate 16 /min Jaspreet Praisler-Wood FACILITY EXAMINER.QUALITY ENGINEER MEDICAL DEVICE Work Phone: [facility] 01-20-2024 10:07-0400 SaO2% (BldA) [Mass fraction] 96 % Jaspreet Praisler-Wood FACILITY EXAMINER.QUALITY ENGINEER MEDICAL DEVICE Work Phone: [facility] 01-20-2024 10:07-0400 Systolic blood pressure 112 mm[Hg] Jaspreet Praisler-Wood FACILITY EXAMINER.QUALITY ENGINEER MEDICAL DEVICE Work Phone: [facility] 12-26-2023 10:17-0400 Body mass index (BMI) [Ratio] 31.8 kg/m2 Oscar Mireles MD Work Phone: [facility] 12-26-2023 10:17-0400 Body weight 89.36 kg Oscar Mireles MD Work Phone: [facility] 12-26-2023 10:17-0400 Diastolic blood pressure 68 mm[Hg] Oscar Mireles MD Work Phone: [facility] 12-26-2023 10:17-0400 Heart rate 73 /min Oscar Mireles MD Work Phone: [facility] 12-26-2023 10:17-0400 Respiratory rate 16 /min Oscar Mireles MD Work Phone: [facility] 12-26-2023 10:17-0400 SaO2% (BldA) [Mass fraction] 95 % Oscar Mireles MD Work Phone: [facility] 12-26-2023 10:17-0400 Systolic blood pressure 107 mm[Hg] Oscar Mireles MD Work Phone: [facility] 12-26-2023 10:08-0400 Body mass index (BMI) [Ratio] 31.8 kg/m2 Shane Steward MD Work Phone: [facility] 12-26-2023 10:08-0400 Body temperature 97.59 [degF] Shane Stweard MD Work Phone: [facility] 12-26-2023 10:08-0400 Body weight 89.36 kg Shane Steward MD Work Phone: [facility] 12-26-2023 10:08-0400 Diastolic blood pressure 68 mm[Hg] Shane Steward MD Work Phone: [facility] 12-26-2023 10:08-0400 Heart rate 73 /min Shane Steward MD Work Phone: [facility] 12-26-2023 10:08-0400 SaO2% (BldA) [Mass fraction] 95 % Shane Steward MD Work Phone: [facility] 12-26-2023 10:08-0400 Systolic blood pressure 107 mm[Hg] Shane Steward MD Work Phone: [facility] 11-25-2023 10:14-0400 Body mass index (BMI) [Ratio] 31.35 kg/m2 Tima López APRN.QUALITY ENGINEER MEDICAL DEVICE Work Phone: [facility] 11-25-2023 10:14-0400 Body temperature 97 [degF] Tima López APRN.QUALITY ENGINEER MEDICAL DEVICE Work Phone: [facility] 11-25-2023 10:14-0400 Body weight 88.1 kg Tima López APRN.QUALITY ENGINEER MEDICAL DEVICE Work Phone: [facility] 11-25-2023 10:14-0400 Diastolic blood pressure 68 mm[Hg] Tima López APRN.QUALITY ENGINEER MEDICAL DEVICE Work Phone: [facility] 11-25-2023 10:14-0400 Heart rate 78 /min Tima López APRN.QUALITY ENGINEER MEDICAL DEVICE Work Phone: [facility] 11-25-2023 10:14-0400 Respiratory rate 16 /min Tima López APRN.QUALITY ENGINEER MEDICAL DEVICE Work Phone: [facility] 11-25-2023 10:14-0400 SaO2% (BldA) [Mass fraction] 97 % Tima López APRN.QUALITY ENGINEER MEDICAL DEVICE Work Phone: [facility] 11-25-2023 10:14-0400 Systolic blood pressure 124 mm[Hg] Tima López APRN.QUALITY ENGINEER MEDICAL DEVICE Work Phone: [facility] 08-23-2023 11:03-0400 Body height 167.6 cm Dennis Marcial MD Work Phone: [facility] 08-23-2023 11:03-0400 Body temperature 98.01 [degF] Dennis Marcial MD Work Phone: [facility] 08-23-2023 11:03-0400 Body weight 87.45 kg Dennis Marcial MD Work Phone: [facility] 08-23-2023 11:03-0400 Diastolic blood pressure 84 mm[Hg] Dennis Marcial MD Work Phone: [facility] 08-23-2023 11:03-0400 Heart rate 82 /min Dennis Marcial MD Work Phone: [facility] 08-23-2023 11:03-0400 Respiratory rate 18 /min Dennis Marcial MD Work Phone: [facility] 08-23-2023 11:03-0400 SaO2% (BldA) [Mass fraction] 96 % Dennis Marcial MD Work Phone: [facility] 08-23-2023 11:03-0400 Systolic blood pressure 128 mm[Hg] Dennis Marcial MD Work Phone: [facility] 06-21-2023 08:27-0500 Body temperature 97.11 [degF] Shane Steward MD Work Phone: [facility] 06-21-2023 08:27-0500 Body weight 83.69 kg Shane Steward MD Work Phone: [facility] 06-21-2023 08:27-0500 Diastolic blood pressure 67 mm[Hg] Shane Steward MD Work Phone: [facility] 06-21-2023 08:27-0500 Heart rate 77 /min Shane Steward MD Work Phone: [facility] 06-21-2023 08:27-0500 SaO2% (BldA) [Mass fraction] 99 % Shane Steward MD Work Phone: [facility] 06-21-2023 08:27-0500 Systolic blood pressure 107 mm[Hg] Shane Steward MD Work Phone: [facility] 06-19-2023 11:50-0500 Diastolic blood pressure 65 mm[Hg] Hunter Posadas MD Work Phone: [facility] 06-19-2023 11:50-0500 Heart rate 72 /min Hunter Posadas MD Work Phone: [facility] 06-19-2023 11:50-0500 Respiratory rate 18 /min Hunter Posadas MD Work Phone: [facility] 06-19-2023 11:50-0500 SaO2% (BldA) [Mass fraction] 98 % Hunter Posadas MD Work Phone: [facility] 06-19-2023 11:50-0500 Systolic blood pressure 108 mm[Hg] Hunter Posadas MD Work Phone: [facility] 06-19-2023 10:23-0500 Body temperature 98.01 [degF] Hunter Posadas MD Work Phone: [facility] 06-19-2023 08:49-0500 Body height 167.6 cm Hunter Posadas MD Work Phone: [facility] 06-19-2023 08:49-0500 Body weight 83.92 kg Hunter Posadas MD Work Phone: [facility] 05-10-2023 16:26-0500 Body height 162.6 cm Dennis Marcial MD Work Phone: [facility] 05-10-2023 16:26-0500 Body temperature 97.81 [degF] Dennis Marcial MD Work Phone: [facility] 05-10-2023 16:26-0500 Body weight 84.94 kg Dennis Marcial MD Work Phone: [facility] 05-10-2023 16:26-0500 Diastolic blood pressure 74 mm[Hg] Dennis Marcial MD Work Phone: [facility] 05-10-2023 16:26-0500 Heart rate 81 /min Dennis Marcial MD Work Phone: [facility] 05-10-2023 16:26-0500 Respiratory rate 16 /min Dennis Marcial MD Work Phone: [facility] 05-10-2023 16:26-0500 Systolic blood pressure 110 mm[Hg] Dennis Marcial MD Work Phone: [facility] 03-06-2023 08:23-0400 Body height 162.6 cm Jayne Woods PA-C Work Phone: [facility] 03-06-2023 08:23-0400 Body weight 85.32 kg Jayne Woods PA-C Work Phone: [facility] 03-06-2023 08:23-0400 Diastolic blood pressure 70 mm[Hg] Jayne Woods PA-C Work Phone: [facility] 03-06-2023 08:23-0400 Heart rate 71 /min Jayne Woods PA-C Work Phone: [facility] 03-06-2023 08:23-0400 Systolic blood pressure 108 mm[Hg] Jayne Woods PA-C Work Phone: [facility] 02-09-2023 09:14-0400 Body temperature 97.3 [degF] Kael Nunez APRN.CNP Work Phone: [facility] 02-09-2023 09:14-0400 Body weight 87.09 kg Kael Nunez FACILITY EXAMINER.QUALITY ENGINEER MEDICAL DEVICE Work Phone: [facility] 02-09-2023 09:14-0400 Diastolic blood pressure 67 mm[Hg] Kael Nunez FACILITY EXAMINER.QUALITY ENGINEER MEDICAL DEVICE Work Phone: [facility] 02-09-2023 09:14-0400 Heart rate 73 /min Kael Nunez FACILITY EXAMINER.QUALITY ENGINEER MEDICAL DEVICE Work Phone: [facility] 02-09-2023 09:14-0400 Respiratory rate 20 /min Kael Nunez FACILITY EXAMINER.QUALITY ENGINEER MEDICAL DEVICE Work Phone: [facility] 02-09-2023 09:14-0400 SaO2% (BldA) [Mass fraction] 97 % Kael Nunez FACILITY EXAMINER.QUALITY ENGINEER MEDICAL DEVICE Work Phone: [facility] 02-09-2023 09:14-0400 Systolic blood pressure 96 mm[Hg] Kael Nunez FACILITY EXAMINER.QUALITY ENGINEER MEDICAL DEVICE Work Phone: [facility] 01-25-2023 11:57-0400 Body temperature 97.9 [degF] Timairon López FACILITY EXAMINER.QUALITY ENGINEER MEDICAL DEVICE Work Phone: [facility] 01-25-2023 11:57-0400 Body weight 87.54 kg Tima Karson FACILITY EXAMINER.QUALITY ENGINEER MEDICAL DEVICE Work Phone: [facility] 01-25-2023 11:57-0400 Diastolic blood pressure 82 mm[Hg] Tima López FACILITY EXAMINER.QUALITY ENGINEER MEDICAL DEVICE Work Phone: [facility] 01-25-2023 11:57-0400 Heart rate 81 /min Tima López FACILITY EXAMINER.QUALITY ENGINEER MEDICAL DEVICE Work Phone: [facility] 01-25-2023 11:57-0400 Respiratory rate 22 /min Tima López FACILITY EXAMINER.QUALITY ENGINEER MEDICAL DEVICE Work Phone: [facility] 01-25-2023 11:57-0400 SaO2% (BldA) [Mass fraction] 96 % Tima López FACILITY EXAMINER.QUALITY ENGINEER MEDICAL DEVICE Work Phone: [facility] 01-25-2023 11:57-0400 Systolic blood pressure 116 mm[Hg] Tima Karson FACILITY EXAMINER.QUALITY ENGINEER MEDICAL DEVICE Work Phone: [facility] 01-07-2023 12:03-0400 Body temperature 97.81 [degF] Jaspreet Praisler-Wood FACILITY EXAMINER.QUALITY ENGINEER MEDICAL DEVICE Work Phone: [facility] 01-07-2023 12:03-0400 Body weight 88.63 kg Jaspreet Praisler-Wood FACILITY EXAMINER.QUALITY ENGINEER MEDICAL DEVICE Work Phone: [facility] 01-07-2023 12:03-0400 Diastolic blood pressure 66 mm[Hg] Jaspreet Praisler-Wood FACILITY EXAMINER.QUALITY ENGINEER MEDICAL DEVICE Work Phone: [facility] 01-07-2023 12:03-0400 Heart rate 85 /min Jaspreet Praisler-Wood FACILITY EXAMINER.QUALITY ENGINEER MEDICAL DEVICE Work Phone: [facility] 01-07-2023 12:03-0400 Respiratory rate 18 /min Jaspreet Praisler-Wood FACILITY EXAMINER.QUALITY ENGINEER MEDICAL DEVICE Work Phone: [facility] 01-07-2023 12:03-0400 SaO2% (BldA) [Mass fraction] 96 % Jaspreet Praisler-Wood FACILITY EXAMINER.QUALITY ENGINEER MEDICAL DEVICE Work Phone: [facility] 01-07-2023 12:03-0400 Systolic blood pressure 128 mm[Hg] Jaspreet Praisler-Wood FACILITY EXAMINER.QUALITY ENGINEER MEDICAL DEVICE Work Phone: [facility] 01-02-2023 10:45-0400 Body height 162.6 cm Dennis Marcial MD Work Phone: [facility] 01-02-2023 10:45-0400 Body temperature 97 [degF] Dennis Marcial MD Work Phone: [facility] 01-02-2023 10:45-0400 Body weight 86.73 kg Dennis Marcial MD Work Phone: [facility] 01-02-2023 10:45-0400 Diastolic blood pressure 72 mm[Hg] Dennis Marcial MD Work Phone: [facility] 01-02-2023 10:45-0400 Heart rate 74 /min Dennis Marcial MD Work Phone: [facility] 01-02-2023 10:45-0400 Respiratory rate 18 /min Dennis Marcial MD Work Phone: [facility] 01-02-2023 10:45-0400 SaO2% (BldA) [Mass fraction] 97 % Dennis Marcial MD Work Phone: [facility] 01-02-2023 10:45-0400 Systolic blood pressure 138 mm[Hg] Dennis Marcial MD Work Phone: [facility] 12-27-2022 13:33-0400 Body temperature 98.2 [degF] Tima López APRN.QUALITY ENGINEER MEDICAL DEVICE Work Phone: [facility] 12-27-2022 13:33-0400 Body weight 87.09 kg Tima López APRN.QUALITY ENGINEER MEDICAL DEVICE Work Phone: [facility] 12-27-2022 13:33-0400 Diastolic blood pressure 70 mm[Hg] Tima López APRN.QUALITY ENGINEER MEDICAL DEVICE Work Phone: [facility] 12-27-2022 13:33-0400 Heart rate 72 /min Tima López APRN.QUALITY ENGINEER MEDICAL DEVICE Work Phone: [facility] 12-27-2022 13:33-0400 Respiratory rate 20 /min Tima López APRN.QUALITY ENGINEER MEDICAL DEVICE Work Phone: [facility] 12-27-2022 13:33-0400 SaO2% (BldA) [Mass fraction] 99 % Tima López APRN.QUALITY ENGINEER MEDICAL DEVICE Work Phone: [facility] 12-27-2022 13:33-0400 Systolic blood pressure 110 mm[Hg] Tima López APRN.QUALITY ENGINEER MEDICAL DEVICE Work Phone: [facility] 12-09-2022 14:38-0400 Body weight 88 kg Oscar Mireles MD Work Phone: [facility] 12-07-2022 13:50-0400 Body weight 88 kg Pulm Wstr Work Phone: [facility] 12-07-2022 12:59-0400 Body height 163 cm Shane Steward MD Work Phone: [facility] 12-07-2022 12:59-0400 Body temperature 98.01 [degF] Shane Steward MD Work Phone: [facility] 12-07-2022 12:59-0400 Body weight 87.77 kg Shane Steward MD Work Phone: [facility] 12-07-2022 12:59-0400 Diastolic blood pressure 80 mm[Hg] Shane Steward MD Work Phone: [facility] 12-07-2022 12:59-0400 Heart rate 77 /min Shane Steward MD Work Phone: [facility] 12-07-2022 12:59-0400 SaO2% (BldA) [Mass fraction] 96 % Shane Steward MD Work Phone: [facility] 12-07-2022 12:59-0400 Systolic blood pressure 119 mm[Hg] Shane Steward MD Work Phone: [facility] 11-11-2022 10:23-0400 Body height 167.[address] Dennis Marcial Work Phone: [facility] 11-11-2022 10:23-0400 Body mass index (BMI) [Ratio] 30.8 kg/m2 Dr. Dennis Marcial Work Phone: [facility] 11-11-2022 10:23-0400 Body weight 86.[address] Dennis Marcial Work Phone: [facility] 11-11-2022 10:23-0400 Diastolic blood pressure 75 mm[Hg] Dr. Dennis Marcial Work Phone: [facility] 11-11-2022 10:23-0400 Heart rate 80 /min Dr. Dennis Marcial Work Phone: [facility] 11-11-2022 10:23-0400 Respiratory rate 16 /min Dr. Dennis Marcial Work Phone: [facility] 11-11-2022 10:23-0400 SaO2% (BldA) [Mass fraction] 94 % Dr. Dennis Marcial Work Phone: [facility] 11-11-2022 10:23-0400 Systolic blood pressure 111 mm[Hg] Dr. Dennis Marcial Work Phone: [facility] 09-12-2022 14:00-0400 Body weight 89.36 kg Oscar Mireles MD Work Phone: [facility] 08-29-2022 08:11-0400 Body height 167.6 cm Dennis Marcial MD Work Phone: [facility] 08-29-2022 08:11-0400 Body temperature 97.7 [degF] Dennis Marcial MD Work Phone: [facility] 08-29-2022 08:11-0400 Body weight 88 kg Dennis Marcial MD Work Phone: [facility] 08-29-2022 08:11-0400 Diastolic blood pressure 78 mm[Hg] Dennis Marcial MD Work Phone: [facility] 08-29-2022 08:11-0400 Heart rate 76 /min Dennis Marcial MD Work Phone: [facility] 08-29-2022 08:11-0400 Respiratory rate 18 /min Dennis Marcial MD Work Phone: [facility] 08-29-2022 08:11-0400 SaO2% (BldA) [Mass fraction] 99 % Dennis Marcial MD Work Phone: [facility] 08-29-2022 08:11-0400 Systolic blood pressure 108 mm[Hg] Dennis Marcial MD Work Phone: [facility] 02-02-2022 09:50-0400 Body height 167.6 cm Dennis Marcial MD Work Phone: [facility] 02-02-2022 09:50-0400 Body temperature 96.8 [degF] Dennis Marcial MD Work Phone: [facility] 02-02-2022 09:50-0400 Body weight 89.81 kg Dennis Marcial MD Work Phone: [facility] 02-02-2022 09:50-0400 Diastolic blood pressure 62 mm[Hg] Dennis Marcial MD Work Phone: [facility] 02-02-2022 09:50-0400 Respiratory rate 16 /min Dennis Marcial MD Work Phone: [facility] 02-02-2022 09:50-0400 SaO2% (BldA) [Mass fraction] 95 % Dennis Marcial MD Work Phone: [facility] 02-02-2022 09:50-0400 Systolic blood pressure 106 mm[Hg] Dennis Marcial MD Work Phone: [facility] 01-04-2022 10:42-0400 Body temperature 97.3 [degF] Carolina Lambert MD Work Phone: [facility] 01-04-2022 10:42-0400 Body weight 89.13 kg Carolina Lambert MD Work Phone: [facility] 01-04-2022 10:42-0400 Diastolic blood pressure 68 mm[Hg] Carolina Lambert MD Work Phone: [facility] 01-04-2022 10:42-0400 Heart rate 80 /min Carolina Lambert MD Work Phone: [facility] 01-04-2022 10:42-0400 SaO2% (BldA) [Mass fraction] 99 % Carolina Lambert MD Work Phone: [facility] 01-04-2022 10:42-0400 Systolic blood pressure 108 mm[Hg] Carolina Lambert MD Work Phone: [facility] 11-26-2021 08:00-0400 Body temperature 98.71 [degF] Johnathan Guillermo MD Work Phone: [facility] 11-26-2021 08:00-0400 Body weight 89.99 kg Johnathan Guillermo MD Work Phone: [facility] 11-26-2021 08:00-0400 Heart rate 89 /min Johnathan Guillermo MD Work Phone: [facility] 11-26-2021 08:00-0400 SaO2% (BldA) [Mass fraction] 98 % Johnathan Guillermo MD Work Phone: [facility] 11-17-2021 11:15-0400 Diastolic blood pressure 56 mm[Hg] Johnathan Guillermo MD Work Phone: [facility] 11-17-2021 11:15-0400 Heart rate 58 /min Johnathan Guillermo MD Work Phone: [facility] 11-17-2021 11:15-0400 Respiratory rate 13 /min Johnathan Guillermo MD Work Phone: [facility] 11-17-2021 11:15-0400 SaO2% (BldA) [Mass fraction] 100 % Johnathan Guillermo MD Work Phone: [facility] 11-17-2021 11:15-0400 Systolic blood pressure 95 mm[Hg] Johnathan Guillermo MD Work Phone: [facility] 11-17-2021 11:05-0400 Body temperature 97 [degF] Johnathan Guillermo MD Work Phone: [facility] 11-17-2021 10:19-0400 Body height 165.1 cm Johnathan Guillermo MD Work Phone: [facility] 11-17-2021 10:19-0400 Body weight 89.81 kg Johnathan Guillermo MD Work Phone: [facility] 11-15-2021 09:59-0400 Body temperature 97.3 [degF] Treatment Wstr Work Phone: [facility] 11-15-2021 09:59-0400 Diastolic blood pressure 77 mm[Hg] Treatment Wstr Work Phone: [facility] 11-15-2021 09:59-0400 Heart rate 60 /min Treatment Wstr Work Phone: [facility] 11-15-2021 09:59-0400 Systolic blood pressure 118 mm[Hg] Treatment Wstr Work Phone: [facility] 11-12-2021 09:18-0400 Body temperature 98.29 [degF] Treatment Wstr Work Phone: [facility] 11-12-2021 09:18-0400 Diastolic blood pressure 73 mm[Hg] Treatment Wstr Work Phone: [facility] 11-12-2021 09:18-0400 Heart rate 74 /min Treatment Wstr Work Phone: [facility] 11-12-2021 09:18-0400 Systolic blood pressure 119 mm[Hg] Treatment Wstr Work Phone: [facility] 11-10-2021 09:25-0400 Body temperature 97.59 [degF] Treatment Wstr Work Phone: [facility] 11-10-2021 09:25-0400 Diastolic blood pressure 70 mm[Hg] Treatment Wstr Work Phone: [facility] 11-10-2021 09:25-0400 Heart rate 85 /min Treatment Wstr Work Phone: [facility] 11-10-2021 09:25-0400 Systolic blood pressure 115 mm[Hg] Treatment Wstr Work Phone: [facility] 11-02-2021 15:35-0400 Body temperature 97.7 [degF] Treatment Wstr Work Phone: [facility] 11-02-2021 15:35-0400 Diastolic blood pressure 49 mm[Hg] Treatment Wstr Work Phone: [facility] 11-02-2021 15:35-0400 Heart rate 79 /min Treatment Wstr Work Phone: [facility] 11-02-2021 15:35-0400 Systolic blood pressure 121 mm[Hg] Treatment Wstr Work Phone: [facility] 11-02-2021 09:07-0400 Body height 165.1 cm Kamilla Tecopa PA-C Work Phone: [facility] 11-02-2021 09:07-0400 Body temperature 98.2 [degF] Kamilla Kirk PA-C Work Phone: [facility] 11-02-2021 09:07-0400 Body weight 90.17 kg Kamilla Tecopa PA-C Work Phone: [facility] [facility] 11-02-2021 09:07-0400 Diastolic blood pressure 72 mm[Hg] Kamilla Kirk PA-C Work Phone: [facility] 11-02-2021 09:07-0400 Heart rate 89 /min Kamilla Kirk PA-C Work Phone: [facility] 11-02-2021 09:07-0400 SaO2% (BldA) [Mass fraction] 95 % Kamilla Tecopa PA-C Work Phone: [facility] 11-02-2021 09:07-0400 Systolic blood pressure 110 mm[Hg] Kamilla Tecopa PA-C Work Phone: [facility] 10-14-2021 13:39-0400 Body temperature 97.81 [degF] Treatment Wstr Work Phone: [facility] 10-14-2021 13:39-0400 Body weight 90.72 kg Treatment Wstr Work Phone: [facility] 10-14-2021 13:39-0400 Diastolic blood pressure 79 mm[Hg] Treatment Wstr Work Phone: [facility] 10-14-2021 13:39-0400 Heart rate 55 /min Treatment Wstr Work Phone: [facility] 10-14-2021 13:39-0400 SaO2% (BldA) [Mass fraction] 98 % Treatment Wstr Work Phone: [facility] 10-14-2021 13:39-0400 Systolic blood pressure 100 mm[Hg] Treatment Wstr Work Phone: [facility] 10-12-2021 10:10-0400 Body height 165.1 cm Jhonathan Reyna MD Work Phone: [facility] 10-12-2021 10:10-0400 Body weight 90.72 kg Jhonathan Reyna MD Work Phone: [facility] 10-12-2021 10:10-0400 Diastolic blood pressure 70 mm[Hg] Jhonathan Reyna MD Work Phone: [facility] 10-12-2021 10:10-0400 Heart rate 70 /min Jhonathan Reyna MD Work Phone: [facility] 10-12-2021 10:10-0400 Systolic blood pressure 100 mm[Hg] Jhonathan Reyna MD Work Phone: [facility] 10-11-2021 09:08-0400 Body temperature 97.2 [degF] Carolina Lambert MD Work Phone: [facility] 10-11-2021 09:08-0400 Body weight 90.72 kg Carolina Lambert MD Work Phone: [facility] 10-11-2021 09:08-0400 Diastolic blood pressure 66 mm[Hg] Carolina Lambert MD Work Phone: [facility] 10-11-2021 09:08-0400 Heart rate 77 /min Carolina Lambert MD Work Phone: [facility] 10-11-2021 09:08-0400 SaO2% (BldA) [Mass fraction] 95 % Carolina Lambert MD Work Phone: [facility] 10-11-2021 09:08-0400 Systolic blood pressure 106 mm[Hg] Carolina Lambert MD Work Phone: [facility] 09-10-2021 09:37-0400 Body weight 89.81 kg Oscar Mireles MD Work Phone: [facility] 09-10-2021 09:37-0400 Diastolic blood pressure 78 mm[Hg] Oscar Mireles MD Work Phone: [facility] 09-10-2021 09:37-0400 Heart rate 93 /min Oscar Mireles MD Work Phone: [facility] 09-10-2021 09:37-0400 Respiratory rate 16 /min Oscar Mireles MD Work Phone: [facility] 09-10-2021 09:37-0400 SaO2% (BldA) [Mass fraction] 96 % Oscar Mireles MD Work Phone: [facility] 09-10-2021 09:37-0400 Systolic blood pressure 114 mm[Hg] Oscar Mireles MD Work Phone: [facility] 07-09-2021 11:51-0500 Body height 167.[address] Dennis Marcial Work Phone: [facility] Work Phone: 07-09-2021 11:51-0500 Body weight 91.[address] Dennis Marcial Work Phone: [facility] Work Phone: 07-09-2021 11:51-0500 Diastolic blood pressure 75 mm[Hg] Dr. Dennis Marcial Work Phone: [facility] Work Phone: 07-09-2021 11:51-0500 Heart rate 83 /min Dr. Dennis Marcial Work Phone: [facility] Work Phone: 07-09-2021 11:51-0500 Respiratory rate 20 /min Dr. Dennis Marcial Work Phone: [facility] Work Phone: 07-09-2021 11:51-0500 SaO2% (BldA) [Mass fraction] 96 % Dr. Dennis Marcial Work Phone: [facility] Work Phone: 07-09-2021 11:51-0500 Systolic blood pressure 108 mm[Hg] Dr. Dennis Marcial Work Phone: [facility] Work Phone: 09-25-2020 14:59-0400 Body mass index (BMI) [Ratio] 29.9 kg/m2 Dr. Dennis Marcial Work Phone: [facility] Work Phone: 08-31-2015 16:19-0400 Body height [...] 08-31-2015 16:19-0400 Body weight 83.01 kg Lesley Peña [facility]; [facility] Work Phone: 08-31-2015 16:19-0400 Diastolic blood pressure 70 mm[Hg] Lesley Peña [facility]; [facility] Work Phone: Comment on above: Patient Position: Sitting; Cuff Location : Left Arm; Cuff Size: Standard 08-31-2015 16:19-0400 Heart rate 74 /min Lesley Peña [facility]; [facility] Work Phone: Comment on above: Pattern: Regular 08-31-2015 16:19-0400 Respiratory rate 15 /min Lesley Peña [facility]; [facility] Work Phone: Comment on above: Pattern: Unlabored 08-31-2015 16:19-0400 Systolic blood pressure 102 mm[Hg] Lesley Fritz [facility]; [facility] Work Phone: Comment on above: Patient Position: Sitting; Cuff Location : Left Arm; Cuff Size: Standard 04-27-2015 17:34-0500 Body height 164.47 cm Lesley Fritz [facility]; [facility] Work Phone: 04-27-2015 17:34-0500 Body mass index (BMI) [Ratio] 32.87 kg/m2 Lesley Friendcharlesamado [facility]; [facility] Work Phone: 04-27-2015 17:34-0500 Body surface area Derived from formula 1.96 m2 Lesley Friendjo ann [facility]; [facility] Work Phone: 04-27-2015 17:34-0500 Body temperature 98 [degF] Lesley Friendjo ann [facility]; [facility] Work Phone: Comment on above: Method: Temporal 04-27-2015 17:34-0500 Body weight 88.91 kg Lesley Fritz [facility]; [facility] Work Phone: 04-27-2015 17:34-0500 Diastolic blood pressure 70 mm[Hg] Lesley Fritz [facility]; [facility] Work Phone: Comment on above: Patient Position: Sitting; Cuff Location : Left Arm; Cuff Size: Standard 04-27-2015 17:34-0500 Heart rate 72 /min Lesley Friendjo ann [facility]; [facility] Work Phone: Comment on above: Pattern: Regular 04-27-2015 17:34-0500 Respiratory rate 17 /min Lesley Catrina [facility]; [facility] Work Phone: Comment on above: Pattern: Unlabored 04-27-2015 17:34-0500 SaO2% (BldA) [Mass fraction] 95 % Lesley Friendjo ann [facility]; [facility] Work Phone: Comment on above: Room air 04-27-2015 17:34-0500 Systolic blood pressure 92 mm[Hg] Lesley Freedamado [facility]; [facility] Work Phone: Comment on above: Patient Position: Sitting; Cuff Location : Left Arm; Cuff Size: Standard 12-15-2014 16:05-0400 Body height 164.47 cm Lesley Fritz [facility] Work Phone: 12-15-2014 16:05-0400 Body mass index (BMI) [Ratio] 32.2 kg/m2 Lesley Friendjo ann [facility]; [facility] Work Phone: 12-15-2014 16:05-0400 Body surface area Derived from formula 1.94 m2 Lesley Friendjo ann [facility]; [facility] Work Phone: 12-15-2014 16:05-0400 Body temperature 97.8 [degF] Lesley Friendjo ann [facility]; [facility] Work Phone: Comment on above: Method: Oral 12-15-2014 16:05-0400 Body weight 87.09 kg Lesley Friendjo ann [facility]; [facility] Work Phone: 12-15-2014 16:05-0400 Diastolic blood pressure 66 mm[Hg] Lesley Friendjo ann [facility]; [facility] Work Phone: Comment on above: Patient Position: Sitting; Cuff Location : Left Arm; Cuff Size: Large 12-15-2014 16:05-0400 Heart rate 74 /min Lesley Catrina [facility]; [facility] Work Phone: Comment on above: Pattern: Regular 12-15-2014 16:05-0400 Respiratory rate 16 /min Lesley Catrina [facility]; [facility] Work Phone: Comment on above: Pattern: Unlabored 12-15-2014 16:05-0400 Systolic blood pressure 94 mm[Hg] Lesley Friendjo ann [facility]; [facility] Work Phone: Comment on above: Patient Position: Sitting; Cuff Location : Left Arm; Cuff Size: Large 10-31-2014 11:01-0400 Body height 164.47 cm Misty Gonzales LPN [facility]; [facility] Work Phone: 10-31-2014 11:01-0400 Body mass index (BMI) [Ratio] 32.07 kg/m2 Misty Broussardrb CARDIOVASCULAR TECH [facility]; [facility] Work Phone: 10-31-2014 11:01-0400 Body surface area Derived from formula 1.94 m2 Misty Broussardrb CARDIOVASCULAR TECH [facility]; [facility] Work Phone: 10-31-2014 11:01-0400 Body temperature 97.3 [degF] Misty Slarb CARDIOVASCULAR TECH [facility]; [facility] Work Phone: 10-31-2014 11:01-0400 Body weight 86.75 kg Misty Gonzales CARDIOVASCULAR TECH [facility] Work Phone: 10-31-2014 11:01-0400 Diastolic blood pressure 70 mm[Hg] Misty Slarb CARDIOVASCULAR TECH [facility]; [facility] Work Phone: Comment on above: Patient Position: Sitting; Cuff Location : Left Arm; Cuff Size: Standard 10-31-2014 11:01-0400 Heart rate 74 /min Misty Broussardrb CARDIOVASCULAR TECH [facility]; [facility] Work Phone: Comment on above: Pattern: Regular 10-31-2014 11:01-0400 Respiratory rate 18 /min Misty Broussardrb CARDIOVASCULAR TECH [facility]; [facility] Work Phone: Comment on above: Pattern: Unlabored 10-31-2014 11:01-0400 SaO2% (BldA) [Mass fraction] 97 % Misty Slarb CARDIOVASCULAR TECH [facility]; [facility] Work Phone: Comment on above: Room air 10-31-2014 11:01-0400 Systolic blood pressure 116 mm[Hg] Misty Boborb CARDIOVASCULAR TECH [facility]; [facility] Work Phone: Comment on above: Patient Position: Sitting; Cuff Location : Left Arm; Cuff Size: Standard 08-11-2014 15:44-0400 Body height 164.47 cm Lesley Fritz [facility]; [facility] Work Phone: 08-11-2014 15:44-0400 Body mass index (BMI) [Ratio] 30.69 kg/m2 Lesley Fritz [facility]; [facility] Work Phone: 08-11-2014 15:44-0400 Body surface area Derived from formula 1.9 m2 Lesley Friendjo ann [facility]; [facility] Work Phone: 08-11-2014 15:44-0400 Body temperature 97.2 [degF] Lesley Friendjo ann [facility]; [facility] Work Phone: 08-11-2014 15:44-0400 Body weight 83.01 kg Lesley Freedamado [facility]; [facility] Work Phone: 08-11-2014 15:44-0400 Diastolic blood pressure 72 mm[Hg] Lesley Friendjo ann [facility]; [facility] Work Phone: Comment on above: Patient Position: Sitting; Cuff Location : Left Arm; Cuff Size: Large 08-11-2014 15:44-0400 Heart rate 76 /min Lesley Friendjo ann [facility]; [facility] Work Phone: Comment on above: Pattern: Regular 08-11-2014 15:44-0400 Respiratory rate 16 /min Lesley Friendjo ann [facility]; [facility] Work Phone: Comment on above: Pattern: Unlabored 08-11-2014 15:44-0400 Systolic blood pressure 102 mm[Hg] Lesley Friendjo ann [facility]; [facility] Work Phone: Comment on above: Patient Position: Sitting; Cuff Location : Left Arm; Cuff Size: Large 06-16-2014 16:05-0500 Body height 164.47 cm Dee Dee Jimenez CMA [facility]; [facility] Work Phone: 06-16-2014 16:05-0500 Body mass index (BMI) [Ratio] 29.51 kg/m2 Dee Dee Jimenez [facility] Work Phone: 06-16-2014 16:05-0500 Body surface area Derived from formula 1.87 m2 Dee Dee Jimenez [facility] Work Phone: 06-16-2014 16:05-0500 Body temperature 99.1 [degF] Dee Dee Jimenez [facility] Work Phone: Comment on above: Method: Oral 06-16-2014 16:05-0500 Body weight 79.83 kg Dee Dee Jimenez [facility] Work Phone: 06-16-2014 16:05-0500 Diastolic blood pressure 68 mm[Hg] Dee Dee Jimenez [facility] Work Phone: Comment on above: Patient Position: Sitting; Cuff Location : Left Arm; Cuff Size: Standard 06-16-2014 16:05-0500 Heart rate 85 /min Dee Deewale Jimenez [facility] Work Phone: Comment on above: Pattern: Regular 06-16-2014 16:05-0500 Respiratory rate 16 /min Dee Dee Jimenez [facility] Work Phone: Comment on above: Pattern: Unlabored 06-16-2014 16:05-0500 Systolic blood pressure 102 mm[Hg] [facility] Work Phone: Comment on above: Patient Position: Sitting; Cuff Location : Left Arm; Cuff Size: Standard 05-23-2014 09:31-0500 Body height 164.47 cm Lesley Fritz [facility]; [facility] Work Phone: 05-23-2014 09:31-0500 Body mass index (BMI) [Ratio] 29.85 kg/m2 Lesley Fritz [facility]; [facility] Work Phone: 05-23-2014 09:31-0500 Body surface area Derived from formula 1.88 m2 Lesley Peña [facility]; [facility] Work Phone: 05-23-2014 09:31-0500 Body temperature 97.6 [degF] Lesley Catrina Peña [facility]; [facility] Work Phone: 05-23-2014 09:31-0500 Body weight 80.74 kg Lesley Catrina [facility]; [facility] Work Phone: 05-23-2014 09:31-0500 Diastolic blood pressure 70 mm[Hg] Lesley Catrina [facility]; [facility] Work Phone: Comment on above: Patient Position: Sitting; Cuff Location : Left Arm; Cuff Size: Large 05-23-2014 09:31-0500 Heart rate 125 /min Lesley Catrina [facility]; [facility] Work Phone: Comment on above: Pattern: Regular 05-23-2014 09:31-0500 Respiratory rate 18 /min Lesley Fritz [facility]; [facility] Work Phone: Comment on above: Pattern: Unlabored 05-23-2014 09:31-0500 Systolic blood pressure 108 mm[Hg] Lesley Catrina [facility]; [facility] Work Phone: Comment on above: Patient Position: Sitting; Cuff Location : Left Arm; Cuff Size: Large 02-03-2014 08:58-0400 Body height 164.47 cm Lesley Peña [facility]; [facility] Work Phone: 02-03-2014 08:58-0400 Body mass index (BMI) [Ratio] 29.85 kg/m2 Lesley Fritz [facility]; [facility] Work Phone: 02-03-2014 08:58-0400 Body surface area Derived from formula 1.88 m2 Lesley Peña [facility]; [facility] Work Phone: 02-03-2014 08:58-0400 Body temperature 98.1 [degF] Lesley Fritz [facility]; [facility] Work Phone: 02-03-2014 08:58-0400 Body weight 80.74 kg Lesley Friendjo ann [facility]; [facility] Work Phone: 02-03-2014 08:58-0400 Diastolic blood pressure 70 mm[Hg] Lesley Friendjo ann [facility]; [facility] Work Phone: Comment on above: Patient Position: Sitting; Cuff Location : Right Arm; Cuff Size: Large 02-03-2014 08:58-0400 Heart rate 78 /min Lesley Catrina [facility]; [facility] Work Phone: Comment on above: Pattern: Regular 02-03-2014 08:58-0400 Respiratory rate 16 /min Lesley Catrina [facility] Work Phone: Comment on above: Pattern: Unlabored 02-03-2014 08:58-0400 Systolic blood pressure 92 mm[Hg] Lesley Friendjo ann [facility]; [...] Diastolic blood pressure 68 mm[Hg] Karen Grimm LPN [facility]; [facility] Work Phone: Comment on above: Patient Position: Sitting; Cuff Location : Left Arm; Cuff Size: Standard 12-31-2013 11:58-0400 Heart rate 94 /min Karen Grimm CARDIOVASCULAR TECH [facility]; [facility] Work Phone: Comment on above: Pattern: Regular 12-31-2013 11:58-0400 Respiratory rate 16 /min Karen Grimm LPN [facility]; [facility] Work Phone: 12-31-2013 11:58-0400 SaO2% (BldA) [Mass fraction] 98 % Karen Grimm LPN [facility]; [facility] Work Phone: Comment on above: Room air 12-31-2013 11:58-0400 Systolic blood pressure 102 mm[Hg] Karen Grimm CARDIOVASCULAR TECH [facility]; [facility] Work Phone: Comment on above: Patient Position: Sitting; Cuff Location : Left Arm; Cuff Size: Standard 12-04-2013 15:16-0400 Body height 164.47 cm Lesley Peña [facility]; [facility] Work Phone: 12-04-2013 15:16-0400 Body mass index (BMI) [Ratio] 31.86 kg/m2 Lesley Fritz [facility]; [facility] Work Phone: 12-04-2013 15:16-0400 Body surface area Derived from formula 1.93 m2 Lesley Peña [facility]; [facility] Work Phone: 12-04-2013 15:16-0400 Body temperature 97.5 [degF] Lesley Fritz [facility]; [facility] Work Phone: 12-04-2013 15:16-0400 Body weight 86.18 kg Lesley Peña [facility]; [facility] Work Phone: 12-04-2013 15:16-0400 Diastolic blood pressure 72 mm[Hg] Lesley Catrina [facility]; [facility] Work Phone: Comment on above: Patient Position: Sitting; Cuff Location : Left Arm; Cuff Size: Large 12-04-2013 15:16-0400 Heart rate 68 /min Lesley Catrina [facility]; [facility] Work Phone: Comment on above: Pattern: Regular 12-04-2013 15:16-0400 Respiratory rate 16 /min Lesley Catrina [facility]; [facility] Work Phone: Comment on above: Pattern: Unlabored 12-04-2013 15:16-0400 Systolic blood pressure 106 mm[Hg] Lesley Catrina [facility]; [facility] Work Phone: Comment on above: Patient Position: Sitting; Cuff Location : Left Arm; Cuff Size: Large 07-17-2013 15:44-0400 Body height 164.47 cm Lesley Fritz [facility]; [facility] Work Phone: 07-17-2013 15:44-0400 Body mass index (BMI) [Ratio] 32.37 kg/m2 Lesley Fritz [facility]; [facility] Work Phone: 07-17-2013 15:44-0400 Body surface area Derived from formula 1.94 m2 Lesley Fritz [facility]; [facility] Work Phone: 07-17-2013 15:44-0400 Body temperature 98.2 [degF] Lesley Fritz [facility]; [facility] Work Phone: 07-17-2013 15:44-0400 Body weight 87.54 kg Lesley Fritz [facility]; [facility] Work Phone: 07-17-2013 15:44-0400 Diastolic blood pressure 70 mm[Hg] Lesley Fritz [facility]; [facility] Work Phone: Comment on above: Patient Position: Sitting; Cuff Location : Left Arm; Cuff Size: Large 07-17-2013 15:44-0400 Heart rate 68 /min Lesley Friendjo ann [facility]; [facility] Work Phone: Comment on above: Pattern: Regular 07-17-2013 15:44-0400 Respiratory rate 16 /min Lesley Friendjo ann [facility]; [facility] Work Phone: Comment on above: Pattern: Unlabored 07-17-2013 15:44-0400 Systolic blood pressure 106 mm[Hg] Lesley Catrina [facility]; [facility] Work Phone: Comment on above: Patient Position: Sitting; Cuff Location : Left Arm; Cuff Size: Large 03-20-2013 15:29-0500 Body height 164.47 cm Lesley Catrina [facility]; [facility] Work Phone: 03-20-2013 15:29-0500 Body mass index (BMI) [Ratio] 31.86 kg/m2 Lesley Catrina [facility]; [facility] Work Phone: 03-20-2013 15:29-0500 Body surface area Derived from formula 1.93 m2 Lesley Catrina [facility]; [facility] Work Phone: 03-20-2013 15:29-0500 Body temperature 98.4 [degF] Lesley Friendjo ann [facility]; [facility] Work Phone: 03-20-2013 15:29-0500 Body weight 86.18 kg Lesley Catrina [facility]; [facility] Work Phone: 03-20-2013 15:29-0500 Diastolic blood pressure 70 mm[Hg] Lesley Catrina [facility]; [facility] Work Phone: Comment on above: Patient Position: Sitting; Cuff Location : Left Arm; Cuff Size: Large 03-20-2013 15:29-0500 Heart rate 96 /min Lesley Catrina [facility]; [facility] Work Phone: Comment on above: Pattern: Regular 03-20-2013 15:29-0500 Respiratory rate 18 /min Lesley Flinner [facility]; [facility] Work Phone: Comment on above: Pattern: Unlabored 03-20-2013 15:29-0500 Systolic blood pressure 100 mm[Hg] Lesley Catrina [facility]; [facility] Work Phone: Comment on above: Patient Position: Sitting; Cuff Location : Left Arm; Cuff Size: Large 02-27-2013 14:49-0400 Body height 164.47 cm Karen Alfa CHEUNG [facility] Work Phone: 02-27-2013 14:49-0400 Body mass index (BMI) [Ratio] 30.69 kg/m2 Karen Alfa CHEUNG [facility] Work Phone: 02-27-2013 14:49-0400 Body surface area Derived from formula 1.9 m2 Karen Alfa CHEUNG [facility] Work Phone: 02-27-2013 14:49-0400 Body temperature 98.7 [degF] Karen Grimm SKYE [facility]; [facility] Work Phone: Comment on above: Method: Oral 02-27-2013 14:49-0400 Body weight 83.01 kg Karen Grimm [facility] Work Phone: 02-27-2013 14:49-0400 Diastolic blood pressure 74 mm[Hg] Karen Alfa CHEUNG [facility]; [facility] Work Phone: Comment on above: Patient Position: Sitting; Cuff Location : Left Arm; Cuff Size: Standard 02-27-2013 14:49-0400 Heart rate 76 /min Karen Alfa CHEUNG [facility]; [facility] Work Phone: Comment on above: Pattern: Regular 02-27-2013 14:49-0400 Respiratory rate 16 /min Karen Evansclotilde CHEUNG [facility]; [facility] Work Phone: 02-27-2013 14:49-0400 SaO2% (BldA) [Mass fraction] 98 % Karen Grimm [facility]; [facility] Work Phone: Comment on above: Room air 02-27-2013 14:49-0400 Systolic blood pressure 112 mm[Hg] Karen Grimm CARDIOVASCULAR TECH [facility]; [facility] Work Phone: Comment on above: Patient Position: Sitting; Cuff Location : Left Arm; Cuff Size: Standard 09-04-2012 15:44-0400 Body height 164.47 cm Lesley Fritz [facility]; [facility] Work Phone: 09-04-2012 15:44-0400 Body mass index (BMI) [Ratio] 30.69 kg/m2 Lesley Fritz [facility]; [facility] Work Phone: 09-04-2012 15:44-0400 Body surface area Derived from formula 1.9 m2 Lesley Fritz [facility]; [facility] Work Phone: 09-04-2012 15:44-0400 Body temperature 98.5 [degF] Lesley Fritz [facility]; [facility] Work Phone: 09-04-2012 15:44-0400 Body weight 83.01 kg Lesley Fritz [facility]; [facility] Work Phone: 09-04-2012 15:44-0400 Diastolic blood pressure 70 mm[Hg] Lesley Fritz [facility]; [facility] Work Phone: Comment on above: Patient Position: Sitting; Cuff Location : Left Arm; Cuff Size: Standard 09-04-2012 15:44-0400 Heart rate 64 /min Lesley Fritz [facility]; [facility] Work Phone: Comment on above: Pattern: Regular 09-04-2012 15:44-0400 Respiratory rate 16 /min Lesley Fritz [facility]; [facility] Work Phone: Comment on above: Pattern: Unlabored 09-04-2012 15:44-0400 Systolic blood pressure 104 mm[Hg] Lesley Fritz [facility]; [facility] Work Phone: Comment on above: Patient Position: Sitting; Cuff Location : Left Arm; Cuff Size: Standard 08-02-2011 16:01-0400 Body height 164.47 cm Lesley Catrina [facility]; [facility] Work Phone: 08-02-2011 16:01-0400 Body mass index (BMI) [Ratio] 30.18 kg/m2 Lesley Catrina [facility]; [facility] Work Phone: 08-02-2011 16:01-0400 Body surface area Derived from formula 1.89 m2 Lesley Catrina [facility]; [facility] Work Phone: 08-02-2011 16:01-0400 Body temperature 97.7 [degF] Lesley Catrina [facility]; [facility] Work Phone: 08-02-2011 16:01-0400 Body weight 81.65 kg Lesley Catrina [facility]; [facility] Work Phone: 08-02-2011 16:01-0400 Diastolic blood pressure 70 mm[Hg] Lesley Catrina [facility]; [facility] Work Phone: Comment on above: Patient Position: Sitting; Cuff Location : Left Arm; Cuff Size: Large 08-02-2011 16:01-0400 Heart rate 76 /min Lesley Fritz [facility]; [facility] Work Phone: Comment on above: Pattern: Regular 08-02-2011 16:01-0400 Respiratory rate 16 /min Lesley Catrina [facility]; [facility] Work Phone: Comment on above: Pattern: Unlabored 08-02-2011 16:01-0400 Systolic blood pressure 110 mm[Hg] Lesley Catrina [facility]; [facility] Work Phone: Comment on above: Patient Position: Sitting; Cuff Location : Left Arm; Cuff Size: Large 01-31-2011 15:24-0400 Body height 164.47 cm Lesley Fritz [facility]; [facility] Work Phone: 01-31-2011 15:24-0400 Body mass index (BMI) [Ratio] 30.18 kg/m2 Lesley Catrina [facility]; [facility] Work Phone: 01-31-2011 15:24-0400 Body surface area Derived from formula 1.89 m2 Lesley Fritz [facility]; [facility] Work Phone: 01-31-2011 15:24-0400 Body temperature 98.1 [degF] Lesely Catrina [facility]; [facility] Work Phone: 01-31-2011 15:24-0400 Body weight 81.65 kg Lesley Catrina [facility]; [facility] Work Phone: 01-31-2011 15:24-0400 Diastolic blood pressure 82 mm[Hg] Lesley Fritz [facility]; [facility] Work Phone: Comment on above: Patient Position: Sitting; Cuff Location : Left Arm; Cuff Size: Large 01-31-2011 15:24-0400 Heart rate 68 /min Lesley Fritz [facility]; [facility] Work Phone: Comment on above: Pattern: Regular 01-31-2011 15:24-0400 Respiratory rate 16 /min Lesley Fritz [facility]; [facility] Work Phone: Comment on above: Pattern: Unlabored 01-31-2011 15:24-0400 Systolic blood pressure 114 mm[Hg] Lesley Fritz [facility]; [facility] [...] 07:40-0400 Diastolic blood pressure 62 mm[Hg] Maranda Roberts RN [facility]; [facility] Work Phone: Comment on above: Patient Position: Sitting; Cuff Location : Left Arm; Cuff Size: Large 11-19-2010 07:40-0400 Heart rate 72 /min Maranda Roberts RN [facility]; [facility] Work Phone: Comment on above: Pattern: Regular 11-19-2010 07:40-0400 Systolic blood pressure 112 mm[Hg] Maranda Roberts RN [facility]; [facility] Work Phone: Comment on above: Patient Position: Sitting; Cuff Location : Left Arm; Cuff Size: Large 11-19-2010 07:34-0400 Diastolic blood pressure 60 mm[Hg] Maranda Roberts [...] 08-10-2010 15:50-0400 Body height 165.1 cm Lesley Fritz [facility]; [facility] Work Phone: 08-10-2010 15:50-0400 Body mass index (BMI) [Ratio] 30.29 kg/m2 Lesley Fritz [facility]; [facility] Work Phone: 08-10-2010 15:50-0400 Body surface area Derived from formula 1.9 m2 Lesley Fritz [facility]; [facility] Work Phone: 08-10-2010 15:50-0400 Body temperature 97.7 [degF] Lesley Fritz [facility]; [facility] Work Phone: 08-10-2010 15:50-0400 Body weight 82.56 kg Lesley Fritz [facility]; [facility] Work Phone: 08-10-2010 15:50-0400 Diastolic blood pressure 70 mm[Hg] Lesley Catrina [facility]; [facility] Work Phone: Comment on above: Patient Position: Sitting; Cuff Location : Left Arm; Cuff Size: Standard 08-10-2010 15:50-0400 Heart rate 76 /min Lesley Catrina [facility]; [facility] Work Phone: Comment on above: Pattern: Regular 08-10-2010 15:50-0400 Respiratory rate 16 /min Lesley Catrina [facility]; [facility] Work Phone: Comment on above: Pattern: Unlabored 08-10-2010 15:50-0400 Systolic blood pressure 94 mm[Hg] Lesley Catrina [facility]; [facility] Work Phone: Comment on above: Patient Position: Sitting; Cuff Location : Left Arm; Cuff Size: Standard 06-07-2010 15:31-0500 Body temperature 98.2 [degF] Lesley Catrina [facility]; [facility] Work Phone: 06-07-2010 15:31-0500 Body weight 86.18 kg Lesley Catrina [facility]; [facility] [...] 06-07-2010 15:31-0500 Respiratory rate 16 /min Lesley Fritz [facility]; [facility] Work Phone: Comment on above: Pattern: Unlabored 06-07-2010 15:31-0500 Systolic blood pressure 110 mm[Hg] Lesley Catrina [facility]; [facility] Work Phone: Comment on above: Patient Position: Sitting; Cuff Location : Left Arm; Cuff Size: Large 03-17-2010 16:02-0500 Body height 164.47 cm Lesley Peña [facility]; [facility] Work Phone: 03-17-2010 16:02-0500 Body mass index (BMI) [Ratio] 31.19 kg/m2 Lesley Fritz [facility]; [facility] Work Phone: 03-17-2010 16:02-0500 Body surface area Derived from formula 1.91 m2 Lesley Fritz [facility]; [facility] Work Phone: 03-17-2010 16:02-0500 Body temperature 98.2 [degF] Lesley Catrina [facility]; [facility] Work Phone: 03-17-2010 16:02-0500 Body weight 84.37 kg Lesley Catrina [facility]; [facility] Work Phone: 03-17-2010 16:02-0500 Diastolic blood pressure 62 mm[Hg] Lesley Fritz [facility]; [facility] Work Phone: Comment on above: Patient Position: Sitting; Cuff Location : Left Arm; Cuff Size: Standard 03-17-2010 16:02-0500 Heart rate 72 /min Lesley Fritz [facility]; [facility] Work Phone: Comment on above: Pattern: Regular 03-17-2010 16:02-0500 Respiratory rate 18 /min Lesley Fritz [facility]; [facility] Work Phone: Comment on above: Pattern: Unlabored 03-17-2010 16:02-0500 Systolic blood pressure 96 mm[Hg] Lesley Fritz [facility]; [facility] Work Phone: Comment on above: Patient Position: Sitting; Cuff Location : Left Arm; Cuff Size: Standard 03-17-2009 14:50-0500 Body height 0 cm Lesley Catrina [facility]; [facility] Work Phone: 03-17-2009 14:50-0500 Body temperature 98.6 [degF] Lesley Catrina [facility]; [facility] Work Phone: Comment on above: Method: Undefined 03-17-2009 14:50-0500 Body weight 0 kg Lesley Catrina [facility]; [facility] Work Phone: 03-17-2009 14:50-0500 Diastolic blood pressure 66 mm[Hg] Lesley Catrina [facility]; [facility] Work Phone: Comment on above: Patient Position: Sitting; Cuff Location : Left Arm; Cuff Size: Large 03-17-2009 14:50-0500 Head Occipital-frontal circumference 0 cm Lesley Fritz [facility]; [facility] Work Phone: 03-17-2009 14:50-0500 Heart rate 76 /min Lesley Fritz [facility]; [facility] Work Phone: Comment on above: Pattern: Regular 03-17-2009 14:50-0500 Respiratory rate 16 /min Lesley Fritz [facility]; [facility] Work Phone: Comment on above: Pattern: Undefined 03-17-2009 14:50-0500 Systolic blood pressure 100 mm[Hg] Lesley Catrina [facility]; [facility] Work Phone: Comment on above: Patient Position: Sitting; Cuff Location : Left Arm; Cuff Size: Large 02-16-2009 13:54-0400 Body height 0 cm Lesley Fritz [facility]; [facility] Work Phone: 02-16-2009 13:54-0400 Body temperature 98.1 [degF] Lesley Fritz [facility]; [facility] Work Phone: Comment on above: Method: Undefined 02-16-2009 13:54-0400 Body weight 0 kg Lesley Fritz [facility]; [facility] Work Phone: 02-16-2009 13:54-0400 Diastolic blood pressure 72 mm[Hg] Lesley Fritz [facility]; [facility] Work Phone: Comment on above: Patient Position: Sitting; Cuff Location : Left Arm; Cuff Size: Standard 02-16-2009 13:54-0400 Head Occipital-frontal circumference 0 cm Lesley Friendjo ann [facility]; [facility] Work Phone: 02-16-2009 13:54-0400 Heart rate 76 /min Lesley Fritz [facility]; [facility] Work Phone: Comment on above: Pattern: Regular 02-16-2009 13:54-0400 Respiratory rate 18 /min Lesley Friendjo ann [facility]; [facility] Work Phone: Comment on above: Pattern: Undefined 02-16-2009 13:54-0400 Systolic blood pressure 104 mm[Hg] Lesley Fritz [facility]; [facility] Work Phone: Comment on above: Patient Position: Sitting; Cuff Location : Left Arm; Cuff Size: Standard 01-19-2009 15:48-0400 Body height 165.1 cm Radhikakelly Dooley [facility]; [facility] Work Phone: 01-19-2009 15:48-0400 Body mass index (BMI) [Ratio] 31.62 kg/m2 Radhika Miah [facility]; [facility] Work Phone: 01-19-2009 15:48-0400 Body surface area Derived from formula 1.94 m2 Radhika Dooley [facility]; [facility] Work Phone: 01-19-2009 15:48-0400 Body temperature 98 [degF] Radhikakelly Dooley [facility]; [facility] Work Phone: Comment on above: Method: Oral 01-19-2009 15:48-0400 Body weight 86.18 kg Radhika Dooley [facility]; [facility] Work Phone: 01-19-2009 15:48-0400 Diastolic blood pressure 70 mm[Hg] Radhika Dooley [facility]; [facility] Work Phone: Comment on above: Patient Position: Supine; Cuff Location: Left Arm; Cuff Size: Large 01-19-2009 15:48-0400 Head Occipital-frontal circumference 0 cm Radhika Dooley [facility]; [facility] Work Phone: 01-19-2009 15:48-0400 Heart rate 71 /min Radhika Dooley [facility]; [facility] Work Phone: Comment on above: Pattern: Regular 01-19-2009 15:48-0400 Respiratory rate 16 /min Radhika Dooley [facility]; [facility] Work Phone: Comment on above: Pattern: Unlabored 01-19-2009 15:48-0400 SaO2% (BldA) [Mass fraction] 96 % Radhika Dooley [facility]; [facility] Work Phone: Comment on above: Room air 01-19-2009 15:48-0400 Systolic blood pressure 100 mm[Hg] Radhika Dooley [facility]; [facility] Work Phone: Comment on above: Patient Position: Supine; Cuff Location: Left Arm; Cuff Size: Large 11-19-2008 15:57-0400 Body height 165.1 cm Radhika Dooley [facility]; [facility] Work Phone: 11-19-2008 15:57-0400 Body mass index (BMI) [Ratio] 31.78 kg/m2 Radhika Dooley [facility]; [facility] Work Phone: 11-19-2008 15:57-0400 Body surface area Derived from formula 1.94 m2 Radhika Dooley [facility]; [facility] Work Phone: 11-19-2008 15:57-0400 Body weight 86.64 kg Radhika Dooley [facility]; [facility] Work Phone: 11-19-2008 15:57-0400 Diastolic blood pressure 70 mm[Hg] Radhika Dooley [facility]; [facility] Work Phone: Comment on above: Patient Position: Supine; Cuff Location: Left Arm; Cuff Size: Standard 11-19-2008 15:57-0400 Head Occipital-frontal circumference 0 cm Radhika Dooley [facility]; [facility] Work Phone: 11-19-2008 15:57-0400 Heart rate 72 /min Radhika Dooley [facility]; [facility] Work Phone: Comment on above: Pattern: Regular 11-19-2008 15:57-0400 Respiratory rate 16 /min Radhika Dooley [facility]; [facility] Work Phone: Comment on above: Pattern: Unlabored 11-19-2008 15:57-0400 Systolic blood pressure 108 mm[Hg] Radhika Dooley [facility]; [facility] Work Phone: Comment on above: Patient Position: Supine; Cuff Location: Left Arm; Cuff Size: Standard 10-14-2008 15:37-0400 Body height 165.1 cm Lesley Fritz [facility]; [facility] Work Phone: 10-14-2008 15:37-0400 Body mass index (BMI) [Ratio] 31.78 kg/m2 Lesley Fritz [facility]; [facility] Work Phone: 10-14-2008 15:37-0400 Body surface area Derived from formula 1.94 m2 Lesley Fritz [facility]; [facility] Work Phone: 10-14-2008 15:37-0400 Body temperature 98.2 [degF] Lesley Fritz [facility]; [facility] Work Phone: Comment on above: Method: Undefined 10-14-2008 15:37-0400 Body weight 86.64 kg Lesley Fritz [facility]; [facility] Work Phone: 10-14-2008 15:37-0400 Diastolic blood pressure 68 mm[Hg] Lesley Peña [facility]; [facility] Work Phone: Comment on above: Patient Position: Sitting; Cuff Location : Right Arm; Cuff Size: Standard 10-14-2008 15:37-0400 Head Occipital-frontal circumference 0 cm Lesley Friendcharlesamado [facility]; [facility] Work Phone: 10-14-2008 15:37-0400 Heart rate 68 /min Lesley Fritz [facility]; [facility] Work Phone: Comment on above: Pattern: Regular 10-14-2008 15:37-0400 Respiratory rate 18 /min Lesley Friendjo ann [facility]; [facility] Work Phone: Comment on above: Pattern: Undefined 10-14-2008 15:37-0400 Systolic blood pressure 100 mm[Hg] Lesley Friendjo ann [facility]; [facility] Work Phone: Comment on above: Patient Position: Sitting; Cuff Location : Right Arm; Cuff Size: Standard 03-04-2008 16:30-0400 Body height 0 cm Lesley Catrina [facility]; [facility] Work Phone: 03-04-2008 16:30-0400 Body temperature 97 [degF] Lesley Friendjo ann [facility]; [facility] Work Phone: Comment on above: Method: Undefined 03-04-2008 16:30-0400 Body weight 0 kg Lesley Freedamado [facility]; [facility] Work Phone: 03-04-2008 16:30-0400 Diastolic blood pressure 70 mm[Hg] Lesley Friendjo ann [facility]; [facility] Work Phone: Comment on above: Patient Position: Sitting; Cuff Location : Right Arm; Cuff Size: Standard 03-04-2008 16:30-0400 Head Occipital-frontal circumference 0 cm Lesley Friendjo ann [facility]; [facility] Work Phone: 03-04-2008 16:30-0400 Heart rate 72 /min Lesley Friendjo ann [facility]; [facility] Work Phone: Comment on above: Pattern: Regular 03-04-2008 16:30-0400 Respiratory rate 18 /min Lesely Catrina [facility]; [facility] [...] Systolic blood pressure 102 mm[Hg] ADELAIDA Carey LPN [facility]; [facility] Work Phone: Comment on above: Patient Position: Standing; Cuff Locatio n: Left Arm; Cuff Size: Standard 07-20-2007 11:54-0400 Body height 0 cm ADELAIDA Carey LPN [facility]; [facility] Work Phone: 07-20-2007 11:54-0400 Body weight 0 kg ADELAIDA Carey LPN [facility]; [facility] Work Phone: 07-20-2007 11:54-0400 Diastolic blood pressure 80 mm[Hg] ADELAIDA Carey LPN [facility]; [facility] Work Phone: Comment on above: Patient Position: Sitting; Cuff Location : Left Arm; Cuff Size: Standard 07-20-2007 11:54-0400 Head Occipital-frontal circumference 0 cm ADELAIDA Carey CARDIOVASCULAR TECH [facility]; [facility] Work Phone: 07-20-2007 11:54-0400 Heart rate 80 /min ADELAIDA Carey CARDIOVASCULAR TECH [facility]; [facility] Work Phone: Comment on above: Pattern: Regular 07-20-2007 11:54-0400 Systolic blood pressure 106 mm[Hg] ADELAIDA Carey LPN [facility]; [facility] Work Phone: Comment on above: Patient Position: Sitting; Cuff Location : Left Arm; Cuff Size: Standard 07-20-2007 11:52-0400 Body height 0 cm ADELAIDA Carey CARDIOVASCULAR TECH [facility]; [facility] Work Phone: 07-20-2007 11:52-0400 Body temperature 97.6 [degF] ADELAIDA Carey CARDIOVASCULAR TECH [facility]; [facility] Work Phone: Comment on above: Method: Oral 07-20-2007 11:52-0400 Body weight 0 kg ADELAIDA Carey CARDIOVASCULAR TECH [facility]; [facility] Work Phone: 07-20-2007 11:52-0400 Diastolic blood pressure 74 mm[Hg] ADELAIDA Carey CARDIOVASCULAR TECH [facility]; [facility] Work Phone: Comment on above: Patient Position: Supine; Cuff Location: Left Arm; Cuff Size: Standard 07-20-2007 11:52-0400 Head Occipital-frontal circumference 0 cm ADELAIDA Carey CARDIOVASCULAR TECH [facility]; [facility] Work Phone: 07-20-2007 11:52-0400 Heart rate 78 /min ADELAIDA Carey CARDIOVASCULAR TECH [facility]; [facility] Work Phone: Comment on above: Pattern: Regular 07-20-2007 11:52-0400 Respiratory rate 18 /min ADELAIDA Carey CARDIOVASCULAR TECH [facility]; [facility] Work Phone: Comment on above: Pattern: Unlabored 07-20-2007 11:52-0400 Systolic blood pressure 104 mm[Hg] ADELAIDA Aurelio CHEUNG [facility]; [facility] Work [...] Phone: Comment on above: Method: Oral 09-28-2006 08:090400 Body weight 0 kg Nikki Fast DO Work Phone: [facility]; [facility] Work Phone: 09-28-2006 08:09-0400 Diastolic blood pressure 80 mm[Hg] Nikki Fast DO Work Phone: [facility]; [facility] Work Phone: Comment on above: Patient Position: Sitting; Cuff Location : Left Arm; Cuff Size: Standard 09-28-2006 08:090400 Head Occipital-frontal circumference 0 cm Nikki Fast [...] Date Encounter Type Care Provider Facility Start: 01-03-2025 End: 01-03-2025 ambulatory DENNIS MARCIAL Facility:[facility] Start: 01-03-2025 End: 01-03-2025 Subsequent hospital visit by physician [facility] ([facility]) Work Phone: [facility] Comment on above: Malignant neoplasm o f unspecified part of unspecified bronchus or lung (HCC) [C34.90] Start: 12-31-2024 End: 01-05-2025 Refill Dennis Marcial MD Work Phone: [facility] Comment on above: Refill Request Start: 11-26-2024 End: 11-27-[address] [facility] Work Phone: Start: 11-26-2024 End: 11-26-[address] Dennis Marcial [facility] Work [facility] Start: 11-15-2024 End: 11-17-2024 Refill Dennis Marcial MD Work Phone: [facility] Comment on above: Refill Request Start: 10-31-2024 End: 10-31-2024 Patient encounter procedure [facility] Provider [facility] Department Start: 10-28-2024 End: 10-28-2024 Patient encounter procedure Dennis Marcial MD Work Phone: [facility] Comment on above: Wellness examination (Primary Dx); Primary cancer of right lower lobe of lung (HCC); Pure hypercholesterolemia, unspecified; Encounter for immunization; Primary insomnia; Restless leg syndrome; Paroxysmal atrial fibrillation (HCC); Hypertension, essential; Stage 3b chronic kidney disease (HCC); Chronic pain due to trauma; Sinus congestion; Medicare annual wellness visit, subsequent Start: 10-28-2024 End: 10-28-2024 Patient encounter status Dennis Marcial MD Work Phone: [facility] Work Phone: Start: 10-28-2024 End: 10-28-2024 ambulatory DENNIS REY AGGIE Facility:[id number] Start: 10-24-2024 End: 10-24-2024 Chart abstracting Dennis Marcial MD Work Phone: [facility] Start: 10-21-2024 End: 10-21-[address] Dennis Marcial MD Work Phone: [facility] Work Phone: Start: 10-21-2024 End: 10-21-[address] Alexandra Baker MD -Laboratory [facility] Work Phone: Start: 10-21-2024 End: 10-21-2024 ambulatory [facility] Facility:[facility] Start: 10-08-2024 End: 10-08-2024 Office outpatient visit 15 minutes Ronald Garrido FACILITY EXAMINER.QUALITY ENGINEER MEDICAL DEVICE Work Phone: Pulmonary Medicine Comment on above: Productive cough (Pr imary Dx); Moderate COPD (chronic obstructive pulmonary disease) (HCC); Bronchiectasis without complication (HCC) Start: 10-08-2024 End: 10-08-2024 ambulatory DENNIS MARCIAL Facility:[facility] Start: 09-06-2024 End: 09-08-2024 Refill Dennis Marcial MD Work Phone: [facility] Comment on above: Refill Request Start: 08-29-2024 End: 08-29-[address] 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 Dennis Marcial MD Work Phone: [facility] Work Phone: Start: 07-22-2024 End: 07-22-[address] Alexandra Baker MD -Laboratory, [place] Work Phone: Start: 07-22-2024 End: 07-22-2024 ambulatory Alexandra Baker Facility:[facility] Start: 07-17-2024 End: 07-17-2024 Office outpatient visit 15 minutes Dennis Marcial MD [facility] Phone: [facility] Comment on above: Bronchitis (Primary Dx) Start: 07-17-2024 End: 07-17-2024 ambulatory DENNIS MARCIAL Facility:[id number] Start: 07-10-2024 End: 07-10-2024 Patient encounter procedure Kael Nunez APRN.QUALITY ENGINEER MEDICAL DEVICE Work Phone: [facility] Comment on above: Leg swelling (Primar y Dx) Start: 07-10-2024 End: 07-10-2024 ambulatory DENNIS MARCIAL Facility:[facility] Start: 07-08-2024 End: 07-08-2024 Follow-up encounter Stephane Ibrahim LPN [facility] [place] Start: 07-05-2024 End: 07-05-2024 ambulatory DENNIS MARCIAL Facility:[facility] Start: 07-05-2024 End: 07-05-2024 Subsequent hospital visit by physician [facility] Work Phone: Radiology Comment on above: Bacterial pneumonia [J15.9] Start: 06-28-2024 End: 06-28-2024 ambulatory DENNIS MARCIAL Facility:[facility] Start: 06-28-2024 End: 06-28-2024 Office outpatient visit 25 minutes Ronald Garrido APRN.QUALITY ENGINEER MEDICAL DEVICE Work Phone: Pulmonary Medicine Comment on above: 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); Bacterial pneumonia; 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); Radiation fibrosis of lung (HCC); Exertional dyspnea Start: 06-27-2024 End: 06-27-2024 ambulatory SHANE STEWARD Facility:[facility] Start: 06-27-2024 End: 06-27-2024 Follow-up encounter Royer Ford Work Phone: Hematology/Oncology Comment on above: Encounter for follow -up surveillance of lung cancer (Primary Dx); Malignant neoplasm of unspecified part of unspecified bronchus or lung (HCC) Start: 06-27-2024 End: 06-27-2024 Patient encounter procedure Royer Ford Work Phone: Hematology/Oncology Start: 06-26-2024 End: 06-26-2024 Office outpatient visit 15 minutes Dennis Marcial MD Work Phone: [facility] [place] Comment on above: Bacterial pneumonia (Primary Dx) Start: 06-26-2024 End: 06-26-2024 ambulatory DENNIS MARCIAL Facility:[id number] Start: 06-21-2024 End: 08-21-2024 Follow-up encounter Rocky Gonzales APRN.QUALITY ENGINEER MEDICAL DEVICE Work Phone: [facility] Start: 06-20-2024 End: 06-20-2024 Subsequent hospital visit by physician [facility] Work Phone: Radiology Comment on above: Acute cough [R05.1] Start: 06-20-2024 End: 06-20-2024 ambulatory SHANE STEWARD Facility:[facility] Start: 06-20-2024 End: 06-20-2024 Patient encounter procedure Michael Babin MD Work Phone: [facility] Comment on above: Acute cough (Primary Dx); Centrilobular emphysema (HCC); Community acquired pneumonia of left lung, unspecified part of lung Start: 06-20-2024 End: 06-20-2024 ambulatory DENNIS MARCIAL Facility:[facility] Start: 06-20-2024 End: 06-20-2024 Subsequent hospital visit by physician [facility] ([facility]) Work Phone: Cat Scan Comment on above: Malignant neoplasm o f unspecified part of unspecified bronchus or lung (HCC) [C34.90] Start: 06-17-2024 End: 06-17-2024 Follow-up encounter Stephane Ibrahim LPN [facility] Start: 06-13-2024 End: 06-13-2024 Refill Dennis Marcial MD Work Phone: [facility] Comment on above: Refill Request Encounter for screen ing mammogram for breast cancer [Z12.31] Start: 06-08-2024 End: 06-08-2024 Emergency department patient visit Dr. Indu Anderson DO -Emergency Department Work Phone: Start: 06-08-2024 End: 06-08-2024 ambulatory DENNIS MARCIAL Facility:[facility] Start: 06-08-2024 End: 06-10-2024 Patient encounter procedure Michael Babin MD Work Phone: [facility] Comment on above: Right arm pain (Prim anthony Dx) Start: 06-03-2024 End: 06-03-2024 Refill Dennis Marcial MD Work Phone: [facility] Comment on above: Refill Request Start: 05-13-2024 End: 05-13-[address] Alexandra Baker MD -Laboratory, [place] Work Phone: Start: 05-13-2024 End: 05-13-2024 ambulatory Alexandra Baker Facility:[facility] Start: 05-10-2024 End: 05-10-2024 ambulatory TIMA LÓPEZ Facility:[facility] Start: 05-10-2024 End: 05-10-2024 Patient encounter procedure Radha Rhodesloreta Work Phone: Podiatry Comment on above: Right foot pain (Kaitlynn yudelka Dx); Pain Start: 05-09-2024 End: 05-09-2024 Subsequent hospital visit by physician [facility] Work Phone: Radiology Comment on above: Pain [R52] Start: 05-09-2024 End: 05-09-2024 ambulatory DENNIS MARCIAL Facility:[facility] Start: 05-09-2024 End: 05-09-2024 Patient encounter procedure Tima López FACILITY EXAMINER.QUALITY ENGINEER MEDICAL DEVICE Work Phone: [facility] Comment on above: Pain (Primary Dx) Start: 04-22-2024 End: 04-22-2024 Refill Dennis Marcial MD Work Phone: [facility] Comment on above: Refill Request Start: 04-17-2024 End: 04-17-2024 Patient encounter procedure Dennis Marcial MD Work Phone: [facility] Comment on above: Hypertension, essent ial (Primary [...] Start: 04-17-2024 End: 04-17-2024 ambulatory DENNIS MARCIAL Facility:[id number] Start: 04-01-2024 End: 04-01-2024 Refill Dennis Marcial MD Work Phone: [facility] Comment on above: Refill Request Start: 02-13-2024 End: 02-22-2024 Telephone encounter Dennis Marcial MD Work Phone: [facility] Comment on above: Results Start: 02-12-2024 End: 02-12-2024 ambulatory DENNIS MARCIAL Facility:[id number] Start: 02-12-2024 End: 02-12-2024 Office outpatient visit 15 minutes Dennis Marcial MD Work Phone: [facility] Comment on above: RLS (restless legs s yndrome) (Primary Dx); Gastroesophageal reflux disease, unspecified whether esophagitis present; Iron deficiency anemia, unspecified iron deficiency anemia type; Paroxysmal atrial fibrillation (HCC) Start: 02-08-2024 End: 02-12-2024 Telephone encounter Oscar Mireles MD Work Phone: Pulmonary Medicine Comment on above: Patient Question Start: 01-29-2024 End: 01-30-2024 Patient encounter procedure [facility] in Department Start: 01-25-2024 End: 01-27-2024 Telephone encounter Dennis Marcial MD Work Phone: [facility] Comment on above: Results Medication Problem Start: 01-22-2024 End: 01-22-2024 Telephone encounter Dennis Marcial MD Work Phone: [facility] Comment on above: Orders (Zoloft Rosalinda fication) Start: 01-20-2024 End: 01-20-2024 ambulatory DENNIS MARCIAL Facility:[facility] Start: 01-20-2024 End: 01-20-2024 Patient encounter procedure Jaspreet Curtis APRN.CNP Work Phone: [facility] Comment on above: Dysuria (Primary Dx) ; Acute cystitis with hematuria Start: 01-10-2024 End: 01-11-2024 Refill Dennis Marcial MD Work Phone: [facility] Comment on above: Refill Request Start: 12-26-2023 [...] (HCC); Former cigarette smoker Start: 12-20-2023 ambulatory Iwona Ramirezi ty:[facility] Start: 12-19-2023 End: 12-19-2023 ambulatory Latia Titus LENS GENERATOR Facility:[facility] Start: 12-19-2023 End: 12-19-2023 ambulatory Latia Titus LENS GENERATOR Facility:[facility] Start: 12-18-2023 End: 12-18-2023 Subsequent hospital visit by physician [facility] ([facility]) Work Phone: Cat Scan Comment on above: Malignant neoplasm o f unspecified part of unspecified bronchus or lung (HCC) [C34.90] Start: 11-25-2023 End: 11-25-2023 Patient encounter procedure Tima López APRN.CNP Work Phone: [facility] Comment on above: Rash (Primary Dx); Itching Start: 10-27-2023 Chart abstracting Dennis [facility]cial MD [facility] Start: 09-11-2023 Telephone encounter Dennis Marcial MD Work Phone: [facility] Comment on above: Results Start: 09-05-2023 Refill Dennis Meek MD Work Phone: [facility] Comment on above: Refill Request Start: 09-02-2023 Refill Dennis Meek MD Work Phone: [facility] Comment on above: Refill Request Start: 08-23-2023 End: 08-23-2023 Office outpatient visit 25 minutes Dennis Marcial MD Work Phone: [facility] Comment on above: Hypertension, essent ial (Primary [...] unspecified; Irritable bowel syndrome with diarrhea Start: 06-21-2023 End: 06-21-2023 Office outpatient visit [...] encounter procedure Shane Steward MD Work Phone: [facility] Start: 06-19-2023 Encounter for other preprocedural examination [facility] Start: 06-19-2023 ambulatory [facility] Facilit y:[facility] Start: 06-19-2023 End: 06-19-2023 Preprocedural examination done Hunter Posadas MD Work Phone: [facility] Work Phone: Start: 06-19-2023 End: 06-19-2023 Subsequent hospital visit by physician Hunter Posadas MD Work Phone: [facility] Comment on above: C. difficile diarrhe a [A04.72] Start: 06-12-2023 End: 06-12-2023 Subsequent hospital visit by physician [facility] ([facility]) Work Phone: Cat Scan Comment on above: Malignant neoplasm o f unspecified part of unspecified bronchus or lung (HCC) [C34.90] Start: 06-08-2023 End: 06-08-2023 ambulatory [facility] Work Phone: Start: 06-08-2023 End: 06-08-2023 Patient encounter procedure [facility] [place] Work Phone: Start: 05-10-2023 End: 05-10-2023 Office outpatient visit 15 minutes Dennis Marcial MD Work Phone: 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 (Primary Dx); Degeneration of lumbar or lumbosacral intervertebral disc; Primary cancer of right lower lobe of lung (HCC); Rib pain Start: 04-27-2023 Patient encounter procedure [facility] Prov ider [facility] Department Start: 04-25-2023 Telephone encounter Paula Polanco leannaadilia PAULETTE Work Phone: [facility] Comment on above: airway check Start: 04-20-2023 Refill Oscar Mireles MD Work Phone: Pulmonary Medicine Start: 04-13-2023 Refill Oscar Mireles MD Work Phone: Pulmonary Medicine Comment on above: Refill Request Start: 03-06-2023 Telephone encounter Jayne Woods PA-C Work Phone: [facility] Comment on above: Patient Update Start: 03-06-2023 End: 03-06-2023 Patient encounter procedure Jayne Woods PA-C Work Phone: [facility] Comment on above: C. difficile diarrhe a (Primary Dx) Start: 02-09-2023 End: 02-09-2023 Patient encounter procedure Kael King SANJAY.QUALITY ENGINEER MEDICAL DEVICE Work Phone: [facility] Comment on above: C. difficile diarrhe a Start: 01-26-2023 Telephone encounter Michael Blanco MD Work Phone: [facility] Comment on above: Results (Urine Cx mi xed) Start: 01-25-2023 End: 01-25-2023 Patient encounter procedure Tima Karson FACILITY EXAMINER.QUALITY ENGINEER MEDICAL DEVICE Work Phone: [facility] Comment on above: Burning with urinati on (Primary Dx); Vaginal itching Start: 01-24-2023 Refill Dennis Meek MD Work Phone: [facility] Comment on above: Refill Request Start: 01-17-2023 Telephone encounter Dennis Marcial MD Work Phone: [facility] Comment on above: Patient Update Results Start: 01-17-2023 Unlisted evaluation and management service Dennis Marcial MD Work Phone: [facility] Comment on above: Orders; Opened In Er ror Start: 01-15-2023 Telephone encounter Jaspreet Curtis APRN.QUALITY ENGINEER MEDICAL DEVICE Work Phone: [facility] Start: 01-07-2023 End: 01-07-2023 Patient encounter procedure Jaspreet Curtis APRN.QUALITY ENGINEER MEDICAL DEVICE Work Phone: [facility] Comment on above: Diarrhea, unspecifie d type (Primary Dx) Start: 01-06-2023 Telephone encounter Dennis Marcial MD Work Phone: [facility] Comment on above: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 [address] [address] [place] [address] 6 MO OV/CT 06/20* Hematology/Oncology Comment on above: 6 MO OV/CT 06/20* Start: 06-26-2024 End: 06-26-2024 Patient encounter procedure 06/26/2024 4:20 PM EST [facility] [address] [place] [phone] Dennis Marcial MD [address] [place] [address] Urgent Care Follow Up- Pneumonia [facility] Comment on above: Urgent Care Follow Up- Pneumonia Start: 06-21-2024 BP Controlled (<130/80) BP Controlled (<130/80) [facility] in Start: 06-21-2024 Complete blood count Hemoglobin/Hematocrit [facility] Start: 06-20-2024 End: 06-20-2024 Patient encounter procedure 06/20/2024 10:00 AM EST Appointment Cat Scan [address] [place] [address] Malignant neoplasm of unspecified part of unspecified bronchus or lung (HCC) [C34.90] Cat Scan Comment on above: Malignant neoplasm of unspecified part o f unspecified bronchus or lung (HCC) [C34.90] Start: 06-20-2024 End: 06-20-2024 ambulatory 06/20/2024 9:30 AM EST Results Only [facility] [address] [place] [address] Labs [facility] Comment on above: Labs Start: 06-13-2024 End: 06-13-2024 Patient encounter procedure Radiology Comment on above: DXA-AXIAL SKELETON Encounter for screen ing mammogram for breast cancer Start: 06-13-2024 End: 06-13-2024 Patient encounter procedure 06/13/2024 10:15 AM EST Office Visit Podiatry [address] [place] [address] Radha Sagastume [address] [address] Right foot follow up Podiatry Comment on above: Right foot follow up Start: 06-08-2024 [facility] Start: 05-10-2024 Annual PCP Team Chronic Disease Visit Annual PCP Team Chronic Disease Visit [facility] Start: 05-10-2024 BP Controlled (<130/80) BP Controlled (<130/80) [facility] Start: 05-10-2024 End: 05-10-2024 Patient encounter procedure 05/10/2024 9:00 AM EST Office Visit Podiatry [address] [place] [address] Radha Sagastume [address] [id number] Pain [R52] Podiatry Comment on above: Pain [R52] Start: 05-08-2024 Advance Directive Discussion Advance Directive Discussion [facility] Start: 04-17-2024 End: 04-17-2024 Patient encounter procedure 04/17/2024 3:50 PM EST Office Visit [facility] [address] [place] [phone] Dennis Marcial MD [address] [place] [address] medicare wellness [facility] Comment on above: medicare wellness Start: 04-17-2024 End: 07-17-2024 CBC W Auto Differential panel - Blood COMPLETE BLOOD COUNT AND DIFFERENTIAL Lab Routine Iron deficiency anemia, unspecified iron deficiency anemia type Expected: 04/17/2024, Expires: 07/17/2024 [facility] Comment on above: Expected: 04/17/2024, Expires: Start: 04-17-2024 End: 07-17-2024 Comprehensive metabolic 2000 panel - Serum or Plasma COMPREHENSIVE METABOLIC PANEL Lab Routine Hypertension, essential Pure hypercholesterolemia, unspecified Expected: 04/17/2024, Expires: 07/17/2024 [facility] Comment on above: Expected: 04/17/2024, Expires: Start: 04-17-2024 End: 07-17-2024 Ferritin [Mass/volume] in Serum or Plasma FERRITIN Lab Routine Iron deficiency anemia, unspecified iron deficiency anemia type Expected: 04/17/2024, Expires: 07/17/2024 [facility] Comment on above: Expected: 04/17/2024, Expires: 5 Start: 04-17-2024 End: 07-17-2024 Iron and Iron binding capacity panel - Serum or Plasma IRON AND TIBC Lab Routine Iron deficiency anemia, unspecified iron deficiency anemia type Expected: 04/17/2024, Expires: 07/17/2024 [facility] Comment on above: Expected: 04/17/2024, Expires: Start: 04-17-2024 End: 07-17-2024 Lipid 1996 panel - Serum or Plasma LIPID PANEL BASIC Lab Routine Pure hypercholesterolemia, unspecified Expected: 04/17/2024, Expires: 07/17/2024 [facility] Comment on above: Expected: 04/17/2024, Expires: Start: 03-06-2024 BP Controlled (<130/80) BP Controlled (<130/80) [facility] Start: 02-28-2024 End: 02-28-2024 Patient encounter procedure 02/28/2024 8:50 AM EDT Office Visit [facility] [address] [place] [id number] Dennis Marcial MD [address] [place], [place] [phone] Annual Medicare Wellness Exam [facility] Comment on above: Annual Medicare Wellness Exam Start: 02-10-2024 BP Controlled (<130/80) BP Controlled (<130/80) [facility] Start: 01-31-2024 Annual PCP Team Chronic Disease Visit Annual PCP Team Chronic Disease Visit [facility] Start: 01-31-2024 Complete blood count Hemoglobin/Hematocrit [facility] Start: 01-31-2024 Creatinine measurement Serum Creatinine [facility] Start: 01-31-2024 Hemoglobin/Hematocrit Hemoglobin/Hematocrit [facility] Start: 01-31-2024 Serum Creatinine Serum Creatinine [facility] Start: 01-08-2024 BP CONTROLLED (<130/80) BP CONTROLLED (<130/80) [facility] Start: 01-07-2024 Covid-19 Vaccine ( season) Covid-19 Vaccine ( season) [facility] Start: 01-07-2024 Influenza [facility] Start: 01-03-2024 ANNUAL PCP TEAM CHRONIC DISEASE VISIT ANNUAL PCP TEAM CHRONIC DISEASE VISIT [facility] Start: 12-28-2023 BP CONTROLLED (<130/80) BP CONTROLLED (<130/80) [facility] Start: 12-26-2023 End: 12-26-2023 Patient encounter procedure 12/26/2023 10:30 AM EDT Office Visit [facility] [address] [place] [address] Oscar Mireles MD [address] [place], [place] [phone] 6 month follow up Pulmonary Medicine Comment on above: 6 month follow up Start: 12-26-2023 End: 12-26-2023 ambulatory 12/26/2023 10:00 AM EDT Visit (SP) Office Hematology/Oncology [address] [place] [address] [place] [address] [place] [address] 6 MO OV/CT 12/18/23* Hematology/Oncology Comment on above: 6 MO OV/CT 12/18/23* Start: 12-18-2023 End: 12-18-2023 Patient encounter procedure 12/18/2023 10:00 AM EDT Appointment Cat Scan [address] [place], [place] [phone] chest ct Cat Scan Comment on above: chest ct Start: 11-29-2023 ANNUAL PCP TEAM CHRONIC DISEASE VISIT ANNUAL PCP TEAM CHRONIC DISEASE VISIT [facility] Start: 11-29-2023 BP CONTROLLED (<130/80) BP CONTROLLED (<130/80) [facility] Start: 11-14-2023 End: 11-14-2023 Patient encounter procedure 11/14/2023 3:00 PM EDT Office Visit Podiatry [address] [place], [place] [address] Radha Sagastume [address] [facility] [place] [place] [address] left foot ingrown toenail 2nd toe Podiatry Comment on above: left foot ingrown toenail 2nd toe Start: 10-08-2023 HEMOGLOBIN/HEMATOCRIT HEMOGLOBIN/HEMATOCRIT [facility] Start: 10-08-2023 SERUM CREATININE SERUM CREATININE [facility] Start: 09-13-2023 BP CONTROLLED (<130/80) BP CONTROLLED (<130/80) [facility] Start: 08-31-2023 SERUM CREATININE SERUM CREATININE [facility] Start: 08-30-2023 ANNUAL PCP TEAM CHRONIC DISEASE VISIT ANNUAL PCP TEAM CHRONIC DISEASE VISIT [facility] Start: 08-30-2023 BP CONTROLLED (<130/80) BP CONTROLLED (<130/80) [facility] Start: 08-24-2023 HEMOGLOBIN/HEMATOCRIT HEMOGLOBIN/HEMATOCRIT [facility] Start: 08-23-2023 End: 11-22-2023 CBC W Auto Differential panel - Blood COMPLETE BLOOD COUNT AND DIFFERENTIAL Lab Routine Iron deficiency anemia, unspecified iron deficiency anemia type Expected: 08/23/2023, Expires: 11/22/2023 [facility] Work Phone: Comment on above: Expected: 08/23/2023, Expires: Start: 08-23-2023 End: 11-22-2023 Comprehensive metabolic 2000 panel - Serum or Plasma COMPREHENSIVE METABOLIC PANEL Lab Routine Hypertension, essential Pure hypercholesterolemia Expected: 08/23/2023, Expires: 11/22/2023 [facility] Work Phone: Comment on above: Expected: 08/23/2023, Expires: 4 Start: 08-23-2023 End: 11-22-2023 Iron and Iron binding capacity panel - Serum or Plasma IRON AND TIBC Lab Routine Iron deficiency anemia, unspecified iron deficiency anemia type Expected: 08/23/2023, Expires: 11/22/2023 [facility] Work Phone: Comment on above: Expected: 08/23/2023, Expires: 4 Start: 08-23-2023 End: 11-22-2023 Lipid 1996 panel - Serum or Plasma LIPID PANEL BASIC Lab Routine Pure hypercholesterolemia Expected: 08/23/2023, Expires: 11/22/2023 [facility] Work Phone: Comment on above: Expected: 08/23/2023, Expires: 4 Start: 07-28-2023 Covid-19 Vaccine () Covid-19 Vaccine () [facility] Start: 07-14-2023 SERUM CREATININE SERUM CREATININE [facility] Start: 06-02-2023 End: 01-06-2024 Ct thorax w/o contrast material CT CHEST WO IVCON Radiology Routine Malignant neoplasm of unspecified part of unspecified bronchus or lung (HCC) Expected: 06/02/2023, Expires: 01/06/2024 [facility] Work Phone: Comment on above: Expected: 06/02/2023, Expires: Start: 05-08-2023 Advance Directive Discussion Advance Directive Discussion [facility] Start: 04-26-2023 HEMOGLOBIN/HEMATOCRIT HEMOGLOBIN/HEMATOCRIT [facility] Start: 04-26-2023 SERUM CREATININE SERUM CREATININE [facility] Start: 04-19-2023 Screening for osteoporosis Bone Density Screening [facility] Start: 02-04-2023 SERUM CREATININE SERUM CREATININE [facility] Start: 02-02-2023 ANNUAL PCP TEAM CHRONIC DISEASE VISIT ANNUAL PCP TEAM CHRONIC DISEASE VISIT [facility] Start: 02-02-2023 BP CONTROLLED (<130/80) BP CONTROLLED (<130/80) [facility] Start: 01-06-2023 Covid-19 Vaccine () Covid-19 Vaccine () [facility] Start: 01-06-2023 Influenza vaccination [facility] Start: 01-04-2023 HEMOGLOBIN/HEMATOCRIT HEMOGLOBIN/HEMATOCRIT [facility] Start: 10-14-2022 HEMOGLOBIN/HEMATOCRIT HEMOGLOBIN/HEMATOCRIT [facility] Start: 10-14-2022 Mammography [facility] Start: 10-14-2022 Screening for malignant neoplasm of breast Mammogram Screening [facility] Start: 10-08-2022 HEMOGLOBIN/HEMATOCRIT HEMOGLOBIN/HEMATOCRIT [facility] Start: 10-08-2022 SERUM CREATININE SERUM CREATININE [facility] Start: 08-29-2022 End: 10-29-2022 Comprehensive metabolic 2000 panel - Serum or Plasma COMP METABOLIC PANEL Lab Routine Pure hypercholesterolemia Hypertension, essential Expected: 08/29/2022, Expires: 10/29/2022 [facility] Work Phone: Comment on above: Expected: 08/29/2022, Expires: Start: 08-29-2022 End: 10-29-2022 Erythrocyte sedimentation rate SED RATE WESTERGREN Lab Routine Polyarthritis Expected: 08/29/2022, Expires: 10/29/2022 [facility] Work Phone: Comment on above: Expected: 08/29/2022, Expires: 3 Start: 08-29-2022 End: 10-29-2022 Lipid 1996 panel - Serum or Plasma LIPID PANEL BASIC Lab Routine Pure hypercholesterolemia Expected: 08/29/2022, Expires: 10/29/2022 [facility] Work Phone: Comment on above: Expected: 08/29/2022, Expires: 3 Start: 08-29-2022 End: 10-29-2022 Nuclear Ab [Presence] in Serum by Immunoassay STAN BLOOD Lab Routine Polyarthritis Expected: 08/29/2022, Expires: 10/29/2022 [facility] Work Phone: Comment on above: Expected: 08/29/2022, Expires: 3 Start: 08-29-2022 End: 10-29-2022 Rheumatoid factor [Units/volume] in Serum or Plasma RHEUMATOID FACTOR BL Lab Routine Polyarthritis Expected: 08/29/2022, Expires: 10/29/2022 [facility] Work Phone: Comment on above: Expected: 08/29/2022, Expires: 3 Start: 08-26-2022 End: 10-26-2022 Iron and Iron binding capacity panel - Serum or Plasma IRON + TIBC Lab Routine Iron deficiency anemia secondary to inadequate dietary iron intake Expected: 08/26/2022, Expires: 10/26/2022 [facility] Work Phone: Comment on above: Expected: 08/26/2022, Expires: 3 Start: 06-05-2022 COVID-19 VACCINE (5 - Pfizer series) COVID-19 VACCINE (5 - Pfizer series) [facility] Start: 05-08-2022 ADVANCE DIRECTIVE DISCUSSION ADVANCE DIRECTIVE DISCUSSION [facility] Start: 04-06-2022 End: 02-03-2023 Ct thorax w/o contrast material CT CHEST WO IVCON Radiology Routine Malignant neoplasm of unspecified part of unspecified bronchus or lung (HCC) Expected: 04/06/2022, Expires: 02/03/2023 [facility] Work Phone: Comment on above: Expected: 04/06/2022, Expires: 3 Start: 03-21-2022 End: 05-21-2022 CBC W Auto Differential panel - Blood CBC + DIFF Lab Routine NSCLC of right lung (HCC) Iron deficiency anemia secondary to inadequate dietary iron intake Expected: 03/21/2022, Expires: 05/21/2022 [facility] Work Phone: Comment on above: Expected: 03/21/2022, Expires: 3 Start: 03-21-2022 End: 05-21-2022 Comprehensive metabolic 2000 panel - Serum or Plasma COMP METABOLIC PANEL Lab Routine NSCLC of right lung (HCC) Iron deficiency anemia secondary to inadequate dietary iron intake Expected: 03/21/2022, Expires: 05/21/2022 [facility] Work Phone: Comment on above: Expected: 03/21/2022, Expires: 3 Start: 03-21-2022 End: 05-21-2022 Ferritin [Mass/volume] in Serum or Plasma FERRITIN BLD Lab Routine NSCLC of right lung (HCC) Iron deficiency anemia secondary to inadequate dietary iron intake Expected: 03/21/2022, Expires: 05/21/2022 [facility] Work Phone: Comment on above: Expected: 03/21/2022, Expires: 3 Start: 03-21-2022 End: 05-21-2022 Iron and Iron binding capacity panel - Serum or Plasma IRON + TIBC Lab Routine NSCLC of right lung (HCC) Iron deficiency anemia secondary to inadequate dietary iron intake Expected: 03/21/2022, Expires: 05/21/2022 [facility] Work Phone: Comment on above: Expected: 03/21/2022, Expires: 3 Start: 03-08-2022 PNEUMOCOCCAL: 65+ (2 - PPSV23 if available, else PCV20) PNEUMOCOCCAL: 65+ (2 - PPSV23 if available, else PCV20) [facility] Start: 03-08-2022 PNEUMOCOCCAL: 65+ (2 - PPSV23 or PCV20) PNEUMOCOCCAL: 65+ (2 - PPSV23 or PCV20) [facility] Start: 02-02-2022 End: 04-04-2022 Comprehensive metabolic 2000 panel - Serum or Plasma COMP METABOLIC PANEL Lab Routine Primary hypertension Pure hypercholesterolemia Expected: 02/02/2022, Expires: 04/04/2022 [facility] Work Phone: Comment on above: Expected: 02/02/2022, Expires: 2 Start: 02-02-2022 End: 04-04-2022 Lipid 1996 panel - Serum or Plasma LIPID PANEL BASIC Lab Routine Pure hypercholesterolemia Expected: 02/02/2022, Expires: 04/04/2022 [facility] Work Phone: Comment on above: Expected: 02/02/2022, Expires: 2 Start: 01-06-2022 Influenza vaccination INFLUENZA (#1) [facility] Start: 10-27-2021 End: 12-27-2021 OCCULT BLD EXAM-DIAG OCCULT BLD EXAM-DIAG Microbiology Routine Anemia in other chronic diseases classified elsewhere Expected: 10/27/2021, Expires: 12/27/2021 [facility] Work Phone: Comment on above: Expected: 10/27/2021, Expires: 2 Start: 10-26-2021 End: 12-26-2021 OCCULT BLD EXAM-DIAG OCCULT BLD EXAM-DIAG Microbiology Routine Anemia in other chronic diseases classified elsewhere Expected: 10/26/2021, Expires: 12/26/2021 [facility] Work Phone: Comment on above: Expected: 10/26/2021, Expires: 2 Start: 10-25-2021 End: 12-25-2021 OCCULT BLD EXAM-DIAG OCCULT BLD EXAM-DIAG Microbiology Routine Anemia in other chronic diseases classified elsewhere Expected: 10/25/2021, Expires: 12/25/2021 [facility] Work Phone: Comment on above: Expected: 10/25/2021, Expires: 2 Start: 10-19-2021 End: 11-02-2021 Influenza virus A and B RNA and SARS-CoV-2 (COVID-19) N gene panel - Respiratory specimen by STEVE with probe detection [facility] Work Phone: Comment on above: Expected: 10/19/2021, Expires: 2 Start: 10-19-2021 End: 11-02-2021 SARS-CoV-2 (COVID-19) RNA [Presence] in Respiratory specimen by STEVE with probe detection 2019 CORONAVIRUS Microbiology Routine NSCLC of right lung (HCC) Shortness of breath Centrilobular emphysema (HCC) Paralyzed hemidiaphragm Expected: 10/19/2021, Expires: 11/02/2021 [facility] Work Phone: Comment on above: Expected: 10/19/2021, Expires: 2 Start: 10-08-2021 End: 12-08-2021 FERRITIN BLD [facility] Work Phone: Comment on above: Expected: 10/08/2021, Expires: 2 Start: 10-08-2021 End: 12-08-2021 Folate [Mass/volume] in Serum or Plasma [facility] Work Phone: Comment on above: Expected: 10/08/2021, Expires: 2 Start: 10-08-2021 End: 12-08-2021 IRON + TIBC [facility] Work Phone: Comment on above: Expected: 10/08/2021, Expires: 2 Start: 10-08-2021 End: 12-08-2021 VITAMIN B12 BLOOD [facility] Work Phone: Comment on above: Expected: 10/08/2021, Expires: 2 Start: 07-06-2021 COVID-19 VACCINE (4 - Booster for Pfizer series) COVID-19 VACCINE (4 - Booster for Pfizer series) [facility] Start: 05-08-2021 ADVANCE DIRECTIVE DISCUSSION ADVANCE DIRECTIVE DISCUSSION [facility] Start: 05-03-2021 COVID-19 VACCINE (4 - Booster for Pfizer series) COVID-19 VACCINE (4 - Booster for Pfizer series) [facility] Start: 05-03-2021 PNEUMOCOCCAL: 65+ (2 - PPSV23 if available, else PCV20) PNEUMOCOCCAL: 65+ (2 - PPSV23 if available, else PCV20) [facility] Start: 05-03-2021 PNEUMOCOCCAL: 65+ (2 - PPSV23 or PCV20) PNEUMOCOCCAL: 65+ (2 - PPSV23 or PCV20) [facility] Start: 04-16-2021 LIPID SCREEN LIPID SCREEN [facility] Start: 10-29-2020 PNEUMOVAX AGE 65 AND OVER WITH 5YR LOOKBACK (#1) PNEUMOVAX AGE 65 AND OVER WITH 5YR LOOKBACK (#1) [facility] Start: 2015 RSV Vaccine (1 - 1-dose 60+ series) RSV Vaccine (1 - 1-dose 60+ series) [facility] Start: 08-31-2015 Blood count complete auto&auto difrntl wbc CBC W/AUTO DIFF WBC (87735) [facility]; [facility] Work Phone: Start: 08-31-2015 Assay of thyroid stimulating hormone tsh TSH (15036) [facility]; [facility] Work Phone: Start: 08-31-2015 Comprehensive metabolic panel METABOLIC PANEL, COMPREHENSIVE (46966) [facility]; [facility] Work Phone: Start: 08-31-2015 Lipid panel LIPID PANEL (16201) [facility]; [facility] Work Phone: Start: 08-31-2015 25 hydroxy includes fractions if performed Vitamin D Hydroxy (46610) [facility]; [facility] Work Phone: Start: 08-31-2015 Alpha-fetoprotein serum [id number] (90363) [facility]; [facility] Work Phone: Start: 08-31-2015 Procedure Education Eprescribed prescriptions (G8553) [facility]; [facility] Work Phone: Start: 04-27-2015 Procedure Education Eprescribed prescriptions (G8553) [facility]; [facility] Work Phone: Start: 12-22-2014 Cyanocobalamin vitamin b-12 VITAMIN B-12 (CYANOCOBALAMIN) (68155) [facility]; [facility] Work Phone: Comment on above: recheck in 6 weeks Start: 12-15-2014 Lipid panel LIPID PANEL (11342) [facility]; [facility] Work Phone: Start: 12-15-2014 Alpha-fetoprotein serum [id number] (78379) [facility]; [facility] Work Phone: Start: 12-15-2014 Cyanocobalamin vitamin b-12 VITAMIN B-12 (CYANOCOBALAMIN) (17086) [facility]; [facility] Work Phone: Start: 12-15-2014 Blood count complete auto&auto difrntl wbc CBC W/AUTO DIFF WBC (99197) [facility]; [facility] Work Phone: Start: 12-15-2014 Urnls dip stick/tablet reagent auto microscopy URINALYSIS, W/ MICRO (64302) [facility]; [facility] Work Phone: Start: 12-15-2014 Comprehensive metabolic panel METABOLIC PANEL, COMPREHENSIVE (26658) [facility]; [facility] Work Phone: Start: 12-15-2014 Assay of thyroid stimulating hormone tsh TSH (12718) [facility]; [facility] Work Phone: Start: 12-15-2014 25 hydroxy includes fractions if performed Vitamin D Hydroxy (65941) [facility]; [facility] Work Phone: Start: 12-15-2014 Procedure Education Eprescribed prescriptions (G8553) [facility]; [facility] Work Phone: Start: 10-31-2014 Provider Instructions for Treatment Follow up if no improvement or if symptoms worsen [facility]; [facility] Work Phone: Start: 08-11-2014 25 hydroxy includes fractions if performed Vitamin D Hydroxy (05899) [facility]; [facility] Work Phone: Start: 08-11-2014 Comprehensive metabolic panel METABOLIC PANEL, COMPREHENSIVE (38938) [facility]; [facility] Work Phone: Start: 08-11-2014 Lipid panel LIPID PANEL (48173) [facility]; [facility] Work Phone: Start: 08-11-2014 Procedure Education Eprescribed prescriptions (G8553) [facility]; [facility] Work Phone: Start: 06-16-2014 Blood count manual cell count each CBC with auto diff (99032) [facility]; [facility] Work Phone: Start: 06-16-2014 Alpha-fetoprotein serum [id number] (84942) [facility]; [facility] Work Phone: Start: 06-16-2014 Comprehensive metabolic panel METABOLIC PANEL, COMPREHENSIVE (37666) [facility]; [facility] Work Phone: Start: 06-16-2014 Lipid panel LIPID PANEL (29587) [facility]; [facility] Work Phone: Start: 06-16-2014 25 hydroxy includes fractions if performed Vitamin D Hydroxy (21098) [facility]; [facility] Work Phone: Start: 06-16-2014 Assay of phosphorus inorganic PHOSPHORUS (10878) [facility]; [facility] Work Phone: Start: 06-16-2014 Assay of parathormone PARATHORMONE (54015) [facility]; [facility] Work Phone: Start: 06-16-2014 Protein electrophoretic fractj&quantj serum [facility]; [facility] Work Phone: Start: 06-16-2014 Assay of thyroid stimulating hormone tsh TSH (85939) [facility]; [facility] Work Phone: Start: 06-16-2014 Calcium urine quantitative timed specimen URINE CALCIUM TRAY TIMED 24 Hour (57533) [facility]; [facility] Work Phone: Start: 06-16-2014 Procedure Education Eprescribed prescriptions (G8553) [facility]; [facility] Work Phone: Start: 05-23-2014 Procedure Education Eprescribed prescriptions (G8553) [facility]; [facility] Work Phone: Start: 12-31-2013 Cul bact xcpt urine blood/stool aerobic isol LIMA CULTURE-OTHER (55227) [facility]; [facility] Work Phone: Comment on above: back incision Start: 12-31-2013 Iadna s aureus methicillin resist amp probe tq MRSA Culture (15280) [facility]; [facility] Work Phone: Comment on above: nose Start: 12-06-2013 Thromboplastin time partial plasma/whole blood PTT (Activated Partial Thromboplastin Time) (26803) [facility]; [facility] Work Phone: Start: 12-06-2013 Alpha-fetoprotein serum [id number] (71097) [facility]; [facility] Work Phone: Start: 12-06-2013 Prothrombin time PT (Prothrobim Time) (67235) [facility]; [facility] Work Phone: Start: 12-06-2013 Comprehensive metabolic panel METABOLIC PANEL, COMPREHENSIVE (90219) [facility]; [facility] Work Phone: Start: 12-06-2013 Comprehensive metabolic panel METABOLIC PANEL, COMPREHENSIVE (34204) [facility]; [facility] Work Phone: Start: 12-06-2013 Lipid panel LIPID PANEL (56381) [facility]; [facility] Work Phone: Start: 12-04-2013 Procedure Education Eprescribed prescriptions (G8553) [facility]; [facility] Work Phone: Start: 11-05-2013 Lipid panel LIPID PANEL (89866) [facility]; [facility] Work Phone: Start: 07-06-2013 Lipid panel LIPID PANEL (96530) [facility]; [facility] Work Phone: Start: 07-06-2013 Comprehensive metabolic panel METABOLIC PANEL, COMPREHENSIVE (74936) [facility]; [facility] Work Phone: Start: 07-06-2013 25 hydroxy includes fractions if performed Vitamin D Hydroxy (29716) [facility]; [facility] Work [...] cell count each CBC WITH MANUAL DIFF (28426) [facility]; [facility] Work Phone: Start: 08-02-2011 Comprehensive metabolic panel METABOLIC PANEL, COMPREHENSIVE (76478) [facility]; [facility] Work Phone: Start: 08-02-2011 Assay of thyroid stimulating hormone tsh TSH (29765) [facility]; [facility] Work Phone: Start: 08-02-2011 Lipid panel LIPID PANEL (33869) [facility]; [facility] Work Phone: Start: 08-02-2011 25 hydroxy includes fractions if performed Vitamin D Hydroxy (23725) [facility]; [facility] Work Phone: Start: 08-02-2011 Provider Instructions for Treatment *Bisphosphonate Education [facility]; [facility] Work Phone: Start: 01-31-2011 Blood count manual cell count each CBC WITH MANUAL DIFF (01563) [facility]; [facility] Work Phone: Start: 01-31-2011 Comprehensive metabolic panel METABOLIC PANEL, COMPREHENSIVE (84648) [facility]; [facility] Work Phone: Start: 01-31-2011 Assay of parathormone PARATHORMONE (47492) [facility]; [facility] Work Phone: Start: 01-31-2011 25 hydroxy includes fractions if performed Vitamin D Hydroxy (19987) [facility]; [facility] Work Phone: Start: 01-31-2011 Lipid panel LIPID PANEL (24578) [facility]; [facility] Work Phone: Start: 01-31-2011 Provider Instructions for Treatment *Bisphosphonate Education [facility]; [facility] Work Phone: Start: 08-10-2010 Comprehensive metabolic panel METABOLIC PANEL, COMPREHENSIVE (56755) [facility] Work Phone: Start: 08-10-2010 Lipid panel LIPID PANEL (18550) [facility]; [facility] Work Phone: Start: 08-10-2010 1 25 dihydroxy includes fractions if performed VITAMIN D, 1, 25-DIHYDROXY (38764) [facility]; [facility] Work Phone: Start: 08-10-2010 Provider Instructions for Treatment Diet, Exercise, and Wt loss [facility]; [facility] Work Phone: Start: 06-07-2010 25 hydroxy includes fractions if performed Vitamin D Hydroxy (60350) [facility]; [facility] Work Phone: Start: 06-07-2010 Provider Instructions for Treatment *Antibiotic Usage Education - Female [facility]; [facility] Work Phone: Start: 03-17-2010 Lipid panel LIPID PANEL (57352) [facility]; [facility] Work Phone: Start: 03-17-2010 Comprehensive metabolic panel METABOLIC PANEL, COMPREHENSIVE (01392) [facility]; [facility] Work Phone: Start: 03-17-2010 Blood count manual cell count each CBC WITH MANUAL DIFF (73313) [facility]; [facility] Work Phone: Start: 03-17-2010 25 hydroxy includes fractions if performed Vitamin D Hydroxy (16843) [facility]; [facility] Work Phone: Start: 03-17-2010 Assay of thyroid stimulating hormone tsh TSH (11828) [facility]; [facility] Work Phone: Start: 03-17-2009 Assay of thyroid stimulating hormone tsh TSH (62845) [facility]; [facility] Work Phone: Start: 03-17-2009 Sedimentation rate rbc non-automated SED RATE ERYTHROCYTE (77793) [facility]; [facility] Work Phone: Start: 03-17-2009 C-reactive protein C-REACTIVE PROTEIN (10154) [facility]; [facility] Work Phone: Start: 03-17-2009 Comprehensive metabolic panel METABOLIC PANEL, COMPREHENSIVE (00323) [facility]; [facility] Work Phone: Start: 03-17-2009 Blood count manual cell count each CBC WITH MANUAL DIFF (96099) [facility]; [facility] Work Phone: Start: 03-17-2009 Blood occult peroxidase actv qual feces 1 deter OCCULT BLOOD FECES SCREEN (04044) [facility]; [facility] Work Phone: Start: 03-17-2009 Culture bacterial any source anaerobic iso&id C-DIFFICILE, STOOL (70643) [facility]; [facility] Work Phone: Start: 03-17-2009 Leukocyte assmt fecal qual/semiquantitative LEUKOCYTE COUNT, FECAL (00042) [facility]; [facility] Work Phone: Start: 03-17-2009 Ova&parasites direct smears concentration & id OVA & PARASITE DIR SMEAR (84865) [facility]; [facility] Work Phone: Start: 03-17-2009 Cul bact stool aerobic isol salmonella&shigell LIMA CULTURE-STOOL (50466) [facility]; [facility] Work Phone: Start: 03-17-2009 Provider Instructions for Treatment [facility]; [facility] Work Phone: Start: 01-19-2009 Provider Instructions for Treatment FOLLOW UP IN 3 WEEKS [facility]; [facility] Work Phone: Start: 11-19-2008 25 hydroxy includes fractions if performed Vitamin D Hydroxy (35946) [facility]; [facility] Work Phone: Start: 10-14-2008 25 hydroxy includes fractions if performed Vitamin D Hydroxy (57450) [facility]; [facility] Work Phone: Start: 10-14-2008 Cyanocobalamin vitamin b-12 VITAMIN B-12 (CYANOCOBALAMIN) (55284) [facility]; [facility] Work Phone: Start: 07-20-2007 Provider Instructions for Treatment FOLLOW UP IN 2 WEEKS [facility]; [facility] Work Phone: Start: 09-28-2006 Provider Instructions for Treatment URI treament [facility]; [facility] Work Phone: Start: 09-28-2006 Iaadiadoo streptococcus group a Rapid Strep Test, Office (21230) [facility]; [facility] Work Phone: Start: 09-28-2006 Cul bact xcpt urine blood/stool aerobic isol LIMA CULTURE-OTHER (41106) [facility]; [facility] Work Phone: Start: 09-28-2006 Culture bacterial any source anaerobic iso&id BACT CULTURE ANY-ANAEROBIC (75011) [facility]; [facility] Work Phone: Start: 10-29-2005 SHINGRIX VACCINE (1 of 2) SHINGRIX VACCINE (1 of 2) [facility] Start: 10-29-2000 COLOGUARD (FIT-DNA) COLOGUARD (FIT-DNA) [facility] Start: 10-29-[address] COLONOGRAPHY [facility] Start: 10-29-2000 FECAL OCCULT BLOOD FECAL OCCULT BLOOD [facility] Start: 10-29-2000 Screening for malignant neoplasm of colon [facility] Start: 10-29-2000 SIGMOIDOSCOPY SIGMOIDOSCOPY [facility] Start: 1995 Mammography MAMMOGRAM [facility] Start: 10-29-1985 Zoledronic acid therapy ALPHA-1 ANTITRYPSIN DEFICIENCY SCREENING [facility] Start: 10-29-1974 SHINGRIX VACCINE (1 of 2) SHINGRIX VACCINE (1 of 2) [facility] Start: 10-29-1974 Urine microalbumin profile [facility] Start: 10-29-1973 ANNUAL PCP TEAM CHRONIC DISEASE VISIT ANNUAL PCP TEAM CHRONIC DISEASE VISIT [facility] Start: 10-29-1973 Anxiety Screening Anxiety Screening [facility] Start: 10-29-1973 BP CONTROLLED (<130/80) BP CONTROLLED (<130/80) [facility] in Start: 10-29-1973 HEPATITIS C SCREENING HEPATITIS C SCREENING [facility] Start: 10-29-1973 HIV SCREENING HIV SCREENING [facility] Start: 10-29-1966 Screening for malignant neoplasm of cervix Cervical Cancer Screening [facility] Bacteria identified in Urine by Culture URINE CULTURE Microbiology Routine Burning with urination 01/25/2023 12:31 PM EDT [facility] Work Phone: Bacteria identified in Urine by Culture URINE CULTURE Microbiology Routine Dysuria Ordered: 01/20/2024 [facility] Comment on above: Ordered: 01/20/2024 Calprotectin [Mass/mass] in Stool CALPROTECTIN,FECAL Lab Routine C. difficile diarrhea Ordered: 03/06/2023 [facility] Work Phone: Comment on above: Ordered: 03/06/2023 Clostridioides difficile toxin genes [Presence] in Stool by STEVE with probe detection C. DIFFICILE PCR Lab Routine Diarrhea, unspecified type Ordered: 12/27/2022 [facility] Work Phone: Comment on above: Ordered: 12/27/2022 Clostridioides difficile toxin genes [Presence] in Stool by STEVE with probe detection C. DIFFICILE PCR Lab Routine Diarrhea, unspecified type Ordered: 01/07/2023 [facility] Work Phone: Comment on above: Ordered: 01/07/2023 Clostridioides difficile toxin genes [Presence] in Stool by STEVE with probe detection C. DIFFICILE PCR Lab Routine C. difficile diarrhea Ordered: 03/06/2023 [facility] Work Phone: Comment on above: Ordered: 03/06/2023 COVID & INFLUENZA A/ B & RSV PCR, ROUTINE COVID & INFLUENZA A/B & RSV PCR, ROUTINE Microbiology Routine Acute cough 06/20/2024 1:03 PM EST [facility] Work Phone: End: 07-20-2024 CT Chest WO contrast CT CHEST WO IVCON Radiology Routine Malignant neoplasm of unspecified part of unspecified bronchus or lung (HCC) 1 Occurrences starting 06/21/2023 until 07/20/2024 [facility] Work Phone: Comment on above: 1 Occurrences starting 06/21/2023 until 07/20/2024 CT Chest WO contrast CT CHEST WO IVCON Radiology Routine Malignant neoplasm of unspecified part of unspecified bronchus or lung (HCC) 12/18/2023 10:55 AM EDT [facility] Work Phone: End: 01-24-2025 CT Chest WO contrast CT CHEST WO IVCON Radiology Routine Malignant neoplasm of unspecified part of unspecified bronchus or lung (HCC) 1 Occurrences starting 12/26/2023 until 01/24/2025 [facility] Work Phone: Comment on above: 1 Occurrences starting 12/26/2023 until 01/24/2025 CT Chest WO contrast CT CHEST WO IVCON Radiology Routine Malignant neoplasm of unspecified part of unspecified bronchus or lung (HCC) 06/20/2024 10:09 AM [facility] Work Phone: CT Chest WO contrast CT CHEST WO IVCON Radiology Routine Malignant neoplasm of unspecified part of unspecified bronchus or lung (HCC) 01/03/2025 1:11 PM EDT [facility] Work Phone: End: 05-17-2025 DBT Breast - bilateral screening JERALD SCREENING W OBIE Radiology Routine Encounter for screening mammogram for breast cancer 1 Occurrences starting 04/17/2024 until 05/17/2025 [facility] Work Phone: Comment on above: 1 Occurrences starting 04/17/2024 until 05/17/2025 End: 05-17-2025 DXA Skeletal system.axial Views for bone density DXA-AXIAL SKELETON Radiology Routine 1 Occurrences starting 04/17/2024 until 05/17/2025 [facility] Comment on above: 1 Occurrences starting 04/17/2024 until 05/17/2025 DXA Skeletal system.axial Views for bone density DXA-AXIAL SKELETON Radiology Routine 06/13/2024 12:41 PM EST [facility] Work Phone: End: 10-12-2022 EGD DIAGNOSTIC EGD DIAGNOSTIC Endoscopy Routine Other iron deficiency anemia 1 Occurrences starting 10/12/2021 until 10/12/2022 [facility] Work Phone: Comment on above: 1 Occurrences starting 10/12/2021 until 10/12/2022 End: 10-18-2022 EGD DIAGNOSTIC EGD DIAGNOSTIC Endoscopy Routine Other iron deficiency anemia 1 Occurrences starting 10/18/2021 until 10/18/2022 [facility] Work Phone: Comment on above: 1 Occurrences starting 10/18/2021 until 10/18/2022 ENTERIC BACTERIAL PA VIKRAM BY PCR ENTERIC BACTERIAL PANEL BY PCR Lab Routine Diarrhea, unspecified type Ordered: 12/27/2022 [facility] Work Phone: Comment on above: Ordered: 12/27/2022 ENTERIC BACTERIAL PA VIKRAM BY PCR ENTERIC BACTERIAL PANEL BY PCR Lab Routine Diarrhea, unspecified type Ordered: 01/07/2023 [facility] Work Phone: Comment on above: Ordered: 01/07/2023 End: 11-29-2022 Gi imag intraluminal esophagus-ileum w/i&r CAPSULE ENDOSCOPY SMALL BOWEL Endoscopy Routine Gastrointestinal hemorrhage, unspecified gastrointestinal hemorrhage type Intussusception (HCC) 1 Occurrences starting 11/29/2021 until 11/29/2022 [facility] Work Phone: Comment on above: 1 Occurrences starting 11/29/2021 until 11/29/2022 Lipid 1996 panel - Serum or Plasma [facility] End: 07-28-2025 LUNG DIFFUSION CAPACITY (DLCO) LUNG DIFFUSION CAPACITY (DLCO) PFT Routine Moderate COPD (chronic obstructive pulmonary disease) (HCC) 1 Occurrences starting 06/28/2024 until 07/28/2025 [facility] Comment on above: 1 Occurrences starting 06/28/2024 until 07/28/2025 LUNG DIFFUSION CAPAC ITY (DLCO) LUNG DIFFUSION CAPACITY (DLCO) PFT Routine Moderate COPD (chronic obstructive pulmonary disease) (HCC) 08/07/2024 9:36 AM EDT [facility] Work Phone: End: 07-28-2025 LUNG VOLUMES LUNG VOLUMES PFT Routine Moderate COPD (chronic obstructive pulmonary disease) (HCC) 1 Occurrences starting 06/28/2024 until 07/28/2025 [facility] Comment on above: 1 Occurrences starting 06/28/2024 until 07/28/2025 LUNG VOLUMES LUNG VOLUMES PFT Routine Moderate COPD (chronic obstructive pulmonary disease) (HCC) 08/07/2024 9:36 AM EDT [facility] Work Phone: Ova and parasites identified in Unspecified specimen by Light microscopy OVA + PARA MICROSCOPIC Microbiology Routine Diarrhea, unspecified type Ordered: 12/27/2022 [facility] Work Phone: Comment on above: Ordered: 12/27/2022 Ova and parasites identified in Unspecified specimen by Light microscopy OVA + PARA MICROSCOPIC Microbiology Routine Diarrhea, unspecified type Ordered: 01/07/2023 [facility] Work Phone: Comment on above: Ordered: 01/07/2023 OXIMETRY - NOCTURNAL OXIMETRY - NOCTURNAL Procedures Routine Centrilobular emphysema (HCC) Ordered: 09/10/2021 [facility] Work Phone: Comment on above: Ordered: 09/10/2021 OXIMETRY - NOCTURNAL OXIMETRY - NOCTURNAL Procedures Routine Malignant neoplasm of right lung, unspecified part of lung (HCC) Moderate COPD (chronic obstructive pulmonary disease) (HCC) Ordered: 09/12/2022 [facility] Work Phone: Comment on above: Ordered: 09/12/2022 Patient Education ED Shoulder Pa in, Uncertain Cause [facility] Work Phone: Patient referral [facility] Work Phone: End: 04-20-2023 Radiologic exam chest 2 views XR CHEST 2V FRONTAL/LAT Radiology Routine NSCLC of right lung (HCC) 1 Occurrences starting 03/21/2022 until 04/20/2023 [facility] Work Phone: Comment on above: 1 Occurrences starting 03/21/2022 until 04/20/2023 End: 07-28-2025 SPIROMETRY WITH DILATOR IF OBSTRUCTED SPIROMETRY WITH DILATOR IF OBSTRUCTED PFT Routine Moderate COPD (chronic obstructive pulmonary disease) ([facility]) 1 Occurrences starting 06/28/2024 until 07/28/2025 [facility] Work Phone: Comment on above: 1 Occurrences starting 06/28/2024 until 07/28/2025 SPIROMETRY WITH DILA TOR IF OBSTRUCTED SPIROMETRY WITH DILATOR IF OBSTRUCTED PFT Routine Moderate COPD (chronic obstructive pulmonary disease) ([facility]) 08/07/2024 9:36 AM EDT [facility] Work Phone: SURGICAL PATHOLOGY [facility] Work Phone: Comment on above: Release Upon Ordering for 1 Occurrences starting 11/17/2021, 1 completed UA DIP, URINE (POC) UA DIP, URIN E (POC) Lab Routine Dysuria Ordered: 01/20/2024 [facility] Work Phone: Comment on above: Ordered: 01/20/2024 End: 07-26-2025 XR Chest PA and Lateral XR CHEST 2V FRONTAL/LAT Radiology Routine Bacterial pneumonia 1 Occurrences starting 06/26/2024 until 07/26/2025 [facility] Work Phone: Comment on above: 1 Occurrences starting 06/26/2024 until 07/26/2025 [facility]; [facility] [...] Internal Medicine; [facility] Work Phone: [facility] Immunizations Immunization Date Immunization Notes Care Provider [facility] 01-07-2024 influenza, high dose seasonal, preservative-free Dennis Marcial MD Work Phone: [facility] 01-07-2024 influenza virus vaccine, unspecified formulation Dennis Marcial MD Work Phone: [facility] 05-11-2023 respiratory syncytia l virus (RSV) vaccine, adjuvanted (AREXVY) Shane Steward MD Work Phone: [facility] Work Phone: 03-29-2023 influenza (aIIV4) vaccine, age 65+ yr, quadrivalent, PF (FLUAD QUAD) Shane Steward MD Work Phone: [facility] Work Phone: 03-29-2023 influenza virus vaccine, unspecified formulation Tima López APRN.[employer]ITY [employer] Work Phone: [facility] 08-09-2022 zoster vaccine recombinant Dennis Marcial MD Work Phone: [facility] 05-14-2022 pneumococcal (PCV20) vaccine, 20 valent (PREVNAR 20) Dennis Marcial MD Work Phone: [facility] 05-14-2022 zoster vaccine recombinant Dennis Marcial MD Work Phone: [facility] 02-09-2022 influenza, high-dose , quadrivalent vaccine (FLUZONE HIGH DOSE QUADRIVALENT) Oscar Mireles MD Work Phone: [facility] 02-09-2022 influenza virus vaccine, unspecified formulation Dennis Marcial MD Work Phone: [facility] 03-22-2021 influenza nasal, unspecified formulation Dennis Marcial MD Work Phone: [facility] 03-08-2021 COVID-19 vaccine, ag e 12+ yr (PFIZER-BIONTECH - PURPLE TOP) Oscar Mireles MD Work Phone: [facility] 03-08-2021 pneumococcal conjuga te vaccine, 13 valent Oscar Mireles MD Work Phone: [facility] 02-10-2021 influenza (aIIV4) vaccine, age 65+ yr, quadrivalent, PF (FLUAD QUADRIVALENT) Dennis Marcial MD Work Phone: [facility] 08-16-2020 COVID-19 vaccine, ag e 12+ yr (PFIZER-BIONTECH - PURPLE TOP) Oscar Mireles MD Work Phone: [facility] 07-26-2020 COVID-19 vaccine, ag e 12+ yr (PFIZER-BIONTECH - PURPLE TOP) Oscar Mireles MD Work Phone: [facility] 02-20-2020 influenza, injectabl e, quadrivalent, preservative free [facility] 02-20-2020 influenza, seasonal, injectable Dr. Dennis Marcial Work Phone: [facility] 02-07-2020 Seasonal, quadrivalent, recombinant, injectable influenza vaccine, preservative free Dennsi Marcial MD Work Phone: [facility] 02-14-2019 Influenza, injectabl e, Madin [place] Canine Kidney, preservative free, quadrivalent Dennis Marcial MD Work Phone: [facility] 02-14-2018 influenza nasal, unspecified formulation Dennis Marcial MD Work Phone: [facility] 02-11-2018 influenza, injectabl e, quadrivalent, preservative free Dennis Marcial MD Work Phone: [facility] Payers Date Payer Category Payer Self-pay [id number] 2021 Medicare [id number] 2021 Private Health Insurance [facility] AARP SUPPLEMENT [id number] 2021-Present [phone] [address] [place] [address] Indemnity [id number] 2021 Private Health Insurance [id number] 2021 Unknown [id number] 2021 Medicare [id number] 2020 Medicare [id number] 2015 Unknown [id number] Unknown [facility] Unknown [id number] Unknown [id number] Unknown [id number] Unknown [id number] Unknown [id number] Unknown [id number] Unknown [id number] Unknown [id number] Unknown [id number] Social History Date Type Detail Facility Start: 03-24-2020 End: 01-20-2024 Tobacco smoking status COIS Ex-smoker [facility] Work Phone: Start: 03-24-1970 End: 03-24-2000 History of tobacco use Current smoker [facility] Work Phone: Start: 03-24-1970 End: 03-24-2000 History of tobacco use Cigarette Smoker [facility] Work Phone: Start: 09-10-2021 End: 10-28-2024 Alcohol intake Current non-drinker of alcohol (finding) [facility] Start: 1955 Sex Assigned At Female [facility] Start: 08-31-2021 End: 02-09-2022 Exposure to SARS-CoV-2 (event) Not sure [facility] Work Phone: Start: 03-24-2020 End: 09-12-2022 Alcohol Use Alcohol Use [facility]; [facility] Work Phone: Comment on above: Occasional alcohol u se 4 Glasses per day Full-time, [employer] In[employer] , Lives with spouse 1 pack for 30 years, Recently quit tobacco use Tobacco use: Tobacco use: [facility]; [facility] Work Phone: Start: 07-09-2021 End: 11-11-2022 Tobacco smoking status NHIS Unknown if ever smoked [facility] Start: 05-26-2020 None [facility] Start: 09-14-2020 Non-smoker [facility] Start: 10-12-2021 End: 10-22-2021 Exposure to SARS-CoV-2 (event) Yes [facility] Start: 03-24-2020 End: 01-20-2024 Tobacco use and exposure Smokeless tobacco non-user [facility] Start: 02-02-2022 History SDOH Alcohol Frequency 1 [facility] Start: 02-02-2022 History SDOH Alcohol Std Drinks 0 [facility] Start: 02-02-2022 History SDOH Social Connections Phone 2 [facility] Start: 02-02-2022 History SDOH Social Connections Living 3 [facility] Start: 02-02-2022 History SDOH Financial 5 [facility] Start: 02-02-2022 End: 09-12-2022 Social connection and isolation panel [facility] Do you belong to any clubs or organizations such as synagogue groups, unions, fraternal or athletic groups, or school groups? No [facility] Are you now , , , , never or living with a partner? [facility] How often to you hav e a drink containing alcohol? Never [facility] Start: 04-08-2012 How many standard drinks containing alcohol do you have on a typical day? Patient does not drink [facility] Do you feel stress - tense, restless, nervous, or anxious, or unable to sleep at night because your mind is troubled all the time - these days [OSQ] Only a little [facility] (I/We) worried colin er (my/our) food would run out before (I/we) got money to buy more. Never true [facility] Start: 03-30-2020 Gender identity Identifies as female gender (finding) [facility] Start: 03-30-2020 Sexual orientation Heterosexual (fin ding) [facility] Start: 07-31-2024 Sex Female (finding) [facility] Functional Status Date Assessment Result Facility 10-28-2024 Total score [AUDIT-C] 0 10/29/19 3:29 PM EDT Ana Julian LPN [facility] 06-27-2020 Are you deaf, or do you have serious difficulty hearing No 06/27/2020 1:34 PM Bentley Rodríguez RN No [facility] 06-27-2020 Are you blind, or do you have serious difficulty seeing, even when wearing glasses No 06/27/2020 1:34 PM Bentley Rodríguez RN No [facility] 06-27-2020 Do you have serious difficulty walking or climbing stairs No 06/27/2020 1:34 PM Bentley Rodríguez RN No [facility] 06-27-2020 Do you have difficul ty dressing or bathing No 06/27/2020 1:34 PM Bentley Rodríguez, VANDANA No [facility] 06-27-2020 Because of a physica l, mental, or emotional condition, do you have difficulty doing errands alone such as visiting a physician's office or shopping No 06/27/2020 1:34 PM Bentley Rodríguez RN No [facility] Mental Status Date Assessment Result Facility 06-27-2020 Because of a physica l, mental, or emotional condition, do you have serious difficulty concentrating, remembering, or making decisions No 06/27/2020 1:34 PM Bentley Rodríguez RN No [facility] Clinical Notes 08-21-2020 to 12-31-2024 Telephone Encounter - Ana Julian LPN - 12/31/2024 10:12 AM EDTTelephone Encounter - Ana Julian LPN - 12/31/2024 10:12 AM EDTPatient InstructionsPatient InstructionsPatient Instructions Note Date & Type Note Facility 12-31-2024 Telephone encounter Note Patient called requesting the following refill. Requested Prescriptions Pending Prescriptions Disp Refills traMADol (ULTRAM) 50 mg tablet 90 tablet 0 Sig: Take 1 tablet by mouth every 6 hours as needed for pain for up to 30 days. Patient last appointment: 10/28/2024 Next appointment not scheduled yet Patient Phone numbers: [phone] (home) Request is for script(s) to be escript to [facility] pharmacy. Ana Julian LPN [facility] 12-31-2024 Miscellaneous Notes Patient called requesting the following refill. Requested Prescriptions Pending Prescriptions Disp Refills traMADol (ULTRAM) 50 mg tablet 90 tablet 0 Sig: Take 1 tablet by mouth every 6 hours as needed for pain for up to 30 days. Patient last appointment: 10/28/2024 Next appointment not scheduled yet Patient Phone numbers: [phone] (home) Request is for script(s) to be escript to [facility] pharmacy. Ana Julian LPN documented in this encounter [facility] 11-15-2024 Telephone encounter Note Last Office Visit: 10/28/24 Next visit: none Requested Prescriptions Pending Prescriptions Disp Refills simvastatin (ZOCOR) 20 mg tablet [Pharmacy Med Name: SIMVASTATIN TABS 20MG] 90 tablet 3 Sig: TAKE 1 TABLET DAILY AT BEDTIME Stephane Ibrahim LPN November 15, 2024 7:41 AM [facility] 11-15-2024 Miscellaneous Notes Last Office Visit: 10/28/24 Next visit: none Requested Prescriptions Pending Prescriptions Disp Refills simvastatin (ZOCOR) 20 mg tablet [Pharmacy Med Name: SIMVASTATIN TABS 20MG] 90 tablet 3 Sig: TAKE 1 TABLET DAILY AT BEDTIME Stephane Ibrahim LPN November 15, 2024 7:41 AM documented in this encounter [facility] 10-29-2024 Instructions Dennis Marcial MD - 10/29/2024 11:44 AM EDT Screening schedule The following prevention plan is recommended: Cervical Cancer Screening Never done DTaP,Tdap,Td Vaccine(1 - Tdap) Never done Advance Directive Discussion due on 05/08/2024 Covid-19 Vaccine(7 - Pfizer risk season) due on 07/06/2024 WHAT YOU CAN DO TO PREVENT FALLS [...] review all the medicines you take, even trhe-eiv-[id number] medicines. As you get older, the way [...] certain medical conditions. documented in this encounter [facility] 10-29-2024 Note HNO ID: [id number] Author: DENNIS MARCIAL MD Service: ? Author Type: Physician Type: Progress Notes Filed: 10/29/2024 11:44 Note Text: Sherry Serrano is a 68-year-old female with a history of back pain, RLS, and osteoporosis, presenting for an annual Medicarewellness visit and medication refills. Annual Wellness Exam: - Recent mammogram in June. - Recent bone density scan; no results received yet. - History of skin cancer removal from the face. - Up to date on flu and pneumonia vaccines. - Has had COVID-19. Back Pain: - Chronic back pain, taking tramadol 2-3 times daily for relief. - Reports a lot of discomfort in the back and hips. Restless Leg Syndrome: - Currently taking ropinirole at night. - Experiencing jumpy legs during the day, especially on long car rides and in the evening when sitting down. - Inquires about taking medication during the day for symptom relief. Osteoporosis: - Taking Fosamax once weekly. Review of Systems GENERAL: No weight loss, malaise, or fevers. HEENT: Positive for bilateral ear pain and sinus congestion. Negative for frequent or significant headaches; no changes in vision or hearing; no nosebleeds or other nasal problems. NECK: Negative for lumps, goiter, pain, and significant neck swelling. RESPIRATORY: Negative for cough, dyspnea, or shortness of breath. CARDIOVASCULAR: Negative for chest pain, leg swelling, CHF, or palpitations. GI: No nausea, vomiting, diarrhea, heartburn, abdominal pain, blood in stool, or black stool. GENITOURINARY: No history of dysuria, frequency, or incontinence. MUSCULOSKELETAL: Positive for back pain and hip pain. Negative for other joint pain or swelling, or muscle pain. SKIN: Negative for lesions, rash, and itching. PSYCH: Negative for anxiety or depression. HEMATOLOGY/LYMPHOLOGY: No bleeding concerns. NEURO: Positive for restless leg symptoms. Negative for headaches, syncope, paralysis, seizures, or tremors. ENDOCRINE: No history of polydipsia, increased thirst, or other endocrine symptoms. PAST SURGICAL HISTORY Procedure Laterality Date BACK [...] date: 03/24/1970 Quit date: 03/24/2000 Years since quittin.6 Smokeless tobacco: Never Vaping Use Vaping status: Never Used Substance Use Topics Alcohol use: No Drug use: Never ALLERGIES No Known Allergies MEDICATIONS: calcium carbonate (OS-TESSY 500) 500 mg calcium (1,250 mg) tablet Take 1 tablet by mouth once daily. leflunomide (ARAVA) 10 mg tablet Take 0.5 tablets by mouth once daily. sertraline (ZOLOFT) 100 mg tablet Take 1 tablet by mouth once daily. MYRBETRIQ 50 mg Tb24 Take 50 mg [...] (ANORO ELLIPTA) 62.5-25 mcg/actuation inhaler Inhale 1 Inhal (more content not included)... [facility] 10-29-2024 History of Present illness Narrative Images from the original note were not included. Sherry Serrano is a 68-year-old female with a history of back pain, RLS, and osteoporosis, presenting for an annual Medicarewellness visit and medication refills. Annual Wellness Exam: - Recent mammogram in June. - Recent bone density scan; no results received yet. - History of skin cancer removal from the face. - Up to date on flu and pneumonia vaccines. - Has had COVID-19. Back Pain: - Chronic back pain, taking tramadol 2-3 times daily for relief. - Reports a lot of discomfort in the back and hips. Restless Leg Syndrome: - Currently taking ropinirole at night. - Experiencing jumpy legs during the day, especially on long car rides and in the evening when sitting down. - Inquires about taking medication during the day for symptom relief. Osteoporosis: - Taking Fosamax once weekly. Review of Systems GENERAL: No weight loss, malaise, or fevers. HEENT: Positive for bilateral ear pain and sinus congestion. Negative for frequent or significant headaches; no changes in vision or hearing; no nosebleeds or other nasal problems. NECK: Negative for lumps, goiter, pain, and significant neck swelling. RESPIRATORY: Negative for cough, dyspnea, or shortness of breath. CARDIOVASCULAR: Negative for chest pain, leg swelling, CHF, or palpitations. GI: No nausea, vomiting, diarrhea, heartburn, abdominal pain, blood in stool, or black stool. GENITOURINARY: No history of dysuria, frequency, or incontinence. MUSCULOSKELETAL: Positive for back pain and hip pain. Negative for other joint pain or swelling, or muscle pain. SKIN: Negative for lesions, rash, and itching. PSYCH: Negative for anxiety or depression. HEMATOLOGY/LYMPHOLOGY: No bleeding concerns. NEURO: Positive for restless leg symptoms. Negative for headaches, syncope, paralysis, seizures, or tremors. ENDOCRINE: No history of polydipsia, increased thirst, or other endocrine symptoms. PAST SURGICAL HISTORY Procedure Laterality Date BACK [...] date: 03/24/1970 Quit date: 03/24/2000 Years since quittin.6 Smokeless tobacco: Never Vaping Use Vaping status: Never Used Substance Use Topics Alcohol use: No Drug use: Never ALLERGIES No Known Allergies MEDICATIONS: calcium carbonate (OS-TESSY 500) 500 mg calcium (1,250 mg) tablet Take 1 tablet by mouth once daily. leflunomide (ARAVA) 10 mg tablet Take 0.5 tablets by mouth once daily. sertraline (ZOLOFT) 100 mg tablet Take 1 tablet by mouth once daily. MYRBETRIQ 50 mg Tb24 Take 50 mg [...] for pain for up to 90 days. gabapentin (NEURONTIN) 300 mg capsule Take 1 capsule by mouth two times a day for 180 days. Allergies, past surgical history, family history and past medical history were reviewed per this encounter. Medications were reviewed and verified. 10/08/2024 10/28/2024 INTAKE PAIN ASSESSMENT Are you having pain associated with your visit today? No No If pain assessment is 0, no action needed. If pain assessment is positive, please see assessment and plain. Objective Labs: Tests: Imaging: - (June) Mammogram: No results discussed - Bone density: Findings consistent with osteoporosis BP 124/74 (BP Site: Left Arm, BP Position: Sitting, BP Cuff Size: Regular Adult) Pulse 97 Temp 36.4 C (97.5 F) (Temporal) Resp 16 Ht 163.8 cm (5' 4.5) Wt 88.9 kg (196 lb) SpO2 96% BMI 33.12 kg/m Physical Exam GENERAL: NAD, alert and oriented. SKIN: Unremarkable, no rash or skin lesions. HEAD: Normocephalic. EYES: PERRLA, EOMI, conjunctiva clear. EARS: External ears normal, canals clear, TM's normal. NOSE/SINUSES: Nares normal. Septum midline. OROPHARYNX: Lips, mucosa, and tongue normal, good dentition. No oral lesions noted. NECK: Supple, no lymphadenopathy, normal thyroid, no carotid bruits. LUNGS: Clear to auscultation bilaterally, no wheezes/rhonchi/rales. HEART: Regular rate and rhythm, no murmurs. No ectopy. EXTREMITIES: Normal, no deformities, no skin discoloration, no edema. NEURO: Awake, alert and oriented x3, cranial nerves II-XII grossly intact, normal gait, no involuntary motions. Procedures Assessment and Plan 1. Wellness examination (Z00.00) - Completed Medicare wellness examination. - Discussed recent mammogram performed in June; next due in June next year. - No new skin lesions observed; patient has a history of skin cancer removals. - Recommended continuation of Fosamax (alendronate) for osteoporosis; instructed to take on an empty stomach with a full glass of water and remain upright for one hour post-administration. - Advised patient to obtain Tdap vaccine at the pharmacy. 2. Primary cancer of right lower lobe of lung (HCC) (C34.31) - stable. Followed by oncology. 3. Pure hypercholesterolemia, unspecified (E78.00) - Ordered lipid panel. 4. Encounter for immunization (Z23) 5. Primary insomnia (F51.01) - Improved on current medication. 6. Restless leg syndrome (G25.81) - Symptoms now occurring during the day. - Discontinued ropinirole. - Initiated gabapentin, one capsule at night and one during the day as needed. - Prescription sent to [facility] pharmacy. 7. Paroxysmal atrial fibrillation (HCC) (I48.0) - Stable 8. Hypertension, essential (I10) - 9. Stage 3b chronic kidney disease (HCC) (N18.32) 10. 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 - Continue tramadol, taken 2-3 times daily as needed. 11. Sinus congestion (R09.81) Medicare Health Risk Assessment General Health Fair Exercise: Minutes/Day 0 min Exercise: Days/Week 0 days Alcohol: Daily Use Never Alcohol: Drinks/Day Patient does not drink Alcohol: 6 or more drinks Never Feel off balance Yes (sometimes when walking on grass) Concerns: Teeth/Dentures No Concerns: Sexual function No Troubled by feelings None of the above Frequency: Eating healthy diet More than half the days ADLs requiring help Housework Safety precautions in home/vehicle Yes Smoke, vape, chews tobacco No Difficulty hearing No Difficulty seeing No Current Providers Specialists: I have reviewed specialist-related care of the patient in the medical record. Medical/Family history review Reviewed and updated problem list, medical/surgical/family/social history, medications, and allergies. Opioid use review Opioid Medications (last 90 days) 09/06/2024 23:59 09/08/2024 00:00 Opioid Medications tramadol HCl 50 mg q 6 H PRN PO -Discontinued tramadol HCl 50 mg q 6 H PRN PO Details Outpatient prescription Prescribed tramadol HCl (last 90 days) Does patient have risk factors for opioid abuse? No Pain overview Current pain concerns and treatment plan reviewed. Patient not currently experiencing pain. Anxiety/Depression screening Recommendation: no further intervention at this time Cognitive screening Mini Cog Score: 5 Cognitive screening reviewed and No further action needed (score 3-5). Functional Observation Was the patient's Timed Up & Go test unsteady or >= 12 seconds? No Advance Care Planning Patient did not wish or was not able to name a surrogate decision maker or provide an advance care plan Measurements BP 124/74 (BP Site: Left Arm, BP Position: Sitting, BP Cuff Size: Regular Adult) Pulse 97 Temp 36.4 C (97.5 F) (Temporal) Resp 16 Ht 163.8 cm (5' 4.5) Wt 88.9 kg (196 lb) SpO2 96% BMI 33.12 kg/m Vision Screening: Follows with optometry/ophthalmology Assessment/Plan Medicare annual wellness visit, subsequent (Z00.00) - Counseled on healthy diet and regular exercise - Fall avoidance information provided Tierra is here today for her annual Medicare wellness exam Cervical Cancer Screening Never done DTaP,Tdap,Td Vaccine(1 - Tdap) Never done Advance Directive Discussion due on 05/08/2024 NOT DONE Covid-19 Vaccine(7 - Pfizer risk season) due on 07/06/2024 Patient will discuss vaccines with Dr Marcial Patient is having restless legs during the day as well as at night The Ropinirole has not been helping very much Tramadol refill is needed Ana Julian LPN October 28, 2024 3:39 PM documented in this encounter [facility] 10-28-2024 Note HNO ID: [id number] Author: ANA JULIAN LPN Service: ? Author Type: LICENSED NURSE Type: Progress Notes Filed: 10/29/2024 11:44 Note Text: Tierra is here today for her annual Medicare wellness exam Cervical Cancer Screening Never done DTaP,Tdap,Td Vaccine(1 - Tdap) Never done Advance Directive Discussion due on 05/08/2024 NOT DONE Covid-19 Vaccine(7 - Pfizer risk season) due on 07/06/2024 Patient will discuss vaccines with Dr Marcial Patient is having restless legs during the day as well as at night The Ropinirole has not been helping very much Tramadol refill is needed Ana Julian LPN October 28, 2024 3:39 PM [facility] 10-08-2024 Instructions Ronald Garrido APRN.AMAIRANI - 10/08/2024 10:57 AM EDT We discussed your persistent cough: - Your cough has been ongoing since June after your pneumonia. It may be related to your COPD or be related to bronchiectasis. - I recommend trying Mucinex (regular formulation, not DM or other variations) to help thin mucus. You can purchase this over the counter. - Drink hot liquids to help loosen mucus and make it easier to clear. - Consider using a flutter valve device to help break up mucus in your lungs. You can purchase this online (e.g., [employer] OGK-5) or at a medical supply store. - If your symptoms do not improve or worsen, please contact me. We can consider adjusting your inhaler to include an inhaled steroid if needed. We discussed follow-up: - Your next routine follow-up is scheduled for 6 months from now. If your cough persists or worsens before then, please send me a message or call the office to schedule an earlier visit. We can reassess and consider further treatment options if necessary. Please let me know if you have any questions or concerns. documented in this encounter [facility] 10-08-2024 History of Present illness Narrative Images from the original note were not included. Pulmonary Medicine Patients name: Katrina Henson PCP: Dennis Marcial MD Recording using ambient Picatcha software for draft documentation of the visit was discussed with the patient/authorized physician representative; all questions welcomed and answered. Patient/authorized physician representative agreed to proceed CC: cough HPI: Katrina Serrano is a 68 year old female former [id number] smoker, quitting in 1999 with PMH significant [...] capacity (corrected for hemoglobin) is reduced. CXR: Last XR Chest - Impression Only XR CHEST 2V FRONTAL/LAT Exam End: 07/05/2024 11:05 AM (Final result) Impression: IMPRESSION: Stable chest. No developing abnormality ... CT Chest: 06/2024 Lung parenchyma and airways: Status post right [...] visualized in the lingula, presumably representing atelectasis. Review of Systems Constitutional: Negative for activity change, appetite change, fever and unexpected weight change. HENT: Positive for postnasal drip. Negative for congestion, mouth sores and sinus pain. Respiratory: Positive for cough. Negative for chest tightness, shortness of breath and wheezing. Cardiovascular: Negative for chest pain, palpitations and leg swelling. Allergic/Immunologic: Negative for environmental allergies. Neurological: Negative for dizziness, weakness and light-headedness. BP 100/64 Pulse 76 Wt 89.8 kg (198 lb) SpO2 96% BMI 33.43 kg/m Physical Exam Vitals reviewed. Constitutional: General: She is not in acute distress. Appearance: Normal appearance. She is not ill-appearing. HENT: Head: Normocephalic. Mouth/Throat: Mouth: Mucous membranes are moist. Pharynx: No oropharyngeal exudate or posterior oropharyngeal erythema. Cardiovascular: Rate and Rhythm: Normal rate and [...] Mental Status: She is alert. ASSESSMENT/PLAN: 1. Productive cough - ICD9: 786.2, ICD10: R05.8 (primary diagnosis) - persistent since 07/02 with PNA. Currently minimally productive with yellow sputum. - normal exam. - discussed options. She will trial Mucinex and possible flutter valve for known bronchiectasis. 2. Moderate COPD (chronic obstructive pulmonary disease) (HCC) - ICD9: 496, ICD10: J44.9 - Continue Anoro - discussed increasing therapy if cough persists. Currently had 4 Anoro inhalers at home. Could consider adding ICS only inhaler if needed. - continue Albuterol as needed. 3. Bronchiectasis without complication (HCC) - ICD9: 494.0, ICD10: J47.9 - see #1 F/u 6 months Portions of this documentation were copied and pasted from previous office visit notes in order to provide a cohesive continuity of the history. The note has been reviewed and edited and updated as necessary. Ronald Garrido APRN.CNP I spent a total of 23 minutes on the date of the service which included preparing to see the patient, bufo-[id number]-lbll patient care, completing clinical documentation, performing a medically appropriate examination, counseling and educating the patient/family/caregiver, and ordering medications, tests, or procedures. documented in this encounter [facility] 10-08-2024 Note HNO ID: [id number] Author: RONALD GARRIDO APRN.CNP Service: ? Author Type: Nurse Practitioner Type: Progress Notes Filed: 10/08/2024 14:55 Note Text: Pulmonary Medicine Patients name: Katrina Henson PCP: Dennis Marcial MD Recording using ambient Picatcha software for draft documentation of the visit was discussed with the patient/authorized physician representative; all questions welcomed and answered. Patient/authorized physician representative agreed to proceed CC: cough HPI: Katrina Serrano is a 68 year old female former [id number] smoker, quitting in 1999 with PMH significant [...] is reduced. CXR: (more content not included)... [facility] 09-06-2024 Telephone encounter Note Last Office Visit: 07-17-2024 Next Scheduled Office Visit: 10-21-2024 Requested Prescriptions Pending Prescriptions Disp Refills traMADol (ULTRAM) 50 mg tablet 90 tablet 0 Sig: Take 1 tablet by mouth every 6 hours as needed for pain for up to 90 days. Elvira Mcintosh LPN September 06, 2024 11:17 AM [facility] 09-06-2024 Miscellaneous Notes Last Office Visit: 07-17-2024 Next Scheduled Office Visit: 10-21-2024 Requested Prescriptions Pending Prescriptions Disp Refills traMADol (ULTRAM) 50 mg tablet 90 tablet 0 Sig: Take 1 tablet by mouth every 6 hours as needed for pain for up to 90 days. Elvira Mcintosh LPN September 06, 2024 11:17 AM documented in this encounter [facility] 08-07-2024 History of Present illness Narrative Images from the original note were not included. Pulmonary Medicine Patients name: Katrina Henson PCP: Dennis Marcial MD CC: follow-up COPD HPI: Katrina Serrano is a 68 year old female former [id number]-[id number] smoker, quitting in 1999 with PMH significant [...] She presents today for testing and follow-up. [facility] 06/28/[address] suggesting Pneumonia. Was treated by her PCP with Augmentin and Doxycycline with the doxycycline coarse extended at her [facility]. Follow-up chest xray with no new [...] Stable right paratracheal lymphadenopathy versus fluid collection. Hair Cutter: LISA Transcribe Date/Time: Jun 27 2024 8:54A Dictated by : KEYLA SOLIS MD This examination was interpreted and the report reviewed and electronically signed by: KEYLA SOLIS MD on Jun 28 2024 1:54PM EST Results-Findings * * *Final Report* * * DATE OF EXAM: Jun 20 2024 10:09AM [facility] 0541 - CT CHEST WO IVCON [...] which included preparing to see the patient, [id number] patient care, completing clinical documentation, performing a medically appropriate examination, and counseling and educating the patient/family/caregiver. documented in this encounter [facility] 08-07-2024 Note HNO ID: [id number] Author: RONALD GARRIDO APRN.CNP Service: ? Author Type: Nurse Practitioner Type: Progress Notes Filed: 08/07/2024 12:32 Note Text: Pulmonary Medicine Patients name: Katrina Henson PCP: Dennis Marcial MD CC: follow-up COPD HPI: Katrina Serrano is a 68 year old female former 54-vypt-bdju smoker, quitting in 1999 with PMH significant [...] She presents today for testing and follow-up. [facility] 06/28/[address] suggesting Pneumonia. [...] lung. Interval deve (more content not included)... [facility] 07-17-2024 Note HNO ID: [id number] Author: DENNIS MARCIAL MD Service: ? Author [...] If pain asses (more content not included)... [facility] 07-17-2024 History of Present illness Narrative Subjective [...] 2024 3:26 PM documented in this encounter [facility] 07-17-2024 Note HNO ID: [id number] Author: ELVIRA MCINTOSH LPN Service: ? Author Type: LICENSED NURSE Type: Progress Notes Filed: 07/17/2024 16:51 Note Text: Patient is in office with complaint of sinus congestion and productive cough. Patient states that symptoms started about 3 days ago. Patient is experiencing cold chills and sweats as well. No refills needed Elvira Mcintosh LPN July 17, 2024 3:26 PM [facility] 07-10-2024 Note HNO ID: [id number] Author: KAEL NUNEZ APRN.[employer] Service: ? Author Type: Nurse Practitioner Type: Progress Notes Filed: 07/10/2024 17:40 Note Text: Patient triaged at [facility]. Here today with new bilat lower leg swelling. Denies cp/sob/leg pain. I will refer to pcp, will make appointment jonathan. Urgent f/u for worsening or severe s/s. [facility] 07-10-2024 History of Present illness Narrative Patient triaged at [facility]. Here today with new bilat lower leg swelling. Denies cp/sob/leg pain. I will refer to pcp, will make appointment jonathan. Urgent f/u for worsening or severe s/s. documented in this encounter [facility] 07-08-2024 Telephone encounter Note Message left for patient to phone office at earliest convenience in regards to results. Stephane Ibrahim LPN July 08, 2024 10:17 AM [facility] 07-08-2024 Telephone encounter Note ----- Message from Dennis Marcial MD sent at 07/07/2024 4:06 PM EST ----- Stable chest. No new abnormality [facility] 07-08-2024 Miscellaneous Notes Message left for patient to phone office at earliest convenience in regards to results. Stephane Ibrahim LPN July 08, 2024 10:17 AM ----- Message from Dennis Marcial MD sent at 07/07/2024 4:06 PM EST ----- Stable chest. No new abnormality documented in this encounter [facility] 07-05-2024 History of Present illness Narrative Radiology [...] PATIENT PRESENTS WITH AN IMPLANTABLE OR ATTACHED TRIMMER SORTER: No RADIOLOGY DEPARTMENT: General X-ray: Exam(s) Completed: Chest X-Ray PERIPHERAL IV DATA: Not applicable SIGNED BY: RT Stef(R) July 05, 2024 10:58 AM documented in this encounter [facility] 07-05-2024 Note HNO ID: [id number] Author: SONDRA RICHARDS RT(Henri) Service: ? Author Type: Communication Center Operator Type: Progress Notes Filed: 07/05/2024 11:05 Note [...] PATIENT PRESENTS WITH AN IMPLANTABLE OR ATTACHED TRIMMER SORTER: No RADIOLOGY DEPARTMENT: General X-ray: Exam(s) Completed: Chest X-Ray PERIPHERAL IV DATA: Not applicable SIGNED BY: RT Stef(R) July 05, 2024 10:58 AM [facility] 06-29-2024 Note HNO ID: [id number] Author: DENNIS MARCIAL MD Service: ? Author [...] 2 Puffs a (more content not included)... [facility] 06-29-2024 History of Present illness Narrative Subjective Katrina [...] EGD TRANSORAL BIOPSY SINGLE/MULTIPLE 06/16/2010 EGD W/O [facility] SPEC VARICIES INJ 11/17/2021 EXC NEUROMA HAND/FOOT [...] weeks. Follow-up as needed. She may continue ysfv-vrm-elnkcje cold medicines Dennis Marcial MD June 29, [...] 2024 4:03 PM documented in this encounter [facility] 06-28-2024 Instructions Ronald Garrido APRN.QUALITY ENGINEER MEDICAL DEVICE - 06/28/2024 10:59 AM EST Continue Anoro [...] undergoing lung function testing. Follow-up with your service trainer in regards to worsening shortness of breath as well. documented in this encounter [facility] 06-28-2024 History of Present illness Narrative Images from the original note were not included. Pulmonary Medicine Patients name: Katrina Henson PCP: Dennis Marcial MD CC: follow-up HPI: Katrina Serrano is a 68 year old female former 67-asku-muzz smoker, quitting in 1999 with PMH significant [...] Also has hx of Afib and sees [facility]. Does not recall when she was last seen or when her last echo was. She was seen by [facility] 06/20 with head cold symptoms x5 days. [...] Sharron 3L nocturnal O2 Modified Medical [employer] [place] Dyspnea Scale (MMRC) I stop for breath [...] new or suspicious pulmonary nodules. No lymphadenopathy. Hair Cutter: PSCB Transcribe Date/Time: Dec 21 2023 5:17P Dictated by : YEYO PENA MD This examination was interpreted and the report reviewed and electronically signed by: YEYO PENA MD on Dec 21 2023 5:20PM EST Results-Findings * * *Final Report* * * DATE OF EXAM: Dec 18 2023 10:55AM [facility] 0541 - CT CHEST WO IVCON [...] Neut (k/uL) Date Value 06/20/2024 4.35 Abs [place] (k/uL) Date Value 06/20/2024 0.46 04/07/2021 0.50 [...] Albuterol until follow-up with updated PFT - september benefit from triple therapy - SPIROMETRY WITH [...] Garrido APRN.CNP I spent a total of 31 minutes on the date of the service which included preparing to see the patient, etil-ti-ttkg patient care, completing clinical documentation, performing a medically appropriate examination, counseling and educating the patient/family/caregiver, and ordering medications, tests, or procedures. documented in this encounter [facility] 06-28-2024 Note HNO ID: [id number] Author: RONALD GARRIDO APRN.CNP Service: ? Author Type: Nurse Practitioner Type: Progress Notes Filed: 06/28/2024 17:20 Note Text: Pulmonary Medicine Patients name: Katrina Henson PCP: Dennis Marcial MD CC: follow-up HPI: Katrina Serrano is a 68 year old female former 22-ymfr-tugb smoker, quitting in 1999 with PMH significant [...] Also has hx of Afib and sees [facility]. Does not recall when she was last seen or when her last echo was. She was seen by [facility] 06/20 with head cold symptoms x5 days. [...] [employer] 3L nocturnal O2 Modified Medical Research [place] Dyspnea Scale (MMRC) I stop for breath [...] Last XR Ch (more content not included)... [facility] 06-27-2024 Note HNO ID: [id number] Author: ROYER FORD, ? Service: ? Author Type: Nurse Practitioner Type: Progress Notes Filed: 06/27/2024 12:15 Note Text: Katrina Serrano 1955 06/27/2024 HISTORY OF PRESENT ILLNESS: Katrina Serrano is a 67 year old female here for follow up. 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 IGRT with daily CBCTs. Concurrent chemotherapy with Cisplatin/Etoposide x 2 cycles ( 04/06/20 to 05/12/20 ) SURGICAL HX: 03/13/2020: Mediastinoscopy positive LN, PDL positive 100% 06/22/2020: Right thoracotomy, right middle lobectomy with mediastinal and hilar lymph node dissection, and vascularized pedicle tissue buttress of bronchial stump. [id number] Previous treatment: Durvalumab maintenance x 4 doses [...] 90 days. sertr (more content not included)... [facility] 06-27-2024 History of Present illness Narrative Katrina Serrano 1955 06/27/2024 HISTORY OF PRESENT ILLNESS: Katrina Serrano is a 67 year old female here for follow up. Per Dr Lambert: DIAGNOSIS: Lung cancer (cT1-2, N2M0) [id number]/ stage IIIA adenocarcinoma of the right middle [...] vascularized pedicle tissue buttress of bronchial stump. [id number] Previous treatment: Durvalumab maintenance x 4 doses [...] to correlate with current findings. Royer Ford APRN.QUALITY ENGINEER MEDICAL DEVICE I spent a total of 20 minutes on the date of the service which included preparing to see the patient, qnin-bd-heqw patient care, completing clinical documentation, obtaining and/or [...] of this patient. documented in this encounter [facility] 06-26-2024 Note HNO ID: [id number] Author: ELVIRA MCINTOSH LPN Service: ? Author [...] Mcintosh LPN June 26, 2024 4:03 PM [facility] 06-20-2024 Note HNO ID: [id number] Author: NEREIDA CISNEROS LPN Service: ? Author Type: LICENSED NURSE Type: Progress Notes Filed: 06/20/2024 14:12 Note Text: 2.5 solution aerosol treatment given per provider's orders. Prior to treatment O2 sat is 94%. Treatment completed. O2 sat is 94%. Tolerated well. Nereida Cisneros LPN [facility] 06-20-2024 History of Present illness Narrative 2.5 [...] Michael Babin MD documented in this encounter [facility] 06-20-2024 Note SARS-COV-2 (AGENT OF COVID-19) RNA: Not detected INFLUENZA A RNA: Not detected INFLUENZA B RNA: Not detected RESPIRATORY SYNCYTIAL VIRUS (RSV) RNA: Not detected [facility] Comment on above: Performed By: #### 9 [id number] ####[facility] LABCLIA [id number] [address] [place] 06-20-2024 History of Present illness Narrative Radiology [...] PATIENT PRESENTS WITH AN IMPLANTABLE OR ATTACHED TRIMMER SORTER: No RADIOLOGY DEPARTMENT: General X-ray: Exam(s) Completed: Chest X-Ray PERIPHERAL IV DATA: Not applicable SIGNED BY: ESTEPHANIA Finch) June 20, 2024 12:20 PM documented in this encounter [facility] 06-20-2024 Note HNO ID: [id number] Author: SONDRA RICHARDS RT(R) Service: ? Author Type: Communication Center Operator Type: Progress Notes Filed: 06/20/2024 12:26 Note [...] PATIENT PRESENTS WITH AN IMPLANTABLE OR ATTACHED TRIMMER SORTER: No RADIOLOGY DEPARTMENT: General X-ray: Exam(s) Completed: Chest X-Ray PERIPHERAL IV DATA: Not applicable SIGNED BY: Sondra Richards RT(R) June 20, 2024 12:20 PM [facility] 06-20-2024 Note HNO ID: [id number] Author: MICHAEL BABIN MD Service: ? Author [...] with PCP next week. Michael Babin MD [facility] 06-20-2024 History of Present illness Narrative Radiology [...] PATIENT PRESENTS WITH AN IMPLANTABLE OR ATTACHED TRIMMER SORTER: No RADIOLOGY DEPARTMENT: CT; Exam(s) Completed: Chest PERIPHERAL IV DATA: Not applicable SIGNED BY: RT Mili(Henri) June 20, 2024 12:45 PM documented in this encounter [facility] 06-20-2024 Note HNO ID: [id number] Author: OLY MALONE RT(Henri) Service: ? Author Type: Communication Center Operator Type: Progress Notes Filed: 06/20/2024 12:46 Note [...] PATIENT PRESENTS WITH AN IMPLANTABLE OR ATTACHED TRIMMER SORTER: No RADIOLOGY DEPARTMENT: CT; Exam(s) Completed: Chest PERIPHERAL IV DATA: Not applicable SIGNED BY: RT Mili(R) June 20, 2024 12:45 PM [facility] 06-17-2024 Telephone encounter Note Patient notified of information, verbalized understanding. No questions, comments, or concerns at this time. Stephane Ibrahim LPN June 17, 2024 8:40 AM [facility] 06-17-2024 Telephone encounter Note ----- Message from Dennis Marcial MD sent at 06/17/2024 8:20 AM EST ----- Osteoporosis. Continue fosamax.. [facility] 06-17-2024 Miscellaneous Notes Patient notified of information, verbalized understanding. No questions, comments, or concerns at this time. Stephane Ibrahim LPN June 17, 2024 8:40 AM ----- Message from Dennis Marcial MD sent at 06/17/2024 8:20 AM EST ----- Osteoporosis. Continue fosamax.. documented in this encounter [facility] 06-13-2024 Telephone encounter Note Patient called requesting the following refill. Requested Prescriptions Pending Prescriptions Disp Refills traMADol (ULTRAM) 50 mg tablet 90 tablet 0 Sig: Take 1 tablet by mouth every 6 hours as needed for pain for up to 90 days. Patient last appointment: 04/17/2024 Next appointment 10/21/2024 Patient Phone numbers: [phone] (home) Request is for script(s) to be escript to mail order [facility]. Ana Julian LPN [facility] 06-13-2024 Miscellaneous Notes Patient called requesting the following refill. Requested Prescriptions Pending Prescriptions Disp Refills traMADol (ULTRAM) 50 mg tablet 90 tablet 0 Sig: Take 1 tablet by mouth every 6 hours as needed for pain for up to 90 days. Patient last appointment: 04/17/2024 Next appointment 10/21/2024 Patient Phone numbers: [phone] (home) Request is for script(s) to be escript to mail order [facility]. Ana Julian LPN documented in this encounter [facility] 06-13-2024 History of Present illness Narrative Radiology [...] PATIENT PRESENTS WITH AN IMPLANTABLE OR ATTACHED TRIMMER SORTER: No RADIOLOGY DEPARTMENT: Mammography PERIPHERAL IV DATA: Not applicable SIGNED BY: Trent Delvalle June 13, 2024 1:02 PM documented in this encounter [facility] 06-13-2024 Miscellaneous Notes Encounter addended by: Daniela Parks Mammo Tech on: 06/13/2024 1:02 PM Actions taken: Clinical Note Signed documented in this encounter [facility] 06-13-2024 Note Encounter addended b y: Phillip, DanielaNarayanbrant Cervantes on: 06/13/2024 1:02 PM Actions taken: Clinical Note Signed [facility] 06-13-2024 Note HNO ID: [id number] Author: DANIELA PARKS Mammo Tech Service: ? Author Type: Communication Center Operator Type: Progress Notes Filed: 06/13/2024 13:02 Note [...] PATIENT PRESENTS WITH AN IMPLANTABLE OR ATTACHED TRIMMER SORTER: No RADIOLOGY DEPARTMENT: Mammography PERIPHERAL IV DATA: Not applicable SIGNED BY: Trent Delvalle June 13, 2024 1:02 PM [facility] 06-13-2024 History of Present illness Narrative Radiology [...] PATIENT PRESENTS WITH AN IMPLANTABLE OR ATTACHED TRIMMER SORTER: No RADIOLOGY DEPARTMENT: Bone Density PERIPHERAL IV DATA: Not applicable SIGNED BY: RT Jj(R) June 13, 2024 12:24 PM documented in this encounter [facility] 06-13-2024 Note HNO ID: [id number] Author: BALDEMAR HERNDON RT(R) Service: ? Author [...] PATIENT PRESENTS WITH AN IMPLANTABLE OR ATTACHED TRIMMER SORTER: No RADIOLOGY DEPARTMENT: Bone Density PERIPHERAL IV DATA: Not applicable SIGNED BY: RT Jj(Henri) June 13, 2024 12:24 PM [facility] 06-08-2024 Note HNO ID: [id number] Author: MICHAEL BABIN MD Service: ? Author Type: Physician Type: Progress Notes Filed: 06/08/2024 15:07 Note Text: [facility] Triage Note: Patient presents to the [facility] with complaint of severe right arm pain [...] with imaging and pain medicine are available. [facility] 06-08-2024 History of Present illness Narrative Express [facility] Triage Note: Patient presents to the [facility] with complaint of severe right arm pain [...] medicine are available. documented in this encounter [facility] 05-10-2024 Note HNO ID: [id number] Author: NIMCO GALINDO LPN Service: ? Author Type: LICENSED NURSE Type: Progress Notes Filed: 05/10/2024 09:24 Note Text: Per Katrina Goode was provided with powerstep gel inserts, size 10, and instructed/educated in its application, wear, and care. All questions were answered, and patient was able to demonstrate competence with the necessary skills to utilize the above equipment. Nimco Galindo LPN [facility] 05-10-2024 History of Present illness Narrative Per [...] Radha Sagastume DPM Podiatry [address] [facility] [address] Dept: [phone] Dept AMB ROOMING INTAKE FLOWSHEET DATA Pain Pain Level: 8 Pain Location: Foot-Right Description: Sore Duration Amount of Time: 1 Duration Units: Weeks Frequency: Intermittent Intervention/Comfort measure: Reposition, Relaxation Patient presents with: Right Foot - Numbness, New, Pain Nimco Galindo LPN documented in this encounter [facility] 05-10-2024 Instructions Radha Sagastume - 05/10/2024 9:19 AM EST Powerstep Original Full length. Can purchase at [facility] Runner and boots,shoes and more here in [place], [employer] in [place] or [place]. Also can find in [place] in [facility]. Powersteps can also be purchased online, starting [...] fits well together documented in this encounter [facility] 05-10-2024 Note HNO ID: [id number] Author: RADHA SAGASTUME, ? Service: ? Author [...] since quittin.1 Smoke (more content not included)... [facility] 05-10-2024 Note HNO ID: [id number] Author: NIMCO GALINDO LPN Service: ? Author Type: LICENSED NURSE Type: Progress Notes Filed: 05/10/2024 09:24 Note Text: AMB ROOMING INTAKE FLOWSHEET DATA Pain Pain Level: 8 Pain Location: Foot-Right Description: Sore Duration Amount of Time: 1 Duration Units: Weeks Frequency: Intermittent Intervention/Comfort measure: Reposition, Relaxation Patient presents with: Right Foot - Numbness, New, Pain Nimco SKYE Galindo [facility] 05-09-2024 History of Present illness Narrative Radiology [...] PATIENT PRESENTS WITH AN IMPLANTABLE OR ATTACHED TRIMMER SORTER: No RADIOLOGY DEPARTMENT: General X-ray: Exam(s) Completed: Lower Extremity X-Ray(s): Foot, Right and Wt. Bearing PERIPHERAL IV DATA: Not applicable SIGNED BY: RT Quique(Henri) May 09, 2024 11:02 AM documented in this encounter [facility] 05-09-2024 Note HNO ID: [id number] Author: MG PENA RT(R) Service: Radiology Author [...] PATIENT PRESENTS WITH AN IMPLANTABLE OR ATTACHED TRIMMER SORTER: No RADIOLOGY DEPARTMENT: General X-ray: Exam(s) Completed: Lower Extremity X-Ray(s): Foot, Right and Wt. Bearing PERIPHERAL IV DATA: Not applicable SIGNED BY: RT Quique(R) May 09, 2024 11:02 AM [facility] 05-09-2024 Note HNO ID: [id number] Author: TIMA LÓPEZ APRN.QUALITY ENGINEER MEDICAL DEVICE Service: ? Author Type: Nurse Practitioner Type: [...] history is provided by the patient. No american sign language teacher was used. Pain (foot) Review of Systems [...] EGD TRANSORAL BIOPSY SINGLE/MULTIPLE 06/16/2010 EGD W/O [facility] SPEC VARICIES INJ 11/17/2021 EXC NEUROMA HAND/FOOT [...] XR FOOT GENER (more content not included)... [facility] 05-09-2024 History of Present illness Narrative Images [...] history is provided by the patient. No american sign language teacher was used. Pain (foot) Review of Systems [...] EGD TRANSORAL BIOPSY SINGLE/MULTIPLE 06/16/2010 EGD W/O [facility] SPEC VARICIES INJ 11/17/2021 EXC NEUROMA HAND/FOOT [...] fracture or malalignment of the right foot. Hair Cutter: LISA Transcribe Date/Time: May 09 2024 11:22A Dictated by : JADA ENGLISH MD - CONSULT TO PODIATRY - patient to make appt before leaving today. Instructed to take tylenol and ice and rest for a few days. Will see podiatry if pain persists for further testing. Strain vs contusion. Patient agreeable with this care plan. Tima López APRN.QUALITY ENGINEER MEDICAL DEVICE documented in this encounter [facility] 04-22-2024 Telephone encounter Note Patient called requesting the following refill. Requested Prescriptions Pending Prescriptions Disp Refills sertraline (ZOLOFT) 100 mg tablet 90 tablet 3 Sig: Take 1 tablet by mouth once daily. Patient last appointment: 04/17/2024 Next appointment 10/21/2024 Patient Phone numbers: [phone] (home) Request is for script(s) to be escript to mail order [facility]. Ana Julian LPN [facility] 04-22-2024 Miscellaneous Notes Patient called requesting the following refill. Requested Prescriptions Pending Prescriptions Disp Refills sertraline (ZOLOFT) 100 mg tablet 90 tablet 3 Sig: Take 1 tablet by mouth once daily. Patient last appointment: 04/17/2024 Next appointment 10/21/2024 Patient Phone numbers: [phone] (home) Request is for script(s) to be escript to mail order [facility]. Ana Julian LPN documented in this encounter [facility] 04-17-2024 Instructions Dennis Marcial MD - 04/17/2024 [...] review all the medicines you take, even mfgk-krz-splwrkl medicines. As you get older, the way [...] certain medical conditions. documented in this encounter [facility] 04-17-2024 Note HNO ID: [id number] Author: DENNIS MARCIAL MD Service: ? Author [...] assessment is positive, (more content not included)... [facility] 04-17-2024 History of Present illness Narrative Images [...] EGD TRANSORAL BIOPSY SINGLE/MULTIPLE 06/16/2010 EGD W/O [facility] SPEC VARICIES INJ 11/17/2021 EXC NEUROMA HAND/FOOT [...] 2024 3:17 PM documented in this encounter [facility] 04-17-2024 Note HNO ID: [id number] Author: STEPHANE IBRAHIM LPN Service: ? Author Type: LICENSED NURSE Type: Progress Notes Filed: 04/17/2024 16:15 Note Text: Due health maintenance DTaP,Tdap,Td Vaccine(1 - Tdap) declined Alpha-1 Antitrypsin Deficiency Screening declined Mammogram Screening ordered Bone Density Screening ordered Need presurgical clearance for surgery. Patient has no current complaints or concerns. Declined sensitive Stephane Ibrahim LPN April 17, 2024 3:17 PM [facility] 04-01-2024 Telephone encounter Note Patient called requesting the following refill. Requested Prescriptions Pending Prescriptions Disp Refills rOPINIRole (REQUIP) 1 mg tablet 90 tablet 3 Sig: Take 1 tablet by mouth daily at bedtime. Patient last appointment: 02/12/2024 Next appointment 04/17/2024 Patient Phone numbers: [phone] (home) Request is for script(s) to be escript to mail order [facility]. Ana Julian LPN [facility] 04-01-2024 Miscellaneous Notes Patient called requesting the following refill. Requested Prescriptions Pending Prescriptions Disp Refills rOPINIRole (REQUIP) 1 mg tablet 90 tablet 3 Sig: Take 1 tablet by mouth daily at bedtime. Patient last appointment: 02/12/2024 Next appointment 04/17/2024 Patient Phone numbers: [phone] (home) Request is for script(s) to be escript to mail order [facility]. Ana Julina LPN documented in this encounter [facility] 02-22-2024 Telephone encounter Note I spoke to patient Piotr and advised her per Dr Marcial's notes. Patient did voice understanding and she is very thankful. Ana Julian LPN February 22, 2024 1:34 PM [facility] 02-22-2024 Miscellaneous Notes I spoke to patient Piotr and advised her per Dr Marcial's notes. Patient did voice understanding and she is very thankful. Ana Julian LPN February 22, 2024 1:34 PM I attempted to call patient Piotr. No answer. I left a voice mail message for patient to return call to office. Ana Julian LPN February 14, 2024 11:[address] Marcial regarding patient's recent test results: CBC and iron much improved. I attempted to call patient Piotr. No answer. I left a voice mail message for patient to return call to office. Ana Julian LPN February 13, 2024 9:13 AM documented in this encounter [facility] 02-14-2024 Telephone encounter Note I attempted to call patient Piotr. No answer. I left a voice mail message for patient to return call to office. Ana Julian LPN February 14, 2024 11:45 AM [facility] 02-13-2024 Telephone encounter Note Per Dr Marcial regarding patient's recent test results: CBC and iron much improved. I attempted to call patient Piotr. No answer. I left a voice mail message for patient to return call to office. Ana Julian LPN February 13, 2024 9:13 AM [facility] 02-12-2024 Note HNO ID: [id number] Author: DENNIS MARCIAL MD Service: ? Author Type: Physician Type: Progress Notes Filed: 02/12/2024 13:00 Note Text: Subjective Katrina Serrano is a [...] today? Yes, Provid (more content not included)... [facility] 02-12-2024 History of Present illness Narrative Sherry Serrano [...] EGD TRANSORAL BIOPSY SINGLE/MULTIPLE 06/16/2010 EGD W/O [facility] SPEC VARICIES INJ 11/17/2021 EXC NEUROMA HAND/FOOT [...] 2024 11:22 AM documented in this encounter [facility] 02-12-2024 Note HNO ID: [id number] Author: ELVIRA MCINTOSH LPN Service: ? Author Type: LICENSED NURSE Type: Progress Notes Filed: 02/12/2024 13:00 Note Text: Patient is in office for follow up for chronic medical conditions Patient is suffering from restless leg syndrome, and also states her Amitriptyline is no long effective for sleep Elvira Mcintosh LPN February 12, 2024 11:22 AM [facility] 02-12-2024 Telephone encounter Note Faxed Maki Mackay LPN [facility] 02-12-2024 Miscellaneous Notes Faxed Maki Mackay LPN Surgical clearance form from [facility] currently in provider's mailbox for review. Maki Mackay LPN Pt calling to inquire about getting pulmonary surgical clearance for insertion of stimulator implant for pain. [facility]. Does pt need appt to be cleared? Any additional testing? CASTILLO 12/2023 Last Oximetry with ambulation 12/2022 Please review and advise. Eden Juan MA documented in this encounter [facility] 02-08-2024 Telephone encounter Note Surgical clearance form from [facility] currently in provider's mailbox for review. Maki Mackay LPN [facility] 02-08-2024 Telephone encounter Note Pt calling to inquire about getting pulmonary surgical clearance for insertion of stimulator implant for pain. [facility]. Does pt need appt to be cleared? Any additional testing? CASTILLO 12/2023 Last Oximetry with ambulation 12/2022 Please review and advise. Eden Juan MA [facility] 01-26-2024 Telephone encounter Note Patient phoned office [...] Mcintosh LPN January 26, 2024 9:09 AM [facility] 01-26-2024 Miscellaneous Notes Patient phoned office again [...] to run out. documented in this encounter [facility] 01-25-2024 Telephone encounter Note Summary: Regarding Zoloft Patient is requesting a return call regarding her Zoloft, states it was not sent in correctly to [facility] and she is about to run out. [facility] 01-25-2024 Telephone encounter Note Patient phoned for urine cx results and given to patient. Patient was prescribed cephalexin AB and reports her s/s have improved. [facility] 01-25-2024 Miscellaneous Notes Patient phoned for urine cx results and given to patient. Patient was prescribed cephalexin AB and reports her s/s have improved. documented in this encounter [facility] 01-22-2024 Telephone encounter Note Attempted to contact to verify Zoloft dose but I could not hear because she was in the car wash. Patient was agreeable to me calling her tomorrow at 330pm. Call ended. Lamar Olivera LPN January 22, 2024 6:17 PM [facility] 01-22-2024 Miscellaneous Notes Attempted to contact to verify Zoloft dose but I could not hear because she was in the car wash. Patient was agreeable to me calling her tomorrow at 330pm. Call ended. Lamar Olivera LPN January 22, 2024 6:17 PM documented in this encounter [facility] 01-20-2024 Instructions Jaspreet Curtis APRN.AMAIRANI - 01/20/2024 10:46 AM EDT ASSESSMENT/PLAN: 1. [...] Discussed expected course of illness Jaspreet Curtis APRN.QUALITY ENGINEER MEDICAL DEVICE [facility] PATIENT INFO BLADDER INFECTION OVERVIEW Bladder infections [...] have an infection. documented in this encounter [facility] 01-20-2024 Note HNO ID: [id number] Author: JASPREET CURTIS APRN.QUALITY ENGINEER MEDICAL DEVICE Service: ? Author Type: Nurse Practitioner Type: [...] Vaping status: Sue (more content not included)... [facility] 01-20-2024 History of Present illness Narrative Subjective [...] EGD TRANSORAL BIOPSY SINGLE/MULTIPLE 06/16/2010 EGD W/O [facility] SPEC VARICIES INJ 11/17/2021 EXC NEUROMA HAND/FOOT [...] Discussed expected course of illness Jaspreet Curtis APRN.QUALITY ENGINEER MEDICAL DEVICE documented in this encounter [facility] 01-11-2024 Telephone encounter Note No , can not do that for narcotic. [facility] 01-11-2024 Miscellaneous Notes No , can not [...] trips to the pharmacy Patient Phone numbers: [phone] (home) Request is for script(s) to be escript to [facility] pharmacy. Ana Julian LPN documented in this encounter [facility] 01-10-2024 Telephone encounter Note Patient called requesting [...] trips to the pharmacy Patient Phone numbers: [phone] (home) Request is for script(s) to be escript to [facility] pharmacy. Ana Julian LPN [facility] 12-26-2023 History of Present illness Narrative Images from the original note were not included. . [facility] Note Patient name: Katrina Serrano PCP: Dennis Marcial MD CC: cough/follow-up COPD HPI: Katrina Serrano 68 year old female former [id number] smoker, quitting in 1999 with PMH significant [...] did not seek medical care and took nrrh-ngu-xuwmxze Mucinex with some improvement in her symptoms [...] DATE OF EXAM: Dec 18 2023 10:55AM [facility] 0541 - CT CHEST WO IVCON [...] EGD TRANSORAL BIOPSY SINGLE/MULTIPLE 11/17/2021: EGD W/O [facility] SPEC VARICIES INJ No date: EXC NEUROMA [...] cancer -Continue abstinence Oscar Mireles MD [facility] documented in this encounter [facility] 12-26-2023 Nurse Note Intake information documented in the prior visit with Dr. Steward today. [facility] 12-26-2023 Nurse Note Intake information documented in the prior visit with Dr. Steward today. documented in this encounter [facility] 12-26-2023 History of Present illness Narrative (Elements copied from my note datedFebruary 2023 , have been reviewed and updated where appropriate, and all reflect current assessment and medical decision making from today's encounter, December 26, 2023) HISTORY OF PRESENT ILLNESS: Katrina Serrano is a 67 year old female here for follow up. Per Dr Lambert: DIAGNOSIS: Lung cancer (cT1-2, N2M0) [id number]/ stage IIIA adenocarcinoma of the right middle [...] vascularized pedicle tissue buttress of bronchial stump. [id number] Previous treatment: Durvalumab maintenance x 4 doses [...] which included preparing to see the patient, taiw-vu-svwp patient care, completing clinical documentation, obtaining and/or reviewing separately obtained history, counseling and educating the patient/family/caregiver, ordering medications, tests, or procedures, independently interpreting results (not separately reported), and communicating results to the patient/family/caregiver. Also reviewed images. Electronically Signed: Shane Steward MD December 26, 2023 documented in this encounter [facility] 12-18-2023 History of Present illness Narrative Radiology [...] PATIENT PRESENTS WITH AN IMPLANTABLE OR ATTACHED TRIMMER SORTER: No RADIOLOGY DEPARTMENT: CT; Exam(s) Completed: Chest PERIPHERAL IV DATA: Not applicable SIGNED BY: RT Mili(R) December 18, 2023 2:02 PM documented in this encounter [facility] 11-25-2023 History of Present illness Narrative Images [...] history is provided by the patient. No american sign language teacher was used. Rash Review of Systems Constitutional: [...] EGD TRANSORAL BIOPSY SINGLE/MULTIPLE 06/16/2010 EGD W/O [facility] SPEC VARICIES INJ 11/17/2021 EXC NEUROMA HAND/FOOT [...] Tima López APRN.AMAIRANI documented in this encounter [facility] 09-14-2023 Telephone encounter Note Patient states she has been taking her iron Elvira Mcintosh LPN September 14, 2023 4:30 PM [facility] 09-14-2023 Miscellaneous Notes Patient states she has [...] ----- Taking iron? documented in this encounter [facility] 09-13-2023 Telephone encounter Note Message left for patient to phone office at earliest convenience in regards to results. Elvira Mcintosh LPN September 13, 2023 1:33 PM [facility] 09-11-2023 Telephone encounter Note Message left for patient to phone office at earliest convenience in regards to results. Elvira Mcintosh LPN September 11, 2023 1:49 PM [facility] 09-11-2023 Telephone encounter Note ----- Message from Dennis Marcial MD sent at 09/11/2023 1:13 PM EDT ----- Taking iron? [facility] 09-05-2023 Telephone encounter Note Last Office Visit: 08-23-2023 Next Scheduled Office Visit: 02-28-2024 Requested Prescriptions Pending Prescriptions Disp Refills simvastatin (ZOCOR) 20 mg tablet 90 tablet 3 Sig: Take 1 tablet by mouth daily at bedtime. Script was sent to [facility] Elvira Mcintosh LPN September 05, 2023 8:44 AM [facility] 09-05-2023 Miscellaneous Notes Last Office Visit: 08-23-2023 Next Scheduled Office Visit: 02-28-2024 Requested Prescriptions Pending Prescriptions Disp Refills simvastatin (ZOCOR) 20 mg tablet 90 tablet 3 Sig: Take 1 tablet by mouth daily at bedtime. Script was sent to [facility] Elvira Mcintosh LPN September 05, 2023 8:44 AM documented in this encounter [facility] 09-04-2023 Telephone encounter Note Last Office Visit: 08/23/23 Next Scheduled Office Visit: Requested Prescriptions Pending Prescriptions Disp Refills simvastatin (ZOCOR) 20 mg tablet [Pharmacy Med Name: SIMVASTATIN 20 MG TABLET] 30 tablet 0 Sig: take 1 tablet by mouth everyday at bedtime Jia Veliz LPN September 04, 2023 3:42 PM [facility] 09-04-2023 Miscellaneous Notes Last Office Visit: 08/23/23 Next Scheduled Office Visit: Requested Prescriptions Pending Prescriptions Disp Refills simvastatin (ZOCOR) 20 mg tablet [Pharmacy Med Name: SIMVASTATIN 20 MG TABLET] 30 tablet 0 Sig: take 1 tablet by mouth everyday at bedtime Jia Veliz LPN September 04, 2023 3:42 PM documented in this encounter [facility] 08-23-2023 History of Present illness Narrative This note was created using TripFabriter. Subjective Katrina Serrano is a 67 year [...] (HCC) I70.0 9. 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 Stage 3b chronic kidney disease (HCC) N18.32 11. Stage 3 chronic kidney disease, unspecified whether stage 3a or 3b CKD (HCC) N18.30 12. Iron deficiency anemia, unspecified iron [...] 2023 11:02 AM documented in this encounter [facility] 06-21-2023 History of Present illness Narrative Patient: Katrina Serrano PCP: Dennis Marcial MD CC: routine follow up HPI: Katrina Serrano 67 year old female former 30 pack year smoker with PMH significant for COPD, nocturnal oxygen use, GERD, AF, CKD, lung cancer. Diagnosed with lung cancer in 2020 due to PET avid RML nodule. Stage [...] EGD TRANSORAL BIOPSY SINGLE/MULTIPLE 06/16/2010 EGD W/O [facility] SPEC VARICIES INJ 11/17/2021 EXC NEUROMA HAND/FOOT [...] No abnormality in the imaged upper abdomen. Voice Teacher (topogram) images: No additional findings. ASSESSMENT/PLAN: 1. [...] Lesley Boucher PA-C documented in this encounter [facility] 06-21-2023 Nurse Note Intake information documente.d in the prior visit with Dr. Steward today. documented in this encounter [facility] 06-21-2023 History of Present illness Narrative HISTORY OF PRESENT ILLNESS: Katrina Serrano is a 67 year old female here for follow up. 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 [id number] Previous treatment: Durvalumab maintenance x 4 doses [...] which included preparing to see the patient, fdxr-tl-gocv patient care, completing clinical documentation, obtaining and/or reviewing separately obtained history, counseling and educating the patient/family/caregiver, ordering medications, tests, or procedures, independently interpreting results (not separately reported), and communicating results to the patient/family/caregiver. Electronically Signed: Shane Steward MD June 21, 2023 documented in this encounter [facility] 06-19-2023 Nurse Note Patient continues to have intermittent cramping abdominal pain, but states she feels well enough to go home. States pain has lessened since she first came out of procedure. documented in this encounter [facility] 06-19-2023 History and physical note HISTORY AND PHYSICAL EXAMINATION SERVICE DATE: 06/19/2023 SERVICE TIME: 8:38 AM PRIMARY CARE PHYSICIAN: Denins Marcial MD REASON FOR VISIT: Katrina Serrano [...] Deficiency Aci (Adrenal Cortical Insufficiency) (Hcc) Polyarthritis Long-Term Current Use of Anticoagulant Therapy Preop Examination [...] medical conditions which may affect traci-operative course Problem List Items Addressed This Visit Cardiovascular Paroxysmal atrial fibrillation (HCC) Overview History: During evaluation with pulmonology 05/25/20, found to have fast, irregular heart rhythm, prompted to go to local ED for evaluation, found to be new atrial fibrillation with RVR, spontaneously converted to SR. Ultimately admitted to [facility] 05/26/20 where cardiology evaluated her added [...] [R19.5] Planned Procedure: colonoscopy Planned Anesthetic: JAMIL Graf spent a total of 20 minutes on the date of the service which included preparing to see the patient, wjge-eh-mavh patient care, completing clinical documentation, obtaining and/or reviewing separately obtained history, and performing a medically appropriate examination. SIGNATURE: Anamika Richardson APRN.QUALITY ENGINEER MEDICAL DEVICE PATIENT NAME: Katrina Serrano DATE: June 19, [...] NAME: Katrina Serrano documented in this encounter [facility] 06-12-2023 History of Present illness Narrative Radiology [...] PATIENT PRESENTS WITH AN IMPLANTABLE OR ATTACHED TRIMMER SORTER: No RADIOLOGY DEPARTMENT: CT; Exam(s) Completed: Chest PERIPHERAL IV DATA: Not applicable SIGNED BY: RT Mili(R) June 12, 2023 3:20 PM documented in this encounter [facility] 05-14-2023 History of Present illness Narrative This note was created using TripFabriter. Subjective Katrina Serrano is a 67 year [...] Assessment and Plan Encounter Diagnosis ICD-10-CM 1. FCI current use of anticoagulant therapy Z79.01 2. [...] 2023 4:30 PM documented in this encounter [facility] 04-25-2023 Miscellaneous Notes Airway checked in office by Paula Peralta. Patient must be scoped at a hospital setting. documented in this encounter [facility] 04-13-2023 Miscellaneous Notes Patient phones requesting refills as follows: Requested Prescriptions Pending Prescriptions Disp Refills umeclidinium-vilanterol (ANORO ELLIPTA) 62.5-25 mcg/actuation inhaler 3 Each 3 Sig: Inhale 1 Inhalation as instructed once daily. Please review and advise. Ladonna Lebron RN documented in this encounter [facility] 03-06-2023 Miscellaneous Notes Pt states her ID is Shahla Milner [phone] Valentine Edgar Ma documented in this encounter [facility] 03-06-2023 History of Present illness Narrative CHIEF [...] Abs Lymph 1.00 - 4.00 k/uL 1.20 [place]% % 8.4 Abs [place] <0.87 k/uL 0.57 Eosin% % 2.4 Abs [...] which included preparing to see the patient, ynjf-mm-jtpc patient care, completing clinical documentation, obtaining and/or reviewing separately obtained history, performing a medically appropriate examination, counseling and educating the patient/family/caregiver, and ordering medications, tests, or procedures. Jayne Woods PA-C March 06, 2023 8:52 AM documented in this encounter [facility] 02-09-2023 History of Present illness Narrative Subjective HPI HPI Katrina Serrano is a 67 year old female who presents today for CC of diarrhea. Diagnosed 01/07 with cdiff, tx with vanco for 14 days, s/s improved [...] - VANCOMYCIN 125 MG CAPSULE Kael Nunez APRN.QUALITY ENGINEER MEDICAL DEVICE documented in this encounter [facility] 01-27-2023 Miscellaneous Notes Patient notified of results, verbalized understanding of instructions given. Crystal Lorenz MA Unable to reach patient. Number incorrect. Please try again later. Nereida Cisneros LPN Urine culture did not show a clear infection. Finish antibiotic and follow up with PCP, urology, or OUTPATIENT SURGERY RN if symptoms persist. documented in this encounter [facility] 01-25-2023 History of Present illness Narrative CC: [...] Tima López APRN.AMAIRANI documented in this encounter [facility] 01-24-2023 Miscellaneous Notes Pharmacy MyChart message requesting the following refill. Requested Prescriptions Pending Prescriptions Disp Refills dicyclomine (BENTYL) 10 mg capsule [Pharmacy Med Name: DICYCLOMINE 10 MG CAPSULE] 120 capsule 5 Sig: TAKE 1 CAPSULE BY MOUTH BEFORE MEALS AND AT BEDTIME. Patient last appointment: 01/02/2023 Next appointment 01/30/2023 Patient Phone numbers: [phone] (home) Request is for script(s) to be escript to [facility] pharmacy. Ana Julian LPN documented in this encounter [facility] 01-17-2023 Miscellaneous Notes Patient given results and verbalized understanding of instructions given. Arina Howard No parasites or other bacteria noted in stool. Patient should continue C. difficile treatment and follow-up with PCP like previous provider discussed. documented in this encounter [facility] 01-17-2023 Miscellaneous Notes This nurse phoned patient and informed her that medication was sent to pharmacy by another provider. Advised to phone our office if anything further is needed Elvira Mcintosh LPN January 17, 2023 9:27 AM documented in this encounter [facility] 01-17-2023 Miscellaneous Notes This encounter was opened in error. documented in this encounter [facility] 01-15-2023 Miscellaneous Notes Patient identified by name and date of . Patient advised of + C dif stool test. Vancomycin sent to her pharmacy, she is advised to follow up with her PCP and/or gastroenterology. Contagiousness discussed. Jaspreet Curtis APRN.AMAIRANI documented in this encounter [facility] 01-07-2023 Instructions Jaspreet Curtis APRN.AMAIRANI - 01/07/2023 12:26 PM EDT ASSESSMENT/PLAN: 1. [...] Jaspreet Curtis APRN.CNP documented in this encounter [facility] 01-07-2023 History of Present illness Narrative Subjective [...] Discussed expected course of illness Jaspreet Curtis APRN.QUALITY ENGINEER MEDICAL DEVICE documented in this encounter [facility] 01-06-2023 Miscellaneous Notes Does patient need infectious disease consult?? Elvira Mcintosh LPN January 06, 2023 11:42 AM documented in this encounter [facility] 01-06-2023 Miscellaneous Notes Patient phoned office stating that she is continuing with diarrhea with completion of Tinidazole. This nurse advised for patient to go to the ED if unable to stop with diarrhea. Elvira Mcintosh LPN January 06, 2023 11:39 AM documented in this encounter [facility] 01-03-2023 History of Present illness Narrative Images [...] Infectious Disease Office documented in this encounter [facility] 01-02-2023 History of Present illness Narrative This note was created using TripFabriter. Subjective Katrina Serrano is a 67 year [...] 11 days ago. She was seen at [facility] where she was tested for C. [...] Piotr will follow-up as needed. Sharlene Vergara APRN.QUALITY ENGINEER MEDICAL DEVICE Patient was seen in conjunction with Sharlene [...] for 11 days. Patient was seen at [facility], and was tested for C Diff which was negative. Enteric Bacterial panel was negative as well. Patient is currently taking prednisone that she had left over to try and help diarrhea. Elvira Mcintosh LPN January 02, 2023 10:44 AM documented in this encounter [facility] 12-29-2022 Miscellaneous Notes Patient notified.Elsie Strange LPN Patient was seen here on Monday for diarrhea-tests were done but still waiting on results of one-she wants to know what she can do for the diarrhea-please review and advise.Elsie Strange LPN documented in this encounter [facility] 12-27-2022 History of Present illness Narrative CC: [...] with this care plan. Tima López APRN.AMAIRANI Prescription instructions reviewed with patient as applicable. Potential red flag symptoms discussed with the patient. Reviewed appropriate action plan to take if red flag symptoms occur. Patient agreeable to treatment plan. Tima López APRN.AMAIRANI documented in this encounter [facility] 12-09-2022 History of Present illness Narrative Images from the original note were not included. . Respiratory [place] Note Patient name: Katrina Serrano PCP: Dennis [...] DATE OF EXAM: Oct 10 2022 8:51AM [facility] 0541 - CT CHEST WO IVCON [...] No abnormality in the imaged upper abdomen. Voice Teacher (topogram) images: No additional findings. IMPRESSION: No [...] -Continue nocturnal oxygen Oscar Mireles MD [facility] documented in this encounter [facility] 12-07-2022 Procedure note Associated Ord er(s): OXIMETRY [...] 1:52 PM Comment: documented in this encounter [facility] 12-07-2022 History of Present illness Narrative PULM FUNCTION SMARTBLOCK: Provider: Oscar Mireles MD Assisting Tech: Dee Dee Escoto RPFT Oximetry - Ambulation: 1 documented in this encounter [facility] 12-07-2022 History of Present illness Narrative HISTORY OF PRESENT ILLNESS: Katrina Serrano is a 67 year old female here for follow up. Per Dr Lambert: DIAGNOSIS: Lung cancer (cT1-2, N2M0) [id number]/ stage IIIA adenocarcinoma of the right middle [...] which included preparing to see the patient, cnis-la-jlfo patient care, completing clinical documentation, obtaining and/or reviewing separately obtained history, counseling and educating the patient/family/caregiver, ordering medications, tests, or procedures, independently interpreting results (not separately reported), and communicating results to the patient/family/caregiver. Electronically Signed: Shane Steward MD December 07, 2022 1:19 PM documented in this encounter [facility] 12-07-2022 Miscellaneous Notes Patient called back and [...] Please review and advise. Thank you. Piotr# [phone] Yudelka Bonilla LPN documented in this encounter [facility] 12-05-2022 Miscellaneous Notes Last Office Visit: 11-28-2022 Next Scheduled Office Visit: 01-02-2023 Requested Prescriptions Pending Prescriptions Disp Refills sertraline (ZOLOFT) 50 mg tablet 180 tablet 3 Sig: Take 1 tablet by mouth twice daily. Elvira Mcintosh LPN December 05, 2022 9:52 AM documented in this encounter [facility] 11-24-2022 Miscellaneous Notes Patient phoned office with [...] 2022 4:40 PM documented in this encounter [facility] 11-24-2022 Miscellaneous Notes Patient phones requesting refills [...] medications. Please review and advise. Lesley Mtz MA documented in this encounter [facility] 11-07-2022 Miscellaneous Notes Last Office Visit: 08-29-2022 Next Scheduled Office Visit: 01-30-2023 Requested Prescriptions Pending Prescriptions Disp Refills DULoxetine (CYMBALTA) 60 mg capsule [Pharmacy Med Name: DULOXETINE CAP 60MG DR] 90 capsule 3 Sig: TAKE 1 CAPSULE ONCE DAILY Elvira Mcintosh LPN November 07, 2022 11:29 AM documented in this encounter [facility] 10-12-2022 Miscellaneous Notes Changed to Fosamax 70 mg p.o. once a week. Drink with 8 ounces of water on an empty stomach. No food or drink for 1 hour. Sit upright for 1 hour after taking medicine. Hopefully she was already doing that part of this. Katrina Coles Maggie called today. : 1955 Allergies: Patient has no known allergies. (home) [phone] (cell) Reason for call: Patient reports that [...] has been captured for this encounter? Yes [facility] mail order. Ana Julian LPN documented in this encounter [facility] 10-11-2022 Miscellaneous Notes Patient called requesting the [...] 08/29/2022 Next appointment 01/30/2023 Patient Phone numbers: [phone] (home) Request is for script(s) to be escript to mail order [facility]. Ana Julian LPN documented in this encounter [facility] 10-10-2022 History of Present illness Narrative Radiology [...] 2022 8:42 AM documented in this encounter [facility] 09-19-2022 Miscellaneous Notes Pharmacy MyChart message requesting the following refill. Requested Prescriptions [...] 08/29/2022 Next appointment 01/30/2023 Patient Phone numbers: [phone] (home) Request is for script(s) to be escript to [facility] pharmacy. Ana Julian LPN documented in this encounter [facility] 09-12-2022 History of Present illness Narrative Images from the original note were not included. . 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 At [facility] she was on durvalumab but stopped [...] DATE OF EXAM: Oct 08 2021 9:26AM [facility] 0541 - CT CHEST WO IVCON [...] lobectomy -Supplemental oxygen Oscar Mireles MD Respiratory Towanda documented in this encounter [facility] 09-06-2022 Miscellaneous Notes Results have been sent to [facility] patient is referred to. Fax confirmation received Elvira Mcintosh LPN September 06, 2022 1:59 PM ----- Message from Dennis Marcial MD sent at 09/02/2022 4:25 PM EDT ----- Sed rate is elevated. STAN and rheumatoid factor are negative. Copy to rheumatology in advance of her consult. documented in this encounter [facility] 09-02-2022 Miscellaneous Notes Letter sent to patient to inform her of referral being sent to: [facility] [address] [place] [phone] Fax confirmation received Elvira Mcintosh LPN September 02, 2022 11:30 AM documented in this encounter [facility] 09-02-2022 Miscellaneous Notes Relayed message to patient. Can let her know iron is normal. Adrian Ann DO documented in this encounter [facility] 08-29-2022 History of Present illness Narrative This note was created using [employer]. Subjective Katrina Serrano is a 66 year [...] COMP METABOLIC PANEL 7. Atherosclerosis of aorta ([facility]) I70.0 8. Centrilobular emphysema ([facility]) J43.2 9. Stage 3 chronic kidney disease, unspecified whether stage 3a or 3b CKD ([facility]) N18.30 10. ACI (adrenal cortical insufficiency) ([facility]) E27.40 11. Pancytopenia ([facility]) D61.818 12. Recurrent major depressive disorder, in remission ([facility]) F33.40 13. Paroxysmal atrial fibrillation ([facility]) I48.0 Begin trial of Actonel. Use explained to the patient. Continue other medications. Follow-up in 6 months. Dennis Marcial MD Patient is in office today for 6 month exam. 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 Elvira Mcintosh LPN August 29, 2022 8:09 AM documented in this encounter [facility] 07-11-2022 Miscellaneous Notes Received form from patient's dentist in [place] asking for instructions on holding Xarelto for procedure. We do not prescribe this medication. Patient takes Xarelto for Afib and this is prescribed by her service trainer. I faxed the for to Latia Titus CNP, of [facility]. Patient notified. Regina Cook LPN Pt called wanting to speak to nurse. Would not disclose why. Please call pt when able. documented in this encounter [facility] 07-08-2022 Miscellaneous Notes I called [facility] #[phone] and ordered patient's next refill for her Prolia Injection. She gets this injection every 6 months for Osteoporosis and she is due for her next injection in August. This was her last refill so, next time she will need a new Rx for this medication. [facility] will contact the patient for her co-pay payment (over $700) and approval to ship the medication to this office. Ana Julian LPN July 08, 2022 1:19 PM documented in this encounter [facility] 07-08-2022 Miscellaneous Notes Patient called requesting the following refill. Requested Prescriptions Pending Prescriptions Disp Refills traMADol (ULTRAM) 50 mg tablet 90 tablet 0 Sig: Take 1 tablet by mouth every 8 hours as needed for pain for up to 30 days. Patient last appointment: 02/02/2022 I spoke with Piotr. She is in [place] right now. She will be returning to [place] mid August. She said she will call and schedule an appointment with Dr Marcial for August, and she will be due for her Prolia shot at that time. I will contact her specialty pharmacy [facility] about Prolia. Thank you! Patient Phone numbers: [phone] (home) Request is for script(s) to be escript to [facility] pharmacy. Ana Julian LPN documented in this encounter [facility] 04-26-2022 History of Present illness Narrative Radiology [...] 2022 10:12 AM documented in this encounter [facility] 04-05-2022 Miscellaneous Notes Patient called requesting the following refill. Requested Prescriptions Pending Prescriptions Disp Refills traMADol (ULTRAM) 50 mg tablet 90 tablet 0 Sig: Take 1 tablet by mouth every 6 hours as needed. Patient last appointment: 02/09/2022 Patient Phone numbers: [phone] (home) Request is for script(s) to be escript to [facility] pharmacy. Ana Julian LPN documented in this encounter [facility] 03-21-2022 Miscellaneous Notes Pt scheduled as directed below at [facility] Thank you! Griselda Ospina Spoke with pt. , PSS please put on schedule for labs and Chest x-ray 04/26@ 10 am. Orders are in and pt. Is aware. Danita Braga LPN Get labs and CXR in April Carolina Lambert MD please advise Last OV 01/04/22 PLAN: -Portable oxygen 2 liters continuous with activity for dyspnea. -She is leaving for [place] in February 2022 until August 2022. -Repeat CBC, CMP & iron study and OV in 8 months -CT chest without contrast in 8 months, than annually x 2 more years -Follow-up with PCP to monitor her CBC, and statue carver pulmonary fibrosis & COPD. Patient will be in [place] from 04/22 to 05/07. Patient is asking about lab draw and an office visit while she is in town. Please advise and call patient. documented in this encounter [facility] 02-09-2022 Miscellaneous Notes Spoke with [facility], they will coordinate transfer. Patient notified re: same. Maki Mackay LPN Patient called stating she is leaving for [place] tomorrow. Uses [employer] in [place] and in [place]. Needs CMN for current year to verify still on Oxygen. Fax number . Requested cell number to be primary- changed. Oly Rivera LPN documented in this encounter [facility] 02-09-2022 Nurse Note Pt is here today for a flu vaccine and a prolia inj documented in this encounter [facility] 02-07-2022 Miscellaneous Notes Referral to nephrology Patient stated they do not see nephrology Elvira Mcintosh LPN February 07, 2022 1:56 PM ----- Message from Dennis Marcial MD sent at 02/06/2022 8:57 PM EDT ----- Copy to nephrology documented in this encounter [facility] 02-02-2022 History of Present illness Narrative This note was created using [employer]. Subjective Katrina Serrano is a 66 year [...] PANEL BASIC; Future documented in this encounter [facility] 02-02-2022 Nurse Note Pt has complaints of productive cough with yellowish/greenish phlegm x 2 weeks denies fever has had fatigue documented in this encounter [facility] 01-17-2022 Miscellaneous Notes Summary: Regarding Prolia Patient said she has called twice regarding her appointment at the end of the month for her Prolia Injection, She is asking if she needs to order it, or has it already been ordered? documented in this encounter [facility] 01-04-2022 History of Present illness Narrative PATIENT NAME: Katrina Serrano. CLINIC NO: [id number]. ATTENDING PHYSICIAN: Carolina Lambert MD. DATE OF SERVICE: 01/04/2022. DIAGNOSIS: Lung cancer (cT1-2, N2M0) [id number]/ stage IIIA adenocarcinoma of the right middle [...] with prior chemoradiation. - Extranodal extension present. LIZ/ASHLY/whit 06/24/2020 SYNOPTIC REPORT OF MELGAR PATHOLOGIC FINDINGS [...] (DENICE): Present Additional Pathologic Findings: None identified Lead Qa Analyst Tumor Block: Specify: A5 Previous treatment: Durvalumab [...] Abs Lymph 1.00 - 4.00 k/uL 1.11 Cullman% % 7.2 Abs Cullman <0.87 k/uL 0.35 Eosin% % 5.8 Abs [...] activity for dyspnea. -She is leaving for [place] in February 2022 until August 2022. -Repeat CBC, CMP & iron study and OV in 8 months -CT chest without contrast in 8 months, than annually x 2 more years -Follow-up with PCP to monitor her CBC, and statue carver pulmonary fibrosis & COPD. Portions of this documentation were copied and pasted from previous office visit notes in order to provide a cohesive continuity of the history. The note has been reviewed and edited and updated as necessary. Carolina Lambert MD Cc: MD Dr. Natacha Cyr Dr. documented in this encounter [facility] 12-10-2021 Miscellaneous Notes Patient notified re: Stiolto. [...] complete an oximetry with ambulation test with PUBLICATIONS INSPECTOR to prove need to insurance as it has been greater than 30 days since she was last tested. Provider will need to place order. Maki Mackay LPN Patient called. Verified name and date of . Patient requesting O2 for portability with [facility]. She would also like to let Dr. Mireles know that she did not pickle maker the Anora at [facility] due to cost of $110 a month and is asking if anything else more affordable can be ordered? Please review and advise. Oly Rivera LPN documented in this encounter [facility] 12-09-2021 Instructions Shannan Brown MA - 12/09/2021 [...] cell phones, computers, remote TV appliances, microwaves, MP3 players and digital cameras. Because the capsule endoscopy equipment is somewhat ominous in appearance, we recommend you avoid the airport, bank and government buildings. Many museums use a similar technology for security, it [...] hours you may call: After Business hours: [phone] have answering service contact your physician documented in this encounter [facility] 12-09-2021 History of Present illness Narrative Patient had a capsule endoscopy. Patient swallowed the capsule without any difficulty. Referring Provider: Reason for Capsule: Patient was given discharge instructions. Ingested capsule endoscope without difficulty at 8:11 AM on 12/09/2021. documented in this encounter [facility] 12-06-2021 Miscellaneous Notes Pharmacy faxed requesting the following refill. Pending Prescriptions Disp Refills DULOXETINE 60 MG CAPSULE,DELAYED RELEASE 90 capsule 3 Sig: TAKE 1 CAPSULE ONCE DAILY. BISHOP: Yes Patient last appointment: 12/03/2021 Patient Phone numbers: [phone] (home) Request is for script(s) to be escript to pharmacy. Serenity Schroeder LPN documented in this encounter [facility] 12-03-2021 Miscellaneous Notes Pending Prescriptions Disp Refills DULOXETINE 60 MG CAPSULE,DELAYED RELEASE 90 capsule 3 Sig: Take 1 capsule by mouth once daily. BISHOP: No Elvira Mcintosh LPN December 03, 2021 8:29 AM documented in this encounter [facility] 11-26-2021 Miscellaneous Notes Ankush Guillermo is recommending the capsule since her egd was nml Can I please get an order? Thank you so much Alyssia documented in this encounter [facility] 11-26-2021 History of Present illness Narrative Patient [...] should be obtained. documented in this encounter [facility] 11-17-2021 History and physical note Images from the original note were not included. HISTORY AND PHYSICAL Katrina Coles Maggie 1955 [...] now referred to have this performed in [place] by one of the general surgeons. PAST [...] entered by the nurse and reviewed by ak Nursing Notes: Makayla Emmanuel RN 11/02/2021 9:08 [...] patient was offered a surgery/procedure at a [facility] facility. I have counseled the patient regarding [...] TIME: 10:42 AM documented in this encounter [facility] 11-12-2021 Miscellaneous Notes Patient has been identified [...] Kiera Ford LPN documented in this encounter [facility] 11-11-2021 Miscellaneous Notes Images from the original note were not included. MD Jericho Owen She is cleared. Please note that she has a paralyzed diaphragm and wears oxygen at night so she is likely to desaturate under anesthesia Patient scheduled with [facility] in [place] with [facility] 11/17. Per Kamilla wants this done with 2 weeks. As well as pulmonary clearance from Dr. Mireles within [facility]. Can we please get the clearance to proceed for EGD on 11/17 with [facility] in [place] Thank you Henrietta documented in this encounter [facility] 11-03-2021 Miscellaneous Notes Patient has been identified [...] Kiera Ford LPN documented in this encounter [facility] 11-02-2021 Miscellaneous Notes Patient scheduled with [facility] in [place] with [facility] 11/17. Per Kamilla wants this done with 2 weeks. As well as pulmonary clearance from Dr. Mireles within [facility]. Can we please get the clearance to proceed for EGD on 11/17 with [facility] in [place] Thank you Henrietta EGD cancelled for right now Henrietta Spoke to patient, will come in for a consult with Kamilla Bradley on 11/02/21 regarding EGD with [facility]. Please cancel EGD scheduled for 11/04/21 in the [facility] with [facility]. Patient called concerned that has a EGD scheduled for 11/04/21 at the [facility] with Dr Guillermo, Patient states was to have done at hospital d/t health history and lung issues. No consults noted with General Surgery. Telephone note from 10/13/21 from Ronald ALBERTO asking for order to have procedure done at [facility]. Please advise. documented in this encounter [facility] 11-02-2021 History of Present illness Narrative HISTORY AND PHYSICAL Katrina Serrano 1955 REFERRING [...] now referred to have this performed in [place] by one of the general surgeons. PAST [...] entered by the nurse and reviewed by ak Nursing Notes: Makayla Emmanuel RN 11/02/2021 9:08 [...] patient was offered a surgery/procedure at a [facility] facility. I have counseled the patient regarding [...] Kamilla Bradley PA-C documented in this encounter [facility] 11-02-2021 Nurse Note REVIEW OF SYSTEMS: General: [...] Makayla Emmanuel RN documented in this encounter [facility] 11-01-2021 Miscellaneous Notes Nocturnal Oximetry, 2L, 10/13/2021. Recording interval: 6:09:08 High pulse: 145 Low pulse: 66 Highest spO2: 97% Lowest spO2: 82% Time with spO2 < 88%: 2.5 minutes Recommendation: It appears that the current liter flow is not meeting patients needs. Recommend increasing to 3 LPM. I have received and reviewed the outside records noted above. Lesley Boucher PA-C [facility] Respiratory [place] documented in this encounter [facility] 10-22-2021 Miscellaneous Notes Patient aware of instructions, listed below. Prema Gilmore Patient tested positive for Covid 10/18 at home and 10/19 at [facility]. She can come in next week to pickle maker stool cards. Pr is to hold oral iron until stool cards are completed and returned. Regina Cook LPN Please file orders. Regina Cook LPN documented in this encounter [facility] 10-22-2021 Miscellaneous Notes Patient is rescheduled, aware [...] and call patient. documented in this encounter [facility] 10-20-2021 Miscellaneous Notes Patient notified of all [...] Lambert MD Molnupiravir Eligibility and Patient Discussion [facility] Formulary Restriction Criteria: Adult outpatients 18 years [...] of transplant or on systemic therapy for ltsui-uirsuc-wqdk disease [] CAR T-cell/other cellular therapy recipients [...] 2021 7:40 AM documented in this encounter [facility] 10-20-2021 Instructions Carolina Lambert MD - 10/20/2021 [...] healthcare provider to share your information with [employer], then your healthcare provider will report your use of molnupiravir during to [employer]. by calling or Pregnancyreporting.FIRE1. For individuals who are sexually active with [...] molnupiravir for the treatment of adults with cgye-br-xppdldya coronavirus disease 2019 (COVID-19) with positive results [...] virus. COVID-19 illnesses have ranged from very nuel-aq-jqmqnl, including illness resulting in . While information [...] is an investigational medicine used to treat wmfq-rd-plpunhiz COVID-19 in adults: with positive results of [...] serious illnesses Are taking any medicines (prescription, cbuf-grh-crbhxlr, vitamins, or herbal products). How do I [...] treat people with COVID-19. Go to https://www.fda.gov/emergency-prepa cshkymv-bag-bptcpeeu/mcm-legalregul iydiv-nge-wqabfd-framework/emergenc o-ilb-tmjghujqowfbn for more information. It is your choice [...] to FDA MedWatch at www.fda.gov/medwatch or call 4-781-OUJ-7314 ( ). How should I store molnupiravir? Store molnupiravir capsules at room temperature between 68 F to 77 F (20 C to 25 C). Keep molnupiravir and all medicines out of the reach of children and pets. How can I learn more about COVID-19? Ask your healthcare provider. Visit www.cdc.gov/COVID19 Contact your local or state public health department. Call [employer] at (toll free in the [place] Visit www.BEETmobilenupiraMDCapsule What Is an Emergency Use Authorization (EUA)? The [place] FDA has made molnupiravir available under an emergency access mechanism called an Emergency Use Authorization (EUA) The EUA is supported by a [place] Nurse of Health and Human Service (HHS) declaration that circumstances exist to justify emergency use of drugs and biological products during the COVID-19 pandemic. Molnupiravir for the treatment of wdql-ev-nmgleasj COVID-19 in adults with positive results of [...] used under the EUA). For patent information: www.FIRE1/research/patent Copyright 2020 [employer] & [employer] Inc[employer] [place], [facility] and its affiliates. All rights reserved. [id number] Issued: 04/29/2021 documented in this encounter [facility] 10-19-2021 Miscellaneous Notes Schedule updated, spouse notified of canceled appts. COVID and FLU tests in EPIC Carolina Lambert MD She probably should be on Monlupiavir instead because of Xarelto interacts with Paxlovid. Carolina Lambert MD Patient is [facility] Patient has a call into her PCP [...] to have a positive PCR test at [facility] before we could prescribe treatment. Please update her PCP regarding follow-up. Carolina Lambert MD documented in this encounter [facility] 10-18-2021 Miscellaneous Notes October 18, 2021 PID: [id number] Katrina Serrano [address] [place] [address] Dear Ms. Serrano, Your prior imaging studies [...] report will be kept on file at [facility] as part of your permanent medical record and are available for your continuing care. Thank you for allowing us to help in meeting your health care needs. Sincerely, Dr. Duran Interpreting Radiologist [facility] ([employer] compared) documented in this encounter [facility] 10-14-2021 Miscellaneous Notes October 14, 2021 PID: [id number] Katrina Serrano [address] [place] [address] Dear Ms. Serrano, Your breast imaging exam 10/14/2021 showed a possible finding that may require additional imaging studies for a complete evaluation. However, we recognize you have prior imaging studies at facilities other than [facility], and would like the opportunity to compare [...] and reports are kept on file at [facility] as part of your permanent medical record, and are available for your continuing care. If you have any questions or concerns, please call [phone]. Thank you for choosing [facility] for your imaging needs. Sincerely, Dr. Duran Interpreting Radiologist [facility] ([employer]) documented in this encounter [facility] 10-14-2021 History of Present illness Narrative Radiology [...] 2021 11:34 AM documented in this encounter [facility] 10-13-2021 Miscellaneous Notes Ankush uL our identification technician does not feel her lungs are good enough to come here Can I please get an order for [facility] Thank you so much documented in this encounter [facility] 10-12-2021 History of Present illness Narrative CHIEF COMPLAINT: Patient presents with: Anemia: H/o colitis. Labs 10/08/21 This consult was requested by Carolina Lambert MD for an opinion regarding anemia. My final recommendations will be communicated to the requesting health care provider by way of the shared medical record for internal providers or letter via the [employer] for external providers. HPI: Katrina Serrano is [...] No Family History Employer And Job Title: [employer] (No job title specified); [employer] ([employer]) Years Of Education Completed: Not [...] TIME: 10:16 AM documented in this encounter [facility] 10-12-2021 Miscellaneous Notes SOCIAL WORK FOLLOW UP [...] To Reach Patient documented in this encounter [facility] 10-11-2021 Instructions Carolina Lambert MD - 10/11/2021 9:19 AM EDT After GI evaluation; you can take OTC iron supplement Slow FE 65 mg twice daily. documented in this encounter [facility] 10-11-2021 Nurse Note Est. Pt, discuss recent labs and CT results. Danita Braga LPN documented in this encounter [facility] 10-11-2021 History of Present illness Narrative PATIENT NAME: Katrina Serrano. CLINIC NO: [id number]. ATTENDING PHYSICIAN: Carolina Lambert MD. DATE OF SERVICE: 10/11/2021. DIAGNOSIS: Lung cancer (cT1-2, N2M0) [id number]/ stage IIIA adenocarcinoma of the right middle [...] with prior chemoradiation. - Extranodal extension present. LIZ/ASHLY/whit 06/24/2020 SYNOPTIC REPORT OF MELGAR PATHOLOGIC FINDINGS [...] (DENICE): Present Additional Pathologic Findings: None identified Lead Qa Analyst Tumor Block: Specify: A5 Previous treatment: Durvalumab [...] required oxygen when she was down in [place]. She has no cough or shortness of [...] Lymph 1.00 - 4.00 k/uL 0.98 (L) Cullman% % 5.9 Abs Cullman <0.87 k/uL 0.31 Eosin% % 5.3 Abs [...] with more than 50% of the total cxqk-tw-nfxm time of the visit in counseling / coordination of care. Portions of this documentation were copied and pasted from previous office visit notes in order to provide a cohesive continuity of the history. The note has been reviewed and edited and updated as necessary. Cc: MD Maylin Cyr CNP Dr. Elizabeth Brown documented in this encounter [facility] 10-08-2021 Miscellaneous Notes Completed. Regina Cook LPN Add additional labs for anemia. documented in this encounter [facility] 10-08-2021 History of Present illness Narrative Radiology [...] 2021 3:16 PM documented in this encounter [facility] 09-10-2021 Instructions Oscar Mireles MD - 09/10/2021 10:08 AM EDT [employer]xygen company will send you an oximeter for testing Obtain nasal saline for moisture documented in this encounter [facility] 09-10-2021 History of Present illness Narrative Images from the original note were not included. . [facility] [place] Note Patient name: Katrina Serrano PCP: Dennis Marcial MD Oncology: Carolina Lambert MD CC: Shortness of breath Note: Part of following note copied forward from [facility] 04/20/2021 HPI: Katrina Serrano 65 year old female former [id number] smoker with PMH significant for emphysema/COPD on [...] was in April when she traveled to [place]. Treated with antibiotics and steroids. She states [...] Abs Lymph 1.00 - 4.00 k/uL 1.08 [place]% % 10.1 Abs [place] <0.87 k/uL 0.46 Eosin% % 4.4 Abs Eosin <0.46 k/uL 0.20 Baso% % 0.4 Abs Baso <0.11 k/uL <0.03 Immature Gran % % 0.4 Abs Immature Gran <0.10 k/uL <0.03 NRBC /100 WBC 0.0 Absolute nRBC <0.01 k/uL <0.01 Diff Type Auto Imaging / Diagnostic Studies: DATE OF EXAM: Jul 05 2021 12:19PM [facility] 0541 - CT CHEST WO IVCON [...] adrenal nodule and stable left adrenal thickening. Voice Teacher (topogram) images: Status post fusion of the [...] CT 06/2021 4. Former cigarette smoker -Former [id number] smoker having quit in 1999 with sequelae of lung cancer and emphysema -Continued tobacco free state Oscar Mireles MD [facility] documented in this encounter [facility] 04-28-2021 Note HNO ID: [id number] Author: Shae La, CT Service: Radiology Author Type: Technologist Type: Progress [...] PERIPHERAL IV DATA: Not applicable SIGNED BY: JOHN Lucero April 28, 2021 11:55 AM [facility] 08-21-2020 History of Past i llness Narrative Problem Noted Date Resolved Date Malignant neoplasm of unspec ified part of unspecified bronchus or lung 08/21/2020 09/10/2021 Diarrhea 04/06/2009 02/04/2021 documented as of this encounter (statuses as of 09/10/2021) [facility]2021 History of Past illness Narrative* Problem Noted Date Resolved Date Malignant neoplasm of unspec ified part of unspecified bronchus or lung 08/21/2020 09/10/2021 Diarrhea 04/06/2009 02/04/2021 documented as of this encounter (statuses as of 10/08/2021) [facility] History of Past illness Narrative* Problem Noted Date Resolved Date Malignant neoplasm of unspec ified part of unspecified bronchus or lung 08/21/2020 09/10/2021 Diarrhea 04/06/2009 02/04/2021 documented as of this encounter (statuses as of 10/09/2021) [facility] History of Past illness Narrative* Problem Noted Date Resolved Date Malignant neoplasm of unspec ified part of unspecified bronchus or lung 08/21/2020 09/10/2021 Diarrhea 04/06/2009 02/04/2021 documented as of this encounter (statuses as of 10/12/2021) [place] [id number] History of Past illness Narrative* Problem Noted Date Resolved Date Malignant neoplasm of unspec ified part of unspecified bronchus or lung 08/21/2020 09/10/2021 Diarrhea 04/06/2009 02/04/2021 documented as of this encounter (statuses as of 10/12/2021) [address]-2021 History of Past illness Narrative* Problem Noted Date Resolved Date Malignant neoplasm of unspec ified part of unspecified bronchus or lung 08/21/2020 09/10/2021 Diarrhea 04/06/2009 02/04/2021 documented as of this encounter (statuses as of 10/12/2021) [address] History of Past illness Narrative* Problem Noted Date Resolved Date Malignant neoplasm of unspec ified part of unspecified bronchus or lung 08/21/2020 09/10/2021 Diarrhea 04/06/2009 02/04/2021 documented as of this encounter (statuses as of 10/14/2021) [address]21 History of Past illness Narrative* Problem Noted Date Resolved Date Malignant neoplasm of unspec ified part of unspecified bronchus or lung 08/21/2020 09/10/2021 Diarrhea 04/06/2009 02/04/2021 documented as of this encounter (statuses as of 10/15/2021) [address]2021 History of Past illness Narrative* Problem Noted Date Resolved Date Malignant neoplasm of unspec ified part of unspecified bronchus or lung 08/21/2020 09/10/2021 Diarrhea 04/06/2009 02/04/2021 documented as of this encounter (statuses as of 10/16/2021) [address]21 History of Past illness Narrative* Problem Noted Date Resolved Date Malignant neoplasm of unspec ified part of unspecified bronchus or lung 08/21/2020 09/10/2021 Diarrhea 04/06/2009 02/04/2021 documented as of this encounter (statuses as of 10/18/2021) [address]21 History of Past illness Narrative* Problem Noted Date Resolved Date Malignant neoplasm of unspec ified part of unspecified bronchus or lung 08/21/2020 09/10/2021 Diarrhea 04/06/2009 02/04/2021 documented as of this encounter (statuses as of 10/19/2021) [address]-2021 History of Past illness Narrative* Problem Noted Date Resolved Date Malignant neoplasm of unspec ified part of unspecified bronchus or lung 08/21/2020 09/10/2021 Diarrhea 04/06/2009 02/04/2021 documented as of this encounter (statuses as of 10/20/2021) [address]-2021 History of Past illness Narrative* Problem Noted Date Resolved Date Malignant neoplasm of unspec ified part of unspecified bronchus or lung 08/21/2020 09/10/2021 Diarrhea 04/06/2009 02/04/2021 documented as of this encounter (statuses as of 10/20/2021) [address]2021 History of Past illness Narrative* Problem Noted Date Resolved Date Malignant neoplasm of unspec ified part of unspecified bronchus or lung 08/21/2020 09/10/2021 Diarrhea 04/06/2009 02/04/2021 documented as of this encounter (statuses as of 10/22/2021) [address]-2021 History of Past illness Narrative* Problem Noted Date Resolved Date Malignant neoplasm of unspec ified part of unspecified bronchus or lung 08/21/2020 09/10/2021 Diarrhea 04/06/2009 02/04/2021 documented as of this encounter (statuses as of 11/01/2021) [address]-2021 History of Past illness Narrative* Problem Noted Date Resolved Date Malignant neoplasm of unspec ified part of unspecified bronchus or lung 08/21/2020 09/10/2021 Diarrhea 04/06/2009 02/04/2021 documented as of this encounter (statuses as of 11/02/2021) [address]-2021 History of Past illness Narrative* Problem Noted Date Resolved Date Malignant neoplasm of unspec ified part of unspecified bronchus or lung 08/21/2020 09/10/2021 Diarrhea 04/06/2009 02/04/2021 documented as of this encounter (statuses as of 11/02/2021) [address]-2021 History of Past illness Narrative* Problem Noted Date Resolved Date Malignant neoplasm of unspec ified part of unspecified bronchus or lung 08/21/2020 09/10/2021 Diarrhea 04/06/2009 02/04/2021 documented as of this encounter (statuses as of 11/05/2021) [address]21 History of Past illness Narrative* Problem Noted Date Resolved Date Malignant neoplasm of unspec ified part of unspecified bronchus or lung 08/21/2020 09/10/2021 Diarrhea 04/06/2009 02/04/2021 documented as of this encounter (statuses as of 11/09/2021) [address]2021 History of Past illness Narrative* Problem Noted Date Resolved Date Malignant neoplasm of unspec ified part of unspecified bronchus or lung 08/21/2020 09/10/2021 Diarrhea 04/06/2009 02/04/2021 documented as of this encounter (statuses as of 11/10/2021) [address]21 History of Past illness Narrative* Problem Noted Date Resolved Date Malignant neoplasm of unspec ified part of unspecified bronchus or lung 08/21/2020 09/10/2021 Diarrhea 04/06/2009 02/04/2021 documented as of this encounter (statuses as of 11/12/2021) [address]21 History of Past illness Narrative* Problem Noted Date Resolved Date Malignant neoplasm of unspec ified part of unspecified bronchus or lung 08/21/2020 09/10/2021 Diarrhea 04/06/2009 02/04/2021 documented as of this encounter (statuses as of 11/12/2021) [address]21 History of Past illness Narrative* Problem Noted Date Resolved Date Malignant neoplasm of unspec ified part of unspecified bronchus or lung 08/21/2020 09/10/2021 Diarrhea 04/06/2009 02/04/2021 documented as of this encounter (statuses as of 11/15/2021) [address]21 History of Past illness Narrative* Problem Noted Date Resolved Date Malignant neoplasm of unspec ified part of unspecified bronchus or lung 08/21/2020 09/10/2021 Diarrhea 04/06/2009 02/04/2021 documented as of this encounter (statuses as of 11/18/2021) [place] [id number] History of Past illness Narrative* Problem Noted Date Resolved Date Malignant neoplasm of unspec ified part of unspecified bronchus or lung 08/21/2020 09/10/2021 Diarrhea 04/06/2009 02/04/2021 documented as of this encounter (statuses as of 11/26/2021) [address]-[address]21 History of Past illness Narrative* Problem Noted Date Resolved Date Malignant neoplasm of unspec ified part of unspecified bronchus or lung 08/21/2020 09/10/2021 Diarrhea 04/06/2009 02/04/2021 documented as of this encounter (statuses as of 11/29/2021) [address]21 History of Past illness Narrative* Problem Noted Date Resolved Date Malignant neoplasm of unspec ified part of unspecified bronchus or lung 08/21/2020 09/10/2021 Diarrhea 04/06/2009 02/04/2021 documented as of this encounter (statuses as of 11/29/2021) [address]2021 History of Past illness Narrative* Problem Noted Date Resolved Date Malignant neoplasm of unspec ified part of unspecified bronchus or lung 08/21/2020 09/10/2021 Diarrhea 04/06/2009 02/04/2021 documented as of this encounter (statuses as of 12/05/2021) [address]-2021 History of Past illness Narrative* Problem Noted Date Resolved Date Malignant neoplasm of unspec ified part of unspecified bronchus or lung 08/21/2020 09/10/2021 Diarrhea 04/06/2009 02/04/2021 documented as of this encounter (statuses as of 12/06/2021) [address]2021 History of Past illness Narrative* Problem Noted Date Resolved Date Malignant neoplasm of unspec ified part of unspecified bronchus or lung 08/21/2020 09/10/2021 Diarrhea 04/06/2009 02/04/2021 documented as of this encounter (statuses as of 12/09/2021) [address]2021 History of Past illness Narrative* Problem Noted Date Resolved Date Malignant neoplasm of unspec ified part of unspecified bronchus or lung 08/21/2020 09/10/2021 Diarrhea 04/06/2009 02/04/2021 documented as of this encounter (statuses as of 12/09/2021) [address]16-2021 History of Past illness Narrative* Problem Noted Date Resolved Date Malignant neoplasm of unspec ified part of unspecified bronchus or lung 08/21/2020 09/10/2021 Diarrhea 04/06/2009 02/04/2021 documented as of this encounter (statuses as of 12/10/2021) [address]16-2021 History of Past illness Narrative* Problem Noted Date Resolved Date Malignant neoplasm of unspec ified part of unspecified bronchus or lung 08/21/2020 09/10/2021 Diarrhea 04/06/2009 02/04/2021 documented as of this encounter (statuses as of 12/13/2021) [address]16-2021 History of Past illness Narrative* Problem Noted Date Resolved Date Malignant neoplasm of unspec ified part of unspecified bronchus or lung 08/21/2020 09/10/2021 Diarrhea 04/06/2009 02/04/2021 documented as of this encounter (statuses as of 01/05/2022) [address]-2021 History of Past illness Narrative* Problem Noted Date Resolved Date Malignant neoplasm of unspec ified part of unspecified bronchus or lung 08/21/2020 09/10/2021 Diarrhea 04/06/2009 02/04/2021 documented as of this encounter (statuses as of 01/24/2022) [address]16-2021 History of Past illness Narrative* Problem Noted Date Resolved Date Malignant neoplasm of unspec ified part of unspecified bronchus or lung 08/21/2020 09/10/2021 Diarrhea 04/06/2009 02/04/2021 documented as of this encounter (statuses as of 02/02/2022) [address]16-2021 History of Past illness Narrative* Problem Noted Date Resolved Date Malignant neoplasm of unspec ified part of unspecified bronchus or lung 08/21/2020 09/10/2021 Diarrhea 04/06/2009 02/04/2021 documented as of this encounter (statuses as of 02/07/2022) [address]16-2021 History of Past illness Narrative* Problem Noted Date Resolved Date Malignant neoplasm of unspec ified part of unspecified bronchus or lung 08/21/2020 09/10/2021 Diarrhea 04/06/2009 02/04/2021 documented as of this encounter (statuses as of 02/09/2022) [address]2021 History of Past illness Narrative* Problem Noted Date Resolved Date Malignant neoplasm of unspec ified part of unspecified bronchus or lung 08/21/2020 09/10/2021 Diarrhea 04/06/2009 02/04/2021 documented as of this encounter (statuses as of 02/18/2022) [address]2021 History of Past illness Narrative* Problem Noted Date Resolved Date Malignant neoplasm of unspec ified part of unspecified bronchus or lung 08/21/2020 09/10/2021 Diarrhea 04/06/2009 02/04/2021 documented as of this encounter (statuses as of 04/11/2022) [address]16-2021 History of Past illness Narrative* Problem Noted Date Resolved Date Malignant neoplasm of unspec ified part of unspecified bronchus or lung 08/21/2020 09/10/2021 Diarrhea 04/06/2009 02/04/2021 documented as of this encounter (statuses as of 04/19/2022) [address]2021 History of Past illness Narrative* Problem Noted Date Resolved Date Malignant neoplasm of unspec ified part of unspecified bronchus or lung 08/21/2020 09/10/2021 Diarrhea 04/06/2009 02/04/2021 documented as of this encounter (statuses as of 06/07/2022) [address]2021 History of Past illness Narrative* Problem Noted Date Resolved Date Malignant neoplasm of unspec ified part of unspecified bronchus or lung 08/21/2020 09/10/2021 Diarrhea 04/06/2009 02/04/2021 documented as of this encounter (statuses as of 07/08/2022) [address]2021 History of Past illness Narrative* Problem Noted Date Resolved Date Malignant neoplasm of unspec ified part of unspecified bronchus or lung 08/21/2020 09/10/2021 Diarrhea 04/06/2009 02/04/2021 documented as of this encounter (statuses as of 07/11/2022) [place] [address] History of Past illness Narrative* Problem Noted Date Resolved Date Malignant neoplasm of unspec ified part of unspecified bronchus or lung 08/21/2020 09/10/2021 Diarrhea 04/06/2009 02/04/2021 documented as of this encounter (statuses as of 07/11/2022) [address]-2021 History of Past illness Narrative* Problem Noted Date Resolved Date Malignant neoplasm of unspec ified part of unspecified bronchus or lung 08/21/2020 09/10/2021 Diarrhea 04/06/2009 02/04/2021 documented as of this encounter (statuses as of 08/26/2022) [address]16-2021 History of Past illness Narrative* Problem Noted Date Resolved Date Malignant neoplasm of unspec ified part of unspecified bronchus or lung 08/21/2020 09/10/2021 Diarrhea 04/06/2009 02/04/2021 documented as of this encounter (statuses as of 08/29/2022) [address]-2021 History of Past illness Narrative*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 emphysema documented [facility] Diagnosis C. difficile diarrhea [...] or lung (HCC) [facility]* Diagnosis C. difficile diarrhea [...] and respiratory abnormality [facility]* Diagnosis C. difficile diarrhea [...] Bacterial pneumonia, unspecified [facility]* Diagnosis C. difficile diarrhea [...] Bacterial pneumonia, unspecified documented in this encounter [facility] note* Diagnosis C. difficile diarrhea Intestinal infection [...] Swelling of limb [facility]* Diagnosis C. difficile diarrhea [...] acute or chronic documented [facility]* Diagnosis C. difficile diarrhea [...] not elsewhere classified [facility]* Diagnosis C. difficile diarrhea [...] not elsewhere classified [facility]* Diagnosis C. difficile diarrhea [...] due to radiation documented in this encounter [facility] note* Diagnosis C. difficile diarrhea Intestinal infection [...] of lung (HCC) [facility] Diagnosis C. difficile diarrhea Intestinal infection [...] hypercholesterolemia, unspecified Preop examination Preoperative examination, unspecified Productive cough- Primary Cough Moderate COPD (chronic obstructive pulmonary disease) (HCC) Chronic airway obstruction, not elsewhere classified Bronchiectasis without complication (HCC) Bronchiectasis without acute exacerbation documented in this encounter [facility] note* Diagnosis C. difficile diarrhea Intestinal infection [...] hypercholesterolemia, unspecified Preop examination Preoperative examination, unspecified Wellness examination- Primary Primary cancer of right lower lobe of lung (HCC) Pure hypercholesterolemia, unspecified Encounter for immunization Need for other specified prophylactic vaccination against single bacterial disease Primary insomnia Persistent disorder of initiating or maintaining sleep Restless leg syndrome Restless legs syndrome (RLS) Paroxysmal atrial fibrillation (HCC) Atrial fibrillation Hypertension, essential Unspecified essential hypertension Stage 3b chronic kidney disease (HCC) Chronic pain due to trauma Sinus congestion Other diseases of nasal cavity and sinuses Medicare annual wellness visit, subsequent Routine general medical examination at a health care facility documented in this encounter [facility] note* Diagnosis C. difficile diarrhea Intestinal infection [...] hypercholesterolemia, unspecified Preop examination Preoperative examination, unspecified Pure hypercholesterolemia, unspecified documented in this encounter [facility] note* Diagnosis C. difficile diarrhea Intestinal infection [...] or lung (HCC) [facility] Diagnosis C. difficile diarrhea [...] of lung (HCC) [facility] Name Dates Details How to access health [...] Referred By Lelia weiss Referred To Contact [facility] Diagnoses Other iron deficiency anemia Procedures EGD DIAGNOSTIC ESOPHAGOGASTRODUODENOS COPY [facility] Jhonathan Reyna MD [address] [place] [address] [facility] [place] [address] [place] [address] Referral ID Status Reason Start Date Expiration Date Visits Requested Visits Authorized [id number] Authorized Auto-Generat ed Referral 10/12/2021 10/12/2022 1 1 [facility] for referral (narrative)* Outpatient Procedure (Routine) - Pending Review Specialty Diagnoses / Procedures Referred By Contac t Referred To [facility] Diagnoses Other iron deficiency anemia Procedures EGD DIAGNOSTIC ESOPHAGOGASTRODUODENOS COPY TRANSORAL DIAGNOSTIC Jhonathan Reyna MD [address] [place] [address] [address] Referral ID Status Reason Start Date Expiration Date Visits Requested Visits Authorized [id number] Pending Review Auto-Generat ed Referral 10/18/2021 10/18/2022 1 1 [facility] for referral (narrative)* Outpatient Procedure (Routine) - Closed Specialty Diagnoses / Procedures Referred By Lelia weiss Referred To [facility] Diagnoses Other iron deficiency anemia Procedures EGD DIAGNOSTIC ESOPHAGOGASTRODUODENOS COPY TRANSORAL DIAGNOSTIC Jhonathan Reyna MD [address] [address] [address] [place] [address] Referral ID Status Reason Start Date Expiration Date V isits Requested Visits Authorized [id number] Closed Auto-Generate d Referral 10/18/2021 10/18/2022 1 1 [facility] for referral (narrative)* Outpatient Procedure (Routine) - Authorized Specialty Diagnoses / Procedures [facility] Diagnoses Gastrointestinal hemorrhage, unspecified gastrointestinal hemorrhage type Intussusception (HCC) Procedures CAPSULE ENDOSCOPY SMALL BOWEL GI TRC IMG INTRALUMINAL ESOPHAGUS-ILEUM W/I&R Jhonathan Reyna MD [address] [place] [address] [address] Referral ID Status Reason Start Date Expiration Date Visits Requested Visits Authorized [id number] Authorized Auto-Generat ed Referral 11/29/2021 11/29/2022 1 1 [facility] for referral (narrative)* Outpatient Procedure (Routine) - Closed Specialty Diagnoses / Procedures Referred By Contac t Referred To [facility] Diagnoses Moderate COPD (chronic obstructive pulmonary disease) (HCC) Diaphragm paralysis Procedures OXIMETRY WITH AMBULATION NONINVASIVE EAR/[place] [address] [place] [address] [facility] [place] [address] [place] [id number] Referral ID Status Reason Start Date Expiration Date V isits Requested Visits Authorized [id number] Closed Auto-Generate d Referral 12/06/2022 01/05/2024 1 1 [facility] for referral (narrative)* Outpatient Procedure (Routine) - Closed Specialty Diagnoses / Procedures Referred By Contac t Referred To Contact [facility] Diagnoses C. difficile diarrhea Iron deficiency anemia, unspecified iron deficiency anemia type Elevated fecal calprotectin Procedures COLONOSCOPY DIAGNOSTIC COLONOSCOPY DIAGNOSTIC COLONOSCOPY FLX DX W/COLLJ SPEC WHEN PFRMD Jayne Woods PA-C [address] [place] [address] [facility] [place] [address] [place] [address] Referral ID Status Reason Start Date Expiration Date V isits Requested Visits Authorized [id number] Closed Auto-Generate d Referral 04/21/2023 04/21/2024 1 1 [facility] for referral (narrative)* Diagnostic Procedure Only (Routine) - New Request Specialty Diagnoses / Procedures Referred By Contac t Referred To Contact XR IMAGING Diagnoses Asymptomatic menopause Procedures DXA-AXIAL SKELETON DXA BONE DENSITY STUDY 1/> SITES AXIAL Dennis Bradford MD [address] [place] [address] [place] [address] Referral ID Status Reason Start Date Expiration Date Visits Requested Visits Authorized [id number] New Request Auto-Generat ed Referral 4 05/17/2025 1 1 * Diagnostic Procedure Only (Routine) - New Request Specialty Diagnoses / Procedures Referred By Lelia t Referred To Contact BR [facility] Diagnoses Encounter for screening mammogram for breast cancer Procedures JERALD SCREENING W OBIE SCREENING DIGITAL BREAST TOMOSYNTHESIS BI SCREENING MAMMOGRAPHY BI 2-VIEW BREAST INC CAD Dennis Marcial MD [address] [place] [address] [facility] [address] [place] [address] Referral ID Status Reason Start Date Expiration Date Visits Requested Visits Authorized [id number] New Request Auto-Generat ed Referral 4 05/17/2025 1 1 [facility] for referral (narrative)* Diagnostic Procedure Only (Urgent) - Closed Specialty Diagnoses / Procedures Referred By Lelia t Referred To Contact XR IMAGING Diagnoses Pain Procedures XR FOOT GENERAL 3V AP/LAT/OBL RIGHT RADEX FOOT COMPLETE MINIMUM 3 VIEWS Tima López APRN.QUALITY ENGINEER MEDICAL DEVICE [address] [place] [address] [place] [address] Referral ID Status Reason Start Date Expiration Date V isits Requested Visits Authorized [id number] Closed Auto-Generate d Referral 05/09/2024 06/08/2025 1 1 [facility] for referral (narrative)* Diagnostic Procedure Only (Routine) - Closed Specialty Diagnoses / Procedures Referred By Lelia t Referred To Contact BR [facility] Diagnoses Encounter for screening mammogram for breast cancer Procedures JERALD SCREENING W OBIE SCREENING DIGITAL BREAST TOMOSYNTHESIS BI SCREENING MAMMOGRAPHY BI 2-VIEW BREAST INC CAD Dennis Marcial MD [address] [place] [address] Br Imaging [address] [place] [address] Referral ID Status Reason Start Date Expiration Date V isits Requested Visits Authorized [id number] Closed Auto-Generate d Referral 04/17/2024 05/17/2025 1 1 [facility] for referral (narrative)No reason for referral information availableWCl[facility] Work Phone: Reason for visit Narrative* Outpatient Procedure (Routine) - Closed Specialty Diagnoses / Procedures Referred By Contac t Referred To Contact [facility] Diagnoses Other iron deficiency anemia Procedures EGD DIAGNOSTIC ESOPHAGOGASTRODUODENOS COPY TRANSORAL DIAGNOSTIC Jhonathan Reyna MD [address] [place] [address] [facility] [place] [address] [place] [address] Referral ID Status Reason Start Date Expiration Date V isits Requested Visits Authorized [id number] Closed Auto-Generate d Referral 10/18/2021 10/18/2022 1 1 [facility] for visit Narrative* Outpatient Procedure (Routine) - Closed Specialty Diagnoses / Procedures Referred By Contac t Referred To Contact [facility] Diagnoses C. difficile diarrhea Iron deficiency anemia, unspecified iron deficiency anemia type Elevated fecal calprotectin Procedures COLONOSCOPY DIAGNOSTIC COLONOSCOPY DIAGNOSTIC COLONOSCOPY FLX DX W/COLLJ SPEC WHEN PFRMD Jayne Woods PA-C [address] [place] [address] Dig[facility] Disease [address] [address] Referral ID Status Reason Start Date Expiration Date V isits Requested Visits Authorized [id number] Closed Auto-Generate d Referral 04/21/2023 04/21/2024 1 1 [facility] for visit Narrative* Diagnostic Procedure Only (Urgent) - Closed Specialty Diagnoses / Procedures Referred By Contac t Referred To Contact XR IMAGING Diagnoses Pain Procedures XR FOOT GENERAL 3V AP/LAT/OBL RIGHT RADEX FOOT COMPLETE MINIMUM 3 VIEWS Tima López APRN.QUALITY ENGINE[employer] [address] [place] [address] [place] [address] Referral ID Status Reason Start Date Expiration Date V isits Requested Visits Authorized [id number] Closed Auto-Generate d Referral 05/09/2024 06/08/2025 1 1 [facility] for visit Narrative* Diagnostic Procedure Only (Routine) - Closed Specialty Diagnoses / Procedures Referred By Contac t Referred To Contact BR [facility] Diagnoses Encounter for screening mammogram for breast cancer Procedures JERALD SCREENING W OBIE SCREENING DIGITAL BREAST TOMOSYNTHESIS BI SCREENING MAMMOGRAPHY BI 2-VIEW BREAST INC CAD Dennis Marcial MD [address] [place] [address] Br Imaging [address] [place] [address] Referral ID Status Reason Start Date Expiration Date V isits Requested Visits Authorized [id number] Closed Auto-Generate d Referral 04/17/2024 05/17/2025 1 1 [facility] for visit Narrative* Diagnostic Procedure Only (Routine) - Closed Specialty Diagnoses / Procedures Referred By Contac t Referred To Contact XR IMAGING Diagnoses Asymptomatic menopause Procedures DXA-AXIAL SKELETON DXA BONE DENSITY STUDY SITES AXIAL SKEL Dennis Marcial MD [address] [place] [address] [place] [address] Referral ID Status Reason Start Date Expiration Date V isits Requested Visits Authorized [id number] Closed Auto-Generate d Referral 04/17/2024 05/17/2025 1 1 [facility] for visit Narrative* MRI/CT (Routine) - Closed Specialty Diagnoses / Procedures Referred By Contac t Referred To Contact CT IMAGING Diagnoses Malignant neoplasm of unspecified part of unspecified bronchus or lung (HCC) Procedures CT CHEST WO IVCON DIAGNOSTIC COMPUTED TOMOGRAPHY THORAX W/[place] [address] Phone: tel: fax: [place] [address] Referral ID Status Reason Start Date Expiration Date V isits Requested Visits Authorized [id number] Closed Auto-Generate d Referral 12/25/2024 07/27/2025 1 1 [facility] Advance Directives Documents on File Type Date Recorded Patient Lead Qa Analyst Expl anation Advance Directive(s) 02/04/2021 7:50 AM Advance Directive(s) 01/20/2021 10:03 AM Advance Directive(s) 06/18/2020 7:00 PM Advance Directive(s) 03/12/2020 10:57 AM Documents on File Type Date Recorded Patient Lead Qa Analyst Expl anation Advance Directive(s) 02/04/2021 7:50 AM Advance Directive(s) 01/20/2021 10:03 AM Advance Directive(s) 06/18/2020 7:00 PM Advance Directive(s) 03/12/2020 10:57 AM Advance Directive Response Recorded Date/ Time Living Will Yes November 12, 2020 3 :06pm Power of Veterinary Bacteriologist Yes November 12, 2020 3:06pm Documents on File Type Date Recorded Patient Lead Qa Analyst Expl anation Advance Directive(s) 11/03/2021 10:13 AM Advance Directive(s) 02/04/2021 7:50 AM Advance Directive(s) 01/20/2021 10:03 AM Advance Directive(s) 06/18/2020 7:00 PM Advance Directive(s) 03/12/2020 10:57 AM Documents on File Type Date Recorded Patient Lead Qa Analyst Expl anation Advance Directive(s) 11/17/2021 9:09 AM Advance Directive(s) 11/17/2021 9:54 AM Advance Directive(s) 11/03/2021 10:13 AM Advance Directive(s) 02/04/2021 7:50 AM Advance Directive(s) 01/20/2021 10:03 AM Advance Directive(s) 06/18/2020 7:00 PM Advance Directive(s) 03/12/2020 10:57 AM Documents on File Type Date Recorded Patient Lead Qa Analyst Expl anation Advance Directive(s) 11/17/2021 9:09 AM Advance Directive(s) 11/17/2021 9:54 AM Advance Directive(s) 11/03/2021 10:13 AM Advance Directive(s) 02/04/2021 7:50 AM Advance Directive(s) 01/20/2021 10:03 AM Advance Directive(s) 06/18/2020 7:00 PM Advance Directive(s) 03/12/2020 10:57 AM Advance Directive Response Recorded Date/ Time Living Will Yes November 12, 2020 2 :06pm Power of Veterinary Bacteriologist Yes November 12, 2020 2:06pm Advance Directive Response Recorded Date/ Time Living Will Yes June 08 4:10pm Do you have a Healthcare Power of Veterinary Bacteriologist? Yes June 08, 2024 4:10pm Name of Medical Power of Veterinary Bacteriologist . June 08, 2024 4:10pm Reason for Referral Specialty Diagnoses / Procedures Referred By Contac t Referred To Contact CT IMAGING Diagnoses Malignant neoplasm of unspecified part of unspecified bronchus or lung (HCC) Procedures CT CHEST WO IVCON DIAGNOSTIC COMPUTED TOMOGRAPHY THORAX W/O CNTRST Carolina Lambert MD [address] [place] [address] Ct Imaging Referral ID Status Reason Start Date Expiration Date V isits Requested Visits Authorized [id number] Closed Auto-Generate d Referral 10/08/2021 08/07/2022 1 1 Referral ID Status Reason Start Date Expiration Date Visits Requested Visits Authorized [id number] Authorized Auto-Generat ed Referral 02/03/2023 1 1 Specialty Diagnoses / Procedures Referred By Contac t Referred To Contact Nephrology Diagnoses Renal insufficiency Procedures CONSULT TO KIDNEY MEDICINE Dennis Marcial MD [address] [place] [address] [address] Referral ID Status Reason Start Date Expiration Date Visits Requested Visits Authorized [id number] Ref Not Required PCP Requested Referral 02/07/2022 02/07/2023 1 1 Specialty Diagnoses / Procedures Referred By Contac t Referred To Contact Rheumatology Diagnoses Polyarthritis Procedures CONSULT TO RHEUM/IMMUN DISEASE OFFICE/OUTPATIENT [facility] 60-74 MINUTES Dennis Marcial MD [address] [place] [address] Referral ID Status Reason Start Date Expiration Date Visits Requested Visits Authorized [id number] Authorized PCP Requested Referral 08/29/2022 08/29/2023 1 1 Specialty Diagnoses / Procedures Referred By Contac t Referred To Contact Diagnoses Primary cancer of right lower lobe of lung (HCC) Rib pain Other chest pain Dennis Marcial MD [address] [place] [address] Referral ID Status Reason Start Date Expiration Date Visits Re quested Visits Authorized [id number] Closed 1 1 Specialty Diagnoses / Procedures Referred By Contac t Referred To Contact CT IMAGING Diagnoses Malignant neoplasm of unspecified part of unspecified bronchus or lung (HCC) Procedures CT CHEST WO IVCON DIAGNOSTIC COMPUTED TOMOGRAPHY THORAX W/[place] [address] [place] [address] Ct Imaging Referral ID Status Reason Start Date Expiration Date Visits Requested Visits Authorized [id number] Authorized Auto-Generat ed Referral 06/02/2022 01/06/2024 1 1 Specialty Diagnoses / Procedures Referred By Contac t Referred To Contact Gastroenterology Diagnoses Diarrhea, unspecified type Procedures CONSULT TO GASTROENTEROLOGY OFFICE/OUTPATIENT [facility] 60-74 MINUTES Jaspreet Curtis, FACILITY EXAMINER.QUALITY ENGINEER MEDICAL DEVICE [address] [place] [address] Referral ID Status Reason Start Date Expiration Date Visits Requested Visits Authorized [id number] Authorized PCP Requested Referral 01/07/2023 01/07/2024 1 1 Specialty Diagnoses / Procedures Referred By Contac t Referred To Contact CT IMAGING Diagnoses Malignant neoplasm of unspecified part of unspecified bronchus or lung (HCC) Procedures CT CHEST WO IVCON DIAGNOSTIC COMPUTED TOMOGRAPHY THORAX W/O CNTRST Carolina Lambert MD [address] [place] [address] [place] [address] Referral ID Status Reason Start Date Expiration Date V isits Requested Visits Authorized [id number] Closed Auto-Generate d Referral 04/06/2022 02/03/2023 1 1 Specialty Diagnoses / Procedures Referred By Contac t Referred To Contact CT IMAGING Diagnoses Malignant neoplasm of unspecified part of unspecified bronchus or lung (HCC) Procedures CT CHEST WO IVCON DIAGNOSTIC COMPUTED TOMOGRAPHY THORAX W/[place] [address] [id number] [place] [address] Referral ID Status Reason Start Date Expiration Date V isits Requested Visits Authorized [id number] Closed Auto-Generate d Referral 06/02/2022 01/06/2024 1 1 Referral ID Status Reason Start Date Expiration Date Visits Requested Visits Authorized [id number] Authorized Auto-Generat ed Referral 06/21/2023 07/20/2024 1 1 Referral ID Status Reason Start Date Expiration Date Visits Requested Visits Authorized [id number] Authorized Auto-Generat ed Referral 12/26/2023 01/24/2025 1 1 Specialty Diagnoses / Procedures Referred By Contac t Referred To Contact Podiatry Diagnoses Pain Procedures CONSULT TO PODIATRY OFFICE/OUTPATIENT [facility] 60 MINUTES Tima López APRN.QUALITY ENGINEER [employer]ICE [address] [place] [address] Referral ID Status Reason Start Date Expiration Date Visits Requested Visits Authorized [id number] Authorized PCP Requested Referral 05/09/2024 05/09/2025 1 1 Specialty Diagnoses / Procedures Referred By Contac t Referred To Contact XR IMAGING Diagnoses Pain Procedures XR FOOT GENERAL 3V AP/LAT/OBL RIGHT RADEX FOOT COMPLETE MINIMUM 3 VIEWS Tima López APRN.QUALITY ENGINEER MEDICAL DEVICE [address] [place] [address] [place] [address] Referral ID Status Reason Start Date Expiration Date V isits Requested Visits Authorized [id number] Closed Auto-Generate d Referral 05/09/2024 06/08/2025 1 [...] COPY PCP July 22, 2024 7:0 5am Chief Complaint Admit Date PAIN- COPY PCP July 22, 2024 7:0 5am PAIN- COPY PCP October 21, 2024 7:02 am Chief Complaint Admit Date PAIN- COPY PCP October 21, 2024 7:02 am 11 M FU November 26, 2024 1:59 pm Family History Relationship Condition Age at Onset Recorded Date/T denise Not Specified Cardiac disease Unknown Malignant neoplasm Unknown Medications Administered Section Inactive Administered Medications - up to 3 most recent administrations Medication Order MAR Action Action Date Dose Rate Site iron sucrose 200 mg in NaCl 0.9% 100ml (VENOFER) 200 mg, INTRAVENOUS, at 400 mL/hr, Administer over 15 Minutes, ONCE, 1 dose, On Mon10/14/21 at 1400, Please conduct a 30 minute [...] Date Dose Rate Site benzocaine 20% 2 Auberry (TOPEX) 2 Auberry, TOPICAL, ONCE, 1 dose, On Mon11/17/21 at [...] or prosecute any alcohol or drug abuse patient.[facility] the event this information is protected by the Federal Confidentiality of Alcohol and Drug Abuse Patient Records regulations: The Federal rules restrict any use of the information to criminally investigate or prosecute any alcohol or drug abuse patient.[facility] the event this information is protected by the Federal Confidentiality of Alcohol and Drug Abuse Patient Records regulations: The Federal rules restrict any use of the information to criminally investigate or prosecute any alcohol or drug abuse patient.[facility] the event this information is protected by the Federal Confidentiality of Alcohol and Drug Abuse Patient Records regulations: The Federal rules restrict any use of the information to criminally investigate or prosecute any alcohol or drug abuse patient.[facility] the event this information is protected by the Federal Confidentiality of Alcohol and Drug Abuse Patient Records regulations: The Federal rules restrict any use of the information to criminally investigate or prosecute any alcohol or drug abuse patient.[facility] the event this information is protected by the Federal Confidentiality of Alcohol and Drug Abuse Patient Records regulations: The Federal rules restrict any use of the information to criminally investigate or prosecute any alcohol or drug abuse patient.[facility] the event this information is protected by the Federal Confidentiality of Alcohol and Drug Abuse Patient Records regulations: The Federal rules restrict any use of the information to criminally investigate or prosecute any alcohol or drug abuse patient.[facility] the event this information is protected by the Federal Confidentiality of Alcohol and Drug Abuse Patient Records regulations: The Federal rules restrict any use of the information to criminally investigate or prosecute any alcohol or drug abuse patient.[facility] the event this information is protected by the Federal Confidentiality of Alcohol and Drug Abuse Patient Records regulations: The Federal rules restrict any use of the information to criminally investigate or prosecute any alcohol or drug abuse patient.[facility] the event this information is protected by the Federal Confidentiality of Alcohol and Drug Abuse Patient Records regulations: The Federal rules restrict any use of the information to criminally investigate or prosecute any alcohol or drug abuse patient.[facility] the event this information is protected by the Federal Confidentiality of Alcohol and Drug Abuse Patient Records regulations: The Federal rules restrict any use of the information to criminally investigate or prosecute any alcohol or drug abuse patient.[facility] the event this information is protected by the Federal Confidentiality of Alcohol and Drug Abuse Patient Records regulations: The Federal rules restrict any use of the information to criminally investigate or prosecute any alcohol or drug abuse patient.[facility] the event this information is protected by the Federal Confidentiality of Alcohol and Drug Abuse Patient Records regulations: The Federal rules restrict any use of the information to criminally investigate or prosecute any alcohol or drug abuse patient.[facility] the event this information is protected by the Federal Confidentiality of Alcohol and Drug Abuse Patient Records regulations: The Federal rules restrict any use of the information to criminally investigate or prosecute any alcohol or drug abuse patient.[facility] the event this information is protected by the Federal Confidentiality of Alcohol and Drug Abuse Patient Records regulations: The Federal rules restrict any use of the information to criminally investigate or prosecute any alcohol or drug abuse patient.[facility] the event this information is protected by the Federal Confidentiality of Alcohol and Drug Abuse Patient Records regulations: The Federal rules restrict any use of the information to criminally investigate or prosecute any alcohol or drug abuse patient.[facility] the event this information is protected by the Federal Confidentiality of Alcohol and Drug Abuse Patient Records regulations: The Federal rules restrict any use of the information to criminally investigate or prosecute any alcohol or drug abuse patient.[facility] the event this information is protected by the Federal Confidentiality of Alcohol and Drug Abuse Patient Records regulations: The Federal rules restrict any use of the information to criminally investigate or prosecute any alcohol or drug abuse patient.[facility]In the event this information is protected by the Federal Confidentiality of Alcohol and Drug Abuse Patient Records regulations: The Federal rules restrict any use of the information to criminally investigate or prosecute any alcohol or drug abuse patient.[facility] the event this information is protected by the Federal Confidentiality of Alcohol and Drug Abuse Patient Records regulations: The Federal rules restrict any use of the information to criminally investigate or prosecute any alcohol or drug abuse patient.[facility] the event this information is protected by the Federal Confidentiality of Alcohol and Drug Abuse Patient Records regulations: The Federal rules restrict any use of the information to criminally investigate or prosecute any alcohol or drug abuse patient.[facility] the event this information is protected by the Federal Confidentiality of Alcohol and Drug Abuse Patient Records regulations: The Federal rules restrict any use of the information to criminally investigate or prosecute any alcohol or drug abuse patient.[facility] the event this information is protected by the Federal Confidentiality of Alcohol and Drug Abuse Patient Records regulations: The Federal rules restrict any use of the information to criminally investigate or prosecute any alcohol or drug abuse patient.[facility] the event this information is protected by the Federal Confidentiality of Alcohol and Drug Abuse Patient Records regulations: The Federal rules restrict any use of the information to criminally investigate or prosecute any alcohol or drug abuse patient.[facility]In the event this information is protected by the Federal Confidentiality of Alcohol and Drug Abuse Patient Records regulations: The Federal rules restrict any use of the information to criminally investigate or prosecute any alcohol or drug abuse patient.[facility]In the event this information is protected by the Federal Confidentiality of Alcohol and Drug Abuse Patient Records regulations: The Federal rules restrict any use of the information to criminally investigate or prosecute any alcohol or drug abuse patient.[facility]In the event this information is protected by the Federal Confidentiality of Alcohol and Drug Abuse Patient Records regulations: The Federal rules restrict any use of the information to criminally investigate or prosecute any alcohol or drug abuse patient.[facility]In the event this information is protected by the Federal Confidentiality of Alcohol and Drug Abuse Patient Records regulations: The Federal rules restrict any use of the information to criminally investigate or prosecute any alcohol or drug abuse patient.[facility]In the event this information is protected by the Federal Confidentiality of Alcohol and Drug Abuse Patient Records regulations: The Federal rules restrict any use of the information to criminally investigate or prosecute any alcohol or drug abuse patient.[facility]In the event this information is protected by the Federal Confidentiality of Alcohol and Drug Abuse Patient Records regulations: The Federal rules restrict any use of the information to criminally investigate or prosecute any alcohol or drug abuse patient.[facility]In the event this information is protected by the Federal Confidentiality of Alcohol and Drug Abuse Patient Records regulations: The Federal rules restrict any use of the information to criminally investigate or prosecute any alcohol or drug abuse patient.[facility]In the event this information is protected by the Federal Confidentiality of Alcohol and Drug Abuse Patient Records regulations: The Federal rules restrict any use of the information to criminally investigate or prosecute any alcohol or drug abuse patient.[facility]In the event this information is protected by the Federal Confidentiality of Alcohol and Drug Abuse Patient Records regulations: The Federal rules restrict any use of the information to criminally investigate or prosecute any alcohol or drug abuse patient.[facility]In the event this information is protected by the Federal Confidentiality of Alcohol and Drug Abuse Patient Records regulations: The Federal rules restrict any use of the information to criminally investigate or prosecute any alcohol or drug abuse patient.[facility] [place] [facility]In the event this information is protected by the Federal Confidentiality of Alcohol and Drug Abuse Patient Records regulations: The Federal rules restrict any use of the information to criminally investigate or prosecute any alcohol or drug abuse patient.[facility] [place] [facility]In the event this information is protected by the Federal Confidentiality of Alcohol and Drug Abuse Patient Records regulations: The Federal rules restrict any use of the information to criminally investigate or prosecute any alcohol or drug abuse patient.[facility] [place] [facility]In the event this information is protected by the Federal Confidentiality of Alcohol and Drug Abuse Patient Records regulations: The Federal rules restrict any use of the information to criminally investigate or prosecute any alcohol or drug abuse patient.[facility] [place] [facility]In the event this information is protected by the Federal Confidentiality of Alcohol and Drug Abuse Patient Records regulations: The Federal rules restrict any use of the information to criminally investigate or prosecute any alcohol or drug abuse patient.[facility] [place] [facility]In the event this information is protected by the Federal Confidentiality of Alcohol and Drug Abuse Patient Records regulations: The Federal rules restrict any use of the information to criminally investigate or prosecute any alcohol or drug abuse patient.[facility] [place] [facility]In the event this information is protected by the Federal Confidentiality of Alcohol and Drug Abuse Patient Records regulations: The Federal rules restrict any use of the information to criminally investigate or prosecute any alcohol or drug abuse patient.[facility] [place] [facility]In the event this information is protected by the Federal Confidentiality of Alcohol and Drug Abuse Patient Records regulations: The Federal rules restrict any use of the information to criminally investigate or prosecute any alcohol or drug abuse patient.[facility] [place] [facility]In the event this information is protected by the Federal Confidentiality of Alcohol and Drug Abuse Patient Records regulations: The Federal rules restrict any use of the information to criminally investigate or prosecute any alcohol or drug abuse patient.[facility] [place] [facility]In the event this information is protected by the Federal Confidentiality of Alcohol and Drug Abuse Patient Records regulations: The Federal rules restrict any use of the information to criminally investigate or prosecute any alcohol or drug abuse patient.[facility] [place] [facility]In the event this information is protected by the Federal Confidentiality of Alcohol and Drug Abuse Patient Records regulations: The Federal rules restrict any use of the information to criminally investigate or prosecute any alcohol or drug abuse patient.[facility] [place] [facility]In the event this information is protected by the Federal Confidentiality of Alcohol and Drug Abuse Patient Records regulations: The Federal rules restrict any use of the information to criminally investigate or prosecute any alcohol or drug abuse patient.[facility] [place] [facility]In the event this information is protected by the Federal Confidentiality of Alcohol and Drug Abuse Patient Records regulations: The Federal rules restrict any use of the information to criminally investigate or prosecute any alcohol or drug abuse patient.[facility] [place] [facility]In the event this information is protected by the Federal Confidentiality of Alcohol and Drug Abuse Patient Records regulations: The Federal rules restrict any use of the information to criminally investigate or prosecute any alcohol or drug abuse patient.[facility] [place] [facility]In the event this information is protected by the Federal Confidentiality of Alcohol and Drug Abuse Patient Records regulations: The Federal rules restrict any use of the information to criminally investigate or prosecute any alcohol or drug abuse patient.[facility] [place] [facility]In the event this information is protected by the Federal Confidentiality of Alcohol and Drug Abuse Patient Records regulations: The Federal rules restrict any use of the information to criminally investigate or prosecute any alcohol or drug abuse patient.[facility] [place] [facility]In the event this information is protected by the Federal Confidentiality of Alcohol and Drug Abuse Patient Records regulations: The Federal rules restrict any use of the information to criminally investigate or prosecute any alcohol or drug abuse patient.[facility] [place] [facility]In the event this information is protected by the Federal Confidentiality of Alcohol and Drug Abuse Patient Records regulations: The Federal rules restrict any use of the information to criminally investigate or prosecute any alcohol or drug abuse patient.[facility] [place] [facility]In the event this information is protected by the Federal Confidentiality of Alcohol and Drug Abuse Patient Records regulations: The Federal rules restrict any use of the information to criminally investigate or prosecute any alcohol or drug abuse patient.[facility] [place] [facility]In the event this information is protected by the Federal Confidentiality of Alcohol and Drug Abuse Patient Records regulations: The Federal rules restrict any use of the information to criminally investigate or prosecute any alcohol or drug abuse patient.[facility] [place] [facility]In the event this information is protected by the Federal Confidentiality of Alcohol and Drug Abuse Patient Records regulations: The Federal rules restrict any use of the information to criminally investigate or prosecute any alcohol or drug abuse patient.[facility] [place] [facility]In the event this information is protected by the Federal Confidentiality of Alcohol and Drug Abuse Patient Records regulations: The Federal rules restrict any use of the information to criminally investigate or prosecute any alcohol or drug abuse patient.[facility] [place] [facility]In the event this information is protected by the Federal Confidentiality of Alcohol and Drug Abuse Patient Records regulations: The Federal rules restrict any use of the information to criminally investigate or prosecute any alcohol or drug abuse patient.[facility] [place] [facility]In the event this information is protected by the Federal Confidentiality of Alcohol and Drug Abuse Patient Records regulations: The Federal rules restrict any use of the information to criminally investigate or prosecute any alcohol or drug abuse patient.[facility] [place] [facility]In the event this information is protected by the Federal Confidentiality of Alcohol and Drug Abuse Patient Records regulations: The Federal rules restrict any use of the information to criminally investigate or prosecute any alcohol or drug abuse patient.[facility] [place] [facility]In the event this information is protected by the Federal Confidentiality of Alcohol and Drug Abuse Patient Records regulations: The Federal rules restrict any use of the information to criminally investigate or prosecute any alcohol or drug abuse patient.[facility] [place] [facility]In the event this information is protected by the Federal Confidentiality of Alcohol and Drug Abuse Patient Records regulations: The Federal rules restrict any use of the information to criminally investigate or prosecute any alcohol or drug abuse patient.[facility] [place] [facility]In the event this information is protected by the Federal Confidentiality of Alcohol and Drug Abuse Patient Records regulations: The Federal rules restrict any use of the information to criminally investigate or prosecute any alcohol or drug abuse patient.[facility] [place] [facility]In the event this information is protected by the Federal Confidentiality of Alcohol and Drug Abuse Patient Records regulations: The Federal rules restrict any use of the information to criminally investigate or prosecute any alcohol or drug abuse patient.[facility] [place] [facility]In the event this information is protected by the Federal Confidentiality of Alcohol and Drug Abuse Patient Records regulations: The Federal rules restrict any use of the information to criminally investigate or prosecute any alcohol or drug abuse patient.[facility] [place] [facility]In the event this information is protected by the Federal Confidentiality of Alcohol and Drug Abuse Patient Records regulations: The Federal rules restrict any use of the information to criminally investigate or prosecute any alcohol or drug abuse patient.[facility] [place] [facility]In the event this information is protected by the Federal Confidentiality of Alcohol and Drug Abuse Patient Records regulations: The Federal rules restrict any use of the information to criminally investigate or prosecute any alcohol or drug abuse patient.[facility] [place] [facility]In the event this information is protected by the Federal Confidentiality of Alcohol and Drug Abuse Patient Records regulations: The Federal rules restrict any use of the information to criminally investigate or prosecute any alcohol or drug abuse patient.[facility] [place] [facility]In the event this information is protected by the Federal Confidentiality of Alcohol and Drug Abuse Patient Records regulations: The Federal rules restrict any use of the information to criminally investigate or prosecute any alcohol or drug abuse patient.[facility] [place] [facility]In the event this information is protected by the Federal Confidentiality of Alcohol and Drug Abuse Patient Records regulations: The Federal rules restrict any use of the information to criminally investigate or prosecute any alcohol or drug abuse patient.[facility] [place] [facility]In the event this information is protected by the Federal Confidentiality of Alcohol and Drug Abuse Patient Records regulations: The Federal rules restrict any use of the information to criminally investigate or prosecute any alcohol or drug abuse patient.[facility] [place] [facility]In the event this information is protected by the Federal Confidentiality of Alcohol and Drug Abuse Patient Records regulations: The Federal rules restrict any use of the information to criminally investigate or prosecute any alcohol or drug abuse patient.[facility] [place] [facility]In the event this information is protected by the Federal Confidentiality of Alcohol and Drug Abuse Patient Records regulations: The Federal rules restrict any use of the information to criminally investigate or prosecute any alcohol or drug abuse patient.[facility] [place] [facility]In the event this information is protected by the Federal Confidentiality of Alcohol and Drug Abuse Patient Records regulations: The Federal rules restrict any use of the information to criminally investigate or prosecute any alcohol or drug abuse patient.[facility] [place] [facility]In the event this information is protected by the Federal Confidentiality of Alcohol and Drug Abuse Patient Records regulations: The Federal rules restrict any use of the information to criminally investigate or prosecute any alcohol or drug abuse patient.[facility] [place] [facility]In the event this information is protected by the Federal Confidentiality of Alcohol and Drug Abuse Patient Records regulations: The Federal rules restrict any use of the information to criminally investigate or prosecute any alcohol or drug abuse patient.[facility] [place] [facility]In the event this information is protected by the Federal Confidentiality of Alcohol and Drug Abuse Patient Records regulations: The Federal rules restrict any use of the information to criminally investigate or prosecute any alcohol or drug abuse patient.[facility] [place] [facility]In the event this information is protected by the Federal Confidentiality of Alcohol and Drug Abuse Patient Records regulations: The Federal rules restrict any use of the information to criminally investigate or prosecute any alcohol or drug abuse patient.[facility] [place] [facility]In the event this information is protected by the Federal Confidentiality of Alcohol and Drug Abuse Patient Records regulations: The Federal rules restrict any use of the information to criminally investigate or prosecute any alcohol or drug abuse patient.[facility] [place] [facility]In the event this information is protected by the Federal Confidentiality of Alcohol and Drug Abuse Patient Records regulations: The Federal rules restrict any use of the information to criminally investigate or prosecute any alcohol or drug abuse patient.[facility] [place] [facility]In the event this information is protected by the Federal Confidentiality of Alcohol and Drug Abuse Patient Records regulations: The Federal rules restrict any use of the information to criminally investigate or prosecute any alcohol or drug abuse patient.[facility] [place] [facility]In the event this information is protected by the Federal Confidentiality of Alcohol and Drug Abuse Patient Records regulations: The Federal rules restrict any use of the information to criminally investigate or prosecute any alcohol or drug abuse patient.[facility] [place] [facility]In the event this information is protected by the Federal Confidentiality of Alcohol and Drug Abuse Patient Records regulations: The Federal rules restrict any use of the information to criminally investigate or prosecute any alcohol or drug abuse patient.[facility] [place] [facility]In the event this information is protected by the Federal Confidentiality of Alcohol and Drug Abuse Patient Records regulations: The Federal rules restrict any use of the information to criminally investigate or prosecute any alcohol or drug abuse patient.[facility] [place] [facility]In the event this information is protected by the Federal Confidentiality of Alcohol and Drug Abuse Patient Records regulations: The Federal rules restrict any use of the information to criminally investigate or prosecute any alcohol or drug abuse patient.[facility] [place] [facility]In the event this information is protected by the Federal Confidentiality of Alcohol and Drug Abuse Patient Records regulations: The Federal rules restrict any use of the information to criminally investigate or prosecute any alcohol or drug abuse patient.[facility] [place] [facility]In the event this information is protected by the Federal Confidentiality of Alcohol and Drug Abuse Patient Records regulations: The Federal rules restrict any use of the information to criminally investigate or prosecute any alcohol or drug abuse patient.[facility] [place] [facility]In the event this information is protected by the Federal Confidentiality of Alcohol and Drug Abuse Patient Records regulations: The Federal rules restrict any use of the information to criminally investigate or prosecute any alcohol or drug abuse patient.[facility] [place] [facility]In the event this information is protected by the Federal Confidentiality of Alcohol and Drug Abuse Patient Records regulations: The Federal rules restrict any use of the information to criminally investigate or prosecute any alcohol or drug abuse patient.[facility] [place] [facility]In the event this information is protected by the Federal Confidentiality of Alcohol and Drug Abuse Patient Records regulations: The Federal rules restrict any use of the information to criminally investigate or prosecute any alcohol or drug abuse patient.[facility] [place] [facility]In the event this information is protected by the Federal Confidentiality of Alcohol and Drug Abuse Patient Records regulations: The Federal rules restrict any use of the information to criminally investigate or prosecute any alcohol or drug abuse patient.[facility] [place] [facility]In the event this information is protected by the Federal Confidentiality of Alcohol and Drug Abuse Patient Records regulations: The Federal rules restrict any use of the information to criminally investigate or prosecute any alcohol or drug abuse patient.[facility] [place] [facility]In the event this information is protected by the Federal Confidentiality of Alcohol and Drug Abuse Patient Records regulations: The Federal rules restrict any use of the information to criminally investigate or prosecute any alcohol or drug abuse patient.[facility] [place] [facility]In the event this information is protected by the Federal Confidentiality of Alcohol and Drug Abuse Patient Records regulations: The Federal rules restrict any use of the information to criminally investigate or prosecute any alcohol or drug abuse patient.[facility] [place] [facility]In the event this information is protected by the Federal Confidentiality of Alcohol and Drug Abuse Patient Records regulations: The Federal rules restrict any use of the information to criminally investigate or prosecute any alcohol or drug abuse patient.[facility] [place] [facility]In the event this information is protected by the Federal Confidentiality of Alcohol and Drug Abuse Patient Records regulations: The Federal rules restrict any use of the information to criminally investigate or prosecute any alcohol or drug abuse patient.[facility] [place] [facility]In the event this information is protected by the Federal Confidentiality of Alcohol and Drug Abuse Patient Records regulations: The Federal rules restrict any use of the information to criminally investigate or prosecute any alcohol or drug abuse patient.[facility] [place] [facility]In the event this information is protected by the Federal Confidentiality of Alcohol and Drug Abuse Patient Records regulations: The Federal rules restrict any use of the information to criminally investigate or prosecute any alcohol or drug abuse patient.[facility] [place] [facility]In the event this information is protected by the Federal Confidentiality of Alcohol and Drug Abuse Patient Records regulations: The Federal rules restrict any use of the information to criminally investigate or prosecute any alcohol or drug abuse patient.[facility] [place] [facility]In the event this information is protected by the Federal Confidentiality of Alcohol and Drug Abuse Patient Records regulations: The Federal rules restrict any use of the information to criminally investigate or prosecute any alcohol or drug abuse patient.[facility] [place] [facility]In the event this information is protected by the Federal Confidentiality of Alcohol and Drug Abuse Patient Records regulations: The Federal rules restrict any use of the information to criminally investigate or prosecute any alcohol or drug abuse patient.[facility] [place] [facility]In the event this information is protected by the Federal Confidentiality of Alcohol and Drug Abuse Patient Records regulations: The Federal rules restrict any use of the information to criminally investigate or prosecute any alcohol or drug abuse patient.[facility] [place] [facility]In the event this information is protected by the Federal Confidentiality of Alcohol and Drug Abuse Patient Records regulations: The Federal rules restrict any use of the information to criminally investigate or prosecute any alcohol or drug abuse patient.[facility] [place] [facility]In the event this information is protected by the Federal Confidentiality of Alcohol and Drug Abuse Patient Records regulations: The Federal rules restrict any use of the information to criminally investigate or prosecute any alcohol or drug abuse patient.[facility] [place] [facility]In the event this information is protected by the Federal Confidentiality of Alcohol and Drug Abuse Patient Records regulations: The Federal rules restrict any use of the information to criminally investigate or prosecute any alcohol or drug abuse patient.[facility]In the event this information is protected by the Federal Confidentiality of Alcohol and Drug Abuse Patient Records regulations: The Federal rules restrict any use of the information to criminally investigate or prosecute any alcohol or drug abuse patient.[facility]In the event this information is protected by the Federal Confidentiality of Alcohol and Drug Abuse Patient Records regulations: The Federal rules restrict any use of the information to criminally investigate or prosecute any alcohol or drug abuse patient.[facility] SouthIn the event this information is protected by the Federal Confidentiality of Alcohol and Drug Abuse Patient Records regulations: The Federal rules restrict any use of the information to criminally investigate or prosecute any alcohol or drug abuse patient.[facility] SouthIn the event this information is protected by the Federal Confidentiality of Alcohol and Drug Abuse Patient Records regulations: The Federal rules restrict any use of the information to criminally investigate or prosecute any alcohol or drug abuse patient.[facility] SouthIn the event this information is protected by the Federal Confidentiality of Alcohol and Drug Abuse Patient Records regulations: The Federal rules restrict any use of the information to criminally investigate or prosecute any alcohol or drug abuse patient.[facility] SouthIn the event this information is protected by the Federal Confidentiality of Alcohol and Drug Abuse Patient Records regulations: The Federal rules restrict any use of the information to criminally investigate or prosecute any alcohol or drug abuse patient.[facility] SouthIn the event this information is protected by the Federal Confidentiality of Alcohol and Drug Abuse Patient Records regulations: The Federal rules restrict any use of the information to criminally investigate or prosecute any alcohol or drug abuse patient.[facility] SouthIn the event this information is protected by the Federal Confidentiality of Alcohol and Drug Abuse Patient Records regulations: The Federal rules restrict any use of the information to criminally investigate or prosecute any alcohol or drug abuse patient.[facility] SouthIn the event this information is protected by the Federal Confidentiality of Alcohol and Drug Abuse Patient Records regulations: The Federal rules restrict any use of the information to criminally investigate or prosecute any alcohol or drug abuse patient.[facility] SouthIn the event this information is protected by the Federal Confidentiality of Alcohol and Drug Abuse Patient Records regulations: The Federal rules restrict any use of the information to criminally investigate or prosecute any alcohol or drug abuse patient.[facility] SouthIn the event this information is protected by the Federal Confidentiality of Alcohol and Drug Abuse Patient Records regulations: The Federal rules restrict any use of the information to criminally investigate or prosecute any alcohol or drug abuse patient.[facility] SouthIn the event this information is protected by the Federal Confidentiality of Alcohol and Drug Abuse Patient Records regulations: The Federal rules restrict any use of the information to criminally investigate or prosecute any alcohol or drug abuse patient.[facility] SouthIn the event this information is protected by the Federal Confidentiality of Alcohol and Drug Abuse Patient Records regulations: The Federal rules restrict any use of the information to criminally investigate or prosecute any alcohol or drug abuse patient.[facility] SouthIn the event this information is protected by the Federal Confidentiality of Alcohol and Drug Abuse Patient Records regulations: The Federal rules restrict any use of the information to criminally investigate or prosecute any alcohol or drug abuse patient.[facility] SouthIn the event this information is protected by the Federal Confidentiality of Alcohol and Drug Abuse Patient Records regulations: The Federal rules restrict any use of the information to criminally investigate or prosecute any alcohol or drug abuse patient.[facility] SouthIn the event this information is protected by the Federal Confidentiality of Alcohol and Drug Abuse Patient Records regulations: The Federal rules restrict any use of the information to criminally investigate or prosecute any alcohol or drug abuse patient.[facility] SouthIn the event this information is protected by the Federal Confidentiality of Alcohol and Drug Abuse Patient Records regulations: The Federal rules restrict any use of the information to criminally investigate or prosecute any alcohol or drug abuse patient.[facility] SouthIn the event this information is protected by the Federal Confidentiality of Alcohol and Drug Abuse Patient Records regulations: The Federal rules restrict any use of the information to criminally investigate or prosecute any alcohol or drug abuse patient.[facility] SouthIn the event this information is protected by the Federal Confidentiality of Alcohol and Drug Abuse Patient Records regulations: The Federal rules restrict any use of the information to criminally investigate or prosecute any alcohol or drug abuse patient.[facility] SouthIn the event this information is protected by the Federal Confidentiality of Alcohol and Drug Abuse Patient Records regulations: The Federal rules restrict any use of the information to criminally investigate or prosecute any alcohol or drug abuse patient.[facility] SouthIn the event this information is protected by the Federal Confidentiality of Alcohol and Drug Abuse Patient Records regulations: The Federal rules restrict any use of the information to criminally investigate or prosecute any alcohol or drug abuse patient.[facility] SouthIn the event this information is protected by the Federal Confidentiality of Alcohol and Drug Abuse Patient Records regulations: The Federal rules restrict any use of the information to criminally investigate or prosecute any alcohol or drug abuse patient.[facility] SouthIn the event this information is protected by the Federal Confidentiality of Alcohol and Drug Abuse Patient Records regulations: The Federal rules restrict any use of the information to criminally investigate or prosecute any alcohol or drug abuse patient.[facility] SouthIn the event this information is protected by the Federal Confidentiality of Alcohol and Drug Abuse Patient Records regulations: The Federal rules restrict any use of the information to criminally investigate or prosecute any alcohol or drug abuse patient.[facility] SouthIn the event this information is protected by the Federal Confidentiality of Alcohol and Drug Abuse Patient Records regulations: The Federal rules restrict any use of the information to criminally investigate or prosecute any alcohol or drug abuse patient.[facility] SouthIn the event this information is protected by the Federal Confidentiality of Alcohol and Drug Abuse Patient Records regulations: The Federal rules restrict any use of the information to criminally investigate or prosecute any alcohol or drug abuse patient.[facility] SouthIn the event this information is protected by the Federal Confidentiality of Alcohol and Drug Abuse Patient Records regulations: The Federal rules restrict any use of the information to criminally investigate or prosecute any alcohol or drug abuse patient.[facility] SouthIn the event this information is protected by the Federal Confidentiality of Alcohol and Drug Abuse Patient Records regulations: The Federal rules restrict any use of the information to criminally investigate or prosecute any alcohol or drug abuse patient.[facility] SouthIn the event this information is protected by the Federal Confidentiality of Alcohol and Drug Abuse Patient Records regulations: The Federal rules restrict any use of the information to criminally investigate or prosecute any alcohol or drug abuse patient.[facility] SouthIn the event this information is protected by the Federal Confidentiality of Alcohol and Drug Abuse Patient Records regulations: The Federal rules restrict any use of the information to criminally investigate or prosecute any alcohol or drug abuse patient.[facility] SouthIn the event this information is protected by the Federal Confidentiality of Alcohol and Drug Abuse Patient Records regulations: The Federal rules restrict any use of the information to criminally investigate or prosecute any alcohol or drug abuse patient.[facility] SouthIn the event this information is protected by the Federal Confidentiality of Alcohol and Drug Abuse Patient Records regulations: The Federal rules restrict any use of the information to criminally investigate or prosecute any alcohol or drug abuse patient.[facility] SouthIn the event this information is protected by the Federal Confidentiality of Alcohol and Drug Abuse Patient Records regulations: The Federal rules restrict any use of the information to criminally investigate or prosecute any alcohol or drug abuse patient.[facility] SouthIn the event this information is protected by the Federal Confidentiality of Alcohol and Drug Abuse Patient Records regulations: The Federal rules restrict any use of the information to criminally investigate or prosecute any alcohol or drug abuse patient.[facility] SouthIn the event this information is protected by the Federal Confidentiality of Alcohol and Drug Abuse Patient Records regulations: The Federal rules restrict any use of the information to criminally investigate or prosecute any alcohol or drug abuse patient.[facility] SouthIn the event this information is protected by the Federal Confidentiality of Alcohol and Drug Abuse Patient Records regulations: The Federal rules restrict any use of the information to criminally investigate or prosecute any alcohol or drug abuse patient.[facility] SouthIn the event this information is protected by the Federal Confidentiality of Alcohol and Drug Abuse Patient Records regulations: The Federal rules restrict any use of the information to criminally investigate or prosecute any alcohol or drug abuse patient.[facility] SouthIn the event this information is protected by the Federal Confidentiality of Alcohol and Drug Abuse Patient Records regulations: The Federal rules restrict any use of the information to criminally investigate or prosecute any alcohol or drug abuse patient.[facility] SouthIn the event this information is protected by the Federal Confidentiality of Alcohol and Drug Abuse Patient Records regulations: The Federal rules restrict any use of the information to criminally investigate or prosecute any alcohol or drug abuse patient.[facility] SouthIn the event this information is protected by the Federal Confidentiality of Alcohol and Drug Abuse Patient Records regulations: The Federal rules restrict any use of the information to criminally investigate or prosecute any alcohol or drug abuse patient.[facility] SouthIn the event this information is protected by the Federal Confidentiality of Alcohol and Drug Abuse Patient Records regulations: The Federal rules restrict any use of the information to criminally investigate or prosecute any alcohol or drug abuse patient.[facility] SouthIn the event this information is protected by the Federal Confidentiality of Alcohol and Drug Abuse Patient Records regulations: The Federal rules restrict any use of the information to criminally investigate or prosecute any alcohol or drug abuse patient.[facility] SouthIn the event this information is protected by the Federal Confidentiality of Alcohol and Drug Abuse Patient Records regulations: The Federal rules restrict any use of the information to criminally investigate or prosecute any alcohol or drug abuse patient.[facility] SouthIn the event this information is protected by the Federal Confidentiality of Alcohol and Drug Abuse Patient Records regulations: The Federal rules restrict any use of the information to criminally investigate or prosecute any alcohol or drug abuse patient.[facility] SouthIn the event this information is protected by the Federal Confidentiality of Alcohol and Drug Abuse Patient Records regulations: The Federal rules restrict any use of the information to criminally investigate or prosecute any alcohol or drug abuse patient.[facility] SouthIn the event this information is protected by the Federal Confidentiality of Alcohol and Drug Abuse Patient Records regulations: The Federal rules restrict any use of the information to criminally investigate or prosecute any alcohol or drug abuse patient.[facility] SouthIn the event this information is protected by the Federal Confidentiality of Alcohol and Drug Abuse Patient Records regulations: The Federal rules restrict any use of the information to criminally investigate or prosecute any alcohol or drug abuse patient.[facility] Reason for Visit (unrecogniz ed section and content) Reason Comments Non-Chemotherapy Treatment Specialty Diagnoses / Procedures Referred By Contac t Referred To Contact Diagnoses Primary cancer of right lower lobe of lung (HCC) Metastasis to mediastinal lymph node (HCC) Hypomagnesemia NSCLC of right lung (HCC) Carolina Lambert MD [address] [place] [address] [facility] [address] [place] [address] Referral ID Status Reason Start Date Expiration Date V isits Requested Visits Authorized [id number] Authorized 10/11/2021 01/09/2022 99 99 Reason Comments Infusion Reason Comments Established Patient SOB Reason Comments Orders Results Reason Comments Radiology CT Specialty Diagnoses / Procedures [facility] Diagnoses Malignant neoplasm of unspecified part of unspecified bronchus or lung (HCC) Procedures CT CHEST WO IVCON DIAGNOSTIC COMPUTED TOMOGRAPHY THORAX W/O CNTRST Carolina Lambert MD [address] [place] [address] Ct Imaging Referral ID Status Reason Start Date Expiration Date V isits Requested Visits Authorized [id number] Closed Auto-Generate d Referral 10/08/2021 08/07/2022 1 [...] hemorrhage Specialty Diagnoses / Procedures [facility] Diagnoses Gastrointestinal hemorrhage, unspecified gastrointestinal hemorrhage type Intussusception (HCC) Procedures CAPSULE ENDOSCOPY SMALL BOWEL GI TRC IMG INTRALUMINAL ESOPHAGUS-ILEUM W/I&R Jhonathan Reyna MD [address] [place] [address] [facility] [address] [place] [id number] Referral ID Status Reason Start Date Expiration Date V isits Requested Visits Authorized [id number] Closed Auto-Generate d Referral 11/29/2021 11/29/2022 1 [...] Spirometry Specialty Diagnoses / Procedures Referred By Lelia weiss Referred To Contact [facility] Diagnoses Moderate COPD (chronic obstructive pulmonary disease) ([facility]) Diaphragm paralysis Procedures OXIMETRY WITH AMBULATION NONINVASIVE EAR/[place] [address] [place] [address] [facility] [address] [place] [address] Referral ID Status Reason Start Date Expiration Date V isits Requested Visits Authorized [id number] Closed Auto-Generate d Referral 12/06/2022 01/05/2024 1 [...] unspecified type Procedures CONSULT TO GASTROENTEROLOGY OFFICE/OUTPATIENT [facility] MDM 60-74 MINUTES Jaspreet Curtis, SANJAY.[employer] [address] [place] [address] Referral ID Status Reason Start Date Expiration Date V isits Requested Visits Authorized [id number] Closed PCP Requested Referral 01/07/2023 01/07/2024 1 1 Specialty Diagnoses / Procedures Referred By Contac t Referred To Contact CT IMAGING Diagnoses Malignant neoplasm of unspecified part of unspecified bronchus or lung (HCC) Procedures CT CHEST WO IVCON DIAGNOSTIC COMPUTED TOMOGRAPHY THORAX W/O CNTRST Carolina Lambert MD [address] [place] [address] Ct Imaging [place] [address] Referral ID Status Reason Start Date Expiration Date V isits Requested Visits Authorized [id number] Closed Auto-Generate d Referral 04/06/2022 02/03/2023 1 1 Reason Onset Date Comments Refill Request 04/13/2023 Reason Comments airway check Reason Comments Pre-Op Exam Specialty Diagnoses / Procedures Referred By Contac t Referred To Contact CT IMAGING Diagnoses Malignant neoplasm of unspecified part of unspecified bronchus or lung (HCC) Procedures CT CHEST WO IVCON DIAGNOSTIC COMPUTED TOMOGRAPHY THORAX W/[place] [address] [place] [address] [address] Imaging [place] [address] Referral ID Status Reason Start Date Expiration Date V isits Requested Visits Authorized [id number] Closed Auto-Generate d Referral 06/02/2022 01/06/2024 1 [...] TOMOGRAPHY THORAX W/[place] [address] [place] [address] [place] [address] Referral ID Status Reason Start Date Expiration Date V isits Requested Visits Authorized [id number] Closed Auto-Generate d Referral 06/21/2023 07/20/2024 1 [...] Diagnoses Pain Procedures CONSULT TO PODIATRY OFFICE/OUTPATIENT [facility] 60 MINUTES Tima López APRN.[employer] [address] [place] [address] Referral ID Status Reason Start Date Expiration Date V isits Requested Visits Authorized [id number] Closed PCP Requested Referral 05/09/2024 05/09/2025 1 [...] WO IVCON DIAGNOSTIC COMPUTED TOMOGRAPHY THORAX W/[place] [address] [place] [address] Phone: tel: fax: [place] [address] Referral ID Status Reason Start Date Expiration Date V isits Requested Visits Authorized [id number] Closed Auto-Generate d Referral 12/26/2023 01/24/2025 1 1 Reason Comments Established Patient 6 month follow up [place] Reason Comments sinus congestion Specialty Diagnoses / Procedures Referred By Contac t Referred To Contact [facility] Diagnoses Moderate COPD (chronic obstructive pulmonary disease) (HCC) Procedures SPIROMETRY WITH DILATOR IF OBSTRUCTED BRNCDILAT RSPSE SPMTRY PRE&POST-BRNCDILAT ADMN Ronald Garrido APRN.[employer] [address] [place] [id number] Phone: tel: fax: [facility] [place] [phone] Referral ID Status Reason Start Date Expiration Date V isits Requested Visits Authorized [id number] Closed Auto-Generate d Referral 06/28/2024 07/28/2025 1 1 Specialty Diagnoses / Procedures Referred By Contac t Referred To Contact [facility] Diagnoses Moderate COPD (chronic obstructive pulmonary disease) ([facility]) Procedures LUNG DIFFUSION CAPACITY (DLCO) DIFFUSING CAPACITY Ronald Garrido, SANJAY.[employer] [address] [place] [address] Phone: tel: fax: [facility] [place] [phone] Referral ID Status Reason Start Date Expiration Date V isits Requested Visits Authorized [id number] Closed Auto-Generate d Referral 06/28/2024 07/28/2025 1 1 Specialty Diagnoses / Procedures Referred By Contac t Referred To Contact [facility] Diagnoses Moderate COPD (chronic obstructive pulmonary disease) ([facility]) Procedures LUNG VOLUMES Ronald Garrido, FACILITY EXAMINER.[employer] ENG[employer] [address] [place] [address] [address] Phone: tel: fax: [facility] [place] [phone] Referral ID Status Reason Start Date Expiration Date V isits Requested Visits Authorized [id number] Closed Auto-Generate d Referral 06/28/2024 07/28/2025 1 1 Reason Comments Established Patient 6 week follow up 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 Reason Onset Date Comments Refill Request 09/06/2024 Reason Comments Established Patient Harsh cough Reason Comments Medicare Wellness Exam Reason Onset Date Comments Refill Request 12/31/2024 Care Teams (unrecognized sec tion and content) Dam Attendant Relationship Specialty Start Date End Date Dennis Marcial MD [address] [place] [place] [address] PCP - General Family Practice 08/29/18 Iftikhar Sandoval V [address] [place] [address] Referring Internal Medicine 02/14/20 Natacha Conklin MD, [address] [place] [address] Physician Radiation Oncology 03/23/20 Ira Hobbs RN Specialty Automotive Maintenance Technician Oncology 03/30/20 Charley Mcnally, RN [address] [place] [address] Surfacer Hematology/Oncology 07/08/21 Dam Attendant Relationship Specialty Start Date End Date Dennis Marcial MD [address] [place] [place] [address] PCP - General Family Practice 08/29/18 Iftikhar Sandoval V [address] [place] [address] Referring Internal Medicine 02/14/20 Natacha Conklin MD, [address] [place] [address] Physician Radiation Oncology 03/23/20 Charley Mcnally, RN [address] [place] [address] Specialty Automotive Maintenance Technician Hematology/Oncology 07/08/21 Dam Attendant Relationship Specialty Start Date End Date Dennis Marcial MD [address] [place] [place] [address] PCP - General Family Practice 08/29/18 Sibilia, Iftikhar, V [address] [place] [address] Referring Internal Medicine 02/14/20 Natacha Conklin MD, [address] [place] [address] Physician Radiation Oncology 03/23/20 Charley Mcnally, RN [address] [place] [address] Specialty Automotive Maintenance Technician Hematology/Oncology 07/08/21 Dam Attendant Relationship Specialty Start Date End Date Dennis Marcial MD [address] [place] [place] [address] PCP - General Family Practice 08/29/18 Iftikhar Sandoval V [address] [place] [address] Referring Internal Medicine 02/14/20 Natacha Conklin MD, [address] [place] [address] Physician Radiation Oncology 03/23/20 Charley Mcnally, RN [address] [place] [address] Specialty Automotive Maintenance Technician Hematology/Oncology 07/08/21 Dam Attendant Relationship Specialty Start Date End Date Dennis Marcial MD [address] [place] [place] [address] PCP - General Family Practice 08/29/18 Iftikhar Sandoval V [address] [place] [address] Referring Internal Medicine 02/14/20 Natacha Conklin MD, [address] [place] [address] Physician Radiation Oncology 03/23/20 Charley Mcnally RN [address] [place] [address] Specialty Automotive Maintenance Technician Hematology/Oncology 07/08/21 Augusta Roberts LISW Baler 10/12/21 Dam Attendant Relationship Specialty Start Date End Date Dennis Marcial MD [address] [place] [address] PCP - General Family Practice 08/29/18 Iftikhar Sandoval V [address] [place] [address] Referring Internal Medicine 02/14/20 Natacha Conklin MD, [address] [place] [address] Physician Radiation Oncology 03/23/20 Charley Mcnally RN [address] [place] [address] Specialty Automotive Maintenance Technician Hematology/Oncology 07/08/21 Augusta Roberts LISW Baler 10/12/21 Dam Attendant Relationship Specialty Start Date End Date Dennis Marcial MD [address] [facility] [place] [address] PCP - General Family Practice 08/29/18 Iftikhar Sandoval V [address] [place] [address] Referring Internal Medicine 02/14/20 Natacha Conklin MD, [address] [place] [address] Physician Radiation Oncology 03/23/20 Charley Mcnally RN [address] [place] [address] Specialty Automotive Maintenance Technician Hematology/Oncology 07/08/21 Augusta Roberts LISW Baler 10/12/21 Dam Attendant Relationship Specialty Start Date End Date Dennis Marcial MD [address] [place] [place] [address] PCP - General Family Practice 08/29/18 Iftikhar Sandoval V [address] [place] [place] [address] Referring Internal Medicine 02/14/20 Natacha Conklin MD, [address] [place] [address] Physician Radiation Oncology 03/23/20 Charley Mcnally RN [address] [place] [address] Specialty Automotive Maintenance Technician Hematology/Oncology 07/08/21 Augusta Roberts LISW Baler 10/12/21 Dam Attendant Relationship Specialty Start Date End Date Dennis Marcial MD [address] [place] [place] [address] PCP - General Family Practice 08/29/18 Iftikhar Sandoval V [address] [place] [address] Referring Internal Medicine 02/14/20 Natacha Conklin MD, [address] [place] [address] Physician Radiation Oncology 03/23/20 Charley Mcnally RN [address] [place] [address] Specialty Automotive Maintenance Technician Hematology/Oncology 07/08/21 Augusta Roberts LISW Baler 10/12/21 Dam Attendant Relationship Specialty Start Date End Date Dennis Marcial MD [address] [facility] [place] [address] PCP - General Family Practice 08/29/18 Iftikhar Sandoval, V [address] [place] [address] Referring Internal Medicine 02/14/20 Natacha Conklin MD, [address] [place] [address] Physician Radiation Oncology 03/23/20 Charley Mcnally, VANDANA [address] [place] [address] Specialty Automotive Maintenance Technician Hematology/Oncology 07/08/21 Augusta Roberts LISW Baler 10/12/21 Dam Attendant Relationship Specialty Start Date End Date Dennis Marcial MD [address] [facility] [place] [address] PCP - General Family Practice 08/29/18 Iftikhar Sandoval V [address] [place] [address] Referring Internal Medicine 02/14/20 Natacha Conklin MD, [address] [place] [address] Physician Radiation Oncology 03/23/20 Charley Mcnally, VANDANA [address] [place] [address] Specialty Automotive Maintenance Technician Hematology/Oncology 07/08/21 Augusta Roberts LISW Baler 10/12/21 Dam Attendant Relationship Specialty Start Date End Date Dennis Marcial MD [address] [facility] [place] [address] PCP - General Family Practice 08/29/18 Iftikhar Sandoval V [address] [place] [place] [address] Referring Internal Medicine 02/14/20 Natacha Conklin MD, [address] [place] [address] Physician Radiation Oncology 03/23/20 Charley Mcnally, RN [address] [place] [address] Specialty Automotive Maintenance Technician Hematology/Oncology 07/08/21 Augusta Roberts LISW Baler 10/12/21 Dam Attendant Relationship Specialty Start Date End Date Dennis Marcial MD [address] [facility] [place] [address] PCP - General Family Practice 08/29/18 Iftikhar Sandoval V [address] [place] [address] Referring Internal Medicine 02/14/20 Natacha Conklin MD, [address] [place] [address] Physician Radiation Oncology 03/23/20 Charley Mcnally, RN [address] [place] [address] Specialty Automotive Maintenance Technician Hematology/Oncology 07/08/21 Augusta Roberts LISW Baler 10/12/21 Dam Attendant Relationship Specialty Start Date End Date Dennis Marcial MD [address] [place] [address] PCP - General Family Practice 08/29/18 Iftikhar Sandoval V [address] [place] [address] Referring Internal Medicine 02/14/20 Natacha Conklin MD, [address] [place] [address] Physician Radiation Oncology 03/23/20 Charley Mcnally, VANDANA [address] [place] [address] Specialty Automotive Maintenance Technician Hematology/Oncology 07/08/21 Augusta Roberts LISW Baler 10/12/21 Dam Attendant Relationship Specialty Start Date End Date Dennis Marcial MD [address] [facility] [place] [address] PCP - General Family Practice 08/29/18 Iftikhar Sandoval V [address] [place] [address] Referring Internal Medicine 02/14/20 Natacha Conklin MD, [address] [place] [address] Physician Radiation Oncology 03/23/20 Charley Mcnally, VANDANA [address] [place] [address] Specialty Automotive Maintenance Technician Hematology/Oncology 07/08/21 Augusta Roberts LISW Baler 10/12/21 Dam Attendant Relationship Specialty Start Date End Date Dennis Marcial MD [address] [place] [place] [address] PCP - General Family Practice 08/29/18 Iftikhar Sandoval V [address] [place] [address] Referring Internal Medicine 02/14/20 Natacha Conklin MD, [address] [place] [address] Physician Radiation Oncology 03/23/20 Charley Mcnally, VANDANA [address] [place] [address] Specialty Automotive Maintenance Technician Hematology/Oncology 07/08/21 Augusta Roberts LISW Baler 10/12/21 Dam Attendant Relationship Specialty Start Date End Date Dennis Marcial MD [address] [place] [place] [address] PCP - General Family Practice 08/29/18 Iftikhar Sandoval V [address] [place] [place] [address] Referring Internal Medicine 02/14/20 Natacha Conklin MD, [address] [place] [address] Physician Radiation Oncology 03/23/20 Charley Mcnally, RN [address] [place] [address] Specialty Automotive Maintenance Technician Hematology/Oncology 07/08/21 Augusta Roberts LISW Baler 10/12/21 Dam Attendant Relationship Specialty Start Date End Date Dennis Marcial MD [address] [facility] [place] [address] PCP - General Family Practice 08/29/18 Iftikhar Sandoval V [address] [place] [address] Referring Internal Medicine 02/14/20 Natacha Conklin MD, [address] [place] [address] Physician Radiation Oncology 03/23/20 Charley Mcnally, VANDANA [address] [place] [address] Specialty Automotive Maintenance Technician Hematology/Oncology 07/08/21 Augusta Roberts LISW Baler 10/12/21 Dam Attendant Relationship Specialty Start Date End Date Dennis Marcial MD [address] [place] [place] [address] PCP - General Family Practice 08/29/18 Iftikhar Sandoval V [address] [place] [address] Referring Internal Medicine 02/14/20 Natacha Conklin MD, [address] [place] [address] Physician Radiation Oncology 03/23/20 Charley Mcnally, VANDANA [address] [place] [address] Specialty Automotive Maintenance Technician Hematology/Oncology 07/08/21 Augusta Roberts LISW Baler 10/12/21 Dam Attendant Relationship Specialty Start Date End Date Dennis Marcial MD [address] [place] [place] [address] PCP - General Family Practice 08/29/18 Iftikhar Sandoval V [address] [place] [address] Referring Internal Medicine 02/14/20 Natacha Conklin MD, [address] [place] [address] Physician Radiation Oncology 03/23/20 Charley Mcnally RN [address] [place] [address] Specialty Automotive Maintenance Technician Hematology/Oncology 07/08/21 Augusta Roberts LISW Baler 10/12/21 Dam Attendant Relationship Specialty Start Date End Date Dennis Marcial MD [address] [place] [place] [address] PCP - General Family Practice 08/29/18 Iftikhar Sandoval V [address] [place] [address] Referring Internal Medicine 02/14/20 Natacha Conkiln MD, [address] [place] [address] Physician Radiation Oncology 03/23/20 Charley Mcnally RN [address] [place] [address] Specialty Automotive Maintenance Technician Hematology/Oncology 07/08/21 Augusta Roberts LISW Baler 10/12/21 Dam Attendant Relationship Specialty Start Date End Date Dennis Marcial MD [address] [place] [place] [address] PCP - General Family Practice 08/29/18 Iftikhar Sandoval V [address] [place] [address] Referring Internal Medicine 02/14/20 Natacha Conklin MD, [address] [place] [address] Physician Radiation Oncology 03/23/20 Charley Mcnally RN [address] [place] [address] Specialty Automotive Maintenance Technician Hematology/Oncology 07/08/21 Augusta Roberts, RN Baler 10/12/21 Dam Attendant Relationship Specialty Start Date End Date Dennis Marcial MD [address] [place] [address] PCP - General Family Practice 08/29/18 Iftikhar Sandoval V [address] [place] [address] Referring Internal Medicine 02/14/20 Natacha Conklin MD, [address] [place] [address] Physician Radiation Oncology 03/23/20 Charley Mcnally, VANDANA [address] [place] [address] Specialty Automotive Maintenance Technician Hematology/Oncology 07/08/21 Augusta Roberts RN Baler 10/12/21 Dam Attendant Relationship Specialty Start Date End Date Dennis Marcial MD [address] [place] [address] PCP - General Family Practice 08/29/18 Iftikhar Sandoval V [address] [place] [address] Referring Internal Medicine 02/14/20 Natacha Conklin MD, [address] [place] [address] Physician Radiation Oncology 03/23/20 Charley Mcnally, RN [address] [place] [address] Specialty Automotive Maintenance Technician Hematology/Oncology 07/08/21 Augusta Roberts, VANDANA Baler 10/12/21 Dam Attendant Relationship Specialty Start Date End Date Dennis Marcial MD [address] [facility] [place] [address] PCP - General Family Practice 08/29/18 Iftikhar Sandoval V [address] [place] [address] Referring Internal Medicine 02/14/20 Natacha Conklin MD, [address] [place] [address] Physician Radiation Oncology 03/23/20 Charley Mcnally, RN [address] [place] [address] Specialty Automotive Maintenance Technician Hematology/Oncology 07/08/21 Augusta Roberts, RN Baler 10/12/21 Dam Attendant Relationship Specialty Start Date End Date Dennis Marcial MD [address] [place] [place] [address] PCP - General Family Practice 08/29/18 Iftikhar Sandoval V [address] [place] [address] Referring Internal Medicine 02/14/20 Natacha Conklin MD, [address] [place] [address] Physician Radiation Oncology 03/23/20 Charley Mcnally, VANDANA [address] [place] [address] Specialty Automotive Maintenance Technician Hematology/Oncology 07/08/21 Augusta Roberts, RN Baler 10/12/21 Dam Attendant Relationship Specialty Start Date End Date Dennis Marcial MD [address] [place] [place] [address] PCP - General Family Practice 08/29/18 Iftikhar Sandoval V [address] [place] [address] Referring Internal Medicine 02/14/20 Natacha Conklin MD, [address] [place] [address] Physician Radiation Oncology 03/23/20 Charley Mcnally, VANDANA [address] [place] [address] Specialty Automotive Maintenance Technician Hematology/Oncology 07/08/21 Augusta Roberts, RN Baler 10/12/21 Carolina Lambert MD [address] [place] [address] Hematology/Oncology 01/04/22 Dam Attendant Relationship Specialty Start Date End Date Dennis Marcial MD [address] [place] [address] PCP - General Family Practice 08/29/18 Iftikhar Sandoval V [address] [place] [address] Referring Internal Medicine 02/14/20 Natacha Conklin MD, [address] [place] [address] Physician Radiation Oncology 03/23/20 Charley Mcnally, VANDANA [address] [place] [address] Specialty Automotive Maintenance Technician Hematology/Oncology 07/08/21 Augusta Roberts, RN Baler 10/12/21 Carolina Lambert MD [address] [place] [address] Hematology/Oncology 01/04/22 Dam Attendant Relationship Specialty Start Date End Date Dennis Marcial MD [address] [place] [place] [address] PCP - General Family Medicine 08/29/18 Iftikhar Sandoval V [address] [place] [address] Referring Internal Medicine 02/14/20 Natacha Conklin MD, [address] [place] [address] Physician Radiation Oncology 03/23/20 Charley Mcnally, VANDANA [address] [place] [address] Specialty Automotive Maintenance Technician Hematology/Oncology 07/08/21 Augusta Roberts, RN Baler 10/12/21 Carolina Lambert MD [address] [place] [address] Hematology/Oncology 01/04/22 Dam Attendant Relationship Specialty Start Date End Date Dennis Marcial MD [address] [place] [place] [address] PCP - General Family Medicine 08/29/18 Iftikhar Sandoval V [address] [place] [address] Referring Internal Medicine 02/14/20 Natacha Conklin MD, [address] [place] [address] Physician Radiation Oncology 03/23/20 Charley Mcnally, VANDANA [address] [place] [address] Specialty Automotive Maintenance Technician Hematology/Oncology 07/08/21 Augusta Roberts, RN Baler 10/12/21 Carolina Lambert MD [address] [place] [address] Hematology/Oncology 01/04/22 Dam Attendant Relationship Specialty Start Date End Date Dennis Marcial MD [address] [place] [place] [address] PCP - General Family Medicine 08/29/18 Iftikhar Sandoval V [address] [place] [address] Referring Internal Medicine 02/14/20 Natacha Conklin MD, [address] [place] [address] Physician Radiation Oncology 03/23/20 Charley Mcnally, VANDANA [address] [place] [address] Specialty Automotive Maintenance Technician Hematology/Oncology 07/08/21 Augusta Roberts, RN Baler 10/12/21 Carolina Lambert MD [address] [place] [address] Hematology/Oncology 01/04/22 Dam Attendant Relationship Specialty Start Date End Date Dennis Marcial MD [address] [place] [place] [address] PCP - General Family Medicine 08/29/18 Iftikhar Sandoval V [address] [place] [address] Referring Internal Medicine 02/14/20 Natacha Conklin MD, [address] [place] [address] Physician Radiation Oncology 03/23/20 Charley Mcnally, VANDANA [address] [place] [address] Specialty Automotive Maintenance Technician Hematology/Oncology 07/08/21 Augusta Roberts, RN Baler 10/12/21 Carolina Lambert MD [address] [place] [address] Hematology/Oncology 01/04/22 Dam Attendant Relationship Specialty Start Date End Date Dennis Marcial MD [address] [place] [address] PCP - General Family Medicine 08/29/18 Iftikhar Sandoval V [address] [place] [address] Referring Internal Medicine 02/14/20 Natacha Conklin MD, [address] [place] [address] Physician Radiation Oncology 03/23/20 Charley Mcnally, VANDANA [address] [place] [address] Specialty Automotive Maintenance Technician Hematology/Oncology 07/08/21 Augusta Roberts, RN Baler 10/12/21 Carolina Lambert MD [address] [place] [address] Hematology/Oncology 01/04/22 Dam Attendant Relationship Specialty Start Date End Date Dennis Marcial MD [address] [place] [address] PCP - General Family Medicine 08/29/18 Iftikhar Sandoval V [address] [place] [address] Referring Internal Medicine 02/14/20 Natacha Conklin MD, [address] [place] [address] Physician Radiation Oncology 03/23/20 Charley Mcnally RN [address] [place] [address] Specialty Automotive Maintenance Technician Hematology/Oncology 07/08/21 Augusta Roberts, RN Baler 10/12/21 Carolina Lambert MD [address] [place] [address] Hematology/Oncology 01/04/22 Dam Attendant Relationship Specialty Start Date End Date Dennis Marcial MD [address] [place] [place] [address] PCP - General Family Medicine 08/29/18 Iftikhar Sandoval V [address] [place] [address] Referring Internal Medicine 02/14/20 Natacha Conklin MD, [address] [place] [address] Physician Radiation Oncology 03/23/20 Charley Mcnally RN [address] [place] [address] Specialty Automotive Maintenance Technician Hematology/Oncology 07/08/21 Augusta Roberts, RN Baler 10/12/21 Carolina Lambert MD [address] [place] [address] Hematology/Oncology 01/04/22 Dam Attendant Relationship Specialty Start Date End Date Dennis Marcial MD [address] [place] [place] [address] PCP - General Family Medicine 08/29/18 Iftikhar Sandoval V [address] [place] [address] Referring Internal Medicine 02/14/20 Natacha Conklin MD, [address] [place] [address] Physician Radiation Oncology 03/23/20 Charley Mcnally, VANDANA [address] [place] [address] Specialty Automotive Maintenance Technician Hematology/Oncology 07/08/21 Augusta Roberts RN Baler 10/12/21 Carolina Lambert MD [address] [place] [address] Hematology/Oncology 01/04/22 Dam Attendant Relationship Specialty Start Date End Date Dennis Marcial MD [address] [place] [place] [address] PCP - General Family Medicine 08/29/18 Iftikhar Sandoval V [address] [place] [address] Referring Internal Medicine 02/14/20 Natacha Conklin MD, [address] [place] [address] Physician Radiation Oncology 03/23/20 Charley Mcnally, VANDANA [address] [place] [address] Specialty Automotive Maintenance Technician Hematology/Oncology 07/08/21 Augusta Roberts, VANDANA Baler 10/12/21 Carolina Lambert MD [address] [place] [address] Hematology/Oncology 01/04/22 Dam Attendant Relationship Specialty Start Date End Date Dennis Marcial MD [address] [place] [place] [address] PCP - General Family Medicine 08/29/18 Iftikhar Sandoval V [address] [place] [place] [address] Referring Internal Medicine 02/14/20 Natacha Conklin MD, [address] [place] [address] Physician Radiation Oncology 03/23/20 Charley Mcnally, VANDANA [address] [place] [address] Specialty Automotive Maintenance Technician Hematology/Oncology 07/08/21 Augusta Roberts, VANDANA Baler 10/12/21 Carolina Lambert MD [address] [place] [address] Hematology/Oncology 01/04/22 Dam Attendant Relationship Specialty Start Date End Date Dennis Marcial MD [address] [place] [place] [address] PCP - General Family Medicine 08/29/18 Iftikhar Sandoval V [address] [place] [place] [address] Referring Internal Medicine 02/14/20 Natacha Conklin MD, [address] [place] [address] Physician Radiation Oncology 03/23/20 Charley Mcnally, VANDANA [address] [place] [address] Specialty Automotive Maintenance Technician Hematology/Oncology 07/08/21 Augusta Roberts, RN Baler 10/12/21 Carolina Lambert MD [address] [place] [address] Hematology/Oncology 01/04/22 Team Status: Active Member Role Status Dates Dr. Dennis Marcial MD Family Provider Active Dr. Dennis Marcial MD Primary Care Provider Active Team Status: Inactive Member Role Status Dates Dr. Dennis Marcial MD Primary Care Provider Active Dr. Marcelina Holder DO Attending Provider Active Dam Attendant Relationship Specialty Start Date End Date Dennis Marcial MD [address] [place] [place] [address] PCP - General Family Medicine 08/29/18 Iftikhar Sandoval V [address] [place] [address] Referring Internal Medicine 02/14/20 Natacha Conklin MD, [address] [place] [address] Physician Radiation Oncology 03/23/20 Charley Mcnally RN [address] [place] [address] Specialty Automotive Maintenance Technician Hematology/Oncology 07/08/21 Augusta Roberts, VANDANA Baler 10/12/21 Carolina Lambert MD [address] [place] [address] Hematology/Oncology 01/04/22 Dam Attendant Relationship Specialty Start Date End Date Dennis Marcial MD [address] [place] [address] PCP - General Family Medicine 08/29/18 Iftikhar Sandoval V [address] [place] [address] Referring Internal Medicine 02/14/20 Natacha Conklin MD, [address] [place] [address] Physician Radiation Oncology 03/23/20 Charley Mcnally RN [address] [place] [address] Specialty Automotive Maintenance Technician Hematology/Oncology 07/08/21 Augusat Roberts, RN Baler 10/12/21 Carolina Lambert MD Hematology/Oncology 01/04/22 Dam Attendant Relationship Specialty Start Date End Date Dennis Marcial MD [address] [place] [address] PCP - General Family Medicine 08/29/18 Iftikhar Sandoval V [address] [place] [address] Referring Internal Medicine 02/14/20 Natacha Conklin MD, [address] [place] [address] Physician Radiation Oncology 03/23/20 Charley Mcnally RN [address] [place] [address] Specialty Automotive Maintenance Technician Hematology/Oncology 07/08/21 Augusta Roberts RN Baler 10/12/21 Carolina Lambert MD Hematology/Oncology 01/04/22 Dam Attendant Relationship Specialty Start Date End Date Dennis Marcial MD [address] [place] [address] PCP - General Family Medicine 08/29/18 Iftikhar Sandoval V [address] [place] [address] Referring Internal Medicine 02/14/20 Natacha Conklin MD, [address] [place] [address] Physician Radiation Oncology 03/23/20 Charley Mcnally, VANDANA [address] [place] [address] Specialty Automotive Maintenance Technician Hematology/Oncology 07/08/21 Augusta Roberts, RN Baler 10/12/21 Carolina Lambert MD Hematology/Oncology 01/04/22 Dam Attendant Relationship Specialty Start Date End Date Dennis Marcial MD [address] [place] [address] PCP - General Family Medicine 08/29/18 Iftikhar Sandoval V [address] [place] [address] Referring Internal Medicine 02/14/20 Natacha Conklin MD, [address] [place] [address] Physician Radiation Oncology 03/23/20 Charley Mcnally RN [address] [place] [address] Specialty Automotive Maintenance Technician Hematology/Oncology 07/08/21 Augusta Roberts, RN Baler 10/12/21 Carolina Lambert MD Hematology/Oncology 01/04/22 Team Status: Inactive Member Role Status Dates Dr. Dennis Marcial MD Primary Care Provider, Referrin g Provider Active Latia Titus LENS GENERATOR, LENS GENERATOR-C Attending Provider Active Team Status: Inactive Member Role Status Dates Dr. Dennis Marcial MD Primary Care Provider Active Dr. Alexandra Baker MD Attending Provider, Referring Provider Active Dam Attendant Relationship Specialty Start Date End Date Dennis Marcial MD [address] [place] [address] PCP - General Family Medicine 08/29/18 Iftikhar Sandoval V [address] [place] [address] Referring Internal Medicine 02/14/20 Natacha Conklin MD, MD [address] [place], [place] [address] Physician Radiation Oncology 03/23/20 Charley Mcnally, VANDANA [address] [place] [address] Specialty Automotive Maintenance Technician Hematology/Oncology 07/08/21 Augusta Roberts, RN Baler 10/12/21 [place] [address] [place], [place] [id number] Hematology/Oncology 11/15/22 Dam Attendant Relationship Specialty Start Date End Date Dennis Marcial MD [address] [place] [address] PCP - General Family Medicine 08/29/18 Iftikhar Sandoval V [address] [place] [address] Referring Internal Medicine 02/14/20 Natacha Conklin MD, [address] [place] [address] Physician Radiation Oncology 03/23/20 Charley Mcnally, VANDANA [address] [place] [address] Specialty Automotive Maintenance Technician Hematology/Oncology 07/08/21 Augusta Roberts, RN Baler 10/12/21 [place] [address] [place], [place] [id number] Hematology/Oncology 11/15/22 Dam Attendant Relationship Specialty Start Date End Date Dennis Marcial MD [address] [place] [address] PCP - General Family Medicine 08/29/18 Iftikhar Sandoval V [address] [place] [address] Referring Internal Medicine 02/14/20 Natacha Conklin MD, [address] [place] [address] Physician Radiation Oncology 03/23/20 Charley Mcnally, VANDANA [address] [place] [address] Specialty Automotive Maintenance Technician Hematology/Oncology 07/08/21 Augusta Roberts, VANDANA Baler 10/12/21 [place] [address] [place], [place] [id number] Hematology/Oncology 11/15/22 Dam Attendant Relationship Specialty Start Date End Date Dennis Marcial MD [address] [facility] [facility] [place] [address] PCP - General Family Medicine 08/29/18 Iftikhar Sandoval V [address] [place] [address] Referring Internal Medicine 02/14/20 Natacha Conklin MD, MD [address] [place] [address] Physician Radiation Oncology 03/23/20 Charley Mcnally, RN [address] [place] [address] Specialty Automotive Maintenance Technician Hematology/Oncology 07/08/21 Augusta Roberts, VANDANA Baler 10/12/21 [place] [address] [place] [address] Hematology/Oncology 11/15/22 Dam Attendant Relationship Specialty Start Date End Date Dennis Marcial MD [address] [place] [address] PCP - General Family Medicine 08/29/18 Iftikhar Sandoval V [address] [place] [address] Referring Internal Medicine 02/14/20 Natacha Conklin MD, MD [address] [place] [address] Physician Radiation Oncology 03/23/20 Charley Mcnally, RN [address] [place] [address] Specialty Automotive Maintenance Technician Hematology/Oncology 07/08/21 Augusta Roberts, VANDANA Baler 10/12/21 [place] [address] [place], [place] [phone] Hematology/Oncology 11/15/22 Dam Attendant Relationship Specialty Start Date End Date Dennis Marcial MD [address] [facility] [address] PCP - General Family Medicine 08/29/18 Iftikhar Sandoval V [address] [place] [address] Referring Internal Medicine 02/14/20 Natacha Conklin MD, [address] [place] [address] Physician Radiation Oncology 03/23/20 Charley Mcnally, VANDANA [address] [place] [address] Specialty Automotive Maintenance Technician Hematology/Oncology 07/08/21 Shane Steward MD [address] [place] [address] Hematology/Oncology 12/09/22 Dam Attendant Relationship Specialty Start Date End Date Dennis Marcial MD [address] [facility] [address] PCP - General Family Medicine 08/29/18 Iftikhar Sandoval V [address] [place] [address] Referring Internal Medicine 02/14/20 Natacha Conklin MD, [address] [place] [address] Physician Radiation Oncology 03/23/20 Charley Mcnally, VANDANA [address] [place] [address] Specialty Automotive Maintenance Technician Hematology/Oncology 07/08/21 Shane Steward MD [address] [place] [address] Hematology/Oncology 12/09/22 Dam Attendant Relationship Specialty Start Date End Date Dennis Marcial MD [address] [facility] [place] [address] PCP - General Family Medicine 08/29/18 Iftikhar Sandoval V [address] [place] [address] Referring Internal Medicine 02/14/20 Natacha Conklin MD, [address] [place] [address] Physician Radiation Oncology 03/23/20 Charley Mcnally RN [address] [place] [address] Specialty Automotive Maintenance Technician Hematology/Oncology 07/08/21 Shane Steward MD [address] [place] [address] Hematology/Oncology 12/09/22 Dam Attendant Relationship Specialty Start Date End Date Dennis Marcial MD [address] [facility] [place] [address] PCP - General Family Medicine 08/29/18 Iftikhar Sandoval V [address] [place] [address] Referring Internal Medicine 02/14/20 Natacha Conklin MD, [address] [place] [address] Physician Radiation Oncology 03/23/20 Charley Mcnally, VANDANA [address] [place] [address] Specialty Automotive Maintenance Technician Hematology/Oncology 07/08/21 Shane Steward MD [address] [place] [address] Hematology/Oncology 12/09/22 Kenney Holder [address] [place] [address] Orthopedics 12/30/22 Alexandra Baker [address] [place] [address] Rheumatology 10/19/22 Dam Attendant Relationship Specialty Start Date End Date Dennis Marcial MD [address] [facility] [address] PCP - General Family Medicine 08/29/18 Iftikhar Sandoval V [address] [place] [address] Referring Internal Medicine 02/14/20 Natacha Conklin MD, MD [address] [place] [address] Physician Radiation Oncology 03/23/20 Charley Mcnally, RN [address] [place] [address] Specialty Automotive Maintenance Technician Hematology/Oncology 07/08/21 Shane Steward MD [address] [place] [address] Hematology/Oncology 12/09/22 Kenney Holder [address] [place] [address] Orthopedics 12/30/22 Alexandra Baker [address] [place] [address] Rheumatology 10/19/22 Dam Attendant Relationship Specialty Start Date End Date Dennis Marcial MD [address] [place] [address] PCP - General Family Medicine 08/29/18 Iftikhar Sandoval V [address] [place] [address] Referring Internal Medicine 02/14/20 Natacha Conklin MD, [address] [place] [address] Physician Radiation Oncology 03/23/20 Charley Mcnally RN [address] [place], [place] [address] [phone] Specialty Automotive Maintenance Technician Hematology/Oncology 07/08/21 Shane Steward MD [address] [place] [address] Hematology/Oncology 12/09/22 Kenney Holder [address] [place] [address] Orthopedics 12/30/22 Alexandra Baker [address] [place] [address] Rheumatology 10/19/22 Dam Attendant Relationship Specialty Start Date End Date Dennis Marcial MD [address] [place] [address] PCP - General Family Medicine 08/29/18 Iftikhar Sandoval V [address] [place] [address] Referring Internal Medicine 02/14/20 Natacha Conklin MD, [address] [place] [address] Physician Radiation Oncology 03/23/20 Charley Mcnally RN [address] [place] [address] Specialty Automotive Maintenance Technician Hematology/Oncology 07/08/21 Shane Steward MD [address] [place], [place] 112523 [phone] Hematology/Oncology 12/09/22 Kenney Holder [address] [place] [address] Orthopedics 12/30/22 Alexandra Baker [address] [place] [address] Rheumatology 10/19/22 Dam Attendant Relationship Specialty Start Date End Date Dennis Marcial MD [address] [place], [place] [address]116 PCP - General Family Medicine 08/29/18 Iftikhar Sandoval V [address] [facility] [place] [address] Referring Internal Medicine 02/14/20 Natacha Conklin MD, MD [address] [facility], [place] [address] [phone] Physician Radiation Oncology 03/23/20 Charley Mcnally, RN [address] [facility] [place] [address] Specialty Automotive Maintenance Technician Hematology/Oncology 07/08/21 Shane Steward MD [address] [facility], [place] [address] [phone] Hematology/Oncology 12/09/22 Kenney Holder [address] [place] [address] Orthopedics 12/30/22 Alexandra Baker [address] [place] [address] Rheumatology 10/19/22 Dam Attendant Relationship Specialty Start Date End Date Dennis Marcial MD [address] [place] [address] PCP - General Family Medicine 08/29/18 Iftikhar Sandoval V [address] [place] [address] Referring Internal Medicine 02/14/20 Natacha Conklin MD, [address] [place] [address] Physician Radiation Oncology 03/23/20 Charley Mcnally, VANDANA [address] [place] [address] Specialty Automotive Maintenance Technician Hematology/Oncology 07/08/21 Shane Steward MD [address] [place] [address] Hematology/Oncology 12/09/22 Kenney Holder [address] [place] [address] Orthopedics 12/30/22 Alexandra Baker [address] [place] [address] Rheumatology 10/19/22 Dam Attendant Relationship Specialty Start Date End Date Dennis Marcial MD [address] [place] [address] PCP - General Family Medicine 08/29/18 Iftikhar Sandoval V [address] [place] [address] Referring Internal Medicine 02/14/20 Natacha Conklin MD, [address] [place] [address] Physician Radiation Oncology 03/23/20 Charley Mcnally, VANDANA [address] [place] [address] Specialty Automotive Maintenance Technician Hematology/Oncology 07/08/21 Shane Steward MD [address] [place] [address] Hematology/Oncology 12/09/22 Kenney Holder [address] [place] [address] Orthopedics 12/30/22 Alexandra Baker [address] [place] [address] Rheumatology 10/19/22 Dam Attendant Relationship Specialty Start Date End Date Dennis Marcial MD [address] [place] [address] PCP - General Family Medicine 08/29/18 Iftikhar Sandoval V [address] [place] [address] Referring Internal Medicine 02/14/20 Natacha Conklin MD, [address] [place] [address] Physician Radiation Oncology 03/23/20 Charley Mcnally RN [address] [place] [address] Specialty Automotive Maintenance Technician Hematology/Oncology 07/08/21 Shane Steward MD [address] [place] [address] Hematology/Oncology 12/09/22 Kenney Holder [address] [place] [address] Orthopedics 12/30/22 Alexandra Baker [address] [place] [address] Rheumatology 10/19/22 Dam Attendant Relationship Specialty Start Date End Date Dennis Marcial MD [address] [place] [address] PCP - General Family Medicine 08/29/18 Iftikhar Sandoval V [address] [facility] [place] [address] Referring Internal Medicine 02/14/20 Natacha Conklin MD, [address] [place] [address] Physician Radiation Oncology 03/23/20 Charley Mcnally RN [address] [place] [address] Specialty Automotive Maintenance Technician Hematology/Oncology 07/08/21 Shane Steward MD [address] [place] [address] Hematology/Oncology 12/09/22 Kenney Holder [address] [place] [address] Orthopedics 12/30/22 Alexandra Baker [address] [place] [address] Rheumatology 10/19/22 Dam Attendant Relationship Specialty Start Date End Date Dennis Marcial MD [address] [place] [address] PCP - General Family Medicine 08/29/18 Iftikhar Sandoval V [address] [place] [address] Referring Internal Medicine 02/14/20 Natacha Conklin MD, MD [address] [place] [address] Physician Radiation Oncology 03/23/20 Charley Mcnally, VANDANA [address] [place] [address] Specialty Automotive Maintenance Technician Hematology/Oncology 07/08/21 Shane Steward MD [address] [place] [address] Hematology/Oncology 12/09/22 Kenney Holder [address] [place] [address] Orthopedics 12/30/22 Alexandra Baker [address] [place] [address] Rheumatology 10/19/22 Oscar Mireles MD [address] [place], [place] [address] Pulmonary and Critical Care Medicine 01/27/23 Lesley Mayer, QUALITY ENGINEER MEDICAL DEVICE [address] [place] [address] Enterprise Sales Person Nurse Practitioner 11/09/22 Dam Attendant Relationship Specialty Start Date End Date Dennis Marcial MD [address] [place], [place] 803836 PCP - General Family Medicine 08/29/18 Iftikhar Sandoval V [address] [facility] [place] [address] Referring Internal Medicine 02/14/20 Natacha Conklin MD, MD [address] [place] [address] Physician Radiation Oncology 03/23/20 Charley Mcnally, VANDANA [address] [place] [address] Specialty Automotive Maintenance Technician Hematology/Oncology 07/08/21 Shane Steward MD [address] [place] [address] Hematology/Oncology 12/09/22 Kenney Holder [address] [place] [address] Orthopedics 12/30/22 Alexandra Baker [address] [facility] [address] [place] [address] Rheumatology 10/19/22 Oscar Mireles MD [address] [place], [place] [address]4746[address] Pulmonary and Critical Care Medicine 01/27/23 Lesley Mayer, QUALITY ENGINEER MEDICAL DEVICE [address] [place] [address] Enterprise Sales Person Nurse Practitioner 11/09/22 Dam Attendant Relationship Specialty Start Date End Date Dennis Marcial MD [address] [place] [address] PCP - General Family Medicine 08/29/18 Iftikhar Sandoval V [address] [facility] [place] [address] Referring Internal Medicine 02/14/20 Natacha Conklin MD, [address] [place] [address] Physician Radiation Oncology 03/23/20 Charley Mcnally, VANDANA [address] [place] [address] Specialty Automotive Maintenance Technician Hematology/Oncology 07/08/21 Augusta Roberts, VANDANA Baler 10/12/21 12/08/22 [place] [address] [place], [place] 1992336 Hematology/Oncology 11/15/22 12/08/22 Shane Steward MD [address] [place], [place] [address] Hematology/Oncology 12/09/22 Kenney Holder [address] [place] [address] Orthopedics 12/30/22 Alexandra Baker [address] [place] [address] Rheumatology 10/19/22 Oscar Mireles MD [address] [place], [place] 96[address] Pulmonary and Critical Care Medicine 01/27/23 Lesley Mayer, QUALITY ENGINEER MEDICAL DEVICE [address] [place] [address] Enterprise Sales Person Nurse Practitioner 11/09/22 Dam Attendant Relationship Specialty Start Date End Date Dennis Marcial MD [address] [place] [address] PCP - General Family Medicine 08/29/18 Iftikhar Sandoval V [address] [facility] [place] [address] Referring Internal Medicine 02/14/20 Natacha Conklin MD, MD [address] [place], [place] [address]91 Physician Radiation Oncology 03/23/20 Charley Mcnally, VANDANA [address] [place] [address] Specialty Automotive Maintenance Technician Hematology/Oncology 07/08/21 Shane Steward MD [address] [place], [place] [address] Hematology/Oncology 12/09/22 Kenney Holder [address] [place] [address] Orthopedics 12/30/22 Alexandra Baker [address] [place] [address] Rheumatology 10/19/22 Oscar Mireles MD [address] [place], [place] [address] Pulmonary and Critical Care Medicine 01/27/23 Lesley Mayer, QUALITY ENGINEER MEDICAL DEVICE [address] [place] [address] Enterprise Sales Person Nurse Practitioner 11/09/22 Dam Attendant Relationship Specialty Start Date End Date Dennis Marcial MD [address] [place] [address] PCP - General Family Medicine 08/29/18 Iftikhar Sandoval V [address] [place] [place] [address] Referring Internal Medicine 02/14/20 Natacha Conklin MD, MD [address] [place] [address] Physician Radiation Oncology 03/23/20 Charley Mcnally, VANDANA [address] [place] [address] Specialty Automotive Maintenance Technician Hematology/Oncology 07/08/21 Shane Steward MD [address] [place], [place] [address]671 Hematology/Oncology 12/09/22 Kenney Holder [address] [place] [address] Orthopedics 12/30/22 Alexandra Baker [address] [facility] [address] [place] [address] Rheumatology 10/19/22 Oscar Mireles MD [address] [place], [place] [address] Pulmonary and Critical Care Medicine 01/27/23 Lesley Mayer, QUALITY ENGINEER MEDICAL DEVICE 55683 [facility] [address] [place] [address] Enterprise Sales Person Nurse Practitioner 11/09/22 Dam Attendant Relationship Specialty Start Date End Date Dennis Marcial MD [address] [place] [address] PCP - General Family Medicine 08/29/18 Iftikhar Sandoval V [address] [facility] [place] [address] Referring Internal Medicine 02/14/20 Natacha Conklin MD, [address] [place], [place] 374731 Physician Radiation Oncology 03/23/20 Charley Mcnally, VANDANA [address] [place] [address] Specialty Automotive Maintenance Technician Hematology/Oncology 07/08/21 Augusta Roberts, RN Baler 10/12/21 12/08/22 Carolina Lambert MD Hematology/Oncology 01/04/22 11/14/22 Dam Attendant Relationship Specialty Start Date End Date Dennis Marcial MD [address] [place] [address] PCP - General Family Medicine 08/29/18 Iftikhar Sandoval V [address] [place] [place] [address] Referring Internal Medicine 02/14/20 Natacha Conklin MD, [address] [place] [address] Physician Radiation Oncology 03/23/20 Charley Mcnally RN [address] [place] [address] Specialty Automotive Maintenance Technician Hematology/Oncology 07/08/21 Shane Steward MD [address] [place] [address] Hematology/Oncology 12/09/22 Kenney Holder [address] [place] [address] Orthopedics 12/30/22 Alexandra Baker [address] [place] [address] Rheumatology 10/19/22 Oscar Mireles MD [address] [place] [address] Pulmonary and Critical Care Medicine 01/27/23 Lesley Mayer, QUALITY ENGINEER MEDICAL DEVICE [address] [facility] [address] [place] [address] Enterprise Sales Person Nurse Practitioner 11/09/22 Dam Attendant Relationship Specialty Start Date End Date Dennis Marcial MD [address] [place] [address] PCP - General Family Medicine 08/29/18 Iftikhar Sandoval V [address] [facility] [place] [address] Referring Internal Medicine 02/14/20 Natacha Conklin MD, [address] [place] [address] Physician Radiation Oncology 03/23/20 Charley Mcnally, RN [address] [place] [address] Specialty Automotive Maintenance Technician Hematology/Oncology 07/08/21 Shane Steward MD [address] [place] [address] Hematology/Oncology 12/09/22 Kenney Holder [address] [facility] [address] [place] [address] Orthopedics 12/30/22 Alexandra Baker [address] [place] [address] Rheumatology 10/19/22 Oscar Mireles MD [address] [place] [address] Pulmonary and Critical Care Medicine 01/27/23 Lesley Mayer, QUALITY ENGINEER MEDICAL DEVICE [address] [place] [address] Enterprise Sales Person Nurse Practitioner 11/09/22 Dam Attendant Relationship Specialty Start Date End Date Dennis Marcial MD [address] [place] [address] PCP - General Family Medicine 08/29/18 Iftikhar [place]oval V [address] [facility] [address] Referring Internal Medicine 02/14/20 Natacha Conklin MD, MD [address] [place] [address] Physician Radiation Oncology 03/23/20 Charley Mcnally, VANDANA [address] [place] [address] Specialty Automotive Maintenance Technician Hematology/Oncology 07/08/21 Shane Steward MD [address] [place], [place] [address] Hematology/Oncology 12/09/22 Kenney Holder [address] [facility] [address] [place] [address] Orthopedics 12/30/22 Alexandra Baker [address] [place] [address] Rheumatology 10/19/22 Oscar Mireles MD [address] [place] [address] Pulmonary and Critical Care Medicine 01/27/23 Lesley Mayer, QUALITY ENGINEER MEDICAL DEVICE [address] [place] [address] Enterprise Sales Person Nurse Practitioner 11/09/22 Dam Attendant Relationship Specialty Start Date End Date Dennis Marcial MD [address] [place] [address] PCP - General Family Medicine 08/29/18 Iftikhar Sandoval V [address] [facility] [place] [address] Referring Internal Medicine 02/14/20 Natacha Conklin MD, MD [address] [place] [address] Physician Radiation Oncology 03/23/20 Charley Mcnally, VANDANA [address] [place] [address] Specialty Automotive Maintenance Technician Hematology/Oncology 07/08/21 Shane Steward MD [address] [place] [address] Hematology/Oncology 12/09/22 Kenney Holder [address] [place] [address] Orthopedics 12/30/22 Alexandra Baker [address] [facility] [address] [place] [address] Rheumatology 10/19/22 Oscar Mireles MD [address] [place] [address] Pulmonary and Critical Care Medicine 01/27/23 Lesley Mayer, QUALITY ENGINEER MEDICAL DEVICE 88[address] [facility] [address] [place] [address] Enterprise Sales Person Nurse Practitioner 11/09/22 Dam Attendant Relationship Specialty Start Date End Date Dennis Marcial MD [address] [place] [address] PCP - General Family Medicine 08/29/18 Iftikhar Sandoval V [address] [place] [address] Referring Internal Medicine 02/14/20 Natacha Conklin MD [address] [place] [address] Physician Radiation Oncology 03/23/20 Charley Mcnally, VANDANA [address] [place] [address] Specialty Automotive Maintenance Technician Hematology/Oncology 07/08/21 Shane Steward MD [address] [place] [address] Hematology/Oncology 12/09/22 Kenney Holder [address] [place] [address] Orthopedics 12/30/22 Alexandra Baker [address] [place] [address] Rheumatology 10/19/22 Oscar Mireles MD [address] [place] [place] 225141 Pulmonary and Critical Care Medicine 01/27/23 Lesley Mayer, QUALITY ENGINEER MEDICAL DEVICE 16505 [facility] [address] [place] [address] Enterprise Sales Person Nurse Practitioner 11/09/22 Dam Attendant Relationship Specialty Start Date End Date Dennis Marcial MD [address] [place] [address] PCP - General Family Medicine 08/29/18 Iftikhar [place]oval V [address] [facility] [place] [address] Referring Internal Medicine 02/14/20 Natacha Conklin MD [address] [place] [address] Physician Radiation Oncology 03/23/20 Charley Mcnally, VANDANA [address] [place] [address] Specialty Automotive Maintenance Technician Hematology/Oncology 07/08/21 Shane Steward MD [address] [place] [address] Hematology/Oncology 12/09/22 Kenney Holder [address] [place] [address] Orthopedics 12/30/22 Alexandra Baker [address] [place] [address] Rheumatology 10/19/22 Oscar Mireles MD [address] [place] [address] Pulmonary and Critical Care Medicine 01/27/23 Lesley Mayer, QUALITY ENGINEER MEDICAL DEVICE [address] [facility] [address] [place] [address] Enterprise Sales Person Nurse Practitioner 11/09/22 Dam Attendant Relationship Specialty Start Date End Date Dennis Marcial MD [address] [place] [address] PCP - General Family Medicine 08/29/18 Iftikhar Sandoval V [address] [facility] [place] [address] Referring Internal Medicine 02/14/20 Natacha Conklin MD [address] [place] [address] Physician Radiation Oncology 03/23/20 Charley Mcnally, VANDANA [address], [place] [address] Specialty Automotive Maintenance Technician Hematology/Oncology 07/08/21 Shane Steward MD [address] [place], [place] 561213 [phone] Hematology/Oncology 12/09/22 Kenney Holder [address] [place] [address] Orthopedics 12/30/22 Bogdanlance Alexandra Shruti [address] [place] [address] Rheumatology 10/19/22 Oscar Mireles MD [address] [facility] [address] [place], [place] [phone] Pulmonary and Critical Care Medicine 01/27/23 Lesley Mayer, QUALITY ENGINEER MEDICAL DEVICE [address] [place] [address] Enterprise Sales Person Nurse Practitioner 11/09/22 Dam Attendant Relationship Specialty Start Date End Date Dennis Marcial MD [address] [place] [address] PCP - General Family Medicine 08/29/18 Iftikhar Sandoval V [address] [facility] [place] [address] Referring Internal Medicine 02/14/20 Natacha Conklin MD [address] [place] [address] Physician Radiation Oncology 03/23/20 Charley Mcnally, VANDANA [address] [facility] [place] [address] Specialty Automotive Maintenance Technician Hematology/Oncology 07/08/21 Shane Steward MD [address] [place] [address] Hematology/Oncology 12/09/22 Kenney Holder [address] [place] [address] Orthopedics 12/30/22 Samuel Alexandra Shruti [address] [place] [address] Rheumatology 10/19/22 Oscar Mireles MD [address] [place], [place] 6[address]25691 Pulmonary and Critical Care Medicine 01/27/23 Lesley Mayer, QUALITY ENGINEER MEDICAL DEVICE 23935 [facility] [address] [place] [address] Enterprise Sales Person Nurse Practitioner 11/09/22 Dam Attendant Relationship Specialty Start Date End Date Dennis Marcial MD [address] [place] [address] PCP - General Family Medicine 08/29/18 Iftikhar [place] V [address] [facility] [place] [place] [address] Referring Internal Medicine 02/14/20 Natacha Conklin MD [address] [place], [place] [id number] Physician Radiation Oncology 03/23/20 Charley Mcnally, VANDANA [address] [place], [place] [phone] Specialty Automotive Maintenance Technician Hematology/Oncology 07/08/21 Shane Steward MD [address] [place], [place] 332261 Hematology/Oncology 12/09/22 Kenney Holder [address] [facility] [address] [place] [address]30[address]7127 Orthopedics 12/30/22 Alexandra Baker [address] [place] [address]9078691[address]7127 Rheumatology 10/19/22 Oscar Mireles MD [address] [place], [place] [id number] Pulmonary and Critical Care Medicine 01/27/23 Lesley Mayer, QUALITY ENGINEER MEDICAL DEVICE 61319 [facility] [address] [place] [address] Enterprise Sales Person Nurse Practitioner 11/09/22 Dam Attendant Relationship Specialty Start Date End Date Dennis Marcial MD [address] [place], [place] [address]1016 PCP - General Family Medicine 08/29/18 Iftikhar Sandoval V [address] [facility] [place] [address] Referring Internal Medicine 02/14/20 Natacha Conklin MD [address] [place], [place] [phone] Physician Radiation Oncology 03/23/20 Charley Mcnally, VANDANA [address] [place], [place] 378781 Specialty Automotive Maintenance Technician Hematology/Oncology 07/08/21 Shane Steward MD [address] [facility] [address] [place], [place] [address]551 Hematology/Oncology 12/09/22 Kenney Holder [address] [place] [address] Orthopedics 12/30/22 Alexandra Baker [address] [place] [address] Rheumatology 10/19/22 Oscar Mireles MD [address] [facility] [place] 758551 Pulmonary and Critical Care Medicine 01/27/23 Lesley Mayer, QUALITY ENGINEER MEDICAL DEVICE [address] [facility] [address] [place] [address] Enterprise Sales Person Nurse Practitioner 11/09/22 Dam Attendant Relationship Specialty Start Date End Date Dennis Marcial MD [address] [place] [address] PCP - General Family Medicine 08/29/18 Iftikhar Sandoval V [address] [facility] [place] [address] Referring Internal Medicine 02/14/20 Natacha Conklin MD [address] [place], [place] [phone] Physician Radiation Oncology 03/23/20 Charley Mcnally, RN [address] [place], [place] [address]858[address] Specialty Automotive Maintenance Technician Hematology/Oncology 07/08/21 Shane Steward MD [address] [facility] [address] [place] [address] Hematology/Oncology 12/09/22 Kenney Holder [address] [place] [address] Orthopedics 12/30/22 Alexandra Baker [address] [place] [address] Rheumatology 10/19/22 Oscar Mireles MD [address] [place], [place] 9[address]161 Pulmonary and Critical Care Medicine 01/27/23 Lesley Mayer, QUALITY ENGINEER MEDICAL DEVICE [address] [place] [address] [place] [address] Enterprise Sales Person Nurse Practitioner 11/09/22 Dam Attendant Relationship Specialty Start Date End Date Dennis Marcial MD [address] [place] [address] PCP - General Family Medicine 08/29/18 Iftikhar Sandoval V [address] [facility] [place] [address] Referring Internal Medicine 02/14/20 Natacha Conklin MD [address] [place], [place] 36[address] Physician Radiation Oncology 03/23/20 Charley Mcnally, VANDANA [address] [place], [place] [address]365[address] Specialty Automotive Maintenance Technician Hematology/Oncology 07/08/21 Shane Steward MD [address] [place], [place] [address]40[address] Hematology/Oncology 12/09/22 Kenney Holder [address] [place] [address]-3[address]691[address] Orthopedics 12/30/22 Alexandra Baker [address] [place] [address]-1212691-7127 Rheumatology 10/19/22 Oscar Mireles MD [address] [place], [place] [address] Pulmonary and Critical Care Medicine 01/27/23 Lesley Mayer, QUALITY ENGINEER MEDICAL DEVICE [address] [facility] [address] [place] [address] Enterprise Sales Person Nurse Practitioner 11/09/22 Dam Attendant Relationship Specialty Start Date End Date Dennis Marcial MD [address] [place] [address] PCP - General Family Medicine 08/29/18 Iftikhar Sandoval V [address] [place] [address] Referring Internal Medicine 02/14/20 Natacha Conklin MD [address] [place], [place] 047731 Physician Radiation Oncology 03/23/20 Charley Mcnally, VANDANA [address] [place], [place] 756251 Specialty Automotive Maintenance Technician Hematology/Oncology 07/08/21 Shane Steward MD [address] [place], [place] 077351 Hematology/Oncology 12/09/22 Kenney Holder [address] [facility] [address] [place] [address] Orthopedics 12/30/22 Alexandra Baker [address] [facility] [address] [place] [address]-6479691-7127 Rheumatology 10/19/22 Oscar Mireles MD [address] [place], [place] 99555691 Pulmonary and Critical Care Medicine 01/27/23 Lesley Mayer, QUALITY ENGINEER MEDICAL DEVICE 07693 [facility] [address] [place] [address] Enterprise Sales Person Nurse Practitioner 11/09/22 Dam Attendant Relationship Specialty Start Date End Date Dennis Marcial MD [address] [place] [address] PCP - General Family Medicine 08/29/18 Iftikhar Sandoval V [address] [facility] [place] [address] Referring Internal Medicine 02/14/20 Natacha Conklin MD [address] [place] [address] Physician Radiation Oncology 03/23/20 Charley Mcnally, RN [address], [place] [phone] Specialty Automotive Maintenance Technician Hematology/Oncology 07/08/21 Shane Steward MD [address] [facility] [place] [address] Hematology/Oncology 12/09/22 Kenney Holder [address] [place] [address] Orthopedics 12/30/22 Alexandra Baker [address] [facility] [address] [place] [address] Rheumatology 10/19/22 Oscar Mireles MD [address] [facility] 675231 Pulmonary and Critical Care Medicine 01/27/23 Lesley Mayer, QUALITY ENGINEER MEDICAL DEVICE 35665 [facility] [address] [place] [address] Enterprise Sales Person Nurse Practitioner 11/09/22 Dam Attendant Relationship Specialty Start Date End Date Dennis Marcial MD [address] [place] [address] PCP - General Family Medicine 08/29/18 Iftikhar Sandoval V [address] [facility] [place] [address]94[address]691[address]1248 Referring Internal Medicine 02/14/20 Natacha Conklin MD [address], [place] 12863691 Physician Radiation Oncology 03/23/20 Charley Mcnally, RN [address] [facility], [place] 43675691 Specialty Automotive Maintenance Technician Hematology/Oncology 07/08/21 Shane Steward MD [address] [facility] 316241 Hematology/Oncology 12/09/22 Kenney Holder [address] [place] [address] Orthopedics 12/30/22 Alexandra Baker [address] [place] [address] Rheumatology 10/19/22 Oscar Mireles MD [address] 729851 Pulmonary and Critical Care Medicine 01/27/23 Lesley Mayer, QUALITY ENGINEER MEDICAL DEVICE 16789 [facility] [address] [place] [address] Enterprise Sales Person Nurse Practitioner 11/09/22 Dam Attendant Relationship Specialty Start Date End Date Dennis Marcial MD [address] [place] [address] PCP - General Family Medicine 08/29/18 Iftikhar Sandoval V [address] [facility] [place] [place] [address] Referring Internal Medicine 02/14/20 Natacha Conklin MD [address] [place], [place] 017371 Physician Radiation Oncology 03/23/20 Charley Mcnally, RN [address] [place], [place] 34452691 Specialty Automotive Maintenance Technician Hematology/Oncology 07/08/21 Shane Steward MD [address] [place], [place] [address]024691 Hematology/Oncology 12/09/22 Kenney Holder [address] [place] [address] Orthopedics 12/30/22 Alexandra Baker [address] [facility] [address] [place] [address] Rheumatology 10/19/22 Oscar Mireles MD [address] [place], [place] 53954691 Pulmonary and Critical Care Medicine 01/27/23 Lesley Mayer, QUALITY ENGINEER MEDICAL DEVICE 88631 [facility] [address] [place] [address] Enterprise Sales Person Nurse Practitioner 11/09/22 Dam Attendant Relationship Specialty Start Date End Date Dennis aMrcial MD [address] [place] [address] PCP - General Family Medicine 08/29/18 Iftikhar Sandoval V [address] [facility] [place] [address] Referring Internal Medicine 02/14/20 Natacha Conklin MD [address] [place] [address] Physician Radiation Oncology 03/23/20 Charley Mcnally RN [address] [place] [address] Specialty Automotive Maintenance Technician Hematology/Oncology 07/08/21 Augusta Roberts, VANDANA Baler 10/12/21 12/08/22 Carolina Lambert MD Hematology/Oncology 01/04/22 11/14/22 Dam Attendant Relationship Specialty Start Date End Date Dennis Marcial MD [address] [place] [address] PCP - General Family Medicine 08/29/18 Iftikhar [place]oval V [address] [place] [address] Referring Internal Medicine 02/14/20 Natacha Conklin MD [address] [place] [address] Physician Radiation Oncology 03/23/20 Charley Mcnally RN [address] [place] [address] Specialty Automotive Maintenance Technician Hematology/Oncology 07/08/21 Shane Steward MD [address] [place] [address] Hematology/Oncology 12/09/22 Kenney Holder [address] [facility] [address] [place] [address] Orthopedics 12/30/22 Alexandra Baker [address] [place] [address] Rheumatology 10/19/22 Oscar Mireles MD [address] [place], [place] 494721 Pulmonary and Critical Care Medicine 01/27/23 Lesley Mayer, QUALITY ENGINEER MEDICAL DEVICE [address] [place] [address] [place] [address] Enterprise Sales Person Nurse Practitioner 11/09/22 Dam Attendant Relationship Specialty Start Date End Date Dennis Marcial MD [address] [place], [place] 643436 PCP - General Family Medicine 08/29/18 Iftikhar Sandoval V [address] [place] [address]-4200691[address]1248 Referring Internal Medicine 02/14/20 Natacha Conklin MD [address] [place] [address] Physician Radiation Oncology 03/23/20 Charley Mcnally, VANDANA [address] [place] [address] Specialty Automotive Maintenance Technician Hematology/Oncology 07/08/21 Shane Steward MD [address] [place] [address] Hematology/Oncology 12/09/22 Kenney Holder [address] [place] [address] Orthopedics 12/30/22 Alexandra Baker [address] [facility] [address] [place] [address] Rheumatology 10/19/22 Oscar Mireles MD [address] [place] [address] Pulmonary and Critical Care Medicine 01/27/23 Lesley Mayer, QUALITY ENGINEER MEDICAL DEVICE 33325 [facility] [address] [address] [place] [address] Enterprise Sales Person Nurse Practitioner 11/09/22 Dam Attendant Relationship Specialty Start Date End Date Dennis Marcial MD [address] [place] [address] PCP - General Family Medicine 08/29/18 Iftikhar Sandoval V [address] [place] [address] Referring Internal Medicine 02/14/20 Natacha Conklin MD [address] [place] [address] Physician Radiation Oncology 03/23/20 Charley Mcnally, VANDANA [address] [place] [address] Specialty Automotive Maintenance Technician Hematology/Oncology 07/08/21 Shane Steward MD [address] [place] [address] Hematology/Oncology 12/09/22 Kenney Holder [address] [place] [address] Orthopedics 12/30/22 Alexandra Baker [address] [place] [address] Rheumatology 10/19/22 Oscar Mireles MD [address] [place] 792391 Pulmonary and Critical Care Medicine 01/27/23 Lesley Mayer, QUALITY ENGINEER MEDICAL DEVICE 37552 [facility] [address] [place] [address] Enterprise Sales Person Nurse Practitioner 11/09/22 Dam Attendant Relationship Specialty Start Date End Date Dennis Marcial MD [address] [place] [address] PCP - General Family Medicine 08/29/18 Iftikhar [place] V [address] [facility] [place] [address]1248 Referring Internal Medicine 02/14/20 Natacha Conklin MD [address] [place] [address] Physician Radiation Oncology 03/23/20 Charley Mcnally, VANDANA [address] [place] [address] Specialty Automotive Maintenance Technician Hematology/Oncology 07/08/21 Shane Steward MD [address] [place] [address] Hematology/Oncology 12/09/22 Kenney Holder [address] [place] [address] Orthopedics 12/30/22 Alexandra Baker [address] [place] [address] Rheumatology 10/19/22 Oscar Mireles MD [address] [place] [address] Pulmonary and Critical Care Medicine 01/27/23 Lesley Mayer, QUALITY ENGINEER MEDICAL DEVICE 14457 [facility] [address] [place] [address] Enterprise Sales Person Nurse Practitioner 11/09/22 Dam Attendant Relationship Specialty Start Date End Date Dennis Marcial MD [address] [place] [address] PCP - General Family Medicine 08/29/18 Iftikhar [place] V [address] [facility] [place] [address] Referring Internal Medicine 02/14/20 Natacha Conklin MD [address] [place] [address] Physician Radiation Oncology 03/23/20 Charley Mcnally, VANDANA [address], [place] 43247691 Specialty Automotive Maintenance Technician Hematology/Oncology 07/08/21 Shane Steward MD [address] [place], [place] 481552 [phone] Hematology/Oncology 12/09/22 Kenney Holder [address] [place] [address]-0545691[address] Orthopedics 12/30/22 Bogdanlance Alexandra Shruti [address] [place] [address] Rheumatology 10/19/22 Oscar Mireles MD [address] [facility] [place], [place] [address]91 Pulmonary and Critical Care Medicine 01/27/23 Lesley Mayer, QUALITY ENGINEER MEDICAL DEVICE [address] [place] [address] [place] [address] Enterprise Sales Person Nurse Practitioner 11/09/22 Dam Attendant Relationship Specialty Start Date End Date Dennis Marcial MD [address] [place] [address] PCP - General Family Medicine 08/29/18 Iftikhar Sandoval V [address] [facility] [place] [address]48 Referring Internal Medicine 02/14/20 Natacha Conklin MD [address] [place] [address] Physician Radiation Oncology 03/23/20 Charley Mcnally, VANDANA [address] [facility] [place] [address] Specialty Automotive Maintenance Technician Hematology/Oncology 07/08/21 Shane Steward MD [address] [place] [address] Hematology/Oncology 12/09/22 Kenney Holder [address] [place] [address]-7426[address] Orthopedics 12/30/22 Samuel Alexandra Shruti [address] [place] [address]-9556691[address] Rheumatology 10/19/22 Oscar Mireles MD [address] [place], [place] 88726691 Pulmonary and Critical Care Medicine 01/27/23 Lesley Mayer, QUALITY ENGINEER MEDICAL DEVICE 67439 [facility] [address] [place] [address] Enterprise Sales Person Nurse Practitioner 11/09/22 Dam Attendant Relationship Specialty Start Date End Date Dennis Marcial MD [address] [place] [address] PCP - General Family Medicine 08/29/18 Iftikhar Sandoval V [address] [facility] [place] [address] Referring Internal Medicine 02/14/20 Natacha Conklin MD [address] [place], [place] 39689691 Physician Radiation Oncology 03/23/20 Charley Mcnally, VANDANA [address] [place], [place] 97108691 Specialty Automotive Maintenance Technician Hematology/Oncology 07/08/21 Shane Steward MD [address] [place], [place] 384971 Hematology/Oncology 12/09/22 Kenney Holder [address]27 [facility] [address] [place] [address]-0290691[address] Orthopedics 12/30/22 Alexandra Baker [address] [place] [address]784[address]91[address] Rheumatology 10/19/22 Oscar Mireles MD [address] [place], [place] 46510691 Pulmonary and Critical Care Medicine 01/27/23 Lesley Mayer, QUALITY ENGINEER MEDICAL DEVICE 71089 [facility] [address] [place] [address] Enterprise Sales Person Nurse Practitioner 11/09/22 Dam Attendant Relationship Specialty Start Date End Date Dennis Marcial MD [address] [place], [place] 858416 PCP - General Family Medicine 08/29/18 Iftikhar Sandoval V [address] [facility] [place] [address] Referring Internal Medicine 02/14/20 Natacha Conklin MD [address] [place], [place] 25701691 Physician Radiation Oncology 03/23/20 Charley Mcnally, VANDANA [address] [place], [place] 587841 Specialty Automotive Maintenance Technician Hematology/Oncology 07/08/21 Shane Steward MD [address] [facility] [address] [place], [place] 350041 Hematology/Oncology 12/09/22 Kenney Holder [address] [place] [address] Orthopedics 12/30/22 Alexandra Baker [address] [place] [address] Rheumatology 10/19/22 Oscar Mireles MD [address] [facility] [place] 940541 Pulmonary and Critical Care Medicine 01/27/23 Lesley Mayer, QUALITY ENGINEER MEDICAL DEVICE [address] [facility] [address] [place] [address] Enterprise Sales Person Nurse Practitioner 11/09/22 Dam Attendant Relationship Specialty Start Date End Date eDnnis Marcial MD [address] [place] [address] PCP - General Family Medicine 08/29/18 Iftikhar [place]oval V [address] [facility] [place] [address]278[address]248 Referring Internal Medicine 02/14/20 Natacha Conklin MD [address] [place], [place] 46314691 Physician Radiation Oncology 03/23/20 Charley Mcnally, RN [address] [place], [place] 99981691 Specialty Automotive Maintenance Technician Hematology/Oncology 07/08/21 Shane Steward MD [address] [facility] [address] [place], [place] 74[address] Hematology/Oncology 12/09/22 Kenney Holder [address] [place] [address] Orthopedics 12/30/22 Alexandra Baker [address] [place] [address] Rheumatology 10/19/22 Oscar Mireles MD [address] [place], [place] 591281 Pulmonary and Critical Care Medicine 01/27/23 Lesley Mayer, QUALITY ENGINEER MEDICAL DEVICE [address] [place] [address] [place] [address] Enterprise Sales Person Nurse Practitioner 11/09/22 Dam Attendant Relationship Specialty Start Date End Date Dennis Marcial MD [address] [place] [address] PCP - General Family Medicine 08/29/18 Iftikhar [place] V [address] [facility] [place] [address] Referring Internal Medicine 02/14/20 Natacha Conklin MD [address] [place], [place] 83336691 Physician Radiation Oncology 03/23/20 Charley Mcnally, VANADNA [address] [place], [place] 51296691 Specialty Automotive Maintenance Technician Hematology/Oncology 07/08/21 Shane Steward MD [address] [place], [place] 82632691 Hematology/Oncology 12/09/22 Kenney Holder [address] [place] [address] Orthopedics 12/30/22 Alexandra Baker [address] [place] [address]-8264[address]7127 Rheumatology 10/19/22 Oscar Mireles MD [address] [place], [place] 19871691 Pulmonary and Critical Care Medicine 01/27/23 Lesley Mayer, QUALITY ENGINEER MEDICAL DEVICE [address] [facility] [address] [place] [address] Enterprise Sales Person Nurse Practitioner 11/09/22 Dam Attendant Relationship Specialty Start Date End Date Dennis Marcial MD [address] [place] [address] PCP - General Family Medicine 08/29/18 Iftikhar [place] V [address] [place] [address] Referring Internal Medicine 02/14/20 Natacha Conklin MD [address] [place], [place] 478261 Physician Radiation Oncology 03/23/20 Charley Mcnally, VANDANA [address] [place], [place] 112921 Specialty Automotive Maintenance Technician Hematology/Oncology 07/08/21 Shane Steward MD [address] [place], [place] 773341 Hematology/Oncology 12/09/22 Kenney Holder [address]27 [facility] [address] [place] [address] Orthopedics 12/30/22 Alexandra Baker 3727 [facility] [address] [place] [address]5513691[address] Rheumatology 10/19/22 Oscar Mireles MD [address] [place], [place] 59049691 Pulmonary and Critical Care Medicine 01/27/23 Lesley Mayer, QUALITY ENGINEER MEDICAL DEVICE 15757 [facility] [address] [place] [address] Enterprise Sales Person Nurse Practitioner 11/09/22 Dam Attendant Relationship Specialty Start Date End Date Dennis Marcial MD [address] [place] [address] PCP - General Family Medicine 08/29/18 Iftikhar [place] V [address] [facility] [place] [address] Referring Internal Medicine 02/14/20 Natacha Conklin MD [address] [place] [address] Physician Radiation Oncology 03/23/20 Charley Mcnally, RN [address] [facility], [place] 19764691 Specialty Automotive Maintenance Technician Hematology/Oncology 07/08/21 Shane Steward MD [address] [facility] [place] [place] [address] Hematology/Oncology 12/09/22 Kenney Holder [address] [place] [address] Orthopedics 12/30/22 Alexandra Baker 3727 [facility] [address] [place] [address] Rheumatology 10/19/22 Oscar Mireles MD [address] 272181 Pulmonary and Critical Care Medicine 01/27/23 Lesley Mayer, QUALITY ENGINEER MEDICAL DEVICE 54674 [facility] [address] [place] [address] Enterprise Sales Person Nurse Practitioner 11/09/22 Dam Attendant Relationship Specialty Start Date End Date Dennis Marcail MD [address] [place] [address] PCP - General Family Medicine 08/29/18 Iftikhar [place] V [address] [facility] [place] [address]12[address] Referring Internal Medicine 02/14/20 Natacha Conklin MD [address] [place], [place] 99693691 Physician Radiation Oncology 03/23/20 Charley Mcnally, RN [address] [facility], [place] 03951691 Specialty Automotive Maintenance Technician Hematology/Oncology 07/08/21 Shane Steward MD [address] [facility] 158261 Hematology/Oncology 12/09/22 Kenney Holder [address] [place] [address] Orthopedics 12/30/22 Alexandra Baker [address] [place] [address] Rheumatology 10/19/22 Oscar Mireles MD [address] [facility] 494251 Pulmonary and Critical Care Medicine 01/27/23 Lesley Mayer, QUALITY ENGINEER MEDICAL DEVICE 17236 [facility] [address] [place] [address] Enterprise Sales Person Nurse Practitioner 11/09/22 Dam Attendant Relationship Specialty Start Date End Date Dennis Marcial MD [address] [place] [address] PCP - General Family Medicine 08/29/18 Iftikhar [place] V [address] [facility] [place] [address] Referring Internal Medicine 02/14/20 Natacha Conklin MD [address] [place], [place] 463191 Physician Radiation Oncology 03/23/20 Charley Mcnally, RN [address] [place], [place] 53326[address] Specialty Automotive Maintenance Technician Hematology/Oncology 07/08/21 Shane Steward MD [address] [place], [place] 87042691 Hematology/Oncology 12/09/22 Kenney Holder [address] [place] [address]-25[address] Orthopedics 12/30/22 Alexandra Baker 3727 [facility] [address] [place] [address]2456[address] Rheumatology 10/19/22 Oscar Mireles MD [address] [place], [place] 28400691 Pulmonary and Critical Care Medicine 01/27/23 Lesley Mayer, QUALITY ENGINEER MEDICAL DEVICE 15135 [facility] [address] [place] [address] Enterprise Sales Person Nurse Practitioner 11/09/22 Dam Attendant Relationship Specialty Start Date End Date Dennis Marcial MD [address] [place] [address] PCP - General Family Medicine 08/29/18 Iftikhar [place] V [address] [facility] [place] [address] Referring Internal Medicine 02/14/20 Natacha Conklin MD [address] [place] [address] Physician Radiation Oncology 03/23/20 Charley Mcnally, VANDANA [address] [place] [place] [address] Specialty Automotive Maintenance Technician Hematology/Oncology 07/08/21 Shane Steward MD [address] [facility] [place] [id number] Hematology/Oncology 12/09/22 Kenney Holder [address] [facility] [address] [place] [phone] Orthopedics 12/30/22 Alexandra Baker [address] [facility] [address] [place] [address] Rheumatology 10/19/22 Oscar Mireles MD [address] [facility], [place] [id number] Pulmonary and Critical Care Medicine 01/27/23 Lesley Mayer, QUALITY ENGINEER MEDICAL DEVICE [address] [facility] [address] [place] [address] Enterprise Sales Person Nurse Practitioner 11/09/22 Dam Attendant Relationship Specialty Start Date End Date Dennis Marcial MD [address] [place] [address] PCP - General Family Medicine 08/29/18 Iftikhar Sandoval V [address] [facility] [place] [phone] Referring Internal Medicine 02/14/20 Natacha Conklin MD [address] [facility] [address] [place], [place] [address] Physician Radiation Oncology 03/23/20 Charley Mcnally, RN [address] [place] [address] Specialty Automotive Maintenance Technician Hematology/Oncology 07/08/21 Shane Steward MD [address] [facility] [place] [address] Hematology/Oncology 12/09/22 Kenney Holder [address] [facility] [address] [place] [address] Orthopedics 12/30/22 Alexandra Baker [address] [facility] [address] [place] [address] Rheumatology 10/19/22 Oscar Mirelse MD [address] [facility], [place] [address] Pulmonary and Critical Care Medicine 01/27/23 Lesley Mayer, QUALITY ENGINEER MEDICAL DEVICE [id number] [address] Enterprise Sales Person Nurse Practitioner 11/09/22 Team Status: Active Member [...] July 22, 2024 End: July 22, 2024 Dam Attendant Relationship Specialty Start Date End Date Dennis Marcial MD [address] [place] [address] PCP - General Family Medicine 08/29/18 Iftikhar Sandoval V [address] [facility] [place] [address] Referring Internal Medicine 02/14/20 Natacha Conklin MD [address] [place] [address] Physician Radiation Oncology 03/23/20 Charley Mcnally, VANDANA [address] [place] [address] Specialty Automotive Maintenance Technician Hematology/Oncology 07/08/21 Shane Steward MD [address] [place] [address] Hematology/Oncology 12/09/22 Kenney Holder [address] [facility] [address] [place] [phone] Orthopedics 12/30/22 Alexandra Baker [address] [place] [address] Rheumatology 10/19/22 Oscar Mireles MD [address] [facility], [place] [phone] Pulmonary and Critical Care Medicine 01/27/23 Lesley Mayer, QUALITY ENGINEER MEDICAL DEVICE [address] [place] [address] Enterprise Sales Person Nurse Practitioner 11/09/22 Dam Attendant Relationship Specialty Start Date End Date Dennis Marcial MD [address] [place] [address] PCP - General Family Medicine 08/29/18 Iftikhar [place] V [address] [facility] [place] [place] [phone] Referring Internal Medicine 02/14/20 Natacha Conklin MD [address] [place] [address] Physician Radiation Oncology 03/23/20 Charley Mcnally, VANDANA [address] [facility] [place] [address] Specialty Automotive Maintenance Technician Hematology/Oncology 07/08/21 Shane Steward MD [address] [facility] [place] [address] Hematology/Oncology 12/09/22 Kenney Holder [address] [place] [phone] Orthopedics 12/30/22 Alexandra Baker [address] [facility] [address] [place] [address] Rheumatology 10/19/22 Oscar Mireles MD [address] [place], [place] [address] Pulmonary and Critical Care Medicine 01/27/23 Lesley Mayer, QUALITY ENGINEER MEDICAL DEVICE [address] [facility] [address] [place] [address] Enterprise Sales Person Nurse Practitioner 11/09/22 Team Status: Inactive Member Role Status Dates Dr. Dennis Marcial MD Primary Care Provider Active Start: August 29, 2024 End: August 29, 2024 Dr. Alexandra Baker MD Attending Provider Active Start: August 29, 2024 End: August 29, 2024 Dr. Alexandra Baker MD Referring Provider Active Start: August 29, 2024 End: August 29, 2024 Team Status: Inactive Member Role Status Dates Dr. Dennis Marcial MD Primary Care Provider Active Start: October 21, 2024 End: October 21, 2024 Dr. Alexandra Baker MD Attending Provider Active Start: October 21, 2024 End: October 21, 2024 Dr. Alexandra Baker MD Referring Provider Active Start: October 21, 2024 End: October 21, 2024 Dam Attendant Relationship Specialty Start Date End Date Dennis Marcial MD [address] [place] [address] PCP - General Family Medicine 08/29/18 Iftikhar [place] V [address] [place] [address] Referring Internal Medicine 02/14/20 Natacha Conklin MD [address] [facility] [address] [place], [place] [address] Physician Radiation Oncology 03/23/20 Charley Mcnally, RN [address] [place] [address] Specialty Automotive Maintenance Technician Hematology/Oncology 07/08/21 Shane Steward MD [address] [place] [address] Hematology/Oncology 12/09/22 Kenney Holedr [address] [place] [address] Orthopedics 12/30/22 Alexandra Baker [address] [place] [address] Rheumatology 10/19/22 Oscar Mireles MD [address] [place], [place] [address] Pulmonary and Critical Care Medicine 01/27/23 Lesley Mayer, QUALITY ENGINEER MEDICAL DEVICE [address] [address] Enterprise Sales Person Nurse Practitioner 11/09/22 Team Status: Active Member Role/Relationship Status Dates Dr. Dennis Marcial MD Primary Care Provider Active Team Status: Inactive Member Role/Relationship Status Dates Dr. Dennis Marcial MD Primary Care Provider Active Start: August 29, 2024 End: August 29, 2024 Dr. Alexandra Baker MD Attending Provider Active Start: August 29, 2024 End: August 29, 2024 Dr. Alexadnra Baker MD Referring Provider Active Start: August 29, 2024 End: August 29, 2024 Team Status: Inactive Member Role/Relationship Status Dates Dr. Dennis Marcial MD Primary Care Provider Active Start: October 21, 2024 End: October 21, 2024 Dr. Alexandra Baker MD Attending Provider Active Start: October 21, 2024 End: October 21, 2024 Dr. Alexandra Baker MD Referring Provider Active Start: October 21, 2024 End: October 21, 2024 Team Status: Inactive Member Role/Relationship Status Dates Dr. Dennis Marcial MD Primary Care Provider Active Start: November 26, 2024 End: November 26, 2024 Dr. Dennis Marcial MD Referring Provider Active Start: November 26, 2024 End: November 26, 2024 Dr. Jacky Garcias MD Attending Provider Active Start: November 26, 2024 End: November 26, 2024 Dam Attendant Relationship Specialty Start Date End Date Dennis Marcial MD [address] [place] [address] PCP - General Family Medicine 08/29/18 Iftikhar [place] V [address] [facility] [address] Referring Internal Medicine 02/14/20 Natacha Conklin MD [address] [place] [address] Physician Radiation Oncology 03/23/20 Charley Mcnally, VANDANA [address] [place] [address] Specialty Automotive Maintenance Technician Hematology/Oncology 07/08/21 Shane Steward MD [address] [place] [address] Hematology/Oncology 12/09/22 Kenney Holder [address] [facility] [address] [place] [address] Orthopedics 12/30/22 Alexandra Baker [address] [place] [address] Rheumatology 10/19/22 Oscar Mireles MD [address] [place] [address] Pulmonary and Critical Care Medicine 01/27/23 Lesley Mayer, QUALITY ENGINEER MEDICAL DEVICE [address] [facility] [address] [place] [address] Enterprise Sales Person Nurse Practitioner 11/09/22 Dam Attendant Relationship Specialty Start Date End Date Dennis Marcial MD [address] [place] [address] PCP - General Family Medicine 08/29/18 Iftikhar [place] V [address] [facility] [place] [address] Referring Internal Medicine 02/14/20 Natacha Conklin MD [address] [place] [address] Physician Radiation Oncology 03/23/20 Charley Mcnally, VANDANA [address] [place] [address] Specialty Automotive Maintenance Technician Hematology/Oncology 07/08/21 Shane Steward MD [address] [place] [address] Hematology/Oncology 12/09/22 Kenney Holder [address] [place] [address] Orthopedics 12/30/22 Alexandra Baker [address] [place] [address] Rheumatology 10/19/22 Oscar Mireles MD [address] [place], [place] [address] Pulmonary and Critical Care Medicine 01/27/23 Lesley Mayer, QUALITY ENGINEER MEDICAL DEVICE [address] [facility] [address] [place] [address] Enterprise Sales Person Nurse Practitioner 11/09/22 Jacky Garcias [address] [place], [place] [address] Manager Meat Cardiology 11/26/24 Dam Attendant Relationship Specialty Start Date End Date Dennis Marcial MD [address] [place] [address] PCP - General Family Medicine 08/29/18 Iftikhar [place] V [address] [facility] [address] Referring Internal Medicine 02/14/20 Natacha Conklin MD [address] [place], [place] [address] Physician Radiation Oncology 03/23/20 Charley Mcnally, VANDANA [address] [place], [place] [phone] Specialty Automotive Maintenance Technician Hematology/Oncology 07/08/21 Shane Steward MD [address] [place], [place] [id number] Hematology/Oncology 12/09/22 Kenney Holder [address] [place] [phone] Orthopedics 12/30/22 Alexandra Baker [address] [place] [address] Rheumatology 10/19/22 Oscar Mireles MD [address] [place], [place] [id number] Pulmonary and Critical Care Medicine 01/27/23 Lesley Mayer, QUALITY ENGINEER MEDICAL DEVICE [address] [place] [address] Enterprise Sales Person Nurse Practitioner 11/09/22 Jacky Garcias [address] [place], [place] [id number] Manager Meat Cardiology 11/26/24 Goals (unrecognized section and content) Goals may [...] section and content) DATE CREATED AUTHOR 11/23/2021 [facility] DATE CREATED AUTHOR AUTHOR'S ORGANIZ ATION 06/19/2023 [facility] DATE CREATED AUTHOR AUTHOR'S ORGANIZ ATION 10/29/2024 [facility] DATE CREATED AUTHOR AUTHOR'S ORGANIZ ATION 11/28/2024 [facility] DATE CREATED AUTHOR AUTHOR'S ORGANMARY ANN ATJERMAINE 01/05/2025 [facility] Administered Medications - up to 3 most [...] BE BASED ON THE PRIMARY CLINICAL RECORDS. [employer] provides no warranty or guarantee of the accuracy or completeness of information in this document.
[2025-01-15 10:26] LABS: Hematocrit 36.3 % (37-47); Hemoglobin 11.4 g/dL (12.0-15.0); Immature Granulocytes Count 0.020 X10^3/uL (0.0-0.0); Mean Corp Hgb Conc 31.4 g/dL (32-36); Mean Corpuscular Volume 94.0 fL (81-99); Mean Platelet Vol. 10.9 fl (6.2-12.0); NRBC Flagged by Analyzer 0 % (0-5); Platelet Count 237 K/mm3 (150-450); RBC Distribution Width CV 14.1 % (11.6-14.6); RBC Distribution Width SD 48.2 fl (35.1-43.9); Red Blood Count 3.86 M/mm3 (4.2-5.4); White Blood Count 4.2 K/mm3 (4.4-11.0)
[2025-01-15 10:46] LABS: AST(SGOT) 26 U/L (<=31); Alanine Aminotransfer ALT/SGPT 15 U/L (<=34); Albumin, Serum 3.8 g/dL (3.4-4.8); Alkaline Phosphatase 144 U/L (35-104); Anion Gap 11 (5-15); BUN 18 mg/dL (4-19); BUN/Creat Ratio 17.1 RATIO (10-20); Calcium,Total 9.2 mg/dL (7.6-11.0); Carbon Dioxide 25.4 mmol/L (21.0-32.0); Chloride 105 mmol/L (98-108); Globulin 3.0 g/dL (2.2-4.2); Glucose 80 mg/dL (70-99); Potassium 3.9 mmol/L (3.3-5.1)
== END | disposition home or self-care (01) ==
LOC: MTLAB 07:05
PROVIDERS: PCP Family Medicine; Referring Provider Internal Medicine Rheumatology; Visit Provider Internal Medicine Rheumatology
DX: M06.4 Inflammatory polyarthropathy (principal); Z79.899 Other long term (current) drug therapy; M79.7 Fibromyalgia
CPT/HCPCS: 36415; 80053; 85025

== ENCOUNTER → 2025-04-16 | Outpatient (CLI) | payer MEDICARE, OTHER, SELFPAY ==
[2025-04-16 12:25] LABS: Hematocrit 34.8 % (37-47); Hemoglobin 11.4 g/dL (12.0-15.0); Immature Granulocytes Count 0.010 X10^3/uL (0.0-0.0); Mean Corp Hgb Conc 32.8 g/dL (32-36); Mean Corpuscular Volume 92.1 fL (81-99); Mean Platelet Vol. 10.6 fl (6.2-12.0); NRBC Flagged by Analyzer 0 % (0-5); Platelet Count 241 K/mm3 (150-450); RBC Distribution Width CV 13.6 % (11.6-14.6); RBC Distribution Width SD 45.7 fl (35.1-43.9); Red Blood Count 3.78 M/mm3 (4.2-5.4); White Blood Count 4.7 K/mm3 (4.4-11.0)
[2025-04-16 12:59] LABS: AST(SGOT) 29 U/L (<=31); Alanine Aminotransfer ALT/SGPT 19 U/L (<=34); Albumin, Serum 3.8 g/dL (3.4-4.8); Alkaline Phosphatase 124 U/L (35-104); Anion Gap 12 (5-15); BUN 21 mg/dL (4-19); BUN/Creat Ratio 18.4 RATIO (10-20); Calcium,Total 9.4 mg/dL (7.6-11.0); Carbon Dioxide 25.5 mmol/L (21.0-32.0); Chloride 104 mmol/L (98-108); Globulin 3.1 g/dL (2.2-4.2); Glucose 93 mg/dL (70-99); Potassium 3.9 mmol/L (3.3-5.1)
== END | disposition home or self-care (01) ==
LOC: MTLAB 10:23
PROVIDERS: PCP Family Medicine; Referring Provider Internal Medicine Rheumatology; Visit Provider Internal Medicine Rheumatology
DX: M06.4 Inflammatory polyarthropathy (principal); Z79.899 Other long term (current) drug therapy; M79.7 Fibromyalgia
CPT/HCPCS: 36415; 80053; 85025